=== PATIENT | male | born 1980 | race Caucasian/White ===

== ENCOUNTER → 2024-06-20 | Outpatient (CLI) | payer OTHER, SELFPAY ==
[2024-06-20 15:20] LABS: Absolute Neutrophil Count 1.8 X10^3/uL (2.0-7.7); Basophil# 0.05 X10^3/uL; Basophil% 1.4 % (0-1); Eosinophil# 0.27 X10^3/uL; Eosinophils% 7.5 % (0-5); Hematocrit 34.4 % (40-54); Hemoglobin 10.4 g/dL (13.0-16.5); Mean Corp Hgb Conc 30.2 g/dL (32-36); Mean Corpuscular Hgb 25.7 pg (27.0-32.0); Mean Corpuscular Volume 84.9 fL (80-94); Mean Platelet Vol. 10.5 fl (6.2-12.0); Monocyte% 16.7 % (0-10); NRBC Flagged by Analyzer 0 % (0-5); Neutrophil # 1.77 X10^3/uL (2.7-7.7); Neutrophil % 49.1 % (47-70); POSITIVE COUNT YES; Platelet Count 61 K/mm3 (150-450); RBC Distribution Width CV 18.6 % (11.6-14.6); RBC Distribution Width SD 56.8 fl (35.1-43.9); Red Blood Count 4.05 M/mm3 (4.6-6.2); White Blood Count 3.6 K/mm3 (4.4-11.0)
[2024-06-20 15:22] LABS: Differential Indicated SCAN CRITERIA MET
[2024-06-20 15:46] LABS: ALB/GLOB Ratio 0.5 RATIO (0.9-2.4); AST(SGOT) 51 U/L (15-37); Alanine Aminotransfer ALT/SGPT 38 U/L (16-61); Albumin, Serum 2.4 g/dL (3.2-5.0); Alkaline Phosphatase 130 U/L (45-117); Anion Gap 9 (5-15); BUN 6 mg/dL (7-18); BUN/Creat Ratio 10.8 RATIO (10-20); Calcium,Total 8.5 mg/dL (8.5-10.1); Chloride 106 mmol/L (98-107); Cholesterol 118 mg/dL (200); Creatinine, Serum 0.56 mg/dL (0.70-1.30); EST Glomerular Filtration Rate 168 mL/min (>60); Est Glom Filt Rate - Afr Amer 203 mL/min (>60); Globulin 4.4 g/dL (2.2-4.2); Glucose 107 mg/dL (74-106); High Density Lipoprotein 37 mg/dL; Potassium 3.4 mmol/L (3.5-5.1); Protein, Total 6.8 g/dL (6.4-8.2); Sodium Level 138 mmol/L (136-145); Triglycerides 98 mg/dL; Very Low Density Lipoprotein 20 mg/dL (5-40)
[2024-06-20 16:01] LABS: Differential Comment SCANNED
[2024-06-20 16:38] LABS: Hemoglobin A1c 6.6 % (3.8-5.6)
== END | disposition home or self-care (01) ==
LOC: MFPLAB 11:36
PROVIDERS: PCP Family Medicine; Visit Provider Family Medicine
DX: I87.8 Other specified disorders of veins (principal); E11.9 Type 2 diabetes mellitus without complications
CPT/HCPCS: 36415; 80053; 80061; 83036; 85025

== ENCOUNTER → 2025-04-29 | Outpatient (CLI) | payer BC, SELFPAY ==
[2025-04-29 12:41] LABS: Potassium 4.1 mmol/L (3.3-5.1)
== END | disposition home or self-care (01) ==
LOC: MFPLAB 10:56
PROVIDERS: PCP Family Medicine; Referring Provider Family Medicine; Visit Provider Family Medicine
DX: E87.6 Hypokalemia (principal)
CPT/HCPCS: 36415; 84132

== ENCOUNTER → 2025-07-19 | Outpatient (CLI) | payer BC, SELFPAY ==
--- NOTE | 2025-07-19 13:49 | VDLE_ITS ---
Reason For Study Reason For Study: Right leg pain RIGHT GSV is normal. CFV is compressible, spontaneous, phasic, competent and demonstrates normal augmentation. FV is compressible, spontaneous, phasic, competent and demonstrates normal augmentation. POP V is compressible, spontaneous, phasic, competent and demonstrates normal augmentation. T/P Trunk is compressible. PTV is compressible. RT PerV is compressible. Calf veins visualized in segments. Procedure This is a venous duplex using B-mode, color flow and spectral Doppler. Exam performed in department. Technically difficult to visualize calf veins due to patient body habitus. A preliminary report was called and/or faxed to Nadine ARGUETA. VL/Venous Duplex US, Unilateral Interpretation Summary Deep veins of the right lower extremity are patent and compressible segmentally . There is no evidence of right lower extremity deep vein thrombosis. Valvular competence appears intact within the p roximal deep venous system on the right . The right great saphenous vein appears patent and compressible segmentally. Ordering Physician: Yusef Mccoy Referring Physician: Alis Mace Performed By: Isabel Ruvalcaba RVT
[2025-07-19 16:32] LABS: D-Dimer Quantitative (DVT/PE) 2.09 FEU/ug/m (0.27-0.49)
== END | disposition home or self-care (01) ==
LOC: CVS 13:01
PROVIDERS: PCP Family Medicine
DX: M79.604 Pain in right leg (principal)
CPT/HCPCS: 36415; 85379; 93971

== ENCOUNTER 2025-07-21 09:08 | Inpatient (IN) | payer BC, SELFPAY ==
[2025-07-21] VITALS (9 sets, daily range): BP systolic 123–151; BP diastolic 49–63; PULSE 86–106; RESP 15–22; TEMP 36.9–37.6; O2SAT 91–99; BMI 54.1; BMI 52.0
--- NOTE | 2025-07-21 09:27 | EKG12_ITS ---
Test Reason : GENERAL Blood Pressure : */* mmHG Vent. Rate : 101 BPM Atrial Rate : 101 BPM P-R Int : 162 ms QRS Dur : 82 ms QT Int : 370 ms P-R-T Axes : 71 4 82 degrees QTcB Int : 479 ms Sinus tachycardia Nonspecific T wave abnormality Abnormal ECG Confirmed by Viet Henley ([id number]), market editor CARLITOS MORGAN ([id number]) on 07/22/2025 9:49:19 AM Referred By: Confirmed By: Viet Henley
--- NOTE | 2025-07-21 09:27 | CT_ITS ---
PROCEDURE: CTA CHEST W/WO CONTRAST 07/21/2025 REASON FOR EXAM: SOB, ELEVATED DIMER TECHNIQUE: Procedure Code: [id number] Modality: CT Procedure: CTA CHEST W/WO CONTRAST Multiplanar Sagittal and Coronal images were obtained. CONTRAST: Isovue 370 VOLUME: 100 mL One or more dose reduction techniques were used (e.g., Automated exposure control, adjustment of the mA and/or kV according to patient size, use of iterative reconstruction technique). RADIATION DOSE SUMMARY: CTDlvol: 62 mGy DLP: 1140 mGycm COMPARISON: None. # of known CTs in the past 12 months: 0 # of known Cardiac Nuclear Medicine Studies in the past 12 months: 0 FINDINGS: Thyroid gland: Negative. Lungs: Scattered ground-glass attenuation interstitial prominence both lungs. No pulmonary nodules or masses. Pleura: Negative for pleural effusion or pneumothorax. Airways: Imaged bronchi and trachea negative. Mediastinum: Several upper limits of normal aortopulmonary window lymph node. Subcarinal fullness 13 mm. No definitive hilar lesion. Lymph nodes: No axillary adenopathy. Heart and Vasculature: Pulmonary arteries adequately opacify with intra luminal contrast. No thrombus. Heart normal size. Negative for vascular calcifications of the thoracic aorta. Coronary Artery Calcifications: Mild vascular calcifications of the coronary arteries Upper Abdomen: Cirrhosis of the liver which is nodular and shrunken. Small amount of ascites. Hardware: None. Bones: Age-appropriate degenerative changes of the thoracic spine. CT/CTA Chest W/WO Contrast IMPRESSION: Negative for pulmonary embolus.. Mild interstitial edema. Mild mediastinal adenopathy. Cirrhosis. Reading Location: [id number]
--- OUTSIDE RECORDS SUMMARY | 2025-07-21 09:31 | XMS RPT_ITS | CCD ---
Author Organization [facility] Care Team Providers Care Roentgenologist Name Role Phone HUGO BNirav JNirav Referring Unavailable POMARIESNTS B. JNirav Attending Unavailable SHOZACK HOWE Primary Care Unavailable Zack Vigil MD Primary Care Provider Lala VILLALOBOS Attending Unavailable YAAKOVNTS B. JNirav Admitting Unavailable ZACK VIGIL Primary Care Unavailable Unavailable Primary Care Provider UnavailPAUL Blanton Attending Unavailab le SHOZACK HOWE Primary Care Unavailable Zack Vigil MD Primary Care Provider Zack Vigil MD Primary Care Provider Zack Vigil MD Primary Care Provider [phone] THOM ONEILL Referring Unavailable ZACK VIGIL Primary Care Unavailable TAD [id number], TAD OCHOA Attending Un available TAD [phone], TAD OCHOA Referring Un available SHOZACK HOWE Primary Care Unavailable VINCENT MOSES Attending Unavailable GAIBLEJONAS Referring Unavailable SHOAPSZACK Primary Care Unavailable Zack Vigil MD Primary Care Provider JOCELYNE TRACEY Attending Unavailable SHOZACK HOWE Primary Care Unavailable CARLOS JIMÉNEZ Referring Unavailable BISHOP LA Referring Unavailable SHOZACK HOWE Primary Care Unavailable BERNABE DOOLEY Attending Unavailable SHOZACK HOWE Primary Care Unavailable Zack Vigil MD Primary Care Provider Roland Chavez Unavailable Thom Oneill MD Unavailable ZACK VIGIL Attending Unavailable SHOAPSZACK Attending Unavailable SHOAPS, ZACK Attending Unavailable TESSIE, GOMEZ Attending Unavailable GOMEZ KURTZ Referring Unavailable MUSA, ZACK Attending Unavailable MUSA, ZACK Referring Unavailable Rk SANCHEZ, Fiona Unavailable Unavailgrover Mace MD, Alis Primary Care Provider Alis Mace MD Referring Provider Dr. Lorie Willson MD Attending Provider Alis Mace MD Attending Provider Alis Mace Primary Care Unavailable Lorie Willson Attending Unavailable Alis Mace Referring Unavailable Nakita, Alis Primary Care Unavailable Alis Mace Referring Unavailable Alis Mace Attending Unavailable Nakita, Alis Attending Unavailable Nakita, Alis Primary Care Unavailable Allergies Allergy Classification Reported Allergen(s) Allergy Type Date of Onset Reaction(s) Facility (2 sources) Spironolactone; Translations: [SPIRONOLACTONE] Drug Allergy 10-14-2023 [facility] Medications Current Medications Medication Drug Class(es) Dates Sig (Normalized) Sig (Original) atenolol 25 mg oral tablet (9 sources) beta-Adrenergic Apolinar Start: 08-24-2023 End: 12-08-2024 take 1 tablet by mouth once daily atenolol (Tenormin) 25 MG tablet Indications: Primary hypertension Take 1 tablet by mouth 1 time each day. 90 tablet 3 12/09/2023 12/08/2024 Active Start: 04-14-2022 End: 10-11-2022 take 1 tablet by mouth once daily atenoloL (TENORMIN) 25 mg tablet Take 1 tablet (25 mg total) by mouth 1 (one) time each day. 30 each 5 04/14/2022 Active diclofenac sodium 75 mg delayed release oral tablet (1 source) Nonsteroidal Anti-inflammatory Drug Start: 10-12-2023 take 1 tablet by mouth twice daily diclofenac sodium 75 mg tablet,delayed release take 1 tablet by oral route 2 times every day 75 MG - Active Diltiazem 10mg/Lidocaine 50mg Suppository 30 supp suppository (1 source) Start: 01-28-2025 Diltiazem 10mg/Lidocaine 50mg Suppository 30 supp suppository Active 0 RC .BID January 28, 2025 12:00am 10 mg diltiazem/ lidocaine 50% suppository rectally BID; diltiazem HCl (bulk) powder 300 mg; lidocaine (bulk) powder 1500 mg; Per 30 supp docusate sodium 100 mg oral capsule (1 source) Start: 04-22-2021 End: 04-29-2021 take 1 capsule by mouth twice daily docusate sodium (COLACE) 100 MG capsule Take 1 (one) capsule (100 mg total) by mouth 2 (two) times a day Stool softener Can get [id number] for 7 days . 14 capsule 0 04/22/2021 04/29/2021 Active ertugliflozin 15 mg oral tablet (9 sources) Start: 09-26-2023 take 1 tablet by mouth once daily Steglatro 15 mg tablet TAKE 1 TABLET BY MOUTH EVERY DAY FOR 90 DAYS - Active take 1 tablet by love th once daily in the morning ertugliflozin (Steglatro) 15 mg tablet T chon 15 mg by mouth 1 (one) time each day in the morning. 0 Active ertugliflozin (S teglatro) 5 mg Tab Indications: type 2 diabetes mellitus Take 5 mg by mouth every morning Reasons: type 2 diabetes mellitus. 0 Active ezetimibe 10 mg oral tablet (2 sources) Dietary Cholesterol Absorption Inhibitor Start: 08-09-2023 take 1 tablet by mouth once daily ezetimibe 10 mg tablet TAKE 1 TABLET BY MOUTH EVERY DAY FOR 90 DAYS - Active furosemide 40 mg oral tablet (12 sources) Loop Diuretic Start: 01-28-2025 take 1 tablet by mouth once daily Furosemide 40 mg tablet Active 40 mg PO daily January 28, 2025 12:00am Start: 07-02-2023 End: 10-08-2024 take 1 tablet by mouth once daily furosemide (Lasix) 20 MG tablet Indications: Essential (primary) hypertension Take 1 tablet by mouth 1 time each day. 90 tablet 3 10/14/2023 10/08/2024 Active Start: 04-14-2022 End: 04-14-2022 take 20 mg by mouth once daily 20 mg, oral, Daily, Fir st dose on Tue04/14/22 at 0900 Start: 03-17-2016 furosemide (LA SIX) 40 MG tablet daily with lunch . 0 03/17/2016 Active hydroCHLOROthiazide 25 mg / triamterene 37.5 mg oral tablet (10 sources) Potassium-sparing Diuretic, Thiazide Diuretic Start: 10-02-2023 triamterene 37.5 mg-hydrochlorothiazide 25 mg tablet - Active Start: 10-02-2023 take 1 tablet by love th once daily triamterene-hydrochlorothiazide (Maxzide -25) 37.5-25 MG tablet Take 1 tablet by mouth 1 time each day. 10/02/2023 Active Start: 04-14-2022 End: 04-14-2022 take 1 capsule by mouth once daily at lunch 1 capsule, oral, Daily with lunch, First dose on Tue04/14/22 at 1200 triamterene-hydr oCHLOROthiazide (MAXZIDE-25) 37.5-25 mg per tablet Take 1 tablet by mouth 1 (one) time each day. Hold am DOS 4-5 0 Active hydrOXYzine hydrochloride 25 mg oral tablet (9 sources) Antihistamine Start: 04-14-2022 End: 05-14-2022 take 1 tablet by mouth twice daily for anxiety hydrOXYzine HCL (ATARAX) 25 mg tablet Take 1 tablet (25 mg total) by mouth 2 (two) times a day if needed for anxiety. 30 each 0 04/14/2022 Active lisinopril 5 mg oral tablet (1 source) Angiotensin Converting Enzyme Inhibitor Start: 01-28-2025 take 1 tablet by mouth once daily Lisinopril 5 mg tablet Active 5 mg PO daily January 28, 2025 12:00am metFORMIN hydrochloride 1000 mg oral tablet (12 sources) Biguanide Start: 01-28-2025 take 1 tablet by mouth twice daily Metformin 1,000 mg tablet Active 1000 mg PO TWICE A DAY January 28, 2025 12:00am Start: 04-16-2022 End: 10-08-2024 take 1 tablet by mouth at mealtime metFORMIN (Glucophage) 1000 MG tablet Indications: Type 2 diabetes mellitus without complication, without long-term current use of insulin (CMS/HCC) ([facility]) Take 1 tablet by mouth in the morning. Take with meals. 90 tablet 3 10/14/2023 10/08/2024 Active Start: 04-16-2022 take 1 tablet by love th twice daily at mealtime metFORMIN (GLUCOPHAGE) 1,000 mg tablet Take 1 tablet (1,000 mg total) by mouth 2 (two) times a day with meals. Hold for [address] scan 0 04/16/2022 Active Start: 01-11-2016 End: 04-14-2022 metFORMIN (GLUCOPHAGE) 1000 MG tablet 2 (two) times a day with meals . 0 01/11/2016 Active Multiple Vitamins-Minerals ( One A Day Mens VitaCraves) chewable tablet (1 source) Multiple Vitamin s-Minerals (One A Day Mens VitaCraves) chewable tablet Chew 1 tablet 1 time each day. Active multivit-minerals/folic acid (ONE-A-DAY MEN VITACRAVES ORAL) (7 sources) take 1 capsule by mouth once daily in the morning multivit-minerals/folic acid (ONE-A-DAY MEN VITACRAVES ORAL) Take 1 capsule by mouth 1 (one) time each day in the morning. 0 Active take 1 capsule by mouth once nikole ly multivit-minerals/folic acid (ONE-A-DAY MEN VITACRAVES ORAL) Take 1 capsule by mouth 1 (one) time each day. 0 Active multivitamin (multivitamin) per tablet (1 source) take 1 tablet by mouth once daily multivitamin (multivitamin) per tablet Take 1 tablet by mouth daily . 0 Active omeprazole 40 mg delayed release oral capsule (10 sources) Proton Pump Inhibitor Start: take 1 capsule by mouth once daily 30 minutes before breakfast omeprazole 40 mg capsule,delayed release TAKE 1 CAPSULE BY MOUTH ONCE A DAY 30 MINUTES BEFORE BREAKFAST - Active 24 hr oxybutynin chloride 5 mg extended release oral tablet (1 source) Cholinergic Muscarinic Antagonist Start: 024 End: take 1 tablet by mouth once daily oxybutynin XL (Ditropan XL) 5 MG 24 hr tablet Indications: Overactive bladder Take 1 tablet by mouth 1 time each day. Do not crush, chew, or split. 30 tablet 11 11/22/2023 11/21/2024 Active oxyCODONE hydrochloride 5 mg oral tablet (2 sources) Opioid Agonist Start: End: 06-16-2 021 take 1 tablet by mouth every six hours as needed for pain oxyCODONE (ROXICODONE) 5 MG immediate release tablet Indications: Post-op pain Take 1 (one) tablet (5 mg total) by mouth every 6 (six) hours as needed (Post-operative pain) 7 days . 15 tablet 0 04/22/2021 04/29/2021 Active Start: 04-22-2021 End: 04-22-2021 oxyCODONE (ROXICODONE) 10 mg /0.5 mL concentrated solution 5 mg potassium chloride 20 meq extended release oral tablet (12 sources) Start: 01-28-2025 take 1 tablet by mouth once daily Potassium Chloride 20 mEq tablet extended release Active 20 meq PO daily January 28, 2025 12:00am Start: 07-02-2023 End: 10-13-2024 take 1 tablet by mouth once daily potassium chloride CR (K-Tab) 20 MEQ ER tablet Indications: Essential (primary) hypertension Take 1 tablet by mouth 1 time each day. 90 tablet 3 10/14/2023 10/13/2024 Active Start: 04-14-2022 End: 04-14-2022 20 mEq, oral, Daily, First d ose on Tue04/14/22 at 0900 Best given with food and plenty of water to minimize gastric irritation. Tablet may be swallowed whole (do not crush/chew/suck on) OR broken in half and each half swallowed separately OR dissolved (whole tablet) in ~4 ounces of water (allow ~2 minutes to dissolve, stir well and administer immediately). Start: 03-17-2016 potassium chlo ride (MICRO-K) 10 MEQ CR capsule 10 mEq daily with lunch . 0 03/17/2016 Active promethazine hydrochloride 25 mg oral tablet (6 sources) Phenothiazine End: 12-21-2022 promethazine (Phenergan) 25 MG tablet Take 25 mg by mouth if needed. Active sertraline 50 mg oral tablet (6 sources) Serotonin Reuptake Inhibitor Start: 07-30-2023 sertraline 50 mg tablet - Active SITagliptin 100 mg oral tablet (12 sources) Dipeptidyl Peptidase 4 Inhibitor Start: 01-28-2025 take 1 tablet by mouth once daily Sitagliptin Phosphate (Januvia) 100 mg tablet Active 100 mg PO daily January 28, 2025 12:00am Start: 08-24-2023 End: 12-08-2024 take 1 tablet by mouth once daily SITagliptin (Januvia) 100 MG tablet Indications: Type 2 diabetes mellitus without complication, without long-term current use of insulin (CMS/HCC) (HCC) Take 1 tablet by mouth 1 time each day. 90 tablet 3 12/09/2023 12/08/2024 Active Start: 02-01-2016 End: 04-14-2022 take 100 mg by mouth once daily at lunch 100 mg, oral, Daily with lunch, First dose on Tue04/14/22 at 1200 sodium fluoride 0.011 mg/mg toothpaste (1 source) Start: 12-23-2022 sodium fluorid e 1.1 % dental paste USE TWICE A DAY IN THE MORNING AND BEDTIME TOOTH PASTE - Active Completed/Discontinued Medications Medication Drug Class(es) Dates Sig (Normalized) Sig (Original) acetaminophen 325 mg oral tablet (2 sources) Start: 04-13-2022 End: 04-14-2022 take 1 tablet by mouth every six hours as needed 650 mg, oral, Every 6 hours PRN, mild pain, Starting on Tue04/13/22 at 2120 acetaminophen (T ylenol 8 Hour) 650 MG ER tablet Take 2 tablets by mouth if needed. Active [id number] 200 actuat albuterol 0.09 mg/actuat metered dose inhaler (1 source) beta2-Adrenergic Agonist Start: 12-29-2015 End: 04-17-2021 VENTOLIN HFA 90 mcg/actuation inhaler aspirin 325 mg oral tablet (1 source) Platelet Aggregation Inhibitor, Nonsteroidal Anti-inflammatory Drug Start: 04-13-2022 End: 04-13-2022 aspirin tablet 325 mg benzonatate 100 mg oral capsule (1 source) Non-narcotic Antitussive Start: 12-08-2015 End: 04-17-2021 benzonatate (TESSALON) 100 MG capsule calcium chloride 0.0014 meq/ml / potassium chloride 0.004 meq/ml / sodium chloride 0.103 meq/ml / sodium lactate 0.028 meq/ml injectable solution (1 source) Start: 04-22-2021 End: 04-22-2021 lactated Ringers infusion celecoxib 100 mg oral capsule (1 source) Nonsteroidal Anti-inflammatory Drug Start: 04-22-2021 End: 04-22-2021 celecoxib (CELEBREX) capsule 400 mg Start: 04-22-2021 End: 04-22-2021 celecoxib (CELEBREX) capsule 400 mg codeine phosphate 2 mg/ml / guaiFENesin 20 mg/ml oral solution (1 source) Opioid Agonist Start: 01-14-2016 End: 04-17-2021 IOPHEN C-NR 10-100 mg/5 mL syrup famotidine 40 mg oral tablet (1 source) Histamine-2 Receptor Antagonist Start: 03-18-2016 End: 04-17-2021 famotidine (PEPCID) 40 MG tablet 1 ml fentaNYL 0.05 mg/ml injection (1 source) Opioid Agonist Start: 04-22-2021 End: 04-22-2021 25 mcg, Intravenous, Every 5 min PRN, Pain, Starting on Tue04/22/21 at 0744, For 4 doses, PACU (only) [] Do not give more than 100 mcg while in PACU. homatropine methylbromide 0.3 mg/ml / HYDROcodone bitartrate 1 mg/ml oral solution (1 source) Opioid Agonist, Cholinergic Muscarinic Agonist Start: 12-19-2015 End: 04-17-2021 HYDROcodone-homatrop ine (HYCODAN) 5-1.5 mg/5 mL syrup 1 ml hydrALAZINE hydrochloride 20 mg/ml injection (1 source) Arteriolar Vasodilator Start: 04-22-2021 End: 04-22-2021 5 mg, Intravenous, Every 15 min PRN, SBP greater than 160 or DBP greater than 90, Starting on Tue04/22/21 at 0744, For 4 doses, PACU (only) [] Do not give more than 20 mg total. [] Hold for HR greater than 100. [] Administer if labetalol or metoprolol ineffective at maximum dose or not ordered. 0.5 ml HYDROmorphone hydrochloride 1 mg/ml prefilled syringe (1 source) Opioid Agonist Start: 04-22-2021 End: 04-22-2021 0.5 mg, Intravenous, Every 5 min PRN, Pain, Starting on Tue04/22/21 at 0744, For 6 doses, PACU (only) [] Give if fentanyl not effective or not ordered. [] Do not give more than 3 mg total. ibuprofen 800 mg oral tablet (2 sources) Nonsteroidal Anti-inflammatory Drug Start: 11-10-2015 End: 04-17-2021 ibuprofen (ADVIL,MOTRIN) 800 MG tablet End: 04-22-2021 take 1 tablet by mouth every six hours as needed for pain ibuprofen (ADVIL,MOTRIN) 200 MG tablet Indications: pain Take 200 mg by mouth every 6 (six) hours as needed for pain Reasons: pain. 0 04/22/2021 Discontinued (Stop Taking at Discharge) iopamidoL (ISOVUE-370) 76 % injection 100 mL (1 source) Start: 04-13-2022 End: 04-13-2022 iopamidoL (ISOVUE-370) 76 % injection 100 mL 4 ml labetalol hydrochloride 5 mg/ml cartridge (1 source) beta-Adrenergic Apolinar Start: 04-22-2021 End: 04-22-2021 5 mg, Intravenous, Every 5 min PRN, SBP greater than 160 or DBP greater than 90, Starting on Tue04/22/21 at 0744, For 4 doses, PACU (only) [] Do not give more than 20 mg total. [] Hold for HR less than 50. naloxone (NARCAN) injection 0.1 mg (1 source) Start: 04-22-2021 End: 04-22-2021 naloxone (NARCAN) injection 0.1 mg 2 ml ondansetron 2 mg/ml injection (1 source) Serotonin-3 Receptor Antagonist Start: 04-22-2021 End: 04-22-2021 4 mg, Intravenous, Every 15 min PRN, nausea, vomiting, Starting on Tue04/22/21 at 0744, For 2 doses, PACU (only) Do not give more than 2 doses. Administer first as needed for nausea/vomiting, or as directed by anesthesia ondansetron ODT (ZOFRAN-ODT) dispersible tablet 4 mg (1 source) Start: 04-13-2022 End: 04-14-2022 ondansetron ODT (ZOFRAN-ODT) dispersible tablet 4 mg pantoprazole 40 mg delayed release oral tablet (1 source) Proton Pump Inhibitor Start: 04-14-2022 End: 04-14-2022 take 40 mg by mouth once daily before breakfast 40 mg, oral, Every morning before breakfast, First dose on Tue04/14/22 at 0700 Do not crush, chew, or split. perflutren lipid microsphere (DEFINITY) 1.3 mL in sodium chloride 8.7 mL injection (1 source) Start: 04-14-2022 End: 04-14-2022 perflutren lipid microsphere (DEFINITY) 1.3 mL in sodium chloride 8.7 mL injection predniSONE 10 mg oral tablet (1 source) Start: 12-29-2015 End: 04-17-2021 predniSONE (DELTASONE) 10 MG tablet 1000 ml sodium chloride 9 mg/ml injection (4 sources) Start: 02-16-2023 End: 02-20-2023 sodium chloride 0.9 % infusion Start: 12-23-2022 End: 12-27-2022 sodium chloride 0.9 % infusi on Start: 10-27-2022 End: 10-31-2022 sodium chloride 0.9 % infusi on Start: 10-27-2022 End: 10-27-2022 sodium chloride 0.9 % infusi on - ADS Override Pull sulfamethoxazole 800 mg / trimethoprim 160 mg oral tablet (1 source) Dihydrofolate Reductase Inhibitor Antibacterial, Sulfonamide Antimicrobial Start: 03-17-2016 End: 04-17-2021 sulfamethoxazole-trimethopri m (BACTRIM DS,SEPTRA DS) 800-160 mg per tablet Problems Active Problems Problem Classification Problem Date Documented Da te Episodic/Chronic Abdominal pain (1 source) Right upper quadrant pain; Translations: [Right upper quadrant pain] Onset: 1 03-15-2021 Episodic Anal and rectal conditions (2 sources) Anal fissure; Translations: [Anal fissure, unspecified] 01-30-2025 Episodic Anxiety disorders (3 sources) Anxiety; Translations: [Anxiety disorder, unspecified] Onset: 2 11-22-2023 Chronic Coagulation and hemorrhagic disorders (3 sources) Thrombocytopenic disorder; Translations: [Thrombocytopenia, unspecified] Onset: 0 11-22-2023 Chronic Diabetes mellitus without complication (5 sources) Type 2 diabetes mellitus without complication; Translations: [Type 2 diabetes mellitus without complications] Onset: 0 03-22-2024 Chronic Disorders of lipid metabolism (4 sources) Hyperlipidemia; Translations: [Hyperlipidemia, unspecified] Onset: 0 03-22-2024 Chronic Esophageal disorders (8 sources) Esophageal varices without bleeding; Translations: [Esophageal varices without bleeding] Onset: 0 Resolved: 4 Chronic Essential hypertension (5 sources) Essential hypertension; Translations: [Essential (primary) hypertension] Onset: 0 03-22-2024 Chronic Fluid and electrolyte disorders (1 source) Hypokalemia; Translations: [Hypokalemia] Onset: 5 Episodic Gastrointestinal hemorrhage (2 sources) Bleeding esophageal varices; Translations: [Esophageal varices with bleeding] Onset: 2 Chronic Gastrointestinal hemorrhage (1 source) Rectal hemorrhage; Translations: [Hemorrhage of anus and rectum] 01-28-2025 Episodic Genitourinary symptoms and ill-defined conditions (2 sources) Painless hematuria; Translations: [Hematuria, unspecified] Onset: 3 09-25-2023 Episodic Hemorrhoids (1 source) Hemorrhoids; Translations: [Unspecified hemorrhoids] 01-28-2025 Episodic Hepatitis (5 sources) Nonalcoholic steatohepatitis; Translations: [Nonalcoholic steatohepatitis (GLASS)] Onset: 0 Chronic Other diseases of bladder and urethra (2 sources) Overactive bladder; Translations: [Overactive bladder] Onset: 4 11-22-2023 Chronic Other diseases of bladder and urethra (1 source) Overactive bladder; Translations: [Overactive bladder] Onset: 4 Chronic Other liver diseases (2 sources) Cirrhosis of liver; Translations: [Unspecified cirrhosis of liver] Onset: 0 03-22-2024 Chronic Other liver diseases (2 sources) Unspecified cirrhosis of liver; Translations: [Unspecified cirrhosis of liver] Onset: 4 Chronic Other nervous system disorders (1 source) Postoperative pain ; Translations: [Other acute postprocedural pain] Episodic Other nutritional; endocrine; and metabolic disorders (1 source) Body mass index 40+ - severely obese; Translations: [Body mass index (BMI) 45.0-49.9, adult] Chronic Past or Other Problems Problem Classification Problem Date Documented Date Episodic/Chronic Abdominal hernia (4 sources) Umbilical hernia; Translations: [Umbilical hernia without obstruction or gangrene] Onset: 03-15-2021 Resolved: 11-22-2023 Episodic Administrative/social admission (14 sources) Other reduced mobility Episodic Calculus of urinary tract (6 sources) Kidney stone; Translations: [Calculus of kidney] Onset: 03-16-2022 Resolved: 11-22-2023 Episodic E Codes: Fall (2 sources) Unspecified fall, initial encounter; Translations: [Unspecified fall, initial encounter] Onset: 12-17-2023 Episodic Miscellaneous mental health disorders (1 source) Impotence; Translations: [Male erectile disorder] Onset: 01-13-2022 Resolved: 11-22-2023 11-22-2023 Chronic Nonspecific chest pain (2 sources) Chest pain, unspecified; Translations: [Chest pain, unspecified] Onset: 11-22-2023 Episodic Other and unspecified benign neoplasm (1 source) Polyp of colon; Translations: [Polyp of colon] Onset: 11-22-2023 Resolved: 11-22-2023 11-22-2023 Episodic Other connective tissue disease (8 sources) Incomplete rotator cuff tear or rupture of left shoulder, not specified as traumatic Onset: 01-20-2024 Episodic Other connective tissue disease (4 sources) Impingement syndrome of left shoulder Onset: 10-12-2023 10-12-2023 Episodic Other connective tissue disease (18 sources) Unspecified rotator cuff tear or rupture of left shoulder, not specified as traumatic Onset: 10-12-2023 10-12-2023 Episodic Other connective tissue disease (14 sources) Muscle weakness (generalized) Episodic Other diseases of veins and lymphatics (1 source) Vascular insufficiency; Translations: [Venous insufficiency (chronic) (peripheral)] Onset: 08-21-2020 Resolved: 11-22-2023 11-22-2023 Episodic Other diseases of veins and lymphatics (1 source) Other specified disorders of veins; Translations: [Other specified disorders of veins] Onset: 12-03-2024 Episodic Other injuries and conditions due to external causes (2 sources) Injury of ribs; Translations: [Rib Injury] Onset: 12-16-2023 Episodic Other lower respiratory disease (8 sources) Dyspnea; Translations: [Dyspnea, unspecified] Onset: 04-13-2022 Episodic Other lower respiratory disease (2 sources) Pleurodynia; Translations: [Pleurodynia] Onset: 12-17-2023 Episodic Other non-traumatic joint disorders (14 sources) Stiffness of left shoulder, not elsewhere classified Episodic Other non-traumatic joint disorders (14 sources) Effusion, left shoulder Episodic Other nutritional; endocrine; and metabolic disorders (1 source) Morbid obesity; Translations: [Morbid (severe) obesity due to excess calories] Onset: 05-09-2020 Resolved: 11-22-2023 11-22-2023 Chronic Residual codes; unclassified (2 sources) Obstructive sleep apnea syndrome; Translations: [Obstructive sleep apnea (adult) (pediatric)] Onset: 02-11-2016 Resolved: 11-22-2023 02-11-2016 Chronic Results Test Name Value Interpretation Reference Range Facility Potassiumon 04-29-2025 Potassium [Moles/Vol] 4.1 mmol/L Normal 3.3-5.1 [facility] Comment on above: Order Comment: Order Date: 04/29/25 Order Info: [id number] - K Performed By: #### L [id number] #### [facility] [address] [place], [address] Potassium measurement (mass/ volume)Ordered By: Alis Mace on 04-29-2025 Potassium (Unsp spec) [Mass/Vol] 4.1 mmol/L 3.3-5.1 [facility] Surgery Visit Reporton 01-28 Surgery Visit Report [facility] [address] [place] [address] OFFICE VISIT Date of Service: 01/28/25 MR#: [id number] Acct: [id number] Name: LEON RIDER Rep #: [id number] : 1980 Provider: Dr. Lorie lim MD Age/Sex: 44/M Location: [facility] Status: Signed Intake Vital Signs 01/28/25 14:52 Height 5 ft 11 in Weight: 361 lb BMI 50.3 BP 140/82 H Blood Pressure Location Rt brachial Position Sitting Respiration 18 Pulse 82 Pulse Source Monitor Temp 97.6 F L Temp Source Temporal Pulse Oximetry (%) 97 Oxygen Delivery Method room air Intake Visit Reasons: RECTAL BLEEDING Chief Complaint: rectal bleeding Is patient in pain?: No Allergies No Known Allergies Allergy (Unverified 01/28/25 14:53) Medications ???Medication ???Instructions ???Recorded ???Confirmed ???Type Diltiazem 10mg/Lidocaine 50mg See Rx Instructions [place] .BID #30 01/28/25 Rx Suppository 30 supp suppository supp furosemide 40 mg tablet 40 mg PO QDAY 01/28/25 01/28/25 Hi story lisinopril 5 mg tablet 5 mg PO QDAY 01/28/25 01/28/25 His tory metformin 1,000 mg tablet 1,000 mg PO BID 01/28/25 01/28/25 History potassium chloride 20 mEq 20 meq PO QDAY 01/28/25 01/28/25 H istory tablet,extended release sitagliptin phosphate 100 mg 100 mg PO QDAY 01/28/25 01/28/25 H istory tablet (Januvia) [facility] Medical History (Updated 01/30/25 @ 12:[address] Lorie Willson MD) HTN (hypertension) Diabetes Acid reflux Rectal bleeding Hemorrhoids Surgical History (Updated 01/28/25 @ 14:44 by Erma Spaulding LPN) H/O umbilical hernia repair [place] teeth extracted Social History (Updated 01/28/25 @ 14:45 by Erma Spaulding LPN) Smoking Status: Never smoker alcohol intake: never substance use type: does not use HPI HPI HPI: 44-year-old male presents to bright red blood per rectum as well as sharp pain with bowel movements. Patient states he noticed this in December 2024. He had bright red blood with bowel movements as well as sharp pain with bowel movements. Patient does have a history of hemorrhoids previously. Patient did have a colonoscopy in 2021 in [place] states he may have had polyps at that time. Patient states he has bowel movements daily denies constipation. Does admit to staying on the toilet for prolonged periods of time. Patient did get [id number] treatment for hemorrhoids/fissures ???Dr. De Santiago's which is lidocaine which has helped with the discomfort. Patient has done occasional sitz bath's. ROS General General: No weight change, appetite, fatigue, colon cancer, breast cancer or weakness HEENT HEENT: No difficulty swallowing, eye injury, eye surgery, swollen glands or hoarseness Endo Endocrine: Yes diabetes mellitus; No thyroid disease, thyroid cancer, Hair loss, heat intolerance or cold intolerance Skin Skin: No rash or changing moles Musc Musculoskeletal: Yes back problems; No arthritis, rheumatoid arthritis, gout or joint pain Cardio Cardiovascular: Yes high blood pressure; No murmur, pacemaker, heart disease, atrial fibrillation, heart attack, heart stent, palpitations, shortness of breath with exertion or chest pain Psych Psychiatric: No depression, anxiety or hearing voices Resp Respiratory: Yes shortness of breath, Yes sleep apnea, Yes cough, No COPD, No asthma, No emphysema and No wheezing Gastro Gastrointestinal: No abdominal pain, Yes nausea or vomiting, No diarrhea, No constipation, No blood in stool, Yes acid reflux, Yes hemorrhoids, No ulcers, No gallbladder problem and No black,tarry stools Driss Hematologic: No blood thinners, No blood disorders, No bleeding, No anemia and No blood clots Neuro Neurologic: No numbness, No tingling and No weakness Exam Const General: cooperative, healthy appearing, comfortable and no acute distress HENMT Head: normocephalic and atraumatic Neck Neck: supple Resp Effort Inspection: normal respiratory effort Cardio Rate: regular rate GI Inspection: non-distended Palpation: soft Other: Rectal inspection posterior anal fissure at 12:00, SAMANTHA not done due to fissure no external hemorrhoids. Skin General: no rashes or lesions noted Neuro General: CN's II-XI intact bilaterally Extrem General: normal to inspection Psych Mental Status: mental status grossly normal Attitude: cooperative Assessment and Plan Assessment and Plan (1) Anal fissure: Status: Acute Medications: New Diltiazem 10mg/Lidocaine 50mg Suppository 10 mg diltiazem/ lidocaine 50% suppository rectally BID; diltiazem HCl (bulk) powder 300 mg; lidocaine (bulk) powder 1500 mg; Per 30 supp 30 supp 1RF Plan Discussed with patient would recommend avoiding prolonged times (more content not included)... Normal [facility] CBC W/Diff, Automatedon 08 SMEAR COMMENT SCANNED Normal [facility] Comment on above: Order Comment: Order Date: 06/20/24 Order Info: [id number] - CBCD Result Comment: THRO MBOCYTOPENIA NOTED Performed By: #### L 500.4100, L501.9985, L500.4050, L100.0100 #### [facility] [address] [place], [address] Comprehensive Metabolic Prof ilon 06-20-2024 Albumin [Mass/Vol] 2.4 g/dL Low 3.2-5.0 [facility] Comment on above: Order Comment: Order Date: 06/20/24 Order Info: [id number] - CMP Order Info: [id number] - LIPID Performed By: #### L 500.4100, L501.9985, L500.4050, L100.0100 #### [facility] [address] [place], [address] Albumin/Globulin [Mass ratio] 0.5 {ratio} Low 0.9-2.4 [facility] Comment on above: Order Comment: Order Date: 06/20/24 Order Info: [id number] - CMP Order Info: [id number] - LIPID Performed By: #### L 500.4100, L501.9985, L500.4050, L100.0100 #### [facility] [address] [place], [address] ALK P 130 U/L High 45-117 [facility] Comment on above: Order Comment: Order Date: 06/20/24 Order Info: [id number] - CMP Order Info: [id number] - LIPID Performed By: #### L 500.4100, L501.9985, L500.4050, L100.0100 #### [facility] [address] [place], [address] ALT [Catalytic activity/Vol] 38 U/L Normal 16-61 [facility] Comment on above: Order Comment: Order Date: 06/20/24 Order Info: [id number] - CMP Order Info: [id number] - LIPID Performed By: #### L 500.4100, L501.9985, L500.4050, L100.0100 #### [facility] [address] [place], [address] AST [Catalytic activity/Vol] 51 U/L High 15-37 [facility] Comment on above: Order Comment: Order Date: 06/20/24 Order Info: [id number]- - CMP Order Info: [id number] - LIPID Performed By: #### L 500.4100, L501.9985, L500.4050, L100.0100 #### [facility] [address] [place], [address] Bilirubin [Mass/Vol] 2.10 mg/dL High 0.20-1.00 [facility] Comment on above: Order Comment: Order Date: 06/20/24 Order Info: [id number]- - CMP Order Info: [id number] - LIPID Result Comment: For patients on eltrombopag therapy, use of Dimension [place] TBIL is not recommended. Performed By: #### L 500.4100, L501.9985, L500.4050, L100.0100 #### [facility] [address] [place], [address] BUN/CRE 10.8 RATIO Normal 10-20 [facility] Comment on above: Order Comment: Order Date: 06/20/24 Order Info: [id number] - CMP Order Info: [id number] - LIPID Performed By: #### L 500.4100, L501.9985, L500.4050, L100.0100 #### [facility] [address] [place], [address] CA,Total 8.5 mg/dL Normal 8.5-10.1 [facility] Comment on above: Order Comment: Order Date: 06/20/24 Order Info: [id number] - CMP Order Info: [id number] - LIPID Performed By: #### L 500.4100, L501.9985, L500.4050, L100.0100 #### [facility] [address] [place], [address] Chloride [Moles/Vol] 106 mmol/L Normal 98-107 [facility] Comment on above: Order Comment: Order Date: 06/20/24 Order Info: [id number] - CMP Order Info: [id number] - LIPID Performed By: #### L 500.4100, L501.9985, L500.4050, L100.0100 #### [facility] [address] [place], [address] CO2 [Moles/Vol] 23.0 mmol/L Normal 21.0-32.0 [facility] Comment on above: Order Comment: Order Date: 06/20/24 Order Info: [id number] - CMP Order Info: [id number] - LIPID Performed By: #### L 500.4100, L501.9985, L500.4050, L100.0100 #### [facility] [address] [place], [address] Creatinine [Mass/Vol] 0.56 mg/dL Low 0.70-1.30 [facility] Comment on above: Order Comment: Order Date: 06/20/24 Order Info: [id number] - CMP Order Info: [id number] - LIPID Result Comment: The validity of the calculated GFR GFRAA in patients over 70 years has not been determined. Clinical correlation is essential. Performed By: #### L 500.4100, L501.9985, L500.4050, L100.0100 #### [facility] [address] [place], [address] EST GFR - AA 203 mL/min Normal >60 [facility] Comment on above: Order Comment: Order Date: 06/20/24 Order Info: [id number] - CMP Order Info: [id number] - LIPID Result Comment: Afri can Latvian GFR Calc Performed By: #### L 500.4100, L501.9985, L500.4050, L100.0100 #### [facility] [address] [place], [address] GAP 9 Normal 5-15 [facility] Comment on above: Order Comment: Order Date: 06/20/24 Order Info: [id number]- - CMP Order Info: [id number] - LIPID Performed By: #### L 500.4100, L501.9985, L500.4050, L100.0100 #### [facility] [address] [place], [address] GFR/1.73 sq M.predicted among non-blacks MDRD (S/P/Bld) [Vol rate/Area] 168 mL/min/{1.73_m2} Normal >60 [facility] Comment on above: Order Comment: Order Date: 06/20/24 Order Info: [id number] - CMP Order Info: [id number] - LIPID Result Comment: Non- GFR Calc Performed By: #### L 500.4100, L501.9985, L500.4050, L100.0100 #### [facility] [address] [place], [address] Globulin (S) [Mass/Vol] 4.4 g/dL High 2.2-4.2 [facility] Comment on above: Order Comment: Order Date: 06/20/24 Order Info: [id number] - CMP Order Info: [id number] - LIPID Performed By: #### L 500.4100, L501.9985, L500.4050, L100.0100 #### [facility] [address] [place], [address] Glucose [Mass/Vol] 107 mg/dL High 74-106 [facility] Comment on above: Order Comment: Order Date: 06/20/24 Order Info: [id number] - CMP Order Info: [id number] - LIPID Result Comment: Fast ing Glucose result from 100 to 125 mg/dL suggests IMPAIRED HOMEOSTASIS per A.D.A. criteria. Performed By: #### L 500.4100, L501.9985, L500.4050, L100.0100 #### [facility] [address] [place], [address] Potassium [Moles/Vol] 3.4 mmol/L Low 3.5-5.1 [facility] Comment on above: Order Comment: Order Date: 06/20/24 Order Info: [id number] - CMP Order Info: [id number] - LIPID Performed By: #### L 500.4100, L501.9985, L500.4050, L100.0100 #### [facility] [address] [place], [address] Sodium [Moles/Vol] 138 mmol/L Normal 136-145 [facility] Comment on above: Order Comment: Order Date: 06/20/24 Order Info: [id number] - CMP Order Info: [id number] - LIPID Performed By: #### L 500.4100, L501.9985, L500.4050, L100.0100 #### [facility] [address] [place], [address] T PROT 6.8 g/dL Normal 6.4-8.2 [facility] Comment on above: Order Comment: Order Date: 06/20/24 Order Info: [id number] - CMP Order Info: [id number] - LIPID Performed By: #### L 500.4100, L501.9985, L500.4050, L100.0100 #### [facility] [address] [place], [address] Urea nitrogen [Mass/Vol] 6 mg/dL Low 7-18 [facility] Comment on above: Order Comment: Order Date: 06/20/24 Order Info: [id number] - CMP Order Info: [id number] - LIPID Performed By: #### L 500.4100, L501.9985, L500.4050, L100.0100 #### [facility] [address] [place], [address] Hemoglobin A1con 06-20-2024 HbA1c (Bld) [Mass fraction] 6.6 % High 3.8-5.6 [facility] Comment on above: Order Comment: Order Date: 06/20/24 Order Info: [id number] - A1C Result Comment: Norm al < 5.7 % Prediabetic 5.7 - 6.4 % Diabetic >or= 6.5 % Please note range changes. Performed By: #### L 500.4100, L501.9985, L500.4050, L100.0100 #### [facility] [address] [place], [address] Lipid Profileon 06-20-2024 Cholesterol [Mass/Vol] 118 mg/dL Normal 200 [facility] Comment on above: Order Comment: Order Date: 06/20/24 Order Info: [id number] - CMP Order Info: [id number] - LIPID Result Comment: <200 mg/dL Desirable 200-240 mg/dL Borderline >240 mg/dL High Risk Performed By: #### L 500.4100, L501.9985, L500.4050, L100.0100 #### [facility] [address] [place], [address] Cholesterol in HDL [Mass/Vol] 37 mg/dL Low [facility] Comment on above: Order Comment: Order Date: 06/20/24 Order Info: [id number] - CMP Order Info: [id number] - LIPID Result Comment: The drugs N-Acetylcysteine and Metamizole may falsely depress this assay. Reference Range HDL <40 mg/dL Low HDL Cholesterol HDL >or= 60 mg/dL High HDL Cholesterol Performed By: #### L 500.4100, L501.9985, L500.4050, L100.0100 #### [facility] [address] [place], [address] Cholesterol in LDL [Mass/Vol] 61 mg/dL Normal 0-130 [facility] Comment on above: Order Comment: Order Date: 06/20/24 Order Info: [id number] - CMP Order Info: [id number] - LIPID Performed By: #### L 500.4100, L501.9985, L500.4050, L100.0100 #### [facility] [address] [place], [address] Cholesterol in VLDL [Mass/Vol] 20 mg/dL Normal 5-40 [facility] Comment on above: Order Comment: Order Date: 06/20/24 Order Info: [id number] - CMP Order Info: [id number] - LIPID Performed By: #### L 500.4100, L501.9985, L500.4050, L100.0100 #### [facility] [address] [place], [address] Triglyceride [Mass/Vol] 98 mg/dL Normal [facility] Comment on above: Order Comment: Order Date: 06/20/24 Order Info: [id number] - CMP Order Info: [id number] - LIPID Result Comment: The drugs N-Acetylcysteine and Metamizole may falsely depress this assay. Serum Triglycerides Reference Interval Normal <150 mg/dL Borderline high 150 - 199 mg/dL High 200 - 499 mg/dL Very High > or = 500 mg/dL Performed By: #### L 500.4100, L501.9985, L500.4050, L100.0100 #### [facility] [address] [place], [address] BASIC METABOLIC PANELon 05-0 -2023 Anion gap [Moles/Vol] 7 mmol/L Normal 5-15 [facility] Comment on above: Order Comment: Locat ion: Performed By: #### L AB129, DLB521, UJD728, LAB15, LAB18, LAB20 #### LEON SLOAN ([id number]) [facility] ([facility]) [address] [facility], [address] [place] [address] B/C RATIO 10.0 Normal 10.0-28.6 [facility] Comment on above: Order Comment: Locat ion: Performed By: #### L AB129, RRL367, XOB466, LAB15, LAB18, LAB20 #### LEON SLOAN ([id number]) [facility] ([facility]) [address] [facility], [address] [place] [address] Calcium [Mass/Vol] 7.9 mg/dL Low 8.7-10.4 [facility] Comment on above: Order Comment: Locat ion: Performed By: #### L AB129, QRK411, KNZ292, LAB15, LAB18, LAB20 #### LEON SLOAN ([id number]) [facility] ([facility]) [address] [address] Chloride [Moles/Vol] 106 mmol/L Normal 98-107 [facility] Comment on above: Order Comment: Locat ion: Performed By: #### L AB129, SNY474, FNN479, LAB15, LAB18, LAB20 #### LEON SLOAN ([id number]) [facility] ([facility]) [address] [address] CO2 [Moles/Vol] 27 mmol/L Normal 20-31 [facility] Comment on above: Order Comment: Locat ion: Performed By: #### L AB129, BKA254, VBU708, LAB15, LAB18, LAB20 #### LEON SLOAN ([id number]) [facility] ([facility]) [address] [facility], [address] [place] [address] Creatinine [Mass/Vol] 0.6 mg/dL Low 0.7-1.3 [facility] Comment on above: Order Comment: Locat ion: Performed By: #### L AB129, DAV086, PNR412, LAB15, LAB18, LAB20 #### LEON SLOAN ([id number]) [facility] ([facility]) [address] [address] GFR 121.3 mL/min/1.73m*2 Normal >=60.0 [facility] Comment on above: Order Comment: Locat ion: Performed By: #### L AB129, NYY476, ZSI374, LAB15, LAB18, LAB20 #### LEON SLOAN ([id number]) [facility] ([facility]) [address] [facility], [address] [address] Glucose [Mass/Vol] 136 mg/dL High 74-106 [facility] Comment on above: Order Comment: Locat ion: Performed By: #### L AB129, DYY418, XEU203, LAB15, LAB18, LAB20 #### LEON SLOAN ([id number]) [facility] ([facility]) [address] [place] [address] Potassium [Moles/Vol] 3.6 mmol/L Normal 3.5-5.1 [facility] Comment on above: Order Comment: Locat ion: Performed By: #### L AB129, UXP035, YXF853, LAB15, LAB18, LAB20 #### LEON SLOAN ([id number]) [facility] ([facility]) [address] [place] [address] Sodium [Moles/Vol] 140 mmol/L Normal 136-145 [facility] Comment on above: Order Comment: Locat ion: Performed By: #### L AB129, LRN193, QVF646, LAB15, LAB18, LAB20 ###Tom SLOAN ([id number]) [facility] ([facility]) [address] [place] [address] Urea nitrogen [Mass/Vol] 6 mg/dL Low 9-23 [facility] Comment on above: Order Comment: Locat ion: Performed By: #### L AB129, KBO005, FVQ047, LAB15, LAB18, LAB20 #### LEON SLOAN ([id number]) [facility] ([facility]) [address] [place] [address] CBC WITH AUTO DIFFERENTIALon 03-20-2024 BASO # 0.1 K CUMM Normal 0.0-0.2 [facility] Comment on above: Order Comment: Locat ion: Performed By: #### Kathleen [id number], [id number] #### LEON SLOAN ([id number]) [facility] ([facility]) [address] [address] Basophils/100 WBC (Bld) 1.8 % Normal 0.0-3.0 [facility] Comment on above: Order Comment: Locat ion: Performed By: #### Kathleen CHING, [id number] #### LEON SLOAN ([id number]) [facility] ([facility]) [address] [address] Eosinophils (Bld) [#/Vol] 0.27 10*3/uL Normal 0.00-0.4 0 [facility] Comment on above: Order Comment: Locat ion: Performed By: #### Kathleen CHING, [id number] #### LEON SLOAN ([id number]) [facility] ([facility]) [address] [place] [address] Eosinophils/100 WBC (Bld) 5.9 % Normal 0.0-7.0 [facility] Comment on above: Order Comment: Locat ion: Performed By: #### Kathleen [id number], [id number] #### LEON SLOAN ([id number]) [facility] ([facility]) [address] [place] [address] Erythrocyte distribution width (RBC) [Ratio] 18.3 % High 11.5-15.5 [facility] Comment on above: Order Comment: Locat ion: Performed By: #### Kathleen [id number], [id number] #### LEON SLOAN ([id number]) [facility] ([facility]) [address] [place] [address] Hematocrit (Bld) [Volume fraction] 34.2 % Low 42.0-52.0 [facility] Comment on above: Order Comment: Locat ion: Performed By: #### L [id number], [id number] #### LEON SLOAN ([id number]) [facility] ([facility]) [address] [address] Hemoglobin (Bld) [Mass/Vol] 10.8 g/dL Low 13.5-18.0 [facility] Comment on above: Order Comment: Locat ion: Performed By: #### Kathleen CHING, [id number] #### LEON SLOAN ([id number]) [facility] ([facility]) [address] [place] [address] IMMGRN# 0.0 K CUMM Normal 0.0-0.3 [facility] Comment on above: Order Comment: Locat ion: Performed By: #### Kathleen CHING, [id number] #### LEON SLOAN ([id number]) [facility] ([facility]) [address] [place] [address] IMMGRN% 0.2 % Normal 0.0-3.0 [facility] Comment on above: Order Comment: Locat ion: Performed By: #### Kathleen CHING, [id number] #### LEON SLOAN ([id number]) [facility] ([facility]) [address] [place] [address] LYMPH # 1.1 K CUMM Normal 0.7-4.5 [facility] Comment on above: Order Comment: Locat ion: Performed By: #### Kathleen CHING, [id number] #### LEON SLOAN ([id number]) [facility] ([facility]) [address] [place] [address] Lymphocytes/100 WBC (Bld) 23.2 % Normal 14.0-46.0 [facility] Comment on above: Order Comment: Locat ion: Performed By: #### Kathleen [id number], [id number] #### LEON SLOAN ([id number]) [facility] ([facility]) [address] [place] [address] MCH (RBC) [Entitic mass] 27.8 pg Normal 27.0-31.0 [facility] Comment on above: Order Comment: Locat ion: Performed By: #### Kathleen CHING, [id number] #### LEON SLOAN ([id number]) [facility] ([facility]) [address] [place] [address] MCHC (RBC) [Mass/Vol] 31.6 g/dL Low 32.0-36.0 [facility] Comment on above: Order Comment: Locat ion: Performed By: #### Kathleen CHING, [id number] #### LEON SLOAN ([id number]) [facility] ([facility]) [address] [place] [address] MCV (RBC) [Entitic vol] 87.9 fL Normal 78.0-100.0 [facility] Comment on above: Order Comment: Locat ion: Performed By: #### Kathleen CHING, [id number] #### LEON SLOAN ([id number]) [facility] ([facility]) [address] [place] [address] MONO # 0.8 K CUMM Normal 0.1-1.0 [facility] Comment on above: Order Comment: Locat ion: Performed By: #### Kathleen CHING, [id number] #### LEON SLOAN ([id number]) [facility] ([facility]) [address] [place] [address] Monocytes/100 WBC (Bld) 16.6 % High 4.0-13.0 [facility] Comment on above: Order Comment: Locat ion: Performed By: #### Kathleen [id number], [id number] #### LEON SLOAN ([id number]) [facility] ([facility]) [address] [place] [address] ELISEO # 2.4 K CUMM Normal 1.8-7.8 [facility] Comment on above: Order Comment: Locat ion: Performed By: #### Kathleen [id number], [id number] #### LEON SLOAN ([id number]) [facility] ([facility]) [address] [address] Neutrophils/100 WBC (Bld) 52.3 % Normal 40.0-74.0 [facility] Comment on above: Order Comment: Locat ion: Performed By: #### L [id number], [id number] #### LEON SLOAN ([id number]) [facility] ([facility]) [address] [address] Nucleated RBC/100 WBC (Bld) [Ratio] 0.0 % Normal 0.0-0.9 [facility] Comment on above: Order Comment: Locat ion: Performed By: #### Kathleen CHING, [id number] #### LEON SLOAN ([id number]) [facility] ([facility]) [address] [place] [address] Platelet mean volume (Bld) [Entitic vol] 10.8 fL Normal 8.9-12.6 [facility] Comment on above: Order Comment: Locat ion: Performed By: #### Kathleen [id number], [id number] #### LEON SLOAN ([id number]) [facility] ([facility]) [address] [place] [address] PLT 75 K CUMM Low 130-400 [facility] Comment on above: Order Comment: Locat ion: Performed By: #### Kathleen [id number], [id number] #### LEON SLOAN ([id number]) [facility] ([facility]) [address] [place] [address] RBC 3.9 M CUMM Low 4.2-5.8 [facility] Comment on above: Order Comment: Locat ion: Performed By: #### L [id number], [id number] #### LEON SLOAN ([id number]) [facility] ([facility] [facility] [address] [place] [address] WBC 4.6 K CUMM Normal 3.8-10.6 [facility] Comment on above: Order Comment: Locat ion: Performed By: #### L [id number], [id number] #### LEON SLOAN ([id number]) [facility] ([facility]) [address] [facility], [address] [place] [address] HEPATIC PANELon 03-20-2024 Albumin [Mass/Vol] 2.8 g/dL Low 3.2-4.8 [facility] Comment on above: Order Comment: Locat ion: Performed By: #### L AB129, [id number], UQK702, LAB15, LAB18, LAB20 #### LEON SLOAN ([id number]) [facility] ([facility]) [address] [facility], [address] [address] ALP [Catalytic activity/Vol] 146 U/L High 40-127 [facility] Comment on above: Order Comment: Locat ion: Performed By: #### L AB129, FSU817, GFW474, LAB15, LAB18, LAB20 #### LEON SLOAN ([id number]) [facility] ([facility]) [address] [address] ALT [Catalytic activity/Vol] 56 U/L High 10-49 [facility] Comment on above: Order Comment: Locat ion: Performed By: #### L AB129, VDL375, VJK902, LAB15, LAB18, LAB20 ###Tom SLOAN ([id number]) [facility] ([facility]) [address] [facility], [address] [address] AST [Catalytic activity/Vol] 68 U/L High <=34 [facility] Comment on above: Order Comment: Locat ion: Performed By: #### L AB129, BVA096, QSN741, LAB15, LAB18, LAB20 #### LEON SLOAN ([id number]) [facility] ([facility]) [address] [place] [address] BILI (INDIRECT) 1.7 mg/dL High 0.0-1.1 [facility] Comment on above: Order Comment: Locat ion: Performed By: #### L AB129, AUS995, LNL270, LAB15, LAB18, LAB20 #### LEON SLOAN ([id number]) [facility] ([facility]) [address] [facility], [address] [place] [address] Bilirubin [Mass/Vol] 3.0 mg/dL High 0.3-1.2 [facility] Comment on above: Order Comment: Locat ion: Performed By: #### L AB129, GPZ959, PNX265, LAB15, LAB18, LAB20 #### LEON SLOAN ([id number]) [facility] ([facility]) [address] [facility], [address] [address] Bilirubin.direct [Mass/Vol] 1.3 mg/dL High <=0.4 [facility] Comment on above: Order Comment: Locat ion: Performed By: #### L AB129, WMA584, RWM202, LAB15, LAB18, LAB20 #### LEON SLOAN ([id number]) [facility] ([facility]) [address] [address] Protein [Mass/Vol] 6.6 g/dL Normal 5.7-8.2 [facility] Comment on above: Order Comment: Locat ion: Performed By: #### L AB129, MOB841, FAE341, LAB15, LAB18, LAB20 #### LEON SLOAN ([id number]) [facility] ([facility]) [address] [address] [id number] 03-20-2024 HbA1c (Bld) [Mass fraction] 6.9 % High 0.0-5.6 [facility] Comment on above: Order Comment: Locat ion: Result Comment: Refe rence Interval: Normal: below 5.7% Prediabetes: 5.7% to 6.4% Diabetes: 6.5% or above Performed By: #### L AB90 #### LEON SLOAN ([id number]) [facility] ([facility]) [address] [place] [address] LIPID PANELon 03-20-2024 CHOL/HDL RATIO 5.0 High <=4.0 [facility] Comment on above: Order Comment: Locat ion: Performed By: #### L AB129, TPA797, MEZ051, LAB15, LAB18, LAB20 #### LEON SLOAN ([id number]) [facility] ([facility]) [address] [facility], [address] [address] Cholesterol [Mass/Vol] 134 mg/dL Normal <=[address] [facility] COPCP Comment on above: Order Comment: Locat ion: Result Comment: Low- risk levels (desirable) < 200 mg/dL Moderate-risk levels (borderline) 200 to 239 mg/dL High-risk levels > or = 240 mg/dL Performed By: #### L AB129, JTK564, FZV912, LAB15, LAB18, LAB20 #### LEON SLOAN ([id number]) [facility] ([facility]) [address] [place] [address] Cholesterol in HDL [Mass/Vol] 27 mg/dL Low >60 [facility] Comment on above: Order Comment: Locat ion: Performed By: #### L AB129, YCX521, REO248, LAB15, LAB18, LAB20 #### LEON SLOAN ([id number]) [facility] ([facility]) [address] [address] Cholesterol in LDL [Mass/Vol] 84 mg/dL Normal <=130 [facility] Comment on above: Order Comment: Locat ion: Performed By: #### L AB129, OYO961, JRH374, LAB15, LAB18, LAB20 #### LEON SLOAN ([id number]) [facility] ([facility]) [address] [address] NON-HDL CHOL 107 Normal [facility] Comment on above: Order Comment: Locat ion: Result Comment: LDL and Non-HDL goal dependent upon individual risk Performed By: #### L AB129, KSM859, QFO286, LAB15, LAB18, LAB20 #### LEON SLOAN ([id number]) [facility] ([facility]) [address] [address] Triglyceride [Mass/Vol] 114 mg/dL Normal <=150 [facility] Comment on above: Order Comment: Locat ion: Performed By: #### L AB129, JSF102, FCN988, LAB15, LAB18, LAB20 #### LEON SLOAN ([id number]) [facility] ([facility]) [address] [facility], [address] [place] [address] VLDL-CALC 22.8 mg/dl Normal 0-30 [facility] Comment on above: Order Comment: Locat ion: Performed By: #### L AB129, XWC369, ZYI790, LAB15, LAB18, LAB20 #### LEON SLOAN ([id number]) [facility] ([facility]) [address] [facility], [address] [address] MAGNESIUMon 03-20-2024 Magnesium [Mass/Vol] 1.7 mg/dL Normal 1.6-2.6 [facility] Comment on above: Order Comment: Locat ion: Performed By: #### L AB129, UHT418, BYN071, LAB15, LAB18, LAB20 #### LEON SLOAN ([id number]) [facility] ([facility]) [address] [facility], [address] [address] PHOSPHORUSon 03-20-2024 Phosphate [Mass/Vol] 2.9 mg/dL Normal 2.4-5.1 [facility] Comment on above: Order Comment: Locat ion: Performed By: #### L AB129, VYO155, XVY300, LAB15, LAB18, LAB20 #### LEON SLOAN ([id number]) [facility] ([facility]) [address] [facility], [address] [place] [address] SLIDE SCAN IF INDICATEDon COMMENT Normocytic/Normochro carol Normal [facility] Comment on above: Order Comment: Locat ion: Performed By: #### L [id number], [id number] #### LEON SLOAN ([id number]) [facility] ([facility]) [address] [facility], [facility] [address] [place] [address] PLATELET ESTIMATE Decreased Abnormal Adequate [facility] Comment on above: Order Comment: Locat ion: Performed By: #### L [id number], [id number] #### LEON SLOAN ([id number]) [facility] ([facility]) [address] [facility], [address] [place] [address] TSHon 03-20-2024 TSH 0.879 MIU/mL Normal 0.550-4.78 0 [facility] Comment on above: Order Comment: Locat ion: Performed By: #### L AB129, PVY674, IRQ759, LAB15, LAB18, LAB20 #### LEON SLOAN ([id number]) [facility] ([facility]) [address] [facility] [place] [address] CT ABDOMEN PELVIS WO CONTRAS Ton 09-25-2023 CT ABDOMEN PELVIS WO CONTRAST EXAMINATION TYPE: CT ABDOMEN PELVIS WO CONTRAST DATE OF EXAM ORDERED: 09/25/2023 1:44 AM HISTORY: Renal mass suspected Flank pain, kidney stone suspected COMPARISON: 11/08/2019 TECHNIQUE: CT abdomen and pelvis without contrast FINDINGS: The heart size is within normal limits. Included portions of the lung bases are clear. There is a nodular contour of the liver consistent with cirrhosis. No intrahepatic biliary duct dilation is present. The spleen is enlarged. No focal pancreatic abnormality is identified. The adrenals are unremarkable. No acute renal abnormality is identified no hydronephrosis or ureteral stone is present. There is no evidence of bowel obstruction. No free air or free fluid is present in the abdomen or pelvis. Mildly prominent right lower quadrant lymph nodes are similar to the prior examination. Prominent collateral veins are present in the left upper quadrant likely related to portal hypertension. These are increased compared to the prior examination. Gastric and esophageal varices are also present. Mild scattered atherosclerosis is present. No acute bony abnormality is identified. Degenerative changes are present in the lower lumbar spine. IMPRESSION: No acute inflammatory process identified in the abdomen or pelvis. Cirrhotic morphology of the liver. Splenomegaly and prominent collateral veins in the left upper quadrant consistent with portal hypertension. These findings have worsened since the prior examination. Esophageal and gastric varices are also present. Mildly enlarged right lower quadrant lymph nodes, similar to the prior examination. -------- FINAL REPORT -------- Dictated By: Tal Hadley Dictated Date: 09/25/2023 02:17 Assigned Physician: Tal Hadley Reviewed and Electronically Signed By: Tal Hadley Signed Date: 09/25/2023 02:23 Workstation ID: [id number] Transcribed By: Self Edit Transcribed Date: 09/25/2023 02:17 Normal [facility] [address] Pelvis limited WO contras ton 09-25-2023 No acute inflammatory process identified in the abdomen or pelvis. Cirrhotic morphology of the liver. Splenomegaly and prominent collateral veins in the left upper quadrant consistent with portal hypertension. These findings have worsened since the prior examination. Esophageal and gastric varices are also present. Mildly enlarged right lower quadrant lymph nodes, similar to the prior examination. -------- FINAL REPORT -------- Dictated By: Tal Hadley Dictated Date: 09/25/2023 02:17 Assigned Physician: Tal Hadley Reviewed and Electronically Signed By: Tal Hadley Signed Date: 09/25/2023 02:23 Workstation ID: [id number] Transcribed By: Self Edit Transcribed Date: 09/25/2023 02:17 POWERSCRIBE EXAMINATION TYPE: CT ABDOMEN PELVIS WO CONTRAST DATE OF EXAM ORDERED: 09/25/2023 1:44 AM HISTORY: Renal mass suspected Flank pain, kidney stone suspected COMPARISON: 11/08/2019 TECHNIQUE: CT abdomen and pelvis without contrast FINDINGS: The heart size is within normal limits. Included portions of the lung bases are clear. There is a nodular contour of the liver consistent with cirrhosis. No intrahepatic biliary duct dilation is present. The spleen is enlarged. No focal pancreatic abnormality is identified. The adrenals are unremarkable. No acute renal abnormality is identified no hydronephrosis or ureteral stone is present. There is no evidence of bowel obstruction. No free air or free fluid is present in the abdomen or pelvis. Mildly prominent right lower quadrant lymph nodes are similar to the prior examination. Prominent collateral veins are present in the left upper quadrant likely related to portal hypertension. These are increased compared to the prior examination. Gastric and esophageal varices are also present. Mild scattered atherosclerosis is present. No acute bony abnormality is identified. Degenerative changes are present in the lower lumbar spine. POWERSCRIBE Tal Hadley MD - 09/25/2023 EXAMINATION TYPE: CT ABDOMEN PELVIS WO CONTRAST DATE OF EXAM ORDERED: 09/25/2023 1:44 AM HISTORY: Renal mass suspected Flank pain, kidney stone suspected COMPARISON: 11/08/2019 TECHNIQUE: CT abdomen and pelvis without contrast FINDINGS: The heart size is within normal limits. Included portions of the lung bases are clear. There is a nodular contour of the liver consistent with cirrhosis. No intrahepatic biliary duct dilation is present. The spleen is enlarged. No focal pancreatic abnormality is identified. The adrenals are unremarkable. No acute renal abnormality is identified no hydronephrosis or ureteral stone is present. There is no evidence of bowel obstruction. No free air or free fluid is present in the abdomen or pelvis. Mildly prominent right lower quadrant lymph nodes are similar to the prior examination. Prominent collateral veins are present in the left upper quadrant likely related to portal hypertension. These are increased compared to the prior examination. Gastric and esophageal varices are also present. Mild scattered atherosclerosis is present. No acute bony abnormality is identified. Degenerative changes are present in the lower lumbar spine. IMPRESSION: No acute inflammatory process identified in the abdomen or pelvis. Cirrhotic morphology of the liver. Splenomegaly and prominent collateral veins in the left upper quadrant consistent with portal hypertension. These findings have worsened since the prior examination. Esophageal and gastric varices are also present. Mildly enlarged right lower quadrant lymph nodes, similar to the prior examination. -------- FINAL REPORT -------- Dictated By: Tal Hadley Dictated Date: 09/25/2023 02:17 Assigned Physician: Tal Hadley Reviewed and Electronically Signed By: Tal Hadley Signed Date: 09/25/2023 02:23 Workstation ID: [id number] Transcribed By: Self Edit Transcribed Date: 09/25/2023 02:17 [facility] Radiology Study observation (narrative) [facility] CT Pelvis limited WO contras tOrdered By: Tal Hadley on 09-25-2023 [facility] Work Phone: PT Coag (PPP) [Time]on 09-25 aPTT Coag (Bld) [Time] 34.7 s Normal 23.3-35.3 [facility] Comment on above: Order Comment: The r ecommended therapeutic INR range for most cardiac indications is 2.0-3.0 For high intensity therapy (i.e. mechanical heart valves), the recommended range is 2.5-3.5 Performed By: #### 5 902-2 #### [facility] [address] [place] [address] INR Coag (PPP) [Relative time] 1.5 {INR} NINF - 5.0 [facility] Interpretation and review of laboratory results Abnormal [facility] PT Coag (Bld) [Time] 17.6 s High [facility] The recommended therapeutic INR range for most cardiac indications is 2.0-3.0 For high intensity therapy (i.e. mechanical heart valves), the recommended range is 2.5-3.5 [facility] aPTT Coag (Bld) [Time]on aPTT Coag (PPP) [Time] 34.7 s Tr [facility] Interpretation and review of laboratory results Normal Gia Francisco alth [facility] Basic metabolic 2000 panelon 09-24-2023 Anion gap [Moles/Vol] 6 mmol/L Normal 6-18 [facility] Comment on above: Performed By: #### 2 4321-2 #### [facility] [address] [place] [address] Calcium [Mass/Vol] 9.3 mg/dL Normal 8.9-10.3 [facility] Comment on above: Performed By: #### 2 4321-2 #### [facility] [address] [place] [address] Chloride [Moles/Vol] 101 mmol/L Normal 98-107 [facility] Comment on above: Performed By: #### 2 4321-2 #### [facility] [address] [place] [address] CO2 [Moles/Vol] 27 mmol/L Normal 22-32 [facility] Comment on above: Performed By: #### 2 4321-2 #### [facility] [address] [place] [address] Creatinine [Mass/Vol] 0.64 mg/dL Normal 0.60-1.30 [facility] Comment on above: Performed By: #### 2 4321-2 #### [facility] [place] [address] GFR/1.73 sq M.predicted among non-blacks MDRD (S/P/Bld) [Vol rate/Area] 119 mL/min/{1.73_m2} Normal >=60 [facility] Comment on above: Result Comment: Calc ulation based on the?Chronic Kidney Disease Epidemiology Collaboration (CKD-EPI) equation refit?without adjustment for race. Performed By: #### 2 4321-2 #### [facility] [address] [place] [address] Glucose [Mass/Vol] 178 mg/dL High 70-99 [facility] Comment on above: Performed By: #### 2 4321-2 #### [facility] [address] [place] [address] Potassium [Moles/Vol] 4.0 mmol/L Normal 3.6-5.1 [facility] Comment on above: Performed By: #### 2 4321-2 #### [facility] [address] [place] [address] Sodium [Moles/Vol] 134 mmol/L Low 136-145 [facility] Comment on above: Performed By: #### 2 4321-2 #### [facility] [address] [place] [address] Urea nitrogen [Mass/Vol] 8 mg/dL Normal 8-20 [facility] Comment on above: Performed By: #### 2 4321-2 #### [facility] [address] [place] [address] Urea nitrogen/Creatinine [Mass ratio] 12.5 mg/mg Normal 12.0-20.0 [facility] Comment on above: Performed By: #### 2 4321-2 #### [facility] [address] [place] [address] Anion gap [Moles/Vol] 6 mmol/L 6 - 18 Tri [facility] Calcium [Mass/Vol] 9.3 mg/dL 8.9 - 10. 3 mg/dL [facility] Chloride [Moles/Vol] 101 mmol/L 98 - 10 7 mmol/L [facility] CO2 [Moles/Vol] 27 mmol/L 22 - 32 mmol/L [facility] Creatinine [Mass/Vol] 0.64 mg/dL 0.60 - 1.30 mg/dL [facility] GFR/1.73 sq M.predicted among non-blacks MDRD (S/P/Bld) [Vol rate/Area] 119 mL/min/{1.73_m2} - PINF T [facility] Comment on above: Calculation based on the Chronic Kidney Disease Epidemiology Collaboration (CKD-EPI) equation refit without adjustment for race. Glucose [Mass/Vol] 178 mg/dL High 70 - 99 mg/dL [facility] Interpretation and review of laboratory results Abnormal [facility]th Potassium [Moles/Vol] 4.0 mmol/L 3.6 - 5.1 mmol/L [facility] Sodium [Moles/Vol] 134 mmol/L Low 136 - 145 mmol/L [facility] Urea nitrogen [Mass/Vol] 8 mg/dL 8 - 20 mg/dL [facility] Urea nitrogen/Creatinine [Mass ratio] 12.5 mg/mg 12.0 - 20.0 [facility] Hemogram and platelets WO di fferential panel (Bld)on 09-24-2023 Basophils (Bld) [#/Vol] 0.07 10*3/uL Normal 0.00-0.20 [facility] Comment on above: Performed By: #### 2 4317-0 #### [facility] [address] [place] [address] Basophils/100 WBC (Bld) 1.6 % Normal 0.0-2.0 [facility] Comment on above: Performed By: #### 2 4317-0 #### [facility] [address] [place] [address] Eosinophils (Bld) [#/Vol] 0.23 10*3/uL Normal 0.00-0.7 0 [facility] Comment on above: Performed By: #### 2 4317-0 #### [facility] [address] [place] [address] Eosinophils/100 WBC (Bld) 5.4 % Normal 0.0-7.0 [facility] Comment on above: Performed By: #### 2 4316-0 #### [facility] [address] [place] [address] Erythrocyte distribution width (RBC) [Ratio] 18.4 % High 11.0-14.8 [facility] Comment on above: Performed By: #### 2 7-0 #### [facility] [address] [place] [address] Hematocrit (Bld) [Volume fraction] 38.5 % Low 39.0-49.0 [facility] Comment on above: Performed By: #### 2 7-0 #### [facility] [address] [place] [address] Hemoglobin (Bld) [Mass/Vol] 12.7 g/dL Low 13.5-17.5 [facility] Comment on above: Performed By: #### 2 7-0 #### [facility] [address] [place] [address] Immature granulocytes (Bld) [#/Vol] 0.01 10*3/uL Normal 0.00-0.10 [facility] Comment on above: Performed By: #### 2 4317-0 #### [facility] [address] [place] [address] Immature granulocytes/100 WBC (Bld) 0.2 % Normal 0.0-1.2 [facility] Comment on above: Performed By: #### 2 4317-0 #### [facility] [address] [place] [address] Lymphocytes (Bld) [#/Vol] 1.14 10*3/uL Normal 1.00-4.8 0 [facility] Comment on above: Performed By: #### 2 4317-0 #### [facility] [address] [place] [address] Lymphocytes/100 WBC (Bld) 26.8 % Normal 17.9-49.6 [facility] Comment on above: Performed By: #### 2 7-0 #### [facility] [address] [place] [address] MCH 28.9 pcg Normal 27.0-34.0 [facility] Comment on above: Performed By: #### 2 4316-0 #### [facility] [address] [place] [address] MCHC (RBC) [Mass/Vol] 33.0 g/dL Normal 30.8-35.3 [facility] Comment on above: Performed By: #### 2 7-0 #### [facility] [address] [place] [address] MCV (RBC) [Entitic vol] 87.5 fL Normal 80.0-97.0 [facility] Comment on above: Performed By: #### 2 4317-0 #### [facility] [address] [place] [address] Monocytes (Bld) [#/Vol] 0.73 10*3/uL Normal 0.00-0.90 [facility] Comment on above: Performed By: #### 2 4317-0 #### [facility] [address] [place] [address] Monocytes/100 WBC (Bld) 17.1 % Normal 4.0-23.0 [facility] Comment on above: Performed By: #### 2 4317-0 #### [facility] [address] [place] [address] Neutrophils Absolute 2.08 K/mcL Normal 1.80-7.70 Moun t [facility] Comment on above: Performed By: #### 2 4317-0 #### [facility] [address] [place] [address] Neutrophils/100 WBC (Bld) 48.9 % Normal 38.1-75.5 [facility] Comment on above: Performed By: #### 2 4317-0 #### [facility] [address] [place] [address] Platelet mean volume (Bld) [Entitic vol] 11.0 fL Normal 6.2-12.1 [facility] Comment on above: Performed By: #### 2 4317-0 #### [facility] [address] [place] [address] Platelets (Bld) [#/Vol] 85 10*3/uL Low 142-424 [facility] Comment on above: Result Comment: Resu lts confirmed by slide review. Performed By: #### 2 4317-0 #### [facility] [place] [address] RBC (Bld) [#/Vol] 4.40 10*6/uL Normal 4.30-5.70 [facility] Comment on above: Performed By: #### 2 4317-0 #### [facility] [address] [place] [address] WBC (Bld) [#/Vol] 4.3 10*3/uL Low 4.6-10.2 [facility] Comment on above: Performed By: #### 2 4317-0 #### [facility] [place] [address] Hemogram and platelets WO di fferential panel (Bld)Ordered By: Tahir Sanon on 09-24-2023 Basophils (Bld) [#/Vol] 0.07 10*3/uL [facility] Basophils/100 WBC (Bld) 1.6 % 0.0 - 2.0 % [facility] Eosinophils (Bld) [#/Vol] 0.23 10*3/uL [facility] Eosinophils/100 WBC (Bld) 5.4 % 0. 0 - 7.0 % [facility] Erythrocyte distribution width (RBC) [Ratio] 18.4 % High 11.0 - 14.8 % [facility] Hematocrit (Bld) [Volume fraction] 38.5 % Low 39.0 - 49.0 % [facility] Hemoglobin (Bld) [Mass/Vol] 12.7 g/dL Low 13.5 - 17.5 g/dL [facility] Immature granulocytes (Bld) [#/Vol] 0.01 10*3/uL [facility] Immature granulocytes/100 WBC (Bld) 0.2 % 0.0 - 1.2 % [facility] Interpretation and review of laboratory results Abnormal [facility] Lymphocytes (Bld) [#/Vol] 1.14 10*3/uL [facility] Lymphocytes/100 WBC (Bld) 26.8 % 17 .9 - 49.6 % [facility] MCH (RBC) [Entitic mass] 28.9 pg [facility] MCHC (RBC) [Mass/Vol] 33.0 g/dL 30.8 - 35.3 g/dL [facility] MCV (RBC) [Entitic vol] 87.5 fL T [facility] Monocytes (Bld) [#/Vol] 0.73 10*3/uL [facility] Monocytes/100 WBC (Bld) 17.1 % 4.0 - 23.0 % [facility] Neutrophils (Bld) [#/Vol] 2.08 10*3/uL [facility] Neutrophils/100 WBC (Bld) 48.9 % 38 .1 - 75.5 % [facility] Platelet mean volume (Bld) [Entitic vol] 11.0 fL [facility] Platelets (Bld) [#/Vol] 85 10*3/uL Low [facility] Comment on above: Results confirmed by slide review. RBC (Bld) [#/Vol] 4.40 10*6/uL [facility] WBC (Bld) [#/Vol] 4.3 10*3/uL Low [facility] Laboratory - Specimen inform ationon 09-24-2023 Specimen source Nom (Unsp spec) Hold for add-ons. [facility] Comment on above: Auto resulted. No Panel Informationon 09-24 [facility] Urinalysis dipstick W Reflex Microscopic panel (U)on 09-24-2023 Bacteria, Urine Rare Abnormal None [facility] Comment on above: Performed By: #### 5 7020-0 #### [facility] [address] [place] [address] Bilirubin, Urine Negative Normal Negative [facility] Comment on above: Performed By: #### 5 7020-0 #### [facility] [address] [place] [address] Blood, Urine 3+ Abnormal Negative, Trace [facility] Comment on above: Performed By: #### 5 7020-0 #### [facility] [address] [place] [address] Clarity (U) Clear Normal Clear [facility] Comment on above: Performed By: #### 5 7020-0 #### [facility] [address] [place] [address] Color (U) Colorless Abnormal Yellow [facility] Comment on above: Performed By: #### 5 7020-0 #### [facility] [address] [place] [address] Glucose Ql (U) >1000 Abnormal Normal [facility] Comment on above: Performed By: #### 5 7020-0 #### [facility] [address] [place] [address] Ketones Ql (U) Negative Normal Negative [facility] Comment on above: Performed By: #### 5 7020-0 #### [facility] [address] [place] [address] Leukocytes, Urine Negative Normal Negative [facility] Comment on above: Performed By: #### 5 7020-0 #### [facility] [address] [place] [address] Nitrite, Urine Negative Normal Negative [facility] Comment on above: Performed By: #### 5 70-0 #### [facility] [address] [place] [address] pH (U) 6.5 [pH] Normal 5.0-8.0 [facility] Comment on above: Performed By: #### 5 70-0 #### [facility] [address] [place] [address] Protein, Urine Negative Normal Negative [facility] Comment on above: Performed By: #### 5 70-0 #### [facility] [address] [place] [address] RBC LM.HPF (Urine sed) [#/Area] 247 /[HPF] High 0-5 [facility] Comment on above: Performed By: #### 5 7020-0 #### [facility] [address] [place] [address] Specific [place] Urine 1.010 Normal 1.002 -1.03 0 [facility] Comment on above: Performed By: #### 5 70-0 #### [facility] [address] [place] [address] Urobilinogen, Urine Normal Normal Normal [facility] Comment on above: Performed By: #### 5 7020-0 #### [facility] [address] [place] [address] WBC LM.HPF (Urine sed) [#/Area] /[HPF] Normal 0-5 [facility] Comment on above: Performed By: #### 5 7020-0 #### [facility] [address] [place] [address] Bacteria LM.HPF (Urine sed) [#/Area] Rare Abnormal None /HPF [facility] Bilirubin Ql (U) Negative Negative mg/dL [facility] Clarity (U) Clear Clear [facility] Color (U) Colorless Abnormal Yellow [facility] Glucose Ql (U) >1000 Abnormal Normal mg/dL [facility] Hemoglobin Ql (U) 3+ Abnormal Negative, Trace [facility] Interpretation and review of laboratory results Abnormal [facility] Ketones (U) [Mass/Vol] Negative Negat fabricio mg/dL [facility] Leukocyte esterase Test strip Ql (U) Negative Negative WBCs/mcL [facility] Nitrite Ql (U) Negative Negative [facility] pH (U) 6.5 [pH] 5.0 - 8.0 pH [facility] Protein (U) [Mass/Vol] Negative Negat fabricio mg/dL [facility] RBC LM.HPF (Urine sed) [#/Area] 247 /[HPF] High [facility] Specific gravity (U) [Rel density] 1.010 1.002 - 1.030 [facility] Urobilinogen (U) [Mass/Vol] Normal Normal mg/dL [facility] WBC LM.HPF (Urine sed) [#/Area] [facility] on 08-03-2023 Creatinine [Mass/Vol] 0.59 mg/dL Low 0.76-1.27 [facility] Comment on above: Order Comment: Anthony [facility]eng performed at: [] [facility], [address] [place] [address], [address], , [employer] Worker: Tres Cm, PhD Performed By: #### C 121, C301, C406, C4176, C116, C48, C8, C45, C400, C115 #### Refer to report for performing lab GFR/1.73 sq M.predicted among non-blacks MDRD (S/P/Bld) [Vol rate/Area] 122 mL/min/{1.73_m2} Invalid Interpretation Code >[address] [facility] Comment on above: Order Comment: Testi ng performed at: [] [facility], [address] [place] [address], [address], , [employer] Worker: Tres Cm, PhD Performed By: #### C 121, C301, C406, C4176, C116, C48, C8, C45, C400, C115 #### Refer to report for performing lab Urea nitrogen/Creatinine [Mass ratio] 15 mg/mg Invalid Interpretation Code 9-20 [facility] Comment on above: Order Comment: Testi ng performed at: [] [facility], [address] [place] [address], [address], , [employer] Worker: Tres Cm, PhD Performed By: #### C 121, C301, C406, C4176, C116, C48, C8, C45, C400, C115 #### Refer to report for performing lab Potassium [Moles/Vol] 3.9 mmol/L Invalid Interpretation Code 3.5-5.2 [facility] Comment on above: Order Comment: Testi ng performed at: [] [facility], [address] [place] [address], [address], , [employer] Worker: Tres Cm, PhD Performed By: #### C 121, C301, C406, C4176, C116, C48, C8, C45, C400, C115 #### Refer to report for performing lab Chloride [Moles/Vol] 101 mmol/L Invalid Interpretation Code 96-106 [facility] Comment on above: Order Comment: Testi ng performed at: [] [facility], [address] [place], [address], , [employer] Worker: Tres Cm, PhD Performed By: #### C 121, C301, C406, C4176, C116, C48, C8, C45, C400, C115 #### Refer to report for performing lab Sodium [Moles/Vol] 136 mmol/L Invalid Interpretation Code 134-144 [facility] Comment on above: Order Comment: Testi ng performed at: [] [facility], [address] [place] [address], [address], , [employer] Worker: Tres Cm, PhD Performed By: #### C 121, C301, C406, C4176, C116, C48, C8, C45, C400, C115 #### Refer to report for performing lab Urea nitrogen [Mass/Vol] 9 mg/dL Invalid Interpretation Code 6-24 [facility] Comment on above: Order Comment: Testi ng performed at: [] [facility], [address] [place] [address], [address], , [employer] Worker: Tres Cm, PhD Performed By: #### C 121, C301, C406, C4176, C116, C48, C8, C45, C400, C115 #### Refer to report for performing lab Calcium [Mass/Vol] 9.0 mg/dL Invalid Interpretation Code 8.7-10.2 [facility] Comment on above: Order Comment: Testi ng performed at: [] [facility], [address] [place] [address], [address], , [employer] Worker: Tres Cm, PhD Performed By: #### C 121, C301, C406, C4176, C116, C48, C8, C45, C400, C115 #### Refer to report for performing lab CO2 [Moles/Vol] 22 mmol/L Invalid Interpretation Code 20-29 [facility] Comment on above: Order Comment: Testi ng performed at: [] [facility], [address] [place] [address], [address], , [employer] Worker: Tres Cm, PhD Performed By: #### C 121, C301, C406, C4176, C116, C48, C8, C45, C400, C115 #### Refer to report for performing lab Glucose [Mass/Vol] 98 mg/dL Invalid Interpretation Code 70-99 [facility] Comment on above: Order Comment: Testi ng performed at: [] [facility], [address] [place] [address], [address], , [employer] Worker: Tres Cm, PhD Performed By: #### C 121, C301, C406, C4176, C116, C48, C8, C45, C400, C115 #### Refer to report for performing lab CBC with Diffon 08-03-2023 Basophils (Bld) [#/Vol] 0.1 10*3/uL Invalid Interpretation Code 0.0-0.2 [facility] Comment on above: Order Comment: Testi ng performed at: [] [facility], [address] [place] [address], [address], , [employer] Worker: Tres Cm, PhD Performed By: #### C 121, C301, C406, C4176, C116, C48, C8, C45, C400, C115 #### Refer to report for performing lab Basophils/100 WBC (Bld) 2 % Invalid Interpretation Code Not Estab. [facility] Comment on above: Order Comment: Testi ng performed at: [] [facility], [address] [place] [address], [address], , [employer] Worker: Tres Cm, PhD Performed By: #### C 121, C301, C406, C4176, C116, C48, C8, C45, C400, C115 #### Refer to report for performing lab Eosinophils (Bld) [#/Vol] 0.5 10*3/uL High 0.0-0.4 [facility] Comment on above: Order Comment: Testi ng performed at: [] [facility], [address] [place] [address], [address], , [employer] Worker: Tres Cm, PhD Performed By: #### C 121, C301, C406, C4176, C116, C48, C8, C45, C400, C115 #### Refer to report for performing lab Eosinophils/100 WBC (Bld) 10 % Invali d Interpretation Code Not Estab. [facility] Comment on above: Order Comment: Testi ng performed at: [] [facility], [address] [place] [address], [address], , [employer] Worker: Tres Cm, PhD Performed By: #### C 121, C301, C406, C4176, C116, C48, C8, C45, C400, C115 #### Refer to report for performing lab Erythrocyte distribution width (RBC) [Ratio] 15.5 % High 11.6-15.4 [facility] Comment on above: Order Comment: Testi ng performed at: [] [facility], [address] [place] [address], [address], , [employer] Worker: Tres Cm, PhD Performed By: #### C 121, C301, C406, C4176, C116, C48, C8, C45, C400, C115 #### Refer to report for performing lab Hematocrit (Bld) [Volume fraction] 36.2 % Low 37.5-51.0 [facility] Comment on above: Order Comment: Testi ng performed at: [] [facility], [address] [place] [address], [address], , [employer] Worker: Tres Cm, PhD Performed By: #### C 121, C301, C406, C4176, C116, C48, C8, C45, C400, C115 #### Refer to report for performing lab Hematology Comments: Note: Invalid Interpretation Code [facility] Comment on above: Order Comment: Testi ng performed at: [] [facility], [address] [place] [address], [address], , [employer] Worker: Tres Cm, PhD Result Comment: Veri fied by microscopic examination. A hand-written panel/profile was received from your office. In accordance with the [facility] Ambiguous Test Code Policy dated May 2003, we have assigned CBC with Differential/Platelet, Test Code #646961 to this request. If this is not the testing you wished to receive on this specimen, please contact the [facility] Client Inquiry/ Technical Services Department to clarify the test order. We appreciate your business. Performed By: #### C 121, C301, C406, C4176, C116, C48, C8, C45, C400, C115 #### Refer to report for performing lab Hemoglobin (Bld) [Mass/Vol] 11.8 g/dL Low 13.0-17.7 [facility] Comment on above: Order Comment: Testi ng performed at: [] [address], [address], , [employer] Worker: Tres Cm, PhD Performed By: #### C 121, C301, C406, C4176, C116, C48, C8, C45, C400, C115 #### Refer to report for performing lab Immature Grans (Abs) 0.0 x10E3/uL Invalid Interpretation Code 0.0-0.1 [facility] Comment on above: Order Comment: Testi ng performed at: [] [address], [address], , [employer] Worker: Tres Cm, PhD Performed By: #### C 121, C301, C406, C4176, C116, C48, C8, C45, C400, C115 #### Refer to report for performing lab Immature granulocytes/100 WBC (Bld) 0 % Invalid Interpretation Code Not Estab. [facility] Comment on above: Order Comment: Testi ng performed at: [] [facility], [address] [place] [address], [address], , [employer] Worker: Tres Cm, PhD Performed By: #### C 121, C301, C406, C4176, C116, C48, C8, C45, C400, C115 #### Refer to report for performing lab Lymphocytes (Bld) [#/Vol] 1.1 10*3/uL Invali d Interpretation Code 0.7-3.1 [facility] Comment on above: Order Comment: Testi ng performed at: [] [address], [address], , [employer] Worker: Tres Cm, PhD Performed By: #### C 121, C301, C406, C4176, C116, C48, C8, C45, C400, C115 #### Refer to report for performing lab Lymphocytes/100 WBC (Bld) 23 % Invali d Interpretation Code Not Estab. [facility] Comment on above: Order Comment: Testi ng performed at: [] [address], [address], , [employer] Worker: Tres Cm, PhD Performed By: #### C 121, C301, C406, C4176, C116, C48, C8, C45, C400, C115 #### Refer to report for performing lab MCH (RBC) [Entitic mass] 27.8 pg Invalid Interpretation Code 26.6-33.0 [facility] Comment on above: Order Comment: Testi ng performed at: [] [address], [address], , [employer] Worker: Tres Cm, PhD Performed By: #### C 121, C301, C406, C4176, C116, C48, C8, C45, C400, C115 #### Refer to report for performing lab MCHC (RBC) [Mass/Vol] 32.6 g/dL Invalid Interpretation Code 31.5-35.7 [facility] Comment on above: Order Comment: Testi ng performed at: [] [facility], [address] [place] [address], [address], , [employer] Worker: Tres Cm, PhD Performed By: #### C 121, C301, C406, C4176, C116, C48, C8, C45, C400, C115 #### Refer to report for performing lab MCV (RBC) [Entitic vol] 85 fL Invalid Interpretation Code 79-97 [facility] Comment on above: Order Comment: Testi ng performed at: [] [facility], [address] [place] [address], [address], , [employer] Worker: Tres Cm, PhD Performed By: #### C 121, C301, C406, C4176, C116, C48, C8, C45, C400, C115 #### Refer to report for performing lab Monocytes (Bld) [#/Vol] 0.7 10*3/uL Invalid Interpretation Code 0.1-0.9 [facility] Comment on above: Order Comment: Testi ng performed at: [] [facility], [address] [place] [address], [address], , [employer] Worker: Tres Cm, PhD Performed By: #### C 121, C301, C406, C4176, C116, C48, C8, C45, C400, C115 #### Refer to report for performing lab Monocytes/100 WBC (Bld) 15 % Invalid Interpretation Code Not Estab. [facility] Comment on above: Order Comment: Testi ng performed at: [] [facility], [address] [place] [address], [address], , [employer] Worker: Tres Cm, PhD Performed By: #### C 121, C301, C406, C4176, C116, C48, C8, C45, C400, C115 #### Refer to report for performing lab Neutrophils (Absolute) 2.4 x10E3/uL Invalid Interpretation Code 1.4-7.0 [facility] Comment on above: Order Comment: Testi ng performed at: [] [facility], [address] [place] [address], [address], , [employer] Worker: Tres Cm, PhD Performed By: #### C 121, C301, C406, C4176, C116, C48, C8, C45, C400, C115 #### Refer to report for performing lab Neutrophils/100 WBC (Bld) 50 % Invali d Interpretation Code Not Estab. [facility] Comment on above: Order Comment: Testi ng performed at: [] [facility], [address] [place] [address], [address], , [employer] Worker: Tres Cm, PhD Performed By: #### C 121, C301, C406, C4176, C116, C48, C8, C45, C400, C115 #### Refer to report for performing lab Platelets (Bld) [#/Vol] 83 10*3/uL Critically low 150-450 [facility] Comment on above: Order Comment: Testi ng performed at: [] [facility], [address] [place] [address], [address], , [employer] Worker: Tres Cm, PhD Result Comment: Plat elet count verified by examination of peripheral blood smear. Performed By: #### C 121, C301, C406, C4176, C116, C48, C8, C45, C400, C115 #### Refer to report for performing lab RBC (Bld) [#/Vol] 4.25 10*6/uL Invalid Interpretation Code 4.14-5.80 [facility] Comment on above: Order Comment: Testi ng performed at: [] [facility], [address] [place] [address], [address], , [employer] Worker: Tres Cm, PhD Performed By: #### C 121, C301, C406, C4176, C116, C48, C8, C45, C400, C115 #### Refer to report for performing lab WBC (Bld) [#/Vol] 4.8 10*3/uL Invalid Interpretation Code 3.4-10.8 [facility] Comment on above: Order Comment: Testi ng performed at: [] [facility], [address] [place] [address], [address], , [employer] Worker: Tres Cm, PhD Performed By: #### C 121, C301, C406, C4176, C116, C48, C8, C45, C400, C115 #### Refer to report for performing lab Hepatic Panel (COPC)on 08-03 Bilirubin.indirect [Mass/Vol] 0.67 mg/dL High 0.00-0.40 [facility] Comment on above: Order Comment: Testi ng performed at: [] [facility], [address] [place] [address], [address], , [employer] Worker: Tres Cm, PhD Performed By: #### C 121, C301, C406, C4176, C116, C48, C8, C45, C400, C115 #### Refer to report for performing lab ALT [Catalytic activity/Vol] 39 U/L Invalid Interpretation Code 0-44 [facility] Comment on above: Order Comment: Testi ng performed at: [] [facility], [address] [place] [address], [address], , [employer] Worker: Tres Cm, PhD Performed By: #### C 121, C301, C406, C4176, C116, C48, C8, C45, C400, C115 #### Refer to report for performing lab AST [Catalytic activity/Vol] 66 U/L High 0-40 [facility] Comment on above: Order Comment: Testi ng performed at: [] [facility], [address] [place], [address], , [employer] Worker: Tres Cm, PhD Performed By: #### C 121, C301, C406, C4176, C116, C48, C8, C45, C400, C115 #### Refer to report for performing lab Albumin [Mass/Vol] 3.0 g/dL Low 4.1-5.1 [facility] Comment on above: Order Comment: Testi ng performed at: [] [facility], [address] [place], [address], , [employer] Worker: Tres Cm, PhD Performed By: #### C 121, C301, C406, C4176, C116, C48, C8, C45, C400, C115 #### Refer to report for performing lab ALP [Catalytic activity/Vol] 143 U/L High 44-121 [facility] Comment on above: Order Comment: Testi ng performed at: [] [facility], [address] [place] [address], [address], , [employer] Worker: Tres Cm, PhD Performed By: #### C 121, C301, C406, C4176, C116, C48, C8, C45, C400, C115 #### Refer to report for performing lab Bilirubin [Mass/Vol] 1.8 mg/dL High 0.0-1.2 [facility] Comment on above: Order Comment: Testi ng performed at: [] [facility], [address] [place] [address], [address], , [employer] Worker: Tres Cm, PhD Performed By: #### C 121, C301, C406, C4176, C116, C48, C8, C45, C400, C115 #### Refer to report for performing lab Protein [Mass/Vol] 7.0 g/dL Invalid Interpretation Code 6.0-8.5 [facility] Comment on above: Order Comment: Testi ng performed at: [] [facility], [address] [place], [address], , [employer] Worker: Tres Cm, PhD Performed By: #### C 121, C301, C406, C4176, C116, C48, C8, C45, C400, C115 #### Refer to report for performing lab HgbA1C ([facility])on 08-03-2023 HbA1c (Bld) [Mass fraction] 6.6 % High 4.8-5.6 [facility] Comment on above: Order Comment: Testi ng performed at: [] [facility], [address] [place] [address], [address], , [employer] Worker: Tres Cm, PhD Result Comment: Pred iabetes: 5.7 - 6.4 Diabetes: >6.4 Glycemic control for adults with diabetes: <7.0 Performed By: #### C 121, C301, C406, C4176, C116, C48, C8, C45, C400, C115 #### Refer to report for performing lab Lipid Panel ([facility])on 023 Cholesterol in HDL [Mass/Vol] 37 mg/dL Low >39 [facility] Comment on above: Order Comment: Testi ng performed at: [] [facility], [address] [place] [address], [address], , [employer] Worker: Tres Cm, PhD Performed By: #### C 121, C301, C406, C4176, C116, C48, C8, C45, C400, C115 #### Refer to report for performing lab LDL Chol Calc ([facility]) 120 mg/dL High 0-99 [facility] Comment on above: Order Comment: Testi ng performed at: [] [facility], [address] [place] [address], [address], , [employer] Worker: Tres Cm, PhD Performed By: #### C 121, C301, C406, C4176, C116, C48, C8, C45, C400, C115 #### Refer to report for performing lab VLDL Cholesterol Elliott 29 mg/dL Invalid Interpretation Code 5-40 [facility] Comment on above: Order Comment: Testi ng performed at: [] [facility], [address] [place] [address], [address], , [employer] Worker: Tres Cm, PhD Performed By: #### C 121, C301, C406, C4176, C116, C48, C8, C45, C400, C115 #### Refer to report for performing lab Cholesterol [Mass/Vol] 186 mg/dL Invalid Interpretation Code 100-199 [facility] Comment on above: Order Comment: Testi ng performed at: [] [facility], [address] [place] [address], [address], , [employer] Worker: Tres Cm, PhD Performed By: #### C 121, C301, C406, C4176, C116, C48, C8, C45, C400, C115 #### Refer to report for performing lab Triglyceride [Mass/Vol] 164 mg/dL High 0-149 [facility] Comment on above: Order Comment: Testi ng performed at: [] [facility], [address] [place] [address], [address], , [employer] Worker: Tres Cm, PhD Performed By: #### C 121, C301, C406, C4176, C116, C48, C8, C45, C400, C115 #### Refer to report for performing lab Magnesium (COPC)on 3 Magnesium [Mass/Vol] 1.9 mg/dL Invalid Interpretation Code 1.6-2.3 [facility] Comment on above: Order Comment: Testi ng performed at: [] [facility], [address] [place] [address], [address], , [employer] Worker: Tres Cm, PhD Performed By: #### C 121, C301, C406, C4176, C116, C48, C8, C45, C400, C115 #### Refer to report for performing lab Phosphorus (COPC)on 08-03-20 23 Phosphate [Mass/Vol] 3.4 mg/dL Invalid Interpretation Code 2.8-4.1 [facility] Comment on above: Order Comment: Testi ng performed at: [] [facility], [address] [place] [address], [address], , [employer] Worker: Tres Cm, PhD Performed By: #### C 121, C301, C406, C4176, C116, C48, C8, C45, C400, C115 #### Refer to report for performing lab TSH ([facility])on 08-03-2023 TSH 1.580 uIU/mL Invalid Interpretation Code 0.450-4.50 0 [facility] Comment on above: Order Comment: Testi ng performed at: [] [facility], [address] [place] [address], [address], , [employer] Worker: Tres Cm, PhD Performed By: #### C 121, C301, C406, C4176, C116, C48, C8, C45, C400, C115 #### Refer to report for performing lab Uric Acid ([facility])on 3 Urate [Mass/Vol] 3.7 mg/dL Low 3.8-8.4 [facility] Comment on above: Order Comment: Testi ng performed at: [] [facility], [address] [place] [address], [address], , [employer] Worker: Tres Cm, PhD Result Comment: Ther apeutic target for gout patients: <6.0 Performed By: #### C 121, C301, C406, C4176, C116, C48, C8, C45, C400, C115 #### Refer to report for performing lab Urinalysis and Microscopic w / Rfx to Cx (COPC)on 08-03-2023 Bacteria None seen Invalid Interpretation Code None seen/Few [facility] Comment on above: Order Comment: Testi ng performed at: [] [facility], [address] [place] [address], [address], , [employer] Worker: Tres Cm, PhD Performed By: #### C 121, C301, C406, C4176, C116, C48, C8, C45, C400, C115 #### Refer to report for performing lab Casts None seen Invalid Interpretation Code None seen [facility] Comment on above: Order Comment: Testi ng performed at: [] [address], [address], , [employer] Worker: Tres Cm, PhD Performed By: #### C 121, C301, C406, C4176, C116, C48, C8, C45, C400, C115 #### Refer to report for performing lab Epithelial cells LM Ql (Urine sed) None seen Invalid Interpretation Code 0 - 10 [facility] Comment on above: Order Comment: Testi ng performed at: [] [facility], [address] [place] [address], [address], , [employer] Worker: Tres Cm, PhD Performed By: #### C 121, C301, C406, C4176, C116, C48, C8, C45, C400, C115 #### Refer to report for performing lab RBC 0-2 Invalid Interpretation Code 0 - 2 [facility] Comment on above: Order Comment: Testi ng performed at: [] [address], [address], , [employer] Worker: Tres Cm, PhD Performed By: #### C 121, C301, C406, C4176, C116, C48, C8, C45, C400, C115 #### Refer to report for performing lab WBC None seen Invalid Interpretation Code 0 - 5 [facility] Comment on above: Order Comment: Testi ng performed at: [] [address], [address], , [employer] Worker: Tres Cm, PhD Performed By: #### C 121, C301, C406, C4176, C116, C48, C8, C45, C400, C115 #### Refer to report for performing lab Appearance (U) Clear Invalid Interpretation Code Clear [facility] Comment on above: Order Comment: Testi ng performed at: [] [facility], [address] [place] [address], [address], , [employer] Worker: Tres Cm, PhD Performed By: #### C 121, C301, C406, C4176, C116, C48, C8, C45, C400, C115 #### Refer to report for performing lab Bilirubin Ql (U) Negative Invalid Interpretation Code Negative [facility] Comment on above: Order Comment: Testi ng performed at: [] [facility], [address] [place] [address], [address], , [employer] Worker: Tres Cm, PhD Performed By: #### C 121, C301, C406, C4176, C116, C48, C8, C45, C400, C115 #### Refer to report for performing lab Color (U) Yellow Invalid Interpretation Code Yellow [facility] Comment on above: Order Comment: Testi ng performed at: [] [facility], [address] [place] [address], [address], , [employer] Worker: Tres Cm, PhD Performed By: #### C 121, C301, C406, C4176, C116, C48, C8, C45, C400, C115 #### Refer to report for performing lab Glucose Ql (U) 3+ Abnormal Negative [facility] Comment on above: Order Comment: Testi ng performed at: [] [facility], [address] [place] [address], [address], , [employer] Worker: Tres Cm, PhD Performed By: #### C 121, C301, C406, C4176, C116, C48, C8, C45, C400, C115 #### Refer to report for performing lab Ketones Ql (U) Negative Invalid Interpretation Code Negative [facility] Comment on above: Order Comment: Testi ng performed at: [] [facility], [address] [place] [address], [address], , [employer] Worker: Tres Cm, PhD Performed By: #### C 121, C301, C406, C4176, C116, C48, C8, C45, C400, C115 #### Refer to report for performing lab Microscopic Examination See below: Invalid Interpretation Code [facility] Comment on above: Order Comment: Testi ng performed at: [] [facility], [address] [place] [address], [address], , [employer] Worker: Tres Cm, PhD Result Comment: Micr oscopic was indicated and was performed. Performed By: #### C 121, C301, C406, C4176, C116, C48, C8, C45, C400, C115 #### Refer to report for performing lab Nitrite, Urine Negative Invalid Interpretation Code Negative [facility] Comment on above: Order Comment: Testi ng performed at: [] [facility], [address] [place] [address], [address], , [employer] Worker: Tres Cm, PhD Performed By: #### C 121, C301, C406, C4176, C116, C48, C8, C45, C400, C115 #### Refer to report for performing lab Occult Blood Negative Invalid Interpretation Code Negative [facility] Comment on above: Order Comment: Testi ng performed at: [] [facility], [address] [place] [address], [address], , [employer] Worker: Tres Cm, PhD Performed By: #### C 121, C301, C406, C4176, C116, C48, C8, C45, C400, C115 #### Refer to report for performing lab pH (U) 6.5 [pH] Invalid Interpretation Code 5.0-7.5 [facility] Comment on above: Order Comment: Testi ng performed at: [] [facility], [address] [place] [address], [address], , [employer] Worker: Trse Cm, PhD Performed By: #### C 121, C301, C406, C4176, C116, C48, C8, C45, C400, C115 #### Refer to report for performing lab Protein Ql (U) Negative Invalid Interpretation Code Negative/T race [facility] Comment on above: Order Comment: Testi ng performed at: [] [facility], [address] [place] [address], [address], , [employer] Worker: Tres Cm, PhD Performed By: #### C 121, C301, C406, C4176, C116, C48, C8, C45, C400, C115 #### Refer to report for performing lab Specific gravity (U) [Rel density] 1.013 Invalid Interpretation Code 1.005-1.03 0 [facility] Comment on above: Order Comment: Testi ng performed at: [] [facility], [address] [place] [address], [address], , [employer] Worker: Tres Cm, PhD Performed By: #### C 121, C301, C406, C4176, C116, C48, C8, C45, C400, C115 #### Refer to report for performing lab Urobilinogen,Semi-Qn 0.2 mg/dL Invalid Interpretation Code 0.2-1.0 [facility] Comment on above: Order Comment: Testi ng performed at: [] [facility], [address] [place] [address], [address], , [employer] Worker: Tres Cm, PhD Performed By: #### C 121, C301, C406, C4176, C116, C48, C8, C45, C400, C115 #### Refer to report for performing lab WBC Esterase Negative Invalid Interpretation Code Negative [facility] Comment on above: Order Comment: Testi ng performed at: [] [facility], [address] [place] [address], [address], , [employer] Worker: Tres Cm, PhD Performed By: #### C 121, C301, C406, C4176, C116, C48, C8, C45, C400, C115 #### Refer to report for performing lab Urinalysis and Microscopic w / Rfx to Cx ([facility])on 08-02-2023 Microscopic Examination Comment Normal [facility] Comment on above: Order Comment: Testi ng performed at: [CB] [facility], [address] [place] [address], [address], , [employer] Worker: Tres Cm, PhD Result Comment: Micr oscopic follows if indicated. Performed By: #### C 121, C301, C406, C4176, C116, C48, C8, C45, C400, C115 #### Refer to report for performing lab Urinalysis Reflex Comment Normal [facility] Comment on above: Order Comment: Testi ng performed at: [CB] [facility], [address] [place] [address], [address], , [employer] Worker: Tres Cm, PhD Result Comment: This specimen will not reflex to a Urine Culture. Performed By: #### C 121, C301, C406, C4176, C116, C48, C8, C45, C400, C115 #### Refer to report for performing lab Basic Metabolic Panel (COPC) on 04-05-2023 Creatinine [Mass/Vol] 0.65 mg/dL Low 0.76-1.27 [facility] Comment on above: Order Comment: Testi ng performed at: [] [facility], [address] [place], [address], , [employer] Worker: Tres Cm, PhD Performed By: #### C 121, C301, C406, C4176, C116, C48, C8, C45, C400, C115 #### Refer to report for performing lab GFR/1.73 sq M.predicted among non-blacks MDRD (S/P/Bld) [Vol rate/Area] 119 mL/min/{1.73_m2} Invalid Interpretation Code >59 [facility] Comment on above: Order Comment: Testi ng performed at: [] [facility], [address] [place] [address], [address], , [employer] Worker: Tres Cm, PhD Performed By: #### C 121, C301, C406, C4176, C116, C48, C8, C45, C400, C115 #### Refer to report for performing lab Urea nitrogen/Creatinine [Mass ratio] 9 mg/mg Invalid Interpretation Code 9-20 [facility] Comment on above: Order Comment: Testi ng performed at: [] [facility], [address] [place] [address], [address], , [employer] Worker: Tres Cm, PhD Performed By: #### C 121, C301, C406, C4176, C116, C48, C8, C45, C400, C115 #### Refer to report for performing lab Calcium [Mass/Vol] 8.6 mg/dL Low 8.7-10.2 [facility] Comment on above: Order Comment: Testi ng performed at: [] [facility], [address] [place] [address], [address], , [employer] Worker: Tres Cm, PhD Performed By: #### C 121, C301, C406, C4176, C116, C48, C8, C45, C400, C115 #### Refer to report for performing lab CO2 [Moles/Vol] 25 mmol/L Invalid Interpretation Code 20-29 [facility] Comment on above: Order Comment: Testi ng performed at: [] [facility], [address] [place] [address], [address], , [employer] Worker: Tres Cm, PhD Performed By: #### C 121, C301, C406, C4176, C116, C48, C8, C45, C400, C115 #### Refer to report for performing lab Urea nitrogen [Mass/Vol] 6 mg/dL Invalid Interpretation Code 6-24 [facility] Comment on above: Order Comment: Testi ng performed at: [] [facility], [address] [place] [address], [address], , [employer] Worker: Tres Cm, PhD Performed By: #### C 121, C301, C406, C4176, C116, C48, C8, C45, C400, C115 #### Refer to report for performing lab Glucose [Mass/Vol] 107 mg/dL High 70-99 [facility] Comment on above: Order Comment: Testi ng performed at: [] [facility], [address] [place] [address], [address], , [employer] Worker: Tres Cm, PhD Performed By: #### C 121, C301, C406, C4176, C116, C48, C8, C45, C400, C115 #### Refer to report for performing lab Potassium [Moles/Vol] 3.9 mmol/L Invalid Interpretation Code 3.5-5.2 [facility] Comment on above: Order Comment: Testi ng performed at: [] [facility], [address] [place] [address], [address], , [employer] Worker: Tres Cm, PhD Performed By: #### C 121, C301, C406, C4176, C116, C48, C8, C45, C400, C115 #### Refer to report for performing lab Chloride [Moles/Vol] 102 mmol/L Invalid Interpretation Code 96-106 [facility] Comment on above: Order Comment: Testi ng performed at: [] [facility], [address] [place] [address], [address], , [employer] Worker: Tres Cm, PhD Performed By: #### C 121, C301, C406, C4176, C116, C48, C8, C45, C400, C115 #### Refer to report for performing lab Sodium [Moles/Vol] 137 mmol/L Invalid Interpretation Code 134-144 [facility] Comment on above: Order Comment: Testi ng performed at: [] [facility], [address] [place] [address], [address], , [employer] Worker: Tres Cm, PhD Performed By: #### C 121, C301, C406, C4176, C116, C48, C8, C45, C400, C115 #### Refer to report for performing lab CBC with differential (COPC) on 04-05-2023 Basophils (Bld) [#/Vol] 0.1 10*3/uL Invalid Interpretation Code 0.0-0.2 [facility] Comment on above: Order Comment: Testi ng performed at: [] [facility], [address] [place] [address], [address], , [employer] Worker: Tres Cm, PhD Performed By: #### C 121, C301, C406, C4176, C116, C48, C8, C45, C400, C115 #### Refer to report for performing lab Basophils/100 WBC (Bld) 1 % Invalid Interpretation Code Not Estab. [facility] Comment on above: Order Comment: Testi ng performed at: [] [facility], [address] [place] [address], [address], , [employer] Worker: Tres Cm, PhD Performed By: #### C 121, C301, C406, C4176, C116, C48, C8, C45, C400, C115 #### Refer to report for performing lab Eosinophils (Bld) [#/Vol] 0.4 10*3/uL Invali d Interpretation Code 0.0-0.4 [facility] Comment on above: Order Comment: Testi ng performed at: [] [facility], [address] [place], [address], , [employer] Worker: Tres Cm, PhD Performed By: #### C 121, C301, C406, C4176, C116, C48, C8, C45, C400, C115 #### Refer to report for performing lab Eosinophils/100 WBC (Bld) 9 % Invali d Interpretation Code Not Estab. [facility] Comment on above: Order Comment: Testi ng performed at: [] [facility], [address] [place] [address], [address], , [employer] Worker: Tres Cm, PhD Performed By: #### C 121, C301, C406, C4176, C116, C48, C8, C45, C400, C115 #### Refer to report for performing lab Erythrocyte distribution width (RBC) [Ratio] 16.6 % High 11.6-15.4 [facility] Comment on above: Order Comment: Testi ng performed at: [] [facility], [address] [place] [address], [address], , [employer] Worker: Tres Cm, PhD Performed By: #### C 121, C301, C406, C4176, C116, C48, C8, C45, C400, C115 #### Refer to report for performing lab Hematocrit (Bld) [Volume fraction] 38.0 % Invalid Interpretation Code 37.5-51.0 [facility] Comment on above: Order Comment: Testi ng performed at: [] [facility], [address] [place] [address], [address], , [employer] Worker: Tres Cm, PhD Performed By: #### C 121, C301, C406, C4176, C116, C48, C8, C45, C400, C115 #### Refer to report for performing lab Hematology Comments: Note: Invalid Interpretation Code [facility] Comment on above: Order Comment: Testi ng performed at: [] [facility], [address] [place] [address], [address], , [employer] Worker: Tres Cm, PhD Result Comment: Veri fied by microscopic examination. Performed By: #### C 121, C301, C406, C4176, C116, C48, C8, C45, C400, C115 #### Refer to report for performing lab Hemoglobin (Bld) [Mass/Vol] 12.8 g/dL Low 13.0-17.7 [facility] Comment on above: Order Comment: Testi ng performed at: [] [facility], [address] [place] [address], [address], , [employer] Worker: Tres Cm, PhD Performed By: #### C 121, C301, C406, C4176, C116, C48, C8, C45, C400, C115 #### Refer to report for performing lab Immature Grans (Abs) 0.0 x10E3/uL Invalid Interpretation Code 0.0-0.1 [facility] Comment on above: Order Comment: Testi ng performed at: [] [facility], [address] [place] [address], [address], , [employer] Worker: Tres Cm, PhD Performed By: #### C 121, C301, C406, C4176, C116, C48, C8, C45, C400, C115 #### Refer to report for performing lab Immature granulocytes/100 WBC (Bld) 0 % Invalid Interpretation Code Not Estab. [facility] Comment on above: Order Comment: Testi ng performed at: [] [facility], [address] [place] [address], [address], , [employer] Worker: Tres Cm, PhD Performed By: #### C 121, C301, C406, C4176, C116, C48, C8, C45, C400, C115 #### Refer to report for performing lab Lymphocytes (Bld) [#/Vol] 1.1 10*3/uL Invali d Interpretation Code 0.7-3.1 [facility] Comment on above: Order Comment: Testi ng performed at: [] [facility], [address] [place] [address], [address], , [employer] Worker: Tres Cm, PhD Performed By: #### C 121, C301, C406, C4176, C116, C48, C8, C45, C400, C115 #### Refer to report for performing lab Lymphocytes/100 WBC (Bld) 24 % Invali d Interpretation Code Not Estab. [facility] Comment on above: Order Comment: Testi ng performed at: [] [facility], [address] [place] [address], [address], , [employer] Worker: Tres Cm, PhD Performed By: #### C 121, C301, C406, C4176, C116, C48, C8, C45, C400, C115 #### Refer to report for performing lab MCH (RBC) [Entitic mass] 28.6 pg Invalid Interpretation Code 26.6-33.0 [facility] Comment on above: Order Comment: Testi ng performed at: [] [facility], [address] [place] [address], [address], , [employer] Worker: Tres Cm, PhD Performed By: #### C 121, C301, C406, C4176, C116, C48, C8, C45, C400, C115 #### Refer to report for performing lab MCHC (RBC) [Mass/Vol] 33.7 g/dL Invalid Interpretation Code 31.5-35.7 [facility] Comment on above: Order Comment: Testi ng performed at: [] [facility], [address] [facility], [place], [address], , [employer] Worker: Tres Cm, PhD Performed By: #### C 121, C301, C406, C4176, C116, C48, C8, C45, C400, C115 #### Refer to report for performing lab MCV (RBC) [Entitic vol] 85 fL Invalid Interpretation Code 79-97 [facility] Comment on above: Order Comment: Testi ng performed at: [] [facility], [address] [place] [address], [address], , [employer] Worker: Tres Cm, PhD Performed By: #### C 121, C301, C406, C4176, C116, C48, C8, C45, C400, C115 #### Refer to report for performing lab Monocytes (Bld) [#/Vol] 0.7 10*3/uL Invalid Interpretation Code 0.1-0.9 [facility] Comment on above: Order Comment: Testi ng performed at: [] [facility], [address] [place] [address], [address], , [employer] Worker: Tres Cm, PhD Performed By: #### C 121, C301, C406, C4176, C116, C48, C8, C45, C400, C115 #### Refer to report for performing lab Monocytes/100 WBC (Bld) 15 % Invalid Interpretation Code Not Estab. [facility] Comment on above: Order Comment: Testi ng performed at: [] [facility], [address] [place] [address], [address], , [employer] Worker: Tres Cm, PhD Performed By: #### C 121, C301, C406, C4176, C116, C48, C8, C45, C400, C115 #### Refer to report for performing lab Neutrophils (Absolute) 2.5 x10E3/uL Invalid Interpretation Code 1.4-7.0 [facility] Comment on above: Order Comment: Testi ng performed at: [] [facility], [address] [place], [address], , [employer] Worker: Tres Cm, PhD Performed By: #### C 121, C301, C406, C4176, C116, C48, C8, C45, C400, C115 #### Refer to report for performing lab Neutrophils/100 WBC (Bld) 51 % Invali d Interpretation Code Not Estab. [facility] Comment on above: Order Comment: Testi ng performed at: [] [facility], [address] [place] [address], [address], , [employer] Worker: Tres Cm, PhD Performed By: #### C 121, C301, C406, C4176, C116, C48, C8, C45, C400, C115 #### Refer to report for performing lab Platelets (Bld) [#/Vol] 81 10*3/uL Critically low 150-450 [facility] Comment on above: Order Comment: Testi ng performed at: [] [facility], [address] [place] [address], [address], , [employer] Worker: Tres Cm, PhD Result Comment: Plat elet count verified by examination of peripheral blood smear. Performed By: #### C 121, C301, C406, C4176, C116, C48, C8, C45, C400, C115 #### Refer to report for performing lab RBC (Bld) [#/Vol] 4.47 10*6/uL Invalid Interpretation Code 4.14-5.80 [facility] Comment on above: Order Comment: Testi ng performed at: [] [facility], [address] [place] [address], [address], , [employer] Worker: Tres Cm, PhD Performed By: #### C 121, C301, C406, C4176, C116, C48, C8, C45, C400, C115 #### Refer to report for performing lab WBC (Bld) [#/Vol] 4.8 10*3/uL Invalid Interpretation Code 3.4-10.8 [facility] Comment on above: Order Comment: Testi ng performed at: [] [facility], [address] [place] [address], [address], , [employer] Worker: Tres Cm, PhD Result Comment: Ve rified by repeat analysis Performed By: #### C 121, C301, C406, C4176, C116, C48, C8, C45, C400, C115 #### Refer to report for performing lab GGT (COPC)on 04-05-2023 Gamma glutamyl transferase [Catalytic activity/Vol] 47 U/L Invalid Interpretation Code 0-65 [facility] Comment on above: Order Comment: Testi ng performed at: [] [facility], [address] [place] [address], [address], , [employer] Worker: Tres mC, PhD Performed By: #### C 121, C301, C406, C4176, C116, C48, C8, C45, C400, C115 #### Refer to report for performing lab Hepatic Panel (COPC)on 04-05 Bilirubin.indirect [Mass/Vol] 0.68 mg/dL High 0.00-0.40 [facility] Comment on above: Order Comment: Testi ng performed at: [] [facility], [address] [place] [address], [address], , [employer] Worker: Tres Cm, PhD Performed By: #### C 121, C301, C406, C4176, C116, C48, C8, C45, C400, C115 #### Refer to report for performing lab ALT [Catalytic activity/Vol] 74 U/L High 0-44 [facility] Comment on above: Order Comment: Testi ng performed at: [] [facility], [address] [place] [address], [address], , [employer] Worker: Tres Cm, PhD Performed By: #### C 121, C301, C406, C4176, C116, C48, C8, C45, C400, C115 #### Refer to report for performing lab ALP [Catalytic activity/Vol] 180 U/L High 44-121 [facility] Comment on above: Order Comment: Testi ng performed at: [] [facility], [address] [place] [address], [address], , [employer] Worker: Tres Cm, PhD Performed By: #### C 121, C301, C406, C4176, C116, C48, C8, C45, C400, C115 #### Refer to report for performing lab AST [Catalytic activity/Vol] 89 U/L High 0-40 [facility] Comment on above: Order Comment: Testi ng performed at: [] [facility], [address] [place] [address], [address], , [employer] Worker: Tres Cm, PhD Performed By: #### C 121, C301, C406, C4176, C116, C48, C8, C45, C400, C115 #### Refer to report for performing lab Bilirubin [Mass/Vol] 1.6 mg/dL High 0.0-1.2 [facility] Comment on above: Order Comment: Testi ng performed at: [] [facility], [address] [place] [address], [address], , [employer] Worker: Tres Cm, PhD Performed By: #### C 121, C301, C406, C4176, C116, C48, C8, C45, C400, C115 #### Refer to report for performing lab Albumin [Mass/Vol] 3.0 g/dL Low 4.0-5.0 [facility] Comment on above: Order Comment: Testi ng performed at: [] [facility], [address] [place] [address], [address], , [employer] Worker: Tres Cm, PhD Performed By: #### C 121, C301, C406, C4176, C116, C48, C8, C45, C400, C115 #### Refer to report for performing lab Protein [Mass/Vol] 7.1 g/dL Invalid Interpretation Code 6.0-8.5 [facility] Comment on above: Order Comment: Testi ng performed at: [] [facility], [address] [place], [address], , [employer] Worker: Tres Cm, PhD Performed By: #### C 121, C301, C406, C4176, C116, C48, C8, C45, C400, C115 #### Refer to report for performing lab HgbA1C (COPC)on 04-05-2023 HbA1c (Bld) [Mass fraction] 6.8 % High 4.8-5.6 [facility] Comment on above: Order Comment: Testi ng performed at: [] [facility], [address] [place] [address], [address], , [employer] Worker: Tres Cm, PhD Result Comment: Pred iabetes: 5.7 - 6.4 Diabetes: >6.4 Glycemic control for adults with diabetes: <7.0 Performed By: #### C 121, C301, C406, C4176, C116, C48, C8, C45, C400, C115 #### Refer to report for performing lab Magnesium (COPC)on 3 Magnesium [Mass/Vol] 1.9 mg/dL Invalid Interpretation Code 1.6-2.3 [facility] Comment on above: Order Comment: Testi ng performed at: [] [facility], [address] [place] [address], [address], , [employer] Worker: Tres Cm, PhD Performed By: #### C 121, C301, C406, C4176, C116, C48, C8, C45, C400, C115 #### Refer to report for performing lab Phosphorus (COPC)on 04-05-20 23 Phosphate [Mass/Vol] 3.8 mg/dL Invalid Interpretation Code 2.8-4.1 [facility] Comment on above: Order Comment: Testi ng performed at: [] [facility], [address] [place], [address], , [employer] Worker: Tres Cm, PhD Performed By: #### C 121, C301, C406, C4176, C116, C48, C8, C45, C400, C115 #### Refer to report for performing lab Lipid Panel (COPC)on 023 Cholesterol, Total Test Not Performed. Normal [facility] Comment on above: Order Comment: Testi ng performed at: [CB] [facility], [address] [place], [address], , [employer] Worker: Tres Cm, PhD Result Comment: Requ est for additional testing has been received, however, we are unable to add on the test(s) requested. The following test(s) were not performed. Contacted Fredrick Cohen at your facility 04/12/23. Performed By: #### C 121, C301, C406, C4176, C116, C48, C8, C45, C400, C115 #### Refer to report for performing lab HDL Cholesterol Test Not Performed. Normal [facility] Comment on above: Order Comment: Testi ng performed at: [CB] [facility], [address] [place], [address], , [employer] Worker: Tres Cm, PhD Result Comment: Test not performed Performed By: #### C 121, C301, C406, C4176, C116, C48, C8, C45, C400, C115 #### Refer to report for performing lab Triglycerides Test Not Performed. Normal [facility] Comment on above: Order Comment: Testi ng performed at: [CB] [facility], [address] [place], [address], , [employer] Worker: Tres Cm, PhD Result Comment: Test not performed Performed By: #### C 121, C301, C406, C4176, C116, C48, C8, C45, C400, C115 #### Refer to report for performing lab VLDL Cholesterol Elliott Test Not Performed. Normal [facility] Comment on above: Order Comment: Testi ng performed at: [CB] [facility], [address] [facility], [place], [address], , [employer] Worker: Tres Cm, PhD Result Comment: Unab le to calculate result since non-numeric result obtained for component test. Performed By: #### C 121, C301, C406, C4176, C116, C48, C8, C45, C400, C115 #### Refer to report for performing lab Written Authorizationon 03-15 Written Authorization Comment Normal [place] [facility] Comment on above: Order Comment: Testi ng performed at: [CB] [facility], [address] [place], [address], , [employer] Worker: Tres Cm, PhD Result Comment: Writ ten Authorization Received. Authorization received from Written Request 04-12-2023 Logged by Danny Bunn Performed By: #### C 121, C301, C406, C4176, C116, C48, C8, C45, C400, C115 #### Refer to report for performing lab EGDon 02-16-2023 Esophagogastroduodenoscopy [facility] Patient Name: Leon Rider Procedure Date: 02/16/2023 9:03 AM Date of : 1980 Age: 42 Gender: Male Procedure: Upper GI endoscopy Indications: Follow-up of esophageal varices Patient Profile: Refer to note in patient chart for documentation of history and physical. Providers: VINCENT MOSES MD, Donell Ochoa MD: Medicines: Monitored Anesthesia Care Moderate Sedation: MAC per anesthesia Complications: No immediate complications. Procedure: Pre-Anesthesia Assessment: - Prior to the procedure, a History and Physical was performed, and patient medications and allergies were reviewed. The patient's tolerance of previous anesthesia was also reviewed. The risks and benefits of the procedure and the sedation options and risks were discussed with the patient. All questions were answered, and informed consent was obtained. Prior Anticoagulants: The patient has taken no anticoagulant or antiplatelet agents. ASA Grade Assessment: III - A patient with severe systemic disease. After reviewing the risks and benefits, the patient was deemed in satisfactory condition to undergo the procedure. - After reviewing the risks and benefits, the patient was deemed in satisfactory condition to undergo the procedure. After obtaining informed consent, the endoscope was passed under direct vision. Throughout the procedure, the patient's blood pressure, pulse, and oxygen saturations were monitored continuously. The Endoscope was introduced through the mouth, and advanced to the third part of duodenum. The upper GI endoscopy was accomplished without difficulty. The patient tolerated the procedure well. Findings: The Z-line was regular and was found 40 cm from the incisors. Obliterated varices were found in the lower third of the esophagus. Moderate portal hypertensive gastropathy was found in the gastric body. 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 The examined duodenum was normal. Procedure Code(s): --- Professional --- 58844, Esophagogastroduoden oscopy, flexible, transoral; diagnostic, including collection of specimen(s) by brushing or washing, when performed (separate procedure) Diagnosis Code(s): --- Professional --- I85.00, Esophageal varices without bleeding K76.6, Portal hypertension K31.89, Other diseases of stomach and duodenum K31.819, Angiodysplasia of stomach and duodenum without bleeding CPT copyright 2020 [employer]. All rights reserved. 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 MD VINCENT Chiang MD 02/16/2023 9:28:58 AM This report has been signed electronically. Estimated Blood Loss: Estimated blood loss: none. Number of Addenda: 0 Note Initiated On: 02/16/2023 9:03 AM Total Procedure Duration Time 0 hours 2 minutes 20 seconds [address] [place] [address] IMPRESSION: - Z-line regular, 40 cm from the incisors. - Obliterated esophageal varices. - Portal hypertensive gastropathy. - Gastric antral vascular ectasia without bleeding. - Normal examined duodenum. - No specimens collected. Recommendation: - Patient has a contact number available for emergencies. The signs and symptoms of potential delayed complications were discussed with the patient. Return to normal activities tomorrow. Written discharge instructions were provided to the patient. - Resume previous diet. - Continue present medications. - Discharge patient to home. - Repeat upper endoscopy in 6 months for surveillance. Normal [facility] EGD Anesthesia - MAC; JAKE Matamoros NDOSCOPYon 02-16-2023 - Z-line regular, 40 cm from the incisors. - Obliterated esophageal varices. - Portal hypertensive gastropathy. - Gastric antral vascular ectasia without bleeding. - Normal examined duodenum. - No specimens collected. Recommendation: - Patient has a contact number available for emergencies. The signs and symptoms of potential delayed complications were discussed with the patient. Return to normal activities tomorrow. Written discharge instructions were provided to the patient. - Resume previous diet. - Continue present medications. - Discharge patient to home. - Repeat upper endoscopy in 6 months for surveillance. [facility] GI Patient Name: Leon Rider Procedure Date: 02/16/2023 9:03 AM Date of : 1980 Age: 42 Gender: Male Procedure: Upper GI endoscopy Indications: Follow-up of esophageal varices Patient Profile: Refer to note in patient chart for documentation of history and physical. Providers: VINCENT MOSES MD, Donell Ochoa MD: Medicines: Monitored Anesthesia Care Moderate Sedation: MAC per anesthesia Complications: No immediate complications. Procedure: Pre-Anesthesia Assessment: - Prior to the procedure, a History and Physical was performed, and patient medications and allergies were reviewed. The patient's tolerance of previous anesthesia was also reviewed. The risks and benefits of the procedure and the sedation options and risks were discussed with the patient. All questions were answered, and informed consent was obtained. Prior Anticoagulants: The patient has taken no anticoagulant or antiplatelet agents. ASA Grade Assessment: III - A patient with severe systemic disease. After reviewing the risks and benefits, the patient was deemed in satisfactory condition to undergo the procedure. - After reviewing the risks and benefits, the patient was deemed in satisfactory condition to undergo the procedure. After obtaining informed consent, the endoscope was passed under direct vision. Throughout the procedure, the patient's blood pressure, pulse, and oxygen saturations were monitored continuously. The Endoscope was introduced through the mouth, and advanced to the third part of duodenum. The upper GI endoscopy was accomplished without difficulty. The patient tolerated the procedure well. Findings: The Z-line was regular and was found 40 cm from the incisors. Obliterated varices were found in the lower third of the esophagus. Moderate portal hypertensive gastropathy was found in the gastric body. 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 The examined duodenum was normal. Procedure Code(s): --- Professional --- 95759, Esophagogastroduoden oscopy, flexible, transoral; diagnostic, including collection of specimen(s) by brushing or washing, when performed (separate procedure) Diagnosis Code(s): --- Professional --- I85.00, Esophageal varices without bleeding K76.6, Portal hypertension K31.89, Other diseases of stomach and duodenum K31.819, Angiodysplasia of stomach and duodenum without bleeding CPT copyright 2020 [employer]. All rights reserved. 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 MD VINCENT Chiang MD 02/16/2023 9:28:58 AM This report has been signed electronically. Estimated Blood Loss: Estimated blood loss: none. Number of Addenda: 0 Note Initiated On: 02/16/2023 9:03 AM Total Procedure Duration Time 0 hours 2 minutes 20 seconds [address] [place] [address] [facility] Vincent Moses MD - 02/16/2023 [facility] GI Patient Name: Leon Rider Procedure Date: 02/16/2023 9:03 AM Date of : 1980 Age: 42 Gender: Male Procedure: Upper GI endoscopy Indications: Follow-up of esophageal varices Patient Profile: Refer to note in patient chart for documentation of history and physical. Providers: VINCENT MOSES MD, Donell Ochoa MD: Medicines: Monitored Anesthesia Care Moderate Sedation: MAC per anesthesia Complications: No immediate complications. Procedure: Pre-Anesthesia Assessment: - Prior to the procedure, a History and Physical was performed, and patient medications and allergies were reviewed. The patient's tolerance of previous anesthesia was also reviewed. The risks and benefits of the procedure and the sedation options and risks were discussed with the patient. All questions were answered, and informed consent was obtained. Prior Anticoagulants: The patient has taken no anticoagulant or antiplatelet agents. ASA Grade Assessment: III - A patient with severe systemic disease. After reviewing the risks and benefits, the patient was deemed in satisfactory condition to undergo the procedure. - After reviewing the risks and benefits, the patient was deemed in satisfactory condition to undergo the procedure. After obtaining informed consent, the endoscope was passed under direct vision. Throughout the procedure, the patient's blood pressure, pulse, and oxygen saturations were monitored continuously. The Endoscope was introduced through the mouth, and advanced to the third part of duodenum. The upper GI endoscopy was accomplished without difficulty. The patient tolerated the procedure well. Findings: The Z-line was regular and was found 40 cm from the incisors. Obliterated varices were found in the lower third of the esophagus. Moderate portal hypertensive gastropathy was found in the gastric body. 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 The examined duodenum was normal. Procedure Code(s): --- Professional --- 61834, Esophagogastroduoden oscopy, flexible, transoral; diagnostic, including collection of specimen(s) by brushing or washing, when performed (separate procedure) Diagnosis Code(s): --- Professional --- I85.00, Esophageal varices without bleeding K76.6, Portal hypertension K31.89, Other diseases of stomach and duodenum K31.819, Angiodysplasia of stomach and duodenum without bleeding CPT copyright 2020 [employer]. All rights reserved. 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 MD VINCENT Chiang MD 02/16/2023 9:28:58 AM This report has been signed electronically. Estimated Blood Loss: Estimated blood loss: none. Number of Addenda: 0 Note Initiated On: 02/16/2023 9:03 AM Total Procedure Duration Time 0 hours 2 minutes [address] [place] [address] IMPRESSION: - Z-line regular, 40 cm from the incisors. - Obliterated esophageal varices. - Portal hypertensive gastropathy. - Gastric antral vascular ectasia without bleeding. - Normal examined duodenum. - No specimens collected. Recommendation: - Patient has a contact number available for emergencies. The signs and symptoms of potential delayed complications were discussed with the patient. Return to normal activities tomorrow. Written discharge instructions were provided to the patient. - Resume previous diet. - Continue present medications. - Discharge patient to home. - Repeat upper endoscopy in 6 months for surveillance. [facility] Radiology Study observation (narrative) [facility] Glucose Auto test strip (Bld ) [Mass/Vol]on 02-16-2023 Glucose [Mass/Vol] 158 mg/dL High 70-[address] [facility] Comment on above: Performed By: #### 2 [id number] #### [facility] [address] [place] [address] Glucose [Mass/Vol] 158 mg/dL High 70 - 99 mg/dL [facility] Interpretation and review of laboratory results Abnormal Gia He alth [facility] EGDon 12-23-2022 Esophagogastroduodenoscopy [facility] Patient Name: Leon Rider Procedure Date: 12/23/2022 10:12 AM Date of : 1980 Age: 42 Gender: Male Procedure: Upper GI endoscopy Indications: For therapy of esophageal varices Patient Profile: Refer to note in patient chart for documentation of history and physical. Providers: Paul Mishra MD, HA MIX MD Referring MD: ZACK VIGIL MD Medicines: See the Anesthesia note for documentation of the administered medications Moderate Sedation: Sedation provided by anesthesia provider Complications: No immediate complications. Procedure: Pre-Anesthesia Assessment: - Prior to the procedure, a History and Physical was performed, and patient medications and allergies were reviewed. The patient is competent. The risks and benefits of the procedure and the sedation options and risks were discussed with the patient. All questions were answered and informed consent was obtained. Patient identification and proposed procedure were verified by the physician in the pre-procedure area. Mental Status Examination: alert and oriented. Airway Examination: normal oropharyngeal airway and neck mobility. Respiratory Examination: clear to auscultation. CV Examination: normal. Prophylactic Antibiotics: The patient does not require prophylactic antibiotics. Prior Anticoagulants: The patient has taken no previous anticoagulant or antiplatelet agents. After reviewing the risks and benefits, the patient was deemed in satisfactory condition to undergo the procedure. The anesthesia plan was to use monitored anesthesia care (MAC). Immediately prior to administration of medications, the patient was re-assessed for adequacy to receive sedatives. The heart rate, respiratory rate, oxygen saturations, blood pressure, adequacy of pulmonary ventilation, and response to care were monitored throughout the procedure. The physical status of the patient was re-assessed after the procedure. After obtaining informed consent, the endoscope was passed under direct vision. Throughout the procedure, the patient's blood pressure, pulse, and oxygen saturations were monitored continuously. The [id number]-[id number] Endoscope was introduced through the mouth, and advanced to the second part of duodenum. The upper GI endoscopy was accomplished without difficulty. The patient tolerated the procedure well. Findings: Grade II varices were found in the lower third of the esophagus. Two bands were successfully placed with complete eradication, resulting in deflation of varices. There was no bleeding at the end of the procedure. Moderate portal hypertensive gastropathy was found in the stomach. The examined duodenum was normal. Procedure Code(s): --- Professional --- 64727, Esophagogastroduoden oscopy, flexible, transoral; with band ligation of esophageal/gastric varices Diagnosis Code(s): --- Professional --- I85.00, Esophageal varices without bleeding K76.6, Portal hypertension K31.89, Other diseases of stomach and duodenum CPT copyright 2020 [employer]. All rights reserved. 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 MD Paul Khan MD 12/23/2022 10:36:45 AM This report has been signed electronically. Estimated Blood Loss: Estimated blood loss: none. Number of Addenda: 0 Note Initiated On: 12/23/2022 10:12 AM Total Procedure Duration Time 0 hours 6 minutes 30 seconds [address] [place] [address] IMPRESSION: - Grade II esophageal varices. Completely eradicated. Banded. - Portal hypertensive gastropathy. - Normal examined duodenum. - No specimens collected. Recommendation: - Discharge patient to home. - Patient has a contact number available for emergencies. The signs and symptoms of potential delayed complications were discussed with the patient. Return to normal activities tomorrow. Written discharge instructions were provided to the patient. - Full liquid diet today, advance diet tomorrow - Continue present medications. - Repeat upper endoscopy in 4 weeks for retreatment. - Return to GI office as previously scheduled. Normal [facility] EGD Anesthesia - MAC; JAKE Matamoros NDOSCOPYon 12-23-2022 - Grade II esophageal varices. Completely eradicated. Banded. - Portal hypertensive gastropathy. - Normal examined duodenum. - No specimens collected. Recommendation: - Discharge patient to home. - Patient has a contact number available for emergencies. The signs and symptoms of potential delayed complications were discussed with the patient. Return to normal activities tomorrow. Written discharge instructions were provided to the patient. - Full liquid diet today, advance diet tomorrow - Continue present medications. - Repeat upper endoscopy in 4 weeks for retreatment. - Return to GI office as previously scheduled. [facility] GI Patient Name: Leon Rider Procedure Date: 12/23/2022 10:12 AM Date of : 1980 Age: 42 Gender: Male Procedure: Upper GI endoscopy Indications: For therapy of esophageal varices Patient Profile: Refer to note in patient chart for documentation of history and physical. Providers: Paul Mishra MD, HA MIX MD Referring MD: ZACK VIGIL MD Medicines: See the Anesthesia note for documentation of the administered medications Moderate Sedation: Sedation provided by anesthesia provider Complications: No immediate complications. Procedure: Pre-Anesthesia Assessment: - Prior to the procedure, a History and Physical was performed, and patient medications and allergies were reviewed. The patient is competent. The risks and benefits of the procedure and the sedation options and risks were discussed with the patient. All questions were answered and informed consent was obtained. Patient identification and proposed procedure were verified by the physician in the pre-procedure area. Mental Status Examination: alert and oriented. Airway Examination: normal oropharyngeal airway and neck mobility. Respiratory Examination: clear to auscultation. CV Examination: normal. Prophylactic Antibiotics: The patient does not require prophylactic antibiotics. Prior Anticoagulants: The patient has taken no previous anticoagulant or antiplatelet agents. After reviewing the risks and benefits, the patient was deemed in satisfactory condition to undergo the procedure. The anesthesia plan was to use monitored anesthesia care (MAC). Immediately prior to administration of medications, the patient was re-assessed for adequacy to receive sedatives. The heart rate, respiratory rate, oxygen saturations, blood pressure, adequacy of pulmonary ventilation, and response to care were monitored throughout the procedure. The physical status of the patient was re-assessed after the procedure. After obtaining informed consent, the endoscope was passed under direct vision. Throughout the procedure, the patient's blood pressure, pulse, and oxygen saturations were monitored continuously. The [id number] Endoscope was introduced through the mouth, and advanced to the second part of duodenum. The upper GI endoscopy was accomplished without difficulty. The patient tolerated the procedure well. Findings: Grade II varices were found in the lower third of the esophagus. Two bands were successfully placed with complete eradication, resulting in deflation of varices. There was no bleeding at the end of the procedure. Moderate portal hypertensive gastropathy was found in the stomach. The examined duodenum was normal. Procedure Code(s): --- Professional --- 44119, Esophagogastroduoden oscopy, flexible, transoral; with band ligation of esophageal/gastric varices Diagnosis Code(s): --- Professional --- I85.00, Esophageal varices without bleeding K76.6, Portal hypertension K31.89, Other diseases of stomach and duodenum CPT copyright 2020 [employer]. All rights reserved. 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 MD Paul Khan MD 12/23/2022 10:36:45 AM This report has been signed elect (more content not included)... [facility] Paul Mishra V - 12/23/2022 [facility] GI Patient Name: Leon Rider Procedure Date: 12/23/2022 10:12 AM Date of : 1980 Age: 42 Gender: Male Procedure: Upper GI endoscopy Indications: For therapy of esophageal varices Patient Profile: Refer to note in patient chart for documentation of history and physical. Providers: Paul Mishra MD, HA MIX MD Referring MD: ZACK VIGIL MD Medicines: See the Anesthesia note for documentation of the administered medications Moderate Sedation: Sedation provided by anesthesia provider Complications: No immediate complications. Procedure: Pre-Anesthesia Assessment: - Prior to the procedure, a History and Physical was performed, and patient medications and allergies were reviewed. The patient is competent. The risks and benefits of the procedure and the sedation options and risks were discussed with the patient. All questions were answered and informed consent was obtained. Patient identification and proposed procedure were verified by the physician in the pre-procedure area. Mental Status Examination: alert and oriented. Airway Examination: normal oropharyngeal airway and neck mobility. Respiratory Examination: clear to auscultation. CV Examination: normal. Prophylactic Antibiotics: The patient does not require prophylactic antibiotics. Prior Anticoagulants: The patient has taken no previous anticoagulant or antiplatelet agents. After reviewing the risks and benefits, the patient was deemed in satisfactory condition to undergo the procedure. The anesthesia plan was to use monitored anesthesia care (MAC). Immediately prior to administration of medications, the patient was re-assessed for adequacy to receive sedatives. The heart rate, respiratory rate, oxygen saturations, blood pressure, adequacy of pulmonary ventilation, and response to care were monitored throughout the procedure. The physical status of the patient was re-assessed after the procedure. After obtaining informed consent, the endoscope was passed under direct vision. Throughout the procedure, the patient's blood pressure, pulse, and oxygen saturations were monitored continuously. The GIF-H190 [id number] Endoscope was introduced through the mouth, and advanced to the second part of duodenum. The upper GI endoscopy was accomplished without difficulty. The patient tolerated the procedure well. Findings: Grade II varices were found in the lower third of the esophagus. Two bands were successfully placed with complete eradication, resulting in deflation of varices. There was no bleeding at the end of the procedure. Moderate portal hypertensive gastropathy was found in the stomach. The examined duodenum was normal. Procedure Code(s): --- Professional --- 52913, Esophagogastroduoden oscopy, flexible, transoral; with band ligation of esophageal/gastric varices Diagnosis Code(s): --- Professional --- I85.00, Esophageal varices without bleeding K76.6, Portal hypertension K31.89, Other diseases of stomach and duodenum CPT copyright 2020 [employer]. All rights reserved. 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 MD Paul Khan MD 12/23/2022 10:36:45 AM This report has been signed electronically. Estimated Blood Loss: Estimated blood loss: none. Number of Addenda: 0 Note Initiated On: 12/23/2022 10:12 AM Total Procedure Duration Time 0 hours 6 minutes [address] seconds [address] [place] [address] IMPRESSION: - Grade II esophageal varices. Completely eradicated. Banded. - Portal hypertensive gastropathy. - Normal examined duodenum. - No specimens collected. Recommendation: - Discharge patient to home. - Patient has a contact number available for emergencies. The signs and symptoms of potential delayed complications were discussed with the patient. Return to normal activities tomorrow. Written discharge instructions were provided to the patient. - Full liquid diet today, advance diet tomorrow - Continue present medications. - Repeat upper endoscopy in 4 weeks for retreatment. - Return to GI office as previously scheduled. [facility] Radiology Study observation (narrative) [facility] Glucose Auto test strip (Bld ) [Mass/Vol]on 12-23-2022 Glucose [Mass/Vol] 135 mg/dL High 70-[address] [facility] Comment on above: Performed By: #### 2 340-8 #### [facility] [address] [place] [address] Glucose [Mass/Vol] 135 mg/dL High 70 - 99 mg/dL [facility] Interpretation and review of laboratory results Abnormal [facility] alth [facility] Basic Metabolic Panel (COPC) on 11-21-2022 CO2 [Moles/Vol] 24 mmol/L Invalid Interpretation Code 20-29 [facility] Comment on above: Order Comment: Anthony feng performed at: [] [facility], [address] [place] [address], [place], [address], , [employer] Worker: Tres Cm, PhD Performed By: #### C 121, C301, C406, C4176, C116, C48, C8, C45, C400, C115 #### Refer to report for performing lab Creatinine [Mass/Vol] 0.63 mg/dL Low 0.76-1.27 [facility] Comment on above: Order Comment: Testi ng performed at: [] [facility], [address] [place] [address], [address], , [employer] Worker: Tres Cm, PhD Performed By: #### C 121, C301, C406, C4176, C116, C48, C8, C45, C400, C115 #### Refer to report for performing lab GFR/1.73 sq M.predicted among non-blacks MDRD (S/P/Bld) [Vol rate/Area] 120 mL/min/{1.73_m2} Invalid Interpretation Code >59 [facility] Comment on above: Order Comment: Testi ng performed at: [] [facility], [address] [place] [address], [address], , [employer] Worker: Tres Cm, PhD Performed By: #### C 121, C301, C406, C4176, C116, C48, C8, C45, C400, C115 #### Refer to report for performing lab Potassium [Moles/Vol] 3.6 mmol/L Invalid Interpretation Code 3.5-5.2 [facility] Comment on above: Order Comment: Testi ng performed at: [] [facility], [address] [place] [address], [address], , [employer] Worker: Tres Cm, PhD Performed By: #### C 121, C301, C406, C4176, C116, C48, C8, C45, C400, C115 #### Refer to report for performing lab Urea nitrogen [Mass/Vol] 5 mg/dL Low 6-24 [facility] Comment on above: Order Comment: Testi ng performed at: [] [facility], [address] [place] [address], [address], , [employer] Worker: Tres Cm, PhD Performed By: #### C 121, C301, C406, C4176, C116, C48, C8, C45, C400, C115 #### Refer to report for performing lab Urea nitrogen/Creatinine [Mass ratio] 8 mg/mg Low 9-20 [facility] Comment on above: Order Comment: Testi ng performed at: [] [facility], [address] [place] [address], [address], , [employer] Worker: Tres Cm, PhD Performed By: #### C 121, C301, C406, C4176, C116, C48, C8, C45, C400, C115 #### Refer to report for performing lab Glucose [Mass/Vol] 108 mg/dL High 70-99 [facility] Comment on above: Order Comment: Testi ng performed at: [] [facility], [address] [place] [address], [address], , [employer] Worker: Tres Cm, PhD Performed By: #### C 121, C301, C406, C4176, C116, C48, C8, C45, C400, C115 #### Refer to report for performing lab Calcium [Mass/Vol] 8.6 mg/dL Low 8.7-10.2 [facility] Comment on above: Order Comment: Testi ng performed at: [] [facility], [address] [place] [address], [address], , [employer] Worker: Tres Cm, PhD Performed By: #### C 121, C301, C406, C4176, C116, C48, C8, C45, C400, C115 #### Refer to report for performing lab Sodium [Moles/Vol] 136 mmol/L Invalid Interpretation Code 134-144 [facility] Comment on above: Order Comment: Testi ng performed at: [] [facility], [address] [place] [address], [address], , [employer] Worker: Tres Cm, PhD Performed By: #### C 121, C301, C406, C4176, C116, C48, C8, C45, C400, C115 #### Refer to report for performing lab Chloride [Moles/Vol] 100 mmol/L Invalid Interpretation Code 96-106 [facility] Comment on above: Order Comment: Testi ng performed at: [] [facility], [address] [place] [address], [address], , [employer] Worker: Tres Cm, PhD Performed By: #### C 121, C301, C406, C4176, C116, C48, C8, C45, C400, C115 #### Refer to report for performing lab CBC with differential (COPC) on 11-21-2022 Basophils (Bld) [#/Vol] 0.1 10*3/uL Invalid Interpretation Code 0.0-0.2 [facility] Comment on above: Order Comment: Testi ng performed at: [] [facility], [address] [place] [address], [address], , [employer] Worker: Tres Cm, PhD Performed By: #### C 121, C301, C406, C4176, C116, C48, C8, C45, C400, C115 #### Refer to report for performing lab Basophils/100 WBC (Bld) 2 % Invalid Interpretation Code Not Estab. [facility] Comment on above: Order Comment: Testi ng performed at: [] [facility], [address] [place] [address], [address], , [employer] Worker: Tres Cm, PhD Performed By: #### C 121, C301, C406, C4176, C116, C48, C8, C45, C400, C115 #### Refer to report for performing lab Eosinophils (Bld) [#/Vol] 0.4 10*3/uL Invali d Interpretation Code 0.0-0.4 [facility] Comment on above: Order Comment: Testi ng performed at: [] [address], [address], , [employer] Worker: Tres Cm, PhD Performed By: #### C 121, C301, C406, C4176, C116, C48, C8, C45, C400, C115 #### Refer to report for performing lab Eosinophils/100 WBC (Bld) 8 % Invali d Interpretation Code Not Estab. [facility] Comment on above: Order Comment: Testi ng performed at: [] [address], [address], , [employer] Worker: Tres Cm, PhD Performed By: #### C 121, C301, C406, C4176, C116, C48, C8, C45, C400, C115 #### Refer to report for performing lab Erythrocyte distribution width (RBC) [Ratio] 14.9 % Invalid Interpretation Code 11.6-15.4 [facility] Comment on above: Order Comment: Testi ng performed at: [] [address], [address], , [employer] Worker: Tres Cm, PhD Performed By: #### C 121, C301, C406, C4176, C116, C48, C8, C45, C400, C115 #### Refer to report for performing lab Hematocrit (Bld) [Volume fraction] 38.1 % Invalid Interpretation Code 37.5-51.0 [facility] Comment on above: Order Comment: Testi ng performed at: [] [address], [address], , [employer] Worker: Tres Cm, PhD Performed By: #### C 121, C301, C406, C4176, C116, C48, C8, C45, C400, C115 #### Refer to report for performing lab Hematology Comments: Note: Invalid Interpretation Code [facility] Comment on above: Order Comment: Testi ng performed at: [] [facility], [address] [place] [address], [address], , [employer] Worker: Tres Cm, PhD Result Comment: Evy fied by microscopic examination. Performed By: #### C 121, C301, C406, C4176, C116, C48, C8, C45, C400, C115 #### Refer to report for performing lab Hemoglobin (Bld) [Mass/Vol] 12.9 g/dL Low 13.0-17.7 [facility] Comment on above: Order Comment: Testi ng performed at: [] [facility], [address] [place] [address], [address], , [employer] Worker: Tres Cm, PhD Performed By: #### C 121, C301, C406, C4176, C116, C48, C8, C45, C400, C115 #### Refer to report for performing lab Immature Grans (Abs) 0.0 x10E3/uL Invalid Interpretation Code 0.0-0.1 [facility] Comment on above: Order Comment: Testi ng performed at: [] [facility], [address] [place] [address], [address], , [employer] Worker: Tres Cm, PhD Performed By: #### C 121, C301, C406, C4176, C116, C48, C8, C45, C400, C115 #### Refer to report for performing lab Immature granulocytes/100 WBC (Bld) 0 % Invalid Interpretation Code Not Estab. [facility] Comment on above: Order Comment: Testi ng performed at: [] [facility], [address] [place] [address], [address], , [employer] Worker: Tres Cm, PhD Performed By: #### C 121, C301, C406, C4176, C116, C48, C8, C45, C400, C115 #### Refer to report for performing lab Lymphocytes (Bld) [#/Vol] 1.0 10*3/uL Invali d Interpretation Code 0.7-3.1 [facility] Comment on above: Order Comment: Testi ng performed at: [] [facility], [address] [place] [address], [address], , [employer] Worker: Tres Cm, PhD Performed By: #### C 121, C301, C406, C4176, C116, C48, C8, C45, C400, C115 #### Refer to report for performing lab Lymphocytes/100 WBC (Bld) 23 % Invali d Interpretation Code Not Estab. [facility] Comment on above: Order Comment: Testi ng performed at: [] [address], [address], , [employer] Worker: Tres Cm, PhD Performed By: #### C 121, C301, C406, C4176, C116, C48, C8, C45, C400, C115 #### Refer to report for performing lab MCH (RBC) [Entitic mass] 29.2 pg Invalid Interpretation Code 26.6-33.0 [facility] Comment on above: Order Comment: Testi ng performed at: [] [facility], [address] [place] [address], [address], , [employer] Worker: Tres Cm, PhD Performed By: #### C 121, C301, C406, C4176, C116, C48, C8, C45, C400, C115 #### Refer to report for performing lab MCHC (RBC) [Mass/Vol] 33.9 g/dL Invalid Interpretation Code 31.5-35.7 [facility] Comment on above: Order Comment: Testi ng performed at: [] [facility], [address] [place] [address], [address], , [employer] Worker: Tres Cm, PhD Performed By: #### C 121, C301, C406, C4176, C116, C48, C8, C45, C400, C115 #### Refer to report for performing lab MCV (RBC) [Entitic vol] 86 fL Invalid Interpretation Code 79-97 [facility] Comment on above: Order Comment: Testi ng performed at: [] [facility], [address] [place] [address], [address], , [employer] Worker: Tres Cm, PhD Performed By: #### C 121, C301, C406, C4176, C116, C48, C8, C45, C400, C115 #### Refer to report for performing lab Monocytes (Bld) [#/Vol] 0.7 10*3/uL Invalid Interpretation Code 0.1-0.9 [facility] Comment on above: Order Comment: Testi ng performed at: [] [facility], [address] [place] [address], [address], , [employer] Worker: Tres Cm, PhD Performed By: #### C 121, C301, C406, C4176, C116, C48, C8, C45, C400, C115 #### Refer to report for performing lab Monocytes/100 WBC (Bld) 15 % Invalid Interpretation Code Not Estab. [facility] Comment on above: Order Comment: Testi ng performed at: [] [facility], [address] [place] [address], [address], , [employer] Worker: Tres Cm, PhD Performed By: #### C 121, C301, C406, C4176, C116, C48, C8, C45, C400, C115 #### Refer to report for performing lab Neutrophils (Absolute) 2.2 x10E3/uL Invalid Interpretation Code 1.4-7.0 [facility] Comment on above: Order Comment: Testi ng performed at: [] [facility], [address] [place] [address], [address], , [employer] Worker: Tres Cm, PhD Performed By: #### C 121, C301, C406, C4176, C116, C48, C8, C45, C400, C115 #### Refer to report for performing lab Neutrophils/100 WBC (Bld) 52 % Invali d Interpretation Code Not Estab. [facility] Comment on above: Order Comment: Testi ng performed at: [] [facility], [address] [place] [address], [address], , [employer] Worker: Tres Cm, PhD Performed By: #### C 121, C301, C406, C4176, C116, C48, C8, C45, C400, C115 #### Refer to report for performing lab Platelets (Bld) [#/Vol] 84 10*3/uL Critically low 150-450 [facility] Comment on above: Order Comment: Testi ng performed at: [] [facility], [address] [place] [address], [address], , [employer] Worker: Tres Cm, PhD Result Comment: Plat elet count verified by examination of peripheral blood smear. Performed By: #### C 121, C301, C406, C4176, C116, C48, C8, C45, C400, C115 #### Refer to report for performing lab RBC (Bld) [#/Vol] 4.42 10*6/uL Invalid Interpretation Code 4.14-5.80 [facility] Comment on above: Order Comment: Testi ng performed at: [] [facility], [address] [place] [address], [address], , [employer] Worker: Tres Cm, PhD Performed By: #### C 121, C301, C406, C4176, C116, C48, C8, C45, C400, C115 #### Refer to report for performing lab WBC (Bld) [#/Vol] 4.3 10*3/uL Invalid Interpretation Code 3.4-10.8 [facility] Comment on above: Order Comment: Testi ng performed at: [] [facility], [address] [place] [address], [address], , [employer] Worker: Tres Cm, PhD Result Comment: Ve rified by repeat analysis Performed By: #### C 121, C301, C406, C4176, C116, C48, C8, C45, C400, C115 #### Refer to report for performing lab GGT (COPC)on 11-21-2022 Gamma glutamyl transferase [Catalytic activity/Vol] 59 U/L Invalid Interpretation Code 0-65 [facility] Comment on above: Order Comment: Testi ng performed at: [] [facility], [address] [place] [address], [address], , [employer] Worker: Tres Cm, PhD Performed By: #### C 121, C301, C406, C4176, C116, C48, C8, C45, C400, C115 #### Refer to report for performing lab Hepatic Panel (COPC)on 11-21 Bilirubin.indirect [Mass/Vol] 0.65 mg/dL High 0.00-0.40 [facility] Comment on above: Order Comment: Testi ng performed at: [] [facility], [address] [place] [address], [address], , [employer] Worker: Tres Cm, PhD Performed By: #### C 121, C301, C406, C4176, C116, C48, C8, C45, C400, C115 #### Refer to report for performing lab AST [Catalytic activity/Vol] 72 U/L High 0-40 [facility] Comment on above: Order Comment: Testi ng performed at: [] [facility], [address] [place], [address], , [employer] Worker: Tres Cm, PhD Performed By: #### C 121, C301, C406, C4176, C116, C48, C8, C45, C400, C115 #### Refer to report for performing lab ALP [Catalytic activity/Vol] 188 U/L High 44-121 [facility] Comment on above: Order Comment: Testi ng performed at: [] [facility], [address] [place] [address], [address], , [employer] Worker: Tres Cm, PhD Performed By: #### C 121, C301, C406, C4176, C116, C48, C8, C45, C400, C115 #### Refer to report for performing lab ALT [Catalytic activity/Vol] 46 U/L High 0-44 [facility] Comment on above: Order Comment: Testi ng performed at: [] [facility], [address] [place] [address], [address], , [employer] Worker: Tres Cm, PhD Performed By: #### C 121, C301, C406, C4176, C116, C48, C8, C45, C400, C115 #### Refer to report for performing lab Albumin [Mass/Vol] 3.1 g/dL Low 4.0-5.0 [facility] Comment on above: Order Comment: Testi ng performed at: [] [facility], [address] [place] [address], [address], , [employer] Worker: Tres Cm, PhD Performed By: #### C 121, C301, C406, C4176, C116, C48, C8, C45, C400, C115 #### Refer to report for performing lab Bilirubin [Mass/Vol] 1.7 mg/dL High 0.0-1.2 [facility] Comment on above: Order Comment: Testi ng performed at: [] [facility], [address] [place] [address], [address], , [employer] Worker: Tres Cm, PhD Performed By: #### C 121, C301, C406, C4176, C116, C48, C8, C45, C400, C115 #### Refer to report for performing lab Protein [Mass/Vol] 7.4 g/dL Invalid Interpretation Code 6.0-8.5 [facility] Comment on above: Order Comment: Testi ng performed at: [] [facility], [address] [place] [address], [address], , [employer] Worker: Tres Cm, PhD Performed By: #### C 121, C301, C406, C4176, C116, C48, C8, C45, C400, C115 #### Refer to report for performing lab HgbA1C ([facility])on 11-21-2022 HbA1c (Bld) [Mass fraction] 6.6 % High 4.8-5.6 [facility] Comment on above: Order Comment: Testi ng performed at: [] [facility], [address] [place] [address], [address], , [employer] Worker: Tres Cm, PhD Result Comment: Pred iabetes: 5.7 - 6.4 Diabetes: >6.4 Glycemic control for adults with diabetes: <7.0 Performed By: #### C 121, C301, C406, C4176, C116, C48, C8, C45, C400, C115 #### Refer to report for performing lab Lipid Panel ([facility])on 023 Cholesterol in HDL [Mass/Vol] 48 mg/dL Invalid Interpretation Code >39 [facility] Comment on above: Order Comment: Testi ng performed at: [] [facility], [address] [place] [address], [address], , [employer] Worker: Tres Cm, PhD Performed By: #### C 121, C301, C406, C4176, C116, C48, C8, C45, C400, C115 #### Refer to report for performing lab LDL Chol Calc ([facility]) 151 mg/dL High 0-99 [facility] Comment on above: Order Comment: Testi ng performed at: [] [facility], [address] [place] [address], [address], , [employer] Worker: Tres Cm, PhD Performed By: #### C 121, C301, C406, C4176, C116, C48, C8, C45, C400, C115 #### Refer to report for performing lab VLDL Cholesterol Elliott 25 mg/dL Invalid Interpretation Code 5-40 [facility] Comment on above: Order Comment: Testi ng performed at: [] [facility], [address] [place] [address], [address], , [employer] Worker: Tres Cm, PhD Performed By: #### C 121, C301, C406, C4176, C116, C48, C8, C45, C400, C115 #### Refer to report for performing lab Triglyceride [Mass/Vol] 139 mg/dL Invalid Interpretation Code 0-149 [facility] Comment on above: Order Comment: Testi ng performed at: [] [facility], [address] [place] [address], [address], , [employer] Worker: Tres Cm, PhD Performed By: #### C 121, C301, C406, C4176, C116, C48, C8, C45, C400, C115 #### Refer to report for performing lab Cholesterol [Mass/Vol] 224 mg/dL High 100-199 [facility] Comment on above: Order Comment: Testi ng performed at: [] [facility], [address] [place] [address], [address], , [employer] Worker: Tres mC, PhD Performed By: #### C 121, C301, C406, C4176, C116, C48, C8, C45, C400, C115 #### Refer to report for performing lab Magnesium (COPC)on 3 Magnesium [Mass/Vol] 2.0 mg/dL Invalid Interpretation Code 1.6-2.3 [facility] Comment on above: Order Comment: Testi ng performed at: [] [facility], [address] [place] [address], [address], , [employer] Worker: Tres Cm, PhD Performed By: #### C 121, C301, C406, C4176, C116, C48, C8, C45, C400, C115 #### Refer to report for performing lab PSA, Free and Total ([facility])o n 11-21-2022 % Free PSA 50.0 % Invalid Interpretation Code [facility] Comment on above: Order Comment: Testi ng performed at: [CB] [facility], [address] [place], [address], , [employer] Worker: Tres Cm, PhD Result Comment: The table below lists the probability of prostate cancer for men with non-suspicious SAMANTHA results and total PSA between 4 and 10 ng/mL, by patient age (Evan et al, ELSA 1998, 279:1542). % Free PSA 50-64 yr 65-75 yr 0.00-10.00% 56% 55% 10.01-15.00% 24% 35% 15.01-20.00% 17% 23% 20.01-25.00% 10% 20% >25.00% 5% 9% Please note: Evan et al did not make specific recommendations regarding the use of percent free PSA for any other population of men. Performed By: #### C 121, C301, C406, C4176, C116, C48, C8, C45, C400, C115 #### Refer to report for performing lab Prostate specific Ag [Mass/Vol] 0.3 ng/mL Invalid Interpretation Code 0.0-4.0 [facility] Comment on above: Order Comment: Testi ng performed at: [CB] [facility], [address] [facility], [place], [address], , [employer] Worker: Tres Cm, PhD Result Comment: Mike ORDONEZ methodology. According to the [place] [employer], Serum PSA should decrease and remain at undetectable levels after radical prostatectomy. The AUA defines biochemical recurrence as an initial PSA value 0.2 ng/mL or greater followed by a subsequent confirmatory PSA value 0.2 ng/mL or greater. Values obtained with different assay methods or kits cannot be used interchangeably. Results cannot be interpreted as absolute evidence of the presence or absence of malignant disease. Performed By: #### C 121, C301, C406, C4176, C116, C48, C8, C45, C400, C115 #### Refer to report for performing lab PSA, Free 0.15 ng/mL Invalid Interpretation Code N/A [facility] Comment on above: Order Comment: Testi ng performed at: [] [facility], [address] [place] [address], [address], , [employer] Worker: Tres Cm, PhD Result Comment: Mike ORDONEZ methodology. Performed By: #### C 121, C301, C406, C4176, C116, C48, C8, C45, C400, C115 #### Refer to report for performing lab Phosphorus (COPC)on 11-21-19 23 Phosphate [Mass/Vol] 4.0 mg/dL Invalid Interpretation Code 2.8-4.1 [facility] Comment on above: Order Comment: Testi ng performed at: [] [facility], [address] [place] [address], [address], , [employer] Worker: Tres Cm, PhD Performed By: #### C 121, C301, C406, C4176, C116, C48, C8, C45, C400, C115 #### Refer to report for performing lab TSH (COPC)on 11-21-2022 TSH 1.800 uIU/mL Invalid Interpretation Code 0.450-4.50 0 [facility] Comment on above: Order Comment: Testi ng performed at: [] [facility], [address] [place], [address], , [employer] Worker: Tres Cm, PhD Performed By: #### C 121, C301, C406, C4176, C116, C48, C8, C45, C400, C115 #### Refer to report for performing lab Uric Acid (COPC)on 3 Urate [Mass/Vol] 3.6 mg/dL Low 3.8-8.4 [facility] Comment on above: Order Comment: Testi ng performed at: [] [facility], [address] [place] [address], [address], , [employer] Worker: Tres Cm, PhD Result Comment: Ther apeutic target for gout patients: <6.0 Performed By: #### C 121, C301, C406, C4176, C116, C48, C8, C45, C400, C115 #### Refer to report for performing lab Urinalysis and Microscopic w / Rfx to Cx ([facility])on 11-21-2022 Bacteria None seen Invalid Interpretation Code None seen/Few [facility] Comment on above: Order Comment: Testi ng performed at: [] [facility], [address] [place] [address], [address], , [employer] Worker: Tres Cm, PhD Performed By: #### C 121, C301, C406, C4176, C116, C48, C8, C45, C400, C115 #### Refer to report for performing lab Casts None seen Invalid Interpretation Code None seen [facility] Comment on above: Order Comment: Testi ng performed at: [] [facility], [address] [place] [address], [address], , [employer] Worker: Tres Cm, PhD Performed By: #### C 121, C301, C406, C4176, C116, C48, C8, C45, C400, C115 #### Refer to report for performing lab Epithelial cells LM Ql (Urine sed) None seen Invalid Interpretation Code 0 - 10 [facility] Comment on above: Order Comment: Testi ng performed at: [] [facility], [address] [place] [address], [address], , [employer] Worker: Tres Cm, PhD Performed By: #### C 121, C301, C406, C4176, C116, C48, C8, C45, C400, C115 #### Refer to report for performing lab Mucus Threads Present Invalid Interpretation Code Not Estab. [facility] Comment on above: Order Comment: Testi ng performed at: [] [facility], [address] [place] [address], [address], , [employer] Worker: Tres Cm, PhD Performed By: #### C 121, C301, C406, C4176, C116, C48, C8, C45, C400, C115 #### Refer to report for performing lab RBC None seen Invalid Interpretation Code 0 - 2 [facility] Comment on above: Order Comment: Testi ng performed at: [] [facility], [address] [place] [address], [address], , [employer] Worker: Tres Cm, PhD Performed By: #### C 121, C301, C406, C4176, C116, C48, C8, C45, C400, C115 #### Refer to report for performing lab WBC None seen Invalid Interpretation Code 0 - 5 [facility] Comment on above: Order Comment: Testi ng performed at: [] [facility], [address] [place] [address], [address], , [employer] Worker: Tres Cm, PhD Performed By: #### C 121, C301, C406, C4176, C116, C48, C8, C45, C400, C115 #### Refer to report for performing lab Appearance (U) Clear Invalid Interpretation Code Clear [facility] Comment on above: Order Comment: Testi ng performed at: [] [facility], [address] [place] [address], [address], , [employer] Worker: Tres Cm, PhD Performed By: #### C 121, C301, C406, C4176, C116, C48, C8, C45, C400, C115 #### Refer to report for performing lab Bilirubin Ql (U) Negative Invalid Interpretation Code Negative [facility] Comment on above: Order Comment: Testi ng performed at: [] [facility], [address] [place] [address], [phone], , [employer] Worker: Tres Cm, PhD Performed By: #### C 121, C301, C406, C4176, C116, C48, C8, C45, C400, C115 #### Refer to report for performing lab Color (U) Yellow Invalid Interpretation Code Yellow [facility] Comment on above: Order Comment: Testi ng performed at: [] [facility], [address] [place] [address], [phone], , [employer] And [employer] Worker: Tres Cm, PhD Performed By: #### C 121, C301, C406, C4176, C116, C48, C8, C45, C400, C115 #### Refer to report for performing lab Glucose Ql (U) 2+ Abnormal Negative [facility] Comment on above: Order Comment: Testi ng performed at: [] [facility], [address] [place] [address], [phone], , [employer] Worker: Tres Cm, PhD Performed By: #### C 121, C301, C406, C4176, C116, C48, C8, C45, C400, C115 #### Refer to report for performing lab Ketones Ql (U) Negative Invalid Interpretation Code Negative [facility] Comment on above: Order Comment: Testi ng performed at: [] [facility], [address] [place] [address], [phone], , [employer] And [employer] Worker: Tres Cm, PhD Performed By: #### C 121, C301, C406, C4176, C116, C48, C8, C45, C400, C115 #### Refer to report for performing lab Microscopic Examination See below: Invalid Interpretation Code [facility] Comment on above: Order Comment: Testi ng performed at: [] [facility], [address] [place] [address], [phone], , [employer] And [employer] Worker: Tres Cm, PhD Result Comment: Micr oscopic was indicated and was performed. Performed By: #### C 121, C301, C406, C4176, C116, C48, C8, C45, C400, C115 #### Refer to report for performing lab Nitrite, Urine Negative Invalid Interpretation Code Negative [facility] Comment on above: Order Comment: Testi ng performed at: [] [facility], [address] [place] [address], [phone], , [employer] Worker: Tres Cm, PhD Performed By: #### C 121, C301, C406, C4176, C116, C48, C8, C45, C400, C115 #### Refer to report for performing lab Occult Blood Negative Invalid Interpretation Code Negative [facility] Comment on above: Order Comment: Testi ng performed at: [CB] [address], [phone], , [employer] And [employer] Worker: Tres Cm, PhD Performed By: #### C 121, C301, C406, C4176, C116, C48, C8, C45, C400, C115 #### Refer to report for performing lab pH (U) 6.5 [pH] Invalid Interpretation Code 5.0-7.5 [facility] Comment on above: Order Comment: Testi ng performed at: [] [facility], [address] [place] [address], [phone], , [employer] Worker: Tres Cm, PhD Performed By: #### C 121, C301, C406, C4176, C116, C48, C8, C45, C400, C115 #### Refer to report for performing lab Protein Ql (U) Negative Invalid Interpretation Code Negative/T race [facility] Comment on above: Order Comment: Testi ng performed at: [] [facility], [address] [place] [address], [phone], , [employer] Worker: Tres Cm, PhD Performed By: #### C 121, C301, C406, C4176, C116, C48, C8, C45, C400, C115 #### Refer to report for performing lab Specific gravity (U) [Rel density] 1.024 Invalid Interpretation Code 1.005-1.03 0 [facility] Comment on above: Order Comment: Testi ng performed at: [] [facility], [address] [place] [address], [phone], , [employer] Worker: Tres Cm, PhD Performed By: #### C 121, C301, C406, C4176, C116, C48, C8, C45, C400, C115 #### Refer to report for performing lab Urobilinogen,Semi-Qn 1.0 mg/dL Invalid Interpretation Code 0.2-1.0 [facility] Comment on above: Order Comment: Testi ng performed at: [] [facility], [address] [place] [address], [phone], , [employer] Worker: Tres Cm, PhD Performed By: #### C 121, C301, C406, C4176, C116, C48, C8, C45, C400, C115 #### Refer to report for performing lab WBC Esterase Negative Invalid Interpretation Code Negative [facility] Comment on above: Order Comment: Testi ng performed at: [] [facility], [address] [place] [address], [address], , [employer] Worker: Tres Cm, PhD Performed By: #### C 121, C301, C406, C4176, C116, C48, C8, C45, C400, C115 #### Refer to report for performing lab Urine, Random, Albumin/Crea (COPC)on 11-21-2022 Alb/Creat Ratio 8 mg/g creat Invalid Interpretation Code 0-29 [facility] Comment on above: Order Comment: Testi ng performed at: [facility], [address] [place], [address], , [employer] Worker: Tres Cm, PhD Result Comment: Norm al: 0 - 29 Moderately increased: 30 - 300 Severely increased: >300 Performed By: #### C 121, C301, C406, C4176, C116, C48, C8, C45, C400, C115 #### Refer to report for performing lab Albumin, Urine 8.1 ug/mL Invalid Interpretation Code Not Estab. [facility] Comment on above: Order Comment: Testi ng performed at: [] [facility], [address] [place] [address], [phone], , [employer] Worker: Tres Cm, PhD Performed By: #### C 121, C301, C406, C4176, C116, C48, C8, C45, C400, C115 #### Refer to report for performing lab Creatinine, Urine 102.1 mg/dL Invalid Interpretation Code Not Estab. [facility] Comment on above: Order Comment: Testi ng performed at: [] [facility], [address] [place] [address], [place], [address], , [employer] Worker: Tres Cm, PhD Performed By: #### C 121, C301, C406, C4176, C116, C48, C8, C45, C400, C115 #### Refer to report for performing lab Urinalysis and Microscopic w / Rfx to Cx ([facility])on 11-20-2022 Microscopic Examination Comment Normal [facility] Comment on above: Order Comment: Testi ng performed at: [] [facility], [address] [place], [address], , [employer] Worker: Tres Cm, PhD Result Comment: Micr oscopic follows if indicated. Performed By: #### C 121, C301, C406, C4176, C116, C48, C8, C45, C400, C115 #### Refer to report for performing lab Urinalysis Reflex Comment Normal [facility] Comment on above: Order Comment: Anthony feng performed at: [] [facility], [address] [facility], [place], [address], , [employer] Worker: Tres Cm, PhD Result Comment: This specimen will not reflex to a Urine Culture. Performed By: #### C 121, C301, C406, C4176, C116, C48, C8, C45, C400, C115 #### Refer to report for performing lab XR ABDOMEN 1 VIEWon 11-17-19 XR ABDOMEN 1 VIEW EXAMINATION TYPE: XR ABDOMEN 1 VIEW DATE OF EXAM : 11/17/2022 8:24 AM HISTORY: N20.0, patient reports history of right kidney stone. No current pain COMPARISON: Abdominal x-ray 03/25/2022 FINDINGS: No definite renal or ureteral stone identified. There is some limitation due to overlying bowel gas and stool. Small calcified phleboliths in the left pelvis are noted. No bowel dilatation or obstruction. No obvious organomegaly. IMPRESSION: No radiographic evidence for renal stone. -------- FINAL REPORT -------- Dictated By: Mars Ortega Dictated Date: 11/17/2022 08:37 Assigned Physician: Mars Ortega Reviewed and Electronically Signed By: Mars Ortega Signed Date: 11/17/2022 08:39 Workstation ID: [id number] Transcribed By: Self Edit Transcribed Date: 11/17/2022 08:37 Normal [facility] XR Abdomen Single viewon No radiographic evidence for renal stone. -------- FINAL REPORT -------- Dictated By: Mars Ortega Dictated Date: 11/17/2022 08:37 Assigned Physician: Mars Ortega Reviewed and Electronically Signed By: Mars Ortega Signed Date: 11/17/2022 08:39 Workstation ID: [id number] Transcribed By: Self Edit Transcribed Date: 11/17/2022 08:37 POWERSCRIBE EXAMINATION TYPE: XR ABDOMEN 1 VIEW DATE OF EXAM : 11/17/2022 8:24 AM HISTORY: N20.0, patient reports history of right kidney stone. No current pain COMPARISON: Abdominal x-ray 03/25/2022 FINDINGS: No definite renal or ureteral stone identified. There is some limitation due to overlying bowel gas and stool. Small calcified phleboliths in the left pelvis are noted. No bowel dilatation or obstruction. No obvious organomegaly. POWERSCRIBE Mars Ortega MD - 11/17/2022 EXAMINATION TYPE: XR ABDOMEN 1 VIEW DATE OF EXAM : 11/17/2022 8:24 AM HISTORY: N20.0, patient reports history of right kidney stone. No current pain COMPARISON: Abdominal x-ray 03/25/2022 FINDINGS: No definite renal or ureteral stone identified. There is some limitation due to overlying bowel gas and stool. Small calcified phleboliths in the left pelvis are noted. No bowel dilatation or obstruction. No obvious organomegaly. IMPRESSION: No radiographic evidence for renal stone. -------- FINAL REPORT -------- Dictated By: Mars Ortega Dictated Date: 11/17/2022 08:37 Assigned Physician: Mars Ortega Reviewed and Electronically Signed By: Mars Ortega Signed Date: 11/17/2022 08:39 Workstation ID: [id number] Transcribed By: Self Edit Transcribed Date: 11/17/2022 08:37 [employer] Radiology Study observation (narrative) [facility] XR Abdomen Single viewOrdere d By: Mars Ortega on 11-17-2022 [facility] Work Phone: [facility] 10-27-2022 Esophagogastroduodenoscopy [facility] Patient Name: Leon Rider Procedure Date: 10/27/2022 5:22 PM Date of : 1980 Age: 42 Gender: Male Procedure: Upper GI endoscopy Indications: For therapy of esophageal varices Providers: DO Gabriela HENDRICKSON MD: CARLOS JIMÉNEZ MD Medicines: Deep sedation was administered, Sedation Administered by an Anesthesia Professional Complications: No immediate complications. Procedure: Pre-Anesthesia Assessment: - Prior to the procedure, a History and Physical was performed, and patient medications and allergies were reviewed. The patient is competent. The risks and benefits of the procedure and the sedation options and risks were discussed with the patient. All questions were answered and informed consent was obtained. Patient identification and proposed procedure were verified by the physician, the nurse and the anesthesiologist in the pre-procedure area in the endoscopy suite. Mental Status Examination: alert and oriented. Airway Examination: normal oropharyngeal airway and neck mobility. Respiratory Examination: clear to auscultation. CV Examination: normal. Prophylactic Antibiotics: The patient does not require prophylactic antibiotics. Prior Anticoagulants: The patient has taken no anticoagulant or antiplatelet agents. ASA Grade Assessment: IV - A patient with severe systemic disease that is a constant threat to life. After reviewing the risks and benefits, the patient was deemed in satisfactory condition to undergo the procedure. The anesthesia plan was to use monitored anesthesia care (MAC). Immediately prior to administration of medications, the patient was re-assessed for adequacy to receive sedatives. The heart rate, respiratory rate, oxygen saturations, blood pressure, adequacy of pulmonary ventilation, and response to care were monitored throughout the procedure. The physical status of the patient was re-assessed after the procedure. After obtaining informed consent, the endoscope was passed under direct vision. Throughout the procedure, the patient's blood pressure, pulse, and oxygen saturations were monitored continuously. The gastroscope was introduced through the mouth, and advanced to the second part of duodenum. The upper GI endoscopy was accomplished without difficulty. The patient tolerated the procedure well. Findings: Leawood-colored mucosa was present. Biopsied during prior EGD. Two columns of grade II varices with no bleeding and no stigmata of recent bleeding were found in the lower third of the esophagus. They were 8 to 11 mm in largest diameter. No red bailey signs were present. Three bands were successfully placed with complete eradication, resulting in deflation of varices. There was no bleeding during and at the end of the procedure. Diffuse portal hypertensive gastropathy was found in the cardia, in the gastric fundus and in the gastric body. Mild gastric antral vascular ectasia without bleeding was present in the gastric antrum, in the prepyloric region of the stomach and in the pylorus. The examined duodenum was normal. Procedure Code(s): --- Professional --- 42134, Esophagogastroduoden oscopy, flexible, transoral; with band ligation of esophageal/gastric varices Diagnosis Code(s): --- Professional --- K22.8, Other specified diseases of esophagus I85.00, Esophageal varices without bleeding K76.6, Portal hypertension K31.89, Other diseases of stomach and duodenum K31.819, Angiodysplasia of stomach and duodenum without bleeding CPT copyright 2020 [employer]. All rights reserved. 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 DO SUSANA Martinez DO 10/27/2022 5:51:19 PM This report has been signed electronically. Number of Addenda: 0 Estimated Blood Loss: Estimated blood loss was minimal. Total Procedure Duration Time 0 hours 9 minutes [address] [place], [place] [id number] IMPRESSION: - Leawood-colored mucosa suspicious for Osborn's esophagus. - Grade II esophageal varices with no bleeding and no stigmata of recent bleeding. Completely eradicated. Banded. - Portal hypertensive gastropathy. - Gastric antral vascular ectasia without bleeding. - Normal examined duodenum. - No specimens collected. Recommendation: - Patient has a contact number available for emergencies. The signs and symptoms of potential delayed complications were discussed with the patient. Return to normal activities tomorrow. Written discharge instructions were provided to the patient. - Full liquid diet today. Soft diet tomorrow. Advance as tolerated on Tuesday. - Continue present medications. - Repeat upper endoscopy in 2-4 weeks for retreatment. - Return to referring physician as pr (more content not included)... Normal [facility] EGD Anesthesia - [facility] [place] NDOSCOPYon 10-27-2022 - Leawood-colored mucosa suspicious for Osborn's esophagus. - Grade II esophageal varices with no bleeding and no stigmata of recent bleeding. Completely eradicated. Banded. - Portal hypertensive gastropathy. - Gastric antral vascular ectasia without bleeding. - Normal examined duodenum. - No specimens collected. Recommendation: - Patient has a contact number available for emergencies. The signs and symptoms of potential delayed complications were discussed with the patient. Return to normal activities tomorrow. Written discharge instructions were provided to the patient. - Full liquid diet today. Soft diet tomorrow. Advance as tolerated on Tuesday. - Continue present medications. - Repeat upper endoscopy in 2-4 weeks for retreatment. - Return to referring physician as previously scheduled. - Discharge patient to home. [facility] Patient Name: Leon Rider Procedure Date: 10/27/2022 5:22 PM Date of : 1980 Age: 42 Gender: Male Procedure: Upper GI endoscopy Indications: For therapy of esophageal varices Providers: SUSANA LEBLANC DO Referring MD: CARLOS JIMÉNEZ MD Medicines: Deep sedation was administered, Sedation Administered by an Anesthesia Professional Complications: No immediate complications. Procedure: Pre-Anesthesia Assessment: - Prior to the procedure, a History and Physical was performed, and patient medications and allergies were reviewed. The patient is competent. The risks and benefits of the procedure and the sedation options and risks were discussed with the patient. All questions were answered and informed consent was obtained. Patient identification and proposed procedure were verified by the physician, the nurse and the anesthesiologist in the pre-procedure area in the endoscopy suite. Mental Status Examination: alert and oriented. Airway Examination: normal oropharyngeal airway and neck mobility. Respiratory Examination: clear to auscultation. CV Examination: normal. Prophylactic Antibiotics: The patient does not require prophylactic antibiotics. Prior Anticoagulants: The patient has taken no anticoagulant or antiplatelet agents. ASA Grade Assessment: IV - A patient with severe systemic disease that is a constant threat to life. After reviewing the risks and benefits, the patient was deemed in satisfactory condition to undergo the procedure. The anesthesia plan was to use monitored anesthesia care (MAC). Immediately prior to administration of medications, the patient was re-assessed for adequacy to receive sedatives. The heart rate, respiratory rate, oxygen saturations, blood pressure, adequacy of pulmonary ventilation, and response to care were monitored throughout the procedure. The physical status of the patient was re-assessed after the procedure. After obtaining informed consent, the endoscope was passed under direct vision. Throughout the procedure, the patient's blood pressure, pulse, and oxygen saturations were monitored continuously. The gastroscope was introduced through the mouth, and advanced to the second part of duodenum. The upper GI endoscopy was accomplished without difficulty. The patient tolerated the procedure well. Findings: Leawood-colored mucosa was present. Biopsied during prior EGD. Two columns of grade II varices with no bleeding and no stigmata of recent bleeding were found in the lower third of the esophagus. They were 8 to 11 mm in largest diameter. No red bailey signs were present. Three bands were successfully placed with complete eradication, resulting in deflation of varices. There was no bleeding during and at the end of the procedure. Diffuse portal hypertensive gastropathy was found in the cardia, in the gastric fundus and in the gastric body. Mild gastric antral vascular ectasia without bleeding was present in the gastric antrum, in the prepyloric region of the stomach and in the pylorus. The examined duodenum was normal. Procedure Code(s): --- Professional --- 11637, Esophagogastroduoden oscopy, flexible, transoral; with band ligation of esophageal/gastric varices Diagnosis Code(s): --- Professional --- K22.8, Other specified diseases of esophagus I85.00, Esophageal varices without bleeding K76.6, Portal hypertension K31.89, Other diseases of stomach and duodenum K31.819, Angiodysplasia of stomach and duodenum without bleeding CPT copyright 2020 [employer]. All rights reserved. 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 [facility] Susana Leblanc DO - 10/27/2022 [facility] Patient Name: Leon Rider Procedure Date: 10/27/2022 5:22 PM Date of : 1980 Age: 42 Gender: Male Procedure: Upper GI endoscopy Indications: For therapy of esophageal varices Providers: DO Gabriela HENDRICKSON MD: CARLOS JIMÉNEZ MD Medicines: Deep sedation was administered, Sedation Administered by an Anesthesia Professional Complications: No immediate complications. Procedure: Pre-Anesthesia Assessment: - Prior to the procedure, a History and Physical was performed, and patient medications and allergies were reviewed. The patient is competent. The risks and benefits of the procedure and the sedation options and risks were discussed with the patient. All questions were answered and informed consent was obtained. Patient identification and proposed procedure were verified by the physician, the nurse and the anesthesiologist in the pre-procedure area in the endoscopy suite. Mental Status Examination: alert and oriented. Airway Examination: normal oropharyngeal airway and neck mobility. Respiratory Examination: clear to auscultation. CV Examination: normal. Prophylactic Antibiotics: The patient does not require prophylactic antibiotics. Prior Anticoagulants: The patient has taken no anticoagulant or antiplatelet agents. ASA Grade Assessment: IV - A patient with severe systemic disease that is a constant threat to life. After reviewing the risks and benefits, the patient was deemed in satisfactory condition to undergo the procedure. The anesthesia plan was to use monitored anesthesia care (MAC). Immediately prior to administration of medications, the patient was re-assessed for adequacy to receive sedatives. The heart rate, respiratory rate, oxygen saturations, blood pressure, adequacy of pulmonary ventilation, and response to care were monitored throughout the procedure. The physical status of the patient was re-assessed after the procedure. After obtaining informed consent, the endoscope was passed under direct vision. Throughout the procedure, the patient's blood pressure, pulse, and oxygen saturations were monitored continuously. The gastroscope was introduced through the mouth, and advanced to the second part of duodenum. The upper GI endoscopy was accomplished without difficulty. The patient tolerated the procedure well. Findings: Leawood-colored mucosa was present. Biopsied during prior EGD. Two columns of grade II varices with no bleeding and no stigmata of recent bleeding were found in the lower third of the esophagus. They were 8 to 11 mm in largest diameter. No red bailey signs were present. Three bands were successfully placed with complete eradication, resulting in deflation of varices. There was no bleeding during and at the end of the procedure. Diffuse portal hypertensive gastropathy was found in the cardia, in the gastric fundus and in the gastric body. Mild gastric antral vascular ectasia without bleeding was present in the gastric antrum, in the prepyloric region of the stomach and in the pylorus. The examined duodenum was normal. Procedure Code(s): --- Professional --- 57878, Esophagogastroduoden oscopy, flexible, transoral; with band ligation of esophageal/gastric varices Diagnosis Code(s): --- Professional --- K22.8, Other specified diseases of esophagus I85.00, Esophageal varices without bleeding K76.6, Portal hypertension K31.89, Other diseases of stomach and duodenum K31.819, Angiodysplasia of stomach and duodenum without bleeding CPT copyright 2020 [employer]. All rights reserved. 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 DO SUSANA Martinez DO 10/27/2022 5:51:19 PM This report has been signed electronically. Number of Addenda: 0 Estimated Blood Loss: Estimated blood loss was minimal. Total Procedure Duration Time 0 hours 9 minutes [address] [place] [address] IMPRESSION: - Leawood-colored mucosa suspicious for Osborn's esophagus. - Grade II esophageal varices with no bleeding and no stigmata of recent bleeding. Completely eradicated. Banded. - Portal hypertensive gastropathy. - Gastric antral vascular ectasia without bleeding. - Normal examined duodenum. - No specimens collected. Recommendation: - Patient has a contact number available for emergencies. The signs and symptoms of potential delayed complications were discussed with the patient. Return to normal activities tomorrow. Written discharge instructions were provided to the patient. - Full liquid diet today. Soft diet tomorrow. Advance as tolerated on Tuesday. - Continue present medicati (more content not included)... [employer] Radiology Study observation (narrative) [facility] Glucose Auto test strip (Bld ) [Mass/Vol]on 10-27-2022 Glucose [Mass/Vol] 102 mg/dL High 70-99 [facility] Comment on above: Performed By: #### 2 340-8 #### [facility] [address] [place] [address] Glucose [Mass/Vol] 102 mg/dL High 70 - 99 mg/dL [facility] Interpretation and review of laboratory results Abnormal Gia [facility] alth [facility] US ABDOMEN LIMITEDon 022 US ABDOMEN LIMITED EXAMINATION TYPE: US ABDOMEN LIMITED DATE OF EXAM : 09/02/2022 7:41 AM HISTORY: K75.81, nonalcoholic steatohepatitis COMPARISON: CTA 04/13/2022 FINDINGS: RIGHT upper quadrant ultrasound performed. Liver demonstrates diffuse coarsening of echogenicity with masking of internal structures and a nodular surface, consistent with cirrhotic morphology. Liver measures 15.4 cm in length. No obvious intrahepatic ductal dilatation. Pancreas is partially obscured by overlying bowel gas. Gallbladder is incompletely distended without visible gallstones. Gallbladder wall thickness measures 2 mm. Sonographic Moyer's sign is reported as negative. Common bile duct is nondilated at 5 mm. No right-sided hydronephrosis is demonstrated. IMPRESSION: 1. Cirrhotic hepatic morphology. 2. No appreciable gallstones nor acute cholecystitis. 3. No appreciable biliary ductal dilatation. 4. Poorly visualized pancreas due to overlying bowel gas. -------- FINAL REPORT -------- Dictated By: Sin Maya Dictated Date: 09/02/2022 08:06 Assigned Physician: Sin Maya Reviewed and Electronically Signed By: Sin Maya Signed Date: 09/02/2022 08:19 Workstation ID: [id number] Transcribed By: Self Edit Transcribed Date: 09/02/2022 08:[address] [facility] US Abdomen Limitedon 022 1. Cirrhotic hepatic morphology. 2. No appreciable gallstones nor acute cholecystitis. 3. No appreciable biliary ductal dilatation. 4. Poorly visualized pancreas due to overlying bowel gas. -------- FINAL REPORT -------- Dictated By: Sin Maya Dictated Date: 09/02/2022 08:06 Assigned Physician: Sin Maya Reviewed and Electronically Signed By: Sin Maya Signed Date: 09/02/2022 08:19 Workstation ID: [id number] Transcribed By: Self Edit Transcribed Date: 09/02/2022 08:06 [employer] EXAMINATION TYPE: US ABDOMEN LIMITED DATE OF EXAM : 09/02/2022 7:41 AM HISTORY: K75.81, nonalcoholic steatohepatitis COMPARISON: CTA 04/13/2022 FINDINGS: RIGHT upper quadrant ultrasound performed. Liver demonstrates diffuse coarsening of echogenicity with masking of internal structures and a nodular surface, consistent with cirrhotic morphology. Liver measures 15.4 cm in length. No obvious intrahepatic ductal dilatation. Pancreas is partially obscured by overlying bowel gas. Gallbladder is incompletely distended without visible gallstones. Gallbladder wall thickness measures 2 mm. Sonographic Moyer's sign is reported as negative. Common bile duct is nondilated at 5 mm. No right-sided hydronephrosis is demonstrated. [employer]CRIBE Sin Maya MD - 09/02/2022 EXAMINATION TYPE: US ABDOMEN LIMITED DATE OF EXAM : 09/02/2022 7:41 AM HISTORY: K75.81, nonalcoholic steatohepatitis COMPARISON: CTA 04/13/2022 FINDINGS: RIGHT upper quadrant ultrasound performed. Liver demonstrates diffuse coarsening of echogenicity with masking of internal structures and a nodular surface, consistent with cirrhotic morphology. Liver measures 15.4 cm in length. No obvious intrahepatic ductal dilatation. Pancreas is partially obscured by overlying bowel gas. Gallbladder is incompletely distended without visible gallstones. Gallbladder wall thickness measures 2 mm. Sonographic Moyer's sign is reported as negative. Common bile duct is nondilated at 5 mm. No right-sided hydronephrosis is demonstrated. IMPRESSION: 1. Cirrhotic hepatic morphology. 2. No appreciable gallstones nor acute cholecystitis. 3. No appreciable biliary ductal dilatation. 4. Poorly visualized pancreas due to overlying bowel gas. -------- FINAL REPORT -------- Dictated By: Sin Maya Dictated Date: 09/02/2022 08:06 Assigned Physician: Sin Maya Reviewed and Electronically Signed By: Sin Maya Signed Date: 09/02/2022 08:19 Workstation ID: [id number] Transcribed By: Self Edit Transcribed Date: 09/02/2022 08:06 [facility] Radiology Study observation (narrative) [facility] US Abdomen LimitedOrdered By : Sin Maya on 09-02-2022 [facility] [employer] Work Phone: ECG 12 leadon 04-14-2022 P Wave [place] 69 degrees [facility] P-R Interval 164 ms [facility] th Pathologist interpretation (Bld) [Interp] Sinus tachycardia Nonspecific T wave abnormality Abnormal ECG Confirmed by Susana Valdes MD ([id number]), business editor Donavon Simmons ([id number]) on 04/14/2022 7:53:39 AM [facility] Q-T Interval 374 ms [facility] th QRS Duration 82 ms [facility] th QTc 484 ms [facility] R [place] 20 degrees [facility] Troponin T.cardiac [Mass/Vol] 35 ug/L degrees [facility] Laboratory - Coagulationon 0 04-14-2022 ACT Coag (Bld) 101 s BPM [facility] Transthoracic echocardiogram (TTE) complete with PRN contrast, bubble, strain, and 3D order panelOrdered By: Jonas Baker on 04-14-2022 Ao VTI 32.6 cm [employer] Work Phone: Aortic Valve Cusp Separation mMode 1.7 cm [employer] Work Phone: Ascending Aorta 3.7 cm [facility] Work Phone: AV Mean Gradient 7 mmHg [employer] Work Phone: AV Peak Gradient 14 mmHg [employer] Work Phone: AV Peak [place] 1.9 m/s [facility] Work Phone: AV Velocity Ratio 0.84 [employer] Phone: Body surface area Derived from formula 2.89 m2 [facility] Work Phone: E Wave Deceleration Time 132 ms 119 - 242 ms [employer] Work Phone: E/E' Ratio Averaged 11 Tayla ty [employer] Work Phone: E/E' Ratio Lateral 10 [facility] y [employer] Work Phone: E/E' Ratio Septal 12 [employer] Work Phone: Ejection Fraction (A2C) 54 % T [facility] [employer] Work Phone: Ejection Fraction (A4C) 66 % T [facility] [employer] Work Phone: Ejection Fraction (BP) 57 % Tr [facility] [employer] Work Phone: Est. RA Pressure 3 mmHg [employer] Work Phone: FS 43 % [facility] [employer] Phone: Interpretation and review of laboratory results Abnormal [facility] Work Phone: IVSD 1.0 cm 0.6 - 1.0 cm [facility] [employer] Work Phone: LA Area Sys (A2C) 17 cm2 [facility] Work Phone: LA Area Sys (A4C) 27 cm2 [facility] Work Phone: LA Volume (BP) 56 mL [facility] Work Phone: LA Volume Index (BP) 21 mL/m2 [facility] Work Phone: Left Atrium Major [place] 7.4 cm [facility] Work Phone: Left Atrium Minor [place] 6.6 cm [facility] [employer] Work Phone: LV Diastolic Volume (BP) 167 mL Abnormal 62 - 150 mL [facility] [employer] Work Phone: LV Diastolic Volume Index (BP) 61 mL/m2 [employer] Work Phone: LV EDV (A2C) 171 mL [facility] Work Phone: LV EDV (A4C) 160 mL [facility] Work Phone: LV EDV Index (A2C) 63 mL/m2 [facility] Work Phone: LV EDV Index (A4C) 59 mL/m2 [facility] y [facility] Work Phone: LV ESV (A2C) 79 mL [facility] Work Phone: LV ESV (A4C) 55 mL [facility] Work Phone: LV ESV Index (A2C) 29 mL/m2 [facility] Work Phone: LV ESV Index (A4C) 20 mL/m2 [facility] Work Phone: LV Mass 2D 218 g [employer] Work Phone: LV Mass Index 2D 80 g/m2 [employer] Work Phone: LV Systolic Volume (BP) 72 mL Abnormal 21 - 61 mL T [facility] [employer] Work Phone: LV Systolic Volume Index (BP) 26 mL/m2 [employer] Work Phone: LVIDD 5.8 cm 4.2 - 5.8 cm [facility] [employer] Work Phone: LVIDD Index 2.12 cm/m2 [facility] Work Phone: LVIDS 3.3 cm 2.5 - 4.0 cm [facility] [employer] Work Phone: LVIDS Index 1.21 cm/m2 [facility] Work Phone: LVOT Mean Grad 6 mmHg [facility] Work Phone: LVOT Mean [place] 1.2 m/s [facility] Work Phone: LVOT Peak Gradient 10 mmHg [facility] Work Phone: LVOT Peak [place] 1.6 m/s [facility] Work Phone: LVOT Peak VTI 33.2 cm [facility] Work Phone: LVOT:AV VTI Index 1.02 [facility] [employer] Work Phone: LVPWD 0.9 cm 0.6 - 1.0 cm [facility] Work Phone: Microscopic observation Hans (Ear) [Interp] 1.0 [facility] Work Phone: MV E' Tissue Velocity Lateral 14 cm/s [facility] [employer] Work Phone: MV E' Tissue Velocity Septal 11 cm/s [facility] [employer] Work Phone: MV Peak A [place] 1.31 m/s [facility] Work Phone: MV Peak E [place] 1.33 m/s [facility] Work Phone: Relative Wall Thickness ratio 0.31 [employer] Work Phone: RV Diastolic Basal Dimension 3.4 cm 2.5 - 4.1 cm [facility] [employer] Work Phone: RV Diastolic Length 8.9 cm Abnormal 5.9 - 8. 3 cm [employer] Phone: RV Diastolic Mid Dimension 3.0 cm 1 .9 - 3.5 cm [employer] Phone: [employer] Phone: Transthoracic echocardiogram (TTE) complete with PRN contrast, bubble, strain, and 3D order panelon 04-14-2022 Right ventricle cavity is normal. Right ventricular systolic function is normal. Left Ventricle: Left ventricle cavity size is normal. Wall thickness is normal. Systolic function is normal with an ejection fraction of 55-60%. There are no regional LV wall motion abnormalities. Right Ventricle: Right ventricle cavity appears normal. Systolic function is normal. No significant valvular abnormalities. Left Ventricle Left ventricle cavity size is normal. Wall thickness is normal. Systolic function is normal with an ejection fraction of 55-60%. There are no regional LV wall motion abnormalities. There is no diastolic dysfunction. Right Ventricle Right ventricle cavity appears normal. Systolic function is normal. Left Atrium Left atrium cavity size is normal. Right Atrium Right atrium cavity is normal. IVC/SVC Inferior vena cava was not well visualized. Mitral Valve Mitral valve structure is normal. There is no significant mitral valve regurgitation. There is no significant stenosis noted. Tricuspid Valve Tricuspid valve structure is normal. There is no significant regurgitation. There is no significant tricuspid valve stenosis. Aortic Valve The aortic valve is trileaflet. The leaflets are not thickened and exhibit normal excursion. There is no regurgitation or stenosis. Pulmonic Valve The pulmonic valve was not well visualized. No significant pulmonic valve regurgitation. No significant pulmonary valve stenosis noted. Ascending Aorta The aorta appears normal in size. Pericardium Pericardium appears normal. There is no pericardial effusion. Study Details Overall the study quality was adequate. The underlying ECG rhythm was sinus rhythm. Definity contrast was given to enhance imaging. Study was difficult due to: poor endocardial visualization. CV PACS Basic metabolic 1999 panelon 04-13-2022 Anion gap [Moles/Vol] 11 mmol/L [facility] [employer] Calcium [Mass/Vol] 9.1 mg/dL 8.9 - 10. 3 mg/dL [facility] Chloride [Moles/Vol] 99 mmol/L 98 - 10 7 mmol/L [facility] CO2 [Moles/Vol] 23 mmol/L 22 - 32 mmol/L [facility] Creatinine [Mass/Vol] 0.68 mg/dL 0.60 - 1.30 mg/dL [facility] GFR/1.73 sq M.predicted MDRD (S/P/Bld) [Vol rate/Area] 117 mL/min/{1.73_m2} mL/min/1.7 3m2 [facility] Glucose [Mass/Vol] 94 mg/dL 70 - 99 mg/dL [facility] Interpretation and review of laboratory results Abnormal [facility] Potassium [Moles/Vol] 4.1 mmol/L 3.6 - 5.1 mmol/L [facility] Sodium [Moles/Vol] 133 mmol/L Low 136 - 145 mmol/L [facility] Urea nitrogen [Mass/Vol] 9 mg/dL 8 - 20 mg/dL [facility] Urea nitrogen/Creatinine [Mass ratio] 13.2 mg/mg [facility] CT Angio Chest wo and/or w C [facility] 04-13-2022 Initial injection was suboptimal and nondiagnostic. 2nd injection was somewhat improved quality with no central pulmonary embolism although the peripheral arteries are poorly opacified. Normal heart size. Cirrhosis, splenomegaly, variceal vessels in upper abdomen. Clear lung quiñones. -------- FINAL REPORT -------- Dictated By: Tanmay Vicente Dictated Date: 04/13/2022 17:31 Assigned Physician: Tanmay Vicente Reviewed and Electronically Signed By: Tanmay Vicente Signed Date: 04/13/2022 17:34 Workstation ID: [id number] Transcribed By: Self Edit Transcribed Date: 04/13/2022 17:31 POWERSCRIBE EXAMINATION TYPE: CT ANGIO CHEST WO AND/OR W CONTRAST with 3-D reconstructions performed at a separate workstation DATE OF EXAM ORDERED: 04/13/2022 4:58 PM HISTORY: Dyspnea. Panic attack. Repeat injection. COMPARISON: NONE FINDINGS: Initial injection was suboptimal and nondiagnostic. 2nd injection was somewhat improved quality with no central pulmonary embolism although the peripheral arteries are poorly opacified. Normal heart size. Nodular liver contour. Splenomegaly. Variceal vessels in the upper abdomen. Negative for axillary adenopathy. Negative for infiltrate or effusion or pneumothorax. Negative for acute rib fracture. Degenerative changes of the thoracic spine are noted. Negative for lytic or blastic lesion. Negative for aortic dissection. Motion artifact at the aortic root. POWERSCRIBE Tanmay Vicente MD - 04/13/2022 EXAMINATION TYPE: CT ANGIO CHEST WO AND/OR W CONTRAST with 3-D reconstructions performed at a separate workstation DATE OF EXAM ORDERED: 04/13/2022 4:58 PM HISTORY: Dyspnea. Panic attack. Repeat injection. COMPARISON: NONE FINDINGS: Initial injection was suboptimal and nondiagnostic. 2nd injection was somewhat improved quality with no central pulmonary embolism although the peripheral arteries are poorly opacified. Normal heart size. Nodular liver contour. Splenomegaly. Variceal vessels in the upper abdomen. Negative for axillary adenopathy. Negative for infiltrate or effusion or pneumothorax. Negative for acute rib fracture. Degenerative changes of the thoracic spine are noted. Negative for lytic or blastic lesion. Negative for aortic dissection. Motion artifact at the aortic root. IMPRESSION: Initial injection was suboptimal and nondiagnostic. 2nd injection was somewhat improved quality with no central pulmonary embolism although the peripheral arteries are poorly opacified. Normal heart size. Cirrhosis, splenomegaly, variceal vessels in upper abdomen. Clear lung quiñones. -------- FINAL REPORT -------- Dictated By: Tanmay Vicente Dictated Date: 04/13/2022 17:31 Assigned Physician: Tanmay Vicente Reviewed and Electronically Signed By: Tanmay Vicente Signed Date: 04/13/2022 17:34 Workstation ID: [id number] Transcribed By: Self Edit Transcribed Date: 04/13/2022 17:31 [facility] Fibrin D-dimer DDU (PPP) [Ma ss/Vol]on 04-13-2022 Fibrin D-dimer FEU (PPP) [Mass/Vol] 0.51 High <0.50 mcg/mL FEU [facility] Comment on above: Cutoff 0.49 mcg/ml F EU At this cutoff level, the negative predictive value for this test is 100% for deep vein thrombosis (DVT) in patients with a low or moderate pre-test probability and 99.7% for pulmonary embolism (PE) in patients with a low or moderate pre-test probability. Clinical correlation is essential. Interpretation and review of laboratory results Abnormal [facility] Hemogram and platelets WO di fferential panel (Bld)Ordered By: Silke Cronin on 04-13-2022 Basophils (Bld) [#/Vol] 0.00 10*3/uL [facility] Basophils/100 WBC (Bld) 0.8 % 0.0 - 2.0 % [facility] Eosinophils (Bld) [#/Vol] 0.20 10*3/uL [facility] Eosinophils/100 WBC (Bld) 4.1 % 0. 0 - 7.0 % [facility] Erythrocyte distribution width (RBC) [Ratio] 16.6 % High 11.0 - 14.8 % [facility] Hematocrit (Bld) [Volume fraction] 40.8 % 39.0 - 49.0 % [facility] Hemoglobin (Bld) [Mass/Vol] 13.6 g/dL 13.5 - 17.5 g/dL [facility] Interpretation and review of laboratory results Abnormal [facility] Lymphocytes (Bld) [#/Vol] 0.80 10*3/uL Low [facility] Lymphocytes/100 WBC (Bld) 17.5 % Low 22 .0 - 44.0 % [facility] MCH (RBC) [Entitic mass] 30.1 pg [facility] MCHC (RBC) [Mass/Vol] 33.3 g/dL 32.0 - 36.0 g/dL [facility] MCV (RBC) [Entitic vol] 90.4 fL [facility] Monocytes (Bld) [#/Vol] 0.50 10*3/uL [facility] Monocytes/100 WBC (Bld) 12.3 % 4.0 - 23.0 % [facility] Neutrophils (Bld) [#/Vol] 2.90 10*3/uL [facility] Neutrophils/100 WBC (Bld) 65.3 % 40 .0 - 70.0 % [facility] Platelet mean volume (Bld) [Entitic vol] 8.6 fL [facility] Platelets (Bld) [#/Vol] 71 10*3/uL Low [facility] Comment on above: Results confirmed by slide review. RBC (Bld) [#/Vol] 4.51 10*6/uL [facility] WBC (Bld) [#/Vol] 4.5 10*3/uL Low [facility] Magnesiumon 04-13-2022 Magnesium [Mass/Vol] 1.8 mg/dL 1.8 - 2 .5 mg/dL [facility] Magnesium [Mass/Vol]on 04-13 Interpretation and review of laboratory results Normal [facility] No Panel Informationon 04-13 [facility] SARS-CoV-2 (COVID-19) RNA NA A+probe Ql (Resp)on 04-13-2022 Interpretation and review of laboratory results Normal [facility] SARS-CoV-2 (COVID-19) RdRp gene CHARLIE+probe Ql (Resp) Not detected Not Detected [facility] Tropinin I.cardiac panel Hig h sensitivity methodon 04-13-2022 Interpretation and review of laboratory results Abnormal [facility] Troponin I.cardiac High sensitivity method [Mass/Vol] 22 ng/L High <20 [facility] Interpretation and review of laboratory results Abnormal [facility] Troponin I.cardiac High sensitivity method [Mass/Vol] 21 ng/L High <20 [facility] Interpretation and review of laboratory results Normal [facility] Troponin I.cardiac High sensitivity method [Mass/Vol] 16 ng/L <20 [facility] XR Chest 2 Viewson Nonacute study. -------- FINAL REPORT -------- Dictated By: Tanmay Vicente Dictated Date: 04/13/2022 15:12 Assigned Physician: Tanmay Vicente Reviewed and Electronically Signed By: Tanmay Vicente Signed Date: 04/13/2022 15:12 Workstation ID: [id number] Transcribed By: Self Edit Transcribed Date: 04/13/2022 15:12 POWERSCRIBE EXAMINATION TYPE: XR CHEST 2 VIEWS DATE OF EXAM: 04/13/2022 3:04 PM COMPARISON: 11/08/2019 HISTORY: dyspnea FINDINGS: Lungs are clear. Negative for pneumothorax. Cardiomediastinal silhouette is within normal limits. POWERSCRIBE Tanmay Vicente MD - 04/13/2022 EXAMINATION TYPE: XR CHEST 2 VIEWS DATE OF EXAM: 04/13/2022 3:04 PM COMPARISON: 11/08/2019 HISTORY: dyspnea FINDINGS: Lungs are clear. Negative for pneumothorax. Cardiomediastinal silhouette is within normal limits. IMPRESSION: Nonacute study. -------- FINAL REPORT -------- Dictated By: Tanmay Vicente Dictated Date: 04/13/2022 15:12 Assigned Physician: Tanmay Vicente Reviewed and Electronically Signed By: Tanmay Vicente Signed Date: 04/13/2022 15:12 Workstation ID: [id number] Transcribed By: Self Edit Transcribed Date: 04/13/2022 15:12 [facility] Rad[facility] Study observation (narrative) [facility] XR Chest 2 ViewsOrdered By: Tanmay Vicente on 04-13-2022 [facility] Work Phone: XR Abdomen Single viewon No visible urinary calculi by plain film assessment. -------- FINAL REPORT -------- Dictated By: Jean Carlos Monroy Dictated Date: 03/25/2022 12:41 Assigned Physician: Jean Carlos Monroy Reviewed and Electronically Signed By: Jean Carlos Monroy Signed Date: 03/25/2022 12:43 Workstation ID: [id number] Transcribed By: Self Edit Transcribed Date: 03/25/2022 12:41 POWERSCRIBE EXAMINATION TYPE: XR ABDOMEN 1 VIEW DATE OF EXAM: 03/25/2022 10:31 AM HISTORY: kidney stone. COMPARISON PLAIN FILM: NONE FINDINGS: No urinary calculi identified. Normal bowel gas pattern. Intact osseous structures. A few left pelvic phleboliths are noted. POWERSCRIBE Jean Carlos Monroy MD - 03/25/2022 EXAMINATION TYPE: XR ABDOMEN 1 VIEW DATE OF EXAM: 03/25/2022 10:31 AM HISTORY: kidney stone. COMPARISON PLAIN FILM: NONE FINDINGS: No urinary calculi identified. Normal bowel gas pattern. Intact osseous structures. A few left pelvic phleboliths are noted. IMPRESSION: No visible urinary calculi by plain film assessment. -------- FINAL REPORT -------- Dictated By: Jean Carlos Monroy Dictated Date: 03/25/2022 12:41 Assigned Physician: Jean Carlos Monroy Reviewed and Electronically Signed By: Jean Carlos Monroy Signed Date: 03/25/2022 12:43 Workstation ID: [id number] Transcribed By: Self Edit Transcribed Date: 03/25/2022 12:41 [facility] Radiology Study observation (narrative) [facility] XR Abdomen Single viewOrdere d By: Jean Carlos Monroy on 03-25-2022 [facility] Work Phone: XR ABDOMEN /KUB/FLAT PLATE/1 VIEWon 03-13-2022 XR ABDOMEN /KUB/FLAT PLATE/1 VIEW EXAMINATION: XR ABDOMEN /KUB/FLAT PLATE/1 VIEW 03/13/2022 6:57 pm HISTORY: ORDERING SYSTEM PROVIDED HISTORY: left flank pain. 2mm stone in kidney on CT earlier this week, TECHNOLOGIST PROVIDED HISTORY: Illness/Other Reason for exam: left flank pain. 2mm stone in kidney on CT earlier this week Cancer History: Surgery, RadiationHistory: Encounter Type: Initial Additional signs and symptoms: left flank pain. 2mm stone in kidney on CT earlier this week ORDERING SYSTEM PROVIDED DIAGNOSIS CODES: COMPARISON: None FINDINGS: The bowel gas pattern is nonobstructive. No free air pneumatosis identified. There is a punctate calcification overlying the right hemiabdomen, potentially at the right UPJ. No other definite calcification identified. Moderate colonic stool burden. No acute osseous abnormality. IMPRESSION: Right probable ureteral calculus, potentially at the right UPJ. Workstation ID: [id number] Dictated by: PAUL GARNDER on Sat Mar 13, 2022 7:24:20 PM EDT Transcribed by: PAUL GARDNER on Sat Mar 13, 2022 7:24:20 PM EDT Finalized by: PAUL GARDNER on Sat Mar 13, 2022 7:24:20 PM EDT [facility] Comment on above: Order Comment: Injur y/Trauma or Illness?:Illness/Other How long have you had these symptoms (acute/chronic)?:Acute Reason for exam?:left flank pain. 2mm stone in kidney on CT earlier this week History of cancer?: Surgeries, chemotherapy, or radiation?: Type of Exam?:Initial Additional signs and symptoms?:left flank pain. 2mm stone in kidney on CT earlier this week ABORH VERIFICATIONOrdered By : Sukhwinder Villalobos on 04-22-2021 ABO and Rh group Nom (Bld) Blood group B Rh(D) positive [facility] ABO and Rh group Nom (Bld) ABO/Rh Verification [facility] Comment on above: Patient's ABO/Rh is verified. [facility] APTTOrdered By: Sukhwinder Villalobos on 04-22-2021 aPTT Coag (Bld) [Time] 33 s [facility] Basic metabolic 2000 panelOr dered By: Sukhwinder Villalobos on 04-22-2021 Anion gap [Moles/Vol] 16 mmol/L 10 - 2 0 mmol/L [facility] Calcium [Mass/Vol] 8.9 mg/dL 8.4 - 10. 2 mg/dL [facility] Chloride [Moles/Vol] 102 mmol/L 98 - 10 8 mmol/L [facility] Creatinine [Mass/Vol] 0.52 mg/dL 0.50 - 1.30 [facility] GFR/1.73 sq M.predicted CKD-EPI (S/P/Bld) [Vol rate/Area] 132 >=60 mL/min/1.7 3 m2 [facility] Glucose [Mass/Vol] 106 mg/dL High 65 - 99 mg/dL [facility] HCO3 [Moles/Vol] 24 mmol/L 21 - 32 mmol/L [facility] Interpretation and review of laboratory results Abnormal [facility] Potassium [Moles/Vol] 4.2 mmol/L 3.5 - 5.1 mmol/L [facility] Sodium [Moles/Vol] 138 mmol/L 135 - 145 mmol/L [facility] Urea nitrogen [Mass/Vol] 8 mg/dL 8 - 25 mg/dL [facility] Urea nitrogen/Creatinine [Mass ratio] 15.4 mg/mg [facility] The eGFR should be used for monitoring renal function only and not for medication dosing. [facility] Blood type and Indirect anti body screen panel (Bld)Ordered By: Sukhwinder Villalobos on 04-22-2021 ABO and Rh group Nom (Bld) Blood group B Rh(D) positive [facility] Blood group antibody screen Ql Negative [facility] Specimen Expires 04/25/2021 23:59 EST [facility] CBC WITH AUTO DIFFERENTIALOr dered By: Sukhwinder Villalobos on 04-22-2021 Basophils (Bld) [#/Vol] 0.08 10*3/uL [facility] [facility] Basophils/100 WBC (Bld) 1.8 % [facility] Eosinophils (Bld) [#/Vol] 0.29 10*3/uL [facility] Eosinophils/100 WBC (Bld) 6.4 % [facility] Erythrocyte distribution width (RBC) [Entitic vol] 15.5 % High 11.6 - 14.8 % [facility] Hematocrit (Bld) [Volume fraction] 43.8 % 41.0 - 53.0 % [facility] Hemoglobin (Bld) [Mass/Vol] 14.2 g/dL 13.5 - 17.5 g/dL [facility] Immature granulocytes (Bld) [#/Vol] 0.02 10*3/uL [facility] Immature granulocytes/100 WBC (Bld) 0.40 % [facility] Comment on above: The IG parameter is the percentage of metamyelocytes, myelocytes and promyelocytes. An immature granulocyte count (IG) of 1% or more suggests the possibility of infection, an IG count of 3% is very likely related to an infection. Interpretation and review of laboratory results Abnormal [facility] Lymphocytes (Bld) [#/Vol] 1.19 10*3/uL [facility] Lymphocytes/100 WBC (Bld) 26.2 % [facility] MCH (RBC) [Entitic mass] 30.1 pg 26. 0 - 34.0 pg [facility] MCHC (RBC) [Mass/Vol] 32.4 g/dL 31.0 - 37.0 g/dL [facility] MCV (RBC) [Entitic vol] 93.0 fL 80.0 - 100.0 fL [facility] Monocytes (Bld) [#/Vol] 0.76 10*3/uL [facility] Monocytes/100 WBC (Bld) 16.7 % [facility] Neutrophils (Bld) [#/Vol] 2.20 10*3/uL [facility] Neutrophils/100 WBC (Bld) 48.5 % [facility] Nucleated RBC (Bld) [#/Vol] 0.00 10*3/uL [facility] Nucleated RBC/100 WBC (Bld) [Ratio] 0.0 % [facility] Platelet mean volume (Bld) [Entitic vol] 10.6 fL 9.4 - 12.4 fL [facility] Platelets (Bld) [#/Vol] 78 10*3/uL [facility] Comment on above: Results checked RBC (Bld) [#/Vol] 4.71 10*6/uL [facility] WBC (Bld) [#/Vol] 4.54 10*3/uL [facility] Glucose (Bld) [Mass/Vol]Orde red By: Sukhwinder Villalobos on 04-22-2021 Glucose [Mass/Vol] 102 mg/dL High 65 - 99 mg/dL [facility] Interpretation and review of laboratory results Abnormal [facility] Glucose [Mass/Vol] 100 mg/dL High 65 - 99 mg/dL [facility] Interpretation and review of laboratory results Abnormal [facility] INR Coag (PPP) [Relative abdulkadir e]Ordered By: Sukhwinder Villalobos on 04-22-2021 Interpretation and review of laboratory results Abnormal [facility] PT Coag (PPP) [Time] 15.2 s [facility] During the induction phase of oral anticoagulation, the INR may not reflect the anticoagulation status of the patient. Therapeutic ranges for INR's are: Most clinical situations: INR 2.0-3.0 Mechanical Prosthetic Valve: INR 2.5-3.5 Critical: INR >5.0 [facility] No Panel InformationOrdered By: Sukhwinder Villalobos on 04-22-2021 [facility] PT/INROrdered By: Sukhwinder berg on 04-22-2021 INR Coag (PPP) [Relative time] 1.2 {INR} High [facility] SCAN OTHER ORDERSOrdered By: Provider System on 04-22-2021 Ordered by an unspecified provider. [facility] aPTT Coag (Bld) [Time]Ordere d By: Sukhwinder Villalobos on 04-22-2021 Interpretation and review of laboratory results Normal [facility] Therapeutic range for APTT's is 68 - 104 seconds [facility] US ABDOMEN LIMITED STUDYon 0 03-20-2021 US ABDOMEN LIMITED STUDY EXAMINATION: RIGHT UPPER QUADRANT ULTRASOUND 03/20/2021 7:31 am COMPARISON: None. HISTORY: ORDERING SYSTEM PROVIDED HISTORY: ruq abd pain; TECHNOLOGIST PROVIDED HISTORY: Illness/Other Acuity: Chronic Reason for Exam: Abdominal bloating Cancer History: Surgery, Radiation History: Type of Encounter: Initial Additional signs and symptoms: History of fatty liver disease with possible cirrhosis per patient ORDERING SYSTEM PROVIDED DIAGNOSIS CODES: R10.11 Right upper quadrant abdominal pain FINDINGS: LIVER: Liver is heterogeneous in echotexture with normal echogenicity. No focal hepatic lesions identified. There are subtle areas of lobulation of the liver contour. BILIARY SYSTEM: Gallbladder is unremarkable without evidence of pericholecystic fluid, wall thickening or stones. Negative sonographic Moyer's sign. Common bile duct is within normal limits measuring 5-6 mm. RIGHT KIDNEY: The right kidney is grossly unremarkable without evidence of hydronephrosis. PANCREAS: Visualized portions of the pancreas are unremarkable. OTHER: No evidence of right upper quadrant ascites. IMPRESSION: Heterogeneous echotexture of the liver with normal echogenicity. Subtle areas of lobulation of liver contour. Findings raise suspicion for possible cirrhosis. [facility] Workstation ID: [id number] Dictated by: MAURO ZEE on TueMarch 20, 2021 8:18:33 AM EDT Transcribed by: ROMY MOE on TueMarch 20, 2021 8:19:53 AM EDT Finalized by: MAURO ZEE on TueMarch 22, 2021 10:22:08 PM EDT Normal [facility] Comment on above: Order Comment: Injur y/Trauma or Illness?:Illness/Other How long have you had these symptoms (acute/chronic)?:Chronic Reason for exam?:Abdominal bloating History of cancer?: Surgeries, chemotherapy, or radiation?: Type of Exam?:Initial Additional signs and symptoms?:History of fatty liver disease with possible cirrhosis per patient Alpha Fetoprotein Tumor Elieser rian 12-24-2020 AFP.tumor marker [Mass/Vol] 2.4 ng/mL Normal 0.0-9.0 [facility] Comment on above: Result Comment: REFE RENCE RANGE: 0-9.0 NG/ML When used as a tumor marker, increased AFP levels have been observed in patients with germ cell tumors, hepatocelluar carcinoma and other epithelial tumors. In addition to , AFP can also be increased in patients with benign liver disease. In these patients AFP values are typically less than 200 NG/ML. The specificity of AFP tumors is greater at levels higher than 200 NG/ML. However, smaller tumors will not be detected at this level. Therefore, levels between 9 and 200 NG/ML should be evaluated carefully. Results obtained using different immunoassay methods are not interchangeable. Patient results should not be trended using values obtained with a different immunoassay method. Performed By: #### 5 3962-7 #### [facility] [address] [place] [address] US Abdomen Ltdon 10-14-2020 US Abdomen limited EXAMINATION TYPE: US Abdomen Ltd DATE OF EXAM ORDERED: 10/14/2020 10:10 AM HISTORY: 40-year-old male with UNSPECIFIED CIRRHOSIS OF LIVER. COMPARISON: Prior right upper quadrant abdominal ultrasound of 06/28/2018, CT abdomen pelvis without IV contrast of 11/08/2019 TECHNIQUE: Sonography of the right upper quadrant of the abdomen was performed. FINDINGS: Pancreas: Near completely obscured. Liver: Coarsening of hepatic echotexture and nodularity of the hepatic contour reflects cirrhosis. Gallbladder: No gallstones are identified. The gallbladder is sonographically unremarkable. The patient is reportedly negative on sonographic Moyer's interrogation. Bile ducts: No significant biliary duct dilatation is identified. The extrahepatic bile duct measures 3-4 mm diameter at the pedro hepatis. Right kidney: No significant collecting system dilatation identified. IMPRESSION: 1. Cirrhotic hepatic morphology. 2. Nonvisualization of the pancreas. [place] thanks you for the opportunity to care for your patient. Workstation ID: [id number] - [id number] FINAL REPORT Dictated By: Rudi Joshi MD 10/14/2020 11:22 Assigned Physician: Rudi Joshi MD Reviewed and Electronically Signed By: Rudi Joshi MD 10/14/2020 11:24 Transcribed by: [facility] 10/14/2020 11:22 Normal [facility] Glucose POCT (Uploaded)on Glucose [Mass/Vol] 87 mg/dL Normal 70-99 [facility] Comment on above: Result Comment: Samantha tment ranges and critical values established by Patient Care Services. All follow-up actions were taken by Patient Care Services. Performed By: #### 2 430-8 #### [facility]INT [facility] C[facility] OR Nursingon 06-26-2020 OR Nursing [facility] OR Nursing Record Summary Primary Physician: Dandy Healy MD Finalized Date/Time: 06/26/20 14:21:15 Pt. Name: LEON RIDER /Sex: 1980 Male Med Rec #: [id number] Physician: Financial #: [id number] Pt. 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 Commercial Director Time In 06/26/20 13:58:00 Time Out 06/26/20 14:13:00 Procedure Egd with Biopsy_(N/A) Attendee Comment Relief Reason Last Modified By: Lani Villareal RN 06/26/20 14:20:23 [facility] General Case Elevator Inspector 1 OR CO E EN 04 ASA Class 3 Case Wound Class None Specialty Endoscopy Service Case Level N/A Diagnosis Preop Diagnosis ESOPHAGEAL VARICES Postop Same As Preop No I85.00 CIRRHOSIS K74.60 Postop Diagnosis erosive esophagitis/ small hiatal hernia/ PHG/ DUODENAL ULCERS/ This is a down time No record. Last Modified By: Lani Villareal RN 06/26/20 14:13:22 [facility] Surgical Procedures Entry 1 Procedure Egd with Biopsy_ Primary Procedure Yes Modifiers N/A Procedure Wound None Class Primary Surgeon Dandy Healy MD Surgical Service Endoscopy Service Anesthesia Type MAC Procedure Performed EGD Start 06/26/20 14:03:00 Stop 06/26/20 14:09:00 Last Modified By: Lani Villareal RN 06/26/20 14:21:10 [facility] Fire Risk Assessment Entry 1 Alcohol Based Prep No Solution Dry Time >3 Minutes or According to Manufactures Instructions. No Pooling Observed. (No Alcohol Prep used Select N/A) Fire Risk Factors Yes = 1, No or N/A = 0 Procedure Yes Open O2 Source Yes Site/Incision Above (Face Mask/Nasal Xyphoid Process Cannula) Ignition source Yes Fire Risk Total 3 (Cautery, Laser, Score Fiberoptic Light Source) Last Modified By: Lani Villareal RN 06/26/20 14:00:11 Post-Care Text: Standard Fire Safety precautions - Score 1 or 2 Prep drying time - minimum three minutes Protected heat source (i.e bovie kendrick) Standard draping procedure HIGH RISK FIRE PRACTICES - SCORE 3 *RN verbalizes to the team the presence of high-risk score and verifies the fire triangle *Write High Risk on the white board *Verbally confirm lowest effective setting on the heat source *Minimize 02 entrapment by proper draping of the patient *Encourage use of wet sponges *Available basin with sterile water and bulb syringe for suppression *Anesthesia Awareness and communication of oxygen flows/concentration *Allow for dispersion of 02 at least 1 minute before and during electrosurgical and laser use and communicate to surgeon *Use lowest tolerable concentration of 02 (less than 30% when able) [facility] Interventional Checklist Entry 1 TIme Out Verified 06/26/20 13:59:00 Procedure Egd with Biopsy_(N/A) At: Pre-Procedure/Pre-In Patient confirms Suspend All Introduction of team duction Additional identity, site, Activities (Before and/or new members, Verification procedure and consent, Incision/Start of Entire Procedure team (Before Induction/ Anesthesia safety check Procedure) verbally confirm Administration of complete, Pulse patient, site, Sedation) oximeter on, Confirm procedure, patient allergies, Proceduralist reviews: Patient aspiration risk what are the critical was assessed and or unexpected steps, equipment/assistance operative duration and available if necessary anticipated blood loss?, Anesthesia reviews: patient-specific concerns, if applicable, Nursing team reviews: Any patient-specific concerns? Fire Risk Yes Assessment Completed Last Modified By: Lani Villareal RN 06/26/20 14:06:06 General Comments: physician awareof preprocedure assessment [facility] Pain Assessment Entry 1 Pain Score (0-10) 0 Last Modified By: Lani Villareal RN 06/26/20 14:00:51 [facility] Specimens Entry 1 Specimen Type Biopsy Specimen Description 1- ANTRAL BX Last Modified By: Lani Villareal RN 06/26/20 14:08:42 [facility] Patient Debriefing Entry 1 Verify name of Skin Assessment Unchanged from procedure(s) performed After Pre-Procedure including site/side, Review specimens and how each is labeled Abdomen Post Soft Procedure Last Modified By: Lani Villareal RN 06/26/20 14:20:37 Case Comments Finalized By: Lani Villareal RN Document Signatures Signed By: Lani Villareal RN 06/26/20 14:21 Normal [facility] Patient Summaryon 06-26-2020 Patient Summary PATIENT DISCHARGE INSTRUCTIONS If you are having an emergency and are not able to reach your physician, CALL 911 or go to the nearest emergency room and take this document with you. [facility] 06/26/20 14:28 [address] [place]. [address] PATIENT INFORMATION Name: LEON RIDER Address: [address] [place] [address] [place] [address] Age: 40 Years Phone: [phone] : 1980 12:00 MRN: [id number] Sex: Male Race: White Ethnicity: Not Hispan/Lat Admitted From: Clinic or [facility] Medical Service: Gastroenterology Nurse Unit/Bed: (GABINO) RASHMI N/A Admit Date: 06/26/2020 12:03 PCP: Zack Vigil MD PHYSICIANS INVOLVED WITH CARE -------- Attending Physicians: Dandy Healy MD - Gastroenterology Admitting Physician: None found Primary Care Physician:Msua CARPIO , Zack Randolph,,,Internal Medicine - Consults: None found YOU WERE TREATED IN THE HOSPITAL FOR: Cirrhosis ALLERGIES: No Known Allergies MEASUREMENTS: Last Charted: Weight: 163.5 kg /360 lbs 10 oz ( 06/25/20 11:04:00 ) MEDICATIONS For: ADRY LEON Jose This is your list of medication(s). Keep it with you at all times. Your doctor may have changed doses, add, held or stopped some of your medications. Please share this information with your family doctor. Carry this list of medications with you in case of an emergency. Update it when medications are stopped, doses are changed, or new medications (including avdy-bjo-efczyzn products) are added. Ask your doctor if you have any questions. THESE ARE THE MEDICATIONS YOU SHOULD BE TAKING ertugliflozin (Steglatro 15 mg oral tablet) By Mouth once a day. pt will bring dosage of med 06/25/2020. states he takes 5 mg,. famotidine (famotidine 40 mg oral tablet) 1 Tab(s) By Mouth Every Bedtime for 90 Days. HOLD / DO NOT TAKE FOR 3 CONTINUOUS DAYS EVERY MONTH TO AVOID TACHYPHYLAXIS. Refills: 3. MetFORMIN (metFORMIN 1000 mg oral tablet, extended release) 1 Tab(s) By Mouth Twice a day. multivitamin 1 Tab(s) By Mouth once a day. promethazine (promethazine 25 mg oral tablet) 1 Tab(s) By Mouth every 6 hours. as needed. SitaGLIPtin (Januvia 100 mg oral tablet) 1 Tab(s) By Mouth once a day. MEDICATION CHANGE DETAILS (Not your Final Home Medication List) During the course of your visit, your home medication list was updated with the most current information. The details of those changes are shown below: NEW MEDICATIONS None UPDATED MEDICATIONS None UNCHANGED MEDICATIONS Other Medications ertugliflozin (Steglatro 15 mg oral tablet) By Mouth once a day. pt will bring dosage of med 06/25/2020. states he takes 5 mg,. Comment famotidine (famotidine 40 mg oral tablet) 1 Tab(s) By Mouth Every Bedtime for 90 Days. HOLD / DO NOT TAKE FOR 3 CONTINUOUS DAYS EVERY MONTH TO AVOID TACHYPHYLAXIS. Refills: 3. Comment MetFORMIN (metFORMIN 1000 mg oral tablet, extended release) 1 Tab(s) By Mouth Twice a day. Comment multivitamin 1 Tab(s) By Mouth once a day. Comment promethazine (promethazine 25 mg oral tablet) 1 Tab(s) By Mouth every 6 hours. as needed. Comment SitaGLIPtin (Januvia 100 mg oral tablet) 1 Tab(s) By Mouth once a day. Comment STOP TAKING THESE MEDICATIONS None DO NOT TAKE UNTIL YOU TALK TO YOUR DOCTOR None NON-MEDICATION PRESCRIPTION SCHEDULING PHONE NUMBER: ADVANCE DIRECTIVE/HEALTH CARE DECISIONS: Advance Directive/Health Care Decisions Executed by Patient: : No Information Obtained From: Patient Advance Directive Health Care Information Offered: Patient declines SUICIDE HOTLINE: Your mental and emotional well-being are important. If you are in a mental health crisis, or having thoughts of suicide, please call the nationwide suicide hotline, anytime day or night, at 9-674-533-QUNL. Important information about accessing your health information through the [facility] patient portal If you initiated the self-registration process for [facility] during your stay, please check your personal email for an invitation to enroll in [facility] and complete the steps outlined in the email. If you would prefer to enroll while in the hospital, ask a member of your care team. We would be happy to assist you. If you have already enrolled in [facility], go to [email or web address] to login and access your health information. Thank you for choosing [facility]. PATIENT EDUCATION PATIENT DISCHARGE INSTRUCTION Signature Page for: LEON RIDER Date/Time: 06/26/2020 14:28:21 A Clinician has explained the information on my discharge instructions and has provided me with a copy. My questions have been answered to my satisfaction. Patient Signature _ Date/Time Responsible Party Date/Time Relationship to Patient Clinician Signature Date/Time Normal [facility] Post PACU Nursingon 06-26-20 20 Post PACU Nursing [facility] PACU Nursing Record Summary Primary Physician: Dandy Healy MD Finalized Date/Time: 06/26/20 15:04:08 Pt. Name: LEON RIDER J /Sex: 1980 Male Med Rec #: [id number] Physician: Financial #: [id number] Pt. Type: I Room/Bed: / Admit/Disch: 06/26/20 12:03:00 - Institution: [facility] PACU II Case Times Entry 1 In PACU II 06/26/20 14:17:00 Ready for PACU II 06/26/20 14:58:00 Discharge Discharge from PACU 06/26/20 14:58:00 II Last Modified By: Lani Villareal RN 06/26/20 15:03:49 [facility] PACU II Case Attendees Entry 1 Case Attendee Lani Villareal RN Role Performed RN Last Modified By: Lani Villareal RN 06/26/20 15:03:39 Finalized By: Lani Villareal RN Document Signatures Signed By: Lani Villareal RN 06/26/20 15:03 Lani Villareal RN 06/26/20 15:04 Normal [facility] PreOp Nursingon 06-26-2020 PreOp Nursing [facility] PreOp Nursing Record Summary Primary Physician: Dandy Healy MD Finalized Date/Time: 06/26/20 15:07:13 Pt. Name: ADRYLEON/Sex: 1980 Male Med Rec #: [id number] Physician: Financial #: [id number] Pt. Type: I Room/Bed: / Admit/Disch: 06/26/20 12:03:00 - Institution: [facility] PreOp Case Times Entry 1 PreOp Case Times In Room Time 06/26/20 12:42:00 Out Room Time 06/26/20 13:57:00 Last Modified By: Angelic Enrique RN 06/26/20 15:07:11 [facility] PreOp Case Attendees Entry 1 Case Attendee Angelic Enrique RN Role Performed RN Last Modified By: Angelic Enrique RN 06/26/20 13:11:50 Finalized By: Angelic Enrique RN Document Signatures Signed By: Angelic Enrique RN 06/26/20 15:07 Normal [facility] Surgical Pathology Final Rep the medical center 06-26-2020 Pathology study LEON RIDER [id number] YRS M [id number] RM/BD ORDERING PHYSICIAN: DANDY HEALY 577 RESULT TRANSMITTED: 06/27/20 1523 S U R G I C A L P A T H O L O G Y R E P O R T CLINICAL INFORMATION: PREOP DIAGNOSIS: Cirrhosis/esophageal varices. POSTOP DIAGNOSIS: Duodenal ulcer/esophagitis. PROCEDURE: EGD. TISSUE REMOVED: Antral biopsy, rule out H. pylori. GROSS DESCRIPTION: Antral biopsy. Received in formalin, labeled with patient identification, are 5 fragments of vidal soft tissue that range from 0.3 to 0.5 cm and are submitted in toto in 1 cassette. (ES/1C/MS/RT-BAG) Gross examination was performed at [facility]. AJB:[facility] 06/26/20 By: GERRY REYNA M.D. AT [facility] (Electronic Signature) MICROSCOPIC: The technical component was performed at [facility], [address] [place] [address]. Microscopic examination was performed. Case resulted at [facility]. The immunohistochemical and/or in situ hybridization tests reported here have been developed and their performance characteristics determined by [facility] [address] [place] [address]. It has not been cleared or approved by the U.S. Food and Drug Administration. The FDA has determined that such clearance or approval is not necessary. This laboratory is certified under CLIA-88 as qualified to perform high complexity clinical laboratory testing. All control slides show appropriate activity. The immunohistochemical assay has not been validated on decalcified tissue. The results should be interpreted with caution as decalcification may result in false negative results. DIAGNOSIS: Stomach, antrum, biopsy: - MILD CHRONIC INACTIVE GASTRITIS. - NO HELICOBACTER PYLORI (CONFIRMED BY IMMUNOSTAIN). [id number] END OF REPORT END OF REPORT Normal [facility] Coronavirus (COVID-19/SARS-C oV-2) [facility] 06-23-2020 SARS-CoV-2 NOTDET Normal NOTDET [facility] Comment on above: Result Comment: This test was performed via the Aptima SARS-CoV-2 Assay (Voltea) and has been authorized by the FDA under an Emergency Use Authorization (EUA). The assay is validated for nasopharyngeal (NETWORK ADMINISTRATOR), nasal, and oropharyngeal (OP) swab specimens. The adobe developer's stated Limit of Detection is 0.01 TCID50/mL which is comparable to other nucleic acid amplification tests currently being used to test for SARS-CoV-2. Detection of SARS-CoV-2 may be affected by the sample collection, transport methods and patient factors (e.g., presence of symptoms, and/or stage of infection); therefore a negative result does not rule out the possibility of infection. For updated information, refer to the Center for Disease Control website: www.cdc.gov/coronavirus. Performed By: #### 9 [id number] #### [address] [address] Alpha Fetoprotein Tumor Elieser rian 06-18-2020 AFP.tumor marker [Mass/Vol] 3.2 ng/mL Normal 0.0-9.0 [facility] Comment on above: Result Comment: REFE RENCE RANGE: 0-9.0 NG/ML When used as a tumor marker, increased AFP levels have been observed in patients with germ cell tumors, hepatocelluar carcinoma and other epithelial tumors. In addition to , AFP can also be increased in patients with benign liver disease. In these patients AFP values are typically less than 200 NG/ML. The specificity of AFP tumors is greater at levels higher than 200 NG/ML. However, smaller tumors will not be detected at this level. Therefore, levels between 9 and 200 NG/ML should be evaluated carefully. Results obtained using different immunoassay methods are not interchangeable. Patient results should not be trended using values obtained with a different immunoassay method. Performed By: #### 5 3962-7 ####[facility] [address] [place] [address] CBC with Differentialon Basophils (Bld) [#/Vol] 0.00 thou/mcL Normal 0.00-0.20 [facility] Comment on above: Performed By: #### 5 7021-8 #### [facility] [address] [place] [address] Basophils/100 WBC (Bld) 0.5 % Normal 0.0-2.0 [facility] Comment on above: Performed By: #### 5 7021-8 #### [facility] [address] [place] [address] Eosinophils (Bld) [#/Vol] 0.30 thou/mcL Normal 0.00-0. 70 [facility] Comment on above: Performed By: #### 5 7021-8 #### [address] [address] Eosinophils/100 WBC (Bld) 5.5 % Normal 0.0-7.0 [facility] Comment on above: Performed By: #### 5 7021-8 #### [address] [address] Erythrocyte distribution width (RBC) [Entitic vol] 17.1 % High 11.0-14.8 [facility] Comment on above: Performed By: #### 5 7021-8 #### [address] [address] Hematocrit (Bld) [Volume fraction] 42.0 % Normal 39.0-49.0 [facility] Comment on above: Performed By: #### 5 7021-8 #### [address] [address] Hemoglobin (Bld) [Mass/Vol] 14.0 g/dL Normal 13.5-17.5 [facility] Comment on above: Performed By: #### 5 7021-8 #### [address] [address] Lymphocytes (Bld) [#/Vol] 1.10 thou/mcL Normal 1.00-4. 80 [facility] Comment on above: Performed By: #### 5 7021-8 #### [address] [address] Lymphocytes/100 WBC (Bld) 24.2 % Normal 22.0-44.0 [facility] Comment on above: Performed By: #### 5 7021-8 #### [address] [place] [address] MCH (RBC) [Entitic mass] 29.7 Picograms Normal 27.0-34 .0 [facility] Comment on above: Performed By: #### 5 7021-8 #### [facility] [address] [place] [address] MCHC (RBC) [Mass/Vol] 33.4 g/dL Normal 32.0-36.0 [facility] Comment on above: Performed By: #### 5 7021-8 #### [facility] [address] [place] [address] MCV (RBC) [Entitic vol] 88.8 fL Normal 80.0-97.0 [facility] Comment on above: Performed By: #### 5 7021-8 #### [facility] [address] [place] [address] Monocytes (Bld) [#/Vol] 0.90 thou/mcL Normal 0.00-0.90 [facility] Comment on above: Performed By: #### 5 7021-8 #### [facility] [address] [place] [address] Monocytes/100 WBC (Bld) 18.2 % High 0.0-12.0 [facility] Comment on above: Performed By: #### 5 7021-8 #### [facility] [address] [place] [address] Neutrophils (Bld) [#/Vol] 2.40 thou/mcL Normal 1.80-7. 70 [facility] Comment on above: Performed By: #### 5 7021-8 #### [facility] [address] [place] [address] Neutrophils/100 WBC (Bld) 51.6 % Normal 40.0-70.0 [facility] Comment on above: Performed By: #### 5 7021-8 #### [facility] [address] [place] [address] Platelet mean volume (Bld) [Entitic vol] 9.9 fL Normal 6.2-12.1 [facility] Comment on above: Performed By: #### 5 7021-8 #### [facility] [address] [place] [address] Platelets (Bld) [#/Vol] 76 thou/mcL Low 142-424 [facility] Comment on above: Result Comment: Resu lt confirmed by slide review. Performed By: #### 5 7021-8 #### [facility] [address] [place] [address] RBC (Bld) [#/Vol] 4.72 million/mcL Normal 4.30-5.70 [facility] Comment on above: Performed By: #### 5 7021-8 #### [facility] [address] [place] [address] WBC (Bld) [#/Vol] 4.7 thou/mcL Normal 4.6-10.2 [facility] Comment on above: Performed By: #### 5 7021-8 #### [facility] [address] [place] [address] Hepatic Function Panelon Albumin [Mass/Vol] 3.1 g/dL Low 3.5-4.8 [facility] Comment on above: Performed By: #### 2 4325-3 #### [facility] [address] [place] [address] ALP [Catalytic activity/Vol] 104 Units/L High 32-91 [facility] Comment on above: Performed By: #### 2 4325-3 #### [facility] [address] [place] [address] ALT [Catalytic activity/Vol] 35 Units/L Normal 14-63 [facility] Comment on above: Performed By: #### 2 4325-3 #### [facility] [address] [place] [address] AST [Catalytic activity/Vol] 42 Units/L High 15-41 [facility] Comment on above: Performed By: #### 2 4325-3 #### [facility] [address] [place] [address] Bilirubin [Mass/Vol] 1.2 mg/dL Normal 0.3-1.2 [facility] Comment on above: Performed By: #### 2 4325-3 #### [facility] [address] [place] [address] Bilirubin.direct [Mass/Vol] 0.3 mg/dL Normal 0.1-0.5 [facility] Comment on above: Performed By: #### 2 4325-3 #### [facility] [address] [place] [address] Bilirubin.indirect [Mass/Vol] 0.9 mg/dL Normal 0.0-1.0 [facility] Comment on above: Performed By: #### 2 4325-3 #### [facility] [address] [place] [address] Protein [Mass/Vol] 7.0 g/dL Normal 6.1-7.9 [facility] Comment on above: Performed By: #### 2 4325-3 #### [facility] [address] [place] [address] Vital Signs Date Time Vital Sign Value Performing Clinician Facility 01-28-2025 14:52-0400 Body height 180.34 cm Alis Mace MD Work Phone: [facility] 01-28-2025 14:52-0400 Body mass index (BMI) [Ratio] 50.3 kg/m2 Alis Mace MD Work Phone: [facility] 01-28-2025 14:52-0400 Body temperature 97.6 [degF] Alis Mace MD Work Phone: [facility] 01-28-2025 14:52-0400 Body weight 163.74 kg Alis Mace MD Work Phone: [facility] 01-28-2025 14:52-0400 Diastolic blood pressure 82 mm[Hg] Alis Mace MD Work Phone: [facility] 01-28-2025 14:52-0400 Heart rate 82 /min Alis Mace MD Work Phone: [facility] 01-28-2025 14:52-0400 Respiratory rate 18 /min Alis Mace MD Work Phone: [facility] 01-28-2025 14:52-0400 SaO2% (BldA) [Mass fraction] 97 % Alis Mace MD Work Phone: [facility] 01-28-2025 14:52-0400 Systolic blood pressure 140 mm[Hg] Alis Mace MD Work Phone: [facility] 04-23-2024 08:20-0400 Body height 179.07 cm Fiona Satkowiak PA-C [facility] 04-23-2024 08:20-0400 Body mass index (BMI) [Ratio] 48.07 kg/m2 Fiona Satkowiak PA-C [facility] 04-23-2024 08:20-0400 Body weight 154.13 kg Fiona Satkowiak PA-C [facility] 03-22-2024 09:33-0400 Body mass index (BMI) [Ratio] 51.6 kg/m2 Zack Vigil MD Work Phone: [facility] 03-22-2024 09:33-0400 Body weight 165.47 kg Zack Vigil MD Work Phone: [facility] 03-22-2024 09:33-0400 Diastolic blood pressure 80 mm[Hg] Zack Vigil MD Work Phone: [facility] 03-22-2024 09:33-0400 Heart rate 84 /min Zack Vigil MD Work Phone: [facility] 03-22-2024 09:33-0400 Systolic blood pressure 130 mm[Hg] Zack Vigil MD Work Phone: [facility] 09-25-2023 04:18-0500 Diastolic blood pressure 80 mm[Hg] Bernabe Dooley MD Work Phone: [facility] 09-25-2023 04:18-0500 Heart rate 82 /min Bernabe Dooley MD Work Phone: [employer] [facility] 09-25-2023 04:18-0500 Respiratory rate 16 /min Bernabe Dooley MD Work Phone: [facility] 09-25-2023 04:18-0500 SaO2% (BldA) [Mass fraction] 98 % Bernabe Dooley MD Work Phone: [facility] 09-25-2023 04:18-0500 Systolic blood pressure 145 mm[Hg] Bernabe Dooley MD Work Phone: [facility] 09-24-2023 18:17-0500 Body temperature 98.01 [degF] Bernabe Dooley MD Work Phone: [facility] 09-24-2023 18:11-0500 Body height 180.3 cm Bernabe Dooley MD Work Phone: [facility] 09-24-2023 18:11-0500 Body mass index (BMI) [Ratio] 51.6 kg/m2 Bernabe Dooley MD Work Phone: [employer] [facility] 09-24-2023 18:11-0500 Body weight 167.83 kg Bernabe Dooley MD Work Phone: [facility] 02-16-2023 09:50-0400 Diastolic blood pressure 66 mm[Hg] [address] 02-16-2023 09:50-0400 Heart rate 86 /min [address] 02-16-2023 09:50-0400 Respiratory rate 15 /min [address] 02-16-2023 09:50-0400 SaO2% (BldA) [Mass fraction] 97 % [address] 02-16-2023 09:50-0400 Systolic blood pressure 140 mm[Hg] [address] 02-16-2023 09:25-0400 Body temperature 98.6 [degF] [address] 02-16-2023 09:00-0400 Body height 180.[address] 02-16-2023 09:00-0400 Body mass index (BMI) [Ratio] 52.09 kg/m2 [address] 02-16-2023 09:00-0400 Body weight 169.[address] 12-23-2022 11:10-0500 Diastolic blood pressure 92 mm[Hg] [address] 12-23-2022 11:10-0500 Heart rate 76 /min [address] 12-23-2022 11:10-0500 Respiratory rate 15 /min [address] 12-23-2022 11:10-0500 SaO2% (BldA) [Mass fraction] 97 % [address] 12-23-2022 11:10-0500 Systolic blood pressure 156 mm[Hg] [address] 12-23-2022 10:41-0500 Body temperature 99.1 [degF] [address] 12-23-2022 09:15-0500 Body height 180.[address] 12-23-2022 09:15-0500 Body mass index (BMI) [Ratio] 53.44 kg/m2 [address] 12-23-2022 09:15-0500 Body weight 173.[address] 10-27-2022 18:15-0500 Diastolic blood pressure 87 mm[Hg] [address] 10-27-2022 18:15-0500 Heart rate 79 /min [address] 10-27-2022 18:15-0500 Respiratory rate 15 /min [address] 10-27-2022 18:15-0500 SaO2% (BldA) [Mass fraction] 100 % [address] 10-27-2022 18:15-0500 Systolic blood pressure 152 mm[Hg] [address] 10-27-2022 17:50-0500 Body temperature 97.5 [degF] [address] 10-26-2022 12:00-0500 Body height 180.[address] 10-26-2022 12:00-0500 Body mass index (BMI) [Ratio] 53 kg/m2 [address] 10-26-2022 12:00-0500 Body weight 172.37 kg McCe 03 [facility] 04-14-2022 15:29-0400 Body temperature 97.9 [degF] Tye Holbrook MD Work Phone: [facility] 04-14-2022 15:29-0400 Diastolic blood pressure 83 mm[Hg] Tye Holbrook MD Work Phone: [facility] 04-14-2022 15:29-0400 Heart rate 94 /min Tye Holbrook MD Work Phone: [facility] 04-14-2022 15:29-0400 SaO2% (BldA) [Mass fraction] 94 % Tye Holbrook MD Work Phone: [facility] 04-14-2022 15:29-0400 Systolic blood pressure 152 mm[Hg] Tye Holbrook MD Work Phone: [facility] 04-14-2022 14:07-0400 Body height 180.3 cm Tye Holbrook MD Work Phone: [facility] 04-14-2022 14:07-0400 Body mass index (BMI) [Ratio] 51.19 kg/m2 Tye Holbrook MD Work Phone: [facility] 04-14-2022 14:07-0400 Body weight 166.47 kg Tye Holbrook MD Work Phone: [facility] 04-14-2022 03:00-0400 Respiratory rate 18 /min Tye Holbrook MD Work Phone: [facility] 04-22-2021 08:50-0400 Body temperature 98.29 [degF] Sukhwinder Villalobos MD Work Phone: [facility] 04-22-2021 08:50-0400 Diastolic blood pressure 65 mm[Hg] Sukhwinder Villalobos MD Work Phone: [facility] 04-22-2021 08:50-0400 Heart rate 94 /min Sukhwinder Villalobos MD Work Phone: [facility] 04-22-2021 08:50-0400 Respiratory rate 13 /min Sukhwinder Villalobos MD Work Phone: [facility] 04-22-2021 08:50-0400 SaO2% (BldA) [Mass fraction] 92 % Sukhwinder Villalobos MD Work Phone: [facility] 04-22-2021 08:50-0400 Systolic blood pressure 117 mm[Hg] Sukhwinder Villalobos MD Work Phone: [facility] 04-22-2021 06:38-0400 Body height 180.3 cm Sukhwinder Villalobos MD Work Phone: [facility] 04-22-2021 06:38-0400 Body mass index (BMI) [Ratio] 53.35 kg/m2 Sukhwinder Villalobos MD Work Phone: [facility] 04-22-2021 06:38-0400 Body weight 173.5 kg Sukhwinder Villalobos MD Work Phone: [facility] Encounters Encounter Date Encounter Type Care Provider Facility Start: 04-29-2025 End: 04-29-2025 ambulatory Alis Mace MD Work Phone: [facility] Work Phone: Start: 04-29-2025 End: 04-29-[address] Alis Mace MD -[facility] Start: 04-29-2025 End: 04-29-2025 ambulatory Alis Mace Facility:[facility] Start: 01-28-2025 End: 01-28-[address] Lorie Willson MD -[facility] Work Phone: Start: 01-28-2025 End: 01-28-2025 ambulatory Alis Mace Facility:[facility] Start: 06-20-2024 End: 06-20-2024 ambulatory Alis Mace Facility:[facility] Start: 04-23-2024 End: 04-23-2024 Office outpatient visit 15 minutes Fiona Beckman Work Phone: [facility] [place] Start: 03-22-2024 ambulatory ZACK VIGIL [facility] Start: 03-22-2024 End: 03-22-2024 Office outpatient visit 25 minutes Zack Vigil MD Work Phone: [facility] Comment on above: Hyperlipidemia, unsp ecified hyperlipidemia type (Primary Dx); Primary hypertension; Cirrhosis of liver without ascites, unspecified hepatic cirrhosis type (CMS/HCC) (HCC); Type 2 diabetes mellitus without complication, without long-term current use of insulin (CMS/HCC) (HCC) Start: 03-20-2024 ambulatory ZACK VIGIL [facility] Start: 01-20-2024 End: 01-20-2024 Office outpatient visit 15 minutes Fiona Beckman Work Phone: [facility] [place] Start: 01-19-2024 End: 01-19-2024 Encounter identifier Nathalia Angela Work Phone: [facility] Start: 01-17-2024 End: 01-17-2024 Encounter identifier Nathalia Angela Work Phone: [facility] Start: 01-12-2024 End: 01-12-2024 Encounter identifier Nathalia Angela Work Phone: [facility] [place] Start: 01-06-2024 End: 01-06-2024 Encounter identifier Nathalia Angela Work Phone: [facility] [place] Start: 01-05-2024 End: 01-05-2024 Encounter identifier Nathalia Angela Work Phone: [facility] Start: 12-29-2023 End: 12-29-2023 Encounter identifier Nathalia Angela Work Phone: [facility] [place] Start: 12-27-2023 End: 12-27-2023 Encounter identifier Nathalia Angela Work Phone: [facility] [place] Start: 12-17-2023 [facility] Start: 12-16-2023 ambulatory ZACK VIGIL [facility] Start: 12-09-2023 ambulatory ZACK VIGIL [facility] Start: 12-02-2023 End: 12-02-2023 Office outpatient visit 25 minutes Tj Howell Work Phone: [facility] [place] Start: 11-23-2023 [facility] Start: 11-22-2023 Patient encounter procedure Zack Vigil MD Work Phone: [facility] Work Phone: Start: 11-22-2023 Encounter for genera l adult medical examination without abnormal findings [facility] Start: 11-22-2023 ambulatory ZACK VIGIL [facility] Start: 11-22-2023 End: 11-22-2023 ambulatory ZACK [facility] Start: 11-22-2023 End: 11-22-2023 Encounter for general adult medical examination without abnormal findings [facility] Start: 11-02-2023 End: 11-02-2023 Encounter identifier Tj Howell Work Phone: [facility] [place] Start: 10-12-2023 End: 10-12-2023 Office outpatient new 45 minutes Tj Howell Work Phone: [facility] [place] Start: 09-24-2023 End: 09-25-2023 Emergency department patient visit BERNABE DOOLEY [facility] Start: 09-24-2023 End: 09-25-2023 Emergency department patient visit Bernabe Dooley MD Work Phone: [facility] Comment on above: Painless hematuria ( Primary Dx) Start: 09-24-2023 End: 09-25-2023 Evaluation and management of inpatient Bernabe Dooley MD Work Phone: [facility] Start: 02-16-2023 ambulatory VINCENT MOSES [facility] Start: 02-16-2023 End: 02-16-2023 Evaluation and management of inpatient McSa Proc Rm 02 [facility] Start: 02-16-2023 End: 02-16-2023 Subsequent hospital visit by physician Vincent Moses MD Work Phone: [facility] Comment on above: Esophageal varices w ithout bleeding, unspecified esophageal varices type (CMS/HCC) [I85.00 (ICD-10-CM)] (Primary Dx); Esophageal varices without bleeding (CMS/HCC) Start: 12-23-2022 ambulatory TAD COLLINS H V~[id number] [facility] Start: 12-23-2022 End: 12-23-2022 Evaluation and management of inpatient McSa Proc Rm 02 [facility] Start: 12-23-2022 End: 12-23-2022 Subsequent hospital visit by physician Paul Mishra Work Phone: [facility] Comment on above: Esophageal varices w ithout bleeding, unspecified esophageal varices type (CMS/HCC) [I85.00 (ICD-10-CM)] (Primary Dx); Esophageal varices without bleeding (CMS/HCC) Start: 11-17-2022 ambulatory BISHOP LA [facility] Start: 11-17-2022 End: 11-17-2022 Evaluation and management of inpatient McCe Xr A [facility] Start: 11-17-2022 End: 11-17-2022 Subsequent hospital visit by physician Judit Ness [facility] Comment on above: Calculus of kidney; Calculus of kidney with calculus of ureter Start: 10-27-2022 ambulatory JOCELYNE TRACEY [facility] Start: 10-27-2022 End: 10-27-2022 Evaluation and management of inpatient McCe Proc Rm 03 [facility] Start: 10-27-2022 End: 10-27-2022 Subsequent hospital visit by physician Jocelyne Tracey MD Work Phone: [facility] Comment on above: Esophageal varices w ith bleeding (CMS/HCC) Start: 09-02-2022 ambulatory [facility] Start: 09-02-2022 End: 09-02-2022 Evaluation and management of inpatient McSam Us 1 [facility] Start: 09-02-2022 End: 09-02-2022 Subsequent hospital visit by physician McSam 1 [facility] Comment on above: GLASS (nonalcoholic s teatohepatitis) Start: 04-13-2022 End: 04-14-2022 Emergency department patient visit Tye Holbrook MD Work Phone: [facility] Comment on above: Dyspnea, unspecified type (Primary Dx); SOB (shortness of breath) Start: 04-13-2022 End: 04-14-2022 Evaluation and management of inpatient Tye Holbrook MD Work Phone: [facility] Start: 03-25-2022 End: 03-25-2022 Evaluation and management of inpatient McCe Xr A [facility] Start: 03-25-2022 End: 03-25-2022 Subsequent hospital visit by physician Judit Ness [facility] Comment on above: Stone, kidney Start: 03-13-2022 End: 03-13-2022 Emergency department patient visit PAUL CARDOSO [facility] Start: 10-13-2021 Transcribe Orders Dandy Healy MD Work Phone: [facility] Comment on above: Body mass index 45.0 -49.9, adult (CMS/HCC) (Primary Dx) Start: 10-13-2021 End: 10-13-2021 Transcribe Orders Dandy Healy MD Work Phone: [facility] Start: 04-22-2021 End: 04-22-2021 ambulatory Lala VILLALOBOS [facility] Start: 04-22-2021 End: 04-22-2021 Subsequent hospital visit by physician Sukhwinder Villalobos MD Work Phone: [facility] Start: 03-20-2021 End: 03-21-2021 ambulatory Lala VILLALOBOS [facility] Procedures Date Procedure Procedure Detail Performing Clinician Start: 03-20-2024 Lipid 1996 panel - Serum or Plasma Zack Vigil MD Work Phone: Start: 01-19-2024 End: 01-19-2024 Therapeutic px 1/> areas each 15 min exercises Fiona Satkowiak PA-C Start: 01-17-2024 End: 01-17-2024 Therapeutic px 1/> areas each 15 min exercises Fiona Satkowiak PA-C Start: 01-12-2024 End: 01-12-2024 Therapeutic px 1/> areas each 15 min exercises Fiona Satkowiak PA-C Start: 01-06-2024 End: 01-06-2024 Therapeut actvity direct pt contact each 15 min Fiona Satkowiak PA-C Start: 01-05-2024 End: 01-05-2024 Therapeutic px 1/> areas each 15 min exercises Fiona Satkowiak PA-C Start: 12-29-2023 End: 12-29-2023 Therapeut actvity direct pt contact each 15 min Fiona Satkowiak PA-C Start: 12-27-2023 End: 12-27-2023 Physical therapy evaluation low complex 20 mins Fiona Satkowiak PA-C Start: 12-27-2023 End: 12-27-2023 Therapeutic px 1/> areas each 15 min exercises Fiona Satkowiak PA-C Start: 12-02-2023 End: 12-02-2023 Arthrocentesis aspir&/inj major jt/bursa w/us Fiona Sofiawiak PA-C Start: 12-02-2023 End: 12-02-2023 Bupivicaine Injection 0.5 mg Fiona Sat abiliowiak PA-C Start: 12-02-2023 End: 12-02-2023 Triamcinolone acet inj NOS Fiona Satabilio wiak PA-C Start: 11-02-2023 End: 11-02-2023 Mri any jt upper extremity w/o contrast matrl Fiona Satabiliowiak PA-C Start: 10-12-2023 End: 11-29-2023 Radex shoulder complete minimum 2 views Fiona Satkowiak PA-C Start: 09-25-2023 Ct abdomen & pelvis w/o contrast material Bernabe Dooley MD Work Phone: Start: 09-25-2023 Prothrombin time Bernabe Dooley MD Work Phone: Start: 09-24-2023 EXTRA TUBES Jean Carlos Patel MD Work Phone: Start: 09-24-2023 MARTINEZ URINE CULTURE TUBE Jean Carlos Patel MD Work Phone: Start: 09-24-2023 Urnls dip stick/tablet reagent auto microscopy Bernabe Doolye MD Work Phone: Start: 09-24-2023 YELLOW URINE NO ADDITIVE Jean Carlos Mccarthy Work Phone: Start: 09-24-2023 Basic metabolic panel calcium total Jyothi cristina Dooley MD Work Phone: Start: 09-24-2023 CBC W Auto Differential panel - Blood Bernabe Dooley MD Work Phone: Start: 02-16-2023 Esophagogastroduodenoscopy Vincent Mccarthy Work Phone: Start: 02-16-2023 POCT GLUCOSE BLOOD Vincent Moses MD Work Phone: Start: 12-23-2022 Esophagogastroduodenoscopy Paul Tad Work Phone: Start: 12-23-2022 POCT GLUCOSE BLOOD Paul Tad Work Phone: Start: 11-17-2022 Radiologic exam abdomen 1 view Bishop La MD Work Phone: Start: 10-27-2022 Esophagogastroduodenoscopy Carlos pinto MD Work Phone: Start: 10-27-2022 POCT GLUCOSE BLOOD Susana Leblanc DO Work Phone: Start: 09-16-2022 Colonoscopy Zack Vigil MD Work Phone: Start: 09-02-2022 Us abdominal real time w/image limited Thom Oneill MD Work Phone: Start: 04-14-2022 Echo tthrc r-t 2d w/wom-mode compl spec&colr d Tye Holbrook MD Work Phone: Start: 04-13-2022 Assay of troponin quantitative Tye Holbrook MD Work Phone: Start: 04-13-2022 Sars-cov-2 detection by dna/rna Nati Marce parada PA Work Phone: Start: 04-13-2022 Ct angiography chest w/contrast/noncontrast Nati Mcmahonwinsome PA Work Phone: Start: 04-13-2022 Assay of troponin quantitative Nati Rosa nniti PA Work Phone: Start: 04-13-2022 Radiologic exam chest 2 views Nati vargasi PA Work Phone: Start: 04-13-2022 Basic metabolic panel calcium total Kyle Robles PA Work Phone: Start: 04-13-2022 CBC W Auto Differential panel - Blood Nati Robles PA Work Phone: Start: 04-13-2022 Ecg routine ecg w/least 12 lds trcg only w/o i&r Carlos Adorno MD Work Phone: Start: 03-25-2022 Radiologic exam abdomen 1 view Verito Zee MD Work Phone: Start: 04-22-2021 SCAN OTHER ORDERS Provider Not In System Start: 04-22-2021 Glucose measurement Sukhwinder Villalobos MD Work Phone: Start: 04-22-2021 Blood group typing Sukhwinder Villalobos MD Work Phone: Start: 04-22-2021 Basic metabolic panel calcium total Sukhwinder daly MD Work Phone: Start: 04-22-2021 Blood typing serologic abo Sukhwinder Villalobos MD Work Phone: Start: 04-22-2021 Glucose measurement Sukhwinder Villalobos MD Work Phone: Plan of Treatment Date Care Activity Detail Author Start: 09-16-2032 Screening for malignant neoplasm of colon [facility] Start: 09-14-2032 Screening for malignant neoplasm of colon Colorectal Cancer Screening: Colonoscopy [facility] Start: 07-23-2027 DTaP,Tdap,and Td Vaccines (2 - Td or Tdap) DTaP,Tdap,and Td Vaccines (2 - Td or Tdap) [facility] Start: 07-23-2027 Tdap/Td Vaccines: 21+ Years Tdap/Td Vaccines: 21+ Years [facility] Start: 07-23-2027 Tetanus vaccination Tetanus: Every 10yrs [facility] Start: 11-12-2026 Lipid panel Cholesterol Screening (Lipid Panel) [facility] Start: 03-20-2025 Creatinine measurement Creatinine Level [facility] Start: 03-20-2025 Lipid panel Lipid Panel [facility] Physicians Start: 03-20-2025 Potassium measurement Potassium Level [facility] Start: 09-24-2024 Diabetes: Annual GFR (Glomerular Filtration Rate) Diabetes: Annual GFR (Glomerular Filtration Rate) [facility] Start: 09-20-2024 Hemoglobin A1c measurement Diabetes: Hemoglobin A1C [facility] Start: 07-15-2024 Influenza vaccination Influenza Vaccine (Season Ended) [facility] Start: 01-31-2024 Hemoglobin A1c measurement Diabetes: Blood Sugar Control Test (HGBA1C) [facility] Start: 11-20-2023 Urine screening for protein Diabetes: Urine Protein Screening [facility] Start: 10-12-2023 Shoulder MRI joint, w/o contrast, Left ([id number]), Body Site: Shoulder, [facility] Start: 09-14-2023 Diabetes: Annual GFR (Glomerular Filtration Rate) Diabetes: Annual GFR (Glomerular Filtration Rate) [facility] Start: 09-14-2023 Hypertension/CHF/CAD Annual BMP Blood Test Hypertension/CHF/CAD Annual BMP Blood Test [facility] Start: 07-15-2023 COVID-19 Vaccine ( season) COVID-19 Vaccine () [facility] Start: 07-15-2023 Influenza vaccination Influenza Vaccine (#1) [facility] Start: 04-13-2023 Hypertension/CHF/CAD Annual BMP Blood Test Hypertension/CHF/CAD Annual BMP Blood Test [facility] Start: 03-08-2023 Hypertension/CHF/CAD Annual BMP Blood Test Hypertension/CHF/CAD Annual BMP Blood Test [facility] Start: 11-12-2022 Urine screening for protein Diabetes: Annual Urine Protein Test (Microalbumin) [facility] Start: 09-14-2022 Subsequent hospital visit by physician 09/14/2022 Hospital Encounter Gastroenterology Dionicio Chávez DO [address] [place] [address] [facility] Start: 07-15-2022 Influenza vaccination [facility] Start: 01-23-2022 COVID-19 Vaccine (4 - Booster for Pfizer series) COVID-19 Vaccine (4 - Booster for Pfizer series) [facility] Start: 12-02-2021 Diabetes: Annual Retina Eye Exam Diabetes: Annual Retina Eye Exam [facility] Start: 12-02-2021 Diabetes: Annual Urine Albumin-Creatinine Ratio Diabetes: Annual Urine Albumin-Creatinine Ratio [facility] Start: 12-02-2021 Diabetes: Annual Urine Albumin-Creatinine Ratio (uACR) Diabetes: Annual Urine Albumin-Creatinine Ratio (uACR) [facility] Start: 12-02-2021 Diabetic foot examination Diabetes: Annual Foot Exam [facility] Start: 12-02-2021 Hemoglobin A1c measurement Diabetes: Blood Sugar Control Test (HGBA1C) [facility] Start: 12-02-2021 Urine screening for protein Diabetes: Annual Urine Protein Test (Microalbumin) [facility] Start: 10-13-2021 End: 10-13-2022 US Abdomen Limited US Abdomen Limited Imaging Routine Body mass index 45.0-49.9, adult (CMS/HCC) Expected: 10/13/2021, Expires: 10/13/2022 [facility] Work Phone: Comment on above: Expected: 10/13/2021, Expires: Start: 07-15-2021 Influenza vaccination Influenza Vaccine (#1) [facility] Start: 04-30-2021 End: 04-30-2021 Patient encounter procedure 04/30/2021 Office Visit General Surgery Sukhwinder Villalobos MD [address] [place] [address] [phone] [facility] Start: 12-23-2019 Adolescent depression screening assessment Depression Screening [facility] Start: 12-23-2019 Hepatitis C screening Hepatitis C Screening [facility] Start: 12-23-2019 HIV screening HIV Screening [facility] Start: 12-23-2019 Lipid panel Cholesterol Screening (Lipid Panel) [facility] Start: 12-23-2019 Social Influencers of Health Screening Social Influencers of Health Screening [facility] Start: 1997 DTaP,Tdap,and Td Vaccines (1 - Tdap) DTaP,Tdap,and Td Vaccines (1 - Tdap) [facility] Start: 1996 Hepatitis C screening Hepatitis C Screening [facility] Start: 1993 HIV screening HIV Screening [facility] Start: 1990 COVID-19 Vaccine (1) COVID-19 Vaccine (1) [facility] Start: 1990 Depression screening using PHQ-9 (Patient Health Questionnaire 9) score Depression Screening (PHQ9) [facility] Start: 1988 Diabetes: Annual Retina Eye Exam Diabetes: Annual Retina Eye Exam [facility] Start: 1988 Diabetic foot examination [facility] Start: 1988 Glaucoma screening Diabetes: Retinopathy Screening [facility] Start: 1988 Microalbumin measurement, urine, quantitative Urine Microalbumin [facility] Start: 1988 Ophthalmic examination and evaluation Ophthalmology Exam [facility] Start: 1984 Pneumococcal Vaccine: Pediatrics (0 to 5 Years) and At-Risk Patients (6 to 64 Years) (1 - PCV) Pneumococcal Vaccine: Pediatrics (0 to 5 Years) and At-Risk Patients (6 to 64 Years) (1 - PCV) [facility] Start: 1984 Pneumococcal Vaccine: Pediatrics (0 to 5 Years) and At-Risk Patients (6 to 64 Years) (1 of 2 - PCV) Pneumococcal Vaccine: Pediatrics (0 to 5 Years) and At-Risk Patients (6 to 64 Years) (1 of 2 - PCV) [facility] Start: 1984 Pneumococcal Vaccine: Pediatrics (0 to 5 Years) and At-Risk Patients (6 to 64 Years) (1 of 2 - PPSV23) Pneumococcal Vaccine: Pediatrics (0 to 5 Years) and At-Risk Patients (6 to 64 Years) (1 of 2 - PPSV23) [facility] Start: 1981 History and physical examination, annual for health maintenance Wellness Visit [facility] Start: 1979 MMR Vaccines (1 of 1 - Standard series) MMR Vaccines (1 of 1 - Standard series) [facility] Start: 1978 Hemoglobin A1c measurement A1C [facility] Start: 1978 HIV screening HIV Screening [facility] Start: 1978 Screening for malignant neoplasm of colon [facility] Immunizations Immunization Date Immunization Notes Care Provider Fa cility 11-30-2022 influenza, injectabl e, quadrivalent, preservative free Zack Vigil MD Work Phone: [facility] Work Phone: 11-30-2022 influenza virus vaccine, unspecified formulation Bernabe Dooley MD Work Phone: [facility] 11-28-2021 Pfizer COVID-19, mRN A, 30 mcg/0.3mL Zack Vigil MD Work Phone: [facility] 03-22-2021 Pfizer SARS-CoV-2 Vaccination Sukhwinder Villalobos MD Work Phone: [facility] 03-01-2021 Pfizer COVID-19, mRN A, 30 mcg/0.3mL Zack Vigil MD Work Phone: [facility] 08-21-2020 influenza, injectabl e, quadrivalent, preservative free Zack Vigil MD Work Phone: [facility] 08-21-2020 influenza virus vaccine, unspecified formulation Sbe Grover [facility] 10-19-2019 influenza, injectabl e, quadrivalent, preservative free Zack Vigil MD Work Phone: [facility] 08-16-2018 influenza, injectabl e, quadrivalent, preservative free Zack Vigil MD Work Phone: [facility] 07-23-2017 influenza, injectabl e, quadrivalent, preservative free Zack Vigil MD Work Phone: [facility] 07-23-2017 tetanus toxoid, reduced diphtheria toxoid, and acellular pertussis vaccine, adsorbed Zack Vigil MD Work Phone: [facility] 01-14-2017 hepatitis A vaccine, adult dosage Zack Vigil MD Work Phone: [facility] 01-14-2017 hepatitis B vaccine, adult dosage Zack Vigil MD Work Phone: [facility] 05-31-2016 Hepatitis B vaccine (recombinant), CpG adjuvanted Zack Vigil MD Work Phone: [facility] 05-31-2016 hepatitis B vaccine, adult dosage Zack Vigil MD Work Phone: [facility] Work Phone: 03-25-2016 hepatitis A vaccine, adult dosage Zack Vigil MD Work Phone: [facility] 03-25-2016 Hepatitis B vaccine (recombinant), CpG adjuvanted Zack Vigil MD Work Phone: [facility] 03-25-2016 hepatitis B vaccine, adult dosage Zack Vigil MD Work Phone: [facility] Payers Date Payer Category Payer Unknown [id number] 2024 Medicaid [id number] 2024 Self-pay 2018 Private Health Insurance [id number] 2018 Unknown [id number] 2018 Unknown [id number]. [id number] 1978 Unknown [id number] 2.16.840.1.881139.3.579.2. 900 1978 Unknown [id number] 2.16.840.1.377339.3.579.2. 902 1978 Unknown [id number] 2.16.840.1.944868.3.579.2. 902 1978 Unknown [id number] 2.16.840.1.784633.3.579.2. 1142 1978 Unknown [id number] 2.16.840.1.101830.3.579.2. 1143 1978 Unknown [id number] 2.16.840.1.222887.3.579.2. 1142 1978 Unknown [id number] 2.16.840.1.750814.3.579.2. 1143 1978 Unknown [id number] 2.16.840.1.893162.3.579.2. 1142 1978 Unknown [id number] 2.16.840.1.099084.3.579.2. 1143 1978 Unknown [id number] 2.16.840.1.333509.3.579.2. 1260 1978 Unknown [id number] 2.16.840.1.880140.3.579.2. 1260 1978 Unknown [id number] 2.16.840.1.683260.3.579.2. 1260 1978 Unknown [id number] 2.16.840.1.235707.3.579.2. 1260 1978 Unknown [id number] 2.16.840.1.798591.3.579.2. 1260 1978 Unknown [id number] 2.16.840.1.944941.3.579.2. 1260 1978 Unknown [id number] 2.16.840.1.139647.3.579.2. 1260 1978 Unknown [id number] 2.16.840.1.716506.3.579.2. 1260 1978 Unknown [id number] 2.16.840.1.861781.3.579.2. 1260 Unknown SELF INS BWC RUB BERMAID 2000 [id number] Unknown [id number] 2.16.840.1.927368.3.579.2. 462 Unknown [id number] 2.16.840.1.676778.3.579.2. 462 Unknown [id number] 2.16.840.1.801416.3.579.2. 462 Social History Date Type Detail Facility Start: 04-22-2021 End: 01-28-2025 Tobacco smoking status NHIS Never smoker [facility] Start: 04-22-2021 End: 11-22-2023 Tobacco use and exposure Never used [facility] Start: 04-22-2021 End: 09-24-2023 Alcohol intake Current drinker of alcohol (finding) [facility] Start: 04-22-2021 End: 11-22-2023 Alcohol intake [facility] Start: 02-11-2016 Alcohol Comment occasionally [facility] Start: 1980 Sex Assigned At Not on file [facility] Start: 03-15-2022 End: 02-16-2023 Exposure to SARS-CoV-2 (event) Not sure [facility] Start: 04-13-2022 End: 03-22-2024 Alcohol intake Ex-drinker (finding) [facility] Start: 10-27-2022 Alcohol Comment rare [facility] Start: 11-22-2023 End: 03-22-2024 Gender identity Not on file [facility] How often to you hav e a drink containing alcohol? Monthly or less [facility] How many standard drinks containing alcohol do you have on a typical day? 1 or 2 [facility] Work Phone: How often do you hav e 6 or more drinks on 1 occasion? Never [facility] Work Phone: How hard is it for y ou to pay for the very basics like food, housing, medical care, and heating Not very hard [facility] Work Phone: The food that (I/we) bought just didn't last, and (I/we) didn't have money to get more. Never true [facility] Work Phone: In the past 12 month s, has lack of transportation kept you from medical appointments or from getting medications? No [facility] Work Phone: In the past 12 month s, was there a time when you were not able to pay the mortgage or rent on time? No [facility] Work Phone: Start: 11-22-2023 Tobacco Comment Very brief experimentation in college [facility] Work Phone: Start: 11-22-2023 Alcohol Comment Maybe one chau jin every few years on very special occasions [facility] Work Phone: Start: 04-23-2024 Alcohol intake Alcohol Use Details [facility] Start: 1980 Sex Assigned At Male [facility] Work Phone: Start: 01-21-2020 Sexual Orientation Straight or heterosexual [facility] NEGATED: Highlighted rowStart: 04-23-2024 Tobacco smoking status NHIS Unknown if ever smoked [facility] Medical Equipment Procedure Code Equipment Code Equipment Origin al Text Equipment Identifier Dates Patch 1.7in [place] W/Strap Sm Ventralex St - [id number] , [id number] FDA Start: 04-22-2021 Functional Status Date Assessment Result Facility 04-23-2024 Pain severity - 0-10 verbal numeric rating [Score] - Reported 11/23 [facility] Clinical Notes 04-17-2021 to 01-28-2025 Note Date & Type Note Facility 01-28-2025 Evaluation note Diagnosis Onset Date Resolution Anal fissure acute January 28, 2025 2:30pm [facility] Work Phone: 1(412) 830-896605-09-2024 History of Present illness Narrative* Zack Vigil MD - 03/22/2024 9:30 AM EDT Subjective Patient ID: Leon Rider is a 43 y.o. male who presents for Follow-up. Follow-up diabetes hypertension hyperlipidemia cirrhosis HPI Patient feeling okay. In the process of moving, they are moving up to [facility]. Very active packing and moving boxes. No further episodes of chest pain or shortness of breath since last visit, he ultimately did not end up getting a stress test. Review of Systems No weight manager exchange 4 months Objective Visit Vitals BP 130/80 (BP Location: Left arm, Patient Position: Sitting) Pulse 84 Wt (!) 364 lb 12.8 oz (165 kg) BMI 51.60 kg/m Smoking Status Never BSA 2.87 m Physical Exam General appearance: Well appearing, comfortable Head: Normocephalic Eyes: EOMI, PERRLA Nose: Nares patent Neck: Neck supple Skin: Normal, good turgor, no rashes Heart: Regular rate and rhythm Lungs: Clear to auscultation bilaterally Chest: Normal shape and expansion Neurologic: Alert and oriented, nonfocal Psych: Mood/affect normal, cooperative with exam, good eye contact, speech clear Problem List Items Addressed This Visit Medium Diabetes (HCC) Chronic stable illness-patient's diabetes currently well controlled. Continue current medical regimen as it is necessary and effective. Encouraged diet exercise weight loss efforts. Repeat BMP and A1c in 4 months to reassess. Hyperlipidemia - Primary Chronic unstable illness-patient cholesterol remains slightly above goal. Encouraged diet exercise weight loss efforts. Continue Zetia therapy as it is necessary and effective. Check lipid profile and LFTs in 4-6 months to reassess Hypertension Chronic stable illness-patient's blood pressure well controlled. Continue current medical regimen as it is necessary and effective. Encourage diet exercise and weight loss efforts. Unspecified cirrhosis of liver (HCC) Chronic unstable illness- patient's LFTs remain mildly elevated, following with GI for GLASS inducedcirrhosis. Will be establishing with new specialist after he moves [facility] Work Phone: 1(652) 210-871111-11-2023 History of Present illness Narrative* Bernabe Dooley MD - 09/24/2023 5:59 PM EST Emergency Department Encounter Note Patient Name: Leon Rider Initial Evaluation: 09/24/2023 : 1980 Patient's PCP: Zack Vigil MD Emergency Physician: Benjamín Dooley MD History of Present Illness The patient is a 43 y.o. male who has a past medical history of anxiety/depression, liver cirrhosis, esophageal varices, GLASS, HTN, HLD, GERD, thrombocytopenia; here in the ER with complaint of hematuria that began earlier in the morning of 09/24/2023. Patient describes it as a wine tinge. Patient denies any other symptoms such as abdominal pain, dysuria, fever, lightheadedness/dizziness. Patient mentions to triage of having some changes in his mood and sleep with his medications, however patient does not complain of that to me. Review of Systems I personally reviewed all systems and other than those pertinent positives and negatives noted above, found them to be unremarkable. Nursing triage notes were reviewed by me and I agree. Previous History Past Medical History Nursing triage notes/past medical, social, and family history reviewed by me and I agree. Past Medical History: Diagnosis Date Anxiety Cirrhosis (CMS/HCC) Delayed emergence from general anesthesia Depression Diabetes mellitus (CMS/HCC) ED (erectile dysfunction) Esophageal varices (CMS/HCC) Fatty liver GAVE (gastric antral vascular ectasia) GERD (gastroesophageal reflux disease) Hyperlipidemia Hypertension Liver cirrhosis (CMS/HCC) Lymphedema Morbid obesity (CMS/HCC) GLASS (nonalcoholic steatohepatitis) Nephrolithiasis Portal hypertensive gastropathy (CMS/HCC) 12/2022 Moderate Sleep apnea Uses CPAP Thrombocytopenia (CMS/HCC) Venous insufficiency Past Surgical History Past Surgical History: Procedure Laterality Date COLONOSCOPY ESOPHAGOGASTRODUODENOSCOPY W/ BANDING multiple times HERNIA REPAIR 04/2021 Umbilical WISDOM TOOTH EXTRACTION 2001 Physical Exam Physical Exam Vitals: Visit Vitals BP (!) 151/79 Pulse 79 Temp 36.7 C (98 F) (Oral) Resp 16 Ht 1.803 m (71) Wt 168 kg (370 lb) SpO2 97% BMI 51.60 kg/m Smoking Status Never BSA 2.74 m Vital Signs (First & Last Sets of This Visit): CONSTITUTIONAL: Well-appearing. Well-hydrated. HEAD: Normocephalic, atraumatic. EYES: No conjunctival injection, no icterus. EARS: External ears appear normal. NOSE: Nose appears normal. NECK: Trachea is midline. Neck is supple. RESPIRATORY: Normal chest excursion with respiration, no stridor. Lungs clear equal to auscultationbilaterally. No rales, rhonchi or wheezes. CARDIOVASCULAR: Regular rate and rhythm. GASTROINTESTINAL: Abdomen is soft and nontender. Negative Moyer sign. No McBurney's point tenderness. Normoactive bowel sounds. No CVA tenderness bilaterally. NEUROLOGICAL: Awake, alert and oriented. Neurologically nonfocal. PSYCHOLOGICAL: The patient's mood and manner are appropriate. INTEGUMENTARY: Skin is warm and dry. No evidence of rash. MUSCULOSKELETAL: No deformities in all 4 extremities. ED Results: Pulse ox 97% Normal as interpreted by me. The patient's old medical records have been reviewed. I saw and evaluated the patient. I have reviewed the chief complaint, triage note, past medical/surgical, family, and social history. LABS: Labs Reviewed BASIC METABOLIC PANEL - Abnormal Result Value Sodium 134 (*) Potassium 4.0 Chloride 101 CO2 27 Anion Gap 6 Glucose 178 (*) BUN 8 Creatinine 0.64 eGFR 119 BUN/Creatinine Ratio 12.5 Calcium 9.3 URINALYSIS WITH MICROSCOPIC - Abnormal Color, Urine Colorless (*) Clarity, Urine Clear Specific [place] Urine 1.010 pH, Urine 6.5 Leukocytes, Urine Negative Nitrite, Urine Negative Protein, Urine Negative Glucose, Urine >1000 (*) Ketones, Urine Negative Urobilinogen, Urine Normal Blood, Urine 3+ (*) Bilirubin, Urine Negative RBC, Urine 247 (*) WBC, Urine <1 Bacteria, Urine Rare (*) CBC WITH AUTO DIFFERENTIAL - Abnormal WBC 4.3 (*) RBC 4.40 Hemoglobin 12.7 (*) Hematocrit 38.5 (*) MCV 87.5 MCH 28.9 MCHC 33.0 RDW 18.4 (*) Platelets 85 (*) MPV 11.0 Neutrophils Relative 48.9 Lymphocytes Relative 26.8 Monocytes Relative 17.1 Eosinophils Relative 5.4 Basophils Relative 1.6 Immature Granulocytes Relative 0.2 Neutrophils Absolute 2.08 Lymphocytes Absolute 1.14 Monocytes Absolute 0.73 Eosinophils Absolute 0.23 Basophils Absolute 0.07 Immature Granulocytes Absolute 0.01 PROTHROMBIN TIME WITH INR - Abnormal Protime 17.6 (*) INR 1.5 Narrative: The recommended therapeutic INR range for most cardiac indications is 2.0-3.0 For high intensity therapy (i.e. mechanical heart valves), the recommended range is 2.5-3.5 ACTIVATED PARTIAL THROMBOPLASTIN TIME - Normal aPTT 34.7 CBC AND DIFFERENTIAL Narrative: The following orders were created for panel order CBC and differential. Procedure Abnormality Status --------- ------ CBC auto differential[[id number]] Abnormal Final result Please view results for these tests on the individual orders. IMAGING: CT Abdomen Pelvis wo Contrast Final Result No acute inflammatory process identified in the abdomen or pelvis. Cirrhotic morphology of the liver. Splenomegaly and prominent collateral veins in the left upper quadrant consistent with portal hypertension. These findings have worsened since the prior examination. Esophageal and gastric varices are also present. Mildly enlarged right lower quadrant lymph nodes, similar to the prior examination. -------- FINAL REPORT -------- Dictated By: Tal Hadley Dictated Date: 09/25/2023 02:17 Assigned Physician: Tal Hadley Reviewed and Electronically Signed By: Tal Hadley Signed Date: 09/25/2023 02:23 Workstation ID: [id number] Transcribed By: Self Edit Transcribed Date: 09/25/2023 02:17 MEDICATIONS ADMINISTERED: Medications - No data to display MEDICAL DECISION MAKING Differential Diagnosis Considered -: Yes, the differential associated with the patient's presentation includes But not limited to kidney stones, urinary tract infection, hemorrhagic cystitis, pain ishematuria, bladder CA Escalation of care including admission/observation considered -: Admission considered if significant abnormalities on work-up Review of External Record -: Yes: Outpatient record Reports and prior outpatient labs Chronic Conditions Affecting Care -: Yes: HTN, liver cirrhosis Nontoxic-appearing and afebrile with normal vital signs pulse ox. Patient has no current physical complaints related to his hematuria. CT abdomen/pelvis with no acute abnormalities aside from liver cirrhosis and noted chronic right lower quadrant lymphadenopathy. No evidence of kidney stones or obstructive uropathy. Lab work noted unremarkable aside from platelet count 85,000 which is improved compared to prior platelet counts. Urinalysis showing hematuria. Case discussed with patient agreed with plan for discharge home and follow-up outpatient with his urologist. Patient understands to return to the ER for worsening symptoms. Status on disposition good. ED Pre-Disposition Vitals: Vitals: 09/24/23 1817 BP: (!) 151/79 Pulse: 79 Resp: 16 Temp: 36.7 C (98 F) SpO2: 97% Procedures Discharge Medications: ED Prescriptions None IMPRESSION: 1. Painless hematuria Final diagnoses: [R31.9] Painless hematuria Bernabe Dooley MD 09/25/23 0349 Bernabe Dooley MD 09/25/23 0735 [id number] Hospital Discharge instructions* Discharge Instructions* Suki Bales RN - 02/16/2023 9:39 AM EDT Endoscopy Discharge Instructions Your Procedure Was: Esophagogastroduodenoscopy (EGD) Follow-up Care Repeat egd in 6 months. Call 911 if you have difficulty breathing or chest pain. 2. Call your doctor or go to the emergency room if you have: A fever greater than 101 or chills Intense or severe pain Heavy bleeding (a few streaks of blood are not unusual) Nausea and vomiting that does not go away Trouble swallowing Increased abdominal bloating Call your doctor with any other questions or problems. 3. Sedation You received sedation for your procedure today and it may take 24 hours to leave your system. You may have some drowsiness, lightheadedness, and may not remember your procedure. You should have an adult stay with you for 24 hours. Do not take any other sedatives or drink alcohol today. Do not drive or operate machinery (power tools, lawn mowers, etc.), cook, make business decisions or shop online for 24 hours. Although you may feel alert, your reactions may be slower. 4. Diet Resume your regular diet unless instructed otherwise. 5. Activity You may resume normal activity in 24 hours. Do not return to work today. * Attachments The following attachments cannot be sent through Care Everywhere. * Esophageal Varices ([place]) documented in this encounterVeterans Affairs [facility] [id number] History of Present illness Narrative* Misty Dodson RN - 02/16/2023 9:[address] Vincent Moses- Portal Hypertensive Gastropathy, (PHG) , Gastric Antral Vascular Ectasia Endoscopic report given to ASBESTOS COVERER - Suki Bales documented in this encounterVeterans Affairs [facility] [id number] Attending History and physical note* Vincent Moses MD - 02/16/2023 9:00 AM EDT I have seen and evaluated the patient. I concur with the findings of the H&P. There are no significant changes. The patient is appropriate to proceed with the planned procedure. Source Note - Kenya Andre NP - 02/16/2023 9:00 AM EDT Images from the original note were not included. Kenya Andre NP [facility] Hospitalists History and Physical Same Day Surgery Patient Name:Leon Ridre :1980 Admit Date: [id number] Physicians: Zack Vigil MD (PCP) Perpetual Assessment: Leon Rider is a 42 y.o. male who presented for EGD, per the request of Dr. Moses. [facility] has been asked to see the patient for a pre- operative risk assessment. ASSESSMENT AND PLAN Pre-Op Evaluation - The patient is being evaluated for a low risk surgery - The patient has no symptoms - The patient's functional capacity is >4 METS - The patient has the following pertinent Revised Cardiac Risk Index Indicators None - Based on the above, the patient is at low risk to proceed to surgery - The patient may proceed to surgery, with comments/risks as noted above GLASS Cirrhosis Portal Hypertension Esophageal Varices - presents for EGD for surveillance of esophageal varices - denies any hematemesis or melena, no abdominal pain, no ascites - continue home diuretic, BB 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 male with GLASS cirrhosis who presents for EGD for surveillance of esophageal varices. Denies any hematemesis or melena. Denies abd pain. Denies cp/sob. No problems with anesthesia in past. ROS: The following system(s) were reviewed. Pertinent positive and negative findings are noted in the HPI. [x] Const [x] ENT [x] CV [] [] Musc [] Psych [x] Allergy [] Eyes [x] Resp [x] GI [x] Neuro [] Skin [] Endo [x] Heme/Lymph PMH/PSH/SH/FH: Past Medical History: Diagnosis Date Anxiety Cirrhosis (CMS/HCC) Delayed emergence from general anesthesia Depression Diabetes mellitus (CMS/HCC) ED (erectile dysfunction) Esophageal varices (CMS/HCC) Fatty liver GAVE (gastric antral vascular ectasia) GERD (gastroesophageal reflux disease) Hyperlipidemia Hypertension Liver cirrhosis (CMS/HCC) Lymphedema Morbid obesity (CMS/HCC) GLASS (nonalcoholic steatohepatitis) Nephrolithiasis Portal hypertensive gastropathy (CMS/HCC) 12/2022 Moderate Sleep apnea Uses CPAP Thrombocytopenia (CMS/HCC) Venous insufficiency Past Surgical History: Procedure Laterality Date COLONOSCOPY ESOPHAGOGASTRODUODENOSCOPY W/ BANDING multiple times HERNIA REPAIR 04/2021 Umbilical WISDOM TOOTH EXTRACTION 2001 Family History Problem Relation Name Age of Onset Diabetes Father Social History Socioeconomic History Marital status: Spouse name: Not on file Number of children: Not on file Years of education: Not on file Highest education level: Not on file Occupational History Not on file Tobacco Use Smoking status: Never Smokeless tobacco: Never Vaping Use Vaping Use: Never used Substance and Sexual Activity Alcohol use: Yes Comment: rare Drug use: Not Currently Sexual activity: Defer Other Topics Concern Not on file Social History Narrative Not on file Allergy Information: I have reviewed the patient's allergies. Patient has no known allergies. Home Medications: Prior to Admission medications Medication Sig Start Date End Date Taking? Authorizing Provider atenoloL (TENORMIN) 25 mg tablet Take 1 tablet (25 mg total) by mouth 1 (one) time each day. Patient taking differently: Take 1 tablet (25 mg total) by mouth 1 (one) time each day in the morning. 04/14/22 10/27/22 Loli Zee MD ertugliflozin (Steglatro) 15 mg tablet Take 15 mg by mouth 1 (one) time each day in the morning. Historical ProviderMD furosemide (LASIX) 20 mg tablet Take 1 tablet (20 mg total) by mouth 1 (one) time each day after lunch. Historical ProviderMD hydrOXYzine HCL (ATARAX) 25 mg tablet Take 1 tablet (25 mg total) by mouth 2 (two) times a day if needed for anxiety. 04/14/22 09/13/22 Loli Zee MD metFORMIN (GLUCOPHAGE) 1,000 mg tablet Take 1 tablet (1,000 mg total) by mouth 2 (two) times a day with meals. Hold pm dose 4-4 & am dose 4-5 04/16/22 Loli Zee MD multivit-minerals/folic acid (ONE-A-DAY MEN VITACRAVES ORAL) Take 1 capsule by mouth 1 (one) time each day in the morning. Historical ProviderMD omeprazole (PriLOSEC) [address] capsule Take 1 capsule (40 mg total) by mouth 1 (one) time each day in the morning. Do not crush or chew. Historical ProviderMD potassium chloride (KLOR-CON M20) 20 mEq CR tablet Take 1 tablet (20 mEq total) by mouth 1 (one) time each day in the morning. Historical ProviderMD sertraline (ZOLOFT) 50 mg tablet Take 1 tablet (50 mg total) by mouth 1 (one) time each day in the morning. Historical ProviderMD SITagliptin (JANUVIA) 100 mg tablet Take 1 tablet (100 mg total) by mouth 1 (one) time each day. Atlunch Historical ProviderMD triamterene-hydroCHLOROthiazide (MAXZIDE-25) 37.5-25 mg per tablet Take 1 tablet by mouth 1 (one) time each day. Hold am DOS 4-5 Historical Provider, Physical Examination Vital Signs: GENERAL: Vitals stable EYES: Conjunctiva clear ENT: Hearing intact, pharynx clear CV: RRR, no murmurs RESP: Clear to auscultation of lungs GI: Bowel sounds heard, soft, non-tender NEURO: Alert, Ox3. No obvious focal deficits noted PSYCH: Mood and affect are appropriate. Laboratory and Additional Data Acquired or Reviewed: [x] Laboratory [x] Radiology [x] Cardiology [x] Medications [x] Transcriptions [] Microbiology [x] Outside Records [] Family [employer] Phone: [phone]) 772-420504-05-2023 History and physical note* Kenya Andre NP - 02/16/2023 9:00 AM EDT Images from the original note were not included. Kenya Andre NP [facility] Hospitalists History and Physical Same Day Surgery Patient Name:Leon Rider :1980 Admit Date: [id number] Physicians: Zack Vigil MD (PCP) Perpetual Assessment: Leon Rider is a 42 y.o. male who presented for EGD, per the request of Dr. Moses. [facility] has been asked to see the patient for a pre- operative risk assessment. ASSESSMENT AND PLAN Pre-Op Evaluation - The patient is being evaluated for a low risk surgery - The patient has no symptoms - The patient's functional capacity is >4 METS - The patient has the following pertinent Revised Cardiac Risk Index Indicators None - Based on the above, the patient is at low risk to proceed to surgery - The patient may proceed to surgery, with comments/risks as noted above GLASS Cirrhosis Portal Hypertension Esophageal Varices - presents for EGD for surveillance of esophageal varices - denies any hematemesis or melena, no abdominal pain, no ascites - continue home diuretic, BB 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 male with GLASS cirrhosis who presents for EGD for surveillance of esophageal varices. Denies any hematemesis or melena. Denies abd pain. Denies cp/sob. No problems with anesthesia in past. ROS: The following system(s) were reviewed. Pertinent positive and negative findings are noted in the HPI. [x] Const [x] ENT [x] CV [] [] Musc [] Psych [x] Allergy [] Eyes [x] Resp [x] GI [x] Neuro [] Skin [] Endo [x] Heme/Lymph PMH/PSH/SH/FH: Past Medical History: Diagnosis Date Anxiety Cirrhosis (CMS/HCC) Delayed emergence from general anesthesia Depression Diabetes mellitus (CMS/HCC) ED (erectile dysfunction) Esophageal varices (CMS/HCC) Fatty liver GAVE (gastric antral vascular ectasia) GERD (gastroesophageal reflux disease) Hyperlipidemia Hypertension Liver cirrhosis (CMS/HCC) Lymphedema Morbid obesity (CMS/HCC) GLASS (nonalcoholic steatohepatitis) Nephrolithiasis Portal hypertensive gastropathy (CMS/HCC) 12/2022 Moderate Sleep apnea Uses CPAP Thrombocytopenia (CMS/HCC) Venous insufficiency Past Surgical History: Procedure Laterality Date COLONOSCOPY ESOPHAGOGASTRODUODENOSCOPY W/ BANDING multiple times HERNIA REPAIR 04/2021 Umbilical WISDOM TOOTH EXTRACTION 2001 Family History Problem Relation Name Age of Onset Diabetes Father Social History Socioeconomic History Marital status: Spouse name: Not on file Number of children: Not on file Years of education: Not on file Highest education level: Not on file Occupational History Not on file Tobacco Use Smoking status: Never Smokeless tobacco: Never Vaping Use Vaping Use: Never used Substance and Sexual Activity Alcohol use: Yes Comment: rare Drug use: Not Currently Sexual activity: Defer Other Topics Concern Not on file Social History Narrative Not on file Allergy Information: I have reviewed the patient's allergies. Patient has no known allergies. Home Medications: Prior to Admission medications Medication Sig Start Date End Date Taking? Authorizing Provider atenoloL (TENORMIN) 25 mg tablet Take 1 tablet (25 mg total) by mouth 1 (one) time each day. Patient taking differently: Take 1 tablet (25 mg total) by mouth 1 (one) time each day in the morning. 04/14/22 10/27/22 Loli Zee MD ertugliflozin (Steglatro) 15 mg tablet Take 15 mg by mouth 1 (one) time each day in the morning. Historical ProviderMD furosemide (LASIX) 20 mg tablet Take 1 tablet (20 mg total) by mouth 1 (one) time each day after lunch. Historical ProviderMD hydrOXYzine HCL (ATARAX) 25 mg tablet Take 1 tablet (25 mg total) by mouth 2 (two) times a day if needed for anxiety. 04/14/22 09/13/22 Loli Zee MD metFORMIN (GLUCOPHAGE) 1,000 mg tablet Take 1 tablet (1,000 mg total) by mouth 2 (two) times a day with meals. Hold pm dose 4-4 & am dose 4-5 04/16/22 Loli Zee MD multivit-minerals/folic acid (ONE-A-DAY MEN VITACRAVES ORAL) Take 1 capsule by mouth 1 (one) time each day in the morning. Historical ProviderMD omeprazole (PriLOSEC) [address] capsule Take 1 capsule (40 mg total) by mouth 1 (one) time each day in the morning. Do not crush or chew. Historical ProviderMD potassium chloride (KLOR-CON M20) 20 mEq CR tablet Take 1 tablet (20 mEq total) by mouth 1 (one) time each day in the morning. Historical ProviderMD sertraline (ZOLOFT) 50 mg tablet Take 1 tablet (50 mg total) by mouth 1 (one) time each day in the morning. Historical ProviderMD SITagliptin (JANUVIA) 100 mg tablet Take 1 tablet (100 mg total) by mouth 1 (one) time each day. Atlunch Historical ProviderMD triamterene-hydroCHLOROthiazide (MAXZIDE-25) 37.5-25 mg per tablet Take 1 tablet by mouth 1 (one) time each day. Hold am DOS 4-5 Historical ProviderMD Physical Examination Vital Signs: GENERAL: Vitals stable EYES: Conjunctiva clear ENT: Hearing intact, pharynx clear CV: RRR, no murmurs RESP: Clear to auscultation of lungs GI: Bowel sounds heard, soft, non-tender NEURO: Alert, Ox3. No obvious focal deficits noted PSYCH: Mood and affect are appropriate. Laboratory and Additional Data Acquired or Reviewed: [x] Laboratory [x] Radiology [x] Cardiology [x] Medications [x] Transcriptions [] Microbiology [x] Outside Records [] Family [employer] Phone: [phone] History and physical note* Vincent Moses MD - 02/16/2023 9:00 AM EDT I have seen and evaluated the patient. I concur with the findings of the H&P. There are no significant changes. The patient is appropriate to proceed with the planned procedure. Source Note - Kenya Andre NP - 02/16/2023 9:00 AM EDT Images from the original note were not included. Kenya Andre NP [facility] Hospitalists History and Physical Same Day Surgery Patient Name:Leon Rider :1980 Admit Date: [id number] Physicians: Zack Vigil MD (PCP) Perpetual Assessment: Leon Rider is a 42 y.o. male who presented for EGD, per the request of Dr. Moses. [facility] has been asked to see the patient for a pre- operative risk assessment. ASSESSMENT AND PLAN Pre-Op Evaluation - The patient is being evaluated for a low risk surgery - The patient has no symptoms - The patient's functional capacity is >4 METS - The patient has the following pertinent Revised Cardiac Risk Index Indicators None - Based on the above, the patient is at low risk to proceed to surgery - The patient may proceed to surgery, with comments/risks as noted above GLASS Cirrhosis Portal Hypertension Esophageal Varices - presents for EGD for surveillance of esophageal varices - denies any hematemesis or melena, no abdominal pain, no ascites - continue home diuretic, BB 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 male with GLASS cirrhosis who presents for EGD for surveillance of esophageal varices. Denies any hematemesis or melena. Denies abd pain. Denies cp/sob. No problems with anesthesia in past. ROS: The following system(s) were reviewed. Pertinent positive and negative findings are noted in the HPI. [x] Const [x] ENT [x] CV [] [] Musc [] Psych [x] Allergy [] Eyes [x] Resp [x] GI [x] Neuro [] Skin [] Endo [x] Heme/Lymph PMH/PSH/SH/FH: Past Medical History: Diagnosis Date Anxiety Cirrhosis (CMS/HCC) Delayed emergence from general anesthesia Depression Diabetes mellitus (CMS/HCC) ED (erectile dysfunction) Esophageal varices (CMS/HCC) Fatty liver GAVE (gastric antral vascular ectasia) GERD (gastroesophageal reflux disease) Hyperlipidemia Hypertension Liver cirrhosis (CMS/HCC) Lymphedema Morbid obesity (CMS/HCC) GLASS (nonalcoholic steatohepatitis) Nephrolithiasis Portal hypertensive gastropathy (CMS/HCC) 12/2022 Moderate Sleep apnea Uses CPAP Thrombocytopenia (CMS/HCC) Venous insufficiency Past Surgical History: Procedure Laterality Date COLONOSCOPY ESOPHAGOGASTRODUODENOSCOPY W/ BANDING multiple times HERNIA REPAIR 04/2021 Umbilical WISDOM TOOTH EXTRACTION 2001 Family History Problem Relation Name Age of Onset Diabetes Father Social History Socioeconomic History Marital status: Spouse name: Not on file Number of children: Not on file Years of education: Not on file Highest education level: Not on file Occupational History Not on file Tobacco Use Smoking status: Never Smokeless tobacco: Never Vaping Use Vaping Use: Never used Substance and Sexual Activity Alcohol use: Yes Comment: rare Drug use: Not Currently Sexual activity: Defer Other Topics Concern Not on file Social History Narrative Not on file Allergy Information: I have reviewed the patient's allergies. Patient has no known allergies. Home Medications: Prior to Admission medications Medication Sig Start Date End Date Taking? Authorizing Provider atenoloL (TENORMIN) 25 mg tablet Take 1 tablet (25 mg total) by mouth 1 (one) time each day. Patient taking differently: Take 1 tablet (25 mg total) by mouth 1 (one) time each day in the morning. 04/14/22 10/27/22 Loli Zee MD ertugliflozin (Steglatro) 15 mg tablet Take 15 mg by mouth 1 (one) time each day in the morning. Historical ProviderMD furosemide (LASIX) 20 mg tablet Take 1 tablet (20 mg total) by mouth 1 (one) time each day after lunch. Alonzo ProviderMD hydrOXYzine HCL (ATARAX) 25 mg tablet Take 1 tablet (25 mg total) by mouth 2 (two) times a day if needed for anxiety. 04/14/22 09/13/22 Loli Zee MD metFORMIN (GLUCOPHAGE) 1,000 mg tablet Take 1 tablet (1,000 mg total) by mouth 2 (two) times a day with meals. Hold pm dose 4-4 & am dose 4-5 04/16/22 Loli Zee MD multivit-minerals/folic acid (ONE-A-DAY MEN VITACRAVES ORAL) Take 1 capsule by mouth 1 (one) time each day in the morning. Historical ProviderMD omeprazole (PriLOSEC) [address] capsule Take 1 capsule (40 mg total) by mouth 1 (one) time each day in the morning. Do not crush or chew. Historical ProviderMD potassium chloride (KLOR-CON M20) 20 mEq CR tablet Take 1 tablet (20 mEq total) by mouth 1 (one) time each day in the morning. Alonzo ProviderMD sertraline (ZOLOFT) 50 mg tablet Take 1 tablet (50 mg total) by mouth 1 (one) time each day in the morning. Alonzo ProviderMD SITagliptin (JANUVIA) 100 mg tablet Take 1 tablet (100 mg total) by mouth 1 (one) time each day. Atlunch Historical ProviderMD triamterene-hydroCHLOROthiazide (MAXZIDE-25) 37.5-25 mg per tablet Take 1 tablet by mouth 1 (one) time each day. Hold am DOS 4-5 Historical Provider, Physical Examination Vital Signs: GENERAL: Vitals stable EYES: Conjunctiva clear ENT: Hearing intact, pharynx clear CV: RRR, no murmurs RESP: Clear to auscultation of lungs GI: Bowel sounds heard, soft, non-tender NEURO: Alert, Ox3. No obvious focal deficits noted PSYCH: Mood and affect are appropriate. Laboratory and Additional Data Acquired or Reviewed: [x] Laboratory [x] Radiology [x] Cardiology [x] Medications [x] Transcriptions [] Microbiology [x] Outside Records [] Family * Kenya Andre NP - 02/16/2023 9:00 AM EDT Images from the original note were not included. Kenya Andre NP [facility] Hospitalists History and Physical Same Day Surgery Patient Name:Leon Rider :1980 Admit Date: [id number] Physicians: Zack Vigil MD (PCP) Perpetual Assessment: Leon Rider is a 42 y.o. male who presented for EGD, per the request of Dr. Moses. [facility] has been asked to see the patient for a pre- operative risk assessment. ASSESSMENT AND PLAN Pre-Op Evaluation - The patient is being evaluated for a low risk surgery - The patient has no symptoms - The patient's functional capacity is >4 METS - The patient has the following pertinent Revised Cardiac Risk Index Indicators None - Based on the above, the patient is at low risk to proceed to surgery - The patient may proceed to surgery, with comments/risks as noted above GLASS Cirrhosis Portal Hypertension Esophageal Varices - presents for EGD for surveillance of esophageal varices - denies any hematemesis or melena, no abdominal pain, no ascites - continue home diuretic, BB 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 male with GLASS cirrhosis who presents for EGD for surveillance of esophageal varices. Denies any hematemesis or melena. Denies abd pain. Denies cp/sob. No problems with anesthesia in past. ROS: The following system(s) were reviewed. Pertinent positive and negative findings are noted in the HPI. [x] Const [x] ENT [x] CV [] [] Musc [] Psych [x] Allergy [] Eyes [x] Resp [x] GI [x] Neuro [] Skin [] Endo [x] Heme/Lymph PMH/PSH/SH/FH: Past Medical History: Diagnosis Date Anxiety Cirrhosis (CMS/HCC) Delayed emergence from general anesthesia Depression Diabetes mellitus (CMS/HCC) ED (erectile dysfunction) Esophageal varices (CMS/HCC) Fatty liver GAVE (gastric antral vascular ectasia) GERD (gastroesophageal reflux disease) Hyperlipidemia Hypertension Liver cirrhosis (CMS/HCC) Lymphedema Morbid obesity (CMS/HCC) GLASS (nonalcoholic steatohepatitis) Nephrolithiasis Portal hypertensive gastropathy (CMS/HCC) 12/2022 Moderate Sleep apnea Uses CPAP Thrombocytopenia (CMS/HCC) Venous insufficiency Past Surgical History: Procedure Laterality Date COLONOSCOPY ESOPHAGOGASTRODUODENOSCOPY W/ BANDING multiple times HERNIA REPAIR 04/2021 Umbilical WISDOM TOOTH EXTRACTION 2002 Family History Problem Relation Name Age of Onset Diabetes Father Social History Socioeconomic History Marital status: Spouse name: Not on file Number of children: Not on file Years of education: Not on file Highest education level: Not on file Occupational History Not on file Tobacco Use Smoking status: Never Smokeless tobacco: Never Vaping Use Vaping Use: Never used Substance and Sexual Activity Alcohol use: Yes Comment: rare Drug use: Not Currently Sexual activity: Defer Other Topics Concern Not on file Social History Narrative Not on file Allergy Information: I have reviewed the patient's allergies. Patient has no known allergies. Home Medications: Prior to Admission medications Medication Sig Start Date End Date Taking? Authorizing Provider atenoloL (TENORMIN) 25 mg tablet Take 1 tablet (25 mg total) by mouth 1 (one) time each day. Patient taking differently: Take 1 tablet (25 mg total) by mouth 1 (one) time each day in the morning. 04/14/22 10/27/22 Loli Zee MD ertugliflozin (Steglatro) 15 mg tablet Take 15 mg by mouth 1 (one) time each day in the morning. Historical ProviderMD furosemide (LASIX) 20 mg tablet Take 1 tablet (20 mg total) by mouth 1 (one) time each day after lunch. Historical ProviderMD hydrOXYzine HCL (ATARAX) 25 mg tablet Take 1 tablet (25 mg total) by mouth 2 (two) times a day if needed for anxiety. 04/14/22 09/13/22 Loli Zee MD metFORMIN (GLUCOPHAGE) 1,000 mg tablet Take 1 tablet (1,000 mg total) by mouth 2 (two) times a day with meals. Hold pm dose 4-4 & am dose 4-5 04/16/22 Loli Zee MD multivit-minerals/folic acid (ONE-A-DAY MEN VITACRAVES ORAL) Take 1 capsule by mouth 1 (one) time each day in the morning. Historical ProviderMD omeprazole (PriLOSEC) [address] capsule Take 1 capsule (40 mg total) by mouth 1 (one) time each day in the morning. Do not crush or chew. Historical ProviderMD potassium chloride (KLOR-CON M20) 20 mEq CR tablet Take 1 tablet (20 mEq total) by mouth 1 (one) time each day in the morning. Historical ProviderMD sertraline (ZOLOFT) 50 mg tablet Take 1 tablet (50 mg total) by mouth 1 (one) time each day in the morning. Historical Provider, SITagliptin (JANUVIA) 100 mg tablet Take 1 tablet (100 mg total) by mouth 1 (one) time each day. Atlunch Historical ProviderMD triamterene-hydroCHLOROthiazide (MAXZIDE-25) 37.5-25 mg per tablet Take 1 tablet by mouth 1 (one) time each day. Hold am DOS 4-5 Historical ProviderMD Physical Examination Vital Signs: GENERAL: Vitals stable EYES: Conjunctiva clear ENT: Hearing intact, pharynx clear CV: RRR, no murmurs RESP: Clear to auscultation of lungs GI: Bowel sounds heard, soft, non-tender NEURO: Alert, Ox3. No obvious focal deficits noted PSYCH: Mood and affect are appropriate. Laboratory and Additional Data Acquired or Reviewed: [x] Laboratory [x] Radiology [x] Cardiology [x] Medications [x] Transcriptions [] Microbiology [x] Outside Records [] Family documented in this [facility]04-05-2023 Procedure note* Suki Bales RN - 02/16/2023 9:00 AM EDT Pt and verbalize understanding of d/c instructions. [address]05-2023 Procedure note* Suki Bales RN - 02/16/2023 9:00 AM EDT Pt and verbalize understanding of d/c instructions. documented in this [facility]02-09-2023 History of Present illness Narrative* Cyn Thomas RN - 12/23/2022 10:[address] Mishra, Two bandings applied. Report given to Bianca WAYNE. documented in this [place] [address]-09-2023 Hospital Discharge instructions* Discharge Instructions* Bianca Barbour RN - 12/23/2022 10:27 AM EST Follow up with your Primary Care Physician Dr. Mishra can be reached at [phone]. Endoscopy Discharge Instructions Your Procedure Was: Esophagogastroduodenoscopy (EGD) Follow-up Care Egd findings:Some inflammation was seen. There was NO active bleeding. Two bands were applied today. The varices are getting smaller. Repeat EGD in 4 weeks. Call 911 if you have difficulty breathing or chest pain. 2. Call your doctor or go to the emergency room if you have: A fever greater than 101 or chills Intense or severe pain Heavy bleeding (a few streaks of blood are not unusual) Nausea and vomiting that does not go away Trouble swallowing Increased abdominal bloating Call your doctor with any other questions or problems. 3. Sedation propofol You received sedation for your procedure today and it may take 24 hours to leave your system. You may have some drowsiness, lightheadedness, and may not remember your procedure. You should have an adult stay with you for 24 hours. Do not take any other sedatives or drink alcohol today. Do not drive or operate machinery (power tools, [employer] mowers, etc.), cook, make business decisions or shop online for 24 hours. Although you may feel alert, your reactions may be slower. 4. Diet ONLY soft foods for the rest of the day. Then tomorrow progress your diet as tolerated. 6. Post-Procedure Care If you have a sore throat you may use over the counter throat anesthetic such as Phenol (Cholraseptic). If a red streak or a knot appears around the intravenous site, apply a warm wet cloth to the area 3-4 times for minutes for 24 hours. If this should persist longer than 2-3 days, call your doctor. 7. Activity You may resume normal activity in 24 hours. Do not return to work today. documented in this encounterVeterans Affairs [facility] Healthcare [id number] History and physical note* Paul Mishra V - 12/23/2022 9:30 AM EST Images from the original note were not included. GASTROENTEROLOGY OUTPATIENT PRE-PROCEDURE NOTE Patient Name: Leon Rider MR #: [id number] Indication: Esophageal varices Brief History: Follows with Dr. Oneill, history of GLASS cirrhosis with varices s/p recent banding 10/2022 Past Medical History: Past Medical History: Diagnosis Date Anxiety Cirrhosis (CMS/HCC) Delayed emergence from general anesthesia Depression Diabetes mellitus (CMS/HCC) ED (erectile dysfunction) Esophageal varices (CMS/HCC) Fatty liver GAVE (gastric antral vascular ectasia) GERD (gastroesophageal reflux disease) Hyperlipidemia Hypertension Liver cirrhosis (CMS/HCC) Lymphedema Morbid obesity (CMS/HCC) Nephrolithiasis Portal hypertensive gastropathy (CMS/HCC) Sleep apnea Uses CPAP Thrombocytopenia (CMS/HCC) Venous insufficiency Past Surgical History: Procedure Laterality Date COLONOSCOPY ESOPHAGOGASTRODUODENOSCOPY W/ BANDING multiple times HERNIA REPAIR 04/2021 Umbilical WISDOM TOOTH EXTRACTION 2002 Family History Problem Relation Name Age of Onset Diabetes Father Social History Socioeconomic History Marital status: Spouse name: Not on file Number of children: Not on file Years of education: Not on file Highest education level: Not on file Occupational History Not on file Tobacco Use Smoking status: Never Smokeless tobacco: Never Vaping Use Vaping Use: Never used Substance and Sexual Activity Alcohol use: Yes Comment: rare Drug use: Not Currently Sexual activity: Defer Other Topics Concern Not on file Social History Narrative Not on file Allergies: Patient has no known allergies. Home Medications: Home Medications atenoloL (TENORMIN) 25 mg tablet Take 1 tablet (25 mg total) by mouth 1 (one) time each day. ertugliflozin (Steglatro) 15 mg tablet Take 15 mg by mouth 1 (one) time each day in the morning. furosemide (LASIX) 20 mg tablet Take 1 tablet (20 mg total) by mouth 1 (one) time each day after lunch. metFORMIN (GLUCOPHAGE) 1,000 mg tablet Take 1 tablet (1,000 mg total) by mouth 2 (two) times a day with meals. Hold for [address] scan multivit-minerals/folic acid (ONE-A-DAY MEN VITACRAVES ORAL) Take 1 capsule by mouth 1 (one) time each day in the morning. omeprazole (PriLOSEC) [address] capsule Take 1 capsule (40 mg total) by mouth 1 (one) time each day in the morning. Do not crush or chew. potassium chloride (KLOR-CON M20) 20 mEq CR tablet Take 1 tablet (20 mEq total) by mouth 1 (one) time each day in the morning. sertraline (ZOLOFT) 50 mg tablet Take 1 tablet (50 mg total) by mouth 1 (one) time each day in the morning. SITagliptin (JANUVIA) 100 mg tablet Take 1 tablet (100 mg total) by mouth 1 (one) time each day. Atlunch triamterene-hydroCHLOROthiazide (MAXZIDE-25) 37.5-25 mg per tablet Take 1 tablet by mouth 1 (one) time each day. At lunch hydrOXYzine HCL (ATARAX) 25 mg tablet Take 1 tablet (25 mg total) by mouth 2 (two) times a day if needed for anxiety. Review of Systems: The following system(s) were reviewed: GI system reviewed. All other systems were reviewed and are within normal limits. Physical Examination: Visit Vitals BP 118/59 Pulse 82 Temp 37.3 C (99.1 F) (Temporal) Resp 22 Ht 1.803 m (71) Wt (!) 174 kg (383 lb 2.6 oz) SpO2 92% BMI 53.44 kg/m Smoking Status Never BSA 2.78 m General: NAD; Alert and oriented x3 Lungs: Clear without rales, rhonchi or wheezes; no increased respiratory effort Cardiovascular: RRR; no edema Abdomen: Positive bowel sounds; soft; non tender Skin: No rashes; normal turgor Plan: 1) Will proceed with endoscopic procedure as scheduled. Paul Mishra [employer] Phone: [phone] 171-952802-09-2023 History and physical note* Paul Mishra V - 12/23/2022 9:30 AM EST Images from the original note were not included. GASTROENTEROLOGY OUTPATIENT PRE-PROCEDURE NOTE Patient Name: Leon Rider MR #: [id number] Indication: Esophageal varices Brief History: Follows with Dr. Oneill, history of GLASS cirrhosis with varices s/p recent banding 10/2022 Past Medical History: Past Medical History: Diagnosis Date Anxiety Cirrhosis (CMS/HCC) Delayed emergence from general anesthesia Depression Diabetes mellitus (CMS/HCC) ED (erectile dysfunction) Esophageal varices (CMS/HCC) Fatty liver GAVE (gastric antral vascular ectasia) GERD (gastroesophageal reflux disease) Hyperlipidemia Hypertension Liver cirrhosis (CMS/HCC) Lymphedema Morbid obesity (CMS/HCC) Nephrolithiasis Portal hypertensive gastropathy (CMS/HCC) Sleep apnea Uses CPAP Thrombocytopenia (CMS/HCC) Venous insufficiency Past Surgical History: Procedure Laterality Date COLONOSCOPY ESOPHAGOGASTRODUODENOSCOPY W/ BANDING multiple times HERNIA REPAIR 04/2021 Umbilical WISDOM TOOTH EXTRACTION 2001 Family History Problem Relation Name Age of Onset Diabetes Father Social History Socioeconomic History Marital status: Spouse name: Not on file Number of children: Not on file Years of education: Not on file Highest education level: Not on file Occupational History Not on file Tobacco Use Smoking status: Never Smokeless tobacco: Never Vaping Use Vaping Use: Never used Substance and Sexual Activity Alcohol use: Yes Comment: rare Drug use: Not Currently Sexual activity: Defer Other Topics Concern Not on file Social History Narrative Not on file Allergies: Patient has no known allergies. Home Medications: Home Medications atenoloL (TENORMIN) 25 mg tablet Take 1 tablet (25 mg total) by mouth 1 (one) time each day. ertugliflozin (Steglatro) 15 mg tablet Take 15 mg by mouth 1 (one) time each day in the morning. furosemide (LASIX) 20 mg tablet Take 1 tablet (20 mg total) by mouth 1 (one) time each day after lunch. metFORMIN (GLUCOPHAGE) 1,000 mg tablet Take 1 tablet (1,000 mg total) by mouth 2 (two) times a day with meals. Hold for [address] scan multivit-minerals/folic acid (ONE-A-DAY MEN VITACRAVES ORAL) Take 1 capsule by mouth 1 (one) time each day in the morning. omeprazole (PriLOSEC) [address] capsule Take 1 capsule (40 mg total) by mouth 1 (one) time each day in the morning. Do not crush or chew. potassium chloride (KLOR-CON M20) 20 mEq CR tablet Take 1 tablet (20 mEq total) by mouth 1 (one) time each day in the morning. sertraline (ZOLOFT) 50 mg tablet Take 1 tablet (50 mg total) by mouth 1 (one) time each day in the morning. SITagliptin (JANUVIA) 100 mg tablet Take 1 tablet (100 mg total) by mouth 1 (one) time each day. Atlunch triamterene-hydroCHLOROthiazide (MAXZIDE-25) 37.5-25 mg per tablet Take 1 tablet by mouth 1 (one) time each day. At lunch hydrOXYzine HCL (ATARAX) 25 mg tablet Take 1 tablet (25 mg total) by mouth 2 (two) times a day if needed for anxiety. Review of Systems: The following system(s) were reviewed: GI system reviewed. All other systems were reviewed and are within normal limits. Physical Examination: Visit Vitals BP 118/59 Pulse 82 Temp 37.3 C (99.1 F) (Temporal) Resp 22 Ht 1.803 m (71) Wt (!) 174 kg (383 lb 2.6 oz) SpO2 92% BMI 53.44 kg/m Smoking Status Never BSA 2.78 m General: NAD; Alert and oriented x3 Lungs: Clear without rales, rhonchi or wheezes; no increased respiratory effort Cardiovascular: RRR; no edema Abdomen: Positive bowel sounds; soft; non tender Skin: No rashes; normal turgor Plan: 1) Will proceed with endoscopic procedure as scheduled. Paul Mishra documented in this encounterVeterans Affairs [facility] [id number] Procedure note* Hannah Morales RN - 12/23/2022 9:30 AM EST Patient reports that he would like to come to the appointment of 830 arrival maybe a few minutes late due to has PT appointment prior. Medications as instructed with sips of water on the morning of surgery. Please ensure you have a limo driver, age 18 or greater, and someone with your for 24 hours after anesthesia. No big decisions day after surgery due to anesthesia Master In Chancery: Zelda- Accept Emergency blood transfusion: Yes [facility] [id number] Procedure note* Hannah Morales RN - 12/23/2022 9:30 AM EST Patient reports that he would like to come to the appointment of 830 arrival maybe a few minutes late due to has PT appointment prior. Medications as instructed with sips of water on the morning of surgery. Please ensure you have a limo driver, age 18 or greater, and someone with your for 24 hours after anesthesia. No big decisions day after surgery due to anesthesia Master In Chancery: Zelda- Accept Emergency blood transfusion: Yes documented in this encounterVeterans Affairs [facility] Healthcare [id number] History and physical note* Susana Leblanc, DO - 10/27/2022 3:45 PM EST Images from the original note were not included. GASTROENTEROLOGY OUTPATIENT PRE-PROCEDURE NOTE Patient Name: Leon Rider MR #: [id number] Indication: EV banding Brief History: 42M GLASS cirrhosis c/b EVs here for serial banding. Past Medical History: Past Medical History: Diagnosis Date Anxiety Cirrhosis (CMS/HCC) Delayed emergence from general anesthesia Depression Diabetes mellitus (CMS/HCC) Fatty liver GERD (gastroesophageal reflux disease) Hypertension Liver cirrhosis (CMS/HCC) Sleep apnea Uses CPAP Past Surgical History: Procedure Laterality Date HERNIA REPAIR 04/2021 Umbilical WISDOM TOOTH EXTRACTION 2002 Family History Problem Relation Name Age of Onset Diabetes Father Social History Socioeconomic History Marital status: Spouse name: Not on file Number of children: Not on file Years of education: Not on file Highest education level: Not on file Occupational History Not on file Tobacco Use Smoking status: Never Smokeless tobacco: Never Vaping Use Vaping Use: Never used Substance and Sexual Activity Alcohol use: Yes Comment: rare Drug use: Not Currently Sexual activity: Defer Other Topics Concern Not on file Social History Narrative Not on file Allergies: Patient has no known allergies. Home Medications: Home Medications atenoloL (TENORMIN) 25 mg tablet Take 1 tablet (25 mg total) by mouth 1 (one) time each day. ertugliflozin (Steglatro) 15 mg tablet Take 15 mg by mouth 1 (one) time each day in the morning. furosemide (LASIX) 20 mg tablet Take 1 tablet (20 mg total) by mouth 1 (one) time each day after lunch. metFORMIN (GLUCOPHAGE) 1,000 mg tablet Take 1 tablet (1,000 mg total) by mouth 2 (two) times a day with meals. Hold for [address] scan multivit-minerals/folic acid (ONE-A-DAY MEN VITACRAVES ORAL) Take 1 capsule by mouth 1 (one) time each day in the morning. omeprazole (PriLOSEC) [address] capsule Take 1 capsule (40 mg total) by mouth 1 (one) time each day in the morning. Do not crush or chew. potassium chloride (KLOR-CON M20) 20 mEq CR tablet Take 1 tablet (20 mEq total) by mouth 1 (one) time each day in the morning. sertraline (ZOLOFT) 50 mg tablet Take 1 tablet (50 mg total) by mouth 1 (one) time each day in the morning. SITagliptin (JANUVIA) 100 mg tablet Take 100 mg by mouth 1 (one) time each day. At lunch triamterene-hydroCHLOROthiazide (MAXZIDE-25) 37.5-25 mg per tablet Take 1 tablet by mouth 1 (one) time each day. At lunch hydrOXYzine HCL (ATARAX) 25 mg tablet Take 1 tablet (25 mg total) by mouth 2 (two) times a day if needed for anxiety. promethazine (PHENERGAN) 25 mg tablet Take 25 mg by mouth every 6 (six) hours if needed for nausea or vomiting. Review of Systems: The following system(s) were reviewed: GI system reviewed. All other systems were reviewed and are within normal limits. Physical Examination: Visit Vitals BP 121/68 Pulse 72 Temp 36.9 C (98.5 F) (Temporal) Resp 14 Ht 1.803 m (71) Wt (!) 172 kg (380 lb) SpO2 98% BMI 53.00 kg/m Smoking Status Never BSA 2.77 m General: NAD; Alert and oriented x3 Lungs: Clear without rales, rhonchi or wheezes; no increased respiratory effort Cardiovascular: RRR; no edema Abdomen: Positive bowel sounds; soft; non tender Skin: No rashes; normal turgor Plan: 1) Will proceed with endoscopic procedure as scheduled. Susana Leblanc DO [employer] Phone: [phone] 300-772912-14-2022 History and physical note* Susana Leblanc DO - 10/27/2022 3:45 PM EST Images from the original note were not included. GASTROENTEROLOGY OUTPATIENT PRE-PROCEDURE NOTE Patient Name: Leon Rider MR #: [id number] Indication: EV banding Brief History: 42M GLASS cirrhosis c/b EVs here for serial banding. Past Medical History: Past Medical History: Diagnosis Date Anxiety Cirrhosis (CMS/HCC) Delayed emergence from general anesthesia Depression Diabetes mellitus (CMS/HCC) Fatty liver GERD (gastroesophageal reflux disease) Hypertension Liver cirrhosis (CMS/HCC) Sleep apnea Uses CPAP Past Surgical History: Procedure Laterality Date HERNIA REPAIR 04/2021 Umbilical WISDOM TOOTH EXTRACTION 2002 Family History Problem Relation Name Age of Onset Diabetes Father Social History Socioeconomic History Marital status: Spouse name: Not on file Number of children: Not on file Years of education: Not on file Highest education level: Not on file Occupational History Not on file Tobacco Use Smoking status: Never Smokeless tobacco: Never Vaping Use Vaping Use: Never used Substance and Sexual Activity Alcohol use: Yes Comment: rare Drug use: Not Currently Sexual activity: Defer Other Topics Concern Not on file Social History Narrative Not on file Allergies: Patient has no known allergies. Home Medications: Home Medications atenoloL (TENORMIN) 25 mg tablet Take 1 tablet (25 mg total) by mouth 1 (one) time each day. ertugliflozin (Steglatro) 15 mg tablet Take 15 mg by mouth 1 (one) time each day in the morning. furosemide (LASIX) 20 mg tablet Take 1 tablet (20 mg total) by mouth 1 (one) time each day after lunch. metFORMIN (GLUCOPHAGE) 1,000 mg tablet Take 1 tablet (1,000 mg total) by mouth 2 (two) times a day with meals. Hold for [address] scan multivit-minerals/folic acid (ONE-A-DAY MEN VITACRAVES ORAL) Take 1 capsule by mouth 1 (one) time each day in the morning. omeprazole (PriLOSEC) [address] capsule Take 1 capsule (40 mg total) by mouth 1 (one) time each day in the morning. Do not crush or chew. potassium chloride (KLOR-CON M20) 20 mEq CR tablet Take 1 tablet (20 mEq total) by mouth 1 (one) time each day in the morning. sertraline (ZOLOFT) 50 mg tablet Take 1 tablet (50 mg total) by mouth 1 (one) time each day in the morning. SITagliptin (JANUVIA) 100 mg tablet Take 100 mg by mouth 1 (one) time each day. At lunch triamterene-hydroCHLOROthiazide (MAXZIDE-25) 37.5-25 mg per tablet Take 1 tablet by mouth 1 (one) time each day. At lunch hydrOXYzine HCL (ATARAX) 25 mg tablet Take 1 tablet (25 mg total) by mouth 2 (two) times a day if needed for anxiety. promethazine (PHENERGAN) 25 mg tablet Take 25 mg by mouth every 6 (six) hours if needed for nausea or vomiting. Review of Systems: The following system(s) were reviewed: GI system reviewed. All other systems were reviewed and are within normal limits. Physical Examination: Visit Vitals BP 121/68 Pulse 72 Temp 36.9 C (98.5 F) (Temporal) Resp 14 Ht 1.803 m (71) Wt (!) 172 kg (380 lb) SpO2 98% BMI 53.00 kg/m Smoking Status Never BSA 2.77 m General: NAD; Alert and oriented x3 Lungs: Clear without rales, rhonchi or wheezes; no increased respiratory effort Cardiovascular: RRR; no edema Abdomen: Positive bowel sounds; soft; non tender Skin: No rashes; normal turgor Plan: 1) Will proceed with endoscopic procedure as scheduled. Susana Leblanc DO documented in this encounterGeorge [place]ille [address]-14-2022 Procedure note* Apolonia Dave RN - 10/27/2022 3:[address] Leblanc in to see pt and to discuss findings of procedure . This nurse reviewed d/c instructions also . Both voiced understanding [address]14-2022 Procedure note* Apolonia Dave RN - 10/27/2022 3:[address] Leblanc in to see pt and to discuss findings of procedure . This nurse reviewed d/c instructions also . Both voiced understanding documented in this encounterGeorge Ville [address]-14-2022 Hospital course Narrative* Ansley Ballard RN - 10/27/2022 3:30 PM EST Pre-Surgery Instructions: Medication Instructions atenoloL (TENORMIN) 25 mg tablet Take morning of surgery with sip of water, no other fluids ertugliflozin (Steglatro) 15 mg tablet Continue taking until night before surgery furosemide (LASIX) 20 mg tablet Continue taking until night before surgery hydrOXYzine HCL (ATARAX) 25 mg tablet Continue taking until night before surgery metFORMIN (GLUCOPHAGE) 1,000 mg tablet Continue taking until night before surgery multivit-minerals/folic acid (ONE-A-DAY MEN VITACRAVES ORAL) Continue taking until night before surgery omeprazole (PriLOSEC) [address] capsule Take morning of surgery with sip of water, no other fluids potassium chloride (KLOR-CON M20) 20 mEq CR tablet Continue taking until night before surgery promethazine (PHENERGAN) 25 mg tablet Continue taking until night before surgery sertraline (ZOLOFT) 50 mg tablet Take morning of surgery with sip of water, no other fluids SITagliptin (JANUVIA) 100 mg tablet Continue taking until night before surgery triamterene-hydroCHLOROthiazide (MAXZIDE-25) 37.5-25 mg per tablet Continue taking until night before surgery Procedure is tomorrow @ 1530, arrival 1430 Additional Instructions: * Nothing to eat/drink after midnight, unless you have been given other instructions. (includes no gum/mints/candy). Follow bowel prep as ordered per MD * On the morning of your procedure , take only the medications you have been instructed to with a small sip of water. * You may brush your teeth and rinse your mouth the morning of surgery careful not to swallow any water. * Deodorant may be applied but do not apply any makeup, perfume, powders, lotions, or creams. * Wear loose, comfortable clothing and shoes. Bring a case to safely protect your glasses/hearing aids/dentures if needed. * Please remove all jewelry (rings/earrings/body piercings) and leave at home. * Bring any medical equipment that you use daily such as: cane, walker, or CPAP machine. * You must have a limo driver to take you home Please be sure to bring the following on the day of procedure: limo driver's license or photo ID , and current insurance cards. You may also bring copies of your Living Will or Healthcare Power of Geological Science Teacher if available. documented in this encounterVeter[facility] [id number] Hospital course Narrative* Loli Zee MD - 04/14/2022 5:26 PM EDT Images from the original note were not included. Loli Zee MD [facility] Hospitalists DISCHARGE SUMMARY Leon Rider . Admit Date: 04/13/2022 Discharge Date: 04/14/2022 Primary Care Physician: Zack Vigil MD Clinical Summary Leon Rider is a 41 y.o. male admitted to the hospital on 04/13/2022 for SOB Discharge Diagnosis and Associated Hospital Course Shortness of breath -Patient presented to the hospital from his work after he started having some shortness of breath, thought he was having a panic attack -However on further questioning he does endorse some dyspnea on exertion -First troponin of 16, second troponin slightly elevated at 21 -CTA was not the very best study but without any evidence of acute PE -EKG without any acute ischemic changes -Admited patient to telemetry, observation bed -Patient had a stress test in 2019 which was negative -Clinically I doubt we are dealing with ACS, however he does have some dyspnea on exertion lately -Continue to monitor on telemetry overnight -TTE shows preserved EF without any regional wall motion abnormalities, he can be discharged home and potentially have a stress test if needed as outpatient. Asymptomatic now, on room air -Obesity hypoventilation syndrome could also be contributing, consider sleep study as outpatient -Also concerned about possible anxiety and panic attack causing symptoms-agree trying something mild for symptoms, will add as needed hydroxyzine. Refused any need for psych assist at this time, he follows with behavioral therapist outpatient Cirrhosis -Reports of having fatty liver for years which progressed to cirrhosis -Used to follow-up with Dr. Dandy Healy from GI, he is retiring so the patient will need to follow-up with a new gemologist/footwear sales coordinator -No acute issues, recommended outpatient follow-up -Continue home diuretics. Added beta-apolinar. Given instruction to f/up w GI to get EGD given concern for varices based on CT. Thrombocytopenia -In the setting of underlying history of cirrhosis/portal hypertension leading to some splenic sequestration -Platelet count of 71 k, monitor, will need outpatient follow-up Diabetes mellitus type 2, controlled without complication -Blood sugar stable, hold metformin for [address], resume rest home mds Essential hypertension -Blood pressure stable although higher side on current regimen, added b-apolinar as below, unclear why not on ADRIANA-I - defer to PCP outpt Venous insufficiency -Chronic venous insufficiency over the lower extremities -Adriana wraps will help, patient is on a diuretic regimen at home -Outpatient referral to vascular surgery for possible venous ablations might not be a bad idea-defer to PCP outpatient Morbid obesity -With a BMI of 51 -Weight loss recommended Comments/Problems to be Addressed After Discharge -f/up w PCP in 1-2 weeks, need to schedule outpt stress test Procedures: None Code Status: Full Allergies: Patient has no known allergies. Disposition: Home Condition at Discharge: Good Discharge Medication Recommendations Your medication list START taking these medications Instructions Last Dose Given Next Dose Due atenoloL 25 mg tablet Commonly known as: TENORMIN Take 1 tablet (25 mg total) by mouth 1 (one) time each day. hydrOXYzine HCL 25 mg tablet Commonly known as: ATARAX Take 1 tablet (25 mg total) by mouth 2 (two) times a day if needed for anxiety. CHANGE how you take these medications Instructions Last Dose Given Next Dose Due metFORMIN 1,000 mg tablet Commonly known as: GLUCOPHAGE Start taking on: April 16, 2022 What changed: additional instructions These instructions start on April 16, 2022. If you are unsure what to do until then, ask your doctor or other care provider. Take 1 tablet (1,000 mg total) by mouth 2 (two) times a day with meals. Hold for [address] scan CONTINUE taking these medications Instructions Last Dose Given Next Dose Due furosemide 20 mg tablet Commonly known as: LASIX Take 20 mg by mouth 1 (one) time each day. At lunch omeprazole [address] capsule Commonly known as: PriLOSEC Take 40 mg by mouth 1 (one) time each day. Do not crush or chew. ONE-A-DAY MEN VITACRAVES ORAL Take 1 capsule by mouth 1 (one) time each day. potassium chloride 20 mEq CR tablet Commonly known as: KLOR-CON M20 Take 20 mEq by mouth 1 (one) time each day. At lunch Tablet may be swallowed whole (do not crush/chew/suck on) OR broken in half and each half swallowed separately OR dissolved (whole tablet) in ~4 ounces of water (allow ~2 minutes to dissolve, stir well and administer immediately). promethazine 25 mg tablet Commonly known as: PHENERGAN Take 25 mg by mouth every 6 (six) hours if needed for nausea or vomiting. SITagliptin 100 mg tablet Commonly known as: JANUVIA Take 100 mg by mouth 1 (one) time each day. At lunch Steglatro 15 mg tablet Generic drug: ertugliflozin Take 15 mg by mouth 1 (one) time each day. triamterene-hydroCHLOROthiazide 37.5-25 mg per tablet Commonly known as: MAXZIDE-25 Take 1 tablet by mouth 1 (one) time each day. At lunch Medication Instructions: -- Started atenolol for better BP control and protective effect on esophageal varices from cirrhosis -- You need to f/up with GI doctor JEFFREY for cirrhosis, may consider Endoscopy to r/o esophageal varices and low platelet counts -- Do not take OTC-NSAIDs, ibuprofen, aleve, naprosyn etc Where to Get Your Medications These medications were sent to [facility] [id number] - [place], [place] - [address] [facility] [address] [address] atenoloL 25 mg tablet hydrOXYzine HCL 25 mg tablet Leon Rider was seen and examined on the day of discharge. See documentation on discharge day for pertinent history and exam findings. I reviewed the discharge plans with pt at the bedside. This included details regarding meds, f/up care. Time spent on discharge: > 35 min * Loli Zee MD - 04/14/2022 5:24 PM EDT -- Started atenolol for better BP control and protective effect on esophageal varices from cirrhosis -- You need to f/up with GI doctor JEFFREY for cirrhosis, may consider Endoscopy to r/o esophageal varices and low platelet counts -- Do not take OTC-NSAIDs, ibuprofen, aleve, naprosyn etc documented in this encounterVeterans Affairs Pittsburgh Healthcare [id number] History of Present illness Narrative* Loli Zee MD - 04/14/2022 2:35 PM EDT Images from the original note were not included. Loli Zee MD [facility] Hospitalists DAILY PROGRESS NOTE Patient Name: Leon Rider PCP: Zack Vigil MD Perpetual Assessment: Leon Rider is a 41 y.o. male who presented from home on 04/13/2022 with dyspnea sensation. Assessment and Plan Shortness of breath -Patient presented to the hospital from his work after he started having some shortness of breath, thought he was having a panic attack -However on further questioning he does endorse some dyspnea on exertion -First troponin of 16, second troponin slightly elevated at 21 -CTA was not the very best study but without any evidence of acute PE -EKG without any acute ischemic changes -Admited patient to telemetry, observation bed -Patient had a stress test in 2019 which was negative -Clinically I doubt we are dealing with ACS, however he does have some dyspnea on exertion lately -Continue to monitor on telemetry overnight -W pending TTE in the a.m., if that shows preserved EF without any regional wall motion abnormalities he can be discharged home and potentially have a stress test if needed as outpatient -Obesity hypoventilation syndrome could also be contributing, consider sleep study as outpatient -Also concerned about possible anxiety and panic attack causing symptoms-agree trying something mild for symptoms, will add as needed hydroxyzine. Refused any need for psych assist at this time, he follows with behavioral therapist outpatient Cirrhosis -Reports of having fatty liver for years which progressed to cirrhosis -Used to follow-up with Dr. Dandy Healy from GI, he is retiring so the patient will need to follow-up with a new gemologist/footwear sales coordinator -No acute issues, recommended outpatient follow-up -Continue home diuretics. May consider nonselective beta-apolinar Thrombocytopenia -In the setting of underlying history of cirrhosis/portal hypertension leading to some splenic sequestration -Platelet count of 71 today, monitor, will need outpatient follow-up Diabetes mellitus type 2, controlled without complication -Blood sugar stable, hold metformin, consider SSI if needed Essential hypertension -Blood pressure stable on current regimen, continue monitor Venous insufficiency -Chronic venous insufficiency over the lower extremities -Adriana wraps will help, patient is on a diuretic regimen at home -Outpatient referral to vascular surgery for possible venous ablations might not be a bad idea-defer to PCP outpatient Morbid obesity -With a BMI of 51 -Weight loss recommended Code Status: Full DVT Prophylaxis SCD/TEDS Expected Date of Discharge: 04/14 OR 04/15 Disposition and Comments Discharge today if echo unremarkable CC / Reason for follow up: Shortness of breath SUBJECTIVE: Chart and data reviewed at length, patient seen and examined. Patient awake, alert, well-oriented, resting comfortably. Denies any chest pain or dyspnea at this time. Denies any abdominalcomplaint. Patient does reported some issues with anxiety and stress and concerned about panic attack causing his symptoms, although denies any major depression or any need for psych consult at this time as discussed with patient, denies any suicidal ideation. ROS: < >> The following system(s) were reviewed. Pertinent positive and negative findings are noted in the HPI. [x] Const [x] ENT [x] CV [x] [x] Musc [x] Psych [x] Allergy [x] Eyes [x] Resp [x] GI [x] Neuro [x] Skin [x] Endo [x] Heme/Lymph PHYSICAL EXAMINATION: << >>>>> Temp: 36.9 C (98.4 F) (04/14 1100) Heart Rate: 89 (04/14 1100) Resp: 18 (04/14 0300) BP: 147/76 (04/14 1407) GENERAL: NAD. Morbidly obese EYES: Conjunctiva and sclera clear. ENT: Hearing intact. CV: Reg, no murmur. No JVD. Nonpitting edema. RESP: Clear, no rales, rhonchi, wheezes. No increase in respiratory effort. GI: Non-distended, +BS, soft, non-tender. SKIN: Changes of venous stasis on both lower extremity with edema NEURO: Alert, Ox3. Grossly normal motor and sensory exam. No focal deficits. PSYCH: Mood and affect are appropriate. Cooperative. Normal judgment and insight. I/O s last 3 shifts: No intake/output data recorded. Reviewed 04/14/22 2:35 PM EDT: [x] Laboratory [x] Radiology [x] Cardiology [x] Medications [x] Transcriptions [x] Microbiology [x] Outside Records [] Family Time Spent/CCM Time: > 35 min-seen twice since this morning * Jodie Pryor RN - 04/14/2022 12:45 PM EDT 04/14/22 1245 Discharge Planning Living Arrangements Spouse/significant other Support Systems Spouse/significant other Assistance Needed Independent Type of Residence Private residence Home Services No Patient expects to be discharged to: Home Does the patient need discharge transport arranged? No Initial Transition Plan Initial Transition Plan Home Back up Transition Plan Back up Transition plan Home Health Care Beater Boss Note Patient mentation at time of initial Assessment: A&Ox4. Patient Directives: Has no advance directives and declining information. Patient Next of Kin / Surrogate Decision Maker is his , Zelda Rider. Insurance provider confirmed from chart: Confirmed and correct. PCP confirmed from chart: Confirmed and correct. Living Situation: Patient resides: 2-story house w/basement. Patient with following DME prior to this admission: CPAP through [facility], no additional DME. Steps to enter home: 2 NOAM w/o railing. Steps within home: Full flights to each the 2nd floor and basement, both with railings. Home Health Services: Never required. Patient lives: with his . Address confirmed from chart: Confirmed and correct. Support: Patient has: Some Support: Pt independent, available to provide emotional support as needed. Baseline: Patient's baseline at time of admission: Independent, drives, works full-time. Assessments needed for discharge: Patient will not require therapy assessments and updates Anticipated needs at discharge: Transport: Family to transport Discharge destination: Home, Independent . [facility] [address]confirmed. Patient is able to afford medications. Admitted: 04/13/2022 NATHAN: 04/14-12/2021. Barriers to discharge: TTE and Cardio consult. IMM?: No. RapidCOVID for D/C?: No. Transport: . CM spent at least 10 minutes on initial intake assessment. Patient: Leon Rider AGE: 41 y.o. Sex: male Admission Date: 04/13/2022 Attending: Loli Zee MD Admission Diagoses: SOB (shortness of breath) [R06.02] Dyspnea, unspecified type [R06.00] [address] [place] [address] confirmed from facesheet/demographics. CODE STATUS at time of assessment: Full Code - Confirmed * Rome Moulton RN - 04/14/2022 8:38 AM EDT MDR summary for patient Multi-Disciplinary Rounding was completed on this patient with the following participants: [x]Patient []Family/Friend/Caregiver [x]Physician [x]Charge Nurse [x]Primary Nurse [x]Pharmacy [x]Case Management []Social Work []Physical Therapy []M2B Physician Reason for admission: SOB Patient still requiring: [x]Further workup [x]Monitoring []IV Antibiotics []Pain control []Lab/tests []Therapy Evaluation []Diet toleration []Consult: []Medically Clear [x]Other: TTE scheduled 04/14 Estimated Date of discharge: [x]Today pending workup []Tomorrow []Early Discharge Rounds []Placed in Early d/c epic list []1-2 days []2-3 days []3+ days Nursing Any overnight events? []Yes: [x]No Any Nursing Concerns/Needs? []Yes: [x]No Does the patient have any active LDAs? []Yes []Central Line []Remove []Keep []Keep at D/C [][place] []Remove []Keep []Keep at D/C []Drain []Remove []Keep []Keep at D/C [x]No Case Management Is patient being followed by CM? []Yes [x]Pending eval []Social Work following Patient admitted from: [x]Home []Lives alone []Lives with Support []Home health care []Inpatient Rehab []penitentiary facility []terminal makeup operator care []Other: Discharge Destination: [x]Home with []No Needs []Home health care []Inpatient Rehab []penitentiary facility []prison care []Pending evaluation []TBD []Other: Facility info []List Provided []Referrals sent []Awaiting acceptance []Awaiting bed availability []Precert []No Precert []Covid Swab []Covid Booster []Covid positive waiting period: Patient will be transported home by: []Self []Family/Friend []Cab []Other []Transport and will require []O2 []Drips []Other needs: [x]TBD Does the patient need any new or replacement DME? []Yes: []No Does the patient need any services arranged? []Yes []Dialysis []Infusion []Wound care []Outpatient rehab []Other: []No [x]TBD Pharmacy Medication changes/plans: []Yes Medication: []No Has home pharmacy been verified: []Yes []No Meds to Beds Candidate: []Yes []No Medication concerns for discharge: []Yes Medication: []No * Ethan Mei RN - 04/14/2022 8:22 AM EDT Goals: Patient will get out of bed and into chair for all meals. Identify possible barriers to meeting goals/advancing plan of care: Stability of the patient: Moderately Stable - Low risk of patient condition declining or worsening End of Shift Summary: Problem: Respiratory: Goal: Will achieve and/or maintain a regular respiratory rate Outcome: Progressing Problem: Cognitive: Goal: Ability to maintain a clear airway will improve Outcome: Progressing Problem: Breathing Goal: Respiratory rate and effort will be within normal limits for the patient Outcome: Progressing * Jaimie Jensen RN - 04/14/2022 5:23 AM EDT Problem: Respiratory: Goal: Will achieve and/or maintain a regular respiratory rate 04/14/2022 0522 by Jaimie Jensen RN Outcome: Progressing Problem: Breathing Goal: Respiratory rate and effort will be within normal limits for the patient Outcome: Progressing Goals: Identify possible barriers to meeting goals/advancing plan of care: Stability of the patient: Moderately Stable - Low risk of patient condition declining or worsening End of Shift Summary: pt stable at this time, not experiencing any shortness of breath. Chris continue to monitor. * CHARLES Maciel - 04/13/2022 12:26 PM EDT HPI Chief Complaint Patient presents with Panic Attack Per EMS report patient had anxiety attack at work; Patient states that symptoms resolved on arrivalto ED. The patient is a 41 year old male with PMH HTN, DM, hyperlipidemia, venous insufficiency, GERD, sleep apnea, hepatic cirrhosis who presents for evaluation of difficulty breathing. Patient notes that around 11 AM, he had a meeting with HR at his work, and this is very stressful, and he felt difficulty breathing that he notes was a panic attack that lasted about 30 seconds to 1 minute. He notes that his work had contacted EMS and he was transported to the hospital. He notes that he has felt fine since that time. Denies any pain during the episode or since. States he woke up feeling fine todayas well, other than the stress. States that his stress is stemming from a recent kidney stone that he had to miss a few weeks of work, and now there are issues with HR. No known hx CAD or DVT/PE. Reports chronic bilateral leg swelling, denies any new swelling or leg pain. Denies fever, cough, hemoptysis, nausea, vomiting, abdominal pain, or further complants. Disney Coma Scale Score: 15 Patient History Past Medical History: Diagnosis Date Diabetes mellitus (CMS/HCC) Hypertension Liver cirrhosis (CMS/HCC) Past Surgical History: Procedure Laterality Date HERNIA REPAIR No family history on file. Social History Tobacco Use Smoking status: Never Smoker Smokeless tobacco: Never Used Substance Use Topics Alcohol use: Not Currently Drug use: Not Currently Review of Systems Review of Systems All other systems reviewed and are negative. Physical Exam ED Triage Vitals [04/13/22 1232] Temp Heart Rate Resp BP 37 C (98.6 F) 76 18 (!) 158/111 SpO2 Temp Source Heart Rate Source Patient Position 97 % Oral -- -- BP Location FiO2 (%) -- -- Physical Exam Vitals reviewed. CONSTITUTIONAL: Well-appearing. Nondiaphoretic. No distress. HEAD: Normocephalic, atraumatic. EYES: No conjunctival injection, no icterus. EARS: External ears appear normal. NOSE: Nose appears normal. NECK: Supple. RESPIRATORY: Normal chest excursion with respiration, no stridor. No rales, rhonchi or wheezes. CARDIOVASCULAR: Regular rate and rhythm. No murmur. GASTROINTESTINAL: Abdomen obese, non-distended. NEUROLOGICAL: Awake, alert and oriented. Neurologically nonfocal. PSYCHOLOGICAL: The patient's mood and manner are appropriate. INTEGUMENTARY: No skin discoloration or rash noted. MUSCULOSKELETAL: Moving all 4 extremities without difficulty. Lower extremities are symmetric, withsome edema. No unilateral edema. No calf tenderness. ED Course & MDM Clinical Impressions as of 04/13/22 1752 Dyspnea, unspecified type MDM I saw and evaluated the patient. I have reviewed the chief complaint, triage note, past medical/surgical, family, and social history. I have discussed the case with the attending physician of record and he/she agrees with my assessment and plan. Supervising Physician: Dr Susana Valdes 41-year-old male evaluated for dyspnea. Patient was initially attributing this to a panic attack. Patient has had several episodes over the past several months that he is attributing to a panic attack. No history of panic attacks prior to the past several months. Patient notes 1 of these episodes occurred on a plane, noting that he traveled [place] hospital last month, about a 2 and [address] flight [address]. Patient notes that several occasions, it is happening while he is walking his dogs.This is the only exertional component described. Patient's episode today was while he was stressed at work. EKG was obtained, interpreted by attending/reviewed by myself, there was some mild ST depression noted. Initial troponin does return at 16. Repeat 1 hour troponin returns at 21. Using the high-sensitivity troponin algorithm, this would indicate admission for the patient. I did order aspirin. I reevaluated the patient and he denies any further symptoms at this time. CTA chest had returned negative. I discussed patient's care with admitting [facility] physician, and patient is excepted to their service. Procedures CHARLES Maciel 04/13/22 1435 CHARELS Maciel 04/13/22 1805 documented in this encounterVeterans Affairs Pittsburgh Healthcare [id number] History and physical note* Tye Holbrook MD - 04/13/2022 6:03 PM EDT Images from the original note were not included. Arias Holbrook MD [facility] Hospitalists History and Physical Patient Name:Leon Rider :1980 Admit Date: [id number] Physicians: Zack Vigil MD (PCP) Perpetual Assessment: Leon Rider is a 41 y.o. male who presented from home on 04/13/2022 with complaints of shortness of breath, tells me that he felt like he was having a panic attack, work-up inthe ER showed mildly elevated troponin ASSESSMENT AND PLAN Shortness of breath -Patient presented to the hospital from his work after he started having some shortness of breath, thought he was having a panic attack -However on further questioning he does endorse some dyspnea on exertion -First troponin of 16, second troponin slightly elevated at 21 -CTA was not the very best study but without any evidence of acute PE -EKG without any acute ischemic changes -Admit patient to telemetry, observation bed -Patient had a stress test in 2019 which was negative -Clinically I doubt we are dealing with ACS, however he does have some dyspnea on exertion lately -Continue to monitor on telemetry overnight -We will check TTE in the a.m., if that shows preserved EF without any regional wall motion abnormalities he can potentially have a stress test if needed as outpatient -Obesity hypoventilation syndrome could also be contributing, consider sleep study as outpatient Cirrhosis -Reports of having fatty liver for years which progressed to cirrhosis -Used to follow-up with Dr. Dandy Healy from GI, he is retiring so the patient will need to follow-up with a new gemologist/footwear sales coordinator -No acute issues Thrombocytopenia -In the setting of underlying history of cirrhosis/portal hypertension leading to some splenic sequestration -Platelet count of 71 today, monitor Venous insufficiency -Chronic venous insufficiency over the lower extremities -I think the Adriana wraps will help, patient is on a diuretic regimen at home -Outpatient referral to vascular surgery for possible venous ablations might not be a bad idea Morbid obesity -With a BMI of 51 -Weight loss recommended Code Status: Full DVT Prophylaxis SCD/TEDS COVID Vaccine Status Vaccinated Medication Reconciliation Reviewed Expected Date of Discharge: 04/14 Comments/Disposition: Admit patient to the hospital for further evaluation and treatment HISTORY CC: Trouble breathing HPI: Leon Rider is a 41 y.o. male with a prior history of cirrhosis, portal hypertension, diabetes mellitus who had presented to the hospital with complaints of shortness of breath. Patient reports that he was at work this morning, apparently was having some meeting with his human resources andtells me that it was stressful, all of a sudden he started having some trouble breathing and thought that he was having a panic attack. Reports that he has had couple of these in the past, the last time he had 1 was when he had kidney stones. This episode may have lasted for about a minute or so, his were called the EMS and he was brought here to the emergency room. On further questioning the patient tells me that he is able to otherwise get around without any problems, however he does complainof feeling little heavy breathing and feeling winded when he walks outside with his dog. He has noticed swelling in his legs which according to him is nothing new for him. He denies any chest pain orany chest pressure to me. He denies any cough and expectoration. Denies any fevers. Upon arrival here to the emergency room the patient had routine blood work done, his first troponin was negative at16, however the second high-sensitivity troponin went up to 21 CTA was not the very best study but without any evidence of acute pulmonary embolism. We were contacted at this time for his admission to the hospital. When I saw him he is resting comfortably, appears to be in no acute distress, to be admitted for further evaluation and treatment ROS: > > > > > > > > > > The following system(s) were reviewed. Pertinent positive and negative findings are noted in the HPI. [x] Const [x] ENT [x] CV [x] [x] Musc [x] Psych [x] Allergy [x] Eyes [x] Resp [x] GI [x] Neuro [x] Skin [x] Endo [x] Heme/Lymph PMH/PSH/SH/FH: Past Medical History: Diagnosis Date Diabetes mellitus (CMS/HCC) Hypertension Liver cirrhosis (CMS/HCC) Past Surgical History: Procedure Laterality Date HERNIA REPAIR Family history .Father with a history of CAD, diabetes, in an MVA . Mother alive and well Social History Socioeconomic History Marital status: Spouse name: Not on file Number of children: Not on file Years of education: Not on file Highest education level: Not on file Occupational History Not on file Tobacco Use Smoking status: Never Smoker Smokeless tobacco: Never Used Substance and Sexual Activity Alcohol use: Not Currently Drug use: Not Currently Sexual activity: Not on file Other Topics Concern Not on file Social History Narrative Not on file Allergy Information: I have reviewed the patient's allergies. Patient has no known allergies. Home Medications: Prior to Admission medications Not on File PHYSICAL EXAMINATION > > > > > > > > Vital Signs: Temp: 37 C (98.6 F) (04/13 1232) Heart Rate: 91 (04/13 172) Resp: 18 (04/13 172) BP: 167/84 (04/13 172) GENERAL: NAD EYES: Conjunctiva and sclera clear, EOMI, PERRL ENT: Hearing intact. Pharynx clear. NECK: No adenopathy or thyromegaly. CV: RRR, no murmur. No JVD. 2+ pitting edema. RESP: Clear, no rales, rhonchi, wheezes or increase in respiratory effort, no use of accessory muscles. GI: Non-distended, +BS, soft, non-tender. No guarding, masses or rebound MUSC: Normal ROM without deformity. SKIN: Warm and dry. No rashes. NEURO: Alert, Ox3. Grossly normal motor and sensory exam. No focal deficits. PSYCH: Mood and affect are appropriate. Cooperative. Laboratory and Additional Data Acquired or Reviewed: [x] Laboratory [x] Radiology [x] Cardiology [x] Medications [x] Transcriptions [] Microbiology [] Outside Records [] Family Time Spent: documented in this encounterVeterans Affairs Pittsburgh Healthcare [id number] History of Present illness Narrative* Jean Carlos Isidro RN - 04/22/2021 8:50 AM EDT Reviewed dc with pt and his s/o. All questions answered. Pt in possession of paper oxy Rx. documented in this [id number] Miscellaneous Notes* Op Note - Sukhwinder Villalobos MD - 04/22/2021 8:01 AM EDT LEON RIDER CSN [id number] 1980 DATE 04/22/2021 OPERATIVE REPORT SURGEON SUKHWINDER VILLALOBOS MD PREOPERATIVE DIAGNOSIS Umbilical hernia. POSTOPERATIVE DIAGNOSIS Umbilical hernia. PROCEDURE Umbilical hernia repair with mesh. INDICATIONS A 40-year-old male with an umbilical hernia. DESCRIPTION OF PROCEDURE The patient was brought to the operative suite and placed in a supine position. After appropriate intravenous monitoring lines were established, general anesthesia was induced. The abdomen was prepped and draped in the usual sterile manner. An infraumbilical incision was made transversely and dissection was performed with electrocautery. The hernia sac was identified and removed. The patient had an umbilical hernia. At this point, I proceeded to place a small Ventralex mesh under the fascia and secured the straps to the fascia with 0 Nurolon suture. The patient's own fascia was then closed overlying the mesh using 0 Nurolon suture. 0.5% Marcaine with epinephrine was used. Subcutaneous tissues were closed with 2-0 and 3-0 Vicryl sutures. Skin was closed with a 4-0 Monocryl suture. Dressings were applied. The patient tolerated the procedure well. SUKHWINDER VILLALOBOS MD D 04/22/2021 07:46 [id number] T 04/22/2021 07:59 BP/MODL * Brief Op Note - Sukhwinder Villalobos MD - 04/22/2021 7:40 AM EDT Brief Post Operative Note Patient Name: Leon Rider : 1980 (40 y.o.) Date of Service: 04/22/2021 CSN: [id number] Procedure(s): REPAIR UMBILICAL HERNIA WITH MESH Pre-Operative Diagnoses: * Umbilical hernia without obstruction and without gangrene [K42.9] Post-Operative Diagnoses: * Same as Pre-Op Diagnosis * Umbilical hernia without obstruction and without gangrene [K42.9] Surgeon(s) and Role: * Sukhwinder Villalobos MD - Primary Anesthesiologist: Ha Alvarado MD INDUSTRIAL RENDERER: Tasneem Flores CRNA Ferry Boat Captain: Edith Feldman RN Scrub Person: Wanda Thurman Scrub Person Orientee: Edgardo Blackmon Scrub Person Assist: ST Kyler CLERICAL ADVISER: Johana Swan RN Operative findings: umbilical hernia Intra and immediate post-operative complications: none Type of anesthesia used: General Estimated blood loss: 10 mL Estimated urine output: Refer to surgical log Specimen(s): * No specimens in log * Implant(s): Implant Name Type Inv. Item Serial No. Controller Coal Or Ore Lot No. LRB No. Used Action PATCH 1.7IN HERNIA W/STRAP SM V[address]TR[address] ST - [id number] PATCH 1.7IN HERNIA W/STRAP SM VENTRALEX ST [employer] [id number] N/A 1 Implanted Drain(s): * No LDAs found * Wound(s): Wound 04/22/21 Surgical Wound Abdomen (Active) Sukhwinder Villalobos MD 04/22/2021 7:40 AM documented in this [id number] History and physical note* Sukhwinder Villalobos MD - 04/22/2021 6:26 AM EDT INTERVAL HISTORY AND PHYSICAL Patient Name: Leon Rider Admit Date: [id number] MR #: [id number] : 1980 The H&P has been reviewed and the patient has been examined. I concur with the findings of the H&P. There are no significant changes. It is appropriate to proceed with the planned procedure. Sukhwinder Villalobos MD 04/22/2021 6:26 AM documented in this [id number] Nurse Note* Aleyda Jett RN - 04/17/2021 10:49 AM EDT Patient Instructions for [facility]: Prior to arrival: Please be sure to wear loose, comfortable clothing and non-skid shoes Bring your health insurance information and a photo ID, as well as your Living Will or Durable Power of Geological Science Teacher for Healthcare if it is available to you. Bring your cane/walker any applicable assistive device. If you currently use a CPAP, please bring this device with you on the day of surgery. Bring a list of your medications with the name of the medication, dose and how often you are takingit. Be sure to include herbal preparations and jbes-hyf-hmyhufx medications on this list. Do not have any solid food 8 hours prior to surgery/procedure. This includes food, gum, mints or hard candy. Carefully follow any instructions you were given by your Surgeon regarding further food restrictions. Do not drink any alcoholic beverages, smoke or chew tobacco during the 24 hours prior to your surgery/procedure. Drink plenty of fluids the day prior to your procedure to maintain hydration. You may drink clear liquids up to 2 hours prior to surgery time (unless otherwise instructed by your surgeon). This includes water, Gatorade and black coffee (no dairy or creamer products). On the morning of your surgery/procedure, you may brush your teeth but avoid swallowing water except for a sip with any recommended medications to be taken the morning of surgery. Bathe or shower the night before or early on the day of your surgery/procedure. Avoid the use of lotions, perfumes or powders. All nail kosovan is to be removed from fingernails and toenails. Please be sure to remove all jewelry and body piercings and leave all valuables at home. You will receive a phone call between 3:30 and 7:30 pm the business day before your procedure to verify the time you should arrive at the hospital. Eyeglasses, hearing aids or dentures may be worn to the hospital. Bring your storage container for these items as you will be asked to remove them prior to your surgery/procedure. Please do not wear any contact lenses the day of your surgery/procedure. Parking at [facility] is free. Please park in the lot in front of the main lobby. Enter the Main Entrance where a Plastics Heat Welder Liaison at the information desk will greet you and accompany you to the surgery waiting area. Children under the age of 16 are NOT permitted in the Pre/Post Operative areas. They are welcome towait with a responsible adult in the surgery waiting area. CHG INSTRUCTIONS REVIEWED COMING WITH DOS After your surgery: If you are having an outpatient procedure and will be going home the same day, a responsible licensed adult must be available for transportation, and is expected to remain at the hospital for the duration of your surgery/procedure. You are NOT allowed to drive yourself home. [facility]* Clinical Note Date No Information [facility] Work Phone: Discharge summary* Clinical Note Date No Information [facility] Work Phone: Evaluation note* Diagnosis Umbilical hernia without obstruction and without gangrene- Primary Post-op pain Other acute postoperative pain documented in this encounter [facility] note* Diagnosis Body mass index 45.0-49.9, adult (CMS/HCC)- Primary Body Mass Index 45.0-49.9, adult documented in this encounter [facility] note* Diagnosis Stone, kidney Calculus of kidney documented in this encounter [facility] note* Diagnosis Dyspnea, unspecified type- Primary documented in this encounter [facility] note* Diagnosis GLASS (nonalcoholic steatohepatitis) Other chronic nonalcoholic liver disease documented in this encounter [facility] note* Diagnosis Esophageal varices with bleeding (CMS/HCC) documented in this encounter [facility] note* Diagnosis Calculus of kidney Calculus of kidney with calculus of ureter documented in this encounter [facility] note* Diagnosis Esophageal varices without bleeding, unspecified esophageal varices type (CMS/HCC) [I85.00 (ICD-10-CM)]- Primary documented in this encounter [facility] note* Diagnosis Esophageal varices without bleeding, unspecified esophageal varices type (CMS/HCC) [I85.00 (ICD-10-CM)]- Primary [facility] Diagnosis Painless hematuria- Primary [facility]* Diagnosis Hyperlipidemia, unspecified hyperlipidemia type- Primary Primary hypertension Unspecified essential hypertension Cirrhosis of liver without ascites, unspecified hepatic cirrhosis type (CMS/HCC) (HCC) Type 2 diabetes mellitus without complication, without long-term current use of insulin (CMS/HCC) (HCC) documented in this encounter [facility] Work Phone: Evaluation note* Type Assessment Date No Information [facility] Work Phone: History and physical note* Clinical Note Date No Information [facility] Work Phone: History of Present illness Narrative* Encounter Date Complaint History Of Prese nt Illness No Information [facility] Work Phone: Hospital Discharge instructions* Instructions* Lauren Boyd, [facility] - 04/22/2021 Umbilical Hernia Repair: What to Expect at Home You may have some pain around your belly button (navel) and need pain medicine for several days after surgery. The area around your navel may be swollen for several weeks. After surgery you will no longer have a hernia (a bulge around the navel). Most people are back to many of their normal activities 1 or 2 days after surgery. It takes about 1to 2 weeks for the cut the doctor made (incision) to heal. The incision will leave a small scar that will fade with time. If the hernia was large, there may be some loose skin around your navel. Thisusually shrinks and becomes less noticeable with time. This care sheet gives you a general idea about how long it will take for you to recover. But each person recovers at a different pace. Follow the steps below to help you get better as quickly as possible. How can you care for your self at home? Activity Slowly become more active. rest as much as needed. Get enough sleep at night. Walk at least 3 times daily to prevent pneumonia, blood clots, and constipation. You shower 1 to 2 days after the surgery. Pat the incision dry after the shower. Do not take a bathfor the first 2 weeks, or until the doctor tells you it is okay. You will likely be able to return to work within [address] once you are no longer taking narcotic pain medication, can brake quickly, and can turn around quickly to look behind you without pain. Until the doctor says it is okay, you should avoid lifting anything that would make you strain. No sex for 2 weeks. Diet You can eat your normal diet. If your stomach is upset, try bland, low-fat foods like plain rice, broiled chicken, toast, and yogurt. Drink plenty of non-caffeinated, non-carbonated fluids to avoid becoming dehydrated. You may notice a change in your habits right after surgery. This is common. If you have not had a bowel movement after a couple of days, call your doctor. Medicines Your doctor will tell you if and when to start your medicines. The doctor will also give you instructions taking any new medicines. Take medications as prescribed/ directed DO NOT EVER DRIVE while taking narcotic or prescribed pain medicine. Incision care Wash the area daily with warm, soapy water and pat it dry. Don't use hydrogen peroxide or alcohol, which can slow healing. If the incision is closed with Dermabond (skin glue) you may wash with soap and water and pat dry. Keep the area clean and dry. Follow-up care is a patrick part of your treatment and safety. Be sure to make and go to all appointments. When should you call for help? Call 911 anytime you think your child may need emergency care. For example, call if: You passes out (loses consciousness). You has severe trouble breathing. You has sudden chest pain and shortness of breath or coughs up blood. You has severe abdominal pain. Call the doctor now or seek immediate medical care if: You are sick to his or her stomach and cannot drink fluids. You have pain that does not get better you take pain medicine. You have signs of infection, such as: Increased pain, swelling, warmth, or redness. Red streaks leading from the incision. Pus draining from the incision. A fever. Your incisions come open. Bright red blood has soaked through the bandage over your incision. You have severe vomiting. You notice a sudden, new bulge at the incision site. Watch closely for changes in your health, and be sure to contact the doctor if: You do not have a bowel movement after taking a laxative. Where can you learn more? Log into your personal health record on [email or web address].Jellycoaster and enter J197 in the Education box to learn more about Umbilical Hernia Repair: What to Expect at Home. Current as of: October 03, 2015 Content Version: 11.0 5531-1373 [employer]. Care instructions adapted under license by your healthcare professional. If you have questions about a medical condition or this instruction, always ask your healthcare professional. [employer] disclaims any warranty or liability for your use of this information. Diabetes After Surgery: Care Instructions: If you have diabetes, having surgery can make your blood sugar go up. Having nausea from the anesthesia and/or pain medications can affect how much you eat; this can make your blood sugar go down. These things can be dangerous. Follow-up care is a patrick part of your treatment and safety. Be sure to make and go to all appointments, and call your doctor if you are having problems. It's also a good idea to know your test resultsand keep a list of the medicines you take. How can you care for yourself at home? After surgery, your blood sugar can go up or down (depending on whether you can keep food down). Write down the diabetes medicines you have been taking. Eat your normal types and amounts of food. Drink extra fluids, such as water, broth, and fruit juice, to prevent dehydration. If your blood sugar level is higher than the blood sugar level your doctor recommends (for example,above 240 milligrams per deciliter [mg/dL]), drink extra liquids that do not contain sugar, such aswater or sugar-free cola. If you cannot eat your usual foods, drink extra liquids, such as soup, sports drinks, or milk. You may also eat food that is gentle on the stomach, such as crackers, gelatin dessert, or applesauce. Try to eat or drink 50 grams of carbohydrate every 3 to 4 hours. For example, 6 saltine crackers, 1 cup (8 ounces) of milk, and cup (4 ounces) of orange juice each contain about 15 grams of carbohydrate. Check your blood sugar at least every 3 to 4 hours. If it goes up quickly, check it more often. Andcheck it even through the night. Take insulin if your doctor told you to do so. Call him or her foradvice. If you take insulin, check your urine or blood for ketones. This is especially important if your blood sugar is high. Do not take any fkxd-ewh-fjeltnl medicines, such as pain relievers, decongestants, or herbal products or other natural medicines, without talking with your doctor first. Do not drive. If you need to see your doctor or go anywhere else, ask a family member or friend to drive you. When should you call for help? Call 911 anytime you think you may need emergency care. For example, call if: You passed out (lost consciousness), or you suddenly become very sleepy or confused. (You may have very low blood sugar.) You have symptoms of high blood sugar, such as: Blurred vision. Trouble staying awake or being woken up. Fast, deep breathing. Breath that smells fruity. Belly pain, not feeling hungry, and vomiting. Feeling confused. Call your doctor now or seek immediate medical care if: You are sick and cannot control your blood sugar. You have been vomiting or have had diarrhea for more than 6 hours. Your blood sugar stays higher than the level your doctor has set for you. You have symptoms of low blood sugar, such as: Sweating. Feeling nervous, shaky, and weak. Extreme hunger and slight nausea. Dizziness and headache. Blurred vision. Confusion. Watch closely for changes in your health, and be sure to contact your doctor if: You have a hard time knowing when your blood sugar is low. You have trouble keeping your blood sugar in the target range. You often have problems controlling your blood sugar. You have symptoms of long-term diabetes problems, such as: New vision changes. New pain, numbness, or tingling in your hands or feet. Skin problems. Where can you learn more? Log into your personal health record on https://Snapfisht.Jellycoaster and enter L970 in the Education box to learn more about Diabetes Sick-Day Plan: Care Instructions. Current as of: April 05, 2016 Content Version: 11.0 0020-1886 Kuldat, Amiare. Care instructions adapted under license by your healthcare professional. If you have questions about a medical condition or this instruction, always ask your healthcare professional. Kuldat, [facility] disclaims any warranty or liability for your use of this information. Nausea and Vomiting After Surgery: Care Instructions After you've had surgery, you may feel sick to your stomach (nauseated) or you may vomit. Sometimesanesthesia can make you feel sick. It's a common side effect and often doesn't last long. Pain alsocan make you feel sick or vomit. After the anesthesia wears off, you may feel pain from the incision (cut). That pain could then upset your stomach. Taking pain medicine can also make you feel sick to your stomach. Whatever the cause, you may get medicine that can help. There are also some things you can do at home to prevent nausea and feel better. The doctor has checked you carefully, but problems can develop later. If you notice any problems ornew symptoms, get medical treatment right away. To prevent dehydration, drink plenty of fluids, enough so that your urine is light yellow or clear like water. Choose water and other caffeine-free clear liquids until you feel better. If you have kidney, heart, or liver disease and have to limit fluids, talk with your doctor before you increase the amount of fluids you drink. When you are able to eat, try clear soups, mild foods, and liquids until all symptoms are gone for 12 to 48 hours. Other good choices include dry toast, crackers, cooked cereal, and gelatin dessert, such as Jell-O. Do not smoke. Smoking and being around smoke can make nausea worse. If you need help quitting, talkto your doctor about stop-smoking programs and medicines. These can increase your chances of quitting for good. Instructions for after anesthesia: Rest for 24 hours after your surgery and anesthesia. Do not drive. Do not drink alcoholic beveragesduring this time. You may experience a sore throat, sore jaw, stiff neck, or muscle aches after anesthesia. You may also experience dry mouth and nausea. These symptoms should resolve over the next few days. If nausea or vomiting persists after surgery you may need an anti-nausea medication such as Zofran. This can be called in during normal office hours by calling your surgeon s office. If it isafter normal office hours you may need to go to the ER for this medication. Untreated sleep apnea is very dangerous, especially after surgery and when you are taking any kind of sedating medication, including the prescribed medication given to you after surgery. It can lead to a heart attack, stroke, and even sudden . Therefore, always wear your CPAP at night/w/ naps,always sleep with your head elevated (not just with pillows; the actual bed must be elevated), avoid sedating medications and alcohol at bedtime, and take the least amount of the prescribed medication for the least amount of time possible. documented in this [facility] Discharge instructions* Attachments The following attachments cannot be sent through Care Everywhere. * EGD (Upper Endoscopy): Post-op ([place]) * Monitored Anesthesia Care: MAC: General Info ([place]) [facility]* Attachments The following attachments cannot be sent through Care Everywhere. * Hematuria ([place]) documented in [facility] Health[facility]* Date Instruction Additional Infor mation No Information [facility] Work Phone: Progress note* Clinical Note Date No Information [facility] Work Phone: Reason for referral (narrative)* Reason For Referral No Information [facility] Work Phone: Reason for referral (narrative)No reason for referral information [facility]Ohio[facility] Work Phone: Summary Purpose Family History No Family History Records Found Family Member Type Diagnosis Age At Onset No Information Advance Directives No Advanced Directives Records FoundDocuments on File Type Date Recorded Patient Supervisor Picking Crew Expl anation Advance Directives and Livin g Will 04/22/2021 7:27 AM Documents on File Type Date Recorded Patient Supervisor Picking Crew Expl anation Power of Geological Science Teacher Latest Code Status on File Code Status Date Activated Date Inactivated Comments Full Code - Confirmed 04/13/2022 9:20 PM 04/14/2022 9:16 PM This code status was ascertained in the following way: Code status discussion: discussion with patient To update the patient's code status, place a code status order. Do not modify or discontinue any currently active code status orders. Latest Code Status on File Code Status Date Activated Date Inactivated Comments Full Code - Confirmed 04/13/2022 9:20 PM 04/14/2022 9:16 PM This code status was ascertained in the following way: Code status discussion: discussion with patient To update the patient's code status, place a code status order. Do not modify or discontinue any currently active code status orders. Latest Code Status on File Code Status Date Activated Date Inactivated Comments Full Code - Confirmed 04/13/2022 9:20 PM 04/14/2022 9:16 PM This code status was ascertained in the following way: Code status discussion: discussion with patient To update the patient's code status, place a code status order. Do not modify or discontinue any currently active code status orders. Latest Code Status on File Code Status Date Activated Date Inactivated Comments Full Code - Default 12/23/2022 8:54 AM 12/27/2022 2:56 AM This is order is used when code status has not been discussed with the patient, or code status is otherwise unknown/unconfirmed To update the patient's code status, place a code status order. Do not modify or discontinue any currently active code status orders. Code Status History Code Status Date Activated Date Inactivated Comments Full Code - Confirmed 04/13/2022 9:20 PM 04/14/2022 9:16 PM This code status was ascertained in the following way: Code status discussion: discussion with patient To update the patient's code status, place a code status order. Do not modify or discontinue any currently active code status orders. Latest Code Status on File Code Status Date Activated Date Inactivated Comments Full Code - Default 12/23/2022 8:54 AM 12/27/2022 2:56 AM This is order is used when code status has not been discussed with the patient, or code status is otherwise unknown/unconfirmed To update the patient's code status, place a code status order. Do not modify or discontinue any currently active code status orders. Code Status History Code Status Date Activated Date Inactivated Comments Full Code - Confirmed 04/13/2022 9:20 PM 04/14/2022 9:16 PM This code status was ascertained in the following way: Code status discussion: discussion with patient To update the patient's code status, place a code status order. Do not modify or discontinue any currently active code status orders. Directive Yes / No Effective Date File Name No Information Procedure Findings Note [facility] Patient Name: Leon Rider Procedure Date: 06/26/2020 1:38 PM Date of : 1980 Age: 40 Gender: Male Procedure: Upper GI endoscopy Indications: Heartburn, Cirrhosis rule out esophageal varices Providers: DANDY HEALY MD , Elieser Mijares MD Referring MD: Medicines: See the Anesthesia note for documentation of the administered medications Complications: No immediate complications. Estimated blood loss: None. Procedure: Pre-Anesthesia Assessment: - Prior to the procedure, a History and Physical was performed, and patient medications and allergies were reviewed. The patient's tolerance of previous anesthesia was also reviewed. The risks and benefits of the procedure and the sedat (more content not included)... Note Patient: LEON RIDER RN: ([facility])-[phone] Age: 40 years Sex: Male : 1980 Associated Diagnoses: None Author: Dyllan CARPIO, Elieser Pinto Supervising Physician Comments Documentation By: Attending Physician. Subjective Subjective: Patient participated in the evaluation: Yes. Nausea: not present. Vomiting: not present. Pain: acceptable pain control. Objective Objective: Vital Signs: Last Charted Vital Signs Temperature: 97.8 (06/26 14:15) Pulse: 80 (06/26 14:45) Respiration: 18 (06/26 14:45) BP: 148/67 (06/26 14:45) Pulse Ox: 95 (06/26 14:45) Oxygen Delivery: Room air (06/26 14:15) Pain Score: 0 (06/26 14:45) . Mental Status: Unchanged from preanesthesia assessment. Postoperative hydration: adequate. Assessment Assessment: Airway patent: yes. Plan Plan: Postanesthesia Plan: post anesthetic surveillance concluded. Note CLINICAL SUMMARY Please take this summary document to your follow up appointments. [facility] 06/26/20 14:28 [address] [place]. [address] PATIENT INFORMATION Name: LEON RIDER Address: [address] [place] [address] [place] [address] Age: 40 Years Phone: [phone] : 1980 12:00 MRN: [id number] Sex: Male Race: White Ethnicity: Not Hispan/Lat Admitted From: Clinic or [facility] Medical Service: Gastroenterology Nurse Unit/Bed: (MS) [facility] N/A Admit Date: 06/26/2020 12:03 PCP: Zack Vigil MD PHYSICIANS INVOLVED WITH CARE Attending Physicians: Dandy Healy MD - Gastroenterology Admitting Physician: None found Primary Care Physician:Musa CARPIO , Zack Randolph,,,Internal Medicine - Consults: None found DIAGNOSES: Cirrhosis Problems Active Migraines SAÚL (obstructive sleep apnea) Rash Cirrhosis Constipation E (more content not included)... Hospital Course Note CLINICAL SUMMARY Please take this summary document to your follow up appointments. [facility] 06/26/20 14:28 [id number] [place]. [address] PATIENT INFORMATION Name: LEON RIDER Address: [address] [place] [address] [place] [address] Age: 40 Years Phone: [phone] : 1980 12:[birth year] MRN: [id number] Sex: Male Race: White Ethnicity: Not Hispan/Lat Admitted From: Clinic or [facility] Medical Service: Gastroenterology Nurse Unit/Bed: (CO) [facility] N/A Admit Date: 06/26/2020 12:03 PCP: Musa CARPIO , Zack Randolph PHYSICIANS INVOLVED WITH CARE Attending Physicians: Dandy Healy MD - Gastroenterology Admitting Physician: None found Primary Care Physician:Musa CARPIO , Zack Randolph,,,Internal Medicine - Consults: None found DIAGNOSES: Cirrhosis Problems Active Migraines SAÚL (obstructive sleep apnea) Rash Cirrhosis Constipation E (more content not included)... Reason for Referral Specialty Diagnoses / Procedures Referred By Contac t Referred To Contact Radiology Diagnoses Body mass index 45.0-49.9, adult (CMS/HCC) Procedures US Abdomen Limited Dandy Healy MD [address] [place] [address] [facility] [place] Referral ID Status Reason Start Date Expiration Date V isits Requested Visits Authorized [id number] Pending Review 10/13/2021 04/11/2022 1 1 Specialty Diagnoses / Procedures Referred By Contac t Referred To Contact Radiology Diagnoses GLASS (nonalcoholic steatohepatitis) Procedures US Abdomen Limited Thom Oneill MD [address] [place] [address] [facility] [place] Referral ID Status Reason Start Date Expiration Date V isits Requested Visits Authorized [id number] Authorized 07/15/2022 01/11/2023 1 1 Specialty Diagnoses / Procedures Referred By Contac t Referred To Contact Diagnoses Esophageal varices with bleeding (CMS/HCC) Procedures EGD Anesthesia - MAC; [facility] END[facility] Carlos Jiménez MD [address] [place] [address] [facility] [place] Referral ID Status Reason Start Date Expiration Date V isits Requested Visits Authorized [id number] Authorized 09/28/2022 03/27/2023 1 1 Specialty Diagnoses / Procedures Referred By Contac t Referred To Contact Diagnoses Esophageal varices without bleeding (CMS/HCC) Procedures EGD Anesthesia - MAC; [facility] Paul Mishra V [address] [place] [address] [facility] [place] Referral ID Status Reason Start Date Expiration Date V isits Requested Visits Authorized [id number] Authorized 12/16/2022 01/16/2023 1 1 Specialty Diagnoses / Procedures Referred By Contac t Referred To Contact Diagnoses Esophageal varices without bleeding (CMS/HCC) Procedures EGD Anesthesia - MAC; [facility]COPY EGD Anesthesia - MAC; [facility] Vincent Moses MD [address] [address] [facility] [place] Referral ID Status Reason Start Date Expiration Date V isits Requested Visits Authorized [id number] Authorized 02/16/2023 03/18/2023 1 1 Chief Complaint and Reason for Visit Chief Complaint Admit Date RECTAL BLEEDING January 28, 2025 2:3 0pm Reason for Visit Admit Date Anal fissure January 28, 2025 2:3 0pm Additional Source Comments (unrecognized sect ion and content) No Status Records FoundNo Status Records FoundNo Status Records FoundNo Status Records FoundNo Status Records FoundNo Status Records FoundNo Status Records FoundNo Status Records FoundNo Status Records Found INFORMATION SOURCE (unrecogn ized section and content) DATE CREATED AUTHOR 12/25/2020 [facility] DATE CREATED AUTHOR AUTHOR'S ORGANIZ ATION 04/10/2021 [facility] DATE CREATED AUTHOR AUTHOR'S ORGANIZ ATION 04/22/2021 [facility] DATE CREATED AUTHOR AUTHOR'S ORGANIZ ATION 03/20/2022 [facility] DATE CREATED AUTHOR AUTHOR'S ORGANIZ ATION 02/18/[address] [facility] DATE CREATED AUTHOR AUTHOR'S ORGANIZ ATION 08/04/2023 [facility] DATE CREATED AUTHOR AUTHOR'S ORGANIZ ATION 09/25/2023 [facility] DATE CREATED AUTHOR AUTHOR'S ORGANIZ ATION 03/24/2024 [facility] DATE CREATED AUTHOR AUTHOR'S ORGANIZ ATION 05/05/2025 [facility] Reason for Visit (unrecogniz ed section and content) Status Reason Specialty Diagnoses / Procedures Referre d By Contact Referred To Contact Diagnoses Umbilical hernia without obstruction and without gangrene Umbilical hernia without obstruction and without gangrene [K42.9] Procedures NV REPAIR UMBILICAL HERNIA >= 5 YRS REDUC Sukhwinder Villalobos MD [address] [place] [address] Reason Comments Panic Attack Per EMS report patie nt had anxiety attack at work; Patient states that symptoms resolved on arrival to ED. Specialty Diagnoses / Procedures Referred By Contac t Referred To Contact Diagnoses SOB (shortness of breath) Dyspnea, unspecified type Procedures Tye Holbrook MD [address] [facility] [address] [place] [address] [place] [address] Referral ID Status Reason Start Date Expiration Date Visits Re quested Visits Authorized [id number] 1 1 Specialty Diagnoses / Procedures Referred By Contac t Referred To Contact Radiology Diagnoses GLASS (nonalcoholic steatohepatitis) Procedures US Abdomen Limited Oneill, MD Thom [address] [facility] [address] [place] [address] [facility] [place] Referral ID Status Reason Start Date Expiration Date V isits Requested Visits Authorized [id number] Authorized 07/15/2022 01/11/2023 1 1 Specialty Diagnoses / Procedures Referred By Contac t Referred To Contact Diagnoses Esophageal varices with bleeding (CMS/HCC) Procedures EGD Anesthesia - MAC; [facility] ENDOSCOPY Carlos Jiménez MD [address] [place] [address] [facility] [place] Referral ID Status Reason Start Date Expiration Date V isits Requested Visits Authorized [id number] Authorized 09/28/2022 03/27/2023 1 1 Specialty Diagnoses / Procedures Referred By Contac t Referred To Contact Diagnoses Esophageal varices without bleeding (CMS/HCC) Procedures EGD Anesthesia - MAC; [facility] Paul Mishra V [address] [place] [address] [facility] [place] Referral ID Status Reason Start Date Expiration Date V isits Requested Visits Authorized [id number] Authorized 12/16/2022 01/16/2023 1 1 Specialty Diagnoses / Procedures Referred By Contac t Referred To Contact Diagnoses Esophageal varices without bleeding (CMS/HCC) Procedures EGD Anesthesia - MAC; [facility] EGD Anesthesia - MAC; [facility] Vincent Moses MD [address] [address] [facility] [place] Referral ID Status Reason Start Date Expiration Date V isits Requested Visits Authorized [id number] Authorized 02/16/2023 03/18/2023 1 1 Reason Comments Blood in Urine Reports blood in uri ne since this morning. Denies pain.Lack of sleep and mood changes after medication changed. Reason Comments Follow-up Scheduled Active and Recently Administ ered Medications (unrecognized section and content) Medication Order 04/20/2021 04/21/2021 04/22/2021 ceFAZolin (ANCEF) IVPB 2 g (premix) (COMPLETED) 2,000 mg, Intravenous, at 100 mL/hr, Once, On Tue04/22/21 at 0715, For 1 dose, Pre-Procedure, Administer prior to incision., Indication (PRE PROCEDURE): OTHER, Indication (PRE PROCEDURE): gen surgery 0656 (Given - Provid er: Tasneem Flores CRNA) celecoxib (CELEBREX) capsule 400 mg (COMPLETED) 400 mg, Oral, Once, On Tue04/22/21 at 0715, For 1 dose, Pre-Procedure, Pre-op 0623 (Given - Provid er: Connie Stoeks RN) lidocaine 1% (PF) (XYLOCAINE-MPF) 10 mg/mL (1 %) injection 0.2 mL 0.2 mL, Intradermal, Once, On Tue04/22/21 at 0715, For 1 dose, Pre-Procedure, Around site prior to IV insertion 714 (Not Given - Pr ovider: Connie Stokes RN - Reason: Other - Comment: Not needed for IV start) oxyCODONE (ROXICODONE) 10 mg/0.5 mL concentrated solution 5 mg (COMPLETED) 5 mg, Sublingual, Once, On Tue04/22/21 at 0915, For 1 dose, PACU (only) 08 (Given - Provid er: Jean Carlos Isidro RN) Continuous Medication Order 04/20/2021 04/21/2021 04/22/2021 lactated Ringers infusion 50 mL/hr, Intravenous, Continuous, Starting on Tue04/22/21 at 0715, Pre-Procedure 0637 (New Bag - Prov ider: Connie Stokes RN)0714 (Paused - Provider: Tasneem Flores CRNA - Comment: Switch to gravity)0715 (Restarted - Provider: Tasneem Flores CRNA)0741 (New Bag - Provider: Tasneem Flores CRNA)0859 (Stopped - Provider: Jean Carlos Isidro RN) PRN Medication Order 04/20/2021 04/21/2021 04/22/2021 Bupivacaine-EPINEPHrine PF (MARCAINE-PF w/EPI) 0.5 %-1:200,000 injection (CANCELED) As needed, Starting on Tue04/22/21 at 0721, Intra-Procedure 0721 (Given - Provid er: Sukhwinder Villalobos MD) fentaNYL (SUBLIMAZE) injection 25 mcg 25 mcg, Intravenous, Every 5 min PRN, Pain, Starting on Tue04/22/21 at 0744, For 4 doses, PACU (only), [] Do not give more than 100 mcg while in PACU. 804 (Given - Provid er: Jean Carlos Isidro RN)809 (Given - Provider: Jean Carlos Isidro RN) hydrALAZINE (APRESOLINE) injection 5 mg 5 mg, Intravenous, Every 15 min PRN, SBP greater than 160 or DBP greater than 90, Starting on Tue04/22/21 at 0744, For 4 doses, PACU (only), [] Do not give more than 20 mg total. [] Hold for HR greater than 100. [] Administer if labetalol or metoprolol ineffective at maximum dose or not ordered. HYDROmorphone (DILAUDID) injection 0.5 mg 0.5 mg, Intravenous, Every 5 min PRN, Pain, Starting on Tue04/22/21 at 0744, For 6 doses, PACU (only), [] Give if fentanyl not effective or not ordered. [] Do not give more than 3 mg total. labetaloL (NORMODYNE) injection 5 mg 5 mg, Intravenous, Every 5 min PRN, SBP greater than 160 or DBP greater than 90, Starting on Tue04/22/21 at 0744, For 4 doses, PACU (only), [] Do not give more than 20 mg total. [] Hold for HR less than 50. naloxone (NARCAN) injection 0.1 mg(Linked Group 1) 0.1 mg, Intravenous, As needed, opioid reversal, Starting on Tue04/22/21 at 0744, PACU (only), [] Mix nalOXone (NARCAN) 0.4 mg (1ml) with 9 mL of Normal Saline to total 10 mL. [] Administer 0.1 mg (2.5ml) IV Push every 2 minutes until respiratory rate is 10 or greater. naloxone (NARCAN) injection 0.4 mg(Linked Group 1) 0.4 mg, Intravenous, As needed, opioid reversal, patient is pulseless, breathless, and unresponsive, Starting on Tue04/22/21 at 0744, PACU (only), Call a code first, then administer naloxone dose undiluted IV Push over 30 seconds. ondansetron (ZOFRAN) injection 4 mg 4 mg, Intravenous, Every 15 min PRN, nausea, vomiting, Starting on Tue04/22/21 at 0744, For 2 doses, PACU (only), Do not give more than 2 doses. Administer first as needed for nausea/vomiting, or as directed by anesthesia sodium chloride (NS) 0.9 % irrigation solution (CANCELED) As needed, Starting on Tue04/22/21 at 0721, Intra-Procedure 0721 (Given - Provid er: Sukhwinder Villalobos MD) Linked Groups Order Group 1: Notify Anesthesiologist (CANCELED) STAT, Until discontinued, Starting on Tue04/22/21 at 0745, Until Specified
Notify anesthesiologist immediately if respiratory rate less than or equal to 8 breaths per minute., PACU (only) And naloxone (NARCAN) injection 0.1 mgJump to med 0.1 mg, Intravenous, As needed, opioid reversal, Starting on Tue04/22/21 at 0744, PACU (only)
[] Mix nalOXone (NARCAN) 0.4 mg (1ml) with 9 mL of Normal Saline to total 10 mL. [] Administer 0.1 mg (2.5ml) IV Push every 2 minutes until respiratory rate is 10 or greater.
And naloxone (NARCAN) injection 0.4 mgJump to med 0.4 mg, Intravenous, As needed, opioid reversal, patient is pulseless, breathless, and unresponsive, Starting on Tue04/22/21 at 0744, PACU (only)
Call a code first, then administer naloxone dose undiluted IV Push over 30 seconds.
Scheduled Medication Order 04/12/2022 04/13/2022 04/14/2022 aspirin tablet 325 mg (COMPLETED) 325 mg, oral, Once, On Tue04/13/22 at 1701, For 1 dose 1755 (Given - Provider: Gerry Kramer RN) furosemide (LASIX) tablet 20 mg 20 mg, oral, Daily, First dose on Tue04/14/22 at 0900 0850 (Given - Provid er: Ethan Mei RN) hydrOXYzine HCL (ATARAX) tablet 25 mg (COMPLETED) 25 mg, oral, Once, On Tue04/14/22 at 1900, For 1 dose 1853 (Given - Provid er: Ethan Mei RN) iopamidoL (ISOVUE-370) 76 % injection 100 mL (COMPLETED) 100 mL, intravenous, Once in imaging, Starting on Tue04/13/22 at 1658, For 1 dose 1659 (Given - Provider: Gerry Valdes) pantoprazole (PROTONIX) EC tablet 40 mg 40 mg, oral, Every morning before breakfast, First dose on Tue04/14/22 at 0700, Do not crush, chew, or split. 0634 (Given - Provid er: Jaimie Jensen RN) perflutren lipid microsphere (DEFINITY) 1.3 mL in sodium chloride 8.7 mL injection (COMPLETED) 10 mL, intravenous, Administer over 10 Minutes, Once in imaging, Starting on Tue04/14/22 at 1429, For 1 dose, CV Medication Orders 1441 (Given - Provid er: Tamir Kumar RN) potassium chloride (KLOR-CON M20) CR tablet 20 mEq 20 mEq, oral, Daily, First dose on Tue04/14/22 at 0900, Best given with food and plenty of water to minimize gastric irritation. Tablet may be swallowed whole (do not crush/chew/suck on) OR broken in half and each half swallowed separately OR dissolved (whole tablet) in ~4 ounces of water (allow ~2 minutes to dissolve, stir well and administer immediately). 0850 (Given - Provid er: Ethan Mei RN) SITagliptin (JANUVIA) tablet 100 mg 100 mg, oral, Daily with lunch, First dose on Tue04/14/22 at 1200 1126 (Given - Provid er: Ethan Mei RN) triamterene-hydroCHLOROthi azide (DYAZIDE) 37.5-25 mg per capsule 1 capsule 1 capsule, oral, Daily with lunch, First dose on Tue04/14/22 at 1200 1131 (Given - Provid er: Ethan Mei RN) PRN Medication Order 04/12/2022 04/13/2022 04/14/2022 acetaminophen (TYLENOL) tablet 650 mg 650 mg, oral, Every 6 hours PRN, mild pain, Starting on Tue04/13/22 at 2120 ondansetron (PF) (ZOFRAN) injection 4 mg(Linked Group 1) 4 mg, intravenous, Every 8 hours PRN, vomiting, nausea, Starting on Tue04/13/22 at 2119, -ONLY give IV if patient is unable to take orally. -If inadequate response within 30 minutes, proceed to next-line agent or contact provider if no further options ordered. ondansetron ODT (ZOFRAN-ODT) dispersible tablet 4 mg(Linked Group 1) 4 mg, oral, Every 8 hours PRN, vomiting, nausea, Starting on Tue04/13/22 at 0, -Give IV if patient is unable to take orally. -If inadequate response within 30 minutes, proceed to next-line agent or contact provider if no further options ordered. For ODT tablets: -Do not remove from blister pack until just before administering. -Patient should allow tablet to dissolve on tongue. Linked Groups Order Group 1: ondansetron ODT (ZOFRAN-ODT) dispersible tablet 4 mgJump to med 4 mg, oral, Every 8 hours PRN, vomiting, nausea, Starting on Tue04/13/22 at 2119
-Give IV if patient is unable to take orally. -If inadequate response within 30 minutes, proceed to next-line agent or contact provider if no further options ordered. For ODT tablets: -Do not remove from blister pack until just before administering. -Patient should allow tablet to dissolve on tongue.
Or ondansetron (PF) (ZOFRAN) injection 4 mgJump to med 4 mg, intravenous, Every 8 hours PRN, vomiting, nausea, Starting on Tue04/13/22 at 2119
-ONLY give IV if patient is unable to take orally. -If inadequate response within 30 minutes, proceed to next-line agent or contact provider if no further options ordered.
Care Teams (unrecognized sec tion and content) Roentgenologist Relationship Specialty Start Date End Date Zack Vigil MD [address] [place] [address] PCP - General Internal Medicine 12/02/21 Roentgenologist Relationship Specialty Start Date End Date Zack Vigil MD [address] [place] [address] PCP - General Internal Medicine 12/02/21 Roentgenologist Relationship Specialty Start Date End Date Zack Vigil MD [address] [facility] [place] [place] [address] PCP - General Internal Medicine 12/02/21 Roentgenologist Relationship Specialty Start Date End Date Zack Vigil MD [address] [place] [address] PCP - General Internal Medicine 12/02/21 Roentgenologist Relationship Specialty Start Date End Date Zack Vigil MD [address] [place] [place] [address] PCP - General Internal Medicine 12/02/21 Roentgenologist Relationship Specialty Start Date End Date Zack Vigil MD [address] [place] [address] PCP - General Internal Medicine 12/02/21 Roentgenologist Relationship Specialty Start Date End Date Zack Vigil MD [address] [facility] [place] [place] [address] PCP - General Internal Medicine 12/02/21 Roentgenologist Relationship Specialty Start Date End Date Zack Vigil MD [address] [facility] [place] [place] [address] PCP - General Internal Medicine 12/02/21 Roentgenologist Relationship Specialty Start Date End Date Zack Vigil MD [address] [place] [address] PCP - General Internal Medicine 12/12/19 Roland Chavez [address] [place] [address] Referring Physician Otolaryngology 11/22/23 Thom Oneill MD [facility] [address] [place] [address] Referring Physician Gastroenterology 11/22/23 Name Effective Dates (start - stop) Status Members No Information Team Status: Active Member Role Status Dates Dr. Paul Smallwood MD Family Provider Active Alis Mace MD Primary Care Provider Active Team Status: Inactive Member Role Status Dates Alis Mace MD Primary Care Provider Active St art: January 28, 2025 End: January 28, 2025 Alis Mace MD Referring Provider Active Start : January 28, 2025 End: January 28, 2025 Dr. Lorie Willson MD Attending Provider Active Start: January 28, 2025 End: January 28, 2025 Team Status: Inactive Member Role Status Dates Alis Mace MD Primary Care Provider Active St art: April 29, 2025 End: April 29, 2025 Alis Mace MD Attending Provider Active Start : April 29, 2025 End: April 29, 2025 Alis Mace MD Referring Provider Active Start : April 29, 2025 End: April 29, 2025 Ordered Prescriptions (unrec ognized section and content) Prescription Sig Dispensed Refills Start Date End Da te hydrOXYzine HCL (ATARAX) 25 mg tablet Take 1 tablet (25 mg total) by mouth 2 (two) times a day if needed for anxiety. 30 each 0 04/14/2022 05/14/2022 atenoloL (TENORMIN) 25 mg tablet Take 1 tablet (25 mg total) by mouth 1 (one) time each day. 30 each 5 04/14/2022 10/11/2022 Goals (unrecognized section and content) Goals may be documented in a n alternate section FOR RECORDS PERTAINING TO PATIENTS WHO ARE OR HAVE BEEN ENROLLED IN A CHEMICAL DEPENDENCY/SUBSTANCEABUSE PROGRAM, SOME INFORMATION MAY BE OMITTED. This clinical summary was aggregated from multiple sources. Caution should be exercised in using it in the provision of clinical care. This summary normalizes information from multiple sources, and as a consequence, information in this document may materially change the coding, format and clinical context of patient data. In addition, data may be omitted in some cases. CLINICAL DECISIONS SHOULD BE BASED ON THE PRIMARY CLINICAL RECORDS. [facility] [employer] [facility]. provides no warranty or guarantee of the accuracy or completeness of information in this document.
--- NOTE | 2025-07-21 09:34 | EDS_ITS ---
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 Patient states that 8 PM last night he developed dull ache pressure in his chest. Lasted for couple minutes. He was working at the [employer] at that time. He returned that evening around 9:30 PM but it also stopped spontaneously. Today he is continued to have this sensation. He also has been winded even putting his pants on which is new for him. He notes for the past few months he has been having exercise intolerance and dyspnea on exertion. He also is been having worsening pain of his right lower leg for the past 2 to 3 days. States it is a constant dull ache when he touches it it becomes stabbing and is worse with walking or standing. He had an elevated outpatient D-dimer and venous duplex obtained 2 days ago. D-dimer was elevated however his venous duplex was negative. He has been having about a week of URI symptoms including sore throat and cough. Has been having some chills. Does have chronic swelling of his legs is not sure if it is any worse than normal. Denies any known cardiac history. Denies a history of DVT or PE. Does not take any medications this morning. No other complaints or concerns reported this time [facility] Medical History HTN (hypertension) Diabetes Acid reflux Rectal bleeding Hemorrhoids Home Medications ?Medication ?Instructions ?Recorded ?Last Taken ?Type Diltiazem 10mg/Lidocaine 50mg See Rx Instructions PA . BID #30 01/28/25 Unknown Rx Suppository 30 supp suppository supp furosemide 40 mg tablet 40 mg PO QDAY 01/28/25 Unkno wn History lisinopril 5 mg tablet 5 mg PO QDAY 01/28/25 Unknow n History metformin 1,000 mg tablet 1,000 mg PO BID 01/28/25 Unk nown History potassium chloride 20 mEq 20 meq PO QDAY 01/28/25 Unkn own History tablet,extended release sitagliptin phosphate 100 mg 100 mg PO QDAY 01/28/25 U nknown History tablet (Januvia) Allergy/AdvReac Type Severity Reaction Status Date / Time No Known Allergies Allergy Verified 07/21/25 09:08 Surgical History H/O umbilical hernia repair [place] teeth extracted Social History household members: spouse housing: house Smoking Status: Never smoker alcohol intake: never substance use type: does not use ROS ROS ED Constitutional Constitutional ED: Reports chills; Denies fever(s) ENT ENT ED: Reports sore throat and other Details: Nasal congestion Cardiovascular Cardiovascular: Reports chest pain; Denies palpitations or racing heartbeat Respiratory/Chest Respiratory/Chest: Reports cough, dyspnea, dyspnea on exertion and sputum Gastrointestinal Gastrointestinal: Reports nausea and other Details: Reports some mild GI symptoms/upset stomach today after eating a banana ; Denies abdominal pain Musculoskeletal Musculoskeletal: Reports other Details: Right lower leg pain Integumentary Denies rash Neurologic Neurologic: Reports weakness Hematologic/Lymphatic Hematologic/Lymphatic: Denies easy bleeding or easy bruising EXAM Physical Exam Const Vital Signs: 07/21/25 09:08 07/21/25 09:22 07/21/25 09:28 Temperature 98.8 F 99.2 F H Temperature Source Temporal Oral Pulse Rate 106 H Respiratory Rate 22 H Respiratory Effort Normal Non-Labored Blood Pressure 151/56 H Blood Pressure Mean 87 Pulse Ox 96 Oxygen Delivery Method Room Air 07/21/25 09:29 Temperature Temperature Source Pulse Rate Respiratory Rate Respiratory Effort Blood Pressure Blood Pressure Mean Pulse Ox Oxygen Delivery Method Room Air Positive well nourished and well developed Constitutional Narrative: Mildly ill-appearing General Appearance ED: well developed HEENT Reports moist mucous membranes HEENT Narrative: Normal oropharynx normocephalic Neck supple and no JVD Chest Wall inspection of chest normal and palpation of chest normal Resp Resp Narrative: Mildly tachypneic. Auscultation: Negative for rhonchi, wheezes or diminished lung sounds Cardio regular rhythm Cardio Narrative: Holo-systolic murmur present. 2+ radial and DP pulses present. Rate: tachycardic GI normal to inspection, nondistended, normoactive bowel sounds, soft to palpation and non-tender Extremity Extremity Narrative: Significant chronic appearing edema present of the lower extremities and changes consistent with lymphedema. Neuro oriented x3 Sensorium / Orientation: awake and alert
--- NOTE | 2025-07-21 09:34 | ED.VIS.CHEST ---
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 Patient states that 8 PM last night he developed dull ache pressure in his chest. Lasted for couple minutes. He was working at the [employer] at that time. He returned that evening around 9:30 PM but it also stopped spontaneously. Today he is continued to have this sensation. He also has been winded even putting his pants on which is new for him. He notes for the past few months he has been having exercise intolerance and dyspnea on exertion. He also is been having worsening pain of his right lower leg for the past 2 to 3 days. States it is a constant dull ache when he touches it it becomes stabbing and is worse with walking or standing. He had an elevated outpatient D-dimer and venous duplex obtained 2 days ago. D-dimer was elevated however his venous duplex was negative. He has been having about a week of URI symptoms including sore throat and cough. Has been having some chills. Does have chronic swelling of his legs is not sure if it is any worse than normal. Denies any known cardiac history. Denies a history of DVT or PE. Does not take any medications this morning. No other complaints or concerns reported this time [facility] Medical History HTN (hypertension) Diabetes Acid reflux Rectal bleeding Hemorrhoids Home Medications ?Medication ?Instructions ?Recorded ?Last Taken ?Type furosemide 40 mg tablet 40 mg PO QDAY diuretic 01/28/25 Unknown History lisinopril 5 mg tablet 5 mg PO QDAY bp 01/28/25 Unknown History metformin 1,000 mg tablet 1,000 mg PO BID diabetes 01/28/25 Unknown History sitagliptin phosphate 100 mg 100 mg PO QDAY diabetes 01/28/25 Unknown History tablet (Januvia) atorvastatin 20 mg tablet 20 mg PO DAILY cholesterol 07/21/25 Unknown History omeprazole 40 mg capsule,delayed 40 mg PO DAILY stomach 07/21/25 Unknown History release repaglinide 1 mg tablet 1 mg PO BID diabetes 07/21/25 Unknown History triamterene 37.5 1 cap PO DAILY diuretic/bp 07/21/25 Unknown History mg-hydrochlorothiazide 25 mg capsule Allergy/AdvReac Type Severity Reaction Status Date / Time No Known Allergies Allergy Verified 07/21/25 09:08 Surgical History H/O umbilical hernia repair [place] teeth extracted Social History (Updated 07/21/25 @ 13:33 by Alyssa Ring) household members: spouse housing: house Smoking Status: Never smoker alcohol intake: never substance use type: does not use ROS ROS ED Constitutional Constitutional ED: Reports chills; Denies fever(s) ENT ENT ED: Reports sore throat and other Details: Nasal congestion Cardiovascular Cardiovascular: Reports chest pain; Denies palpitations or racing heartbeat Respiratory/Chest Respiratory/Chest: Reports cough, dyspnea, dyspnea on exertion and sputum Gastrointestinal Gastrointestinal: Reports nausea and other Details: Reports some mild GI symptoms/upset stomach today after eating a banana ; Denies abdominal pain Musculoskeletal Musculoskeletal: Reports other Details: Right lower leg pain Integumentary Denies rash Neurologic Neurologic: Reports weakness Hematologic/Lymphatic Hematologic/Lymphatic: Denies easy bleeding or easy bruising EXAM Physical Exam Const Vital Signs: 07/21/25 09:08 07/21/25 09:22 07/21/25 09:28 Temperature 98.8 F 99.2 F H Temperature Source Temporal Oral Pulse Rate 106 H Respiratory Rate 22 H Respiratory Effort Normal Non-Labored Blood Pressure 151/56 H Blood Pressure Mean 87 Pulse Ox 96 Oxygen Delivery Method Room Air 07/21/25 09:29 07/21/25 10:17 07/21/25 11:00 Temperature Temperature Source Pulse Rate 99 Respiratory Rate 15 Respiratory Effort Blood Pressure 131/63 H 129/49 H Blood Pressure Mean 85 75 Pulse Ox 99 Oxygen Delivery Method Room Air 07/21/25 12:00 Temperature Temperature Source Pulse Rate 86 Respiratory Rate 17 Respiratory Effort Blood Pressure Blood Pressure Mean Pulse Ox 98 Oxygen Delivery Method Positive well nourished and well developed Constitutional Narrative: Mildly ill-appearing General Appearance ED: well developed HEENT Reports moist mucous membranes HEENT Narrative: Normal oropharynx normocephalic Neck supple and no JVD Chest Wall inspection of chest normal and palpation of chest normal Resp Resp Narrative: Mildly tachypneic. Auscultation: Negative for rhonchi, wheezes or diminished lung sounds Cardio regular rhythm Cardio Narrative: Holo-systolic murmur present. 2+ radial and DP pulses present. Rate: tachycardic GI normal to inspection, nondistended, normoactive bowel sounds, soft to palpation and non-tender Extremity Extremity Narrative: Significant chronic appearing edema present of the lower extremities and changes consistent with lymphedema. Neuro oriented x3 Sensorium / Orientation: awake and alert Motor Exam: general weakness Psych mental status grossly normal Skin Skin Narrative: Erythema and warmth of the right lower leg with no associated lymphangitic streaking. No wounds appreciated. Chronic skin changes in the lower extremities consistent with chronic edema versus lymphedema. MDM MDM MDM Narrative Medical decision making narrative: Patient is evaluated for shortness of breath, chest pressure as well as increased pain in his right lower extremity. He had a recent elevated D-dimer and noted a negative venous duplex 2 days ago. This was reviewed through our system. Differential is broad including pulmonary emboli, cellulitis, CHF, pneumonia, symptomatic anemia, electrolyte derangement and pneumothorax. He denies any black or blood in his stool. CBC shows no leukocytosis he does have anemia with a hemoglobin 8.8. I do not have any recent labs however his hemoglobin last year was 10.4. Is unclear if this is acute and causing his respiratory/cardiac symptoms or chronic. He does have coagulopathy and likely attributed to his cirrhosis. Feel occult is obtained which is negative. His BUN is normal is lower sufficient for occult GI bleeding. Lactate is elevated 3.2 is unclear if this is secondary to infection or associate with his cirrhosis. He does have an elevated bilirubin at 3.82 which is worse his baseline. He is given gentle fluids as clinically he does have cellulitis and does meet criteria for sepsis however he is not given a full 30 cc/kg fluid bolus because of his significant edema and concern for acute overload as well. His chest CT does not show any pulmonary emboli but does show some signs of interstitial edema. He currently does not have any increased O2 requirements. High sensitive troponin is normal at 8. Lower suspicion for ACS. Patient will be admitted for further treatment of his cellulitis as well as for his shortness of breath. He does have a a heart murmur and patient is not aware of this. Concern for acute heart failure as well. Case is discussed with hospitalist for admission. History & Record Review Additional record(s) reviewed:: Prior outpatient record ([facility] labs CMP, A1c and lipid profile, no CBC available. Total bili 2.1) and Prior labs Lab Data Attestation: I reviewed the patient's lab results. Labs: Laboratory Results - last 24 hr 07/21/25 07/21/25 07/21/25 09:18 09:35 10:25 WBC 9.3 RBC 3.35 L Hgb 8.8 L Hct 26.8 L MCV 80.0 MCH 26.3 L MCHC 32.8 RDW Std Deviation 63.7 H RDW Coeff of Melina 22.6 H Plt Count 112 L MPV 10.3 Immature Gran % (Auto) 0.600 Neut % (Auto) 70.4 H Lymph % (Auto) 10.4 L [place] % (Auto) 15.8 H Eos % (Auto) 2.3 Baso % (Auto) 0.5 Absolute Neuts (auto) 6.6 Absolute Lymphs (auto) 0.97 Nucleated RBC % 0 Differential Comment SCANNED Polychromasia 1+ Anisocytosis 2+ Microcytosis 1+ Target Cells 1+ PT 20.3 H INR 1.7 APTT 39.4 H Sodium 127 L Potassium 3.7 Chloride 97 L Carbon Dioxide 17.8 L Anion Gap 12 BUN 8 Creatinine 0.66 L Est GFR (MDRD) Non-Af 117 BUN/Creatinine Ratio 12.9 Glucose 168 H Lactic Acid 3.2 H* Calcium 8.1 Magnesium Total Bilirubin 3.82 H Direct Bilirubin AST 42 H ALT 33 Alkaline Phosphatase 109 Troponin T High Sens 8 Troponin T Hi Sens 2 Hr NT pro BNP II 106 Total Protein 6.6 Albumin 2.5 L Globulin 4.1 Albumin/Globulin Ratio 0.6 L TSH 1.550 Urine Color Yellow Urine Clarity Clear Urine pH 6.5 Ur Specific [place] 1.010 Urine Protein 30 H Urine Glucose (UA) Normal Urine Ketones Negative Urine Occult Blood 25 H Urine Nitrite Negative Urine Bilirubin 1 H Urine Urobilinogen 4 H Ur Leukocyte Esterase Negative Urine RBC 0 SEEN Urine WBC 0 SEEN Ur Squamous Epith Cells 0 SEEN Urine Bacteria 0 SEEN Urine Mucus 0 SEEN Blood Type Antibody Screen 07/21/25 07/21/25 11:25 11:56 WBC RBC Hgb Hct MCV MCH MCHC RDW Std Deviation RDW Coeff of Melina Plt Count MPV Immature Gran % (Auto) Neut % (Auto) Lymph % (Auto) Pacific % (Auto) Eos % (Auto) Baso % (Auto) Absolute Neuts (auto) Absolute Lymphs (auto) Nucleated RBC % Differential Comment Polychromasia Anisocytosis Microcytosis Target Cells PT INR APTT Sodium Potassium Chloride Carbon Dioxide Anion Gap BUN Creatinine Est GFR (MDRD) Non-Af BUN/Creatinine Ratio Glucose Lactic Acid Calcium Magnesium 1.8 Total Bilirubin Direct Bilirubin 1.79 H AST ALT Alkaline Phosphatase Troponin T High Sens Troponin T Hi Sens 2 Hr 7 NT pro BNP II Total Protein Albumin Globulin Albumin/Globulin Ratio TSH Urine Color Urine Clarity Urine pH Ur Specific [place] Urine Protein Urine Glucose (UA) Urine Ketones Urine Occult Blood Urine Nitrite Urine Bilirubin Urine Urobilinogen Ur Leukocyte Esterase Urine RBC Urine WBC Ur Squamous Epith Cells Urine Bacteria Urine Mucus Blood Type B POSITIVE Antibody Screen NEGATIVE Radiography Diagnostic Testing: Clinical Impression(s) from Imaging Studies Chest CTA 07/21/25 09:27 IMPRESSION: Negative for pulmonary embolus.. Mild interstitial edema. Mild mediastinal adenopathy. Cirrhosis. Reading Location: [facility] Rhythm Strip Rhythm Strip: Sinus Tach Rate: 101 Ectopy: None EKG Initial EKG: Attestation: I personally reviewed and interpreted this EKG as follows: Interpretation: Sinus Tachycardia Comments: Sinus tachycardia rate 101 bpm Normal axis Normal intervals Normal ST segments Management Discussion w/another healthcare provider: Hospitalist Discharge Plan Dx/Rx/DC Orders Clinical Impression: Cellulitis of right leg without foot, Chest pain, atypical, Anemia, Hx of cirrhosis, Serum total bilirubin elevated, Cardiac murmur, Elevated lactic acid level Disposition Disposition: Acute Care Hospital [facility] Discharge Date/Time: 07/21/25 12:46
[2025-07-21 09:50] LABS: Hematocrit 26.8 % (40-54); Hemoglobin 8.8 g/dL (13.0-16.5); Immature Granulocytes Count 0.060 X10^3/uL (0.0-0.0); Mean Corp Hgb Conc 32.8 g/dL (32-36); Mean Corpuscular Volume 80.0 fL (80-94); Mean Platelet Vol. 10.3 fl (6.2-12.0); NRBC Flagged by Analyzer 0 % (0-5); POSITIVE MORPHOLOGY YES; Platelet Count 112 K/mm3 (150-450); RBC Distribution Width CV 22.6 % (11.6-14.6); RBC Distribution Width SD 63.7 fl (35.1-43.9); Red Blood Count 3.35 M/mm3 (4.6-6.2); White Blood Count 9.3 K/mm3 (4.4-11.0)
[2025-07-21 09:56] LABS: Differential Indicated SCAN CRITERIA MET
[2025-07-21 10:03] LABS: Partial Thromboplast Time 39.4 Seconds (24.1-36.2); Prothrombin Time (Protime)PT. 20.3 SECONDS (11.7-14.9)
[2025-07-21 10:07] LABS: Troponin T High Sensitivity 8 ng/L (<=22)
[2025-07-21 10:23] LABS: Differential Comment SCANNED
[2025-07-21 10:24] LABS: Anisocytosis 2+; Target Cells 1+
[2025-07-21 10:25] LABS: Microcytosis 1+; Polychromasia 1+
[2025-07-21 10:28] LABS: AST(SGOT) 42 U/L (<=37); Alanine Aminotransfer ALT/SGPT 33 U/L (<=46); Albumin, Serum 2.5 g/dL (3.5-5.0); Alkaline Phosphatase 109 U/L (40-129); Anion Gap 12 (5-15); BUN 8 mg/dL (4-19); BUN/Creat Ratio 12.9 RATIO (10-20); Calcium,Total 8.1 mg/dL (7.6-11.0); Carbon Dioxide 17.8 mmol/L (21.0-32.0); Chloride 97 mmol/L (98-108); Globulin 4.1 g/dL (2.2-4.2); Glucose 168 mg/dL (70-99); Potassium 3.7 mmol/L (3.3-5.1); Pro- Brain NATRIURETIC PEPTIDE 106 pg/mL (<=450)
[2025-07-21] MEDS: 0.9% Normal Saline (1000mL) 1,000 ML 999 ML IV (10:32)
[2025-07-21 10:39] LABS: Mucous, Urine 0 SEEN /hpf (<or=2+); Red Blood Cells-Urine 0 SEEN /hpf (0-5); Squamous Epithelial Cells - UA 0 SEEN /hpf (0-5)
[2025-07-21 11:13] LABS: Color, Urine Yellow (Yellow); Glucose, Dipstick Normal (Normal); Ketone-Dipstick Negative (Negative); Leukocyte Esterase-Dipstick Negative /ul (Negative); Nitrite-Dipstick Negative (Negative); Occult Blood-Urine 25 /ul (Negative); Protein-Dipstick 30 mg/dl (Negative); Specific Gravity, Urine 1.010 (1.002-1.030)
[2025-07-21] MEDS: Cefazolin 2 GM in 0.9% Normal Saline (100mL Bag) 100 ML IV (11:43)
--- NOTE | 2025-07-21 11:50 | PCM.HP.STD ---
HPI - General General Date of Admission: 07/21/25 Date of Service: 07/21/25 Chief Complaint: Atypical chest pain about 2 times last night. HPI Narrative LEON RIDER, is a 45 M with multiple comorbidities came to ED after he had 2-3 times chest pain last night. Chest pain he felt like localized, pressure-like child sitting on his chest. No radiation. About 5-6 times/10 in intensity. Patient is not good historian and does not give/remember chronological order of his symptoms, frequency or number of times. He further said he has shortness of breath for several weeks, not getting better more with ADL. He has morbid obesity and uses CPAP and has chronic bilateral lower extremity lymphedema. He denies any passing out or fall. On last Tuesday he went to the PCP from where he was sent to ED for right venous duplex rule out DVT and was ruled out. Patient says he also has cough for about 2 to 3 months, not clear about his sputum states sometimes. He is not sure about fever but felt like cold several days ago. He is vague historian He was diagnosed with cirrhosis probably 7 to 10 years ago. 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 [facility] Medical History HTN (hypertension) Diabetes Acid reflux Rectal bleeding Hemorrhoids Home Medications ?Medication ?Instructions ?Recorded ?Last Taken ?Type Diltiazem 10mg/Lidocaine 50mg See Rx Instructions NE .BID #30 01/28/25 Unknown Rx Suppository 30 supp suppository supp furosemide 40 mg tablet 40 mg PO QDAY 01/28/25 Unknown History lisinopril 5 mg tablet 5 mg PO QDAY 01/28/25 Unknown History metformin 1,000 mg tablet 1,000 mg PO BID 01/28/25 Unknown History sitagliptin phosphate 100 mg 100 mg PO QDAY 01/28/25 Unknown History tablet (Januvia) atorvastatin 20 mg tablet 20 mg PO DAILY 07/21/25 Unknown History omeprazole 40 mg capsule,delayed 40 mg PO DAILY 07/21/25 Unknown History release repaglinide 1 mg tablet 1 mg PO BID 07/21/25 Unknown History triamterene 37.5 1 cap PO DAILY 07/21/25 Unknown History mg-hydrochlorothiazide 25 mg capsule Allergy/AdvReac Type Severity Reaction Status Date / Time No Known Allergies Allergy Verified 09/07/25 09:08 Surgical History H/O umbilical hernia repair [place] teeth extracted Social History household members: spouse housing: house Smoking Status: Never smoker alcohol intake: never substance use type: does not use ROS ROS Narrative Constitutional: Reports fatigue and weakness. No clear history of fever HEENT: Reports systems reviewed and no addt'l complaints, except as documented Respiratory/Chest: As described in HPI. Uses CPAP. CVS: Left-sided localized chest pain 2 times in the last night. No radiation. As described in HPI. Gastrointestinal: Denies coffee ground emesis, hematemesis or vomiting Genitourinary: Denies burning urination or new urinary tract symptoms Musculoskeletal: Difficulty in ambulation. Chronic lower extremity swelling Neurologic: Denies seizure-like symptoms. skin: No ulcer. No rash Endocrinology: Reports systems reviewed and no addt'l complaints, except as documented Hematologic/Lymphatic: Reports systems reviewed and no addt'l complaints, except as documented Rest 14 ROS are negative except as mentioned in HPI Vital Signs Vital Signs Vital Signs: 07/21/25 09:08 07/21/25 09:22 07/21/25 09:28 Temperature 98.8 F 99.2 F H Temperature Source Temporal Oral Pulse Rate 106 H Respiratory Rate 22 H Respiratory Effort Normal Non-Labored Blood Pressure 151/56 H Blood Pressure Mean 87 Pulse Ox 96 Oxygen Delivery Method Room Air 07/21/25 09:29 07/21/25 10:17 07/21/25 11:00 Temperature Temperature Source Pulse Rate 99 Respiratory Rate 15 Respiratory Effort Blood Pressure 131/63 H 129/49 H Blood Pressure Mean 85 75 Pulse Ox 99 Oxygen Delivery Method Room Air Weight Weight: 388 lb 7.272 oz Body Mass Index (BMI) 54.1 Physical Exam Narrative General: Alert, Oriented x3, Cooperative. Morbid obesity BMI 54.2 kg/m? HEENT: Atraumatic, PERRLA, EOMI, Normocephalic. Oral: Deep oropharyngeal history could not be visualized Neck: Supple, No JVD, Negative Carotid Bruits Chest wall/Lungs: Air entry severely diminished in bilateral lung bases. Mild crepitation in right lung base Cardiovascular: Regular rate and rhythm, Normal S1,S2, No M/G/R Abdomen: Bowel Sounds Present, Soft, Non Tender, Non-Distended : No dysuria. No renal angle tenderness. No suprapubic tenderness. Extremities: No edema, Capillary Refill Less than 3 Seconds Skin: Redness/erythema present over right calf area Musculoskeletal: Tenderness in right calf. Bilateral lower extremity lymphedema chronic. ROM restricted over knees and hip joints Neurological: Cranial nerves II-XII grossly intact, DTR 2+/4. No acute focal neurological deficit. Psych/Mental Status: Flat affect Results Lab / Micro Data 07/21/25 09:18 07/21/25 09:18 Labs: Laboratory Results - last 24 hr 07/21/25 09:18: WBC 9.3, RBC 3.35 L, Hgb 8.8 L, Hct 26.8 L, MCV 80.0, MCH 26.3 L, MCHC 32.8, RDW Std Deviation 63.7 H, RDW Coeff of Melina 22.6 H, Plt Count 112 L, MPV 10.3, Immature Gran % (Auto) 0.600, Neut % (Auto) 70.4 H, Lymph % (Auto) 10.4 L, [place] % (Auto) 15.8 H, Eos % (Auto) 2.3, Baso % (Auto) 0.5, Absolute Neuts (auto) 6.6, Absolute Lymphs (auto) 0.97, Nucleated RBC % 0, Differential Comment SCANNED, Polychromasia 1+, Anisocytosis 2+, Microcytosis 1+, Target Cells 1+, Sodium 127 L, Potassium 3.7, Chloride 97 L, Carbon Dioxide 17.8 L, Anion Gap 12, BUN 8, Creatinine 0.66 L, Est GFR (MDRD) Non-Af 117, BUN/Creatinine Ratio 12.9, Glucose 168 H, Calcium 8.1, Total Bilirubin 3.82 H, AST 42 H, ALT 33, Alkaline Phosphatase 109, Troponin T High Sens 8, NT pro BNP II 106, Total Protein 6.6, Albumin 2.5 L, Globulin 4.1, Albumin/Globulin Ratio 0.6 L, TSH 1.550 07/21/25 09:35: PT 20.3 H, INR 1.7, APTT 39.4 H, Lactic Acid 3.2 H* Micro: Microbiology 07/21/25 09:38 Mucosa - Nose SARS-CoV-2, Influenza & RSV (PCR) - Final 07/21/25 10:25 Stool Stool Occult Blood (GIORGIO) - Final Imaging Radiology Impression Chest CTA 07/21/25 09:27 IMPRESSION: Negative for pulmonary embolus.. Mild interstitial edema. Mild mediastinal adenopathy. Cirrhosis. Reading Location: [facility] Assessment & Plan Assessment/Plan (1) Cellulitis: QUALIFIERS: Site of cellulitis: extremity Site of cellulitis of extremity: lower extremity Laterality: right Qualified Code(s): L03.115 - Cellulitis of right lower limb (2) Chest pain, atypical: PLAN: Plan This is 45-year-old gentleman admitted with chest pain last night and several weeks of shortness of breath yesterday 1. Atypical chest pain and SOB probably due to heart failure exacerbation: Patient is being admitted in PCU. First troponin 8, second pending. proBNP 106 but may be falsely normal/low due to morbid obesity. Chest CTA negative for pulmonary embolism and earlier venous duplex were negative for acute DVT. It shows mild/trivial edema, mild mediastinal adenopathy and cirrhosis. Lactic acid elevated probably due to ineffective circulation/venous congestion. Started on furosemide 40 mg IV twice daily. ED physician ordered 1 L normal saline bolus. Heart failure core measures including intake and output, fluid restriction less than 1500 mL, daily weight monitoring, kidney and electrolytes monitoring. 2D echo ordered for tomorrow a.m. Twelve-lead EKG sinus tachycardia 101 bpm, QTc 479 ms. No previous EKG to compare. 2. RLE cellulitis with bilateral chronic venous hypertension and lymphedema: Right lower leg is tender and edematous slightly more than LLE. Venous duplex of right lower extremity negative for acute DVT. It shows valvular competence possible deep venous system. Started on IV ceftriaxone after patient got IV cefazolin in the ED. No open wound to culture. 3. Decompensated MASLD cirrhosis with mild perihepatic ascites, thrombocytopenia and hypotonic hypervolemic hyponatremia: Albumin 2.5, platelet count 112K. T. bili 3.82, AST 42. ALT normal. Right upper quadrant sonogram ordered. 4. DM type II: Glucose is elevated 168. Patient on multiple oral antidiabetic medications which are held. Started on Lantus 10 units p.o. daily. Accu-Chek before meals and at bedtime with Humalog sliding scale coverage and hypoglycemia protocol. 5. Hypertension: Blood pressure is in normal range though it was elevated in the ED. 6. Other comorbidities include GERD, anal fissure/hemorrhoid: On PPI. Continue PPI. Saw Dr. Lorie Willson for anal fissure and was advised sitz bath, diltiazem and lidocaine suppository and avoid constipation. 7. Morbid obesity with obstructive sleep apnea/possible obesity hypoventilation syndrome: Patient uses CPAP at home, continue Living will/advanced directive/end of life care: Patient does not have living will or advanced directive. His is next of kin. After discussion of benefits/risks procedures involved with full code, DNR CC arrest and DNR CC, the patient opted for full code. Patient does want artificial life support including intubation, tube feed, ventilator and/chest compression, central venous catheter, vasopressor and DC shock if needed Total time spent in [id number] encounter in discussion of advanced directive 17 minutes. Microbiology Past 72 Hours 07/21/25 09:38 Mucosa - Nose SARS-CoV-2, Influenza & RSV (PCR) - Final 07/21/25 10:25 Stool Stool Occult Blood (GIORGIO) - Final Laboratory Results 07/21/25 09:18: WBC 9.3, RBC 3.35 L, Hgb 8.8 L, Hct 26.8 L, MCV 80.0, MCH 26.3 L, MCHC 32.8, RDW Std Deviation 63.7 H, RDW Coeff of Melina 22.6 H, Plt Count 112 L, MPV 10.3, Immature Gran % (Auto) 0.600, Neut % (Auto) 70.4 H, Lymph % (Auto) 10.4 L, [place] % (Auto) 15.8 H, Eos % (Auto) 2.3, Baso % (Auto) 0.5, Absolute Neuts (auto) 6.6, Absolute Lymphs (auto) 0.97, Nucleated RBC % 0, Differential Comment SCANNED, Polychromasia 1+, Anisocytosis 2+, Microcytosis 1+, Target Cells 1+, Sodium 127 L, Potassium 3.7, Chloride 97 L, Carbon Dioxide 17.8 L, Anion Gap 12, BUN 8, Creatinine 0.66 L, Est GFR (MDRD) Non-Af 117, BUN/Creatinine Ratio 12.9, Glucose 168 H, Calcium 8.1, Total Bilirubin 3.82 H, AST 42 H, ALT 33, Alkaline Phosphatase 109, Troponin T High Sens 8, NT pro BNP II 106, Total Protein 6.6, Albumin 2.5 L, Globulin 4.1, Albumin/Globulin Ratio 0.6 L, TSH 1.550 07/21/25 09:35: PT 20.3 H, INR 1.7, APTT 39.4 H, Lactic Acid 3.2 H* 07/21/25 10:25: Urine Color Yellow, Urine Clarity Clear, Urine pH 6.5, Ur Specific [place] 1.010, Urine Protein 30 H, Urine Glucose (UA) Normal, Urine Ketones Negative, Urine Occult Blood 25 H, Urine Nitrite Negative, Urine Bilirubin 1 H, Urine Urobilinogen 4 H, Ur Leukocyte Esterase Negative, Urine RBC 0 SEEN, Urine WBC 0 SEEN, Ur Squamous Epith Cells 0 SEEN, Urine Bacteria 0 SEEN, Urine Mucus 0 SEEN 07/21/25 11:25: Blood Type B POSITIVE, Antibody Screen Pending 07/21/25 11:56: Magnesium Pending, Direct Bilirubin Pending, Troponin T Hi Sens 2 Hr Pending Clinical Impression(s) from Imaging Studies Chest CTA 07/21/25 09:27 IMPRESSION: Negative for pulmonary embolus.. Mild interstitial edema. Mild mediastinal adenopathy. Cirrhosis. Charges/Coding Visit Charges Inpatient E&M: 41206 Init Hosp L3 Procedures Hospitalists Procedures: [id number] Advncd Care Plan 30 Min
[2025-07-21 11:56] LABS: Urine Bilirubin Dipstick 1 mg/dL (Negative)
--- OUTSIDE RECORDS SUMMARY | 2025-07-21 12:22 | XMS RPT_ITS | CCD ---
Author Organization [facility] Care Team Providers Care Vice President Of [employer] Name Role Phone HUGO BNirav JNirav Referring [...] Zack Vigil MD Primary Care Provider [phone] THOM ONEILL Referring Unavailable ZACK VIGIL Primary Care Unavailable TAD V~[phone], TAD OCHOA Attending Un available TAD V~[phone], TAD OCHOA Referring Un available SHOZACK HOWE [...] Unavailable Zack Vigil MD Primary Care Provider [phone] Roland Chavez Unavailable Thom Oneill MD Unavailable [...] sources) Spironolactone; Translations: [SPIRONOLACTONE] Drug Allergy 10-14-2023 [facility] Primary Care Physicians Medications Current Medications Medication [...] times a day 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 14 capsule 0 [...] without long-term current use of insulin (CMS/HCC) ([facility]) Take 1 tablet by mouth in the [...] 2 tablets by mouth if needed. Active [id number] 200 actuat albuterol 0.09 mg/actuat metered dose [...] 04-29-2025 Potassium [Moles/Vol] 4.1 mmol/L Normal 3.3-5.1 [facility] Comment on above: Order Comment: Order Date: 04/29/25 Order Info: [id number] - K Performed By: #### L 501.5600 #### [facility] [address] [place], [address] Potassium measurement (mass/ volume)Ordered By: Alis Mace on 04-29-2025 Potassium (Unsp spec) [Mass/Vol] 4.1 mmol/L 3.3-5.1 [facility] Surgery Visit Reporton 01-28 Surgery Visit Report [facility] [address] [place] [address] OFFICE VISIT Date of Service: 01/28/25 MR#: [id number] Acct: [id number] Name: LEON RIDER Rep #: [id number] : 1980 Provider: Dr. Lorie lim MD Age/Sex: 44/M Location: [facility] Status: Signed Intake Vital Signs 01/28/25 [...] ???Type Diltiazem 10mg/Lidocaine 50mg See Rx Instructions [place] .BID #30 01/28/25 Rx Suppository 30 supp [...] QDAY 01/28/25 01/28/25 H istory tablet (Januvia) [facility] Medical History (Updated 01/30/25 @ 12:[address] Lorie Willson MD) HTN (hypertension) Diabetes Acid reflux Rectal bleeding Hemorrhoids Surgical History (Updated 01/28/25 @ 14:44 by Erma Spaulding LPN) H/O umbilical hernia repair [place] teeth extracted Social History (Updated 01/28/25 @ [...] did have a colonoscopy in 2021 in [place] states he may have had polyps at that time. Patient states he has bowel movements daily denies constipation. Does admit to staying on the toilet for prolonged periods of time. Patient did get yjgw-ujv-rgzywtl treatment for hemorrhoids/fissures ???Dr. De Santiago's which [...] prolonged times (more content not included)... Normal [facility] CBC W/Diff, Automatedon 08 SMEAR COMMENT SCANNED Normal [facility] Comment on above: Order Comment: Order Date: 06/20/24 Order Info: [id number] - CBCD Result Comment: THRO MBOCYTOPENIA NOTED Performed By: #### L 500.4100, L501.9985, L500.4050, L100.0100 #### [facility] [address] [place], [address] Comprehensive Metabolic Prof ilon 06-20-2024 Albumin [Mass/Vol] 2.4 g/dL Low 3.2-5.0 [facility] Comment on above: Order Comment: Order Date: 06/20/24 Order Info: [id number] - CMP Order Info: [id number] - LIPID Performed By: #### L 500.4100, L501.9985, L500.4050, L100.0100 #### [facility] [address] [place], [address] Albumin/Globulin [Mass ratio] 0.5 {ratio} Low 0.9-2.4 [facility] Comment on above: Order Comment: Order Date: 06/20/24 Order Info: [id number] - CMP Order Info: [id number] - LIPID Performed By: #### L 500.4100, L501.9985, L500.4050, L100.0100 #### [facility] [address] [place], [address] ALK P 130 U/L High 45-117 [facility] Comment on above: Order Comment: Order Date: 06/20/24 Order Info: [id number] - CMP Order Info: [id number] - LIPID Performed By: #### L 500.4100, L501.9985, L500.4050, L100.0100 #### [facility] [address] [place], [address] ALT [Catalytic activity/Vol] 38 U/L Normal 16-61 [facility] Comment on above: Order Comment: Order Date: 06/20/24 Order Info: [id number] - CMP Order Info: [id number] - LIPID Performed By: #### L 500.4100, L501.9985, L500.4050, L100.0100 #### [facility] [address] [place], [address] AST [Catalytic activity/Vol] 51 U/L High 15-37 [facility] Comment on above: Order Comment: Order Date: 06/20/24 Order Info: 0786- - CMP Order Info: [id number] - LIPID Performed By: #### L 500.4100, L501.9985, L500.4050, L100.0100 #### [facility] [address] [place], [address] Bilirubin [Mass/Vol] 2.10 mg/dL High 0.20-1.00 [facility] Comment on above: Order Comment: Order Date: 06/20/24 Order Info: 0786- - CMP Order Info: [id number] - LIPID Result Comment: For patients on eltrombopag therapy, use of Dimension [place] TBIL is not recommended. Performed By: #### L 500.4100, L501.9985, L500.4050, L100.0100 #### [facility] [address] [place], [address] BUN/CRE 10.8 RATIO Normal 10-20 [facility] Comment on above: Order Comment: Order Date: 06/20/24 Order Info: [id number] - CMP Order Info: [id number] - LIPID Performed By: #### L 500.4100, L501.9985, L500.4050, L100.0100 #### [facility] [address] [place], [address] CA,Total 8.5 mg/dL Normal 8.5-10.1 [facility] Comment on above: Order Comment: Order Date: 06/20/24 Order Info: [id number] - CMP Order Info: [id number] - LIPID Performed By: #### L 500.4100, L501.9985, L500.4050, L100.0100 #### [facility] [address] [place], [address] Chloride [Moles/Vol] 106 mmol/L Normal 98-107 [facility] Comment on above: Order Comment: Order Date: 06/20/24 Order Info: [id number] - CMP Order Info: [id number] - LIPID Performed By: #### L 500.4100, L501.9985, L500.4050, L100.0100 #### [facility] [address] [place], [address] CO2 [Moles/Vol] 23.0 mmol/L Normal 21.0-32.0 [facility] Comment on above: Order Comment: Order Date: 06/20/24 Order Info: [id number] - CMP Order Info: [id number] - LIPID Performed By: #### L 500.4100, L501.9985, L500.4050, L100.0100 #### [facility] [address] [place], [address] Creatinine [Mass/Vol] 0.56 mg/dL Low 0.70-1.30 [facility] Comment on above: Order Comment: Order Date: 06/20/24 Order Info: [id number] - CMP Order Info: [id number] - LIPID Result Comment: The validity of the calculated GFR GFRAA in patients over 70 years has not been determined. Clinical correlation is essential. Performed By: #### L 500.4100, L501.9985, L500.4050, L100.0100 #### [facility] [address] [place], [address] EST GFR - AA 203 mL/min Normal >60 [facility] Comment on above: Order Comment: Order Date: 06/20/24 Order Info: [id number] - CMP Order Info: [id number] - LIPID Result Comment: Afri can Malian GFR Calc Performed By: #### L 500.4100, L501.9985, L500.4050, L100.0100 #### [facility] [address] [place], [address] GAP 9 Normal 5-15 [facility] Comment on above: Order Comment: Order Date: 06/20/24 Order Info: 0786- - CMP Order Info: [id number] - LIPID Performed By: #### L 500.4100, L501.9985, L500.4050, L100.0100 #### [facility] [address] [place], [address] GFR/1.73 sq M.predicted among non-blacks MDRD (S/P/Bld) [Vol rate/Area] 168 mL/min/{1.73_m2} Normal >[address] [facility] Comment on above: Order Comment: Order Date: 06/20/24 Order Info: [id number] - CMP Order Info: [id number] - LIPID Result Comment: Non- GFR Calc Performed By: #### L 500.4100, L501.9985, L500.4050, L100.0100 #### [facility] [address] [place], [address] Globulin (S) [Mass/Vol] 4.4 g/dL High 2.2-4.[address] [facility] Comment on above: Order Comment: Order Date: 06/20/24 Order Info: [id number] - CMP Order Info: [id number] - LIPID Performed By: #### L 500.4100, L501.9985, L500.4050, L100.0100 #### [facility] [address] [place], [address] Glucose [Mass/Vol] 107 mg/dL High 74-106 [facility] Comment on above: Order Comment: Order Date: 06/20/24 Order Info: [id number] - CMP Order Info: [id number] - LIPID Result Comment: Fast ing Glucose result from 100 to 125 mg/dL suggests IMPAIRED HOMEOSTASIS per A.D.A. criteria. Performed By: #### L 500.4100, L501.9985, L500.4050, L100.0100 #### [facility] [address] [place], [address] Potassium [Moles/Vol] 3.4 mmol/L Low 3.5-5.1 [facility] Comment on above: Order Comment: Order Date: 06/20/24 Order Info: [id number] - CMP Order Info: [id number] - LIPID Performed By: #### L 500.4100, L501.9985, L500.4050, L100.0100 #### [facility] [address] [place], [address] Sodium [Moles/Vol] 138 mmol/L Normal 136-145 [facility] Comment on above: Order Comment: Order Date: 06/20/24 Order Info: [id number] - CMP Order Info: [id number] - LIPID Performed By: #### L 500.4100, L501.9985, L500.4050, L100.0100 #### [facility] [address] [place], [address] T PROT 6.8 g/dL Normal 6.4-8.2 [facility] Comment on above: Order Comment: Order Date: 06/20/24 Order Info: [id number] - CMP Order Info: [id number] - LIPID Performed By: #### L 500.4100, L501.9985, L500.4050, L100.0100 #### [facility] [address] [place], [address] Urea nitrogen [Mass/Vol] 6 mg/dL Low 7-18 [facility] Comment on above: Order Comment: Order Date: 06/20/24 Order Info: [id number] - CMP Order Info: [id number] - LIPID Performed By: #### L 500.4100, L501.9985, L500.4050, L100.0100 #### [facility] [address] [place], [address] Hemoglobin A1con 06-20-2024 HbA1c (Bld) [Mass fraction] 6.6 % High 3.8-5.6 [facility] Comment on above: Order Comment: Order Date: 06/20/24 Order Info: [id number] - A1C Result Comment: Norm al < 5.7 % Prediabetic 5.7 - 6.4 % Diabetic >or= 6.5 % Please note range changes. Performed By: #### L 500.4100, L501.9985, L500.4050, L100.0100 #### [facility] [address] [place], [address] Lipid Profileon 06-20-2024 Cholesterol [Mass/Vol] 118 mg/dL Normal 200 [facility] Comment on above: Order Comment: Order Date: 06/20/24 Order Info: [id number] - CMP Order Info: [id number] - LIPID Result Comment: <200 mg/dL Desirable 200-240 mg/dL Borderline >240 mg/dL High Risk Performed By: #### L 500.4100, L501.9985, L500.4050, L100.0100 #### [facility] [address] [place], [address] Cholesterol in HDL [Mass/Vol] 37 mg/dL Low [facility] Comment on above: Order Comment: Order Date: 06/20/24 Order Info: [id number] - CMP Order Info: [id number] - LIPID Result Comment: The drugs N-Acetylcysteine and Metamizole may falsely depress this assay. Reference Range HDL <40 mg/dL Low HDL Cholesterol HDL >or= 60 mg/dL High HDL Cholesterol Performed By: #### L 500.4100, L501.9985, L500.4050, L100.0100 #### [facility] [address] [place], [address] Cholesterol in LDL [Mass/Vol] 61 mg/dL Normal 0-130 [facility] Comment on above: Order Comment: Order Date: 06/20/24 Order Info: [id number] - CMP Order Info: [id number] - LIPID Performed By: #### L 500.4100, L501.9985, L500.4050, L100.0100 #### [facility] [address] [place], [address] Cholesterol in VLDL [Mass/Vol] 20 mg/dL Normal 5-40 [facility] Comment on above: Order Comment: Order Date: 06/20/24 Order Info: [id number] - CMP Order Info: [id number] - LIPID Performed By: #### L 500.4100, L501.9985, L500.4050, L100.0100 #### [facility] [address] [place], [address] Triglyceride [Mass/Vol] 98 mg/dL Normal [facility] Comment on above: Order Comment: Order Date: 06/20/24 Order Info: [id number] - CMP Order Info: [id number] - LIPID Result Comment: The drugs N-Acetylcysteine and Metamizole may falsely depress this assay. Serum Triglycerides Reference Interval Normal <150 mg/dL Borderline high 150 - 199 mg/dL High 200 - 499 mg/dL Very High > or = 500 mg/dL Performed By: #### L 500.4100, L501.9985, L500.4050, L100.0100 #### [facility] [address] [place], [address] BASIC METABOLIC PANELon 05-0 -2023 Anion gap [Moles/Vol] 7 mmol/L Normal 5-15 [facility] Comment on above: Order Comment: Locat ion: Performed By: #### L AB129, ZAB775, IWX792, LAB15, LAB18, LAB20 #### LEON SLOAN ([id number]) [facility] ([facility]) [address] [facility], [address] [place] [address] B/C RATIO 10.0 Normal 10.0-28.6 [facility] Comment on above: Order Comment: Locat ion: Performed By: #### L AB129, VEG447, ZVF058, LAB15, LAB18, LAB20 #### LEON SLOAN ([id number]) [facility] ([facility]) [address] [facility], [address] [place] [address] Calcium [Mass/Vol] 7.9 mg/dL Low 8.7-10.4 [facility] Comment on above: Order Comment: Locat ion: Performed By: #### L AB129, KWH494, JYG732, LAB15, LAB18, LAB20 #### LEON SLOAN ([id number]) [facility] ([facility]) [address] [address] Chloride [Moles/Vol] 106 mmol/L Normal 98-107 [facility] Comment on above: Order Comment: Locat ion: Performed By: #### L AB129, CKE190, YIF886, LAB15, LAB18, LAB20 #### LEON SLOAN ([id number]) [facility] ([facility]) [address] [address] CO2 [Moles/Vol] 27 mmol/L Normal 20-31 [facility] Comment on above: Order Comment: Locat ion: Performed By: #### L AB129, LRO750, CBB226, LAB15, LAB18, LAB20 #### LEON SLOAN ([id number]) [facility] ([facility]) [address] [facility], [address] [place] [address] Creatinine [Mass/Vol] 0.6 mg/dL Low 0.7-1.3 [facility] Comment on above: Order Comment: Locat ion: Performed By: #### L AB129, BDI860, CWO838, LAB15, LAB18, LAB20 #### LEON SLOAN ([id number]) [facility] ([facility]) [address] [address] GFR 121.3 mL/min/1.73m*2 Normal >=60.0 [facility] Comment on above: Order Comment: Locat ion: Performed By: #### L AB129, FCW922, GYS283, LAB15, LAB18, LAB20 #### LEON SLOAN ([id number]) [facility] ([facility]) [address] [facility], [address] [address] Glucose [Mass/Vol] 136 mg/dL High 74-106 [facility] Comment on above: Order Comment: Locat ion: Performed By: #### L AB129, TZD543, RTM944, LAB15, LAB18, LAB20 #### LEON SLOAN ([id number]) [facility] ([facility]) [address] [place] [address] Potassium [Moles/Vol] 3.6 mmol/L Normal 3.5-5.1 [facility] Comment on above: Order Comment: Locat ion: Performed By: #### L AB129, WVN936, DVX258, LAB15, LAB18, LAB20 #### LEON SLOAN ([id number]) [facility] ([facility]) [address] [place] [address] Sodium [Moles/Vol] 140 mmol/L Normal 136-145 [facility] Comment on above: Order Comment: Locat ion: Performed By: #### L AB129, KDC181, LQN980, LAB15, LAB18, LAB20 ###Tom SLOAN ([id number]) [facility] ([facility]) [address] [place] [address] Urea nitrogen [Mass/Vol] 6 mg/dL Low 9-23 [facility] Comment on above: Order Comment: Locat ion: Performed By: #### L AB129, YUH583, JJW255, LAB15, LAB18, LAB20 #### LEON SLOAN ([id number]) [facility] ([facility]) [address] [place] [address] CBC WITH AUTO DIFFERENTIALon 03-20-2024 BASO # 0.1 K CUMM Normal 0.0-0.2 [facility] Comment on above: Order Comment: Locat ion: Performed By: #### Kathleen [id number], [id number] #### LEON SLOAN ([id number]) [facility] ([facility]) [address] [address] Basophils/100 WBC (Bld) 1.8 % Normal 0.0-3.0 [facility] Comment on above: Order Comment: Locat ion: Performed By: #### Kathleen CHING, [id number] #### LEON SLOAN ([id number]) [facility] ([facility]) [address] [address] Eosinophils (Bld) [#/Vol] 0.27 10*3/uL Normal 0.00-0.4 0 [facility] Comment on above: Order Comment: Locat ion: Performed By: #### Kathleen CHING, [id number] #### LEON SLOAN ([id number]) [facility] ([facility]) [address] [place] [address] Eosinophils/100 WBC (Bld) 5.9 % Normal 0.0-7.0 [facility] Comment on above: Order Comment: Locat ion: Performed By: #### Kathleen [id number], [id number] #### LEON SLOAN ([id number]) [facility] ([facility]) [address] [place] [address] Erythrocyte distribution width (RBC) [Ratio] 18.3 % High 11.5-15.5 [facility] Comment on above: Order Comment: Locat ion: Performed By: #### Kathleen [id number], [id number] #### LEON SLOAN ([id number]) [facility] ([facility]) [address] [place] [address] Hematocrit (Bld) [Volume fraction] 34.2 % Low 42.0-52.0 [facility] Comment on above: Order Comment: Locat ion: Performed By: #### L [id number], [id number] #### LEON SLOAN ([id number]) [facility] ([facility]) [address] [address] Hemoglobin (Bld) [Mass/Vol] 10.8 g/dL Low 13.5-18.0 [facility] Comment on above: Order Comment: Locat ion: Performed By: #### Kathleen CHING, [id number] #### LEON SLOAN ([id number]) [facility] ([facility]) [address] [place] [address] IMMGRN# 0.0 K CUMM Normal 0.0-0.3 [facility] Comment on above: Order Comment: Locat ion: Performed By: #### Kathleen CHING, [id number] #### LEON SLOAN ([id number]) [facility] ([facility]) [address] [place] [address] IMMGRN% 0.2 % Normal 0.0-3.0 [facility] Comment on above: Order Comment: Locat ion: Performed By: #### Kathleen CHING, [id number] #### LEON SLOAN ([id number]) [facility] ([facility]) [address] [place] [address] LYMPH # 1.1 K CUMM Normal 0.7-4.5 [facility] Comment on above: Order Comment: Locat ion: Performed By: #### Kathleen CHING, [id number] #### LEON SLOAN ([id number]) [facility] ([facility]) [address] [place] [address] Lymphocytes/100 WBC (Bld) 23.2 % Normal 14.0-46.0 [facility] Comment on above: Order Comment: Locat ion: Performed By: #### Kathleen [id number], [id number] #### LEON SLOAN ([id number]) [facility] ([facility]) [address] [place] [address] MCH (RBC) [Entitic mass] 27.8 pg Normal 27.0-31.0 [facility] Comment on above: Order Comment: Locat ion: Performed By: #### Kathleen CHING, [id number] #### LEON SLOAN ([id number]) [facility] ([facility]) [address] [place] [address] MCHC (RBC) [Mass/Vol] 31.6 g/dL Low 32.0-36.0 [facility] Comment on above: Order Comment: Locat ion: Performed By: #### Kathleen CHING, [id number] #### LEON SLOAN ([id number]) [facility] ([facility]) [address] [place] [address] MCV (RBC) [Entitic vol] 87.9 fL Normal 78.0-100.0 [facility] Comment on above: Order Comment: Locat ion: Performed By: #### Kathleen CHING, [id number] #### LEON SLOAN ([id number]) [facility] ([facility]) [address] [place] [address] MONO # 0.8 K CUMM Normal 0.1-1.0 [facility] Comment on above: Order Comment: Locat ion: Performed By: #### Kathleen CHNIG, [id number] #### LEON SLOAN ([id number]) [facility] ([facility]) [address] [place] [address] Monocytes/100 WBC (Bld) 16.6 % High 4.0-13.0 [facility] Comment on above: Order Comment: Locat ion: Performed By: #### Kathleen [id number], [id number] #### LEON SLOAN ([id number]) [facility] ([facility]) [address] [place] [address] ELISEO # 2.4 K CUMM Normal 1.8-7.8 [facility] Comment on above: Order Comment: Locat ion: Performed By: #### Kathleen BERNSTEINJO1975, [id number] #### LEON SLOAN ([id number]) [facility] ([facility]) [address] [address] Neutrophils/100 WBC (Bld) 52.3 % Normal 40.0-74.0 [facility] Comment on above: Order Comment: Locat ion: Performed By: #### L [id number], [id number] #### LEON SLOAN ([id number]) [facility] ([facility]) [address] [address] Nucleated RBC/100 WBC (Bld) [Ratio] 0.0 % Normal 0.0-0.9 [facility] Comment on above: Order Comment: Locat ion: Performed By: #### Kathleen CHING, [id number] #### LEON SLOAN ([id number]) [facility] ([facility]) [address] [place] [address] Platelet mean volume (Bld) [Entitic vol] 10.8 fL Normal 8.9-12.6 [facility] Comment on above: Order Comment: Locat ion: Performed By: #### Kathleen [id number], [id number] #### LEON SLOAN ([id number]) [facility] ([facility]) [address] [place] [address] PLT 75 K CUMM Low 130-400 [facility] Comment on above: Order Comment: Locat ion: Performed By: #### Kathleen [id number], [id number] #### LEON SLOAN ([id number]) [facility] ([facility]) [address] [place] [address] RBC 3.9 M CUMM Low 4.2-5.8 [facility] Comment on above: Order Comment: Locat ion: Performed By: #### L [id number], [id number] #### LEON SLOAN ([id number]) [facility] ([facility]) [address] [place] [address] WBC 4.6 K CUMM Normal 3.8-10.6 [facility] Comment on above: Order Comment: Locat ion: Performed By: #### L [id number], [id number] #### LEON SLOAN ([id number]) [facility] ([facility]) [address] [facility], [address] [place] [address] HEPATIC PANELon 03-20-2024 Albumin [Mass/Vol] 2.8 g/dL Low 3.2-4.8 [facility] Comment on above: Order Comment: Locat ion: Performed By: #### L AB129, OBI168, UYZ925, LAB15, LAB18, LAB20 #### LEON SLOAN ([id number]) [facility] ([facility]) [address] [facility], [address] [address] ALP [Catalytic activity/Vol] 146 U/L High 40-127 [facility] Comment on above: Order Comment: Locat ion: Performed By: #### L AB129, AWD227, PYK189, LAB15, LAB18, LAB20 #### LEON SLOAN ([id number]) [facility] ([facility]) [address] [address] ALT [Catalytic activity/Vol] 56 U/L High 10-49 [facility] COPCP Comment on above: Order Comment: Locat ion: Performed By: #### L AB129, [id number], HGH915, LAB15, LAB18, LAB20 ###Tom SLOAN ([id number]) [facility] ([facility]) [address] [facility], [address] [address] AST [Catalytic activity/Vol] 68 U/L High <=34 [facility]CP Comment on above: Order Comment: Locat ion: Performed By: #### L AB129, XAP101, MYY373, LAB15, LAB18, LAB20 #### LEON SLOAN ([id number]) [facility] ([facility]) [address] [place] [address] BILI (INDIRECT) 1.7 mg/dL High 0.0-1.1 [facility]CP Comment on above: Order Comment: Locat ion: Performed By: #### L AB129, EJN742, WLZ099, LAB15, LAB18, LAB20 #### LEON SLOAN ([id number]) [facility] ([facility]) [address] [facility], [address] [place] [address] Bilirubin [Mass/Vol] 3.0 mg/dL High 0.3-1.2 [facility]CP Comment on above: Order Comment: Locat ion: Performed By: #### L AB129, CKI629, QFN525, LAB15, LAB18, LAB20 #### LEON SLOAN ([id number]) [facility] ([facility]) [address] [facility], [address] [address] Bilirubin.direct [Mass/Vol] 1.3 mg/dL High <=0.4 [facility] Comment on above: Order Comment: Locat ion: Performed By: #### L AB129, VBI366, PHT279, LAB15, LAB18, LAB20 #### LEON SLOAN ([id number]) [facility] ([facility]) [address] [address] Protein [Mass/Vol] 6.6 g/dL Normal 5.7-8.2 [facility] COPCP Comment on above: Order Comment: Locat ion: Performed By: #### L AB129, SEV322, END644, LAB15, LAB18, LAB20 #### LEON SLOAN ([id number]) [facility] ([facility]) [address] [address] [id number] 03-20-2024 HbA1c (Bld) [Mass fraction] 6.9 % High 0.0-5.6 [facility] Comment on above: Order Comment: Locat ion: Result Comment: Refe rence Interval: Normal: below 5.7% Prediabetes: 5.7% to 6.4% Diabetes: 6.5% or above Performed By: #### L AB90 #### LEON SLOAN ([id number]) [facility] ([facility]) [address] [place] [address] LIPID PANELon 03-20-2024 CHOL/HDL RATIO 5.0 High <=4.0 [facility]CP Comment on above: Order Comment: Locat ion: Performed By: #### L AB129, PRF453, WPL664, LAB15, LAB18, LAB20 #### LEON SLOAN ([id number]) [facility] ([facility]) [address] [facility], [address] [address] Cholesterol [Mass/Vol] 134 mg/dL Normal <=200 [facility]CP Comment on above: Order Comment: Locat ion: Result Comment: Low- risk levels (desirable) < 200 mg/dL Moderate-risk levels (borderline) 200 to 239 mg/dL High-risk levels > or = 240 mg/dL Performed By: #### L AB129, EIZ864, BKG194, LAB15, LAB18, LAB20 #### LEON SLOAN ([id number]) [facility] ([facility]) [address] [place] [address] Cholesterol in HDL [Mass/Vol] 27 mg/dL Low >60 [facility] Comment on above: Order Comment: Locat ion: Performed By: #### L AB129, FWB867, SOS015, LAB15, LAB18, LAB20 #### LEON SLOAN ([id number]) [facility] ([facility]) [address] [address] Cholesterol in LDL [Mass/Vol] 84 mg/dL Normal <=130 [facility] Comment on above: Order Comment: Locat ion: Performed By: #### L AB129, SWT363, NNR570, LAB15, LAB18, LAB20 #### LEON SLOAN ([id number]) [facility] ([facility]) [address] [address] NON-HDL CHOL 107 Normal [facility] Comment on above: Order Comment: Locat ion: Result Comment: LDL and Non-HDL goal dependent upon individual risk Performed By: #### L AB129, ZDL419, PJB773, LAB15, LAB18, LAB20 #### LEON SLOAN ([id number]) [facility] ([facility]) [address] [address] Triglyceride [Mass/Vol] 114 mg/dL Normal <=150 [facility]CP Comment on above: Order Comment: Locat ion: Performed By: #### L AB129, MUY803, OZF971, LAB15, LAB18, LAB20 #### LEON SLOAN ([id number]) [facility] ([facility]) [address] [facility], [address] [place] [address] VLDL-CALC 22.8 mg/dl Normal 0-30 [facility] Comment on above: Order Comment: Locat ion: Performed By: #### L AB129, LMZ285, NMO744, LAB15, LAB18, LAB20 #### LEON SLOAN ([id number]) [facility] ([facility]) [address] [facility], [address] [address] MAGNESIUMon 03-20-2024 Magnesium [Mass/Vol] 1.7 mg/dL Normal 1.6-2.6 [facility] Comment on above: Order Comment: Locat ion: Performed By: #### L AB129, XOR646, KJH150, LAB15, LAB18, LAB20 #### LEON SLOAN ([id number]) [facility] ([facility]) [address] [facility], [address] [address] PHOSPHORUSon 03-20-2024 Phosphate [Mass/Vol] 2.9 mg/dL Normal 2.4-5.1 [facility] Comment on above: Order Comment: Locat ion: Performed By: #### L AB129, TFY115, GHF577, LAB15, LAB18, LAB20 #### LEON SLOAN ([id number]) [facility] ([facility]) [address] [facility], [address] [place] [address] SLIDE SCAN IF INDICATEDon COMMENT Normocytic/Normochro carol Normal [facility] Comment on above: Order Comment: Locat ion: Performed By: #### L GO6905, HKY7140 #### LEON SLOAN ([id number]) [facility] ([facility]) [address] [facility], [facility] [address] [place] [address] PLATELET ESTIMATE Decreased Abnormal Adequate [facility] Comment on above: Order Comment: Locat ion: Performed By: #### L [id number], APP5152 #### LEON SLOAN ([id number]) [facility] ([facility]) [address] [facility], [address] [place] [address] TSHon 03-20-2024 TSH 0.879 MIU/mL Normal 0.550-4.78 0 [facility] COPCP Comment on above: Order Comment: Locat ion: Performed By: #### L AB129, XHF866, DDZ389, LAB15, LAB18, LAB20 #### LEON SLOAN ([id number]) [facility] ([facility]) [address] [facility], [address] [place] [address] CT ABDOMEN PELVIS WO CONTRAS Ton 09-25-2023 [...] Hadley Dictated Date: 09/25/2023 02:17 Assigned Physician: Tla Hadley Reviewed and Electronically Signed By: Tal Hadley Signed Date: 09/25/2023 02:23 Workstation ID: [id number] Transcribed By: Self Edit Transcribed Date: 09/25/2023 02:17 Normal [facility] CT Pelvis limited WO contras ton 09-25-2023 [...] By: Self Edit Transcribed Date: 09/25/2023 02:17 [facility] Study observation (narrative) [facility] CT Pelvis limited WO contras tOrdered By: Tal Hadley on 09-25-2023 [facility] Work Phone: PT Coag (PPP) [Time]on 09-25 aPTT Coag (Bld) [Time] 34.7 s Normal 23.3-35.3 Mo [facility] Comment on above: Order Comment: The r ecommended therapeutic INR range for most cardiac indications is 2.0-3.0 For high intensity therapy (i.e. mechanical heart valves), the recommended range is 2.5-3.5 Performed By: #### 5 902-2 #### [facility] [address] [place] [address] INR Coag (PPP) [Relative time] 1.5 {INR} NINF - 5.0 [facility] Interpretation and review of laboratory results Abnormal [facility] PT Coag (Bld) [Time] 17.6 s High [facility] The recommended therapeutic INR range for most cardiac indications is 2.0-3.0 For high intensity therapy (i.e. mechanical heart valves), the recommended range is 2.5-3.5 [facility] aPTT Coag (Bld) [Time]on aPTT Coag (PPP) [Time] 34.7 s Tr [facility] Interpretation and review of laboratory results Normal [facility] Basic metabolic 2000 panelon 09-24-2023 Anion gap [Moles/Vol] 6 mmol/L Normal 6-18 [facility] Comment on above: Performed By: #### 2 4321-2 #### [facility] [address] [place] [address] Calcium [Mass/Vol] 9.3 mg/dL Normal 8.9-10.3 [facility] Comment on above: Performed By: #### 2 4321-2 #### [facility] [address] [place] [address] Chloride [Moles/Vol] 101 mmol/L Normal 98-107 [facility] Comment on above: Performed By: #### 2 4321-2 #### [facility] [address] [place] [address] CO2 [Moles/Vol] 27 mmol/L Normal 22-32 [facility] Comment on above: Performed By: #### 2 4321-2 #### [facility] [address] [place] [address] Creatinine [Mass/Vol] 0.64 mg/dL Normal 0.60-1.30 [facility] Comment on above: Performed By: #### 2 4321-2 #### [facility] [address] [place] [address] GFR/1.73 sq M.predicted among non-blacks MDRD (S/P/Bld) [Vol rate/Area] 119 mL/min/{1.73_m2} Normal >=60 [facility] Comment on above: Result Comment: Calc ulation based on the?Chronic Kidney Disease Epidemiology Collaboration (CKD-EPI) equation refit?without adjustment for race. Performed By: #### 2 4321-2 #### [facility] [address] [place] [address] Glucose [Mass/Vol] 178 mg/dL High 70-99 [facility] Comment on above: Performed By: #### 2 4321-2 #### [facility] [address] [place] [address] Potassium [Moles/Vol] 4.0 mmol/L Normal 3.6-5.1 [facility] Comment on above: Performed By: #### 2 4321-2 #### [facility] [address] [place] [address] Sodium [Moles/Vol] 134 mmol/L Low 136-145 [facility] Comment on above: Performed By: #### 2 4321-2 #### [facility] [address] [place] [address] Urea nitrogen [Mass/Vol] 8 mg/dL Normal 8-20 [facility] Comment on above: Performed By: #### 2 4321-2 #### [facility] [address] [place] [address] Urea nitrogen/Creatinine [Mass ratio] 12.5 mg/mg Normal 12.0-20.0 [facility] Comment on above: Performed By: #### 2 4321-2 #### [facility] [address] [place] [address] Anion gap [Moles/Vol] 6 mmol/L 6 - 18 [facility] Calcium [Mass/Vol] 9.3 mg/dL 8.9 - 10. 3 mg/dL [facility] Chloride [Moles/Vol] 101 mmol/L 98 - 10 7 mmol/L [facility] CO2 [Moles/Vol] 27 mmol/L 22 - 32 mmol/L [facility] Creatinine [Mass/Vol] 0.64 mg/dL 0.60 - 1.30 mg/dL [facility] GFR/1.73 sq M.predicted among non-blacks MDRD (S/P/Bld) [Vol rate/Area] 119 mL/min/{1.73_m2} - PINF T [facility] Comment on above: Calculation based on the Chronic Kidney Disease Epidemiology Collaboration (CKD-EPI) equation refit without adjustment for race. Glucose [Mass/Vol] 178 mg/dL High 70 - 99 mg/dL [facility] Interpretation and review of laboratory results Abnormal [facility] Potassium [Moles/Vol] 4.0 mmol/L 3.6 - 5.1 mmol/L [facility] Sodium [Moles/Vol] 134 mmol/L Low 136 - 145 mmol/L [facility] Urea nitrogen [Mass/Vol] 8 mg/dL 8 - 20 mg/dL [facility] Urea nitrogen/Creatinine [Mass ratio] 12.5 mg/mg 12.0 - 20.0 [facility] Hemogram and platelets WO di fferential panel (Bld)on 09-24-2023 Basophils (Bld) [#/Vol] 0.07 10*3/uL Normal 0.00-0.20 [facility] Comment on above: Performed By: #### 2 4317-0 #### [facility] [address] [place] [address] Basophils/100 WBC (Bld) 1.6 % Normal 0.0-2.0 [facility] Comment on above: Performed By: #### 2 4317-0 #### [facility] [address] [place] [address] Eosinophils (Bld) [#/Vol] 0.23 10*3/uL Normal 0.00-0.7 0 [facility] Comment on above: Performed By: #### 2 4317-0 #### [facility] [address] [place] [address] Eosinophils/100 WBC (Bld) 5.4 % Normal 0.0-7.0 [facility] Comment on above: Performed By: #### 2 4316-0 #### [facility] [address] [place] [address] Erythrocyte distribution width (RBC) [Ratio] 18.4 % High 11.0-14.8 [facility] Comment on above: Performed By: #### 2 7-0 #### [facility] [address] [place] [address] Hematocrit (Bld) [Volume fraction] 38.5 % Low 39.0-49.0 [facility] Comment on above: Performed By: #### 2 7-0 #### [facility] [address] [place] [address] Hemoglobin (Bld) [Mass/Vol] 12.7 g/dL Low 13.5-17.5 [facility] Comment on above: Performed By: #### 2 7-0 #### [facility] [address] [place] [address] Immature granulocytes (Bld) [#/Vol] 0.01 10*3/uL Normal 0.00-0.10 [facility] Comment on above: Performed By: #### 2 4317-0 #### [facility] [address] [place] [address] Immature granulocytes/100 WBC (Bld) 0.2 % Normal 0.0-1.2 [facility] Comment on above: Performed By: #### 2 4317-0 #### [facility] [address] [place] [address] Lymphocytes (Bld) [#/Vol] 1.14 10*3/uL Normal 1.00-4.8 0 [facility] Comment on above: Performed By: #### 2 4317-0 #### [facility] [address] [place] [address] Lymphocytes/100 WBC (Bld) 26.8 % Normal 17.9-49.6 [facility] Comment on above: Performed By: #### 2 7-0 #### [facility] [address] [place] [address] MCH 28.9 pcg Normal 27.0-34.0 [facility] Comment on above: Performed By: #### 2 4316-0 #### [facility] [address] [place] [address] MCHC (RBC) [Mass/Vol] 33.0 g/dL Normal 30.8-35.3 [facility] Comment on above: Performed By: #### 2 7-0 #### [facility] [address] [place] [address] MCV (RBC) [Entitic vol] 87.5 fL Normal 80.0-97.0 [facility] Comment on above: Performed By: #### 2 4317-0 #### [facility] [address] [place] [address] Monocytes (Bld) [#/Vol] 0.73 10*3/uL Normal 0.00-0.90 [facility] Comment on above: Performed By: #### 2 4317-0 #### [facility] [address] [place] [address] Monocytes/100 WBC (Bld) 17.1 % Normal 4.0-23.0 [facility] Comment on above: Performed By: #### 2 4317-0 #### [facility] [address] [place] [address] Neutrophils Absolute 2.08 K/mcL Normal 1.80-7.70 [facility] t [facility] Comment on above: Performed By: #### 2 4317-0 #### [facility] [address] [place] [address] Neutrophils/100 WBC (Bld) 48.9 % Normal 38.1-75.5 [facility] Comment on above: Performed By: #### 2 4317-0 #### [facility] [address] [place] [address] Platelet mean volume (Bld) [Entitic vol] 11.0 fL Normal 6.2-12.1 [facility] Comment on above: Performed By: #### 2 4317-0 #### [facility] [address] [place] [address] Platelets (Bld) [#/Vol] 85 10*3/uL Low 142-424 [facility] Comment on above: Result Comment: Resu lts confirmed by slide review. Performed By: #### 2 4317-0 #### [facility] [address] [place] [address] RBC (Bld) [#/Vol] 4.40 10*6/uL Normal 4.30-5.70 [facility] Comment on above: Performed By: #### 2 4317-0 #### [facility] [address] [place] [address] WBC (Bld) [#/Vol] 4.3 10*3/uL Low 4.6-10.2 [facility] Comment on above: Performed By: #### 2 4317-0 #### [facility] [address] [place] [address] Hemogram and platelets WO di fferential panel [...] Interpretation and review of laboratory results Abnormal [facility] Lymphocytes (Bld) [#/Vol] 1.14 10*3/uL [facility] Lymphocytes/100 WBC (Bld) 26.8 % 17 .9 - 49.6 % [facility] MCH (RBC) [Entitic mass] 28.9 pg [facility] MCHC (RBC) [Mass/Vol] 33.0 g/dL 30.8 - 35.3 g/dL [facility] MCV (RBC) [Entitic vol] 87.5 fL T [facility] Monocytes (Bld) [#/Vol] 0.73 10*3/uL [facility] Monocytes/100 WBC (Bld) 17.1 % 4.0 - 23.0 % [facility] Neutrophils (Bld) [#/Vol] 2.08 10*3/uL [facility] Neutrophils/100 WBC (Bld) 48.9 % 38 .1 - 75.5 % [facility] Platelet mean volume (Bld) [Entitic vol] 11.0 fL [facility] Platelets (Bld) [#/Vol] 85 10*3/uL Low [facility] Comment on above: Results confirmed by slide review. RBC (Bld) [#/Vol] 4.40 10*6/uL [facility] WBC (Bld) [#/Vol] 4.3 10*3/uL Low [facility] - Specimen inform ationon 09-24-2023 Specimen source Nom (Unsp spec) Hold for add-ons. [facility] Comment on above: Auto resulted. No Panel Informationon 09-24 [facility] Urinalysis dipstick W Reflex Microscopic panel (U)on 09-24-2023 Bacteria, Urine Rare Abnormal None [facility] Comment on above: Performed By: #### 5 7020-0 #### [facility] [address] [place] [address] Bilirubin, Urine Negative Normal Negative [facility] Comment on above: Performed By: #### 5 7020-0 #### [facility] [address] [place] [address] Blood, Urine 3+ Abnormal Negative, Trace [facility] Comment on above: Performed By: #### 5 7020-0 #### [facility] [address] [place] [address] Clarity (U) Clear Normal Clear [facility] Comment on above: Performed By: #### 5 7020-0 #### [facility] [address] [place] [address] Color (U) Colorless Abnormal Yellow [facility] Comment on above: Performed By: #### 5 7020-0 #### [facility] [address] [place] [address] Glucose Ql (U) >1000 Abnormal Normal [facility] Comment on above: Performed By: #### 5 7020-0 #### [facility] [address] [place] [address] Ketones Ql (U) Negative Normal Negative [facility] Comment on above: Performed By: #### 5 7020-0 #### [facility] [address] [place] [address] Leukocytes, Urine Negative Normal Negative [facility] Comment on above: Performed By: #### 5 7020-0 #### [facility] [address] [place] [address] Nitrite, Urine Negative Normal Negative [facility] Comment on above: Performed By: #### 5 70-0 #### [facility] [address] [place] [address] pH (U) 6.5 [pH] Normal 5.0-8.0 [facility] Comment on above: Performed By: #### 5 70-0 #### [facility] [address] [place] [address] Protein, Urine Negative Normal Negative [facility] Comment on above: Performed By: #### 5 70-0 #### [facility] [address] [place] [address] RBC LM.HPF (Urine sed) [#/Area] 247 /[HPF] High 0-5 [facility] Comment on above: Performed By: #### 5 7020-0 #### [facility] [address] [place] [address] Specific [place] Urine 1.010 Normal 1.002 -1.03 0 [facility] Comment on above: Performed By: #### 5 70-0 #### [facility] [address] [place] [address] Urobilinogen, Urine Normal Normal Normal [facility] Comment on above: Performed By: #### 5 7020-0 #### [facility] [address] [place] [address] WBC LM.HPF (Urine sed) [#/Area] /[HPF] Normal 0-5 [facility] Comment on above: Performed By: #### 5 7020-0 #### [facility] [address] [place] [address] Bacteria LM.HPF (Urine sed) [#/Area] Rare Abnormal None /HPF [facility] Bilirubin Ql (U) Negative Negative mg/dL [facility] Clarity (U) Clear Clear [facility] Color (U) Colorless Abnormal Yellow [facility] Glucose Ql (U) >1000 Abnormal Normal mg/dL [facility] Hemoglobin Ql (U) 3+ Abnormal Negative, Trace [facility] Interpretation and review of laboratory results Abnormal [facility] Ketones (U) [Mass/Vol] Negative Negat fabricio mg/dL [facility] Leukocyte esterase Test strip Ql (U) Negative Negative WBCs/mcL [facility] Nitrite Ql (U) Negative Negative [facility] pH (U) 6.5 [pH] 5.0 - 8.0 pH [facility] Protein (U) [Mass/Vol] Negative Negat fabricio mg/dL [facility] RBC LM.HPF (Urine sed) [#/Area] 247 /[HPF] High [facility] Specific gravity (U) [Rel density] 1.010 1.002 - 1.030 [facility] Urobilinogen (U) [Mass/Vol] Normal Normal mg/dL [facility] WBC LM.HPF (Urine sed) [#/Area] [facility] (COPC) on 08-03-2023 Creatinine [Mass/Vol] 0.59 mg/dL Low 0.76-1.27 [facility] Comment on above: Order Comment: Anthony feng performed at: [] [facility], [address] [place] [address], [phone], , Commercial Lender: Tres Cm, PhD Performed By: #### C 121, C301, C406, C4176, C116, C48, C8, C45, C400, C115 #### Refer to report for performing lab GFR/1.73 sq M.predicted among non-blacks MDRD (S/P/Bld) [Vol rate/Area] 122 mL/min/{1.73_m2} Invalid Interpretation Code >59 [facility] Comment on above: Order Comment: Testi ng performed at: [] [facility], [address] [place] [address], [phone], , Commercial Lender: Tres Cm, PhD Performed By: #### C 121, C301, C406, C4176, C116, C48, C8, C45, C400, C115 #### Refer to report for performing lab Urea nitrogen/Creatinine [Mass ratio] 15 mg/mg Invalid Interpretation Code 9-20 [facility] Comment on above: Order Comment: Testi ng performed at: [] [facility], [address] [place] [address], [phone], , Commercial Lender: Tres Cm, PhD Performed By: #### C 121, C301, C406, C4176, C116, C48, C8, C45, C400, C115 #### Refer to report for performing lab Potassium [Moles/Vol] 3.9 mmol/L Invalid Interpretation Code 3.5-5.2 [facility] Comment on above: Order Comment: Testi ng performed at: [] [facility], [address] [place] [address], [phone], , Commercial Lender: Tres Cm, PhD Performed By: #### C 121, C301, C406, C4176, C116, C48, C8, C45, C400, C115 #### Refer to report for performing lab Chloride [Moles/Vol] 101 mmol/L Invalid Interpretation Code 96-106 [facility] Comment on above: Order Comment: Testi ng performed at: [] [facility], [address] [place], [address], , Commercial Lender: Tres Cm, PhD Performed By: #### C 121, C301, C406, C4176, C116, C48, C8, C45, C400, C115 #### Refer to report for performing lab Sodium [Moles/Vol] 136 mmol/L Invalid Interpretation Code 134-144 [facility] Comment on above: Order Comment: Testi ng performed at: [] [facility], [address] [place] [address], [address], , Commercial Lender: Tres Cm, PhD Performed By: #### C 121, C301, C406, C4176, C116, C48, C8, C45, C400, C115 #### Refer to report for performing lab Urea nitrogen [Mass/Vol] 9 mg/dL Invalid Interpretation Code 6-24 [facility] Comment on above: Order Comment: Testi ng performed at: [] [facility], [address] [place] [address], [address], , Commercial Lender: Tres Cm, PhD Performed By: #### C 121, C301, C406, C4176, C116, C48, C8, C45, C400, C115 #### Refer to report for performing lab Calcium [Mass/Vol] 9.0 mg/dL Invalid Interpretation Code 8.7-10.2 [facility] Comment on above: Order Comment: Testi ng performed at: [] [facility], [address] [place] [address], [address], , Commercial Lender: Tres Cm, PhD Performed By: #### C 121, C301, C406, C4176, C116, C48, C8, C45, C400, C115 #### Refer to report for performing lab CO2 [Moles/Vol] 22 mmol/L Invalid Interpretation Code 20-29 [facility] Comment on above: Order Comment: Testi ng performed at: [] [facility], [address] [place] [address], [address], , Commercial Lender: Tres Cm, PhD Performed By: #### C 121, C301, C406, C4176, C116, C48, C8, C45, C400, C115 #### Refer to report for performing lab Glucose [Mass/Vol] 98 mg/dL Invalid Interpretation Code 70-99 [facility] Comment on above: Order Comment: Testi ng performed at: [] [facility], [address] [place] [address], [address], , Commercial Lender: Tres Cm, PhD Performed By: #### C 121, C301, C406, C4176, C116, C48, C8, C45, C400, C115 #### Refer to report for performing lab CBC with Diffon 08-03-2023 Basophils (Bld) [#/Vol] 0.1 10*3/uL Invalid Interpretation Code 0.0-0.2 [facility] Comment on above: Order Comment: Testi ng performed at: [] [facility], [address] [place] [address], [address], , Commercial Lender: Tres Cm, PhD Performed By: #### C 121, C301, C406, C4176, C116, C48, C8, C45, C400, C115 #### Refer to report for performing lab Basophils/100 WBC (Bld) 2 % Invalid Interpretation Code Not Estab. [facility] Comment on above: Order Comment: Testi ng performed at: [] [facility], [address] [place] [address], [address], , Commercial Lender: Tres Cm, PhD Performed By: #### C 121, C301, C406, C4176, C116, C48, C8, C45, C400, C115 #### Refer to report for performing lab Eosinophils (Bld) [#/Vol] 0.5 10*3/uL High 0.0-0.4 [facility] Comment on above: Order Comment: Testi ng performed at: [] [facility], [address] [place] [address], [address], , Commercial Lender: Tres Cm, PhD Performed By: #### C 121, C301, C406, C4176, C116, C48, C8, C45, C400, C115 #### Refer to report for performing lab Eosinophils/100 WBC (Bld) 10 % Invali d Interpretation Code Not Estab. [facility] Comment on above: Order Comment: Testi ng performed at: [] [facility], [address] [place] [address], [address], , Commercial Lender: Ters Cm, PhD Performed By: #### C 121, C301, C406, C4176, C116, C48, C8, C45, C400, C115 #### Refer to report for performing lab Erythrocyte distribution width (RBC) [Ratio] 15.5 % High 11.6-15.4 [facility] Comment on above: Order Comment: Testi ng performed at: [] [facility], [address] [place] [address], [address], , Commercial Lender: Tres Cm, PhD Performed By: #### C 121, C301, C406, C4176, C116, C48, C8, C45, C400, C115 #### Refer to report for performing lab Hematocrit (Bld) [Volume fraction] 36.2 % Low 37.5-51.0 [facility] Comment on above: Order Comment: Testi ng performed at: [] [facility], [address] [place] [address], [address], , Commercial Lender: Tres Cm, PhD Performed By: #### C 121, C301, C406, C4176, C116, C48, C8, C45, C400, C115 #### Refer to report for performing lab Hematology Comments: Note: Invalid Interpretation Code [facility] Comment on above: Order Comment: Testi ng performed at: [] [facility], [address] [place] [address], [address], , Commercial Lender: Tres Cm, PhD Result Comment: Veri fied by microscopic examination. A hand-written panel/profile was received from your office. In accordance with the [facility] Ambiguous Test Code Policy dated May 2003, we have assigned CBC with Differential/Platelet, Test Code #[id number] to this request. If this is not the testing you wished to receive on this specimen, please contact the [facility] Client Inquiry/ Technical Services Department to clarify the test order. We appreciate your business. Performed By: #### C 121, C301, C406, C4176, C116, C48, C8, C45, C400, C115 #### Refer to report for performing lab Hemoglobin (Bld) [Mass/Vol] 11.8 g/dL Low 13.0-17.7 [facility] Comment on above: Order Comment: Testi ng performed at: [] [address], [address], , Commercial Lender: Tres Cm, PhD Performed By: #### C 121, C301, C406, C4176, C116, C48, C8, C45, C400, C115 #### Refer to report for performing lab Immature Grans (Abs) 0.0 x10E3/uL Invalid Interpretation Code 0.0-0.1 [facility] Comment on above: Order Comment: Testi ng performed at: [] [address], [address], , Commercial Lender: Tres Cm, PhD Performed By: #### C 121, C301, C406, C4176, C116, C48, C8, C45, C400, C115 #### Refer to report for performing lab Immature granulocytes/100 WBC (Bld) 0 % Invalid Interpretation Code Not Estab. [facility] Comment on above: Order Comment: Testi ng performed at: [] [facility], [address] [place] [address], [address], , Commercial Lender: Tres Cm, PhD Performed By: #### C 121, C301, C406, C4176, C116, C48, C8, C45, C400, C115 #### Refer to report for performing lab Lymphocytes (Bld) [#/Vol] 1.1 10*3/uL Invali d Interpretation Code 0.7-3.1 [facility] Comment on above: Order Comment: Testi ng performed at: [] [address], [address], , Commercial Lender: Tres Cm, PhD Performed By: #### C 121, C301, C406, C4176, C116, C48, C8, C45, C400, C115 #### Refer to report for performing lab Lymphocytes/100 WBC (Bld) 23 % Invali d Interpretation Code Not Estab. [facility] Comment on above: Order Comment: Testi ng performed at: [] [address], [address], , Commercial Lender: Tres Cm, PhD Performed By: #### C 121, C301, C406, C4176, C116, C48, C8, C45, C400, C115 #### Refer to report for performing lab MCH (RBC) [Entitic mass] 27.8 pg Invalid Interpretation Code 26.6-33.0 [facility] Comment on above: Order Comment: Testi ng performed at: [] [address], [address], , Commercial Lender: Tres Cm, PhD Performed By: #### C 121, C301, C406, C4176, C116, C48, C8, C45, C400, C115 #### Refer to report for performing lab MCHC (RBC) [Mass/Vol] 32.6 g/dL Invalid Interpretation Code 31.5-35.7 [facility] Comment on above: Order Comment: Testi ng performed at: [] [facility], [address] [place] [address], [address], , Commercial Lender: Tres Cm, PhD Performed By: #### C 121, C301, C406, C4176, C116, C48, C8, C45, C400, C115 #### Refer to report for performing lab MCV (RBC) [Entitic vol] 85 fL Invalid Interpretation Code 79-97 [facility] Comment on above: Order Comment: Testi ng performed at: [] [facility], [address] [place] [address], [address], , Commercial Lender: Tres Cm, PhD Performed By: #### C 121, C301, C406, C4176, C116, C48, C8, C45, C400, C115 #### Refer to report for performing lab Monocytes (Bld) [#/Vol] 0.7 10*3/uL Invalid Interpretation Code 0.1-0.9 [facility] Comment on above: Order Comment: Testi ng performed at: [] [facility], [address] [place] [address], [address], , Commercial Lender: Tres Cm, PhD Performed By: #### C 121, C301, C406, C4176, C116, C48, C8, C45, C400, C115 #### Refer to report for performing lab Monocytes/100 WBC (Bld) 15 % Invalid Interpretation Code Not Estab. [facility] Comment on above: Order Comment: Testi ng performed at: [] [facility], [address] [place] [address], [address], , Commercial Lender: Tres Cm, PhD Performed By: #### C 121, C301, C406, C4176, C116, C48, C8, C45, C400, C115 #### Refer to report for performing lab Neutrophils (Absolute) 2.4 x10E3/uL Invalid Interpretation Code 1.4-7.0 [facility] Comment on above: Order Comment: Testi ng performed at: [] [facility], [address] [place] [address], [address], , Commercial Lender: Tres Cm, PhD Performed By: #### C 121, C301, C406, C4176, C116, C48, C8, C45, C400, C115 #### Refer to report for performing lab Neutrophils/100 WBC (Bld) 50 % Invali d Interpretation Code Not Estab. [facility] Comment on above: Order Comment: Testi ng performed at: [] [facility], [address] [place] [address], [address], , Commercial Lender: Tres Cm, PhD Performed By: #### C 121, C301, C406, C4176, C116, C48, C8, C45, C400, C115 #### Refer to report for performing lab Platelets (Bld) [#/Vol] 83 10*3/uL Critically low 150-450 [facility] Comment on above: Order Comment: Testi ng performed at: [] [facility], [address] [place] [address], [address], , Commercial Lender: Tres Cm, PhD Result Comment: Plat elet count verified by examination of peripheral blood smear. Performed By: #### C 121, C301, C406, C4176, C116, C48, C8, C45, C400, C115 #### Refer to report for performing lab RBC (Bld) [#/Vol] 4.25 10*6/uL Invalid Interpretation Code 4.14-5.80 [facility] Comment on above: Order Comment: Testi ng performed at: [] [facility], [address] [place] [address], [address], , Commercial Lender: Tres Cm, PhD Performed By: #### C 121, C301, C406, C4176, C116, C48, C8, C45, C400, C115 #### Refer to report for performing lab WBC (Bld) [#/Vol] 4.8 10*3/uL Invalid Interpretation Code 3.4-10.8 [facility] Comment on above: Order Comment: Testi ng performed at: [] [facility], [address] [place] [address], [address], , Commercial Lender: Tres Cm, PhD Performed By: #### C 121, C301, C406, C4176, C116, C48, C8, C45, C400, C115 #### Refer to report for performing lab Hepatic Panel (COPC)on 08-03 Bilirubin.indirect [Mass/Vol] 0.67 mg/dL High 0.00-0.40 [facility] Comment on above: Order Comment: Testi ng performed at: [] [facility], [address] [place] [address], [address], , Commercial Lender: Tres Cm, PhD Performed By: #### C 121, C301, C406, C4176, C116, C48, C8, C45, C400, C115 #### Refer to report for performing lab ALT [Catalytic activity/Vol] 39 U/L Invalid Interpretation Code 0-44 [facility] Comment on above: Order Comment: Testi ng performed at: [] [facility], [address] [place] [address], [address], , Commercial Lender: Tres Cm, PhD Performed By: #### C 121, C301, C406, C4176, C116, C48, C8, C45, C400, C115 #### Refer to report for performing lab AST [Catalytic activity/Vol] 66 U/L High 0-40 [facility] Comment on above: Order Comment: Testi ng performed at: [] [facility], [address] [place], [address], , Commercial Lender: Tres Cm, PhD Performed By: #### C 121, C301, C406, C4176, C116, C48, C8, C45, C400, C115 #### Refer to report for performing lab Albumin [Mass/Vol] 3.0 g/dL Low 4.1-5.1 [facility] Comment on above: Order Comment: Testi ng performed at: [] [facility], [address] [place], [address], , Commercial Lender: Tres Cm, PhD Performed By: #### C 121, C301, C406, C4176, C116, C48, C8, C45, C400, C115 #### Refer to report for performing lab ALP [Catalytic activity/Vol] 143 U/L High 44-121 [facility] Comment on above: Order Comment: Testi ng performed at: [] [facility], [address] [place] [address], [address], , Commercial Lender: Tres Cm, PhD Performed By: #### C 121, C301, C406, C4176, C116, C48, C8, C45, C400, C115 #### Refer to report for performing lab Bilirubin [Mass/Vol] 1.8 mg/dL High 0.0-1.2 [facility] Comment on above: Order Comment: Testi ng performed at: [] [facility], [address] [place] [address], [address], , Commercial Lender: Tres Cm, PhD Performed By: #### C 121, C301, C406, C4176, C116, C48, C8, C45, C400, C115 #### Refer to report for performing lab Protein [Mass/Vol] 7.0 g/dL Invalid Interpretation Code 6.0-8.5 [facility] Comment on above: Order Comment: Testi ng performed at: [] [facility], [address] [place], [address], , Commercial Lender: Tres Cm, PhD Performed By: #### C 121, C301, C406, C4176, C116, C48, C8, C45, C400, C115 #### Refer to report for performing lab HgbA1C ([facility])on 08-03-2023 HbA1c (Bld) [Mass fraction] 6.6 % High 4.8-5.6 [facility] Comment on above: Order Comment: Testi ng performed at: [] [facility], [address] [place] [address], [address], , Commercial Lender: Tres Cm, PhD Result Comment: Pred iabetes: 5.7 - 6.4 Diabetes: >6.4 Glycemic control for adults with diabetes: <7.0 Performed By: #### C 121, C301, C406, C4176, C116, C48, C8, C45, C400, C115 #### Refer to report for performing lab Lipid Panel ([facility])on 023 Cholesterol in HDL [Mass/Vol] 37 mg/dL Low >39 [facility] Comment on above: Order Comment: Testi ng performed at: [] [facility], [address] [place] [address], [address], , Commercial Lender: Tres Cm, PhD Performed By: #### C 121, C301, C406, C4176, C116, C48, C8, C45, C400, C115 #### Refer to report for performing lab LDL Chol Calc ([facility]) 120 mg/dL High 0-99 [facility] Comment on above: Order Comment: Testi ng performed at: [] [facility], [address] [place] [address], [address], , Commercial Lender: Tres Cm, PhD Performed By: #### C 121, C301, C406, C4176, C116, C48, C8, C45, C400, C115 #### Refer to report for performing lab VLDL Cholesterol Elliott 29 mg/dL Invalid Interpretation Code 5-40 [facility] Comment on above: Order Comment: Testi ng performed at: [] [facility], [address] [place] [address], [address], , Commercial Lender: Tres Cm, PhD Performed By: #### C 121, C301, C406, C4176, C116, C48, C8, C45, C400, C115 #### Refer to report for performing lab Cholesterol [Mass/Vol] 186 mg/dL Invalid Interpretation Code 100-199 [facility] Comment on above: Order Comment: Testi ng performed at: [] [facility], [address] [place] [address], [address], , Commercial Lender: Tres Cm, PhD Performed By: #### C 121, C301, C406, C4176, C116, C48, C8, C45, C400, C115 #### Refer to report for performing lab Triglyceride [Mass/Vol] 164 mg/dL High 0-149 [facility] Comment on above: Order Comment: Testi ng performed at: [] [facility], [address] [place] [address], [address], , Commercial Lender: Tres Cm, PhD Performed By: #### C 121, C301, C406, C4176, C116, C48, C8, C45, C400, C115 #### Refer to report for performing lab Magnesium (COPC)on 3 Magnesium [Mass/Vol] 1.9 mg/dL Invalid Interpretation Code 1.6-2.3 [facility] Comment on above: Order Comment: Testi ng performed at: [] [facility], [address] [place] [address], [address], , Commercial Lender: Tres Cm, PhD Performed By: #### C 121, C301, C406, C4176, C116, C48, C8, C45, C400, C115 #### Refer to report for performing lab Phosphorus (COPC)on 08-03-20 23 Phosphate [Mass/Vol] 3.4 mg/dL Invalid Interpretation Code 2.8-4.1 [facility] Comment on above: Order Comment: Testi ng performed at: [] [facility], [address] [place] [address], [address], , Commercial Lender: Tres Cm, PhD Performed By: #### C 121, C301, C406, C4176, C116, C48, C8, C45, C400, C115 #### Refer to report for performing lab TSH ([facility])on 08-03-2023 TSH 1.580 uIU/mL Invalid Interpretation Code 0.450-4.50 0 [facility] Comment on above: Order Comment: Testi ng performed at: [] [facility], [address] [place] [address], [address], , Commercial Lender: Tres Cm, PhD Performed By: #### C 121, C301, C406, C4176, C116, C48, C8, C45, C400, C115 #### Refer to report for performing lab Uric Acid ([facility])on 3 Urate [Mass/Vol] 3.7 mg/dL Low 3.8-8.4 [facility] Comment on above: Order Comment: Testi ng performed at: [] [facility], [address] [place] [address], [address], , Commercial Lender: Tres Cm, PhD Result Comment: Ther apeutic target for gout patients: <6.0 Performed By: #### C 121, C301, C406, C4176, C116, C48, C8, C45, C400, C115 #### Refer to report for performing lab Urinalysis and Microscopic w / Rfx to Cx (COPC)on 08-03-2023 Bacteria None seen Invalid Interpretation Code None seen/Few [facility] Comment on above: Order Comment: Testi ng performed at: [] [facility], [address] [place] [address], [address], , Commercial Lender: Tres Cm, PhD Performed By: #### C 121, C301, C406, C4176, C116, C48, C8, C45, C400, C115 #### Refer to report for performing lab Casts None seen Invalid Interpretation Code None seen [facility] Comment on above: Order Comment: Testi ng performed at: [] [address], [address], , Commercial Lender: Tres Cm, PhD Performed By: #### C 121, C301, C406, C4176, C116, C48, C8, C45, C400, C115 #### Refer to report for performing lab Epithelial cells LM Ql (Urine sed) None seen Invalid Interpretation Code 0 - 10 [facility] Comment on above: Order Comment: Testi ng performed at: [] [facility], [address] [place] [address], [address], , Commercial Lender: Tres Cm, PhD Performed By: #### C 121, C301, C406, C4176, C116, C48, C8, C45, C400, C115 #### Refer to report for performing lab RBC 0-2 Invalid Interpretation Code 0 - 2 [facility] Comment on above: Order Comment: Testi ng performed at: [] [address], [address], , Commercial Lender: Tres Cm, PhD Performed By: #### C 121, C301, C406, C4176, C116, C48, C8, C45, C400, C115 #### Refer to report for performing lab WBC None seen Invalid Interpretation Code 0 - 5 [facility] Comment on above: Order Comment: Testi ng performed at: [] [address], [address], , Commercial Lender: Tres Cm, PhD Performed By: #### C 121, C301, C406, C4176, C116, C48, C8, C45, C400, C115 #### Refer to report for performing lab Appearance (U) Clear Invalid Interpretation Code Clear [facility] Comment on above: Order Comment: Testi ng performed at: [] [facility], [address] [place] [address], [address], , Commercial Lender: Tres Cm, PhD Performed By: #### C 121, C301, C406, C4176, C116, C48, C8, C45, C400, C115 #### Refer to report for performing lab Bilirubin Ql (U) Negative Invalid Interpretation Code Negative [facility] Comment on above: Order Comment: Testi ng performed at: [] [facility], [address] [place] [address], [address], , Commercial Lender: Tres Cm, PhD Performed By: #### C 121, C301, C406, C4176, C116, C48, C8, C45, C400, C115 #### Refer to report for performing lab Color (U) Yellow Invalid Interpretation Code Yellow [facility] Comment on above: Order Comment: Testi ng performed at: [] [facility], [address] [place] [address], [address], , Commercial Lender: Tres Cm, PhD Performed By: #### C 121, C301, C406, C4176, C116, C48, C8, C45, C400, C115 #### Refer to report for performing lab Glucose Ql (U) 3+ Abnormal Negative [facility] Comment on above: Order Comment: Testi ng performed at: [] [facility], [address] [place] [address], [address], , Commercial Lender: Tres Cm, PhD Performed By: #### C 121, C301, C406, C4176, C116, C48, C8, C45, C400, C115 #### Refer to report for performing lab Ketones Ql (U) Negative Invalid Interpretation Code Negative [facility] Comment on above: Order Comment: Testi ng performed at: [] [facility], [address] [place] [address], [address], , Commercial Lender: Tres Cm, PhD Performed By: #### C 121, C301, C406, C4176, C116, C48, C8, C45, C400, C115 #### Refer to report for performing lab Microscopic Examination See below: Invalid Interpretation Code [facility] Comment on above: Order Comment: Testi ng performed at: [] [facility], [address] [place] [address], [address], , Commercial Lender: Tres Cm, PhD Result Comment: Micr oscopic was indicated and was performed. Performed By: #### C 121, C301, C406, C4176, C116, C48, C8, C45, C400, C115 #### Refer to report for performing lab Nitrite, Urine Negative Invalid Interpretation Code Negative [facility] Comment on above: Order Comment: Testi ng performed at: [] [facility], [address] [place] [address], [address], , Commercial Lender: Ters Cm, PhD Performed By: #### C 121, C301, C406, C4176, C116, C48, C8, C45, C400, C115 #### Refer to report for performing lab Occult Blood Negative Invalid Interpretation Code Negative [facility] Comment on above: Order Comment: Testi ng performed at: [] [facility], [address] [place] [address], [address], , Commercial Lender: Tres Cm, PhD Performed By: #### C 121, C301, C406, C4176, C116, C48, C8, C45, C400, C115 #### Refer to report for performing lab pH (U) 6.5 [pH] Invalid Interpretation Code 5.0-7.5 [facility] Comment on above: Order Comment: Testi ng performed at: [] [facility], [address] [place] [address], [address], , Commercial Lender: Tres Cm, PhD Performed By: #### C 121, C301, C406, C4176, C116, C48, C8, C45, C400, C115 #### Refer to report for performing lab Protein Ql (U) Negative Invalid Interpretation Code Negative/T race [facility] Comment on above: Order Comment: Testi ng performed at: [] [facility], [address] [place] [address], [address], , Commercial Lender: Tres Cm, PhD Performed By: #### C 121, C301, C406, C4176, C116, C48, C8, C45, C400, C115 #### Refer to report for performing lab Specific gravity (U) [Rel density] 1.013 Invalid Interpretation Code 1.005-1.03 0 [facility] Comment on above: Order Comment: Testi ng performed at: [] [facility], [address] [place] [address], [address], , Commercial Lender: Tres Cm, PhD Performed By: #### C 121, C301, C406, C4176, C116, C48, C8, C45, C400, C115 #### Refer to report for performing lab Urobilinogen,Semi-Qn 0.2 mg/dL Invalid Interpretation Code 0.2-1.0 [facility] Comment on above: Order Comment: Testi ng performed at: [] [facility], [address] [place] [address], [address], , Commercial Lender: Tres Cm, PhD Performed By: #### C 121, C301, C406, C4176, C116, C48, C8, C45, C400, C115 #### Refer to report for performing lab WBC Esterase Negative Invalid Interpretation Code Negative [facility] Comment on above: Order Comment: Testi ng performed at: [] [facility], [address] [place] [address], [address], , Commercial Lender: Tres Cm, PhD Performed By: #### C 121, C301, C406, C4176, C116, C48, C8, C45, C400, C115 #### Refer to report for performing lab Urinalysis and Microscopic w / Rfx to Cx ([facility])on 08-02-2023 Microscopic Examination Comment Normal [facility] Comment on above: Order Comment: Testi ng performed at: [CB] [facility], [address] [place] [address], [address], , Commercial Lender: Tres Cm, PhD Result Comment: Micr oscopic follows if indicated. Performed By: #### C 121, C301, C406, C4176, C116, C48, C8, C45, C400, C115 #### Refer to report for performing lab Urinalysis Reflex Comment Normal [facility] Comment on above: Order Comment: Testi ng performed at: [CB] [facility], [address] [place] [address], [address], , Commercial Lender: Tres Cm, PhD Result Comment: This specimen will not reflex to a Urine Culture. Performed By: #### C 121, C301, C406, C4176, C116, C48, C8, C45, C400, C115 #### Refer to report for performing lab Basic Metabolic Panel (COPC) on 04-05-2023 Creatinine [Mass/Vol] 0.65 mg/dL Low 0.76-1.27 [facility] Comment on above: Order Comment: Testi ng performed at: [] [facility], [address] [place], [address], , Commercial Lender: Tres Cm, PhD Performed By: #### C 121, C301, C406, C4176, C116, C48, C8, C45, C400, C115 #### Refer to report for performing lab GFR/1.73 sq M.predicted among non-blacks MDRD (S/P/Bld) [Vol rate/Area] 119 mL/min/{1.73_m2} Invalid Interpretation Code >59 [facility] Comment on above: Order Comment: Testi ng performed at: [] [facility], [address] [place] [address], [address], , Commercial Lender: Tres Cm, PhD Performed By: #### C 121, C301, C406, C4176, C116, C48, C8, C45, C400, C115 #### Refer to report for performing lab Urea nitrogen/Creatinine [Mass ratio] 9 mg/mg Invalid Interpretation Code 9-20 [facility] Comment on above: Order Comment: Testi ng performed at: [] [facility], [address] [place] [address], [address], , Commercial Lender: Tres Cm, PhD Performed By: #### C 121, C301, C406, C4176, C116, C48, C8, C45, C400, C115 #### Refer to report for performing lab Calcium [Mass/Vol] 8.6 mg/dL Low 8.7-10.2 [facility] Comment on above: Order Comment: Testi ng performed at: [] [facility], [address] [place] [address], [address], , Commercial Lender: Tres Cm, PhD Performed By: #### C 121, C301, C406, C4176, C116, C48, C8, C45, C400, C115 #### Refer to report for performing lab CO2 [Moles/Vol] 25 mmol/L Invalid Interpretation Code 20-29 [facility] Comment on above: Order Comment: Testi ng performed at: [] [facility], [address] [place] [address], [address], , Commercial Lender: Tres Cm, PhD Performed By: #### C 121, C301, C406, C4176, C116, C48, C8, C45, C400, C115 #### Refer to report for performing lab Urea nitrogen [Mass/Vol] 6 mg/dL Invalid Interpretation Code 6-24 [facility] Comment on above: Order Comment: Testi ng performed at: [] [facility], [address] [place] [address], [address], , Commercial Lender: Tres Cm, PhD Performed By: #### C 121, C301, C406, C4176, C116, C48, C8, C45, C400, C115 #### Refer to report for performing lab Glucose [Mass/Vol] 107 mg/dL High 70-99 [facility] Comment on above: Order Comment: Testi ng performed at: [] [facility], [address] [place] [address], [address], , Commercial Lender: Tres Cm, PhD Performed By: #### C 121, C301, C406, C4176, C116, C48, C8, C45, C400, C115 #### Refer to report for performing lab Potassium [Moles/Vol] 3.9 mmol/L Invalid Interpretation Code 3.5-5.2 [facility] Comment on above: Order Comment: Testi ng performed at: [] [facility], [address] [place] [address], [address], , Commercial Lender: Tres Cm, PhD Performed By: #### C 121, C301, C406, C4176, C116, C48, C8, C45, C400, C115 #### Refer to report for performing lab Chloride [Moles/Vol] 102 mmol/L Invalid Interpretation Code 96-106 [facility] Comment on above: Order Comment: Testi ng performed at: [] [facility], [address] [place] [address], [address], , Commercial Lender: Tres Cm, PhD Performed By: #### C 121, C301, C406, C4176, C116, C48, C8, C45, C400, C115 #### Refer to report for performing lab Sodium [Moles/Vol] 137 mmol/L Invalid Interpretation Code 134-144 [facility] Comment on above: Order Comment: Testi ng performed at: [] [facility], [address] [place] [address], [address], , Commercial Lender: Tres Cm, PhD Performed By: #### C 121, C301, C406, C4176, C116, C48, C8, C45, C400, C115 #### Refer to report for performing lab CBC with differential (COPC) on 04-05-2023 Basophils (Bld) [#/Vol] 0.1 10*3/uL Invalid Interpretation Code 0.0-0.2 [facility] Comment on above: Order Comment: Testi ng performed at: [] [facility], [address] [place] [address], [address], , Commercial Lender: Tres Cm, PhD Performed By: #### C 121, C301, C406, C4176, C116, C48, C8, C45, C400, C115 #### Refer to report for performing lab Basophils/100 WBC (Bld) 1 % Invalid Interpretation Code Not Estab. [facility] Comment on above: Order Comment: Testi ng performed at: [] [facility], [address] [place] [address], [address], , Commercial Lender: Tres Cm, PhD Performed By: #### C 121, C301, C406, C4176, C116, C48, C8, C45, C400, C115 #### Refer to report for performing lab Eosinophils (Bld) [#/Vol] 0.4 10*3/uL Invali d Interpretation Code 0.0-0.4 [facility] Comment on above: Order Comment: Testi ng performed at: [] [facility], [address] [place], [address], , Commercial Lender: Tres Cm, PhD Performed By: #### C 121, C301, C406, C4176, C116, C48, C8, C45, C400, C115 #### Refer to report for performing lab Eosinophils/100 WBC (Bld) 9 % Invali d Interpretation Code Not Estab. [facility] Comment on above: Order Comment: Testi ng performed at: [] [facility], [address] [place] [address], [address], , Commercial Lender: Tres Cm, PhD Performed By: #### C 121, C301, C406, C4176, C116, C48, C8, C45, C400, C115 #### Refer to report for performing lab Erythrocyte distribution width (RBC) [Ratio] 16.6 % High 11.6-15.4 [facility] Comment on above: Order Comment: Testi ng performed at: [] [facility], [address] [place] [address], [address], , Commercial Lender: Tres Cm, PhD Performed By: #### C 121, C301, C406, C4176, C116, C48, C8, C45, C400, C115 #### Refer to report for performing lab Hematocrit (Bld) [Volume fraction] 38.0 % Invalid Interpretation Code 37.5-51.0 [facility] Comment on above: Order Comment: Testi ng performed at: [] [facility], [address] [place] [address], [address], , Commercial Lender: Tres Cm, PhD Performed By: #### C 121, C301, C406, C4176, C116, C48, C8, C45, C400, C115 #### Refer to report for performing lab Hematology Comments: Note: Invalid Interpretation Code [facility] Comment on above: Order Comment: Testi ng performed at: [] [facility], [address] [place] [address], [address], , Commercial Lender: Tres Cm, PhD Result Comment: Veri fied by microscopic examination. Performed By: #### C 121, C301, C406, C4176, C116, C48, C8, C45, C400, C115 #### Refer to report for performing lab Hemoglobin (Bld) [Mass/Vol] 12.8 g/dL Low 13.0-17.7 [facility] Comment on above: Order Comment: Testi ng performed at: [] [facility], [address] [place] [address], [address], , Commercial Lender: Tres Cm, PhD Performed By: #### C 121, C301, C406, C4176, C116, C48, C8, C45, C400, C115 #### Refer to report for performing lab Immature Grans (Abs) 0.0 x10E3/uL Invalid Interpretation Code 0.0-0.1 [facility] Comment on above: Order Comment: Testi ng performed at: [] [facility], [address] [place] [address], [address], , Commercial Lender: Tres Cm, PhD Performed By: #### C 121, C301, C406, C4176, C116, C48, C8, C45, C400, C115 #### Refer to report for performing lab Immature granulocytes/100 WBC (Bld) 0 % Invalid Interpretation Code Not Estab. [facility] Comment on above: Order Comment: Testi ng performed at: [] [facility], [address] [place] [address], [address], , Commercial Lender: Tres Cm, PhD Performed By: #### C 121, C301, C406, C4176, C116, C48, C8, C45, C400, C115 #### Refer to report for performing lab Lymphocytes (Bld) [#/Vol] 1.1 10*3/uL Invali d Interpretation Code 0.7-3.1 [facility] Comment on above: Order Comment: Testi ng performed at: [] [facility], [address] [place] [address], [address], , Commercial Lender: Tres Cm, PhD Performed By: #### C 121, C301, C406, C4176, C116, C48, C8, C45, C400, C115 #### Refer to report for performing lab Lymphocytes/100 WBC (Bld) 24 % Invali d Interpretation Code Not Estab. [facility] Comment on above: Order Comment: Testi ng performed at: [] [facility], [address] [place] [address], [address], , Commercial Lender: Tres Cm, PhD Performed By: #### C 121, C301, C406, C4176, C116, C48, C8, C45, C400, C115 #### Refer to report for performing lab MCH (RBC) [Entitic mass] 28.6 pg Invalid Interpretation Code 26.6-33.0 [facility] Comment on above: Order Comment: Testi ng performed at: [] [facility], [address] [place] [address], [address], , Commercial Lender: Tres Cm, PhD Performed By: #### C 121, C301, C406, C4176, C116, C48, C8, C45, C400, C115 #### Refer to report for performing lab MCHC (RBC) [Mass/Vol] 33.7 g/dL Invalid Interpretation Code 31.5-35.7 [facility] Comment on above: Order Comment: Testi ng performed at: [] [facility], [address] [facility], [place], [address], , Commercial Lender: Tres Cm, PhD Performed By: #### C 121, C301, C406, C4176, C116, C48, C8, C45, C400, C115 #### Refer to report for performing lab MCV (RBC) [Entitic vol] 85 fL Invalid Interpretation Code 79-97 [facility] Comment on above: Order Comment: Testi ng performed at: [] [facility], [address] [place] [address], [address], , Commercial Lender: Tres Cm, PhD Performed By: #### C 121, C301, C406, C4176, C116, C48, C8, C45, C400, C115 #### Refer to report for performing lab Monocytes (Bld) [#/Vol] 0.7 10*3/uL Invalid Interpretation Code 0.1-0.9 [facility] Comment on above: Order Comment: Testi ng performed at: [] [facility], [address] [place] [address], [address], , Commercial Lender: Tres Cm, PhD Performed By: #### C 121, C301, C406, C4176, C116, C48, C8, C45, C400, C115 #### Refer to report for performing lab Monocytes/100 WBC (Bld) 15 % Invalid Interpretation Code Not Estab. [facility] Comment on above: Order Comment: Testi ng performed at: [] [facility], [address] [place] [address], [address], , Commercial Lender: Tres Cm, PhD Performed By: #### C 121, C301, C406, C4176, C116, C48, C8, C45, C400, C115 #### Refer to report for performing lab Neutrophils (Absolute) 2.5 x10E3/uL Invalid Interpretation Code 1.4-7.0 [facility] Comment on above: Order Comment: Testi ng performed at: [] [facility], [address] [place], [address], , Commercial Lender: Tres Cm, PhD Performed By: #### C 121, C301, C406, C4176, C116, C48, C8, C45, C400, C115 #### Refer to report for performing lab Neutrophils/100 WBC (Bld) 51 % Invali d Interpretation Code Not Estab. [facility] Comment on above: Order Comment: Testi ng performed at: [] [facility], [address] [place] [address], [address], , Commercial Lender: Tres Cm, PhD Performed By: #### C 121, C301, C406, C4176, C116, C48, C8, C45, C400, C115 #### Refer to report for performing lab Platelets (Bld) [#/Vol] 81 10*3/uL Critically low 150-450 [facility] Comment on above: Order Comment: Testi ng performed at: [] [facility], [address] [place] [address], [address], , Commercial Lender: Tres Cm, PhD Result Comment: Plat elet count verified by examination of peripheral blood smear. Performed By: #### C 121, C301, C406, C4176, C116, C48, C8, C45, C400, C115 #### Refer to report for performing lab RBC (Bld) [#/Vol] 4.47 10*6/uL Invalid Interpretation Code 4.14-5.80 [facility] Comment on above: Order Comment: Testi ng performed at: [] [facility], [address] [place] [address], [address], , Commercial Lender: Tres Cm, PhD Performed By: #### C 121, C301, C406, C4176, C116, C48, C8, C45, C400, C115 #### Refer to report for performing lab WBC (Bld) [#/Vol] 4.8 10*3/uL Invalid Interpretation Code 3.4-10.8 [facility] Comment on above: Order Comment: Testi ng performed at: [] [facility], [address] [place] [address], [address], , Commercial Lender: Tres Cm, PhD Result Comment: Ve rified by repeat analysis Performed By: #### C 121, C301, C406, C4176, C116, C48, C8, C45, C400, C115 #### Refer to report for performing lab GGT (COPC)on 04-05-2023 Gamma glutamyl transferase [Catalytic activity/Vol] 47 U/L Invalid Interpretation Code 0-65 [facility] Comment on above: Order Comment: Testi ng performed at: [] [facility], [address] [place] [address], [address], , Commercial Lender: Tres Cm, PhD Performed By: #### C 121, C301, C406, C4176, C116, C48, C8, C45, C400, C115 #### Refer to report for performing lab Hepatic Panel (COPC)on 04-05 Bilirubin.indirect [Mass/Vol] 0.68 mg/dL High 0.00-0.40 [facility] Comment on above: Order Comment: Testi ng performed at: [] [facility], [address] [place] [address], [address], , Commercial Lender: Tres Cm, PhD Performed By: #### C 121, C301, C406, C4176, C116, C48, C8, C45, C400, C115 #### Refer to report for performing lab ALT [Catalytic activity/Vol] 74 U/L High 0-44 [facility] Comment on above: Order Comment: Testi ng performed at: [] [facility], [address] [place] [address], [address], , Commercial Lender: Tres Cm, PhD Performed By: #### C 121, C301, C406, C4176, C116, C48, C8, C45, C400, C115 #### Refer to report for performing lab ALP [Catalytic activity/Vol] 180 U/L High 44-121 [facility] Comment on above: Order Comment: Testi ng performed at: [] [facility], [address] [place] [address], [address], , Commercial Lender: Tres Cm, PhD Performed By: #### C 121, C301, C406, C4176, C116, C48, C8, C45, C400, C115 #### Refer to report for performing lab AST [Catalytic activity/Vol] 89 U/L High 0-40 [facility] Comment on above: Order Comment: Testi ng performed at: [] [facility], [address] [place] [address], [address], , Commercial Lender: Tres Cm, PhD Performed By: #### C 121, C301, C406, C4176, C116, C48, C8, C45, C400, C115 #### Refer to report for performing lab Bilirubin [Mass/Vol] 1.6 mg/dL High 0.0-1.2 [facility] Comment on above: Order Comment: Testi ng performed at: [] [facility], [address] [place] [address], [address], , Commercial Lender: Tres Cm, PhD Performed By: #### C 121, C301, C406, C4176, C116, C48, C8, C45, C400, C115 #### Refer to report for performing lab Albumin [Mass/Vol] 3.0 g/dL Low 4.0-5.0 [facility] Comment on above: Order Comment: Testi ng performed at: [] [facility], [address] [place] [address], [address], , Commercial Lender: Tres Cm, PhD Performed By: #### C 121, C301, C406, C4176, C116, C48, C8, C45, C400, C115 #### Refer to report for performing lab Protein [Mass/Vol] 7.1 g/dL Invalid Interpretation Code 6.0-8.5 [facility] Comment on above: Order Comment: Testi ng performed at: [] [facility], [address] [place], [address], , Commercial Lender: rTes Cm, PhD Performed By: #### C 121, C301, C406, C4176, C116, C48, C8, C45, C400, C115 #### Refer to report for performing lab HgbA1C (COPC)on 04-05-2023 HbA1c (Bld) [Mass fraction] 6.8 % High 4.8-5.6 [facility] Comment on above: Order Comment: Testi ng performed at: [] [facility], [address] [place] [address], [address], , Commercial Lender: Tres Cm, PhD Result Comment: Pred iabetes: 5.7 - 6.4 Diabetes: >6.4 Glycemic control for adults with diabetes: <7.0 Performed By: #### C 121, C301, C406, C4176, C116, C48, C8, C45, C400, C115 #### Refer to report for performing lab Magnesium (COPC)on 3 Magnesium [Mass/Vol] 1.9 mg/dL Invalid Interpretation Code 1.6-2.3 [facility] Comment on above: Order Comment: Testi ng performed at: [] [facility], [address] [place] [address], [address], , Commercial Lender: Tres Cm, PhD Performed By: #### C 121, C301, C406, C4176, C116, C48, C8, C45, C400, C115 #### Refer to report for performing lab Phosphorus (COPC)on 04-05-20 23 Phosphate [Mass/Vol] 3.8 mg/dL Invalid Interpretation Code 2.8-4.1 [facility] Comment on above: Order Comment: Testi ng performed at: [] [facility], [address] [place], [address], , Commercial Lender: Tres Cm, PhD Performed By: #### C 121, C301, C406, C4176, C116, C48, C8, C45, C400, C115 #### Refer to report for performing lab Lipid Panel (COPC)on 023 Cholesterol, Total Test Not Performed. Normal [facility] Comment on above: Order Comment: Testi ng performed at: [CB] [facility], [address] [place], [address], , Commercial Lender: Tres Cm, PhD Result Comment: Requ est [...] Order Comment: Testi ng performed at: [CB] [facility], [address] [place], [address], , Commercial Lender: Tres Cm, PhD Result Comment: Test not performed Performed By: #### C 121, C301, C406, C4176, C116, C48, C8, C45, C400, C115 #### Refer to report for performing lab Triglycerides Test Not Performed. Normal [facility] Comment on above: Order Comment: Testi ng performed at: [CB] [facility], [address] [place], [address], , Commercial Lender: Tres Cm, PhD Result Comment: Test not performed Performed By: #### C 121, C301, C406, C4176, C116, C48, C8, C45, C400, C115 #### Refer to report for performing lab VLDL Cholesterol Elliott Test Not Performed. Normal [facility] Comment on above: Order Comment: Testi ng performed at: [CB] [facility], [address] [facility], [place], [address], , Commercial Lender: Tres Cm, PhD Result Comment: Unab le to calculate result since non-numeric result obtained for component test. Performed By: #### C 121, C301, C406, C4176, C116, C48, C8, C45, C400, C115 #### Refer to report for performing lab Written Authorizationon 03-15 Written Authorization Comment Normal [facility] Comment on above: Order Comment: Testi ng performed at: [CB] [facility], [address] [place], [address], , Commercial Lender: Tres Cm, PhD Result Comment: Writ ten Authorization Received. Authorization received from Written Request 04-12-2023 Logged by Danny Bunn Performed By: #### C 121, C301, C406, C4176, C116, C48, C8, C45, C400, C115 #### Refer to report for performing lab EGDon 02-16-2023 Esophagogastroduodenoscopy [facility] Patient Name: Leon Rider Procedure Date: 02/16/2023 [...] was normal. Procedure Code(s): --- Professional --- 60857, Esophagogastroduoden oscopy, flexible, transoral; diagnostic, including collection of specimen(s) by brushing or washing, when performed (separate procedure) Diagnosis Code(s): --- Professional --- I85.00, Esophageal varices without bleeding K76.6, Portal hypertension K31.89, Other diseases of stomach and duodenum K31.819, Angiodysplasia of stomach and duodenum without bleeding CPT copyright 2020 [employer]. All rights reserved. The codes documented in this report are preliminary and upon inpatient coder review may be revised to meet current compliance requirements. MD VINCENT Chiang MD 02/16/2023 9:28:58 AM This report has been signed electronically. Estimated Blood Loss: Estimated blood loss: none. Number of Addenda: 0 Note Initiated On: 02/16/2023 9:03 AM Total Procedure Duration Time 0 hours 2 minutes 20 seconds [address] [place] [address] IMPRESSION: - Z-line regular, 40 cm from [...] endoscopy in 6 months for surveillance. Normal [facility] EGD Anesthesia - MAC; JAKE Matamoros NDOSCOPYon [...] upper endoscopy in 6 months for surveillance. [facility] GI Patient Name: Leon Rider Procedure Date: [...] was normal. Procedure Code(s): --- Professional --- 93592, Esophagogastroduoden oscopy, flexible, transoral; diagnostic, including collection of specimen(s) by brushing or washing, when performed (separate procedure) Diagnosis Code(s): --- Professional --- I85.00, Esophageal varices without bleeding K76.6, Portal hypertension K31.89, Other diseases of stomach and duodenum K31.819, Angiodysplasia of stomach and duodenum without bleeding CPT copyright 2020 [employer]. All rights reserved. The codes documented in this report are preliminary and upon inpatient coder review may be revised to meet current compliance requirements. MD VINCENT Chiang MD 02/16/2023 9:28:58 AM This report has been signed electronically. Estimated Blood Loss: Estimated blood loss: none. Number of Addenda: 0 Note Initiated On: 02/16/2023 9:03 AM Total Procedure Duration Time 0 hours 2 minutes 20 seconds [address] [place] [address] [facility] Vincent Moses MD - 02/16/2023 [facility] GI Patient Name: Leon Rider Procedure [...] was normal. Procedure Code(s): --- Professional --- 84890, Esophagogastroduoden oscopy, flexible, transoral; diagnostic, including collection of specimen(s) by brushing or washing, when performed (separate procedure) Diagnosis Code(s): --- Professional --- I85.00, Esophageal varices without bleeding K76.6, Portal hypertension K31.89, Other diseases of stomach and duodenum K31.819, Angiodysplasia of stomach and duodenum without bleeding CPT copyright 2020 [employer]. All rights reserved. The codes documented in this report are preliminary and upon inpatient coder review may be revised to meet current compliance requirements. MD VINCENT Chiang MD 02/16/2023 9:28:58 AM This report has been signed electronically. Estimated Blood Loss: Estimated blood loss: none. Number of Addenda: 0 Note Initiated On: 02/16/2023 9:03 AM Total Procedure Duration Time 0 hours 2 minutes [address] seconds [address] [place] [address] IMPRESSION: - Z-line regular, 40 cm from [...] upper endoscopy in 6 months for surveillance. [facility] Radiology Study observation (narrative) [facility] Glucose Auto test strip (Bld ) [Mass/Vol]on 02-16-2023 Glucose [Mass/Vol] 158 mg/dL High 70-[address] [facility] Comment on above: Performed By: #### 2 340-8 #### [facility] [address] [place] [address] Glucose [Mass/Vol] 158 mg/dL High 70 - 99 mg/dL [facility] Interpretation and review of laboratory results Abnormal [facility] EGDon 12-23-2022 Esophagogastroduodenoscopy [facility] GI Patient Name: Leon Rider Procedure [...] oxygen saturations were monitored continuously. The GIF-H190 [id number] Endoscope was introduced through the mouth, and [...] was normal. Procedure Code(s): --- Professional --- 98969, Esophagogastroduoden oscopy, flexible, transoral; with band ligation of esophageal/gastric varices Diagnosis Code(s): --- Professional --- I85.00, Esophageal varices without bleeding K76.6, Portal hypertension K31.89, Other diseases of stomach and duodenum CPT copyright 2020 [employer]. All rights reserved. The codes documented in this report are preliminary and upon inpatient coder review may be revised to meet current compliance requirements. MD Paul Khan MD 12/23/2022 10:36:45 AM This report has been signed electronically. Estimated Blood Loss: Estimated blood loss: none. Number of Addenda: 0 Note Initiated On: 12/23/2022 10:12 AM Total Procedure Duration Time 0 hours 6 minutes 30 seconds [address] [place] [address] IMPRESSION: - Grade II esophageal varices. Completely [...] to GI office as previously scheduled. Normal [facility] EGD Anesthesia - MAC; JAKE Matamoros NDOSCOPYon [...] Return to GI office as previously scheduled. [facility] GI Patient Name: Leon Rider Procedure Date: [...] oxygen saturations were monitored continuously. The GIF-H190 [id number] Endoscope was introduced through the mouth, and [...] was normal. Procedure Code(s): --- Professional --- 09642, Esophagogastroduoden oscopy, flexible, transoral; with band ligation of esophageal/gastric varices Diagnosis Code(s): --- Professional --- I85.00, Esophageal varices without bleeding K76.6, Portal hypertension K31.89, Other diseases of stomach and duodenum CPT copyright 2020 [employer]. All rights reserved. The codes documented in this report are preliminary and upon inpatient coder review may be revised to meet current compliance requirements. MD Paul Khan MD 12/23/2022 10:36:45 AM This report has been signed elect (more content not included)... [facility] Paul Mishra V - 12/23/2022 [facility] GI Patient Name: Leon Rider Procedure [...] oxygen saturations were monitored continuously. The GIF-H190 [id number] Endoscope was introduced through the mouth, and [...] was normal. Procedure Code(s): --- Professional --- 30601, Esophagogastroduoden oscopy, flexible, transoral; with band ligation of esophageal/gastric varices Diagnosis Code(s): --- Professional --- I85.00, Esophageal varices without bleeding K76.6, Portal hypertension K31.89, Other diseases of stomach and duodenum CPT copyright 2020 [employer]. All rights reserved. The codes documented in this report are preliminary and upon inpatient coder review may be revised to meet current compliance requirements. MD Paul Khan MD 12/23/2022 10:36:45 AM This report has been signed electronically. Estimated Blood Loss: Estimated blood loss: none. Number of Addenda: 0 Note Initiated On: 12/23/2022 10:12 AM Total Procedure Duration Time 0 hours 6 minutes 30 seconds [address] [place] [address] IMPRESSION: - Grade II esophageal varices. Completely [...] Return to GI office as previously scheduled. [facility] Radiology Study observation (narrative) [facility] Glucose Auto test strip (Bld ) [Mass/Vol]on 12-23-2022 Glucose [Mass/Vol] 135 mg/dL High 70-[address] [facility] Comment on above: Performed By: #### 2 340-8 #### [facility] ([facility]) [facility] [address] [place] [address] Glucose [Mass/Vol] 135 mg/dL High 70 - 99 mg/dL [facility] [employer] [facility] Interpretation and review of laboratory results Abnormal [facility] [employer] [facility] Basic Metabolic Panel (COPC) on 11-21-2022 CO2 [Moles/Vol] 24 mmol/L Invalid Interpretation Code 20-29 [facility] Comment on above: Order Comment: Anthony feng performed at: [] [facility], [address] [place] [address], [place], [address], , Commercial Lender: Tres Cm, PhD Performed By: #### C 121, C301, C406, C4176, C116, C48, C8, C45, C400, C115 #### Refer to report for performing lab Creatinine [Mass/Vol] 0.63 mg/dL Low 0.76-1.27 [facility] Comment on above: Order Comment: Testi ng performed at: [] [facility], [address] [place] [address], [address], , Commercial Lender: Tres Cm, PhD Performed By: #### C 121, C301, C406, C4176, C116, C48, C8, C45, C400, C115 #### Refer to report for performing lab GFR/1.73 sq M.predicted among non-blacks MDRD (S/P/Bld) [Vol rate/Area] 120 mL/min/{1.73_m2} Invalid Interpretation Code >59 [facility] Comment on above: Order Comment: Testi ng performed at: [] [facility], [address] [place] [address], [address], , Commercial Lender: Tres Cm, PhD Performed By: #### C 121, C301, C406, C4176, C116, C48, C8, C45, C400, C115 #### Refer to report for performing lab Potassium [Moles/Vol] 3.6 mmol/L Invalid Interpretation Code 3.5-5.2 [facility] Comment on above: Order Comment: Testi ng performed at: [] [facility], [address] [place] [address], [address], , Commercial Lender: Tres Cm, PhD Performed By: #### C 121, C301, C406, C4176, C116, C48, C8, C45, C400, C115 #### Refer to report for performing lab Urea nitrogen [Mass/Vol] 5 mg/dL Low 6-24 [facility] Comment on above: Order Comment: Testi ng performed at: [] [facility], [address] [place] [address], [address], , Commercial Lender: Tres Cm, PhD Performed By: #### C 121, C301, C406, C4176, C116, C48, C8, C45, C400, C115 #### Refer to report for performing lab Urea nitrogen/Creatinine [Mass ratio] 8 mg/mg Low 9-20 [facility] Comment on above: Order Comment: Testi ng performed at: [] [facility], [address] [place] [address], [address], , Commercial Lender: Tres Cm, PhD Performed By: #### C 121, C301, C406, C4176, C116, C48, C8, C45, C400, C115 #### Refer to report for performing lab Glucose [Mass/Vol] 108 mg/dL High 70-99 [facility] Comment on above: Order Comment: Testi ng performed at: [] [facility], [address] [place] [address], [address], , Commercial Lender: Tres Cm, PhD Performed By: #### C 121, C301, C406, C4176, C116, C48, C8, C45, C400, C115 #### Refer to report for performing lab Calcium [Mass/Vol] 8.6 mg/dL Low 8.7-10.2 [facility] Comment on above: Order Comment: Testi ng performed at: [] [facility], [address] [place] [address], [address], , Commercial Lender: Tres Cm, PhD Performed By: #### C 121, C301, C406, C4176, C116, C48, C8, C45, C400, C115 #### Refer to report for performing lab Sodium [Moles/Vol] 136 mmol/L Invalid Interpretation Code 134-144 [facility] Comment on above: Order Comment: Testi ng performed at: [] [facility], [address] [place] [address], [address], , Commercial Lender: Tres Cm, PhD Performed By: #### C 121, C301, C406, C4176, C116, C48, C8, C45, C400, C115 #### Refer to report for performing lab Chloride [Moles/Vol] 100 mmol/L Invalid Interpretation Code 96-106 [facility] Comment on above: Order Comment: Testi ng performed at: [] [facility], [address] [place] [address], [address], , Commercial Lender: Tres Cm, PhD Performed By: #### C 121, C301, C406, C4176, C116, C48, C8, C45, C400, C115 #### Refer to report for performing lab CBC with differential (COPC) on 11-21-2022 Basophils (Bld) [#/Vol] 0.1 10*3/uL Invalid Interpretation Code 0.0-0.2 [facility] Comment on above: Order Comment: Testi ng performed at: [] [facility], [address] [place] [address], [address], , Commercial Lender: Tres Cm, PhD Performed By: #### C 121, C301, C406, C4176, C116, C48, C8, C45, C400, C115 #### Refer to report for performing lab Basophils/100 WBC (Bld) 2 % Invalid Interpretation Code Not Estab. [facility] Comment on above: Order Comment: Testi ng performed at: [] [facility], [address] [place] [address], [address], , Commercial Lender: Tres Cm, PhD Performed By: #### C 121, C301, C406, C4176, C116, C48, C8, C45, C400, C115 #### Refer to report for performing lab Eosinophils (Bld) [#/Vol] 0.4 10*3/uL Invali d Interpretation Code 0.0-0.4 [facility] Comment on above: Order Comment: Testi ng performed at: [] [address], [address], , Commercial Lender: Trse Cm, PhD Performed By: #### C 121, C301, C406, C4176, C116, C48, C8, C45, C400, C115 #### Refer to report for performing lab Eosinophils/100 WBC (Bld) 8 % Invali d Interpretation Code Not Estab. [facility] Comment on above: Order Comment: Testi ng performed at: [] [address], [address], , Commercial Lender: Tres Cm, PhD Performed By: #### C 121, C301, C406, C4176, C116, C48, C8, C45, C400, C115 #### Refer to report for performing lab Erythrocyte distribution width (RBC) [Ratio] 14.9 % Invalid Interpretation Code 11.6-15.4 [facility] Comment on above: Order Comment: Testi ng performed at: [] [address], [address], , Commercial Lender: Tres Cm, PhD Performed By: #### C 121, C301, C406, C4176, C116, C48, C8, C45, C400, C115 #### Refer to report for performing lab Hematocrit (Bld) [Volume fraction] 38.1 % Invalid Interpretation Code 37.5-51.0 [facility] Comment on above: Order Comment: Testi ng performed at: [] [address], [address], , Commercial Lender: Tres Cm, PhD Performed By: #### C 121, C301, C406, C4176, C116, C48, C8, C45, C400, C115 #### Refer to report for performing lab Hematology Comments: Note: Invalid Interpretation Code [facility] Comment on above: Order Comment: Testi ng performed at: [] [facility], [address] [place] [address], [address], , Commercial Lender: Tres Cm, PhD Result Comment: Evy fied by microscopic examination. Performed By: #### C 121, C301, C406, C4176, C116, C48, C8, C45, C400, C115 #### Refer to report for performing lab Hemoglobin (Bld) [Mass/Vol] 12.9 g/dL Low 13.0-17.7 [facility] Comment on above: Order Comment: Testi ng performed at: [] [facility], [address] [place] [address], [address], , Commercial Lender: Tres Cm, PhD Performed By: #### C 121, C301, C406, C4176, C116, C48, C8, C45, C400, C115 #### Refer to report for performing lab Immature Grans (Abs) 0.0 x10E3/uL Invalid Interpretation Code 0.0-0.1 [facility] Comment on above: Order Comment: Testi ng performed at: [] [facility], [address] [place] [address], [address], , Commercial Lender: Tres Cm, PhD Performed By: #### C 121, C301, C406, C4176, C116, C48, C8, C45, C400, C115 #### Refer to report for performing lab Immature granulocytes/100 WBC (Bld) 0 % Invalid Interpretation Code Not Estab. [facility] Comment on above: Order Comment: Testi ng performed at: [] [facility], [address] [place] [address], [address], , Commercial Lender: Tres Cm, PhD Performed By: #### C 121, C301, C406, C4176, C116, C48, C8, C45, C400, C115 #### Refer to report for performing lab Lymphocytes (Bld) [#/Vol] 1.0 10*3/uL Invali d Interpretation Code 0.7-3.1 [facility] Comment on above: Order Comment: Testi ng performed at: [] [facility], [address] [place] [address], [address], , Commercial Lender: Tres Cm, PhD Performed By: #### C 121, C301, C406, C4176, C116, C48, C8, C45, C400, C115 #### Refer to report for performing lab Lymphocytes/100 WBC (Bld) 23 % Invali d Interpretation Code Not Estab. [facility] Comment on above: Order Comment: Testi ng performed at: [] [address], [address], , Commercial Lender: Tres Cm, PhD Performed By: #### C 121, C301, C406, C4176, C116, C48, C8, C45, C400, C115 #### Refer to report for performing lab MCH (RBC) [Entitic mass] 29.2 pg Invalid Interpretation Code 26.6-33.0 [facility] Comment on above: Order Comment: Testi ng performed at: [] [facility], [address] [place] [address], [address], , Commercial Lender: Tres Cm, PhD Performed By: #### C 121, C301, C406, C4176, C116, C48, C8, C45, C400, C115 #### Refer to report for performing lab MCHC (RBC) [Mass/Vol] 33.9 g/dL Invalid Interpretation Code 31.5-35.7 [facility] Comment on above: Order Comment: Testi ng performed at: [] [facility], [address] [place] [address], [address], , Commercial Lender: Tres Cm, PhD Performed By: #### C 121, C301, C406, C4176, C116, C48, C8, C45, C400, C115 #### Refer to report for performing lab MCV (RBC) [Entitic vol] 86 fL Invalid Interpretation Code 79-97 [facility] Comment on above: Order Comment: Testi ng performed at: [] [facility], [address] [place] [address], [address], , Commercial Lender: Tres Cm, PhD Performed By: #### C 121, C301, C406, C4176, C116, C48, C8, C45, C400, C115 #### Refer to report for performing lab Monocytes (Bld) [#/Vol] 0.7 10*3/uL Invalid Interpretation Code 0.1-0.9 [facility] Comment on above: Order Comment: Testi ng performed at: [] [facility], [address] [place] [address], [address], , Commercial Lender: Tres Cm, PhD Performed By: #### C 121, C301, C406, C4176, C116, C48, C8, C45, C400, C115 #### Refer to report for performing lab Monocytes/100 WBC (Bld) 15 % Invalid Interpretation Code Not Estab. [facility] Comment on above: Order Comment: Testi ng performed at: [] [facility], [address] [place] [address], [address], , Commercial Lender: Tres Cm, PhD Performed By: #### C 121, C301, C406, C4176, C116, C48, C8, C45, C400, C115 #### Refer to report for performing lab Neutrophils (Absolute) 2.2 x10E3/uL Invalid Interpretation Code 1.4-7.0 [facility] Comment on above: Order Comment: Testi ng performed at: [] [facility], [address] [place] [address], [address], , Commercial Lender: Tres Cm, PhD Performed By: #### C 121, C301, C406, C4176, C116, C48, C8, C45, C400, C115 #### Refer to report for performing lab Neutrophils/100 WBC (Bld) 52 % Invali d Interpretation Code Not Estab. [facility] Comment on above: Order Comment: Testi ng performed at: [] [facility], [address] [place] [address], [address], , Commercial Lender: Tres Cm, PhD Performed By: #### C 121, C301, C406, C4176, C116, C48, C8, C45, C400, C115 #### Refer to report for performing lab Platelets (Bld) [#/Vol] 84 10*3/uL Critically low 150-450 [facility] Comment on above: Order Comment: Testi ng performed at: [] [facility], [address] [place] [address], [address], , Commercial Lender: Tres Cm, PhD Result Comment: Plat elet count verified by examination of peripheral blood smear. Performed By: #### C 121, C301, C406, C4176, C116, C48, C8, C45, C400, C115 #### Refer to report for performing lab RBC (Bld) [#/Vol] 4.42 10*6/uL Invalid Interpretation Code 4.14-5.80 [facility] Comment on above: Order Comment: Testi ng performed at: [] [facility], [address] [place] [address], [address], , Commercial Lender: Tres Cm, PhD Performed By: #### C 121, C301, C406, C4176, C116, C48, C8, C45, C400, C115 #### Refer to report for performing lab WBC (Bld) [#/Vol] 4.3 10*3/uL Invalid Interpretation Code 3.4-10.8 [facility] Comment on above: Order Comment: Testi ng performed at: [] [facility], [address] [place] [address], [address], , Commercial Lender: Tres Cm, PhD Result Comment: Ve rified by repeat analysis Performed By: #### C 121, C301, C406, C4176, C116, C48, C8, C45, C400, C115 #### Refer to report for performing lab GGT (COPC)on 11-21-2022 Gamma glutamyl transferase [Catalytic activity/Vol] 59 U/L Invalid Interpretation Code 0-65 [facility] Comment on above: Order Comment: Testi ng performed at: [] [facility], [address] [place] [address], [address], , Commercial Lender: Tres Cm, PhD Performed By: #### C 121, C301, C406, C4176, C116, C48, C8, C45, C400, C115 #### Refer to report for performing lab Hepatic Panel (COPC)on 11-21 Bilirubin.indirect [Mass/Vol] 0.65 mg/dL High 0.00-0.40 [facility] Comment on above: Order Comment: Testi ng performed at: [] [facility], [address] [place] [address], [address], , Commercial Lender: Tres Cm, PhD Performed By: #### C 121, C301, C406, C4176, C116, C48, C8, C45, C400, C115 #### Refer to report for performing lab AST [Catalytic activity/Vol] 72 U/L High 0-40 [facility] Comment on above: Order Comment: Testi ng performed at: [] [facility], [address] [place], [address], , Commercial Lender: Tres Cm, PhD Performed By: #### C 121, C301, C406, C4176, C116, C48, C8, C45, C400, C115 #### Refer to report for performing lab ALP [Catalytic activity/Vol] 188 U/L High 44-121 [facility] Comment on above: Order Comment: Testi ng performed at: [] [facility], [address] [place] [address], [address], , Commercial Lender: Tres mC, PhD Performed By: #### C 121, C301, C406, C4176, C116, C48, C8, C45, C400, C115 #### Refer to report for performing lab ALT [Catalytic activity/Vol] 46 U/L High 0-44 [facility] Comment on above: Order Comment: Testi ng performed at: [] [facility], [address] [place] [address], [address], , Commercial Lender: Tres Cm, PhD Performed By: #### C 121, C301, C406, C4176, C116, C48, C8, C45, C400, C115 #### Refer to report for performing lab Albumin [Mass/Vol] 3.1 g/dL Low 4.0-5.0 [facility] Comment on above: Order Comment: Testi ng performed at: [] [facility], [address] [place] [address], [address], , Commercial Lender: Tres Cm, PhD Performed By: #### C 121, C301, C406, C4176, C116, C48, C8, C45, C400, C115 #### Refer to report for performing lab Bilirubin [Mass/Vol] 1.7 mg/dL High 0.0-1.2 [facility] Comment on above: Order Comment: Testi ng performed at: [] [facility], [address] [place] [address], [address], , Commercial Lender: Tres Cm, PhD Performed By: #### C 121, C301, C406, C4176, C116, C48, C8, C45, C400, C115 #### Refer to report for performing lab Protein [Mass/Vol] 7.4 g/dL Invalid Interpretation Code 6.0-8.5 [facility] Comment on above: Order Comment: Testi ng performed at: [] [facility], [address] [place] [address], [address], , Commercial Lender: Tres Cm, PhD Performed By: #### C 121, C301, C406, C4176, C116, C48, C8, C45, C400, C115 #### Refer to report for performing lab HgbA1C ([facility])on 11-21-2022 HbA1c (Bld) [Mass fraction] 6.6 % High 4.8-5.6 [facility] Comment on above: Order Comment: Testi ng performed at: [] [facility], [address] [place] [address], [address], , Commercial Lender: Tres Cm, PhD Result Comment: Pred iabetes: 5.7 - 6.4 Diabetes: >6.4 Glycemic control for adults with diabetes: <7.0 Performed By: #### C 121, C301, C406, C4176, C116, C48, C8, C45, C400, C115 #### Refer to report for performing lab Lipid Panel ([facility])on 023 Cholesterol in HDL [Mass/Vol] 48 mg/dL Invalid Interpretation Code >39 [facility] Comment on above: Order Comment: Testi ng performed at: [] [facility], [address] [place] [address], [address], , Commercial Lender: Tres Cm, PhD Performed By: #### C 121, C301, C406, C4176, C116, C48, C8, C45, C400, C115 #### Refer to report for performing lab LDL Chol Calc ([facility]) 151 mg/dL High 0-99 [facility] Comment on above: Order Comment: Testi ng performed at: [] [facility], [address] [place] [address], [address], , Commercial Lender: Tres Cm, PhD Performed By: #### C 121, C301, C406, C4176, C116, C48, C8, C45, C400, C115 #### Refer to report for performing lab VLDL Cholesterol Elliott 25 mg/dL Invalid Interpretation Code 5-40 [facility] Comment on above: Order Comment: Testi ng performed at: [] [facility], [address] [place] [address], [address], , Commercial Lender: Tres Cm, PhD Performed By: #### C 121, C301, C406, C4176, C116, C48, C8, C45, C400, C115 #### Refer to report for performing lab Triglyceride [Mass/Vol] 139 mg/dL Invalid Interpretation Code 0-149 [facility] Comment on above: Order Comment: Testi ng performed at: [] [facility], [address] [place] [address], [address], , Commercial Lender: Tres Cm, PhD Performed By: #### C 121, C301, C406, C4176, C116, C48, C8, C45, C400, C115 #### Refer to report for performing lab Cholesterol [Mass/Vol] 224 mg/dL High 100-199 [facility] Comment on above: Order Comment: Testi ng performed at: [] [facility], [address] [place] [address], [address], , Commercial Lender: Tres Cm, PhD Performed By: #### C 121, C301, C406, C4176, C116, C48, C8, C45, C400, C115 #### Refer to report for performing lab Magnesium (COPC)on 3 Magnesium [Mass/Vol] 2.0 mg/dL Invalid Interpretation Code 1.6-2.3 [facility] Comment on above: Order Comment: Testi ng performed at: [] [facility], [address] [place] [address], [address], , Commercial Lender: Tres Cm, PhD Performed By: #### C 121, C301, C406, C4176, C116, C48, C8, C45, C400, C115 #### Refer to report for performing lab PSA, Free and Total ([facility])o n 11-21-2022 % Free PSA 50.0 % Invalid Interpretation Code [facility] Comment on above: Order Comment: Testi ng performed at: [CB] [facility], [address] [place], [address], , Commercial Lender: Tres Cm, PhD Result Comment: The table [...] Order Comment: Testi ng performed at: [CB] [facility], [address] [facility], [place], [address], , Commercial Lender: Tres Cm, PhD Result Comment: Mike ORDONEZ methodology. According to the [employer], Serum PSA should decrease and [...] Order Comment: Testi ng performed at: [] [facility], [address] [place] [address], [address], , Commercial Lender: Tres Cm, PhD Result Comment: Mike ORDONEZ methodology. Performed By: #### C 121, C301, C406, C4176, C116, C48, C8, C45, C400, C115 #### Refer to report for performing lab Phosphorus (COPC)on 11-21-19 23 Phosphate [Mass/Vol] 4.0 mg/dL Invalid Interpretation Code 2.8-4.1 [facility] Comment on above: Order Comment: Testi ng performed at: [] [facility], [address] [place] [address], [address], , Commercial Lender: Tres Cm, PhD Performed By: #### C 121, C301, C406, C4176, C116, C48, C8, C45, C400, C115 #### Refer to report for performing lab TSH (COPC)on 11-21-2022 TSH 1.800 uIU/mL Invalid Interpretation Code 0.450-4.50 0 [facility] Comment on above: Order Comment: Testi ng performed at: [] [facility], [address] [place], [address], , Commercial Lender: Tres Cm, PhD Performed By: #### C 121, C301, C406, C4176, C116, C48, C8, C45, C400, C115 #### Refer to report for performing lab Uric Acid (COPC)on 3 Urate [Mass/Vol] 3.6 mg/dL Low 3.8-8.4 [facility] Comment on above: Order Comment: Testi ng performed at: [] [facility], [address] [place] [address], [address], , Commercial Lender: Tres Cm, PhD Result Comment: Ther apeutic target for gout patients: <6.0 Performed By: #### C 121, C301, C406, C4176, C116, C48, C8, C45, C400, C115 #### Refer to report for performing lab Urinalysis and Microscopic w / Rfx to Cx ([facility])on 11-21-2022 Bacteria None seen Invalid Interpretation Code None seen/Few [facility] Comment on above: Order Comment: Testi ng performed at: [] [facility], [address] [place] [address], [address], , Commercial Lender: Tres Cm, PhD Performed By: #### C 121, C301, C406, C4176, C116, C48, C8, C45, C400, C115 #### Refer to report for performing lab Casts None seen Invalid Interpretation Code None seen [facility] Comment on above: Order Comment: Testi ng performed at: [] [facility], [address] [place] [address], [address], , Commercial Lender: Tres Cm, PhD Performed By: #### C 121, C301, C406, C4176, C116, C48, C8, C45, C400, C115 #### Refer to report for performing lab Epithelial cells LM Ql (Urine sed) None seen Invalid Interpretation Code 0 - 10 [facility] Comment on above: Order Comment: Testi ng performed at: [] [facility], [address] [place] [address], [address], , Commercial Lender: Tres Cm, PhD Performed By: #### C 121, C301, C406, C4176, C116, C48, C8, C45, C400, C115 #### Refer to report for performing lab Mucus Threads Present Invalid Interpretation Code Not Estab. [facility] Comment on above: Order Comment: Testi ng performed at: [] [facility], [address] [place] [address], [address], , Commercial Lender: Tres Cm, PhD Performed By: #### C 121, C301, C406, C4176, C116, C48, C8, C45, C400, C115 #### Refer to report for performing lab RBC None seen Invalid Interpretation Code 0 - 2 [facility] Comment on above: Order Comment: Testi ng performed at: [] [facility], [address] [place] [address], [address], , Commercial Lender: Tres Cm, PhD Performed By: #### C 121, C301, C406, C4176, C116, C48, C8, C45, C400, C115 #### Refer to report for performing lab WBC None seen Invalid Interpretation Code 0 - 5 [facility] Comment on above: Order Comment: Testi ng performed at: [] [facility], [address] [place] [address], [address], , Commercial Lender: Tres Cm, PhD Performed By: #### C 121, C301, C406, C4176, C116, C48, C8, C45, C400, C115 #### Refer to report for performing lab Appearance (U) Clear Invalid Interpretation Code Clear [facility] Comment on above: Order Comment: Testi ng performed at: [] [facility], [address] [place] [address], [address], , Commercial Lender: Tres Cm, PhD Performed By: #### C 121, C301, C406, C4176, C116, C48, C8, C45, C400, C115 #### Refer to report for performing lab Bilirubin Ql (U) Negative Invalid Interpretation Code Negative [facility] Comment on above: Order Comment: Testi ng performed at: [] [facility], [address] [place] [address], [address], , Commercial Lender: Tres Cm, PhD Performed By: #### C 121, C301, C406, C4176, C116, C48, C8, C45, C400, C115 #### Refer to report for performing lab Color (U) Yellow Invalid Interpretation Code Yellow [facility] Comment on above: Order Comment: Testi ng performed at: [] [facility], [address] [place] [address], [address], , Commercial Lender: Tres Cm, PhD Performed By: #### C 121, C301, C406, C4176, C116, C48, C8, C45, C400, C115 #### Refer to report for performing lab Glucose Ql (U) 2+ Abnormal Negative [facility] Comment on above: Order Comment: Testi ng performed at: [] [facility], [address] [place] [address], [address], , Commercial Lender: Tres Cm, PhD Performed By: #### C 121, C301, C406, C4176, C116, C48, C8, C45, C400, C115 #### Refer to report for performing lab Ketones Ql (U) Negative Invalid Interpretation Code Negative [facility] Comment on above: Order Comment: Testi ng performed at: [] [facility], [address] [place] [address], [address], , Commercial Lender: Tres Cm, PhD Performed By: #### C 121, C301, C406, C4176, C116, C48, C8, C45, C400, C115 #### Refer to report for performing lab Microscopic Examination See below: Invalid Interpretation Code [facility] Comment on above: Order Comment: Testi ng performed at: [] [facility], [address] [place] [address], [address], , Commercial Lender: Tres Cm, PhD Result Comment: Micr oscopic was indicated and was performed. Performed By: #### C 121, C301, C406, C4176, C116, C48, C8, C45, C400, C115 #### Refer to report for performing lab Nitrite, Urine Negative Invalid Interpretation Code Negative [facility] Comment on above: Order Comment: Testi ng performed at: [] [facility], [address] [place] [address], [address], , Commercial Lender: Tres Cm, PhD Performed By: #### C 121, C301, C406, C4176, C116, C48, C8, C45, C400, C115 #### Refer to report for performing lab Occult Blood Negative Invalid Interpretation Code Negative [facility] Comment on above: Order Comment: Testi ng performed at: [CB] [address], [address], , Commercial Lender: Tres Cm, PhD Performed By: #### C 121, C301, C406, C4176, C116, C48, C8, C45, C400, C115 #### Refer to report for performing lab pH (U) 6.5 [pH] Invalid Interpretation Code 5.0-7.5 [facility] Comment on above: Order Comment: Testi ng performed at: [] [facility], [address] [place] [address], [phone], , Commercial Lender: Tres Cm, PhD Performed By: #### C 121, C301, C406, C4176, C116, C48, C8, C45, C400, C115 #### Refer to report for performing lab Protein Ql (U) Negative Invalid Interpretation Code Negative/T race [facility] Comment on above: Order Comment: Testi ng performed at: [] [facility], [address] [place] [address], [address], , Commercial Lender: Tres Cm, PhD Performed By: #### C 121, C301, C406, C4176, C116, C48, C8, C45, C400, C115 #### Refer to report for performing lab Specific gravity (U) [Rel density] 1.024 Invalid Interpretation Code 1.005-1.03 0 [facility] Comment on above: Order Comment: Testi ng performed at: [] [facility], [address] [place] [address], [address], , Commercial Lender: Tres Cm, PhD Performed By: #### C 121, C301, C406, C4176, C116, C48, C8, C45, C400, C115 #### Refer to report for performing lab Urobilinogen,Semi-Qn 1.0 mg/dL Invalid Interpretation Code 0.2-1.0 [facility] Comment on above: Order Comment: Testi ng performed at: [] [facility], [address] [place] [address], [address], , Commercial Lender: Tres Cm, PhD Performed By: #### C 121, C301, C406, C4176, C116, C48, C8, C45, C400, C115 #### Refer to report for performing lab WBC Esterase Negative Invalid Interpretation Code Negative [facility] Comment on above: Order Comment: Testi ng performed at: [] [facility], [address] [place] [address], [address], , Commercial Lender: Tres Cm, PhD Performed By: #### C 121, C301, C406, C4176, C116, C48, C8, C45, C400, C115 #### Refer to report for performing lab Urine, Random, Albumin/Crea (COPC)on 11-21-2022 Alb/Creat Ratio 8 mg/g creat Invalid Interpretation Code 0-29 [facility] Comment on above: Order Comment: Testi ng performed at: [CB] [facility], [address] [place], [address], , Commercial Lender: Tres Cm, PhD Result Comment: Norm al: 0 - 29 Moderately increased: 30 - 300 Severely increased: >300 Performed By: #### C 121, C301, C406, C4176, C116, C48, C8, C45, C400, C115 #### Refer to report for performing lab Albumin, Urine 8.1 ug/mL Invalid Interpretation Code Not Estab. [facility] Comment on above: Order Comment: Testi ng performed at: [] [facility], [address] [place] [address], [address], , Commercial Lender: Tres Cm, PhD Performed By: #### C 121, C301, C406, C4176, C116, C48, C8, C45, C400, C115 #### Refer to report for performing lab Creatinine, Urine 102.1 mg/dL Invalid Interpretation Code Not Estab. [facility] Comment on above: Order Comment: Testi ng performed at: [] [facility], [address] [place] [address], [place], [address], , Commercial Lender: Tres Cm, PhD Performed By: #### C 121, C301, C406, C4176, C116, C48, C8, C45, C400, C115 #### Refer to report for performing lab Urinalysis and Microscopic w / Rfx to Cx ([facility])on 11-20-2022 Microscopic Examination Comment Normal C [facility] Comment on above: Order Comment: Testi ng performed at: [] [facility], [address] [place], [address], , Commercial Lender: Tres Cm, PhD Result Comment: Micr oscopic follows if indicated. Performed By: #### C 121, C301, C406, C4176, C116, C48, C8, C45, C400, C115 #### Refer to report for performing lab Urinalysis Reflex Comment Normal [facility] Comment on above: Order Comment: Anthony feng performed at: [] [facility], [address] [facility], [place], [address], , Commercial Lender: Tres Cm, PhD Result Comment: This specimen [...] Self Edit Transcribed Date: 11/17/2022 08:37 Normal [facility] XR Abdomen Single viewon No radiographic evidence [...] Self Edit Transcribed Date: 11/17/2022 08:37 [facility] Radiology Study observation (narrative) [facility] [employer] [facility] XR Abdomen Single viewOrdere d By: Mars Ortega on 11-17-2022 [facility] Work Phone: [facility] 10-27-2022 Esophagogastroduodenoscopy [facility] Patient Name: Leon Rider Procedure Date: 10/27/2022 5:22 PM Date of : 1980 Age: 42 Gender: Male Procedure: Upper GI endoscopy Indications: For therapy of esophageal varices Providers: DO Gabreila HENDRICKSON MD: CARLOS JIMÉNEZ MD Medicines: Deep [...] The patient tolerated the procedure well. Findings: [employer]-colored mucosa was present. Biopsied during prior EGD. [...] was normal. Procedure Code(s): --- Professional --- 19176, Esophagogastroduoden oscopy, flexible, transoral; with band ligation of esophageal/gastric varices Diagnosis Code(s): --- Professional --- K22.8, Other specified diseases of esophagus I85.00, Esophageal varices without bleeding K76.6, Portal hypertension K31.89, Other diseases of stomach and duodenum K31.819, Angiodysplasia of stomach and duodenum without bleeding CPT copyright 2020 [employer]. All rights reserved. The codes documented in this report are preliminary and upon inpatient coder review may be revised to meet current compliance requirements. DO SUSANA Martinez DO 10/27/2022 5:51:19 PM This report has been signed electronically. Number of Addenda: 0 Estimated Blood Loss: Estimated blood loss was minimal. Total Procedure Duration Time 0 hours 9 minutes [address] [place], [place] [id number] IMPRESSION: - [employer]-colored mucosa suspicious for Osborn's esophagus. - Grade [...] as pr (more content not included)... Normal [facility] EGD Anesthesia - [facility]; JUDIT [place] NDOSCOPYon 10-27-2022 - [employer]-colored mucosa suspicious for Osborn's esophagus. - Grade [...] previously scheduled. - Discharge patient to home. [facility] Patient Name: Leon Rider Procedure Date: [...] The patient tolerated the procedure well. Findings: [employer]-colored mucosa was present. Biopsied during prior EGD. [...] was normal. Procedure Code(s): --- Professional --- 72354, Esophagogastroduoden oscopy, flexible, transoral; with band ligation of esophageal/gastric varices Diagnosis Code(s): --- Professional --- K22.8, Other specified diseases of esophagus I85.00, Esophageal varices without bleeding K76.6, Portal hypertension K31.89, Other diseases of stomach and duodenum K31.819, Angiodysplasia of stomach and duodenum without bleeding CPT copyright 2020 [employer]. All rights reserved. The codes documented in this report are preliminary and upon inpatient coder review may be revised to meet cur (more content not included)... [facility] Susana Leblanc DO - 10/27/2022 [facility] Patient Name: Leon Rider Procedure [...] The patient tolerated the procedure well. Findings: [employer]-colored mucosa was present. Biopsied during prior EGD. [...] was normal. Procedure Code(s): --- Professional --- 21269, Esophagogastroduoden oscopy, flexible, transoral; with band ligation of esophageal/gastric varices Diagnosis Code(s): --- Professional --- K22.8, Other specified diseases of esophagus I85.00, Esophageal varices without bleeding K76.6, Portal hypertension K31.89, Other diseases of stomach and duodenum K31.819, Angiodysplasia of stomach and duodenum without bleeding CPT copyright 2020 [employer]. All rights reserved. The codes documented in this report are preliminary and upon inpatient coder review may be revised to meet current compliance requirements. DO SUSANA Martinez DO 10/27/2022 5:51:19 PM This report has been signed electronically. Number of Addenda: 0 Estimated Blood Loss: Estimated blood loss was minimal. Total Procedure Duration Time 0 hours 9 minutes [address] [place] [address] IMPRESSION: - [employer]-colored mucosa suspicious for Osborn's esophagus. - Grade [...] Continue present medicati (more content not included)... [employer] Radiology Study observation (narrative) [facility] Glucose Auto test strip (Bld ) [Mass/Vol]on 10-27-2022 Glucose [Mass/Vol] 102 mg/dL High 70-99 [facility] Comment on above: Performed By: #### 2 340-8 #### [facility] [address] [place] [address] Glucose [Mass/Vol] 102 mg/dL High 70 - 99 mg/dL [facility] Interpretation and review of laboratory results Abnormal [facility] [employer] [facility] US ABDOMEN LIMITEDon 022 US ABDOMEN LIMITED [...] Maya Dictated Date: 09/02/2022 08:06 Assigned Physician: Sni Maya Reviewed and Electronically Signed By: Sin Maya Signed Date: 09/02/2022 08:19 Workstation ID: [id number] Transcribed By: Self Edit Transcribed Date: 09/02/2022 08:[address] [facility] US Abdomen Limitedon 022 1. Cirrhotic hepatic [...] By: Self Edit Transcribed Date: 09/02/2022 08:06 [employer] EXAMINATION TYPE: US ABDOMEN LIMITED DATE OF [...] 5 mm. No right-sided hydronephrosis is demonstrated. [employer] Technology[employer] Sin Maya MD - 09/02/2022 EXAMINATION TYPE: [...] By: Self Edit Transcribed Date: 09/02/2022 08:06 [facility] Radiology Study observation (narrative) [facility] US Abdomen LimitedOrdered By : Sin Maya on 09-02-2022 [facility] Work Phone: ECG 12 leadon 04-14-2022 P Wave Morrison 69 degrees [facility] P-R Interval 164 ms [facility] th Pathologist interpretation (Bld) [Interp] Sinus tachycardia Nonspecific T wave abnormality Abnormal ECG Confirmed by Susana Valdes MD ([id number]), film and video editor Donavon Simmons ([id number]) on 04/14/2022 7:53:39 AM [facility] Q-T Interval 374 ms [facility] th QRS Duration 82 ms [facility] th QTc 484 ms [facility] R Morrison 20 degrees [facility] Troponin T.cardiac [Mass/Vol] 35 ug/L degrees [facility] - Coagulationon 0 04-14-2022 ACT Coag (Bld) 101 s BPM [facility] Transthoracic echocardiogram (TTE) complete with PRN contrast, bubble, strain, and 3D order panelOrdered By: Jonas Baker on 04-14-2022 Ao VTI 32.6 cm [facility] [employer] [facility] Work Phone: Aortic Valve Cusp Separation mMode 1.7 cm [facility] Work Phone: Ascending Aorta 3.7 cm [facility] Work Phone: AV Mean Gradient 7 mmHg [facility] Work Phone: AV Peak Gradient 14 mmHg [employer] [facility] Work Phone: AV Peak Berhane 1.9 m/s [facility] Work Phone: AV Velocity Ratio 0.84 [employer] Phone: Body surface area Derived from formula 2.89 m2 [facility] Work Phone: E Wave Deceleration Time 132 ms 119 - 242 ms [facility] Work Phone: E/E' Ratio Averaged 11 Tayla ty [facility] Work Phone: E/E' Ratio Lateral 10 [facility] y [facility] Work Phone: E/E' Ratio Septal 12 [employer] [facility] Work Phone: Ejection Fraction (A2C) 54 % T [facility] Work Phone: Ejection Fraction (A4C) 66 % T [facility] Work Phone: Ejection Fraction (BP) 57 % Tr [facility] Work Phone: Est. RA Pressure 3 mmHg [employer] Work Phone: FS 43 % [facility] Phone: Interpretation and review of laboratory results Abnormal [facility] Work Phone: IVSD 1.0 cm 0.6 - 1.0 cm [facility] Work Phone: LA Area Sys (A2C) 17 cm2 [facility] Work Phone: LA Area Sys (A4C) 27 cm2 [facility] Work Phone: LA Volume (BP) 56 mL [facility] Work Phone: LA Volume Index (BP) 21 mL/m2 [facility] Work Phone: Left Atrium Major Morrison 7.4 cm [facility] Work Phone: Left Atrium Minor Morrison 6.6 cm [facility] Work Phone: LV Diastolic Volume (BP) 167 mL Abnormal 62 - 150 mL [facility] Work Phone: LV Diastolic Volume Index (BP) 61 mL/m2 [employer] Work Phone: LV EDV (A2C) 171 mL [facility] Work Phone: LV EDV (A4C) 160 mL [facility] Work Phone: LV EDV Index (A2C) 63 mL/m2 [facility] Work Phone: LV EDV Index (A4C) 59 mL/m2 [facility] y [facility] Work Phone: LV ESV (A2C) 79 mL [facility] Work Phone: LV ESV (A4C) 55 mL [facility] Work Phone: LV ESV Index (A2C) 29 mL/m2 [facility] Work Phone: LV ESV Index (A4C) 20 mL/m2 [facility] Work Phone: LV Mass 2D 218 g [employer] Work Phone: LV Mass Index 2D 80 g/m2 [employer] Work Phone: LV Systolic Volume (BP) 72 mL Abnormal 21 - 61 mL T [facility] Work Phone: LV Systolic Volume Index (BP) 26 mL/m2 [employer] Work Phone: LVIDD 5.8 cm 4.2 - 5.8 cm [facility] Work Phone: LVIDD Index 2.12 cm/m2 [facility] Work Phone: LVIDS 3.3 cm 2.5 - 4.0 cm [facility] Work Phone: LVIDS Index 1.21 cm/m2 [facility] Work Phone: LVOT Mean Grad 6 mmHg [facility] Work Phone: LVOT Mean Berhane 1.2 m/s [facility] Work Phone: LVOT Peak Gradient 10 mmHg [facility] Work Phone: LVOT Peak Berhane 1.6 m/s [facility] Work Phone: LVOT Peak VTI 33.2 cm [facility] Work Phone: LVOT:AV VTI Index 1.02 [facility] Work Phone: LVPWD 0.9 cm 0.6 - 1.0 cm [facility] Work Phone: Microscopic observation Hans (Ear) [Interp] 1.0 [facility] Work Phone: MV E' Tissue Velocity Lateral 14 cm/s [facility] Work Phone: MV E' Tissue Velocity Septal 11 cm/s [facility] Work Phone: MV Peak A Berhane 1.31 m/s [facility] Work Phone: MV Peak E Berhane 1.33 m/s [facility] Work Phone: Relative Wall Thickness ratio 0.31 [employer] [facility] Work Phone: RV Diastolic Basal Dimension 3.4 cm 2.5 - 4.1 cm [facility] Work Phone: RV Diastolic Length 8.9 cm Abnormal 5.9 - 8. 3 cm [employer] Phone: RV Diastolic Mid Dimension 3.0 cm 1 .9 - 3.5 cm [employer] Phone: [employer] Phone: Transthoracic echocardiogram (TTE) complete with PRN [...] panelon 04-13-2022 Anion gap [Moles/Vol] 11 mmol/L [facility] Calcium [Mass/Vol] 9.1 mg/dL 8.9 - 10. 3 mg/dL [facility] Chloride [Moles/Vol] 99 mmol/L 98 - 10 7 mmol/L [facility] CO2 [Moles/Vol] 23 mmol/L 22 - 32 mmol/L [facility] Creatinine [Mass/Vol] 0.68 mg/dL 0.60 - 1.30 mg/dL [facility] GFR/1.73 sq M.predicted MDRD (S/P/Bld) [Vol rate/Area] 117 mL/min/{1.73_m2} mL/min/1.7 3m2 [facility] Glucose [Mass/Vol] 94 mg/dL 70 - 99 mg/dL [facility] Interpretation and review of laboratory results Abnormal [facility] Potassium [Moles/Vol] 4.1 mmol/L 3.6 - 5.1 mmol/L [facility] Sodium [Moles/Vol] 133 mmol/L Low 136 - 145 mmol/L [facility] Urea nitrogen [Mass/Vol] 9 mg/dL 8 - 20 mg/dL [facility] Urea nitrogen/Creatinine [Mass ratio] 13.2 mg/mg [facility] CT Angio Chest wo and/or w C [facility] 04-13-2022 Initial injection was suboptimal and nondiagnostic. [...] By: Self Edit Transcribed Date: 04/13/2022 17:31 [facility] Fibrin D-dimer DDU (PPP) [Ma ss/Vol]on 04-13-2022 Fibrin D-dimer FEU (PPP) [Mass/Vol] 0.51 High <0.50 mcg/mL FEU [facility] Comment on above: Cutoff 0.49 mcg/ml F [...] Interpretation and review of laboratory results Abnormal [facility] Lymphocytes (Bld) [#/Vol] 0.80 10*3/uL Low [facility] Lymphocytes/100 WBC (Bld) 17.5 % Low 22 .0 - 44.0 % [facility] MCH (RBC) [Entitic mass] 30.1 pg [facility] MCHC (RBC) [Mass/Vol] 33.3 g/dL 32.0 - 36.0 g/dL [facility] MCV (RBC) [Entitic vol] 90.4 fL [facility] Monocytes (Bld) [#/Vol] 0.50 10*3/uL [facility] [...] Health WBC (Bld) [#/Vol] 4.5 10*3/uL Low [facility] Magnesiumon 04-13-2022 Magnesium [Mass/Vol] 1.8 mg/dL 1.8 - 2 .5 mg/dL [facility] Magnesium [Mass/Vol]on 04-13 Interpretation and review of laboratory results Normal [facility] No Panel Informationon 04-13 [facility] SARS-CoV-2 (COVID-19) RNA NA A+probe Ql (Resp)on 04-13-2022 Interpretation and review of laboratory results Normal [facility] SARS-CoV-2 (COVID-19) RdRp gene CHARLIE+probe Ql (Resp) Not detected Not Detected [facility] Tropinin I.cardiac panel Hig h sensitivity methodon 04-13-2022 Interpretation and review of laboratory results Abnormal [facility] Troponin I.cardiac High sensitivity method [Mass/Vol] 22 ng/L High <20 [facility] Interpretation and review of laboratory results Abnormal [facility] Troponin I.cardiac High sensitivity method [Mass/Vol] 21 ng/L High <20 [facility] Interpretation and review of laboratory results Normal [facility] Troponin I.cardiac High sensitivity method [Mass/Vol] 16 ng/L <20 [facility] XR Chest 2 Viewson Nonacute study. [...] By: Self Edit Transcribed Date: 04/13/2022 15:12 [employer] Radiology Study observation (narrative) [facility] XR Chest 2 ViewsOrdered By: Tanmay Vicente on 04-13-2022 [facility] Work Phone: XR Abdomen Single viewon No [...] By: Self Edit Transcribed Date: 03/25/2022 12:41 [facility] Radiology Study observation (narrative) [facility] [employer] [facility] XR Abdomen Single viewOrdere d By: Jean Carlos Monroy on 03-25-2022 [facility] [employer] [facility] Work Phone: XR ABDOMEN /KUB/FLAT PLATE/1 VIEWon [...] UP[employer]. Workstation ID: [id number] Dictated by: PAUL GARDNER on Sat Mar 13, 2022 7:24:20 PM EDT Transcribed by: PAUL GARDNER on Sat Mar 13, 2022 7:24:20 PM EDT Finalized by: PAUL GARDNER on Sat Mar 13, 2022 7:24:20 PM EDT [facility] Comment on above: Order Comment: Injur y/Trauma [...] Nom (Bld) Blood group B Rh(D) positive [facility] ABO and Rh group Nom (Bld) ABO/Rh Verification [facility] Comment on above: Patient's ABO/Rh is verified. [facility] APTTOrdered By: Sukhwinder Villalobos on 04-22-2021 aPTT Coag (Bld) [Time] 33 s [facility] Basic metabolic 2000 panelOr dered By: Sukhwinder Villalobos on 04-22-2021 Anion gap [Moles/Vol] 16 mmol/L 10 - 2 0 mmol/L [facility] Calcium [Mass/Vol] 8.9 mg/dL 8.4 - 10. 2 mg/dL [facility] Chloride [Moles/Vol] 102 mmol/L 98 - 10 8 mmol/L [facility] Creatinine [Mass/Vol] 0.52 mg/dL 0.50 - 1.30 [facility] GFR/1.73 sq M.predicted CKD-EPI (S/P/Bld) [Vol rate/Area] 132 >=60 mL/min/1.7 3 m2 [facility] Glucose [Mass/Vol] 106 mg/dL High 65 - 99 mg/dL [facility] HCO3 [Moles/Vol] 24 mmol/L 21 - 32 mmol/L [facility] Interpretation and review of laboratory results Abnormal [facility] Potassium [Moles/Vol] 4.2 mmol/L 3.5 - 5.1 mmol/L [facility] Sodium [Moles/Vol] 138 mmol/L 135 - 145 mmol/L [facility] Urea nitrogen [Mass/Vol] 8 mg/dL 8 - 25 mg/dL [facility] Urea nitrogen/Creatinine [Mass ratio] 15.4 mg/mg [facility] The eGFR should be used for monitoring renal function only and not for medication dosing. [facility] Blood type and Indirect anti body screen panel (Bld)Ordered By: Sukhwinder Villalobos on 04-22-2021 ABO and Rh group Nom (Bld) Blood group B Rh(D) positive [facility] Blood group antibody screen Ql Negative [facility] Specimen Expires 04/25/2021 23:59 EST [facility] CBC WITH AUTO DIFFERENTIALOr dered By: Sukhwinder Villalobos on 04-22-2021 Basophils (Bld) [#/Vol] 0.08 10*3/uL [facility] Basophils/100 WBC (Bld) 1.8 % [facility] Eosinophils (Bld) [#/Vol] 0.29 10*3/uL [facility] Eosinophils/100 WBC (Bld) 6.4 % [facility] Erythrocyte distribution width (RBC) [Entitic vol] 15.5 % High 11.6 - 14.8 % [facility] Hematocrit (Bld) [Volume fraction] 43.8 % 41.0 - 53.0 % [facility] Hemoglobin (Bld) [Mass/Vol] 14.2 g/dL 13.5 - 17.5 g/dL [facility] Immature granulocytes (Bld) [#/Vol] 0.02 10*3/uL [facility] Immature granulocytes/100 WBC (Bld) 0.40 % [facility] Comment on above: The IG parameter is the percentage of metamyelocytes, myelocytes and promyelocytes. An immature granulocyte count (IG) of 1% or more suggests the possibility of infection, an IG count of 3% is very likely related to an infection. Interpretation and review of laboratory results Abnormal [facility] Lymphocytes (Bld) [#/Vol] 1.19 10*3/uL [facility] Lymphocytes/100 WBC (Bld) 26.2 % [facility] MCH (RBC) [Entitic mass] 30.1 pg 26. 0 - 34.0 pg [facility] MCHC (RBC) [Mass/Vol] 32.4 g/dL 31.0 - 37.0 g/dL [facility] MCV (RBC) [Entitic vol] 93.0 fL 80.0 - 100.0 fL [facility] Monocytes (Bld) [#/Vol] 0.76 10*3/uL [facility] Monocytes/100 WBC (Bld) 16.7 % [facility] Neutrophils (Bld) [#/Vol] 2.20 10*3/uL [facility] Neutrophils/100 WBC (Bld) 48.5 % [facility] Nucleated RBC (Bld) [#/Vol] 0.00 10*3/uL [facility] Nucleated RBC/100 WBC (Bld) [Ratio] 0.0 % [facility] Platelet mean volume (Bld) [Entitic vol] 10.6 fL 9.4 - 12.4 fL [facility] Platelets (Bld) [#/Vol] 78 10*3/uL Low [facility] Comment on above: Results checked RBC (Bld) [#/Vol] 4.71 10*6/uL [facility] WBC (Bld) [#/Vol] 4.54 10*3/uL [facility] Glucose (Bld) [Mass/Vol]Orde red By: Sukhwinder Villalobos on 04-22-2021 Glucose [Mass/Vol] 102 mg/dL High 65 - 99 mg/dL [facility] Interpretation and review of laboratory results Abnormal [facility] Glucose [Mass/Vol] 100 mg/dL High 65 - 99 mg/dL [facility] Interpretation and review of laboratory results Abnormal [facility] INR Coag (PPP) [Relative abdulkadir e]Ordered By: Sukhwinder Villalobos on 04-22-2021 Interpretation and review of laboratory results Abnormal [facility] PT Coag (PPP) [Time] 15.2 s [facility] During the induction phase of oral anticoagulation, the INR may not reflect the anticoagulation status of the patient. Therapeutic ranges for INR's are: Most clinical situations: INR 2.0-3.0 Mechanical Prosthetic Valve: INR 2.5-3.5 Critical: INR >5.0 [facility] No Panel InformationOrdered By: Sukhwinder Villalobos on 04-22-2021 [facility] PT/INROrdered By: Sukhwinder berg on 04-22-2021 INR Coag (PPP) [Relative time] 1.2 {INR} High [facility] SCAN OTHER ORDERSOrdered By: Provider System on 04-22-2021 Ordered by an unspecified provider. [facility] aPTT Coag (Bld) [Time]Ordere d By: Sukhwinder Villalobos on 04-22-2021 Interpretation and review of laboratory results Normal [facility] Therapeutic range for APTT's is 68 - 104 seconds [facility] US ABDOMEN LIMITED STUDYon 0 03-20-2021 [...] contour. Findings raise suspicion for possible cirrhosis. [employer] Workstation ID: [id number] Dictated by: MAURO ZEE on TueMarch 20, 2021 8:18:33 AM EDT Transcribed by: ROMY MOE on TueMarch 20, 2021 8:19:53 AM EDT Finalized by: MAURO ZEE on TueMarch 22, 2021 10:22:08 PM EDT Normal [facility] Comment on above: Order Comment: Injur y/Trauma or Illness?:Illness/Other How long have you had these symptoms (acute/chronic)?:Chronic Reason for exam?:Abdominal bloating History of cancer?: Surgeries, chemotherapy, or radiation?: Type of Exam?:Initial Additional signs and symptoms?:History of fatty liver disease with possible cirrhosis per patient Alpha Fetoprotein Tumor Elieser rian 12-24-2020 AFP.tumor marker [Mass/Vol] 2.4 ng/mL Normal 0.0-9.0 [facility] Comment on above: Result Comment: REFE RENCE [...] method. Performed By: #### 5 3962-7 #### [facility] [address] [place] [address] US Abdomen Ltdon 10-14-2020 US Abdomen limited [...] hepatic morphology. 2. Nonvisualization of the pancreas. [facility] thanks you for the opportunity to care for your patient. Workstation ID: [id number] - [id number] FINAL REPORT Dictated By: Rudi Joshi MD 10/14/2020 11:22 Assigned Physician: Rudi Joshi MD Reviewed and Electronically Signed By: Rudi Joshi MD 10/14/2020 11:24 Transcribed by: [facility] 10/14/2020 11:22 Normal [facility] Glucose POCT (Uploaded)on Glucose [Mass/Vol] 87 mg/dL Normal 70-99 [facility] Comment on above: Result Comment: Samantha tment [...] RIDER /Sex: 1980 Male Med Rec #: [id number] Physician: Financial #: [id number] Pt. Type: I Room/Bed: / Admit/Disch: 06/26/20 12:03:00 - Institution: [facility] Case Times Entry 1 Patient [...] Lani Wang Role Performed Primary Surgeon Anesthesiologist regional guide Time In 06/26/20 13:58:00 06/26/20 13:58:00 06/26/20 13:58:00 Time Out 06/26/20 14:13:00 06/26/20 14:13:00 06/26/20 14:13:00 Procedure Egd with Biopsy_(N/A) Egd with Biopsy_(N/A) Egd with Biopsy_(N/A) Attendee Comment Relief Reason Last Modified By: Dionna WAYNE , Lani Villareal RN , Lani Villareal RN , Lani Wang 06/26/20 14:20:23 06/26/20 14:20:23 06/26/20 14:20:23 Entry 4 Case Attendee Jazmyn Meadows Role Performed 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 Last Modified By: Lani Villareal RN 06/26/20 14:13:22 [facility] Surgical Procedures Entry 1 Procedure Egd with Biopsy_ Primary Procedure Yes Modifiers N/A Procedure Wound None Class Primary Surgeon Dandy Healy MD Surgical Service Endoscopy Service Anesthesia Type MAC Procedure Performed EGD Start 06/26/20 14:03:00 Stop 06/26/20 14:09:00 Last Modified By: Lani Villareal RN 06/26/20 14:21:10 [facility] Fire Risk Assessment Entry 1 Alcohol [...] 02 (less than 30% when able) [facility] Interventional Checklist Entry 1 TIme Out [...] By: Lani Villareal RN 06/26/20 14:21 Normal [facility] Patient Summaryon 06-26-2020 Patient Summary PATIENT DISCHARGE INSTRUCTIONS If you are having an emergency and are not able to reach your physician, CALL 911 or go to the nearest emergency room and take this document with you. [facility] 06/26/20 14:28 [address] [place]. [address] PATIENT INFORMATION Name: LEON RIDER Address: [address] [place] [address] [place] [address] Age: 40 Years Phone: [phone] : 1980 12:00 MRN: [id number] Sex: Male Race: White Ethnicity: Not Hispan/Lat Admitted From: Clinic or [facility] Medical Service: Gastroenterology Nurse Unit/Bed: (GABINO) [...] doses are changed, or new medications (including bcui-jnu-howalpw products) are added. Ask your doctor if [...] suicide hotline, anytime day or night, at 0-457-083-TTYO. Important information about accessing your health information through the [facility] patient portal If you initiated the self-registration process for [facility] during your stay, please check your personal email for an invitation to enroll in [facility] and complete the steps outlined in the email. If you would prefer to enroll while in the hospital, ask a member of your care team. We would be happy to assist you. If you have already enrolled in [facility], go to [email or web address] to login and access your health information. Thank you for choosing [facility]. PATIENT EDUCATION PATIENT DISCHARGE INSTRUCTION Signature Page for: LEON RIDER Date/Time: 06/26/2020 14:28:21 A Clinician has explained the information on my discharge instructions and has provided me with a copy. My questions have been answered to my satisfaction. Patient Signature _ Date/Time Responsible Party Date/Time Relationship to Patient Clinician Signature Date/Time Normal [facility] Post PACU Nursingon 06-26-20 20 Post PACU Nursing [facility] PACU Nursing Record Summary Primary Physician: Dandy Healy MD Finalized Date/Time: 06/26/20 15:04:08 Pt. Name: LEON RIDER J /Sex: 1980 Male Med Rec #: [id number] Physician: Financial #: [id number] Pt. Type: I Room/Bed: / Admit/Disch: 06/26/20 [...] 15:03 Lani Villareal RN 06/26/20 15:04 Normal [facility] PreOp Nursingon 06-26-2020 PreOp Nursing [facility] PreOp Nursing Record Summary Primary Physician: Dandy Healy MD Finalized Date/Time: 06/26/20 15:07:13 Pt. Name: ADRYLEON/Sex: 1980 Male Med Rec #: [id number] Physician: Financial #: [id number] Pt. Type: I Room/Bed: / Admit/Disch: 06/26/20 [...] By: Angelic Enrique RN 06/26/20 15:07 Normal [facility] Surgical Pathology Final Rep [facility] 06-26-2020 Pathology study LEON RIDER [id number] YRS M [id number] RM/BD ORDERING PHYSICIAN: DANDY HEALY 577 RESULT [...] cassette. (ES/1C/MS/RT-BAG) Gross examination was performed at [facility]. AJB:CHUCHO 06/26/20 By: GERRY REYNA M.D. AT [facility] (Electronic Signature) MICROSCOPIC: The technical component was performed at [facility], [address] [place] [address]. Microscopic examination was performed. Case resulted at [facility]. The immunohistochemical and/or in situ hybridization tests reported here have been developed and their performance characteristics determined by the [facility] [address] [place] [address]. It has not been cleared or approved [...] END OF REPORT END OF REPORT Normal [facility] Coronavirus (COVID-19/SARS-C oV-2) [facility] 06-23-2020 SARS-CoV-2 NOTDET Normal NOTDET [facility] Comment on above: Result Comment: This test was performed via the Aptima SARS-CoV-2 Assay (TeamBuy) and has been authorized by the FDA under an Emergency Use Authorization (EUA). The assay is validated for nasopharyngeal (REPEAT PHOTOCOMPOSING MACHINE OPERATOR), nasal, and oropharyngeal (OP) swab specimens. The forest fire warden's stated Limit of Detection is 0.01 TCID50/mL [...] www.cdc.gov/coronavirus. Performed By: #### 9 4532-9x5 #### [address] [address] Alpha Fetoprotein Tumor Elieser rian 06-18-2020 AFP.tumor marker [Mass/Vol] 3.2 ng/mL Normal 0.0-9.0 [facility] Comment on above: Result Comment: REFE RENCE [...] immunoassay method. Performed By: #### 5 3962-7 ####[facility] [address] [place] [address] CBC with Differentialon Basophils (Bld) [#/Vol] 0.00 thou/mcL Normal 0.00-0.20 [facility] Comment on above: Performed By: #### 5 7021-8 #### [facility] [address] [place] [address] Basophils/100 WBC (Bld) 0.5 % Normal 0.0-2.0 [facility] Comment on above: Performed By: #### 5 7021-8 #### [facility] [address] [place] [address] Eosinophils (Bld) [#/Vol] 0.30 thou/mcL Normal 0.00-0. 70 [facility] Comment on above: Performed By: #### 5 7021-8 #### [address] [address] Eosinophils/100 WBC (Bld) 5.5 % Normal 0.0-7.0 [facility] Comment on above: Performed By: #### 5 7021-8 #### [address] [address] Erythrocyte distribution width (RBC) [Entitic vol] 17.1 % High 11.0-14.8 [facility] Comment on above: Performed By: #### 5 7021-8 #### [address] [address] Hematocrit (Bld) [Volume fraction] 42.0 % Normal 39.0-49.0 [facility] Comment on above: Performed By: #### 5 7021-8 #### [address] [address] Hemoglobin (Bld) [Mass/Vol] 14.0 g/dL Normal 13.5-17.5 [facility] Comment on above: Performed By: #### 5 7021-8 #### [address] [address] Lymphocytes (Bld) [#/Vol] 1.10 thou/mcL Normal 1.00-4. 80 [facility] Comment on above: Performed By: #### 5 7021-8 #### [address] [address] Lymphocytes/100 WBC (Bld) 24.2 % Normal 22.0-44.0 [facility] Comment on above: Performed By: #### 5 7021-8 #### [address] [place] [address] MCH (RBC) [Entitic mass] 29.7 Picograms Normal 27.0-34 .0 [facility] Comment on above: Performed By: #### 5 7021-8 #### [facility] [address] [place] [address] MCHC (RBC) [Mass/Vol] 33.4 g/dL Normal 32.0-36.[address] [facility] Comment on above: Performed By: #### 5 7021-8 #### [facility] [address] [place] [address] MCV (RBC) [Entitic vol] 88.8 fL Normal 80.0-97.0 [facility] Comment on above: Performed By: #### 5 7021-8 #### [facility] [address] [place] [address] Monocytes (Bld) [#/Vol] 0.90 thou/mcL Normal 0.00-0.90 [facility] Comment on above: Performed By: #### 5 7021-8 #### [facility] [address] [place] [address] Monocytes/100 WBC (Bld) 18.2 % High 0.0-12.0 [facility] Comment on above: Performed By: #### 5 7021-8 #### [facility] [address] [place] [address] Neutrophils (Bld) [#/Vol] 2.40 thou/mcL Normal 1.80-7. 70 [facility] Comment on above: Performed By: #### 5 7021-8 #### [facility] [address] [place] [address] Neutrophils/100 WBC (Bld) 51.6 % Normal 40.0-70.0 [facility] Comment on above: Performed By: #### 5 7021-8 #### [facility] [address] [place] [address] Platelet mean volume (Bld) [Entitic vol] 9.9 fL Normal 6.2-12.1 [facility] Comment on above: Performed By: #### 5 7021-8 #### [facility] [address] [place] [address] Platelets (Bld) [#/Vol] 76 thou/mcL Low 142-424 [facility] Comment on above: Result Comment: Resu lt confirmed by slide review. Performed By: #### 5 7021-8 #### [facility] [address] [place] [address] RBC (Bld) [#/Vol] 4.72 million/mcL Normal 4.30-5.70 [facility] Comment on above: Performed By: #### 5 7021-8 #### [facility] [address] [place] [address] WBC (Bld) [#/Vol] 4.7 thou/mcL Normal 4.6-10.2 [facility] Comment on above: Performed By: #### 5 7021-8 #### [facility] [address] [place] [address] Hepatic Function Panelon Albumin [Mass/Vol] 3.1 g/dL Low 3.5-4.8 [facility] Comment on above: Performed By: #### 2 4325-3 #### [facility] [address] [place] [address] ALP [Catalytic activity/Vol] 104 Units/L High 32-91 [facility] Comment on above: Performed By: #### 2 4325-3 #### [facility] [address] [place] [address] ALT [Catalytic activity/Vol] 35 Units/L Normal 14-63 [facility] Comment on above: Performed By: #### 2 4325-3 #### [facility] [address] [place] [address] AST [Catalytic activity/Vol] 42 Units/L High 15-41 [facility] Comment on above: Performed By: #### 2 4325-3 #### [facility] [address] [place] [address] Bilirubin [Mass/Vol] 1.2 mg/dL Normal 0.3-1.2 [facility] Comment on above: Performed By: #### 2 4325-3 #### [facility] [address] [place] [address] Bilirubin.direct [Mass/Vol] 0.3 mg/dL Normal 0.1-0.5 [facility] Comment on above: Performed By: #### 2 4325-3 #### [facility] [address] [place] [address] Bilirubin.indirect [Mass/Vol] 0.9 mg/dL Normal 0.0-1.0 [facility] Comment on above: Performed By: #### 2 4325-3 #### [facility] [address] [place] [address] Protein [Mass/Vol] 7.0 g/dL Normal 6.1-7.9 [facility] Comment on above: Performed By: #### 2 4325-3 #### [facility] [address] [place] [address] Vital Signs Date Time Vital Sign Value Performing Clinician Facility 01-28-2025 14:52-0400 Body height 180.34 cm Alis Mace MD Work Phone: [facility] 01-28-2025 14:52-0400 Body mass index (BMI) [Ratio] 50.3 kg/m2 Alis Mace MD Work Phone: [facility] 01-28-2025 14:52-0400 Body temperature 97.6 [degF] Alis Mace MD Work Phone: [facility] 01-28-2025 14:52-0400 Body weight 163.74 kg Alis Mace MD Work Phone: [facility] 01-28-2025 14:52-0400 Diastolic blood pressure 82 mm[Hg] Alis Mace MD Work Phone: [facility] 01-28-2025 14:52-0400 Heart rate 82 /min Alis Mace MD Work Phone: [facility] 01-28-2025 14:52-0400 Respiratory rate 18 /min Alis Mace MD Work Phone: [facility] 01-28-2025 14:52-0400 SaO2% (BldA) [Mass fraction] 97 % Alis Mace MD Work Phone: [facility] 01-28-2025 14:52-0400 Systolic blood pressure 140 mm[Hg] Alis Mace MD Work Phone: [facility] 04-23-2024 08:20-0400 Body height 179.07 cm Fiona Satkowiak PA-C [facility] 04-23-2024 08:20-0400 Body mass index (BMI) [Ratio] 48.07 kg/m2 Fiona Satkowiak PA-C [facility] 04-23-2024 08:20-0400 Body weight 154.13 kg Fiona Satkowiak PA-C [facility] 03-22-2024 09:33-0400 Body mass index (BMI) [Ratio] 51.6 kg/m2 Zack Vigil MD Work Phone: [facility] 03-22-2024 09:33-0400 Body weight 165.47 kg Zack Vigil MD Work Phone: [facility] 03-22-2024 09:33-0400 Diastolic blood pressure 80 mm[Hg] Zack Vigil MD Work Phone: [facility] 03-22-2024 09:33-0400 Heart rate 84 /min Zack Vigil MD Work Phone: [facility] 03-22-2024 09:33-0400 Systolic blood pressure 130 mm[Hg] Zack Vigil MD Work Phone: [facility] 09-25-2023 04:18-0500 Diastolic blood pressure 80 mm[Hg] Bernabe Dooley MD Work Phone: [facility] 09-25-2023 04:18-0500 Heart rate 82 /min Bernabe Dooley MD Work Phone: [facility] 09-25-2023 04:18-0500 Respiratory rate 16 /min Bernabe Dooley MD Work Phone: [facility] 09-25-2023 04:18-0500 SaO2% (BldA) [Mass fraction] 98 % Bernabe Dooley MD Work Phone: [facility] 09-25-2023 04:18-0500 Systolic blood pressure 145 mm[Hg] Bernabe Dooley MD Work Phone: [facility] 09-24-2023 18:17-0500 Body temperature 98.01 [degF] Bernabe Dooley MD Work Phone: [facility] 09-24-2023 18:11-0500 Body height 180.3 cm Bernabe Dooley MD Work Phone: [facility] 09-24-2023 18:11-0500 Body mass index (BMI) [Ratio] 51.6 kg/m2 Bernabe Dooley MD Work Phone: [facility] 09-24-2023 18:11-0500 Body weight 167.83 kg Bernabe Dooley MD Work Phone: [facility] 02-16-2023 09:50-0400 Diastolic blood pressure 66 mm[Hg] [address] 02-16-2023 09:50-0400 Heart rate 86 /min [address] 02-16-2023 09:50-0400 Respiratory rate 15 /min [address] 02-16-2023 09:50-0400 SaO2% (BldA) [Mass fraction] 97 % [address] 02-16-2023 09:50-0400 Systolic blood pressure 140 mm[Hg] [address] 02-16-2023 09:25-0400 Body temperature 98.6 [degF] [address] 02-16-2023 09:00-0400 Body height 180.[address] 02-16-2023 09:00-0400 Body mass index (BMI) [Ratio] 52.09 kg/m2 [address] 02-16-2023 09:00-0400 Body weight 169.[address] 12-23-2022 11:10-0500 Diastolic blood pressure 92 mm[Hg] [address] 12-23-2022 11:10-0500 Heart rate 76 /min [address] 12-23-2022 11:10-0500 Respiratory rate 15 /min [address] 12-23-2022 11:10-0500 SaO2% (BldA) [Mass fraction] 97 % [address] 12-23-2022 11:10-0500 Systolic blood pressure 156 mm[Hg] [address] 12-23-2022 10:41-0500 Body temperature 99.1 [degF] [address] 12-23-2022 09:15-0500 Body height 180.[address] 12-23-2022 09:15-0500 Body mass index (BMI) [Ratio] 53.44 kg/m2 [address] 12-23-2022 09:15-0500 Body weight 173.[address] 10-27-2022 18:15-0500 Diastolic blood pressure 87 mm[Hg] [address] 10-27-2022 18:15-0500 Heart rate 79 /min [address] 10-27-2022 18:15-0500 Respiratory rate 15 /min [address] 10-27-2022 18:15-0500 SaO2% (BldA) [Mass fraction] 100 % [address] 10-27-2022 18:15-0500 Systolic blood pressure 152 mm[Hg] [address] 10-27-2022 17:50-0500 Body temperature 97.5 [degF] [address] 10-26-2022 12:00-0500 Body height 180.[address] 10-26-2022 12:00-0500 Body mass index (BMI) [Ratio] 53 kg/m2 [address] 10-26-2022 12:00-0500 Body weight 172.37 kg McCe 03 [facility] 04-14-2022 15:29-0400 Body temperature 97.9 [degF] Tye Holbrook MD Work Phone: [facility] 04-14-2022 15:29-0400 Diastolic blood pressure 83 mm[Hg] Tye Holbrook MD Work Phone: [facility] [facility] 04-14-2022 15:29-0400 Heart rate 94 /min Tye Holbrook MD Work Phone: [facility] 04-14-2022 15:29-0400 SaO2% (BldA) [Mass fraction] 94 % Tye Holbrook MD Work Phone: [facility] 04-14-2022 15:29-0400 Systolic blood pressure 152 mm[Hg] Tey Holbrook MD Work Phone: [facility] 04-14-2022 14:07-0400 Body height 180.3 cm Tye Holbrook MD Work Phone: [facility] 04-14-2022 14:07-0400 Body mass index (BMI) [Ratio] 51.19 kg/m2 Tye Holbrook MD Work Phone: [facility] 04-14-2022 14:07-0400 Body weight 166.47 kg Tye Holbrook MD Work Phone: [facility] 04-14-2022 03:00-0400 Respiratory rate 18 /min Tye Holbrook MD Work Phone: [facility] 04-22-2021 08:50-0400 Body temperature 98.29 [degF] Sukhwinder Villalobos MD Work Phone: [facility] 04-22-2021 08:50-0400 Diastolic blood pressure 65 mm[Hg] Sukhwinder Villalobos MD Work Phone: [facility] 04-22-2021 08:50-0400 Heart rate 94 /min Sukhwinder Villalobos MD Work Phone: [facility] 04-22-2021 08:50-0400 Respiratory rate 13 /min Sukhwinder Villalobos MD Work Phone: [facility] 04-22-2021 08:50-0400 SaO2% (BldA) [Mass fraction] 92 % Sukhwinder Villalobos MD Work Phone: [facility] 04-22-2021 08:50-0400 Systolic blood pressure 117 mm[Hg] Sukhwinder Villalobos MD Work Phone: [facility] 04-22-2021 06:38-0400 Body height 180.3 cm Sukhwinder Villalobos MD Work Phone: [facility] 04-22-2021 06:38-0400 Body mass index (BMI) [Ratio] 53.35 kg/m2 Sukhwinder Villalobos MD Work Phone: [facility] 04-22-2021 06:38-0400 Body weight 173.5 kg Sukhwinder Villalobos MD Work Phone: [facility] Encounters Encounter Date Encounter Type Care Provider Facility Start: 04-29-2025 End: 04-29-2025 ambulatory Alis Mace MD Work Phone: [facility] Work Phone: Start: 04-29-2025 End: 04-29-[address] Alis Mace MD -[facility] Start: 04-29-2025 End: 04-29-2025 ambulatory Alis Mace Facility:[facility] Start: 01-28-2025 End: 01-28-[address] Lorie Willson MD -[facility] Work Phone: Start: 01-28-2025 End: 01-28-2025 ambulatory Alis Mace Facility:[facility] Start: 06-20-2024 End: 06-20-2024 ambulatory Alis Mace Facility:[facility] Start: 04-23-2024 End: 04-23-2024 Office outpatient visit 15 minutes Fiona Beckman Work Phone: [facility] Start: 03-22-2024 ambulatory ZACK VIGIL [facility] Start: 03-22-2024 End: 03-22-2024 Office outpatient visit 25 minutes Zack Vigil MD Work Phone: [facility] Comment on above: Hyperlipidemia, unsp ecified hyperlipidemia type (Primary Dx); Primary hypertension; Cirrhosis of liver without ascites, unspecified hepatic cirrhosis type (CMS/HCC) (HCC); Type 2 diabetes mellitus without complication, without long-term current use of insulin (CMS/HCC) (HCC) Start: 03-20-2024 ambulatory ZACK VIGIL [facility] Start: 01-20-2024 End: 01-20-2024 Office outpatient visit 15 minutes Fiona Beckman Work Phone: [facility] Start: 01-19-2024 End: 01-19-2024 Encounter identifier Nathalia Angela Work Phone: [facility] Start: 01-17-2024 End: 01-17-2024 Encounter identifier Nathalia Angela Work Phone: [facility] Start: 01-12-2024 End: 01-12-2024 Encounter identifier Nathalia Angela Work Phone: [facility] Start: 01-06-2024 End: 01-06-2024 Encounter identifier Nathalia Angela Work Phone: [facility] Start: 01-05-2024 End: 01-05-2024 Encounter identifier Nathalia Angela Work Phone: [facility] Start: 12-29-2023 End: 12-29-2023 Encounter identifier Nathalia Angela Work Phone: [facility] Start: 12-27-2023 End: 12-27-2023 Encounter identifier Nathalia Angela Work Phone: [facility] Start: 12-17-2023 [facility] Start: 12-16-2023 ambulatory ZACK VIGIL [facility] Start: 12-09-2023 ambulatory ZACK VIGIL [facility] Start: 12-02-2023 End: 12-02-2023 Office outpatient visit 25 minutes Tj Howell Work Phone: [facility] Start: 11-23-2023 [facility] Start: 11-22-2023 Patient encounter procedure Zack Vigil MD Work Phone: [facility] Work Phone: Start: 11-22-2023 Encounter for genera l adult medical examination without abnormal findings [facility] Start: 11-22-2023 ambulatory ZACK VIGIL [facility] Start: 11-22-2023 End: 11-22-2023 ambulatory ZACK [facility] Start: 11-22-2023 End: 11-22-2023 Encounter for general adult medical examination without abnormal findings [facility] Start: 11-02-2023 End: 11-02-2023 Encounter identifier Tj Howell Work Phone: [facility] Start: 10-12-2023 End: 10-12-2023 Office outpatient new 45 minutes Tj Howell Work Phone: [facility] Start: 09-24-2023 End: 09-25-2023 Emergency department patient visit BERNABE DOOLEY [facility] Start: 09-24-2023 End: 09-25-2023 Emergency department patient visit Bernabe Doloey MD Work Phone: [facility] Comment on above: Painless hematuria ( Primary Dx) Start: 09-24-2023 End: 09-25-2023 Evaluation and management of inpatient Bernabe Dooley MD Work Phone: [facility] Start: 02-16-2023 ambulatory VINCENT MOSES [facility] Start: 02-16-2023 End: 02-16-2023 Evaluation and management of inpatient McSa Proc Rm 02 [facility] Start: 02-16-2023 End: 02-16-2023 Subsequent hospital visit by physician Vincent Moses MD Work Phone: [facility] Comment on above: Esophageal varices w ithout bleeding, unspecified esophageal varices type (CMS/HCC) [I85.00 (ICD-10-CM)] (Primary Dx); Esophageal varices without bleeding (CMS/HCC) Start: 12-23-2022 ambulatory TAD COLLINS H V~[id number] [facility] Start: 12-23-2022 End: 12-23-2022 Evaluation and management of inpatient McSa Proc Rm 02 [facility] Start: 12-23-2022 End: 12-23-2022 Subsequent hospital visit by physician Paul Mishra Work Phone: [facility] Comment on above: Esophageal varices w ithout bleeding, unspecified esophageal varices type (CMS/HCC) [I85.00 (ICD-10-CM)] (Primary Dx); Esophageal varices without bleeding (CMS/HCC) Start: 11-17-2022 ambulatory BISHOP LA [facility] Start: 11-17-2022 End: 11-17-2022 Evaluation and management of inpatient McCe Xr A [facility] Start: 11-17-2022 End: 11-17-2022 Subsequent hospital visit by physician Judit Ness [facility] Comment on above: Calculus of kidney; Calculus of kidney with calculus of ureter Start: 10-27-2022 ambulatory JOCELYNE TRACEY [facility] Start: 10-27-2022 End: 10-27-2022 Evaluation and management of inpatient McCe Proc Rm 03 [facility] Start: 10-27-2022 End: 10-27-2022 Subsequent hospital visit by physician Jocelyne Tracey MD Work Phone: [facility] Comment on above: Esophageal varices w ith bleeding (CMS/HCC) Start: 09-02-2022 ambulatory [facility] Start: 09-02-2022 End: 09-02-2022 Evaluation and management of inpatient McSam Us 1 [facility] [place] [place] Start: 09-02-2022 End: 09-02-2022 Subsequent hospital visit by physician McSam 1 [facility] [place] [place] Comment on above: GLASS (nonalcoholic s teatohepatitis) Start: 04-13-2022 End: 04-14-2022 Emergency department patient visit Tye Holbrook MD Work Phone: [facility] Comment on above: Dyspnea, unspecified type (Primary Dx); SOB (shortness of breath) Start: 04-13-2022 End: 04-14-2022 Evaluation and management of inpatient Tye Holbrook MD Work Phone: [facility] Start: 03-25-2022 End: 03-25-2022 Evaluation and management of inpatient McCe Xr A [facility] Start: 03-25-2022 End: 03-25-2022 Subsequent hospital visit by physician Judit Ness [facility] Comment on above: Stone, kidney Start: 03-13-2022 End: 03-13-2022 Emergency department patient visit [facility]UL [facility] Start: 10-13-2021 Transcribe Orders Dandy Healy MD Work Phone: [facility] Comment on above: Body mass index 45.0 -49.9, adult (CMS/HCC) (Primary Dx) Start: 10-13-2021 End: 10-13-2021 Transcribe Orders Dandy Healy MD Work Phone: [facility] Start: 04-22-2021 End: 04-22-2021 ambulatory Lala VILLALOBOS [facility] Start: 04-22-2021 End: 04-22-2021 Subsequent hospital visit by physician Sukhwinder Villalobos MD Work Phone: [facility] Start: 03-20-2021 End: 03-21-2021 ambulatory Lala VILLALOBOS [facility] Procedures Date Procedure Procedure Detail Performing Clinician [...] Urnls dip stick/tablet reagent auto microscopy Bernabe Dooley MD Work Phone: Start: 09-24-2023 YELLOW URINE [...] 09-16-2032 Screening for malignant neoplasm of colon [facility] Start: 09-14-2032 Screening for malignant neoplasm of colon Colorectal Cancer Screening: Colonoscopy [facility] Start: 07-23-2027 DTaP,Tdap,and Td Vaccines (2 - Td or Tdap) DTaP,Tdap,and Td Vaccines (2 - Td or Tdap) [facility] Start: 07-23-2027 Tdap/Td Vaccines: 21+ Years Tdap/Td Vaccines: 21+ Years [facility] Start: 07-23-2027 Tetanus vaccination Tetanus: Every 10yrs [facility] Start: 11-12-2026 Lipid panel Cholesterol Screening (Lipid Panel) [facility] Start: 03-20-2025 Creatinine measurement Creatinine Level [facility] Start: 03-20-2025 Lipid panel Lipid Panel [facility] Start: 03-20-2025 Potassium measurement Potassium Level [facility] Start: 09-24-2024 Diabetes: Annual GFR (Glomerular Filtration Rate) Diabetes: Annual GFR (Glomerular Filtration Rate) [facility] Start: 09-20-2024 Hemoglobin A1c measurement Diabetes: Hemoglobin A1C [facility] Start: 07-15-2024 Influenza vaccination Influenza Vaccine (Season Ended) [facility] Start: 01-31-2024 Hemoglobin A1c measurement Diabetes: Blood Sugar Control Test (HGBA1C) [facility] Start: 11-20-2023 Urine screening for protein Diabetes: Urine Protein Screening [facility] Start: 10-12-2023 Shoulder MRI joint, w/o contrast, Left ([id number]), Body Site: Shoulder, [facility] Start: 09-14-2023 Diabetes: Annual GFR (Glomerular Filtration Rate) Diabetes: Annual GFR (Glomerular Filtration Rate) [facility] Start: 09-14-2023 Hypertension/CHF/CAD Annual BMP Blood Test Hypertension/CHF/CAD Annual BMP Blood Test [facility] Start: 07-15-2023 COVID-19 Vaccine ( season) COVID-19 Vaccine () [facility] Start: 07-15-2023 Influenza vaccination Influenza Vaccine (#1) [facility] Start: 04-13-2023 Hypertension/CHF/CAD Annual BMP Blood Test Hypertension/CHF/CAD Annual BMP Blood Test [facility] Start: 03-08-2023 Hypertension/CHF/CAD Annual BMP Blood Test Hypertension/CHF/CAD Annual BMP Blood Test [facility] Start: 11-12-2022 Urine screening for protein Diabetes: Annual Urine Protein Test (Microalbumin) [facility] Start: 09-14-2022 Subsequent hospital visit by physician 09/14/2022 Hospital Encounter Gastroenterology Dionicio Chávez DO [address] [place] [address] [facility] Start: 07-15-2022 Influenza vaccination [facility] Start: 01-23-2022 COVID-19 Vaccine (4 - Booster for Pfizer series) COVID-19 Vaccine (4 - Booster for Pfizer series) [facility] Start: 12-02-2021 Diabetes: Annual Retina Eye Exam Diabetes: Annual Retina Eye Exam [facility] Start: 12-02-2021 Diabetes: Annual Urine Albumin-Creatinine Ratio Diabetes: Annual Urine Albumin-Creatinine Ratio [facility] Start: 12-02-2021 Diabetes: Annual Urine Albumin-Creatinine Ratio (uACR) Diabetes: Annual Urine Albumin-Creatinine Ratio (uACR) [facility] Start: 12-02-2021 Diabetic foot examination Diabetes: Annual Foot Exam [facility] Start: 12-02-2021 Hemoglobin A1c measurement Diabetes: Blood Sugar Control Test (HGBA1C) [facility] Start: 12-02-2021 Urine screening for protein Diabetes: Annual Urine Protein Test (Microalbumin) [facility] Start: 10-13-2021 End: 10-13-2022 US Abdomen Limited US Abdomen Limited Imaging Routine Body mass index 45.0-49.9, adult (CMS/HCC) Expected: 10/13/2021, Expires: 10/13/2022 [facility] Work Phone: Comment on above: Expected: 10/13/2021, Expires: Start: 07-15-2021 Influenza vaccination Influenza Vaccine (#1) [facility] Start: 04-30-2021 End: 04-30-2021 Patient encounter procedure 04/30/2021 Office Visit General Surgery Sukhwinder Villalobos MD [address] [place] [address] [phone] [facility] Start: 12-23-2019 Adolescent depression screening assessment Depression Screening [facility] Start: 12-23-2019 Hepatitis C screening Hepatitis C Screening [facility] Start: 12-23-2019 HIV screening HIV Screening [facility] Start: 12-23-2019 Lipid panel Cholesterol Screening (Lipid Panel) [facility] Start: 12-23-2019 Social Influencers of Health Screening Social Influencers of Health Screening [facility] Start: 1997 DTaP,Tdap,and Td Vaccines (1 - Tdap) DTaP,Tdap,and Td Vaccines (1 - Tdap) [facility] Start: 1996 Hepatitis C screening Hepatitis C Screening [facility] Start: 1993 HIV screening HIV Screening [facility] Start: 1990 COVID-19 Vaccine (1) COVID-19 Vaccine (1) [facility] Start: 1990 Depression screening using PHQ-9 (Patient Health Questionnaire 9) score Depression Screening (PHQ9) [facility] Start: 1988 Diabetes: Annual Retina Eye Exam Diabetes: Annual Retina Eye Exam [facility] Start: 1988 Diabetic foot examination [facility] Start: 1988 Glaucoma screening Diabetes: Retinopathy Screening [facility] Start: 1988 Microalbumin measurement, urine, quantitative Urine Microalbumin [facility] Start: 1988 Ophthalmic examination and evaluation Ophthalmology Exam [facility] Start: 1984 Pneumococcal Vaccine: Pediatrics (0 to 5 Years) and At-Risk Patients (6 to 64 Years) (1 - PCV) Pneumococcal Vaccine: Pediatrics (0 to 5 Years) and At-Risk Patients (6 to 64 Years) (1 - PCV) [facility] Start: 1984 Pneumococcal Vaccine: Pediatrics (0 to 5 Years) and At-Risk Patients (6 to 64 Years) (1 of 2 - PCV) Pneumococcal Vaccine: Pediatrics (0 to 5 Years) and At-Risk Patients (6 to 64 Years) (1 of 2 - PCV) [facility] Start: 1984 Pneumococcal Vaccine: Pediatrics (0 to 5 Years) and At-Risk Patients (6 to 64 Years) (1 of 2 - PPSV23) Pneumococcal Vaccine: Pediatrics (0 to 5 Years) and At-Risk Patients (6 to 64 Years) (1 of 2 - PPSV23) [facility] Start: 1981 History and physical examination, annual for health maintenance Wellness Visit [facility] Start: 1979 MMR Vaccines (1 of 1 - Standard series) MMR Vaccines (1 of 1 - Standard series) [facility] Start: 1978 Hemoglobin A1c measurement A1C [facility] Start: 1978 HIV screening HIV Screening [facility] Start: 1978 Screening for malignant neoplasm of colon [facility] Immunizations Immunization Date Immunization Notes Care Provider Fa cility 11-30-2022 influenza, injectabl e, quadrivalent, preservative free Zack Vigil MD Work Phone: [facility] Work Phone: 11-30-2022 influenza virus vaccine, unspecified formulation Bernabe Dooley MD Work Phone: [facility] 11-28-2021 Pfizer COVID-19, mRN A, 30 mcg/0.3mL Zack Vigil MD Work Phone: [facility] 03-22-2021 Pfizer SARS-CoV-2 Vaccination Sukhwinder Villalobos MD Work Phone: [facility] 03-01-2021 Pfizer COVID-19, mRN A, 30 mcg/0.3mL Zack Vigil MD Work Phone: [facility] 08-21-2020 influenza, injectabl e, quadrivalent, preservative free Zack Vigil MD Work Phone: [facility] 08-21-2020 influenza virus vaccine, unspecified formulation bSe [place] [facility] 10-19-2019 influenza, injectabl e, quadrivalent, preservative free Zack Vigil MD Work Phone: [facility] 08-16-2018 influenza, injectabl e, quadrivalent, preservative free Zack Vigil MD Work Phone: [facility] 07-23-2017 influenza, injectabl e, quadrivalent, preservative free Zack Vigil MD Work Phone: [facility] 07-23-2017 tetanus toxoid, reduced diphtheria toxoid, and acellular pertussis vaccine, adsorbed Zack Vigil MD Work Phone: [facility] 01-14-2017 hepatitis A vaccine, adult dosage Zack Vigil MD Work Phone: [facility] 01-14-2017 hepatitis B vaccine, adult dosage Zack Vigil MD Work Phone: [facility] 05-31-2016 Hepatitis B vaccine (recombinant), CpG adjuvanted Zack Vigil MD Work Phone: [facility] 05-31-2016 hepatitis B vaccine, adult dosage Zack Vigil MD Work Phone: [facility] Work Phone: 03-25-2016 hepatitis A vaccine, adult dosage Zack Vigil MD Work Phone: [facility] 03-25-2016 Hepatitis B vaccine (recombinant), CpG adjuvanted Zack Vigil MD Work Phone: [facility] 03-25-2016 hepatitis B vaccine, adult dosage Zack Vigil MD Work Phone: [facility] Payers Date Payer Category Payer Unknown [id number] 2024 Medicaid [id number] 2024 Self-pay 2018 Private Health Insurance [id number] 2018 Unknown [id number] 2018 Unknown [id number]. [id number] 1978 Unknown [id number] 2.16.840.1.504603.3.579.2. 900 1978 Unknown [id number] 2.16.840.1.043539.3.579.2. 902 1978 Unknown [id number] 2.16.840.1.587905.3.579.2. 902 1978 Unknown [id number] 2.16.840.1.706130.3.579.2. 1142 1978 Unknown [id number] 2.16.840.1.701885.3.579.2. 1143 1978 Unknown [id number] 2.16.840.1.425156.3.579.2. 1142 1978 Unknown [id number] 2.16.840.1.397424.3.579.2. 1143 1978 Unknown [id number] 2.16.840.1.282548.3.579.2. 1142 1978 Unknown [id number] 2.16.840.1.812019.3.579.2. 1143 1978 Unknown [id number] 2.16.840.1.317092.3.579.2. 1260 1978 Unknown [id number] 2.16.840.1.470757.3.579.2. 1260 1978 Unknown [id number] 2.16.840.1.107895.3.579.2. 1260 1978 Unknown [id number] 2.16.840.1.124889.3.579.2. 1260 1978 Unknown [id number] 2.16.840.1.040586.3.579.2. 1260 1978 Unknown [id number] 2.16.840.1.483329.3.579.2. 1260 1978 Unknown [id number] 2.16.840.1.613982.3.579.2. 1260 1978 Unknown [id number] 2.16.840.1.680500.3.579.2. 1260 1978 Unknown [id number] 2.16.840.1.297036.3.579.2. 1260 Unknown SELF INS BWC RUB BERMAID 2000 [id number] Unknown [id number] 2.16.840.1.854483.3.579.2. 462 Unknown [id number] 2.16.840.1.561193.3.579.2. 462 Unknown [id number] 2.16.840.1.812015.3.579.2. 462 Social History Date Type Detail Facility Start: 04-22-2021 End: 01-28-2025 Tobacco smoking status NHIS Never smoker [facility] Start: 04-22-2021 End: 11-22-2023 Tobacco use and exposure Never used [facility] Start: 04-22-2021 End: 09-24-2023 Alcohol intake Current drinker of alcohol (finding) [facility] Start: 04-22-2021 End: 11-22-2023 Alcohol intake [facility] Start: 02-11-2016 Alcohol Comment occasionally [facility] Start: 1980 Sex Assigned At Not on file [facility] Start: 03-15-2022 End: 02-16-2023 Exposure to SARS-CoV-2 (event) Not sure [facility] Start: 04-13-2022 End: 03-22-2024 Alcohol intake Ex-drinker (finding) [facility] Start: 10-27-2022 Alcohol Comment rare [facility] Start: 11-22-2023 End: 03-22-2024 Gender identity Not on file [facility] How often to you hav e a drink containing alcohol? Monthly or less [facility] How many standard drinks containing alcohol do you have on a typical day? 1 or 2 [facility] Work Phone: How often do you hav e 6 or more drinks on 1 occasion? Never [facility] Work Phone: How hard is it for y ou to pay for the very basics like food, housing, medical care, and heating Not very hard [facility] Work Phone: The food that (I/we) bought just didn't last, and (I/we) didn't have money to get more. Never true [facility] Work Phone: In the past 12 month s, has lack of transportation kept you from medical appointments or from getting medications? No [facility] Work Phone: In the past 12 month s, was there a time when you were not able to pay the mortgage or rent on time? No [facility] Work Phone: Start: 11-22-2023 Tobacco Comment Very brief experimentation in college [facility] Work Phone: Start: 11-22-2023 Alcohol Comment Maybe one chau jin every few years on very special occasions [facility] Work Phone: Start: 04-23-2024 Alcohol intake Alcohol Use [facility] Start: 1980 Sex Assigned At [facility] Work Phone: Start: 01-21-2020 Sexual Orientation Straight or heterosexual [facility] NEGATED: Highlighted rowStart: 04-23-2024 Tobacco smoking status NHIS Unknown if ever smoked [facility] Medical Equipment Procedure Code Equipment Code Equipment Origin al Text Equipment Identifier Dates Patch 1.7in [place] [employer] - [id number] [id number] , [id number][facility] FDA Start: 04-22-2021 Functional Status Date Assessment Result Facility 04-23-2024 Pain severity - 0-10 verbal numeric rating [Score] - Reported 11/23 [facility] Clinical Notes 04-17-2021 to 01-28-2025 Note Date & Type Note Facility 01-28-2025 Evaluation note Diagnosis Onset Date Resolution Anal fissure acute January 28, 2025 2:30pm [facility] Work Phone: 1(779) 981-664305-09-2024 History of Present illness Narrative* Zack Vigil MD - 03/22/2024 9:30 AM EDT Subjective Patient ID: Leon Rider is a 43 y.o. male who presents for Follow-up. Follow-up diabetes hypertension hyperlipidemia cirrhosis HPI Patient feeling okay. In the process of moving, they are moving up to [facility]. Very active packing and moving boxes. No further episodes of chest pain or shortness of breath since last visit, he ultimately did not end up getting a stress test. 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 Objective Visit Vitals BP 130/80 [...] after he moves documented [facility] Work Phone: 1(114) 402-815511-11-2023 History of Present illness Narrative* Bernabe Dooley [...] Urine Colorless (*) Clarity, Urine Clear Specific [place] Urine 1.010 pH, Urine 6.5 Leukocytes, Urine [...] Procedure Abnormality Status --------- ------ CBC auto differential[[id number]] Abnormal Final result Please view results for [...] Dooley MD 09/25/23 0735 documented in this encounterFairmount Behavioral Health SystemOrmlma68-11-5336 Hospital Discharge instructions* Discharge Instructions* Suki Bales [...] sent through Care Everywhere. * Esophageal Varices (Botswanan) documented in this encounterFairmount Behavioral Health SystemEoznno61-55-5234 History of Present illness Narrative* Misty Dodson RN - 02/16/2023 9:[address] Vincent Moses- Portal Hypertensive Gastropathy, (PHG) , Gastric Antral Vascular Ectasia Endoscopic report given to SENIOR PREMIUM AUDITOR - Suki Bales documented in this encounterFairmount Behavioral Health SystemCojghk54-68-8893 Attending History and physical note* Vincent Moses [...] note were not included. Kenya Andre NP [facility] Hospitalists History and Physical Same Day Surgery Patient Name:Leon Rider :1980 Admit Date: 4041217 Physicians: Zack Vigil MD (PCP) Perpetual Assessment: Leon Rider is a 42 y.o. male who presented for EGD, per the request of Dr. Moses. [facility] has been asked to see the [...] [] Microbiology [x] Outside Records [] Family [employer] Phone: 1([phone]) 722-525004-05-2023 History and physical note* Kenya Andre NP - 02/16/2023 9:00 AM EDT Images from the original note were not included. Kenya Andre NP [facility] Hospitalists History and Physical Same Day Surgery Patient Name:Leon Rider :1980 Admit Date: 4041217 Physicians: Zack Vigil MD (PCP) Perpetual Assessment: Leon Rider is a 42 y.o. male who presented for EGD, per the request of Dr. Moses. [facility] has been asked to see the [...] [] Microbiology [x] Outside Records [] Family [employer] Phone: 1(980) 450-862204-05-2023 History and physical note* Vincent oMses MD - 02/16/2023 9:00 AM EDT I have seen and evaluated the patient. I concur with the findings of the H&P. There are no significant changes. The patient is appropriate to proceed with the planned procedure. Source Note - Kenya Andre NP - 02/16/2023 9:00 AM EDT Images from the original note were not included. Kenya Andre NP [facility] Hospitalists History and Physical Same Day Surgery Patient Name:Leon Rider :1980 Admit Date: 4041217 Physicians: Zack Vigil MD (PCP) Perpetual Assessment: Leon Rider is a 42 y.o. male who presented for EGD, per the request of Dr. Moses. [facility] has been asked to see the [...] note were not included. Kenya Andre NP [facility] Hospitalists History and Physical Same Day Surgery Patient Name:Leon Rider :1980 Admit Date: 4041217 Physicians: Zack Vigil MD (PCP) Perpetual Assessment: Leon Rider is a 42 y.o. male who presented for EGD, per the request of Dr. Moses. [facility] has been asked to see the [...] Outside Records [] Family documented in this [facility]04-05-2023 Procedure note* Suki Bales RN - 02/16/2023 9:00 AM EDT Pt and verbalize understanding of d/c instructions. [address]05-2023 Procedure note* Suki Bales RN - 02/16/2023 9:00 AM EDT Pt and verbalize understanding of d/c instructions. documented in this [facility]02-09-2023 History of Present illness Narrative* Cyn Thomas RN - 12/23/2022 10:[address] Mishra, Two bandings applied. Report given to Bianca WAYNE. documented in this [place] [address]-09-2023 Hospital Discharge instructions* Discharge Instructions* Bianca Barbour RN - 12/23/2022 10:27 AM EST Follow up with your Primary Care Physician Dr. Mishra can be reached at [phone]. Endoscopy Discharge Instructions Your Procedure Was: Esophagogastroduodenoscopy [...] not drive or operate machinery (power tools, [employer] mowers, etc.), cook, make business decisions or [...] return to work today. documented in this encounterFairmount Behavioral Health SystemYusynk86-92-4349 History and physical note* Paul Mishra V - 12/23/2022 9:30 AM EST Images from the original note were not included. GASTROENTEROLOGY OUTPATIENT PRE-PROCEDURE NOTE Patient Name: Leon Rider MR #: [id number] Indication: Esophageal varices Brief History: Follows with [...] with endoscopic procedure as scheduled. Paul Mishra [employer] Phone: [phone]) 590-214002-09-2023 History and physical note* Paul Mishra V - 12/23/2022 9:30 AM EST Images from the original note were not included. GASTROENTEROLOGY OUTPATIENT PRE-PROCEDURE NOTE Patient Name: Leon Rider MR #: [id number] Indication: Esophageal varices Brief History: Follows with [...] as scheduled. Paul Mishra documented in this encounterFairmount Behavioral Health SystemBfqyhx62-32-4137 Procedure note* Hannah Morales RN - 12/23/2022 9:30 AM EST Patient reports that he would like to come to the appointment of 830 arrival maybe a few minutes late due to has PT appointment prior. Medications as instructed with sips of water on the morning of surgery. Please ensure you have a local city driver, age 18 or greater, and someone with your for 24 hours after anesthesia. No big decisions day after surgery due to anesthesia [employer] Agent Team Member: Zelda- Accept Emergency blood transfusion: Yes [facility] SystemTikiur75-27-6962 Procedure note* Hannah Morales RN - 12/23/2022 9:30 AM EST Patient reports that he would like to come to the appointment of 830 arrival maybe a few minutes late due to has PT appointment prior. Medications as instructed with sips of water on the morning of surgery. Please ensure you have a local city driver, age 18 or greater, and someone with your for 24 hours after anesthesia. No big decisions day after surgery due to anesthesia [employer] Agent Team Member: Zelda- Accept Emergency blood transfusion: Yes documented in this encounterFairmount Behavioral Health SystemVxcbhu14-88-2230 History and physical note* Susana Leblanc, DO - 10/27/2022 3:45 PM EST Images from the original note were not included. GASTROENTEROLOGY OUTPATIENT PRE-PROCEDURE NOTE Patient Name: Leon Rider MR #: [id number] Indication: EV banding Brief History: 42M GLASS [...] endoscopic procedure as scheduled. Susana Leblanc DO [employer] Phone: 1([phone]) 388-874612-14-2022 History and physical note* Susana Leblanc DO - 10/27/2022 3:45 PM EST Images from the original note were not included. GASTROENTEROLOGY OUTPATIENT PRE-PROCEDURE NOTE Patient Name: Leon Rider MR #: [id number] Indication: EV banding Brief History: 42M GLASS [...] scheduled. Susana Leblanc DO documented in [place] encounterVictoria [place] [address]-14-2022 Procedure note* Apolonia Dave RN - 10/27/2022 3:[address] Leblanc in to see pt and to discuss findings of procedure . This nurse reviewed d/c instructions also . Both voiced understanding [address]14-2022 Procedure note* Apolonia Dave RN - 10/27/2022 3:[address] Leblanc in to see pt and to discuss findings of procedure . This nurse reviewed d/c instructions also . Both voiced understanding documented in this encounterVictoria [place] [address]-14-2022 Hospital course Narrative* Ansley Ballard RN - [...] CPAP machine. * You must have a local city driver to take you home Please be sure to bring the following on the day of procedure: local city driver's license or photo ID , and current insurance cards. You may also bring copies of your Living Will or Healthcare Power of Gold Layer if available. documented in this encounterFairmount Behavioral Health SystemPrfnbc59-19-0107 Hospital course Narrative* Loli Zee MD - 04/14/2022 5:26 PM EDT Images from the original note were not included. Loli Zee MD [facility] Hospitalists DISCHARGE SUMMARY Leon Rider . [...] will need to follow-up with a new director index/ticketer -No acute issues, recommended outpatient follow-up -Continue [...] Your Medications These medications were sent to [facility] [id number] - [place], [place] - [address] [facility] [address] [place] [address] atenoloL 25 mg tablet hydrOXYzine HCL 25 [...] ibuprofen, aleve, naprosyn etc documented in this encounterFairmount Behavioral Health SystemBtlbji13-72-5176 History of Present illness Narrative* Loli Zee MD - 04/14/2022 2:35 PM EDT Images from the original note were not included. Loli Zee MD [facility] Hospitalists DAILY PROGRESS NOTE Patient Name: [...] will need to follow-up with a new director index/ticketer -No acute issues, recommended outpatient follow-up -Continue [...] Back up Transition plan Home Health Care Radiation Control Technician Note Patient mentation at time of initial Assessment: A&Ox4. Patient Directives: Has no advance directives and declining information. Patient Next of Kin / Surrogate Decision Maker is his , Zelda Rider. Insurance provider confirmed from chart: Confirmed and correct. PCP confirmed from chart: Confirmed and correct. Living Situation: Patient resides: 2-story house w/basement. Patient with following DME prior to this admission: CPAP through [facility], no additional DME. Steps to [...] unspecified type [R06.00] [address] [place] [address] confirmed from facesheet/demographics. CODE STATUS at time [...] with Support []Home health care []Inpatient Rehab []longterm facility []exterminator helper care []Other: Discharge Destination: [x]Home with []No Needs []Home health care []Inpatient Rehab []longterm facility []intermediate care []Pending evaluation []TBD []Other: Facility info [...] nausea, vomiting, abdominal pain, or further complants. [place] Coma Scale Score: 15 Patient History Past [...] a plane, noting that he traveled to [place] and [facility] last month, about a 2 and half [...] negative. I discussed patient's care with admitting [facility] physician, and patient is excepted to their service. Procedures CHARLES Maciel 04/13/22 1435 CHARLES Maciel 04/13/22 1805 documented in this encounterFairmount Behavioral Health SystemTdywze21-79-6582 History and physical note* Tye Holbrook MD - 04/13/2022 6:03 PM EDT Images from the original note were not included. Arias Holbrook MD [facility] Hospitalists History and Physical Patient Name:Leon [...] will need to follow-up with a new director index/ticketer -No acute issues Thrombocytopenia -In the setting [...] [] Family Time Spent: documented in this encounterFairmount Behavioral Health SystemVtpucu41-03-1902 History of Present illness Narrative* Jean Carlos Isidro RN - 04/22/2021 8:50 AM EDT Reviewed dc with pt and his s/o. All questions answered. Pt in possession of paper oxy Rx. documented in this [id number] Miscellaneous Notes* Op Note - Sukhwinder Villalobos MD - 04/22/2021 8:01 AM EDT LEON RIDER CSN [id number] 1980 DATE 04/22/2021 OPERATIVE REPORT SURGEON SUKHWINDER [...] well. SUKHWINDER VILLALOBOS MD D 04/22/2021 07:46 [id number] T 04/22/2021 07:59 BP/MODL * Brief Op Note - Sukhwinder Villalobos MD - 04/22/2021 7:40 AM EDT Brief Post Operative Note Patient Name: Leon Rider : 1980 (40 y.o.) Date of Service: 04/22/2021 CSN: [id number] Procedure(s): REPAIR UMBILICAL HERNIA WITH MESH Pre-Operative Diagnoses: * Umbilical hernia without obstruction and without gangrene [K42.9] Post-Operative Diagnoses: * Same as Pre-Op Diagnosis * Umbilical hernia without obstruction and without gangrene [K42.9] Surgeon(s) and Role: * Sukhwinder Villalobos MD - Primary Anesthesiologist: Ha Alvarado MD INDUSTRIAL ORGANIZATIONAL PSYCHOLOGIST: Tasneem Flores CRNA Pick Up Operator: Edith Feldman RN Scrub Person: Wanda Thurman Scrub Person Orientee: Edgardo Blackmon Scrub Person Assist: ST Kyler HUNTING GUIDE: Johana Swan RN Operative findings: umbilical hernia Intra and immediate post-operative complications: none Type of anesthesia used: General Estimated blood loss: 10 mL Estimated urine output: Refer to surgical log Specimen(s): * No specimens in log * Implant(s): Implant Name Type Inv. Item Serial No. Title Lawyer Lot No. LRB No. Used Action PATCH 1.7IN HERNIA W/STRAP SM [address] - [id number] PATCH 1.7IN HERNIA W/STRAP SM VENTRALEX [employer] [id number] N/A 1 Implanted Drain(s): * No LDAs found * Wound(s): Wound 04/22/21 Surgical Wound Abdomen (Active) Sukhwinder Villalobos MD 04/22/2021 7:40 AM documented in this [id number] History and physical note* Sukhwinder Villalobos MD - 04/22/2021 6:26 AM EDT INTERVAL HISTORY AND PHYSICAL Patient Name: Leon Rider Admit Date: 6081215 MR #: [id number] : 1980 The H&P has been reviewed and the patient has been examined. I concur with the findings of the H&P. There are no significant changes. It is appropriate to proceed with the planned procedure. Sukhwinder Villalobos MD 04/22/2021 6:26 AM documented in this [id number] Nurse Note* Aleyda Jett RN - 04/17/2021 10:49 AM EDT Patient Instructions for [facility]: Prior to arrival: Please be sure to wear loose, comfortable clothing and non-skid shoes Bring your health insurance information and a photo ID, as well as your Living Will or Durable Power of Gold Layer for Healthcare if it is available to you. Bring your cane/walker any applicable assistive device. If you currently use a CPAP, please bring this device with you on the day of surgery. Bring a list of your medications with the name of the medication, dose and how often you are takingit. Be sure to include herbal preparations and pafp-vpj-iuimcnf medications on this list. Do not have [...] of lotions, perfumes or powders. All nail kazakh is to be removed from fingernails and [...] the day of your surgery/procedure. Parking at [facility] is free. Please park in the lot in front of the main lobby. Enter the Main Entrance where a Manager Of Training And Development Liaison at the information desk will greet [...] to drive yourself home. documented in this encounterSheltering Arms HospitalConsult note* Clinical Note Date No Information [facility] Work Phone: Discharge summary* Clinical Note Date No Information [facility] Work Phone: Evaluation note* Diagnosis Umbilical hernia without obstruction and without gangrene- Primary Post-op pain Other acute postoperative pain documented in this encounter [facility] note* Diagnosis Body mass index 45.0-49.9, adult (CMS/HCC)- Primary Body Mass Index 45.0-49.9, adult documented in this encounter [facility] note* Diagnosis Stone, kidney Calculus of kidney documented in this encounter [facility] note* Diagnosis Dyspnea, unspecified type- Primary documented in this encounter [facility] note* Diagnosis GLASS (nonalcoholic steatohepatitis) Other chronic nonalcoholic liver disease documented in this encounter [facility] note* Diagnosis Esophageal varices with bleeding (CMS/HCC) documented in this encounter [facility] note* Diagnosis Calculus of kidney Calculus of kidney with calculus of ureter documented in this encounter [facility] note* Diagnosis Esophageal varices without bleeding, unspecified esophageal varices type (CMS/HCC) [I85.00 (ICD-10-CM)]- Primary documented in this encounter [facility] note* Diagnosis Esophageal varices without bleeding, unspecified esophageal varices type (CMS/HCC) [I85.00 (ICD-10-CM)]- Primary documented in this encounter [facility] SystemEvaluation note* Diagnosis Painless hematuria- Primary documented in this encounter [facility] SystemEvalusaint francis healthcare note* Diagnosis Hyperlipidemia, unspecified hyperlipidemia type- Primary Primary hypertension Unspecified essential hypertension Cirrhosis of liver without ascites, unspecified hepatic cirrhosis type (CMS/HCC) (HCC) Type 2 diabetes mellitus without complication, without long-term current use of insulin (CMS/HCC) (HCC) documented in this encounter [facility] Work Phone: Evaluation note* Type Assessment Date No Information [facility] Work Phone: History and physical note* Clinical Note Date No Information [facility] Work Phone: History of Present illness Narrative* Encounter Date Complaint History Of Prese nt Illness No Information [facility] Work Phone: Hospital Discharge instructions* Instructions* Lauren Boyd, [facility] - 04/22/2021 Umbilical Hernia Repair: What [...] Log into your personal health record on [email or web address] and enter J197 in the Education box to learn more about Umbilical Hernia Repair: What to Expect at Home. Current as of: October 03, 2015 Content Version: 11.0 0503-2055 [employer]. Care instructions adapted under license by your healthcare professional. If you have questions about a medical condition or this instruction, always ask your healthcare professional. [employer] disclaims any warranty or liability for your [...] sugar is high. Do not take any qasy-vkb-hygfguj medicines, such as pain relievers, decongestants, or [...] Log into your personal health record on https://[email or web address] and enter L970 in the Education box to learn more about Diabetes Sick-Day Plan: Care Instructions. Current as of: April 05, 2016 Content Version: 11.0 4534-0853 [employer], [employer]. Care instructions adapted under license by your healthcare professional. If you have questions about a medical condition or this instruction, always ask your healthcare professional. [employer], [facility] disclaims any warranty or liability for your [...] Care Everywhere. * EGD (Upper Endoscopy): Post-op (Botswanan) * Monitored Anesthesia Care: MAC: General Info (Botswanan) documented in this encounterTrinmer[facility] HealthHospital Discharge instructions* Attachments The following attachments cannot be sent through Care Everywhere. * Hematuria (Botswanan) documented in this encounterTrinmercy health will[facility] hospital HealthInstructions* Date Instruction Additional Infor mation No Information [facility] Work Phone: Progress note* Clinical Note Date No Information [facility] Work Phone: Reason for referral (narrative)* Reason For Referral No Information [facility] Work Phone: Reason for referral (narrative)No reason for referral information availableCincinnati Shrin[facility] Work Phone: Summary Purpose Family History No Family History Records Found Family Member Type Diagnosis Age At Onset No Information Advance Directives No Advanced Directives Records FoundDocuments on File Type Date Recorded 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 Note Patient: LEON RIDER RN: ([facility])-[id number] Age: 40 years Sex: Male : 1980 [...] summary document to your follow up appointments. [facility] 06/26/20 14:28 [address] [place]. [address] PATIENT INFORMATION Name: LEON RIDER Address: [address] [place] [address] [place] [address] Age: 40 Years Phone: [phone] : 1980 12:00 MRN: [facility]-[id number] Sex: Male Race: White Ethnicity: Not Hispan/Lat Admitted From: Clinic or [facility] Medical Service: Gastroenterology Nurse Unit/Bed: (OR) [facility] N/A Admit Date: 06/26/2020 12:03 PCP: Zack [...] summary document to your follow up appointments. [facility] 06/26/20 14:28 [address] [place]. [address] PATIENT INFORMATION Name: LEON RIDER Address: [address] [place] [address] [place] [address] Age: 40 Years Phone: [phone] : 1980 12:00 MRN: [facility])-[id number] Sex: Male Race: White Ethnicity: Not Hispan/Lat Admitted From: Clinic or [facility] Medical Service: Gastroenterology Nurse Unit/Bed: (CO) [...] US Abdomen Limited Dandy Healy MD [address] [place] [address] [facility] [place] Referral ID Status Reason Start Date Expiration Date V isits Requested Visits Authorized [id number] Pending Review 10/13/2021 04/11/2022 1 1 Specialty Diagnoses / Procedures Referred By Contac t Referred To Contact Radiology Diagnoses GLASS (nonalcoholic steatohepatitis) Procedures US Abdomen Limited Thom Oneill MD [address] [place] [address] [facility] [place] Referral ID Status Reason Start Date Expiration Date V isits Requested Visits Authorized [id number] Authorized 07/15/2022 01/11/2023 1 1 Specialty Diagnoses / Procedures Referred By Contac t Referred To Contact Diagnoses Esophageal varices with bleeding (CMS/HCC) Procedures EGD Anesthesia - MAC; [facility] Carlos Jiménez MD [address] [place] [address] [facility] [place] Referral ID Status Reason Start Date Expiration Date V isits Requested Visits Authorized [id number] Authorized 09/28/2022 03/27/2023 1 1 Specialty Diagnoses / Procedures Referred By Contac t Referred To Contact Diagnoses Esophageal varices without bleeding (CMS/HCC) Procedures EGD Anesthesia - MAC; [facility] Paul Mishra V [address] [place] [address] [facility] [place] Referral ID Status Reason Start Date Expiration Date V isits Requested Visits Authorized [id number] Authorized 12/16/2022 01/16/2023 1 1 Specialty Diagnoses / Procedures Referred By Contac t Referred To Contact Diagnoses Esophageal varices without bleeding (CMS/HCC) Procedures EGD Anesthesia - MAC; [facility] EGD Anesthesia - MAC; [facility] Vincent Moses MD [address] [address] [facility] [place] Referral ID Status Reason Start Date Expiration Date V isits Requested Visits Authorized [id number] Authorized 02/16/2023 03/18/2023 1 1 Chief Complaint [...] section and content) DATE CREATED AUTHOR 12/25/2020 [facility] DATE CREATED AUTHOR AUTHOR'S ORGANIZ ATION 04/10/2021 [facility] DATE CREATED AUTHOR AUTHOR'S ORGANIZ ATION 04/22/2021 [facility] DATE CREATED AUTHOR AUTHOR'S ORGANIZ ATION 03/20/2022 [facility] DATE CREATED AUTHOR AUTHOR'S ORGANIZ ATION 02/18/2023 [facility] [facility] DATE CREATED AUTHOR AUTHOR'S ORGANIZ ATION 08/04/2023 [facility] DATE CREATED AUTHOR AUTHOR'S ORGANIZ ATION 09/25/2023 [facility] DATE CREATED AUTHOR AUTHOR'S ORGANIZ ATION 03/24/2024 [facility] DATE CREATED AUTHOR AUTHOR'S ORGANIZ ATION 05/05/2025 [facility] Reason for Visit (unrecogniz ed section and content) Status Reason Specialty Diagnoses / Procedures Referre d By Contact Referred To Contact Diagnoses Umbilical hernia without obstruction and without gangrene Umbilical hernia without obstruction and without gangrene [K42.9] Procedures [place] REPAIR UMBILICAL HERNIA >= 5 YRS REDUC Sukhwinder Villalobos MD [address] [facility] [address] [facility] [address] [place] [address] Reason Comments Panic Attack Per EMS report patie nt had anxiety attack at work; Patient states that symptoms resolved on arrival to ED. Specialty Diagnoses / Procedures Referred By Contac t Referred To Contact Diagnoses SOB (shortness of breath) Dyspnea, unspecified type Procedures Tye Holbrook MD [address] [facility] [address] [place] [address] [place] [address] Referral ID Status Reason Start Date Expiration Date Visits Re quested Visits Authorized [id number] 1 1 Specialty Diagnoses / Procedures Referred By Contac t Referred To Contact Radiology Diagnoses GLASS (nonalcoholic steatohepatitis) Procedures US Abdomen Limited Oneill, MD Thom [address] [facility] [address] [place] [address] [facility] [place] Referral ID Status Reason Start Date Expiration Date V isits Requested Visits Authorized [id number] Authorized 07/15/2022 01/11/2023 1 1 Specialty Diagnoses / Procedures Referred By Contac t Referred To Contact Diagnoses Esophageal varices with bleeding (CMS/HCC) Procedures EGD Anesthesia - MAC; [facility] Carlos Jiménez MD [address] [place] [address] [facility] [place] Referral ID Status Reason Start Date Expiration Date V isits Requested Visits Authorized [id number] Authorized 09/28/2022 03/27/2023 1 1 Specialty Diagnoses / Procedures Referred By Contac t Referred To Contact Diagnoses Esophageal varices without bleeding (CMS/HCC) Procedures EGD Anesthesia - MAC; [facility] Paul Mishra V [address] [place] [address] [facility] [place] Referral ID Status Reason Start Date Expiration Date V isits Requested Visits Authorized [id number] Authorized 12/16/2022 01/16/2023 1 1 Specialty Diagnoses / Procedures Referred By Contac t Referred To Contact Diagnoses Esophageal varices without bleeding (CMS/HCC) Procedures EGD Anesthesia - MAC; [facility] EGD Anesthesia - MAC; [facility] Vincent Moses MD [address] [address] [facility] [place] Referral ID Status Reason Start Date Expiration Date V isits Requested Visits Authorized [id number] Authorized 02/16/2023 03/18/2023 1 1 Reason Comments [...] Pre-op 0623 (Given - Provid er: Connie Stokes RN) lidocaine 1% (PF) (XYLOCAINE-MPF) 10 mg/mL [...]
Care Teams (unrecognized sec tion and content) Vice President Of Talent Management Relationship Specialty Start Date End Date Zack Vigil MD [address] [place] [address] PCP - General Internal Medicine 12/02/21 Vice President Of Talent [employer] Relationship Specialty Start Date End Date Zack Vigil MD [address] [place] [address] PCP - General Internal Medicine 12/02/21 Vice President Of Talent Management Relationship Specialty Start Date End Date Zack Vigil MD [address] [place] [facility] [address] PCP - General Internal Medicine 12/02/21 Vice President Of Talent Management Relationship Specialty Start Date End Date Zack Vigil MD [address] [place] [address] PCP - General Internal Medicine 12/02/21 Vice President Of Talent Management Relationship Specialty Start Date End Date Zack Vigil MD [address] [place] [facility] [address] PCP - General Internal Medicine 12/02/21 Vice President Of Talent Management Relationship Specialty Start Date End Date Zack Vigil MD [address] [place] [address] PCP - General Internal Medicine 12/02/21 Vice President Of Talent Management Relationship Specialty Start Date End Date Zack Vigil MD [address] [place] [facility] [address] PCP - General Internal Medicine 12/02/21 Vice President Of Talent Management Relationship Specialty Start Date End Date Zack Vigil MD [address] [place] [facility] [address] PCP - General Internal Medicine 12/02/21 Vice President Of Talent Management Relationship Specialty Start Date End Date Zack Vigil MD [address] [place] [address] PCP - General Internal Medicine 12/12/19 Roland Chavez [address], [place] [address] Referring Physician Otolaryngology 11/22/23 Thom Oneill MD [facility] Franco Garg [facility] [address] [place] [address] Referring Physician Gastroenterology 11/22/23 Name [...] BE BASED ON THE PRIMARY CLINICAL RECORDS. [facility] [facility]. provides no warranty or guarantee of the accuracy or completeness of information in this document.
[2025-07-21 12:44] LABS: Troponin T High Sens 2 HR 7 ng/L (<=22)
[2025-07-21 12:58] LABS: Bilirubin, Direct 1.79 mg/dL (0.00-0.30); Magnesium 1.8 mg/dL (1.5-2.2)
[2025-07-21 13:43] LABS: Reflex Lactate? Y
[2025-07-21 14:07] LABS: Troponin T High Sens 4 HR 7 ng/L (<=22)
[2025-07-21] MEDS: Ceftriaxone 2 GM in 0.9% Normal Saline (50mL MB+) 50 ML IV (14:52)
[2025-07-21] MEDS: Polyethylene Glycol 3350 17 GM PACKET PO (14:53)
[2025-07-21] MEDS: 0.9% Saline Lock 10 ML Syringe IV ×3 (15:02→22:39)
[2025-07-21] MEDS: Insulin Glargine-YFGN 100 UNIT/ML Pen 10 UNIT SC (17:19)
[2025-07-21] MEDS: Senna/Docusate Sodium 1 Tablet 2 TABLET PO (21:24)
--- NOTE | 2025-07-21 22:47 | CPS ---
set up pt own bipap machine
[2025-07-22] VITALS (9 sets, daily range): BP systolic 108–137; BP diastolic 50–70; PULSE 93–112; RESP 16–18; TEMP 36.8–38.2; O2SAT 92–97; BMI 53.9
[2025-07-22] MEDS: 0.9% Saline Lock 10 ML Syringe IV ×2 (03:31→09:14)
[2025-07-22 05:51] LABS: Hematocrit 23.9 % (40-54); Hemoglobin 7.6 g/dL (13.0-16.5); Immature Granulocytes Count 0.070 X10^3/uL (0.0-0.0); Mean Corp Hgb Conc 31.8 g/dL (32-36); Mean Corpuscular Volume 81.6 fL (80-94); Mean Platelet Vol. 9.7 fl (6.2-12.0); NRBC Flagged by Analyzer 0 % (0-5); POSITIVE MORPHOLOGY YES; Platelet Count 104 K/mm3 (150-450); RBC Distribution Width CV 22.6 % (11.6-14.6); RBC Distribution Width SD 66.0 fl (35.1-43.9); Red Blood Count 2.93 M/mm3 (4.6-6.2); White Blood Count 8.2 K/mm3 (4.4-11.0)
--- NOTE | 2025-07-22 05:55 | ECHOCS_ITS ---
Reason For Study Reason For Study: SOB Procedure This was a 2D Doppler, Color Flow transthoracic echocardiogram. The study was technically difficult. Contrast injection was performed. Exam performed portable in patient room. Left Ventricle Mild concentric left ventricular hypertrophy. Mildly dilated left ventricle. Inferior hypokinesis. Estimated LVEF 55%. Stage I diastolic dysfunction. Right Ventricle Normal right ventricle. Atria The left and right atria are normal. Mitral Valve Mild (1+) posteriorly directed mitral valve insufficiency. Tricuspid Valve Trivial tricuspid valve insufficiency. Unable to estimate RV systolic pressure due to insufficient tricuspid regurgitant envelope. Aortic Valve Trileaflet aortic valve. Mildly thickened leaflets. Mean peak gradient 8 mmHg. Pulmonic Valve Trivial pulmonic valve insufficiency. Great Vessels Normal sized aortic root. Pericardium/Pleural No pericardial effusion. Medication Diluted definity 2ml given slow IV push to enhance endocardial definition. MMode/2D Measurements & Calculations LVIDd: 6.1 cm IVSd: 1.3 cm LVOT diam: 2.0 cm LVIDs: 4.0 cm LVPWd: 1.4 cm FS: 33.9 % LVOT area: 3.2 cm2 Ao root diam: 3.8 cm LAV(MOD-bp): 64.7 ml LVAd ap4: 51.2 cm2 LA dimension: 4.0 cm LAV(MOD-bp) Indexed: 23.2 ml/m2 LVLd ap4: 10.8 cm LAV(MOD-sp2): 59.8 ml EDV(MOD-sp4): 198.0 ml LAV(MOD-sp4): 65.9 ml EDV(sp4-el): 206.3 ml LVAs ap4: 29.5 cm2 LVLs ap4: 9.2 cm ESV(MOD-sp4): 77.2 ml ESV(sp4-el): 79.9 ml EF(MOD-sp4): 61.0 % EF(sp4-el): 61.3 % SV(MOD-sp4): 120.8 ml SV(sp4-el): 126.4 ml LA A4 area: 22.6 cm2 SI(MOD-sp4): 43.4 ml/m2 LA dimension(2D): 4.4 cm RA A4 area: 21.0 cm2 Doppler Measurements & Calculations Lat Peak E' Berhane: 17.5 cm/sec Med Peak E' [place]hane: 15.5 cm/sec MV V2 max: 190.7 cm/sec MV max P.6 mmHg MV V2 mean: 132.5 cm/sec MV mean P.8 mmHg MV V2 VTI: 45.5 cm Ao V2 max: 197.9 cm/sec PA V2 max: 136.2 cm/sec Ao max P.7 mmHg PA V2 mean: 101.2 cm/sec Ao V2 mean: 134.4 cm/sec Ao mean P.2 mmHg Ao V2 VTI: 35.3 ECHO/Echo Complete W/ Contrast Interpretation Summary Mild concentric left ventricular hypertrophy. Mildly dilated left ventricle. Mild (1+) posteriorly directed mitral valve insufficiency. Trileaflet aortic valve. Mildly thickened leaflets. Mean peak gradient 8 mmHg. The study was technically difficult. Inferior hypokinesis. Estimated LVEF 55%. Stage I diastolic dysfunction. Ordering Physician: Timoteo Cooper Referring Physician: CLARITZA DURAN Performed By: Jessica Wright RCS
[2025-07-22 05:57] LABS: Differential Indicated SCAN CRITERIA MET
[2025-07-22 06:23] LABS: AST(SGOT) 36 U/L (<=37); Alanine Aminotransfer ALT/SGPT 26 U/L (<=46); Albumin, Serum 2.2 g/dL (3.5-5.0); Alkaline Phosphatase 131 U/L (40-129); Anion Gap 7 (5-15); BUN 8 mg/dL (4-19); BUN/Creat Ratio 12.3 RATIO (10-20); Calcium,Total 7.7 mg/dL (7.6-11.0); Carbon Dioxide 22.4 mmol/L (21.0-32.0); Chloride 100 mmol/L (98-108); Cholesterol 108 mg/dL (<=200); Estimated Creatinine Clearance 215.46 ml/min (50-250); Globulin 3.8 g/dL (2.2-4.2); Glucose 167 mg/dL (70-99); Low Density Lipoprotein Calc. 68 mg/dL; Potassium 4.0 mmol/L (3.3-5.1); Triglycerides 105 mg/dL; Very Low Density Lipoprotein 21 mg/dL (5-40); cholesterol:hdl ratio screen 5.63
[2025-07-22 07:19] LABS: Anisocytosis 2+; Polychromasia 1+
[2025-07-22] MEDS: HYDROmorphone 0.5 MG/0.5 ML SYRINGE IV ×2 (09:11→14:47)
[2025-07-22] MEDS: Ceftriaxone 2 GM in 0.9% Normal Saline (50mL MB+) 50 ML IV (09:21)
[2025-07-22] MEDS: Polyethylene Glycol 3350 17 GM PACKET PO ×2 (09:21→23:12)
--- NOTE | 2025-07-22 09:46 | PCM.PN.HOSP ---
Reason for Visit Chief Complaint: Atypical chest pain about 2 times last night. Objective Data Objective Data Vital Signs: Vital Signs Temp Pulse Resp BP Pulse Ox O2 Del Method 98.5 F 99 18 108/69 94 Room Air 07/22/25 03:00 07/22/25 03:00 07/22/25 03:00 07/22/25 03:00 07/22/25 03:39 07/22/25 03:39 Oxygen Delivery Method Room Air Weight: 385 lb 5.888 oz Body Mass Index (BMI) 53.9 Intake & Output: Intake and Output for Last 24 Hours 07/20/25 07/21/25 07/22/25 23:59 23:59 23:59 Intake Total 1810 / 1810 200 / 200 Output Total 300 / 300 350 / 350 Balance 1510 / 1510 -150 / -150 Lab / Micro Data 07/22/25 04:42 07/22/25 04:42 Labs: Laboratory Results - last 24 hr 07/21/25 09:18: WBC 9.3, RBC 3.35 L, Hgb 8.8 L, Hct 26.8 L, MCV 80.0, MCH 26.3 L, MCHC 32.8, RDW Std Deviation 63.7 H, RDW Coeff of Melina 22.6 H, Plt Count 112 L, MPV 10.3, Immature Gran % (Auto) 0.600, Neut % (Auto) 70.4 H, Lymph % (Auto) 10.4 L, Mingo % (Auto) 15.8 H, Eos % (Auto) 2.3, Baso % (Auto) 0.5, Absolute Neuts (auto) 6.6, Absolute Lymphs (auto) 0.97, Nucleated RBC % 0, Differential Comment SCANNED, Polychromasia 1+, Anisocytosis 2+, Microcytosis 1+, Target Cells 1+, Sodium 127 L, Potassium 3.7, Chloride 97 L, Carbon Dioxide 17.8 L, Anion Gap 12, BUN 8, Creatinine 0.66 L, Est GFR (MDRD) Non-Af 117, BUN/Creatinine Ratio 12.9, Glucose 168 H, Calcium 8.1, Total Bilirubin 3.82 H, AST 42 H, ALT 33, Alkaline Phosphatase 109, Troponin T High Sens 8, NT pro BNP II 106, Total Protein 6.6, Albumin 2.5 L, Globulin 4.1, Albumin/Globulin Ratio 0.6 L, TSH 1.550 07/21/25 09:35: PT 20.3 H, INR 1.7, APTT 39.4 H, Lactic Acid 3.2 H* 07/21/25 10:25: Urine Color Yellow, Urine Clarity Clear, Urine pH 6.5, Ur Specific [place] 1.010, Urine Protein 30 H, Urine Glucose (UA) Normal, Urine Ketones Negative, Urine Occult Blood 25 H, Urine Nitrite Negative, Urine Bilirubin 1 H, Urine Urobilinogen 4 H, Ur Leukocyte Esterase Negative, Urine RBC 0 SEEN, Urine WBC 0 SEEN, Ur Squamous Epith Cells 0 SEEN, Urine Bacteria 0 SEEN, Urine Mucus 0 SEEN 07/21/25 11:25: Blood Type B POSITIVE, Antibody Screen NEGATIVE 07/21/25 11:56: Magnesium 1.8, Direct Bilirubin 1.79 H, Troponin T Hi Sens 2 Hr 7 07/21/25 13:33: Troponin T Hi Sens 4Hr 7 07/21/25 13:53: Lactic Acid 2.5 H* 07/21/25 17:06: POC Glucose 213 H 07/21/25 21:22: POC Glucose 165 H 07/22/25 04:42: WBC 8.2, RBC 2.93 L, Hgb 7.6 L, Hct 23.9 L, MCV 81.6, MCH 25.9 L, MCHC 31.8 L, RDW Std Deviation 66.0 H, RDW Coeff of Melina 22.6 H, Plt Count 104 L, MPV 9.7, Immature Gran % (Auto) 0.900, Neut % (Auto) 66.1, Lymph % (Auto) 13.7 L, Mingo % (Auto) 15.8 H, Eos % (Auto) 3.0, Baso % (Auto) 0.5, Absolute Neuts (auto) 5.4, Absolute Lymphs (auto) 1.13, Nucleated RBC % 0, Platelet Estimate SLT DEC, Polychromasia 1+, Anisocytosis 2+, Ovalocytes 1+, Sodium 130 L, Potassium 4.0, Chloride 100, Carbon Dioxide 22.4, Anion Gap 7, BUN 8, Creatinine 0.69 L, Estim Creat Clear Calc 215.46, Est GFR (MDRD) Non-Af 115, BUN/Creatinine Ratio 12.3, Glucose 167 H, Hemoglobin A1c 6.1 H, Calcium 7.7, Total Bilirubin 2.57 H, AST 36, ALT 26, Alkaline Phosphatase 131 H, Total Protein 6.0, Albumin 2.2 L, Globulin 3.8, Albumin/Globulin Ratio 0.6 L, Triglycerides 105, Cholesterol 108, LDL Cholesterol, Calc 68, VLDL Cholesterol 21, HDL Cholesterol 19 L, Cholesterol/HDL Ratio 5.63, TSH 1.380 07/22/25 06:28: POC Glucose 149 H Micro: Microbiology 07/21/25 09:38 Mucosa - Nose SARS-CoV-2, Influenza & RSV (PCR) - Final 07/21/25 10:25 Stool Stool Occult Blood (GIORGIO) - Final Radiography Diagnostic Testing: Radiology Impression Chest CTA 07/21/25 09:27 IMPRESSION: Negative for pulmonary embolus.. Mild interstitial edema. Mild mediastinal adenopathy. Cirrhosis. Reading Location: [facility] Rhythm Strip Rhythm Strip: Sinus Tach Rate: 101 Ectopy: None Physical Exam Narrative Seen and examined The morning patient was frustrated by the call from his workplace that he has to given the return that he is being admitted here. Patient was also sad. Shortness of breath is improved. Significant right leg swelling. Complain of right leg pain. Physical exam: General: Alert, Oriented x3, Cooperative. Morbid obesity BMI 54.2 kg/m? HEENT: Atraumatic, PERRLA, EOMI, Normocephalic. Oral: Deep oropharyngeal history could not be visualized Neck: Supple, No JVD, Negative Carotid Bruits Chest wall/Lungs: Air entry severely diminished in bilateral lung bases. Mild crepitation in right lung base Cardiovascular: Regular rate and rhythm, Normal S1,S2, No M/G/R Abdomen: Bowel Sounds Present, Soft, Non Tender, Non-Distended : No dysuria. No renal angle tenderness. No suprapubic tenderness. Extremities: No edema, Capillary Refill Less than 3 Seconds Skin: Redness/erythema present over right calf area Musculoskeletal: Tenderness in right calf. Bilateral lower extremity lymphedema chronic. ROM restricted over knees and hip joints Neurological: Cranial nerves II-XII grossly intact, DTR 2+/4. No acute focal neurological deficit. Psych/Mental Status: Flat affect Assessment & Plan Assessment/Plan (1) Cellulitis: QUALIFIERS: Laterality: right Site of cellulitis: extremity Site of cellulitis of extremity: lower extremity Qualified Code(s): L03.115 - Cellulitis of right lower limb (2) Chest pain, atypical: PLAN: Plan This is 45-year-old gentleman admitted with chest pain last night and several weeks of shortness of breath yesterday 1. Atypical chest pain and SOB probably due to heart failure exacerbation: Patient is being admitted in PCU. First troponin 8, second pending. proBNP 106 but may be falsely normal/low due to morbid obesity. Chest CTA negative for pulmonary embolism and earlier venous duplex were negative for acute DVT. It shows mild/trivial edema, mild mediastinal adenopathy and cirrhosis. Lactic acid elevated probably due to ineffective circulation/venous congestion. Started on furosemide 40 mg IV twice daily. ED physician ordered 1 L normal saline bolus. Heart failure core measures including intake and output, fluid restriction less than 1500 mL, daily weight monitoring, kidney and electrolytes monitoring. 2D echo ordered for tomorrow a.m. Twelve-lead EKG sinus tachycardia 101 bpm, QTc 479 ms. No previous EKG to compare. 07/22: 2D echo reviewed shows mild concentric LVH, mildly dilated LV, inferior hypokinesis EF 55%, stage I diastolic function. Acute HFpEF. Normal RV and both left and right atria. Mild MR. Mean peak gradient 8 mmHg but not reported aortic stenosis. Mildly thickened aortic valve leaflets Continue diuresis as mentioned above. 2. RLE cellulitis with bilateral chronic venous hypertension and lymphedema: Right lower leg is tender and edematous slightly more than LLE. Venous duplex of right lower extremity negative for acute DVT. It shows valvular competence possible deep venous system. Started on IV ceftriaxone after patient got IV cefazolin in the ED. No open wound to culture. 07/22: Discussed the patient about the DVT prophylaxis with high risk of DVT but patient also high risk of bleeding with severe anemia and thrombocytopenia, and coagulopathy with INR 1.7. IV iron ordered for severe anemia. May consider low-dose anticoagulant later on when anemia is better. 3. Decompensated MASLD cirrhosis with mild perihepatic ascites, thrombocytopenia and hypotonic hypervolemic hyponatremia: Albumin 2.5, platelet count 112K. T. bili 3.82, AST 42. ALT normal. Right upper quadrant sonogram ordered. 4. DM type II: Glucose is elevated 168. Patient on multiple oral antidiabetic medications which are held. Started on Lantus 10 units p.o. daily. Accu-Chek before meals and at bedtime with Humalog sliding scale coverage and hypoglycemia protocol. 5. Hypertension: Blood pressure is in normal range though it was elevated in the ED. 6. Other comorbidities include GERD, anal fissure/hemorrhoid: On PPI. Continue PPI. Saw Dr. Lorie Willson for anal fissure and was advised sitz bath, diltiazem and lidocaine suppository and avoid constipation. 7. Morbid obesity with obstructive sleep apnea/possible obesity hypoventilation syndrome: Patient uses CPAP at home, continue Living will/advanced directive/end of life care: Patient does not have living will or advanced directive. His is next of kin. After discussion of benefits/risks procedures involved with full code, DNR CC arrest and DNR CC, the patient opted for full code. Patient does want artificial life support including intubation, tube feed, ventilator and/chest compression, central venous catheter, vasopressor and DC shock if needed Total time spent in [id number] encounter in discussion of advanced directive 17 minutes. Microbiology Past 72 Hours 07/21/25 09:38 Mucosa - Nose SARS-CoV-2, Influenza & RSV (PCR) - Final 07/21/25 10:25 Stool Stool Occult Blood (GIORGIO) - Final Laboratory Results 07/21/25 17:06: POC Glucose 213 H 07/21/25 21:22: POC Glucose 165 H 07/22/25 04:42: WBC 8.2, RBC 2.93 L, Hgb 7.6 L, Hct 23.9 L, MCV 81.6, MCH 25.9 L, MCHC 31.8 L, RDW Std Deviation 66.0 H, RDW Coeff of Melina 22.6 H, Plt Count 104 L, MPV 9.7, Immature Gran % (Auto) 0.900, Neut % (Auto) 66.1, Lymph % (Auto) 13.7 L, Mingo % (Auto) 15.8 H, Eos % (Auto) 3.0, Baso % (Auto) 0.5, Absolute Neuts (auto) 5.4, Absolute Lymphs (auto) 1.13, Nucleated RBC % 0, Platelet Estimate SLT DEC, Polychromasia 1+, Anisocytosis 2+, Ovalocytes 1+, Sodium 130 L, Potassium 4.0, Chloride 100, Carbon Dioxide 22.4, Anion Gap 7, BUN 8, Creatinine 0.69 L, Estim Creat Clear Calc 215.46, Est GFR (MDRD) Non-Af 115, BUN/Creatinine Ratio 12.3, Glucose 167 H, Hemoglobin A1c 6.1 H, Calcium 7.7, Total Bilirubin 2.57 H, AST 36, ALT 26, Alkaline Phosphatase 131 H, Total Protein 6.0, Albumin 2.2 L, Globulin 3.8, Albumin/Globulin Ratio 0.6 L, Triglycerides 105, Cholesterol 108, LDL Cholesterol, Calc 68, VLDL Cholesterol 21, HDL Cholesterol 19 L, Cholesterol/HDL Ratio 5.63, TSH 1.380 07/22/25 06:28: POC Glucose 149 H 07/22/25 11:30: POC Glucose 214 H Clinical Impression(s) from Imaging Studies Chest CTA 07/21/25 09:27 IMPRESSION: Negative for pulmonary embolus.. Mild interstitial edema. Mild mediastinal adenopathy. Cirrhosis. Echocardiogram 07/22/25 05:55 Interpretation Summary Mild concentric left ventricular hypertrophy. Mildly dilated left ventricle. Mild (1+) posteriorly directed mitral valve insufficiency. Trileaflet aortic valve. Mildly thickened leaflets. Mean peak gradient 8 mmHg. The study was technically difficult. Inferior hypokinesis. Estimated LVEF 55%. Stage I diastolic dysfunction. Ordering Physician: Timoteo Cooper Referring Physician: CLARITZA DURAN Performed By: Jessica Wright RCS Charges/Coding Visit Charges Inpatient E&M: 12355 Subs Hosp L2
--- NOTE | 2025-07-22 10:45 | CASEMGMT ---
RN CM Face to Face with patient for initial transition planning/care coordination assessment. RN CM introduced self and role at [facility]. Patient lying in bed, alert and oriented. Patient willing to participate in assessment and is able to answer all questions appropriately. Care providers, pharmacy, and demographics verified. Strata: 2 PCP: Nak[facility] Specialists: none Preferred Pharmacy: [facility] Insurance: [employer] Prescription Benefit: yes Living Will/HPOA: none LNOK: Living Arrangements: Patient lives with in a single story home with 2 steps and railing to enter the home. Patient states he is independent at home. Transportation: self, DME/HHC: Patient has shower chair, raised toilet, cpap at home. No previous HHC or SNF. Patient wishes to discharge home, denies need for home health at this time. Patient states he has no further needs or concerns at this time. CM to follow for discharge planning needs that may arise. Disposition Plan: Patient to discharge home with family support and follow-up plans in place. Isabel VAIL, RN, CM
--- NOTE | 2025-07-22 11:20 | CASEMGMT ---
Social Work SW completed a SDOH with the patient. Patient reported concerns with not having enough money for food sometimes. He reported his [id number] buys them food. 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 Patient still drives. SW provided the patient with food resources in the community. YOLY Ratliff
[2025-07-22] MEDS: Sodium Ferric Gluconat/Sucrose 250 MG in 0.9% Normal Saline (250mL Bag) 250 ML 135 MG IV (17:02)
[2025-07-22] MEDS: Insulin Glargine-YFGN 100 UNIT/ML Pen 15 UNIT SC (17:06)
[2025-07-22] MEDS: Senna/Docusate Sodium 1 Tablet 2 TABLET PO (23:11)
[2025-07-23 03:50] VITALS: BP 133/60; PULSE 91; RESP 18; TEMP 36.9; O2SAT 94
[2025-07-23 05:53] LABS: Hematocrit 23.5 % (40-54); Hemoglobin 7.5 g/dL (13.0-16.5); Immature Granulocytes Count 0.120 X10^3/uL (0.0-0.0); Mean Corp Hgb Conc 31.9 g/dL (32-36); Mean Corpuscular Volume 81.0 fL (80-94); Mean Platelet Vol. 9.9 fl (6.2-12.0); NRBC Flagged by Analyzer 0 % (0-5); POSITIVE MORPHOLOGY YES; Platelet Count 109 K/mm3 (150-450); RBC Distribution Width CV 22.9 % (11.6-14.6); RBC Distribution Width SD 65.4 fl (35.1-43.9); Red Blood Count 2.90 M/mm3 (4.6-6.2); White Blood Count 9.1 K/mm3 (4.4-11.0)
[2025-07-23 05:55] LABS: Prothrombin Time (Protime)PT. 19.8 SECONDS (11.7-14.9)
[2025-07-23 05:57] LABS: Differential Indicated SCAN CRITERIA MET
[2025-07-23 06:00] VITALS: BMI 54.5
[2025-07-23 06:27] LABS: AST(SGOT) 36 U/L (<=37); Alanine Aminotransfer ALT/SGPT 24 U/L (<=46); Albumin, Serum 2.1 g/dL (3.5-5.0); Alkaline Phosphatase 126 U/L (40-129); BUN 9 mg/dL (4-19); BUN/Creat Ratio 12.8 RATIO (10-20); Calcium,Total 7.5 mg/dL (7.6-11.0); Estimated Creatinine Clearance 212.39 ml/min (50-250); Globulin 3.6 g/dL (2.2-4.2); Glucose 154 mg/dL (70-99)
[2025-07-23 06:28] LABS: Anion Gap 9 (5-15); Carbon Dioxide 21.7 mmol/L (21.0-32.0); Chloride 101 mmol/L (98-108); Potassium 3.8 mmol/L (3.3-5.1)
[2025-07-23 06:50] LABS: Anisocytosis 1+
[2025-07-23 07:58] VITALS: O2SAT 95
--- NOTE | 2025-07-23 09:32 | PCM.PN.HOSP ---
Reason for Visit Chief Complaint: Atypical chest pain about 2 times last night. Objective Data Objective Data Vital Signs: Vital Signs Temp Pulse Resp BP Pulse Ox O2 Del Method 98.5 F 91 18 133/60 H 95 Room Air 07/23/25 03:50 07/23/25 03:50 07/23/25 03:50 07/23/25 03:50 07/23/25 07:58 07/23/25 07:58 Oxygen Delivery Method Room Air Weight: 391 lb 1.601 oz Body Mass Index (BMI) 54.5 Intake & Output: Intake and Output for Last 24 Hours 07/21/25 07/22/25 07/23/25 23:59 23:59 23:59 Intake Total 1810 / 1810 1360 / 1360 Output Total 300 / 300 1850 / 2200 850 / 850 Balance 1510 / 1510 -490 / -840 -850 / -850 Lab / Micro Data 07/23/25 04:51 07/23/25 04:51 Labs: Laboratory Results - last 24 hr 07/22/25 11:30: POC Glucose 214 H 07/22/25 17:05: POC Glucose 236 H 07/22/25 23:09: POC Glucose 194 H 07/23/25 04:51: WBC 9.1, RBC 2.90 L, Hgb 7.5 L, Hct 23.5 L, MCV 81.0, MCH 25.9 L, MCHC 31.9 L, RDW Std Deviation 65.4 H, RDW Coeff of Melina 22.9 H, Plt Count 109 L, MPV 9.9, Immature Gran % (Auto) 1.300 H, Neut % (Auto) 64.2, Lymph % (Auto) 14.9 L, [place] % (Auto) 16.2 H, Eos % (Auto) 2.9, Baso % (Auto) 0.5, Absolute Neuts (auto) 5.9, Absolute Lymphs (auto) 1.36, Nucleated RBC % 0, Anisocytosis 1+, PT 19.8 H, INR 1.6, Sodium 132 L, Potassium 3.8, Chloride 101, Carbon Dioxide 21.7, Anion Gap 9, BUN 9, Creatinine 0.70, Estim Creat Clear Calc 212.39, Est GFR (MDRD) Non-Af 114, BUN/Creatinine Ratio 12.8, Glucose 154 H, Calcium 7.5 L, Total Bilirubin 2.12 H, AST 36, ALT 24, Alkaline Phosphatase 126, Total Protein 5.7 L, Albumin 2.1 L, Globulin 3.6, Albumin/Globulin Ratio 0.6 L 07/23/25 06:38: POC Glucose 129 H Micro: Microbiology 07/21/25 10:25 Urine, Clean Catch Urine Culture - Preliminary 07/21/25 09:38 Mucosa - Nose SARS-CoV-2, Influenza & RSV (PCR) - Final 07/21/25 10:25 Stool Stool Occult Blood (GIORGIO) - Final Radiography Diagnostic Testing: Radiology Impression Echocardiogram 07/22/25 05:55 Interpretation Summary Mild concentric left ventricular hypertrophy. Mildly dilated left ventricle. Mild (1+) posteriorly directed mitral valve insufficiency. Trileaflet aortic valve. Mildly thickened leaflets. Mean peak gradient 8 mmHg. The study was technically difficult. Inferior hypokinesis. Estimated LVEF 55%. Stage I diastolic dysfunction. Ordering Physician: Timoteo Cooper Referring Physician: CLARITZA DURAN Performed By: Jessica Wright RCS Rhythm Strip Rhythm Strip: Sinus Tach Rate: 101 Ectopy: None Physical Exam Narrative Seen and examined The morning patient was frustrated by the call from his workplace that he has to given the return that he is being admitted here. Patient was also sad. Shortness of breath is improved. Significant right leg swelling. Complain of right leg pain. Physical exam: General: Alert, Oriented x3, Cooperative. Morbid obesity BMI 54.2 kg/m? HEENT: Atraumatic, PERRLA, EOMI, Normocephalic. Oral: Deep oropharyngeal history could not be visualized Neck: Supple, No JVD, Negative Carotid Bruits Chest wall/Lungs: Air entry severely diminished in bilateral lung bases. Mild crepitation in right lung base Cardiovascular: Regular rate and rhythm, Normal S1,S2, No M/G/R Abdomen: Bowel Sounds Present, Soft, Non Tender, Non-Distended : No dysuria. No renal angle tenderness. No suprapubic tenderness. Extremities: No edema, Capillary Refill Less than 3 Seconds Skin: Redness/erythema present over right calf area Musculoskeletal: Tenderness in right calf. Bilateral lower extremity lymphedema chronic. ROM restricted over knees and hip joints Neurological: Cranial nerves II-XII grossly intact, DTR 2+/4. No acute focal neurological deficit. Psych/Mental Status: Flat affect Assessment & Plan Assessment/Plan (1) Cellulitis: QUALIFIERS: Laterality: right Site of cellulitis: extremity Site of cellulitis of extremity: lower extremity Qualified Code(s): L03.115 - Cellulitis of right lower limb (2) Chest pain, atypical: PLAN: Plan This is 45-year-old gentleman admitted with chest pain last night and several weeks of shortness of breath yesterday 1. Atypical chest pain and SOB probably due to heart failure exacerbation: Patient is being admitted in PCU. First troponin 8, second pending. proBNP 106 but may be falsely normal/low due to morbid obesity. Chest CTA negative for pulmonary embolism and earlier venous duplex were negative for acute DVT. It shows mild/trivial edema, mild mediastinal adenopathy and cirrhosis. Lactic acid elevated probably due to ineffective circulation/venous congestion. Started on furosemide 40 mg IV twice daily. ED physician ordered 1 L normal saline bolus. Heart failure core measures including intake and output, fluid restriction less than 1500 mL, daily weight monitoring, kidney and electrolytes monitoring. 2D echo ordered for tomorrow a.m. Twelve-lead EKG sinus tachycardia 101 bpm, QTc 479 ms. No previous EKG to compare. 07/22: 2D echo reviewed shows mild concentric LVH, mildly dilated LV, inferior hypokinesis EF 55%, stage I diastolic function. Acute HFpEF. Normal RV and both left and right atria. Mild MR. Mean peak gradient 8 mmHg but not reported aortic stenosis. Mildly thickened aortic valve leaflets. Continue diuresis as mentioned above. 07/23: Continue diuresis. 2. RLE cellulitis with bilateral chronic venous hypertension and lymphedema: Right lower leg is tender and edematous slightly more than LLE. Venous duplex of right lower extremity negative for acute DVT. It shows valvular competence possible deep venous system. Started on IV ceftriaxone after patient got IV cefazolin in the ED. No open wound to culture. 07/22: Discussed the patient about the DVT prophylaxis with high risk of DVT but patient also high risk of bleeding with severe anemia and thrombocytopenia, and coagulopathy with INR 1.7. IV iron ordered for severe anemia. May consider low-dose anticoagulant later on when anemia is better. 07/23: Patient stated that his pain is better. Probably antibiotic working 3. Decompensated MASLD cirrhosis with mild perihepatic ascites, thrombocytopenia and hypotonic hypervolemic hyponatremia: Albumin 2.5, platelet count 112K. T. bili 3.82, AST 42. ALT normal. Right upper quadrant sonogram ordered. 07/23: Total bilirubin 2.12. INR 1.6. Transaminases normal. Alkaline phosphatase normal. 4. DM type II: Glucose is elevated 168. Patient on multiple oral antidiabetic medications which are held. Started on Lantus 10 units p.o. daily. Accu-Chek before meals and at bedtime with Humalog sliding scale coverage and hypoglycemia protocol. 07/23: Glucoses 129-226. Lantus dose increased 5. Hypertension: Blood pressure is in normal range though it was elevated in the ED. 6. Acute severe anemia on chronic normocytic normochromic and thrombocytopenia present on admission: H&H 8.8/26.8% on admission. Last hemoglobin 10.4 in June 2024. Dropped to 7.5 g%. MCV normal, MCH low. RDW elevated. Probably iron deficiency anemia. Anemia workup ordered. Reticulocyte count high 3.89, immature reticulocyte fraction 38.5 therefore bone marrow responsive to anemia. Folate normal. Other comorbidities include GERD, anal fissure/hemorrhoid: On PPI. Continue PPI. Saw Dr. Lorie Willson for anal fissure and was advised sitz bath, diltiazem and lidocaine suppository and avoid constipation. 7. Morbid obesity with obstructive sleep apnea/possible obesity hypoventilation syndrome: Patient uses CPAP at home, continue Living will/advanced directive/end of life care: Patient does not have living will or advanced directive. His is next of kin. After discussion of benefits/risks procedures involved with full code, DNR CC arrest and DNR CC, the patient opted for full code. Patient does want artificial life support including intubation, tube feed, ventilator and/chest compression, central venous catheter, vasopressor and DC shock if needed Total time spent in [id number] encounter in discussion of advanced directive 17 minutes. Microbiology Past 72 Hours 07/21/25 09:15 Blood Culture (Wb) - Anticubital Left Blood Culture - Preliminary No growth in 48 hours. 07/21/25 09:15 Blood Culture (Wb) - Anticubital Left Blood Culture - Preliminary No growth in 48 hours. 07/21/25 10:25 Urine, Clean Catch Urine Culture - Preliminary 07/21/25 09:38 Mucosa - Nose SARS-CoV-2, Influenza & RSV (PCR) - Final 07/21/25 10:25 Stool Stool Occult Blood (GIORGIO) - Final Laboratory Results 07/22/25 17:05: POC Glucose 236 H 07/22/25 23:09: POC Glucose 194 H 07/23/25 04:51: WBC 9.1, RBC 2.90 L, Hgb 7.5 L, Hct 23.5 L, MCV 81.0, MCH 25.9 L, MCHC 31.9 L, RDW Std Deviation 65.4 H, RDW Coeff of Melina 22.9 H, Plt Count 109 L, MPV 9.9, Immature Gran % (Auto) 1.300 H, Neut % (Auto) 64.2, Lymph % (Auto) 14.9 L, [place] % (Auto) 16.2 H, Eos % (Auto) 2.9, Baso % (Auto) 0.5, Absolute Neuts (auto) 5.9, Absolute Lymphs (auto) 1.36, Nucleated RBC % 0, Anisocytosis 1+, Retic Count 3.89 H, Immature Retic Fraction 38.50 H, Retic Hgb Equivalent 30.2, PT 19.8 H, INR 1.6, Sodium 132 L, Potassium 3.8, Chloride 101, Carbon Dioxide 21.7, Anion Gap 9, BUN 9, Creatinine 0.70, Estim Creat Clear Calc 212.39, Est GFR (MDRD) Non-Af 114, BUN/Creatinine Ratio 12.8, Glucose 154 H, Calcium 7.5 L, Iron Pending, TIBC Pending, Iron Saturation Pending, Unsaturated IBC Pending, Ferritin Pending, Total Bilirubin 2.12 H, AST 36, ALT 24, Alkaline Phosphatase 126, Total Protein 5.7 L, Albumin 2.1 L, Globulin 3.6, Albumin/Globulin Ratio 0.6 L, Vitamin B12 Pending 07/23/25 06:38: POC Glucose 129 H 07/23/25 10:16: Serum Folate 10.50 07/23/25 11:25: POC Glucose 226 H Clinical Impression(s) from Imaging Studies Chest CTA 07/21/25 09:27 IMPRESSION: Negative for pulmonary embolus.. Mild interstitial edema. Mild mediastinal adenopathy. Cirrhosis. Echocardiogram 07/22/25 05:55 Interpretation Summary Mild concentric left ventricular hypertrophy. Mildly dilated left ventricle. Mild (1+) posteriorly directed mitral valve insufficiency. Trileaflet aortic valve. Mildly thickened leaflets. Mean peak gradient 8 mmHg. The study was technically difficult. Inferior hypokinesis. Estimated LVEF 55%. Stage I diastolic dysfunction. Ordering Physician: Timoteo Cooper Referring Physician: CLARITZA DURAN Performed By: Jessica Wright RCS Charges/Coding Visit Charges Inpatient E&M: 86806 Subs Hosp L2
[2025-07-23 09:50] VITALS: BP 130/52; PULSE 106; RESP 14; TEMP 36.8; O2SAT 93
[2025-07-23] MEDS: 0.9% Saline Lock 10 ML Syringe IV ×4 (10:09→17:56)
[2025-07-23] MEDS: Ceftriaxone 2 GM in 0.9% Normal Saline (50mL MB+) 50 ML IV (10:09)
[2025-07-23] MEDS: Senna/Docusate Sodium 1 Tablet 2 TABLET PO ×2 (10:13→20:59)
[2025-07-23] MEDS: Polyethylene Glycol 3350 17 GM PACKET PO ×2 (10:18→20:59)
[2025-07-23 10:39] LABS: Platelet Count 119 K/mm3 (150-450); Reticulocyte Count 3.89 % (0.5-1.5)
[2025-07-23 10:40] LABS: Immature Reticulocyte Fraction 38.50 % (3.00-15.90)
[2025-07-23] MEDS: HYDROmorphone 0.5 MG/0.5 ML SYRINGE IV ×2 (11:10→15:58)
[2025-07-23 12:45] LABS: FOLATES,SERUM (FOLIC ACID) 10.50 ng/mL (4.60-34.80)
--- NOTE | 2025-07-23 15:08 | US_ITS ---
PROCEDURE: ABDOMEN LIMITED 07/24/2025 REASON FOR EXAM: CIRRHOSIS, MILD ASCITES, POSSIBLE VARICES TECHNIQUE: Procedure Code: USABDL Modality: US Procedure: ABDOMEN LIMITED COMPARISON: None FINDINGS: Liver: Coarsened hepatic echotexture with a nodular liver contour suggestive of cirrhosis. Liver measures 16.3 cm. Gallbladder: No stones, sludge, wall thickening or tenderness. Common bile duct: Normal measuring 4 mm. . Pancreas: Visualized portions are unremarkable. The distal body and tail are obscured by bowel gas. Other: The right kidney is unremarkable. Splenomegaly. The spleen measures 16.4 cm x 6.2 cm 6.7 cm. Small amount of ascites seen in the right upper quadrant. US/Abdomen Limited IMPRESSION: Coarsened echotexture of the liver. Splenomegaly. Small amount of ascites seen in the right upper quadrant. Reading Location: [id number]
[2025-07-23 15:44] LABS: Ferritin 104 ng/mL (37-417); Iron 152 ug/dL (65-175); Iron Binding Capacity,Total 267 ug/dL (250-450); Iron Binding Capacity,Unsat 115 ug/dL (228-428); Vitamin B12 1344 pg/mL (180-914)
[2025-07-23 15:50] VITALS: BP 103/48; PULSE 107; RESP 18; TEMP 37.3; O2SAT 92
[2025-07-23] MEDS: Insulin Glargine-YFGN 100 UNIT/ML Pen 20 UNIT SC (16:54)
[2025-07-23 20:37] VITALS: BP 111/42; PULSE 108; RESP 18; TEMP 38.2; O2SAT 94
[2025-07-24 03:15] VITALS: BP 131/56; PULSE 90; RESP 16; TEMP 37.1; O2SAT 95
[2025-07-24 04:56] VITALS: BMI 54.2
[2025-07-24 05:42] LABS: Hematocrit 24.4 % (40-54); Hemoglobin 7.8 g/dL (13.0-16.5); Immature Granulocytes Count 0.200 X10^3/uL (0.0-0.0); Mean Corp Hgb Conc 32.0 g/dL (32-36); Mean Corpuscular Volume 81.6 fL (80-94); Mean Platelet Vol. 9.9 fl (6.2-12.0); NRBC Flagged by Analyzer 0 % (0-5); POSITIVE MORPHOLOGY YES; Platelet Count 130 K/mm3 (150-450); RBC Distribution Width CV 23.8 % (11.6-14.6); RBC Distribution Width SD 66.8 fl (35.1-43.9); Red Blood Count 2.99 M/mm3 (4.6-6.2); White Blood Count 8.0 K/mm3 (4.4-11.0)
[2025-07-24 05:45] LABS: Differential Indicated SCAN CRITERIA MET
[2025-07-24 06:05] LABS: AST(SGOT) 41 U/L (<=37); Alanine Aminotransfer ALT/SGPT 24 U/L (<=46); Albumin, Serum 2.2 g/dL (3.5-5.0); Alkaline Phosphatase 110 U/L (40-129); Anion Gap 8 (5-15); BUN 9 mg/dL (4-19); BUN/Creat Ratio 13.5 RATIO (10-20); Calcium,Total 7.5 mg/dL (7.6-11.0); Carbon Dioxide 23.7 mmol/L (21.0-32.0); Chloride 100 mmol/L (98-108); Estimated Creatinine Clearance 233.67 ml/min (50-250); Globulin 4.0 g/dL (2.2-4.2); Glucose 146 mg/dL (70-99); Potassium 3.7 mmol/L (3.3-5.1)
[2025-07-24 06:37] LABS: Acanthocytes RARE; Anisocytosis 2+; Basophilic Stippling 1+; Differential Comment SCANNED; Polychromasia 1+
[2025-07-24] MEDS: Ceftriaxone 2 GM in 0.9% Normal Saline (50mL MB+) 50 ML IV (08:53)
[2025-07-24] MEDS: 0.9% Saline Lock 10 ML Syringe IV ×5 (08:54→22:18)
[2025-07-24 09:00] VITALS: BP 137/63; PULSE 91; RESP 14; TEMP 37.1; O2SAT 96
[2025-07-24] MEDS: Polyethylene Glycol 3350 17 GM PACKET PO ×2 (10:48→22:17)
[2025-07-24] MEDS: Senna/Docusate Sodium 1 Tablet 2 TABLET PO ×2 (10:49→22:17)
[2025-07-24] MEDS: HYDROmorphone 0.5 MG/0.5 ML SYRINGE IV ×2 (10:52→22:18)
--- NOTE | 2025-07-24 12:32 | PCM.PN.HOSP ---
Reason for Visit Chief Complaint: Atypical chest pain about 2 times last night. Objective Data Objective Data Vital Signs: Vital Signs Temp Pulse Resp BP Pulse Ox O2 Del Method 98.7 F 91 14 137/63 H 96 CPAP 07/24/25 09:00 07/24/25 09:00 07/24/25 09:00 07/24/25 09:00 07/24/25 09:00 07/24/25 09:00 Oxygen Delivery Method CPAP Weight: 389 lb 1.854 oz Body Mass Index (BMI) 54.2 Intake & Output: Intake and Output for Last 24 Hours 07/22/25 07/23/25 07/24/25 23:59 23:59 23:59 Intake Total 1360 / 1360 880 / 880 530 / 530 Output Total 1850 / 2200 1150 / 2250 1900 / 1900 Balance -490 / -840 -270 / -1370 -1370 / -1370 Lab / Micro Data 07/24/25 05:12 07/24/25 05:12 Labs: Laboratory Results - last 24 hr 07/23/25 04:51: Iron 152, TIBC 267, Iron Saturation 57.0 H, Unsaturated IBC 115 L, Ferritin 104, Vitamin B12 1344 H 07/23/25 10:16: Serum Folate 10.50 07/23/25 16:51: POC Glucose 228 H 07/23/25 20:57: POC Glucose 190 H 07/24/25 05:12: WBC 8.0, RBC 2.99 L, Hgb 7.8 L, Hct 24.4 L, MCV 81.6, MCH 26.1 L, MCHC 32.0, RDW Std Deviation 66.8 H, RDW Coeff of Melina 23.8 H, Plt Count 130 L, MPV 9.9, Immature Gran % (Auto) 2.500 H, Neut % (Auto) 60.8, Lymph % (Auto) 14.1 L, [place] % (Auto) 16.9 H, Eos % (Auto) 5.1 H, Baso % (Auto) 0.6, Absolute Neuts (auto) 4.9, Absolute Lymphs (auto) 1.13, Nucleated RBC % 0, Differential Comment SCANNED, Platelet Estimate SLT DEC, Polychromasia 1+, Basophilic Stippling 1+, Anisocytosis 2+, Acanthocytes (Spur) RARE, Sodium 131 L, Potassium 3.7, Chloride 100, Carbon Dioxide 23.7, Anion Gap 8, BUN 9, Creatinine 0.64 L, Estim Creat Clear Calc 233.67, Est GFR (MDRD) Non-Af 117, BUN/Creatinine Ratio 13.5, Glucose 146 H, Calcium 7.5 L, Total Bilirubin 2.01 H, AST 41 H, ALT 24, Alkaline Phosphatase 110, Total Protein 6.2, Albumin 2.2 L, Globulin 4.0, Albumin/Globulin Ratio 0.6 L 07/24/25 06:30: POC Glucose 133 H 07/24/25 11:00: POC Glucose 137 H Micro: Microbiology 07/21/25 10:25 Urine, Clean Catch Urine Culture - Preliminary Streptococcus agalactiae (B) Mixed Gram Positive Organisms 07/21/25 09:15 Blood Culture (Wb) - Anticubital Left Blood Culture - Preliminary No growth in 48 hours. 07/21/25 09:15 Blood Culture (Wb) - Anticubital Left Blood Culture - Preliminary No growth in 48 hours. 07/21/25 09:38 Mucosa - Nose SARS-CoV-2, Influenza & RSV (PCR) - Final 07/21/25 10:25 Stool Stool Occult Blood (GIORGIO) - Final Radiography Diagnostic Testing: Radiology Impression Abdomen Ultrasound 07/23/25 15:08 IMPRESSION: Coarsened echotexture of the liver. Splenomegaly. Small amount of ascites seen in the right upper quadrant. Reading Location: [facility] Rhythm Strip Rhythm Strip: Sinus Tach Rate: 101 Ectopy: None Physical Exam Narrative Seen and examined I talked to the patient's on the phone today. Patient had right upper quadrant sonogram. Leg pain is better about 4-6/10 in intensity. Small tender on pressing Shortness of breath is improved. Significant right leg swelling. Complain of right leg pain. Physical exam: General: Alert, Oriented x3, Cooperative. Morbid obesity BMI 54.2 kg/m? HEENT: Atraumatic, PERRLA, EOMI, Normocephalic. Oral: Deep oropharyngeal history could not be visualized Neck: Supple, No JVD, Negative Carotid Bruits Chest wall/Lungs: Air entry severely diminished in bilateral lung bases. No crepitation Cardiovascular: Regular rate and rhythm, Normal S1,S2, No M/G/R Abdomen: Bowel Sounds Present, Soft, Non Tender, Non-Distended : No dysuria. No renal angle tenderness. No suprapubic tenderness. Extremities: No edema, Capillary Refill Less than 3 Seconds Skin: Redness/erythema present over right calf area is better Musculoskeletal: Tenderness in right calf. Bilateral lower extremity lymphedema chronic. ROM restricted over knees and hip joints Neurological: Cranial nerves II-XII grossly intact, DTR 2+/4. No acute focal neurological deficit. Psych/Mental Status: Flat affect Assessment & Plan Assessment/Plan (1) Cellulitis: QUALIFIERS: Site of cellulitis: extremity Site of cellulitis of extremity: lower extremity Laterality: right Qualified Code(s): L03.115 - Cellulitis of right lower limb (2) Chest pain, atypical: PLAN: Plan This is 45-year-old gentleman admitted with chest pain last night and several weeks of shortness of breath yesterday 1. Atypical chest pain and SOB probably due to heart failure exacerbation: Patient is being admitted in PCU. First troponin 8, second pending. proBNP 106 but may be falsely normal/low due to morbid obesity. Chest CTA negative for pulmonary embolism and earlier venous duplex were negative for acute DVT. It shows mild/trivial edema, mild mediastinal adenopathy and cirrhosis. Lactic acid elevated probably due to ineffective circulation/venous congestion. Started on furosemide 40 mg IV twice daily. ED physician ordered 1 L normal saline bolus. Heart failure core measures including intake and output, fluid restriction less than 1500 mL, daily weight monitoring, kidney and electrolytes monitoring. 2D echo ordered for tomorrow a.m. Twelve-lead EKG sinus tachycardia 101 bpm, QTc 479 ms. No previous EKG to compare. 07/22: 2D echo reviewed shows mild concentric LVH, mildly dilated LV, inferior hypokinesis EF 55%, stage I diastolic function. Acute HFpEF. Normal RV and both left and right atria. Mild MR. Mean peak gradient 8 mmHg but not reported aortic stenosis. Mildly thickened aortic valve leaflets. Continue diuresis as mentioned above. 07/23: Continue diuresis. 07/24: Discussed about the follow-up with route driver salesperson for heart failure and further prognosis depends on the medication compliance and natural history of the disease. 2. RLE cellulitis with bilateral chronic venous hypertension and lymphedema: Right lower leg is tender and edematous slightly more than LLE. Venous duplex of right lower extremity negative for acute DVT. It shows valvular competence possible deep venous system. Started on IV ceftriaxone after patient got IV cefazolin in the ED. No open wound to culture. 07/22: Discussed the patient about the DVT prophylaxis with high risk of DVT but patient also high risk of bleeding with severe anemia and thrombocytopenia, and coagulopathy with INR 1.7. IV iron ordered for severe anemia. May consider low-dose anticoagulant later on when anemia is better. 07/23: Patient stated that his pain is better. Probably antibiotic working 3. Decompensated MASLD cirrhosis with mild perihepatic ascites, thrombocytopenia and hypotonic hypervolemic hyponatremia: Albumin 2.5, platelet count 112K. T. bili 3.82, AST 42. ALT normal. Right upper quadrant sonogram ordered. 07/23: Total bilirubin 2.12. INR 1.6. Transaminases normal. Alkaline phosphatase normal. 07/24: Patient does not follow with GI or beater dumper as per the . She has to find a new one. RUQ sonogram shows coarsened hepatic echotexture, nodular contour suggestive of cirrhosis. Mild perihepatic ascites. GB no stones sludge wall thickening or tenderness. CBD 4 mm. Splenomegaly, spleen 16.4 cm. Overall consistent with decompensated cirrhosis. Total bilirubin 2.01. AST ALT improving. 4. DM type II: Glucose is elevated 168. Patient on multiple oral antidiabetic medications which are held. Started on Lantus 10 units p.o. daily. Accu-Chek before meals and at bedtime with Humalog sliding scale coverage and hypoglycemia protocol. 07/23: Glucoses 129-226. Lantus dose increased 5. Hypertension: Blood pressure is in normal range though it was elevated in the ED. 6. Acute severe anemia on chronic normocytic normochromic and thrombocytopenia present on admission: H&H 8.8/26.8% on admission. Last hemoglobin 10.4 in June 2024. Dropped to 7.5 g%. MCV normal, MCH low. RDW elevated. Probably iron deficiency anemia. Anemia workup ordered. Reticulocyte count high 3.89, immature reticulocyte fraction 38.5 therefore bone marrow responsive to anemia. Folate normal. 07/24: Iron profile suggestive of anemia of chronic disease with elevated iron saturation 57%, iron 152, ferritin 104, B12 03/26/1946. Therefore iron was not given as it might worsen ferritin deposition in the liver/worsening of stenosis. Other comorbidities include GERD, anal fissure/hemorrhoid: On PPI. Continue PPI. Saw Dr. Lorie Willson for anal fissure and was advised sitz bath, diltiazem and lidocaine suppository and avoid constipation. 7. Morbid obesity with obstructive sleep apnea/possible obesity hypoventilation syndrome: Patient uses CPAP at home, continue Living will/advanced directive/end of life care: Patient does not have living will or advanced directive. His is next of kin. After discussion of benefits/risks procedures involved with full code, DNR CC arrest and DNR CC, the patient opted for full code. Patient does want artificial life support including intubation, tube feed, ventilator and/chest compression, central venous catheter, vasopressor and DC shock if needed Total time spent in [id number] encounter in discussion of advanced directive 17 minutes. Microbiology Past 72 Hours 07/21/25 10:25 Urine, Clean Catch Urine Culture - Preliminary Streptococcus agalactiae (B) Mixed Gram Positive Organisms 07/21/25 09:15 Blood Culture (Wb) - Anticubital Left Blood Culture - Preliminary No growth in 48 hours. 07/21/25 09:15 Blood Culture (Wb) - Anticubital Left Blood Culture - Preliminary No growth in 48 hours. 07/21/25 09:38 Mucosa - Nose SARS-CoV-2, Influenza & RSV (PCR) - Final 07/21/25 10:25 Stool Stool Occult Blood (GIORGIO) - Final Laboratory Results 07/23/25 04:51: Iron 152, TIBC 267, Iron Saturation 57.0 H, Unsaturated IBC 115 L, Ferritin 104, Vitamin B12 1344 H 07/23/25 10:16: Serum Folate 10.50 07/23/25 16:51: POC Glucose 228 H 07/23/25 20:57: POC Glucose 190 H 07/24/25 05:12: WBC 8.0, RBC 2.99 L, Hgb 7.8 L, Hct 24.4 L, MCV 81.6, MCH 26.1 L, MCHC 32.0, RDW Std Deviation 66.8 H, RDW Coeff of Melina 23.8 H, Plt Count 130 L, MPV 9.9, Immature Gran % (Auto) 2.500 H, Neut % (Auto) 60.8, Lymph % (Auto) 14.1 L, Cole % (Auto) 16.9 H, Eos % (Auto) 5.1 H, Baso % (Auto) 0.6, Absolute Neuts (auto) 4.9, Absolute Lymphs (auto) 1.13, Nucleated RBC % 0, Differential Comment SCANNED, Platelet Estimate SLT DEC, Polychromasia 1+, Basophilic Stippling 1+, Anisocytosis 2+, Acanthocytes (Spur) RARE, Sodium 131 L, Potassium 3.7, Chloride 100, Carbon Dioxide 23.7, Anion Gap 8, BUN 9, Creatinine 0.64 L, Estim Creat Clear Calc 233.67, Est GFR (MDRD) Non-Af 117, BUN/Creatinine Ratio 13.5, Glucose 146 H, Calcium 7.5 L, Total Bilirubin 2.01 H, AST 41 H, ALT 24, Alkaline Phosphatase 110, Total Protein 6.2, Albumin 2.2 L, Globulin 4.0, Albumin/Globulin Ratio 0.6 L 07/24/25 06:30: POC Glucose 133 H 07/24/25 11:00: POC Glucose 137 H Clinical Impression(s) from Imaging Studies Chest CTA 07/21/25 09:27 IMPRESSION: Negative for pulmonary embolus.. Mild interstitial edema. Mild mediastinal adenopathy. Cirrhosis. Reading Location: [facility] Echocardiogram 07/22/25 05:55 Interpretation Summary Mild concentric left ventricular hypertrophy. Mildly dilated left ventricle. Mild (1+) posteriorly directed mitral valve insufficiency. Trileaflet aortic valve. Mildly thickened leaflets. Mean peak gradient 8 mmHg. The study was technically difficult. Inferior hypokinesis. Estimated LVEF 55%. Stage I diastolic dysfunction. Ordering Physician: Timoteo Cooper Referring Physician: CLARITZA DURAN Performed By: Jessica Wright RCS Abdomen Ultrasound 07/23/25 15:08 IMPRESSION: Coarsened echotexture of the liver. Splenomegaly. Small amount of ascites seen in the right upper quadrant. Reading Location: [id number] Charges/Coding Visit Charges Inpatient E&M: 69014 Subs Hosp L2
[2025-07-24 15:00] VITALS: BP 124/48; PULSE 106; RESP 16; TEMP 37.1; O2SAT 93
[2025-07-24] MEDS: Insulin Glargine-YFGN 100 UNIT/ML Pen 20 UNIT SC (16:38)
[2025-07-24 20:40] VITALS: BP 129/42; PULSE 107; RESP 20; TEMP 37.7; O2SAT 95
[2025-07-24 22:15] VITALS: BP 117/49; PULSE 114; RESP 18; TEMP 37.2; O2SAT 94
[2025-07-25 04:25] VITALS: BP 133/56; PULSE 89; RESP 16; TEMP 36.7; O2SAT 96
[2025-07-25 09:12] LABS: Hematocrit 25.3 % (40-54); Hemoglobin 8.1 g/dL (13.0-16.5); Immature Granulocytes Count 0.100 X10^3/uL (0.0-0.0); Mean Corp Hgb Conc 32.0 g/dL (32-36); Mean Corpuscular Volume 82.7 fL (80-94); Mean Platelet Vol. 9.4 fl (6.2-12.0); NRBC Flagged by Analyzer 0 % (0-5); POSITIVE MORPHOLOGY YES; Platelet Count 133 K/mm3 (150-450); RBC Distribution Width CV 24.4 % (11.6-14.6); RBC Distribution Width SD 69.5 fl (35.1-43.9); Red Blood Count 3.06 M/mm3 (4.6-6.2); White Blood Count 6.1 K/mm3 (4.4-11.0)
[2025-07-25 09:18] LABS: Differential Indicated SCAN CRITERIA MET
[2025-07-25 09:42] LABS: AST(SGOT) 40 U/L (<=37); Alanine Aminotransfer ALT/SGPT 25 U/L (<=46); Albumin, Serum 2.2 g/dL (3.5-5.0); Alkaline Phosphatase 103 U/L (40-129); Anion Gap 9 (5-15); BUN 8 mg/dL (4-19); BUN/Creat Ratio 14.3 RATIO (10-20); Calcium,Total 7.5 mg/dL (7.6-11.0); Carbon Dioxide 23.4 mmol/L (21.0-32.0); Chloride 101 mmol/L (98-108); Estimated Creatinine Clearance 257.84 ml/min (50-250); Globulin 4.2 g/dL (2.2-4.2); Glucose 154 mg/dL (70-99); Potassium 3.6 mmol/L (3.3-5.1)
[2025-07-25] MEDS: Polyethylene Glycol 3350 17 GM PACKET PO (09:47)
[2025-07-25] MEDS: 0.9% Saline Lock 10 ML Syringe IV ×4 (09:48→19:17)
[2025-07-25 09:56] VITALS: BP 124/47; PULSE 98; RESP 14; TEMP 36.8; O2SAT 95
[2025-07-25 09:57] VITALS: O2SAT 91; O2SAT 95
[2025-07-25 10:32] LABS: Anisocytosis 3+
[2025-07-25 10:33] LABS: Polychromasia 1+
[2025-07-25] MEDS: Potassium Chloride Oral Tablet 20 MEQ 40 MEQ PO (11:54)
[2025-07-25] MEDS: Ceftriaxone 2 GM in 0.9% Normal Saline (50mL MB+) 50 ML IV (14:19)
--- NOTE | 2025-07-25 16:23 | CHAPLAIN ---
Type of Pastoral Visit _x__ Initial Visit ___ Follow-up Visit ___ On-call Visit ___ General Patient Visit ___ Spiritual Assessment ___ Family Conference ___ Bereavement ___ Rapid Response ___ Code Blue ___ Other (describe below) Pastoral Care Referral From _x__ Patient ___ Family ___ Nurse ___ Physician ___ Lithoplate Maker ___ Engineering Equipment Operator ___ Other (describe below) Sacrament/Intervention _x__ Active listening ___ Anointing ___ Roman Catholic _x__ Bereavement ___ Communion _x__ Aysha exploration ___ _x__ Life review _x__ Prayer ___ Reconciliation ___ Sacrament of Sick _x__ Supportive presence ___ Wedding ___ Other (describe below) Pastoral Comments at first the patient is not interactive and appears apathetic or lethargic; pt is given time to speak more openly with open ended questions and reflective responses; acknowledgement given that patient has endured grief, loss of job, pain, illness, and the health decline of his ; pt and spouse are supported in some ways by living parents; pt acknowledges his coping methods usually include prayer and scriptures, however admitting that he has been so discouraged that he wonders how and if God is with him; listened and provided empathy and offered words of hope to consider; pt welcomes presence and prayer; pt is often tearful in the visit and he is given 'permission' to cry
--- NOTE | 2025-07-25 17:03 | PN.HOSP_ITS ---
Reason for Visit Chief Complaint: Atypical chest pain about 2 times last night. Subjective Subjective Patient states overall he is about 50 to 60% better. His leg is web press roll tender. He is diuresing fairly well. Shortness of breath seems to be improving. Family inquired about some rehab however he is doing too well with mobility to go anywhere for acute rehab or skilled facility at discharge but we did indicate we would refer him to outpatient physical therapy at the time of discharge so he can ongoing therapy. Motivation seems to be a significant problem. Objective Data Objective Data Vital Signs: Vital Signs Temp Pulse Resp BP Pulse Ox O2 Del Method 98.3 F 98 14 124/47 H 95 Room Air 07/25/25 09:56 07/25/25 09:56 07/25/25 09:56 07/25/25 09:56 07/25/25 09:56 07/25/25 14:24 Oxygen Delivery Method Room Air Weight: 176.5 kg Body Mass Index (BMI) 54.2 Intake & Output: Intake and Output for Last 24 Hours 07/23/25 07/24/25 07/25/25 23:59 23:59 23:59 Intake Total 880 / 880 1730 / 1730 550 / 550 Output Total 1150 / 2250 2850 / 2850 300 / 300 Balance -270 / -1370 -1120 / -1120 250 / 250 Lab / Micro Data 07/25/25 08:35 07/25/25 08:35 Labs: Laboratory Results - last 24 hr 07/24/25 16:36: POC Glucose 230 H 07/24/25 22:17: POC Glucose 201 H 07/25/25 06:18: POC Glucose 149 H 07/25/25 08:35: WBC 6.1, RBC 3.06 L, Hgb 8.1 L, Hct 25.3 L, MCV 82.7, MCH 26.5 L , MCHC 32.0, RDW Std Deviation 69.5 H, RDW Coeff of Melina 24.4 H, Plt Count 133 L, MPV 9.4, Immature Gran % (Auto) 1.700 H, Neut % (Auto) 57.6, Lymph % (Auto) 15.0 L, Borden % (Auto) 19.1 H, Eos % (Auto) 5.6 H, Baso % (Auto) 1.0, Absolute Neuts (auto) 3.5, Absolute Lymphs (auto) 0.91, Nucleated RBC % 0, Polychromasia 1+, Anisocytosis 3+, Ovalocytes 1+, Sodium 133, Potassium 3.6, Chloride 101, Carbon Dioxide 23.4, Anion Gap 9, BUN 8, Creatinine 0.58 L, Estim Creat Clear Calc 257.84 H, Est GFR (MDRD) Non-Af 121, BUN/Creatinine Ratio 14.3, Glucose 154 H, C alcium 7.5 L, Total Bilirubin 2.14 H, AST 40 H, ALT 25, Alkaline Phosphatase 103, Total Protein 6.3, Albumin 2.2 L, Globulin 4.2, Albumin/Globulin Ratio 0.5 L 07/25/25 11:56: POC Glucose 209 H Micro: Microbiology 07/21/25 10:25 Urine, Clean Catch Urine Culture - Final Streptococcus agalactiae (B) Mixed Gram Positive Organisms 07/21/25 09:15 Blood Culture (Wb) - Anticubital Left Blood Culture - Preliminary No growth in 48 hours. 07/21/25 09:15 Blood Culture (Wb) - Anticubital Left Blood Culture - Preliminary No growth in 48 hours. 07/21/25 09:38 Mucosa - Nose SARS-CoV-2, Influenza & RSV (PCR) - Final 07/21/25 10:25 Stool Stool Occult Blood (GIORGIO) - Final Rhythm Strip Rhythm Strip: Sinus Tach Rate: 101 Ectopy: None Physical Exam Const alert, oriented x3, no apparent distress and well nourished; Negative for average body habitus or healthy appearing Constitutional Narrative: Morbidly obese, white male, sitting up in bed, appears comfortable, affect is flat, is not toxic, appears much older than stated age HEENT head/scalp atraumatic and moist oral mucous membranes HEENT Narrative: Mallampati 3-4, no thrush Head and Scalp: normocephalic Resp normal respiratory effort, no retractions, no use of accessory muscles and clear to auscultation bilaterally Resp Narrative: Limited exam due to body habitus Auscultation: Negative for rales, rhonchi or wheezes Cardio regular rate, regular rhythm, S1 normal heart sound, S2 normal heart sound, no murmurs, no rub, no gallops and no clicks Cardio Narrative: Heart tones are distant due to body habitus GI normal to inspection, nondistended, normoactive bowel sounds, soft to palpation and non-tender GI Narrative: Large protuberant abdomen Extremity Extremity Narrative: Severe bilateral lower extremity edema that appears to be chronic, no significant cyanosis or clubbing, lower extremity wraps are in place for edema Skin Skin Narrative: Skin is slightly pale Neuro oriented x3, moves all extremities and no focal motor deficits Neuro Narrative: Generalized weakness noted no focal deficits Speech: speech normal Psych Psych Narrative: Affect is flat and mood seems somewhat depressed but patient did not interact and answer questions appropriately Assessment & Plan Assessment/Plan (1) Elevated lactic acid level: (2) Hx of cirrhosis: (3) Serum total bilirubin elevated: (4) Cellulitis of right leg without foot: (5) Anemia: (6) Acute on chronic heart failure with preserved ejection fraction: PLAN: Plan Acute on chronic heart failure with preserved ejection fraction secondary to diastolic dysfunction and suspected RV dysfunction - Echocardiogram shows mild wall motion abnormality inferiorly but a preserved EF - Will need outpatient follow-up and possible stress test once he is stable - Will continue diuretics but transition from Lasix to Bumex and due to hypoalbuminemia related to cirrhosis - Continue fluid restriction - Continue sodium restriction - continue daily weights - Dopplers negative for DVT -Continue lower extremity Kam bandages - Will need cardiology follow-up at discharge Acute on chronic MASLD cirrhosis - Imaging showed perihepatic ascites and patient has thrombocytopenia and chronic anemia with hypoalbuminemia and elevated bilirubin - Will need outpatient follow-up with GI - Continue IV diuresis - Continue Aldactone - Continue diuretics but transition from Lasix to Bumex due to hypoalbuminemia Right lower extremity cellulitis - Slowly improving likely exacerbated by chronic edema and venous stasis - Recommend close follow-up at discharge - Will transition from doxycycline and ceftriaxone to Levaquin in preparation for discharge -->MRSA infection unlikely - Patient without leukocytosis or left shift so highly suspicious of venous stasis is the etiology for this Chronic anemia - Likely related to liver disease - Stable - Outpatient referral to gastroenterology 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 - Stable DM-2 - Continue Lantus 20 units daily -Fasting blood sugar 154 this morning - Continue Accu-Cheks - Cardiac/carb controlled diet with sodium restriction - SSI as ordered - A1c was 6.1 on presentation however this is falsely low most likely secondary to chronic anemia - Restart home oral medication regimen at discharge Chronic constipation - Continue home polyethylene glycol - Continue home senna/docusate Essential hypertension/hyperlipidemia - Currently on fairly aggressive diuresis and Aldactone - continue continue to monitor his blood pressure - Continue home statin GERD - Continue PPI Anal fissure - Patient has followed with general surgery prior - [facility] advised and avoidance of constipation with lidocaine suppository SAÚL - Continue home CPAP Morbid obesity - BMI 54.3 - Markedly complicates treatment, prognosis, outcomes - Recommend weight loss DVT prophylaxis - Start Lovenox SQ twice daily as platelet count is greater than 75,000 and anemia is stable - Monitor counts closely CODE STATUS - Full code Charges/Coding Visit Charges Inpatient E&M: 63840 Subs Hosp L2
[2025-07-25] MEDS: Insulin Glargine-YFGN 100 UNIT/ML Pen 20 UNIT SC (17:14)
[2025-07-25 17:15] VITALS: BP 136/60; PULSE 101; RESP 18; TEMP 37.4; O2SAT 95
[2025-07-25] MEDS: levoFLOXacin IV 750 MG/150 ML BAG 100 MG IV (18:48)
[2025-07-25 18:52] VITALS: BP 119/58
[2025-07-25] MEDS: HYDROmorphone 0.5 MG/0.5 ML SYRINGE IV (19:17)
[2025-07-25 22:55] VITALS: BP 110/60; PULSE 100; RESP 16; TEMP 37.4; O2SAT 94
[2025-07-26 03:18] VITALS: BMI 54.4
[2025-07-26 03:45] VITALS: BP 101/60; PULSE 70; RESP 16; TEMP 36.9; O2SAT 96
[2025-07-26 05:49] LABS: Hematocrit 25.3 % (40-54); Hemoglobin 8.1 g/dL (13.0-16.5); Mean Corp Hgb Conc 32.0 g/dL (32-36); Mean Corpuscular Volume 83.5 fL (80-94); Mean Platelet Vol. 9.9 fl (6.2-12.0); POSITIVE MORPHOLOGY YES; Platelet Count 129 K/mm3 (150-450); RBC Distribution Width CV 24.9 % (11.6-14.6); RBC Distribution Width SD 71.4 fl (35.1-43.9); Red Blood Count 3.03 M/mm3 (4.6-6.2); White Blood Count 6.0 K/mm3 (4.4-11.0)
[2025-07-26 06:22] LABS: AST(SGOT) 47 U/L (<=37); Alanine Aminotransfer ALT/SGPT 27 U/L (<=46); Albumin, Serum 2.0 g/dL (3.5-5.0); Alkaline Phosphatase 128 U/L (40-129); Anion Gap 9 (5-15); BUN 8 mg/dL (4-19); BUN/Creat Ratio 11.9 RATIO (10-20); Calcium,Total 7.3 mg/dL (7.6-11.0); Carbon Dioxide 23.3 mmol/L (21.0-32.0); Chloride 101 mmol/L (98-108); Estimated Creatinine Clearance 217.11 ml/min (50-250); Globulin 4.1 g/dL (2.2-4.2); Glucose 140 mg/dL (70-99); Magnesium 1.9 mg/dL (1.5-2.2); Potassium 3.5 mmol/L (3.3-5.1)
[2025-07-26 07:17] LABS: Scan Indicated on CBC? Y/N YES- FLAGS NOTED
[2025-07-26 08:20] VITALS: BP 114/62; PULSE 81; RESP 18; TEMP 36.9; O2SAT 94
[2025-07-26] MEDS: HYDROmorphone 0.5 MG/0.5 ML SYRINGE IV (08:29)
[2025-07-26] MEDS: Senna/Docusate Sodium 1 Tablet 2 TABLET PO (08:44)
[2025-07-26] MEDS: Polyethylene Glycol 3350 17 GM PACKET PO (08:44)
[2025-07-26] MEDS: levoFLOXacin IV 750 MG/150 ML BAG 100 MG IV (09:07)
[2025-07-26 13:00] VITALS: O2SAT 83; O2SAT 91; O2SAT 93
--- NOTE | 2025-07-26 14:08 | EKG12_ITS ---
Test Reason : CP Blood Pressure : */* mmHG Vent. Rate : 81 BPM Atrial Rate : 81 BPM P-R Int : 180 ms QRS Dur : 86 ms QT Int : 436 ms P-R-T Axes : 25 7 24 degrees QTcB Int : 506 ms Normal sinus rhythm Prolonged QT Abnormal ECG When compared with ECG of 21-Jul-2025 09:41, Nonspecific T wave abnormality no longer evident in Lateral leads Confirmed by Viet Henley ([id number]), book or script editor JACQUELYN ANDRADE ([id number]) on 07/29/2025 1:29:21 PM Referred By: Confirmed By: Viet Henley
--- NOTE | 2025-07-26 14:38 | DS.PCM_ITS ---
Providers Date of Admission: 07/21/25 Date of Discharge: 07/26/25 Primary Care Physician: Alis Mace MD Reason For Visit: HF EXA, RLE CELLULITIS Diagnosis Discharge Diagnosis (1) Elevated lactic acid level: Status: Acute Code(s): R79.89 - Other specified abnormal findings of blood chemistry (2) Hx of cirrhosis: Status: Acute Code(s): Z87.19 - Personal history of other diseases of the digestive system (3) Serum total bilirubin elevated: Status: Acute Code(s): R17 - Unspecified jaundice (4) Cellulitis of right leg without foot: Status: Acute Code(s): L03.115 - Cellulitis of right lower limb (5) Anemia: Status: Acute Code(s): D64.9 - Anemia, unspecified (6) Acute on chronic heart failure with preserved ejection fraction: Status: Acute Code(s): I50.33 - Acute on chronic diastolic (congestive) heart failure Medications at Discharge Home Medications metformin 1,000 mg tablet 1,000 mg PO BID diabetes 01/28/25 sitagliptin phosphate 100 mg tablet (Januvia) 100 mg PO QDAY diabetes 01/28/25 atorvastatin 20 mg tablet 20 mg PO DAILY cholesterol 07/21/25 omeprazole 40 mg capsule,delayed release 40 mg PO DAILY stomach 07/21/25 repaglinide 1 mg tablet 1 mg PO BID diabetes 07/21/25 CPAP - Continuous Positive Airway Pressure([facility] INFORMATIONAL USE ONLY) 07/23/25 bumetanide 2 mg tablet 2 mg PO BID #60 tabs 07/26/25 levofloxacin 750 mg tablet 750 mg PO DAILY #5 tabs 07/26/25 nadolol 20 mg tablet 20 mg PO BID #60 tabs 07/26/25 oxycodone 5 mg tablet 5 mg PO Q6H PRN PRN Pain Score 6-10 or Pre PT/OT 7 days #30 tabs 07/26/25 potassium chloride 20 mEq tablet,extended release(part/cryst) (Klor-Con M) 20 meq PO DAILY #30 tabs 07/26/25 spironolactone 25 mg tablet 25 mg PO DAILY #30 tabs 07/26/25 Hospital Course Procedures 2-D Echocardiogram, EKG and - Summary of Care Provided Minutes Spent on Discharge: 39 Hospital Course: Mr. Clifton is a 45-year-old white male who presented to the emergency department at [facility] on 07/21/2025 with a chief complaint of chest pain. He has a history of metabolic associated liver disease and right leg pain with history of chronic venous stasis. He stated the night prior to presentation he developed some dull aching in his chest at about 8 PM that lasted for couple minutes and then he had to go work at the [place]. He stated he returned home at about 9 PM and was having a bit of chest pain at that time but it resolved spontaneously. On the day of presentation he intermittently can seem to have that sensation and has been winded even putting his pants on. He reported that he for several months he has had exercise intolerance and dyspnea on exertion and worsening pain of his right lower extremity for about 2 to 3 days. Leg pain was reported to be dull ache and became stabbing with walking. Outpatient D- dimer was obtained elevated and the venous duplex was noted to be negative. Patient also complained about a week of symptoms of URI. Vital signs on presentation showed a temperature of 98.8, heart rate 106, respiratory 22, blood pressure 151/56 and sats were 96% on room air. CBC showed normal white count with very minimal left shift that not 70.4%. It a chronic anemia that was stable at 8.8. Coags were abnormal with a PT of 20.3, INR 1.7 and PTT of 39.4 consistent with his liver disease. Chemistry panel showed hyponatremia with a sodium of 127, serum bicarb of 17.8 with a normal anion gap. Normal serum creatinine 0.65 and a lactic acid of 3.2. Repeat lactic acid was 2.5 after treatment was instituted. Bilirubin was 3.2 and AST was mildly elevated at 42 with an ALT of 33. Troponin was normal with a delta and 4-hour troponin which were unremarkable as well. proBNP was 106. TSH was normal at 1.55. CTA of the chest was done given his elevated D-dimer and found to be negative for PE but showed mild interstitial edema and mild mediastinal adenopathy with cirrhosis. Abdominal ultrasound showed coarsened echotexture of the liver and splenomegaly with a very small amount of ascites in the right upper quadrant. With his right lower extremity cellulitis, he was placed on antibiotics. Kam bandages were placed for his chronic swelling and an echocardiogram was obtained. He had no previous echocardiogram for comparison. He had LVH with mildly dilated LV, inferior hypokinesis, EF was 55% and he has stage I diastolic dysfunction. With nml trop and nml EKG, will refer to outpt cardiology f/u and consideration for stress testing. He was maintained on IV lasix and then transitioned to bumex due to his liver disease. He was negative about 3 L during his hospitalization. His leg slowly improved but he was still having some lower extremity pain. The venous stasis markedly contributes to his ongoing issues in his right lower extremity and ongoing diuresis should help improve this. He still complained of some exertional dyspnea so we did an ambulatory pulse ox prior to discharge and he desatted to 83% but only with exertion. He needed 2 L and that brought him up to 93% with exertion. We transition his home Lasix to Bumex and due to his chronic hypoalbuminemia. Placed him on Levaquin to complete antibiotic course. Started nadolol because he does have a reported history of esophageal varices and put him on low-dose potassium supplementation as well as Aldactone. I have advised him to follow-up both with cardiology and GI. He is to call on Tuesday to set up these appointments. His sodium had normalized with diuresis. I have asked him to stay off work until next Tuesday to keep his legs up and initiate physical therapy. He was seen by physical and Occupational Therapy during his hospital course and they did not advise any ongoing therapy other than outpatient rehab services at the time of discharge. We advised him to fluid restrict to 1.5 to 2 L daily and sodium restrict to no more than 4 g daily. He was advised to weigh himself on a daily basis and take an extra dose of Bumex if he gains more than 2 to 3 pounds in a 24-hour period. It is imperative he follow-up with GI. He is to follow-up with his primary care physician within the next 5 to 7 days and asked for a basic metabolic profile to reassess his renal function and electrolytes. Discharge diagnoses: Acute on chronic heart failure with preserved ejection fraction secondary to diastolic dysfunction and suspected RV dysfunction Acute on chronic MASLD cirrhosis Right lower extremity cellulitis Chronic anemia Chronic thrombocytopenia secondary to liver disease DM-2 History of esophageal varices Chronic constipation Essential hypertension Hyperlipidemia GERD History of anal fissure SAÚL Morbid obesity Physical Exam Const alert, oriented x3, no apparent distress, no limitations and well nourished; Negative for average body habitus or healthy appearing Constitutional Narrative: Morbidly obese, white male, sitting up in bed, appears comfortable, affect is flat, is not toxic, appears much older than stated age General Appearance: cooperative, comfortable, well kempt and well developed Exam Limitations: no limitations Nutritional Appearance: morbidly obese HEENT normocephalic, head/scalp atraumatic, hearing grossly normal bilaterally and moist oral mucous membranes HEENT Narrative: Mallampati 3-4, no thrush Eyes Eyes Narrative: Hello conjunctiva bilaterally, no scleral icterus Neck supple Neck Narrative: Neck is short and thick, trachea midline Resp normal respiratory effort, no retractions, no use of accessory muscles and clear to auscultation bilaterally Resp Narrative: Limited exam due to body habitus Auscultation: Negative for rales, rhonchi or wheezes Cardio regular rate, regular rhythm, S1 normal heart sound, S2 normal heart sound, no murmurs, no rub, no gallops and no clicks Cardio Narrative: Heart tones are distant due to body habitus GI normal to inspection, nondistended, normoactive bowel sounds, soft to palpation and non-tender GI Narrative: Large protuberant abdomen Extremity Extremity Narrative: Severe bilateral lower extremity edema that appears to be chronic, no significant cyanosis or clubbing, lower extremity wraps are in place for edema Skin no jaundice Skin Narrative: Skin is slightly pale Neuro oriented x3, moves all extremities and no focal motor deficits Neuro Narrative: Generalized weakness noted no focal deficits Speech: speech normal Psych Psych Narrative: Affect is flat and mood seems somewhat depressed but patient did not interact and answer questions appropriately Weight / BMI Weight Weight: 177 kg Body Mass Index (BMI) 54.4 ABG / Lab / Microbiology Data 07/26/25 04:46 07/26/25 04:46 Laboratory: Laboratory Results - last 24 hr 07/25/25 23:02: POC Glucose 200 H 07/26/25 04:46: WBC 6.0, RBC 3.03 L, Hgb 8.1 L, Hct 25.3 L, MCV 83.5, MCH 26.7 L , MCHC 32.0, RDW Std Deviation 71.4 H, RDW Coeff of Melina 24.9 H, Plt Count 129 L, MPV 9.9, Sodium 133, Potassium 3.5, Chloride 101, Carbon Dioxide 23.3, Anion Gap 9, BUN 8, Creatinine 0.69 L, Estim Creat Clear Calc 217.11, Est GFR (MDRD) Non- Af 115, BUN/Creatinine Ratio 11.9, Glucose 140 H, Calcium 7.3 L, Phosphorus 2.7, Magnesium 1.9, Total Bilirubin 1.75 H, AST 47 H, ALT 27, Alkaline Phosphatase 128, Total Protein 6.1, Albumin 2.0 L, Globulin 4.1, Albumin/Globulin Ratio 0.5 L 07/26/25 06:34: POC Glucose 142 H 07/26/25 11:41: POC Glucose 188 H Microbiology: Microbiology 07/21/25 09:15 Blood Culture (Wb) - Anticubital Left Blood Culture - Final No growth in 5 days. 07/21/25 09:15 Blood Culture (Wb) - Anticubital Left Blood Culture - Final No growth in 5 days. 07/21/25 10:25 Urine, Clean Catch Urine Culture - Final Streptococcus agalactiae (B) Mixed Gram Positive Organisms 07/21/25 09:38 Mucosa - Nose SARS-CoV-2, Influenza & RSV (PCR) - Final 07/21/25 10:25 Stool Stool Occult Blood (GIORGIO) - Final D/C Instructions Discharge Activity: Return to Normal Activity Return to work on: 08/05/25 Weight Bearing Status: Weight bearing as tolerated Keep extremity elevated above heart level: Legs Additional Activity Instructions: Continue Kam bandage wraps tighter at the bottom and looser at the top per nursing instruction DC O2, CPAP, BIPAP Needs Home O2 Discharge instructions: Yes Type of respiratory needs?: Oxygen Oxygen frequency: With Ambulation Oxygen liters per minute during Ambulation: 2 DC home with Oxygen: Yes Home O2 MD Review: I have reviewed the oxygen testing, and the patient qualifies for home oxygen equipment and portability. The patient is mobile in the home and the community. Meaningful Use Info Meaningful Use Meaningful Use Diagnoses (Choose all that apply): CHF CHF KAM/ARB ordered at discharge?: No Reason KAM/ARB not ordered?: Drug Interaction Documented LVEF (%): 55 Discharge Plan Admission Admit Date/Time: 07/21/25 12:11 Primary Reason for Your Visit: Chest Pain Attending Provider: Myriam Aguilar Primary Care Provider: Alis Mace Consulting Providers: Timoteo Cooper Instructions Forms: Work Excuse Additional Instructions / Restrictions: 1. Please make an appointment follow-up with your primary care physician in 1 week and you will need to have a basic metabolic profile be ordered to check your potassium and kidney function 2. Please restrict your sodium to 3 to 4 g daily and restrict your fluid intake to 1.5 to 2 L daily 3. Please weigh yourself every morning with no close on and keep track of your weight. If you gain more than 2 to 3 pounds in a 24-hour period take an extra dose of Bumex (diuretic) 4. Please call cardiology and GI below on Tuesday to schedule outpatient follow- up Discharge Orders/Prescriptions Prescriptions: New nadolol 20 mg Tablet 20 mg PO BID Qty: 60 0RF oxycodone 5 mg Tablet 5 mg PO Q6H PRN PRN (Reason: Pain Score 6-10 or Pre PT/OT) 7 Days Qty: 30 0RF spironolactone 25 mg Tablet 25 mg PO DAILY Qty: 30 0RF levofloxacin 750 mg tablet 750 mg PO DAILY Qty: 5 0RF bumetanide 2 mg tablet 2 mg PO BID Qty: 60 0RF potassium chloride [Klor-Con M20] 20 mEq tablet,ER particles/crystals 20 meq PO DAILY Qty: 30 0RF Discontinued lisinopril 5 mg tablet 5 mg PO QDAY furosemide 40 mg tablet 40 mg PO QDAY triamterene-hydrochlorothiazid 37.5-25 mg capsule 1 cap PO DAILY No Action metformin 1,000 mg tablet 1,000 mg PO BID Januvia 100 mg tablet 100 mg PO QDAY atorvastatin 20 mg tablet 20 mg PO DAILY omeprazole 40 mg capsule,delayed release(DR/EC) 40 mg PO DAILY repaglinide 1 mg tablet 1 mg PO BID (DME) CPAP - Continuous Positive Airway Pressure([facility] INFORMATIONAL USE ONLY) Device See Rx Instructions .ROUTE Rx Instructions: As directed Referrals / Follow Up: Alis Mace MD [Primary Care Provider] - 08/02/25 3:00 pm Viet Henley MD [Med Staff - Active Staff] - Within 1 Month (Call Tuesday to schedule appointment) Contreras rAroyo DO [Med Staff - Active Staff] - Within 1 Month (Call Tuesday to schedule appointment) Disposition Disposition (needs filled in before D/C Order can be placed): Home, Self Care Charges/Coding Visit Charges Inpatient E&M: 84516 Disch Hosp >30min
--- NOTE | 2025-07-26 14:51 | CASEMGMT ---
Patient has order for discharge. Patient will need oxygen at discharge, script received. ROSANA NULL in to discuss needs at discharge and recommendation for outpatient therapy. Patient agreeable and would like to complete at [facility] and would like [facility] to call patient to schedule. Patient had no further questions or concerns. ROSANA NULL updated hospitalist, script received for outpatient therapy. Referral to sent to [facility] with request to call patient to schedule. ROSANA NULL sent referral via [facility] to [facility] and arranged for tank to be delivered to patient's room. ROSANA NULL updated discharge plan.
[2025-07-26 15:04] VITALS: BP 114/54; PULSE 82; RESP 16; TEMP 36.8; O2SAT 92
--- NOTE | 2025-07-26 19:13 | CASEMGMT ---
Social work Received call from Gissell WAYNE on PCU requesting help due to [employer] indicating patient's insurance was out of network for O2. SW checked Careport documentation sent to [facility] by PRAVEEN. SW checked the prefix on patient's insurance card and [facility] shows as being in network. Collaborated with Johanna DOWD who called [facility]'s net application architect service. Received return call from Gissell WAYNE on PCU stating [employer] called PCU and would have papers for patient to sign in order to get O2 covered by insurance. Gissell WAYNE to discharge patient with O2 as originally planned. No further needs identified at this time. Capri Chong, WEAPONS SYSTEM INSTRUMENT MECHANIC, BORE MILL OPERATOR FOR PLASTIC
== END 2025-07-26 18:42 | disposition home or self-care (01) | DRG 291 ==
LOC: ED 09:31 → PCU 12:20
PROVIDERS: Admitting Provider Internal Medicine; Emergency Provider Emergency Medicine; PCP Family Medicine; Visit Provider Internal Medicine
DX: I11.0 Hypertensive heart disease with heart failure (principal); I50.33 Acute on chronic diastolic (congestive) heart failure; E87.1 Hypo-osmolality and hyponatremia; L03.115 Cellulitis of right lower limb; Z68.43 Body mass index [BMI] 50.0-59.9, adult; D63.8 Anemia in other chronic diseases classified elsewhere; E88.09 Other disorders of plasma-protein metabolism, not elsewhere classified; K74.60 Unspecified cirrhosis of liver; D69.59 Other secondary thrombocytopenia; E11.9 Type 2 diabetes mellitus without complications; E66.01 Morbid (severe) obesity due to excess calories; K21.9 Gastro-esophageal reflux disease without esophagitis; I87.303 Chronic venous hypertension (idiopathic) without complications of bilateral lower extremity; I87.8 Other specified disorders of veins; E78.5 Hyperlipidemia, unspecified; I89.0 Lymphedema, not elsewhere classified; G47.33 Obstructive sleep apnea (adult) (pediatric); E80.7 Disorder of bilirubin metabolism, unspecified; K59.09 Other constipation; Z79.899 Other long term (current) drug therapy; Z79.84 Long term (current) use of oral hypoglycemic drugs; Z99.89 Dependence on other enabling machines and devices; R74.02 Elevation of levels of lactic acid dehydrogenase [LDH]
CPT/HCPCS: 36415; 71275; 76705; 80053; 80061; 81001; 82248; 82274; 82607; 82728; 82746; 82962; 83036; 83540; 83550; 83605; 83735; 83880; 84100; 84443; 84484; 85025; 85027; 85045; 85610; 85730; 86850; 86900; 86901; 87040; 87077; 87086; 87088; 87631; 93005; 93306; 97116; 97161; 97166; 97530; 97802; 97803; 99284; Q9957; Q9967; A4216; C8929; J0696; J1938; J2405; J2916

== ENCOUNTER → 2025-08-02 | Outpatient (CLI) | payer BC, SELFPAY ==
[2025-08-02 17:37] LABS: Hematocrit 30.1 % (40-54); Hemoglobin 9.3 g/dL (13.0-16.5); Immature Granulocytes Count 0.030 X10^3/uL (0.0-0.0); Mean Corp Hgb Conc 30.9 g/dL (32-36); Mean Corpuscular Volume 85.8 fL (80-94); Mean Platelet Vol. 10.7 fl (6.2-12.0); NRBC Flagged by Analyzer 0 % (0-5); POSITIVE MORPHOLOGY YES; Platelet Count 132 K/mm3 (150-450); RBC Distribution Width CV 25.7 % (11.6-14.6); RBC Distribution Width SD 78.2 fl (35.1-43.9); Red Blood Count 3.51 M/mm3 (4.6-6.2); White Blood Count 6.0 K/mm3 (4.4-11.0)
[2025-08-02 17:57] LABS: Differential Indicated SCAN CRITERIA MET
[2025-08-02 18:14] LABS: Differential Comment SCANNED
[2025-08-02 18:16] LABS: Anisocytosis 2+; Polychromasia 1+
[2025-08-02 18:54] LABS: Vitamin B12 1591 pg/mL (180-914)
== END | disposition home or self-care (01) ==
LOC: MFPLAB 15:53
PROVIDERS: PCP Family Medicine; Visit Provider Family Medicine
DX: D64.9 Anemia, unspecified (principal)
CPT/HCPCS: 36415; 82607; 82668; 85025

== ENCOUNTER → 2025-08-13 | Outpatient (CLI) | payer BC, SELFPAY | END | disposition home or self-care (01) | LOC: MTLAB 11:30 | PROVIDERS: PCP Family Medicine; Referring Provider Internal Medicine Medical Oncology; Visit Provider Internal Medicine Medical Oncology | DX: D64.9 Anemia, unspecified (principal) | CPT/HCPCS: 82274 ==

== ENCOUNTER 2025-08-21 16:26 | Emergency (ER) | payer BC, SELFPAY ==
[2025-08-21] VITALS (7 sets, daily range): BP systolic 91–126; BP diastolic 44–63; PULSE 73–82; RESP 16–20; TEMP 36.2; O2SAT 95–99; BMI 43.5
--- NOTE | 2025-08-21 17:10 | CT_ITS ---
EXAM: CT Head Without Intravenous Contrast CLINICAL INDICATION: DIZZINESS TECHNIQUE: Axial computed tomography images of the head/brain without intravenous contrast. This CT exam was performed using one or more of the following dose reduction techniques: automated exposure control, adjustment of the mA and/or kV according to patient size, and/or use of iterative reconstruction technique. COMPARISON: No relevant prior studies available. FINDINGS: BRAIN AND EXTRA-AXIAL SPACES: No acute intracranial hemorrhage, midline shift or mass effect. If symptoms persist, further evaluation with MRI is recommended. No significant white matter disease. BONES/JOINTS: Unremarkable. No acute fracture. SOFT TISSUES: Unremarkable. SINUSES: Unremarkable as visualized. No acute sinusitis. MASTOID AIR CELLS: Unremarkable as visualized. No mastoid effusion. CT/Brain/Head without Contrast IMPRESSION: No acute intracranial hemorrhage, midline shift or mass effect. If symptoms per sist, further evaluation with MRI is recommended. Reading Location: [id number]
--- NOTE | 2025-08-21 17:12 | EX.ED.DYSGE1 ---
HPI History of Present Illness Chief Complaint: Dizziness Narrative Narrative: 45-year-old male past medical history of CHF, hypertension, diabetes presents with his mother because of dizziness/lightheadedness and feeling off balance since 11:00 this morning, approximately 6 hours ago. He then began having nausea and vomiting at 3 PM, approximately 2 hours ago. He vomited twice without any hematemesis, no diarrhea, no dysuria or hematuria, no fevers or chills, no exacerbating or alleviating factors. He and his mother relate history that he was hospitalized a few weeks ago and is supposed to follow-up with cardiology. They changed his diuretic from furosemide to 2 other ones which she is unsure of the name. His mother states that he seems confused today, and not quite himself. He denies any headache, no exacerbating or alleviating factors but may feel slightly off balance when he walks. [facility] Medical History Kidney stones Cirrhosis Non-smoker Irregular heart beat Congestive heart failure (CHF) Chronic idiopathic thrombocytopenia Hx of cirrhosis Anemia HTN (hypertension) Diabetes Acid reflux Rectal bleeding Hemorrhoids Home Medications ?Medication ?Instructions ?Recorded ?Last Taken ?Type metformin 1,000 mg tablet 1,000 mg PO BID diabetes 01/28/25 Unknown History sitagliptin phosphate 100 mg 100 mg PO QDAY diabetes 01/28/25 Unknown History tablet (Christophuvia) atorvastatin 20 mg tablet 20 mg PO DAILY cholesterol 07/21/25 Unknown History omeprazole 40 mg capsule,delayed 40 mg PO DAILY stomach 07/21/25 Unknown History release repaglinide 1 mg tablet 1 mg PO BID diabetes 07/21/25 Unknown History CPAP - Continuous Positive Airway 07/23/25 Unknown History Pressure([facility] INFORMATIONAL USE ONLY) bumetanide 2 mg tablet 2 mg PO BID #60 tabs 07/26/25 Unknown Rx nadolol 20 mg tablet 20 mg PO BID #60 tabs 07/26/25 Unknown Rx oxycodone 5 mg tablet 5 mg PO Q6H PRN PRN Pain Score 07/26/25 Unknown Rx 6-10 or Pre PT/OT 7 days #30 tabs potassium chloride 20 mEq 20 meq PO DAILY #30 tabs 07/26/25 Unknown Rx tablet,extended release(part/cryst) (Klor-Con M) spironolactone 25 mg tablet 25 mg PO DAILY #30 tabs 07/26/25 Unknown Rx ondansetron 4 mg disintegrating 4 mg PO Q8H PRN PRN Nausea #15 tabs 08/21/25 Unknown Rx tablet Allergy/AdvReac Type Severity Reaction Status Date / Time No Known Allergies Allergy Verified 08/19/25 14:53 Family History Other Diabetes Heart disease Surgical History H/O umbilical hernia repair [place] teeth extracted Social History household members: spouse housing: house Smoking Status: Never smoker alcohol intake: never substance use type: does not use ROS ROS ED ROS Narrative Review of systems positive for reported confusion, positive for lightheadedness/dizziness worse with walking. No fevers or chills, no headache. No shortness of breath or chest pain. Positive nausea and vomiting x 2. No diarrhea. No exacerbating or alleviating factors otherwise. EXAM Physical Exam Narrative Exam Narrative: Afebrile. Vital signs noted. Nontoxic-appearing. Cardiovascular examination regular rate and rhythm. Lungs clear to auscultation bilaterally. Abdomen is soft and nontender without guarding or rebound. Neurological examination nonfocal, nonlateralizing. Awake, alert, oriented to person, place, time, and current events. Bilateral symmetric pedal edema. Const Vital Signs: 08/21/25 16:27 08/21/25 17:25 08/21/25 17:33 Temperature 97.2 F L Temperature Source Temporal Pulse Rate 74 82 Pulse Rate [Lying] 77 Pulse Rate [Sitting (for 1 minute prior to obtaining)] 78 Pulse Rate [Standing (for 1 minute prior to obtaining)] 77 Respiratory Rate 16 18 Blood Pressure 124/63 H 126/58 H Blood Pressure [Lying] 118/55 L Blood Pressure [Sitting (for 1 minute prior to obtaining)] 126/58 H Blood Pressure [Standing (for 1 minute prior to obtaining)] 108/60 Blood Pressure Mean 83 80 Blood Pressure Mean [Lying] 76 Blood Pressure Mean [Sitting (for 1 minute prior to obtaining)] 80 Blood Pressure Mean [Standing (for 1 minute prior to obtaining)] 76 Pulse Ox 97 95 Oxygen Delivery Method Room Air Room Air 08/21/25 18:27 08/21/25 19:00 08/21/25 20:00 Temperature Temperature Source Pulse Rate 79 73 76 Pulse Rate [Lying] Pulse Rate [Sitting (for 1 minute prior to obtaining)] Pulse Rate [Standing (for 1 minute prior to obtaining)] Respiratory Rate 20 H 19 H 18 Blood Pressure 91/47 L 112/52 L 101/44 L Blood Pressure [Lying] Blood Pressure [Sitting (for 1 minute prior to obtaining)] Blood Pressure [Standing (for 1 minute prior to obtaining)] Blood Pressure Mean 61 72 63 Blood Pressure Mean [Lying] Blood Pressure Mean [Sitting (for 1 minute prior to obtaining)] Blood Pressure Mean [Standing (for 1 minute prior to obtaining)] Pulse Ox 98 99 99 Oxygen Delivery Method Room Air Room Air 08/21/25 20:46 Temperature 97.2 F L Temperature Source Pulse Rate 73 Pulse Rate [Lying] Pulse Rate [Sitting (for 1 minute prior to obtaining)] Pulse Rate [Standing (for 1 minute prior to obtaining)] Respiratory Rate 18 Blood Pressure 109/50 L Blood Pressure [Lying] Blood Pressure [Sitting (for 1 minute prior to obtaining)] Blood Pressure [Standing (for 1 minute prior to obtaining)] Blood Pressure Mean 69 Blood Pressure Mean [Lying] Blood Pressure Mean [Sitting (for 1 minute prior to obtaining)] Blood Pressure Mean [Standing (for 1 minute prior to obtaining)] Pulse Ox 98 Oxygen Delivery Method MDM MDM MDM Narrative Medical decision making narrative: Differential diagnosis includes but not limited to intravascular volume depletion versus dehydration versus other electrolyte abnormality. He may have benign positional vertigo as well. I have low suspicion for intracranial hemorrhage. CT imaging of the brain will be obtained as well as basic laboratory work. EKG was obtained and interpreted by myself independently as normal sinus rhythm at 77 bpm without ectopy or acute ST changes. No STEMI. I reviewed his laboratory work and he has normal white count of 6.3 with hemoglobin stable at 10.4 when compared to prior labs. Platelet count is pending but he has had chronic thrombocytopenia when compared to prior labs as well. Chloride slightly low at 96 with sodium normal at 136 and potassium normal 3.4, glucose 83. BNP 188. Chest x-ray interpreted by myself independently shows no consolidation or pneumonia. I do not feel antibiotics are indicated. No pneumothorax. He does have vascular congestion. I reviewed the radiology report which confirms my independent interpretation. Urinalysis shows no leukocytes or nitrites. Negative for infection on microanalysis. I do not feel antibiotics are indicated. He does have 5 ketones which may be very mild dehydration. Orthostatics are negative. BNP is 188. I do not feel that he is in pulmonary edema. Review of the CT of the brain shows no evidence of an acute process. No hemorrhage or mass. Upon repeat examination at approximately 2044, he states he feels mildly to moderately improved. I do not feel he is meeting any admission or observation criteria. I feel he can be discharged safely home with follow-up. I wrote him a prescription for Zofran 4 mg ODT's. He will follow-up with his primary care provider. Return instructions to the emergency department were reviewed. Disposition is discharged home in stable condition. History & Record Review Discussion w/independent historian: Patient and Family Additional record(s) reviewed:: Prior labs Lab Data Attestation: I reviewed the patient's lab results. Labs: Laboratory Results - last 24 hr 08/21/25 08/21/25 17:20 18:22 WBC 6.3 RBC 3.84 L Hgb 10.4 L Hct 32.6 L MCV 84.9 MCH 27.1 MCHC 31.9 L RDW Std Deviation 73.9 H RDW Coeff of Melina 23.9 H Plt Count TNP MPV TNP Immature Gran % (Auto) 0.300 Neut % (Auto) 57.4 Lymph % (Auto) 17.7 L Stearns % (Auto) 14.2 H Eos % (Auto) 8.8 H Baso % (Auto) 1.6 H Absolute Neuts (auto) 3.6 Absolute Lymphs (auto) 1.11 Nucleated RBC % 0 Differential Comment SCANNED Platelet Estimate SLT DEC Polychromasia 1+ Anisocytosis 2+ Sodium 136 Potassium 3.4 Chloride 96 L Carbon Dioxide 21.1 Anion Gap 20 H BUN 15 Creatinine 0.82 Estim Creat Clear Calc 160.45 Est GFR (MDRD) Non-Af 109 BUN/Creatinine Ratio 18.2 Glucose 83 Calcium 9.0 NT pro BNP II 188 Urine Color Yellow Urine Clarity Cloudy Urine pH 6.0 Ur Specific [place] 1.020 Urine Protein 15 H Urine Glucose (UA) Normal Urine Ketones 5 H Urine Occult Blood 25 H Urine Nitrite Negative Urine Bilirubin Negative Urine Urobilinogen 1 H Ur Leukocyte Esterase Negative Urine RBC 0-5 SEEN Urine WBC 0-5 SEEN Ur Squamous Epith Cells 0-5 SEEN Urine Bacteria 0 SEEN Urine Mucus 0 SEEN Radiography Chest X-Ray - ED: 1 View, Read by ED Physician, Read by Radiologist and No Acute Disease Diagnostic Testing: Clinical Impression(s) from Imaging Studies Brain CT 08/21/25 17:10 IMPRESSION: No acute intracranial hemorrhage, midline shift or mass effect. If symptoms persist, further evaluation with MRI is recommended. Reading Location: [facility] Chest X-Ray 08/21/25 18:00 IMPRESSION: Cardiomegaly with mild congestion. Reading Location: [facility] Discharge Plan Triage Chief Complaint: Dizziness Other Complaint: Nausea/Vomiting ED Provider: Vincenzo Chavarria Dx/Rx/DC Orders Clinical Impression: Nausea and vomiting, Malaise, Lightheadedness, Confusion Instructions: ED Confusion, ED Near-Fainting, Uncertain Cause, ED Vomiting (Adult) Prescriptions: New ondansetron 4 mg tablet,disintegrating 4 mg PO Q8H PRN PRN (Reason: Nausea) Qty: 15 0RF No Action metformin 1,000 mg tablet 1,000 mg PO BID Januvia 100 mg tablet 100 mg PO QDAY atorvastatin 20 mg tablet 20 mg PO DAILY omeprazole 40 mg capsule,delayed release(DR/EC) 40 mg PO DAILY repaglinide 1 mg tablet 1 mg PO BID (DME) CPAP - Continuous Positive Airway Pressure([facility] INFORMATIONAL USE ONLY) Device See Rx Instructions .Route Rx Instructions: As directed nadolol 20 mg Tablet 20 mg PO BID Qty: 60 0RF oxycodone 5 mg Tablet 5 mg PO Q6H PRN PRN (Reason: Pain Score 6-10 or Pre PT/OT) 7 Days Qty: 30 0RF spironolactone 25 mg Tablet 25 mg PO DAILY Qty: 30 0RF bumetanide 2 mg tablet 2 mg PO BID Qty: 60 0RF potassium chloride [Klor-Con M20] 20 mEq tablet,ER particles/crystals 20 meq PO DAILY Qty: 30 0RF Primary Care Provider: Alis Mace Referrals: Nakita,Chalon, MD [Primary Care Provider, Family Practice] - 3-5 Days if not improving Activity Restrictions/Additional Instructions: Follow-up with your primary care provider in the next 3 to 5 days if not improving. Return with new or worsening symptoms. Clear liquid diet, advance as tolerated. Print Language: Lebanese Disposition Disposition: Home, Self Care
[2025-08-21 17:36] LABS: Hematocrit 32.6 % (40-54); Hemoglobin 10.4 g/dL (13.0-16.5); Immature Granulocytes Count 0.020 X10^3/uL (0.0-0.0); Mean Corp Hgb Conc 31.9 g/dL (32-36); Mean Corpuscular Volume 84.9 fL (80-94); NRBC Flagged by Analyzer 0 % (0-5); POSITIVE MORPHOLOGY YES; RBC Distribution Width CV 23.9 % (11.6-14.6); RBC Distribution Width SD 73.9 fl (35.1-43.9); Red Blood Count 3.84 M/mm3 (4.6-6.2); White Blood Count 6.3 K/mm3 (4.4-11.0)
[2025-08-21 17:39] LABS: Differential Indicated SCAN CRITERIA MET
--- NOTE | 2025-08-21 18:00 | RAD_ITS ---
EXAM: XR Chest, 1 View CLINICAL INDICATION: CONGESTIVE HEART FAILURE TECHNIQUE: Frontal view of the chest. COMPARISON: No relevant prior studies available. FINDINGS: LUNGS AND PLEURAL SPACES: See below. HEART: Cardiomegaly with mild congestion. MEDIASTINUM: Unremarkable. Normal mediastinal contour. BONES/JOINTS: Unremarkable. No acute fracture. RAD/Chest 1 View (Portable) IMPRESSION: Cardiomegaly with mild congestion. Reading Location: [id number]
[2025-08-21 18:28] LABS: Mucous, Urine 0 SEEN /hpf (<or=2+)
[2025-08-21 18:31] LABS: Color, Urine Yellow (Yellow); Glucose, Dipstick Normal (Normal); Ketone-Dipstick 5 mg/dl (Negative); Leukocyte Esterase-Dipstick Negative /ul (Negative); Nitrite-Dipstick Negative (Negative); Occult Blood-Urine 25 /ul (Negative); Protein-Dipstick 15 mg/dl (Negative); Specific Gravity, Urine 1.020 (1.002-1.030); Urine Bilirubin Dipstick Negative (Negative)
[2025-08-21 18:33] LABS: Anion Gap 20 (5-15); BUN 15 mg/dL (4-19); BUN/Creat Ratio 18.2 RATIO (10-20); Calcium,Total 9.0 mg/dL (7.6-11.0); Carbon Dioxide 21.1 mmol/L (21.0-32.0); Chloride 96 mmol/L (98-108); Estimated Creatinine Clearance 160.45 ml/min (50-250); Glucose 83 mg/dL (70-99); Potassium 3.4 mmol/L (3.3-5.1); Pro- Brain NATRIURETIC PEPTIDE 188 pg/mL (<=450)
[2025-08-21 19:42] LABS: Red Blood Cells-Urine 0-5 SEEN /hpf (0-5); Squamous Epithelial Cells - UA 0-5 SEEN /hpf (0-5)
[2025-08-21 19:54] LABS: Anisocytosis 2+; Differential Comment SCANNED
[2025-08-21 19:55] LABS: Polychromasia 1+
== END 2025-08-21 21:04 | disposition home or self-care (01) ==
PROVIDERS: Emergency Provider Emergency Medicine; PCP Family Medicine; Visit Provider Emergency Medicine
DX: R11.2 Nausea with vomiting, unspecified (principal); I11.0 Hypertensive heart disease with heart failure; I50.9 Heart failure, unspecified; E11.9 Type 2 diabetes mellitus without complications; R41.0 Disorientation, unspecified; R53.81 Other malaise; R42 Dizziness and giddiness
CPT/HCPCS: 70450; 71045; 80048; 81001; 83880; 85025; 93005; 99285; A4216

== ENCOUNTER 2025-09-16 14:00 | Outpatient (RCR) | payer BC, SELFPAY ==
--- NOTE | 2025-08-13 13:12 | HP.PTEVAL ---
Patient's Visit Information Visit Information Visit Information: LEON RIDER is a 45 year old M referred to Physical Therapy by Dr. Myriam Aguilar DO with a diagnosis of weakness. Date of Evaluation: 08/13/25 Physical Therapist: Carlos Bowden, DPT, OCS, CSCS Visit Plan Frequency: 3x /Week Duration: 4-6 Weeks Plan: 3x/week for 4-6 weeks for IE HEP laq and ap throughout day, walk 5-10 min 2x/day at [facility] to increase activity. Safety first. treat with LE adn core strength and activity increased walking and steps monitor SpO2 as needed. progress to HEP. Subjective Subjective: Recently in hospital with hear failure and R leg cellulitis. Was SOB for a long time and chest pain. Got out of hospital a weeek later and been home for the last 2 weeks. No home PT. Pain is in r LE where ceullitis was. Needs to get stronger. Referred by hospitalist. Has oxygen now and had it at times prior. Walking is woprse than prior to admission as he was walking fine, just SOB. No falls, Feels unsteady now . No spinning. No numbness in LE. Lives with and animals, dresses self, bathroom I, showering himself. Spends day sitting watching TV, Free time is pretty normal. Avoids helping out with chickens, , Getting around poorly limits him. 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 Pain R LE: Pain Intensity (Out of 10): 2 Pain Intensity Range: 0 and 3 Comment: better with legs elevated. Objective Objective: 91 spO2 and 89 HR after FGA on 2 l/min, 92/88 after 30 seec sit to stand. 14 TUG Walks slowly ambling holding Oxygen tankl with wide APOLINAR and feet pointed out but I, fatigues easy. SOB after 200 feet back to room slightly. Chair and bed trasnfers are I. weakneess noted in core. Steps require rail and can do either leg. LE AROM wFL. Tightness obvious in HS B at -40 90/90 test. reflexes 2/3 patella dna chilles B. Sensation LE WNL to gross lgiht touch B. strength in hips 3+ abd and eext, and flexion, core weakness with testing. knee flexion adn ext 4- B. ankles 4 B. Balance/Special Test Scores Functional Gait Assessment Score: 24 % Disability: 20.0000 Lower Extremity Functional Score: 25 TUG Test Time Seconds: 14 30 Second Chair Rise Test Seconds: 5 Goals Goal 1:: I appropriate HEP to limit future problems with sedentarism. Goal Time Frame: 4-6 Weeks Goal 2:: 10 on 30 SSTS and 11 or better on TUG to show improved mobility for daily tasks. Goal Time Frame: 4-6 Weeks Goal 3:: Patient feel 75% back to normal to aid in return to funcitonal work. Goal Time Frame: 4-6 Weeks Goal 4:: FGA score 28/30 for safety with ambulation. Goal Time Frame: 4-6 Weeks Goal 5:: 45 LEEFS to show improved mobility adn funciton Goal Time Frame: 4-6 Weeks Rehabilitation Potential Physical Therapy Diagnosis: weeakness, sedentary after recent hospitalization ffecting mobility Rehabilitation Potential: Good Anticipated Interventions Patient/Client Instruction: Educate patient on: Condition and Plan of Care For the Purpose of:: To improve muscle performance and motor function, To increase tolerance to activity/condition/position and To improve gait and locomotor functions Therapeutic Exercise to Include: Strength training, Endurance training, Postural training, Flexibilty training, Gait and locomotor training, Passive ROM and Active ROM For the Purpose of:: To improve nutrient delivery to tissue, To improve muscle performance and motor function, To increase tolerance to activity/condition/position, To improve ability of physical actions for home/community/work/leisure and To improve gait and locomotor functions Text: Thank you for the opportunity to evaluate your patient. For Medicare and Medicare HMO plans, please review the plan of care and approve it. It will need to be FAXED BACK to us at [phone] for Medicare purposes. For Medicare only, by signing this I certify the plan of care. Please let me know if there are questions or concerns regarding this plan of care. Physician Signature: Date:
--- NOTE | 2025-09-16 14:55 | HP.PTDCSUM ---
Discharge Summary D/C summary: It has been my pleasure to treat LEON RIDER referred by Dr. Myriam Aguilar DO, with the diagnosis of weakness for a total of 13 visit(s). Discharge Date: 09/16/25 Please see the following information for a summary of their discharge status. Subjective Subjective: Getting better slowly but surely. No more pain in leg. Still tired with oxygeen carrying just in case. Spot on leg is healing. it was an abscess and infecteed adn is on antibiotics. Will f/u with doctor for that. 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 Goals Goal 1:: I appropriate HEP to limit future problems with sedentarism. Goal Progress: Goal Met Goal 2:: 10 on 30 SSTS and 11 or better on TUG to show improved mobility for daily tasks. Goal Progress: part met Goal 3:: Patient feel 75% back to normal to aid in return to funcitonal work. Goal Progress: met Goal 4:: FGA score 28/30 for safety with ambulation. Goal Progress: Progressing Goal 5:: 45 LEEFS to show improved mobility adn funciton Goal Progress: Goal Met Plan Plan: d/c to HEP D/C Information d/c sentence: If there are questions or concerns regarding this patient's physical therapy, please feel free to call me at [phone]. Thank you for the referral of this patient. Sincerely, Carlos Bowden, DPT, OCS, CSCS Balance/Gait/Functional tests Balance/Special Test Scores Functional Gait Assessment Score: 27 % Disability: 10.0000 Lower Extremity Functional Score: 74 TUG Test Time Seconds: 8 Tug Test: <20 sec.=mostly independent 30 Second Chair Rise Test Seconds: 8 Improvement % Improvement: 90
== END 2025-09-16 19:00 | disposition home or self-care (01) ==
LOC: PT 14:00
PROVIDERS: PCP Family Medicine; Referring Provider Internal Medicine; Visit Provider Internal Medicine
DX: L03.115 Cellulitis of right lower limb (principal); I50.9 Heart failure, unspecified; R53.1 Weakness
CPT/HCPCS: 97110; 97162; 97164

== ENCOUNTER → 2025-10-03 | Outpatient (CLI) | payer OTHER, SELFPAY ==
[2025-10-03 10:45] LABS: Hematocrit 31.0 % (40-54); Hemoglobin 10.0 g/dL (13.0-16.5); Immature Granulocytes Count 0.010 X10^3/uL (0.0-0.0); Mean Corp Hgb Conc 32.3 g/dL (32-36); Mean Corpuscular Volume 95.7 fL (80-94); Mean Platelet Vol. 10.2 fl (6.2-12.0); NRBC Flagged by Analyzer 0 % (0-5); POSITIVE COUNT YES; POSITIVE MORPHOLOGY YES; Platelet Count 74 K/mm3 (150-450); RBC Distribution Width CV 25.4 % (11.6-14.6); RBC Distribution Width SD 87.1 fl (35.1-43.9); Red Blood Count 3.24 M/mm3 (4.6-6.2); White Blood Count 4.8 K/mm3 (4.4-11.0)
[2025-10-03 10:48] LABS: Prothrombin Time (Protime)PT. 18.5 SECONDS (11.7-14.9)
[2025-10-03 11:11] LABS: AST(SGOT) 60 U/L (<=37); Alanine Aminotransfer ALT/SGPT 40 U/L (<=46); Albumin, Serum 2.7 g/dL (3.5-5.0); Alkaline Phosphatase 147 U/L (40-129); Anion Gap 14 (5-15); BUN 11 mg/dL (4-19); BUN/Creat Ratio 14.8 RATIO (10-20); Calcium,Total 8.8 mg/dL (7.6-11.0); Carbon Dioxide 23.9 mmol/L (21.0-32.0); Chloride 98 mmol/L (98-108); Globulin 4.7 g/dL (2.2-4.2); Glucose 147 mg/dL (70-99); Potassium 3.2 mmol/L (3.3-5.1)
[2025-10-03 11:38] LABS: Anisocytosis 2+; Differential Comment SCANNED; Differential Indicated SCAN CRITERIA MET; Macrocytosis 1+; Microcytosis 1+
[2025-10-03 11:39] LABS: Polychromasia 1+
== END | disposition home or self-care (01) ==
LOC: LAB 10:01
PROVIDERS: PCP Family Medicine; Referring Provider Student in an Organized Health Care Education/Training Program; Visit Provider Student in an Organized Health Care Education/Training Program
DX: K74.60 Unspecified cirrhosis of liver (principal)
CPT/HCPCS: 36415; 80053; 82105; 85025; 85610

== ENCOUNTER 2025-10-09 17:40 | Emergency (ER) | payer OTHER, SELFPAY ==
[2025-10-09] VITALS (9 sets, daily range): BP systolic 108–131; BP diastolic 53–64; PULSE 65–84; RESP 16–23; TEMP 36.9; O2SAT 96–100; BMI 44.9; BMI 44.6
--- NOTE | 2025-10-09 18:01 | CT_ITS ---
PROCEDURE: STROKE BRAIN/HEAD WITHOUT CONT 10/09/2025 REASON FOR EXAM: NEURO DEFICIT, ACUTE, STROKE SUSPECTED TECHNIQUE: Procedure Code: CTBR.ST Modality: CT Procedure: STROKE BRAIN/HEAD WITHOUT CONT Coronal and Sagittal reconstruction series were provided. One or more dose reduction techniques were used (e.g., Automated exposure control, adjustment of the mA and/or kV according to patient size, use of iterative reconstruction technique. RADIATION DOSE SUMMARY: DLP: 1747 mGycm COMPARISON: None FINDINGS: There is no acute infarct, intracranial hemorrhage, or mass effect. There is no hydrocephalus or significant midline shift. No acute, depressed calvarial fractures. No large scalp hematomas. The paranasal sinuses are clear. CT/STROKE Brain/Head without Cont IMPRESSION: No acute, large territorial infarction. Stroke Alert: Negative The critical findings in the findings and impression above were relayed directl y by me by telephone to Jamel Mccartney on 10/09/2025 at 7:06 pm with readback verification. Reading Location: [id number]
--- NOTE | 2025-10-09 18:01 | EKG12_ITS ---
Test Reason : neuro Blood Pressure : */* mmHG Vent. Rate : 78 BPM Atrial Rate : 78 BPM P-R Int : 184 ms QRS Dur : 88 ms QT Int : 498 ms P-R-T Axes : 30 5 34 degrees QTcB Int : 567 ms Critical Test Result: Long QTc Normal sinus rhythm Prolonged QT Abnormal ECG Confirmed by ALICIA JUAREZ ([id number]), editor & co founder JACQUELYN ANDRADE ([id number]) on 10/14/2025 6:30:18 AM Referred By: Confirmed By: ALICIA JUAREZ
--- NOTE | 2025-10-09 18:01 | RAD_ITS ---
PROCEDURE: CHEST PA AND LATERAL 10/09/2025 REASON FOR EXAM: CHILLS TECHNIQUE: Procedure Code: RADCXR Modality: DX Procedure: CHEST PA AND LATERAL COMPARISON: 08/21/2025 FINDINGS: Hardware: None. Heart: The heart size is normal. Mediastinum: The mediastinal contour is unremarkable. Lungs: The lungs are clear. No pneumothorax or pleural effusion. Bones: The bones are unremarkable. RAD/Chest PA and Lateral IMPRESSION: NO ACUTE FINDINGS. Reading [facility]
--- NOTE | 2025-10-09 18:02 | CT_ITS ---
PROCEDURE: STROKE CTA HEAD AND NECK W/CON 10/09/2025 REASON FOR EXAM: NEURO DEFICIT, ACUTE, STROKE SUSPECTED TECHNIQUE: Procedure Code: CTCTA.ST.HN Modality: CT Procedure: STROKE CTA HEAD AND NECK W/CON Multiplanar Sagittal and Coronal images were obtained. CONTRAST: 100 mL of Isovue 370 One or more dose reduction techniques were used (e.g., Automated exposure control, adjustment of the mA and/or kV according to patient size, use of iterative reconstruction technique). RADIATION DOSE SUMMARY: DLP: 1748 mGycm COMPARISON: None FINDINGS: The aortic arch demonstrates a type I configuration. The ostia of the great vessels are patent. There is conventional branching. The right CCA is patent. There is no significant stenosis of the right carotid bifurcation by NASCET criteria. The cervical right ICA is patent. The right MCA and right PITA appear patent. There is no large vessel occlusion. The left CCA is patent. There is no significant stenoses at the left carotid bifurcation by NASCET criteria. The cervical left ICA is patent. The left MCA and left PITA appear patent. There is no large vessel occlusion. The right vertebral artery arises from the right subclavian artery. The left vertebral artery arises from the left subclavian artery. Both vertebral arteries are patent. Both vertebral arteries join to form the patent basilar artery. Both posterior cerebral arteries arise from the tip of the basilar. Both proximal DEPUTY SHERIFF segments are patent. There is no large vessel occlusion. There is no enhancing intracranial mass. Shotty cervical lymph nodes are identified. The thyroid gland is heterogeneous. The lung apices demonstrate no pneumothorax. Question avulsion fracture at the anterior superior endplate of C5 of indeterminate acuity. CT/STROKE CTA Head AND Neck W/Con IMPRESSION: No acute large vessel occlusion or high-grade stenosis. Question avulsion fracture at the anterior superior endplate of C5 of indetermi nancy acuity. The critical findings in the findings and impression above were relayed directl y by me by telephone to Jamel Mccartney on 10/09/2025 at 7:09pm with readback verification. Reading Location: [facility]
--- OUTSIDE RECORDS SUMMARY | 2025-10-09 18:02 | XMS RPT_ITS | CCD ---
Author Organization [facility] Care Team Providers Care 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 Name Role Phone Lala VILLALOBOS Referring Unavailable Lala VILLALOBOS Attending Unavailable ZACK VIGIL Primary Care Unavailable Zack Vigil MD Primary Care Provider Lala VILLALOBOS Attending Unavailable Lala VILLALOBOS JNirav Admitting Unavailable ZACK VIGIL Primary Care Unavailable Unavailable Primary Care Provider UnavailPAUL Blanton Attending Unavailab le ZACK VIGIL Primary Care Unavailable Zack Vigil MD Primary Care Provider Zack Vigil MD Primary Care Provider [phone] Zack Vigil MD Primary Care Provider THOM ONEILL Referring Unavailable ZACK VIGIL Primary Care Unavailable TAD [id number], TAD OCHOA Attending Un available TAD [id number], TAD OCHOA Referring Un available ZACK VIGIL Primary Care Unavailable VINCENT MOSES Attending Unavailable GAJONAS MCGEE Referring Unavailable SHOAPSZACK Primary Care Unavailable Zack Vigil MD Primary Care Provider JOCELYNE TRACEY Attending Unavailable ZACK VIGIL Primary Care Unavailable CARLOS JIMÉNEZ Referring Unavailable BISHOP LA Referring Unavailable SHOZACK HOWE Primary Care Unavailable BERNABE DOOLEY Attending Unavailable SHOZACK HOWE Primary Care Unavailable Zack Vigil MD Primary Care Provider Roland Chavez Unavailable Thom Oneill MD Unavailable SHOSHYAM, ZACK Attending Unavailable SHOAPS, ZACK Attending Unavailable SHOAPS, ZACK Attending Unavailable HARMEYER, GOMEZ Attending Unavailable HARMEYER, GOMEZ Referring Unavailable SHOAPS, ZACK Attending Unavailable SHOAPS, ZACK Referring Unavailable Satkowiak PA-C, Fiona Unavailable Unavaila ble Roger CARPIO, Alis Primary Care Provider Roger CARPIO, Alis Referring Provider Demetris CARPIO, Dr. Melo Attending Provider Roger CARPIO, Ails Attending Provider Roger CARPIO, Alis Primary Care Provider Roger CARPIO, Alis Referring Provider McMorrow OPTICAL ELEMENT COATER-C, Yusef Attending Provider McMorrow OPTICAL ELEMENT COATER-C, Yusef Referring Provider Dr. Denice Leal DO Emergency Provider [phone] Kenneth CARPIO, Dr. Mahmood Admit Provider Kenneth CARPIO, Dr. Mahmood Attending Provider Kenneth CARPIO, Dr. Mahmood Other Provider Dr. Myriam Aguilar DO Attending Provider Kofi CARPIO, Dr. Turk Attending Provider Kenneth CARPIO, Dr. Mahmood Attending Provider Dr. Myriam Aguilar DO Other Provider Roger CARPIO, Alis Primary Care Physician Alis Duran MD Attending Physician McMorrow OPTICAL ELEMENT COATER-C, Yusef Attending Physician Marj CARPIO, Dr. Kalia Ness Attending Physician Dr. Denice Leal DO Emergency Department Physi kallie Kenneth CARPIO, Dr. Mahmood Admitting Physician Kenneth CARPIO, Dr. Mahmood Nurse Practitioner Jeff ROBERT, Dr. Miguel Attending Physician Kofi CARPIO, Dr. Turk Attending Physician Kenneth CARPIO, Dr. Mahmood Attending Physician Jeff ROBERT, Dr. Miguel Nurse Practitioner Cari Daley Attending Physician Unavailable Shazia CARPIO, Dr. Traore Attending Physician Shazia CARPIO, Dr. Traore Referring Provider Jeff ROBERT, Dr. Miguel Referring Provider Jeff ROBERT, Dr. Miguel Referring Provider Deon CARPIO, Vincenzo Emergency Department Physician Kenneth, Timoteo Admitting Unavailable Kenneth, Timoteo Attending Unavailable Kenneth, Timoteo Consulting Unavailable Roger, Chalon Primary Care Unavailable Cari Daley Attending Unavailable Roger, Chalon Primary Care Unavailable McMorrow OPTICAL ELEMENT COATER, Yusef Referring Unavailable McMorrow OPTICAL ELEMENT COATER, Yusef Attending Unavailable Roger, Chalon Primary Care Unavailable Myriam Aguilar Attending Unavailable Myriam Aguilar Consulting Unavailable Rosalee Kirby Attending Unavailable Roger, Chalon Primary Care Unavailable Myriam Aguilar Referring Unavailable Myriam Aguilar Attending Unavailable Roger, Chalon Primary Care Unavailable Roger, Chalon Primary Care Unavailable Roger, Chalon Attending Unavailable GloriaodicVincenzo ness Attending Unavailable Roger, Chalon Primary Care Unavailable Roger, Chalon Referring Unavailable PraLeón ray Attending Unavailable Roger, Chalon Primary Care Unavailable Myriam Aguilar Attending Unavailable Roger, Chalon Primary Care Unavailable Kenneth, Timoteo Consulting Unavailable Kenneth, Timoteo Admitting Unavailable PraLeón ray Attending Unavailable Roger, Chalon Primary Care Unavailable PraLeón ray Referring Unavailable PraLeón ray Referring Unavailable PraLeón ray Attending Unavailable Roger, Chalon Primary Care Unavailable Roger, Chalon Referring Unavailable Roger, Svetlanaon Attending Unavailable Roger, Chalon Primary Care Unavailable Roger, Chalon Referring Unavailable Praflor, León Attending Unavailable Roger, Chalon Primary Care Unavailable Roger, Chalon Referring Unavailable Jocelyne Henley Attending Unavailable Roger, Chalon Primary Care Unavailable Roger, Chalon Referring Unavailable Lorie Willson Attending Unavailable Roger, Chalon Primary Care Unavailable Allergies Allergy Classification Reported Allergen(s) Allergy Type Date of Onset Reaction(s) Facility (2 sources) Spironolactone; Translations: [SPIRONOLACTONE] Drug Allergy 10-14-2023 [facility] Primary Care Physicians Medications Current Medications [...] each day. 30 each 5 04/14/2022 Active atorvastatin 20 mg oral tablet (8 sources) HMG-CoA Reductase Inhibitor Start: 07-21-2025 take 1 tablet by mouth once daily bumetanide 2 mg oral tablet (6 sources) Loop Diuretic Start: 07-26-2025 take 1 tablet by mouth twice daily Cpap - Continuous Positive Airway Pressure([facility] Informational Use Only) device (7 sources) Start: 07-23-2025 Cpap - Continu ous Positive Airway Pressure([facility] Informational Use Only) device Active 0 .Route July 23, 2025 12:00am saúl As directed Start: 07-23-2025 Cpap - Continu ous Positive Airway Pressure([facility] Informational Use Only) device Active 0 .ROUTE July 23, 2025 12:00am saúl As directed diclofenac sodium 75 mg delayed release oral tablet (1 source) Nonsteroidal Anti-inflammatory Drug Start: 10-12-2023 take 1 tablet by mouth twice daily diclofenac sodium 75 mg tablet,delayed release take 1 tablet by oral route 2 times every day 75 MG - Active docusate sodium 100 mg oral capsule (1 source) Start: 04-22-2021 End: 04-29-2021 take 1 capsule by mouth twice daily docusate sodium (COLACE) 100 MG capsule Take 1 (one) capsule (100 mg total) by mouth 2 (two) times a day Stool softener Can get [id number] for 7 days . 14 capsule 0 [...] EVERY DAY FOR 90 DAYS - Active hydrOXYzine hydrochloride 25 mg oral tablet (9 sources) Antihistamine Start: 04-14-2022 End: 05-14-2022 take 1 tablet by mouth twice daily for anxiety hydrOXYzine HCL (ATARAX) 25 mg tablet Take 1 tablet (25 mg total) by mouth 2 (two) times a day if needed for anxiety. 30 each 0 04/14/2022 Active metFORMIN hydrochloride 1000 mg oral tablet (20 sources) Biguanide Start: 01-28-2025 take 1 tablet by mouth twice daily Start: 04-16-2022 End: 10-08-2024 take 1 tablet by mouth at mealtime metFORMIN (Glucophage) 1000 MG tablet Indications: Type 2 diabetes mellitus without complication, without long-term current use of insulin (CMS/HCC) (HCC) Take 1 tablet by mouth in the [...] tablet by mouth daily . 0 Active nadolol 20 mg oral tablet (6 sources) beta-Adrenergic Apolinar Start: 07-26-20 take 1 tablet by mouth twice daily omeprazole 40 mg delayed release oral capsule (18 sources) Proton Pump Inhibitor Start: 07-21-20 take 1 capsule by mouth once daily Start: 01-18-2016 take 1 capsule by mo [facility] once daily 30 minutes before breakfast omeprazole 40 mg capsule,delayed release TAKE 1 CAPSULE BY MOUTH ONCE A DAY 30 MINUTES BEFORE BREAKFAST - Active ondansetron 4 mg disintegrating oral tablet (2 sources) Serotonin-3 Receptor Antagonist Start: 08-21-2025 take 1 tablet by mouth every eight hours as needed for nausea Start: 04-22-2021 End: 04-22-2021 4 mg, Intravenous, Every 15 min PRN, nausea, vomiting, Starting on Tue04/22/21 at 0744, For 2 doses, PACU (only) Do not give more than 2 doses. Administer first as needed for nausea/vomiting, or as directed by anesthesia 24 hr oxybutynin chloride 5 mg extended release oral tablet (1 source) Cholinergic Muscarinic Antagonist Start: 11-22-2023 End: 11-21-2024 take 1 tablet by mouth once daily oxybutynin XL (Ditropan XL) 5 MG 24 hr tablet Indications: Overactive bladder Take 1 tablet by mouth 1 time each day. Do not crush, chew, or split. 30 tablet 11 11/22/2023 11/21/2024 Active oxyCODONE hydrochloride 5 mg oral tablet (8 sources) Opioid Agonist Start: 07-26-2025 take 1 tablet by mouth every six hours as needed for pain Start: 04-22-2021 End: 04-29-2021 take 1 tablet by mouth every six hours as needed for pain oxyCODONE (ROXICODONE) 5 MG immediate release tablet Indications: Post-op pain Take 1 (one) tablet (5 mg total) by mouth every 6 (six) hours as needed (Post-operative pain) 7 days . 15 tablet 0 04/22/2021 04/29/2021 Active Start: 04-22-2021 End: 04-22-2021 oxyCODONE (ROXICODONE) 10 mg /0.5 mL concentrated solution 5 mg microencapsulated potassium chloride 20 meq extended release oral tablet (20 sources) Start: 07-26-2025 Start: 01-28-2025 End: 07-21-2025 take 1 tablet by mouth once daily Potassium Chloride 20 mEq tablet extended release Discontinued 20 meq PO daily January 28, 2025 12:00am July 21, 2025 11:49am Start: 07-02-2023 End: 10-13-2024 take 1 tablet [...] 25 mg by mouth if needed. Active repaglinide 1 mg oral tablet (8 sources) Glinide Start: 07-21-2025 take 1 tablet by mouth twice daily sertraline 50 mg oral tablet (6 sources) Serotonin Reuptake Inhibitor Start: 07-30-2023 sertraline 50 mg tablet - Active SITagliptin 100 mg oral tablet (20 sources) Dipeptidyl Peptidase 4 Inhibitor Start: 01-28-2025 take 1 tablet by mouth once daily Start: 08-24-2023 End: 12-08-2024 take 1 tablet by mouth once daily SITagliptin (Januvia) 100 MG tablet Indications: Type 2 diabetes mellitus without complication, without long-term current use of insulin (CMS/HCC) ([facility]) Take 1 tablet by mouth 1 time [...] MORNING AND BEDTIME TOOTH PASTE - Active spironolactone 25 mg oral tablet (6 sources) Aldosterone Antagonist Start: 07-26-2025 take 1 tablet by mouth once daily Completed/Discontinued Medications Medication Drug Class(es) Dates Sig (Normalized) Sig (Original) acetaminophen 325 mg oral tablet (2 sources) Start: 04-13-2022 End: 04-14-2022 take 1 tablet by mouth every six hours as needed 650 mg, oral, Every 6 hours PRN, mild pain, Starting on Tue04/13/22 at 2120 acetaminophen (T ylenol 8 Hour) 650 MG ER tablet Take 2 tablets by mouth if needed. Active [id number] 200 actuat albuterol 0.09 mg/actuat metered dose [...] source) Opioid Agonist Start: 01-14-2016 End: 04-17-2021 CAROHEN C-NR 10-100 mg/5 mL syrup Diltiazem 10mg/Lidocaine 50mg Suppository 30 supp suppository (9 sources) Start: 01-28-2025 End: 07-21-2025 Diltiazem 10mg/Lidocaine 50mg Suppository 30 supp suppository Discontinued 0 RC .BID 13 12January 28, 2025 12:00am July 21, 2025 1:48pm 10 mg diltiazem/ lidocaine 50% suppository rectally BID; diltiazem HCl (bulk) powder 300 mg; lidocaine (bulk) powder 1500 mg; Per 30 supp Start: 01-28-2025 Diltiazem 10mg /Lidocaine 50mg Suppository 30 supp suppository Active 0 RC .BID 13 12January 28, 2025 12:00am 10 mg diltiazem/ lidocaine 50% suppository rectally BID; diltiazem HCl (bulk) powder 300 mg; lidocaine (bulk) powder 1500 mg; Per 30 supp Start: 01-28-2025 Diltiazem 10mg /Lidocaine 50mg Suppository 30 supp suppository Active 0 RC .BID 30 January 28, 2025 12:00am 10 mg diltiazem/ lidocaine 50% suppository rectally BID; diltiazem HCl (bulk) powder 300 mg; lidocaine (bulk) powder 1500 mg; Per 30 supp famotidine 40 mg oral tablet (1 source) Histamine-2 Receptor Antagonist Start: 03-18-2016 End: 04-17-2021 famotidine (PEPCID) 40 MG tablet 1 ml fentaNYL 0.05 mg/ml injection (1 source) Opioid Agonist Start: 04-22-2021 End: 04-22-2021 25 mcg, Intravenous, Every 5 min PRN, Pain, Starting on Tue04/22/21 at 0744, For 4 doses, PACU (only) [] Do not give more than 100 mcg while in PACU. furosemide 40 mg oral tablet (20 sources) Loop Diuretic Start: 01-28-2025 End: 07-26-2025 take 1 tablet by mouth once daily Furosemide 40 mg tablet Discontinued 40 mg PO daily January 28, 2025 12:00am July 26, 2025 2:39pm diuretic Start: 07-02-2023 End: 10-08-2024 take 1 tablet [...] daily with lunch . 0 03/17/2016 Active homatropine methylbromide 0.3 mg/ml / HYDROcodone bitartrate 1 mg/ml oral solution (1 source) Opioid Agonist, Cholinergic Muscarinic Agonist Start: 12-19-2015 End: 04-17-2021 HYDROcodone-homatropine (HYCODAN) 5-1.5 mg/5 mL syrup 1 ml [...] ineffective at maximum dose or not ordered. hydroCHLOROthiazide 25 mg / triamterene 37.5 mg oral capsule (18 sources) Potassium-sparin g Diuretic, Thiazide Diuretic Start: 07-21-2025 End: 07-26-2025 Triamterene-Hydrochlorothiaz id 37.5-25 mg capsule Discontinued 1 NMA PO DAILY July 21, 2025 12:00am July 26, 2025 2:41pm diuretic/bp Start: 10-02-2023 triamterene 37 .5 mg-hydrochlorothiazide 25 mg tablet - Active Start: 10-02-2023 take 1 tablet by love th once daily triamterene-hydrochlorothiazide (Maxzide-25) 37.5-25 MG tablet Take 1 tablet by mouth 1 time each day. 10/02/2023 Active Start: 04-14-2022 End: 04-14-2022 take 1 capsule by mouth once daily at lunch 1 capsule, oral, Daily with lunch, First dose on Tue04/14/22 at 1200 triamterene-hydr oCHLOROthiazide (MAXZIDE-25) 37.5-25 mg per tablet Take 1 tablet by mouth 1 (one) time each day. Hold am DOS 4-5 0 Active 0.5 ml HYDROmorphone hydrochloride 1 mg/ml prefilled [...] [] Hold for HR less than 50. levoFLOXacin 750 mg oral tablet (6 sources) Quinolone Antimicrobial Start: 07-26-2025 End: 08-12-2025 take 1 tablet by mouth once daily Levofloxacin 750 mg tablet Discontinued 750 mg PO DAILY 5 0 July 26, 2025 12:00am August 12, 2025 8:34am lisinopril 5 mg oral tablet (9 sources) Angiotensin Converting Enzyme Inhibitor Start: 01-28-2025 End: 07-26-2025 take 1 tablet by mouth once daily Lisinopril 5 mg tablet Discontinued 5 mg PO daily January 28, 2025 12:00am July 26, 2025 2:40pm bp naloxone (NARCAN) injection 0.1 mg (1 source) Start: 04-22-2021 End: 04-22-2021 naloxone (NARCAN) injection 0.1 mg ondansetron ODT (ZOFRAN-ODT) dispersible tablet 4 mg [...] 1 03-15-2021 Episodic Anal and rectal conditions (10 sources) Anal fissure; Translations: [Anal fissure, unspecified] 01-30-2025 Episodic Anxiety disorders (3 sources) Anxiety; Translations: [Anxiety disorder, unspecified] Onset: 2 11-22-2023 Chronic Coagulation and hemorrhagic disorders (3 sources) Thrombocytopenic disorder; Translations: [Thrombocytopenia, unspecified] Onset: 0 11-22-2023 Chronic Conditions associated with dizziness or vertigo (2 sources) Lightheadedness; Translations: [Dizziness and giddiness] Onset: 5 08-21-2025 Episodic Congestive heart failure; nonhypertensive (17 sources) Acute exacerbation of chronic congestive heart failure; Translations: [Acute on chronic diastolic (congestive) heart failure] Onset: 5 07-25-2025 Chronic Deficiency and other anemia (1 source) Iron deficiency anemia secondary to blood loss (chronic); Translations: [Iron deficiency anemia secondary to blood loss (chronic)] Onset: 5 Chronic Deficiency and other anemia (20 sources) Anemia; Translations: [Anemia, unspecified] 07-21-2025 Episodic Deficiency and other anemia (12 sources) Iron deficiency anemia; Translations: [Iron deficiency anemia, unspecified] Episodic Deficiency and other anemia (2 sources) Anemia, unspecified; Translations: [Anemia, unspecified] Onset: 5 Episodic Deficiency and other anemia (6 sources) Deficiency and other anemia Diabetes mellitus without complication (14 sources) Type 2 diabetes mellitus without complication; Translations: [Type 2 diabetes mellitus without complications] Onset: 0 03-22-2024 Chronic Disorders of lipid metabolism (4 sources) Hyperlipidemia; Translations: [Hyperlipidemia, unspecified] Onset: 0 03-22-2024 Chronic Esophageal disorders (16 sources) Esophageal varices without bleeding; Translations: [Esophageal varices without bleeding] Onset: 0 Resolved: 4 Chronic Essential hypertension (14 sources) Essential hypertension; Translations: [Essential (primary) hypertension] Onset: 0 03-22-2024 Chronic Gastrointestinal hemorrhage (2 sources) Bleeding esophageal varices; Translations: [Esophageal varices with bleeding] Onset: 2 Chronic Gastrointestinal hemorrhage (9 sources) Rectal hemorrhage; Translations: [Hemorrhage of anus and rectum] 01-28-2025 Episodic Genitourinary symptoms and ill-defined conditions (3 sources) Painless hematuria; Translations: [Hematuria, unspecified] Onset: 3 09-25-2023 Episodic Heart valve disorders (8 sources) Heart murmur; Translations: [Cardiac murmur, unspecified] Onset: 5 07-21-2025 Episodic Hemorrhoids (9 sources) Hemorrhoids; Translations: [Unspecified hemorrhoids] 01-28-2025 Episodic Hepatitis (5 sources) Nonalcoholic steatohepatitis; Translations: [Nonalcoholic steatohepatitis (GLASS)] Onset: 0 Chronic Hypertension with complications and secondary hypertension (1 source) Hypertensive heart disease with heart failure; Translations: [Hypertensive heart disease with heart failure] Onset: 5 Chronic Malaise and fatigue (1 source) Malaise; Translations: [Other malaise] 08-21-2025 Episodic Nausea and vomiting (1 source) Nausea and vomiting; Translations: [Nausea with vomiting, unspecified] 08-21-2025 Episodic Nonspecific chest pain (19 sources) Chest pain, unspecified; Translations: [Atypical chest pain] Onset: 4 Episodic Other connective tissue disease (1 source) Pain in right leg; Translations: [Pain in right leg] Onset: 5 Episodic Other diseases of bladder and urethra (2 sources) Overactive bladder; Translations: [Overactive bladder] Onset: 4 11-22-2023 Chronic Other diseases of bladder and urethra (1 source) Overactive bladder; Translations: [Overactive bladder] Onset: 4 Chronic Other gastrointestinal disorders (14 sources) H/O: liver disease; Translations: [Personal history of other diseases of the digestive system] 07-21-2025 Episodic Other gastrointestinal disorders (12 sources) Occult blood in stools; Translations: [Other fecal abnormalities] Episodic Other gastrointestinal disorders (1 source) Other fecal abnormalities; Translations: [Other fecal abnormalities] Onset: 5 Episodic Other gastrointestinal disorders (1 source) Personal history of other diseases of the digestive system; Translations: [Personal history of other diseases of the digestive system] Onset: 5 Episodic Other liver diseases (2 sources) Cirrhosis of liver; Translations: [Unspecified cirrhosis of liver] Onset: 0 03-22-2024 Chronic Other liver diseases (2 sources) Unspecified cirrhosis of liver; Translations: [Unspecified cirrhosis of liver] Onset: 4 Chronic Other liver diseases (14 sources) Hyperbilirubinemia; Translations: [Unspecified jaundice] 07-21-2025 Episodic Other liver diseases (1 source) Unspecified jaundice; Translations: [Unspecified jaundice] Onset: 5 Episodic Other nervous system disorders (1 source) Postoperative pain ; Translations: [Other acute postprocedural pain] Episodic Other nutritional; endocrine; and metabolic disorders (1 source) Body mass index 40+ - severely obese; Translations: [Body mass index (BMI) 45.0-49.9, adult] Chronic Other screening for suspected conditions (not mental disorders or infectious disease) (15 sources) Increased lactic acid level; Translations: [Other specified abnormal findings of blood chemistry] Onset: 5 07-21-2025 Episodic Residual codes; unclassified (1 source) Confusional state; Translations: [Disorientation, unspecified] 08-21-2025 Episodic Skin and subcutaneous tissue infections (20 sources) Cellulitis; Translations: [Cellulitis, unspecified] Onset: 5 07-21-2025 Episodic Unclassified (12 sources) Call Tuesday to schedule appointment Past or Other Problems Problem Classification Problem [...] [Unspecified fall, initial encounter] Onset: 12-17-2023 Episodic Fluid and electrolyte disorders (1 source) Hypokalemia; Translations: [Hypokalemia] Onset: 05-02-2025 Episodic Miscellaneous mental health disorders (1 source) Impotence; Translations: [Male erectile disorder] Onset: 01-13-2022 Resolved: 11-22-2023 11-22-2023 Chronic Other and unspecified benign neoplasm (1 source) [...] Onset: 08-21-2020 Resolved: 11-22-2023 11-22-2023 Episodic Other injuries and conditions due to [...] Test Name Value Interpretation Reference Range Facility PT D/C Summary (1)on 025 PT D/C Summary (1) [facility] [address] [place] [address]. [address] [place] [address] / REHABILITATION SERVICES DISCHARGE SUMMARY MR#: [id number] Acct: [id number] Name: LEON RIDER Rep #: [id number] : 1980 45 From: Carlos Bowden DPT, OCS, CSCS Referring Dr.: Dr. Myriam Aguilar, DO Status: REG RCR Insurance: [employer]ANCE Discharge Summary D/C summary: It has been my pleasure to treat LEON RIDER referred by Dr. Myriam Aguilar DO, with the diagnosis of weakness for a total of 13 visit(s). Discharge Date: 09/16/25 Please see the following information for a summary of their discharge status. Subjective Subjective: Getting better slowly but surely. No more pain in leg. Still tired with oxygeen carrying just in case. Spot on leg is healing. it was an abscess and infecteed adn is on antibiotics. Will f/u with doctor for that. 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 Goals Goal 1:: I appropriate HEP to limit future problems with sedentarism. Goal Progress: Goal Met Goal 2:: 10 on 30 SSTS and 11 or better on TUG to show improved mobility for daily tasks. Goal Progress: part met Goal 3:: Patient feel 75% back to normal to aid in return to funcitonal work. Goal Progress: met Goal 4:: FGA score 28/30 for safety with ambulation. Goal Progress: Progressing Goal 5:: 45 LEEFS to show improved mobility adn funciton Goal Progress: Goal Met Plan Plan: d/c to HEP D/C Information d/c sentence: If there are questions or concerns regarding this patient's physical therapy, please feel free to call me at [phone]. Thank you for the referral of this patient. Sincerely, Carlos Bowden, DPT, OCS, CSCS Balance/Gait/Functional tests Balance/Special Test Scores Functional Gait Assessment Score: 27 % Disability: 10.0000 Lower Extremity Functional Score: 74 TUG Test Time Seconds: 8 Tug Test: <20 sec.=mostly independent 30 Second Chair Rise Test Seconds: 8 Improvement % Improvement: 90 09/16/25 2073 CC: Dr. Alis Duran MD; Dr. Myriam Aguilar DO EBG Signed Normal [facility] Cardiology Visit Reporton Cardiology Visit Report [facility] [address] [place] [address] OFFICE VISIT Date of Service: 09/09/25 MR#: [id number] Acct: [id number] Name: LEON RIDER Rep #: [id number] : 1980 Provider: Dr. Jocelyne cruz MD Age/Sex: 45/M [place] [facility] [place] Signed HPI HPI History of Present Illness Details: Patient is a 45-year-old white male that comes in today for new patient visit. Patient was admitted in July 2025 with an elevated lactic acid level history of cirrhosis cellulitis of the right lower extremity anemia and a history of acute on chronic heart failure with preserved ejection fraction. At discharge the patient went home on home oxygen therapy which she continues to utilize with activities. He also has a history of obstructive sleep apnea treated with CPAP he has chronic venous stasis disease he has a history of anemia and thrombocytopenia his hemoglobin was 8.1 in July 2025 he was evaluated in the emergency department for nausea and vomiting in August 21, 2025 and his hemoglobin was up to 10.4. The patient's BNP in August was 188 which is within normal limits he did not have 1 checked when he was hospitalized in July. The patient reports taking all of his medicines as written. His only real complaint is some desaturation into the 80s with activity. He is not working at this time. He is living at home he does do some chores around the house helping with the chickens. The patient denies any PND orthopnea he reports that he sleeps through the night he does have bilateral lower extremity edema related to his venous stasis disease. The patient is diabetic on metformin and Januvia. Patient had echocardiogram done July 22, 2025 showed mild concentric LVH mildly dilated left ventricle 1+ mitral insufficiency there was mildly thickened aortic valve leaflets with a mean gradient of 8 mmHg there was inferior hypokinesis and stage I diastolic dysfunction the EF estimated 55%. ECG in the office today shows normal sinus rhythm at 76 bpm with a borderline prolonged QT interval of 480 ms otherwise normal. Intake Vital Signs 07/26/25 10:23 09/04/25 10:13 09/09/25 13:23 Height 5 ft 11 in 5 ft 11 in 5 ft 11 in Weight: 320 lb BMI 44.6 BP 110/65 Blood Pressure Location Lt brachial Position Sitting Respiration 20 H Pulse 77 Pulse Source Monitor Intake Visit Reasons: Heart failure (ROGER) Online Merchandising Specialist Required: No Accompanied by: Self Is patient in pain?: No Allergies No Known Allergies Allergy (Verified 09/09/25 13:23) Medications ???Medication ???Instructions ???Recorded ???Confirmed ???Type metformin 1,000 mg tablet 1,000 mg PO BID diabetes 01/28/25 09/09/25 History sitagliptin phosphate 100 mg 100 mg PO QDAY diabetes 01/28/25 1 History tablet (Januvia) atorvastatin 20 mg tablet 20 mg PO DAILY cholesterol 5 09/09/25 History omeprazole 40 mg capsule,delayed 40 mg PO DAILY stomach 07/21/25 History release repaglinide 1 mg tablet 1 mg PO BID diabetes 07/21/2508/15 History CPAP - Continuous Positive Airway 07/23/25 08/19/25 History Pressure([facility] USE ONLY) bumetanide 2 mg tablet 2 mg PO BID #60 tabs 07/26/2508/15 Rx nadolol 20 mg tablet 20 mg PO BID #60 tabs 07/26/25 Rx potassium chloride 20 mEq 20 meq PO DAILY #30 tabs 07/26/25 09/09/25 Rx tablet,extended release(part/cryst) (Klor-Con M) spironolactone 25 mg tablet 25 mg PO DAILY #30 tabs 07/26/25 1 Rx ondansetron 4 mg disintegrating 4 mg PO Q8H PRN PRN Nausea #15 tab s 08/21/25 09/09/25 Rx tablet Ejection fraction %: 55 Have you fallen in the past year?: No PFSH Medical History Chronic venous stasis Anxiety Steatosis of liver SAÚL (obstructive sleep apnea) Kidney stones Cirrhosis Non-smoker Irregular heart beat Congestive heart failure (CHF) Chronic idiopathic thrombocytopenia Hx of cirrhosis Anemia HTN (hypertension) Diabetes Acid reflux Rectal bleeding Hemorrhoids Surgical History History of esophagogastroduodenosc opy (EGD) H/O umbilical hernia repair [place] teeth extracted Family History Other Diabetes Heart disease Social History household members: spouse housing: house Smoking Status: Never smoker alcohol intake: never substance use type: does not use ROS Const Const: Positive for fatigue (dx: anemia); Negative for weakness Eyes Eyes: Negative for change in vision ENT ENT: Positive for dizziness (right ear drum rup (more content not included)... Normal [facility] Absolute lymphocyte countOrd ered By: Vincenzo Chavarria on 08-21-2025 Lymphocytes Auto (Unsp spec) [#/Vol] 1.11 10*3/uL 0.83-4.51 [facility] Absolute neutrophil countOrd ered By: Vincenzo Chavarria on 08-21-2025 Neutrophils (Bld) [#/Vol] 3.6 10*3/uL 2.0-7.7 [facility] Anion gap in Serum or Plasma Ordered By: Vincenzo Chavarria on 08-21-2025 Anion gap [Moles/Vol] 20 mmol/L High 5-15 [facility] Automated lymphocyte count a s percentage of total leukocytesOrdered By: Vincenzo Chavarria on 08-21-2025 Lymphocytes/100 WBC Auto (Unsp spec) 17.7 % Low 19-41 [facility] BUN/creatinine ratioOrdered By: Vincenzo Chavarria on 08-21-2025 Urea nitrogen/Creatinine [Mass ratio] 18.2 mg/mg 09-02 [facility] Basic Metabolic Profile (BMP )on 08-21-2025 BUN/CRE 18.2 RATIO Normal 09-02 [facility] Comment on above: Performed By: #### L 501.080 #### [facility] [address] [place], [place], [address] Calcium [Mass/Vol] 9.0 mg/dL Normal 7.6-11.0 [facility] Comment on above: Performed By: #### L [id number] #### [facility] [address] [place], [address] Chloride [Moles/Vol] 96 mmol/L Low 98-[address] [facility] Comment on above: Performed By: #### L [id number] #### [facility] [address] [place], [address] CO2 [Moles/Vol] 21.1 mmol/L Normal 21.0-32.0 [facility] Comment on above: Performed By: #### L [id number] #### [facility] [address] [place], [address] Creatinine [Mass/Vol] 0.82 mg/dL Normal 0.70-1.20 [facility] Comment on above: Performed By: #### L [id number] #### [facility] [address] [place], [address] ECRCL 160.45 ml/min Normal 50-250 [facility] Comment on above: Performed By: #### L [id number] #### [facility] [address] [place], [address] GAP 20 High 5-15 [facility] Comment on above: Performed By: #### L [id number] #### [facility] [address] [place], [address] GFR/1.73 sq M.predicted among non-blacks MDRD (S/P/Bld) [Vol rate/Area] 109 mL/min/{1.73_m2} Normal >60 [facility] Comment on above: Result Comment: mL/m in/1.73m2 CKD-EPI Creatinine Equation (2020) Performed By: #### L 501.080 #### [facility] [address] [place], [address] Glucose [Mass/Vol] 83 mg/dL Normal 70-99 [facility] Comment on above: Performed By: #### L [id number] #### [facility] [address] [place], [address] Potassium [Moles/Vol] 3.4 mmol/L Normal 3.3-5.1 [facility] Comment on above: Performed By: #### L [id number] #### [facility] [address] [place], [address] Sodium [Moles/Vol] 136 mmol/L Normal 133-145 [facility] Comment on above: Performed By: #### L [id number] #### [facility] [address] [place], [address] Urea nitrogen [Mass/Vol] 15 mg/dL Normal 4-19 [facility] Comment on above: Performed By: #### L [id number] #### [facility] [address] [place], [place], [id number] Basophil percentageOrdered B y: Vincenzo Chavarria on 08-21-2025 Basophils/100 WBC (Bld) 1.6 % High 0-1 [facility] Bilirubin Test strip Ql (U)O rdered By: Vincenzo Chavarria on 08-21-2025 Bilirubin Ql (U) Negative Negative [facility] Blood manual differential co mment interpretation (narrative result)Ordered By: Vincenzo Chavarria on 08-21-2025 Manual differential comment Hans (Bld) [Interp] SCANNED [facility] Blood polychromasia detectio n by light microscopyOrdered By: Vincenzo Chaavrria on 08-21-2025 Polychromasia LM Ql (Bld) 1+ [facility] Brain/Head without Contrasto n 08-21-2025 Brain/Head without Contrast [facility] Imaging Services [address] [place], [place] [id number] Brain/Head without Contrast MR#: [id number] Acct: [id number] Name: LEON RIDER Rep #: [id number] : 1980 M 45 From: Elieser Morrison MD PCP: Dr. Alis Duran MD Status: REG ER Study: Brain/Head without Contrast Date of Exam: 07/08 Exam# [id number] Ordering Dr: Vincenzo Chavarria MD EXAM: CT Head Without Intravenous Contrast CLINICAL INDICATION: DIZZINESS TECHNIQUE: Axial computed tomography images of the head/brain without intravenous contrast. This CT exam was performed using one or more of the following dose reduction techniques: automated exposure control, adjustment of the mA and/or kV according to patient size, and/or use of iterative reconstruction technique. COMPARISON: No relevant prior studies available. FINDINGS: BRAIN AND EXTRA-AXIAL SPACES: No acute intracranial hemorrhage, midline shift or mass effect. If symptoms persist, further evaluation with MRI is recommended. No significant white matter disease. BONES/JOINTS: Unremarkable. No acute fracture. SOFT TISSUES: Unremarkable. SINUSES: Unremarkable as visualized. No acute sinusitis. MASTOID AIR CELLS: Unremarkable as visualized. No mastoid effusion. CT/Brain/Head without Contrast IMPRESSION: No acute intracranial hemorrhage, midline shift or mass effect. If symptoms persist, further evaluation with MRI is recommended. Reading Location: [facility] CC: Dr. Vincenzo Chavarria MD; Dr. Alis Duran MD Banking Representative: Signed Normal [facility] CBC W/Diff, Automatedon POLYCHROMASIA 1+ Normal [facility] Comment on above: Performed By: #### L [id number] #### [facility] [address] [place], [address] Anisocytosis Ql (Bld) 2+ Normal [facility] Comment on above: Performed By: #### L [id number] #### [facility] [address] [place], [address] PLT EST SLT DEC Normal ADEQ [facility] Comment on above: Performed By: #### L [id number] #### [facility] [address] [place], [address] SMEAR COMMENT SCANNED Normal [facility] Comment on above: Performed By: #### L [id number] #### [facility] [address] [place], [place], [address] MPV TNP Normal 6.2-12.0 [facility] Comment on above: Performed By: #### L [id number] #### [facility] [address] [place], [place], [address] PLT TNP Normal 150-450 [facility] Comment on above: Result Comment: Arnie khan note: For this sample, a platelet estimate is provided rather than a platelet count due to platelet clumping. Other parameters associated with this sample are not affected by platelet clumping. If a more accurate platelet count is required, a redraw of the patient will be necessary. Performed By: #### L 501.080 #### [facility] [address] [place], [place], [address] Carbon dioxide, total [Moles /volume] in Central venous bloodOrdered By: Vincenzo Chavarria on 08-21-2025 CO2 [Moles/Vol] 21.1 mmol/L 21.0-32.0 [facility] Chest 1 View (Portable)on Chest 1 View (Portable) [facility] Imaging Services [address] [place], [place] [address] Chest 1 View (Portable) MR#: [id number] Acct: [id number] Name: LEON RIDER Rep #: [id number] : 1980 M 45 From: Elieser Morrison MD PCP: Dr. Alis Duran MD Status: REG ER Study: Chest 1 View (Portable) Date of Exam: 08/21/25 Exam# [id number] Ordering Dr: Vincenzo Chavarria MD EXAM: XR Chest, 1 View CLINICAL INDICATION: CONGESTIVE HEART FAILURE TECHNIQUE: Frontal view of the chest. COMPARISON: No relevant prior studies available. FINDINGS: LUNGS AND PLEURAL SPACES: See below. HEART: Cardiomegaly with mild congestion. MEDIASTINUM: Unremarkable. Normal mediastinal contour. BONES/JOINTS: Unremarkable. No acute fracture. RAD/Chest 1 View (Portable) IMPRESSION: Cardiomegaly with mild congestion. Reading Location: [facility] CC: Dr. Vincenzo Chavarria MD; Dr. Alis Duran MD Banking Representative: Signed Normal [facility] Chloride assayOrdered By: Dez Chavarria on 08-21-2025 Chloride [Moles/Vol] 96 mmol/L Low 98-[address] [facility] Emergency Department Summary on 08-21-2025 Emergency Department Summary [facility] Medical Records Department [address] [place] [address] Emergency Department Summary 08/21/25 MR#: [id number] Acct: [id number] Name: LEON RIDER Rep #: [id number] : 1980 45 From: Vincenzo Chavarria MD PCP: Dr. Alis Duran MD Status:REG ER Location: ED HPI History of Present Illness Chief Complaint: Dizziness Narrative Narrative: 45-year-old male past medical history of CHF, hypertension, diabetes presents with his mother because of dizziness/lightheadedne ss and feeling off balance since 11:00 this morning, approximately 6 hours ago. He then began having nausea and vomiting at 3 PM, approximately 2 hours ago. He vomited twice without any hematemesis, no diarrhea, no dysuria or hematuria, no fevers or chills, no exacerbating or alleviating factors. He and his mother relate history that he was hospitalized a few weeks ago and is supposed to follow-up with cardiology. They changed his diuretic from furosemide to 2 other ones which she is unsure of the name. His mother states that he seems confused today, and not quite himself. He denies any headache, no exacerbating or alleviating factors but may feel slightly off balance when he walks. [facility] Medical History Kidney stones Cirrhosis Non-smoker Irregular heart beat Congestive heart failure (CHF) Chronic idiopathic thrombocytopenia Hx of cirrhosis Anemia HTN (hypertension) Diabetes Acid reflux Rectal bleeding Hemorrhoids Home Medications ???Medication ???Instructions ???Recorded ???Last Taken ???Type metformin 1,000 mg tablet 1,000 mg PO BID diabetes 01/28/25 Unknown History sitagliptin phosphate 100 mg 100 mg PO QDAY diabetes 01/28/25 U nknown History tablet (Januvia) atorvastatin 20 mg tablet 20 mg PO DAILY cholesterol 5 Unknown History omeprazole 40 mg capsule,delayed 40 mg PO DAILY stomach 07/21/25 Un known History release repaglinide 1 mg tablet 1 mg PO BID diabetes 07/21/25 Unkn own History CPAP - Continuous Positive Airway 07/23/25 Unknown History Pressure([facility] USE ONLY) bumetanide 2 mg tablet 2 mg PO BID #60 tabs 07/26/25 Unkn own Rx nadolol 20 mg tablet 20 mg PO BID #60 tabs 07/26/25 Unk nown Rx oxycodone 5 mg tablet 5 mg PO Q6H PRN PRN Pain Score 11/07 Unknown Rx 6-10 or Pre PT/OT 7 days #30 tabs potassium chloride 20 mEq 20 meq PO DAILY #30 tabs 07/26/25 Unknown Rx tablet,extended release(part/cryst) (Klor-Con M) spironolactone 25 mg tablet 25 mg PO DAILY #30 tabs 07/26/25 U nknown Rx ondansetron 4 mg disintegrating 4 mg PO Q8H PRN PRN Nausea #15 tab s 08/21/25 Unknown Rx tablet Allergy/AdvReac Type Severity Reaction Status Date / Time No Known Allergies Allergy Verified 08/19/25 14:53 Family History Other Diabetes Heart disease Surgical History H/O umbilical hernia repair [place] teeth extracted Social History household members: spouse housing: house Smoking Status: Never smoker alcohol intake: never substance use type: does not use ROS ROS ED ROS Narrative Review of systems positive for reported confusion, positive for lightheadedness/dizzine ss worse with walking. No fevers or chills, no headache. No shortness of breath or chest pain. Positive nausea and vomiting x 2. No diarrhea. No exacerbating or alleviating factors otherwise. EXAM Physical Exam Narrative Exam Narrative: Afebrile. Vital signs noted. Nontoxic-appearing. Cardiovascular examination regular rate and rhythm. Lungs clear to auscultation bilaterally. Abdomen is soft and nontender without guarding or rebound. Neurological examination nonfocal, nonlateralizing. Awake, alert, oriented to person, place, time, and current events. Bilateral symmetric pedal edema. Const Vital Signs: 08/21/25 16:27 08/21/25 17:25 08/21/25 17:33 Temperature 97.2 F L Temperature Source Temporal Pulse Rate 74 82 Pulse Rate [Lying] 77 Pulse Rate [Sitting (for 1 minute prior to obtaining)] 78 Pulse Rate [Standing (for 1 minute prior to obtaining)] 77 Respiratory Rate 16 18 Blood Pressure 124/63 H 126/58 H Blood Pressure [Lying] 118/55 L Blood Pressure [Sitting (for 1 minute prior to obtaining)] 126/58 H Blood Pressure [Standing (for 1 minute prior to obtaining)] 108/60 Blood Pressure Mean 83 80 Blood Pressure Mean [Lying] 76 Blood Pressure Mean [Sitting (for 1 minute prior to obtaining)] 80 Blood Pressure Mean [Standing (for 1 minute prior to obtaining)] 76 Pulse Ox 97 95 Oxygen Delivery Method Room Air Room Air 08/21/25 18:27 08/21/25 19: (more content not included)... Normal [facility] Eosinophil percentageOrdered By: Vincenzo Chavarria on 08-21-2025 Eosinophils/100 WBC (Bld) 8.8 % High 0-5 [facility] Erythrocyte distribution wid th ratioOrdered By: Vincenzo Chavarria on 08-21-2025 Erythrocyte distribution width (RBC) [Ratio] 23.9 % High 11.6-14.6 [facility] Erythrocyte distribution wid th standard deviationOrdered By: Vincenzo Chavarria on 08-21-2025 Erythrocyte distribution width (RBC) [Ratio] 73.9 fl High 35.1-43.9 [facility] Glomerular filtration rate ( GFR) estimation/1.73 sq m using serum, plasma, or whole bOrdered By: Vincenzo Chavarria on 08-21-2025 GFR/1.73 sq M.predicted among non-blacks MDRD (S/P/Bld) [Vol rate/Area] 109 mL/min/{1.73_m2} >60 [facility] Comment on above: mL/min/1.73m2 CKD-EP I Creatinine Equation (2020) Hematocrit Auto (Bld) [Volum e fraction]Ordered By: Vincenzo Chavarria on 08-21-2025 Hematocrit (Bld) [Volume fraction] 32.6 % Low 40-54 [facility] Hemoglobin measurementOrdere d By: Vincenzo Chavarria on 08-21-2025 Hemoglobin (Bld) [Mass/Vol] 10.4 g/dL Low 13.0-16.5 [facility] Immature granulocytes/100 WB C Auto (Bld)Ordered By: Vincenzo Chavarria on 08-21-2025 Immature granulocytes/100 WBC (Bld) 0.300 % 0.0-0.9 [facility] Comment on above: IG% - Immature Granu locytes (promyelocytes, myelocytes and metamyelocytes) > 1% indicates that a LEFT SHIFT is Present. Ketones Test strip Ql (U)Ord ered By: Vincenzo Chavarria on 08-21-2025 Ketones Ql (U) 5 mg/dl High Negative [facility] Laboratory - Hematology and Cell countsOrdered By: Vincenzo Chavarria on 08-21-2025 Anisocytosis Ql (Bld) 2+ [facility] MCV (mean corpuscular volume ) determinationOrdered By: Vincenzo Chavarria on 08-21-2025 MCV (RBC) [Entitic vol] 84.9 fL 80-94 [facility] Mean corpuscular hemoglobin (MCH) determinationOrdered By: Vincenzo Chavarria on 08-21-2025 MCH (RBC) [Entitic mass] 27.1 pg 27.0-32.0 [facility] Mean corpuscular hemoglobin concentration (MCHC) determinationOrdered By: Vincenzo Chavarria on 08-21-2025 MCHC (RBC) [Mass/Vol] 31.9 g/dL Low 32-36 [facility] Mean platelet volume determi nationOrdered By: Vincenzo Chavarria on 08-21-2025 Mean platelet volume determination TNP [facility] Comment on above: Test not performed Microscopic analysis of urin e for red blood cells (RBC)Ordered By: Vincenzo Chavarria on 08-21-2025 Microscopic analysis of urine for red blood cells (RBC) 0-5 SEEN /hpf 0-5 [facility] Monocyte percentageOrdered B y: Vincenzo Chavarria on 08-21-2025 Monocytes/100 WBC (Bld) 14.2 % High 0-10 [facility] Mucus LM Ql (Urine sed)Order ed By: Vincenzo Chavarria on 08-21-2025 Mucus Ql (Urine sed) 0 SEEN /hpf [facility] Natriuretic peptide.B prohor reji N-Terminal [Mass/volume] in Serum or PlasmaOrdered By: Vincenzo Chavarria on 08-21-2025 Natriuretic peptide.B prohormone N-Terminal [Mass/Vol] 188 pg/mL <450 [facility] Comment on above: Heart Failure Unlike ly: < 300 pg/mLHeart Failure Likely< 50 Years: > 450 pg/mL50-75 Years: > 900 pg/mL>75 Years: > 1800 pg/mL Neutrophil percentageOrdered By: Vincenzo Chavarria on 08-21-2025 Neutrophils/100 WBC (Bld) 57.4 % 47-70 [facility] Nitrite Test strip Ql (U)Ord ered By: Vincenzo Chavarria on 08-21-2025 Nitrite Ql (U) Negative Negative [facility] Nucleated red blood cell per centageOrdered By: Vincenzo Chavarria on 08-21-2025 Nucleated RBC/100 WBC (Bld) [Ratio] 0 % 0-5 [facility] Platelet countOrdered By: Dez Chavarria on 08-21-2025 Platelet count TNP [facility] Comment on above: Test not performedPl ease note: For this sample, a platelet estimate is provided rather than a platelet count due to platelet clumping. Other parameters associated with this sample are not affected by platelet clumping. If a more accurate platelet count is required, a redraw of the patient will be necessary. Platelet estimateOrdered By: Vincenzo Chavarria on 08-21-2025 Platelets LM Ql (Bld) SLT DEC ADEQ [facility] Potassium measurement (mass/ volume)Ordered By: Vincenzo Chavarria on 08-21-2025 Potassium (Unsp spec) [Mass/Vol] 3.4 mmol/L 3.3-5.1 [facility] Pro- Brain NATRIURETIC PEPTI [place] 08-21-2025 Natriuretic peptide B (Bld) [Mass/Vol] 188 pg/mL Normal <=450 [facility] Comment on above: Result Comment: Hear t Failure Unlikely: < 300 pg/mL Heart Failure Likely < 50 Years: > 450 pg/mL 50-75 Years: > 900 pg/mL >75 Years: > 1800 pg/mL Performed By: #### L 501.080 #### [facility] [address] [place], [address] Protein Test strip Ql (U)Ord ered By: Vincenzo Chavarria on 08-21-2025 Protein Ql (U) 15 mg/dl High Negative [facility] RBC Auto (Bld) [#/Vol]Ordere d By: Vincenzo Chavarria on 08-21-2025 RBC (Bld) [#/Vol] 3.84 10*6/uL Low 4.6-6.2 [facility] Serum creatinine measurement (mass/volume)Ordered By: Vincenzo Chavarria on 08-21-2025 Creatinine [Mass/Vol] 0.82 mg/dL 0.70-1.20 [facility] Serum glucose measurement (m ass/volume)Ordered By: Vincenzo Chavarria on 08-21-2025 Glucose [Mass/Vol] 83 mg/dL 70-99 [facility] Serum or plasma calcium wilfred urement (mass/volume)Ordered By: Vincenzo Chavarria on 08-21-2025 Calcium [Mass/Vol] 9.0 mg/dL 7.6-11.0 [facility] Serum or plasma urea nitroge n measurement (mass/volume)Ordered By: Vincenzo Chavarria on 08-21-2025 Urea nitrogen [Mass/Vol] 15 mg/dL 4-19 [facility] Sodium levelOrdered By: Vincenzo Chavarria on 08-21-2025 Sodium [Moles/Vol] 136 mmol/L 133-145 [facility] Squamous epithelial cells de tection in urine sediment by light microscopyOrdered By: Vincenzo Chavarria on 08-21-2025 Epithelial cells.squamous LM Ql (Urine sed) 0-5 SEEN /hpf 0-5 [facility] Urinalysis, Completeon 08-21 EPI,SQUAMOUS 0-5 SEEN Normal 0-5 [facility] Comment on above: Order Comment: CLEAN CATCH Performed By: #### L [id number] #### [facility] [address] [place], [address] RBC 0-5 SEEN Normal 0-5 [facility] Comment on above: Order Comment: CLEAN CATCH Performed By: #### L [id number] #### [facility] [address] [place], [address] WBC 0-5 SEEN Normal 0-5 [facility] Comment on above: Order Comment: CLEAN CATCH Performed By: #### L [id number] #### [facility] [address] [place], [address] BACTERIA 0 SEEN Normal None Seen [facility] Comment on above: Order Comment: CLEAN CATCH Performed By: #### L [id number] #### [facility] [address] [place], [address] Mucus Ql (Urine sed) 0 SEEN Normal [facility] Comment on above: Order Comment: CLEAN CATCH Performed By: #### L [id number] #### [facility] [address] [place], [address] Urine clarityOrdered By: Anastacia Chavarria on 08-21-2025 Clarity (U) Cloudy Clear [facility] Urine color determinationOrd ered By: Vincenzo Chavarria on 08-21-2025 Color (U) Yellow Yellow [facility] Urine glucose detectionOrder ed By: Vincenzo Chavarria on 08-21-2025 Glucose Ql (U) Normal mg/dl Normal [facility] Urine leukocyte esterase det ection by dipstickOrdered By: Vincenzo Chavarria on 08-21-2025 Leukocyte esterase Test strip Ql (U) Negative Negative [facility] Urine pHOrdered By: Vincenzo ace on 08-21-2025 pH (U) 6.0 [pH] 5.0 - 8.0 [facility] Urine sediment bacteria coun t by microscopy (number/high power field)Ordered By: Vincenzo Chavarria on 08-21-2025 Bacteria LM.HPF (Urine sed) [#/Area] 0 /[HPF] None Seen [facility] Urine specific gravity measu rementOrdered By: Vincenzo Chavarria on 08-21-2025 Specific gravity (U) [Rel density] 1.020 1.002-1.03 0 [facility] Urine urobilinogen measureme ntOrdered By: Vincenzo Chavarria on 08-21-2025 Urobilinogen Ql (U) 1 mg/dl High Normal [facility] White blood cell (WBC) count Ordered By: Vincenzo Chavarria on 08-21-2025 WBC (Bld) [#/Vol] 6.3 10*3/uL 4.4-11.0 [facility] White blood cell countOrdere d By: Vincenzo Chavarria on 08-21-2025 White blood cell count 0-5 SEEN /hpf 0-5 [facility] Oncology Visit Reporton Oncology Visit Report [facility] [address] [place] [address]. [place] [address] OFFICE VISIT Date of Service: 08/19/25 1447 MR#: [id number] Acct: [id number] Name: LEON RIDER Rep #: [id number] : 1980 From: León Mccray MD Age/Sex: 45/M [place] [facility] [place] Status: Signed HPI Subjective Date of Service 08/19/25 Chief Complaint F/u for anemia. 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 He has had esophageal varices which has been banded in [place]. Denies recent bleeding. Had blood work done and comes for follow up. Feels well[facility] Medical History Hx of cirrhosis Anemia Chronic idiopathic thrombocytopenia HTN (hypertension) Diabetes Acid reflux Rectal bleeding Hemorrhoids Surgical History H/O umbilical hernia repair [place] teeth extracted Family History Other Diabetes Heart disease Social History household members: spouse housing: house Smoking Status: Never smoker alcohol intake: never substance use type: does not use Intake Vital Signs 08/12/25 08:24 08/19/25 14:48 Height 5 ft 11 in 5 ft 11 in Weight: 141.237 kg BMI 43.4 BP 116/68 Blood Pressure Location Rt brachial Position Sitting Respiration 18 Pulse 82 Pulse Source Monitor Temp 98.6 F Temperature Source Temporal Artery Pulse Oximetry (%) 95 Oxygen Delivery Method room air Intake Accompanied by: Self Is patient in pain?: Yes (leg) Pain scale (1-10): 1 Allergies No Known Allergies Allergy (Verified 08/19/25 14:53) Medications ???Medication ???Instructions ???Recorded ???Confirmed ???Type metformin 1,000 mg tablet 1,000 mg PO BID diabetes 01/28/25 08/19/25 History sitagliptin phosphate 100 mg 100 mg PO QDAY diabetes 01/28/25 1 History tablet (Januvia) atorvastatin 20 mg tablet 20 mg PO DAILY cholesterol 5 08/19/25 History omeprazole 40 mg capsule,delayed 40 mg PO DAILY stomach 07/21/25 History release repaglinide 1 mg tablet 1 mg PO BID diabetes 07/21/2505/08 History CPAP - Continuous Positive Airway 07/23/25 08/19/25 History Pressure([facility] USE ONLY) bumetanide 2 mg tablet 2 mg PO BID #60 tabs 07/26/2505/08 Rx nadolol 20 mg tablet 20 mg PO BID #60 tabs 07/26/2505/08 Rx oxycodone 5 mg tablet 5 mg PO Q6H PRN PRN Pain Score 11/0708/19/25 Rx 6-10 or Pre PT/OT 7 days #30 tabs potassium chloride 20 mEq 20 meq PO DAILY #30 tabs 07/26/25 08/19/25 Rx tablet,extended release(part/cryst) (Klor-Con M) spironolactone 25 mg tablet 25 mg PO DAILY #30 tabs 07/26/25 1 Rx Central Venous Access Central Venous Access: No Microbiology 08/13/25 07:20 Stool Stool Occult Blood (GIORGIO) - Final Occult Blood Positive Laboratory Tests 08/12/25 09:28 WBC 5.2 Hgb 10.0 L Hct 32.2 L Plt Count 115 L Iron 40 L Iron Saturation 12.3 Ferritin 60 Total Bilirubin 2.60 H AST 65 H ALT 28 Alkaline Phosphatase 115 Lactate Dehydrogenase 413 H Total Protein 8.3 Albumin 2.6 L Globulin 5.7 H Exam Physical Exam Const alert, oriented x3 and no apparent distress Coding Level of Care Code Off vis,est,level 3 Exam Problem Focused Diagnoses Iron deficiency anemia due to chronic blood loss D50.0 Anemia type: iron deficiency Iron deficiency anemia type: chronic blood loss Positive fecal occult blood test R19.5 Iron deficiency anemia due to chronic blood loss D50.0 Iron deficiency anemia type: chronic blood loss Assessment and Plan Assessment and Plan (1) Anemia: Qualifiers: Anemia type: iron deficiency Iron deficiency anemia type: chronic blood loss Qualified Code(s): D50.0 - Iron deficiency anemia secondary to blood loss (chronic) Plan: To obtain Pre-authorization and do IV iron Obtain old records for review. RTC 8 weeks (2) Positive fecal occult blood test: Status: Acute Plan: To follow up with GI for further work up. (3) Iron deficiency anemia: Status: Acute Qualifiers: Iron deficiency anemia type: chronic blood loss Qualified Code(s): D50.0 - Iron deficiency anemia secondary to blood loss (chronic) Plan: To obtain Pre-authorization and do IV Iron. Plan Details Follow Up: 8 Weeks 08/19/25 1513 Date León Dunne Signature: Date (if applicable) CC: (more content not included)... Normal [facility] Haptoglobinon 08-13-2025 HAPTOGLOBIN 38 mg/dL Normal 23-355 [facility] Comment on above: Result Comment: Perf ormed at: - [address] [id number] [employer] Cutter: Tres Cm PhD, Phone: [phone] Performed By: #### L 500.2638, L100.0100 #### [facility] Laboratory [address] [place], [address] Inital Evaluation (1) - PTon 08-13-2025 Inital Evaluation (1) - PT [facility] Physical Therapy [facility]. [address] [place] [address] / REHABILITATION SERVICES INITIAL EVALUATION MR#: [id number] Acct: [id number] Name: LEON RIDER Rep #: [id number] : 1980 45 From: Carlos Bowden DPT, OCS, CSCS Referring Dr.: Dr. Myriam Aguilar DO Status: REG RCR Insurance: [employer] SELF PAY INSURANCE Patient's Visit Information Visit Information Visit Information: LEON RIDER is a 45 year old M referred to Physical Therapy by Dr. Myriam Aguilar DO with a diagnosis of weakness. Date of Evaluation: 08/13/25 Physical Therapist: Carlos Bowden DPT, OCS, CSCS Visit Plan Frequency: 3x /Week Duration: 4-6 Weeks Plan: 3x/week for 4-6 weeks for IE HEP laq and ap throughout day, walk 5-10 min 2x/day at [place] to increase activity. Safety first. treat with LE adn core strength and activity increased walking and steps monitor SpO2 as needed. progress to HEP. Subjective Subjective: Recently in hospital with hear failure and R leg cellulitis. Was SOB for a long time and chest pain. Got out of hospital a weeek later and been home for the last 2 weeks. No home PT. Pain is in r LE where ceullitis was. Needs to get stronger. Referred by hospitalist. Has oxygen now and had it at times prior. Walking is woprse than prior to admission as he was walking fine, just SOB. No falls, Feels unsteady now . No spinning. No numbness in LE. Lives with and animals, dresses self, bathroom I, showering himself. Spends day sitting watching TV, Free time is pretty normal. Avoids helping out with chickens, , Getting around poorly limits him. 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 Pain R LE: Pain Intensity (Out of 10): 2 Pain Intensity Range: 0 and 3 Comment: better with legs elevated. Objective Objective: 91 spO2 and 89 HR after FGA on 2 l/min, 92/88 after 30 seec sit to stand. 14 TUG Walks slowly ambling holding Oxygen tankl with wide APOLINAR and feet pointed out but I, fatigues easy. SOB after 200 feet back to room slightly. Chair and bed trasnfers are I. weakneess noted in core. Steps require rail and can do either leg. LE AROM wFL. Tightness obvious in HS B at -40 90/90 test. reflexes 2/3 patella dna chilles B. Sensation LE WNL to gross lgiht touch B. strength in hips 3+ abd and eext, and flexion, core weakness with testing. knee flexion adn ext 4- B. ankles 4 B. Balance/Special Test Scores Functional Gait Assessment Score: 24 % Disability: 20.0000 Lower Extremity Functional Score: 25 TUG Test Time Seconds: 14 30 Second Chair Rise Test Seconds: 5 Goals Goal 1:: I appropriate HEP to limit future problems with sedentarism. Goal Time Frame: 4-6 Weeks Goal 2:: 10 on 30 SSTS and 11 or better on TUG to show improved mobility for daily tasks. Goal Time Frame: 4-6 Weeks Goal 3:: Patient feel 75% back to normal to aid in return to funcitonal work. Goal Time Frame: 4-6 Weeks Goal 4:: FGA score 28/30 for safety with ambulation. Goal Time Frame: 4-6 Weeks Goal 5:: 45 LEEFS to show improved mobility adn funciton Goal Time Frame: 4-6 Weeks Rehabilitation Potential Physical Therapy Diagnosis: weeakness, sedentary after recent hospitalization ffecting mobility Rehabilitation Potential: Good Anticipated Interventions Patient/Client Instruction: Educate patient on: Condition and Plan of Care For the Purpose of:: To improve muscle performance and motor function, To increase tolerance to activity/condition/posi tion and To improve gait and locomotor functions Therapeutic Exercise to Include: Strength training, Endurance training, Postural training, Flexibilty training, Gait and locomotor training, Passive ROM and Active ROM For the Purpose of:: To improve nutrient delivery to tissue, To improve muscle performance and motor function, To increase tolerance to activity/condition/posi tion, To improve ability of physical actions for home/community/work/lei sure and To improve gait and locomotor functions Text: Thank you for the opportunity to evaluate your patient. For Medicare and Medicare HMO plans, please review the plan of care and approve it. It will need to be FAXED BACK to us at [phone] for Medicare purposes. For Medicare only, by signing this I certify the plan of care. Please let me know if there are questions or concerns regarding this plan of care. Physician Signature: Date: 08/13/25 1312 CC: Dr. Alis Duran MD; Dr. Myriam Aguilar DO EBG Signed Normal [facility] Stool Occult Blood iFOBon STOB Normal Reference Ran ge = Negative Immunochemical Fecal Occult Blood (iFOBT) method. Hemoccult Stl Ql IA Limitation: Menstrual bleeding, constipation bleeding, bleeding hemorrhoids, and urinary bleeding conditions may interfere with test. Occult Blood A Positive A OCCULT BLOOD POSITIVE Normal [facility] Comment on above: Performed By: #### L 501.080 #### [facility] Laboratory [facility] [place], [address] Stool gastrointestinal hemog lobin detection by immunologic methodOrdered By: León Mccray on 08-13-2025 Lower GI hemoglobin IA Ql (Stl) Positive Abnormal [facility] Absolute lymphocyte countOrd ered By: León Mccray on 08-12-2025 Lymphocytes Auto (Unsp spec) [#/Vol] 1.04 10*3/uL 0.83-4.51 [facility] Absolute neutrophil countOrd ered By: León Mccray on 08-12-2025 Neutrophils (Bld) [#/Vol] 2.5 10*3/uL 2.0-7.7 [facility] Activated partial thrombopla stin time (aPTT) in platelet poor plasma by coagulation aOrdered By: León Mccray on 08-12-2025 aPTT Coag (PPP) [Time] 35.9 s 24.1-36.2 [facility] Anion gap in Serum or Plasma Ordered By: León Mccray on 08-12-2025 Anion gap [Moles/Vol] 16 mmol/L High 5-15 [facility] Automated lymphocyte count a s percentage of total leukocytesOrdered By: León Mccray on 08-12-2025 Lymphocytes/100 WBC Auto (Unsp spec) 20.1 % - [facility] BUN/creatinine ratioOrdered By: León [facility] on 08-12-2025 Urea nitrogen/Creatinine [Mass ratio] 14.6 mg/mg 10-20 [facility] Basophil percentageOrdered B y: León Mccray on 08-12-2025 Basophils/100 WBC (Bld) 2.1 % High 0-1 [facility] Bilirubin Test strip Ql (U)O rdered By: León Mccray on 08-12-2025 Bilirubin Ql (U) Negative Negative [facility] Bilirubin, totalOrdered By: León Mccray on 08-12-2025 Bilirubin [Mass/Vol] 2.60 mg/dL High 0.00-1.[address] [facility] Blood manual differential co mment interpretation (narrative result)Ordered By: León Mccray on 08-12-2025 Manual differential comment Hans (Bld) [Interp] SCANNED [facility] CBC W/Diff, Automatedon 07-16 Anisocytosis Ql (Bld) 2+ Normal [facility] Comment on above: Performed By: #### L 506.0200, L503.0106, L100.9950, L503.6030, L503.6550 #### [facility] [address] [place], [place], [id number] SMEAR COMMENT SCANNED Normal [facility] Comment on above: Performed By: #### L 506.0200, L503.0106, L100.9950, L503.6030, L503.6550 #### [facility] [address] [place], [address] CRPon 08-12-2025 C-REACTIVE PROT 33.40 mg/L High 0.0-3.0 [facility] Comment on above: Performed By: #### L 506.0200, L503.0106, L100.9950, L503.6030, L503.6550 #### [facility] [address] [place], [address] Carbon dioxide, total [Moles /volume] in Central venous bloodOrdered By: León Mccray on 08-12-2025 CO2 [Moles/Vol] 22.0 mmol/L 21.0-32.0 [facility] Chloride assayOrdered By: Radha Mccray on 08-12-2025 Chloride [Moles/Vol] 96 mmol/L Low 98-[address] [facility] Comprehensive Metabolic Prof ilon 08-12-2025 Albumin [Mass/Vol] 2.6 g/dL Low 3.5-5.0 [facility] Comment on above: Performed By: #### L 506.0200, L503.0106, L100.9950, L503.6030, L503.6550 #### [facility] [address] [place], [address] Albumin/Globulin [Mass ratio] 0.5 {ratio} Low 0.9-2.4 [facility] Comment on above: Performed By: #### L 506.0200, L503.0106, L100.9950, L503.6030, L503.6550 #### [facility] [address] [place], [address] ALK PHOS 115 U/L Normal 40-129 [facility] Comment on above: Performed By: #### L 506.0200, L503.0106, L100.9950, L503.6030, L503.6550 #### [facility] [address] [place], [address] ALT [Catalytic activity/Vol] 28 U/L Normal <=46 [facility] Comment on above: Performed By: #### L 506.0200, L503.0106, L100.9950, L503.6030, L503.6550 #### [facility] [address] [place], [address] AST [Catalytic activity/Vol] 65 U/L High <=37 [facility] Comment on above: Result Comment: Hemo lysis present, Results??could be affected. ?? Hemolysis present, Results??could be affected. ?? Hemolysis present, Results??could be affected. ?? Performed By: #### L 506.0200, L503.0106, L100.9950, L503.6030, L503.6550 #### [facility] [address] [place], [address] Bilirubin [Mass/Vol] 2.60 mg/dL High 0.00-1.[address] [facility] Comment on above: Performed By: #### L 506.0200, L503.0106, L100.9950, L503.6030, L503.6550 #### [facility] [address] [place], [address] BUN/CRE 14.6 RATIO Normal 10-20 [facility] Comment on above: Performed By: #### L 506.0200, L503.0106, L100.9950, L503.6030, L503.6550 #### [facility] [address] [place], [address] Calcium [Mass/Vol] 8.0 mg/dL Normal 7.6-11.0 [facility] Comment on above: Performed By: #### L 506.0200, L503.0106, L100.9950, L503.6030, L503.6550 #### [facility] [address] [place], [address] Chloride [Moles/Vol] 96 mmol/L Low 98-[address] [facility] Comment on above: Performed By: #### L 506.0200, L503.0106, L100.9950, L503.6030, L503.6550 #### [facility] [address] [place], [address] CO2 [Moles/Vol] 22.0 mmol/L Normal 21.0-32.0 [facility] Comment on above: Performed By: #### L 506.0200, L503.0106, L100.9950, L503.6030, L503.6550 #### [facility] [address] [place], [address] Creatinine [Mass/Vol] 0.72 mg/dL Normal 0.70-1.20 [facility] Comment on above: Performed By: #### L 506.0200, L503.0106, L100.9950, L503.6030, L503.6550 #### [facility] [address] [place], [address] GAP 16 High 5-15 [facility] Comment on above: Performed By: #### L 506.0200, L503.0106, L100.9950, L503.6030, L503.6550 #### [facility] [address] [place], [address] GFR/1.73 sq M.predicted among non-blacks MDRD (S/P/Bld) [Vol rate/Area] 113 mL/min/{1.73_m2} Normal >60 [facility] Comment on above: Result Comment: mL/m in/1.73m2 CKD-EPI Creatinine Equation (2020) Performed By: #### L 506.0200, L503.0106, L100.9950, L503.6030, L503.6550 #### [facility] [address] [place], [address] Globulin (S) [Mass/Vol] 5.7 g/dL High 2.2-4.2 [facility] Comment on above: Performed By: #### L 506.0200, L503.0106, L100.9950, L503.6030, L503.6550 #### [facility] [address] [place], [address] Glucose [Mass/Vol] 133 mg/dL High 70-99 [facility] Comment on above: Performed By: #### L 506.0200, L503.0106, L100.9950, L503.6030, L503.6550 #### [facility] [address] [place], [address] Potassium [Moles/Vol] 3.5 mmol/L Normal 3.3-5.1 [facility] Comment on above: Result Comment: Hemo lysis present, Results??could be affected. ?? Hemolysis present, Results??could be affected. ?? Performed By: #### L 506.0200, L503.0106, L100.9950, L503.6030, L503.6550 #### [facility] [address] [place], [address] Sodium [Moles/Vol] 135 mmol/L Normal 133-145 [facility] Comment on above: Performed By: #### L 506.0200, L503.0106, L100.9950, L503.6030, L503.6550 #### [facility] [address] [place], [address] T PROT 8.3 g/dL Normal 5.9-8.4 [facility] Comment on above: Performed By: #### L 506.0200, L503.0106, L100.9950, L503.6030, L503.6550 #### [facility] [address] [place], [place], [id number] Urea nitrogen [Mass/Vol] 11 mg/dL Normal 4-19 [facility] Comment on above: Performed By: #### L 506.0200, L503.0106, L100.9950, L503.6030, L503.6550 #### [facility] [address] [place], [place], [address] Eosinophil percentageOrdered By: León Mccray on 08-12-2025 Eosinophils/100 WBC (Bld) 13.1 % High 0-5 [facility] Erythrocyte Sed Rateon 08-12 SED RATE 76 mm/hr High 0-20 [facility] Comment on above: Performed By: #### L 506.0200, L503.0106, L100.9950, L503.6030, L503.6550 #### [facility] [address] [place], [address] Erythrocyte distribution wid th ratioOrdered By: León Mccray on 08-12-2025 Erythrocyte distribution width (RBC) [Ratio] 24.8 % High 11.6-14.6 [facility] Erythrocyte distribution wid th standard deviationOrdered By: León Shazia on 08-12-2025 Erythrocyte distribution width (RBC) [Ratio] 77.5 fl High 35.1-43.9 [facility] Erythrocyte sedimentation ra teOrdered By: León Mccray on 08-12-2025 ESR (Bld) [Velocity] 76 mm/h High 0-[address] [facility] Ferritinon 08-12-2025 Ferritin [Mass/Vol] 60 ng/mL Normal 37-417 [facility] Comment on above: Performed By: #### L 506.0200, L503.0106, L100.9950, L503.6030, L503.6550 #### [facility] [address] [place], [place], [id number] Glomerular filtration rate ( GFR) estimation/1.73 sq m using serum, plasma, or whole bOrdered By: León Mccray on 08-12-2025 GFR/1.73 sq M.predicted among non-blacks MDRD (S/P/Bld) [Vol rate/Area] 113 mL/min/{1.73_m2} >60 [facility] Comment on above: mL/min/1.73m2 CKD-EP I Creatinine Equation (2020) Hematocrit Auto (Bld) [Volum e fraction]Ordered By: León Mccray on 08-12-2025 Hematocrit (Bld) [Volume fraction] 32.2 % Low 40-54 [facility] Hemoglobin measurementOrdere d By: León Mccray on 08-12-2025 Hemoglobin (Bld) [Mass/Vol] 10.0 g/dL Low 13.0-16.5 [facility] Immature granulocytes/100 WB C Auto (Bld)Ordered By: León Mccray on 08-12-2025 Immature granulocytes/100 WBC (Bld) 0.400 % 0.0-0.9 [facility] Comment on above: IG% - Immature Granu locytes (promyelocytes, myelocytes and metamyelocytes) > 1% indicates that a LEFT SHIFT is Present. International normalized rat io (INR) calculationOrdered By: León Mccray on 08-12-2025 INR Coag (Bld) [Relative time] 1.6 {INR} [facility] Iron measurement (mass/mass) Ordered By: León Mccray on 08-12-2025 Iron (Unsp spec) [Mass/Mass] 40 ug/dL Low 65-175 [facility] Iron+Iron Binding Capacityon 08-12-2025 Iron [Mass/Vol] 40 ug/dL Low 65-175 [facility] Comment on above: Performed By: #### L 506.0200, L503.0106, L100.9950, L503.6030, L503.6550 #### [facility] [address] [place], [place], [id number] (391) IRON SATURATION 12.3 Normal 9-55 [facility] Comment on above: Performed By: #### L 506.0200, L503.0106, L100.9950, L503.6030, L503.6550 #### [facility] [address] [place], [address] TIBC 327 ug/dL Normal 250-450 [facility] Comment on above: Performed By: #### L 506.0200, L503.0106, L100.9950, L503.6030, L503.6550 #### [facility] [address] [place], [address] UIBC 287 ug/dL Normal 228-428 [facility] Comment on above: Result Comment: Hemo lysis present, Results??could be affected. ?? Hemolysis present, Results??could be affected. ?? Hemolysis present, Results??could be affected. ?? Performed By: #### L 506.0200, L503.0106, L100.9950, L503.6030, L503.6550 #### [facility] [address] [place], [address] Ketones Test strip Ql (U)Ord ered By: León Mccray on 08-12-2025 Ketones Ql (U) Negative Negative [facility] LDHon 08-12-2025 LDH 413 U/L High 87-241 [facility] Comment on above: Order Comment: 1 Result Comment: Hemo lysis present, Results??could be affected. ?? Hemolysis present, Results??could be affected. ?? Hemolysis present, Results??could be affected. ?? Performed By: #### L 506.0200, L503.0106, L100.9950, L503.6030, L503.6550 #### [facility] [address] [place], [address] Laboratory - Chemistry and C hemistry - challengeOrdered By: León Mccray on 08-12-2025 AST [Catalytic activity/Vol] 65 U/L High <38 [facility] Comment on above: Hemolysis present, R esults could be affected. Hemolysis present, Results could be affected. Hemolysis present, Results could be affected. Laboratory - Hematology and Cell countsOrdered By: León Mccray on 08-12-2025 Anisocytosis Ql (Bld) 2+ [facility] Lactate dehydrogenase (LDH) measurementOrdered By: León Mccray on 08-12-2025 LDH [Catalytic activity/Vol] 413 U/L High 87-241 [facility] [facility] Comment on above: Hemolysis present, R esults could be affected. Hemolysis present, Results could be affected. Hemolysis present, Results could be affected. MCV (mean corpuscular volume ) determinationOrdered By: León Mccray on 08-12-2025 MCV (RBC) [Entitic vol] 86.3 fL 80-94 [facility] Magnesiumon 08-12-2025 Magnesium [Mass/Vol] 1.7 mg/dL Normal 1.5-2.[address] [facility] Comment on above: Performed By: #### L 506.0200, L503.0106, L100.9950, L503.6030, L503.6550 #### [facility] [address] [place], [address] Magnesium measurement (mass/ volume)Ordered By: León Mccray on 08-12-2025 Magnesium (Unsp spec) [Mass/Vol] 1.7 mg/dL 1.5-2.2 [facility] Mean corpuscular hemoglobin (MCH) determinationOrdered By: León Mccray on 08-12-2025 MCH (RBC) [Entitic mass] 26.8 pg Low 27.0-32.0 [facility] Mean corpuscular hemoglobin concentration (MCHC) determinationOrdered By: León Mccray on 08-12-2025 MCHC (RBC) [Mass/Vol] 31.1 g/dL Low 32-36 [facility] Mean platelet volume determi nationOrdered By: León Mccray on 08-12-2025 Platelet mean volume (Bld) [Entitic vol] 10.4 fL 6.2-12.0 [facility] Microscopic analysis of urin e for red blood cells (RBC)Ordered By: León Mccray on 08-12-2025 Microscopic analysis of urine for red blood cells (RBC) 5-10 SEEN /hpf 0-5 [facility] Monocyte percentageOrdered B y: León Mccray on 08-12-2025 Monocytes/100 WBC (Bld) 16.4 % High 0-10 [facility] Mucus LM Ql (Urine sed)Order ed By: León Mccray on 08-12-2025 Mucus Ql (Urine sed) 0 SEEN /hpf [facility] Neutrophil percentageOrdered By: León Mccray on 08-12-2025 Neutrophils/100 WBC (Bld) 47.9 % 47-70 [facility] Nitrite Test strip Ql (U)Ord ered By: León Mccray on 08-12-2025 Nitrite Ql (U) Negative Negative [facility] No Panel InformationOrdered By: León Mccray on 08-12-2025 Unsaturated Iron Binding Capacity 287 ug/dL 228-428 [facility] Comment on above: Hemolysis present, R esults could be affected. Hemolysis present, Results could be affected. Hemolysis present, Results could be affected. Nucleated red blood cell per centageOrdered By: León Mccray on 08-12-2025 Nucleated RBC/100 WBC (Bld) [Ratio] 0 % 0-5 [facility] Oncology Visit Reporton 07-16 Oncology Visit Report [facility] [address] [place] [address] OFFICE VISIT Date of Service: 08/12/25822 MR#: [id number] Acct: [id number] Name: LEON RIDER Rep #: [id number] : 1980 From: León Mccray MD Age/Sex: 45/M [place] [facility] [place]: Signed HPI Subjective Date of Service 08/12/25 Chief Complaint Referred for anemia. 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 He has had esophageal varices which has been banded in [place]. [facility] Medical History Hx of cirrhosis Anemia Chronic idiopathic thrombocytopenia HTN (hypertension) Diabetes Acid reflux Rectal bleeding Hemorrhoids Surgical History H/O umbilical hernia repair [place] teeth extracted Family History Other Diabetes Heart disease Social History household members: spouse housing: house Smoking Status: Never smoker alcohol intake: never substance use type: does not use ROS Constitutional Constitutional: Reports systems reviewed and no addt'l complaints, except as documented Eyes Eyes: Reports systems reviewed and no addt'l complaints, except as documented ENT HEENT: Reports systems reviewed and no addt'l complaints, except as documented Cardiovascular Cardiovascular: Reports systems reviewed and no addt'l complaints, except as documented Respiratory/Chest Respiratory/Chest: Reports systems reviewed and no addt'l complaints, except as documented Gastrointestinal Gastrointestinal: Reports systems reviewed and no addt'l complaints, except as documented Genitourinary Genitourinary: Reports systems reviewed and no addt'l complaints, except as documented Musculoskeletal Musculoskeletal: Reports systems reviewed and no addt'l complaints, except as documented Integumentary Integumentary: Reports systems reviewed and no addt'l complaints, except as documented Neurologic Neurologic: Reports systems reviewed and no addt'l complaints, except as documented Psychiatric Psychiatric: Reports systems reviewed and no addt'l complaints, except as documented Endocrine Endocrinology: Reports systems reviewed and no addt'l complaints, except as documented Hematologic/Lymphatic Hematologic/Lymphatic: Reports systems reviewed and no addt'l complaints, except as documented Allergic/Immunologic Allergic/Immunologic: Reports systems reviewed and no addt'l complaints, except as documented Intake Vital Signs 07/26/25 10:23 08/12/25 08:24 Height 5 ft 11 in 5 ft 11 in Weight: 146.085 kg BMI 44.9 BP 108/66 Blood Pressure Location Rt brachial Position Sitting Respiration 18 Pulse 78 Pulse Source Monitor Temp 98.5 F Temperature Source Temporal Artery Pulse Oximetry (%) 96 Oxygen Delivery Method room air Intake Is patient in pain?: Yes (right leg) Pain scale (1-10): 4 Allergies No Known Allergies Allergy (Verified 08/12/25 08:33) Medications ???Medication ???Instructions ???Recorded ???Confirmed ???Type metformin 1,000 mg tablet 1,000 mg PO BID diabetes 01/28/25 08/12/25 History sitagliptin phosphate 100 mg 100 mg PO QDAY diabetes 01/28/25 0 08/12/25 History tablet (Januvia) atorvastatin 20 mg tablet 20 mg PO DAILY cholesterol 5 08/12/25 History omeprazole 40 mg capsule,delayed 40 mg PO DAILY stomach 07/21/25 History release repaglinide 1 mg tablet 1 mg PO BID diabetes 07/21/2507/16 History CPAP - Continuous Positive Airway 07/23/25 08/12/25 History Pressure([facility] USE ONLY) bumetanide 2 mg tablet 2 mg PO BID #60 tabs 07/26/2507/16 Rx nadolol 20 mg tablet 20 mg PO BID #60 tabs 07/26/25 Rx oxycodone 5 mg tablet 5 mg PO Q6H PRN PRN Pain Score 11/0708/12/25 Rx 6-10 or Pre PT/OT 7 days #30 tabs potassium chloride 20 mEq 20 meq PO DAILY #30 tabs 07/26/25 08/12/25 Rx tablet,extended release(part/cryst) (Klor-Con M) spironolactone 25 mg tablet 25 mg PO DAILY #30 tabs 07/26/25 0 08/12/25 Rx Central Venous Access Central Venous Access: No Exam Physical Exam Const alert, oriented x3 and no apparent distress HEENT normocephalic, external ears normal and external nose normal Eyes Eyes Narrative: +jaundiced sclera Neck full ROM, no lymphadenopathy and supple Lymph Lymphatic: no lymphadenopathy noted Resp clear to auscultation bilaterally Cardio regular rate, regular rhythm, S1 normal heart sound, S2 normal heart sound and no murmurs (more content not included)... Normal [facility] Partial Thromboplast Timeon 08-12-2025 aPTT Coag (Bld) [Time] 35.9 s Normal 24.1-36.2 [facility] Comment on above: Performed By: #### L 506.0200, L503.0106, L100.9950, L503.6030, L503.6550 #### [facility] [address] [place], [address] Phosphoruson 08-12-2025 Phosphate [Mass/Vol] 2.9 mg/dL Normal 2.7-4.[address] [facility] Comment on above: Performed By: #### L 506.0200, L503.0106, L100.9950, L503.6030, L503.6550 #### [facility] [address] [place], [address] Platelet countOrdered By: Radha Mccray on 08-12-2025 Platelets (Bld) [#/Vol] 115 10*3/uL Low 150-450 [facility] Potassium measurement (mass/ volume)Ordered By: León Mccray on 08-12-2025 Potassium (Unsp spec) [Mass/Vol] 3.5 mmol/L 3.3-5.1 [facility] Comment on above: Hemolysis present, R esults could be affected. Hemolysis present, Results could be affected. Protein Test strip Ql (U)Ord ered By: León Mccray on 08-12-2025 Protein Ql (U) 15 mg/dl High Negative [facility] Prothrombin Time w/INRon INR Coag (PPP) [Relative time] 1.6 {INR} Normal [facility] Comment on above: Performed By: #### L 506.0200, L503.0106, L100.9950, L503.6030, L503.6550 #### [facility] [address] [place], [address] PT Coag (PPP) [Time] 19.8 s High 11.7-14.[address] [facility] Comment on above: Performed By: #### L 506.0200, L503.0106, L100.9950, L503.6030, L503.6550 #### [facility] [address] [place], [address] Prothrombin timeOrdered By: León Mccray on 08-12-2025 PT Coag (PPP) [Time] 19.8 s High 11.7-14.[address] [facility] RBC Auto (Bld) [#/Vol]Ordere d By: León Mccray on 08-12-2025 RBC (Bld) [#/Vol] 3.73 10*6/uL Low 4.6-6.2 [facility] Retic Panelon 08-12-2025 IM RET FRACTION 27.60 High 3.00-15.90 [facility] Comment on above: Performed By: #### L 506.0200, L503.0106, L100.9950, L503.6030, L503.6550 #### [facility] [address] [place], [place], [id number] RET-HE 29.9 pg Low 30-35 [facility] Comment on above: Performed By: #### L 506.0200, L503.0106, L100.9950, L503.6030, L503.6550 #### [facility] [address] [place], [address] Retic Count 2.66 High 0.5-1.5 [facility] Comment on above: Performed By: #### L 506.0200, L503.0106, L100.9950, L503.6030, L503.6550 #### [facility] [address] [place], [place], [address] Reticulocyte hemoglobin equi valent (RET-He) measurementOrdered By: León Mccray on 08-12-2025 Hemoglobin (Reticulocytes) [Entitic mass] 29.9 pg Low 30-35 [facility] Reticulocytes Auto (Bld) [#/ Vol]Ordered By: León Mccray on 08-12-2025 Reticulocytes/100 RBC (Bld) 2.66 % High 0.5-1.5 [facility] Serum creatinine measurement (mass/volume)Ordered By: León Mccray on 08-12-2025 Creatinine [Mass/Vol] 0.72 mg/dL 0.70-1.20 [facility] Serum globulin measurementOr dered By: León Mccray on 08-12-2025 Globulin (S) [Mass/Vol] 5.7 g/dL High 2.2-4.2 [facility] Serum glucose measurement (m ass/volume)Ordered By: León Mccray on 08-12-2025 Glucose [Mass/Vol] 133 mg/dL High 70-99 [facility] Serum or plasma C reactive p rotein measurement (mass/volume)Ordered By: León Mccray on 08-12-2025 CRP [Mass/Vol] 33.40 mg/L High 0.0-3.0 [facility] Serum or plasma alanine reyes otransferase (ALT) measurementOrdered By: León Mccray on 08-12-2025 ALT [Catalytic activity/Vol] 28 U/L <47 [facility] Serum or plasma albumin wilfred urement (mass/volume)Ordered By: León Mccray on 08-12-2025 Albumin [Mass/Vol] 2.6 g/dL Low 3.5-5.0 [facility] Serum or plasma albumin/glob ulin mass ratioOrdered By: León Mccray on 08-12-2025 Albumin/Globulin [Mass ratio] 0.5 {ratio} Low 0.9-2.4 [facility] Serum or plasma alkaline roge sphatase measurementOrdered By: León Mccray on 08-12-2025 ALP [Catalytic activity/Vol] 115 U/L 40-129 [facility] Serum or plasma calcium wilfred urement (mass/volume)Ordered By: León Mccray on 08-12-2025 Calcium [Mass/Vol] 8.0 mg/dL 7.6-11.0 [facility] Serum or plasma ferritin shelby surement (mass/volume)Ordered By: León Mccray on 08-12-2025 Ferritin [Mass/Vol] 60 ng/mL 37-417 [facility] Serum or plasma iron saturat ion measurement (mass fraction)Ordered By: León Mccray on 08-12-2025 Iron saturation [Mass fraction] 12.3 % 9-55 [facility] Serum or plasma urea nitroge n measurement (mass/volume)Ordered By: León Mccray on 08-12-2025 Urea nitrogen [Mass/Vol] 11 mg/dL 4-19 [facility] Sodium levelOrdered By: Greg Mccray on 08-12-2025 Sodium [Moles/Vol] 135 mmol/L 133-145 [facility] Squamous epithelial cells de tection in urine sediment by light microscopyOrdered By: León Mccray on 08-12-2025 Epithelial cells.squamous LM Ql (Urine sed) 0-5 SEEN /hpf 0-5 [facility] Total proteinOrdered By: Sánchez Mccray on 08-12-2025 Protein [Mass/Vol] 8.3 g/dL 5.9-8.4 [facility] Urinalysis, Completeon 08-12 EPI,SQUAMOUS 0-5 SEEN Normal 0-5 [facility] Comment on above: Order Comment: MISAEL CTOR TO SPECIFY Performed By: #### L 501.080 #### [facility] [address] [place], [address] RBC 5-10 SEEN Normal 0-5 [facility] Comment on above: Order Comment: MISAEL CTOR TO SPECIFY Performed By: #### L 501.080 #### [facility] [address] [place], [address] BACTERIA 0 SEEN Normal None Seen [facility] Comment on above: Order Comment: MISAEL CTOR TO SPECIFY Performed By: #### L 501.080 #### [facility] [address] [place], [address] Mucus Ql (Urine sed) 0 SEEN Normal [facility] Comment on above: Order Comment: MISAEL CTOR TO SPECIFY Performed By: #### L 501.080 #### [facility] [address] [place], [address] WBC 0 SEEN Normal 0-5 [facility] Comment on above: Order Comment: MISAEL CTOR TO SPECIFY Performed By: #### L 501.080 #### [facility] [address] [place], [address] Urine clarityOrdered By: Sánchez Mccray on 08-12-2025 Clarity (U) Clear Clear [facility] Urine color determinationOrd ered By: León Mccray on 08-12-2025 Color (U) Yellow Yellow [facility] Urine glucose detectionOrder ed By: León Mccray on 08-12-2025 Glucose Ql (U) Normal mg/dl Normal [facility] Urine leukocyte esterase det ection by dipstickOrdered By: León Mccray on 08-12-2025 Leukocyte esterase Test strip Ql (U) Negative Negative [facility] Urine pHOrdered By: León amador on 08-12-2025 pH (U) 7.0 [pH] 5.0 - 8.0 [facility] Urine sediment bacteria coun t by microscopy (number/high power field)Ordered By: León Mccray on 08-12-2025 Bacteria LM.HPF (Urine sed) [#/Area] 0 /[HPF] None Seen [facility] Urine specific gravity measu rementOrdered By: León Mccray on 08-12-2025 Specific gravity (U) [Rel density] 1.010 1.002-1.03 0 [facility] Urine urobilinogen measureme ntOrdered By: León Mccray on 08-12-2025 Urobilinogen Ql (U) 8 mg/dl High Normal [facility] White blood cell (WBC) count Ordered By: León Mccray on 08-12-2025 WBC (Bld) [#/Vol] 5.2 10*3/uL 4.4-11.0 [facility] White blood cell countOrdere d By: León Mccray on 08-12-2025 White blood cell count 0 SEEN /hpf 0-5 [facility] Erythropoietinon 08-05-2025 ERYTHROPOIETIN 254.5 mIU/mL High 2.6-18.5 [facility] Comment on above: Order Comment: Order Date: 08/02/25Order Info: [id number] - NICK Result Comment: [employer] Uni[employer]el DxI 800 Immunoassay System Values obtained with different assay methods or kits cannot be used interchangeably. Results cannot be interpreted as absolute evidence of the presence or absence of malignant disease. Performed at: [facility] [id number] [employer] Cutter: Tres Cm PhD, Phone: [phone] Performed By: #### L 506.0200, L503.0106, L100.0750, L503.0230, L503.2350 #### [facility] [address] [place], [address] Absolute lymphocyte countOrd ered By: Alis Duran on 08-02-2025 Lymphocytes Auto (Unsp spec) [#/Vol] 1.04 10*3/uL 0.83-4.51 [facility] Absolute neutrophil countOrd ered By: Alis Duran on 08-02-2025 Neutrophils (Bld) [#/Vol] 3.7 10*3/uL 2.0-7.7 [facility] Automated lymphocyte count a s percentage of total leukocytesOrdered By: Alis Duran on 08-02-2025 Lymphocytes/100 WBC Auto (Unsp spec) 17.5 % Low 19-41 [facility] Basophil percentageOrdered B y: Alis Duran on 08-02-2025 Basophils/100 WBC (Bld) 1.2 % High 0-1 [facility] Blood manual differential co mment interpretation (narrative result)Ordered By: Alis Duran on 08-02-2025 Manual differential comment Hans (Bld) [Interp] SCANNED [facility] Blood polychromasia detectio n by light microscopyOrdered By: Alis Duran on 08-02-2025 Polychromasia LM Ql (Bld) 1+ [facility] CBC W/Diff, Automatedon 07-15 OVALOCYTE 1+ Normal [facility] Comment on above: Order Comment: Order Date: 08/02/25Order Info: [id number] - CBCD Performed By: #### L 506.0200, L503.0106, L100.9950, L503.6030, L503.6550 #### [facility] [address] [place], [address] Anisocytosis Ql (Bld) 2+ Normal [facility] Comment on above: Order Comment: Order Date: 08/02/25Order Info: [id number] - CBCD Performed By: #### L 506.0200, L503.0106, L100.9950, L503.6030, L503.6550 #### [facility] [address] [place], [address] POLYCHROMASIA 1+ Normal [facility] Comment on above: Order Comment: Order Date: 08/02/25Order Info: [id number] - CBCD Performed By: #### L 506.0200, L503.0106, L100.9950, L503.6030, L503.6550 #### [facility] [address] [place], [address] PLT EST SLT DEC Normal ADEQ [facility] Comment on above: Order Comment: Order Date: 08/02/25Order Info: [id number]- - CBCD Performed By: #### L 506.0200, L503.0106, L100.9950, L503.6030, L503.6550 #### [facility] [address] [place], [address] SMEAR COMMENT SCANNED Normal [facility] Comment on above: Order Comment: Order Date: 08/02/25Order Info: [id number]- - CBCD Performed By: #### L 506.0200, L503.0106, L100.9950, L503.6030, L503.6550 #### [facility] [address] [place], [address] Eosinophil percentageOrdered By: Alis Duran on 08-02-2025 Eosinophils/100 WBC (Bld) 5.5 % High 0-5 [facility] Erythrocyte distribution wid th ratioOrdered By: Alis Duran on 08-02-2025 Erythrocyte distribution width (RBC) [Ratio] 25.7 % High 11.6-14.6 [facility] Erythrocyte distribution wid th standard deviationOrdered By: Alis Duran on 08-02-2025 Erythrocyte distribution width (RBC) [Ratio] 78.2 fl High 35.1-43.9 [facility] Hematocrit Auto (Bld) [Volum e fraction]Ordered By: Alis Duran on 08-02-2025 Hematocrit (Bld) [Volume fraction] 30.1 % Low 40-54 [facility] Hemoglobin measurementOrdere d By: Alis Duran on 08-02-2025 Hemoglobin (Bld) [Mass/Vol] 9.3 g/dL Low 13.0-16.5 [facility] Immature granulocytes/100 WB C Auto (Bld)Ordered By: Alis Duran on 08-02-2025 Immature granulocytes/100 WBC (Bld) 0.500 % 0.0-0.9 [facility] Comment on above: IG% - Immature Granu locytes (promyelocytes, myelocytes and metamyelocytes) > 1% indicates that a LEFT SHIFT is Present. Laboratory - Hematology and Cell countsOrdered By: Alis Duran on 08-02-2025 Anisocytosis Ql (Bld) 2+ [facility] MCV (mean corpuscular volume ) determinationOrdered By: Alis Duran on 08-02-2025 MCV (RBC) [Entitic vol] 85.8 fL 80-94 [facility] Mean corpuscular hemoglobin (MCH) determinationOrdered By: Alis Duran on 08-02-2025 MCH (RBC) [Entitic mass] 26.5 pg Low 27.0-32.0 [facility] Mean corpuscular hemoglobin concentration (MCHC) determinationOrdered By: Alis Duran on 08-02-2025 MCHC (RBC) [Mass/Vol] 30.9 g/dL Low 32-36 [facility] Mean platelet volume determi nationOrdered By: Alis Duran on 08-02-2025 Platelet mean volume (Bld) [Entitic vol] 10.7 fL 6.2-12.0 [facility] Monocyte percentageOrdered B y: Alis Duran on 08-02-2025 Monocytes/100 WBC (Bld) 13.4 % High 0-10 [facility] Neutrophil percentageOrdered By: [facility] on 08-02-2025 Neutrophils/100 WBC (Bld) 61.9 % 47-70 [facility] Nucleated red blood cell per centageOrdered By: Alis Duran on 08-02-2025 Nucleated RBC/100 WBC (Bld) [Ratio] 0 % 0-5 [facility] Ovalocyte detectionOrdered B y: Alis Duran on 08-02-2025 Ovalocytes LM Ql (Bld) 1+ [facility] Platelet countOrdered By: Darrick Duran on 08-02-2025 Platelets (Bld) [#/Vol] 132 10*3/uL Low 150-450 [facility] Platelet estimateOrdered By: Alis Duran on 08-02-2025 Platelets LM Ql (Bld) SLT DEC ADEQ [facility] RBC Auto (Bld) [#/Vol]Ordere d By: Alis Duran on 08-02-2025 RBC (Bld) [#/Vol] 3.51 10*6/uL Low 4.6-6.2 [facility] Serum or plasma erythropoiet in (EPO) measurement (units/volume)Ordered By: Alis Duran on 08-02-2025 Erythropoietin (EPO) Qn 254.5 mIU/mL High 2.6-18.5 [facility] Comment on above: [employer] DxI 800 Immunoassay SystemValues obtained with different assay methods or kits cannotbe used interchangeably. Results cannot be interpreted asabsolute evidence of the presence or absence of malignantdisease.Performed at: [employer] [id number] Director: Tres Cm PhD, Phone: [phone] Vitamin B12on 08-02-2025 Cobalamin (Vitamin B12) [Mass/Vol] 1591 pg/mL High 180-914 [facility] Comment on above: Performed By: #### L 506.0200, L503.0106, L100.9950, L503.6030, L503.6550 #### [facility] [address] [place], [address] Vitamin B12 ser/plasOrdered By: Alis Duran on 08-02-2025 Cobalamin (Vitamin B12) [Mass/Vol] 1591 pg/mL High 180-914 [facility] White blood cell (WBC) count Ordered By: Alis Duran on 08-02-2025 WBC (Bld) [#/Vol] 6.0 10*3/uL 4.4-11.0 [facility] 12 Lead EKGon 07-26-2025 12 Lead EKG [facility] [address] [place] [address] 12 Lead EKG 07/26/25 1413 MR#: [id number] Acct: [id number] Name: LEON RIDER Rep #: [id number] : 1980 45 From: Jocelyne Henley MD Attending Dr: Dr. Myriam Aguilar DO Status: DIS I N Ordering Dr: Myriam Aguilar DO Date: 07/26/25 Location: [facility] Sex: M C Admitted: 07/21/25 Test Reason : CP Blood Pressure : */* mmHG Vent. Rate : 81 BPM Atrial Rate : 81 BPM P-R Int : 180 ms QRS Dur : 86 ms QT Int : 436 ms P-R-T Axes : 25 7 24 degrees QTcB Int : 506 ms Normal sinus rhythm Prolonged QT Abnormal ECG When compared with ECG of 21-Jul-2025 09:41, Nonspecific T wave abnormality no longer evident in Lateral leads Confirmed by Jocelyne Henley ([id number]), manager editorial JACQUELYN ANDRADE ([id number]) on 07/29/2025 1:29:21 PM Referred By: Confirmed By: Jocelyne Henley 07/29/25 1329 Date Jocelyne Henley MD CC: Dr. Alis Duran MD; Dr. Myriam Aguilar DO Signed Normal [facility] Anion gap in Serum or Plasma Ordered By: Myriam Aguilar on 07-26-2025 Anion gap [Moles/Vol] 9 mmol/L 5- [facility] BUN/creatinine ratioOrdered By: Myriam Aguilar on 07-26-2025 Urea nitrogen/Creatinine [Mass ratio] 11.9 mg/mg 10- [facility] Bedside Glucoseon 07-26-2025 FINGERSTICK GLU 188 mg/dL High 74-106 [facility] Comment on above: Result Comment: PADDY GEMENT OF PATIENT CARE PER NURSING PROTOCOL Performed By: #### L 500.4050, L100.0100 #### [facility] [address] [place] [place], [address] FINGERSTICK GLU 142 mg/dL High 74-106 [facility] Comment on above: Result Comment: PADDY GEMENT OF PATIENT CARE PER NURSING PROTOCOL Performed By: #### L 506.0200, L503.0106, L100.9950, L503.6030, L503.6550 #### [facility] [address] [place], [address] Bilirubin, totalOrdered By: Myriam Aguilar on 07-26-2025 Bilirubin [Mass/Vol] 1.75 mg/dL High 0.00-1.[address] [facility] CBC-Complete Blood Cnt No Di ffon 07-26-2025 Erythrocyte distribution width (RBC) [Ratio] 24.9 % High 11.6-14.6 [facility] Comment on above: Performed By: #### L 506.0200, L503.0106, L100.9950, L503.6030, L503.6550 #### [facility] [address] [place], [address] Hematocrit (Bld) [Volume fraction] 25.3 % Low 40-54 [facility] Comment on above: Performed By: #### L 506.0200, L503.0106, L100.9950, L503.6030, L503.6550 #### [facility] [address] [place], [address] Hemoglobin (Bld) [Mass/Vol] 8.1 g/dL Low 13.0-16.5 [facility] Comment on above: Performed By: #### L 506.0200, L503.0106, L100.9950, L503.6030, L503.6550 #### [facility] [address] [place], [address] MCH (RBC) [Entitic mass] 26.7 pg Low 27.0-32.0 [facility] Comment on above: Performed By: #### L 506.0200, L503.0106, L100.9950, L503.6030, L503.6550 #### [facility] [address] [place], [address] MCHC (RBC) [Mass/Vol] 32.0 g/dL Normal 32-36 [facility] Comment on above: Performed By: #### L 506.0200, L503.0106, L100.9950, L503.6030, L503.6550 #### [facility] [address] [place], [address] MCV (RBC) [Entitic vol] 83.5 fL Normal 80-94 [facility] Comment on above: Performed By: #### L 506.0200, L503.0106, L100.9950, L503.6030, L503.6550 #### [facility] [address] [place], [address] Platelet mean volume (Bld) [Entitic vol] 9.9 fL Normal 6.2-12.0 [facility] Comment on above: Performed By: #### L 506.0200, L503.0106, L100.9950, L503.6030, L503.6550 #### [facility] [address] [place], [address] Platelets (Bld) [#/Vol] 129 10*3/uL Low 150-450 [facility] Comment on above: Performed By: #### L 506.0200, L503.0106, L100.9950, L503.6030, L503.6550 #### [facility] [address] [place], [address] RBC (Bld) [#/Vol] 3.03 10*6/uL Low 4.6-6.2 [facility] Comment on above: Performed By: #### L 506.0200, L503.0106, L100.9950, L503.6030, L503.6550 #### [facility] [address] [place], [address] RDW SD 71.4 fl High 35.1-43.9 [facility] Comment on above: Performed By: #### L 506.0200, L503.0106, L100.9950, L503.6030, L503.6550 #### [facility] [address] [place], [address] WBC (Bld) [#/Vol] 6.0 10*3/uL Normal 4.4-11.0 [facility] Comment on above: Performed By: #### L 506.0200, L503.0106, L100.9950, L503.6030, L503.6550 #### [facility] [address] [place], [address] Carbon dioxide, total [Moles /volume] in Central venous bloodOrdered By: Myriam Aguilar on 07-26-2025 CO2 [Moles/Vol] 23.3 mmol/L 21.0-32.0 [facility] Chloride assayOrdered By: Sakshi Aguilar on 07-26-2025 Chloride [Moles/Vol] 101 mmol/L 98-[address] [facility] Comprehensive Metabolic Prof ilon 07-26-2025 Albumin [Mass/Vol] 2.0 g/dL Low 3.5-5.0 [facility] Comment on above: Performed By: #### L 506.0200, L503.0106, L100.9950, L503.6030, L503.6550 #### [facility] [address] [place], [address] Albumin/Globulin [Mass ratio] 0.5 {ratio} Low 0.9-2.4 [facility] Comment on above: Performed By: #### L 506.0200, L503.0106, L100.9950, L503.6030, L503.6550 #### [facility] [address] [place], [address] ALK PHOS 128 U/L Normal 40-129 [facility] Comment on above: Performed By: #### L 506.0200, L503.0106, L100.9950, L503.6030, L503.6550 #### [facility] [address] [place], [address] ALT [Catalytic activity/Vol] 27 U/L Normal <=46 [facility] Comment on above: Performed By: #### L 506.0200, L503.0106, L100.9950, L503.6030, L503.6550 #### [facility] [address] [place], [address] AST [Catalytic activity/Vol] 47 U/L High <=37 [facility] Comment on above: Performed By: #### L 506.0200, L503.0106, L100.9950, L503.6030, L503.6550 #### [facility] [address] [place], [address] Bilirubin [Mass/Vol] 1.75 mg/dL High 0.00-1.[address] [facility] Comment on above: Performed By: #### L 506.0200, L503.0106, L100.9950, L503.6030, L503.6550 #### [facility] [address] [place], [address] BUN/CRE 11.9 RATIO Normal 10-20 [facility] Comment on above: Performed By: #### L 506.0200, L503.0106, L100.9950, L503.6030, L503.6550 #### [facility] [address] [place], [address] Calcium [Mass/Vol] 7.3 mg/dL Low 7.6-11.0 [facility] Comment on above: Performed By: #### L 506.0200, L503.0106, L100.9950, L503.6030, L503.6550 #### [facility] [address] [place], [address] Chloride [Moles/Vol] 101 mmol/L Normal 98-[address] [facility] Comment on above: Performed By: #### L 506.0200, L503.0106, L100.9950, L503.6030, L503.6550 #### [facility] [address] [place], [address] CO2 [Moles/Vol] 23.3 mmol/L Normal 21.0-32.0 [facility] Comment on above: Performed By: #### L 506.0200, L503.0106, L100.9950, L503.6030, L503.6550 #### [facility] [address] [place], [address] Creatinine [Mass/Vol] 0.69 mg/dL Low 0.70-1.20 [facility] Comment on above: Performed By: #### L 506.0200, L503.0106, L100.9950, L503.6030, L503.6550 #### [facility] [address] [place], [address] ECRCL 217.11 ml/min Normal 50-250 [facility] Comment on above: Performed By: #### L 506.0200, L503.0106, L100.9950, L503.6030, L503.6550 #### [facility] [address] [place], [address] GAP 9 Normal 5-15 [facility] Comment on above: Performed By: #### L 506.0200, L503.0106, L100.9950, L503.6030, L503.6550 #### [facility] [address] [place], [address] GFR/1.73 sq M.predicted among non-blacks MDRD (S/P/Bld) [Vol rate/Area] 115 mL/min/{1.73_m2} Normal >60 [facility] Comment on above: Result Comment: mL/m in/1.73m2 CKD-EPI Creatinine Equation (2020) Performed By: #### L 506.0200, L503.0106, L100.9950, L503.6030, L503.6550 #### [facility] [address] [place], [address] Globulin (S) [Mass/Vol] 4.1 g/dL Normal 2.2-4.2 [facility] Comment on above: Performed By: #### L 506.0200, L503.0106, L100.9950, L503.6030, L503.6550 #### [facility] [address] [place], [address] Glucose [Mass/Vol] 140 mg/dL High 70-99 [facility] Comment on above: Performed By: #### L 506.0200, L503.0106, L100.9950, L503.6030, L503.6550 #### [facility] [address] [place], [address] Potassium [Moles/Vol] 3.5 mmol/L Normal 3.3-5.1 [facility] Comment on above: Performed By: #### L 506.0200, L503.0106, L100.9950, L503.6030, L503.6550 #### [facility] [address] [place], [address] Sodium [Moles/Vol] 133 mmol/L Normal 133-145 [facility] Comment on above: Performed By: #### L 506.0200, L503.0106, L100.9950, L503.6030, L503.6550 #### [facility] [address] [place], [address] T PROT 6.1 g/dL Normal 5.9-8.4 [facility] Comment on above: Performed By: #### L 506.0200, L503.0106, L100.9950, L503.6030, L503.6550 #### [facility] [address] [place], [address] Urea nitrogen [Mass/Vol] 8 mg/dL Normal 4-19 [facility] Comment on above: Performed By: #### L 506.0200, L503.0106, L100.9950, L503.6030, L503.6550 #### [facility] [address] [place], [address] Culture, Blood (WB)on 2024 CUB Blood cultures x2, f rom two different sites No growth in 5 days. Normal [facility] Comment on above: Performed By: #### L 501.080 #### [facility] [address] [place], [address] CUB Blood cultures x2, f rom two different sites No growth in 5 days. Normal [facility] Comment on above: Performed By: #### L 499.0043 #### [facility] [address] [place], [address] Erythrocyte distribution wid th ratioOrdered By: Myriam Aguilar on 07-26-2025 Erythrocyte distribution width (RBC) [Ratio] 24.9 % High 11.6-14.6 [facility] Erythrocyte distribution wid th standard deviationOrdered By: Myriam Aguilar on 07-26-2025 Erythrocyte distribution width (RBC) [Ratio] 71.4 fl High 35.1-43.9 [facility] Glomerular filtration rate ( GFR) estimation/1.73 sq m using serum, plasma, or whole bOrdered By: Myriam Aguilar on 07-26-2025 GFR/1.73 sq M.predicted among non-blacks MDRD (S/P/Bld) [Vol rate/Area] 115 mL/min/{1.73_m2} >60 [facility] Comment on above: mL/min/1.73m2 CKD-EP I Creatinine Equation (2020) [facility]Ordered By: Myriam Aguilar on 07-26-2025 Glucose [Mass/Vol] 188 mg/dL High 74-106 [facility] Comment on above: MANAGEMENT OF PATIEN T CARE PER NURSING PROTOCOL Glucose [Mass/Vol] 142 mg/dL High 74-106 [facility] Comment on above: MANAGEMENT OF PATIEN T CARE PER NURSING PROTOCOL Hematocrit Auto (Bld) [Volum e fraction]Ordered By: Myriam Aguilar on 07-26-2025 Hematocrit (Bld) [Volume fraction] 25.3 % Low 40-54 [facility] Hemoglobin measurementOrdere d By: Myriam Aguilar on 07-26-2025 Hemoglobin (Bld) [Mass/Vol] 8.1 g/dL Low 13.0-16.5 [facility] - Chemistry and C hemistry - challengeOrdered By: Myriam Aguilar on 07-26-2025 AST [Catalytic activity/Vol] 47 U/L High <38 [facility] MCV (mean corpuscular volume ) determinationOrdered By: Myriam Aguilar on 07-26-2025 MCV (RBC) [Entitic vol] 83.5 fL 80-94 [facility] Magnesiumon 07-26-2025 Magnesium [Mass/Vol] 1.9 mg/dL Normal 1.5-2.[address] [facility] Comment on above: Performed By: #### L 506.0200, L503.0106, L100.9950, L503.6030, L503.6550 #### [facility] [address] [place], [place], [address] Magnesium measurement (mass/ volume)Ordered By: Myriam Aguilar on 07-26-2025 Magnesium (Unsp spec) [Mass/Vol] 1.9 mg/dL 1.5-2.2 [facility] Mean corpuscular hemoglobin (MCH) determinationOrdered By: Myriam Aguilar on 07-26-2025 MCH (RBC) [Entitic mass] 26.7 pg Low 27.0-32.0 [facility] Mean corpuscular hemoglobin concentration (MCHC) determinationOrdered By: Myriam Aguilar on 07-26-2025 MCHC (RBC) [Mass/Vol] 32.0 g/dL 32-36 [facility] Mean platelet volume determi nationOrdered By: Myriam Aguilar on 07-26-2025 Platelet mean volume (Bld) [Entitic vol] 9.9 fL 6.2-12.0 [facility] Phosphoruson 07-26-2025 Phosphate [Mass/Vol] 2.7 mg/dL Normal 2.7-4.[address] [facility] Comment on above: Performed By: #### L 506.0200, L503.0106, L100.9950, L503.6030, L503.6550 #### [facility] [address] [place], [address] Platelet countOrdered By: Sakshi Aguilar on 07-26-2025 Platelets (Bld) [#/Vol] 129 10*3/uL Low 150-450 [facility] Potassium measurement (mass/ volume)Ordered By: Myriam Aguilar on 07-26-2025 Potassium (Unsp spec) [Mass/Vol] 3.5 mmol/L 3.3-5.1 [facility] RBC Auto (Bld) [#/Vol]Ordere d By: Myriam Aguilar on 07-26-2025 RBC (Bld) [#/Vol] 3.03 10*6/uL Low 4.6-6.2 [facility] Serum creatinine measurement (mass/volume)Ordered By: Myriam Aguilar on 07-26-2025 Creatinine [Mass/Vol] 0.69 mg/dL Low 0.70-1.20 [facility] Serum globulin measurementOr dered By: Myriam Aguilar on 07-26-2025 Globulin (S) [Mass/Vol] 4.1 g/dL 2.2-4.2 [facility] Serum glucose measurement (m ass/volume)Ordered By: Myriam Aguilar on 07-26-2025 Glucose [Mass/Vol] 140 mg/dL High 70-99 [facility] Serum or plasma alanine reyes otransferase (ALT) measurementOrdered By: Myriam Aguilar on 07-26-2025 ALT [Catalytic activity/Vol] 27 U/L <47 [facility] Serum or plasma albumin wilfred urement (mass/volume)Ordered By: Myriam Aguilar on 07-26-2025 Albumin [Mass/Vol] 2.0 g/dL Low 3.5-5.0 [facility] Serum or plasma albumin/glob ulin mass ratioOrdered By: Myriam Aguilar on 07-26-2025 Albumin/Globulin [Mass ratio] 0.5 {ratio} Low 0.9-2.4 [facility] Serum or plasma alkaline roge sphatase measurementOrdered By: Myriam Aguilar on 07-26-2025 ALP [Catalytic activity/Vol] 128 U/L 40-129 [facility] Serum or plasma calcium wilfred urement (mass/volume)Ordered By: Myriam Aguilar on 07-26-2025 Calcium [Mass/Vol] 7.3 mg/dL Low 7.6-11.0 [facility] Serum or plasma urea nitroge n measurement (mass/volume)Ordered By: Myriam Aguilar on 07-26-2025 Urea nitrogen [Mass/Vol] 8 mg/dL 4-19 [facility] Sodium levelOrdered By: Ana Paula Aguilar on 07-26-2025 Sodium [Moles/Vol] 133 mmol/L 133-145 [facility] Total proteinOrdered By: Zuleyma Aguilar on 07-26-2025 Protein [Mass/Vol] 6.1 g/dL 5.9-8.4 [facility] White blood cell (WBC) count Ordered By: Myriam Aguilar on 07-26-2025 WBC (Bld) [#/Vol] 6.0 10*3/uL 4.4-11.0 [facility] Absolute lymphocyte countOrd ered By: Myriam Aguilar on 07-25-2025 Lymphocytes Auto (Unsp spec) [#/Vol] 0.91 10*3/uL 0.83-4.51 [facility] Absolute neutrophil countOrd ered By: Myriam Aguilar on 07-25-2025 Neutrophils (Bld) [#/Vol] 3.5 10*3/uL 2.0-7.7 [facility] Automated lymphocyte count a s percentage of total leukocytesOrdered By: Myriam Aguilar on 07-25-2025 Lymphocytes/100 WBC Auto (Unsp spec) 15.0 % Low 19-41 [facility] Basophil percentageOrdered B y: Myriam Aguilar on 07-25-2025 Basophils/100 WBC (Bld) 1.0 % 0-1 [facility] Bedside Glucoseon 07-25-2025 FINGERSTICK GLU 200 mg/dL High [address] [place] [address] Comment on above: Result Comment: PADDY GEMENT OF PATIENT CARE PER NURSING PROTOCOL Performed By: #### L 506.0200, L503.0106, L100.9950, L503.6030, L503.6550 #### [facility] [address] [place], [address] FINGERSTICK GLU 236 mg/dL [facility]106 [facility] Comment on above: Result Comment: PADDY GEMENT OF PATIENT CARE PER NURSING PROTOCOL Performed By: #### L 501.080 #### [facility] [address] [place], [address] FINGERSTICK GLU 209 mg/dL High [address] [place] [address] Comment on above: Result Comment: PADDY GEMENT OF PATIENT CARE PER NURSING PROTOCOL Performed By: #### L 501.080 #### [facility] [address] [place], [address] FINGERSTICK GLU 149 mg/dL High [address] [place] [address] Comment on above: Result Comment: PADDY GEMENT OF PATIENT CARE PER NURSING PROTOCOL Performed By: #### L 501.080 #### [facility] [address] [place], [address] Blood polychromasia detectio n by light microscopyOrdered By: Myriam Aguilar on 07-25-2025 Polychromasia LM Ql (Bld) 1+ [facility] CBC W/Diff, Automatedon 07-15 OVALOCYTE 1+ Normal [facility] Comment on above: Performed By: #### L 506.0200, L503.0106, L100.9950, L503.6030, L503.6550 #### [facility] [address] [place], [address] POLYCHROMASIA 1+ Normal [facility] Comment on above: Performed By: #### L 506.0200, L503.0106, L100.9950, L503.6030, L503.6550 #### [facility] [address] [place], [address] Anisocytosis Ql (Bld) 3+ Normal [facility] Comment on above: Performed By: #### L 506.0200, L503.0106, L100.9950, L503.6030, L503.6550 #### [facility] [address] [place], [address] Comprehensive Metabolic Prof [facility] 07-25-2025 Albumin [Mass/Vol] 2.2 g/dL Low 3.5-5.0 [facility] Comment on above: Performed By: #### L 506.0200, L503.0106, L100.9950, L503.6030, L503.6550 #### [facility] [address] [place], [address] Albumin/Globulin [Mass ratio] 0.5 {ratio} Low 0.9-2.4 [facility] Comment on above: Performed By: #### L 506.0200, L503.0106, L100.9950, L503.6030, L503.6550 #### [facility] [address] [place], [address] ALK PHOS 103 U/L Normal 40-129 [facility] Comment on above: Performed By: #### L 506.0200, L503.0106, L100.9950, L503.6030, L503.6550 #### [facility] [address] [place], [address] ALT [Catalytic activity/Vol] 25 U/L Normal <=46 [facility] Comment on above: Performed By: #### L 506.0200, L503.0106, L100.9950, L503.6030, L503.6550 #### [facility] [address] [place], [address] AST [Catalytic activity/Vol] 40 U/L High <=37 [facility] Comment on above: Performed By: #### L 506.0200, L503.0106, L100.9950, L503.6030, L503.6550 #### [facility] [address] [place], [address] Bilirubin [Mass/Vol] 2.14 mg/dL High 0.00-1.[address] [facility] Comment on above: Performed By: #### L 506.0200, L503.0106, L100.9950, L503.6030, L503.6550 #### [facility] [address] [place], [address] BUN/CRE 14.3 RATIO Normal 10-20 [facility] Comment on above: Performed By: #### L 506.0200, L503.0106, L100.9950, L503.6030, L503.6550 #### [facility] [address] [place], [address] Calcium [Mass/Vol] 7.5 mg/dL Low 7.6-11.0 [facility] Comment on above: Performed By: #### L 506.0200, L503.0106, L100.9950, L503.6030, L503.6550 #### [facility] [address] [place], [address] Chloride [Moles/Vol] 101 mmol/L Normal 98-[address] [facility] Comment on above: Performed By: #### L 506.0200, L503.0106, L100.9950, L503.6030, L503.6550 #### [facility] [address] [place], [address] CO2 [Moles/Vol] 23.4 mmol/L Normal 21.0-32.0 [facility] Comment on above: Performed By: #### L 506.0200, L503.0106, L100.9950, L503.6030, L503.6550 #### [facility] [address] [place], [address] Creatinine [Mass/Vol] 0.58 mg/dL Low 0.70-1.20 [facility] Comment on above: Performed By: #### L 506.0200, L503.0106, L100.9950, L503.6030, L503.6550 #### [facility] [address] [place], [address] ECRCL 257.84 ml/min High 50-250 [facility] Comment on above: Performed By: #### L 506.0200, L503.0106, L100.9950, L503.6030, L503.6550 #### [facility] [address] [place], [address] GAP 9 Normal 5-15 [facility] Comment on above: Performed By: #### L 506.0200, L503.0106, L100.9950, L503.6030, L503.6550 #### [facility] [address] [place], [address] GFR/1.73 sq M.predicted among non-blacks MDRD (S/P/Bld) [Vol rate/Area] 121 mL/min/{1.73_m2} Normal >60 [facility] Comment on above: Result Comment: mL/m in/1.73m2 CKD-EPI Creatinine Equation (2020) Performed By: #### L 506.0200, L503.0106, L100.9950, L503.6030, L503.6550 #### [facility] [address] [place], [address] Globulin (S) [Mass/Vol] 4.2 g/dL Normal 2.2-4.2 [facility] Comment on above: Performed By: #### L 506.0200, L503.0106, L100.9950, L503.6030, L503.6550 #### [facility] [address] [place], [address] Glucose [Mass/Vol] 154 mg/dL High 70-99 [facility] Comment on above: Performed By: #### L 506.0200, L503.0106, L100.9950, L503.6030, L503.6550 #### [facility] [address] [place], [address] Potassium [Moles/Vol] 3.6 mmol/L Normal 3.3-5.1 [facility] Comment on above: Performed By: #### L 506.0200, L503.0106, L100.9950, L503.6030, L503.6550 #### [facility] [address] [place], [address] Sodium [Moles/Vol] 133 mmol/L Normal 133-145 [facility] Comment on above: Performed By: #### L 506.0200, L503.0106, L100.9950, L503.6030, L503.6550 #### [facility] [address] [place], [address] T PROT 6.3 g/dL Normal 5.9-8.4 [facility] Comment on above: Performed By: #### L 506.0200, L503.0106, L100.9950, L503.6030, L503.6550 #### [facility] [address] [place], [address] Urea nitrogen [Mass/Vol] 8 mg/dL Normal 4-19 [facility] Comment on above: Performed By: #### L 506.0200, L503.0106, L100.9950, L503.6030, L503.6550 #### [facility] [address] [place], [address] Eosinophil percentageOrdered By: Myriam Aguilar on 07-25-2025 Eosinophils/100 WBC (Bld) 5.6 % High 0-5 [facility] Immature granulocytes/100 WB C Auto (Bld)Ordered By: Myriam Aguilar on 07-25-2025 Immature granulocytes/100 WBC (Bld) 1.700 % High 0.0-0.9 [facility] Comment on above: IG% - Immature Granu locytes (promyelocytes, myelocytes and metamyelocytes) > 1% indicates that a LEFT SHIFT is Present. Laboratory - Hematology and Cell countsOrdered By: Myriam Aguilar on 07-25-2025 Anisocytosis Ql (Bld) 3+ [facility] Monocyte percentageOrdered B y: Myriam Aguilar on 07-25-2025 Monocytes/100 WBC (Bld) 19.1 % High 0-10 [facility] Neutrophil percentageOrdered By: Myriam Aguilar on 07-25-2025 Neutrophils/100 WBC (Bld) 57.6 % 47-70 [facility] Nucleated red blood cell per centageOrdered By: Myriam Aguilar on 07-25-2025 Nucleated RBC/100 WBC (Bld) [Ratio] 0 % 0-5 [facility] Ovalocyte detectionOrdered B y: Myriam Aguilar on 07-25-2025 Ovalocytes LM Ql (Bld) 1+ [facility] Urine Cultureon 07-25-2025 URC #1, 2 Below infectio n level. Urine Culture Streptococcus agalactiae (B) [place] Count <1000 Mixed Gram Positive Organisms Mixed Gram Positive Organisms MIXC Mixed contaminants. Submit a new specimen if indicated. Normal [facility] Comment on above: Performed By: #### L 501.080 #### [facility] [address] [place], [address] Bedside Glucoseon 07-24-2025 FINGERSTICK GLU 201 mg/dL High -106 [facility] Comment on above: Result Comment: PADDY GEMENT OF PATIENT CARE PER NURSING PROTOCOL Performed By: #### L 506.0200, L503.0106, L100.9950, L503.6030, L503.6550 #### [facility] [address] [place], [address] FINGERSTICK GLU 230 mg/dL High 74-106 [facility] Comment on above: Result Comment: PADDY GEMENT OF PATIENT CARE PER NURSING PROTOCOL Performed By: #### L 501.080 #### [facility] [address] [place], [address] FINGERSTICK GLU 137 mg/dL High [address] [place] [address] Comment on above: Result Comment: PADDY GEMENT OF PATIENT CARE PER NURSING PROTOCOL Performed By: #### L 500.4050, L100.0100 #### [facility] [address] [place], [address] FINGERSTICK GLU 133 mg/dL High -106 [facility] Comment on above: Result Comment: PADDY GEMENT OF PATIENT CARE PER NURSING PROTOCOL Performed By: #### L 506.0200, L503.0106, L100.9950, L503.6030, L503.6550 #### [facility] [address] [place], [address] Blood manual differential co mment interpretation (narrative result)Ordered By: Timoteo Cooper on 07-24-2025 Manual differential comment Hans (Bld) [Interp] SCANNED [facility] CBC W/Diff, Automatedon 07-15 ACANTHOCYTE RARE Normal [facility] Comment on above: Performed By: #### L 500.4050, L100.0100 #### [facility] [address] [place], [address] Anisocytosis Ql (Bld) 2+ Normal [facility] Comment on above: Performed By: #### L 500.4050, L100.0100 #### [facility] [address] [place], [address] BASO STIPPLING 1+ Normal [facility] Comment on above: Performed By: #### L 500.4050, L100.0100 #### [facility] [address] [place], [address] PLT EST SLT DEC Normal ADEQ [facility] Comment on above: Performed By: #### L 500.4050, L100.0100 #### [facility] [address] [place], [address] POLYCHROMASIA 1+ Normal [facility] Comment on above: Performed By: #### L 500.4050, L100.0100 #### [facility] [address] [place], [address] SMEAR COMMENT SCANNED Normal [facility] Comment on above: Performed By: #### L 500.4050, L100.0100 #### [facility] [address] [place], [address] Comprehensive Metabolic Prof [facility] 07-24-2025 Albumin [Mass/Vol] 2.2 g/dL Low 3.5-5.0 [facility] Comment on above: Performed By: #### L 500.4050, L100.0100 #### [facility] [address] [place], [address] Albumin/Globulin [Mass ratio] 0.6 {ratio} Low 0.9-2.4 [facility] Comment on above: Performed By: #### L 500.4050, L100.0100 #### [facility] [address] [place], [address] ALK PHOS 110 U/L Normal 40-129 [facility] Comment on above: Performed By: #### L 500.4050, L100.0100 #### [facility] [address] [place], [address] ALT [Catalytic activity/Vol] 24 U/L Normal <=46 [facility] Comment on above: Performed By: #### L 500.4050, L100.0100 #### [facility] [address] [place], [address] AST [Catalytic activity/Vol] 41 U/L High <=37 [facility] Comment on above: Performed By: #### L 500.4050, L100.0100 #### [facility] [address] [place], [address] Bilirubin [Mass/Vol] 2.01 mg/dL High 0.00-1.[address] [facility] Comment on above: Performed By: #### L 500.4050, L100.0100 #### [facility] [address] [place], [address] BUN/CRE 13.5 RATIO Normal 10-20 [facility] Comment on above: Performed By: #### L 500.4050, L100.0100 #### [facility] [address] [place], [address] Calcium [Mass/Vol] 7.5 mg/dL Low 7.6-11.0 [facility] Comment on above: Performed By: #### L 500.4050, L100.0100 #### [facility] [address] [place], [address] Chloride [Moles/Vol] 100 mmol/L Normal 98-[address] [facility] Comment on above: Performed By: #### L 500.4050, L100.0100 #### [facility] [address] [place], [address] CO2 [Moles/Vol] 23.7 mmol/L Normal 21.0-32.0 [facility] Comment on above: Performed By: #### L 500.4050, L100.0100 #### [facility] [address] [place], [address] Creatinine [Mass/Vol] 0.64 mg/dL Low 0.70-1.20 [facility] Comment on above: Performed By: #### L 500.4050, L100.0100 #### [facility] [address] [place], [address] ECRCL 233.67 ml/min Normal 50-250 [facility] Comment on above: Performed By: #### L 500.4050, L100.0100 #### [facility] [address] [place], [address] GAP 8 Normal 5-15 [facility] Comment on above: Performed By: #### L 500.4050, L100.0100 #### [facility] [address] [place], [address] GFR/1.73 sq M.predicted among non-blacks MDRD (S/P/Bld) [Vol rate/Area] 117 mL/min/{1.73_m2} Normal >60 [facility] Comment on above: Result Comment: mL/m in/1.73m2 CKD-EPI Creatinine Equation (2020) Performed By: #### L 500.4050, L100.0100 #### [facility] [address] [place], [address] Globulin (S) [Mass/Vol] 4.0 g/dL Normal 2.2-4.2 [facility] Comment on above: Performed By: #### L 500.4050, L100.0100 #### [facility] [address] [place], [address] Glucose [Mass/Vol] 146 mg/dL High 70-99 [facility] Comment on above: Performed By: #### L 500.4050, L100.0100 #### [facility] [address] [place], [address] Potassium [Moles/Vol] 3.7 mmol/L Normal 3.3-5.1 [facility] Comment on above: Performed By: #### L 500.4050, L100.0100 #### [facility] [address] [place], [address] Sodium [Moles/Vol] 131 mmol/L Low 133-145 [facility] Comment on above: Performed By: #### L 500.4050, L100.0100 #### [facility] [address] [place], [address] T PROT 6.2 g/dL Normal 5.9-8.4 [facility] Comment on above: Performed By: #### L 500.4050, L100.0100 #### [facility] [address] [place], [address] Urea nitrogen [Mass/Vol] 9 mg/dL Normal 4-19 [facility] Comment on above: Performed By: #### L 500.4050, L100.0100 #### [facility] [address] [place], [address] Erythrocyte basophilic stipp ling detectionOrdered By: Timoteo Cooper on 07-24-2025 Basophilic stippling LM Ql (Bld) 1+ [facility] Platelet estimateOrdered By: Timoteo Cooper on 07-24-2025 Platelets LM Ql (Bld) SLT DEC ADEQ [facility] Abdomen Limitedon 07-23-2025 Abdomen Limited [facility] Imaging Services [address] [place] [address] Abdomen Limited MR#: [id number] Acct: [id number] Name: ADRY,LEON ANGELA Rep #: [id number] : 1980 M 45 From: Landen nogueira MD PCP: Dr. Alis Duran MD Status: ADM IN Study: Abdomen Limited Date of Exam: 07/23/25 Exam# [id number] Ordering Dr: Timoteo Cooper MD PROCEDURE: ABDOMEN LIMITED 07/24/2025 REASON FOR EXAM: CIRRHOSIS, MILD ASCITES, POSSIBLE VARICES TECHNIQUE: Procedure Code: USABDL Modality: US Procedure: ABDOMEN LIMITED COMPARISON: None FINDINGS: Liver: Coarsened hepatic echotexture with a nodular liver contour suggestive of cirrhosis. Liver measures 16.3 cm. Gallbladder: No stones, sludge, wall thickening or tenderness. Common bile duct: Normal measuring 4 mm. . Pancreas: Visualized portions are unremarkable. The distal body and tail are obscured by bowel gas. Other: The right kidney is unremarkable. Splenomegaly. The spleen measures 16.4 cm x 6.2 cm 6.7 cm. Small amount of ascites seen in the right upper quadrant. US/Abdomen Limited IMPRESSION: Coarsened echotexture of the liver. Splenomegaly. Small amount of ascites seen in the right upper quadrant. Reading Location: [id number] CC: Dr. Alis Duran MD; Dr. Timoteo Cooper MD Banking Representative: Signed Normal [facility] Bedside Glucoseon 07-23-2025 FINGERSTICK GLU 190 mg/dL High 74-106 [facility] Comment on above: Result Comment: PADDY GEMENT OF PATIENT CARE PER NURSING PROTOCOL Performed By: #### L 506.0200, L503.0106, L100.9950, L503.6030, L503.6550 #### [facility] [address] [place], [address] FINGERSTICK GLU 228 mg/dL High 74-106 [facility] Comment on above: Result Comment: PADDY GEMENT OF PATIENT CARE PER NURSING PROTOCOL Performed By: #### L 506.0200, L503.0106, L100.9950, L503.6030, L503.6550 #### [facility] [address] [place], [address] FINGERSTICK GLU 226 mg/dL High 74-106 [facility] Comment on above: Result Comment: PADDY GEMENT OF PATIENT CARE PER NURSING PROTOCOL Performed By: #### L 501.080 #### [facility] [address] [place], [address] FINGERSTICK GLU 129 mg/dL High 74-106 [facility] Comment on above: Result Comment: PADDY GEMENT OF PATIENT CARE PER NURSING PROTOCOL Performed By: #### L 500.4050, L100.0100 #### [facility] [address] [place], [address] CBC W/Diff, Automatedon 09-0 Anisocytosis Ql (Bld) 1+ Normal [facility] Comment on above: Performed By: #### L 500.4050, L100.0100 #### [facility] [address] [place], [address] Comprehensive Metabolic Prof ilon 07-23-2025 Chloride [Moles/Vol] 101 mmol/L Normal 98-[address] [facility] Comment on above: Performed By: #### L 500.4050, L100.0100 #### [facility] [address] [place], [address] CO2 [Moles/Vol] 21.7 mmol/L Normal 21.0-32.0 [facility] Comment on above: Performed By: #### L 500.4050, L100.0100 #### [facility] [address] [place], [address] GAP 9 Normal 5-15 [facility] Comment on above: Performed By: #### L 500.4050, L100.0100 #### [facility] [address] [place], [address] Potassium [Moles/Vol] 3.8 mmol/L Normal 3.3-5.1 [facility] Comment on above: Performed By: #### L 500.4050, L100.0100 #### [facility] [address] [place], [address] Albumin [Mass/Vol] 2.1 g/dL Low 3.5-5.0 [facility] Comment on above: Performed By: #### L 500.4050, L100.0100 #### [facility] [address] [place], [address] Albumin/Globulin [Mass ratio] 0.6 {ratio} Low 0.9-2.4 [facility] Comment on above: Performed By: #### L 500.4050, L100.0100 #### [facility] [address] [place], [address] ALK PHOS 126 U/L Normal 40-129 [facility] Comment on above: Performed By: #### L 500.4050, L100.0100 #### [facility] [address] [place], [address] ALT [Catalytic activity/Vol] 24 U/L Normal <=46 [facility] Comment on above: Performed By: #### L 500.4050, L100.0100 #### [facility] [address] [place], [address] AST [Catalytic activity/Vol] 36 U/L Normal <=37 [facility] Comment on above: Performed By: #### L 500.4050, L100.0100 #### [facility] [address] [place], [address] Bilirubin [Mass/Vol] 2.12 mg/dL High 0.00-1.[address] [facility] Comment on above: Performed By: #### L 500.4050, L100.0100 #### [facility] [address] [place], [address] BUN/CRE 12.8 RATIO Normal 10-20 [facility] Comment on above: Performed By: #### L 500.4050, L100.0100 #### [facility] [address] [place], [address] Calcium [Mass/Vol] 7.5 mg/dL Low 7.6-11.0 [facility] Comment on above: Performed By: #### L 500.4050, L100.0100 #### [facility] [address] [place], [address] Creatinine [Mass/Vol] 0.70 mg/dL Normal 0.70-1.20 [facility] Comment on above: Performed By: #### L 500.4050, L100.0100 #### [facility] [address] [place], [address] ECRCL 212.39 ml/min Normal 50-250 [facility] Comment on above: Performed By: #### L 500.4050, L100.0100 #### [facility] [address] [place], [address] GFR/1.73 sq M.predicted among non-blacks MDRD (S/P/Bld) [Vol rate/Area] 114 mL/min/{1.73_m2} Normal >60 [facility] Comment on above: Result Comment: mL/m in/1.73m2 CKD-EPI Creatinine Equation (2020) Performed By: #### L 500.4050, L100.0100 #### [facility] [address] [place], [address] Globulin (S) [Mass/Vol] 3.6 g/dL Normal 2.2-4.2 [facility] Comment on above: Performed By: #### L 500.4050, L100.0100 #### [facility] [address] [place], [address] Glucose [Mass/Vol] 154 mg/dL High 70-99 [facility] Comment on above: Performed By: #### L 500.4050, L100.0100 #### [facility] [address] [place], [address] Sodium [Moles/Vol] 132 mmol/L Low 133-145 [facility] Comment on above: Performed By: #### L 500.4050, L100.0100 #### [facility] [address] [place], [address] T PROT 5.7 g/dL Low 5.9-8.4 [facility] Comment on above: Performed By: #### L 500.4050, L100.0100 #### [facility] [address] [place], [address] Urea nitrogen [Mass/Vol] 9 mg/dL Normal 4-19 [facility] Comment on above: Performed By: #### L 500.4050, L100.0100 #### [facility] [address] [place], [address] Ferritinon 07-23-2025 Ferritin [Mass/Vol] 104 ng/mL Normal 37-417 [facility] Comment on above: Performed By: #### L 506.0200, L503.0106, L100.9950, L503.6030, L503.6550 #### [facility] [address] [place], [address] Folate [Moles/volume] in Ser um or PlasmaOrdered By: Timoteo Cooper on 07-23-2025 Folate [Moles/Vol] 10.50 ng/mL 4.60-34.80 [facility] Folates,Serum (Folic Acid)on 07-23-2025 FOLATES,SERUM 10.50 ng/mL Normal 4.60-34.80 [facility] Comment on above: Performed By: #### L 506.0200, L503.0106, L100.9950, L503.6030, L503.6550 #### [facility] [address] [place], [address] International normalized rat io (INR) calculationOrdered By: Timoteo Cooper on 07-23-2025 INR Coag (Bld) [Relative time] 1.6 {INR} [facility] Iron measurement (mass/mass) Ordered By: Timoteo Cooper on 07-23-2025 Iron (Unsp spec) [Mass/Mass] 152 ug/dL 65-175 [facility] Iron+Iron Binding Capacityon 07-23-2025 Iron [Mass/Vol] 152 ug/dL Normal 65-175 [facility] Comment on above: Performed By: #### L 506.0200, L503.0106, L100.9950, L503.6030, L503.6550 #### [facility] [address] [place], [address] IRON SATURATION 57.0 High 9-55 [facility] Comment on above: Performed By: #### L 506.0200, L503.0106, L100.9950, L503.6030, L503.6550 #### [facility] [address] [place], [address] TIBC 267 ug/dL Normal 250-450 [facility] Comment on above: Performed By: #### L 506.0200, L503.0106, L100.9950, L503.6030, L503.6550 #### [facility] [address] [place], [address] UIBC 115 ug/dL Low 228-428 [facility] Comment on above: Performed By: #### L 506.0200, L503.0106, L100.9950, L503.6030, L503.6550 #### [facility] [address] [place], [address] No Panel InformationOrdered By: Timoteo Cooper on 07-23-2025 Unsaturated Iron Binding Capacity 115 ug/dL Low 228-428 [facility] Prothrombin Time w/INRon INR Coag (PPP) [Relative time] 1.6 {INR} Normal [facility] Comment on above: Performed By: #### L 500.4050, L100.0100 #### [facility] [address] [place], [address] PT Coag (PPP) [Time] 19.8 s High 11.7-14.[address] [facility] Comment on above: Performed By: #### L 500.4050, L100.0100 #### [facility] [address] [place], [address] Prothrombin timeOrdered By: Timoteo Cooper on 07-23-2025 PT Coag (PPP) [Time] 19.8 s High 11.7-14.[address] [facility] Retic Panelon 07-23-2025 IM RET FRACTION 38.50 High 3.00-15.90 [facility] Comment on above: Performed By: #### L 506.0200, L503.0106, L100.9950, L503.6030, L503.6550 #### [facility] [address] [place], [address] RET-HE 30.2 pg Normal 30-35 [facility] Comment on above: Performed By: #### L 506.0200, L503.0106, L100.9950, L503.6030, L503.6550 #### [facility] [address] [place], [address] Retic Count 3.89 High 0.5-1.5 [facility] Comment on above: Performed By: #### L 506.0200, L503.0106, L100.9950, L503.6030, L503.6550 #### [facility] [address] [place], [address] Reticulocyte hemoglobin equi valent (RET-He) measurementOrdered By: Timoteo Cooper on 07-23-2025 Hemoglobin (Reticulocytes) [Entitic mass] 30.2 pg 30-35 [facility] Reticulocytes Auto (Bld) [#/ Vol]Ordered By: Timoteo Cooper on 07-23-2025 Reticulocytes/100 RBC (Bld) 3.89 % High 0.5-1.5 [facility] Serum or plasma ferritin shelby surement (mass/volume)Ordered By: Timoteo Cooper on 07-23-2025 Ferritin [Mass/Vol] 104 ng/mL 37-417 [facility] Serum or plasma iron saturat ion measurement (mass fraction)Ordered By: Timoteo Cooper on 07-23-2025 Iron saturation [Mass fraction] 57.0 % High 9-55 [facility] Vitamin B12on 07-23-2025 Cobalamin (Vitamin B12) [Mass/Vol] 1344 pg/mL High 180-914 [facility] Comment on above: Performed By: #### L 506.0200, L503.0106, L100.9950, L503.6030, L503.6550 #### [facility] [address] [place], [address] Vitamin B12 ser/plasOrdered By: Timoteo Cooper on 07-23-2025 Cobalamin (Vitamin B12) [Mass/Vol] 1344 pg/mL High 180-914 [facility] Bedside Glucoseon 07-22-2025 FINGERSTICK GLU 194 mg/dL High 74-106 [facility] Comment on above: Result Comment: PADDY GEMENT OF PATIENT CARE PER NURSING PROTOCOL Performed By: #### L 501.080 #### [facility] [address] [place], [address] FINGERSTICK GLU 236 mg/dL High 74-106 [facility] Comment on above: Result Comment: PADDY GEMENT OF PATIENT CARE PER NURSING PROTOCOL Performed By: #### L 501.080 #### [facility] [address] [place], [address] FINGERSTICK GLU 214 mg/dL High 74-106 [facility] Comment on above: Result Comment: PADDY GEMENT OF PATIENT CARE PER NURSING PROTOCOL Performed By: #### L 506.0200, L503.0106, L100.9950, L503.6030, L503.6550 #### [facility] [address] [place], [address] FINGERSTICK GLU 149 mg/dL High 74-106 [facility] Comment on above: Result Comment: PADDY GEMENT OF PATIENT CARE PER NURSING PROTOCOL Performed By: #### L 506.0200, L503.0106, L100.9950, L503.6030, L503.6550 #### [facility] [address] [place], [address] CBC W/Diff, Automatedon 09-0 Anisocytosis Ql (Bld) 2+ Normal [facility] Comment on above: Performed By: #### L 506.0200, L503.0106, L100.9950, L503.6030, L503.6550 #### [facility] [address] [place], [address] OVALOCYTE 1+ Normal [facility] Comment on above: Performed By: #### L 506.0200, L503.0106, L100.9950, L503.6030, L503.6550 #### [facility] [address] [place], [address] PLT EST SLT DEC Normal ADEQ [facility] Comment on above: Performed By: #### L 506.0200, L503.0106, L100.9950, L503.6030, L503.6550 #### [facility] [address] [place], [address] POLYCHROMASIA 1+ Normal [facility] Comment on above: Performed By: #### L 506.0200, L503.0106, L100.9950, L503.6030, L503.6550 #### [facility] [address] [place], [address] Calculated very low density lipoprotein (VLDL) cholesterol measurementOrdered By: Tmioteo Cooper on 07-22-2025 Calculated very low density lipoprotein (VLDL) cholesterol measurement 21 mg/dL 5-40 [facility] Comprehensive Metabolic Prof ilon 07-22-2025 Albumin [Mass/Vol] 2.2 g/dL Low 3.5-5.0 [facility] Comment on above: Performed By: #### L 506.0200, L503.0106, L100.9950, L503.6030, L503.6550 #### [facility] [address] [place], [address] Albumin/Globulin [Mass ratio] 0.6 {ratio} Low 0.9-2.4 [facility] Comment on above: Performed By: #### L 506.0200, L503.0106, L100.9950, L503.6030, L503.6550 #### [facility] [address] [place], [address] ALK PHOS 131 U/L High 40-129 [facility] Comment on above: Performed By: #### L 506.0200, L503.0106, L100.9950, L503.6030, L503.6550 #### [facility] [address] [place], [address] ALT [Catalytic activity/Vol] 26 U/L Normal <=46 [facility] Comment on above: Performed By: #### L 506.0200, L503.0106, L100.9950, L503.6030, L503.6550 #### [facility] [address] [place], [address] AST [Catalytic activity/Vol] 36 U/L Normal <=37 [facility] Comment on above: Performed By: #### L 506.0200, L503.0106, L100.9950, L503.6030, L503.6550 #### [facility] [address] [place], [address] Bilirubin [Mass/Vol] 2.57 mg/dL High 0.00-1.[address] [facility] Comment on above: Performed By: #### L 506.0200, L503.0106, L100.9950, L503.6030, L503.6550 #### [facility] [address] [place], [address] BUN/CRE 12.3 RATIO Normal 10-20 [facility] Comment on above: Performed By: #### L 506.0200, L503.0106, L100.9950, L503.6030, L503.6550 #### [facility] [address] [place], [address] Calcium [Mass/Vol] 7.7 mg/dL Normal 7.6-11.0 [facility] Comment on above: Performed By: #### L 506.0200, L503.0106, L100.9950, L503.6030, L503.6550 #### [facility] [address] [place], [address] Chloride [Moles/Vol] 100 mmol/L Normal 98-[address] [facility] Comment on above: Performed By: #### L 506.0200, L503.0106, L100.9950, L503.6030, L503.6550 #### [facility] [address] [place], [address] CO2 [Moles/Vol] 22.4 mmol/L Normal 21.0-32.0 [facility] Comment on above: Performed By: #### L 506.0200, L503.0106, L100.9950, L503.6030, L503.6550 #### [facility] [address] [place], [address] Creatinine [Mass/Vol] 0.69 mg/dL Low 0.70-1.20 [facility] Comment on above: Performed By: #### L 506.0200, L503.0106, L100.9950, L503.6030, L503.6550 #### [facility] [address] [place], [address] ECRCL 215.46 ml/min Normal 50-250 [facility] Comment on above: Performed By: #### L 506.0200, L503.0106, L100.9950, L503.6030, L503.6550 #### [facility] [address] [place], [address] GAP 7 Normal 5-15 [facility] Comment on above: Performed By: #### L 506.0200, L503.0106, L100.9950, L503.6030, L503.6550 #### [facility] [address] [place], [address] GFR/1.73 sq M.predicted among non-blacks MDRD (S/P/Bld) [Vol rate/Area] 115 mL/min/{1.73_m2} Normal >60 [facility] Comment on above: Result Comment: mL/m in/1.73m2 CKD-EPI Creatinine Equation (2020) Performed By: #### L 506.0200, L503.0106, L100.9950, L503.6030, L503.6550 #### [facility] [address] [place], [address] Globulin (S) [Mass/Vol] 3.8 g/dL Normal 2.2-4.2 [facility] Comment on above: Performed By: #### L 506.0200, L503.0106, L100.9950, L503.6030, L503.6550 #### [facility] [address] [place], [address] Glucose [Mass/Vol] 167 mg/dL High 70-99 [facility] Comment on above: Performed By: #### L 506.0200, L503.0106, L100.9950, L503.6030, L503.6550 #### [facility] [address] [place], [address] Potassium [Moles/Vol] 4.0 mmol/L Normal 3.3-5.1 [facility] Comment on above: Performed By: #### L 506.0200, L503.0106, L100.9950, L503.6030, L503.6550 #### [facility] [address] [place], [address] Sodium [Moles/Vol] 130 mmol/L Low 133-145 [facility] Comment on above: Performed By: #### L 506.0200, L503.0106, L100.9950, L503.6030, L503.6550 #### [facility] [address] [place], [address] T PROT 6.0 g/dL Normal 5.9-8.4 [facility] Comment on above: Performed By: #### L 506.0200, L503.0106, L100.9950, L503.6030, L503.6550 #### [facility] [address] [place], [address] Urea nitrogen [Mass/Vol] 8 mg/dL Normal 4-19 [facility] Comment on above: Performed By: #### L 506.0200, L503.0106, L100.9950, L503.6030, L503.6550 #### [facility] [address] [place], [address] Echo Complete W/ Contraston 07-22-2025 Echo Complete W/ Contrast [facility] [address] [place] [address] Echo Complete W/ Contrast 07/22/25825 MR#: [id number] Acct: [id number] Name: LEON RIDER Rep #: [id number] : 1980 45 From: Rosalee Kirby MD Attending Dr: Dr. Timoteo Cooper MD Status: ADM IN Ordering Dr: Timoteo Cooper MD Date: 07/22/25 Location: [facility] Sex: M C Admitted: 07/21/25 Reason For Study Reason For Study: SOB Procedure This was a 2D Doppler, Color Flow transthoracic echocardiogram. The study was technically difficult. Contrast injection was performed. Exam performed portable in patient room. Left Ventricle Mild concentric left ventricular hypertrophy. Mildly dilated left ventricle. Inferior hypokinesis. Estimated LVEF 55%. Stage I diastolic dysfunction. Right Ventricle Normal right ventricle. Atria The left and right atria are normal. Mitral Valve Mild (1+) posteriorly directed mitral valve insufficiency. Tricuspid Valve Trivial tricuspid valve insufficiency. Unable to estimate RV systolic pressure due to insufficient tricuspid regurgitant envelope. Aortic Valve Trileaflet aortic valve. Mildly thickened leaflets. Mean peak gradient 8 mmHg. Pulmonic Valve Trivial pulmonic valve insufficiency. Great Vessels Normal sized aortic root. Pericardium/Pleural No pericardial effusion. Medication Diluted definity 2ml given slow IV push to enhance endocardial definition. MMode/2D Measurements Calculations LVIDd: 6.1 cm IVSd: 1.3 cm LVOT diam: 2.0 cm LVIDs: 4.0 cm LVPWd: 1.4 cm FS: 33.9 % LVOT area: 3.2 cm2 Ao root diam: 3.8 cm LAV(MOD-bp): 64.7 ml LVAd ap4: 51.2 cm2 LA dimension: 4.0 cm LAV(MOD-bp) Indexed: 23.2 ml/m2 LVLd ap4: 10.8 cm LAV(MOD-sp2): 59.8 ml EDV(MOD-sp4): 198.0 ml LAV(MOD-sp4): 65.9 ml EDV(sp4-el): 206.3 ml LVAs ap4: 29.5 cm2 LVLs ap4: 9.2 cm ESV(MOD-sp4): 77.2 ml ESV(sp4-el): 79.9 ml EF(MOD-sp4): 61.0 % EF(sp4-el): 61.3 % SV(MOD-sp4): 120.8 ml SV(sp4-el): 126.4 ml LA A4 area: 22.6 cm2 SI(MOD-sp4): 43.4 ml/m2 LA dimension(2D): 4.4 cm RA A4 area: 21.0 cm2 Doppler Measurements Calculations Lat Peak E' Berhane: 17.5 cm/sec Med Peak E' Berhane: 15.5 cm/sec MV V2 max: 190.7 cm/sec MV max P.6 mmHg MV V2 mean: 132.5 cm/sec MV mean P.8 mmHg MV V2 VTI: 45.5 cm Ao V2 max: 197.9 cm/sec PA V2 max: 136.2 cm/sec Ao max P.7 mmHg PA V2 mean: 101.2 cm/sec Ao V2 mean: 134.4 cm/sec Ao mean P.2 mmHg Ao V2 VTI: 35.3 cm ECHO/Echo Complete W/ Contrast Interpretation Summary Mild concentric left ventricular hypertrophy. Mildly dilated left ventricle. Mild (1+) posteriorly directed mitral valve insufficiency. Trileaflet aortic valve. Mildly thickened leaflets. Mean peak gradient 8 mmHg. The study was technically difficult. Inferior hypokinesis. Estimated LVEF 55%. Stage I diastolic dysfunction. Ordering Physician: Timoteo Cooper Referring Physician: ALIS DURAN Performed By: Jessica Wright RCS 07/22/251044 Date Rosalee Kirby MD CC: Dr. Alis Duran MD; Dr. Timoteo Cooper MD Date Dictated: 07/22/25825 Date Transcribed: 07/22/251044 Banking Representative: Signed Normal [facility] Echocardiogram study reportO rdered By: Rosalee Kirby on 07-22-2025 Study report [facility] [address] [place] [address] Echo Complete W/ Contrast 07/22/25 0826 MR#: [id number] Acct: [id number] Name: LEON RIDER Rep #:[id number] : 1980 45 From: Rosalee Kirby MD Attending Dr: Dr. Timoteo Cooper MD Status: ADM IN Ordering Dr: Timoteo Cooper MD Date: 0 07/22/25 Location: [facility] Sex: M C Admitted: 07/21/25 Reason For Study Reason For Study: SOB Procedure This was a 2D Doppler, Color Flow transthoracic echocardiogram. The study was technically difficult. Contrast injection was performed. Exam performed portable in patient room. Left Ventricle Mild concentric left ventricular hypertrophy. Mildly dilated left ventricle. Inferior hypokinesis. Estimated LVEF 55%. Stage I diastolic dysfunction. Right Ventricle Normal right ventricle. Atria The left and right atria are normal. Mitral Valve Mild (1+) posteriorly directed mitral valve insufficiency. Tricuspid Valve Trivial tricuspid valve insufficiency. Unable to estimate RV systolic pressure due to insufficient tricuspid regurgitant envelope. Aortic Valve Trileaflet aortic valve. Mildly thickened leaflets. Mean peak gradient 8 mmHg. Pulmonic Valve Trivial pulmonic valve insufficiency. Great Vessels Normal sized aortic root. Pericardium/Pleural No pericardial effusion. Medication Diluted definity 2ml given slow IV push to enhance endocardial definition. MMode/2D Measurements & Calculations LVIDd: 6.1 cm IVSd: 1.3 cm LVOT diam: 2.0 cm LVIDs: 4.0 cm LVPWd: 1.4 cm FS: 33.9 % LVOT area: 3.2 cm2 Ao root diam: 3.8 cm LAV(MOD-bp): 64.7 ml LVAd ap4: 51.2 cm2 LA dimension: 4.0 cm LAV(MOD-bp) Indexed: 23.2 ml/m2 LVLd ap4: 10.8 cm LAV(MOD-sp2): 59.8 ml EDV(MOD-sp4): 198.0 ml LAV(MOD-sp4): 65.9 ml EDV(sp4-el): 206.3 ml LVAs ap4: 29.5 cm2 LVLs ap4: 9.2 cm ESV(MOD-sp4): 77.2 ml ESV(sp4-el): 79.9 ml EF(MOD-sp4): 61.0 % EF(sp4-el): 61.3 % SV(MOD-sp4): 120.8 ml SV(sp4-el): 126.4 ml LA A4 area: 22.6 cm2 SI(MOD-sp4): 43.4 ml/m2 LA dimension(2D): 4.4 cm RA A4 area: 21.0 cm2 Doppler Measurements & Calculations Lat Peak E' Berhane: 17.5 cm/sec Med Peak E' Berhane: 15.5 cm/sec MV V2 max: 190.7 cm/sec MV max P.6 mmHg MV V2 mean: 132.5 cm/sec MV mean P.8 mmHg MV V2 VTI: 45.5 cm Ao V2 max: 197.9 cm/sec PA V2 max: 136.2 cm/sec Ao max P.7 mmHg PA V2 mean: 101.2 cm/sec Ao V2 mean: 134.4 cm/sec Ao mean P.2 mmHg Ao V2 VTI: 35.3 cm ECHO/Echo Complete W/ Contrast Interpretation Summary Mild concentric left ventricular hypertrophy. Mildly dilated left ventricle. Mild (1+) posteriorly directed mitral valve insufficiency. Trileaflet aortic valve. Mildly thickened leaflets. Mean peak gradient 8 mmHg. The study was technically difficult. Inferior hypokinesis. Estimated LVEF 55%. Stage I diastolic dysfunction. Ordering Physician: Timoteo Cooper Referring Physician: ALIS DURAN Performed By: Jessica Wright RCS 07/22/25 1045 Date _ Rosalee Kirby MD CC: Dr. Alis Duran MD; Dr. Timoteo Cooper MD ~ Date Dictated: 07/22/25825 Date Transcribed: 07/22/251044 Banking Representative: Signed [facility] Work Phone: Electrocardiogram reportOrde red By: Jocelyne Henley on 07-22-2025 EKG study [facility] Cardiovascular Services [address] [place] [address] 12 Lead EKG 07/21/25 0941 MR#: [id number] Acct: [id number] Name: LEON RIDER Rep #:[id number] : 1980 45 From: Jocelyne cruz MD Attending Dr: Dr. Timoteo Cooper MD Status: ADM IN Ordering Dr: Denice Leal DO Date: 0 07/21/25 Location: [facility] Sex: M C Admitted: 07/21/25 Test Reason : GENERAL Blood Pressure : */* mmHG Vent. Rate : 101 BPM Atrial Rate : 101 BPM P-R Int : 162 ms QRS Dur : 82 ms QT Int : 370 ms P-R-T Axes : 71 4 82 degrees QTcB Int : 479 ms Sinus tachycardia Nonspecific T wave abnormality Abnormal ECG Confirmed by Jocelyne Henley ([id number]), manager editorial CARLITOS MORGAN ([id number]) on 07/22/2025 9:49:19 AM Referred By: Confirmed By: Jocelyne Henley 07/22/25 0949 Date _ Jocelyne Henley MD CC: Dr. Alis Duran MD; Dr. Denice Leal DO; Dr. Timoteo Cooper MD ~ Signed [facility] Other Hemoglobin A1con 07-22-2025 HbA1c (Bld) [Mass fraction] 6.1 % High <=5.6 [facility] Comment on above: Result Comment: Norm al < 5.7 % Prediabetic 5.7 - 6.4 % Diabetic >or= 6.5 % Please note range changes. Performed By: #### L 506.0200, L503.0106, L100.9950, L503.6030, L503.6550 #### [facility] [address] [place], [address] Hemoglobin A1c percentageOrd ered By: Timoteo Cooper on 07-22-2025 HbA1c (Bld) [Mass fraction] 6.1 % High <5.7 [facility] Comment on above: Normal < 5.7 % Predi abetic 5.7 - 6.4 % Diabetic >or= 6.5 % Please note range changes. LDL calc ser/plasOrdered By: Timoteo Cooper on 07-22-2025 Cholesterol in LDL [Mass/Vol] 68 mg/dL [facility] Comment on above: Zmbgjpyfda=674-171 m g/dL & Higher Vblf=970 mg/dL or greaterFriedwald Equation for LDL-C Lipid Profileon 07-22-2025 CHOL:HDL 5.63 Normal [facility] Comment on above: Performed By: #### L 506.0200, L503.0106, L100.9950, L503.6030, L503.6550 #### [facility] [address] [place], [address] Cholesterol [Mass/Vol] 108 mg/dL Normal <=200 [facility] Comment on above: Result Comment: Chol esterol level, Desirable <200 mg/dL Borderline high cholesterol 200-239 mg/dL High cholesterol >=240 mg/dL Recommendations of the NCEP Adult Treatment Panel for the following risk-cutoff thresholds for the [place] population. Performed By: #### L 506.0200, L503.0106, L100.9950, L503.6030, L503.6550 #### [facility] [address] [place], [address] Cholesterol in HDL [Mass/Vol] 19 mg/dL Low [facility] Comment on above: Result Comment: Cristina onal Cholesterol Education Program (NCEP) guidelines: <40 mg/dL: Low HDL-cholesterol (major risk factor for CHD) >= 60 mg/dL: High HDL-cholesterol (negative risk factor for CHD) HDL-cholesterol is affected by a number of factors, e.g. smoking, exercise, hormones, sex and age. Performed By: #### L 506.0200, L503.0106, L100.9950, L503.6030, L503.6550 #### [facility] [address] [place], [address] Cholesterol in LDL [Mass/Vol] 68 mg/dL Normal [facility] Comment on above: Result Comment: Bord desdmj=961-317 mg/dL Higher Xmve=533 mg/dL or greater Friedwald Equation for LDL-C Performed By: #### L 506.0200, L503.0106, L100.9950, L503.6030, L503.6550 #### [facility] [address] [place], [address] Cholesterol in VLDL [Mass/Vol] 21 mg/dL Normal 5-40 [facility] Comment on above: Performed By: #### L 506.0200, L503.0106, L100.9950, L503.6030, L503.6550 #### [facility] [address] [place], [place], [id number] (209) Triglyceride [Mass/Vol] 105 mg/dL Normal [facility] Comment on above: Result Comment: The drugs N-Acetylcysteine and Metamizole may falsely depress this assay. Normal range: <150 mg/dL Borderline High: 150-199 mg/dL High: 200-499 mg/dL Very High: >500 mg/dL Performed By: #### L 506.0200, L503.0106, L100.9950, L503.6030, L503.6550 #### [facility] [address] [place], [place], [id number] (245) Screening total cholesterol/ high density lipoprotein (HDL) cholesterol ratioOrdered By: Timoteo Cooper on 07-22-2025 Cholesterol.total/Helena sterol in HDL [Mass ratio] 5.63 {ratio} [facility] Serum or plasma cholesterol in HDL measurement (mass/volume)Ordered By: Timoteo Cooper on 07-22-2025 Cholesterol in HDL [Mass/Vol] 19 mg/dL Low >40 [facility] Comment on above: National Cholesterol Education Program (NCEP) guidelines:<40 mg/dL: Low HDL-cholesterol (major risk factor for CHD)>= 60 mg/dL: High HDL-cholesterol (negative risk factor for CHD)HDL-cholesterol is affected by a number of factors, e.g. smoking, exercise, hormones, sex and age. Serum or plasma cholesterol measurement (mass/volume)Ordered By: Timoteo Cooper on 07-22-2025 Cholesterol [Mass/Vol] 108 mg/dL <201 [facility] Comment on above: Cholesterol level, D esirable <200 mg/dLBorderline high cholesterol 200-239 mg/dLHigh cholesterol >=240 mg/dLRecommendations of the NCEP Adult Treatment Panel for the following risk-cutoff thresholds for the [place] population. TSH DL <= 0.005 mIU/L QnOrde red By: Timoteo Cooper on 07-22-2025 TSH Qn 1.380 uIU/mL 0.300-4.20 0 [facility] Thyroid Stim Hormone (TSH)on 07-22-2025 TSH 1.380 uIU/mL Normal 0.300-4.20 0 [facility] Comment on above: Performed By: #### L 506.0200, L503.0106, L100.9950, L503.6030, L503.6550 #### [facility] [address] [place], [address] Triglycerides measurementOrd ered By: Timoteo Cooper on 07-22-2025 Triglyceride [Mass/Vol] 105 mg/dL <199 [facility] Comment on above: The drugs N-Acetylcy steine and Metamizole may falsely depress this assay. Normal range: <150 mg/dLBorderline High: 150-199 mg/dLHigh: 200-499 mg/dLVery High: >500 mg/dL 12 Lead EKGon 07-21-2025 12 Lead EKG [facility] Cardiovascular Services [address] [place] [address] 12 Lead EKG 07/21/25 0941 MR#: [id number] Acct: [id number] Name: LEON RIDER Rep #: [id number] : 1980 45 From: Jocelyne Henley MD Attending Dr: Dr. Timoteo Cooper MD Status: ADM IN Ordering Dr: Denice Leal DO Date: 07/21/25 Location: [facility] Sex: M C Admitted: 07/21/25 Test Reason : GENERAL Blood Pressure : */* mmHG Vent. Rate : 101 BPM Atrial Rate : 101 BPM P-R Int : 162 ms QRS Dur : 82 ms QT Int : 370 ms P-R-T Axes : 71 4 82 degrees QTcB Int : 479 ms Sinus tachycardia Nonspecific T wave abnormality Abnormal ECG Confirmed by Jocelyne Henley ([id number]), manager editorial CARLITOS MORGAN ([id number]) on 07/22/2025 9:49:19 AM Referred By: Confirmed By: Jocelyne Henley 07/22/2549 Date Jocelyne Henley MD CC: Dr. Alis Duran MD; Dr. Denice Leal DO; Dr. Timoteo Cooper MD Signed Normal [facility] Absolute lymphocyte countOrd ered By: Denice Leal on 07-21-2025 Lymphocytes Auto (Unsp spec) [#/Vol] 0.97 10*3/uL 0.83-4.51 [facility] Absolute neutrophil countOrd ered By: Denice Leal on 07-21-2025 Neutrophils (Bld) [#/Vol] 6.6 10*3/uL 2.0-7.7 [facility] Activated partial thrombopla stin time (aPTT) in platelet poor plasma by coagulation aOrdered By: Denice Leal on 07-21-2025 aPTT Coag (PPP) [Time] 39.4 s High 24.1-36.2 [facility] Anion gap in Serum or Plasma Ordered By: Denice Leal on 07-21-2025 Anion gap [Moles/Vol] 12 mmol/L 5-15 [facility] Automated lymphocyte count a s percentage of total leukocytesOrdered By: Denice Leal on 07-21-2025 Lymphocytes/100 WBC Auto (Unsp spec) 10.4 % Low 19-41 [facility] BUN/creatinine ratioOrdered By: Denice Leal on 07-21-2025 Urea nitrogen/Creatinine [Mass ratio] 12.9 mg/mg 10-20 [facility] Basophil percentageOrdered B y: Denice Leal on 07-21-2025 Basophils/100 WBC (Bld) 0.5 % 0-1 [facility] Bedside Glucoseon 07-21-2025 FINGERSTICK GLU 165 mg/dL High 74-106 [facility] Comment on above: Result Comment: PADDY GEMENT OF PATIENT CARE PER NURSING PROTOCOL Performed By: #### L 506.0200, L503.0106, L100.9950, L503.6030, L503.6550 #### [facility] [address] [place], [address] FINGERSTICK GLU 213 mg/dL High 74-106 [facility] Comment on above: Result Comment: PADDY GEMENT OF PATIENT CARE PER NURSING PROTOCOL Performed By: #### L 500.4050, L100.0100 #### [facility] [address] [place], [address] Bilirubin Test strip Ql (U)O rdered By: Denice Leal on 07-21-2025 Bilirubin Ql (U) 1 mg/dL High Negative [facility] Comment on above: COLOR OF URINE MAY A FFECT DIPSTICK RESULTS. Bilirubin directOrdered By: Timoteo Cooper on 07-21-2025 Bilirubin.direct [Mass/Vol] 1.79 mg/dL High 0.00-0.30 [facility] Bilirubin, Directon 07-21-20 25 Bilirubin.direct [Mass/Vol] 1.79 mg/dL High 0.00-0.30 [facility] Comment on above: Performed By: #### L 506.0200, L503.0106, L100.9950, L503.6030, L503.6550 #### [facility] [address] [place], [address] Bilirubin, totalOrdered By: Denice Leal on 07-21-2025 Bilirubin [Mass/Vol] 3.82 mg/dL High 0.00-1.[address] [facility] Blood cultureOrdered By: Hilaria Leal on 07-21-2025 Bacteria identified Cx Nom (Bld) No growth in 5 days. [facility] Blood manual differential co mment interpretation (narrative result)Ordered By: Denice Leal on 09-07-2025 Manual differential comment Hans (Bld) [Interp] SCANNED [facility] Blood polychromasia detectio n by light microscopyOrdered By: Denice Leal on 07-21-2025 Polychromasia LM Ql (Bld) 1+ [facility] CBC W/Diff, Automatedon MICROCYTIC 1+ Normal [facility] Comment on above: Performed By: #### L 499.0043 #### [facility] [address] [place], [address] POLYCHROMASIA 1+ Normal [facility] Comment on above: Performed By: #### L 499.0043 #### [facility] [address] [place], [address] Anisocytosis Ql (Bld) 2+ Normal [facility] Comment on above: Performed By: #### L 499.0043 #### [facility] [address] [place], [address] TARGET CELLS 1+ Normal [facility] Comment on above: Performed By: #### L 499.0043 #### [facility] [address] [place], [address] SMEAR COMMENT SCANNED Normal [facility] Comment on above: Performed By: #### L 499.0043 #### [facility] [address] [place], [address] CTA Chest W/WO Contraston CTA Chest W/WO Contrast [facility] Imaging Services [address] [place] [address] CTA Chest W/WO Contrast MR#: [id number] Acct: [id number] Name: LEON RIDER Rep #: [id number] : 1980 M 45 From: Jocelyne Salinas MD PCP: Dr. Alis Duran MD Status: REG ER Study: CTA Chest W/WO Contrast Date of Exam: 07/21/25 Exam# [id number] Ordering Dr: Godman,Denice DO PROCEDURE: CTA CHEST W/WO CONTRAST 07/21/2025 REASON FOR EXAM: SOB, ELEVATED DIMER TECHNIQUE: Procedure Code: CTCTACHWW Modality: CT Procedure: CTA CHEST W/WO CONTRAST Multiplanar Sagittal and Coronal images were obtained. CONTRAST: Isovue 370 VOLUME: 100 mL One or more dose reduction techniques were used (e.g., Automated exposure control, adjustment of the mA and/or kV according to patient size, use of iterative reconstruction technique). RADIATION DOSE SUMMARY: CTDlvol: 62 mGy DLP: 1140 mGycm COMPARISON: None. # of known CTs in the past 12 months: 0 # of known Cardiac Nuclear Medicine Studies in the past 12 months: 0 FINDINGS: Thyroid gland: Negative. Lungs: Scattered ground-glass attenuation interstitial prominence both lungs. No pulmonary nodules or masses. Pleura: Negative for pleural effusion or pneumothorax. Airways: Imaged bronchi and trachea negative. Mediastinum: Several upper limits of normal aortopulmonary window lymph node. Subcarinal fullness 13 mm. No definitive hilar lesion. Lymph nodes: No axillary adenopathy. Heart and Vasculature: Pulmonary arteries adequately opacify with intra luminal contrast. No thrombus. Heart normal size. Negative for vascular calcifications of the thoracic aorta. Coronary Artery Calcifications: Mild vascular calcifications of the coronary arteries Upper Abdomen: Cirrhosis of the liver which is nodular and shrunken. Small amount of ascites. Hardware: None. Bones: Age-appropriate degenerative changes of the thoracic spine. CT/CTA Chest W/WO Contrast IMPRESSION: Negative for pulmonary embolus.. Mild interstitial edema. Mild mediastinal adenopathy. Cirrhosis. Reading Location: [id number] CC: Dr. Alis Duran MD; Dr. Denice Leal DO Banking Representative: Signed Normal [facility] Carbon dioxide, total [Moles /volume] in Central venous bloodOrdered By: Denice Leal on 07-21-2025 CO2 [Moles/Vol] 17.8 mmol/L Low 21.0-32.0 [facility] Chloride assayOrdered By: Fransico Leal on 07-21-2025 Chloride [Moles/Vol] 97 mmol/L Low 98-[address] [facility] Comprehensive Metabolic Prof ilon 07-21-2025 Albumin [Mass/Vol] 2.5 g/dL Low 3.5-5.0 [facility] Comment on above: Performed By: #### L 499.0043 #### [facility] [address] [place], [address] Albumin/Globulin [Mass ratio] 0.6 {ratio} Low 0.9-2.4 [facility] Comment on above: Performed By: #### L 499.0043 #### [facility] [address] [place], [address] ALK PHOS 109 U/L Normal 40-129 [facility] Comment on above: Performed By: #### L 499.0043 #### [facility] [address] [place], [address] ALT [Catalytic activity/Vol] 33 U/L Normal <=46 [facility] Comment on above: Performed By: #### L 499.0043 #### [facility] [address] [place], [address] AST [Catalytic activity/Vol] 42 U/L High <=37 [facility] Comment on above: Performed By: #### L 499.0043 #### [facility] [address] [place], [address] Bilirubin [Mass/Vol] 3.82 mg/dL High 0.00-1.[address] [facility] Comment on above: Performed By: #### L 499.0043 #### [facility] [address] [place], [address] BUN/CRE 12.9 RATIO Normal 10-20 [facility] Comment on above: Performed By: #### L 499.0043 #### [facility] [address] [place], [address] Calcium [Mass/Vol] 8.1 mg/dL Normal 7.6-11.0 [facility] Comment on above: Performed By: #### L 499.0043 #### [facility] [address] [place], [address] Chloride [Moles/Vol] 97 mmol/L Low 98-[address] [facility] Comment on above: Performed By: #### L 499.0043 #### [facility] [address] [place], [address] CO2 [Moles/Vol] 17.8 mmol/L Low 21.0-32.0 [facility] Comment on above: Performed By: #### L 499.0043 #### [facility] [address] [place], [address] Creatinine [Mass/Vol] 0.66 mg/dL Low 0.70-1.20 [facility] Comment on above: Performed By: #### L 499.0043 #### [facility] [address] [place], [address] GAP 12 Normal 5-15 [facility] Comment on above: Performed By: #### L 499.0043 #### [facility] [address] [place], [address] GFR/1.73 sq M.predicted among non-blacks MDRD (S/P/Bld) [Vol rate/Area] 117 mL/min/{1.73_m2} Normal >60 [facility] Comment on above: Result Comment: mL/m in/1.73m2 CKD-EPI Creatinine Equation (2020) Performed By: #### L 499.0043 #### [facility] [address] [place], [address] Globulin (S) [Mass/Vol] 4.1 g/dL Normal 2.2-4.2 [facility] Comment on above: Performed By: #### L 499.0043 #### [facility] [address] [place], [address] Glucose [Mass/Vol] 168 mg/dL High 70-99 [facility] Comment on above: Performed By: #### L 499.0043 #### [facility] [address] [place], [address] Potassium [Moles/Vol] 3.7 mmol/L Normal 3.3-5.1 [facility] Comment on above: Performed By: #### L 499.0043 #### [facility] [address] [place], [address] Sodium [Moles/Vol] 127 mmol/L Low 133-145 [facility] Comment on above: Performed By: #### L 499.0043 #### [facility] [address] [place], [address] T PROT 6.6 g/dL Normal 5.9-8.4 [facility] Comment on above: Performed By: #### L 499.0043 #### [facility] [address] [place], [address] Urea nitrogen [Mass/Vol] 8 mg/dL Normal 4-19 [facility] Comment on above: Performed By: #### L 499.0043 #### [facility] [address] [place], [address] Emergency Department Summary on 07-21-2025 Emergency Department Summary [facility] Medical Records Department [address] [place] [address] Emergency Department Summary 07/21/25 MR#: [id number] Acct: [id number] Name: LEON RIDER Rep #: [id number] : 1980 45 From: Denice Leal DO PCP: Dr. 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 Patient states that 8 PM last night he developed dull ache pressure in his chest. Lasted for couple minutes. He was working at the [employer] at that time. He returned that evening around 9:30 PM but it also stopped spontaneously. Today he is continued to have this sensation. He also has been winded even putting his pants on which is new for him. He notes for the past few months he has been having exercise intolerance and dyspnea on exertion. He also is been having worsening pain of his right lower leg for the past 2 to 3 days. States it is a constant dull ache when he touches it it becomes stabbing and is worse with walking or standing. He had an elevated outpatient D-dimer and venous duplex obtained 2 days ago. D-dimer was elevated however his venous duplex was negative. He has been having about a week of URI symptoms including sore throat and cough. Has been having some chills. Does have chronic swelling of his legs is not sure if it is any worse than normal. De nies any known cardiac history. Denies a history of DVT or PE. Does not take any medications this morning. No other complaints or concerns reported this time [facility] Medical History HTN (hypertension) Diabetes Acid reflux Rectal bleeding Hemorrhoids Home Medications ???Medication ???Instructions ???Recorded ???Last Taken ???Type furosemide 40 mg tablet 40 mg PO QDAY diuretic 01/28/25 Un known History lisinopril 5 mg tablet 5 mg PO QDAY bp 01/28/25 Unknown H istory metformin 1,000 mg tablet 1,000 mg PO BID diabetes 01/28/25 Unknown History sitagliptin phosphate 100 mg 100 mg PO QDAY diabetes 01/28/25 U nknown History tablet (Januvia) atorvastatin 20 mg tablet 20 mg PO DAILY cholesterol 5 Unknown History omeprazole 40 mg capsule,delayed 40 mg PO DAILY stomach 07/21/25 Un known History release repaglinide 1 mg tablet 1 mg PO BID diabetes 07/21/25 Unkn own History triamterene 37.5 1 cap PO DAILY diuretic/bp 5 Unknown History mg-hydrochlorothiazide 25 mg capsule Allergy/AdvReac Type Severity Reaction Status Date / Time No Known Allergies Allergy Verified 07/21/25 09:08 Surgical History H/O umbilical hernia repair [place] teeth extracted Social History (Updated 07/21/25 @ 13:33 by Alyssa Ring) household members: spouse housing: house Smoking Status: Never smoker alcohol intake: never substance use type: does not use ROS ROS ED Constitutional Constitutional ED: Reports chills; Denies fever(s) ENT ENT ED: Reports sore throat and other Details: Nasal congestion Cardiovascular Cardiovascular: Reports chest pain; Denies palpitations or racing heartbeat Respiratory/Chest Respiratory/Chest: Reports cough, dyspnea, dyspnea on exertion and sputum Gastrointestinal Gastrointestinal: Reports nausea and other Details: Reports some mild GI symptoms/upset stomach today after eating a banana ; Denies abdominal pain Musculoskeletal Musculoskeletal: Reports other Details: Right lower leg pain Integumentary Denies rash Neurologic Neurologic: Reports weakness Hematologic/Lymphatic Hematologic/Lymphatic: Denies easy bleeding or easy bruising EXAM Physical Exam Const Vital Signs: 07/21/25 09:08 07/21/25 09:22 07/21/25 09:28 Temperature 98.8 F 99.2 F H Temperature Source Temporal Oral Pulse Rate 106 H Respiratory Rate 22 H Respiratory Effort Normal Non-Labored Blood Pressure 151/56 H Blood Pressure Mean 87 Pulse Ox 96 Oxygen Delivery Method Room Air 07/21/25 09:29 07/21/25 10:17 07/21/25 11:00 Temperature Temperature Source Pulse Rate 99 Respiratory Rate 15 Respiratory Effort Blood Pressure 131/63 H 129/49 H Blood Pressure Mean 85 75 Pulse Ox 99 Oxygen Delivery Method Room Air 07/21/25 12:00 Temperature Temperature Source Pulse Rate 86 Respiratory Rate 17 Respiratory Effort Blood Pressure Blood Pressure Mean Pulse Ox 98 Oxygen Delivery Method Positive well nourished and well developed Constitutional Narrative: Mildly ill-appearing (more content not included)... Normal [facility] Eosinophil percentageOrdered By: Denice Leal on 07-21-2025 Eosinophils/100 WBC (Bld) 2.3 % 0-5 [facility] Erythrocyte distribution wid th ratioOrdered By: Denice Leal on 07-21-2025 Erythrocyte distribution width (RBC) [Ratio] 22.6 % High 11.6-14.6 [facility] Erythrocyte distribution wid th standard deviationOrdered By: Denice Leal on 07-21-2025 Erythrocyte distribution width (RBC) [Ratio] 63.7 fl High 35.1-43.9 [facility] Glomerular filtration rate ( GFR) estimation/1.73 sq m using serum, plasma, or whole bOrdered By: Denice Leal on 07-21-2025 GFR/1.73 sq M.predicted among non-blacks MDRD (S/P/Bld) [Vol rate/Area] 117 mL/min/{1.73_m2} >60 [facility] Comment on above: mL/min/1.73m2 CKD-EP I Creatinine Equation (2020) H AND P Exam - Hospitaliston 07-21-2025 H&P Exam - Hospitalist [facility] Medical Records Department [address] [place] [address] H P Exam - Hospitalist 07/21/25 1150 MR#: [id number] Acct: [id number] Name: LEON RIDER Rep #: [id number] : 1980 45 From: Timoteo Cooper MD PCP: Dr. Alis Duran MD Status:ADM IN Location: [place] [address] HPI - General General Date of Admission: 07/21/25 Date of Service: 07/21/25 Chief Complaint: Atypical chest pain about 2 times last night. HPI Narrative LEON RIDER, is a 45 M with multiple comorbidities came to ED after he had 2-3 times chest pain last night. Chest pain he felt like localized, pressure-like child sitting on his chest. No radiation. About 5-6 times/10 in intensity. Patient is not good historian and does not give/remember chronological order of his symptoms, frequency or number of times. He further said he has shortness of breath for several weeks, not getting better more with ADL. He has morbid obesity and uses CPAP and has chronic bilateral lower extremity lymphedema. He denies any passing out or fall. On last Tuesday he went to the PCP from where he was sent to ED for right venous duplex rule out DVT and was ruled out. Patient says he also has cough for about 2 to 3 months, not clear about his sputum states sometimes. He is not sure about fever but felt like cold several days ago. He is vague historian He was diagnosed with cirrhosis probably 7 to 10 years ago. 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 [facility] Medical History HTN (hypertension) Diabetes Acid reflux Rectal bleeding Hemorrhoids Home Medications ???Medication ???Instructions ???Recorded ???Last Taken ???Type Diltiazem 10mg/Lidocaine 50mg See Rx Instructions [place] .BID #30 Unknown Rx Suppository 30 supp suppository supp furosemide 40 mg tablet 40 mg PO QDAY 01/28/25 Unknown His tory lisinopril 5 mg tablet 5 mg PO QDAY 01/28/25 Unknown Hist ory metformin 1,000 mg tablet 1,000 mg PO BID 01/28/25 Unknown H istory sitagliptin phosphate 100 mg 100 mg PO QDAY 01/28/25 Unknown Hi story tablet (Januvia) atorvastatin 20 mg tablet 20 mg PO DAILY 07/21/25 Unknown Hi story omeprazole 40 mg capsule,delayed 40 mg PO DAILY 07/21/25 Unknown Hi story release repaglinide 1 mg tablet 1 mg PO BID 07/21/25 Unknown Histo ry triamterene 37.5 1 cap PO DAILY 07/21/25 Unknown Hi story mg-hydrochlorothiazide 25 mg capsule Allergy/AdvReac Type Severity Reaction Status Date / Time No Known Allergies Allergy Verified 07/21/25 09:08 Surgical History H/O umbilical hernia repair [place] teeth extracted Social History household members: spouse housing: house Smoking Status: Never smoker alcohol intake: never substance use type: does not use ROS ROS Narrative Constitutional: Reports fatigue and weakness. No clear history of fever HEENT: Reports systems reviewed and no addt'l complaints, except as documented Respiratory/Chest: As described in HPI. Uses CPAP. CVS: Left-sided localized chest pain 2 times in the last night. No radiation. As described in HPI. Gastrointestinal: Denies coffee ground emesis, hematemesis or vomiting Genitourinary: Denies burning urination or new urinary tract symptoms Musculoskeletal: Difficulty in ambulation. Chronic lower extremity swelling Neurologic: Denies seizure-like symptoms. skin: No ulcer. No rash Endocrinology: Reports systems reviewed and no addt'l complaints, except as documented Hematologic/Lymphatic: Reports systems reviewed and no addt'l complaints, except as documented Rest 14 ROS are negative except as mentioned in HPI Vital Signs Vital Signs Vital Signs: 07/21/25 09:08 07/21/25 09:22 07/21/25 09:28 Temperature 98.8 F 99.2 F H Temperature Source Temporal Oral Pulse Rate 106 H Respiratory Rate 22 H Respiratory Effort Normal Non-Labored Blood Pressure 151/56 H Blood Pressure Mean 87 Pulse Ox 96 Oxygen Delivery Method Room Air 07/21/25 09:29 07/21/25 10:17 07/21/25 11:00 Temperature Temperature Source Pulse Rate 99 Respiratory Rate 15 Respiratory Effort Blood Pressure 131/63 H 129/49 H Blood Pressure Mean 85 75 Pulse Ox 99 Oxygen Delivery Method Room Air Weight Weight: 388 lb 7.272 oz Body Mass Index (BMI) 54.1 Physical Exam Narrative General: Alert, Oriented x3, Cooperative. Morbid obesity BMI 54.2 kg/m??? HEENT: Atraumatic, PERRLA, EOMI, Normocephalic. Oral: Deep oropharyngeal history could not be visualized Neck: Supple, No JVD, Negative Carotid Bruits Chest wall/Lungs: Air entry severely diminished in bilateral lung bases. Mild crepitat (more content not included)... Normal [facility] Hematocrit Auto (Bld) [Volum e fraction]Ordered By: Denice Leal on 07-21-2025 Hematocrit (Bld) [Volume fraction] 26.8 % Low 40-54 [facility] Hemoglobin measurementOrdere d By: Denice Leal on 07-21-2025 Hemoglobin (Bld) [Mass/Vol] 8.8 g/dL Low 13.0-16.5 [facility] Immature granulocytes/100 WB C Auto (Bld)Ordered By: Denice Leal on 07-21-2025 Immature granulocytes/100 WBC (Bld) 0.600 % 0.0-0.9 [facility] Comment on above: IG% - Immature Granu locytes (promyelocytes, myelocytes and metamyelocytes) > 1% indicates that a LEFT SHIFT is Present. Influenza virus A and B and SARS-CoV-2 (COVID-19) and Respiratory syncytial virus RNAOrdered By: Denice Leal on 07-21-2025 SARS-CoV-2 (COVID-19) RNA CHARLIE+probe Ql (Unsp spec) [facility] International normalized rat io (INR) calculationOrdered By: Denice Leal on 07-21-2025 INR Coag (Bld) [Relative time] 1.7 {INR} [facility] Ketones Test strip Ql (U)Ord ered By: Denice Leal on 07-21-2025 Ketones Ql (U) Negative Negative [facility] L501.4021on 07-21-2025 Trop T High Sen 8 ng/L Normal <=22 [facility] Comment on above: Performed By: #### L 500.4050, L100.0100 #### [facility] [address] [place], [address] Laboratory - Chemistry and C hemistry - challengeOrdered By: Denice Leal on 07-21-2025 AST [Catalytic activity/Vol] 42 U/L High <38 [facility] - Hematology and Cell countsOrdered By: Denice Leal on 07-21-2025 Anisocytosis Ql (Bld) 2+ [facility] Lactic Acidon 07-21-2025 Lactate [Moles/Vol] 2.5 mmol/L Invalid Interpretation Code 0.0-2.0 [facility] Comment on above: Result Comment: Crit ical Result(s) Called at: 1515 by: CARROL GUPTA TO GIA MELLO??Results read back by same. Performed By: #### L 501.080 #### [facility] [address] [place], [address] Lactate [Moles/Vol] 3.2 mmol/L Invalid Interpretation Code 0.0-2.0 [facility] Comment on above: Order Comment: Y Result Comment: Crit ical Result(s) Called NJOHNSON at: 1019 by: LATASHA??Results read back by same. Performed By: #### L 499.0043 #### [facility] [address] [place], [place], [address] Lactic acid measurementOrder ed By: Denice Leal on 07-21-2025 Lactate [Moles/Vol] 2.5 mmol/L Critically high 0.0-2.0 [facility] Comment on above: Critical Result(s) C alled at: 1515 by: CARROL MELLO Results read back by same. Lactate [Moles/Vol] 3.2 mmol/L High 0.0-2.0 [facility] Comment on above: Critical Result(s) C alled CHELCAALEJANDRO at: 1019 by: LATASHA Results read back by same. M100.678on 07-21-2025 M100.678 Normal Reference Ran ge = Negative [employer] Instrument, PCR method SARS-CoV-2 (COVID 19) Negative INFLUENZA A Negative INFLUENZA B Negative RSV PCR Negative Normal [facility] Comment on above: Performed By: #### L 501.080 #### [facility] [address] [place], [place], [address] MCV (mean corpuscular volume ) determinationOrdered By: Denice Leal on 07-21-2025 MCV (RBC) [Entitic vol] 80.0 fL 80-94 [facility] Magnesiumon 07-21-2025 Magnesium [Mass/Vol] 1.8 mg/dL Normal 1.5-2.[address] [facility] Comment on above: Performed By: #### L 506.0200, L503.0106, L100.9950, L503.6030, L503.6550 #### [facility] [address] [place], [place], [id number] Mean corpuscular hemoglobin (MCH) determinationOrdered By: Denice Leal on 07-21-2025 MCH (RBC) [Entitic mass] 26.3 pg Low 27.0-32.0 [facility] Mean corpuscular hemoglobin concentration (MCHC) determinationOrdered By: Denice Leal on 07-21-2025 MCHC (RBC) [Mass/Vol] 32.8 g/dL 32-36 [facility] Mean platelet volume determi nationOrdered By: Denice Leal on 07-21-2025 Platelet mean volume (Bld) [Entitic vol] 10.3 fL 6.2-12.0 [facility] Microscopic analysis of urin e for red blood cells (RBC)Ordered By: Denice Leal on 07-21-2025 Microscopic analysis of urine for red blood cells (RBC) 0 SEEN /hpf 0-5 [facility] Monocyte percentageOrdered B y: Denice Leal on 07-21-2025 Monocytes/100 WBC (Bld) 15.8 % High 0-10 [facility] Mucus LM Ql (Urine sed)Order ed By: Denice Leal on 07-21-2025 Mucus Ql (Urine sed) 0 SEEN /hpf [facility] Natriuretic peptide.B prohor reji N-Terminal [Mass/volume] in Serum or PlasmaOrdered By: Denice Leal on 07-21-2025 Natriuretic peptide.B prohormone N-Terminal [Mass/Vol] 106 pg/mL <450 [facility] Comment on above: Heart Failure Unlike ly: < 300 pg/mLHeart Failure Likely< 50 Years: > 450 pg/mL50-75 Years: > 900 pg/mL>75 Years: > 1800 pg/mL Neutrophil percentageOrdered By: Denice Leal on 07-21-2025 Neutrophils/100 WBC (Bld) 70.4 % High 47-70 [facility] Nitrite Test strip Ql (U)Ord ered By: Denice Leal on 07-21-2025 Nitrite Ql (U) Negative Negative [facility] Nucleated red blood cell per centageOrdered By: Denice Leal on 07-21-2025 Nucleated RBC/100 WBC (Bld) [Ratio] 0 % 0-5 [facility] Partial Thromboplast Timeon 07-21-2025 aPTT Coag (Bld) [Time] 39.4 s High 24.1-36.2 [facility] Comment on above: Performed By: #### L 499.0043 #### [facility] [address] [place], [place], [id number] Platelet countOrdered By: Fransico Leal on 07-21-2025 Platelets (Bld) [#/Vol] 112 10*3/uL Low 150-450 [facility] Potassium measurement (mass/ volume)Ordered By: Denice Leal on 07-21-2025 Potassium (Unsp spec) [Mass/Vol] 3.7 mmol/L 3.3-5.1 [facility] Pro- Brain NATRIURETIC PEPTI Chaparro 07-21-2025 Natriuretic peptide B (Bld) [Mass/Vol] 106 pg/mL Normal <=450 [facility] Comment on above: Result Comment: Hear t Failure Unlikely: < 300 pg/mL Heart Failure Likely < 50 Years: > 450 pg/mL 50-75 Years: > 900 pg/mL >75 Years: > 1800 pg/mL Performed By: #### L 499.0043 #### [facility] [address] [place], [place], [id number] Protein Test strip Ql (U)Ord ered By: Denice Leal on 07-21-2025 Protein Ql (U) 30 mg/dl High Negative [facility] Prothrombin Time w/INRon INR Coag (PPP) [Relative time] 1.7 {INR} Normal [facility] Comment on above: Performed By: #### L 499.0043 #### [facility] [address] [place], [address] PT Coag (PPP) [Time] 20.3 s High 11.7-14.[address] [facility] Comment on above: Performed By: #### L 499.0043 #### [facility] [address] [place], [place], [id number] Prothrombin timeOrdered By: Denice Leal on 07-21-2025 PT Coag (PPP) [Time] 20.3 s High 11.7-14.[address] [facility] RBC Auto (Bld) [#/Vol]Ordere d By: Denice Leal on 07-21-2025 RBC (Bld) [#/Vol] 3.35 10*6/uL Low 4.6-6.2 [facility] Serum creatinine measurement (mass/volume)Ordered By: Denice Leal on 07-21-2025 Creatinine [Mass/Vol] 0.66 mg/dL Low 0.70-1.20 [facility] Serum globulin measurementOr dered By: Denice Leal on 07-21-2025 Globulin (S) [Mass/Vol] 4.1 g/dL 2.2-4.2 [facility] Serum glucose measurement (m ass/volume)Ordered By: Denice Leal on 07-21-2025 Glucose [Mass/Vol] 168 mg/dL High 70-99 [facility] Serum or plasma alanine reyes otransferase (ALT) measurementOrdered By: Denice Leal on 07-21-2025 ALT [Catalytic activity/Vol] 33 U/L <47 [facility] Serum or plasma albumin wilfred urement (mass/volume)Ordered By: Denice Leal on 07-21-2025 Albumin [Mass/Vol] 2.5 g/dL Low 3.5-5.0 [facility] Serum or plasma albumin/glob ulin mass ratioOrdered By: Denice Leal on 07-21-2025 Albumin/Globulin [Mass ratio] 0.6 {ratio} Low 0.9-2.4 [facility] Serum or plasma alkaline roge sphatase measurementOrdered By: Denice Leal on 07-21-2025 ALP [Catalytic activity/Vol] 109 U/L 40-129 [facility] Serum or plasma calcium wilfred urement (mass/volume)Ordered By: Denice Leal on 07-21-2025 Calcium [Mass/Vol] 8.1 mg/dL 7.6-11.0 [facility] Serum or plasma urea nitroge n measurement (mass/volume)Ordered By: Denice Leal on 07-21-2025 Urea nitrogen [Mass/Vol] 8 mg/dL 4-19 [facility] Sodium levelOrdered By: Paula Leal on 07-21-2025 Sodium [Moles/Vol] 127 mmol/L Low 133-145 [facility] Squamous epithelial cells de tection in urine sediment by light microscopyOrdered By: Denice Leal on 07-21-2025 Epithelial cells.squamous LM Ql (Urine sed) 0 SEEN /hpf 0-5 [facility] Stool Occult Blood iFOBon STOB Normal Reference Ran ge = Negative Immunochemical Fecal Occult Blood (iFOBT) method. Hemoccult Stl Ql IA Limitation: Menstrual bleeding, constipation bleeding, bleeding hemorrhoids, and urinary bleeding conditions may interfere with test. Occult Blood Negative Normal [facility] Comment on above: Performed By: #### L 500.4050, L100.0100 #### [facility] [address] [place], [address] Stool gastrointestinal hemog lobin detection by immunologic methodOrdered By: Denice Leal on 07-21-2025 Lower GI hemoglobin IA Ql (Stl) [facility] TSH DL <= 0.005 mIU/L QnOrde red By: Denice Leal on 07-21-2025 TSH Qn 1.550 uIU/mL 0.300-4.20 0 [facility] Target cell detectionOrdered By: Denice eLal on 07-21-2025 Target cells LM Ql (Bld) 1+ [facility] Thyroid Stim Hormone (TSH)on 07-21-2025 TSH 1.550 uIU/mL Normal 0.300-4.20 0 [facility] Comment on above: Performed By: #### L 499.0043 #### [facility] [address] [place], [place], [id number] Total proteinOrdered By: Hilaria Leal on 07-21-2025 Protein [Mass/Vol] 6.6 g/dL 5.9-8.4 [facility] Troponin T HS 2 HRon 025 Trop T High Sen 7 ng/L Normal <=22 [facility] Comment on above: Performed By: #### L 506.0200, L503.0106, L100.9950, L503.6030, L503.6550 #### [facility] [address] [place], [address] Troponin T HS 4 HRon 025 Trop T High Sen 7 ng/L Normal <=22 [facility] Comment on above: Performed By: #### L 499.0043 #### [facility] [address] [place], [address] Troponin T.cardiac [Mass/vol ume] in Serum or Plasma by High sensitivity methodOrdered By: Denice Leal on 07-21-2025 Troponin T.cardiac High sensitivity method [Mass/Vol] 7 ng/L <22 [facility] Troponin T.cardiac High sensitivity method [Mass/Vol] 7 ng/L <22 [facility] Troponin T.cardiac High sensitivity method [Mass/Vol] 8 ng/L <22 [facility] Type AND Screenon 07-21-2025 Ab SCREEN GEL Negative Normal [facility] Comment on above: Order Comment: A Performed By: #### L 500.4050, L100.0100 #### [facility] [address] [place], [address] Urinalysis, Completeon 07-21 BACTERIA 0 SEEN Normal None Seen [facility] Comment on above: Order Comment: CLEAN CATCH Performed By: #### L 501.080 #### [facility] [address] [place], [address] EPI,SQUAMOUS 0 SEEN Normal 0-5 [facility] Comment on above: Order Comment: CLEAN CATCH Performed By: #### L 501.080 #### [facility] [address] [place], [address] Mucus Ql (Urine sed) 0 SEEN Normal [facility] Comment on above: Order Comment: CLEAN CATCH Performed By: #### L 501.080 #### [facility] [address] [place], [address] RBC 0 SEEN Normal 0-5 [facility] Comment on above: Order Comment: CLEAN CATCH Performed By: #### L 501.080 #### [facility] [address] [place], [place], [address] WBC 0 SEEN Normal 0-5 [facility] Comment on above: Order Comment: CLEAN CATCH Performed By: #### L 501.080 #### [facility] [address] [place], [place], [address] Urine clarityOrdered By: Hilaria Leal on 07-21-2025 Clarity (U) Clear Clear [facility] Urine color determinationOrd ered By: Denice Leal on 07-21-2025 Color (U) Yellow Yellow [facility] Urine cultureOrdered By: Hilaria Leal on 07-21-2025 Bacteria identified Cx Nom (U) Streptococcus agalactiae (B) Abnormal [facility] Bacteria identified Cx Nom (U) Positive Abnormal [facility] Urine glucose detectionOrder ed By: Denice Leal on 07-21-2025 Glucose Ql (U) Normal mg/dl Normal [facility] Urine leukocyte esterase det ection by dipstickOrdered By: Denice Leal on 07-21-2025 Leukocyte esterase Test strip Ql (U) Negative Negative [facility] Urine pHOrdered By: Denice samano on 07-21-2025 pH (U) 6.5 [pH] 5.0 - 8.0 [facility] Urine sediment bacteria coun t by microscopy (number/high power field)Ordered By: Denice Leal on 07-21-2025 Bacteria LM.HPF (Urine sed) [#/Area] 0 /[HPF] None Seen [facility] Urine specific gravity measu rementOrdered By: Denice Leal on 07-21-2025 Specific gravity (U) [Rel density] 1.010 1.002-1.03 0 [facility] Urine urobilinogen measureme ntOrdered By: Denice Leal on 07-21-2025 Urobilinogen Ql (U) 4 mg/dl High Normal [facility] White blood cell (WBC) count Ordered By: Denice Leal on 07-21-2025 WBC (Bld) [#/Vol] 9.3 10*3/uL 4.4-11.0 [facility] White blood cell countOrdere d By: Denice Leal on 07-21-2025 White blood cell count 0 SEEN /hpf 0-5 [facility] D-Dimer Quantitative (DVT/PE )on 07-19-2025 D-DIMER QUANT 2.09 FEU/ug/m Invalid Interpretation Code 0.27-0.49 [facility] Comment on above: Result Comment: D-Di huber ELEVATED (>0.49): Additional studies and clinical assessments are indicated to conclude diagnosis of: Deep Vein Thrombosis (DVT) or Pulmonary Embolism (PE) CRITICAL VALUE CALLED TO NOLAN GILES 07/19/25 1632 Apolonia Beadren. RESULTS READ BACK BY SAME. Performed By: #### L 499.0043 #### [facility] [address] [place], [address] Venous Duplex US, Unilateral on 07-19-2025 Venous Duplex US, Unilateral [facility] [address] [place] [address] Venous Duplex US, Unilateral 07/19/25 1358 MR#: [id number] Acct: [id number] Name: LEON RIDER Rep #: [id number] : 1980 45 From: Kalia Mcmahan MD Attending Dr: Yusef Mccoy NP [employer] Status: RE G CLI Ordering Dr: Yusef Mccoy NP [employer] Date: 07/19/25 Location: [facility] Sex: M C Admitted: Reason For Study Reason For Study: Right leg pain RIGHT GSV is normal. CFV is compressible, spontaneous, phasic, competent and demonstrates normal augmentation. FV is compressible, spontaneous, phasic, competent and demonstrates normal augmentation. POP V is compressible, spontaneous, phasic, competent and demonstrates normal augmentation. T/P Trunk is compressible. PTV is compressible. RT PerV is compressible. Calf veins visualized in segments. Procedure This is a venous duplex using B-mode, color flow and spectral Doppler. Exam performed in department. Technically difficult to visualize calf veins due to patient body habitus. A preliminary report was called and/or faxed to Nadine ARGUETA. VL/Venous Duplex US, Unilateral Interpretation Summary Deep veins of the right lower extremity are patent and compressible segmentally. There is no evidence of right lower extremity deep vein thrombosis. Valvular competence appears intact within the proximal deep venous system on the right . The right great saphenous vein appears patent and compressible segmentally. Ordering Physician: Yusef Mccoy Referring Physician: Alis Duran Performed By: Isabel Ruvalcaba RVT 07/19/252238 Date Kalia Mcmahan MD CC: Yusef Mccoy; Dr. Alis Duran MD Date Dictated: 07/19/251357 Date Transcribed: 07/19/252238 Banking Representative: Signed Normal [facility] Venous duplex ultrasound rep ortOrdered By: Klaia Mcmahan on 07-19-2025 US Vein [facility] [address] [place] [address] Venous Duplex US, Unilateral 07/19/25 1358 MR#: [id number] Acct: [id number] Name: LEON RIDER Rep #:[id number] : 1980 45 From: Kalia Mcmahan MD Attending Dr: Yusef Mccoy NP [employer] Status: REG CLI Ordering Dr: Yusef Mccoy NP, NP-C Da te: 07/19/25 Location: CVS Sex: M C Admitted: Reason For Study Reason For Study: Right leg pain RIGHT GSV is normal. CFV is compressible, spontaneous, phasic, competent and demonstrates normal augmentation. FV is compressible, spontaneous, phasic, competent and demonstrates normal augmentation. POP V is compressible, spontaneous, phasic, competent and demonstrates normal augmentation. T/P Trunk is compressible. PTV is compressible. RT PerV is compressible. Calf veins visualized in segments. Procedure This is a venous duplex using B-mode, color flow and spectral Doppler. Exam performed in department. Technically difficult to visualize calf veins due to patient body habitus. A preliminary report was called and/or faxed to Nadine ARGUETA. VL/Venous Duplex US, Unilateral Interpretation Summary Deep veins of the right lower extremity are patent and compressible segmentally.There is no evidence of right lower extremity deep vein thrombosis. Valvular competence appears intact within the proximal deep venous system on the right . The right great saphenous vein appears patent and compressible segmentally. Ordering Physician: Yusef Mccoy Referring Physician: Alis Duran Performed By: Isabel Ruvalcaba RVT 07/19/252238 Date _ Kalia Mcmahan MD CC: Yusef Mccoy; Dr. Alis Duran MD ~ Date Dictated: 07/19/25 1358 Date Transcribed: 07/19/252238 Banking Representative: Signed [facility] Other Potassiumon 04-29-2025 Potassium [Moles/Vol] 4.1 mmol/L Normal 3.3-5.1 [facility] Comment on above: Order Comment: Order Date: 04/29/25Order Info: 2823-3 - K Performed By: #### L 499.0043 #### [facility] [place], [address] Potassium measurement (mass/ volume)Ordered By: Alis Duran on 04-29-2025 Potassium (Unsp spec) [Mass/Vol] 4.1 mmol/L 3.3-5.1 [facility] Surgery Visit Reporton 01-28 Surgery Visit Report [facility] [address] [place] [address] OFFICE VISIT Date of Service: 01/28/25 MR#: [id number] Acct: [id number] Name: LEON RIDER Rep #: [id number] : 1980 Provider: Dr. Lorie lim MD Age/Sex: 44/M Location: [facility] Status: Signed Intake Vital Signs 01/28/25 14:52 [...] ???Type Diltiazem 10mg/Lidocaine 50mg See Rx Instructions VT .BID #30 01/28/25 Rx Suppository 30 supp [...] QDAY 01/28/25 01/28/25 H istory tablet (Januvia) [facility] Medical History (Updated 01/30/25 @ 12:[address] Lorie Willson MD) HTN (hypertension) Diabetes Acid reflux Rectal bleeding Hemorrhoids Surgical History (Updated 01/28/25 @ 14:44 by Erma Spaulding LPN) H/O umbilical hernia repair [place] teeth extracted Social History (Updated 01/28/25 @ [...] did have a colonoscopy in 2021 in [facility] he may have had polyps at that time. Patient states he has bowel movements daily denies constipation. Does admit to staying on the toilet for prolonged periods of time. Patient did get mifk-gtn-onhsapj treatment for hemorrhoids/fissures??? Dr. De Santiago's which is lidocaine which has [...] prolonged times (more content not included)... Normal [facility] BASIC METABOLIC PANELon 05-0 Anion gap [Moles/Vol] 7 mmol/L Normal 5-15 [facility] Comment on above: Order Comment: Locat ion: Performed By: #### L AB129, XVT111, AQS364, LAB15, LAB18, LAB20 #### LEON SLOAN ([id number]) [facility] ([facility]) [address] [place] [address] B/C RATIO 10.0 Normal 10.0-28.6 [facility] Comment on above: Order Comment: Locat ion: Performed By: #### L AB129, FDY676, OBF884, LAB15, LAB18, LAB20 #### LEON SLOAN ([id number]) [facility] ([facility]) [address] [address] Calcium [Mass/Vol] 7.9 mg/dL Low 8.7-10.4 [facility] Comment on above: Order Comment: Locat ion: Performed By: #### L AB129, AMP253, IQW274, LAB15, LAB18, LAB20 #### LEON SLOAN ([id number]) [facility] ([facility]) [address] [address] Chloride [Moles/Vol] 106 mmol/L Normal 98-107 [facility] Comment on above: Order Comment: Locat ion: Performed By: #### L AB129, SYB764, YTV508, LAB15, LAB18, LAB20 #### LEON SLOAN ([id number]) [facility] ([facility]) [address] [address] CO2 [Moles/Vol] 27 mmol/L Normal 20-31 [facility] Comment on above: Order Comment: Locat ion: Performed By: #### L AB129, YGJ397, VIB168, LAB15, LAB18, LAB20 #### LEON SLOAN ([id number]) [facility] ([facility]) [address] [address] Creatinine [Mass/Vol] 0.6 mg/dL Low 0.7-1.3 [facility] Comment on above: Order Comment: Locat ion: Performed By: #### L AB129, OZW459, ZPY353, LAB15, LAB18, LAB20 #### LEON SLOAN ([id number]) [facility] ([facility]) [address] [address] GFR 121.3 mL/min/1.73m*2 Normal >=60.0 [facility] Comment on above: Order Comment: Locat ion: Performed By: #### L AB129, HBL931, WAQ282, LAB15, LAB18, LAB20 ###Tom SLOAN ([id number]) [facility] ([facility]) [address] [address] Glucose [Mass/Vol] 136 mg/dL High 74-106 [facility] Comment on above: Order Comment: Locat ion: Performed By: #### L AB129, NDW563, ZDK434, LAB15, LAB18, LAB20 #### LEON SLOAN ([id number]) [facility] ([facility]) [address] [address] Potassium [Moles/Vol] 3.6 mmol/L Normal 3.5-5.1 [facility] Comment on above: Order Comment: Locat ion: Performed By: #### L AB129, YLO859, DEQ938, LAB15, LAB18, LAB20 #### LEON SLOAN ([id number]) [facility] ([facility]) [address] [facility] [address] [place] [address] Sodium [Moles/Vol] 140 mmol/L Normal 136-145 [facility] Comment on above: Order Comment: Locat ion: Performed By: #### L AB129, RXG876, JOA223, LAB15, LAB18, LAB20 #### LEON SLOAN ([id number]) [facility] ([facility]) [address] [address] Urea nitrogen [Mass/Vol] 6 mg/dL Low 9-23 [facility] Comment on above: Order Comment: Locat ion: Performed By: #### L AB129, QVB012, YBI177, LAB15, LAB18, LAB20 #### LEON SLOAN ([id number]) [facility] ([facility]) [address] [place] [address] CBC WITH AUTO DIFFERENTIALon 03-20-2024 BASO # 0.1 K CUMM Normal 0.0-0.2 [facility] Comment on above: Order Comment: Locat ion: Performed By: #### L [id number], [id number] #### LEON SLOAN ([id number]) [facility] ([facility]) [address] [address] Basophils/100 WBC (Bld) 1.8 % Normal 0.0-3.0 [facility] Comment on above: Order Comment: Locat ion: Performed By: #### L [id number], [id number] #### LEON SLOAN ([id number]) [facility] ([facility]) [address] [facility] [address] [place] [address] Eosinophils (Bld) [#/Vol] 0.27 10*3/uL Normal 0.00-0.40 [facility] Comment on above: Order Comment: Locat ion: Performed By: #### L [id number], [id number] #### LEON SLOAN ([id number]) [facility] ([facility]) [address] [place] [address] Eosinophils/100 WBC (Bld) 5.9 % Normal 0.0-7.0 [facility] Comment on above: Order Comment: Locat ion: Performed By: #### Kathleen CHING, [id number] #### LEON SLOAN ([id number]) [facility] ([facility]) [address] [place] [address] Erythrocyte distribution width (RBC) [Ratio] 18.3 % High 11.5-15.5 [facility] Comment on above: Order Comment: Locat ion: Performed By: #### Kathleen BERNSTEINWJ8666, [id number] #### LEON SLOAN ([id number]) [facility] ([facility]) [address] [place] [address] Hematocrit (Bld) [Volume fraction] 34.2 % Low 42.0-52.0 [facility] Comment on above: Order Comment: Locat ion: Performed By: #### Kathleen [id number], [id number] #### LEON SLOAN ([id number]) [facility] ([facility]) [address] [place] [address] Hemoglobin (Bld) [Mass/Vol] 10.8 g/dL Low 13.5-18.0 [facility] Comment on above: Order Comment: Locat ion: Performed By: #### L FI6134, [id number] #### LEON SLOAN ([id number]) [facility] ([facility]) [address] [place] [address] IMMGRN# 0.0 K CUMM Normal 0.0-0.3 [facility] Comment on above: Order Comment: Locat ion: Performed By: #### L [id number], SYY9265 #### LEON SLOAN ([id number]) [facility] ([facility]) [address] [address] IMMGRN% 0.2 % Normal 0.0-3.0 [facility] Comment on above: Order Comment: Locat ion: Performed By: #### Kathleen BERNSTEINZT7953, [id number] #### LEON SLOAN ([id number]) [facility] ([facility]) [address] [address] LYMPH # 1.1 K CUMM Normal 0.7-4.5 [facility] Comment on above: Order Comment: Locat ion: Performed By: #### Kathleen BERNSTEINDR0212, [id number] #### LEON SLOAN ([id number]) [facility] ([facility]) [address] [place] [address] Lymphocytes/100 WBC (Bld) 23.2 % Normal 14.0-46.0 [facility] Comment on above: Order Comment: Locat ion: Performed By: #### Kathleen CHING, [id number] #### LEON SLOAN ([id number]) [facility] ([facility]) [address] [place] [address] MCH (RBC) [Entitic mass] 27.8 pg Normal 27.0-31.0 [facility] Comment on above: Order Comment: Locat ion: Performed By: #### Kathleen BERNSTEINZC4113, [id number] #### LEON SLOAN ([id number]) [facility] ([facility]) [address] [place] [address] MCHC (RBC) [Mass/Vol] 31.6 g/dL Low 32.0-36.0 [facility] Comment on above: Order Comment: Locat ion: Performed By: #### Kathleen BERNSTEINEW5531, [id number] #### LEON SLOAN ([id number]) [facility] ([facility]) [address] [place] [address] MCV (RBC) [Entitic vol] 87.9 fL Normal 78.0-100.0 [facility] Comment on above: Order Comment: Locat ion: Performed By: #### L CE3850, [id number] #### LEON SLOAN ([id number]) [facility] ([facility]) [address] [address] MONO # 0.8 K CUMM Normal 0.1-1.0 [facility] Comment on above: Order Comment: Locat ion: Performed By: #### L [id number], [id number] #### LEON SLOAN ([id number]) [facility] ([facility]) [address] [place] [address] Monocytes/100 WBC (Bld) 16.6 % High 4.0-13.0 [facility] Comment on above: Order Comment: Locat ion: Performed By: #### Kathleen CHING, [id number] #### LEON SLOAN ([id number]) [facility] ([facility]) [address] [place] [address] ELISEO # 2.4 K CUMM Normal 1.8-7.8 [facility] Comment on above: Order Comment: Locat ion: Performed By: #### Kathleen BERNSTEINBV8712, [id number] #### LEON SLOAN ([id number]) [facility] ([facility]) [address] [place] [address] Neutrophils/100 WBC (Bld) 52.3 % Normal 40.0-74.0 [facility] Comment on above: Order Comment: Locat ion: Performed By: #### L [id number], [id number] #### LEON SLOAN ([id number]) [facility] ([facility]) [address] [place] [address] Nucleated RBC/100 WBC (Bld) [Ratio] 0.0 % Normal 0.0-0.9 [facility] Comment on above: Order Comment: Locat ion: Performed By: #### L [id number], [id number] #### LEON SLOAN ([id number]) [facility] ([facility]) [address] [place] [address] Platelet mean volume (Bld) [Entitic vol] 10.8 fL Normal 8.9-12.6 [facility] Comment on above: Order Comment: Locat ion: Performed By: #### Kathleen BERNSTEINRG7341, [id number] #### LEON SOLAN ([id number]) [facility] ([facility]) [address] [facility] [address] [place] [address] PLT 75 K CUMM Low 130-400 [facility] Comment on above: Order Comment: Locat ion: Performed By: #### Kathleen SINGH14, [id number] #### LEON SLOAN ([id number]) [facility] ([facility]) [address] [address] RBC 3.9 M CUMM Low 4.2-5.8 [facility] Comment on above: Order Comment: Locat ion: Performed By: #### Kathleen CHING, [id number] #### LEON SLOAN ([id number]) [facility] ([facility]) [address] [address] WBC 4.6 K CUMM Normal 3.8-10.6 [facility] Comment on above: Order Comment: Locat ion: Performed By: #### Kathleen CHING, [id number] #### LEON SLOAN ([id number]) [facility] ([facility]) [address] [address] HEPATIC PANELon 03-20-2024 Albumin [Mass/Vol] 2.8 g/dL Low 3.2-4.8 [facility] Comment on above: Order Comment: Locat ion: Performed By: #### L AB129, SRS119, FAN498, LAB15, LAB18, LAB20 #### LEON SLOAN ([id number]) [facility] ([facility]) [address] [address] ALP [Catalytic activity/Vol] 146 U/L High 40-127 [facility] Comment on above: Order Comment: Locat ion: Performed By: #### L AB129, WBW708, IUR301, LAB15, LAB18, LAB20 #### LEON SLOAN ([id number]) [facility] ([facility]) [address] [facility], [address] [place] [address] ALT [Catalytic activity/Vol] 56 U/L High 10-49 [facility] Comment on above: Order Comment: Locat ion: Performed By: #### L AB129, EMA968, KSY054, LAB15, LAB18, LAB20 #### LEON SLOAN ([id number]) [facility] ([facility]) [address] [facility], [address] [place] [address] AST [Catalytic activity/Vol] 68 U/L High <=34 [facility] Comment on above: Order Comment: Locat ion: Performed By: #### L AB129, KIY294, QDM180, LAB15, LAB18, LAB20 #### LEON SLOAN ([id number]) [facility] ([facility]) [address] [address] BILI (INDIRECT) 1.7 mg/dL High 0.0-1.1 [facility] Comment on above: Order Comment: Locat ion: Performed By: #### L AB129, MWL862, YRU808, LAB15, LAB18, LAB20 #### LEON SLOAN ([id number]) [facility] ([facility]) [address] [facility], [address] [address] Bilirubin [Mass/Vol] 3.0 mg/dL High 0.3-1.2 [facility] Comment on above: Order Comment: Locat ion: Performed By: #### L AB129, BLX959, HJG544, LAB15, LAB18, LAB20 #### LEON SLOAN ([id number]) [facility] ([facility]) [address] [facility], [address] [place] [address] Bilirubin.direct [Mass/Vol] 1.3 mg/dL High <=0.4 [facility] Comment on above: Order Comment: Locat ion: Performed By: #### L AB129, PXL151, OOC647, LAB15, LAB18, LAB20 #### LEON SLOAN ([id number]) [facility] ([facility]) [address] [address] Protein [Mass/Vol] 6.6 g/dL Normal 5.7-8.2 [facility] Comment on above: Order Comment: Locat ion: Performed By: #### L AB129, GBI032, SEU494, LAB15, LAB18, LAB20 #### LEON SLOAN ([id number]) [facility] ([facility]) [address] [address] [id number] 03-20-2024 HbA1c (Bld) [Mass fraction] 6.9 % High 0.0-5.6 [facility] Comment on above: Order Comment: Locat ion: Result Comment: Refe rence Interval: Normal: below 5.7% Prediabetes: 5.7% to 6.4% Diabetes: 6.5% or above Performed By: #### Kathleen AB90 #### LEON SLOAN ([id number]) [facility] ([facility]) [address] [place] [address] LIPID PANELon 03-20-2024 CHOL/HDL RATIO 5.0 High <=4.0 [facility] Comment on above: Order Comment: Locat ion: Performed By: #### L AB129, HAW091, AJP954, LAB15, LAB18, LAB20 #### LEON SLOAN ([id number]) [facility] ([facility]) [address] [address] Cholesterol [Mass/Vol] 134 mg/dL Normal <=200 [facility] Comment on above: Order Comment: Locat ion: Result Comment: Low- risk levels (desirable) < 200 mg/dL Moderate-risk levels (borderline) 200 to 239 mg/dL High-risk levels > or = 240 mg/dL Performed By: #### L AB129, RUK356, WJV360, LAB15, LAB18, LAB20 #### LEON SLOAN ([id number]) [facility] ([facility]) [address] [address] Cholesterol in HDL [Mass/Vol] 27 mg/dL Low >60 [facility] Comment on above: Order Comment: Locat ion: Performed By: #### L AB129, ZNY066, DGW880, LAB15, LAB18, LAB20 #### LEON SLOAN ([id number]) [facility] ([facility]) [address] [facility], [address] [address] Cholesterol in LDL [Mass/Vol] 84 mg/dL Normal <=130 [facility] Comment on above: Order Comment: Locat ion: Performed By: #### L AB129, LLQ441, SZZ027, LAB15, LAB18, LAB20 #### LEON SLOAN ([id number]) [facility] ([facility]) [address] [address] NON-HDL CHOL 107 Normal [facility] Comment on above: Order Comment: Locat ion: Result Comment: LDL and Non-HDL goal dependent upon individual risk Performed By: #### L AB129, [id number], NDF269, LAB15, LAB18, LAB20 #### LEON SLOAN ([id number]) [facility] ([facility]) [address] [facility], [address] [address] Triglyceride [Mass/Vol] 114 mg/dL Normal <=150 C [facility] Comment on above: Order Comment: Locat ion: Performed By: #### L AB129, BWM614, QYR431, LAB15, LAB18, LAB20 #### LEON SLOAN ([id number]) [facility] ([facility]) [address] [address] VLDL-CALC 22.8 mg/dl Normal 0-30 [facility] Comment on above: Order Comment: Locat ion: Performed By: #### L AB129, JHW429, VIO044, LAB15, LAB18, LAB20 #### LEON SLOAN ([id number]) [facility] ([facility]) [address] [address] MAGNESIUMon 03-20-2024 Magnesium [Mass/Vol] 1.7 mg/dL Normal 1.6-2.6 [facility] Comment on above: Order Comment: Locat ion: Performed By: #### L AB129, IES147, VVN872, LAB15, LAB18, LAB20 #### LEON SLOAN ([id number]) [facility] ([facility]) [address] [facility], [address] [place] [address] PHOSPHORUSon 03-20-2024 Phosphate [Mass/Vol] 2.9 mg/dL Normal 2.4-5.1 [facility] Comment on above: Order Comment: Locat ion: Performed By: #### L AB129, KDT355, NXJ996, LAB15, LAB18, LAB20 #### LEON SLOAN ([id number]) [facility] ([facility]) [address] [facility], [address] [address] SLIDE SCAN IF INDICATEDon COMMENT Normocytic/Normochromic Normal C [facility] Comment on above: Order Comment: Locat ion: Performed By: #### Kathleen [id number], [id number] #### LEON SLOAN ([id number]) [facility] ([facility]) [address] [facility], [address] [place] [address] PLATELET ESTIMATE Decreased Abnormal Adequate [facility] Comment on above: Order Comment: Locat ion: Performed By: #### L [id number], [id number] #### LEON SLOAN ([id number]) [facility] ([facility]) [address] [facility], [facility] [address] [place] [address] TSHon 03-20-2024 TSH 0.879 MIU/mL Normal 0.550-4.78 0 [facility] Comment on above: Order Comment: Locat ion: Performed By: #### L AB129, QAR033, JWN973, LAB15, LAB18, LAB20 #### LEON SLOAN ([id number]) [facility] ([facility]) [address] [facility], [address] [place] [address] ABDOMEN PELVIS WO CONTRAS Ton 09-25-2023 [...] Transcribed Date: 09/25/2023 02:17 Normal [facility] CT Pelvis limited WO contras [...] By: Self Edit Transcribed Date: 09/25/2023 02:17 APSXCRIBBellaDati EXAMINATION TYPE: CT ABDOMEN PELVIS WO CONTRAST [...] are present in the lower lumbar spine. APSXCRIBE Tal Hadley M D - 09/25/2023 EXAMINATION TYPE: CT ABDOMEN PELVIS [...] By: Self Edit Transcribed Date: 09/25/2023 02:17 [employer] Radiology Study observation (narrative) [employer] CT Pelvis limited WO contras tOrdered By: Tal Hadley on 09-25-2023 [employer] Work Phone: PT Coag (PPP) [Time]on 09-25 aPTT Coag (Bld) [Time] 34.7 s Normal 23.3-35.[address] [facility] Comment on above: Order Comment: The r ecommended therapeutic INR range for most cardiac indications is 2.0-3.0 For high intensity therapy (i.e. mechanical heart valves), the recommended range is 2.5-3.5 Performed By: #### 5 902-2 #### [facility] [address] [place] [address] INR Coag (PPP) [Relative time] 1.5 {INR} NINF - 5.0 [employer] Interpretation and review of laboratory results Abnormal [employer] PT Coag (Bld) [Time] 17.6 s High [facility] The recommended therapeutic INR range for most cardiac indications is 2.0-3.0 For high intensity therapy (i.e. mechanical heart valves), the recommended range is 2.5-3.5 GI Track aPTT Coag (Bld) [Time]on aPTT Coag (PPP) [Time] 34.7 s Tr [facility] [employer] Interpretation and review of laboratory results Normal GI Track Basic metabolic 2000 panelon 09-24-2023 Anion gap [Moles/Vol] 6 mmol/L Normal 6-18 [facility] Comment on above: Performed By: #### 2 4321-2 #### [facility] [address] [place] [address] Calcium [Mass/Vol] 9.3 mg/dL Normal 8.9-10.3 [facility] Comment on above: Performed By: #### 2 4321-2 #### [facility] [address] [place] [address] Chloride [Moles/Vol] 101 mmol/L Normal 98-107 [facility] Comment on above: Performed By: #### 2 4321-2 #### [facility] [address] [place] [address] CO2 [Moles/Vol] 27 mmol/L Normal 22-32 [facility] Comment on above: Performed By: #### 2 4321-2 #### [facility] [address] [place] [address] Creatinine [Mass/Vol] 0.64 mg/dL Normal 0.60-1.30 [facility] Comment on above: Performed By: #### 2 4321-2 #### [facility] [address] [place] [address] GFR/1.73 sq M.predicted among non-blacks MDRD (S/P/Bld) [Vol rate/Area] 119 mL/min/{1.73_m2} Normal >=60 [facility] Comment on above: Result Comment: Calc ulation based on the?Chronic Kidney Disease Epidemiology Collaboration (CKD-EPI) equation refit?without adjustment for race. Performed By: #### 2 4321-2 #### [facility] [address] [place] [address] Glucose [Mass/Vol] 178 mg/dL High 70-99 [facility] Comment on above: Performed By: #### 2 4321-2 #### [facility] [address] [place] [address] Potassium [Moles/Vol] 4.0 mmol/L Normal 3.6-5.1 [facility] Comment on above: Performed By: #### 2 4321-2 #### [facility] [address] [place] [address] Sodium [Moles/Vol] 134 mmol/L Low 136-145 [facility] Comment on above: Performed By: #### 2 4321-2 #### [facility] [address] [place] [address] Urea nitrogen [Mass/Vol] 8 mg/dL Normal 8-20 [facility] Comment on above: Performed By: #### 2 4321-2 #### [facility] [address] [place] [address] Urea nitrogen/Creatinine [Mass ratio] 12.5 mg/mg Normal 12.0-20.0 [facility] Comment on above: Performed By: #### 2 4321-2 #### [facility] [address] [place] [address] Anion gap [Moles/Vol] 6 mmol/L 6 - 18 [facility] Calcium [Mass/Vol] 9.3 mg/dL 8.9 - 10. 3 mg/dL [facility] Chloride [Moles/Vol] 101 mmol/L 98 - 10 7 mmol/L [facility] CO2 [Moles/Vol] 27 mmol/L 22 - 32 mmol/L [facility] Creatinine [Mass/Vol] 0.64 mg/dL 0.60 - 1.30 mg/dL [facility] GFR/1.73 sq M.predicted among non-blacks MDRD (S/P/Bld) [Vol rate/Area] 119 mL/min/{1.73_m2} - PINF [facility] Comment on above: Calculation based on the Chronic Kidney Disease Epidemiology Collaboration (CKD-EPI) equation refit without adjustment for race. Glucose [Mass/Vol] 178 mg/dL High 70 - 99 mg/dL [facility] Interpretation and review of laboratory results Abnormal [facility] Potassium [Moles/Vol] 4.0 mmol/L 3.6 - 5.1 mmol/L [facility] Sodium [Moles/Vol] 134 mmol/L Low 136 - 145 mmol/L [facility] Urea nitrogen [Mass/Vol] 8 mg/dL 8 - 20 mg/dL [facility] Urea nitrogen/Creatinine [Mass ratio] 12.5 mg/mg 12.0 - 20.0 [facility] Hemogram and platelets WO di fferential panel (Bld)on 09-24-2023 Basophils (Bld) [#/Vol] 0.07 10*3/uL Normal 0.00-0.20 [facility] Comment on above: Performed By: #### 2 4317-0 #### [facility] [address] [place] [address] Basophils/100 WBC (Bld) 1.6 % Normal 0.0-2.0 [facility] Comment on above: Performed By: #### 2 4317-0 #### [facility] [address] [place] [address] Eosinophils (Bld) [#/Vol] 0.23 10*3/uL Normal 0.00-0.70 [facility] Comment on above: Performed By: #### 2 4317-0 #### [facility] [address] [place] [address] Eosinophils/100 WBC (Bld) 5.4 % Normal 0.0-7.0 [facility] Comment on above: Performed By: #### 2 4317-0 #### [facility] [address] [place] [address] Erythrocyte distribution width (RBC) [Ratio] 18.4 % High 11.0-14.8 [facility] Comment on above: Performed By: #### 2 4317-0 #### [facility] [address] [place] [address] Hematocrit (Bld) [Volume fraction] 38.5 % Low 39.0-49.0 [facility] Comment on above: Performed By: #### 2 4317-0 #### [facility] [address] [place] [address] Hemoglobin (Bld) [Mass/Vol] 12.7 g/dL Low 13.5-17.5 [facility] Comment on above: Performed By: #### 2 4317-0 #### [facility] [address] [place] [address] Immature granulocytes (Bld) [#/Vol] 0.01 10*3/uL Normal 0.00-0.10 [facility] Comment on above: Performed By: #### 2 4317-0 #### [facility] [address] [place] [address] Immature granulocytes/100 WBC (Bld) 0.2 % Normal 0.0-1.2 [facility] Comment on above: Performed By: #### 2 4317-0 #### [facility] [address] [place] [address] Lymphocytes (Bld) [#/Vol] 1.14 10*3/uL Normal 1.00-4.80 [facility] Comment on above: Performed By: #### 2 4317-0 #### [facility] [address] [place] [address] Lymphocytes/100 WBC (Bld) 26.8 % Normal 17.9-49.6 [facility] Comment on above: Performed By: #### 2 4317-0 #### [facility] [address] [place] [address] MCH 28.9 pcg Normal 27.0-34.0 [facility] Comment on above: Performed By: #### 2 4317-0 #### [facility] [address] [place] [address] MCHC (RBC) [Mass/Vol] 33.0 g/dL Normal 30.8-35.3 [facility] Comment on above: Performed By: #### 2 4317-0 #### [facility] [address] [place] [address] MCV (RBC) [Entitic vol] 87.5 fL Normal 80.0-97.[address] [facility] Comment on above: Performed By: #### 2 4317-0 #### [facility] [address] [place] [address] Monocytes (Bld) [#/Vol] 0.73 10*3/uL Normal 0.00-0.90 [facility] Comment on above: Performed By: #### 2 4317-0 #### [facility] [address] [place] [address] Monocytes/100 WBC (Bld) 17.1 % Normal 4.0-23.[address] [facility] Comment on above: Performed By: #### 2 4317-0 #### [facility] [address] [place] [address] Neutrophils Absolute 2.08 K/mcL Normal 1.80-7.70 Moun t [facility] Comment on above: Performed By: #### 2 4317-0 #### [facility] [address] [place] [address] Neutrophils/100 WBC (Bld) 48.9 % Normal 38.1-75.5 [facility] Comment on above: Performed By: #### 2 4317-0 #### [facility] [address] [place] [address] Platelet mean volume (Bld) [Entitic vol] 11.0 fL Normal 6.2-12.1 [facility] Comment on above: Performed By: #### 2 4317-0 #### [facility] [address] [place] [address] Platelets (Bld) [#/Vol] 85 10*3/uL Low 142-[address] [facility] Comment on above: Result Comment: Resu lts confirmed by slide review. Performed By: #### 2 4317-0 #### [facility] [address] [place] [address] RBC (Bld) [#/Vol] 4.40 10*6/uL Normal 4.30-5.70 [facility] Comment on above: Performed By: #### 2 4317-0 #### [facility] [address] [place] [address] WBC (Bld) [#/Vol] 4.3 10*3/uL Low 4.6-10.2 [facility] Comment on above: Performed By: #### 2 4317-0 #### [facility] [address] [place] [address] Hemogram and platelets WO di fferential panel (Bld)Ordered By: Tahir Sanon on 09-24-2023 Basophils (Bld) [#/Vol] 0.07 10*3/uL [facility] Basophils/100 WBC (Bld) 1.6 % 0.0 - 2.0 % [facility] Eosinophils (Bld) [#/Vol] 0.23 10*3/uL [facility] Eosinophils/100 WBC (Bld) 5.4 % 0.0 - 7.0 % [facility] Erythrocyte distribution width (RBC) [Ratio] 18.4 % High 11.0 - 14.8 % [facility] Hematocrit (Bld) [Volume fraction] 38.5 % Low 39.0 - 49.0 % [facility] Hemoglobin (Bld) [Mass/Vol] 12.7 g/dL Low 13.5 - 17.5 g/dL [facility] Immature granulocytes (Bld) [#/Vol] 0.01 10*3/uL [facility] Immature granulocytes/100 WBC (Bld) 0.2 % 0.0 - 1.2 % [facility] Interpretation and review of laboratory results Abnormal [facility] Lymphocytes (Bld) [#/Vol] 1.14 10*3/uL [facility] Lymphocytes/100 WBC (Bld) 26.8 % 17.9 - 49.6 % [facility] MCH (RBC) [Entitic mass] 28.9 pg [facility] MCHC (RBC) [Mass/Vol] 33.0 g/dL 30.8 - 35.3 g/dL [facility] MCV (RBC) [Entitic vol] 87.5 fL T [facility] Monocytes (Bld) [#/Vol] 0.73 10*3/uL [facility] Monocytes/100 WBC (Bld) 17.1 % 4.0 - 23.0 % [facility] Neutrophils (Bld) [#/Vol] 2.08 10*3/uL [facility] Neutrophils/100 WBC (Bld) 48.9 % 38.1 - 75.5 % [facility] Platelet mean volume (Bld) [Entitic vol] 11.0 fL [facility] th Platelets (Bld) [#/Vol] 85 10*3/uL Low T [facility] Comment on above: Results confirmed by slide review. RBC (Bld) [#/Vol] 4.40 10*6/uL [facility] WBC (Bld) [#/Vol] 4.3 10*3/uL [facility] - Specimen inform ationon 09-24-2023 Specimen source Nom (Unsp spec) Hold for add-ons. [facility] Comment on above: Auto resulted. No Panel Informationon 09-24 [facility] Urinalysis dipstick W Reflex Microscopic panel (U)on 09-24-2023 Bacteria, Urine Rare Abnormal None [facility] Comment on above: Performed By: #### 5 7020-0 #### [facility] [address] [place] [address] Bilirubin, Urine Negative Normal Negative [facility] Comment on above: Performed By: #### 5 7020-0 #### [facility] [address] [place] [address] Blood, Urine 3+ Abnormal Negative, Trace [facility] Comment on above: Performed By: #### 5 20-0 #### [facility] [address] [place] [address] Clarity (U) Clear Normal Clear [facility] Comment on above: Performed By: #### 5 20-0 #### [facility] [address] [place] [address] Color (U) Colorless Abnormal Yellow [facility] Comment on above: Performed By: #### 5 20-0 #### [facility] [address] [place] [address] Glucose Ql (U) >1000 Abnormal Normal [facility] Comment on above: Performed By: #### 5 20-0 #### [facility] [address] [place] [address] Ketones Ql (U) Negative Normal Negative [facility] Comment on above: Performed By: #### 5 7019-0 #### [facility] [address] [place] [address] Leukocytes, Urine Negative Normal Negative [facility] Comment on above: Performed By: #### 5 20-0 #### [facility] [address] [place] [address] Nitrite, Urine Negative Normal Negative [facility] Comment on above: Performed By: #### 5 20-0 #### [facility] [address] [place] [address] pH (U) 6.5 [pH] Normal 5.0-8.0 [facility] Comment on above: Performed By: #### 5 20-0 #### [facility] [address] [place] [address] Protein, Urine Negative Normal Negative [facility] Comment on above: Performed By: #### 5 7020-0 #### [facility] [address] [place] [address] RBC LM.HPF (Urine sed) [#/Area] 247 /[HPF] High 0-5 [facility] Comment on above: Performed By: #### 5 7020-0 #### [facility] [address] [place] [address] Specific [place] Urine 1.010 Normal 1.002 -1.03 0 [facility] Comment on above: Performed By: #### 5 7020-0 #### [facility] [address] [place] [address] Urobilinogen, Urine Normal Normal Normal [facility] Comment on above: Performed By: #### 5 7020-0 #### [facility] [address] [place] [address] WBC LM.HPF (Urine sed) [#/Area] /[HPF] Normal 0-5 [facility] Comment on above: Performed By: #### 5 7020-0 #### [facility] [address] [place] [address] Bacteria LM.HPF (Urine sed) [#/Area] Rare Abnormal None /HPF [facility] Bilirubin Ql (U) Negative Negative mg/dL [facility] Clarity (U) Clear Clear [facility] Color (U) Colorless Abnormal Yellow [facility] Glucose Ql (U) >1000 Abnormal Normal mg/dL [facility] Hemoglobin Ql (U) 3+ Abnormal Negative, Trace [facility] Interpretation and review of laboratory results Abnormal [facility] Ketones (U) [Mass/Vol] Negative Negat fabricio mg/dL [facility] Leukocyte esterase Test strip Ql (U) Negative Negative WBCs/mcL [facility] Nitrite Ql (U) Negative Negative [facility] pH (U) 6.5 [pH] 5.0 - 8.0 pH [facility] Protein (U) [Mass/Vol] Negative Negat fabricio mg/dL [facility] RBC LM.HPF (Urine sed) [#/Area] 247 /[HPF] High [facility] Specific gravity (U) [Rel density] 1.010 1.002 - 1.030 [facility] Urobilinogen (U) [Mass/Vol] Normal Normal mg/dL [facility] WBC LM.HPF (Urine sed) [#/Area] [facility] Basic Metabolic Panel (COPC) on 08-03-2023 Creatinine [Mass/Vol] 0.59 mg/dL Low 0.76-1.[address] [facility] Comment on above: Order Comment: Testi ng performed at: [] [facility], [address] [place] [address], [phone], , Retail Salesworker: Tres Cm, PhD Performed By: #### C 121, C301, C406, C4176, C116, C48, C8, C45, C400, C115 #### Refer to report for performing lab GFR/1.73 sq M.predicted among non-blacks MDRD (S/P/Bld) [Vol rate/Area] 122 mL/min/{1.73_m2} Invalid Interpretation Code >59 [facility] Comment on above: Order Comment: Testi ng performed at: [] [facility], [address] [place] [address], [phone], , Retail Salesworker: Tres Cm, PhD Performed By: #### C 121, C301, C406, C4176, C116, C48, C8, C45, C400, C115 #### Refer to report for performing lab Urea nitrogen/Creatinine [Mass ratio] 15 mg/mg Invalid Interpretation Code 9-20 [facility] Comment on above: Order Comment: Testi ng performed at: [] [facility], [address] [place] [address], [phone], , Retail Salesworker: Tres Cm, PhD Performed By: #### C 121, C301, C406, C4176, C116, C48, C8, C45, C400, C115 #### Refer to report for performing lab Potassium [Moles/Vol] 3.9 mmol/L Invalid Interpretation Code 3.5-5.2 [facility] Comment on above: Order Comment: Testi ng performed at: [] [facility], [address] [place] [address], [phone], , Retail Salesworker: Tres Cm, PhD Performed By: #### C 121, C301, C406, C4176, C116, C48, C8, C45, C400, C115 #### Refer to report for performing lab Chloride [Moles/Vol] 101 mmol/L Invalid Interpretation Code 96-106 [facility] Comment on above: Order Comment: Testi ng performed at: [] [facility], [address] [place] [address], [phone], , Retail Salesworker: Tres Cm, PhD Performed By: #### C 121, C301, C406, C4176, C116, C48, C8, C45, C400, C115 #### Refer to report for performing lab Sodium [Moles/Vol] 136 mmol/L Invalid Interpretation Code 134-144 [facility] Comment on above: Order Comment: Testi ng performed at: [] [facility], [address] [place] [address], [phone], , Retail Salesworker: Tres Cm, PhD Performed By: #### C 121, C301, C406, C4176, C116, C48, C8, C45, C400, C115 #### Refer to report for performing lab Urea nitrogen [Mass/Vol] 9 mg/dL Invalid Interpretation Code 6-24 [facility] Comment on above: Order Comment: Testi ng performed at: [] [facility], [address] [place] [address], [phone], , Retail Salesworker: Tres Cm, PhD Performed By: #### C 121, C301, C406, C4176, C116, C48, C8, C45, C400, C115 #### Refer to report for performing lab Calcium [Mass/Vol] 9.0 mg/dL Invalid Interpretation Code 8.7-10.2 [facility] Comment on above: Order Comment: Testi ng performed at: [] [facility], [address] [place] [address], [phone], , Retail Salesworker: Tres Cm, PhD Performed By: #### C 121, C301, C406, C4176, C116, C48, C8, C45, C400, C115 #### Refer to report for performing lab CO2 [Moles/Vol] 22 mmol/L Invalid Interpretation Code [facility] Comment on above: Order Comment: Testi ng performed at: [] [facility], [address] [place] [address], [phone], , Retail Salesworker: Tres Cm, PhD Performed By: #### C 121, C301, C406, C4176, C116, C48, C8, C45, C400, C115 #### Refer to report for performing lab Glucose [Mass/Vol] 98 mg/dL Invalid Interpretation Code 70-99 [facility] Comment on above: Order Comment: Testi ng performed at: [] [facility], [address] [place] [address], [phone], , Retail Salesworker: Tres Cm, PhD Performed By: #### C 121, C301, C406, C4176, C116, C48, C8, C45, C400, C115 #### Refer to report for performing lab CBC with Diffon 08-03-2023 Basophils (Bld) [#/Vol] 0.1 10*3/uL Invalid Interpretation Code 0.0-0.2 [facility] Comment on above: Order Comment: Testi ng performed at: [] [facility], [address] [place] [address], [phone], , Retail Salesworker: Tres Cm, PhD Performed By: #### C 121, C301, C406, C4176, C116, C48, C8, C45, C400, C115 #### Refer to report for performing lab Basophils/100 WBC (Bld) 2 % Invalid Interpretation Code Not Estab. [facility] Comment on above: Order Comment: Testi ng performed at: [] [facility], [address] [place] [address], [phone], , Retail Salesworker: Tres Cm, PhD Performed By: #### C 121, C301, C406, C4176, C116, C48, C8, C45, C400, C115 #### Refer to report for performing lab Eosinophils (Bld) [#/Vol] 0.5 10*3/uL High 0.0-0.4 [facility] Comment on above: Order Comment: Testi ng performed at: [] [address], [phone], , Retail Salesworker: Tres Cm, PhD Performed By: #### C 121, C301, C406, C4176, C116, C48, C8, C45, C400, C115 #### Refer to report for performing lab Eosinophils/100 WBC (Bld) 10 % Invalid Interpretation Code Not Estab. [facility] Comment on above: Order Comment: Testi ng performed at: [] [facility], [address] [place] [address], [phone], , Retail Salesworker: Tres Cm, PhD Performed By: #### C 121, C301, C406, C4176, C116, C48, C8, C45, C400, C115 #### Refer to report for performing lab Erythrocyte distribution width (RBC) [Ratio] 15.5 % High 11.6-15.4 [facility] Comment on above: Order Comment: Testi ng performed at: [] [facility], [address] [place] [address], [address], , Retail Salesworker: Tres Cm, PhD Performed By: #### C 121, C301, C406, C4176, C116, C48, C8, C45, C400, C115 #### Refer to report for performing lab Hematocrit (Bld) [Volume fraction] 36.2 % Low 37.5-51.0 [facility] Comment on above: Order Comment: Testi ng performed at: [] [address], [address], , Retail Salesworker: Tres Cm, PhD Performed By: #### C 121, C301, C406, C4176, C116, C48, C8, C45, C400, C115 #### Refer to report for performing lab Hematology Comments: Note: Invalid Interpretation Code [facility] Comment on above: Order Comment: Testi ng performed at: [] [address], [address], , Retail Salesworker: Tres Cm, PhD Result Comment: Veri fied by microscopic examination. A hand-written panel/profile was received from your office. In accordance with the [employer] Ambiguous Test Code Policy dated May 2003, we have assigned CBC with Differential/Platelet, Test Code #[id number] to this request. If this is not the testing you wished to receive on this specimen, please contact the [employer] Client Inquiry/ Technical Services Department to clarify the test order. We appreciate your business. Performed By: #### C 121, C301, C406, C4176, C116, C48, C8, C45, C400, C115 #### Refer to report for performing lab Hemoglobin (Bld) [Mass/Vol] 11.8 g/dL Low 13.0-17.7 [facility] Comment on above: Order Comment: Testi ng performed at: [] [facility], [address] [place] [address], [address], , Retail Salesworker: Tres Cm, PhD Performed By: #### C 121, C301, C406, C4176, C116, C48, C8, C45, C400, C115 #### Refer to report for performing lab Immature Grans (Abs) 0.0 x10E3/uL Invalid Interpretation Code 0.0-0.1 [facility] Comment on above: Order Comment: Testi ng performed at: [] [facility], [address] [place] [address], [address], , Retail Salesworker: Tres Cm, PhD Performed By: #### C 121, C301, C406, C4176, C116, C48, C8, C45, C400, C115 #### Refer to report for performing lab Immature granulocytes/100 WBC (Bld) 0 % Invalid Interpretation Code Not Estab. [facility] Comment on above: Order Comment: Testi ng performed at: [] [facility], [address] [place] [address], [address], , Retail Salesworker: Tres Cm, PhD Performed By: #### C 121, C301, C406, C4176, C116, C48, C8, C45, C400, C115 #### Refer to report for performing lab Lymphocytes (Bld) [#/Vol] 1.1 10*3/uL Invalid Interpretation Code 0.7-3.1 [facility] Comment on above: Order Comment: Testi ng performed at: [] [facility], [address] [place] [address], [address], , Retail Salesworker: Tres Cm, PhD Performed By: #### C 121, C301, C406, C4176, C116, C48, C8, C45, C400, C115 #### Refer to report for performing lab Lymphocytes/100 WBC (Bld) 23 % Invalid Interpretation Code Not Estab. [facility] Comment on above: Order Comment: Testi ng performed at: [] [facility], [address] [place] [address], [address], , Retail Salesworker: Tres Cm, PhD Performed By: #### C 121, C301, C406, C4176, C116, C48, C8, C45, C400, C115 #### Refer to report for performing lab MCH (RBC) [Entitic mass] 27.8 pg Invalid Interpretation Code 26.6-33.0 [facility] Comment on above: Order Comment: Testi ng performed at: [] [address], [address], , Retail Salesworker: Tres Cm, PhD Performed By: #### C 121, C301, C406, C4176, C116, C48, C8, C45, C400, C115 #### Refer to report for performing lab MCHC (RBC) [Mass/Vol] 32.6 g/dL Invalid Interpretation Code 31.5-35.7 [facility] Comment on above: Order Comment: Testi ng performed at: [] [address], [address], , Retail Salesworker: Tres Cm, PhD Performed By: #### C 121, C301, C406, C4176, C116, C48, C8, C45, C400, C115 #### Refer to report for performing lab MCV (RBC) [Entitic vol] 85 fL Invalid Interpretation Code 79-97 [facility] Comment on above: Order Comment: Testi ng performed at: [] [address], [address], , Retail Salesworker: Tres Cm, PhD Performed By: #### C 121, C301, C406, C4176, C116, C48, C8, C45, C400, C115 #### Refer to report for performing lab Monocytes (Bld) [#/Vol] 0.7 10*3/uL Invalid Interpretation Code 0.1-0.9 [facility] Comment on above: Order Comment: Testi ng performed at: [] [facility], [address] [place] [address], [address], , Retail Salesworker: Tres Cm, PhD Performed By: #### C 121, C301, C406, C4176, C116, C48, C8, C45, C400, C115 #### Refer to report for performing lab Monocytes/100 WBC (Bld) 15 % Invalid Interpretation Code Not Estab. [facility] Comment on above: Order Comment: Testi ng performed at: [] [facility], [address] [place] [address], [address], , Retail Salesworker: Tres Cm, PhD Performed By: #### C 121, C301, C406, C4176, C116, C48, C8, C45, C400, C115 #### Refer to report for performing lab Neutrophils (Absolute) 2.4 x10E3/uL Invalid Interpretation Code 1.4-7.0 [facility] Comment on above: Order Comment: Testi ng performed at: [] [employer], [address], , Retail Salesworker: Tres Cm, PhD Performed By: #### C 121, C301, C406, C4176, C116, C48, C8, C45, C400, C115 #### Refer to report for performing lab Neutrophils/100 WBC (Bld) 50 % Invalid Interpretation Code Not Estab. [facility] Comment on above: Order Comment: Testi ng performed at: [] [facility], [address] [place] [address], [address], , Retail Salesworker: Tres Cm, PhD Performed By: #### C 121, C301, C406, C4176, C116, C48, C8, C45, C400, C115 #### Refer to report for performing lab Platelets (Bld) [#/Vol] 83 10*3/uL Critically low 150-450 [facility] Comment on above: Order Comment: Testi ng performed at: [] [facility], [address] [place] [address], [address], , Retail Salesworker: Tres Cm, PhD Result Comment: Plat elet count verified by examination of peripheral blood smear. Performed By: #### C 121, C301, C406, C4176, C116, C48, C8, C45, C400, C115 #### Refer to report for performing lab RBC (Bld) [#/Vol] 4.25 10*6/uL Invalid Interpretation Code 4.14-5.80 [facility] Comment on above: Order Comment: Testi ng performed at: [] [facility], [address] [place] [address], [address], , Retail Salesworker: Tres Cm, PhD Performed By: #### C 121, C301, C406, C4176, C116, C48, C8, C45, C400, C115 #### Refer to report for performing lab WBC (Bld) [#/Vol] 4.8 10*3/uL Invalid Interpretation Code 3.4-10.8 [facility] Comment on above: Order Comment: Testi ng performed at: [] [facility], [address] [place] [address], [address], , Retail Salesworker: Tres Cm, PhD Performed By: #### C 121, C301, C406, C4176, C116, C48, C8, C45, C400, C115 #### Refer to report for performing lab Hepatic Panel (COPC)on 08-03 Bilirubin.indirect [Mass/Vol] 0.67 mg/dL High 0.00-0.40 [facility] Comment on above: Order Comment: Testi ng performed at: [] [facility], [address] [place] [address], [address], , Retail Salesworker: Tres Cm, PhD Performed By: #### C 121, C301, C406, C4176, C116, C48, C8, C45, C400, C115 #### Refer to report for performing lab ALT [Catalytic activity/Vol] 39 U/L Invalid Interpretation Code 0-44 [facility] Comment on above: Order Comment: Testi ng performed at: [] [address], [address], , Retail Salesworker: Tres Cm, PhD Performed By: #### C 121, C301, C406, C4176, C116, C48, C8, C45, C400, C115 #### Refer to report for performing lab AST [Catalytic activity/Vol] 66 U/L High 0-40 [facility] Comment on above: Order Comment: Testi ng performed at: [] [address], [address], , Retail Salesworker: Tres Cm, PhD Performed By: #### C 121, C301, C406, C4176, C116, C48, C8, C45, C400, C115 #### Refer to report for performing lab Albumin [Mass/Vol] 3.0 g/dL Low 4.1-5.1 [facility] Comment on above: Order Comment: Testi ng performed at: [] [facility], [address] [place] [address], [address], , Retail Salesworker: Tres Cm, PhD Performed By: #### C 121, C301, C406, C4176, C116, C48, C8, C45, C400, C115 #### Refer to report for performing lab ALP [Catalytic activity/Vol] 143 U/L High 44-121 [facility] Comment on above: Order Comment: Testi ng performed at: [] [facility], [address] [place] [address], [address], , Retail Salesworker: Tres Cm, PhD Performed By: #### C 121, C301, C406, C4176, C116, C48, C8, C45, C400, C115 #### Refer to report for performing lab Bilirubin [Mass/Vol] 1.8 mg/dL High 0.0-1.2 [facility] Comment on above: Order Comment: Testi ng performed at: [] [facility], [address] [place] [address], [address], , Retail Salesworker: Tres Cm, PhD Performed By: #### C 121, C301, C406, C4176, C116, C48, C8, C45, C400, C115 #### Refer to report for performing lab Protein [Mass/Vol] 7.0 g/dL Invalid Interpretation Code 6.0-8.5 [facility] Comment on above: Order Comment: Testi ng performed at: [] [facility], [address] [place] [address], [address], , Retail Salesworker: Tres Cm, PhD Performed By: #### C 121, C301, C406, C4176, C116, C48, C8, C45, C400, C115 #### Refer to report for performing lab HgbA1C (COPC)on 08-03-2023 HbA1c (Bld) [Mass fraction] 6.6 % High 4.8-5.6 [facility] Comment on above: Order Comment: Testi ng performed at: [] [facility], [address] [place] [address], [address], , Retail Salesworker: Tres Cm, PhD Result Comment: Pred iabetes: 5.7 - 6.4 Diabetes: >6.4 Glycemic control for adults with diabetes: <7.0 Performed By: #### C 121, C301, C406, C4176, C116, C48, C8, C45, C400, C115 #### Refer to report for performing lab Lipid Panel (COPC)on 023 Cholesterol in HDL [Mass/Vol] 37 mg/dL Low >39 [facility] Comment on above: Order Comment: Testi ng performed at: [] [facility], [address] [place] [address], [address], , Retail Salesworker: Tres Cm, PhD Performed By: #### C 121, C301, C406, C4176, C116, C48, C8, C45, C400, C115 #### Refer to report for performing lab LDL Chol Calc (NIH) 120 mg/dL High 0-99 [facility] Comment on above: Order Comment: Testi ng performed at: [] [facility], [address] [place] [address], [address], , Retail Salesworker: Tres Cm, PhD Performed By: #### C 121, C301, C406, C4176, C116, C48, C8, C45, C400, C115 #### Refer to report for performing lab VLDL Cholesterol Elliott 29 mg/dL Invalid Interpretation Code 5-40 [facility] Comment on above: Order Comment: Testi ng performed at: [] [facility], [address] [place] [address], [address], , Retail Salesworker: Tres Cm, PhD Performed By: #### C 121, C301, C406, C4176, C116, C48, C8, C45, C400, C115 #### Refer to report for performing lab Cholesterol [Mass/Vol] 186 mg/dL Invalid Interpretation Code 100-199 [facility] Comment on above: Order Comment: Testi ng performed at: [] [facility], [address] [place] [address], [address], , Retail Salesworker: Tres Cm, PhD Performed By: #### C 121, C301, C406, C4176, C116, C48, C8, C45, C400, C115 #### Refer to report for performing lab Triglyceride [Mass/Vol] 164 mg/dL High 0-149 [facility] Comment on above: Order Comment: Testi ng performed at: [] [facility], [address] [place] [address], [address], , Retail Salesworker: Tres Cm, PhD Performed By: #### C 121, C301, C406, C4176, C116, C48, C8, C45, C400, C115 #### Refer to report for performing lab Magnesium (COPC)on 3 Magnesium [Mass/Vol] 1.9 mg/dL Invalid Interpretation Code 1.6-2.3 [facility] Comment on above: Order Comment: Testi ng performed at: [] [facility], [address] [place] [address], [address], , Retail Salesworker: Tres Cm, PhD Performed By: #### C 121, C301, C406, C4176, C116, C48, C8, C45, C400, C115 #### Refer to report for performing lab Phosphorus (COPC)on 08-03-20 23 Phosphate [Mass/Vol] 3.4 mg/dL Invalid Interpretation Code 2.8-4.1 [facility] Comment on above: Order Comment: Testi ng performed at: [] [facility], [address] [place] [address], [address], , Retail Salesworker: Tres Cm, PhD Performed By: #### C 121, C301, C406, C4176, C116, C48, C8, C45, C400, C115 #### Refer to report for performing lab TSH (COPC)on 08-03-2023 TSH 1.580 uIU/mL Invalid Interpretation Code 0.450-4.50 0 [facility] Comment on above: Order Comment: Testi ng performed at: [] [facility], [address] [place], [address], , Retail Salesworker: Tres Cm, PhD Performed By: #### C 121, C301, C406, C4176, C116, C48, C8, C45, C400, C115 #### Refer to report for performing lab Uric Acid (COPC)on 3 Urate [Mass/Vol] 3.7 mg/dL Low 3.8-8.4 [facility] Comment on above: Order Comment: Testi ng performed at: [] [facility], [address] [place] [address], [address], , Retail Salesworker: Trse Cm, PhD Result Comment: Ther apeutic target for gout patients: <6.0 Performed By: #### C 121, C301, C406, C4176, C116, C48, C8, C45, C400, C115 #### Refer to report for performing lab Urinalysis and Microscopic w / Rfx to Cx ([facility])on 08-03-2023 Bacteria None seen Invalid Interpretation Code None seen/Few [facility] Comment on above: Order Comment: Testi ng performed at: [] [facility], [address] [place] [address], [address], , Retail Salesworker: Tres Cm, PhD Performed By: #### C 121, C301, C406, C4176, C116, C48, C8, C45, C400, C115 #### Refer to report for performing lab Casts None seen Invalid Interpretation Code None seen [facility] Comment on above: Order Comment: Testi ng performed at: [] [facility], [address] [place] [address], [address], , Retail Salesworker: Tres Cm, PhD Performed By: #### C 121, C301, C406, C4176, C116, C48, C8, C45, C400, C115 #### Refer to report for performing lab Epithelial cells LM Ql (Urine sed) None seen Invalid Interpretation Code 0 - 10 [facility] Comment on above: Order Comment: Testi ng performed at: [] [facility], [address] [place] [address], [address], , Retail Salesworker: Tres Cm, PhD Performed By: #### C 121, C301, C406, C4176, C116, C48, C8, C45, C400, C115 #### Refer to report for performing lab RBC 0-2 Invalid Interpretation Code 0 - 2 [facility] Comment on above: Order Comment: Testi ng performed at: [] [facility], [address] [place] [address], [address], , Retail Salesworker: Tres Cm, PhD Performed By: #### C 121, C301, C406, C4176, C116, C48, C8, C45, C400, C115 #### Refer to report for performing lab WBC None seen Invalid Interpretation Code 0 - 5 [facility] Comment on above: Order Comment: Testi ng performed at: [] [facility], [address] [place] [address], [address], , Retail Salesworker: Tres Cm, PhD Performed By: #### C 121, C301, C406, C4176, C116, C48, C8, C45, C400, C115 #### Refer to report for performing lab Appearance (U) Clear Invalid Interpretation Code Clear [facility] Comment on above: Order Comment: Testi ng performed at: [] [facility], [address] [place] [address], [address], , Retail Salesworker: Tres Cm, PhD Performed By: #### C 121, C301, C406, C4176, C116, C48, C8, C45, C400, C115 #### Refer to report for performing lab Bilirubin Ql (U) Negative Invalid Interpretation Code Negative [facility] Comment on above: Order Comment: Testi ng performed at: [] [facility], [address] [place] [address], [address], , Retail Salesworker: Tres Cm, PhD Performed By: #### C 121, C301, C406, C4176, C116, C48, C8, C45, C400, C115 #### Refer to report for performing lab Color (U) Yellow Invalid Interpretation Code Yellow [facility] Comment on above: Order Comment: Testi ng performed at: [] [facility], [address] [place] [address], [address], , Retail Salesworker: Tres Cm, PhD Performed By: #### C 121, C301, C406, C4176, C116, C48, C8, C45, C400, C115 #### Refer to report for performing lab Glucose Ql (U) 3+ Abnormal Negative [facility] Comment on above: Order Comment: Testi ng performed at: [] [facility], [address] [place] [address], [address], , Retail Salesworker: Tres Cm, PhD Performed By: #### C 121, C301, C406, C4176, C116, C48, C8, C45, C400, C115 #### Refer to report for performing lab Ketones Ql (U) Negative Invalid Interpretation Code Negative [facility] Comment on above: Order Comment: Testi ng performed at: [] [facility], [address] [place] [address], [address], , Retail Salesworker: Tres Cm, PhD Performed By: #### C 121, C301, C406, C4176, C116, C48, C8, C45, C400, C115 #### Refer to report for performing lab Microscopic Examination See below: Invalid Interpretation Code [facility] Comment on above: Order Comment: Testi ng performed at: [] [facility], [address] [place] [address], [address], , Retail Salesworker: Tres Cm, PhD Result Comment: Micr oscopic was indicated and was performed. Performed By: #### C 121, C301, C406, C4176, C116, C48, C8, C45, C400, C115 #### Refer to report for performing lab Nitrite, Urine Negative Invalid Interpretation Code Negative [facility] Comment on above: Order Comment: Testi ng performed at: [] [facility], [address] [place] [address], [address], , Retail Salesworker: Tres Cm, PhD Performed By: #### C 121, C301, C406, C4176, C116, C48, C8, C45, C400, C115 #### Refer to report for performing lab Occult Blood Negative Invalid Interpretation Code Negative [facility] Comment on above: Order Comment: Testi ng performed at: [] [facility], [address] [place] [address], [address], , Retail Salesworker: Tres Cm, PhD Performed By: #### C 121, C301, C406, C4176, C116, C48, C8, C45, C400, C115 #### Refer to report for performing lab pH (U) 6.5 [pH] Invalid Interpretation Code 5.0-7.5 [facility] Comment on above: Order Comment: Testi ng performed at: [] [facility], [address] [place] [address], [address], , Retail Salesworker: Tres Cm, PhD Performed By: #### C 121, C301, C406, C4176, C116, C48, C8, C45, C400, C115 #### Refer to report for performing lab Protein Ql (U) Negative Invalid Interpretation Code Negative/T race [facility] Comment on above: Order Comment: Testi ng performed at: [] [facility], [address] [place] [address], [address], , Retail Salesworker: Tres Cm, PhD Performed By: #### C 121, C301, C406, C4176, C116, C48, C8, C45, C400, C115 #### Refer to report for performing lab Specific gravity (U) [Rel density] 1.013 Invalid Interpretation Code 1.005-1.03 0 [facility] Comment on above: Order Comment: Testi ng performed at: [] [facility], [address] [place], [address], , Retail Salesworker: Tres Cm, PhD Performed By: #### C 121, C301, C406, C4176, C116, C48, C8, C45, C400, C115 #### Refer to report for performing lab Urobilinogen,Semi-Qn 0.2 mg/dL Invalid Interpretation Code 0.2-1.0 [facility] Comment on above: Order Comment: Testi ng performed at: [] [facility], [address] [place], [address], , Retail Salesworker: Tres Cm, PhD Performed By: #### C 121, C301, C406, C4176, C116, C48, C8, C45, C400, C115 #### Refer to report for performing lab WBC Esterase Negative Invalid Interpretation Code Negative [facility] Comment on above: Order Comment: Testi ng performed at: [] [facility], [address] [place], [address], , Retail Salesworker: Tres Cm, PhD Performed By: #### C 121, C301, C406, C4176, C116, C48, C8, C45, C400, C115 #### Refer to report for performing lab Urinalysis and Microscopic w / Rfx to Cx ([facility])on 08-02-2023 Microscopic Examination Comment Normal [facility] Comment on above: Order Comment: Testi ng performed at: [] [facility], [address] [facility] [address] [facility], [place], [address], , Retail Salesworker: Tres Cm, PhD Result Comment: Micr oscopic follows if indicated. Performed By: #### C 121, C301, C406, C4176, C116, C48, C8, C45, C400, C115 #### Refer to report for performing lab Urinalysis Reflex Comment Normal [facility] Comment on above: Order Comment: Testi ng performed at: [] [facility], [address], [place], [address], , Retail Salesworker: Tres Cm, PhD Result Comment: This specimen will not reflex to a Urine Culture. Performed By: #### C 121, C301, C406, C4176, C116, C48, C8, C45, C400, C115 #### Refer to report for performing lab Basic Metabolic Panel (COPC) on 04-05-2023 Creatinine [Mass/Vol] 0.65 mg/dL Low 0.76-1.27 [facility] Comment on above: Order Comment: Testi ng performed at: [] [facility], [address] [place] [address], [address], , Retail Salesworker: Tres Cm, PhD Performed By: #### C 121, C301, C406, C4176, C116, C48, C8, C45, C400, C115 #### Refer to report for performing lab GFR/1.73 sq M.predicted among non-blacks MDRD (S/P/Bld) [Vol rate/Area] 119 mL/min/{1.73_m2} Invalid Interpretation Code >59 [facility] Comment on above: Order Comment: Testi ng performed at: [] [facility], [address] [place], [address], , Retail Salesworker: Tres Cm, PhD Performed By: #### C 121, C301, C406, C4176, C116, C48, C8, C45, C400, C115 #### Refer to report for performing lab Urea nitrogen/Creatinine [Mass ratio] 9 mg/mg Invalid Interpretation Code 9-20 [facility] Comment on above: Order Comment: Testi ng performed at: [] [facility], [address] [place], [address], , Retail Salesworker: Tres Cm, PhD Performed By: #### C 121, C301, C406, C4176, C116, C48, C8, C45, C400, C115 #### Refer to report for performing lab Calcium [Mass/Vol] 8.6 mg/dL Low 8.7-10.2 [facility] Comment on above: Order Comment: Testi ng performed at: [] [facility], [address] [place] [address], [address], , Retail Salesworker: Tres Cm, PhD Performed By: #### C 121, C301, C406, C4176, C116, C48, C8, C45, C400, C115 #### Refer to report for performing lab CO2 [Moles/Vol] 25 mmol/L Invalid Interpretation Code [facility] Comment on above: Order Comment: Testi ng performed at: [] [facility], [address] [place] [address], [address], , Retail Salesworker: Tres Cm, PhD Performed By: #### C 121, C301, C406, C4176, C116, C48, C8, C45, C400, C115 #### Refer to report for performing lab Urea nitrogen [Mass/Vol] 6 mg/dL Invalid Interpretation Code 05-07 [facility] Comment on above: Order Comment: Testi ng performed at: [] [facility] [facility], [address] [place] [address], [phone], , Retail Salesworker: Tres Cm, PhD Performed By: #### C 121, C301, C406, C4176, C116, C48, C8, C45, C400, C115 #### Refer to report for performing lab Glucose [Mass/Vol] 107 mg/dL High 70-99 [facility] Comment on above: Order Comment: Testi ng performed at: [] [facility], [address] [place] [address], [phone], , Retail Salesworker: Tres Cm, PhD Performed By: #### C 121, C301, C406, C4176, C116, C48, C8, C45, C400, C115 #### Refer to report for performing lab Potassium [Moles/Vol] 3.9 mmol/L Invalid Interpretation Code 3.5-5.2 [facility] Comment on above: Order Comment: Testi ng performed at: [] [facility], [address] [place] [address], [phone], , Retail Salesworker: Tres Cm, PhD Performed By: #### C 121, C301, C406, C4176, C116, C48, C8, C45, C400, C115 #### Refer to report for performing lab Chloride [Moles/Vol] 102 mmol/L Invalid Interpretation Code 96-106 [facility] Comment on above: Order Comment: Testi ng performed at: [] [facility], [address] [place] [address], [address], , Retail Salesworker: Tres Cm, PhD Performed By: #### C 121, C301, C406, C4176, C116, C48, C8, C45, C400, C115 #### Refer to report for performing lab Sodium [Moles/Vol] 137 mmol/L Invalid Interpretation Code 134-144 [facility] Comment on above: Order Comment: Testi ng performed at: [] [facility], [address] [place] [address], [address], , Retail Salesworker: Tres Cm, PhD Performed By: #### C 121, C301, C406, C4176, C116, C48, C8, C45, C400, C115 #### Refer to report for performing lab CBC with differential (COPC) on 04-05-2023 Basophils (Bld) [#/Vol] 0.1 10*3/uL Invalid Interpretation Code 0.0-0.2 [facility] Comment on above: Order Comment: Testi ng performed at: [] [facility], [address], , Retail Salesworker: Tres Cm, PhD Performed By: #### C 121, C301, C406, C4176, C116, C48, C8, C45, C400, C115 #### Refer to report for performing lab Basophils/100 WBC (Bld) 1 % Invalid Interpretation Code Not Estab. [facility] Comment on above: Order Comment: Testi ng performed at: [] [facility], [address] [place] [address], [phone], , Retail Salesworker: Tres Cm, PhD Performed By: #### C 121, C301, C406, C4176, C116, C48, C8, C45, C400, C115 #### Refer to report for performing lab Eosinophils (Bld) [#/Vol] 0.4 10*3/uL Invalid Interpretation Code 0.0-0.4 [facility] Comment on above: Order Comment: Testi ng performed at: [] [facility], [address] [place] [address], [phone], , Retail Salesworker: Tres Cm, PhD Performed By: #### C 121, C301, C406, C4176, C116, C48, C8, C45, C400, C115 #### Refer to report for performing lab Eosinophils/100 WBC (Bld) 9 % Invalid Interpretation Code Not Estab. [facility] Comment on above: Order Comment: Testi ng performed at: [] [facility], [address] [place] [address], [phone], , Retail Salesworker: Tres Cm, PhD Performed By: #### C 121, C301, C406, C4176, C116, C48, C8, C45, C400, C115 #### Refer to report for performing lab Erythrocyte distribution width (RBC) [Ratio] 16.6 % High 11.6-15.4 [facility] Comment on above: Order Comment: Testi ng performed at: [] [facility], [address] [place] [address], [phone], , Retail Salesworker: Tres Cm, PhD Performed By: #### C 121, C301, C406, C4176, C116, C48, C8, C45, C400, C115 #### Refer to report for performing lab Hematocrit (Bld) [Volume fraction] 38.0 % Invalid Interpretation Code 37.5-51.0 [facility] Comment on above: Order Comment: Testi ng performed at: [] [facility], [address] [place] [address], [address], , Retail Salesworker: Tres Cm, PhD Performed By: #### C 121, C301, C406, C4176, C116, C48, C8, C45, C400, C115 #### Refer to report for performing lab Hematology Comments: Note: Invalid Interpretation Code [facility] Comment on above: Order Comment: Testi ng performed at: [] [facility], [address] [place] [address], [phone], , Retail Salesworker: Tres Cm, PhD Result Comment: Veri fied by microscopic examination. Performed By: #### C 121, C301, C406, C4176, C116, C48, C8, C45, C400, C115 #### Refer to report for performing lab Hemoglobin (Bld) [Mass/Vol] 12.8 g/dL Low 13.0-17.7 [facility] Comment on above: Order Comment: Testi ng performed at: [] [facility], [address] [place] [address], [address], , Retail Salesworker: Tres Cm, PhD Performed By: #### C 121, C301, C406, C4176, C116, C48, C8, C45, C400, C115 #### Refer to report for performing lab Immature Grans (Abs) 0.0 x10E3/uL Invalid Interpretation Code 0.0-0.1 [facility] Comment on above: Order Comment: Testi ng performed at: [] [facility], [address] [place] [address], [address], , Retail Salesworker: Tres Cm, PhD Performed By: #### C 121, C301, C406, C4176, C116, C48, C8, C45, C400, C115 #### Refer to report for performing lab Immature granulocytes/100 WBC (Bld) 0 % Invalid Interpretation Code Not Estab. [facility] Comment on above: Order Comment: Testi ng performed at: [] [facility], [address] [place] [address], [address], , Retail Salesworker: Tres Cm, PhD Performed By: #### C 121, C301, C406, C4176, C116, C48, C8, C45, C400, C115 #### Refer to report for performing lab Lymphocytes (Bld) [#/Vol] 1.1 10*3/uL Invalid Interpretation Code 0.7-3.1 [facility] Comment on above: Order Comment: Testi ng performed at: [] [facility], [address] [place] [address], [address], , Retail Salesworker: Tres Cm, PhD Performed By: #### C 121, C301, C406, C4176, C116, C48, C8, C45, C400, C115 #### Refer to report for performing lab Lymphocytes/100 WBC (Bld) 24 % Invalid Interpretation Code Not Estab. [facility] Comment on above: Order Comment: Testi ng performed at: [] [facility], [address] [place] [address], [address], , Retail Salesworker: Tres Cm, PhD Performed By: #### C 121, C301, C406, C4176, C116, C48, C8, C45, C400, C115 #### Refer to report for performing lab MCH (RBC) [Entitic mass] 28.6 pg Invalid Interpretation Code 26.6-33.0 [facility] Comment on above: Order Comment: Testi ng performed at: [] [address], [address], , Retail Salesworker: Tres Cm, PhD Performed By: #### C 121, C301, C406, C4176, C116, C48, C8, C45, C400, C115 #### Refer to report for performing lab MCHC (RBC) [Mass/Vol] 33.7 g/dL Invalid Interpretation Code 31.5-35.7 [facility] Comment on above: Order Comment: Testi ng performed at: [] [facility], [address] [place] [address], [phone], , Retail Salesworker: Tres Cm, PhD Performed By: #### C 121, C301, C406, C4176, C116, C48, C8, C45, C400, C115 #### Refer to report for performing lab MCV (RBC) [Entitic vol] 85 fL Invalid Interpretation Code 79-97 [facility] Comment on above: Order Comment: Testi ng performed at: [] [facility], [address] [place] [address], [phone], , Retail Salesworker: Tres Cm, PhD Performed By: #### C 121, C301, C406, C4176, C116, C48, C8, C45, C400, C115 #### Refer to report for performing lab Monocytes (Bld) [#/Vol] 0.7 10*3/uL Invalid Interpretation Code 0.1-0.9 [facility] Comment on above: Order Comment: Testi ng performed at: [] [facility], [address] [place] [address], [address], , Retail Salesworker: Tres Cm, PhD Performed By: #### C 121, C301, C406, C4176, C116, C48, C8, C45, C400, C115 #### Refer to report for performing lab Monocytes/100 WBC (Bld) 15 % Invalid Interpretation Code Not Estab. [facility] Comment on above: Order Comment: Testi ng performed at: [] [facility], [address] [place] [address], [address], , Retail Salesworker: Tres Cm, PhD Performed By: #### C 121, C301, C406, C4176, C116, C48, C8, C45, C400, C115 #### Refer to report for performing lab Neutrophils (Absolute) 2.5 x10E3/uL Invalid Interpretation Code 1.4-7.0 [facility] Comment on above: Order Comment: Testi ng performed at: [] [facility], [address] [place] [address], [address], , Retail Salesworker: Tres Cm, PhD Performed By: #### C 121, C301, C406, C4176, C116, C48, C8, C45, C400, C115 #### Refer to report for performing lab Neutrophils/100 WBC (Bld) 51 % Invalid Interpretation Code Not Estab. [facility] Comment on above: Order Comment: Testi ng performed at: [] [facility], [address] [place] [address], [address], , Retail Salesworker: Tres Cm, PhD Performed By: #### C 121, C301, C406, C4176, C116, C48, C8, C45, C400, C115 #### Refer to report for performing lab Platelets (Bld) [#/Vol] 81 10*3/uL Critically low 150-450 [facility] Comment on above: Order Comment: Testi ng performed at: [] [facility], [address] [place] [address], [phone], , Retail Salesworker: Tres Cm, PhD Result Comment: Plat elet count verified by examination of peripheral blood smear. Performed By: #### C 121, C301, C406, C4176, C116, C48, C8, C45, C400, C115 #### Refer to report for performing lab RBC (Bld) [#/Vol] 4.47 10*6/uL Invalid Interpretation Code 4.14-5.80 [facility] Comment on above: Order Comment: Testi ng performed at: [] [facility], [address] [place] [address], [phone], , Retail Salesworker: Tres Cm, PhD Performed By: #### C 121, C301, C406, C4176, C116, C48, C8, C45, C400, C115 #### Refer to report for performing lab WBC (Bld) [#/Vol] 4.8 10*3/uL Invalid Interpretation Code 3.4-10.8 [facility] Comment on above: Order Comment: Testi ng performed at: [] [facility], [address] [place] [address], [address], , Retail Salesworker: Tres Cm, PhD Result Comment: Ve rified by repeat analysis Performed By: #### C 121, C301, C406, C4176, C116, C48, C8, C45, C400, C115 #### Refer to report for performing lab GGT (COPC)on 04-05-2023 Gamma glutamyl transferase [Catalytic activity/Vol] 47 U/L Invalid Interpretation Code 0-65 [facility] Comment on above: Order Comment: Testi ng performed at: [] [facility], [address] [place], [address], , Retail Salesworker: Tres Cm, PhD Performed By: #### C 121, C301, C406, C4176, C116, C48, C8, C45, C400, C115 #### Refer to report for performing lab Hepatic Panel (COPC)on 04-05 Bilirubin.indirect [Mass/Vol] 0.68 mg/dL High 0.00-0.40 [facility] Comment on above: Order Comment: Testi ng performed at: [] [facility], [address] [place] [address], [address], , Retail Salesworker: Tres Cm, PhD Performed By: #### C 121, C301, C406, C4176, C116, C48, C8, C45, C400, C115 #### Refer to report for performing lab ALT [Catalytic activity/Vol] 74 U/L High 0-44 [facility] Comment on above: Order Comment: Testi ng performed at: [] [facility], [address] [place] [address], [address], , Retail Salesworker: Tres Cm, PhD Performed By: #### C 121, C301, C406, C4176, C116, C48, C8, C45, C400, C115 #### Refer to report for performing lab ALP [Catalytic activity/Vol] 180 U/L High 44-121 [facility] Comment on above: Order Comment: Testi ng performed at: [] [facility], [address] [place] [address], [address], , Retail Salesworker: Tres Cm, PhD Performed By: #### C 121, C301, C406, C4176, C116, C48, C8, C45, C400, C115 #### Refer to report for performing lab AST [Catalytic activity/Vol] 89 U/L High 0-40 [facility] Comment on above: Order Comment: Testi ng performed at: [] [facility], [address] [place] [address], [phone], , Retail Salesworker: Tres Cm, PhD Performed By: #### C 121, C301, C406, C4176, C116, C48, C8, C45, C400, C115 #### Refer to report for performing lab Bilirubin [Mass/Vol] 1.6 mg/dL High 0.0-1.2 [facility] Comment on above: Order Comment: Testi ng performed at: [] [facility], [address] [place], [place] [address], [address], , Retail Salesworker: Tres Cm, PhD Performed By: #### C 121, C301, C406, C4176, C116, C48, C8, C45, C400, C115 #### Refer to report for performing lab Albumin [Mass/Vol] 3.0 g/dL Low 4.0-5.0 [facility] Comment on above: Order Comment: Testi ng performed at: [] [facility], [address] [place] [address], [address], , Retail Salesworker: Tres Cm, PhD Performed By: #### C 121, C301, C406, C4176, C116, C48, C8, C45, C400, C115 #### Refer to report for performing lab Protein [Mass/Vol] 7.1 g/dL Invalid Interpretation Code 6.0-8.5 [facility] Comment on above: Order Comment: Testi ng performed at: [] [facility], [address] [place] [address], [address], , Retail Salesworker: Tres Cm, PhD Performed By: #### C 121, C301, C406, C4176, C116, C48, C8, C45, C400, C115 #### Refer to report for performing lab HgbA1C ([facility])on 04-05-2023 HbA1c (Bld) [Mass fraction] 6.8 % High 4.8-5.6 [facility] Comment on above: Order Comment: Testi ng performed at: [] [facility], [address] [place], [address], , Retail Salesworker: Tres Cm, PhD Result Comment: Pred iabetes: 5.7 - 6.4 Diabetes: >6.4 Glycemic control for adults with diabetes: <7.0 Performed By: #### C 121, C301, C406, C4176, C116, C48, C8, C45, C400, C115 #### Refer to report for performing lab Magnesium (COPC)on 3 Magnesium [Mass/Vol] 1.9 mg/dL Invalid Interpretation Code 1.6-2.3 [facility] Comment on above: Order Comment: Testi ng performed at: [] [facility], [address] [place] [address], [phone], , Retail Salesworker: Tres Cm, PhD Performed By: #### C 121, C301, C406, C4176, C116, C48, C8, C45, C400, C115 #### Refer to report for performing lab Phosphorus (COPC)on 04-05-20 23 Phosphate [Mass/Vol] 3.8 mg/dL Invalid Interpretation Code 2.8-4.1 [facility] Comment on above: Order Comment: Testi ng performed at: [] [facility], [address] [place] [address], [phone], , Retail Salesworker: Tres Cm, PhD Performed By: #### C 121, C301, C406, C4176, C116, C48, C8, C45, C400, C115 #### Refer to report for performing lab Lipid Panel (COPC)on 023 Cholesterol, Total Test Not Performed. Normal [facility] Comment on above: Order Comment: Testi ng performed at: [] [facility], [address] [place] [address], [phone], , Retail Salesworker: Tres Cm, PhD Result Comment: Requ est for additional testing has been received, however, we are unable to add on the test(s) requested. The following test(s) were not performed. Contacted Angela Cohen at your facility 04/12/23. Performed By: #### C 121, C301, C406, C4176, C116, C48, C8, C45, C400, C115 #### Refer to report for performing lab HDL Cholesterol Test Not Performed. Normal [facility] Comment on above: Order Comment: Testi ng performed at: [] [facility], [address] [place] [address], [address], , Retail Salesworker: Tres Cm, PhD Result Comment: Test not performed Performed By: #### C 121, C301, C406, C4176, C116, C48, C8, C45, C400, C115 #### Refer to report for performing lab Triglycerides Test Not Performed. Normal [facility] Comment on above: Order Comment: Testi ng performed at: [] [facility], [address] [place] [address], [address], , Retail Salesworker: Tres Cm, PhD Result Comment: Test not performed Performed By: #### C 121, C301, C406, C4176, C116, C48, C8, C45, C400, C115 #### Refer to report for performing lab VLDL Cholesterol Elliott Test Not Performed. Normal [facility] Comment on above: Order Comment: Testi ng performed at: [] [facility], [address] [place] [address], [phone], , Retail Salesworker: Tres Cm, PhD Result Comment: Unab le to calculate result since non-numeric result obtained for component test. Performed By: #### C 121, C301, C406, C4176, C116, C48, C8, C45, C400, C115 #### Refer to report for performing lab Written Authorizationon 03-15 Written Authorization Comment Normal [facility] Comment on above: Order Comment: Testi ng performed at: [] [facility], [address] [place] [address], [address], , Retail Salesworker: Tres Cm, PhD Result Comment: Writ ten Authorization Received. Authorization received from Written Request 04-12-2023 Logged by Danny Bunn Performed By: #### C 121, C301, C406, C4176, C116, C48, C8, C45, C400, C115 #### Refer to report for performing lab Marissa 02-16-2023 Esophagogastroduodenosc opy [facility] Patient Name: Leon Rider Procedure Date: [...] was normal. Procedure Code(s): --- Professional --- 28409, Esophagogastroduodenosc opy, flexible, transoral; diagnostic, including collection of specimen(s) by brushing or washing, when performed (separate procedure) Diagnosis Code(s): --- Professional --- I85.00, Esophageal varices without bleeding K76.6, Portal hypertension K31.89, Other diseases of stomach and duodenum K31.819, Angiodysplasia of stomach and duodenum without bleeding CPT copyright 2020 [employer]. All rights reserved. The codes documented in this report are preliminary and upon financial project manager review may be revised to meet current compliance requirements. MD VINCENT Chiang MD 02/16/2023 9:28:58 AM This report has been signed electronically. Estimated Blood Loss: Estimated blood loss: none. Number of Addenda: 0 Note Initiated On: 02/16/2023 9:03 AM Total Procedure Duration Time 0 hours 2 minutes 20 seconds [address] [place] [address] IMPRESSION: - Z-line regular, 40 cm from [...] months for surveillance. Normal [facility] EGD Anesthesia - MAC; [facility] E NDOSCOPYon 02-16-2023 - Z-line regular, 40 cm [...] upper endoscopy in 6 months for surveillance. [facility] GI Patient Name: Leon Rider [...] was normal. Procedure Code(s): --- Professional --- 27257, Esophagogastroduodenosc opy, flexible, transoral; diagnostic, including collection of specimen(s) by brushing or washing, when performed (separate procedure) Diagnosis Code(s): --- Professional --- I85.00, Esophageal varices without bleeding K76.6, Portal hypertension K31.89, Other diseases of stomach and duodenum K31.819, Angiodysplasia of stomach and duodenum without bleeding CPT copyright 2020 [employer]. All rights reserved. The codes documented in this report are preliminary and upon financial project manager review may be revised to meet current compliance requirements. MD VINCENT Chiang MD 02/16/2023 9:28:58 AM This report has been signed electronically. Estimated Blood Loss: Estimated blood loss: none. Number of Addenda: 0 Note Initiated On: 02/16/2023 9:03 AM Total Procedure Duration Time 0 hours 2 minutes 20 seconds [address] [place] [address] [facility] Vincent Moses MD - 02/16/2023 [facility] GI Patient Name: Leon Rider Procedure Date: [...] was normal. Procedure Code(s): --- Professional --- 03435, Esophagogastroduodenosc opy, flexible, transoral; diagnostic, including collection of specimen(s) by brushing or washing, when performed (separate procedure) Diagnosis Code(s): --- Professional --- I85.00, Esophageal varices without bleeding K76.6, Portal hypertension K31.89, Other diseases of stomach and duodenum K31.819, Angiodysplasia of stomach and duodenum without bleeding CPT copyright 2020 [employer]. All rights reserved. The codes documented in this report are preliminary and upon financial project manager review may be revised to meet current compliance requirements. MD VINCENT Chiang MD 02/16/2023 9:28:58 AM This report has been signed electronically. Estimated Blood Loss: Estimated blood loss: none. Number of Addenda: 0 Note Initiated On: 02/16/2023 9:03 AM Total Procedure Duration Time 0 hours 2 minutes [address] seconds [address] [place] [address] IMPRESSION: - Z-line regular, 40 cm from [...] upper endoscopy in 6 months for surveillance. GI Track Radiology Study observation (narrative) [employer] Glucose Auto test strip (Bld ) [Mass/Vol]on 02-16-2023 Glucose [Mass/Vol] 158 mg/dL High 70-[address] [facility] Comment on above: Performed By: #### 2 340-8 #### [facility]) [facility] [address] [place] [address] Glucose [Mass/Vol] 158 mg/dL High 70 - 99 mg/dL [employer] Interpretation and review of laboratory results Abnormal GI Track [facility] 12-23-2022 Esophagogastroduodenosc opy [facility] Patient Name: Leon Rider Procedure Date: [...] oxygen saturations were monitored continuously. The [id number] Endoscope was introduced through the mouth, and [...] was normal. Procedure Code(s): --- Professional --- 74051, Esophagogastroduodenosc opy, flexible, transoral; with band ligation of esophageal/gastric varices Diagnosis Code(s): --- Professional --- I85.00, Esophageal varices without bleeding K76.6, Portal hypertension K31.89, Other diseases of stomach and duodenum CPT copyright 2020 [employer]. All rights reserved. The codes documented in this report are preliminary and upon financial project manager review may be revised to meet current compliance requirements. MD Paul Khan MD 12/23/2022 10:36:45 AM This report has been signed electronically. Estimated Blood Loss: Estimated blood loss: none. Number of Addenda: 0 Note Initiated On: 12/23/2022 10:12 AM Total Procedure Duration Time 0 hours 6 minutes 30 seconds [address] [place] [address] IMPRESSION: - Grade II esophageal varices. Completely [...] as previously scheduled. Normal [facility] EGD Anesthesia - [facility]; [facility] E NDOSCOPYon 12-23-2022 - Grade II esophagea l varices. Completely eradicated. Banded. - Portal hypertensive [...] Return to GI office as previously scheduled. [facility] GI Patient Name: Leon Rider [...] oxygen saturations were monitored continuously. The [id number]-[id number] Endoscope was introduced through the mouth, and [...] was normal. Procedure Code(s): --- Professional --- 28723, Esophagogastroduodenosc opy, flexible, transoral; with band ligation of esophageal/gastric varices Diagnosis Code(s): --- Professional --- I85.00, Esophageal varices without bleeding K76.6, Portal hypertension K31.89, Other diseases of stomach and duodenum CPT copyright 2020 [employer]. All rights reserved. The codes documented in this report are preliminary and upon financial project manager review may be revised to meet current compliance requirements. MD Paul Khan MD 12/23/2022 10:36:45 AM This report has been signed elect (more content not included)... [facility] Paul Mishra V - 12/23/2022 [facility] GI Patient Name: Leon Rider Procedure Date: [...] oxygen saturations were monitored continuously. The [id number] Endoscope was introduced through the mouth, and [...] was normal. Procedure Code(s): --- Professional --- 66458, Esophagogastroduodenosc opy, flexible, transoral; with band ligation of esophageal/gastric varices Diagnosis Code(s): --- Professional --- I85.00, Esophageal varices without bleeding K76.6, Portal hypertension K31.89, Other diseases of stomach and duodenum CPT copyright 2020 [employer]. All rights reserved. The codes documented in this report are preliminary and upon financial project manager review may be revised to meet current compliance requirements. MD Paul Khan MD 12/23/2022 10:36:45 AM This report has been signed electronically. Estimated Blood Loss: Estimated blood loss: none. Number of Addenda: 0 Note Initiated On: 12/23/2022 10:12 AM Total Procedure Duration Time 0 hours 6 minutes 30 seconds [address] [place] [address] IMPRESSION: - Grade II esophageal varices. Completely [...] Return to GI office as previously scheduled. [facility] Radiology Study observation (narrative) [employer] Glucose Auto test strip (Bld ) [Mass/Vol]on 12-23-2022 Glucose [Mass/Vol] 135 mg/dL High 70-[address] [facility] Comment on above: Performed By: #### 2 340-8 #### [facility] ([facility]) [facility] [address] [place] [address] Glucose [Mass/Vol] 135 mg/dL High 70 - 99 mg/dL [employer] Interpretation and review of laboratory results Abnormal GI Track Basic Metabolic Panel (COPC) on 11-21-2022 CO2 [Moles/Vol] 24 mmol/L Invalid Interpretation Code 20-29 [facility] Comment on above: Order Comment: Testi ng performed at: [CB] [facility], [address] [place] [address], [address], , Retail Salesworker: Tres Cm, PhD Performed By: #### C 121, C301, C406, C4176, C116, C48, C8, C45, C400, C115 #### Refer to report for performing lab Creatinine [Mass/Vol] 0.63 mg/dL Low 0.76-1.27 [facility] Comment on above: Order Comment: Testi ng performed at: [CB] [facility], [address] [place] [address], [place], [address], , Retail Salesworker: Tres Cm, PhD Performed By: #### C 121, C301, C406, C4176, C116, C48, C8, C45, C400, C115 #### Refer to report for performing lab GFR/1.73 sq M.predicted among non-blacks MDRD (S/P/Bld) [Vol rate/Area] 120 mL/min/{1.73_m2} Invalid Interpretation Code >59 [facility] Comment on above: Order Comment: Testi ng performed at: [CB] [facility], [address] [place], [address], , Retail Salesworker: Tres Cm, PhD Performed By: #### C 121, C301, C406, C4176, C116, C48, C8, C45, C400, C115 #### Refer to report for performing lab Potassium [Moles/Vol] 3.6 mmol/L Invalid Interpretation Code 3.5-5.2 [facility] Comment on above: Order Comment: Testi ng performed at: [] [facility], [address] [place] [address], [address], , Retail Salesworker: Tres Cm, PhD Performed By: #### C 121, C301, C406, C4176, C116, C48, C8, C45, C400, C115 #### Refer to report for performing lab Urea nitrogen [Mass/Vol] 5 mg/dL Low 6-24 [facility] Comment on above: Order Comment: Testi ng performed at: [] [facility], [address] [place] [address], [address], , Retail Salesworker: Tres Cm, PhD Performed By: #### C 121, C301, C406, C4176, C116, C48, C8, C45, C400, C115 #### Refer to report for performing lab Urea nitrogen/Creatinine [Mass ratio] 8 mg/mg Low 9-20 [facility] Comment on above: Order Comment: Testi ng performed at: [] [facility], [address] [place] [address], [address], , Retail Salesworker: Tres Cm, PhD Performed By: #### C 121, C301, C406, C4176, C116, C48, C8, C45, C400, C115 #### Refer to report for performing lab Glucose [Mass/Vol] 108 mg/dL High 70-[address] [facility] Comment on above: Order Comment: Testi ng performed at: [] [facility], [address] [place] [address], [address], , Retail Salesworker: Tres Cm, PhD Performed By: #### C 121, C301, C406, C4176, C116, C48, C8, C45, C400, C115 #### Refer to report for performing lab Calcium [Mass/Vol] 8.6 mg/dL Low 8.7-10.[address] [facility] Comment on above: Order Comment: Testfito ng performed at: [] [facility], [address] [place] [address], [address], , Retail Salesworker: Tres Cm, PhD Performed By: #### C 121, C301, C406, C4176, C116, C48, C8, C45, C400, C115 #### Refer to report for performing lab Sodium [Moles/Vol] 136 mmol/L Invalid Interpretation Code 134-144 [facility] Comment on above: Order Comment: Testfito ng performed at: [] [facility], [address] [place] [address], [address], , Retail Salesworker: Tres Cm, PhD Performed By: #### C 121, C301, C406, C4176, C116, C48, C8, C45, C400, C115 #### Refer to report for performing lab Chloride [Moles/Vol] 100 mmol/L Invalid Interpretation Code 96-106 [facility] Comment on above: Order Comment: Testfito ng performed at: [] [facility], [address] [place] [address], [address], , Retail Salesworker: Tres Cm, PhD Performed By: #### C 121, C301, C406, C4176, C116, C48, C8, C45, C400, C115 #### Refer to report for performing lab CBC with differential (COPC) on 11-21-2022 Basophils (Bld) [#/Vol] 0.1 10*3/uL Invalid Interpretation Code 0.0-0.2 [facility] Comment on above: Order Comment: Testi ng performed at: [CB] [facility], [address] [place], [address], , Retail Salesworker: Tres Cm, PhD Performed By: #### C 121, C301, C406, C4176, C116, C48, C8, C45, C400, C115 #### Refer to report for performing lab Basophils/100 WBC (Bld) 2 % Invalid Interpretation Code Not Estab. [facility] Comment on above: Order Comment: Testi ng performed at: [] [facility], [address] [place] [address], [address], , Retail Salesworker: Tres Cm, PhD Performed By: #### C 121, C301, C406, C4176, C116, C48, C8, C45, C400, C115 #### Refer to report for performing lab Eosinophils (Bld) [#/Vol] 0.4 10*3/uL Invalid Interpretation Code 0.0-0.4 [facility] Comment on above: Order Comment: Testi ng performed at: [] [facility], [address] [place], [address], , Retail Salesworker: Tres Cm, PhD Performed By: #### C 121, C301, C406, C4176, C116, C48, C8, C45, C400, C115 #### Refer to report for performing lab Eosinophils/100 WBC (Bld) 8 % Invalid Interpretation Code Not Estab. [facility] Comment on above: Order Comment: Testi ng performed at: [] [facility], [address] [place], [address], , Retail Salesworker: Tres Cm, PhD Performed By: #### C 121, C301, C406, C4176, C116, C48, C8, C45, C400, C115 #### Refer to report for performing lab Erythrocyte distribution width (RBC) [Ratio] 14.9 % Invalid Interpretation Code 11.6-15.4 [facility] Comment on above: Order Comment: Testi ng performed at: [] [facility], [address] [place] [address], [address], , Retail Salesworker: Tres Cm, PhD Performed By: #### C 121, C301, C406, C4176, C116, C48, C8, C45, C400, C115 #### Refer to report for performing lab Hematocrit (Bld) [Volume fraction] 38.1 % Invalid Interpretation Code 37.5-51.0 [facility] Comment on above: Order Comment: Testi ng performed at: [] [facility], [address] [place] [address], [address], , Retail Salesworker: Tres Cm, PhD Performed By: #### C 121, C301, C406, C4176, C116, C48, C8, C45, C400, C115 #### Refer to report for performing lab Hematology Comments: Note: Invalid Interpretation Code [facility] Comment on above: Order Comment: Testi ng performed at: [] [facility], [address] [place] [address], [address], , Retail Salesworker: Tres Cm, PhD Result Comment: Veri fied by microscopic examination. Performed By: #### C 121, C301, C406, C4176, C116, C48, C8, C45, C400, C115 #### Refer to report for performing lab Hemoglobin (Bld) [Mass/Vol] 12.9 g/dL Low 13.0-17.7 [facility] Comment on above: Order Comment: Testi ng performed at: [] [facility], [address] [place] [address], [address], , Retail Salesworker: Tres Cm, PhD Performed By: #### C 121, C301, C406, C4176, C116, C48, C8, C45, C400, C115 #### Refer to report for performing lab Immature Grans (Abs) 0.0 x10E3/uL Invalid Interpretation Code 0.0-0.1 [facility] Comment on above: Order Comment: Testi ng performed at: [] [address], [address], , Retail Salesworker: Tres Cm, PhD Performed By: #### C 121, C301, C406, C4176, C116, C48, C8, C45, C400, C115 #### Refer to report for performing lab Immature granulocytes/100 WBC (Bld) 0 % Invalid Interpretation Code Not Estab. [facility] Comment on above: Order Comment: Testi ng performed at: [] [address], [address], , Retail Salesworker: Tres Cm, PhD Performed By: #### C 121, C301, C406, C4176, C116, C48, C8, C45, C400, C115 #### Refer to report for performing lab Lymphocytes (Bld) [#/Vol] 1.0 10*3/uL Invalid Interpretation Code 0.7-3.1 [facility] Comment on above: Order Comment: Testi ng performed at: [] [facility], [address] [place] [address], [address], , Retail Salesworker: Tres Cm, PhD Performed By: #### C 121, C301, C406, C4176, C116, C48, C8, C45, C400, C115 #### Refer to report for performing lab Lymphocytes/100 WBC (Bld) 23 % Invalid Interpretation Code Not Estab. [facility] Comment on above: Order Comment: Testi ng performed at: [] [facility], [address] [place] [address], [address], , Retail Salesworker: Tres Cm, PhD Performed By: #### C 121, C301, C406, C4176, C116, C48, C8, C45, C400, C115 #### Refer to report for performing lab MCH (RBC) [Entitic mass] 29.2 pg Invalid Interpretation Code 26.6-33.0 [facility] Comment on above: Order Comment: Testi ng performed at: [] [facility], [address] [place] [address], [address], , Retail Salesworker: Tres Cm, PhD Performed By: #### C 121, C301, C406, C4176, C116, C48, C8, C45, C400, C115 #### Refer to report for performing lab MCHC (RBC) [Mass/Vol] 33.9 g/dL Invalid Interpretation Code 31.5-35.7 [facility] Comment on above: Order Comment: Testi ng performed at: [] [facility], [address] [place] [address], [address], , Retail Salesworker: Tres Cm, PhD Performed By: #### C 121, C301, C406, C4176, C116, C48, C8, C45, C400, C115 #### Refer to report for performing lab MCV (RBC) [Entitic vol] 86 fL Invalid Interpretation Code 79-97 [facility] Comment on above: Order Comment: Testi ng performed at: [] [facility], [address] [place] [address], [address], , Retail Salesworker: Tres Cm, PhD Performed By: #### C 121, C301, C406, C4176, C116, C48, C8, C45, C400, C115 #### Refer to report for performing lab Monocytes (Bld) [#/Vol] 0.7 10*3/uL Invalid Interpretation Code 0.1-0.9 [facility] Comment on above: Order Comment: Testi ng performed at: [] [facility], [address] [place], [address], , Retail Salesworker: Tres Cm, PhD Performed By: #### C 121, C301, C406, C4176, C116, C48, C8, C45, C400, C115 #### Refer to report for performing lab Monocytes/100 WBC (Bld) 15 % Invalid Interpretation Code Not Estab. [facility] Comment on above: Order Comment: Testi ng performed at: [] [facility], [address] [place] [address], [address], , Retail Salesworker: Tres Cm, PhD Performed By: #### C 121, C301, C406, C4176, C116, C48, C8, C45, C400, C115 #### Refer to report for performing lab Neutrophils (Absolute) 2.2 x10E3/uL Invalid Interpretation Code 1.4-7.0 [facility] Comment on above: Order Comment: Testi ng performed at: [] [facility], [address] [place] [address], [address], , Retail Salesworker: Tres Cm, PhD Performed By: #### C 121, C301, C406, C4176, C116, C48, C8, C45, C400, C115 #### Refer to report for performing lab Neutrophils/100 WBC (Bld) 52 % Invalid Interpretation Code Not Estab. [facility] Comment on above: Order Comment: Testi ng performed at: [] [facility], [address] [place] [address], [address], , Retail Salesworker: Tres Cm, PhD Performed By: #### C 121, C301, C406, C4176, C116, C48, C8, C45, C400, C115 #### Refer to report for performing lab Platelets (Bld) [#/Vol] 84 10*3/uL Critically low 150-450 [facility] Comment on above: Order Comment: Testi ng performed at: [] [facility], [address] [place] [address], [address], , Retail Salesworker: Tres Cm, PhD Result Comment: Plat elet count verified by examination of peripheral blood smear. Performed By: #### C 121, C301, C406, C4176, C116, C48, C8, C45, C400, C115 #### Refer to report for performing lab RBC (Bld) [#/Vol] 4.42 10*6/uL Invalid Interpretation Code 4.14-5.80 [facility] Comment on above: Order Comment: Testi ng performed at: [] [facility], [address] [place] [address], [address], , Retail Salesworker: Tres Cm, PhD Performed By: #### C 121, C301, C406, C4176, C116, C48, C8, C45, C400, C115 #### Refer to report for performing lab WBC (Bld) [#/Vol] 4.3 10*3/uL Invalid Interpretation Code 3.4-10.8 [facility] Comment on above: Order Comment: Testi ng performed at: [] [facility], [address] [place] [address], [address], , Retail Salesworker: Tres Cm, PhD Result Comment: Ve rified by repeat analysis Performed By: #### C 121, C301, C406, C4176, C116, C48, C8, C45, C400, C115 #### Refer to report for performing lab GGT (COPC)on 11-21-2022 Gamma glutamyl transferase [Catalytic activity/Vol] 59 U/L Invalid Interpretation Code 0-65 [facility] Comment on above: Order Comment: Testi ng performed at: [] [facility], [address] [place], [address], , Retail Salesworker: Tres Cm, PhD Performed By: #### C 121, C301, C406, C4176, C116, C48, C8, C45, C400, C115 #### Refer to report for performing lab Hepatic Panel (COPC)on 11-21 Bilirubin.indirect [Mass/Vol] 0.65 mg/dL High 0.00-0.40 [facility] Comment on above: Order Comment: Testi ng performed at: [] [address], [address], , Retail Salesworker: Tres Cm, PhD Performed By: #### C 121, C301, C406, C4176, C116, C48, C8, C45, C400, C115 #### Refer to report for performing lab AST [Catalytic activity/Vol] 72 U/L High 0-40 [facility] Comment on above: Order Comment: Testi ng performed at: [] [address], [address], , Retail Salesworker: Tres Cm, PhD Performed By: #### C 121, C301, C406, C4176, C116, C48, C8, C45, C400, C115 #### Refer to report for performing lab ALP [Catalytic activity/Vol] 188 U/L High 44-121 [facility] Comment on above: Order Comment: Testi ng performed at: [] [address], [address], , Retail Salesworker: Tres Cm, PhD Performed By: #### C 121, C301, C406, C4176, C116, C48, C8, C45, C400, C115 #### Refer to report for performing lab ALT [Catalytic activity/Vol] 46 U/L High 0-44 [facility] Comment on above: Order Comment: Testi ng performed at: [] [address], [address], , Retail Salesworker: Tres Cm, PhD Performed By: #### C 121, C301, C406, C4176, C116, C48, C8, C45, C400, C115 #### Refer to report for performing lab Albumin [Mass/Vol] 3.1 g/dL Low 4.0-5.0 [facility] Comment on above: Order Comment: Testi ng performed at: [] [facility], [address] [place] [address], [address], , Retail Salesworker: Tres Cm, PhD Performed By: #### C 121, C301, C406, C4176, C116, C48, C8, C45, C400, C115 #### Refer to report for performing lab Bilirubin [Mass/Vol] 1.7 mg/dL High 0.0-1.2 [facility] Comment on above: Order Comment: Testi ng performed at: [] [facility], [address] [place] [address], [address], , Retail Salesworker: Tres Cm, PhD Performed By: #### C 121, C301, C406, C4176, C116, C48, C8, C45, C400, C115 #### Refer to report for performing lab Protein [Mass/Vol] 7.4 g/dL Invalid Interpretation Code 6.0-8.5 [facility] Comment on above: Order Comment: Testi ng performed at: [] [facility], [address] [place] [address], [address], , Retail Salesworker: Tres Cm, PhD Performed By: #### C 121, C301, C406, C4176, C116, C48, C8, C45, C400, C115 #### Refer to report for performing lab HgbA1C (COPC)on 11-21-2022 HbA1c (Bld) [Mass fraction] 6.6 % High 4.8-5.6 [facility] Comment on above: Order Comment: Testi ng performed at: [] [facility], [address] [place] [address], [address], , Retail Salesworker: Tres Cm, PhD Result Comment: Pred iabetes: 5.7 - 6.4 Diabetes: >6.4 Glycemic control for adults with diabetes: <7.0 Performed By: #### C 121, C301, C406, C4176, C116, C48, C8, C45, C400, C115 #### Refer to report for performing lab Lipid Panel (COPC)on 023 Cholesterol in HDL [Mass/Vol] 48 mg/dL Invalid Interpretation Code >39 [facility] Comment on above: Order Comment: Testi ng performed at: [] [facility], [address] [place] [address], [address], , Retail Salesworker: Tres Cm, PhD Performed By: #### C 121, C301, C406, C4176, C116, C48, C8, C45, C400, C115 #### Refer to report for performing lab LDL Chol Calc ([facility]) 151 mg/dL High 0-99 [facility] Comment on above: Order Comment: Testi ng performed at: [[employer]] [facility], [address] [place] [address], [address], , Retail Salesworker: Tres Cm, PhD Performed By: #### C 121, C301, C406, C4176, C116, C48, C8, C45, C400, C115 #### Refer to report for performing lab VLDL Cholesterol Elliott 25 mg/dL Invalid Interpretation Code 5-40 [facility] Comment on above: Order Comment: Testi ng performed at: [[employer]] [facility], [address] [place] [address], [address], , Retail Salesworker: Tres Cm, PhD Performed By: #### C 121, C301, C406, C4176, C116, C48, C8, C45, C400, C115 #### Refer to report for performing lab Triglyceride [Mass/Vol] 139 mg/dL Invalid Interpretation Code 0-149 [facility] Comment on above: Order Comment: Testi ng performed at: [[employer]] [facility], [address] [place] [address], [address], , Retail Salesworker: Tres Cm, PhD Performed By: #### C 121, C301, C406, C4176, C116, C48, C8, C45, C400, C115 #### Refer to report for performing lab Cholesterol [Mass/Vol] 224 mg/dL High 100-199 [facility] Comment on above: Order Comment: Testi ng performed at: [CB] [facility], [address] [place], [address], , Retail Salesworker: Tres Cm, PhD Performed By: #### C 121, C301, C406, C4176, C116, C48, C8, C45, C400, C115 #### Refer to report for performing lab Magnesium ([facility])on Magnesium [Mass/Vol] 2.0 mg/dL Invalid Interpretation Code 1.6-2.3 [facility] Comment on above: Order Comment: Testi ng performed at: [CB] [facility], [address] [place], [address], , Retail Salesworker: Tres Cm, PhD Performed By: #### C 121, C301, C406, C4176, C116, C48, C8, C45, C400, C115 #### Refer to report for performing lab PSA, Free and Total ([facility])o n 11-21-2022 % Free PSA 50.0 % Invalid Interpretation Code [facility] Comment on above: Order Comment: Testi ng performed at: [CB] [facility], [address] [place], [address], , Retail Salesworker: Tres Cm, PhD Result Comment: The table [...] Order Comment: Testi ng performed at: [] [facility], [address] [place] [address], [address], , Retail Salesworker: Tres Cm, PhD Result Comment: Roch saturnino ECLIA methodology. According to the [employer] [employer], Serum PSA should decrease and [...] Order Comment: Testi ng performed at: [] [facility], [address] [place], [address], , Retail Salesworker: Tres Cm, PhD Result Comment: Mike matamoros ECLIA methodology. Performed By: #### C 121, C301, C406, C4176, C116, C48, C8, C45, C400, C115 #### Refer to report for performing lab Phosphorus (COPC)on 11-21-19 23 Phosphate [Mass/Vol] 4.0 mg/dL Invalid Interpretation Code 2.8-4.1 [facility] Comment on above: Order Comment: Testi ng performed at: [] [facility], [address] [place] [address], [address], , Retail Salesworker: Tres Cm, PhD Performed By: #### C 121, C301, C406, C4176, C116, C48, C8, C45, C400, C115 #### Refer to report for performing lab TSH ([facility])on 11-21-2022 TSH 1.800 uIU/mL Invalid Interpretation Code 0.450-4.50 0 [facility] Comment on above: Order Comment: Testi ng performed at: [] [facility], [address] [place] [address], [address], , Retail Salesworker: Tres Cm, PhD Performed By: #### C 121, C301, C406, C4176, C116, C48, C8, C45, C400, C115 #### Refer to report for performing lab Uric Acid ([facility])on 3 Urate [Mass/Vol] 3.6 mg/dL Low 3.8-8.4 [facility] Comment on above: Order Comment: Testi ng performed at: [] [facility], [address] [place] [address], [address], , Retail Salesworker: Tres Cm, PhD Result Comment: Ther apeutic target for gout patients: <6.0 Performed By: #### C 121, C301, C406, C4176, C116, C48, C8, C45, C400, C115 #### Refer to report for performing lab Urinalysis and Microscopic w / Rfx to Cx ([facility])on 11-21-2022 Bacteria None seen Invalid Interpretation Code None seen/Few [facility] Comment on above: Order Comment: Testi ng performed at: [] [facility], [address] [place] [address], [address], , Retail Salesworker: Tres Cm, PhD Performed By: #### C 121, C301, C406, C4176, C116, C48, C8, C45, C400, C115 #### Refer to report for performing lab Casts None seen Invalid Interpretation Code None seen [facility] Comment on above: Order Comment: Testi ng performed at: [] [facility], [address] [place] [address], [address], , Retail Salesworker: Tres Cm, PhD Performed By: #### C 121, C301, C406, C4176, C116, C48, C8, C45, C400, C115 #### Refer to report for performing lab Epithelial cells LM Ql (Urine sed) None seen Invalid Interpretation Code 0 - 10 [facility] Comment on above: Order Comment: Testi ng performed at: [] [facility], [address] [place] [address], [address], , Retail Salesworker: Tres Cm, PhD Performed By: #### C 121, C301, C406, C4176, C116, C48, C8, C45, C400, C115 #### Refer to report for performing lab Mucus Threads Present Invalid Interpretation Code Not Estab. [facility] Comment on above: Order Comment: Testi ng performed at: [] [facility], [address] [place] [address], [address], , Retail Salesworker: Tres Cm, PhD Performed By: #### C 121, C301, C406, C4176, C116, C48, C8, C45, C400, C115 #### Refer to report for performing lab RBC None seen Invalid Interpretation Code 0 - 2 [facility] Comment on above: Order Comment: Testi ng performed at: [] [facility], [address] [place], [address], , Retail Salesworker: Tres Cm, PhD Performed By: #### C 121, C301, C406, C4176, C116, C48, C8, C45, C400, C115 #### Refer to report for performing lab WBC None seen Invalid Interpretation Code 0 - 5 [facility] Comment on above: Order Comment: Testi ng performed at: [] [facility], [address] [place] [address], [phone], , Retail Salesworker: Tres Cm, PhD Performed By: #### C 121, C301, C406, C4176, C116, C48, C8, C45, C400, C115 #### Refer to report for performing lab Appearance (U) Clear Invalid Interpretation Code Clear [facility] Comment on above: Order Comment: Testi ng performed at: [] [facility], [address] [place] [address], [phone], , Retail Salesworker: Tres Cm, PhD Performed By: #### C 121, C301, C406, C4176, C116, C48, C8, C45, C400, C115 #### Refer to report for performing lab Bilirubin Ql (U) Negative Invalid Interpretation Code Negative [facility] Comment on above: Order Comment: Testi ng performed at: [] [facility], [address] [place] [address], [phone], , Retail Salesworker: Tres Cm, PhD Performed By: #### C 121, C301, C406, C4176, C116, C48, C8, C45, C400, C115 #### Refer to report for performing lab Color (U) Yellow Invalid Interpretation Code Yellow [facility] Comment on above: Order Comment: Testi ng performed at: [] [address], [address], , Retail Salesworker: Tres Cm, PhD Performed By: #### C 121, C301, C406, C4176, C116, C48, C8, C45, C400, C115 #### Refer to report for performing lab Glucose Ql (U) 2+ Abnormal Negative [facility] Comment on above: Order Comment: Testi ng performed at: [] [facility], [address] [place] [address], [phone], , Retail Salesworker: Tres Cm, PhD Performed By: #### C 121, C301, C406, C4176, C116, C48, C8, C45, C400, C115 #### Refer to report for performing lab Ketones Ql (U) Negative Invalid Interpretation Code Negative [facility] Comment on above: Order Comment: Testi ng performed at: [] [facility], [address] [place] [address], [phone], , Retail Salesworker: Tres Cm, PhD Performed By: #### C 121, C301, C406, C4176, C116, C48, C8, C45, C400, C115 #### Refer to report for performing lab Microscopic Examination See below: Invalid Interpretation Code [facility] Comment on above: Order Comment: Testi ng performed at: [] [facility], [address] [place] [address], [address], , Retail Salesworker: Tres Cm, PhD Result Comment: Micr oscopic was indicated and was performed. Performed By: #### C 121, C301, C406, C4176, C116, C48, C8, C45, C400, C115 #### Refer to report for performing lab Nitrite, Urine Negative Invalid Interpretation Code Negative [facility] Comment on above: Order Comment: Testi ng performed at: [] [facility], [address] [place] [address], [address], , Retail Salesworker: Tres Cm, PhD Performed By: #### C 121, C301, C406, C4176, C116, C48, C8, C45, C400, C115 #### Refer to report for performing lab Occult Blood Negative Invalid Interpretation Code Negative [facility] Comment on above: Order Comment: Testi ng performed at: [] [facility], [address] [place] [address], [address], , Retail Salesworker: Tres Cm, PhD Performed By: #### C 121, C301, C406, C4176, C116, C48, C8, C45, C400, C115 #### Refer to report for performing lab pH (U) 6.5 [pH] Invalid Interpretation Code 5.0-7.5 [facility] Comment on above: Order Comment: Testi ng performed at: [] [facility], [address] [place] [address], [phone], , Retail Salesworker: Tres Cm, PhD Performed By: #### C 121, C301, C406, C4176, C116, C48, C8, C45, C400, C115 #### Refer to report for performing lab Protein Ql (U) Negative Invalid Interpretation Code Negative/T race [facility] Comment on above: Order Comment: Testi ng performed at: [] [facility], [address] [place] [address], [address], , Retail Salesworker: Tres Cm, PhD Performed By: #### C 121, C301, C406, C4176, C116, C48, C8, C45, C400, C115 #### Refer to report for performing lab Specific gravity (U) [Rel density] 1.024 Invalid Interpretation Code 1.005-1.03 0 [facility] Comment on above: Order Comment: Testi ng performed at: [] [facility], [address] [place], [address], , Retail Salesworker: Tres Cm, PhD Performed By: #### C 121, C301, C406, C4176, C116, C48, C8, C45, C400, C115 #### Refer to report for performing lab Urobilinogen,Semi-Qn 1.0 mg/dL Invalid Interpretation Code 0.2-1.0 [facility] Comment on above: Order Comment: Testi ng performed at: [] [facility], [address] [place] [address], [address], , Retail Salesworker: Tres Cm, PhD Performed By: #### C 121, C301, C406, C4176, C116, C48, C8, C45, C400, C115 #### Refer to report for performing lab WBC Esterase Negative Invalid Interpretation Code Negative [facility] Comment on above: Order Comment: Testi ng performed at: [] [facility], [address] [place] [address], [address], , Retail Salesworker: Tres Cm, PhD Performed By: #### C 121, C301, C406, C4176, C116, C48, C8, C45, C400, C115 #### Refer to report for performing lab Urine, Random, Albumin/Crea (COPC)on 11-21-2022 Alb/Creat Ratio 8 mg/g creat Invalid Interpretation Code 0-29 [facility] Comment on above: Order Comment: Testi ng performed at: [] [facility], [address] [place] [address], [address], , Retail Salesworker: Tres Cm, PhD Result Comment: Norm al: 0 - 29 Moderately increased: 30 - 300 Severely increased: >300 Performed By: #### C 121, C301, C406, C4176, C116, C48, C8, C45, C400, C115 #### Refer to report for performing lab Albumin, Urine 8.1 ug/mL Invalid Interpretation Code Not Estab. [facility] Comment on above: Order Comment: Testi ng performed at: [] [facility], [address] [place] [address], [address], , Retail Salesworker: Tres Cm, PhD Performed By: #### C 121, C301, C406, C4176, C116, C48, C8, C45, C400, C115 #### Refer to report for performing lab Creatinine, Urine 102.1 mg/dL Invalid Interpretation Code Not Estab. [facility] Comment on above: Order Comment: Testi ng performed at: [] [facility], [address] [place] [address], [place], [address], , Retail Salesworker: Tres Cm, PhD Performed By: #### C 121, C301, C406, C4176, C116, C48, C8, C45, C400, C115 #### Refer to report for performing lab Urinalysis and Microscopic w / Rfx to Cx ([facility])on 11-20-2022 Microscopic Examination Comment Normal [facility] Comment on above: Order Comment: Testi ng performed at: [] [facility], [address] [place] [address], [address], , Retail Salesworker: Tres Cm, PhD Result Comment: Micr oscopic follows if indicated. Performed By: #### C 121, C301, C406, C4176, C116, C48, C8, C45, C400, C115 #### Refer to report for performing lab Urinalysis Reflex Comment Normal [facility] Comment on above: Order Comment: Testi ng performed at: [] [facility], [address] [place] [address], [phone], , Retail Salesworker: Tres Cm, PhD Result Comment: This specimen [...] Transcribed Date: 11/17/2022 08:37 Normal [facility] XR Abdomen Single viewon No radiographic evidence for renal stone. -------- FINAL REPORT -------- Dictated By: Mars Ortega Dictated Date: 11/17/2022 08:37 Assigned Physician: Mars Ortega Reviewed and Electronically Signed By: Mars Ortega Signed Date: 11/17/2022 08:39 Workstation ID: [id number] Transcribed By: Self Edit Transcribed Date: 11/17/2022 08:37 APSXCRIBE EXAMINATION TYPE: XR ABDOMEN 1 VIEW DATE [...] By: Self Edit Transcribed Date: 11/17/2022 08:37 [employer] Radiology Study observation (narrative) [employer] XR Abdomen Single viewOrdere d By: Mars Ortega on 11-17-2022 [employer] Work Phone: EGCristóbal 10-27-2022 Esophagogastroduodenosc opy [facility] Patient Name: Leon Rider Procedure Date: [...] The patient tolerated the procedure well. Findings: Reno-colored mucosa was present. Biopsied during prior EGD. [...] was normal. Procedure Code(s): --- Professional --- 71165, Esophagogastroduodenosc opy, flexible, transoral; with band ligation of esophageal/gastric varices Diagnosis Code(s): --- Professional --- K22.8, Other specified diseases of esophagus I85.00, Esophageal varices without bleeding K76.6, Portal hypertension K31.89, Other diseases of stomach and duodenum K31.819, Angiodysplasia of stomach and duodenum without bleeding CPT copyright 2020 [employer]. All rights reserved. The codes documented in this report are preliminary and upon financial project manager review may be revised to meet current compliance requirements. DO SUSANA Martinez DO 10/27/2022 5:51:19 PM This report has been signed electronically. Number of Addenda: 0 Estimated Blood Loss: Estimated blood loss was minimal. Total Procedure Duration Time 0 hours 9 minutes [address] [place] [id number] IMPRESSION: - Reno-colored mucosa suspicious for Osborn's esophagus. - Grade [...] (more content not included)... Normal [facility] EGD Anesthesia - [facility]; JUDIT Matamoros NDOSCOPYon 10-27-2022 - Reno-colored muc saúl suspicious for Osborn's esophagus. - Grade II [...] previously scheduled. - Discharge patient to home. [facility] GI Patient Name: Leon Rider Procedure Date: 10/27/2022 [...] The patient tolerated the procedure well. Findings: Reno-colored mucosa was present. Biopsied during prior EGD. [...] was normal. Procedure Code(s): --- Professional --- 47590, Esophagogastroduodenosc opy, flexible, transoral; with band ligation of esophageal/gastric varices Diagnosis Code(s): --- Professional --- K22.8, Other specified diseases of esophagus I85.00, Esophageal varices without bleeding K76.6, Portal hypertension K31.89, Other diseases of stomach and duodenum K31.819, Angiodysplasia of stomach and duodenum without bleeding CPT copyright 2020 [employer]. All rights reserved. The codes documented in this report are preliminary and upon financial project manager review may be revised to meet cur (more content not included)... [facility] Susana Leblanc DO - 10/27/2022 [facility] Patient Name: Leon Rider Procedure Date: [...] The patient tolerated the procedure well. Findings: Reno-colored mucosa was present. Biopsied during prior EGD. [...] was normal. Procedure Code(s): --- Professional --- 32087, Esophagogastroduodenosc opy, flexible, transoral; with band ligation of esophageal/gastric varices Diagnosis Code(s): --- Professional --- K22.8, Other specified diseases of esophagus I85.00, Esophageal varices without bleeding K76.6, Portal hypertension K31.89, Other diseases of stomach and duodenum K31.819, Angiodysplasia of stomach and duodenum without bleeding CPT copyright 2020 [employer]. All rights reserved. The codes documented in this report are preliminary and upon financial project manager review may be revised to meet current compliance requirements. DO SUSANA Martinez DO 10/27/2022 5:51:19 PM This report has been signed electronically. Number of Addenda: 0 Estimated Blood Loss: Estimated blood loss was minimal. Total Procedure Duration Time 0 hours 9 minutes [address] [place] [id number] IMPRESSION: - Reno-colored mucosa suspicious for Osborn's esophagus. - Grade [...] Continue present medicati (more content not included)... [facility] Study observation (narrative) [employer] Glucose Auto test strip (Bld ) [Mass/Vol]on 10-27-2022 Glucose [Mass/Vol] 102 mg/dL High 70-99 [facility] Comment on above: Performed By: #### 2 340-8 #### [facility] [address] [place] [address] Glucose [Mass/Vol] 102 mg/dL High 70 - 99 mg/dL [employer] Interpretation and review of laboratory results Abnormal [facility] US ABDOMEN LIMITEDon US ABDOMEN LIMITED EXAMINATION TYPE: US ABDOMEN [...] Date: 09/02/2022 08:[address] [facility] US Abdomen Limitedon 1. Cirrhotic hepatic morphology. 2. No appreciable [...] By: Self Edit Transcribed Date: 09/02/2022 08:06 [employer] EXAMINATION TYPE: US ABDOMEN LIMITED DATE OF [...] 5 mm. No right-sided hydronephrosis is demonstrated. POWERSCRIBE Sin Maya MD - 09/02/2022 EXAMINATION TYPE: [...] By: Self Edit Transcribed Date: 09/02/2022 08:06 [facility] Radiology Study observation (narrative) [facility] US Abdomen LimitedOrdered By : Sin Maya on 09-02-2022 [employer] Work Phone: ECG 12 leadon 04-14-2022 P Wave Harrington 69 degrees [facility] P-R Interval 164 ms [facility] Pathologist interpretation (Bld) [Interp] Sinus tachycardia Nonspecific T wave abnormality Abnormal ECG Confirmed by Susana Valdes MD ([id number]), manager editorial Donavon Simmons ([id number]) on 04/14/2022 7:53:39 AM [facility] Q-T Interval 374 ms [facility] QRS Duration 82 ms [facility] QTc 484 ms [facility] R Harrington 20 degrees [facility] Troponin T.cardiac [Mass/Vol] 35 ug/L degrees [facility] - Coagulationon 0 04-14-2022 ACT Coag (Bld) 101 s BPM [facility] Transthoracic echocardiogram (TTE) complete with PRN contrast, bubble, strain, and 3D order panelOrdered By: Jonas Baker on 04-14-2022 Ao VTI 32.6 cm [employer] Work Phone: Aortic Valve Cusp Separation mMode 1.7 cm [employer] Work Phone: Ascending Aorta 3.7 cm [employer] Work Phone: AV Mean Gradient 7 mmHg [employer] Work Phone: AV Peak Gradient 14 mmHg [employer] Work Phone: AV Peak Berhane 1.9 m/s [employer] [facility] Work Phone: AV Velocity Ratio 0.84 [employer] Work Phone: Body surface area Derived from formula 2.89 m2 [facility] Work Phone: E Wave Deceleration Time 132 ms 119 - 242 ms [facility] Work Phone: E/E' Ratio Averaged 11 Tayla ty [facility] Work Phone: E/E' Ratio Lateral 10 [facility] Work Phone: E/E' Ratio Septal 12 [employer] Work Phone: Ejection Fraction (A2C) 54 % T [facility] [employer] Work Phone: Ejection Fraction (A4C) 66 % T [facility] Work Phone: Ejection Fraction (BP) 57 % Tr [facility] Work Phone: Est. RA Pressure 3 mmHg [facility] Work Phone: FS 43 % [facility] Work Phone: Interpretation and review of laboratory results Abnormal [facility] Work Phone: IVSD 1.0 cm 0.6 - 1.0 cm [facility] Work Phone: LA Area Sys (A2C) 17 cm2 [facility] Work Phone: LA Area Sys (A4C) 27 cm2 [facility] Work Phone: LA Volume (BP) 56 mL [facility] Work Phone: LA Volume Index (BP) 21 mL/m2 [facility] Work Phone: Left Atrium Major Harrington 7.4 cm Tr [facility] Work Phone: Left Atrium Minor Harrington 6.6 cm Tr [facility] Work Phone: LV Diastolic Volume (BP) 167 mL Abnormal 62 - 150 mL [facility] Work Phone: LV Diastolic Volume Index (BP) 61 mL/m2 [employer] Work Phone: LV EDV (A2C) 171 mL [facility] Work Phone: LV EDV (A4C) 160 mL [employer] Work Phone: LV EDV Index (A2C) 63 mL/m2 [facility] Work Phone: LV EDV Index (A4C) 59 mL/m2 [facility] Work Phone: LV ESV (A2C) 79 mL [employer] Work Phone: LV ESV (A4C) 55 mL [employer] Work Phone: LV ESV Index (A2C) 29 mL/m2 [facility] Work Phone: LV ESV Index (A4C) 20 mL/m2 [employer] [facility] Work Phone: LV Mass 2D 218 g [employer] Work Phone: LV Mass Index 2D 80 g/m2 [employer] Work Phone: LV Systolic Volume (BP) 72 mL Abnormal 21 - 61 mL T [facility] [employer] Work Phone: LV Systolic Volume Index (BP) 26 mL/m2 [employer] Work Phone: LVIDD 5.8 cm 4.2 - 5.8 cm [employer] Work Phone: LVIDD Index 2.12 cm/m2 [employer] Work Phone: LVIDS 3.3 cm 2.5 - 4.0 cm [employer] Work Phone: LVIDS Index 1.21 cm/m2 [employer] [facility] Work Phone: LVOT Mean Grad 6 mmHg [employer] [facility] Work Phone: LVOT Mean Berhane 1.2 m/s [facility] Work Phone: LVOT Peak Gradient 10 mmHg [facility] Work Phone: LVOT Peak Berhane 1.6 m/s [facility] Work Phone: LVOT Peak VTI 33.2 cm [employer] Work Phone: LVOT:AV VTI Index 1.02 [employer] Phone: LVPWD 0.9 cm 0.6 - 1.0 cm [employer] Phone: Microscopic observation Hans (Ear) [Interp] 1.0 [employer] [facility] h Work Phone: MV E' Tissue Velocity Lateral 14 cm/s [employer] Phone: MV E' Tissue Velocity Septal 11 cm/s [employer] Phone: MV Peak A Berhane 1.31 m/s [employer] Work Phone: MV Peak E Berhane 1.33 m/s [employer] Work Phone: Relative Wall Thickness ratio 0.31 [employer] Phone: RV Diastolic Basal Dimension 3.4 cm 2.5 - 4.1 cm [employer] Phone: RV Diastolic Length 8.9 cm Abnormal 5.9 - 8. 3 cm [employer] Phone: RV Diastolic Mid Dimension 3.0 cm 1.9 - 3.5 cm [employer] Phone: [employer] Phone: Transthoracic echocardiogram (TTE) complete with PRN contrast, bubble, strain, and 3D order panelon 04-14-2022 Right ventricle cavi ty is normal. Right ventricular systolic function is [...] poor endocardial visualization. CV PACS Basic metabolic 2000 panelon 04-13-2022 Anion gap [Moles/Vol] 11 mmol/L [facility] [employer] Calcium [Mass/Vol] 9.1 mg/dL 8.9 - 10. 3 mg/dL [employer] Chloride [Moles/Vol] 99 mmol/L 98 - 10 7 mmol/L [employer] CO2 [Moles/Vol] 23 mmol/L 22 - 32 mmol/L [employer] Creatinine [Mass/Vol] 0.68 mg/dL 0.60 - 1.30 mg/dL [employer] GFR/1.73 sq M.predicted MDRD (S/P/Bld) [Vol rate/Area] 117 mL/min/{1.73_m2} mL/min/1.7 3m2 [employer] Glucose [Mass/Vol] 94 mg/dL 70 - 99 mg/dL [employer] Interpretation and review of laboratory results Abnormal [employer] Potassium [Moles/Vol] 4.1 mmol/L 3.6 - 5.1 mmol/L [employer] Sodium [Moles/Vol] 133 mmol/L Low 136 - 145 mmol/L [employer] Urea nitrogen [Mass/Vol] 9 mg/dL 8 - 20 mg/dL [employer] Urea nitrogen/Creatinine [Mass ratio] 13.2 mg/mg [employer] CT Angio Chest wo and/or w C [facility] 04-13-2022 Initial injection wa s suboptimal and nondiagnostic. 2nd injection was somewhat [...] By: Self Edit Transcribed Date: 04/13/2022 17:31 APSXCRIBBellaDati EXAMINATION TYPE: CT ANGIO CHEST WO AND/OR [...] dissection. Motion artifact at the aortic root. APSXCRIBE Tanmay Vicente MD - 04/13/2022 EXAMINATION TYPE: [...] By: Self Edit Transcribed Date: 04/13/2022 17:31 [employer] Fibrin D-dimer DDU (PPP) [Ma ss/Vol]on 04-13-2022 Fibrin D-dimer FEU (PPP) [Mass/Vol] 0.51 High <0.50 mcg/mL FEU [employer] Comment on above: Cutoff 0.49 mcg/ml F EU At this cutoff level, the negative predictive value for this test is 100% for deep vein thrombosis (DVT) in patients with a low or moderate pre-test probability and 99.7% for pulmonary embolism (PE) in patients with a low or moderate pre-test probability. Clinical correlation is essential. Interpretation and review of laboratory results Abnormal GI Track Hemogram and platelets WO di fferential panel (Bld)Ordered By: Silke Cronin on 04-13-2022 Basophils (Bld) [#/Vol] 0.00 10*3/uL [employer] Basophils/100 WBC (Bld) 0.8 % 0.0 - 2.0 % [employer] Eosinophils (Bld) [#/Vol] 0.20 10*3/uL [employer] Eosinophils/100 WBC (Bld) 4.1 % 0.0 - 7.0 % [employer] Erythrocyte distribution width (RBC) [Ratio] 16.6 % High 11.0 - 14.8 % [employer] Hematocrit (Bld) [Volume fraction] 40.8 % 39.0 - 49.0 % [employer] Hemoglobin (Bld) [Mass/Vol] 13.6 g/dL 13.5 - 17.5 g/dL [employer] Interpretation and review of laboratory results Abnormal [employer] Lymphocytes (Bld) [#/Vol] 0.80 10*3/uL Low [facility] Lymphocytes/100 WBC (Bld) 17.5 % Low 22.0 - 44.0 % [facility] MCH (RBC) [Entitic mass] 30.1 pg [facility] MCHC (RBC) [Mass/Vol] 33.3 g/dL 32.0 - 36.0 g/dL [facility] MCV (RBC) [Entitic vol] 90.4 fL T [facility] Monocytes (Bld) [#/Vol] 0.50 10*3/uL [facility] Monocytes/100 WBC (Bld) 12.3 % 4.0 - 23.0 % [facility] Neutrophils (Bld) [#/Vol] 2.90 10*3/uL [facility] Neutrophils/100 WBC (Bld) 65.3 % 40.0 - 70.0 % [facility] Platelet mean volume (Bld) [Entitic vol] 8.6 fL [facility] th Platelets (Bld) [#/Vol] 71 10*3/uL Low T [facility] Comment on above: Results confirmed by slide review. RBC (Bld) [#/Vol] 4.51 10*6/uL [facility] WBC (Bld) [#/Vol] 4.5 10*3/uL Low [facility] Magnesiumon 04-13-2022 Magnesium [Mass/Vol] 1.8 mg/dL 1.8 - 2 .5 mg/dL [facility] Magnesium [Mass/Vol]on 04-13 Interpretation and review of laboratory results Normal [facility] No Panel Informationon 04-13 [facility] SARS-CoV-2 (COVID-19) RNA NA A+probe Ql (Resp)on 04-13-2022 Interpretation and review of laboratory results Normal [facility] SARS-CoV-2 (COVID-19) RdRp gene CHARLIE+probe Ql (Resp) Not detected Not Detected [facility] Tropinin I.cardiac panel Hig h sensitivity methodon 04-13-2022 Interpretation and review of laboratory results Abnormal [facility] Troponin I.cardiac High sensitivity method [Mass/Vol] 22 ng/L High <20 [facility] Interpretation and review of laboratory results Abnormal [facility] Troponin I.cardiac High sensitivity method [Mass/Vol] 21 ng/L High <20 [facility] Interpretation and review of laboratory results Normal [facility] Troponin I.cardiac High sensitivity method [Mass/Vol] 16 ng/L <20 [facility] XR Chest 2 Viewson Nonacute study. [...] By: Self Edit Transcribed Date: 04/13/2022 15:12 [facility] Radiology Study observation (narrative) [facility] XR Chest 2 ViewsOrdered By: Tanmay Vicente on 04-13-2022 [employer] Work Phone: XR Abdomen Single viewon No [...] phleboliths are noted. POWERSCRIBE Jean Carlos Monroy M D - 03/25/2022 EXAMINATION TYPE: XR ABDOMEN 1 [...] By: Self Edit Transcribed Date: 03/25/2022 12:41 [employer] Radiology Study observation (narrative) [employer] XR Abdomen Single viewOrdere d By: Jean Carlos Monroy on 03-25-2022 [employer] Work Phone: XR ABDOMEN /KUB/FLAT PLATE/1 VIEWon [...] Sat Mar 13, 2022 7:24:20 PM EDT [facility] Comment on above: Order Comment: Injur y/Trauma [...] Nom (Bld) Blood group B Rh(D) positive [facility] ABO and Rh group Nom (Bld) ABO/Rh Verification [facility] Comment on above: Patient's ABO/Rh is verified. [facility] APTTOrdered By: Sukhwinder Villalobos on 04-22-2021 aPTT Coag (Bld) [Time] 33 s [facility] Basic metabolic 2000 panelOr dered By: Sukhwinder Villalobos on 04-22-2021 Anion gap [Moles/Vol] 16 mmol/L 10 - 2 0 mmol/L [facility] Calcium [Mass/Vol] 8.9 mg/dL 8.4 - 10. 2 mg/dL [facility] Chloride [Moles/Vol] 102 mmol/L 98 - 10 8 mmol/L [facility] Creatinine [Mass/Vol] 0.52 mg/dL 0.50 - 1.30 [facility] GFR/1.73 sq M.predicted CKD-EPI (S/P/Bld) [Vol rate/Area] 132 >=60 mL/min/1.7 3 m2 [facility] Glucose [Mass/Vol] 106 mg/dL High 65 - 99 mg/dL [facility] HCO3 [Moles/Vol] 24 mmol/L 21 - 32 mmol/L [facility] Interpretation and review of laboratory results Abnormal [facility] Potassium [Moles/Vol] 4.2 mmol/L 3.5 - 5.1 mmol/L [facility] Sodium [Moles/Vol] 138 mmol/L 135 - 145 mmol/L [facility] Urea nitrogen [Mass/Vol] 8 mg/dL 8 - 25 mg/dL [facility] Urea nitrogen/Creatinine [Mass ratio] 15.4 mg/mg [facility] The eGFR should be u sed for monitoring renal function only and not for medication dosing. [facility] Blood type and Indirect anti body screen panel (Bld)Ordered By: Sukhwinder Villalobos on 04-22-2021 ABO and Rh group Nom (Bld) Blood group B Rh(D) positive [facility] Blood group antibody screen Ql Negative [facility] Specimen Expires 04/25/2021 23:59 EST [facility] CBC WITH AUTO DIFFERENTIALOr dered By: Sukhwinder Villalobos on 04-22-2021 Basophils (Bld) [#/Vol] 0.08 10*3/uL [facility] Basophils/100 WBC (Bld) 1.8 % [facility] Eosinophils (Bld) [#/Vol] 0.29 10*3/uL [facility] Eosinophils/100 WBC (Bld) 6.4 % [facility] Erythrocyte distribution width (RBC) [Entitic vol] 15.5 % High 11.6 - 14.8 % [facility] Hematocrit (Bld) [Volume fraction] 43.8 % 41.0 - 53.0 % [facility] Hemoglobin (Bld) [Mass/Vol] 14.2 g/dL 13.5 - 17.5 g/dL [facility] Immature granulocytes (Bld) [#/Vol] 0.02 10*3/uL [facility] Immature granulocytes/100 WBC (Bld) 0.40 % [facility] Comment on above: The IG parameter is the percentage of metamyelocytes, myelocytes and promyelocytes. An immature granulocyte count (IG) of 1% or more suggests the possibility of infection, an IG count of 3% is very likely related to an infection. Interpretation and review of laboratory results Abnormal [facility] Lymphocytes (Bld) [#/Vol] 1.19 10*3/uL [facility] Lymphocytes/100 WBC (Bld) 26.2 % [facility] MCH (RBC) [Entitic mass] 30.1 pg 26.0 - 34.0 pg [facility] MCHC (RBC) [Mass/Vol] 32.4 g/dL 31.0 - 37.0 g/dL [facility] MCV (RBC) [Entitic vol] 93.0 fL 80.0 - 100.0 fL [facility] Monocytes (Bld) [#/Vol] 0.76 10*3/uL [facility] Monocytes/100 WBC (Bld) 16.7 % [facility] Neutrophils (Bld) [#/Vol] 2.20 10*3/uL [facility] Neutrophils/100 WBC (Bld) 48.5 % [facility] Nucleated RBC (Bld) [#/Vol] 0.00 10*3/uL [facility] Nucleated RBC/100 WBC (Bld) [Ratio] 0.0 % [facility] Platelet mean volume (Bld) [Entitic vol] 10.6 fL 9.4 - 12.4 fL [facility] Platelets (Bld) [#/Vol] 78 10*3/uL Low [facility] Comment on above: Results checked RBC (Bld) [#/Vol] 4.71 10*6/uL [facility] WBC (Bld) [#/Vol] 4.54 10*3/uL [facility] Glucose (Bld) [Mass/Vol]Orde red By: Sukhwinder Villalobos on 04-22-2021 Glucose [Mass/Vol] 102 mg/dL High 65 - 99 mg/dL [facility] Interpretation and review of laboratory results Abnormal [facility] Glucose [Mass/Vol] 100 mg/dL High 65 - 99 mg/dL [facility] Interpretation and review of laboratory results Abnormal [facility] INR Coag (PPP) [Relative abdulkadir e]Ordered By: Sukhwinder Villalobos on 04-22-2021 Interpretation and review of laboratory results Abnormal [facility] PT Coag (PPP) [Time] 15.2 s High [facility] During the induction phase of oral anticoagulation, the INR may not reflect the anticoagulation status of the patient. Therapeutic ranges for INR's are: Most clinical situations: INR 2.0-3.0 Mechanical Prosthetic Valve: INR 2.5-3.5 Critical: INR >5.0 [facility] No Panel InformationOrdered By: Sukhwinder Villalobos on 04-22-2021 [facility] PT/INROrdered By: Sukhwinder berg on 04-22-2021 INR Coag (PPP) [Relative time] 1.2 {INR} High [facility] SCAN OTHER ORDERSOrdered By: Provider System on 04-22-2021 Ordered by an unspecified provider. [facility] aPTT Coag (Bld) [Time]Ordere d By: Sukhwinder Villalobos on 04-22-2021 Interpretation and review of laboratory results Normal [facility] Therapeutic range fo r APTT's is 68 - 104 seconds [facility] US ABDOMEN LIMITED STUDYon 0 03-20-2021 [...] contour. Findings raise suspicion for possible cirrhosis. [facility] Workstation ID: [id number] Dictated by: MAURO ZEE on TueMarch 20, 2021 8:18:33 AM EDT Transcribed by: ROMY MOE on TueMarch 20, 2021 8:19:53 AM EDT Finalized by: MAURO ZEE on Sun March 22, 2021 10:22:08 PM EDT Normal [facility] Comment on above: Order Comment: Injur y/Trauma or Illness?:Illness/Other How long have you had these symptoms (acute/chronic)?:Chronic Reason for exam?:Abdominal bloating History of cancer?: Surgeries, chemotherapy, or radiation?: Type of Exam?:Initial Additional signs and symptoms?:History of fatty liver disease with possible cirrhosis per patient Alpha Fetoprotein Tumor Elieser rian 12-24-2020 AFP.tumor marker [Mass/Vol] 2.4 ng/mL Normal 0.0-9.0 [facility] Comment on above: Result Comment: REFE [...] not interchangeable. Patient results should not be "trended" using values obtained with a different immunoassay method. Performed By: #### 5 3962-7 #### [facility] [address] [place] [address] US Abdomen Ltdon 10-14-2020 US Abdomen limited [...] hepatic morphology. 2. Nonvisualization of the pancreas. [facility] thanks you for the opportunity to care for your patient. Workstation ID: [id number] - [id number] FINAL REPORT Dictated By: Rudi Joshi MD 10/14/2020 11:22 Assigned Physician: Rudi Joshi MD Reviewed and Electronically Signed By: Rudi Joshi MD 10/14/2020 11:24 Transcribed by: NIMO 10/14/2020 11:22 Normal [facility] Glucose POCT (Uploaded)on Glucose [Mass/Vol] 87 mg/dL Normal 70-99 [facility] Comment on above: Result Comment: Samantha tment ranges and critical values established by Patient Care Services. All follow-up actions were taken by Patient Care Services. Performed By: #### 2 430-8 #### [facility] OR Nursingon 06-26-2020 OR Nursing [facility] OR Nursi ng Record Summary Primary Physician: Dandy Healy MD Finalized Date/Time: 06/26/20 14:21:15 Pt. Name: ADRYLEON/Sex: 1980 Male Med Rec #: [id number] Physician: Financial #: [id number] Pt. 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 Senior Software Development Manager Time In 06/26/20 13:58:00 Time Out 06/26/20 14:13:00 Procedure Egd with Biopsy_(N/A) Attendee Comment Relief Reason Last Modified By: Lani Villareal RN 06/26/20 14:20:23 [facility] General Case Log Chipper 1 OR CO E EN 04 ASA Class 3 Case Wound Class None Specialty Endoscopy Service Case Level N/A Diagnosis Preop Diagnosis ESOPHAGEAL VARICES Postop Same As Preop No I85.00 CIRRHOSIS K74.60 Postop Diagnosis erosive esophagitis/ small hiatal hernia/ PHG/ DUODENAL ULCERS/ This is a down time No record. Last Modified By: Lani Villareal RN 06/26/20 14:13:22 [facility] Surgical Procedures Entry 1 Procedure Egd with Biopsy_ Primary Procedure Yes Modifiers N/A Procedure Wound None Class Primary Surgeon Dandy Healy MD Surgical Service Endoscopy Service Anesthesia Type MAC Procedure Performed EGD Start 06/26/20 14:03:00 Stop 06/26/20 14:09:00 Last Modified By: Lani Villareal RN 06/26/20 14:21:10 [facility] Fire Risk Assessment Entry 1 Alcohol [...] 02 (less than 30% when able) [facility] Interventional Checklist Entry 1 TIme Out [...] By: Lani Villareal RN 06/26/20 14:21 Normal [facility] Patient Summaryon 06-26-2020 Patient Summary PATIENT DISCHARGE INSTRUCTIONS If you are having an emergency and are not able to reach your physician, CALL 911 or go to the nearest emergency room and take this document with you. [facility] 06/26/20 14:28 [address] [place]. [address] PATIENT INFORMATION Name: LEON RIDER Address: [address] [place] [address] [place] [address] Age: 40 Years Phone: [phone] : 1980 12:00 MRN: [id number] Sex: Male Race: White Ethnicity: Not Hispan/Lat Admitted From: Clinic or [facility] Medical Service: Gastroenterology Nurse Unit/Bed: (IN) [facility] N/A Admit Date: 06/26/2020 12:03 PCP: Zack Vigil MD PHYSICIANS INVOLVED WITH CARE -- Attending Physicians: Dandy Healy MD - Gastroenterology Admitting Physician: None found Primary Care Physician:Musa CARPIO , Zack Randolph,,,Internal Medicine - Consults: None found YOU WERE TREATED IN THE HOSPITAL FOR: Cirrhosis ALLERGIES: No Known Allergies MEASUREMENTS: Last Charted: Weight: 163.5 kg /360 lbs 10 oz ( 06/25/20 11:04:00 ) MEDICATIONS For: LEON RIDER This is your list of medication(s). Keep it with you at all times. Your doctor may have changed doses, add, held or stopped some of your medications. Please share this information with your family doctor. Carry this list of medications with you in case of an emergency. Update it when medications are stopped, doses are changed, or new medications (including dnbp-rni-suyobgp products) are added. Ask your doctor if [...] 06/25/2020. states he takes 5 mg,. Comment __ famotidine (famotidine 40 mg oral tablet) 1 Tab(s) By Mouth Every Bedtime for 90 Days. HOLD / DO NOT TAKE FOR 3 CONTINUOUS DAYS EVERY MONTH TO AVOID TACHYPHYLAXIS. Refills: 3. Comment __ MetFORMIN (metFORMIN 1000 mg oral tablet, extended release) 1 Tab(s) By Mouth Twice a day. Comment __ multivitamin 1 Tab(s) By Mouth once a day. Comment __ promethazine (promethazine 25 mg oral tablet) 1 Tab(s) By Mouth every 6 hours. as needed. Comment __ SitaGLIPtin (Januvia 100 mg oral tablet) 1 Tab(s) By Mouth once a day. Comment __ STOP TAKING THESE MEDICATIONS None DO NOT [...] suicide hotline, anytime day or night, at 3-709-801-EJDZ. Important information about accessing your health information through the [facility] patient portal If you initiated the self-registration process for [facility] during your stay, please check your personal email for an invitation to enroll in [facility] and complete the steps outlined in the email. If you would prefer to enroll while in the hospital, ask a member of your care team. We would be happy to assist you. If you have already enrolled in [facility], go to [email or web address] to login and access your health information. Thank you for choosing [facility]. PATIENT EDUCATION PATIENT DISCHARGE INSTRUCTION Signature Page for: LEON RIDER Date/Time: 06/26/2020 14:28:21 A Clinician has explained the information on my discharge instructions and has provided me with a copy. My questions have been answered to my satisfaction. Patient Signature Date/Time Responsible Party Date/Time Relationship to Patient ____ Clinician Signature Date/Time Normal [facility] Post PACU Nursingon 06-26-20 Post PACU Nursing [facility] PACU Nursing Record Summary Primary Physician: Dandy Healy MD Finalized Date/Time: 06/26/20 15:04:08 Pt. Name: ADRY LEON Jose June/Sex: 1980 Male Med Rec #: [id number] Physician: Financial #: [id number] Pt. Type: I Room/Bed: / Admit/Disch: 06/26/20 [...] 15:03 Lani Villareal RN 06/26/20 15:04 Normal [facility] PreOp Nursingon 06-26-2020 PreOp Nursing [facility] PreOp Nursing Record Summary Primary Physician: Dandy Healy MD Finalized Date/Time: 06/26/20 15:07:13 Pt. Name: LEON RIDER /Sex: 1980 Male Med Rec #: [id number] Physician: Financial #: [id number] Pt. Type: I Room/Bed: / Admit/Disch: 06/26/20 [...] By: Angelic Enrique RN 06/26/20 15:07 Normal [facility] Surgical Pathology Final Rep [facility] 06-26-2020 Pathology study LEON RIDER [id number] [id number] M [id number] RM/BD ORDERING PHYSICIAN: DANDY HEALY RESULT TRANSMITTED: 06/27/20 1523 S U R [...] cassette. (ES/1C/MS/RT-BAG) Gross examination was performed at [facility]. AJB:CHUCHO 06/26/20 By: GERRY REYNA M.D. AT [facility] (Electronic Signature) MICROSCOPIC: The technical component was performed at [facility], [address] [place] [address]. Microscopic examination was performed. Case resulted at [facility]. The immunohistochemical and/or in situ hybridization tests reported here have been developed and their performance characteristics determined by [facility] [address] [place] [address]. It has not been cleared or approved [...] - NO HELICOBACTER PYLORI (CONFIRMED BY IMMUNOSTAIN). MJ2:MJ2:MJ208/14/ END OF REPORT END OF REPORT Normal [facility] Coronavirus (COVID-19/SARS-C oV-2) [facility] 06-23-2020 SARS-CoV-2 NOTDET Normal NOTDET [facility] Comment on above: Result Comment: This test was performed via the Aptima SARS-CoV-2 Assay ([employer]) and has been authorized by the FDA under an Emergency Use Authorization (EUA). The assay is validated for nasopharyngeal (OPTICAL ELEMENT COATER), nasal, and oropharyngeal (OP) swab specimens. The observation assistant's stated Limit of Detection is 0.01 TCID50/mL [...] www.cdc.gov/coronavirus. Performed By: #### 9 4532-9x5 #### [facility] [address] [place], [place] [id number] Alpha Fetoprotein Tumor Elieser rian 06-18-2020 AFP.tumor marker [Mass/Vol] 3.2 ng/mL Normal 0.0-9.0 [facility] Comment on above: Result Comment: REFE [...] not interchangeable. Patient results should not be "trended" using values obtained with a different immunoassay method. Performed By: #### 5 3962-7 ####[facility] [address] [place] [address] CBC with Differentialon 08-0 5-2020 Basophils (Bld) [#/Vol] 0.00 thou/mcL Normal 0.00-0.20 [facility] Comment on above: Performed By: #### 5 7021-8 #### [facility] [address] [place] [address] Basophils/100 WBC (Bld) 0.5 % Normal 0.0-2.[address] [facility] Comment on above: Performed By: #### 5 7021-8 #### [facility] [address] [place] [address] Eosinophils (Bld) [#/Vol] 0.30 thou/mcL Normal 0.00-0.70 [facility] Comment on above: Performed By: #### 5 7021-8 #### [facility] [address] [place] [address] Eosinophils/100 WBC (Bld) 5.5 % Normal 0.0-7.0 [facility] Comment on above: Performed By: #### 5 7021-8 #### [facility] [address] [place] [address] Erythrocyte distribution width (RBC) [Entitic vol] 17.1 % High 11.0-14.8 [facility] Comment on above: Performed By: #### 5 7021-8 #### [facility] [address] [place] [address] Hematocrit (Bld) [Volume fraction] 42.0 % Normal 39.0-49.0 [facility] Comment on above: Performed By: #### 5 7021-8 #### [facility] [address] [place] [address] Hemoglobin (Bld) [Mass/Vol] 14.0 g/dL Normal 13.5-17.5 [facility] Comment on above: Performed By: #### 5 7021-8 #### [facility] [address] [place] [address] Lymphocytes (Bld) [#/Vol] 1.10 thou/mcL Normal 1.00-4.80 [facility] Comment on above: Performed By: #### 5 7021-8 #### [facility] [address] [place] [address] Lymphocytes/100 WBC (Bld) 24.2 % Normal 22.0-44.0 [facility] Comment on above: Performed By: #### 5 7021-8 #### [facility] [address] [place] [address] MCH (RBC) [Entitic mass] 29.7 Picograms Normal 27.0-34.0 [facility] Comment on above: Performed By: #### 5 7021-8 #### [facility] [address] [place] [address] MCHC (RBC) [Mass/Vol] 33.4 g/dL Normal 32.0-36.0 [facility] Comment on above: Performed By: #### 5 7021-8 #### [facility] [address] [place] [address]84 MCV (RBC) [Entitic vol] 88.8 fL Normal 80.0-97.[address] [facility] Comment on above: Performed By: #### 5 7021-8 #### [facility] [address] [place] [address] Monocytes (Bld) [#/Vol] 0.90 thou/mcL Normal 0.00-0.90 [facility] Comment on above: Performed By: #### 5 7021-8 #### [address] [address] Monocytes/100 WBC (Bld) 18.2 % High 0.0-12.0 M [facility] Comment on above: Performed By: #### 5 7021-8 #### [facility] [address] [place] [address] 11865 Neutrophils (Bld) [#/Vol] 2.40 thou/mcL Normal 1.80-7.70 [facility] Comment on above: Performed By: #### 5 7021-8 #### [address] [address] Neutrophils/100 WBC (Bld) 51.6 % Normal 40.0-70.0 [facility] Comment on above: Performed By: #### 5 7021-8 #### [address] [address] Platelet mean volume (Bld) [Entitic vol] 9.9 fL Normal 6.2-12.1 [facility] Comment on above: Performed By: #### 5 7021-8 #### [address] [address] Platelets (Bld) [#/Vol] 76 thou/mcL Low 142-424 [facility] Comment on above: Result Comment: Resu lt confirmed by slide review. Performed By: #### 5 7021-8 #### [address] [address] RBC (Bld) [#/Vol] 4.72 million/mcL Normal 4.30-5.[address] [facility] Comment on above: Performed By: #### 5 7021-8 #### [address] [address] WBC (Bld) [#/Vol] 4.7 thou/mcL Normal 4.6-10.2 [facility] Comment on above: Performed By: #### 5 7021-8 #### [facility] [address] [place] [address] Hepatic Function Panelon Albumin [Mass/Vol] 3.1 g/dL Low 3.5-4.8 [facility] Comment on above: Performed By: #### 2 5-3 #### [facility] [address] [place] [address] ALP [Catalytic activity/Vol] 104 Units/L High 32-91 [facility] Comment on above: Performed By: #### 2 5-3 #### [facility] [address] [place] [address] ALT [Catalytic activity/Vol] 35 Units/L Normal 14-63 [facility] Comment on above: Performed By: #### 2 4324-3 #### [facility] [address] [place] [address] AST [Catalytic activity/Vol] 42 Units/L High 15-41 [facility] Comment on above: Performed By: #### 2 5-3 #### [facility] [address] [place] [address] Bilirubin [Mass/Vol] 1.2 mg/dL Normal 0.3-1.2 [facility] Comment on above: Performed By: #### 2 4324-3 #### [facility] [address] [place] [address] Bilirubin.direct [Mass/Vol] 0.3 mg/dL Normal 0.1-0.5 [facility] Comment on above: Performed By: #### 2 5-3 #### [facility] [address] [place] [address] Bilirubin.indirect [Mass/Vol] 0.9 mg/dL Normal 0.0-1.0 [facility] Comment on above: Performed By: #### 2 5-3 #### [facility] [address] [place] [address] Protein [Mass/Vol] 7.0 g/dL Normal 6.1-7.9 [facility] Comment on above: Performed By: #### 2 4325-3 #### [facility] [address] [place] [address] Vital Signs Date Time Vital Sign Value Performing Clinician Facility 08-21-2025 20:46-0400 Body temperature 97.2 [degF] Alis Duran MD Work Phone: [phone] [place] [address] 08-21-2025 20:46-0400 Diastolic blood pressure 50 mm[Hg] Alis Duran MD Work Phone: [phone] [place] [address] 08-21-2025 20:46-0400 Heart rate 73 /min Alis Duran MD Work Phone: [phone])[phone] [place] [address] 08-21-2025 20:46-0400 Respiratory rate 18 /min Alis Duran MD Work Phone: [phone] [place] [address] 08-21-2025 20:46-0400 SaO2% (BldA) [Mass fraction] 98 % Alis Duran MD Work Phone: [phone] [place] [address] 08-21-2025 20:46-0400 Systolic blood pressure 109 mm[Hg] Alis Duran MD Work Phone: [phone] [place] [address] 08-21-2025 16:37-0400 Body mass index (BMI) [Ratio] 43.5 kg/m2 Alis Duran MD Work Phone: [phone])[phone] [place] [address] 08-21-2025 16:37-0400 Body weight 141.7 kg Alis Duran MD Work Phone: [phone] [place] [address] 08-21-2025 16:27-0400 Body height 180.34 cm Alis Duran MD Work Phone: [phone])[phone] [place] [address] 08-19-2025 14:48-0400 Body height 180.34 cm Alis Duran MD Work Phone: [phone] [place] [address] 08-19-2025 14:48-0400 Body mass index (BMI) [Ratio] 43.4 kg/m2 Alis Duran MD Work Phone: 3(630)[phone] [place] [address] 08-19-2025 14:48-0400 Body temperature 98.6 [degF] Alis Duran MD Work Phone: [facility] 08-19-2025 14:48-0400 Body weight 141.23 kg Alis Duran MD Work Phone: [facility] 08-19-2025 14:48-0400 Diastolic blood pressure 68 mm[Hg] Alis Duran MD Work Phone: [facility] 08-19-2025 14:48-0400 Heart rate 82 /min Alis Duran MD Work Phone: [facility] 08-19-2025 14:48-0400 Respiratory rate 18 /min Alis Duran MD Work Phone: [facility] 08-19-2025 14:48-0400 SaO2% (BldA) [Mass fraction] 95 % Alis Duran MD Work Phone: [facility] 08-19-2025 14:48-0400 Systolic blood pressure 116 mm[Hg] Alis Duran MD Work Phone: [facility] 08-12-2025 08:24-0400 Body height 180.34 cm Alis Duran MD Work Phone: [facility] 08-12-2025 08:24-0400 Body mass index (BMI) [Ratio] 44.9 kg/m2 Alis Duran MD Work Phone: [facility] 08-12-2025 08:24-0400 Body temperature 98.5 [degF] Alis Duran MD Work Phone: [facility] 08-12-2025 08:24-0400 Body weight 146.08 kg Alis Duran MD Work Phone: [facility] 08-12-2025 08:24-0400 Diastolic blood pressure 66 mm[Hg] Alis Duran MD Work Phone: [facility] 08-12-2025 08:24-0400 Heart rate 78 /min Alis Duran MD Work Phone: [facility] 08-12-2025 08:24-0400 Respiratory rate 18 /min Alis Duran MD Work Phone: [facility] 08-12-2025 08:24-0400 SaO2% (BldA) [Mass fraction] 96 % Alis Duran MD Work Phone: [facility] 08-12-2025 08:24-0400 Systolic blood pressure 108 mm[Hg] Alis Duran MD Work Phone: [facility] 07-26-2025 15:04-0400 Body temperature 98.3 [degF] Alis Duran MD Work Phone: [facility] 07-26-2025 15:04-0400 Diastolic blood pressure 54 mm[Hg] Alis Duran MD Work Phone: [facility] 07-26-2025 15:04-0400 Heart rate 82 /min Alis Duran MD Work Phone: [facility] 07-26-2025 15:04-0400 Inhaled oxygen flow rate 2 L/min Alis Duran MD Work Phone: [facility] 07-26-2025 15:04-0400 Respiratory rate 16 /min Alis Duran MD Work Phone: [facility] 07-26-2025 15:04-0400 SaO2% (BldA) [Mass fraction] 92 % Alis Duran MD Work Phone: [facility] 07-26-2025 15:04-0400 Systolic blood pressure 114 mm[Hg] Alis Duran MD Work Phone: [facility] 07-26-2025 10:23-0400 Body height 180.34 cm Alis Duran MD Work Phone: [facility] 07-26-2025 10:23-0400 Body weight 177 kg Alis Duran MD Work Phone: [facility] 07-26-2025 03:45-0400 Body temperature 98.4 [degF] Alis Duran MD Work Phone: [facility] 07-26-2025 03:45-0400 Diastolic blood pressure 60 mm[Hg] Alis Duran MD Work Phone: [facility] 07-26-2025 03:45-0400 Heart rate 70 /min Alis Duran MD Work Phone: [facility] 07-26-2025 03:45-0400 Respiratory rate 16 /min Alis Duran MD Work Phone: [facility] 07-26-2025 03:45-0400 SaO2% (BldA) [Mass fraction] 96 % Alis Duran MD Work Phone: [facility] 07-26-2025 03:45-0400 Systolic blood pressure 101 mm[Hg] Alis Duran MD Work Phone: 4(154)132-589917 [address] 07-26-2025 03:18-0400 Body mass index (BMI) [Ratio] 54.4 kg/m2 Alis Duran MD Work Phone: [facility] 07-26-2025 03:18-0400 Body weight 177 kg Alis Duran MD Work Phone: [facility] 07-22-2025 10:05-0400 Body height 180.34 cm Alis Duran MD Work Phone: 3(728)598-416077 [place] [address] 07-21-2025 12:11-0400 Body temperature 99.2 [degF] Alis Duran MD Work Phone: [facility] 07-21-2025 12:11-0400 Diastolic blood pressure 49 mm[Hg] Alis Duran MD Work Phone: [facility] 07-21-2025 12:11-0400 Heart rate 99 /min Alis Duran MD Work Phone: [facility] 07-21-2025 12:11-0400 Respiratory rate 15 /min Alis Duran MD Work Phone: 9(770)116-681877 [place] [address] 07-21-2025 12:11-0400 SaO2% (BldA) [Mass fraction] 99 % Alis Duran MD Work Phone: 9(395)132-525777 [place] [address] 07-21-2025 12:11-0400 Systolic blood pressure 129 mm[Hg] Alis Duran MD Work Phone: 6(157)038-154225 [place] [address] 07-21-2025 10:32-0400 Body mass index (BMI) [Ratio] 54.1 kg/m2 Alis Duran MD Work Phone: 3(484)312-244277 [place] [address] 07-21-2025 10:32-0400 Body weight 176.2 kg Alis Duran MD Work Phone: 9(019)807-763725 [place] [address] 07-21-2025 09:08-0400 Body height 180.34 cm Alis Duran MD Work Phone: 5(169)345-235925 [place] [address] 01-28-2025 14:52-0400 Body height 180.34 cm Alis Duran MD Work Phone: 3(092)209-596425 [place] [address] 01-28-2025 14:52-0400 Body mass index (BMI) [Ratio] 50.3 kg/m2 Alis Duran MD Work Phone: 7(257)837-356425 [place] [address] 01-28-2025 14:52-0400 Body temperature 97.6 [degF] Alis Duran MD Work Phone: 4(783)677-535725 [place] [address] 01-28-2025 14:52-0400 Body weight 163.74 kg Alis Duran MD Work Phone: 3(427)335-443825 [place] [address] 01-28-2025 14:52-0400 Diastolic blood pressure 82 mm[Hg] Alis Duran MD Work Phone: 8(252)941-922877 [place] [address] 01-28-2025 14:52-0400 Heart rate 82 /min Alis Duran MD Work Phone: 3(152)342-658977 [place] [address] 01-28-2025 14:52-0400 Respiratory rate 18 /min Alis Duran MD Work Phone: 3(365)718-657277 [place] [address] 01-28-2025 14:52-0400 SaO2% (BldA) [Mass fraction] 97 % Alis Duran MD Work Phone: [facility] 01-28-2025 14:52-0400 Systolic blood pressure 140 mm[Hg] Alis Duran MD Work Phone: [facility] 04-23-2024 08:20-0400 Body height 179.07 cm Fiona Satkowiak PA-C [facility] 04-23-2024 08:20-0400 Body mass index (BMI) [Ratio] 48.07 kg/m2 Fiona Satkowiak PA-C [facility] 04-23-2024 08:20-0400 Body weight 154.13 kg Fiona Satkowiak PA-C [facility] 03-22-2024 09:33-0400 Body mass index (BMI) [Ratio] 51.6 kg/m2 Zack Vigil MD Work Phone: [facility] 03-22-2024 09:33-0400 Body weight 165.47 kg Zack Vigil MD Work Phone: [facility] 03-22-2024 09:33-0400 Diastolic blood pressure 80 mm[Hg] Zack Vigil MD Work Phone: [facility] 03-22-2024 09:33-0400 Heart rate 84 /min Zack Vigil MD Work Phone: [facility] 03-22-2024 09:33-0400 Systolic blood pressure 130 mm[Hg] Zack Vigil MD Work Phone: [facility] 09-25-2023 04:18-0500 Diastolic blood pressure 80 mm[Hg] Bernabe Dooley MD Work Phone: [facility] 09-25-2023 04:18-0500 Heart rate 82 /min Bernabe Dooley MD Work Phone: [facility] 09-25-2023 04:18-0500 Respiratory rate 16 /min Bernabe Dooley MD Work Phone: [facility] 09-25-2023 04:18-0500 SaO2% (BldA) [Mass fraction] 98 % Bernabe Dooley MD Work Phone: [facility] 09-25-2023 04:18-0500 Systolic blood pressure 145 mm[Hg] Bernabe Dooley MD Work Phone: [employer] 09-24-2023 18:17-0500 Body temperature 98.01 [degF] Bernabe Dooley MD Work Phone: [facility] 09-24-2023 18:11-0500 Body height 180.3 cm Bernabe Dooley MD Work Phone: [facility] 09-24-2023 18:11-0500 Body mass index (BMI) [Ratio] 51.6 kg/m2 Bernabe Dooley MD Work Phone: [facility] 09-24-2023 18:11-0500 Body weight 167.83 kg Bernabe Dooley MD Work Phone: [facility] 02-16-2023 09:50-0400 Diastolic blood pressure 66 mm[Hg] [address] 02-16-2023 09:50-0400 Heart rate 86 /min [address] 02-16-2023 09:50-0400 Respiratory rate 15 /min [address] 02-16-2023 09:50-0400 SaO2% (BldA) [Mass fraction] 97 % [address] 02-16-2023 09:50-0400 Systolic blood pressure 140 mm[Hg] [address] 02-16-2023 09:25-0400 Body temperature 98.6 [degF] [address] 02-16-2023 09:00-0400 Body height 180.[address] 02-16-2023 09:00-0400 Body mass index (BMI) [Ratio] 52.09 kg/m2 [address] 02-16-2023 09:00-0400 Body weight 169.[address] 12-23-2022 11:10-0500 Diastolic blood pressure 92 mm[Hg] [address] 12-23-2022 11:10-0500 Heart rate 76 /min [address] 12-23-2022 11:10-0500 Respiratory rate 15 /min [address] 12-23-2022 11:10-0500 SaO2% (BldA) [Mass fraction] 97 % [address] 12-23-2022 11:10-0500 Systolic blood pressure 156 mm[Hg] [address] 12-23-2022 10:41-0500 Body temperature 99.1 [degF] [address] 12-23-2022 09:15-0500 Body height 180.[address] 12-23-2022 09:15-0500 Body mass index (BMI) [Ratio] 53.44 kg/m2 [address] 12-23-2022 09:15-0500 Body weight 173.[address] 10-27-2022 18:15-0500 Diastolic blood pressure 87 mm[Hg] [address] 10-27-2022 18:15-0500 Heart rate 79 /min [address] 10-27-2022 18:15-0500 Respiratory rate 15 /min [address] 10-27-2022 18:15-0500 SaO2% (BldA) [Mass fraction] 100 % [address] 10-27-2022 18:15-0500 Systolic blood pressure 152 mm[Hg] [address] 10-27-2022 17:50-0500 Body temperature 97.5 [degF] [address] 10-26-2022 12:00-0500 Body height 180.[address] 10-26-2022 12:00-0500 Body mass index (BMI) [Ratio] 53 kg/m2 [address] 10-26-2022 12:00-0500 Body weight 172.[address] 04-14-2022 15:29-0400 Body temperature 97.9 [degF] Tye Holbrook MD Work Phone: [facility] 04-14-2022 15:29-0400 Diastolic blood pressure 83 mm[Hg] Tye Holbrook MD Work Phone: [facility] 04-14-2022 15:29-0400 Heart rate 94 /min Tye Holbrook MD Work Phone: [facility] 04-14-2022 15:29-0400 SaO2% (BldA) [Mass fraction] 94 % Tye Holbrook MD Work Phone: [facility] 04-14-2022 15:29-0400 Systolic blood pressure 152 mm[Hg] Tye Holbrook MD Work Phone: [facility] 04-14-2022 14:07-0400 Body height 180.3 cm Tye Holbrook MD Work Phone: [facility] 04-14-2022 14:07-0400 Body mass index (BMI) [Ratio] 51.19 kg/m2 Tye Holbrook MD Work Phone: [facility] 04-14-2022 14:07-0400 Body weight 166.47 kg Tye Holbrook MD Work Phone: [facility] 04-14-2022 03:00-0400 Respiratory rate 18 /min Tye Holbrook MD Work Phone: [facility] 04-22-2021 08:50-0400 Body temperature 98.29 [degF] Sukhwinder Villalobos MD Work Phone: [facility] 04-22-2021 08:50-0400 Diastolic blood pressure 65 mm[Hg] Sukhwinder Villalobos MD Work Phone: [facility] 04-22-2021 08:50-0400 Heart rate 94 /min Sukhwinder Villalobos MD Work Phone: [facility] 04-22-2021 08:50-0400 Respiratory rate 13 /min Sukhwinder Villalobos MD Work Phone: [facility] 04-22-2021 08:50-0400 SaO2% (BldA) [Mass fraction] 92 % Sukhwinder Villalobos MD Work Phone: [facility] 04-22-2021 08:50-0400 Systolic blood pressure 117 mm[Hg] Sukhwinder Villalobos MD Work Phone: [facility] 04-22-2021 06:38-0400 Body height 180.3 cm Sukhwinder Villalobos MD Work Phone: [facility] 04-22-2021 06:38-0400 Body mass index (BMI) [Ratio] 53.35 kg/m2 Sukhwinder Villalobos MD Work Phone: [facility] 04-22-2021 06:38-0400 Body weight 173.5 kg Sukhwinder Villalobos MD Work Phone: [facility] Encounters Encounter Date Encounter Type Care Provider Facility Start: 09-19-2025 ambulatory León Mccray Facility:[facility] Start: 09-16-2025 ambulatory Myriam Aguilar Facility:[facility] Start: 09-09-2025 End: 09-09-2025 ambulatory Alis Duran [facility] Start: 08-21-2025 End: 08-21-2025 Emergency department patient visit Alis Duran MD Work Phone: -Emergency Department Work Phone: Start: 08-21-[address] Myriam Aguilar DO -Physical Therapy Work Phone: Start: 08-19-2025 End: 08-19-[address] León Mccray MD -[facility] Work Phone: Start: 08-19-2025 End: 08-19-2025 ambulatory Alis Duran MD Work Phone: -[facility] Start: 08-13-[address] Myriam Aguilar DO -Physical Therapy Work Phone: Start: 08-13-2025 End: 08-13-2025 ambulatory Alis Duran MD Work Phone: -[facility] Start: 08-13-2025 End: 08-13-[address] León Mccray MD -[facility] Work Phone: Start: 08-12-[address] León Mccray MD -[facility] Start: 08-12-2025 End: 08-12-[address] León Mccray MD -[facility] Work Phone: Start: 08-12-2025 End: 08-13-2025 ambulatory Alis Duran MD Work Phone: [facility] Start: 08-06-2025 [facility] Start: 08-06-2025 [facility] Start: 08-02-2025 End: 08-02-2025 ambulatory Alis Duran MD Work Phone: -[facility] Start: 08-02-2025 End: 08-02-[address] Alis Duran MD -[facility] Start: 08-02-2025 End: 08-02-2025 ambulatory Alis Roger Facility:[facility] Start: 07-26-2025 Non-patient / Non-visit Dr. Myriam Aguilar DO -[facility] Work Phone: Start: 07-25-2025 Non-patient / Non-visit Dr. Myriam Aguialr DO [facility] Work Phone: Start: 07-24-2025 Non-patient / Non-visit Dr. Timoteo Cooper MD -[facility] Work Phone: Start: 07-23-2025 Non-patient / Non-visit Dr. Timoteo Cooper MD -[facility] Work Phone: Start: 07-22-2025 Non-patient / Non-visit Dr. Timoteo Cooper MD -[facility] Work Phone: Start: 07-22-2025 ambulatory [facility] Facility:[facility] Start: 07-22-2025 Non-patient / Non-visit Dr. Rosalee hawkins MD -[facility] Start: 07-21-2025 ambulatory Timoteo Cooper Facility: [facility] Start: 07-21-2025 End: 07-26-2025 Evaluation and management of inpatient Dr. Timoteo Cooper MD -[facility] Work Phone: Start: 07-19-2025 End: 07-19-2025 ambulatory Alis Duran MD Work Phone: -[facility] Start: 07-19-2025 End: 07-19-2025 Patient encounter procedure Yusef Mccoy [employer] -Cardiovascular Services Work Phone: Start: 07-19-2025 End: 07-19-2025 ambulatory Yusef Sotoabel [employer] Facility:[facility] Start: 04-29-2025 End: 04-29-2025 ambulatory Alis Duran MD Work Phone: [facility] Work Phone: Start: 04-29-2025 End: 04-29-[address] Alis Duran MD -[facility] Start: 04-29-2025 End: 04-29-2025 ambulatory Alis Duran Facility:[facility] Start: 01-28-2025 End: 01-28-[address] Lorie Willson MD -[facility] Work Phone: Start: 01-28-2025 End: 01-28-2025 ambulatory Alis Duran [facility] Start: 04-23-2024 End: 04-23-2024 Office outpatient visit 15 minutes Fiona Beckman Work Phone: [facility] [employer] Start: 03-22-2024 ambulatory ZACK VIGIL [facility] Start: 03-22-2024 End: 03-22-2024 Office outpatient visit 25 minutes Zack Vigil MD Work Phone: [facility] Comment on above: Hyperlipidemia, unsp ecified hyperlipidemia type (Primary Dx); Primary hypertension; Cirrhosis of liver without ascites, unspecified hepatic cirrhosis type (CMS/HCC) (HCC); Type 2 diabetes mellitus without complication, without long-term current use of insulin (CMS/HCC) (HCC) Start: 03-20-2024 ambulatory ZACK VIGIL [facility] Start: 01-20-2024 End: 01-20-2024 Office outpatient visit 15 minutes Fiona Beckman Work Phone: [facility] [place] Start: 01-19-2024 End: 01-19-2024 Encounter identifier Nathalia [employer]Appetite+ Work Phone: [facility] [employer] Start: 01-17-2024 End: 01-17-2024 Encounter identifier Nathalia [employer] Work Phone: [facility] Start: 01-12-2024 End: 01-12-2024 Encounter identifier Nathaliajoseph MadrigalPanX Work Phone: [facility] Start: 01-06-2024 End: 01-06-2024 Encounter identifier Nathaliajoseph MadrigaladrianoAppetite+ Work Phone: [facility] Start: 01-05-2024 End: 01-05-2024 Encounter identifier Nathalia R CherylAppetite+ Work Phone: [facility] Start: 12-29-2023 End: 12-29-2023 Encounter identifier Nathalia Jack [employer] Work Phone: [facility] Start: 12-27-2023 End: 12-27-2023 Encounter identifier Nathaliajoseph MadrigaladrianoAppetite+ Work Phone: [facility] Start: 12-17-2023 ambulatory GOMEZ KURTZ [facility] Start: 12-16-2023 [facility] Start: 12-09-2023 [facility] Start: 12-02-2023 End: 12-02-2023 Office outpatient visit 25 minutes Tj Howell Work Phone: [facility] [place] Start: 11-23-2023 ambulatory ZACK [facility] Start: 11-22-2023 Patient encounter procedure Zack Vigil MD Work Phone: [facility] Work Phone: Start: 11-22-2023 Encounter for genera l adult medical examination without abnormal findings ZACK [facility] Start: 11-22-2023 ambulatory ZACK [facility] Start: 11-22-2023 End: 11-22-2023 ambulatory ZACK [facility] Start: 11-22-2023 End: 11-22-2023 Encounter for general adult medical examination without abnormal findings ZACK [facility] Start: 11-02-2023 End: 11-02-2023 Encounter identifier Tj Howell Work Phone: [employer] [place] Start: 10-12-2023 End: 10-12-2023 Office outpatient new 45 minutes Tj Howell Work Phone: [facility] [employer] Start: 09-24-2023 End: 09-25-2023 Emergency department patient visit BERNABE DOOLEY [facility] Start: 09-24-2023 End: 09-25-2023 Emergency department patient visit Bernabe Dooley MD Work Phone: [facility] Comment on above: Painless hematuria ( Primary Dx) Start: 09-24-2023 End: 09-25-2023 Evaluation and management of inpatient Bernabe Dooley MD Work Phone: [facility] Start: 02-16-[address] [facility] Start: 02-16-2023 End: 02-16-2023 Evaluation and management of inpatient McSa Proc Rm [address] [facility] Start: 02-16-2023 End: 02-16-2023 Subsequent hospital visit by physician Vincent Moses MD Work Phone: [facility] Comment on above: Esophageal varices w ithout bleeding, unspecified esophageal varices type (CMS/HCC) [I85.00 (ICD-10-CM)] (Primary Dx); Esophageal varices without bleeding (CMS/HCC) Start: 12-23-2022 ambulatory TAD Wilkinson~[id number] [facility] Start: 12-23-2022 End: 12-23-2022 Evaluation and management of inpatient McSa Proc Rm 02 [facility] Start: 12-23-2022 End: 12-23-2022 Subsequent hospital visit by physician Paul Mishra Work Phone: [facility] Comment on above: Esophageal varices w ithout bleeding, unspecified esophageal varices type (CMS/HCC) [I85.00 (ICD-10-CM)] (Primary Dx); Esophageal varices without bleeding (CMS/HCC) Start: 11-17-2022 ambulatory BISHOP CHO [facility] Start: 11-17-2022 End: 11-17-2022 Evaluation and management of inpatient McCe Xr A [facility] Start: 11-17-2022 End: 11-17-2022 Subsequent hospital visit by physician Judit Ness [facility] Comment on above: Calculus of kidney; Calculus of kidney with calculus of ureter Start: 10-27-2022 ambulatory JOCELYNE TRACEY [facility] Start: 10-27-2022 End: 10-27-2022 Evaluation and management of inpatient McCe Proc Rm 03 [facility] Start: 10-27-2022 End: 10-27-2022 Subsequent hospital visit by physician Jocelyne Tracey MD Work Phone: [facility] Comment on above: Esophageal varices w ith bleeding (CMS/HCC) Start: 09-02-2022 ambulatory [facility] Start: 09-02-2022 End: 09-02-2022 Evaluation and management of inpatient McSam Us 1 [facility] Start: 09-02-2022 End: 09-02-2022 [facility] [address] [place] [address] Comment on above: GLASS (nonalcoholic s teatohepatitis) Start: 04-13-2022 End: 04-14-2022 Emergency department patient visit Tye Holbrook MD Work Phone: [facility] Comment on above: Dyspnea, unspecified type (Primary Dx); SOB (shortness of breath) Start: 04-13-2022 End: 04-14-2022 Evaluation and management of inpatient Tye Holbrook MD Work Phone: [facility] Start: 03-25-2022 End: 03-25-2022 Evaluation and management of inpatient Sbsaturnino Shy Ness [facility] Start: 03-25-2022 End: 03-25-2022 Subsequent hospital visit by physician Judit Ness [facility] Comment on above: Stone, kidney Start: 03-13-2022 End: 03-13-2022 Emergency department patient visit PAUL CARDOSO [facility] Start: 10-13-2021 Transcribe Orders Dandy Healy MD Work Phone: [facility] Comment on above: Body mass index 45.0 -49.9, adult (CMS/HCC) (Primary Dx) Start: 10-13-2021 End: 10-13-2021 Transcribe Orders Dandy Healy MD Work Phone: [facility] Start: 04-22-2021 End: 04-22-2021 ambulatory Lala Dickerson [facility] Start: 04-22-2021 End: 04-22-2021 Subsequent hospital visit by physician Sukhwinder Villalobos MD Work Phone: [facility] Start: 03-20-2021 End: 03-21-2021 ambulatory [facility] Procedures Date Procedure Procedure Detail Performing Clinician Start: 08-21-2025 Urnls dip stick/tablet reagent auto microscopy Alis Duran MD Work Phone: Start: 08-21-2025 Plain chest X-ray Alis Duran MD Work Phone: Start: 08-21-2025 Estimated creatinine clearance Alis koroma MD Work Phone: Start: 08-21-2025 CT of head without contrast Alis Duran MD Work Phone: Start: 08-13-2025 Measurement of occult blood in stool specimen using immunoassay Alis Duran MD Work Phone: Start: 08-12-2025 Urnls dip stick/tablet reagent auto microscopy Alis Duran MD Work Phone: Start: 08-12-2025 Immature reticulocyte fraction Alis koroma MD Work Phone: Start: 08-12-2025 Measurement of haptoglobin Alis Mccarthy Work Phone: Comment on above: Performed at: [facility] [employer] [id number] Director: Tres Cm PhD, Phone: [phone] Start: 08-12-2025 Serum inorganic phosphate measurement Alis Duran MD Work Phone: Start: 08-12-2025 Total iron binding capacity measurement Alis Duran MD Work Phone: Start: 07-26-2025 Estimated creatinine clearance Alis koroma MD Work Phone: Start: 07-26-2025 Serum inorganic phosphate measurement Alis Duran MD Work Phone: Start: 07-24-2025 Red blood cell morphology Alis Duran MD Work Phone: Start: 07-23-2025 Ultrasonography of abdomen Alis Mccarthy Work Phone: Start: 07-23-2025 Immature reticulocyte fraction Alis koroma MD Work Phone: Start: 07-23-2025 Total iron binding capacity measurement Alis Duran MD Work Phone: Start: 07-21-2025 Blood culture Alis Duran MD Work Phone: Start: 07-21-2025 Measurement of occult blood in stool specimen using immunoassay Alis Duran MD Work Phone: Start: 07-21-2025 SARS-CoV-2, Influenza & RSV (PCR) Alis Duran MD Work Phone: Start: 07-21-2025 Urine culture Alis Duran MD Work Phone: Start: 07-21-2025 Urnls dip stick/tablet reagent auto microscopy Alis Durna MD Work Phone: Start: 07-21-2025 CT angiography of chest with contrast Alis Duran MD Work Phone: Start: 07-21-2025 Blood disorder - initial assessment Alis Duran MD Work Phone: Start: 07-21-2025 Blood test Alis Duran MD Work Phone: Start: 07-19-2025 D-dimer assay, quantitative Alis Duran MD Work Phone: Comment on above: D-Dimer ELEVATED (>0.49): Additional beatris dies and clinicalassessments are indicated to conclude diagnosis of:Deep Vein Thrombosis (DVT) or Pulmonary Embolism (PE)CRITICAL VALUE CALLED TO SARAH SPRINGFIELD07/19/25 1632 Apolonia Bearden.RESULTS READ BACK BY SAME. Start: 03-20-2024 Lipid 1996 panel - Serum [...] 12-02-2023 Arthrocentesis aspir&/inj major jt/bursa w/us Fiona Satkowiak PA-C Start: 12-02-2023 End: 12-02-2023 Bupivicaine Injection 0.5 mg Fiona Sat kowiak PA-C Start: 12-02-2023 End: 12-02-2023 Triamcinolone acet inj NOS Fiona Satko wiak PA-C Start: 11-02-2023 End: 11-02-2023 Mri any jt upper extremity w/o contrast matrl Fiona Satkowiak PA-C Start: 10-12-2023 End: 10-12-2023 Radex shoulder complete minimum 2 views Fiona [...] Start: 09-24-2023 Basic metabolic panel calcium total Bernabe Dooley MD Work Phone: Start: 09-24-2023 CBC [...] Start: 04-13-2022 Sars-cov-2 detection by dna/rna Nati parada PA Work Phone: Start: 04-13-2022 Ct angiography chest w/contrast/noncontrast Nati SOTO Work Phone: Start: 04-13-2022 Assay of troponin quantitative Nati castaneda PA Work Phone: Start: 04-13-2022 Radiologic exam chest 2 views Nati SOTO Work Phone: Start: 04-13-2022 Basic metabolic panel calcium total Nati Robles CHARLES Work Phone: Start: 04-13-2022 CBC W Auto Differential panel - Blood Nati Robles CHARLES Work Phone: Start: 04-13-2022 Ecg routine ecg [...] 04-22-2021 Basic metabolic panel calcium total Sukhwinder Villalobos MD Work Phone: Start: 04-22-2021 Blood typing serologic abo Sukhwinder Villalobos MD Work Phone: Start: 04-22-2021 Glucose measurement Sukhwinder Villalobos MD Work Phone: Plan of Treatment Date Care Activity Detail Author Start: 09-16-2032 Screening for malignant neoplasm of colon [facility] Start: 09-14-2032 Screening for malignant neoplasm of colon Colorectal Cancer Screening: Colonoscopy [facility] Start: 07-23-2027 DTaP,Tdap,and Td Vaccines (2 - Td or Tdap) DTaP,Tdap,and Td Vaccines (2 - Td or Tdap) [facility] Start: 07-23-2027 Tdap/Td Vaccines: 21+ Years Tdap/Td Vaccines: 21+ Years [facility] Start: 07-23-2027 Tetanus vaccination Tetanus: Every 10yrs [facility] Start: 11-12-2026 Lipid panel Cholesterol Screening (Lipid Panel) [facility] Start: 08-21-2025 [facility] Start: 08-13-2025 Measurement of occult blood in stool specimen using immunoassay Stool Occult Blood (GIORGIO) [facility] Start: 08-13-2025 Registered Recurring Registered Recurring -Physical Therapy Work Phone: Start: 08-13-2025 Patient encounter procedure Registered Clinical -Laboratory Meghna Work Phone: Start: 07-26-2025 Patient discharge [facility] Start: 07-25-2025 [facility] Start: 07-22-2025 [facility] Start: 07-22-2025 Thyroid stimulating hormone measurement [facility] Start: 07-21-2025 Bacteria identified in Blood by Culture Blood Culture [facility] Start: 07-21-2025 Bacteria identified in Urine by Culture Urine Culture [facility] Start: 07-21-2025 Blood culture Blood Culture [facility] Start: 07-21-2025 Following clinical pathway protocol [facility] Start: 07-21-2025 Application of elastic bandage [facility] Start: 07-21-[address] [facility] Start: 07-21-2025 Elevation of affected extremity [facility] Start: 07-21-2025 Notification of physician [facility] Start: 07-21-2025 Patient education [facility] Start: 07-21-2025 End: 07-21-2025 [facility] Start: 07-21-2025 Continuous positive airway pressure ventilation treatment [facility] Start: 07-21-2025 Admission procedure [facility] Start: 07-21-[address] [facility] Start: 07-21-2025 Oxygen therapy [facility] Start: 07-21-2025 Ambulation without limitation [facility] Start: 07-21-2025 Assessment of risk of venous thromboembolism [facility] Start: 07-21-2025 Hospital admission, emergency, from emergency room, medical nature [facility] Start: 07-21-2025 Insertion of catheter into peripheral vein [facility] Start: 07-21-2025 Measuring intake and output [facility] Start: 07-21-2025 Providing care according to standard [facility] Start: 07-21-2025 Referral for physical therapy [facility] Start: 07-21-2025 Referral to occupational therapist [facility] Start: 07-21-2025 Referral to service [facility] Start: 07-21-2025 Verification routine [facility] Start: 07-21-2025 [facility] Start: 07-21-2025 [facility] Start: 07-21-2025 End: 07-21-2025 [facility] Start: 07-21-2025 Consultation [facility] Start: 07-21-2025 Patient referral to dietitian [facility] Start: 03-20-2025 Creatinine measurement Creatinine Level [facility] Start: 03-20-2025 Lipid panel Lipid Panel [facility] Start: 03-20-2025 Potassium measurement Potassium Level [facility] Start: 09-24-2024 Diabetes: Annual GFR (Glomerular Filtration Rate) Diabetes: Annual GFR (Glomerular Filtration Rate) [facility] Start: 09-20-2024 Hemoglobin A1c measurement Diabetes: Hemoglobin A1C [facility] Start: 07-15-2024 Influenza vaccination Influenza Vaccine (Season Ended) [facility] Start: 01-31-2024 Hemoglobin A1c measurement Diabetes: Blood Sugar Control Test (HGBA1C) [facility] Start: 11-20-2023 Urine screening for protein Diabetes: Urine Protein Screening [facility] Start: 10-12-2023 Shoulder MRI joint, w/o contrast, Left ([id number]), Body Site: [facility] Start: 09-14-2023 Diabetes: Annual GFR (Glomerular Filtration Rate) Diabetes: Annual GFR (Glomerular Filtration Rate) [facility] Start: 09-14-2023 Hypertension/CHF/CAD Annual BMP Blood Test Hypertension/CHF/CAD Annual BMP Blood Test [facility] Start: 07-15-2023 COVID-19 Vaccine ( season) COVID-19 Vaccine ( season) [facility] Start: 07-15-2023 Influenza vaccination Influenza Vaccine (#1) [facility] Start: 04-13-2023 Hypertension/CHF/CAD Annual BMP Blood Test Hypertension/CHF/CAD Annual BMP Blood Test [facility] Start: 03-08-2023 Hypertension/CHF/CAD Annual BMP Blood Test Hypertension/CHF/CAD Annual BMP Blood Test [facility] Start: 11-12-2022 Urine screening for protein Diabetes: Annual Urine Protein Test (Microalbumin) [facility] Start: 09-14-2022 Subsequent hospital visit by physician 09/14/2022 Hospital Encounter Gastroenterology Dionicio Chávez DO [address] [place] [address] [facility] Start: 07-15-2022 Influenza vaccination [facility] Start: 01-23-2022 COVID-19 Vaccine (4 - Booster for Pfizer series) COVID-19 Vaccine (4 - Booster for Pfizer series) [facility] Start: 12-02-2021 Diabetes: Annual Retina Eye Exam Diabetes: Annual Retina Eye Exam [facility] Start: 12-02-2021 Diabetes: Annual Urine Albumin-Creatinine Ratio Diabetes: Annual Urine Albumin-Creatinine Ratio [facility] Start: 12-02-2021 Diabetes: Annual Urine Albumin-Creatinine Ratio (uACR) Diabetes: Annual Urine Albumin-Creatinine Ratio (uACR) [facility] Start: 12-02-2021 Diabetic foot examination Diabetes: Annual Foot Exam [facility] Start: 12-02-2021 Hemoglobin A1c measurement Diabetes: Blood Sugar Control Test (HGBA1C) [facility] Start: 12-02-2021 Urine screening for protein Diabetes: Annual Urine Protein Test (Microalbumin) [facility] Start: 10-13-2021 End: 10-13-2022 US Abdomen Limited US Abdomen Limited Imaging Routine Body mass index 45.0-49.9, adult (CMS/HCC) Expected: 10/13/2021, Expires: 10/13/2022 [facility] Work Phone: Comment on above: Expected: 10/13/2021, Expires: Start: 07-15-2021 Influenza vaccination Influenza Vaccine (#1) [facility] Start: 04-30-2021 End: 04-30-2021 Patient encounter procedure 04/30/2021 Office Visit General Surgery Sukhwinder Villalobos MD [address] [place] [address] [phone] [facility] Start: 12-23-2019 Adolescent depression screening assessment Depression Screening [facility] Start: 12-23-2019 Hepatitis C screening Hepatitis C Screening [facility] Start: 12-23-2019 HIV screening HIV Screening [facility] Start: 12-23-2019 Lipid panel Cholesterol Screening (Lipid Panel) [facility] Start: 12-23-2019 Social Influencers of Health Screening Social Influencers of Health Screening [facility] Start: 1997 DTaP,Tdap,and Td Vaccines (1 - Tdap) DTaP,Tdap,and Td Vaccines (1 - Tdap) [facility] Start: 1996 Hepatitis C screening Hepatitis C Screening [facility] Start: 1993 HIV screening HIV Screening [facility] Start: 1990 COVID-19 Vaccine (1) COVID-19 Vaccine (1) [facility] Start: 1990 Depression screening using PHQ-9 (Patient Health Questionnaire 9) score Depression Screening (PHQ9) [facility] Start: 1988 Diabetes: Annual Retina Eye Exam Diabetes: Annual Retina Eye Exam [facility] Start: 1988 Diabetic foot examination [facility] Start: 1988 Glaucoma screening Diabetes: Retinopathy Screening [facility] Start: 1988 Microalbumin measurement, urine, quantitative Urine Microalbumin [facility] Start: 1988 Ophthalmic examination and evaluation Ophthalmology Exam [facility] Start: 1984 Pneumococcal Vaccine: Pediatrics (0 to 5 Years) and At-Risk Patients (6 to 64 Years) (1 - PCV) Pneumococcal Vaccine: Pediatrics (0 to 5 Years) and At-Risk Patients (6 to 64 Years) (1 - PCV) [facility] Start: 1984 Pneumococcal Vaccine: Pediatrics (0 to 5 Years) and At-Risk Patients (6 to 64 Years) (1 of 2 - PCV) Pneumococcal Vaccine: Pediatrics (0 to 5 Years) and At-Risk Patients (6 to 64 Years) (1 of 2 - PCV) [facility] Start: 1984 Pneumococcal Vaccine: Pediatrics (0 to 5 Years) and At-Risk Patients (6 to 64 Years) (1 of 2 - PPSV23) Pneumococcal Vaccine: Pediatrics (0 to 5 Years) and At-Risk Patients (6 to 64 Years) (1 of 2 - PPSV23) [facility] Start: 1981 History and physical examination, annual for health maintenance Wellness Visit [facility] Start: 1979 MMR Vaccines (1 of 1 - Standard series) MMR Vaccines (1 of 1 - Standard series) [facility] Start: 1978 Hemoglobin A1c measurement A1C [facility] Start: 1978 HIV screening HIV Screening [facility] Start: 1978 Screening for malignant neoplasm of colon [facility] Alanine aminotransfe rase [Enzymatic activity/volume] in Serum or Plasma [facility] Albumin [Mass/volume ] in Serum or Plasma [facility] Alkaline phosphatase [Enzymatic activity/volume] in Serum or Plasma [facility] Anion gap in Serum o r Plasma [facility] Bilirubin, total measurement [facility] Bilirubin.direct [Mass/volume] in Serum or Plasma [facility] BUN/Creatinine ratio [facility] Calcium [Mass/volume ] in Serum or Plasma [facility] Carbon dioxide, tota l [Moles/volume] in Central venous blood [facility] Creatinine [Mass/vol ume] in Serum or Plasma [facility] Erythrocyte mean corpuscular volume determination [facility] Glucose [Mass/volume ] in Serum or Plasma [facility] Hematocrit [Volume Fraction] of Blood [facility] Hemoglobin [Mass/vol ume] in Blood [facility] Leukocytes [#/volume ] in Blood [facility] Magnesium measurement [facility] Mean corpuscular hemoglobin concentration determination [facility] Mean corpuscular hemoglobin determination [facility] Measurement of renal function [facility] Neutrophil count [facility] Neutrophil percent differential count [facility] Patient Education ED Confusion E D Near-Fainting, Uncertain Cause ED Vomiting (Adult) [facility] Work Phone: Platelets [#/volume] in Blood [facility] Potassium measurement [facility] Red blood cell count [facility] Red cell distributio n width determination [facility] Serum chloride measurement [facility] Sodium measurement [facility] Total protein measurement [facility] Troponin T.cardiac [Mass/volume] in Serum or Plasma by High sensitivity method [facility] Urea nitrogen [Mass/volume] in Serum or Plasma [facility] Urine culture General acute hospital Immunizations Immunization Date Immunization Notes [facility] Provider [facility]-30-2022 influenza, injectabl e, quadrivalent, preservative free Zack Vigil MD Work Phone: [facility] Work Phone: 11-30-2022 influenza virus vaccine, unspecified formulation Bernabe Dooley MD Work Phone: [facility] 11-28-2021 Pfizer COVID-19, mRN A, 30 mcg/0.3mL Zack Vigil MD Work Phone: [facility] 03-22-2021 Pfizer SARS-CoV-2 Vaccination Sukhwinder Villalobos MD Work Phone: [facility] 03-01-2021 Pfizer COVID-19, mRN A, 30 mcg/0.3mL Zack Vigil MD Work Phone: [facility] 08-21-2020 influenza, injectabl e, quadrivalent, preservative free Zack Vigil MD Work Phone: [facility] 08-21-2020 influenza virus vaccine, unspecified formulation McCe A [facility] 10-19-2019 influenza, injectabl e, quadrivalent, preservative free Zack Vigil MD Work Phone: [facility] 08-16-2018 influenza, injectabl e, quadrivalent, preservative free Zack Vigil MD Work Phone: [facility] 07-23-2017 influenza, injectabl e, quadrivalent, preservative free Zack Vigil MD Work Phone: [facility] 07-23-2017 tetanus toxoid, reduced diphtheria toxoid, and acellular pertussis vaccine, adsorbed Zack Vigil MD Work Phone: [facility] 01-14-2017 hepatitis A vaccine, adult dosage Zack Vigil MD Work Phone: [facility] 01-14-2017 hepatitis B vaccine, adult dosage Zack Vigil MD Work Phone: [facility] 05-31-2016 Hepatitis B vaccine (recombinant), CpG adjuvanted Zack Vigil MD Work Phone: [facility] 05-31-2016 hepatitis B vaccine, adult dosage Zack Vigil MD Work Phone: [facility] Work Phone: 03-25-2016 hepatitis A vaccine, adult dosage Zack Vigil MD Work Phone: [facility] 03-25-2016 Hepatitis B vaccine (recombinant), CpG adjuvanted Zack Vigil MD Work Phone: [facility] 03-25-2016 hepatitis B vaccine, adult dosage Zack Vigil MD Work Phone: [facility] Payers Date Payer Category Payer Self-pay 2024 Unknown [id number] 2018 Private Health Insurance [id number]. [id number] 2018 Unknown [id number] 2018 Unknown [id number] 1.2.840.509826.1.13.385. 2.7.3.226455.315 1978 Unknown [id number] 2.16.840.1.448471.3.579. 2.900 1978 Unknown [id number] 2.16.840.1.905863.3.579. 2.902 1978 Unknown [id number] 2.16.840.1.277516.3.579. 2.902 1978 Unknown [id number] 2.16.840.1.810965.3.579. 2.1143 1978 Unknown [id number] 2.16.840.1.538877.3.579. 2.1143 1978 Unknown [id number] 2.16.840.1.336898.3.579. 2.1143 1978 Unknown [id number] 2.16.840.1.747172.3.579. 2.1143 1978 Unknown [id number] 2.16.840.1.467432.3.579. 2.1143 1978 Unknown [id number] 2.16.840.1.237487.3.579. 2.114 1978 Unknown [id number] 2.16.840.1.178941.3.579. 2.1260 1978 Unknown [id number] 2.16.840.1.831146.3.579. 2.0 1978 Unknown [id number] 2.16.840.1.030955.3.579. 2.0 1978 Unknown [id number] 2.16.840.1.377463.3.579. 2.0 1978 Unknown [id number] 2.16.840.1.811225.3.579. 2.1260 1978 Unknown [id number] 2.16.840.1.442376.3.579. 2.1259 1978 Unknown [id number] 2.16.840.1.435754.3.579. 2.0 1978 Unknown [id number] 2.16.840.1.698888.3.579. 2.0 1978 Unknown [id number] 2.16.840.1.093504.3.579. 2.1260 Unknown SELF INS [facility] BERMAID 2000 [id number] Unknown [id number] 2.16.840.1.246068.3.579. 2.462 Unknown [id number] 2.16.840.1.570713.3.579. 2.462 Unknown [id number] 2.16.840.1.614135.3.579. 2.462 Unknown [id number] 2.16.840.1.209077.3.579. 2.462 Unknown [id number] 2.16.840.1.912362.3.579. 2.462 Unknown [id number] 2.16.840.1.999936.3.579. 2.462 Unknown [id number] 2.16.840.1.064769.3.579. 2.462 Unknown [id number] 2.16.840.1.732066.3.579. 2.462 Unknown [id number] 2.16.840.1.441982.3.579. 2.462 Unknown [id number] 2.16.840.1.753943.3.579. 2.462 Unknown [id number] 2.16.840.1.458746.3.579. 2.462 Unknown [id number] 2.16840.1.698692.3.579. 2.462 Unknown [id number] 2.16840.1.982244.3.579. 2.462 Unknown [id number] 2.16.840.1.876451.3.579. 2.462 Unknown [id number] 2.16.840.1.251317.3.579. 2.462 Unknown [id number] 2.16840.1.927117.3.579. 2.462 Unknown [id number] 2.16840.1.493278.3.579. 2.462 Unknown [id number] 2.16840.1.477272.3.579. 2.462 Unknown [id number] 2.16840.1.264014.3.579. 2.462 Unknown [id number] 2.16840.1.347308.3.579. 2.462 Social History Date Type Detail Facility Start: 04-22-2021 End: 08-21-2025 Tobacco smoking status NHIS Never smoker [facility] Start: 04-22-2021 End: 11-22-2023 Tobacco use and exposure Never used [facility] Start: 04-22-2021 End: 09-24-2023 Alcohol intake Current drinker of alcohol (finding) [facility] Start: 04-22-2021 End: 11-22-2023 Alcohol intake [facility] Start: 02-11-2016 Alcohol Comment occasionally [facility] Start: 1980 Sex Assigned At Not on file [facility] Start: 03-15-2022 End: 02-16-2023 Exposure to SARS-CoV-2 (event) Not sure [facility] Tobacco smoking stat us NYIS Unknown if ever smoked [facility] Start: 04-13-2022 End: 03-22-2024 Alcohol intake Ex-drinker (finding) [facility] Start: 10-27-2022 Alcohol Comment rare [facility] Start: 11-22-2023 End: 03-22-2024 Gender identity Not on file [facility] How often to you hav e a drink containing alcohol? Monthly or less [facility] How many standard drinks containing alcohol do you have on a typical day? 1 or 2 [facility] Work Phone: How often do you hav e 6 or more drinks on 1 occasion? Never [facility] Work Phone: How hard is it for y ou to pay for the very basics like food, housing, medical care, and heating Not very hard [facility] Work Phone: The food that (I/we) bought just didn't last, and (I/we) didn't have money to get more. Never true [facility] Work Phone: In the past 12 month s, has lack of transportation kept you from medical appointments or from getting medications? No [facility] Work Phone: In the past 12 month s, was there a time when you were not able to pay the mortgage or rent on time? No [facility] Work Phone: Start: 11-22-2023 Tobacco Comment Very brief experimentation in college [facility] Work Phone: Start: 11-22-2023 Alcohol Comment Maybe one chau jin every few years on very special occasions [facility] Work Phone: Start: 04-23-2024 Alcohol intake Alcohol Use Details [facility] Start: 1980 Sex Assigned At Male [facility] Work Phone: Start: 01-21-2020 Sexual Orientation Straight or heterosexual [facility] NEGATED: Highlighted rowStart: 04-23-2024 Tobacco smoking status NHIS Unknown if ever smoked [facility] Medical Equipment Procedure Code Equipment Code Equipment Origin al Text Equipment Identifier Dates Patch 1.7in [place] W/Strap Sm Ventralex St - [id number] , [id number]_[facility] FDA Start: 04-22-2021 Goals Date Patient Goal Desired Activity /State Functional Status Date Assessment Result Facility 07-26-2025 Functional status Ambulates [facility] Work Phone: 04-23-2024 Pain severity - 0-10 verbal numeric rating [Score] - Reported 1/10 [facility] Mental Status Date Assessment Result Facility 08-21-2025 Cognitive function Awake [facility] Work Phone: 07-26-2025 Cognitive function Voice/Name [facility] Work Phone: 07-21-2025 Cognitive function Awake;Alert;A ppropriate;Fol lows Commands [facility] Work Phone: Clinical Notes 04-17-2021 to 08-21-2025 Note Date & Type Note Facility 08-21-2025 Discharge summary [facility] 08-21-2025 Radiology Diagnostic study note [facility] Imaging Services [address] [place], [place] [address] Brain/Head without Contrast MR#: [id number] Acct: [id number] Name: LEON RIDER Rep #: [id number] : 1980 M 45 From: Rosa Morrison MD PCP: Dr. Alis Duran MD Status: REG ER Study:Brain/Head without Contrast Date of Exa m: 08/21/25 Exam# [id number] Ordering Dr: Vincenzo Chavarria MD EXAM: CT Head Without Intravenous Contrast CLINICAL INDICATION: DIZZINESS TECHNIQUE: Axial computed tomography images of the head/brain without intravenous contrast. This CT exam was performed using one or more of the following dose reduction techniques: automated exposure control, adjustment of the mA and/or kV according to patient size, and/or use of iterative reconstruction technique. COMPARISON: No relevant prior studies available. FINDINGS: BRAIN AND EXTRA-AXIAL SPACES: No acute intracranial hemorrhage, midline shift or mass effect. If symptoms persist, further evaluation with MRI is recommended. No significant white matter disease. BONES/JOINTS: Unremarkable. No acute fracture. SOFT TISSUES: Unremarkable. SINUSES: Unremarkable as visualized. No acute sinusitis. MASTOID AIR CELLS: Unremarkable as visualized. No mastoid effusion. CT/Brain/Head without Contrast IMPRESSION: No acute intracranial hemorrhage, midline shift or mass effect. If symptoms persist, further evaluation with MRI is recommended. Reading Location: [facility] CC: Dr. Vincenzo Chavarria MD; Dr. Alis Duran MD ~ Banking Representative: Signed [facility] 08-21-2025 Radiology Diagnostic study note [facility] Imaging Services [address] [place] [address] [id number] Chest 1 View (Portable) MR#: [id number] Acct: [id number] Name: LEON RIDER Rep #: [id number] : 1980 M 45 From: Rosa Morrison MD PCP: Dr. Alis Duran MD Status: REG ER Study:Chest 1 View (Portable) Date of Exam: 08/21/25 Exam# [id number] Ordering Dr: Vincenzo Chavarria MD EXAM: XR Chest, 1 View CLINICAL INDICATION: CONGESTIVE HEART FAILURE TECHNIQUE: Frontal view of the chest. COMPARISON: No relevant prior studies available. FINDINGS: LUNGS AND PLEURAL SPACES: See below. HEART: Cardiomegaly with mild congestion. MEDIASTINUM: Unremarkable. Normal mediastinal contour. BONES/JOINTS: Unremarkable. No acute fracture. RAD/Chest 1 View (Portable) IMPRESSION: Cardiomegaly with mild congestion. Reading Location: [facility] CC: Dr. Vincenzo Chavarria MD; Dr. Alis Duran MD ~ Banking Representative: Signed [facility] 08-21-2025 Discharge summary Note Date/Time August 21, 2025 8:56pm [facility] Medical Records Department [address] [place] [address] Emergency Department Summary 08/21/25 MR#: [id number] Acct: [id number] Name: LEON RIDER Rep #:[id number] : 1980 45 From: Vincenzo Chavarria MD PCP: Dr. Alis Duran MD Status:REG ER Location: ED HPI History of Present Illness Chief Complaint: Dizziness Narrative Narrative: 45-year-old male past medical history of CHF, hypertension, diabetes presents with his mother because of dizziness/lightheadedness and feeling off balance since 11:00 this morning, approximately 6 hours ago. He then began having nausea and vomiting at 3 PM, approximately 2 hours ago. He vomited twice without any hematemesis, no diarrhea, no dysuria or hematuria, no fevers or chills, no exacerbating or alleviating factors. He and his mother relate history that he was hospitalized a few weeks ago and is supposed to follow-up with cardiology. They changed his diuretic from furosemide to 2 other ones which she is unsure of the name. His mother states that he seems confused today, and not quite himself. He denies any headache, no exacerbating or alleviating factors but may feel slightly off balance when he walks. [facility] Medical History Kidney stones Cirrhosis Non-smoker Irregular heart beat Congestive heart failure (CHF) Chronic idiopathic thrombocytopenia Hx of cirrhosis Anemia HTN (hypertension) Diabetes Acid reflux Rectal bleeding Hemorrhoids Home Medications ?Medication ?Instructions ?Recorded ?Last Taken ?Type metformin 1,000 mg tablet 1,000 mg PO BID diabetes Unknown History sitagliptin phosphate 100 mg 100 mg PO QDAY diabetes 0 01/28/25 Unknown History tablet (Januvia) atorvastatin 20 mg tablet 20 mg PO DAILY cholesterol 0 07/21/25 Unknown History omeprazole 40 mg capsule,delayed 40 mg PO DAILY stomac h 07/21/25 Unknown History release repaglinide 1 mg tablet 1 mg PO BID diabetes 5 Unknown History CPAP - Continuous Positive Airway 07/23/25 Unknown Hi story Pressure([facility] INFORMATIONAL USE ONLY) bumetanide 2 mg tablet 2 mg PO BID #60 tabs 5 Unknown Rx nadolol 20 mg tablet 20 mg PO BID #60 tabs Unknown Rx oxycodone 5 mg tablet 5 mg PO Q6H PRN PRN Pain Sco re 07/26/25 Unknown Rx 6-10 or Pre PT/OT 7 days #30 tabs potassium chloride 20 mEq 20 meq PO DAILY #30 tabs 11/07 Unknown Rx tablet,extended release(part/cryst) (Klor-Con M) spironolactone 25 mg tablet 25 mg PO DAILY #30 tabs Unknown Rx ondansetron 4 mg disintegrating 4 mg PO Q8H PRN PRN Na usea #15 tabs 08/21/25 Un known Rx tablet Allergy/AdvReac Type Severity Reaction Status Date / Time No Known Allergies Allergy Verified 08/19/25 14:53 Family History Other Diabetes Heart disease Surgical History H/O umbilical hernia repair [place] teeth extracted Social History household members: spouse housing: house Smoking Status: Never smoker alcohol intake: never substance use type: does not use ROS ROS ED ROS Narrative Review of systems positive for reported confusion, positive for lightheadedness/dizziness worse with walking. No fevers or chills, no headache. No shortness of breath or chest pain. Positive nausea and vomiting x 2. No diarrhea. No exacerbating or alleviating factors otherwise. EXAM Physical Exam Narrative Exam Narrative: Afebrile. Vital signs noted. Nontoxic-appearing. Cardiovascular examination regular rate and rhythm. Lungs clear to auscultation bilaterally. Abdomen is soft and nontender without guarding or rebound. Neurological examination nonfocal, nonlateralizing. Awake, alert, oriented to person, place, time, and current events. Bilateral symmetric pedal edema. Const Vital Signs: 08/21/25 16:27 08/21/25 17:25 08/21/25 17:33 Temperature 97.2 F L Temperature Source Temporal Pulse Rate 74 82 Pulse Rate [Lying] 77 Pulse Rate [Sitting (for 1 minute prior to obtaining)] 78 Pulse Rate [Standing (for 1 minute prior to obtaining)] 77 Respiratory Rate 16 18 Blood Pressure 124/63 H 126/58 H Blood Pressure [Lying] 118/55 L Blood Pressure [Sitting (for 1 minute prior to obtaining)] 126/58 H Blood Pressure [Standing (for 1 minute prior to obtaining)] 108/60 Blood Pressure Mean 83 80 Blood Pressure Mean [Lying] 76 Blood Pressure Mean [Sitting (for 1 minute prior to obtaining)] 80 Blood Pressure Mean [Standing (for 1 minute prior to obtaining)] 76 Pulse Ox 97 95 Oxygen Delivery Method Room Air Room Air 08/21/25 18:27 08/21/25 19:00 08/21/25 20:00 Temperature Temperature Source Pulse Rate 79 73 76 Pulse Rate [Lying] Pulse Rate [Sitting (for 1 minute prior to obtaining)] Pulse Rate [Standing (for 1 minute prior to obtaining)] Respiratory Rate 20 H 19 H 18 Blood Pressure 91/47 L 112/52 L 101/44 L Blood Pressure [Lying] Blood Pressure [Sitting (for 1 minute prior to obtaining)] Blood Pressure [Standing (for 1 minute prior to obtaining)] Blood Pressure Mean 61 72 63 Blood Pressure Mean [Lying] Blood Pressure Mean [Sitting (for 1 minute prior to obtaining)] Blood Pressure Mean [Standing (for 1 minute prior to obtaining)] Pulse Ox 98 99 99 Oxygen Delivery Method Room Air Room Air 08/21/25 20:46 Temperature 97.2 F L Temperature Source Pulse Rate 73 Pulse Rate [Lying] Pulse Rate [Sitting (for 1 minute prior to obtaining)] Pulse Rate [Standing (for 1 minute prior to obtaining)] Respiratory Rate 18 Blood Pressure 109/50 L Blood Pressure [Lying] Blood Pressure [Sitting (for 1 minute prior to obtaining)] Blood Pressure [Standing (for 1 minute prior to obtaining)] Blood Pressure Mean 69 Blood Pressure Mean [Lying] Blood Pressure Mean [Sitting (for 1 minute prior to obtaining)] Blood Pressure Mean [Standing (for 1 minute prior to obtaining)] Pulse Ox 98 Oxygen Delivery Method MDM MDM MDM Narrative Medical decision making narrative: Differential diagnosis includes but not limited to intravascular volume depletion versus dehydration versus other electrolyte abnormality. He may have benign positional vertigo as well. I have low suspicion for intracranial hemorrhage. CT imaging of the brain will be obtained as well as basic laboratory work. EKG was obtained and interpreted by myself independently as normal sinus rhythm at 77 bpm without ectopy or acute ST changes. No STEMI. I reviewed his laboratory work and he has normal white count of 6.3 with hemoglobin stable at 10.4 when compared to prior labs. Platelet count is pending but he has had chronic thrombocytopenia when compared to prior labs as well. Chloride slightlylow at 96 with sodium normal at 136 and potassium normal 3.4, glucose 83. BNP 188. Chest x-ray interpreted by myself independently shows no consolidation or pneumonia. I do not feel antibiotics are indicated. No pneumothorax. He does have vascular congestion. I reviewed the radiology report which confirms my independent interpretation. Urinalysis shows no leukocytes or nitrites. Negative for infection on microanalysis. I do not feel antibiotics are indicated. He does have 5 ketones which may be very mild dehydration. Orthostatics are negative. BNP is 188. I do not feel that he is in pulmonary edema. Review of the CT of the brain shows no evidence of an acute process. No hemorrhage or mass. Upon repeat examination at approximately 2044, he states hefeels mildly to moderately improved. I do not feel he is meeting any admission or observation criteria. I feel he can be discharged safely home with follow-up. I wrote him a prescription for Zofran 4 mg ODT's. He will follow-up with his primary care provider. Return instructions to the emergency department werereviewed. Disposition is discharged home in stable condition. History & Record Review Discussion w/independent historian: Patient and Family Additional record(s) reviewed:: Prior labs Lab Data Attestation: I reviewed the patient's lab results. Labs: Laboratory Results - last 24 hr 08/21/25 08/21/25 17:20 18:22 WBC 6.3 RBC 3.84 L Hgb 10.4 L Hct 32.6 L MCV 84.9 MCH 27.1 MCHC 31.9 L RDW Std Deviation 73.9 H RDW Coeff of Melina 23.9 H Plt Count TNP MPV TNP Immature Gran % (Auto) 0.300 Neut % (Auto) 57.4 Lymph % (Auto) 17.7 L Sandoval % (Auto) 14.2 H Eos % (Auto) 8.8 H Baso % (Auto) 1.6 H Absolute Neuts (auto) 3.6 Absolute Lymphs (auto) 1.11 Nucleated RBC % 0 Differential Comment SCANNED Platelet Estimate SLT DEC Polychromasia 1+ Anisocytosis 2+ Sodium 136 Potassium 3.4 Chloride 96 L Carbon Dioxide 21.1 Anion Gap 20 H BUN 15 Creatinine 0.82 Estim Creat Clear Calc 160.45 Est GFR (MDRD) Non-Af 109 BUN/Creatinine Ratio 18.2 Glucose 83 Calcium 9.0 NT pro BNP II 188 Urine Color Yellow Urine Clarity Cloudy Urine pH 6.0 Ur Specific [place] 1.020 Urine Protein 15 H Urine Glucose (UA) Normal Urine Ketones 5 H Urine Occult Blood 25 H Urine Nitrite Negative Urine Bilirubin Negative Urine Urobilinogen 1 H Ur Leukocyte Esterase Negative Urine RBC 0-5 SEEN Urine WBC 0-5 SEEN Ur Squamous Epith Cells 0-5 SEEN Urine Bacteria 0 SEEN Urine Mucus 0 SEEN Radiography Chest X-Ray - ED: 1 View, Read by ED Physician, Read by Radiologist and No AcuteDisease Diagnostic Testing: Clinical Impression(s) from Imaging Studies Brain CT 08/21/25 17:10 IMPRESSION: No acute intracranial hemorrhage, midline shift or mass effect. If symptoms persist, further evaluation with MRI is recommended. Reading Location: [facility] Chest X-Ray 08/21/25 18:00 IMPRESSION: Cardiomegaly with mild congestion. Reading Location: [facility] Discharge Plan Triage Chief Complaint: Dizziness Other Complaint: Nausea/Vomiting ED Provider: Vincenzo Chavarria Dx/Rx/DC Orders Clinical Impression: Nausea and vomiting, Malaise, Lightheadedness, Confusion Instructions: ED Confusion, ED Near-Fainting, Uncertain Cause, ED Vomiting (Adult) Prescriptions: New ondansetron 4 mg tablet,disintegrating 4 mg PO Q8H PRN PRN (Reason: Nausea) Qty: 15 0RF No Action metformin 1,000 mg tablet 1,000 mg PO BID Januvia 100 mg tablet 100 mg PO QDAY atorvastatin 20 mg tablet 20 mg PO DAILY omeprazole 40 mg capsule,delayed release(DR/EC) 40 mg PO DAILY repaglinide 1 mg tablet 1 mg PO BID (DME) CPAP - Continuous Positive Airway Pressure([facility] INFORMATIONAL USE ONLY) Device See Rx Instructions .Route Rx Instructions: As directed nadolol 20 mg Tablet 20 mg PO BID Qty: 60 0RF oxycodone 5 mg Tablet 5 mg PO Q6H PRN PRN (Reason: Pain Score 6-10 or Pre PT/OT) 7 Days Qty: 30 0RF spironolactone 25 mg Tablet 25 mg PO DAILY Qty: 30 0RF bumetanide 2 mg tablet 2 mg PO BID Qty: 60 0RF potassium chloride [Klor-Con M20] 20 mEq tablet,ER particles/crystals 20 meq PO DAILY Qty: 30 0RF Primary Care Provider: Alis Duran Referrals: Alis Duran MD [Primary Care Provider, Family Practice] - 3-5 Days if not improving Activity Restrictions/Additional Instructions: Follow-up with your primary care provider in the next 3 to 5 days if not improving. Return with new or worsening symptoms. Clear liquid diet, advance as tolerated. Print Language: Algerian Disposition Disposition: Home, Self Care What to do if you have Problems For any increased pain, shortness of breath, bleeding, nausea or vomiting, chestpain, or any unexpected problems, contact your Primary Care Provider. Call [facility] ([phone]) or report to the closest Emergency Room. Call 911 if necessary. 08/21/252055 <Electronically signed by Vincenzo Chavarria MD> Cosign Signature (if applicable): CC: Dr. Alis Duran MD ~ Signed [facility] Work Phone: [phone] 356-347810-06-2025 [facility] [place] [address] OFFICE VISIT Date of Service: 08/19/25 1447 MR#: [id number] Acct: [id number] Name: LEON RIDER Rep #: [id number] : 1980 From: León Mccray MD Age/Sex: 45/M [place] [facility] Status: Signed HPI Subjective Date of Service 08/19/25 Chief Complaint F/u for anemia. 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 He has had esophageal varices which has been banded in [place]. Denies recent bleeding. Had blood work done and comes for follow up. Feels well. [facility] Medical History Hx of cirrhosis Anemia Chronic idiopathic thrombocytopenia HTN (hypertension) Diabetes Acid reflux Rectal bleeding Hemorrhoids Surgical History H/O umbilical hernia repair [place] teeth extracted Family History Other Diabetes Heart disease Social History household members: spouse housing: house Smoking Status: Never smoker alcohol intake: never substance use type: does not use Intake Vital Signs 08/12/25 08:24 08/19/25 14:48 Height 5 ft 11 in 5 ft 11 in Weight: 141.237 kg BMI 43.4 BP 116/68 Blood Pressure Location Rt brachial Position Sitting Respiration 18 Pulse 82 Pulse Source Monitor Temp 98.6 F Temperature Source Temporal Artery Pulse Oximetry (%) 95 Oxygen Delivery Method room air Intake Accompanied by: Self Is patient in pain?: Yes (leg) Pain scale (1-10): 1 Allergies No Known Allergies Allergy (Verified 08/19/25 14:53) Medications ?Medication ?Instructions ?Recorded ?Confirmed ?Type metformin 1,000 mg tablet 1,000 mg PO BID diabetes 08/19/25 History sitagliptin phosphate 100 mg 100 mg PO QDAY diabetes 0 01/28/25 08/19/25 History tablet (Januvia) atorvastatin 20 mg tablet 20 mg PO DAILY cholesterol 0 07/21/25 08/19/25 History omeprazole 40 mg capsule,delayed 40 mg PO DAILY stomac h 07/21/25 08/19/25 History release repaglinide 1 mg tablet 1 mg PO BID diabetes 5 08/19/25 History CPAP - Continuous Positive Airway 07/23/25 08/19/25 H istory Pressure([facility] INFORMATIONAL USE ONLY) bumetanide 2 mg tablet 2 mg PO BID #60 tabs 5 08/19/25 Rx nadolol 20 mg tablet 20 mg PO BID #60 tabs 08/19/25 Rx oxycodone 5 mg tablet 5 mg PO Q6H PRN PRN Pain Sco re 07/26/25 08/19/25 Rx 6-10 or Pre PT/OT 7 days #30 tabs potassium chloride 20 mEq 20 meq PO DAILY #30 tabs 11/0708/19/25 Rx tablet,extended release(part/cryst) (Klor-Con M) spironolactone 25 mg tablet 25 mg PO DAILY #30 tabs 08/19/25 Rx Central Venous Access Central Venous Access: No Microbiology 08/13/25 07:20 Stool Stool Occult Blood (GIORGIO) - Final Occult Blood Positive Laboratory Tests 08/12/25 09:28 WBC 5.2 Hgb 10.0 L Hct 32.2 L Plt Count 115 L Iron 40 L Iron Saturation 12.3 Ferritin 60 Total Bilirubin 2.60 H AST 65 H ALT 28 Alkaline Phosphatase 115 Lactate Dehydrogenase 413 H Total Protein 8.3 Albumin 2.6 L Globulin 5.7 H Exam Physical Exam Const alert, oriented x3 and no apparent distress Coding Level of Care Code Off vis,est,level 3 Exam Problem Focused Diagnoses Iron deficiency anemia due to chronic blood loss D50.0 Anemia type: iron deficiency Iron deficiency anemia type: chronic blood loss Positive fecal occult blood test R19.5 Iron deficiency anemia due to chronic blood loss D50.0 Iron deficiency anemia type: chronic blood loss Assessment and Plan Assessment and Plan (1) Anemia: Qualifiers: Anemia type: iron deficiency Iron deficiency anemia type: chronic bloodloss Qualified Code(s): D50.0 - Iron deficiency anemia secondary to blood loss (chronic) Plan: To obtain Pre-authorization and do IV iron Obtain old records for review. RTC 8 weeks (2) Positive fecal occult blood test: Status: Acute Plan: To follow up with GI for further work up. (3) Iron deficiency anemia: Status: Acute Qualifiers: Iron deficiency anemia type: chronic blood loss Qualified Code(s): D50.0 - Iron deficiency anemia secondary to blood loss (chronic) Plan: To obtain Pre-authorization and do IV Iron. Plan Details Follow Up: 8 Weeks 08/19/25 1513 D> Date _ León Mccray MD [facility] Signature: Date (if applicable) CC: Dr. Alis Duran MD ~ [facility]09-29-2025 [facility] [address] [address] OFFICE VISIT Date of Service: 08/12/25822 MR#: [id number] Acct: [id number] Name: LEON RIDER Rep #: [id number] : 1980 From: León Mccray MD Age/Sex: 45/M [place] [facility] [place] Status: Signed HPI Subjective Date of Service 08/12/25 Chief Complaint Referred for anemia. 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 He has had esophageal varices which has been banded in [place]. Denies recent bleeding [facility] Medical History Hx of cirrhosis Anemia Chronic idiopathic thrombocytopenia HTN (hypertension) Diabetes Acid reflux Rectal bleeding Hemorrhoids Surgical History H/O umbilical hernia repair [place] teeth extracted Family History Other Diabetes Heart disease Social History household members: spouse housing: house Smoking Status: Never smoker alcohol intake: never substance use type: does not use ROS Constitutional Constitutional: Reports systems reviewed and no addt'l complaints, except as documented Eyes Eyes: Reports systems reviewed and no addt'l complaints, except as documented ENT HEENT: Reports systems reviewed and no addt'l complaints, except as documented Cardiovascular Cardiovascular: Reports systems reviewed and no addt'l complaints, except as documented Respiratory/Chest Respiratory/Chest: Reports systems reviewed and no addt'l complaints, except as documented Gastrointestinal Gastrointestinal: Reports systems reviewed and no addt'l complaints, except as documented Genitourinary Genitourinary: Reports systems reviewed and no addt'l complaints, except as documented Musculoskeletal Musculoskeletal: Reports systems reviewed and no addt'l complaints, except as documented Integumentary Integumentary: Reports systems reviewed and no addt'l complaints, except as documented Neurologic Neurologic: Reports systems reviewed and no addt'l complaints, except as documented Psychiatric Psychiatric: Reports systems reviewed and no addt'l complaints, except as documented Endocrine Endocrinology: Reports systems reviewed and no addt'l complaints, except as documented Hematologic/Lymphatic Hematologic/Lymphatic: Reports systems reviewed and no addt'l complaints, exceptas documented Allergic/Immunologic Allergic/Immunologic: Reports systems reviewed and no addt'l complaints, except as documented Intake Vital Signs 07/26/25 10:23 08/12/25 08:24 Height 5 ft 11 in 5 ft 11 in Weight: 146.085 kg BMI 44.9 BP 108/66 Blood Pressure Location Rt brachial Position Sitting Respiration 18 Pulse 78 Pulse Source Monitor Temp 98.5 F Temperature Source Temporal Artery Pulse Oximetry (%) 96 Oxygen Delivery Method room air Intake Is patient in pain?: Yes (right leg) Pain scale (1-10): 4 Allergies No Known Allergies Allergy (Verified 08/12/25 08:33) Medications ?Medication ?Instructions ?Recorded ?Confirmed ?Type metformin 1,000 mg tablet 1,000 mg PO BID diabetes 08/12/25 History sitagliptin phosphate 100 mg 100 mg PO QDAY diabetes 0 01/28/25 08/12/25 History tablet (Januvia) atorvastatin 20 mg tablet 20 mg PO DAILY cholesterol 0 07/21/25 08/12/25 History omeprazole 40 mg capsule,delayed 40 mg PO DAILY stomac h 07/21/25 08/12/25 History release repaglinide 1 mg tablet 1 mg PO BID diabetes 5 08/12/25 History CPAP - Continuous Positive Airway 07/23/25 08/12/25 H istory Pressure([facility] INFORMATIONAL USE ONLY) bumetanide 2 mg tablet 2 mg PO BID #60 tabs 5 08/12/25 Rx nadolol 20 mg tablet 20 mg PO BID #60 tabs 08/12/25 Rx oxycodone 5 mg tablet 5 mg PO Q6H PRN PRN Pain Sco re 07/26/25 08/12/25 Rx 6-10 or Pre PT/OT 7 days #30 tabs potassium chloride 20 mEq 20 meq PO DAILY #30 tabs 11/0708/12/25 Rx tablet,extended release(part/cryst) (Klor-Con M) spironolactone 25 mg tablet 25 mg PO DAILY #30 tabs 08/12/25 Rx Central Venous Access Central Venous Access: No Exam Physical Exam Const alert, oriented x3 and no apparent distress HEENT normocephalic, external ears normal and external nose normal Eyes Eyes Narrative: +jaundiced sclera Neck full ROM, no lymphadenopathy and supple Lymph Lymphatic: no lymphadenopathy noted Resp clear to auscultation bilaterally Cardio regular rate, regular rhythm, S1 normal heart sound, S2 normal heart sound and no murmurs GI normal to inspection, nondistended, normoactive bowel sounds Back/Spine thoracic and lumbar spine normal to inspection Extremity Extremity Narrative: +chronic stasis changes with hyperpigmentation. Skin no rashes or lesions noted Neuro oriented x3, CN's II-XII intact bilaterally and moves all extremities Psych mental status grossly normal Coding Level of Care Code Off vis,new,level 3 Exam Problem Focused Diagnoses Anemia, unspecified type D64.9 Anemia type: unspecified type Assessment and Plan Assessment and Plan (1) Anemia: Qualifiers: Anemia type: unspecified type Qualified Code(s): D64.9 - Anemia, unspecified Plan: To obtain Blood for anemia work up, stool for occult blood, UA. Obtain old records for review. RTC 2 weeks Orders: Orders CBC W/Diff, Automated Today D64.9 - Anemia, unspecified Retic Panel Count Today D64.9 - Anemia, unspecified Erythrocyte Sed Rate Today D64.9 - Anemia, unspecified CRP Today D64.9 - Anemia, unspecified Ferritin Today D64.9 - Anemia, unspecified Iron+Iron Binding Capacity Today D64.9 - Anemia, unspecified Haptoglobin Today D64.9 - Anemia, unspecified Comprehensive Metabolic Profil Today D64.9 - Anemia, unspecified Magnesium Today D64.9 - Anemia, unspecified Phosphorus Today D64.9 - Anemia, unspecified LDH Today D64.9 - Anemia, unspecified Prothrombin Time w/INR Today D64.9 - Anemia, unspecified Partial Thromboplast Time Today D64.9 - Anemia, unspecified Urinalysis, Complete Today D64.9 - Anemia, unspecified Stool Occult Blood iFOB 08/13/25 D64.9 - Anemia, unspecified 08/12/25 1646 D> Date _ León Mccray MD [facility] Signature: Date (if applicable) CC: Dr. Alis Duran MD ~ [facility]09-12-2025 [facility] Medical Records Department [address] [place] [id number] Discharge Summary 07/26/25 1438 MR#: [id number] Acct: [id number] Name: LEON RIDER Rep #: [id number] : 1980 45 From: Myriam Aguilar DO PCP: Dr. Alis Duran MD Status:DIS IN Location: [place] [address] Providers Date of Admission: 07/21/25 Date of Discharge: 07/26/25 Primary Care Physician: Alis Duran MD Reason For Visit: HF EXA, RLE CELLULITIS Diagnosis Discharge Diagnosis (1) Elevated lactic acid level: Status: Acute Code(s): R79.89 - Other specified abnormal findings of blood chemistry (2) Hx of cirrhosis: Status: Acute Code(s): Z87.19 - Personal history of other diseases of the digestive system (3) Serum total bilirubin elevated: Status: Acute Code(s): R17 - Unspecified jaundice (4) Cellulitis of right leg without foot: Status: Acute Code(s): L03.115 - Cellulitis of right lower limb (5) Anemia: Status: Acute Code(s): D64.9 - Anemia, unspecified (6) Acute on chronic heart failure with preserved ejection fraction: Status: Acute Code(s): I50.33 - Acute on chronic diastolic (congestive) heart failure Medications at Discharge Home Medications metformin 1,000 mg tablet 1,000 mg PO BID diabetes 01/28/25 sitagliptin phosphate 100 mg tablet (Januvia) 100 mg PO QDAY diabetes 01/28/25 atorvastatin 20 mg tablet 20 mg PO DAILY cholesterol 07/21/25 omeprazole 40 mg capsule,delayed release 40 mg PO DAILY stomach 07/21/25 repaglinide 1 mg tablet 1 mg PO BID diabetes 07/21/25 CPAP - Continuous Positive Airway Pressure([facility] IN[facility] USE ONLY) 07/23/25 bumetanide 2 mg tablet 2 mg PO BID #60 tabs 07/26/25 levofloxacin 750 mg tablet 750 mg PO DAILY #5 tabs 07/26/25 nadolol 20 mg tablet 20 mg PO BID #60 tabs 07/26/25 oxycodone 5 mg tablet 5 mg PO Q6H PRN PRN Pain Score 6-10 or Pre PT/OT 7 days #30 tabs 07/26/25 potassium chloride 20 mEq tablet,extended release(part/cryst) (Klor-Con M) 20 meq PO DAILY #30 tabs 07/26/25 spironolactone 25 mg tablet 25 mg PO DAILY #30 tabs 07/26/25 Hospital Course Procedures 2-D Echocardiogram, EKG and - Summary of Care Provided Minutes Spent on Discharge: 39 Hospital Course: Mr. Rider is a 45-year-old white male who presented to the emergency department at [facility] on 07/21/2025 with a chief complaint of chest pain. He has a history of metabolic associated liver disease and right leg pain with history of chronic venous stasis. He stated the night prior to presentation he developed some dull aching in his chest at about 8 PM that lasted for couple minutes and then he had to go work at the [employer]. He stated he returned home at about 9 PM and was having a bit of chest pain at that time but it resolved spontaneously. On the day of presentation he intermittently can seem to have that sensation and has been winded even putting his pants on. He reported that he for several months he has had exercise intolerance and dyspnea on exertion and worsening pain of his right lower extremity for about 2 to 3 days. Leg pain was reported to be dull ache and became stabbing with walking. Outpatient D-dimer was obtained elevated and the venous duplex was noted to be negative. Patient also complained about a week of symptoms of URI. Vital signs on presentation showed a temperature of 98.8, heart rate 106, respiratory 22, blood pressure 151/56 and sats were 96% on room air. CBC showed normal white count with very minimal left shift that not 70.4%. It a chronic anemia that was stable at 8.8. Coags were abnormal with a PT of 20.3, INR 1.7 and PTT of 39.4 consistent with his liver disease. Chemistry panel showed hyponatremia with a sodium of 127, serum bicarb of 17.8 with a normal anion gap. Normal serum creatinine 0.65 and a lactic acid of 3.2. Repeat lactic acid was 2.5 after treatment was instituted. Bilirubin was 3.2 and AST was mildly elevated at 42 with an ALT of 33. Troponin was normal with a delta and 4-hour troponin which were unremarkable as well. proBNP was 106. TSH was normal at 1.55. CTA of the chest was done given his elevated D-dimer and found to be negative for PE but showed mild interstitial edema and mild mediastinal adenopathy with cirrhosis. Abdominal ultrasound showed coarsened echotexture of the liver and splenomegaly with a very small amount of ascites in the right upper quadrant. With his right lower extremity cellulitis, he was placed on antibiotics. Adriana bandages were placed for his chronic swelling and an echocardiogram was obtained. He had no previous echocardiogram for comparison. He had LVH with mildly dilated LV, inferior hypokinesis, EF was 55% and he has stage I diastolic dysfunction. With nml trop and nml EKG, will refer to outpt cardiology f/u and consideration for stress testing. He was maintained on IV lasix and then transitioned to bumex due to his l (more content not included)... [facility]09-12-2025 Hospital Discharge instructionsAdditional Instructions 1. Please make an appointment follow-up with your primary care physician in 1 week and you will need to have a basic metabolic profile be ordered to check your potassium and kidney function 2. Please restrict your sodium to 3 to 4 g daily and restrict your fluid intake to 1.5 to 2 L daily 3. Please weigh yourself every morning with no close on and keep track of your weight. If you gain more than 2 to 3 pounds in a 24-hour period take an extra dose of Bumex (diuretic) 4. Please call cardiology and GI below on Tuesday to schedule outpatient follow-up Date of Discharge: 07/26/25[facility] Work Phone: 1(323) 340-209009-11-2025 Progress note Author Myriam Aguilar [facility] Note Date/Time July 25, 2025 5:19pm [facility] Medical Records Department [address] [place] [address] Progress Note - Hospitalist 07/25/25 1703 MR#: [id number] Acct: [id number] Name: LEON RIDER Rep #:[id number] : 1980 45 From: Myriam Aguilar DO PCP: Dr. Alis Duran MD Status:ADM IN Location: [place] [address] Reason for Visit Chief Complaint: Atypical chest pain about 2 times last night. Subjective Subjective Patient states overall he is about 50 to 60% better. His leg is inking machine tender. He is diuresing fairly well. Shortness of breath seems to be improving. Familyinquired about some rehab however he is doing too well with mobility to go anywhere for acute rehab or skilled facility at discharge but we did indicate wewould refer him to outpatient physical therapy at the time of discharge so he can ongoing therapy. Motivation seems to be a significant problem. Objective Data Objective Data Vital Signs: Vital Signs Temp Pulse Resp BP Pulse Ox O2 Del Method 98.3 F 98 14 124/47 H 95 Room Air 07/25/25 09:56 07/25/25 09:56 07/25/25 09:56 07/25/25 09:56 07/25/25 09:56 07/25/25 14:24 Oxygen Delivery Method Room Air Weight: 176.5 kg Body Mass Index (BMI) 54.2 Intake & Output: Intake and Output for Last 24 Hours 07/23/25 07/24/25 07/25/25 23:59 23:59 23:59 Intake Total 880 / 880 1730 / 1730 550 / 550 Output Total 1150 / 2250 2850 / 2850 300 / 300 Balance -270 / -1370 -1120 / -1120 250 / 250 Lab / Micro Data 07/25/25 08:35 07/25/25 08:35 Labs: Laboratory Results - last 24 hr 07/24/25 16:36: POC Glucose 230 H 07/24/25 22:17: POC Glucose 201 H 07/25/25 06:18: POC Glucose 149 H 07/25/25 08:35: WBC 6.1, RBC 3.06 L, Hgb 8.1 L, Hct 25.3 L, MCV 82.7, MCH 26.5 L, MCHC 32.0, RDW Std Deviation 69.5 H, RDW Coeff of Melina 24.4 H, Plt Count 133 L,MPV 9.4, Immature Gran % (Auto) 1.700 H, Neut % (Auto) 57.6, Lymph % (Auto) 15.0L, Sandoval % (Auto) 19.1 H, Eos % (Auto) 5.6 H, Baso % (Auto) 1.0, Absolute Neuts (auto) 3.5, Absolute Lymphs (auto) 0.91, Nucleated RBC % 0, Polychromasia 1+, Anisocytosis 3+, Ovalocytes 1+, Sodium 133, Potassium 3.6, Chloride 101, Carbon Dioxide 23.4, Anion Gap 9, BUN 8, Creatinine 0.58 L, Estim Creat Clear Calc 257.84 H, Est GFR (MDRD) Non-Af 121, BUN/Creatinine Ratio 14.3, Glucose 154 H, Calcium 7.5 L, Total Bilirubin 2.14 H, AST 40 H, ALT 25, Alkaline Phosphatase 103, Total Protein 6.3, Albumin 2.2 L, Globulin 4.2, Albumin/Globulin Ratio 0.5 L 07/25/25 11:56: POC Glucose 209 H Micro: Microbiology 07/21/25 10:25 Urine, Clean Catch Urine Culture - Final Streptococcus agalactiae (B) Mixed Gram Positive Organisms 07/21/25 09:15 Blood Culture (Wb) - Anticubital Left Blood Culture - Preliminary No growth in 48 hours. 07/21/25 09:15 Blood Culture (Wb) - Anticubital Left Blood Culture - Preliminary No growth in 48 hours. 07/21/25 09:38 Mucosa - Nose SARS-CoV-2, Influenza & RSV (PCR) - Final 07/21/25 10:25 Stool Stool Occult Blood (GIORGIO) - Final Rhythm Strip Rhythm Strip: Sinus Tach Rate: 101 Ectopy: None Physical Exam Const alert, oriented x3, no apparent distress and well nourished; Negative for average body habitus or healthy appearing Constitutional Narrative: Morbidly obese, white male, sitting up in bed, appears comfortable, affect is flat, is not toxic, appears much older than stated age HEENT head/scalp atraumatic and moist oral mucous membranes HEENT Narrative: Mallampati 3-4, no thrush Head and Scalp: normocephalic Resp normal respiratory effort, no retractions, no use of accessory muscles and clearto auscultation bilaterally Resp Narrative: Limited exam due to body habitus Auscultation: Negative for rales, rhonchi or wheezes Cardio regular rate, regular rhythm, S1 normal heart sound, S2 normal heart sound, no murmurs, no rub, no gallops and no clicks Cardio Narrative: Heart tones are distant due to body habitus GI normal to inspection, nondistended, normoactive bowel sounds, soft to palpation and non-tender GI Narrative: Large protuberant abdomen Extremity Extremity Narrative: Severe bilateral lower extremity edema that appears to be chronic, no significant cyanosis or clubbing, lower extremity wraps are in place for edema Skin Skin Narrative: Skin is slightly pale Neuro oriented x3, moves all extremities and no focal motor deficits Neuro Narrative: Generalized weakness noted no focal deficits Speech: speech normal Psych Psych Narrative: Affect is flat and mood seems somewhat depressed but patient did not interact and answer questions appropriately Assessment & Plan Assessment/Plan (1) Elevated lactic acid level: (2) Hx of cirrhosis: (3) Serum total bilirubin elevated: (4) Cellulitis of right leg without foot: (5) Anemia: (6) Acute on chronic heart failure with preserved ejection fraction: PLAN: Plan Acute on chronic heart failure with preserved ejection fraction secondary to diastolic dysfunction and suspected RV dysfunction - Echocardiogram shows mild wall motion abnormality inferiorly but a preserved EF - Will need outpatient follow-up and possible stress test once he is stable - Will continue diuretics but transition from Lasix to Bumex and due to hypoalbuminemia related to cirrhosis - Continue fluid restriction - Continue sodium restriction - continue daily weights - Dopplers negative for DVT -Continue lower extremity Adriana bandages - Will need cardiology follow-up at discharge Acute on chronic MASLD cirrhosis - Imaging showed perihepatic ascites and patient has thrombocytopenia and chronic anemia with hypoalbuminemia and elevated bilirubin - Will need outpatient follow-up with GI - Continue IV diuresis - Continue Aldactone - Continue diuretics but transition from Lasix to Bumex due to hypoalbuminemia Right lower extremity cellulitis - Slowly improving likely exacerbated by chronic edema and venous stasis - Recommend close follow-up at discharge - Will transition from doxycycline and ceftriaxone to Levaquin in preparation for discharge -->MRSA infection unlikely - Patient without leukocytosis or left shift so highly suspicious of venous stasis is the etiology for this Chronic anemia - Likely related to liver disease - Stable - Outpatient referral to gastroenterology 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 - Stable DM-2 - Continue Lantus 20 units daily -Fasting blood sugar 154 this morning - Continue Accu-Cheks - Cardiac/carb controlled diet with sodium restriction - SSI as ordered - A1c was 6.1 on presentation however this is falsely low most likely secondary to chronic anemia - Restart home oral medication regimen at discharge Chronic constipation - Continue home polyethylene glycol - Continue home senna/docusate Essential hypertension/hyperlipidemia - Currently on fairly aggressive diuresis and Aldactone - continue continue to monitor his blood pressure - Continue home statin GERD - Continue PPI Anal fissure - Patient has followed with general surgery prior - [facility] advised and avoidance of constipation with lidocaine suppository SAÚL - Continue home CPAP Morbid obesity - BMI 54.3 - Markedly complicates treatment, prognosis, outcomes - Recommend weight loss DVT prophylaxis - Start Lovenox SQ twice daily as platelet count is greater than 75,000 and anemia is stable - Monitor counts closely CODE STATUS - Full code Charges/Coding Visit Charges Inpatient E&M: 05877 Subs Hosp L2 07/25/25 2271 <Electronically signed by Myriam Aguilar DO> Cosigner Signature (if applicable): CC: ~ Signed [facility] Work Phone: 1(415) 145-799909-11-2025 Progress note [facility] Medical Records Department [address] [place] [address] Progress Note - Hospitalist 07/25/25 1703 MR#: [id number] Acct: [id number] Name: LEON RIDER Rep #:[id number] : 1980 45 From: Myriam Aguilar DO PCP: Dr. Alis Duran MD Status:ADM IN Location: [place] [address] Reason for Visit Chief Complaint: Atypical chest pain about 2 times last night. Subjective Subjective Patient states overall he is about 50 to 60% better. His leg is inking machine tender. He is diuresing fairly well. Shortness of breath seems to be improving. Familyinquired about some rehab however he is doing too well with mobility to go anywhere for acute rehab or skilled facility at discharge but we didindicate wewould refer him to outpatient physical therapy at the time of discharge so he can ongoing therapy. Motivation seems to be a significant problem. Objective Data Objective Data Vital Signs: Vital Signs Temp Pulse Resp BP Pulse Ox O2 Del Method 98.3 F 98 14 124/47 H 95 Room Air 07/25/25 09:56 07/25/25 09:56 07/25/25 09:56 07/25/25 09:56 07/25/25 09:56 07/25/25 14:24 Oxygen Delivery Method Room Air Weight: 176.5 kg Body Mass Index (BMI) 54.2 Intake & Output: Intake and Output for Last 24 Hours 07/23/25 07/24/25 07/25/25 23:59 23:59 23:59 Intake Total 880 / 880 1730 / 1730 550 / 550 Output Total 1150 / 2250 2850 / 2850 300 / 300 Balance -270 / -1370 -1120 / -1120 250 / 250 Lab / Micro Data 07/25/25 08:35 07/25/25 08:35 Labs: Laboratory Results - last 24 hr 07/24/25 16:36: POC Glucose 230 H 07/24/25 22:17: POC Glucose 201 H 07/25/25 06:18: POC Glucose 149 H 07/25/25 08:35: WBC 6.1, RBC 3.06 L, Hgb 8.1 L, Hct 25.3 L, MCV 82.7, MCH 26.5 L, MCHC 32.0, RDW Std Deviation 69.5 H, RDW Coeff of Melina 24.4 H, Plt Count 133 L,MPV 9.4, Immature Gran % (Auto) 1.700 H, Neut % (Auto) 57.6, Lymph % (Auto) 15.0L, Sandoval % (Auto) 19.1 H, Eos % (Auto) 5.6 H, Baso % (Auto) 1.0, Absolute Neuts (auto) 3.5, Absolute Lymphs (auto) 0.91, Nucleated RBC % 0, Polychromasia 1+, Anisocytosis 3+, Ovalocytes 1+, Sodium 133, Potassium 3.6, Chloride 101, Carbon Dioxide 23.4, Anion Gap 9, BUN 8, Creatinine 0.58 L, Estim Creat Clear Calc 257.84 H, Est GFR (MDRD) Non-Af 121, BUN/Creatinine Ratio 14.3, Glucose 154 H, Calcium 7.5 L, Total Bilirubin 2.14 H, AST 40 H, ALT 25, Alkaline Phosphatase 103, Total Protein 6.3, Albumin 2.2 L, Globulin 4.2, Albumin/Globulin Ratio 0.5 L 07/25/25 11:56: POC Glucose 209 H Micro: Microbiology 07/21/25 10:25 Urine, Clean Catch Urine Culture - Final Streptococcus agalactiae (B) Mixed Gram Positive Organisms 07/21/25 09:15 Blood Culture (Wb) - Anticubital Left Blood Culture - Preliminary No growth in 48 hours. 07/21/25 09:15 Blood Culture (Wb) - Anticubital Left Blood Culture - Preliminary No growth in 48 hours. 07/21/25 09:38 Mucosa - Nose SARS-CoV-2, Influenza & RSV (PCR) - Final 07/21/25 10:25 Stool Stool Occult Blood (GIORGIO) - Final Rhythm Strip Rhythm Strip: Sinus Tach Rate: 101 Ectopy: None Physical Exam Const alert, oriented x3, no apparent distress and well nourished; Negative for average body habitus or healthy appearing Constitutional Narrative: Morbidly obese, white male, sitting up in bed, appears comfortable, affect is flat, is not toxic, appears much older than stated age HEENT head/scalp atraumatic and moist oral mucous membranes HEENT Narrative: Mallampati 3-4, no thrush Head and Scalp: normocephalic Resp normal respiratory effort, no retractions, no use of accessory muscles and clearto auscultation bilaterally Resp Narrative: Limited exam due to body habitus Auscultation: Negative for rales, rhonchi or wheezes Cardio regular rate, regular rhythm, S1 normal heart sound, S2 normal heart sound, no murmurs, no rub, no gallops and no clicks Cardio Narrative: Heart tones are distant due to body habitus GI normal to inspection, nondistended, normoactive bowel sounds, soft to palpation and non-tender GI Narrative: Large protuberant abdomen Extremity Extremity Narrative: Severe bilateral lower extremity edema that appears to be chronic, no significant cyanosis or clubbing, lower extremity wraps are in place for edema Skin Skin Narrative: Skin is slightly pale Neuro oriented x3, moves all extremities and no focal motor deficits Neuro Narrative: Generalized weakness noted no focal deficits Speech: speech normal Psych Psych Narrative: Affect is flat and mood seems somewhat depressed but patient did not interact and answer questions appropriately Assessment & Plan Assessment/Plan (1) Elevated lactic acid level: (2) Hx of cirrhosis: (3) Serum total bilirubin elevated: (4) Cellulitis of right leg without foot: (5) Anemia: (6) Acute on chronic heart failure with preserved ejection fraction: PLAN: Plan Acute on chronic heart failure with preserved ejection fraction secondary to diastolic dysfunction and suspected RV dysfunction - Echocardiogram shows mild wall motion abnormality inferiorly but a preserved EF - Will need outpatient follow-up and possible stress test once he is stable - Will continue diuretics but transition from Lasix to Bumex and due to hypoalbuminemia related to cirrhosis - Continue fluid restriction - Continue sodium restriction - continue daily weights - Dopplers negative for DVT -Continue lower extremity Adriana bandages - Will need cardiology follow-up at discharge Acute on chronic MASLD cirrhosis - Imaging showed perihepatic ascites and patient has thrombocytopenia and chronic anemia with hypoalbuminemia and elevated bilirubin - Will need outpatient follow-up with GI - Continue IV diuresis - Continue Aldactone - Continue diuretics but transition from Lasix to Bumex due to hypoalbuminemia Right lower extremity cellulitis - Slowly improving likely exacerbated by chronic edema and venous stasis - Recommend close follow-up at discharge - Will transition from doxycycline and ceftriaxone to Levaquin in preparation for discharge -->MRSA infection unlikely - Patient without leukocytosis or left shift so highly suspicious of venous stasis is the etiology for this Chronic anemia - Likely related to liver disease - Stable - Outpatient referral to gastroenterology 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 - Stable DM-2 - Continue Lantus 20 units daily -Fasting blood sugar 154 this morning - Continue Accu-Cheks - Cardiac/carb controlled diet with sodium restriction - SSI as ordered - A1c was 6.1 on presentation however this is falsely low most likely secondary to chronic anemia - Restart home oral medication regimen at discharge Chronic constipation - Continue home polyethylene glycol - Continue home senna/docusate Essential hypertension/hyperlipidemia - Currently on fairly aggressive diuresis and Aldactone - continue continue to monitor his blood pressure - Continue home statin GERD - Continue PPI Anal fissure - Patient has followed with general surgery prior - [facility] advised and avoidance of constipation with lidocaine suppository SAÚL - Continue home CPAP Morbid obesity - BMI 54.3 - Markedly complicates treatment, prognosis, outcomes - Recommend weight loss DVT prophylaxis - Start Lovenox SQ twice daily as platelet count is greater than 75,000 and anemia is stable - Monitor counts closely CODE STATUS - Full code Charges/Coding Visit Charges Inpatient E&M: 52837 Subs Hosp L2 07/25/25 1719 Cosigner Signature (if applicable): CC: ~ Signed [facility]09-10-2025 Progress note Author Timoteo Cooper [facility] Note Date/Time July 24, 2025 12:38pm [facility] Medical Records Department [address] [place] [id number] Progress Note - Hospitalist 07/24/25 1232 MR#: [id number] Acct: [id number] Name: LEON RIDER Rep #:[id number] : 1980 45 From: Timoteo Mccarthy PCP: Dr. Alis Duran MD Status:ADM IN Location: [place] [address] Reason for Visit Chief Complaint: Atypical chest pain about 2 times last night. Objective Data Objective Data Vital Signs: Vital Signs Temp Pulse Resp BP Pulse Ox O2 Del Method 98.7 F 91 14 137/63 H 96 CPAP 07/24/25 09:00 07/24/25 09:00 07/24/25 09:00 07/24/25 09:00 07/24/25 09:00 07/24/25 09:00 Oxygen Delivery Method CPAP Weight: 389 lb 1.854 oz Body Mass Index (BMI) 54.2 Intake & Output: Intake and Output for Last 24 Hours 07/22/25 07/23/25 07/24/25 23:59 23:59 23:59 Intake Total 1360 / 1360 880 / 880 530 / 530 Output Total 1850 / 2200 1150 / 2250 1900 / 1900 Balance -490 / -840 -270 / -1370 -1370 / -1370 Lab / Micro Data 07/24/25 05:12 07/24/25 05:12 Labs: Laboratory Results - last 24 hr 07/23/25 04:51: Iron 152, TIBC 267, Iron Saturation 57.0 H, Unsaturated IBC 115 L, Ferritin 104, Vitamin B12 1344 H 07/23/25 10:16: Serum Folate 10.50 07/23/25 16:51: POC Glucose 228 H 07/23/25 20:57: POC Glucose 190 H 07/24/25 05:12: WBC 8.0, RBC 2.99 L, Hgb 7.8 L, Hct 24.4 L, MCV 81.6, MCH 26.1 L, MCHC 32.0, RDW Std Deviation 66.8 H, RDW Coeff of Melina 23.8 H, Plt Count 130 L,MPV 9.9, Immature Gran % (Auto) 2.500 H, Neut % (Auto) 60.8, Lymph % (Auto) 14.1L, Sandoval % (Auto) 16.9 H, Eos % (Auto) 5.1 H, Baso % (Auto) 0.6, Absolute Neuts (auto) 4.9, Absolute Lymphs (auto) 1.13, Nucleated RBC % 0, Differential CommentSCANNED, Platelet Estimate SLT DEC, Polychromasia 1+, Basophilic Stippling 1+, Anisocytosis 2+, Acanthocytes (Spur) RARE, Sodium 131 L, Potassium 3.7, [id number], Carbon Dioxide 23.7, Anion Gap 8, BUN 9, Creatinine 0.64 L, Estim Creat Clear Calc 233.67, Est GFR (MDRD) Non-Af 117, BUN/Creatinine Ratio 13.5, [id number] H, Calcium 7.5 L, Total Bilirubin 2.01 H, AST 41 H, ALT 24, Alkaline Phosphatase 110, Total Protein 6.2, Albumin 2.2 L, Globulin 4.0, Albumin/Globulin Ratio 0.6 L 07/24/25 06:30: POC Glucose 133 H 07/24/25 11:00: POC Glucose 137 H Micro: Microbiology 07/21/25 10:25 Urine, Clean Catch Urine Culture - Preliminary Streptococcus agalactiae (B) Mixed Gram Positive Organisms 07/21/25 09:15 Blood Culture (Wb) - Anticubital Left Blood Culture - Preliminary No growth in 48 hours. 07/21/25 09:15 Blood Culture (Wb) - Anticubital Left Blood Culture - Preliminary No growth in 48 hours. 07/21/25 09:38 Mucosa - Nose SARS-CoV-2, Influenza & RSV (PCR) - Final 07/21/25 10:25 Stool Stool Occult Blood (GIORGIO) - Final Radiography Diagnostic Testing: Radiology Impression Abdomen Ultrasound 07/23/25 15:08 IMPRESSION: Coarsened echotexture of the liver. Splenomegaly. Small amount of ascites seen in the right upper quadrant. Reading Location: [id number] Rhythm Strip Rhythm Strip: Sinus Tach Rate: 101 Ectopy: None Physical Exam Narrative Seen and examined I talked to the patient's on the phone today. Patient had right upper quadrant sonogram. Leg pain is better about 4-6/10 in intensity. Small tender on pressing Shortness of breath is improved. Significant right leg swelling. Complain of right leg pain. Physical exam: General: Alert, Oriented x3, Cooperative. Morbid obesity BMI 54.2 kg/m? HEENT: Atraumatic, PERRLA, EOMI, Normocephalic. Oral: Deep oropharyngeal history could not be visualized Neck: Supple, No JVD, Negative Carotid Bruits Chest wall/Lungs: Air entry severely diminished in bilateral lung bases. No crepitation Cardiovascular: Regular rate and rhythm, Normal S1,S2, No M/G/R Abdomen: Bowel Sounds Present, Soft, Non Tender, Non-Distended : No dysuria. No renal angle tenderness. No suprapubic tenderness. Extremities: No edema, Capillary Refill Less than 3 Seconds Skin: Redness/erythema present over right calf area is better Musculoskeletal: Tenderness in right calf. Bilateral lower extremity lymphedemachronic. ROM restricted over knees and hip joints Neurological: Cranial nerves II-XII grossly intact, DTR 2+/4. No acute focal neurological deficit. Psych/Mental Status: Flat affect Assessment & Plan Assessment/Plan (1) Cellulitis: QUALIFIERS: Site of cellulitis: extremity Site of cellulitis of extremity: lower extremity Laterality: right Qualified Code(s): L03.115 - Cellulitis of right lower limb (2) Chest pain, atypical: PLAN: Plan This is 45-year-old gentleman admitted with chest pain last night and several weeks of shortness of breath yesterday 1. Atypical chest pain and SOB probably due to heart failure exacerbation: Patient is being admitted in PCU. First troponin 8, second pending. proBNP 106but may be falsely normal/low due to morbid obesity. Chest CTA negative for pulmonary embolism and earlier venous duplex were negative for acute DVT. It shows mild/trivial edema, mild mediastinal adenopathy and cirrhosis. Lactic acid elevated probably due to ineffective circulation/venous congestion. Started on furosemide 40 mg IV twice daily. ED physician ordered 1 L normal saline bolus. Heart failure core measures including intake and output, fluid restriction less than 1500 mL, daily weight monitoring, kidney and electrolytes monitoring. 2D echo ordered for tomorrow a.m. Twelve-lead EKG sinus tachycardia 101 bpm, QTc 479 ms. No previous EKG to compare. 07/22: 2D echo reviewed shows mild concentric LVH, mildly dilated LV, inferior hypokinesis EF 55%, stage I diastolic function. Acute HFpEF. Normal RV and both left and right atria. Mild MR. Mean peak gradient 8 mmHg but not reportedaortic stenosis. Mildly thickened aortic valve leaflets. Continue diuresis as mentioned above. 07/23: Continue diuresis. 07/24: Discussed about the follow-up with spinner continuous for heart failure and further prognosis depends on the medication compliance and natural history of the disease. 2. RLE cellulitis with bilateral chronic venous hypertension and lymphedema: Right lower leg is tender and edematous slightly more than LLE. Venous duplex of right lower extremity negative for acute DVT. It shows valvular competence possible deep venous system. Started on IV ceftriaxone after patient got IV cefazolin in the ED. No open wound to culture. 07/22: Discussed the patient about the DVT prophylaxis with high risk of DVT but patient also high risk of bleeding with severe anemia and thrombocytopenia, and coagulopathy with INR 1.7. IV iron ordered for severe anemia. May consider low- dose anticoagulant later on when anemia is better. 07/23: Patient stated that his pain is better. Probably antibiotic working 3. Decompensated MASLD cirrhosis with mild perihepatic ascites, thrombocytopenia and hypotonic hypervolemic hyponatremia: Albumin 2.5, platelet count 112K. T. bili 3.82, AST 42. ALT normal. Right upper quadrant sonogram ordered. 07/23: Total bilirubin 2.12. INR 1.6. Transaminases normal. Alkaline phosphatase normal. 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 She has to find a new one. RUQ sonogram shows coarsened hepatic echotexture, nodular contour suggestive of cirrhosis. Mild perihepatic ascites. GB no stones sludgewall thickening or tenderness. CBD 4 mm. Splenomegaly, spleen 16.4 cm. Overall consistent with decompensated cirrhosis. Total bilirubin 2.01. AST ALTimproving. 4. DM type II: Glucose is elevated 168. Patient on multiple oral antidiabetic medications which are held. Started on Lantus 10 units p.o. daily. Accu-Chek before meals and at bedtime with Humalog sliding scale coverage and hypoglycemia protocol. 07/23: Glucoses 129-226. Lantus dose increased 5. Hypertension: Blood pressure is in normal range though it was elevated in the ED. 6. Acute severe anemia on chronic normocytic normochromic and thrombocytopenia present on admission: H&H 8.8/26.8% on admission. Last hemoglobin 10.4 in June 2024. Dropped to 7.5 g%. MCV normal, MCH low. RDW elevated. Probably iron deficiency anemia. Anemia workup ordered. Reticulocyte count high 3.89, immature reticulocyte fraction 38.5 therefore bone marrow responsive to anemia. Folate normal. 07/24: Iron profile suggestive of anemia of chronic disease with elevated iron saturation 57%, iron 152, ferritin 104, B12 03/26/1946. Therefore iron was not given as it might worsen ferritin deposition in the liver/worsening of stenosis. Other comorbidities include GERD, anal fissure/hemorrhoid: On PPI. Continue PPI. Saw Dr. Lorie Willson for anal fissure and was advised sitz bath, diltiazem and lidocaine suppository and avoid constipation. 7. Morbid obesity with obstructive sleep apnea/possible obesity hypoventilationsyndrome: Patient uses CPAP at home, continue Living will/advanced directive/end of life care: Patient does not have living will or advanced directive. His is next of kin. After discussion of benefits/risks procedures involved with full code, DNR CC arrest and DNR CC, the patient opted for full code. Patient does want artificial life support including intubation, tube feed, ventilator and/chest compression, central venous catheter, vasopressor and DC shock if needed Total time spent in [id number] encounter in discussion of advanced directive 17 minutes. Microbiology Past 72 Hours 07/21/25 10:25 Urine, Clean Catch Urine Culture - Preliminary Streptococcus agalactiae (B) Mixed Gram Positive Organisms 07/21/25 09:15 Blood Culture (Wb) - Anticubital Left Blood Culture - Preliminary No growth in 48 hours. 07/21/25 09:15 Blood Culture (Wb) - Anticubital Left Blood Culture - Preliminary No growth in 48 hours. 07/21/25 09:38 Mucosa - Nose SARS-CoV-2, Influenza & RSV (PCR) - Final 07/21/25 10:25 Stool Stool Occult Blood (GIORGIO) - Final Laboratory Results 07/23/25 04:51: Iron 152, TIBC 267, Iron Saturation 57.0 H, Unsaturated IBC 115 L, Ferritin 104, Vitamin B12 1344 H 07/23/25 10:16: Serum Folate 10.50 07/23/25 16:51: POC Glucose 228 H 07/23/25 20:57: POC Glucose 190 H 07/24/25 05:12: WBC 8.0, RBC 2.99 L, Hgb 7.8 L, Hct 24.4 L, MCV 81.6, MCH 26.1 L, MCHC 32.0, RDW Std Deviation 66.8 H, RDW Coeff of Melina 23.8 H, Plt Count 130 L,MPV 9.9, Immature Gran % (Auto) 2.500 H, Neut % (Auto) 60.8, Lymph % (Auto) 14.1L, Sandoval % (Auto) 16.9 H, Eos % (Auto) 5.1 H, Baso % (Auto) 0.6, Absolute Neuts (auto) 4.9, Absolute Lymphs (auto) 1.13, Nucleated RBC % 0, Differential CommentSCANNED, Platelet Estimate SLT DEC, Polychromasia 1+, Basophilic Stippling 1+, Anisocytosis 2+, Acanthocytes (Spur) RARE, Sodium 131 L, Potassium 3.7, [id number], Carbon Dioxide 23.7, Anion Gap 8, BUN 9, Creatinine 0.64 L, Estim Creat Clear Calc 233.67, Est GFR (MDRD) Non-Af 117, BUN/Creatinine Ratio 13.5, [id number] H, Calcium 7.5 L, Total Bilirubin 2.01 H, AST 41 H, ALT 24, Alkaline Phosphatase 110, Total Protein 6.2, Albumin 2.2 L, Globulin 4.0, Albumin/Globulin Ratio 0.6 L 07/24/25 06:30: POC Glucose 133 H 07/24/25 11:00: POC Glucose 137 H Clinical Impression(s) from Imaging Studies Chest CTA 07/21/25 09:27 IMPRESSION: Negative for pulmonary embolus.. Mild interstitial edema. Mild mediastinal adenopathy. Cirrhosis. Reading Location: [facility] Echocardiogram 07/22/25 05:55 Interpretation Summary Mild concentric left ventricular hypertrophy. Mildly dilated left ventricle. Mild (1+) posteriorly directed mitral valve insufficiency. Trileaflet aortic valve. Mildly thickened leaflets. Mean peak gradient 8 mmHg. The study was technically difficult. Inferior hypokinesis. Estimated LVEF 55%. Stage I diastolic dysfunction. Ordering Physician: Timoteo Cooper Referring Physician: ALIS DURAN Performed By: Jessica Wright RCS Abdomen Ultrasound 07/23/25 15:08 IMPRESSION: Coarsened echotexture of the liver. Splenomegaly. Small amount of ascites seen in the right upper quadrant. Reading Location: [id number] Charges/Coding Visit Charges Inpatient E&M: 96582 Subs Hosp L2 07/24/25 1238 <Electronically signed by Timoteo Cooper MD> Cosigner Signature (if applicable): CC: ~ Signed ADDENDUM by Dr. Timoteo Cooper MD on 07/24/25 at 1238 Addendum Doxycycline added. 07/24/25 1238<Electronically signed by Timoteo Cooper MD> Cosigner Signature (if applicable): cc: ~* Signed [facility] Work Phone: [phone] 990-468409-10-2025 Progress note [facility] Medical Records Department [address] [place] [address] Progress Note - Hospitalist 07/24/25 1232 MR#: [id number] Acct: [id number] Name: LEON RIDER Rep #:[id number] : 1980 45 From: Timoteo Mccarthy PCP: Dr. Alis Duran MD Status:ADM IN Location: [place] [address] Reason for Visit Chief Complaint: Atypical chest pain about 2 times last night. Objective Data Objective Data Vital Signs: Vital Signs Temp Pulse Resp BP Pulse Ox O2 Del Method 98.7 F 91 14 137/63 H 96 CPAP 07/24/25 09:00 07/24/25 09:00 07/24/25 09:00 07/24/25 09:00 07/24/25 09:00 07/24/25 09:00 Oxygen Delivery Method CPAP Weight: 389 lb 1.854 oz Body Mass Index (BMI) 54.2 Intake & Output: Intake and Output for Last 24 Hours 07/22/25 07/23/25 07/24/25 23:59 23:59 23:59 Intake Total 1360 / 1360 880 / 880 530 / 530 Output Total 1850 / 2200 1150 / 2250 1900 / 1900 Balance -490 / -840 -270 / -1370 -1370 / -1370 Lab / Micro Data 07/24/25 05:12 07/24/25 05:12 Labs: Laboratory Results - last 24 hr 07/23/25 04:51: Iron 152, TIBC 267, Iron Saturation 57.0 H, Unsaturated IBC 115 L, Ferritin 104, Vitamin B12 1344 H 07/23/25 10:16: Serum Folate 10.50 07/23/25 16:51: POC Glucose 228 H 07/23/25 20:57: POC Glucose 190 H 07/24/25 05:12: WBC 8.0, RBC 2.99 L, Hgb 7.8 L, Hct 24.4 L, MCV 81.6, MCH 26.1 L, MCHC 32.0, RDW Std Deviation 66.8 H, RDW Coeff of Melina 23.8 H, Plt Count 130 L,MPV 9.9, Immature Gran % (Auto) 2.500 H, Neut % (Auto) 60.8, Lymph % (Auto) 14.1L, Sandoval % (Auto) 16.9 H, Eos % (Auto) 5.1 H, Baso % (Auto) 0.6, Absolute Neuts (auto) 4.9, Absolute Lymphs (auto) 1.13, Nucleated RBC % 0, Differential CommentSCANNED, Platelet Estimate SLT DEC, Polychromasia 1+, Basophilic Stippling 1+, Anisocytosis 2+, Acanthocytes (Spur) RARE, Sodium 131 L, Potassium 3.7, [id number], Carbon Dioxide 23.7, Anion Gap 8, BUN 9, Creatinine 0.64 L, Estim Creat Clear Calc 233.67, Est GFR (MDRD) Non-Af 117, BUN/Creatinine Ratio 13.5, [id number] H, Calcium 7.5 L, Total Bilirubin 2.01 H, AST 41 H, ALT 24, Alkaline [id number], Total Protein 6.2, Albumin 2.2 L, Globulin 4.0, Albumin/Globulin Ratio 0.6 L 07/24/25 06:30: POC Glucose 133 H 07/24/25 11:00: POC Glucose 137 H Micro: Microbiology 07/21/25 10:25 Urine, Clean Catch Urine Culture - Preliminary Streptococcus agalactiae (B) Mixed Gram Positive Organisms 07/21/25 09:15 Blood Culture (Wb) - Anticubital Left Blood Culture - Preliminary No growth in 48 hours. 07/21/25 09:15 Blood Culture (Wb) - Anticubital Left Blood Culture - Preliminary No growth in 48 hours. 07/21/25 09:38 Mucosa - Nose SARS-CoV-2, Influenza & RSV (PCR) - Final 07/21/25 10:25 Stool Stool Occult Blood (GIORGIO) - Final Radiography Diagnostic Testing: Radiology Impression Abdomen Ultrasound 07/23/25 15:08 IMPRESSION: Coarsened echotexture of the liver. Splenomegaly. Small amount of ascites seen in the right upper quadrant. Reading Location: [id number] Rhythm Strip Rhythm Strip: Sinus Tach Rate: 101 Ectopy: None Physical Exam Narrative Seen and examined I talked to the patient's on the phone today. Patient had right upper quadrant sonogram. Leg pain is better about 4-6/10 in intensity. Small tender on pressing Shortness of breath is improved. Significant right leg swelling. Complain of right leg pain. Physical exam: General: Alert, Oriented x3, Cooperative. Morbid obesity BMI 54.2 kg/m? HEENT: Atraumatic, PERRLA, EOMI, Normocephalic. Oral: Deep oropharyngeal history could not be visualized Neck: Supple, No JVD, Negative Carotid Bruits Chest wall/Lungs: Air entry severely diminished in bilateral lung bases. No crepitation Cardiovascular: Regular rate and rhythm, Normal S1,S2, No M/G/R Abdomen: Bowel Sounds Present, Soft, Non Tender, Non-Distended : No dysuria. No renal angle tenderness. No suprapubic tenderness. Extremities: No edema, Capillary Refill Less than 3 Seconds Skin: Redness/erythema present over right calf area is better Musculoskeletal: Tenderness in right calf. Bilateral lower extremity lymphedemachronic. ROM restricted over knees and hip joints Neurological: Cranial nerves II-XII grossly intact, DTR 2+/4. No acute focal neurological deficit. Psych/Mental Status: Flat affect Assessment & Plan Assessment/Plan (1) Cellulitis: QUALIFIERS: Site of cellulitis: extremity Site of cellulitis of extremity: lower extremity Laterality: right Qualified Code(s): L03.115 - Cellulitis of right lower limb (2) Chest pain, atypical: PLAN: Plan This is 45-year-old gentleman admitted with chest pain last night and several weeks of shortness ofbreath yesterday 1. Atypical chest pain and SOB probably due to heart failure exacerbation: Patient is being admitted in PCU. First troponin 8, second pending. proBNP 106but may be falsely normal/low due to morbid obesity. Chest CTA negative for pulmonary embolism and earlier venous duplex were negative for acute DVT. It shows mild/trivial edema, mild mediastinal adenopathy and cirrhosis. Lactic acid elevated probably due to ineffective circulation/venous congestion. Started on furosemide 40 mg IV twice daily. ED physician ordered 1 L normal saline bolus. Heart failure core measures including intake and output, fluid restriction less than 1500 mL, daily weight monitoring, kidney and electrolytes monitoring.2D echo ordered for tomorrow a.m. Twelve-lead EKG sinus tachycardia 101 bpm, QTc 479 ms. No previous EKG to compare. 07/22: 2D echo reviewed shows mild concentric LVH, mildly dilated LV, inferior hypokinesis EF 55%, stage I diastolic function. Acute HFpEF. Normal RV and both left and right atria. Mild MR. Mean peak gradient 8 mmHg but not reportedaortic stenosis. Mildly thickened aortic valve leaflets. Continue diuresis as mentioned above. 07/23: Continue diuresis. 07/24: Discussed about the follow-up with spinner continuous for heart failure and further prognosis depends on the medication compliance and natural history of the disease. 2. RLE cellulitis with bilateral chronic venous hypertension and lymphedema: Right lower leg is tender and edematous slightly more than LLE. Venous duplex of right lower extremity negative for acute DVT. It shows valvular competence possible deep venous system. Started on IV ceftriaxone after patient got IV cefazolin in the ED. No open wound to culture. 07/22: Discussed the patient about the DVT prophylaxis with high risk of DVT but patient also high risk of bleeding with severe anemia and thrombocytopenia, and coagulopathy with INR 1.7. IV iron ordered for severe anemia. May consider low- dose anticoagulant later on when anemia is better. 07/23: Patient stated that his pain is better. Probably antibiotic working 3. Decompensated MASLD cirrhosis with mild perihepatic ascites, thrombocytopenia and hypotonic hypervolemic hyponatremia: Albumin 2.5, platelet count 112K. T. bili 3.82, AST 42. ALT normal. Right upper quadrant sonogram ordered. 07/23: Total bilirubin 2.12. INR 1.6. Transaminases normal. Alkaline phosphatase normal. 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 She has to find a new one. RUQ sonogram shows coarsened hepatic echotexture, nodular contour suggestive of cirrhosis. Mild perihepatic ascites. GB no stones sludgewall thickening or tenderness. CBD 4 mm. Splenomegaly, spleen 16.4 cm. Overall consistent with decompensated cirrhosis. Total bilirubin 2.01. AST ALTimproving. 4. DM type II: Glucose is elevated 168. Patient on multiple oral antidiabetic medications which areheld. Started on Lantus 10 units p.o. daily. Accu-Chek before meals and at bedtime with Humalog sliding scale coverage and hypoglycemia protocol. 07/23: Glucoses 129-226. Lantus dose increased 5. Hypertension: Blood pressure is in normal range though it was elevated in the ED. 6. Acute severe anemia on chronic normocytic normochromic and thrombocytopenia present on admission: H&H 8.8/26.8% on admission. Last hemoglobin 10.4 in June 2024. Dropped to 7.5 g%. MCV normal, MCH low. RDW elevated. Probably iron deficiency anemia. Anemia workup ordered. Reticulocyte count high 3.89, immature reticulocyte fraction 38.5 therefore bone marrow responsive to anemia. Folate normal. 07/24: Iron profile suggestive of anemia of chronic disease with elevated iron saturation 57%, iron 152, ferritin 104, B12 03/26/1946. Therefore iron was not given as it might worsen ferritin deposition in the liver/worsening of stenosis. Other comorbidities include GERD, anal fissure/hemorrhoid: On PPI. Continue PPI. Saw Dr. Lorie Willson for anal fissure and was advised sitz bath, diltiazem and lidocaine suppository and avoid constipation. 7. Morbid obesity with obstructive sleep apnea/possible obesity hypoventilationsyndrome: Patient uses CPAP at home, continue Living will/advanced directive/end of life care: Patient does not have living will or advanced directive. His is next of kin. After discussion of benefits/risks procedures involved with full code, DNR CC arrest and DNR CC, the patient opted for full code. Patient does want artificial life support including intubation, tube feed, ventilator and/chest compression, central venous catheter, vasopressor and DC shock if needed Total time spent in yjkj-cm-dgyo encounter in discussion of advanced directive 17 minutes. Microbiology Past 72 Hours 07/21/25 10:25 Urine, Clean Catch Urine Culture - Preliminary Streptococcus agalactiae (B) Mixed Gram Positive Organisms 07/21/25 09:15 Blood Culture (Wb) - Anticubital Left Blood Culture - Preliminary No growth in 48 hours. 07/21/25 09:15 Blood Culture (Wb) - Anticubital Left Blood Culture - Preliminary No growth in 48 hours. 07/21/25 09:38 Mucosa - Nose SARS-CoV-2, Influenza & RSV (PCR) - Final 07/21/25 10:25 Stool Stool Occult Blood (GIORGIO) - Final Laboratory Results 07/23/25 04:51: Iron 152, TIBC 267, Iron Saturation 57.0 H, Unsaturated IBC 115 L, Ferritin 104, Vitamin B12 1344 H 07/23/25 10:16: Serum Folate 10.50 07/23/25 16:51: POC Glucose 228 H 07/23/25 20:57: POC Glucose 190 H 07/24/25 05:12: WBC 8.0, RBC 2.99 L, Hgb 7.8 L, Hct 24.4 L, MCV 81.6, MCH 26.1 L, MCHC 32.0, RDW Std Deviation 66.8 H, RDW Coeff of Melina 23.8 H, Plt Count 130 L,MPV 9.9, Immature Gran % (Auto) 2.500 H, Neut % (Auto) 60.8, Lymph % (Auto) 14.1L, Sandoval % (Auto) 16.9 H, Eos % (Auto) 5.1 H, Baso % (Auto) 0.6, Absolute Neuts (auto) 4.9, Absolute Lymphs (auto) 1.13, Nucleated RBC % 0, Differential CommentSCANNED, Platelet Estimate SLT DEC, Polychromasia 1+, Basophilic Stippling 1+, Anisocytosis 2+, Acanthocytes (Spur) RARE, Sodium 131 L, Potassium 3.7, [id number], Carbon Dioxide 23.7, Anion Gap 8, BUN 9, Creatinine 0.64 L, Estim Creat Clear Calc 233.67, Est GFR (MDRD) Non-Af 117, BUN/Creatinine Ratio 13.5, [id number] H, Calcium 7.5 L, Total Bilirubin 2.01 H, AST 41 H, ALT 24, Alkaline [id number], Total Protein 6.2, Albumin 2.2 L, Globulin 4.0, Albumin/Globulin Ratio 0.6 L 07/24/25 06:30: POC Glucose 133 H 07/24/25 11:00: POC Glucose 137 H Clinical Impression(s) from Imaging Studies Chest CTA 07/21/25 09:27 IMPRESSION: Negative for pulmonary embolus.. Mild interstitial edema. Mild mediastinal adenopathy. Cirrhosis. Reading Location: [id number] Echocardiogram 07/22/25 05:55 Interpretation Summary Mild concentric left ventricular hypertrophy. Mildly dilated left ventricle. Mild (1+) posteriorly directed mitral valve insufficiency. Trileaflet aortic valve. Mildly thickened leaflets. Mean peak gradient 8 mmHg. The study was technically difficult. Inferior hypokinesis. Estimated LVEF 55%. Stage I diastolic dysfunction. Ordering Physician: Timoteo Cooper Referring Physician: ALIS DURAN Performed By: Jessica Wright RCS Abdomen Ultrasound 07/23/25 15:08 IMPRESSION: Coarsened echotexture of the liver. Splenomegaly. Small amount of ascites seen in the right upper quadrant. Reading Location: [facility] Charges/Coding Visit Charges Inpatient E&M: 69369 Subs Hosp L2 07/24/25 1238 Cosigner Signature (if applicable): CC: ~ Signed ADDENDUM by Dr. Timoteo Cooper MD on 07/24/25 at 1238 Addendum Doxycycline added. 07/24/25 1238 Cosigner Signature (if applicable): cc: ~* Signed [facility]09-10-2025 Radiology Diagnostic study note [facility] Imaging Services [address] [place], [place] [id number] Abdomen Limited MR#: [id number] Acct: [id number] Name: LEON RIDER Rep #: [id number] : 1980 M 45 From: Roberto Angel MD PCP: Dr. Alis Duran MD Status: ADM IN Study:Abdomen Limited Date of Exam: 08/08 Exam# [id number] Ordering Dr: Irlanda Cooper MD PROCEDURE: ABDOMEN LIMITED 07/24/2025 REASON FOR EXAM: CIRRHOSIS, MILD ASCITES, POSSIBLE VARICES TECHNIQUE: Procedure Code: USABDL Modality: US Procedure: ABDOMEN LIMITED COMPARISON: None FINDINGS: Liver: Coarsened hepatic echotexture with a nodular liver contour suggestive of cirrhosis. Liver measures 16.3 cm. Gallbladder: No stones, sludge, wall thickening or tenderness. Common bile duct: Normal measuring 4 mm. . Pancreas: Visualized portions are unremarkable. The distal body and tail are obscured by bowel gas. Other: The right kidney is unremarkable. Splenomegaly. The spleen measures 16.4 cm x 6.2 cm 6.7 cm. Small amount of ascites seen in the right upper quadrant. US/Abdomen Limited IMPRESSION: Coarsened echotexture of the liver. Splenomegaly. Small amount of ascites seen in the right upper quadrant. Reading Location: [facility] CC: Dr. Alis Duran MD; Dr. Timoteo Cooper MD ~ Banking Representative: Signed [facility]09-09-2025 Progress note Author Timoteo Cooper [facility] Note Date/Time July 23, 2025 3:12pm [facility] Medical Records Department [address] [place] [address] Progress Note - Hospitalist 07/23/25 0932 MR#: [id number] Acct: [id number] Name: LEON RIDER Rep #:[id number] : 1980 45 From: Timoteo Mccarthy PCP: Dr. Alis Duran MD Status:ADM IN Location: [place] [address] Reason for Visit Chief Complaint: Atypical chest pain about 2 times last night. Objective Data Objective Data Vital Signs: Vital Signs Temp Pulse Resp BP Pulse Ox O2 Del Method 98.5 F 91 18 133/60 H 95 Room Air 07/23/25 03:50 07/23/25 03:50 07/23/25 03:50 07/23/25 03:50 07/23/25 07:58 07/23/25 07:58 Oxygen Delivery Method Room Air Weight: 391 lb 1.601 oz Body Mass Index (BMI) 54.5 Intake & Output: Intake and Output for Last 24 Hours 07/21/25 07/22/25 07/23/25 23:59 23:59 23:59 Intake Total 1810 / 1810 1360 / 1360 Output Total 300 / 300 1850 / 2200 850 / 850 Balance 1510 / 1510 -490 / -840 -850 / -850 Lab / Micro Data 07/23/25 04:51 07/23/25 04:51 Labs: Laboratory Results - last 24 hr 07/22/25 11:30: POC Glucose 214 H 07/22/25 17:05: POC Glucose 236 H 07/22/25 23:09: POC Glucose 194 H 07/23/25 04:51: WBC 9.1, RBC 2.90 L, Hgb 7.5 L, Hct 23.5 L, MCV 81.0, MCH 25.9 L, MCHC 31.9 L, RDW Std Deviation 65.4 H, RDW Coeff of Melina 22.9 H, Plt Count 109 L, MPV 9.9, Immature Gran % (Auto) 1.300 H, Neut % (Auto) 64.2, Lymph % (Auto) 14.9 L, Sandoval % (Auto) 16.2 H, Eos % (Auto) 2.9, Baso % (Auto) 0.5, Absolute Neuts (auto) 5.9, Absolute Lymphs (auto) 1.36, Nucleated RBC % 0, Anisocytosis 1+, PT 19.8 H, INR 1.6, Sodium 132 L, Potassium 3.8, Chloride 101, Carbon Dioxide 21.7, Anion Gap 9, BUN 9, Creatinine 0.70, Estim Creat Clear Calc 212.39, Est GFR (MDRD) Non-Af 114, BUN/Creatinine Ratio 12.8, Glucose 154 H, Calcium 7.5 L, Total Bilirubin 2.12 H, AST 36, ALT 24, Alkaline Phosphatase 126, Total Protein 5.7 L, Albumin 2.1 L, Globulin 3.6, Albumin/Globulin Ratio 0.6 L 07/23/25 06:38: POC Glucose 129 H Micro: Microbiology 07/21/25 10:25 Urine, Clean Catch Urine Culture - Preliminary 07/21/25 09:38 Mucosa - Nose SARS-CoV-2, Influenza & RSV (PCR) - Final 07/21/25 10:25 Stool Stool Occult Blood (GIORGIO) - Final Radiography Diagnostic Testing: Radiology Impression Echocardiogram 07/22/25 05:55 Interpretation Summary Mild concentric left ventricular hypertrophy. Mildly dilated left ventricle. Mild (1+) posteriorly directed mitral valve insufficiency. Trileaflet aortic valve. Mildly thickened leaflets. Mean peak gradient 8 mmHg. The study was technically difficult. Inferior hypokinesis. Estimated LVEF 55%. Stage I diastolic dysfunction. Ordering Physician: Timoteo Cooper Referring Physician: ALIS DURAN Performed By: Jessica Wright RCS Rhythm Strip Rhythm Strip: Sinus Tach Rate: 101 Ectopy: None Physical Exam Narrative Seen and examined The morning patient was frustrated by the call from his workplace that he has togiven the return that he is being admitted here. Patient was also sad. Shortness of breath is improved. Significant right leg swelling. Complain of right leg pain. Physical exam: General: Alert, Oriented x3, Cooperative. Morbid obesity BMI 54.2 kg/m? HEENT: Atraumatic, PERRLA, EOMI, Normocephalic. Oral: Deep oropharyngeal history could not be visualized Neck: Supple, No JVD, Negative Carotid Bruits Chest wall/Lungs: Air entry severely diminished in bilateral lung bases. Mild crepitation in right lung base Cardiovascular: Regular rate and rhythm, Normal S1,S2, No M/G/R Abdomen: Bowel Sounds Present, Soft, Non Tender, Non-Distended : No dysuria. No renal angle tenderness. No suprapubic tenderness. Extremities: No edema, Capillary Refill Less than 3 Seconds Skin: Redness/erythema present over right calf area Musculoskeletal: Tenderness in right calf. Bilateral lower extremity lymphedemachronic. ROM restricted over knees and hip joints Neurological: Cranial nerves II-XII grossly intact, DTR 2+/4. No acute focal neurological deficit. Psych/Mental Status: Flat affect Assessment & Plan Assessment/Plan (1) Cellulitis: QUALIFIERS: Laterality: right Site of cellulitis: extremity Siteof cellulitis of extremity: lower extremity Qualified Code(s): L03.115 - Cellulitis of right lower limb (2) Chest pain, atypical: PLAN: Plan This is 45-year-old gentleman admitted with chest pain last night and several weeks of shortness of breath yesterday 1. Atypical chest pain and SOB probably due to heart failure exacerbation: Patient is being admitted in PCU. First troponin 8, second pending. proBNP 106but may be falsely normal/low due to morbid obesity. Chest CTA negative for pulmonary embolism and earlier venous duplex were negative for acute DVT. It shows mild/trivial edema, mild mediastinal adenopathy and cirrhosis. Lactic acid elevated probably due to ineffective circulation/venous congestion. Started on furosemide 40 mg IV twice daily. ED physician ordered 1 L normal saline bolus. Heart failure core measures including intake and output, fluid restriction less than 1500 mL, daily weight monitoring, kidney and electrolytes monitoring. 2D echo ordered for tomorrow a.m. Twelve-lead EKG sinus tachycardia 101 bpm, QTc 479 ms. No previous EKG to compare. 07/22: 2D echo reviewed shows mild concentric LVH, mildly dilated LV, inferior hypokinesis EF 55%, stage I diastolic function. Acute HFpEF. Normal RV and both left and right atria. Mild MR. Mean peak gradient 8 mmHg but not reportedaortic stenosis. Mildly thickened aortic valve leaflets. Continue diuresis as mentioned above. 07/23: Continue diuresis. 2. RLE cellulitis with bilateral chronic venous hypertension and lymphedema: Right lower leg is tender and edematous slightly more than LLE. Venous duplex of right lower extremity negative for acute DVT. It shows valvular competence possible deep venous system. Started on IV ceftriaxone after patient got IV cefazolin in the ED. No open wound to culture. 07/22: Discussed the patient about the DVT prophylaxis with high risk of DVT but patient also high risk of bleeding with severe anemia and thrombocytopenia, and coagulopathy with INR 1.7. IV iron ordered for severe anemia. May consider low- dose anticoagulant later on when anemia is better. 07/23: Patient stated that his pain is better. Probably antibiotic working 3. Decompensated MASLD cirrhosis with mild perihepatic ascites, thrombocytopenia and hypotonic hypervolemic hyponatremia: Albumin 2.5, platelet count 112K. T. bili 3.82, AST 42. ALT normal. Right upper quadrant sonogram ordered. 07/23: Total bilirubin 2.12. INR 1.6. Transaminases normal. Alkaline phosphatase normal. 4. DM type II: Glucose is elevated 168. Patient on multiple oral antidiabetic medications which are held. Started on Lantus 10 units p.o. daily. Accu-Chek before meals and at bedtime with Humalog sliding scale coverage and hypoglycemia protocol. 07/23: Glucoses 129-226. Lantus dose increased 5. Hypertension: Blood pressure is in normal range though it was elevated in the ED. 6. Acute severe anemia on chronic normocytic normochromic and thrombocytopenia present on admission: H&H 8.8/26.8% on admission. Last hemoglobin 10.4 in June 2024. Dropped to 7.5 g%. MCV normal, MCH low. RDW elevated. Probably iron deficiency anemia. Anemia workup ordered. Reticulocyte count high 3.89, immature reticulocyte fraction 38.5 therefore bone marrow responsive to anemia. Folate normal. Other comorbidities include GERD, anal fissure/hemorrhoid: On PPI. Continue PPI. Saw Dr. Lorie Willson for anal fissure and was advised sitz bath, diltiazem and lidocaine suppository and avoid constipation. 7. Morbid obesity with obstructive sleep apnea/possible obesity hypoventilationsyndrome: Patient uses CPAP at home, continue Living will/advanced directive/end of life care: Patient does not have living will or advanced directive. His is next of kin. After discussion of benefits/risks procedures involved with full code, DNR CC arrest and DNR CC, the patient opted for full code. Patient does want artificial life support including intubation, tube feed, ventilator and/chest compression, central venous catheter, vasopressor and DC shock if needed Total time spent in [id number] encounter in discussion of advanced directive 17 minutes. Microbiology Past 72 Hours 07/21/25 09:15 Blood Culture (Wb) - Anticubital Left Blood Culture - Preliminary No growth in 48 hours. 07/21/25 09:15 Blood Culture (Wb) - Anticubital Left Blood Culture - Preliminary No growth in 48 hours. 07/21/25 10:25 Urine, Clean Catch Urine Culture - Preliminary 07/21/25 09:38 Mucosa - Nose SARS-CoV-2, Influenza & RSV (PCR) - Final 07/21/25 10:25 Stool Stool Occult Blood (GIORGIO) - Final Laboratory Results 07/22/25 17:05: POC Glucose 236 H 07/22/25 23:09: POC Glucose 194 H 07/23/25 04:51: WBC 9.1, RBC 2.90 L, Hgb 7.5 L, Hct 23.5 L, MCV 81.0, MCH 25.9 L, MCHC 31.9 L, RDW Std Deviation 65.4 H, RDW Coeff of Melina 22.9 H, Plt Count 109 L, MPV 9.9, Immature Gran % (Auto) 1.300 H, Neut % (Auto) 64.2, Lymph % (Auto) 14.9 L, Sandoval % (Auto) 16.2 H, Eos % (Auto) 2.9, Baso % (Auto) 0.5, Absolute Neuts (auto) 5.9, Absolute Lymphs (auto) 1.36, Nucleated RBC % 0, Anisocytosis 1+, Retic Count 3.89 H, Immature Retic Fraction 38.50 H, Retic Hgb Equivalent 30.2, PT 19.8 H, INR 1.6, Sodium 132 L, Potassium 3.8, Chloride 101, Carbon Dioxide 21.7, Anion Gap 9, BUN 9, Creatinine 0.70, Estim Creat Clear Calc 212.39, Est GFR (MDRD) Non-Af 114, BUN/Creatinine Ratio 12.8, Glucose 154 H, Calcium 7.5 L, Iron Pending, TIBC Pending, Iron Saturation Pending, Unsaturated IBC Pending, Ferritin Pending, Total Bilirubin 2.12 H, AST 36, ALT 24, Alkaline Phosphatase 126, Total Protein 5.7 L, Albumin 2.1 L, Globulin 3.6, Albumin/Globulin Ratio 0.6 L, Vitamin B12 Pending 07/23/25 06:38: POC Glucose 129 H 07/23/25 10:16: Serum Folate 10.50 07/23/25 11:25: POC Glucose 226 H Clinical Impression(s) from Imaging Studies Chest CTA 07/21/25 09:27 IMPRESSION: Negative for pulmonary embolus.. Mild interstitial edema. Mild mediastinal adenopathy. Cirrhosis. Echocardiogram 07/22/25 05:55 Interpretation Summary Mild concentric left ventricular hypertrophy. Mildly dilated left ventricle. Mild (1+) posteriorly directed mitral valve insufficiency. Trileaflet aortic valve. Mildly thickened leaflets. Mean peak gradient 8 mmHg. The study was technically difficult. Inferior hypokinesis. Estimated LVEF 55%. Stage I diastolic dysfunction. Ordering Physician: Timoteo Cooper Referring Physician: ALIS DURAN Performed By: Jessica Wright RCS Charges/Coding Visit Charges Inpatient E&M: 36797 Subs Hosp L2 07/23/25 1512 <Electronically signed by Timoteo Cooper MD> Cosigner Signature (if applicable): CC: ~ Signed [facility] Work Phone: [phone] 192-259509-09-2025 Progress note [facility] Medical Records Department [address] [place] [id number] Progress Note - Hospitalist 07/23/25 0932 MR#: [id number] Acct: [id number] Name: LEON RIDER Rep #:[id number] : 1980 45 From: Timoteo Mccarthy PCP: Dr. Alis Duran MD Status:ADM IN Location: [place] [address] Reason for Visit Chief Complaint: Atypical chest pain about 2 times last night. Objective Data Objective Data Vital Signs: Vital Signs Temp Pulse Resp BP Pulse Ox O2 Del Method 98.5 F 91 18 133/60 H 95 Room Air 07/23/25 03:50 07/23/25 03:50 07/23/25 03:50 07/23/25 03:50 07/23/25 07:58 07/23/25 07:58 Oxygen Delivery Method Room Air Weight: 391 lb 1.601 oz Body Mass Index (BMI) 54.5 Intake & Output: Intake and Output for Last 24 Hours 07/21/25 07/22/25 07/23/25 23:59 23:59 23:59 Intake Total 1810 / 1810 1360 / 1360 Output Total 300 / 300 1850 / 2200 850 / 850 Balance 1510 / 1510 -490 / -840 -850 / -850 Lab / Micro Data 07/23/25 04:51 07/23/25 04:51 Labs: Laboratory Results - last 24 hr 07/22/25 11:30: POC Glucose 214 H 07/22/25 17:05: POC Glucose 236 H 07/22/25 23:09: POC Glucose 194 H 07/23/25 04:51: WBC 9.1, RBC 2.90 L, Hgb 7.5 L, Hct 23.5 L, MCV 81.0, MCH 25.9 L, MCHC 31.9 L, RDW Std Deviation 65.4 H, RDW Coeff of Melina 22.9 H, Plt Count 109 L, MPV 9.9, Immature Gran % (Auto) 1.300 H, Neut % (Auto) 64.2, Lymph % (Auto) 14.9 L, Sandoval % (Auto) 16.2 H, Eos % (Auto) 2.9, Baso % (Auto) 0.5, Absolute Neuts (auto) 5.9, Absolute Lymphs (auto) 1.36, Nucleated RBC % 0, Anisocytosis 1+, PT 19.8 H, INR 1.6, Sodium 132 L, Potassium 3.8, Chloride 101, Carbon Dioxide 21.7, Anion Gap 9, BUN 9, Creatinine 0.70, Estim Creat Clear Calc 212.39, Est GFR (MDRD) Non-Af 114, BUN/Creatinine Ratio 12.8, Glucose 154 H, Calcium 7.5 L, Total Bilirubin 2.12 H, AST 36, ALT 24, Alkaline Phosphatase 126, Total Protein 5.7 L, Albumin 2.1 L, Globulin 3.6, Albumin/Globulin Ratio 0.6 L 07/23/25 06:38: POC Glucose 129 H Micro: Microbiology 07/21/25 10:25 Urine, Clean Catch Urine Culture - Preliminary 07/21/25 09:38 Mucosa - Nose SARS-CoV-2, Influenza & RSV (PCR) - Final 07/21/25 10:25 Stool Stool Occult Blood (GIORGIO) - Final Radiography Diagnostic Testing: Radiology Impression Echocardiogram 07/22/25 05:55 Interpretation Summary Mild concentric left ventricular hypertrophy. Mildly dilated left ventricle. Mild (1+) posteriorly directed mitral valve insufficiency. Trileaflet aortic valve. Mildly thickened leaflets. Mean peak gradient 8 mmHg. The study was technically difficult. Inferior hypokinesis. Estimated LVEF 55%. Stage I diastolic dysfunction. Ordering Physician: Timoteo Cooper Referring Physician: ALIS DURAN Performed By: Jessica Wright RCS Rhythm Strip Rhythm Strip: Sinus Tach Rate: 101 Ectopy: None Physical Exam Narrative Seen and examined The morning patient was frustrated by the call from his workplace that he has togiven the return that he is being admitted here. Patient was also sad. Shortness of breath is improved. Significant right leg swelling. Complain of right leg pain. Physical exam: General: Alert, Oriented x3, Cooperative. Morbid obesity BMI 54.2 kg/m? HEENT: Atraumatic, PERRLA, EOMI, Normocephalic. Oral: Deep oropharyngeal history could not be visualized Neck: Supple, No JVD, Negative Carotid Bruits Chest wall/Lungs: Air entry severely diminished in bilateral lung bases. Mild crepitation in right lung base Cardiovascular: Regular rate and rhythm, Normal S1,S2, No M/G/R Abdomen: Bowel Sounds Present, Soft, Non Tender, Non-Distended : No dysuria. No renal angle tenderness. No suprapubic tenderness. Extremities: No edema, Capillary Refill Less than 3 Seconds Skin: Redness/erythema present over right calf area Musculoskeletal: Tenderness in right calf. Bilateral lower extremity lymphedemachronic. ROM restricted over knees and hip joints Neurological: Cranial nerves II-XII grossly intact, DTR 2+/4. No acute focal neurological deficit. Psych/Mental Status: Flat affect Assessment & Plan Assessment/Plan (1) Cellulitis: QUALIFIERS: Laterality: right Site of cellulitis: extremity Siteof cellulitis of extremity: lower extremity Qualified Code(s): L03.115 - Cellulitis of right lower limb (2) Chest pain, atypical: PLAN: Plan This is 45-year-old gentleman admitted with chest pain last night and several weeks of shortness ofbreath yesterday 1. Atypical chest pain and SOB probably due to heart failure exacerbation: Patient is being admitted in PCU. First troponin 8, second pending. proBNP 106but may be falsely normal/low due to morbid obesity. Chest CTA negative for pulmonary embolism and earlier venous duplex were negative for acute DVT. It shows mild/trivial edema, mild mediastinal adenopathy and cirrhosis. Lactic acid elevated probably due to ineffective circulation/venous congestion. Started on furosemide 40 mg IV twice daily. ED physician ordered 1 L normal saline bolus. Heart failure core measures including intake and output, fluid restriction less than 1500 mL, daily weight monitoring, kidney and electrolytes monitoring.2D echo ordered for tomorrow a.m. Twelve-lead EKG sinus tachycardia 101 bpm, QTc 479 ms. No previous EKG to compare. 07/22: 2D echo reviewed shows mild concentric LVH, mildly dilated LV, inferior hypokinesis EF 55%, stage I diastolic function. Acute HFpEF. Normal RV and both left and right atria. Mild MR. Mean peak gradient 8 mmHg but not reportedaortic stenosis. Mildly thickened aortic valve leaflets. Continue diuresis as mentioned above. 07/23: Continue diuresis. 2. RLE cellulitis with bilateral chronic venous hypertension and lymphedema: Right lower leg is tender and edematous slightly more than LLE. Venous duplex of right lower extremity negative for acute DVT. It shows valvular competence possible deep venous system. Started on IV ceftriaxone after patient got IV cefazolin in the ED. No open wound to culture. 07/22: Discussed the patient about the DVT prophylaxis with high risk of DVT but patient also high risk of bleeding with severe anemia and thrombocytopenia, and coagulopathy with INR 1.7. IV iron ordered for severe anemia. May consider low- dose anticoagulant later on when anemia is better. 07/23: Patient stated that his pain is better. Probably antibiotic working 3. Decompensated MASLD cirrhosis with mild perihepatic ascites, thrombocytopenia and hypotonic hypervolemic hyponatremia: Albumin 2.5, platelet count 112K. T. bili 3.82, AST 42. ALT normal. Right upper quadrant sonogram ordered. 07/23: Total bilirubin 2.12. INR 1.6. Transaminases normal. Alkaline phosphatase normal. 4. DM type II: Glucose is elevated 168. Patient on multiple oral antidiabetic medications which areheld. Started on Lantus 10 units p.o. daily. Accu-Chek before meals and at bedtime with Humalog sliding scale coverage and hypoglycemia protocol. 07/23: Glucoses 129-226. Lantus dose increased 5. Hypertension: Blood pressure is in normal range though it was elevated in the ED. 6. Acute severe anemia on chronic normocytic normochromic and thrombocytopenia present on admission: H&H 8.8/26.8% on admission. Last hemoglobin 10.4 in June 2024. Dropped to 7.5 g%. MCV normal, MCH low. RDW elevated. Probably iron deficiency anemia. Anemia workup ordered. Reticulocyte count high 3.89, immature reticulocyte fraction 38.5 therefore bone marrow responsive to anemia. Folate normal. Other comorbidities include GERD, anal fissure/hemorrhoid: On PPI. Continue PPI. Saw Dr. Lorie Willson for anal fissure and was advised sitz bath, diltiazem and lidocaine suppository and avoid constipation. 7. Morbid obesity with obstructive sleep apnea/possible obesity hypoventilationsyndrome: Patient uses CPAP at home, continue Living will/advanced directive/end of life care: Patient does not have living will or advanced directive. His is next of kin. After discussion of benefits/risks procedures involved with full code, DNR CC arrest and DNR CC, the patient opted for full code. Patient does want artificial life support including intubation, tube feed, ventilator and/chest compression, central venous catheter, vasopressor and DC shock if needed Total time spent in [id number] encounter in discussion of advanced directive 17 minutes. Microbiology Past 72 Hours 07/21/25 09:15 Blood Culture (Wb) - Anticubital Left Blood Culture - Preliminary No growth in 48 hours. 07/21/25 09:15 Blood Culture (Wb) - Anticubital Left Blood Culture - Preliminary No growth in 48 hours. 07/21/25 10:25 Urine, Clean Catch Urine Culture - Preliminary 07/21/25 09:38 Mucosa - Nose SARS-CoV-2, Influenza & RSV (PCR) - Final 07/21/25 10:25 Stool Stool Occult Blood (GIORGIO) - Final Laboratory Results 07/22/25 17:05: POC Glucose 236 H 07/22/25 23:09: POC Glucose 194 H 07/23/25 04:51: WBC 9.1, RBC 2.90 L, Hgb 7.5 L, Hct 23.5 L, MCV 81.0, MCH 25.9 L, MCHC 31.9 L, RDW Std Deviation 65.4 H, RDW Coeff of Melina 22.9 H, Plt Count 109 L, MPV 9.9, Immature Gran % (Auto) 1.300 H, Neut % (Auto) 64.2, Lymph % (Auto) 14.9 L, Sandoval % (Auto) 16.2 H, Eos % (Auto) 2.9, Baso % (Auto) 0.5, Absolute Neuts (auto) 5.9, Absolute Lymphs (auto) 1.36, Nucleated RBC % 0, Anisocytosis 1+, Retic Count 3.89 H, Immature Retic Fraction 38.50 H, Retic Hgb Equivalent 30.2, PT 19.8 H, INR 1.6, Sodium 132 L, Potassium 3.8, Chloride 101, Carbon Dioxide 21.7, Anion Gap 9, BUN 9, Creatinine 0.70, Estim Creat Clear Calc 212.39, Est GFR (MDRD) Non-Af 114, BUN/Creatinine Ratio 12.8, Glucose 154 H, C alcium 7.5 L, Iron Pending, TIBC Pending, Iron Saturation Pending, Unsaturated IBC Pending, Ferritin Pending, Total Bilirubin 2.12 H, AST 36, ALT 24, Alkaline Phosphatase 126, Total Protein 5.7 L, Albumin 2.1 L, Globulin 3.6, Albumin/Globulin Ratio 0.6 L, Vitamin B12 Pending 07/23/25 06:38: POC Glucose 129 H 07/23/25 10:16: Serum Folate 10.50 07/23/25 11:25: POC Glucose 226 H Clinical Impression(s) from Imaging Studies Chest CTA 07/21/25 09:27 IMPRESSION: Negative for pulmonary embolus.. Mild interstitial edema. Mild mediastinal adenopathy. Cirrhosis. Echocardiogram 07/22/25 05:55 Interpretation Summary Mild concentric left ventricular hypertrophy. Mildly dilated left ventricle. Mild (1+) posteriorly directed mitral valve insufficiency. Trileaflet aortic valve. Mildly thickened leaflets. Mean peak gradient 8 mmHg. The study was technically difficult. Inferior hypokinesis. Estimated LVEF 55%. Stage I diastolic dysfunction. Ordering Physician: Timoteo Cooper Referring Physician: ALIS DURAN Performed By: Jessica Wright RCS Charges/Coding Visit Charges Inpatient E&M: 33614 Subs Hosp L2 07/23/25 1512 Cosigner Signature (if applicable): CC: ~ Signed [facility]09-08-2025 Progress note Author Timoteo Cooper [facility] Note Date/Time July 22, 2025 4:06pm [facility] Medical Records Department [address] [place] [address] Progress Note - Hospitalist 07/22/25 0946 MR#: [id number] Acct: [id number] Name: LEON RDIER Rep #:[id number] : 1980 45 From: Timoeto Mccarthy PCP: Dr. Alis Duran MD Status:ADM IN Location: [place] [address] Reason for Visit Chief Complaint: Atypical chest pain about 2 times last night. Objective Data Objective Data Vital Signs: Vital Signs Temp Pulse Resp BP Pulse Ox O2 Del Method 98.5 F 99 18 108/69 94 Room Air 07/22/25 03:00 07/22/25 03:00 07/22/25 03:00 07/22/25 03:00 07/22/25 03:39 07/22/25 03:39 Oxygen Delivery Method Room Air Weight: 385 lb 5.888 oz Body Mass Index (BMI) 53.9 Intake & Output: Intake and Output for Last 24 Hours 07/20/25 07/21/25 07/22/25 23:59 23:59 23:59 Intake Total 1810 / 1810 200 / 200 Output Total 300 / 300 350 / 350 Balance 1510 / 1510 -150 / -150 Lab / Micro Data 07/22/25 04:42 07/22/25 04:42 Labs: Laboratory Results - last 24 hr 07/21/25 09:18: WBC 9.3, RBC 3.35 L, Hgb 8.8 L, Hct 26.8 L, MCV 80.0, MCH 26.3 L, MCHC 32.8, RDW Std Deviation 63.7 H, RDW Coeff of Melina 22.6 H, Plt Count 112 L,MPV 10.3, Immature Gran % (Auto) 0.600, Neut % (Auto) 70.4 H, Lymph % (Auto) 10.4 L, Sandoval % (Auto) 15.8 H, Eos % (Auto) 2.3, Baso % (Auto) 0.5, Absolute Neuts (auto) 6.6, Absolute Lymphs (auto) 0.97, Nucleated RBC % 0, Differential Comment SCANNED, Polychromasia 1+, Anisocytosis 2+, Microcytosis 1+, Target Cells 1+, Sodium 127 L, Potassium 3.7, Chloride 97 L, Carbon Dioxide 17.8 L, Anion Gap 12,BUN 8, Creatinine 0.66 L, Est GFR (MDRD) Non-Af 117, BUN/Creatinine Ratio 12.9, Glucose 168 H, Calcium 8.1, Total Bilirubin 3.82 H, AST 42 H, ALT 33, Alkaline Phosphatase 109, Troponin T High Sens 8, NT pro BNP II 106, Total Protein 6.6, Albumin 2.5 L, Globulin 4.1, Albumin/Globulin Ratio 0.6 L, TSH 1.550 07/21/25 09:35: PT 20.3 H, INR 1.7, APTT 39.4 H, Lactic Acid 3.2 H* 07/21/25 10:25: Urine Color Yellow, Urine Clarity Clear, Urine pH 6.5, Ur Specific [place] 1.010, Urine Protein 30 H, Urine Glucose (UA) Normal, Urine Ketones Negative, Urine Occult Blood 25 H, Urine Nitrite Negative, Urine Bilirubin 1 H, Urine Urobilinogen 4 H, Ur Leukocyte Esterase Negative, Urine RBC0 SEEN, Urine WBC 0 SEEN, Ur Squamous Epith Cells 0 SEEN, Urine Bacteria 0 SEEN,Urine Mucus 0 SEEN 07/21/25 11:25: Blood Type B POSITIVE, Antibody Screen NEGATIVE 07/21/25 11:56: Magnesium 1.8, Direct Bilirubin 1.79 H, Troponin T Hi Sens 2 Hr 7 07/21/25 13:33: Troponin T Hi Sens 4Hr 7 07/21/25 13:53: Lactic Acid 2.5 H* 07/21/25 17:06: POC Glucose 213 H 07/21/25 21:22: POC Glucose 165 H 07/22/25 04:42: WBC 8.2, RBC 2.93 L, Hgb 7.6 L, Hct 23.9 L, MCV 81.6, MCH 25.9 L, MCHC 31.8 L, RDW Std Deviation 66.0 H, RDW Coeff of Melina 22.6 H, Plt Count 104 L, MPV 9.7, Immature Gran % (Auto) 0.900, Neut % (Auto) 66.1, Lymph % (Auto) 13.7 L, Sandoval % (Auto) 15.8 H, Eos % (Auto) 3.0, Baso % (Auto) 0.5, Absolute Neuts (auto) 5.4, Absolute Lymphs (auto) 1.13, Nucleated RBC % 0, Platelet Estimate SLT DEC, Polychromasia 1+, Anisocytosis 2+, Ovalocytes 1+, Sodium 130 L, Potassium 4.0, Chloride 100, Carbon Dioxide 22.4, Anion Gap 7, BUN8, Creatinine 0.69 L, Estim Creat Clear Calc 215.46, Est GFR (MDRD) Non-Af 115, BUN/Creatinine Ratio 12.3, Glucose 167 H, Hemoglobin A1c 6.1 H, Calcium 7.7, Total Bilirubin 2.57 H, AST 36, ALT 26, Alkaline Phosphatase 131 H, Total Protein6.0, Albumin 2.2 L, Globulin 3.8, Albumin/Globulin Ratio 0.6 L, Triglycerides 105, Cholesterol 108, LDL Cholesterol, Calc 68, VLDL Cholesterol 21, HDL Cholesterol 19 L, Cholesterol/HDL Ratio 5.63, TSH 1.380 07/22/25 06:28: POC Glucose 149 H Micro: Microbiology 07/21/25 09:38 Mucosa - Nose SARS-CoV-2, Influenza & RSV (PCR) - Final 07/21/25 10:25 Stool Stool Occult Blood (GIORGIO) - Final Radiography Diagnostic Testing: Radiology Impression Chest CTA 07/21/25 09:27 IMPRESSION: Negative for pulmonary embolus.. Mild interstitial edema. Mild mediastinal adenopathy. Cirrhosis. Reading Location: [id number] Rhythm Strip Rhythm Strip: Sinus Tach Rate: 101 Ectopy: None Physical Exam Narrative Seen and examined The morning patient was frustrated by the call from his workplace that he has togiven the return that he is being admitted here. Patient was also sad. Shortness of breath is improved. Significant right leg swelling. Complain of right leg pain. Physical exam: General: Alert, Oriented x3, Cooperative. Morbid obesity BMI 54.2 kg/m? HEENT: Atraumatic, PERRLA, EOMI, Normocephalic. Oral: Deep oropharyngeal history could not be visualized Neck: Supple, No JVD, Negative Carotid Bruits Chest wall/Lungs: Air entry severely diminished in bilateral lung bases. Mild crepitation in right lung base Cardiovascular: Regular rate and rhythm, Normal S1,S2, No M/G/R Abdomen: Bowel Sounds Present, Soft, Non Tender, Non-Distended : No dysuria. No renal angle tenderness. No suprapubic tenderness. Extremities: No edema, Capillary Refill Less than 3 Seconds Skin: Redness/erythema present over right calf area Musculoskeletal: Tenderness in right calf. Bilateral lower extremity lymphedemachronic. ROM restricted over knees and hip joints Neurological: Cranial nerves II-XII grossly intact, DTR 2+/4. No acute focal neurological deficit. Psych/Mental Status: Flat affect Assessment & Plan Assessment/Plan (1) Cellulitis: QUALIFIERS: Laterality: right Site of cellulitis: extremity Siteof cellulitis of extremity: lower extremity Qualified Code(s): L03.115 - Cellulitis of right lower limb (2) Chest pain, atypical: PLAN: Plan This is 45-year-old gentleman admitted with chest pain last night and several weeks of shortness of breath yesterday 1. Atypical chest pain and SOB probably due to heart failure exacerbation: Patient is being admitted in PCU. First troponin 8, second pending. proBNP 106but may be falsely normal/low due to morbid obesity. Chest CTA negative for pulmonary embolism and earlier venous duplex were negative for acute DVT. It shows mild/trivial edema, mild mediastinal adenopathy and cirrhosis. Lactic acid elevated probably due to ineffective circulation/venous congestion. Started on furosemide 40 mg IV twice daily. ED physician ordered 1 L normal saline bolus. Heart failure core measures including intake and output, fluid restriction less than 1500 mL, daily weight monitoring, kidney and electrolytes monitoring. 2D echo ordered for tomorrow a.m. Twelve-lead EKG sinus tachycardia 101 bpm, QTc 479 ms. No previous EKG to compare. 07/22: 2D echo reviewed shows mild concentric LVH, mildly dilated LV, inferior hypokinesis EF 55%, stage I diastolic function. Acute HFpEF. Normal RV and both left and right atria. Mild MR. Mean peak gradient 8 mmHg but not reportedaortic stenosis. Mildly thickened aortic valve leaflets Continue diuresis as mentioned above. 2. RLE cellulitis with bilateral chronic venous hypertension and lymphedema: Right lower leg is tender and edematous slightly more than LLE. Venous duplex of right lower extremity negative for acute DVT. It shows valvular competence possible deep venous system. Started on IV ceftriaxone after patient got IV cefazolin in the ED. No open wound to culture. 07/22: Discussed the patient about the DVT prophylaxis with high risk of DVT but patient also high risk of bleeding with severe anemia and thrombocytopenia, and coagulopathy with INR 1.7. IV iron ordered for severe anemia. May consider low- dose anticoagulant later on when anemia is better. 3. Decompensated MASLD cirrhosis with mild perihepatic ascites, thrombocytopenia and hypotonic hypervolemic hyponatremia: Albumin 2.5, platelet count 112K. T. bili 3.82, AST 42. ALT normal. Right upper quadrant sonogram ordered. 4. DM type II: Glucose is elevated 168. Patient on multiple oral antidiabetic medications which are held. Started on Lantus 10 units p.o. daily. Accu-Chek before meals and at bedtime with Humalog sliding scale coverage and hypoglycemia protocol. 5. Hypertension: Blood pressure is in normal range though it was elevated in the ED. 6. Other comorbidities include GERD, anal fissure/hemorrhoid: On PPI. ContinuePPI. Saw Dr. Lorie Willson for anal fissure and was advised sitz bath, diltiazem and lidocaine suppository and avoid constipation. 7. Morbid obesity with obstructive sleep apnea/possible obesity hypoventilationsyndrome: Patient uses CPAP at home, continue Living will/advanced directive/end of life care: Patient does not have living will or advanced directive. His is next of kin. After discussion of benefits/risks procedures involved with full code, DNR CC arrest and DNR CC, the patient opted for full code. Patient does want artificial life support including intubation, tube feed, ventilator and/chest compression, central venous catheter, vasopressor and DC shock if needed Total time spent in [id number] encounter in discussion of advanced directive 17 minutes. Microbiology Past 72 Hours 07/21/25 09:38 Mucosa - Nose SARS-CoV-2, Influenza & RSV (PCR) - Final 07/21/25 10:25 Stool Stool Occult Blood (GIORGIO) - Final Laboratory Results 07/21/25 17:06: POC Glucose 213 H 07/21/25 21:22: POC Glucose 165 H 07/22/25 04:42: WBC 8.2, RBC 2.93 L, Hgb 7.6 L, Hct 23.9 L, MCV 81.6, MCH 25.9 L, MCHC 31.8 L, RDW Std Deviation 66.0 H, RDW Coeff of Melina 22.6 H, Plt Count 104 L, MPV 9.7, Immature Gran % (Auto) 0.900, Neut % (Auto) 66.1, Lymph % (Auto) 13.7 L, Sandoval % (Auto) 15.8 H, Eos % (Auto) 3.0, Baso % (Auto) 0.5, Absolute Neuts (auto) 5.4, Absolute Lymphs (auto) 1.13, Nucleated RBC % 0, Platelet Estimate SLT DEC, Polychromasia 1+, Anisocytosis 2+, Ovalocytes 1+, Sodium 130 L, Potassium 4.0, Chloride 100, Carbon Dioxide 22.4, Anion Gap 7, BUN 8, Creatinine 0.69 L, Estim Creat Clear Calc 215.46, Est GFR (MDRD) Non-Af 115, BUN/Creatinine Ratio 12.3, Glucose 167 H, Hemoglobin A1c 6.1 H, Calcium 7.7, Total Bilirubin 2.57 H, AST 36, ALT 26, Alkaline Phosphatase 131 H, Total Protein6.0, Albumin 2.2 L, Globulin 3.8, Albumin/Globulin Ratio 0.6 L, Triglycerides 105, Cholesterol 108, LDL Cholesterol, Calc 68, VLDL Cholesterol 21, HDL Cholesterol 19 L, Cholesterol/HDL Ratio 5.63, TSH 1.380 07/22/25 06:28: POC Glucose 149 H 07/22/25 11:30: POC Glucose 214 H Clinical Impression(s) from Imaging Studies Chest CTA 07/21/25 09:27 IMPRESSION: Negative for pulmonary embolus.. Mild interstitial edema. Mild mediastinal adenopathy. Cirrhosis. Echocardiogram 07/22/25 05:55 Interpretation Summary Mild concentric left ventricular hypertrophy. Mildly dilated left ventricle. Mild (1+) posteriorly directed mitral valve insufficiency. Trileaflet aortic valve. Mildly thickened leaflets. Mean peak gradient 8 mmHg. The study was technically difficult. Inferior hypokinesis. Estimated LVEF 55%. Stage I diastolic dysfunction. Ordering Physician: Timoteo Cooper Referring Physician: ALIS DURAN Performed By: Jessica Wright RCS Charges/Coding Visit Charges Inpatient E&M: 22710 Subs Hosp L2 07/22/25 1606 <Electronically signed by Timoteo Cooper MD> Cosigner Signature (if applicable): CC: ~ Signed [facility] Work Phone: [phone] 235-147409-08-2025 Progress note [facility] Medical Records Department [address] [place] [address] Progress Note - Hospitalist 07/22/25 0946 MR#: [id number] Acct: [id number] Name: LEON RIDER Rep #:[id number] : 1980 45 From: Timoteo Mccarthy PCP: Dr. Alis Duran MD Status:ADM IN Location: [place] [address] 1 Reason for Visit Chief Complaint: Atypical chest pain about 2 times last night. Objective Data Objective Data Vital Signs: Vital Signs Temp Pulse Resp BP Pulse Ox O2 Del Method 98.5 F 99 18 108/69 94 Room Air 07/22/25 03:00 07/22/25 03:00 07/22/25 03:00 07/22/25 03:00 07/22/25 03:39 07/22/25 03:39 Oxygen Delivery Method Room Air Weight: 385 lb 5.888 oz Body Mass Index (BMI) 53.9 Intake & Output: Intake and Output for Last 24 Hours 07/20/25 07/21/25 07/22/25 23:59 23:59 23:59 Intake Total 1810 / 1810 200 / 200 Output Total 300 / 300 350 / 350 Balance 1510 / 1510 -150 / -150 Lab / Micro Data 07/22/25 04:42 07/22/25 04:42 Labs: Laboratory Results - last 24 hr 07/21/25 09:18: WBC 9.3, RBC 3.35 L, Hgb 8.8 L, Hct 26.8 L, MCV 80.0, MCH 26.3 L, MCHC 32.8, RDW Std Deviation 63.7 H, RDW Coeff of Melina 22.6 H, Plt Count 112 L,MPV 10.3, Immature Gran % (Auto) 0.600,Neut % (Auto) 70.4 H, Lymph % (Auto) 10.4 L, Sandoval % (Auto) 15.8 H, Eos % (Auto) 2.3, Baso % (Auto) 0.5, Absolute Neuts (auto) 6.6, Absolute Lymphs (auto) 0.97, Nucleated RBC % 0, Differential CommentSCANNED, Polychromasia 1+, Anisocytosis 2+, Microcytosis 1+, Target Cells 1+, Sodium 127 L, Potassium 3.7, Chloride 97 L, Carbon Dioxide 17.8 L, Anion Gap 12,BUN 8, Creatinine 0.66 L, Est GFR (MDRD) Non-Af 117, BUN/Creatinine Ratio 12.9, Glucose 168 H, Calcium 8.1, Total Bilirubin 3.82 H, AST 42 H, ALT 33, Alkaline Phosphatase 109, Troponin T High Sens 8, NT pro BNP II 106, Total Protein 6.6, Albumin 2.5 L, Globulin 4.1, Albumin/Globulin Ratio 0.6 L, TSH 1.550 07/21/25 09:35: PT 20.3 H, INR 1.7, APTT 39.4 H, Lactic Acid 3.2 H* 07/21/25 10:25: Urine Color Yellow, Urine Clarity Clear, Urine pH 6.5, Ur Specific [place] 1.010, Urine Protein 30 H, Urine Glucose (UA) Normal, Urine Ketones Negative, Urine Occult Blood 25 H, UrineNitrite Negative, Urine Bilirubin 1 H, Urine Urobilinogen 4 H, Ur Leukocyte Esterase Negative, Urine RBC0 SEEN, Urine WBC 0 SEEN, Ur Squamous Epith Cells 0 SEEN, Urine Bacteria 0 SEEN,Urine Mucus 0 SEEN 07/21/25 11:25: Blood Type B POSITIVE, Antibody Screen NEGATIVE 07/21/25 11:56: Magnesium 1.8, Direct Bilirubin 1.79 H, Troponin T Hi Sens 2 Hr 7 07/21/25 13:33: Troponin T Hi Sens 4Hr 7 07/21/25 13:53: Lactic Acid 2.5 H* 07/21/25 17:06: POC Glucose 213 H 07/21/25 21:22: POC Glucose 165 H 07/22/25 04:42: WBC 8.2, RBC 2.93 L, Hgb 7.6 L, Hct 23.9 L, MCV 81.6, MCH 25.9 L, MCHC 31.8 L, RDW Std Deviation 66.0 H, RDW Coeff of Melina 22.6 H, Plt Count 104 L, MPV 9.7, Immature Gran % (Auto) 0.900, Neut % (Auto) 66.1, Lymph % (Auto) 13.7 L, Sandoval % (Auto) 15.8 H, Eos % (Auto) 3.0, Baso % (Auto) 0.5, Absolute Neuts (auto) 5.4, Absolute Lymphs (auto) 1.13, Nucleated RBC % 0, Platelet Estimate SLT DEC, Polychromasia 1+, Anisocytosis 2+, Ovalocytes 1+, Sodium 130 L, Potassium 4.0, Chloride 100, Carbon Dioxide 22.4, Anion Gap 7, BUN8, Creatinine 0.69 L, Estim Creat Clear Calc 215.46, Est GFR (MDRD) Non-Af 115, BUN/Creatinine Ratio 12.3, Glucose 167 H, Hemoglobin A1c 6.1 H, Calcium 7.7, Total Bilirubin 2.57 H, AST 36, ALT 26, Alkaline Phosphatase 131 H, Total Protein6.0, Albumin 2.2 L, Globulin 3.8, Albumin/Globulin Ratio 0.6 L, Triglycerides 105, Cholesterol 108, LDL Cholesterol, Calc 68, VLDL Cholesterol 21, HDL Cholesterol 19 L, Cholesterol/HDL Ratio 5.63, TSH 1.380 07/22/25 06:28: POC Glucose 149 H Micro: Microbiology 07/21/25 09:38 Mucosa - Nose SARS-CoV-2, Influenza & RSV (PCR) - Final 07/21/25 10:25 Stool Stool Occult Blood (GIORGIO) - Final Radiography Diagnostic Testing: Radiology Impression Chest CTA 07/21/25 09:27 IMPRESSION: Negative for pulmonary embolus.. Mild interstitial edema. Mild mediastinal adenopathy. Cirrhosis. Reading Location: [id number] Rhythm Strip Rhythm Strip: Sinus Tach Rate: 101 Ectopy: None Physical Exam Narrative Seen and examined The morning patient was frustrated by the call from his workplace that he has togiven the return that he is being admitted here. Patient was also sad. Shortness of breath is improved. Significant right leg swelling. Complain of right leg pain. Physical exam: General: Alert, Oriented x3, Cooperative. Morbid obesity BMI 54.2 kg/m? HEENT: Atraumatic, PERRLA, EOMI, Normocephalic. Oral: Deep oropharyngeal history could not be visualized Neck: Supple, No JVD, Negative Carotid Bruits Chest wall/Lungs: Air entry severely diminished in bilateral lung bases. Mild crepitation in right lung base Cardiovascular: Regular rate and rhythm, Normal S1,S2, No M/G/R Abdomen: Bowel Sounds Present, Soft, Non Tender, Non-Distended : No dysuria. No renal angle tenderness. No suprapubic tenderness. Extremities: No edema, Capillary Refill Less than 3 Seconds Skin: Redness/erythema present over right calf area Musculoskeletal: Tenderness in right calf. Bilateral lower extremity lymphedemachronic. ROM restricted over knees and hip joints Neurological: Cranial nerves II-XII grossly intact, DTR 2+/4. No acute focal neurological deficit. Psych/Mental Status: Flat affect Assessment & Plan Assessment/Plan (1) Cellulitis: QUALIFIERS: Laterality: right Site of cellulitis: extremity Siteof cellulitis of extremity: lower extremity Qualified Code(s): L03.115 - Cellulitis of right lower limb (2) Chest pain, atypical: PLAN: Plan This is 45-year-old gentleman admitted with chest pain last night and several weeks of shortness ofbreath yesterday 1. Atypical chest pain and SOB probably due to heart failure exacerbation: Patient is being admitted in PCU. First troponin 8, second pending. proBNP 106but may be falsely normal/low due to morbid obesity. Chest CTA negative for pulmonary embolism and earlier venous duplex were negative for acute DVT. It shows mild/trivial edema, mild mediastinal adenopathy and cirrhosis. Lactic acid elevated probably due to ineffective circulation/venous congestion. Started on furosemide 40 mg IV twice daily. ED physician ordered 1 L normal saline bolus. Heart failure core measures including intake and output, fluid restriction less than 1500 mL, daily weight monitoring, kidney and electrolytes monitoring.2D echo ordered for tomorrow a.m. Twelve-lead EKG sinus tachycardia 101 bpm, QTc 479 ms. No previous EKG to compare. 07/22: 2D echo reviewed shows mild concentric LVH, mildly dilated LV, inferior hypokinesis EF 55%, stage I diastolic function. Acute HFpEF. Normal RV and both left and right atria. Mild MR. Mean peak gradient 8 mmHg but not reportedaortic stenosis. Mildly thickened aortic valve leaflets Continue diuresis as mentioned above. 2. RLE cellulitis with bilateral chronic venous hypertension and lymphedema: Right lower leg is tender and edematous slightly more than LLE. Venous duplex of right lower extremity negative for acute DVT. It shows valvular competence possible deep venous system. Started on IV ceftriaxone after patient got IV cefazolin in the ED. No open wound to culture. 07/22: Discussed the patient about the DVT prophylaxis with high risk of DVT but patient also high risk of bleeding with severe anemia and thrombocytopenia, and coagulopathy with INR 1.7. IV iron ordered for severe anemia. May consider low- dose anticoagulant later on when anemia is better. 3. Decompensated MASLD cirrhosis with mild perihepatic ascites, thrombocytopenia and hypotonic hypervolemic hyponatremia: Albumin 2.5, platelet count 112K. T. bili 3.82, AST 42. ALT normal. Right upper quadrant sonogram ordered. 4. DM type II: Glucose is elevated 168. Patient on multiple oral antidiabetic medications which areheld. Started on Lantus 10 units p.o. daily. Accu-Chek before meals and at bedtime with Humalog sliding scale coverage and hypoglycemia protocol. 5. Hypertension: Blood pressure is in normal range though it was elevated in the ED. 6. Other comorbidities include GERD, anal fissure/hemorrhoid: On PPI. ContinuePPI. Saw Dr. Lorie Willson for anal fissure and was advised sitz bath, diltiazem and lidocaine suppository and avoid constipation. 7. Morbid obesity with obstructive sleep apnea/possible obesity hypoventilationsyndrome: Patient uses CPAP at home, continue Living will/advanced directive/end of life care: Patient does not have living will or advanced directive. His is next of kin. After discussion of benefits/risks procedures involved with full code, DNR CC arrest and DNR CC, the patient opted for full code. Patient does want artificial life support including intubation, tube feed, ventilator and/chest compression, central venous catheter, vasopressor and DC shock if needed Total time spent in [id number] encounter in discussion of advanced directive 17 minutes. Microbiology Past 72 Hours 07/21/25 09:38 Mucosa - Nose SARS-CoV-2, Influenza & RSV (PCR) - Final 07/21/25 10:25 Stool Stool Occult Blood (GIORGIO) - Final Laboratory Results 07/21/25 17:06: POC Glucose 213 H 07/21/25 21:22: POC Glucose 165 H 07/22/25 04:42: WBC 8.2, RBC 2.93 L, Hgb 7.6 L, Hct 23.9 L, MCV 81.6, MCH 25.9 L, MCHC 31.8 L, RDW Std Deviation 66.0 H, RDW Coeff of Melina 22.6 H, Plt Count 104 L, MPV 9.7, Immature Gran % (Auto) 0.900, Neut % (Auto) 66.1, Lymph % (Auto) 13.7 L, Sandoval % (Auto) 15.8 H, Eos % (Auto) 3.0, Baso % (Auto) 0.5, Absolute Neuts (auto) 5.4, Absolute Lymphs (auto) 1.13, Nucleated RBC % 0, Platelet Estimate SLT DEC, Polychromasia 1+, Anisocytosis 2+, Ovalocytes 1+, Sodium 130 L, Potassium 4.0, Chloride 100, Carbon Dioxide 22.4, Anion Gap 7, BUN 8, Creatinine 0.69 L, Estim Creat Clear Calc 215.46, Est GFR (MDRD) Non-Af 115, BUN/Creatinine Ratio 12.3, Glucose 167 H, Hemoglobin A1c 6.1 H, Calcium 7.7, TotalBilirubin 2.57 H, AST 36, ALT 26, Alkaline Phosphatase 131 H, Total Protein6.0, Albumin 2.2 L, Globulin 3.8, Albumin/Globulin Ratio 0.6 L, Triglycerides 105, Cholesterol 108, LDL Cholesterol, Calc 68, VLDL Cholesterol 21, HDL Cholesterol 19 L, Cholesterol/HDL Ratio 5.63, TSH 1.380 07/22/25 06:28: POC Glucose 149 H 07/22/25 11:30: POC Glucose 214 H Clinical Impression(s) from Imaging Studies Chest CTA 07/21/25 09:27 IMPRESSION: Negative for pulmonary embolus.. Mild interstitial edema. Mild mediastinal adenopathy. Cirrhosis. Echocardiogram 07/22/25 05:55 Interpretation Summary Mild concentric left ventricular hypertrophy. Mildly dilated left ventricle. Mild (1+) posteriorly directed mitral valve insufficiency. Trileaflet aortic valve. Mildly thickened leaflets. Mean peak gradient 8 mmHg. The study was technically difficult. Inferior hypokinesis. Estimated LVEF 55%. Stage I diastolic dysfunction. Ordering Physician: Timoteo Cooper Referring Physician: ALIS DURAN Performed By: Jessica Wright RCS Charges/Coding Visit Charges Inpatient E&M: 36327 Subs Hosp L2 07/22/25 1607 Cosigner Signature (if applicable): CC: ~ Signed [facility]09-07-2025 Discharge summary Author Denicewaylon Leal [facility] Note Date/Time July 21, 2025 3:14pm [facility] Medical Records Department [address] [place] [address] Emergency Department Summary 07/21/25 MR#: [id number] Acct: [id number] Name: LEON RIDER Rep #:[id number] : 1980 45 From: Denice Pineda PCP: Dr. Alis Duran MD Status:ADM IN Location: [place] [address] HPI History of Present Illness Chief Complaint: Chest Pain Informant: patient Narrative Narrative: Patient is a 45-year-old male with history of diabetes, hypertension, cirrhosis due to GLASS presenting for chest pain, shortness of breath, fatigue and continued right leg pain. Patient states that 8 PM last night he developed dullache pressure in his chest. Lasted for couple minutes. He was working at the [employer] at that time. He returned that evening around 9:30 PM but it also stopped spontaneously. Today he is continued to have this sensation. He also has been winded even putting his pants on which is new for him. He notes for the past few months he has been having exercise intolerance and dyspnea on exertion. He also is been having worsening pain of his right lower leg for the past 2 to 3 days. States it is a constant dull ache when he touches it it becomes stabbing and is worse with walking or standing. He had an elevated outpatient D-dimer and venous duplex obtained 2 days ago. D-dimer was elevated however his venous duplex was negative. He has been having about a week of URI symptoms including sore throat and cough. Has been having some chills. Does have chronic swelling of his legs is not sure if it is any worse than normal. Denies any known cardiac history. Denies a history of DVT or PE. Does not take any medications this morning. No other complaints or concerns reported this time [facility] Medical History HTN (hypertension) Diabetes Acid reflux Rectal bleeding Hemorrhoids Home Medications ?Medication ?Instructions ?Recorded ?Last Taken ?Type furosemide 40 mg tablet 40 mg PO QDAY diuretic 01/28 Unknown History lisinopril 5 mg tablet 5 mg PO QDAY bp 01/28/25 Unk nown History metformin 1,000 mg tablet 1,000 mg PO BID diabetes Unknown History sitagliptin phosphate 100 mg 100 mg PO QDAY diabetes 0 01/28/25 Unknown History tablet (Januvia) atorvastatin 20 mg tablet 20 mg PO DAILY cholesterol 0 07/21/25 Unknown History omeprazole 40 mg capsule,delayed 40 mg PO DAILY stomac h 07/21/25 Unknown History release repaglinide 1 mg tablet 1 mg PO BID diabetes 5 Unknown History triamterene 37.5 1 cap PO DAILY diuretic/bp 0 07/21/25 Unknown History mg-hydrochlorothiazide 25 mg capsule Allergy/AdvReac Type Severity Reaction Status Date / Time No Known Allergies Allergy Verified 07/21/25 09:08 Surgical History H/O umbilical hernia repair [place] teeth extracted Social History (Updated 07/21/25 @ 13:33 by Alyssa Ring) household members: spouse housing: house Smoking Status: Never smoker alcohol intake: never substance use type: does not use ROS ROS ED Constitutional Constitutional ED: Reports chills; Denies fever(s) ENT ENT ED: Reports sore throat and other Details: Nasal congestion Cardiovascular Cardiovascular: Reports chest pain; Denies palpitations or racing heartbeat Respiratory/Chest Respiratory/Chest: Reports cough, dyspnea, dyspnea on exertion and sputum Gastrointestinal Gastrointestinal: Reports nausea and other Details: Reports some mild GI symptoms/upset stomach today after eating a banana ; Denies abdominal pain Musculoskeletal Musculoskeletal: Reports other Details: Right lower leg pain Integumentary Denies rash Neurologic Neurologic: Reports weakness Hematologic/Lymphatic Hematologic/Lymphatic: Denies easy bleeding or easy bruising EXAM Physical Exam Const Vital Signs: 07/21/25 09:08 07/21/25 09:22 07/21/25 09:28 Temperature 98.8 F 99.2 F H Temperature Source Temporal Oral Pulse Rate 106 H Respiratory Rate 22 H Respiratory Effort Normal Non-Labored Blood Pressure 151/56 H Blood Pressure Mean 87 Pulse Ox 96 Oxygen Delivery Method Room Air 07/21/25 09:29 07/21/25 10:17 07/21/25 11:00 Temperature Temperature Source Pulse Rate 99 Respiratory Rate 15 Respiratory Effort Blood Pressure 131/63 H 129/49 H Blood Pressure Mean 85 75 Pulse Ox 99 Oxygen Delivery Method Room Air 07/21/25 12:00 Temperature Temperature Source Pulse Rate 86 Respiratory Rate 17 Respiratory Effort Blood Pressure Blood Pressure Mean Pulse Ox 98 Oxygen Delivery Method Positive well nourished and well developed Constitutional Narrative: Mildly ill-appearing General Appearance ED: well developed HEENT Reports moist mucous membranes HEENT Narrative: Normal oropharynx normocephalic Neck supple and no JVD Chest Wall inspection of chest normal and palpation of chest normal Resp Resp Narrative: Mildly tachypneic. Auscultation: Negative for rhonchi, wheezes or diminished lung sounds Cardio regular rhythm Cardio Narrative: Holo-systolic murmur present. 2+ radial and DP pulses present. Rate: tachycardic GI normal to inspection, nondistended, normoactive bowel sounds, soft to palpation and non-tender Extremity Extremity Narrative: Significant chronic appearing edema present of the lower extremities and changesconsistent with lymphedema. Neuro oriented x3 Sensorium / Orientation: awake and alert Motor Exam: general weakness Psych mental status grossly normal Skin Skin Narrative: Erythema and warmth of the right lower leg with no associated lymphangitic streaking. No wounds appreciated. Chronic skin changes in the lower extremities consistent with chronic edema versus lymphedema. MDM MDM MDM Narrative Medical decision making narrative: Patient is evaluated for shortness of breath, chest pressure as well as increased pain in his right lower extremity. He had a recent elevated D-dimer and noted a negative venous duplex 2 days ago. This was reviewed through our system. Differential is broad including pulmonary emboli, cellulitis, CHF, pneumonia, symptomatic anemia, electrolyte derangement and pneumothorax. He denies any black or blood in his stool. CBC shows no leukocytosis he does have anemia with a hemoglobin 8.8. I do not have any recent labs however his hemoglobin last year was 10.4. Is unclear if this is acute and causing his respiratory/cardiac symptoms or chronic. He does have coagulopathy and likely attributed to his cirrhosis. Feel occult is obtained which is negative. His BUN is normal is lower sufficient for occultGI bleeding. Lactate is elevated 3.2 is unclear if this is secondary to infection or associate with his cirrhosis. He does have an elevated bilirubin at 3.82 which is worse his baseline. He is given gentle fluids as clinically hedoes have cellulitis and does meet criteria for sepsis however he is not given afull 30 cc/kg fluid bolus because of his significant edema and concern for acuteoverload as well. His chest CT does not show any pulmonary emboli but does showsome signs of interstitial edema. He currently does not have any increased O2 requirements. High sensitive troponin is normal at 8. Lower suspicion for ACS. Patient will be admitted for further treatment of his cellulitis as well as for his shortness of breath. He does have a a heart murmur and patient is not awareof this. Concern for acute heart failure as well. Case is discussed with hospitalist for admission. History & Record Review Additional record(s) reviewed:: Prior outpatient record (Clinisync labs CMP, A1cand lipid profile, no CBC available. Total bili 2.1) and Prior labs Lab Data Attestation: I reviewed the patient's lab results. Labs: Laboratory Results - last 24 hr 07/21/25 07/21/25 07/21/25 09:18 09:35 10:25 WBC 9.3 RBC 3.35 L Hgb 8.8 L Hct 26.8 L MCV 80.0 MCH 26.3 L MCHC 32.8 RDW Std Deviation 63.7 H RDW Coeff of Melina 22.6 H Plt Count 112 L MPV 10.3 Immature Gran % (Auto) 0.600 Neut % (Auto) 70.4 H Lymph % (Auto) 10.4 L Sandoval % (Auto) 15.8 H Eos % (Auto) 2.3 Baso % (Auto) 0.5 Absolute Neuts (auto) 6.6 Absolute Lymphs (auto) 0.97 Nucleated RBC % 0 Differential Comment SCANNED Polychromasia 1+ Anisocytosis 2+ Microcytosis 1+ Target Cells 1+ PT 20.3 H INR 1.7 APTT 39.4 H Sodium 127 L Potassium 3.7 Chloride 97 L Carbon Dioxide 17.8 L Anion Gap 12 BUN 8 Creatinine 0.66 L Est GFR (MDRD) Non-Af 117 BUN/Creatinine Ratio 12.9 Glucose 168 H Lactic Acid 3.2 H* Calcium 8.1 Magnesium Total Bilirubin 3.82 H Direct Bilirubin AST 42 H ALT 33 Alkaline Phosphatase 109 Troponin T High Sens 8 Troponin T Hi Sens 2 Hr NT pro BNP II 106 Total Protein 6.6 Albumin 2.5 L Globulin 4.1 Albumin/Globulin Ratio 0.6 L TSH 1.550 Urine Color Yellow Urine Clarity Clear Urine pH 6.5 Ur Specific [place] 1.010 Urine Protein 30 H Urine Glucose (UA) Normal Urine Ketones Negative Urine Occult Blood 25 H Urine Nitrite Negative Urine Bilirubin 1 H Urine Urobilinogen 4 H Ur Leukocyte Esterase Negative Urine RBC 0 SEEN Urine WBC 0 SEEN Ur Squamous Epith Cells 0 SEEN Urine Bacteria 0 SEEN Urine Mucus 0 SEEN Blood Type Antibody Screen 07/21/25 07/21/25 11:25 11:56 WBC RBC Hgb Hct MCV MCH MCHC RDW Std Deviation RDW Coeff of Melina Plt Count MPV Immature Gran % (Auto) Neut % (Auto) Lymph % (Auto) Sandoval % (Auto) Eos % (Auto) Baso % (Auto) Absolute Neuts (auto) Absolute Lymphs (auto) Nucleated RBC % Differential Comment Polychromasia Anisocytosis Microcytosis Target Cells PT INR APTT Sodium Potassium Chloride Carbon Dioxide Anion Gap BUN Creatinine Est GFR (MDRD) Non-Af BUN/Creatinine Ratio Glucose Lactic Acid Calcium Magnesium 1.8 Total Bilirubin Direct Bilirubin 1.79 H AST ALT Alkaline Phosphatase Troponin T High Sens Troponin T Hi Sens 2 Hr 7 NT pro BNP II Total Protein Albumin Globulin Albumin/Globulin Ratio TSH Urine Color Urine Clarity Urine pH Ur Specific [place] Urine Protein Urine Glucose (UA) Urine Ketones Urine Occult Blood Urine Nitrite Urine Bilirubin Urine Urobilinogen Ur Leukocyte Esterase Urine RBC Urine WBC Ur Squamous Epith Cells Urine Bacteria Urine Mucus Blood Type B POSITIVE Antibody Screen NEGATIVE Radiography Diagnostic Testing: Clinical Impression(s) from Imaging Studies Chest CTA 07/21/25 09:27 IMPRESSION: Negative for pulmonary embolus.. Mild interstitial edema. Mild mediastinal adenopathy. Cirrhosis. Reading Location: [id number] Rhythm Strip Rhythm Strip: Sinus Tach Rate: 101 Ectopy: None EKG Initial EKG: Attestation: I personally reviewed and interpreted this EKG as follows: Interpretation: Sinus Tachycardia Comments: Sinus tachycardia rate 101 bpm Normal axis Normal intervals Normal ST segments Management Discussion w/another healthcare provider: Hospitalist Discharge Plan Dx/Rx/DC Orders Clinical Impression: Cellulitis of right leg without foot, Chest pain, atypical, Anemia, Hx of cirrhosis, Serum total bilirubin elevated, Cardiac murmur, Elevated lactic acid level Disposition Disposition: Acute Care Hospital [facility] Discharge Date/Time: 07/21/25 12:46 What to do if you have Problems For any increased pain, shortness of breath, bleeding, nausea or vomiting, chestpain, or any unexpected problems, contact your Primary Care Provider. Call [facility] ([phone]) or report to the closest Emergency Room. Call 911 if necessary. 07/21/25 1514 <Electronically signed by Denice Leal DO> Cosigner Signature (if applicable): CC: Dr. Alis Duran MD ~ Signed [facility] Work Phone: [phone]) 522-569809-07-2025 Discharge summary [facility] Medical Records Department [address] [place] [address] Emergency Department Summary 07/21/25 MR#: [id number] Acct: [id number] Name: LEON RIDER Rep #:[id number] : 1980 45 From: Denice Pineda PCP: Dr. Alis Duran MD Status:ADM IN Location: [place] [address] HPI History of Present Illness Chief Complaint: Chest Pain Informant: patient Narrative Narrative: Patient is a 45-year-old male with history of diabetes, hypertension, cirrhosis due to GLASS presenting for chest pain, shortness of breath, fatigue and continued right leg pain. Patient states that 8PM last night he developed dullache pressure in his chest. Lasted for couple minutes. He was working at the [employer] at that time. He returned that evening around 9:30 PM but it also stopped spontaneously. Today he is continued to have this sensation. He also has been winded even putting his pants on which is new for him. He notes for the past few months he has been having exercise intolerance and dyspnea on exertion. He also is been having worsening pain of his right lower leg for the past 2 to 3 days. States it is a constant dull ache when he touches it it becomes stabbing and is worse with walking or standing. He had an elevated outpatient D-dimer and venous duplex obtained 2 days ago. D-dimer was elevated however his venous duplex was negative. He has been having about a week of URI symptoms including sore throat and cough. Has been having some chills. Does have chronic swelling of his legs is not sure if it is any worse than normal. Deniesany known cardiac history. Denies a history of DVT or PE. Does not take any medications this morning. No other complaints or concerns reported this time [facility] Medical History HTN (hypertension) Diabetes Acid reflux Rectal bleeding Hemorrhoids Home Medications ?Medication ?Instructions ?Recorded ?Last Taken ?Type furosemide 40 mg tablet 40 mg PO QDAY diuretic 01/28 Unknown History lisinopril 5 mg tablet 5 mg PO QDAY bp 01/28/25 Unk nown History metformin 1,000 mg tablet 1,000 mg PO BID diabetes Unknown History sitagliptin phosphate 100 mg 100 mg PO QDAY diabetes 0 01/28/25 Unknown History tablet (Januvia) atorvastatin 20 mg tablet 20 mg PO DAILY cholesterol 0 07/21/25 Unknown History omeprazole 40 mg capsule,delayed 40 mg PO DAILY stomac h 07/21/25 Unknown History release repaglinide 1 mg tablet 1 mg PO BID diabetes 5 Unknown History triamterene 37.5 1 cap PO DAILY diuretic/bp 0 07/21/25 Unknown History mg-hydrochlorothiazide 25 mg capsule Allergy/AdvReac Type Severity Reaction Status Date / Time No Known Allergies Allergy Verified 07/21/25 09:08 Surgical History H/O umbilical hernia repair [place] teeth extracted Social History (Updated 07/21/25 @ 13:33 by Alyssa Ring) household members: spouse housing: house Smoking Status: Never smoker alcohol intake: never substance use type: does not use ROS ROS ED Constitutional Constitutional ED: Reports chills; Denies fever(s) ENT ENT ED: Reports sore throat and other Details: Nasal congestion Cardiovascular Cardiovascular: Reports chest pain; Denies palpitations or racing heartbeat Respiratory/Chest Respiratory/Chest: Reports cough, dyspnea, dyspnea on exertion and sputum Gastrointestinal Gastrointestinal: Reports nausea and other Details: Reports some mild GI symptoms/upset stomach today after eating a banana ; Denies abdominal pain Musculoskeletal Musculoskeletal: Reports other Details: Right lower leg pain Integumentary Denies rash Neurologic Neurologic: Reports weakness Hematologic/Lymphatic Hematologic/Lymphatic: Denies easy bleeding or easy bruising EXAM Physical Exam Const Vital Signs: 07/21/25 09:08 07/21/25 09:22 07/21/25 09:28 Temperature 98.8 F 99.2 F H Temperature Source Temporal Oral Pulse Rate 106 H Respiratory Rate 22 H Respiratory Effort Normal Non-Labored Blood Pressure 151/56 H Blood Pressure Mean 87 Pulse Ox 96 Oxygen Delivery Method Room Air 07/21/25 09:29 07/21/25 10:17 07/21/25 11:00 Temperature Temperature Source Pulse Rate 99 Respiratory Rate 15 Respiratory Effort Blood Pressure 131/63 H 129/49 H Blood Pressure Mean 85 75 Pulse Ox 99 Oxygen Delivery Method Room Air 07/21/25 12:00 Temperature Temperature Source Pulse Rate 86 Respiratory Rate 17 Respiratory Effort Blood Pressure Blood Pressure Mean Pulse Ox 98 Oxygen Delivery Method Positive well nourished and well developed Constitutional Narrative: Mildly ill-appearing General Appearance ED: well developed HEENT Reports moist mucous membranes HEENT Narrative: Normal oropharynx normocephalic Neck supple and no JVD Chest Wall inspection of chest normal and palpation of chest normal Resp Resp Narrative: Mildly tachypneic. Auscultation: Negative for rhonchi, wheezes or diminished lung sounds Cardio regular rhythm Cardio Narrative: Holo-systolic murmur present. 2+ radial and DP pulses present. Rate: tachycardic GI normal to inspection, nondistended, normoactive bowel sounds, soft to palpation and non-tender Extremity Extremity Narrative: Significant chronic appearing edema present of the lower extremities and changesconsistent with lymphedema. Neuro oriented x3 Sensorium / Orientation: awake and alert Motor Exam: general weakness Psych mental status grossly normal Skin Skin Narrative: Erythema and warmth of the right lower leg with no associated lymphangitic streaking. No wounds appreciated. Chronic skin changes in the lower extremities consistent with chronic edema versus lymphedema. MDM MDM MDM Narrative Medical decision making narrative: Patient is evaluated for shortness of breath, chest pressure as well as increased pain in his rightlower extremity. He had a recent elevated D-dimer and noted a negative venous duplex 2 days ago. This was reviewed through our system. Differential is broad including pulmonary emboli, cellulitis, CHF, pneumonia, symptomatic anemia, electrolyte derangement and pneumothorax. He denies any black or blood in his stool. CBC shows no leukocytosis he does have anemia with a hemoglobin 8.8. I do not have any recent labs however his hemoglobin last year was 10.4. Is unclear if this is acute and causing his respiratory/cardiac symptoms or chronic. He does have coagulopathy and likely attributed to his cirrhosis. Feel occult is obtained which is negative. His BUN is normal is lower sufficient for occultGI bleeding. Lactate is elevated 3.2 is unclear if this is secondary to infection or associate with his cirrhosis. He does have an elevated bilirubin at 3.82 which is worse his baseline. He is given gentle fluids as clinically hedoes have cellulitis and does meet criteria for sepsis however he is not given afull 30 cc/kg fluid bolus becauseof his significant edema and concern for acuteoverload as well. His chest CT does not show any pulmonary emboli but does showsome signs of interstitial edema. He currently does not have any increasedO2 requirements. High sensitive troponin is normal at 8. Lower suspicion for ACS. Patient will be admitted for further treatment of his cellulitis as well as for his shortness of breath. He does have a a heart murmur and patient is not awareof this. Concern for acute heart failureas well. Case is discussed with hospitalist for admission. History & Record Review Additional record(s) reviewed:: Prior outpatient record (Clinisync labs CMP, A1cand lipid profile, no CBC available. Total bili 2.1) and Prior labs Lab Data Attestation: I reviewed the patient's lab results. Labs: Laboratory Results - last 24 hr 07/21/25 07/21/25 07/21/25 09:18 09:35 10:25 WBC 9.3 RBC 3.35 L Hgb 8.8 L Hct 26.8 L MCV 80.0 MCH 26.3 L MCHC 32.8 RDW Std Deviation 63.7 H RDW Coeff of Melina 22.6 H Plt Count 112 L MPV 10.3 Immature Gran % (Auto) 0.600 Neut % (Auto) 70.4 H Lymph % (Auto) 10.4 L Sandoval % (Auto) 15.8 H Eos % (Auto) 2.3 Baso % (Auto) 0.5 Absolute Neuts (auto) 6.6 Absolute Lymphs (auto) 0.97 Nucleated RBC % 0 Differential Comment SCANNED Polychromasia 1+ Anisocytosis 2+ Microcytosis 1+ Target Cells 1+ PT 20.3 H INR 1.7 APTT 39.4 H Sodium 127 L Potassium 3.7 Chloride 97 L Carbon Dioxide 17.8 L Anion Gap 12 BUN 8 Creatinine 0.66 L Est GFR (MDRD) Non-Af 117 BUN/Creatinine Ratio 12.9 Glucose 168 H Lactic Acid 3.2 H* Calcium 8.1 Magnesium Total Bilirubin 3.82 H Direct Bilirubin AST 42 H ALT 33 Alkaline Phosphatase 109 Troponin T High Sens 8 Troponin T Hi Sens 2 Hr NT pro BNP II 106 Total Protein 6.6 Albumin 2.5 L Globulin 4.1 Albumin/Globulin Ratio 0.6 L TSH 1.550 Urine Color Yellow Urine Clarity Clear Urine pH 6.5 Ur Specific [place] 1.010 Urine Protein 30 H Urine Glucose (UA) Normal Urine Ketones Negative Urine Occult Blood 25 H Urine Nitrite Negative Urine Bilirubin 1 H Urine Urobilinogen 4 H Ur Leukocyte Esterase Negative Urine RBC 0 SEEN Urine WBC 0 SEEN Ur Squamous Epith Cells 0 SEEN Urine Bacteria 0 SEEN Urine Mucus 0 SEEN Blood Type Antibody Screen 07/21/25 07/21/25 11:25 11:56 WBC RBC Hgb Hct MCV MCH MCHC RDW Std Deviation RDW Coeff of Melina Plt Count MPV Immature Gran % (Auto) Neut % (Auto) Lymph % (Auto) Sandoval % (Auto) Eos % (Auto) Baso % (Auto) Absolute Neuts (auto) Absolute Lymphs (auto) Nucleated RBC % Differential Comment Polychromasia Anisocytosis Microcytosis Target Cells PT INR APTT Sodium Potassium Chloride Carbon Dioxide Anion Gap BUN Creatinine Est GFR (MDRD) Non-Af BUN/Creatinine Ratio Glucose Lactic Acid Calcium Magnesium 1.8 Total Bilirubin Direct Bilirubin 1.79 H AST ALT Alkaline Phosphatase Troponin T High Sens Troponin T Hi Sens 2 Hr 7 NT pro BNP II Total Protein Albumin Globulin Albumin/Globulin Ratio TSH Urine Color Urine Clarity Urine pH Ur Specific [place] Urine Protein Urine Glucose (UA) Urine Ketones Urine Occult Blood Urine Nitrite Urine Bilirubin Urine Urobilinogen Ur Leukocyte Esterase Urine RBC Urine WBC Ur Squamous Epith Cells Urine Bacteria Urine Mucus Blood Type B POSITIVE Antibody Screen NEGATIVE Radiography Diagnostic Testing: Clinical Impression(s) from Imaging Studies Chest CTA 07/21/25 09:27 IMPRESSION: Negative for pulmonary embolus.. Mild interstitial edema. Mild mediastinal adenopathy. Cirrhosis. Reading Location: [facility] Rhythm Strip Rhythm Strip: Sinus Tach Rate: 101 Ectopy: None EKG Initial EKG: Attestation: I personally reviewed and interpreted this EKG as follows: Interpretation: Sinus Tachycardia Comments: Sinus tachycardia rate 101 bpm Normal axis Normal intervals Normal ST segments Management Discussion w/another healthcare provider: Hospitalist Discharge Plan Dx/Rx/DC Orders Clinical Impression: Cellulitis of right leg without foot, Chest pain, atypical, Anemia, Hx of cirrhosis, Serum total bilirubin elevated, Cardiac murmur, Elevated lactic acid level Disposition Disposition: Acute Care Hospital [facility] Discharge Date/Time: 07/21/25 12:46 What to do if you have Problems For any increased pain, shortness of breath, bleeding, nausea or vomiting, chestpain, or any unexpected problems, contact your Primary Care Provider. Call [facility] ([phone]) or report tothe closest Emergency Room. Call 911 if necessary. 07/21/25 1514 Cosigner Signature (if applicable): CC: Dr. Alis Duran MD ~ Signed [facility]09-07-2025 History and physical note Author Timoteo Cooper [facility] Note Date/Time July 21, 2025 12:42pm [facility] Medical Records Department [address] [place] [address] H&P Exam - Hospitalist 07/21/25 1150 MR#: [id number] Acct: [id number] Name: LEON RIDER Rep #:[id number] : 1980 45 From: Timoteo Mccarthy PCP: Dr. Alis Duran MD Status:ADM IN Location: [facility] [id number] HPI - General General Date of Admission: 07/21/25 Date of Service: 07/21/25 Chief Complaint: Atypical chest pain about 2 times last night. HPI Narrative LEON RIDER, is a 45 M with multiple comorbidities came to ED after he had 2- 3 times chest pain last night. Chest pain he felt like localized, pressure- likechild sitting on his chest. No radiation. About 5-6 times/10 in intensity. Patient is not good historian and does not give/remember chronological order of his symptoms, frequency or number of times. He further said he has shortness ofbreath for several weeks, not getting better more with ADL. He has morbid obesity and uses CPAP and has chronic bilateral lower extremity lymphedema. He denies any passing out or fall. On last Tuesday he went to the PCP from where he was sent to ED for right venous duplex rule out DVT and was ruled out. Patient says he also has cough for about2 to 3 months, not clear about his sputum states sometimes. He is not sure about fever but felt like cold several days ago. He is vague historian He was diagnosed with cirrhosis probably 7 to 10 years ago. 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 [facility] Medical History HTN (hypertension) Diabetes Acid reflux Rectal bleeding Hemorrhoids Home Medications ?Medication ?Instructions ?Recorded ?Last Taken ?Type Diltiazem 10mg/Lidocaine 50mg See Rx Instructions VT . BID #30 01/28/25 Unknown Rx Suppository 30 supp suppository supp furosemide 40 mg tablet 40 mg PO QDAY 01/28/25 Unkno wn History lisinopril 5 mg tablet 5 mg PO QDAY 01/28/25 Unknow n History metformin 1,000 mg tablet 1,000 mg PO BID 01/28/25 Unk nown History sitagliptin phosphate 100 mg 100 mg PO QDAY 01/28/25 U nknown History tablet (Januvia) atorvastatin 20 mg tablet 20 mg PO DAILY 07/21/25 Unkn own History omeprazole 40 mg capsule,delayed 40 mg PO DAILY Unknown History release repaglinide 1 mg tablet 1 mg PO BID 07/21/25 Unknown History triamterene 37.5 1 cap PO DAILY 07/21/25 Unkn own History mg-hydrochlorothiazide 25 mg capsule Allergy/AdvReac Type Severity Reaction Status Date / Time No Known Allergies Allergy Verified 07/21/25 09:08 Surgical History H/O umbilical hernia repair [place] teeth extracted Social History household members: spouse housing: house Smoking Status: Never smoker alcohol intake: never substance use type: does not use ROS ROS Narrative Constitutional: Reports fatigue and weakness. No clear history of fever HEENT: Reports systems reviewed and no addt'l complaints, except as documented Respiratory/Chest: As described in HPI. Uses CPAP. CVS: Left-sided localized chest pain 2 times in the last night. No radiation. As described in HPI. Gastrointestinal: Denies coffee ground emesis, hematemesis or vomiting Genitourinary: Denies burning urination or new urinary tract symptoms Musculoskeletal: Difficulty in ambulation. Chronic lower extremity swelling Neurologic: Denies seizure-like symptoms. skin: No ulcer. No rash Endocrinology: Reports systems reviewed and no addt'l complaints, except as documented Hematologic/Lymphatic: Reports systems reviewed and no addt'l complaints, exceptas documented Rest 14 ROS are negative except as mentioned in HPI Vital Signs Vital Signs Vital Signs: 07/21/25 09:08 07/21/25 09:22 07/21/25 09:28 Temperature 98.8 F 99.2 F H Temperature Source Temporal Oral Pulse Rate 106 H Respiratory Rate 22 H Respiratory Effort Normal Non-Labored Blood Pressure 151/56 H Blood Pressure Mean 87 Pulse Ox 96 Oxygen Delivery Method Room Air 07/21/25 09:29 07/21/25 10:17 07/21/25 11:00 Temperature Temperature Source Pulse Rate 99 Respiratory Rate 15 Respiratory Effort Blood Pressure 131/63 H 129/49 H Blood Pressure Mean 85 75 Pulse Ox 99 Oxygen Delivery Method Room Air Weight Weight: 388 lb 7.272 oz Body Mass Index (BMI) 54.1 Physical Exam Narrative General: Alert, Oriented x3, Cooperative. Morbid obesity BMI 54.2 kg/m? HEENT: Atraumatic, PERRLA, EOMI, Normocephalic. Oral: Deep oropharyngeal history could not be visualized Neck: Supple, No JVD, Negative Carotid Bruits Chest wall/Lungs: Air entry severely diminished in bilateral lung bases. Mild crepitation in right lung base Cardiovascular: Regular rate and rhythm, Normal S1,S2, No M/G/R Abdomen: Bowel Sounds Present, Soft, Non Tender, Non-Distended : No dysuria. No renal angle tenderness. No suprapubic tenderness. Extremities: No edema, Capillary Refill Less than 3 Seconds Skin: Redness/erythema present over right calf area Musculoskeletal: Tenderness in right calf. Bilateral lower extremity lymphedemachronic. ROM restricted over knees and hip joints Neurological: Cranial nerves II-XII grossly intact, DTR 2+/4. No acute focal neurological deficit. Psych/Mental Status: Flat affect Results Lab / Micro Data 07/21/25 09:18 07/21/25 09:18 Labs: Laboratory Results - last 24 hr 07/21/25 09:18: WBC 9.3, RBC 3.35 L, Hgb 8.8 L, Hct 26.8 L, MCV 80.0, MCH 26.3 L, MCHC 32.8, RDW Std Deviation 63.7 H, RDW Coeff of Melina 22.6 H, Plt Count 112 L,MPV 10.3, Immature Gran % (Auto) 0.600, Neut % (Auto) 70.4 H, Lymph % (Auto) 10.4 L, Sandoval % (Auto) 15.8 H, Eos % (Auto) 2.3, Baso % (Auto) 0.5, Absolute Neuts (auto) 6.6, Absolute Lymphs (auto) 0.97, Nucleated RBC % 0, Differential Comment SCANNED, Polychromasia 1+, Anisocytosis 2+, Microcytosis 1+, Target Cells 1+, Sodium 127 L, Potassium 3.7, Chloride 97 L, Carbon Dioxide 17.8 L, Anion Gap 12, BUN 8, Creatinine 0.66 L, Est GFR (MDRD) Non-Af 117, BUN/Creatinine Ratio 12.9, Glucose 168 H, Calcium 8.1, Total Bilirubin 3.82 H, AST 42 H, ALT 33, Alkaline Phosphatase 109, Troponin T High Sens 8, NT pro BNP II106, Total Protein 6.6, Albumin 2.5 L, Globulin 4.1, Albumin/Globulin Ratio 0.6 L, TSH 1.550 07/21/25 09:35: PT 20.3 H, INR 1.7, APTT 39.4 H, Lactic Acid 3.2 H* Micro: Microbiology 07/21/25 09:38 Mucosa - Nose SARS-CoV-2, Influenza & RSV (PCR) - Final 07/21/25 10:25 Stool Stool Occult Blood (GIORGIO) - Final Imaging Radiology Impression Chest CTA 07/21/25 09:27 IMPRESSION: Negative for pulmonary embolus.. Mild interstitial edema. Mild mediastinal adenopathy. Cirrhosis. Reading Location: [id number] Assessment & Plan Assessment/Plan (1) Cellulitis: QUALIFIERS: Site of cellulitis: extremity Site of cellulitis of extremity: lower extremity Laterality: right Qualified Code(s): L03.115 - Cellulitis of right lower limb (2) Chest pain, atypical: PLAN: Plan This is 45-year-old gentleman admitted with chest pain last night and several weeks of shortness of breath yesterday 1. Atypical chest pain and SOB probably due to heart failure exacerbation: Patient is being admitted in PCU. First troponin 8, second pending. proBNP 106but may be falsely normal/low due to morbid obesity. Chest CTA negative for pulmonary embolism and earlier venous duplex were negative for acute DVT. It shows mild/trivial edema, mild mediastinal adenopathy and cirrhosis. Lactic acid elevated probably due to ineffective circulation/venous congestion. Started on furosemide 40 mg IV twice daily. ED physician ordered 1 L normal saline bolus. Heart failure core measures including intake and output, fluid restriction less than 1500 mL, daily weight monitoring, kidney and electrolytes monitoring. 2D echo ordered for tomorrow a.m. Twelve-lead EKG sinus tachycardia 101 bpm, QTc 479 ms. No previous EKG to compare. 2. RLE cellulitis with bilateral chronic venous hypertension and lymphedema: Right lower leg is tender and edematous slightly more than LLE. Venous duplex of right lower extremity negative for acute DVT. It shows valvular competence possible deep venous system. Started on IV ceftriaxone after patient got IV cefazolin in the ED. No open wound to culture. 3. Decompensated MASLD cirrhosis with mild perihepatic ascites, thrombocytopenia and hypotonic hypervolemic hyponatremia: Albumin 2.5, platelet count 112K. T. bili 3.82, AST 42. ALT normal. Right upper quadrant sonogram ordered. 4. DM type II: Glucose is elevated 168. Patient on multiple oral antidiabetic medications which are held. Started on Lantus 10 units p.o. daily. Accu-Chek before meals and at bedtime with Humalog sliding scale coverage and hypoglycemia protocol. 5. Hypertension: Blood pressure is in normal range though it was elevated in the ED. 6. Other comorbidities include GERD, anal fissure/hemorrhoid: On PPI. ContinuePPI. Saw Dr. Lorie Willson for anal fissure and was advised sitz bath, diltiazem and lidocaine suppository and avoid constipation. 7. Morbid obesity with obstructive sleep apnea/possible obesity hypoventilationsyndrome: Patient uses CPAP at home, continue Living will/advanced directive/end of life care: Patient does not have living will or advanced directive. His is next of kin. After discussion of benefits/risks procedures involved with full code, DNR CC arrest and DNR CC, the patient opted for full code. Patient does want artificial life support including intubation, tube feed, ventilator and/chest compression, central venous catheter, vasopressor and DC shock if needed Total time spent in [id number] encounter in discussion of advanced directive 17 minutes. Microbiology Past 72 Hours 07/21/25 09:38 Mucosa - Nose SARS-CoV-2, Influenza & RSV (PCR) - Final 07/21/25 10:25 Stool Stool Occult Blood (GIORGIO) - Final Laboratory Results 07/21/25 09:18: WBC 9.3, RBC 3.35 L, Hgb 8.8 L, Hct 26.8 L, MCV 80.0, MCH 26.3 L, MCHC 32.8, RDW Std Deviation 63.7 H, RDW Coeff of Melina 22.6 H, Plt Count 112 L,MPV 10.3, Immature Gran % (Auto) 0.600, Neut % (Auto) 70.4 H, Lymph % (Auto) 10.4 L, Sandoval % (Auto) 15.8 H, Eos % (Auto) 2.3, Baso % (Auto) 0.5, Absolute Neuts (auto) 6.6, Absolute Lymphs (auto) 0.97, Nucleated RBC % 0, Differential Comment SCANNED, Polychromasia 1+, Anisocytosis 2+, Microcytosis 1+, Target Cells 1+, Sodium 127 L, Potassium 3.7, Chloride 97 L, Carbon Dioxide 17.8 L, Anion Gap 12, BUN 8, Creatinine 0.66 L, Est GFR (MDRD) Non-Af 117, BUN/Creatinine Ratio 12.9, Glucose 168 H, Calcium 8.1, Total Bilirubin 3.82 H, AST 42 H, ALT 33, Alkaline Phosphatase 109, Troponin T High Sens 8, NT pro BNP II106, Total Protein 6.6, Albumin 2.5 L, Globulin 4.1, Albumin/Globulin Ratio 0.6 L, TSH 1.550 07/21/25 09:35: PT 20.3 H, INR 1.7, APTT 39.4 H, Lactic Acid 3.2 H* 07/21/25 10:25: Urine Color Yellow, Urine Clarity Clear, Urine pH 6.5, Ur Specific [place] 1.010, Urine Protein 30 H, Urine Glucose (UA) Normal, Urine Ketones Negative, Urine Occult Blood 25 H, Urine Nitrite Negative, Urine Bilirubin 1 H, Urine Urobilinogen 4 H, Ur Leukocyte Esterase Negative, Urine RBC0 SEEN, Urine WBC 0 SEEN, Ur Squamous Epith Cells 0 SEEN, Urine Bacteria 0 SEEN,Urine Mucus 0 SEEN 07/21/25 11:25: Blood Type B POSITIVE, Antibody Screen Pending 07/21/25 11:56: Magnesium Pending, Direct Bilirubin Pending, Troponin T Hi Sens 2 Hr Pending Clinical Impression(s) from Imaging Studies Chest CTA 07/21/25 09:27 IMPRESSION: Negative for pulmonary embolus.. Mild interstitial edema. Mild mediastinal adenopathy. Cirrhosis. Charges/Coding Visit Charges Inpatient E&M: 51094 Init Hosp L3 Procedures Hospitalists Procedures: 02586 Advncd Care Plan 30 Min 07/21/25 1242 <Electronically signed by Timoteo Cooper MD> Cosigner Signature (if applicable): CC: Dr. Alis Duran MD; Dr. Timoteo Cooper MD~ Signed [facility] Work Phone: [phone]) [phone] Evaluation note* Diagnosis Onset Date Resolution Status Admit Date Acute on chronic heart failure with preserved ejection fraction acute July 21, 2025 12:11pm Anemia acute July 21, 2025 12:11pm Cellulitis acute July 21, 2025 12:11pm Cellulitis of right leg without foot acute July 21 025 12:11pm Chest pain, atypical acute Jul 12:11pm Elevated lactic acid level acute July 21, 2025 12:11pm Hx of cirrhosis acute July 21, 2025 12:11pm Serum total bilirubin elevated acute July 21 025 12:11pm [facility] Work Phone: [phone] 261-181409-07-2025 Evaluation note* Diagnosis Onset Date Resolution Status Admit Date Cellulitis of right leg without foot acute July 21, 2 025 12:11pm Serum total bilirubin elevated acute July 21 12:11pm Acute on chronic heart failure with preserved ejection fraction resolved July 21, 2025 12:11pm Chest pain, atypical resolved Jul 12:11pm Elevated lactic acid level resolved July 21, 2025 12:11pm Anemia inactive July 21, 2025 12:11pm Hx of cirrhosis inactive July 21, 2025 12:11pm Cellulitis deleted July 21, 2025 12:11pm Anemia noneactive July 8:21am [facility] Work Phone: [phone] 291-713209-07-2025 Evaluation note* Diagnosis Onset Date Resolution Status Admit Date Cellulitis of right leg without foot acute July 21, 025 12:11pm Serum total bilirubin elevated acute July 21 025 12:11pm Acute on chronic heart failure with preserved ejection fraction resolved July 21, 2025 12:11pm Chest pain, atypical resolved Jul 12:11pm Elevated lactic acid level resolved July 21, 2025 12:11pm Anemia inactive July 21, 2025 12:11pm Hx of cirrhosis inactive July 21, 2025 12:11pm Cellulitis deleted July 21, 2025 12:11pm Anemia noneactive July 8:21am Iron deficiency anemia acute Oc 2024 1:58pm Positive fecal occult blood test acute August 19 1:58pm Anemia noneactive August 19 1:58pm [facility] Work Phone: [phone] 419-177609-07-2025 History and physical note [facility] Medical Records Department [address] [place] [address] H&P Exam - Hospitalist 07/21/25 1150 MR#: [id number] Acct: [id number] Name: LEON RIDER Rep #:[id number] : 1980 45 From: Timoteo Mccarthy PCP: Dr. Alis Duran MD Status:ADM IN Location: [address] HPI - General General Date of Admission: 07/21/25 Date of Service: 07/21/25 Chief Complaint: Atypical chest pain about 2 times last night. HPI Narrative LEON RIDER, is a 45 M with multiple comorbidities came to ED after he had 2- 3 times chest pain last night. Chest pain he felt like localized, pressure- likechild sitting on his chest. No radiation. About 5-6 times/10 in intensity. Patient is not good historian and does not give/remember chronological order of his symptoms, frequency or number of times. He further said he has shortness ofbreath for several weeks, not getting better more with ADL. He has morbid obesity and uses CPAP and has chronic bilateral lower extremity lymphedema. He denies any passing out or fall. On last Tuesday he went to the PCP from where he was sent to ED for right venous duplex rule out DVTand was ruled out. Patient says he also has cough for about2 to 3 months, not clear about his sputum states sometimes. He is not sure about fever but felt like cold several days ago. He is vague historian He was diagnosed with cirrhosis probably 7 to 10 years ago. 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 [facility] Medical History HTN (hypertension) Diabetes Acid reflux Rectal bleeding Hemorrhoids Home Medications ?Medication ?Instructions ?Recorded ?Last Taken ?Type Diltiazem 10mg/Lidocaine 50mg See Rx Instructions [place] . BID #30 01/28/25 Unknown Rx Suppository 30 supp suppository supp furosemide 40 mg tablet 40 mg PO QDAY 01/28/25 Unkno wn History lisinopril 5 mg tablet 5 mg PO QDAY 01/28/25 Unknow n History metformin 1,000 mg tablet 1,000 mg PO BID 01/28/25 Unk nown History sitagliptin phosphate 100 mg 100 mg PO QDAY 01/28/25 U nknown History tablet (Januvia) atorvastatin 20 mg tablet 20 mg PO DAILY 07/21/25 Unkn own History omeprazole 40 mg capsule,delayed 40 mg PO DAILY Unknown History release repaglinide 1 mg tablet 1 mg PO BID 07/21/25 Unknown History triamterene 37.5 1 cap PO DAILY 07/21/25 Unkn own History mg-hydrochlorothiazide 25 mg capsule Allergy/AdvReac Type Severity Reaction Status Date / Time No Known Allergies Allergy Verified 07/21/25 09:08 Surgical History H/O umbilical hernia repair [place] teeth extracted Social History household members: spouse housing: house Smoking Status: Never smoker alcohol intake: never substance use type: does not use ROS ROS Narrative Constitutional: Reports fatigue and weakness. No clear history of fever HEENT: Reports systems reviewed and no addt'l complaints, except as documented Respiratory/Chest: As described in HPI. Uses CPAP. CVS: Left-sided localized chest pain 2 times in the last night. No radiation. As described in HPI. Gastrointestinal: Denies coffee ground emesis, hematemesis or vomiting Genitourinary: Denies burning urination or new urinary tract symptoms Musculoskeletal: Difficulty in ambulation. Chronic lower extremity swelling Neurologic: Denies seizure-like symptoms. skin: No ulcer. No rash Endocrinology: Reports systems reviewed and no addt'l complaints, except as documented Hematologic/Lymphatic: Reports systems reviewed and no addt'l complaints, exceptas documented Rest 14 ROS are negative except as mentioned in HPI Vital Signs Vital Signs Vital Signs: 07/21/25 09:08 07/21/25 09:22 07/21/25 09:28 Temperature 98.8 F 99.2 F H Temperature Source Temporal Oral Pulse Rate 106 H Respiratory Rate 22 H Respiratory Effort Normal Non-Labored Blood Pressure 151/56 H Blood Pressure Mean 87 Pulse Ox 96 Oxygen Delivery Method Room Air 07/21/25 09:29 07/21/25 10:17 07/21/25 11:00 Temperature Temperature Source Pulse Rate 99 Respiratory Rate 15 Respiratory Effort Blood Pressure 131/63 H 129/49 H Blood Pressure Mean 85 75 Pulse Ox 99 Oxygen Delivery Method Room Air Weight Weight: 388 lb 7.272 oz Body Mass Index (BMI) 54.1 Physical Exam Narrative General: Alert, Oriented x3, Cooperative. Morbid obesity BMI 54.2 kg/m? HEENT: Atraumatic, PERRLA, EOMI, Normocephalic. Oral: Deep oropharyngeal history could not be visualized Neck: Supple, No JVD, Negative Carotid Bruits Chest wall/Lungs: Air entry severely diminished in bilateral lung bases. Mild crepitation in right lung base Cardiovascular: Regular rate and rhythm, Normal S1,S2, No M/G/R Abdomen: Bowel Sounds Present, Soft, Non Tender, Non-Distended : No dysuria. No renal angle tenderness. No suprapubic tenderness. Extremities: No edema, Capillary Refill Less than 3 Seconds Skin: Redness/erythema present over right calf area Musculoskeletal: Tenderness in right calf. Bilateral lower extremity lymphedemachronic. ROM restricted over knees and hip joints Neurological: Cranial nerves II-XII grossly intact, DTR 2+/4. No acute focal neurological deficit. Psych/Mental Status: Flat affect Results Lab / Micro Data 07/21/25 09:18 07/21/25 09:18 Labs: Laboratory Results - last 24 hr 07/21/25 09:18: WBC 9.3, RBC 3.35 L, Hgb 8.8 L, Hct 26.8 L, MCV 80.0, MCH 26.3 L, MCHC 32.8, RDW Std Deviation 63.7 H, RDW Coeff of Melina 22.6 H, Plt Count 112 L,MPV 10.3, Immature Gran % (Auto) 0.600,Neut % (Auto) 70.4 H, Lymph % (Auto) 10.4 L, Sandoval % (Auto) 15.8 H, Eos % (Auto) 2.3, Baso % (Auto) 0.5, Absolute Neuts (auto) 6.6, Absolute Lymphs (auto) 0.97, Nucleated RBC % 0, Differential CommentSCANNED, Polychromasia 1+, Anisocytosis 2+, Microcytosis 1+, Target Cells 1+, Sodium 127 L, Potassium 3.7, Chloride 97 L, Carbon Dioxide 17.8 L, Anion Gap 12, BUN 8, Creatinine 0.66 L, Est GFR (MDRD)Non-Af 117, BUN/Creatinine Ratio 12.9, Glucose 168 H, Calcium 8.1, Total Bilirubin 3.82 H, AST 42 H, ALT 33, Alkaline Phosphatase 109, Troponin T High Sens 8, NT pro BNP II106, Total Protein 6.6, Albumin 2.5 L, Globulin 4.1, Albumin/Globulin Ratio 0.6 L, TSH 1.550 07/21/25 09:35: PT 20.3 H, INR 1.7, APTT 39.4 H, Lactic Acid 3.2 H* Micro: Microbiology 07/21/25 09:38 Mucosa - Nose SARS-CoV-2, Influenza & RSV (PCR) - Final 07/21/25 10:25 Stool Stool Occult Blood (GIORGIO) - Final Imaging Radiology Impression Chest CTA 07/21/25 09:27 IMPRESSION: Negative for pulmonary embolus.. Mild interstitial edema. Mild mediastinal adenopathy. Cirrhosis. Reading Location: [facility] Assessment & Plan Assessment/Plan (1) Cellulitis: QUALIFIERS: Site of cellulitis: extremity Site of cellulitis of extremity: lower extremity Laterality: right Qualified Code(s): L03.115 - Cellulitis of right lower limb (2) Chest pain, atypical: PLAN: Plan This is 45-year-old gentleman admitted with chest pain last night and several weeks of shortness ofbreath yesterday 1. Atypical chest pain and SOB probably due to heart failure exacerbation: Patient is being admitted in PCU. First troponin 8, second pending. proBNP 106but may be falsely normal/low due to morbid obesity. Chest CTA negative for pulmonary embolism and earlier venous duplex were negative for acute DVT. It shows mild/trivial edema, mild mediastinal adenopathy and cirrhosis. Lactic acid elevated probably due to ineffective circulation/venous congestion. Started on furosemide 40 mg IV twice daily. ED physician ordered 1 L normal saline bolus. Heart failure core measures including intake and output, fluid restriction less than 1500 mL, daily weight monitoring, kidney and electrolytes monitoring.2D echo ordered for tomorrow a.m. Twelve-lead EKG sinus tachycardia 101 bpm, QTc 479 ms. No previous EKG to compare. 2. RLE cellulitis with bilateral chronic venous hypertension and lymphedema: Right lower leg is tender and edematous slightly more than LLE. Venous duplex of right lower extremity negative for acute DVT. It shows valvular competence possible deep venous system. Started on IV ceftriaxone after patient got IV cefazolin in the ED. No open wound to culture. 3. Decompensated MASLD cirrhosis with mild perihepatic ascites, thrombocytopenia and hypotonic hypervolemic hyponatremia: Albumin 2.5, platelet count 112K. T. bili 3.82, AST 42. ALT normal. Right upper quadrant sonogram ordered. 4. DM type II: Glucose is elevated 168. Patient on multiple oral antidiabetic medications which areheld. Started on Lantus 10 units p.o. daily. Accu-Chek before meals and at bedtime with Humalog sliding scale coverage and hypoglycemia protocol. 5. Hypertension: Blood pressure is in normal range though it was elevated in the ED. 6. Other comorbidities include GERD, anal fissure/hemorrhoid: On PPI. ContinuePPI. Saw Dr. Lorie Willsno for anal fissure and was advised sitz bath, diltiazem and lidocaine suppository and avoid constipation. 7. Morbid obesity with obstructive sleep apnea/possible obesity hypoventilationsyndrome: Patient uses CPAP at home, continue Living will/advanced directive/end of life care: Patient does not have living will or advanced directive. His is next of kin. After discussion of benefits/risks procedures involved with full code, DNR CC arrest and DNR CC, the patient opted for full code. Patient does want artificial life support including intubation, tube feed, ventilator and/chest compression, central venous catheter, vasopressor and DC shock if needed Total time spent in [id number] encounter in discussion of advanced directive 17 minutes. Microbiology Past 72 Hours 07/21/25 09:38 Mucosa - Nose SARS-CoV-2, Influenza & RSV (PCR) - Final 07/21/25 10:25 Stool Stool Occult Blood (GIORGIO) - Final Laboratory Results 07/21/25 09:18: WBC 9.3, RBC 3.35 L, Hgb 8.8 L, Hct 26.8 L, MCV 80.0, MCH 26.3 L, MCHC 32.8, RDW Std Deviation 63.7 H, RDW Coeff of Melina 22.6 H, Plt Count 112 L,MPV 10.3, Immature Gran % (Auto) 0.600,Neut % (Auto) 70.4 H, Lymph % (Auto) 10.4 L, Sandoval % (Auto) 15.8 H, Eos % (Auto) 2.3, Baso % (Auto) 0.5, Absolute Neuts (auto) 6.6, Absolute Lymphs (auto) 0.97, Nucleated RBC % 0, Differential CommentSCANNED, Polychromasia 1+, Anisocytosis 2+, Microcytosis 1+, Target Cells 1+, Sodium 127 L, Potassium 3.7, Chloride 97 L, Carbon Dioxide 17.8 L, Anion Gap 12, BUN 8, Creatinine 0.66 L, Est GFR (MDRD)Non-Af 117, BUN/Creatinine Ratio 12.9, Glucose 168 H, Calcium 8.1, Total Bilirubin 3.82 H, AST 42 H, ALT 33, Alkaline Phosphatase 109, Troponin T High Sens 8, NT pro BNP II106, Total Protein 6.6, Albumin 2.5 L, Globulin 4.1, Albumin/Globulin Ratio 0.6 L, TSH 1.550 07/21/25 09:35: PT 20.3 H, INR 1.7, APTT 39.4 H, Lactic Acid 3.2 H* 07/21/25 10:25: Urine Color Yellow, Urine Clarity Clear, Urine pH 6.5, Ur Specific [place] 1.010, Urine Protein 30 H, Urine Glucose (UA) Normal, Urine Ketones Negative, Urine Occult Blood 25 H, UrineNitrite Negative, Urine Bilirubin 1 H, Urine Urobilinogen 4 H, Ur Leukocyte Esterase Negative, Urine RBC0 SEEN, Urine WBC 0 SEEN, Ur Squamous Epith Cells 0 SEEN, Urine Bacteria 0 SEEN,Urine Mucus 0 SEEN 07/21/25 11:25: Blood Type B POSITIVE, Antibody Screen Pending 07/21/25 11:56: Magnesium Pending, Direct Bilirubin Pending, Troponin T Hi Sens 2 Hr Pending Clinical Impression(s) from Imaging Studies Chest CTA 07/21/25 09:27 IMPRESSION: Negative for pulmonary embolus.. Mild interstitial edema. Mild mediastinal adenopathy. Cirrhosis. Charges/Coding Visit Charges Inpatient E&M: 96481 Init Hosp L3 Procedures Hospitalists Procedures: 60043 Advncd Care Plan 30 Min 07/21/25 1242 Cosigner Signature (if applicable): CC: Dr. Alis Duran MD; Dr. Timoteo Cooper MD~ Signed [facility]09-07-2025 Radiology Diagnostic study note [facility] Imaging Services [address] [place] [address] [id number] CTA Chest W/WO Contrast MR#: [id number] Acct: [id number] Name: LEON RIDER Rep #: [id number] : 1980 M 45 From: Giorgio Salinas MD PCP: Dr. Alis Duran MD Status: REG ER Study:CTA Chest W/WO Contrast Date of Exam: 07/21/25 Exam# [id number] Ordering Dr: Krystin Leal DO PROCEDURE: CTA CHEST W/WO CONTRAST 07/21/2025 REASON FOR EXAM: SOB, ELEVATED DIMER TECHNIQUE: Procedure Code: CTCTACHWW Modality: CT Procedure: CTA CHEST W/WO CONTRAST Multiplanar Sagittal and Coronal images were obtained. CONTRAST: Isovue 370 VOLUME: 100 mL One or more dose reduction techniques were used (e.g., Automated exposure control, adjustment of the mA and/or kV according to patient size, use of iterative reconstruction technique). RADIATION DOSE SUMMARY: CTDlvol: 62 mGy DLP: 1140 mGycm COMPARISON: None. # of known CTs in the past 12 months: 0 # of known Cardiac Nuclear Medicine Studies in the past 12 months: 0 FINDINGS: Thyroid gland: Negative. Lungs: Scattered ground-glass attenuation interstitial prominence both lungs. No pulmonary nodules or masses. Pleura: Negative for pleural effusion or pneumothorax. Airways: Imaged bronchi and trachea negative. Mediastinum: Several upper limits of normal aortopulmonary window lymph node. Subcarinal fullness 13 mm. No definitive hilar lesion. Lymph nodes: No axillary adenopathy. Heart and Vasculature: Pulmonary arteries adequately opacify with intra luminal contrast. No thrombus. Heart normal size. Negative for vascular calcifications of the thoracic aorta. Coronary Artery Calcifications: Mild vascular calcifications of the coronary arteries Upper Abdomen: Cirrhosis of the liver which is nodular and shrunken. Small amount of ascites. Hardware: None. Bones: Age-appropriate degenerative changes of the thoracic spine. CT/CTA Chest W/WO Contrast IMPRESSION: Negative for pulmonary embolus.. Mild interstitial edema. Mild mediastinal adenopathy. Cirrhosis. Reading Location: [facility] CC: Dr. Alis Duran MD; Dr. Denice Leal, DO ~ Banking Representative: Signed [facility]03-17-2025 Evaluation note* Diagnosis Onset Date Resolution Status Admit Date Anal fissure acute January 28, 2025 2:30pm [facility] Work Phone: 1([phone]) 526-729505-09-2024 History of Present illness Narrative* Zack Vigil MD - 03/22/2024 9:30 AM EDT Subjective Patient ID: Leon Rider is a 43 y.o. male who presents for Follow-up. Follow-up diabetes hypertension hyperlipidemia cirrhosis HPI Patient feeling okay. In the process of moving, they are moving up to [facility]. Very active packing and moving boxes. No further episodes of chest pain or shortness of breath since last visit, he ultimately did not end up getting a stress test. Review of Systems No weight changeover operator 4 months Objective Visit Vitals BP 130/80 [...] after he moves documented in this [facility]Central [facility] Work Phone: 1(933) 759-122111-11-2023 History of Present illness Narrative* Bernabe Dooley [...] of 09/24/2023. Patient describes it as a "wine tinge". Patient denies any other symptoms such as [...] F) (Oral) Resp 16 Ht 1.803 m (71") Wt 168 kg (370 lb) SpO2 97% [...] Urine Colorless (*) Clarity, Urine Clear Specific [place] Urine 1.010 pH, Urine 6.5 Leukocytes, Urine [...] Procedure Abnormality Status --------- ------ CBC auto differential[[id number]] Abnormal Final result Please view results for [...] Dooley MD 09/25/23 0735 documented in this encounterPaladin [id number] Hospital Discharge instructions* Discharge Instructions* Suki Bales [...] sent through Care Everywhere. * Esophageal Varices (Algerian) documented in this encounterTrinNew Lifecare Hospitals of PGH - [id number] History of Present illness Narrative* Misty Dodson RN - 02/16/2023 9:[address] Vincent Moses- Portal Hypertensive Gastropathy, (PHG) , Gastric Antral Vascular Ectasia Endoscopic report given to DOOR FRAME BUILDER - Suki Bales documented in this encounterPaladin [id number] Attending History and physical note* Vincent Moses [...] note were not included. Kenya Andre NP [facility] Hospitalists History and Physical Same Day Surgery Patient Name:Leon Rider :1980 Admit Date: [id number] Physicians: Zack Vigil MD (PCP) Perpetual Assessment: Leon Rider is a 42 y.o. male who presented for EGD, per the request of Dr. Moses. [facility] has been asked to see the patient [...] each day in the morning. Historical Provider, furosemide (LASIX) 20 mg tablet Take 1 [...] [] Microbiology [x] Outside Records [] [facility] [employer] Phone: 1([phone]) 155-859204-05-2023 History and physical note* Kenya Andre NP - 02/16/2023 9:00 AM EDT Images from the original note were not included. Kenya Andre NP [facility] Hospitalists History and Physical Same Day Surgery Patient Name:Leon Rider :1980 Admit Date: [id number] Physicians: Zack Vigil MD (PCP) Perpetual Assessment: Leon Rider is a 42 y.o. male who presented for EGD, per the request of Dr. Moses. [facility] has been asked to see the patient [...] each day in the morning. Historical Provider, furosemide (LASIX) 20 mg tablet Take 1 tablet (20 mg total) by mouth 1 (one) time each day after lunch. Historical Provider, hydrOXYzine HCL (ATARAX) 25 mg tablet Take [...] each day in the morning. Historical Provider, omeprazole (PriLOSEC) [address] capsule Take 1 capsule (40 mg total) by mouth 1 (one) time each day in the morning. Do not crush or chew. Historical Provider, potassium chloride (KLOR-CON M20) 20 mEq CR tablet Take 1 tablet (20 mEq total) by mouth 1 (one) time each day in the morning. Historical Provider, sertraline (ZOLOFT) 50 mg tablet Take 1 tablet (50 mg total) by mouth 1 (one) time each day in the morning. Historical Provider, SITagliptin (JANUVIA) 100 mg tablet Take 1 tablet (100 mg total) by mouth 1 (one) time each day. Atlunch Historical Provider, triamterene-hydroCHLOROthiazide (MAXZIDE-25) 37.5-25 mg per tablet Take [...] [] Microbiology [x] Outside Records [] [facility] [employer] Phone: 1(956) 313-175804-05-2023 History and physical note* Vincent Moses MD [...] note were not included. Kenya Andre NP [facility] Hospitalists History and Physical Same Day Surgery Patient Name:Leon Rider :1980 Admit Date: 4041217 Physicians: Zcak Vigil MD (PCP) Perpetual Assessment: Leon Rider is a 42 y.o. male who presented for EGD, per the request of Dr. Moses. [facility] has been asked to see the patient [...] each day in the morning. Historical Provider, furosemide (LASIX) 20 mg tablet Take 1 tablet (20 mg total) by mouth 1 (one) time each day after lunch. Historical Provider, hydrOXYzine HCL (ATARAX) 25 mg tablet Take [...] note were not included. Kenya Andre NP [facility] Hospitalists History and Physical Same Day Surgery Patient Name:Leon Rider :1980 Admit Date: [id number] Physicians: Zack Vigil MD (PCP) Perpetual Assessment: Leon Rider is a 42 y.o. male who presented for EGD, per the request of Dr. Moses. [facility] has been asked to see the patient [...] each day in the morning. Historical Provider, furosemide (LASIX) 20 mg tablet Take 1 tablet (20 mg total) by mouth 1 (one) time each day after lunch. Historical Provider, hydrOXYzine HCL (ATARAX) 25 mg tablet Take [...] each day in the morning. Historical Provider, omeprazole (PriLOSEC) [address] capsule Take 1 capsule (40 mg total) by mouth 1 (one) time each day in the morning. Do not crush or chew. Historical Provider, potassium chloride (KLOR-CON M20) 20 mEq CR tablet Take 1 tablet (20 mEq total) by mouth 1 (one) time each day in the morning. Historical Provider, sertraline (ZOLOFT) 50 mg tablet Take 1 [...] Outside Records [] Family documented in this encounterPaladin [id number] Procedure note* Skui Bales RN - 02/16/2023 9:00 AM EDT Pt and verbalize understanding of d/c instructions. [facility] [id number] Procedure note* Suki Bales RN - 02/16/2023 9:00 AM EDT Pt and verbalize understanding of d/c instructions. documented in this encounterPaladin [id number] History of Present illness Narrative* Cyn Thomas RN - 12/23/2022 10:[address] Mishra, Two bandings applied. Report given to Bianca WAYNE. documented in this encounterPaladin [id number] Hospital Discharge instructions* Discharge Instructions* Bianca Barbour RN - 12/23/2022 10:27 AM EST Follow up with your Primary Care Physician Dr. Mishra can be reached at [phone]. Endoscopy Discharge Instructions Your Procedure Was: Esophagogastroduodenoscopy [...] return to work today. documented in this encounterPaladin [id number] History and physical note* Paul Tad V - 12/23/2022 9:30 AM EST Images from the original note were not included. GASTROENTEROLOGY OUTPATIENT PRE-PROCEDURE NOTE Patient Name: Leon Rider MR #: [id number] Indication: Esophageal varices Brief History: Follows with [...] F) (Temporal) Resp 22 Ht 1.803 m (71") Wt (!) 174 kg (383 lb 2.6 oz) SpO2 92% BMI 53.44 kg/m Smoking Status Never BSA 2.78 m General: NAD; Alert and oriented x3 Lungs: Clear without rales, rhonchi or wheezes; no increased respiratory effort Cardiovascular: RRR; no edema Abdomen: Positive bowel sounds; soft; non tender Skin: No rashes; normal turgor Plan: 1) Will proceed with endoscopic procedure as scheduled. Paul Mishra [employer] Phone: 1(112) 117-112302-09-2023 History and physical note* Paul Mishra V - 12/23/2022 9:30 AM EST Images from the original note were not included. GASTROENTEROLOGY OUTPATIENT PRE-PROCEDURE NOTE Patient Name: Leon Rider MR #: [id number] Indication: Esophageal varices Brief History: Follows with [...] F) (Temporal) Resp 22 Ht 1.803 m (71") Wt (!) 174 kg (383 lb 2.6 [...] as scheduled. Paul Mishra documented in this encounterPaladin [id number] Procedure note* Buffy Morales, RN - 12/23/2022 9:30 AM EST Patient reports that he would like to come to the appointment of 830 arrival maybe a few minutes late due to has PT appointment prior. Medications as instructed with sips of water on the morning of surgery. Please ensure you have a long haul truck driver, age 18 or greater, and someone with your for 24 hours after anesthesia. No big decisions day after surgery due to anesthesia [employer] Ticket Checker: Zelda- Accept Emergency blood transfusion: Yes Pal[facility] [id number] Procedure note* Hannah Morales RN - 12/23/2022 9:30 AM EST Patient reports that he would like to come to the appointment of 830 arrival maybe a few minutes late due to has PT appointment prior. Medications as instructed with sips of water on the morning of surgery. Please ensure you have a long haul truck driver, age 18 or greater, and someone with your for 24 hours after anesthesia. No big decisions day after surgery due to anesthesia [employer] Ticket Checker: Zelda- Accept Emergency blood transfusion: Yes documented in this encounterPaladin [id number] History and physical note* Susana Leblanc, - 10/27/2022 3:45 PM EST Images from the original note were not included. GASTROENTEROLOGY OUTPATIENT PRE-PROCEDURE NOTE Patient Name: Leon Rider MR #: [id number] Indication: EV banding Brief History: 42M GLASS [...] F) (Temporal) Resp 14 Ht 1.803 m (71") Wt (!) 172 kg (380 lb) SpO2 98% BMI 53.00 kg/m Smoking Status Never BSA 2.77 m General: NAD; Alert and oriented x3 Lungs: Clear without rales, rhonchi or wheezes; no increased respiratory effort Cardiovascular: RRR; no edema Abdomen: Positive bowel sounds; soft; non tender Skin: No rashes; normal turgor Plan: 1) Will proceed with endoscopic procedure as scheduled. Susana Leblanc DO [employer] Phone: 1(997) 721-132712-14-2022 History and physical note* Susana Leblanc DO - 10/27/2022 3:45 PM EST Images from the original note were not included. GASTROENTEROLOGY OUTPATIENT PRE-PROCEDURE NOTE Patient Name: Leon Rider MR #: [id number] Indication: EV banding Brief History: 42M GLASS [...] F) (Temporal) Resp 14 Ht 1.803 m (71") Wt (!) 172 kg (380 lb) SpO2 [...] scheduled. Susana Leblanc DO documented in this encounterPaladin [id number] Procedure note* Apolonia Dave RN - 10/27/2022 3:[address] Leblanc in to see pt and to discuss findings of procedure . This nurse reviewed d/c instructions also . Both voiced understanding [address]14-2022 Procedure note* Apolonia Dave RN - 10/27/2022 3:[address] Leblanc in to see pt and to discuss findings of procedure . This nurse reviewed d/c instructions also . Both voiced understanding documented in this encounterPaladin [id number] Hospital course Narrative* Ansley Ballard RN - [...] CPAP machine. * You must have a long haul truck driver to take you home Please be sure to bring the following on the day of procedure: long haul truck driver's license or photo ID , and current insurance cards. You may also bring copies of your Living Will or Healthcare Power of Local Sales Manager if available. documented in this [facility]06-01-2022 Hospital course Narrative* Loli Zee MD - 04/14/2022 5:26 PM EDT Images from the original note were not included. Loli Zee MD [facility] Hospitalists DISCHARGE SUMMARY Leon Rider . Admit [...] will need to follow-up with a new supervisor train operations/supervisor wood crew -No acute issues, recommended outpatient follow-up -Continue [...] Your Medications These medications were sent to [facility] [id number] - [place], [place] - [address] [facility] [address] [facility] [address] [facility] [address] atenoloL 25 mg tablet hydrOXYzine HCL 25 [...] ibuprofen, aleve, naprosyn etc documented in this encounterPaladin [id number] History of Present illness Narrative* Loli Zee MD - 04/14/2022 2:35 PM EDT Images from the original note were not included. Loli Zee MD [facility] Hospitalists DAILY PROGRESS NOTE Patient Name: Leon [...] will need to follow-up with a new supervisor train operations/supervisor wood crew -No acute issues, recommended outpatient follow-up -Continue [...] RN - 04/14/2022 12:45 PM EDT 04/14/22 6396 Discharge Planning Living Arrangements Spouse/significant other Support Systems Spouse/significant other Assistance Needed Independent Type of Residence Private residence Home Services No Patient expects to be discharged to: Home Does the patient need discharge transport arranged? No Initial Transition Plan Initial Transition Plan Home Back up Transition Plan Back up Transition plan Home Health Care Duster Tender Note Patient mentation at time of initial Assessment: A&Ox4. Patient Directives: Has no advance directives and declining information. Patient Next of Kin / Surrogate Decision Maker is his , Zelda Rider. Insurance provider confirmed from chart: Confirmed and correct. PCP confirmed from chart: Confirmed and correct. Living Situation: Patient resides: 2-story house w/basement. Patient with following DME prior to this admission: CPAP through [facility], no additional DME. Steps [...] Independent . [facility] [address]confirmed. Patient is able to afford medications. Admitted: [...] unspecified type [R06.00] [address] [place] [address] confirmed from facesheet/demographics. CODE STATUS at time [...] with Support []Home health care []Inpatient Rehab []correction facility []senior care care []Other: Discharge Destination: [x]Home with []No Needs []Home health care []Inpatient Rehab []correction facility []senior care care []Pending evaluation []TBD []Other: Facility info [...] difficulty breathing that he notes was a "panic attack" that lasted about 30 seconds to 1 [...] nausea, vomiting, abdominal pain, or further complants. Hudson Coma Scale Score: 15 Patient History Past [...] & MDM Clinical Impressions as of 04/13/22 175 Dyspnea, unspecified type MDM I saw and [...] a plane, noting that he traveled to [place] and back last month, about a 2 and half [...] negative. I discussed patient's care with admitting [facility] physician, and patient is excepted to their service. Procedures CHARLES Maciel 04/13/22 1435 CHARLES Maciel 04/13/22 1805 documented in this encounterPaladin [id number] History and physical note* Tye Holbrook MD - 04/13/2022 6:03 PM EDT Images from the original note were not included. Arias Holbrook MD [facility] Hospitalists History and Physical Patient Name:Leon Rider [...] will need to follow-up with a new supervisor train operations/supervisor wood crew -No acute issues Thrombocytopenia -In the setting [...] [] Family Time Spent: documented in this encounterPaladin [id number] History of Present illness Narrative* Jean Carlos Isidro RN - 04/22/2021 8:50 AM EDT Reviewed dc with pt and his s/o. All questions answered. Pt in possession of paper oxy Rx. documented in this [id number] Miscellaneous Notes* Op Note - Sukhwinder Villalobos MD - 04/22/2021 8:01 AM EDT ADRY, LEON [facility] [id number] 1980 DATE 04/22/2021 OPERATIVE REPORT SURGEON SUKHWINDER [...] well. SUKHWINDER VILLALOBOS MD D 04/22/2021 07:46 [id number] T 04/22/2021 07:59 BP/MODL * Brief Op Note - Sukhwinder Villalobos MD - 04/22/2021 7:40 AM EDT Brief Post Operative Note Patient Name: Leon Rider : 1980 (40 y.o.) Date of Service: 04/22/2021 CSN: [id number] Procedure(s): REPAIR UMBILICAL HERNIA WITH MESH Pre-Operative Diagnoses: * Umbilical hernia without obstruction and without gangrene [K42.9] Post-Operative Diagnoses: * Same as Pre-Op Diagnosis * Umbilical hernia without obstruction and without gangrene [K42.9] Surgeon(s) and Role: * Sukhwinder Villalobos MD - Primary Anesthesiologist: Ha Alvarado MD CHIROPRACTIC CARE: Tasneem Flores CRNA Armament Installer: Edith Feldman RN Scrub Person: ST Chris Scrub Person Orientee: ST Sivan Scrub Person Assist: ST AMARI ChávezA: Johana Swan RN Operative findings: umbilical hernia Intra and immediate post-operative complications: none Type of anesthesia used: General Estimated blood loss: 10 mL Estimated urine output: Refer to surgical log Specimen(s): * No specimens in log * Implant(s): Implant Name Type Inv. Item Serial No. Basting Machine Operator Lot No. LRB No. Used Action PATCH 1.7IN HERNIA W/STRAP SM [employer] - [id number] PATCH 1.7IN HERNIA W/STRAP SM VENTRALEX ST [employer] [id number] N/A 1 Implanted Drain(s): * No LDAs found * Wound(s): Wound 04/22/21 Surgical Wound Abdomen (Active) Sukhwinder Villalobos MD 04/22/2021 7:40 AM documented in this [id number] History and physical note* Sukhwinder Villalobos MD - 04/22/2021 6:26 AM EDT INTERVAL HISTORY AND PHYSICAL Patient Name: Leon Rider Admit Date: [id number] MR #: [id number] : 1980 The H&P has been reviewed and the patient has been examined. I concur with the findings of the H&P. There are no significant changes. It is appropriate to proceed with the planned procedure. Sukhwinder Villalobos MD 04/22/2021 6:26 AM documented in this [id number] Nurse Note* Aleyda Jett RN - 04/17/2021 10:49 AM EDT Patient Instructions for [facility]: Prior to arrival: Please be sure to wear loose, comfortable clothing and non-skid shoes Bring your health insurance information and a photo ID, as well as your Living Will or Durable Power of Local Sales Manager for Healthcare if it is available to you. Bring your cane/walker any applicable assistive device. If you currently use a CPAP, please bring this device with you on the day of surgery. Bring a list of your medications with the name of the medication, dose and how often you are takingit. Be sure to include herbal preparations and zhrk-vwj-[id number] medications on this list. Do not have [...] of lotions, perfumes or powders. All nail azeri is to be removed from fingernails and [...] the day of your surgery/procedure. Parking at [facility] is free. Please park in the lot in front of the main lobby. Enter the Main Entrance where a Data Integration Analyst Liaison at the information desk will greet you and accompany you to the surgery waiting area. Children under the age of 16 are NOT permitted in the Pre/Post Operative areas. They are welcome towait with a responsible adult in the surgery waiting area. G INSTRUCTIONS REVIEWED COMING WITH DOS After your surgery: If you are having an outpatient procedure and will be going home the same day, a responsible licensed adult must be available for transportation, and is expected to remain at the hospital for the duration of your surgery/procedure. You are NOT allowed to drive yourself home. documented in this encounterSelect Medical [facility]Health Rehabilitation HospitalConsult note* Clinical Note Date No Information [facility] Work Phone: Discharge summary* Clinical Note Date No Information [facility] Work Phone: Evaluation note* Diagnosis Umbilical hernia without obstruction and without gangrene- Primary Post-op pain Other acute postoperative pain documented in this encounter [facility] note* Diagnosis Body mass index 45.0-49.9, adult (CMS/HCC)- Primary Body Mass Index 45.0-49.9, adult documented in this encounter [facility] note* Diagnosis Stone, kidney Calculus of kidney documented in this encounter [facility] note* Diagnosis Dyspnea, unspecified type- Primary documented in this encounter [facility] note* Diagnosis GLASS (nonalcoholic steatohepatitis) Other chronic nonalcoholic liver disease documented in this encounter [facility] note* Diagnosis Esophageal varices with bleeding (CMS/HCC) documented in this encounter [facility] note* Diagnosis Calculus of kidney Calculus of kidney with calculus of ureter documented in this encounter [facility] note* Diagnosis Esophageal varices without bleeding, unspecified esophageal varices type (CMS/HCC) [I85.00 (ICD-10-CM)]- Primary documented in this encounter [facility] note* Diagnosis Esophageal varices without bleeding, unspecified esophageal varices type (CMS/HCC) [I85.00 (ICD-10-CM)]- Primary documented in this encounter [facility] note* Diagnosis Painless hematuria- Primary documented in this encounter [facility] note* Diagnosis Hyperlipidemia, unspecified hyperlipidemia type- Primary Primary hypertension Unspecified essential hypertension Cirrhosis of liver without ascites, unspecified hepatic cirrhosis type (CMS/HCC) (HCC) Type 2 diabetes mellitus without complication, without long-term current use of insulin (CMS/HCC) (HCC) documented in this encounter [facility] Work Phone: Evaluation note* Type Assessment Date No Information [facility] Work Phone: Evaluation note* Diagnosis Onset Date Resolution Status Admit Date Cellulitis acute July 21, 2025 12:11pm Chest pain, atypical acute Sept ember 2024 12:11pm [facility] Work Phone: History and physical note* Clinical Note Date No Information [facility] Work Phone: History and physical note Author Timoteo Cooper [facility] Note Date/Time July 21, 2025 12:42pm [facility] Medical Records Department [address] [place] [address] H&P Exam - Hospitalist 07/21/25 1150 MR#: [id number] Acct: [id number] Name: LEON RIDER Rep #:[id number] : 1980 45 From: Timoteo Mccarthy PCP: Dr. Alis Duran MD Status:ADM IN Location: [place] [address] HPI - General General Date of Admission: 07/21/25 Date of Service: 07/21/25 Chief Complaint: Atypical chest pain about 2 times last night. HPI Narrative LEON RIDER, is a 45 M with multiple comorbidities came to ED after he had 2- 3 times chest pain last night. Chest pain he felt like localized, pressure- likechild sitting on his chest. No radiation. About 5-6 times/10 in intensity. Patient is not good historian and does not give/remember chronological order of his symptoms, frequency or number of times. He further said he has shortness ofbreath for several weeks, not getting better more with ADL. He has morbid obesity and uses CPAP and has chronic bilateral lower extremity lymphedema. He denies any passing out or fall. On last Tuesday he went to the PCP from where he was sent to ED for right venous duplex rule out DVT and was ruled out. Patient says he also has cough for about2 to 3 months, not clear about his sputum states sometimes. He is not sure about fever but felt like cold several days ago. He is vague historian He was diagnosed with cirrhosis probably 7 to 10 years ago. 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 [facility] Medical History HTN (hypertension) Diabetes Acid reflux Rectal bleeding Hemorrhoids Home Medications ?Medication ?Instructions ?Recorded ?Last Taken ?Type Diltiazem 10mg/Lidocaine 50mg See Rx Instructions [place] . BID #30 01/28/25 Unknown Rx Suppository 30 supp suppository supp furosemide 40 mg tablet 40 mg PO QDAY 01/28/25 Unkno wn History lisinopril 5 mg tablet 5 mg PO QDAY 01/28/25 Unknow n History metformin 1,000 mg tablet 1,000 mg PO BID 01/28/25 Unk nown History sitagliptin phosphate 100 mg 100 mg PO QDAY 01/28/25 U nknown History tablet (Januvia) atorvastatin 20 mg tablet 20 mg PO DAILY 07/21/25 Unkn own History omeprazole 40 mg capsule,delayed 40 mg PO DAILY Unknown History release repaglinide 1 mg tablet 1 mg PO BID 07/21/25 Unknown History triamterene 37.5 1 cap PO DAILY 07/21/25 Unkn own History mg-hydrochlorothiazide 25 mg capsule Allergy/AdvReac Type Severity Reaction Status Date / Time No Known Allergies Allergy Verified 07/21/25 09:08 Surgical History H/O umbilical hernia repair [place] teeth extracted Social History household members: spouse housing: house Smoking Status: Never smoker alcohol intake: never substance use type: does not use ROS ROS Narrative Constitutional: Reports fatigue and weakness. No clear history of fever HEENT: Reports systems reviewed and no addt'l complaints, except as documented Respiratory/Chest: As described in HPI. Uses CPAP. CVS: Left-sided localized chest pain 2 times in the last night. No radiation. As described in HPI. Gastrointestinal: Denies coffee ground emesis, hematemesis or vomiting Genitourinary: Denies burning urination or new urinary tract symptoms Musculoskeletal: Difficulty in ambulation. Chronic lower extremity swelling Neurologic: Denies seizure-like symptoms. skin: No ulcer. No rash Endocrinology: Reports systems reviewed and no addt'l complaints, except as documented Hematologic/Lymphatic: Reports systems reviewed and no addt'l complaints, exceptas documented Rest 14 ROS are negative except as mentioned in HPI Vital Signs Vital Signs Vital Signs: 07/21/25 09:08 07/21/25 09:22 07/21/25 09:28 Temperature 98.8 F 99.2 F H Temperature Source Temporal Oral Pulse Rate 106 H Respiratory Rate 22 H Respiratory Effort Normal Non-Labored Blood Pressure 151/56 H Blood Pressure Mean 87 Pulse Ox 96 Oxygen Delivery Method Room Air 07/21/25 09:29 07/21/25 10:17 07/21/25 11:00 Temperature Temperature Source Pulse Rate 99 Respiratory Rate 15 Respiratory Effort Blood Pressure 131/63 H 129/49 H Blood Pressure Mean 85 75 Pulse Ox 99 Oxygen Delivery Method Room Air Weight Weight: 388 lb 7.272 oz Body Mass Index (BMI) 54.1 Physical Exam Narrative General: Alert, Oriented x3, Cooperative. Morbid obesity BMI 54.2 kg/m? HEENT: Atraumatic, PERRLA, EOMI, Normocephalic. Oral: Deep oropharyngeal history could not be visualized Neck: Supple, No JVD, Negative Carotid Bruits Chest wall/Lungs: Air entry severely diminished in bilateral lung bases. Mild crepitation in right lung base Cardiovascular: Regular rate and rhythm, Normal S1,S2, No M/G/R Abdomen: Bowel Sounds Present, Soft, Non Tender, Non-Distended : No dysuria. No renal angle tenderness. No suprapubic tenderness. Extremities: No edema, Capillary Refill Less than 3 Seconds Skin: Redness/erythema present over right calf area Musculoskeletal: Tenderness in right calf. Bilateral lower extremity lymphedemachronic. ROM restricted over knees and hip joints Neurological: Cranial nerves II-XII grossly intact, DTR 2+/4. No acute focal neurological deficit. Psych/Mental Status: Flat affect Results Lab / Micro Data 07/21/25 09:18 07/21/25 09:18 Labs: Laboratory Results - last 24 hr 07/21/25 09:18: WBC 9.3, RBC 3.35 L, Hgb 8.8 L, Hct 26.8 L, MCV 80.0, MCH 26.3 L, MCHC 32.8, RDW Std Deviation 63.7 H, RDW Coeff of Melina 22.6 H, Plt Count 112 L,MPV 10.3, Immature Gran % (Auto) 0.600, Neut % (Auto) 70.4 H, Lymph % (Auto) 10.4 L, Sandoval % (Auto) 15.8 H, Eos % (Auto) 2.3, Baso % (Auto) 0.5, Absolute Neuts (auto) 6.6, Absolute Lymphs (auto) 0.97, Nucleated RBC % 0, Differential Comment SCANNED, Polychromasia 1+, Anisocytosis 2+, Microcytosis 1+, Target Cells 1+, Sodium 127 L, Potassium 3.7, Chloride 97 L, Carbon Dioxide 17.8 L, Anion Gap 12, BUN 8, Creatinine 0.66 L, Est GFR (MDRD) Non-Af 117, BUN/Creatinine Ratio 12.9, Glucose 168 H, Calcium 8.1, Total Bilirubin 3.82 H, AST 42 H, ALT 33, Alkaline Phosphatase 109, Troponin T High Sens 8, NT pro BNP II106, Total Protein 6.6, Albumin 2.5 L, Globulin 4.1, Albumin/Globulin Ratio 0.6 L, TSH 1.550 07/21/25 09:35: PT 20.3 H, INR 1.7, APTT 39.4 H, Lactic Acid 3.2 H* Micro: Microbiology 07/21/25 09:38 Mucosa - Nose SARS-CoV-2, Influenza & RSV (PCR) - Final 07/21/25 10:25 Stool Stool Occult Blood (GIORGIO) - Final Imaging Radiology Impression Chest CTA 07/21/25 09:27 IMPRESSION: Negative for pulmonary embolus.. Mild interstitial edema. Mild mediastinal adenopathy. Cirrhosis. Reading Location: [facility] Assessment & Plan Assessment/Plan (1) Cellulitis: QUALIFIERS: Site of cellulitis: extremity Site of cellulitis of extremity: lower extremity Laterality: right Qualified Code(s): L03.115 - Cellulitis of right lower limb (2) Chest pain, atypical: PLAN: Plan This is 45-year-old gentleman admitted with chest pain last night and several weeks of shortness of breath yesterday 1. Atypical chest pain and SOB probably due to heart failure exacerbation: Patient is being admitted in PCU. First troponin 8, second pending. proBNP 106but may be falsely normal/low due to morbid obesity. Chest CTA negative for pulmonary embolism and earlier venous duplex were negative for acute DVT. It shows mild/trivial edema, mild mediastinal adenopathy and cirrhosis. Lactic acid elevated probably due to ineffective circulation/venous congestion. Started on furosemide 40 mg IV twice daily. ED physician ordered 1 L normal saline bolus. Heart failure core measures including intake and output, fluid restriction less than 1500 mL, daily weight monitoring, kidney and electrolytes monitoring. 2D echo ordered for tomorrow a.m. Twelve-lead EKG sinus tachycardia 101 bpm, QTc 479 ms. No previous EKG to compare. 2. RLE cellulitis with bilateral chronic venous hypertension and lymphedema: Right lower leg is tender and edematous slightly more than LLE. Venous duplex of right lower extremity negative for acute DVT. It shows valvular competence possible deep venous system. Started on IV ceftriaxone after patient got IV cefazolin in the ED. No open wound to culture. 3. Decompensated MASLD cirrhosis with mild perihepatic ascites, thrombocytopenia and hypotonic hypervolemic hyponatremia: Albumin 2.5, platelet count 112K. T. bili 3.82, AST 42. ALT normal. Right upper quadrant sonogram ordered. 4. DM type II: Glucose is elevated 168. Patient on multiple oral antidiabetic medications which are held. Started on Lantus 10 units p.o. daily. Accu-Chek before meals and at bedtime with Humalog sliding scale coverage and hypoglycemia protocol. 5. Hypertension: Blood pressure is in normal range though it was elevated in the ED. 6. Other comorbidities include GERD, anal fissure/hemorrhoid: On PPI. ContinuePPI. Saw Dr. Lorie Willson for anal fissure and was advised sitz bath, diltiazem and lidocaine suppository and avoid constipation. 7. Morbid obesity with obstructive sleep apnea/possible obesity hypoventilationsyndrome: Patient uses CPAP at home, continue Living will/advanced directive/end of life care: Patient does not have living will or advanced directive. His is next of kin. After discussion of benefits/risks procedures involved with full code, DNR CC arrest and DNR CC, the patient opted for full code. Patient does want artificial life support including intubation, tube feed, ventilator and/chest compression, central venous catheter, vasopressor and DC shock if needed Total time spent in meib-in-iojw encounter in discussion of advanced directive 17 minutes. Microbiology Past 72 Hours 07/21/25 09:38 Mucosa - Nose SARS-CoV-2, Influenza & RSV (PCR) - Final 07/21/25 10:25 Stool Stool Occult Blood (GIORGIO) - Final Laboratory Results 07/21/25 09:18: WBC 9.3, RBC 3.35 L, Hgb 8.8 L, Hct 26.8 L, MCV 80.0, MCH 26.3 L, MCHC 32.8, RDW Std Deviation 63.7 H, RDW Coeff of Melina 22.6 H, Plt Count 112 L,MPV 10.3, Immature Gran % (Auto) 0.600, Neut % (Auto) 70.4 H, Lymph % (Auto) 10.4 L, Sandoval % (Auto) 15.8 H, Eos % (Auto) 2.3, Baso % (Auto) 0.5, Absolute Neuts (auto) 6.6, Absolute Lymphs (auto) 0.97, Nucleated RBC % 0, Differential Comment SCANNED, Polychromasia 1+, Anisocytosis 2+, Microcytosis 1+, Target Cells 1+, Sodium 127 L, Potassium 3.7, Chloride 97 L, Carbon Dioxide 17.8 L, Anion Gap 12, BUN 8, Creatinine 0.66 L, Est GFR (MDRD) Non-Af 117, BUN/Creatinine Ratio 12.9, Glucose 168 H, Calcium 8.1, Total Bilirubin 3.82 H, AST 42 H, ALT 33, Alkaline Phosphatase 109, Troponin T High Sens 8, NT pro BNP II106, Total Protein 6.6, Albumin 2.5 L, Globulin 4.1, Albumin/Globulin Ratio 0.6 L, TSH 1.550 07/21/25 09:35: PT 20.3 H, INR 1.7, APTT 39.4 H, Lactic Acid 3.2 H* 07/21/25 10:25: Urine Color Yellow, Urine Clarity Clear, Urine pH 6.5, Ur Specific [place] 1.010, Urine Protein 30 H, Urine Glucose (UA) Normal, Urine Ketones Negative, Urine Occult Blood 25 H, Urine Nitrite Negative, Urine Bilirubin 1 H, Urine Urobilinogen 4 H, Ur Leukocyte Esterase Negative, Urine RBC0 SEEN, Urine WBC 0 SEEN, Ur Squamous Epith Cells 0 SEEN, Urine Bacteria 0 SEEN,Urine Mucus 0 SEEN 07/21/25 11:25: Blood Type B POSITIVE, Antibody Screen Pending 07/21/25 11:56: Magnesium Pending, Direct Bilirubin Pending, Troponin T Hi Sens 2 Hr Pending Clinical Impression(s) from Imaging Studies Chest CTA 07/21/25 09:27 IMPRESSION: Negative for pulmonary embolus.. Mild interstitial edema. Mild mediastinal adenopathy. Cirrhosis. Charges/Coding Visit Charges Inpatient E&M: 48520 Init Hosp L3 Procedures Hospitalists Procedures: 05720 Advncd Care Plan 30 Min 07/21/25 1242 <Electronically signed by Timoteo Cooper MD> Cosigner Signature (if applicable): CC: Dr. Alis Duran MD; Dr. Timoteo Cooper MD~ Signed [facility] Work Phone: History of Present illness Narrative* Encounter Date Complaint History Of Prese nt Illness No Information [facility] Work Phone: Hospital Discharge instructions* Instructions* Lauren Boyd, CERTIFIED CYTOTECHNOLOGIST - 04/22/2021 Umbilical Hernia Repair: What to [...] Log into your personal health record on [email or web address] and enter J197 in the "Education" box to learn more about "Umbilical Hernia Repair: What to Expect at Home." Current as of: October 03, 2015 Content Version: 11.0 2735-3646 [employer]. Care instructions adapted under license by your healthcare professional. If you have questions about a medical condition or this instruction, always ask your healthcare professional. [employer] disclaims any warranty or liability for your [...] sugar is high. Do not take any cwic-kno-myhphad medicines, such as pain relievers, decongestants, or [...] Log into your personal health record on [email or web address] and enter L970 in the "Education" box to learn more about "Diabetes Sick-Day Plan: Care Instructions." Current as of: April 05, 2016 Content Version: 11.0 3976-9077 [employer]. Care instructions adapted under license by your healthcare professional. If you have questions about a medical condition or this instruction, always ask your healthcare professional. [employer] disclaims any warranty or liability for your [...] Care Everywhere. * EGD (Upper Endoscopy): Post-op (Algerian) * Monitored Anesthesia Care: MAC: General Info (Algerian) [facility]* Attachments The following attachments cannot be sent through Care Everywhere. * Hematuria (Algerian) [facility] instructions Ambulatory Orders* Prior Authorization Referral - ONC/HEM Location: None Selected * Gastroenterology Location: None Selected [facility] Work Phone: Hospital Discharge instructionsAdditional Instructions Follow-up with your primary care provider in the next 3 to 5 days if not improving. Return with new or worsening symptoms. Clear liquid diet, advance as tolerated.[facility] Work Phone: Instructions* Date Instruction Additional Infor mation No Information [facility] Work Phone: Progress note* Clinical Note Date No Information [facility] Work Phone: Progrfwk note Author León Mccray [facility] Note Date/Time August 12, 2025 9:27am [facility] [address] [address] OFFICE VISIT Date of Service: 08/12/25 0823 MR#: [id number] Acct: [id number] Name: LEON RIDER Rep #: [id number] : 1980 From: León Mccray MD Age/Sex: 45/M [place] [facility] [place]: Signed HPI Subjective Date of Service 08/12/25 Chief Complaint Referred for anemia. 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 He has had esophageal varices which has been banded in [place]. Denies recent bleeding [facility] Medical History Hx of cirrhosis Anemia Chronic idiopathic thrombocytopenia HTN (hypertension) Diabetes Acid reflux Rectal bleeding Hemorrhoids Surgical History H/O umbilical hernia repair [place] teeth extracted Family History Other Diabetes Heart disease Social History household members: spouse housing: house Smoking Status: Never smoker alcohol intake: never substance use type: does not use ROS Constitutional Constitutional: Reports systems reviewed and no addt'l complaints, except as documented Eyes Eyes: Reports systems reviewed and no addt'l complaints, except as documented ENT HEENT: Reports systems reviewed and no addt'l complaints, except as documented Cardiovascular Cardiovascular: Reports systems reviewed and no addt'l complaints, except as documented Respiratory/Chest Respiratory/Chest: Reports systems reviewed and no addt'l complaints, except as documented Gastrointestinal Gastrointestinal: Reports systems reviewed and no addt'l complaints, except as documented Genitourinary Genitourinary: Reports systems reviewed and no addt'l complaints, except as documented Musculoskeletal Musculoskeletal: Reports systems reviewed and no addt'l complaints, except as documented Integumentary Integumentary: Reports systems reviewed and no addt'l complaints, except as documented Neurologic Neurologic: Reports systems reviewed and no addt'l complaints, except as documented Psychiatric Psychiatric: Reports systems reviewed and no addt'l complaints, except as documented Endocrine Endocrinology: Reports systems reviewed and no addt'l complaints, except as documented Hematologic/Lymphatic Hematologic/Lymphatic: Reports systems reviewed and no addt'l complaints, exceptas documented Allergic/Immunologic Allergic/Immunologic: Reports systems reviewed and no addt'l complaints, except as documented Intake Vital Signs 07/26/25 10:23 08/12/25 08:24 Height 5 ft 11 in 5 ft 11 in Weight: 146.085 kg BMI 44.9 BP 108/66 Blood Pressure Location Rt brachial Position Sitting Respiration 18 Pulse 78 Pulse Source Monitor Temp 98.5 F Temperature Source Temporal Artery Pulse Oximetry (%) 96 Oxygen Delivery Method room air Intake Is patient in pain?: Yes (right leg) Pain scale (1-10): 4 Allergies No Known Allergies Allergy (Verified 08/12/25 08:33) Medications ?Medication ?Instructions ?Recorded ?Confirmed ?Type metformin 1,000 mg tablet 1,000 mg PO BID diabetes 08/12/25 History sitagliptin phosphate 100 mg 100 mg PO QDAY diabetes 0 01/28/25 08/12/25 History tablet (Januvia) atorvastatin 20 mg tablet 20 mg PO DAILY cholesterol 0 07/21/25 08/12/25 History omeprazole 40 mg capsule,delayed 40 mg PO DAILY stomac h 07/21/25 08/12/25 History release repaglinide 1 mg tablet 1 mg PO BID diabetes 5 08/12/25 History CPAP - Continuous Positive Airway 07/23/25 08/12/25 H istory Pressure([facility] INFORMATIONAL USE ONLY) bumetanide 2 mg tablet 2 mg PO BID #60 tabs 5 08/12/25 Rx nadolol 20 mg tablet 20 mg PO BID #60 tabs 08/12/25 Rx oxycodone 5 mg tablet 5 mg PO Q6H PRN PRN Pain Sco re 07/26/25 08/12/25 Rx 6-10 or Pre PT/OT 7 days #30 tabs potassium chloride 20 mEq 20 meq PO DAILY #30 tabs 11/0708/12/25 Rx tablet,extended release(part/cryst) (Klor-Con M) spironolactone 25 mg tablet 25 mg PO DAILY #30 tabs 08/12/25 Rx Central Venous Access Central Venous Access: No Exam Physical Exam Const alert, oriented x3 and no apparent distress HEENT normocephalic, external ears normal and external nose normal Eyes Eyes Narrative: +jaundiced sclera Neck full ROM, no lymphadenopathy and supple Lymph Lymphatic: no lymphadenopathy noted Resp clear to auscultation bilaterally Cardio regular rate, regular rhythm, S1 normal heart sound, S2 normal heart sound and no murmurs GI normal to inspection, nondistended, normoactive bowel sounds Back/Spine thoracic and lumbar spine normal to inspection Extremity Extremity Narrative: +chronic stasis changes with hyperpigmentation. Skin no rashes or lesions noted Neuro oriented x3, CN's II-XII intact bilaterally and moves all extremities Psych mental status grossly normal Coding Level of Care Code Off vis,new,level 3 Exam Problem Focused Diagnoses Anemia, unspecified type D64.9 Anemia type: unspecified type Assessment and Plan Assessment and Plan (1) Anemia: Qualifiers: Anemia type: unspecified type Qualified Code(s): D64.9 - Anemia, unspecified Plan: To obtain Blood for anemia work up, stool for occult blood, UA. Obtain old records for review. RTC 2 weeks Orders: Orders CBC W/Diff, Automated Today D64.9 - Anemia, unspecified Retic Panel Count Today D64.9 - Anemia, unspecified Erythrocyte Sed Rate Today D64.9 - Anemia, unspecified CRP Today D64.9 - Anemia, unspecified Ferritin Today D64.9 - Anemia, unspecified Iron+Iron Binding Capacity Today D64.9 - Anemia, unspecified Haptoglobin Today D64.9 - Anemia, unspecified Comprehensive Metabolic Profil Today D64.9 - Anemia, unspecified Magnesium Today D64.9 - Anemia, unspecified Phosphorus Today D64.9 - Anemia, unspecified LDH Today D64.9 - Anemia, unspecified Prothrombin Time w/INR Today D64.9 - Anemia, unspecified Partial Thromboplast Time Today D64.9 - Anemia, unspecified Urinalysis, Complete Today D64.9 - Anemia, unspecified Stool Occult Blood iFOB 08/13/25 D64.9 - Anemia, unspecified 08/12/25 1646 <Electronically signed by León Mccarthy> Date _ León Mccray MD Cosigner Signature: Date (if applicable) CC: Dr. Alis Duran MD ~ [facility] Work Phone: Progress note Author León Mccray [facility] Note Date/Time August 19, 2025 3: 13pm [facility] [address] [place] [address] OFFICE VISIT Date of Service: 08/19/25 1447 MR#: [id number] Acct: [id number] Name: LEON RIDER Rep #: [id number] : 1980 From: León Mccray MD Age/Sex: 45/M [place] [facility] [place] Status: Signed HPI Subjective Date of Service 08/19/25 Chief Complaint F/u for anemia. 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 He has had esophageal varices which has been banded in [place]. Denies recent bleeding. Had blood work done and comes for follow up. Feels well. [facility] Medical History Hx of cirrhosis Anemia Chronic idiopathic thrombocytopenia HTN (hypertension) Diabetes Acid reflux Rectal bleeding Hemorrhoids Surgical History H/O umbilical hernia repair [place] teeth extracted Family History Other Diabetes Heart disease Social History household members: spouse housing: house Smoking Status: Never smoker alcohol intake: never substance use type: does not use Intake Vital Signs 08/12/25 08:24 08/19/25 14:48 Height 5 ft 11 in 5 ft 11 in Weight: 141.237 kg BMI 43.4 BP 116/68 Blood Pressure Location Rt brachial Position Sitting Respiration 18 Pulse 82 Pulse Source Monitor Temp 98.6 F Temperature Source Temporal Artery Pulse Oximetry (%) 95 Oxygen Delivery Method room air Intake Accompanied by: Self Is patient in pain?: Yes (leg) Pain scale (1-10): 1 Allergies No Known Allergies Allergy (Verified 08/19/25 14:53) Medications ?Medication ?Instructions ?Recorded ?Confirmed ?Type metformin 1,000 mg tablet 1,000 mg PO BID diabetes 08/19/25 History sitagliptin phosphate 100 mg 100 mg PO QDAY diabetes 0 01/28/25 08/19/25 History tablet (Januvia) atorvastatin 20 mg tablet 20 mg PO DAILY cholesterol 0 07/21/25 08/19/25 History omeprazole 40 mg capsule,delayed 40 mg PO DAILY stomac h 07/21/25 08/19/25 History release repaglinide 1 mg tablet 1 mg PO BID diabetes 5 08/19/25 History CPAP - Continuous Positive Airway 07/23/25 08/19/25 H istory Pressure([facility] INFORMATIONAL USE ONLY) bumetanide 2 mg tablet 2 mg PO BID #60 tabs 5 08/19/25 Rx nadolol 20 mg tablet 20 mg PO BID #60 tabs 08/19/25 Rx oxycodone 5 mg tablet 5 mg PO Q6H PRN PRN Pain Sco re 07/26/25 08/19/25 Rx 6-10 or Pre PT/OT 7 days #30 tabs potassium chloride 20 mEq 20 meq PO DAILY #30 tabs 11/0708/19/25 Rx tablet,extended release(part/cryst) (Klor-Con M) spironolactone 25 mg tablet 25 mg PO DAILY #30 tabs 08/19/25 Rx Central Venous Access Central Venous Access: No Microbiology 08/13/25 07:20 Stool Stool Occult Blood (GIORGIO) - Final Occult Blood Positive Laboratory Tests 08/12/25 09:28 WBC 5.2 Hgb 10.0 L Hct 32.2 L Plt Count 115 L Iron 40 L Iron Saturation 12.3 Ferritin 60 Total Bilirubin 2.60 H AST 65 H ALT 28 Alkaline Phosphatase 115 Lactate Dehydrogenase 413 H Total Protein 8.3 Albumin 2.6 L Globulin 5.7 H Exam Physical Exam Const alert, oriented x3 and no apparent distress Coding Level of Care Code Off vis,est,level 3 Exam Problem Focused Diagnoses Iron deficiency anemia due to chronic blood loss D50.0 Anemia type: iron deficiency Iron deficiency anemia type: chronic blood loss Positive fecal occult blood test R19.5 Iron deficiency anemia due to chronic blood loss D50.0 Iron deficiency anemia type: chronic blood loss Assessment and Plan Assessment and Plan (1) Anemia: Qualifiers: Anemia type: iron deficiency Iron deficiency anemia type: chronic bloodloss Qualified Code(s): D50.0 - Iron deficiency anemia secondary to blood loss (chronic) Plan: To obtain Pre-authorization and do IV iron Obtain old records for review. RTC 8 weeks (2) Positive fecal occult blood test: Status: Acute Plan: To follow up with GI for further work up. (3) Iron deficiency anemia: Status: Acute Qualifiers: Iron deficiency anemia type: chronic blood loss Qualified Code(s): D50.0 - Iron deficiency anemia secondary to blood loss (chronic) Plan: To obtain Pre-authorization and do IV Iron. Plan Details Follow Up: 8 Weeks 08/19/25 1513 <Electronically signed by León Mccarthy> Date _ León Mccray MD Cosigner Signature: Date (if applicable) CC: Dr. Alis Duran MD ~ [facility] Work Phone: Reason for referral (narrative)* Reason For Referral No Information [facility] Work Phone: Reason for referral (narrative)No reason for referral information available[facility] Work Phone: Summary Purpose Family History No Family History Records Found Family Member Type Diagnosis Age At Onset No Information Relationship Condition Age at Onset Recorded Date/T jean Not Specified Diabetes mellitus Unknown Cardiac disease Unknown Advance Directives No Advanced Directives Records FoundDocuments on File Type Date Recorded Patient Food Porter Expl anation Advance Directives and Livin g Will 04/22/2021 7:27 AM Documents on File Type Date Recorded Patient Food Porter Expl anation Power of Local Sales Manager Latest Code Status on File Code Status [...] No Effective Date File Name No Information Advance Directive Response Recorded Date/ Time Do you have a Healthcare Power of Local Sales Manager? No July 21, 2025 9:22am Advance Directive Response Recorded Date/ Time Do you have a Healthcare Power of Local Sales Manager? No July 21, 2025 1:36pm Advance Directive Response Recorded Date/ Time Do you have a Healthcare Power of Local Sales Manager? No August 21, 2025 4:38pm Do you have a Healthcare Power of Local Sales Manager? No July 21, 2025 1:36pm Procedure Findings Note Chantal Merino Patient Name: Leon Rider Procedure Date: 06/26/2020 [...] not included)... Note Patient: LEON RIDER RN: ([id number] Age: 40 years Sex: Male : 1980 [...] summary document to your follow up appointments. [facility] 06/26/20 14:28 [address] [place]. [address] PATIENT INFORMATION Name: LEON RIDER Address: [address] [place] [address] [place] [address] Age: 40 Years Phone: [phone] : 1980 12:00 MRN: ([id number] Sex: Male Race: White Ethnicity: Not Hispan/Lat Admitted From: Clinic or [facility] Medical Service: Gastroenterology [facility] Admit Date: 06/26/2020 12:03 PCP: Zack Vigil MD PHYSICIANS INVOLVED WITH CARE Attending Physicians: Dandy Healy MD Gastroenterology Admitting Physician: None found Primary Care Physician:Musa CARPIO , Zack Randolph,,,Internal Medicine - Consults: None found DIAGNOSES: Cirrhosis Problems Active Migraines SAÚL (obstructive sleep apnea) Rash Cirrhosis Constipation E (more content not included)... Hospital Course Note CLINICAL SUMMARY Please take this summary document to your follow up appointments. [facility] 06/26/20 14:28 [address] [place]. [address] PATIENT INFORMATION Name: LEON RIDER Address: [address] [place] [address] [place] [address] Age: 40 Years Phone: [phone] : 1980 12:00 MRN: [id number] Sex: Male Race: White Ethnicity: Not Hispan/Lat Admitted From: Clinic or [facility] Medical Service: Gastroenterology Nurse [facility] Admit Date: 06/26/2020 12:03 PCP: Zack Vigil MD PHYSICIANS INVOLVED WITH CARE Attending Physicians: Dandy Healy MD Gastroenterology Admitting Physician: None found Primary Care Physician:Musa CARPIO , Zack Randolph,,,Internal Medicine - Consults: None found DIAGNOSES: Cirrhosis Problems Active Migraines SAÚL (obstructive sleep apnea) Rash Cirrhosis Constipation E (more content not included)... Reason for Referral Specialty Diagnoses / Procedures Referred By Contdionisio t Referred To Contact Radiology Diagnoses Body mass index 45.0-49.9, adult (CMS/HCC) Procedures US Abdomen Limited Dandy Healy MD [address] [place] [address] [facility] [place] Referral ID Status Reason Start Date Expiration Date V isits Requested Visits Authorized [id number] Pending Review 10/13/2021 04/11/2022 1 1 Specialty Diagnoses / Procedures Referred By Contac t Referred To Contact Radiology Diagnoses GLASS (nonalcoholic steatohepatitis) Procedures US Abdomen Limited Thom Oneill MD [address] [facility] [place] [address] [facility] [place] Referral ID Status Reason Start Date Expiration Date V isits Requested Visits Authorized [id number] Authorized 07/15/2022 01/11/2023 1 1 Specialty Diagnoses / Procedures Referred By Contac t Referred To Contact Diagnoses Esophageal varices with bleeding (CMS/HCC) Procedures EGD Anesthesia - MAC; [facility] Carlos Jiménez MD [address] [place] [address] [facility] [place] Referral ID Status Reason Start Date Expiration Date V isits Requested Visits Authorized [id number] Authorized 09/28/2022 03/27/2023 1 1 Specialty Diagnoses / Procedures Referred By Contac t Referred To Contact Diagnoses Esophageal varices without bleeding (CMS/HCC) Procedures EGD Anesthesia - MAC; [facility] Paul Mishra V [address] [place] [address] [facility] [place] Referral ID Status Reason Start Date Expiration Date V isits Requested Visits Authorized [id number] Authorized 12/16/2022 01/16/2023 1 1 Specialty Diagnoses / Procedures Referred By Contac t Referred To Contact Diagnoses Esophageal varices without bleeding (CMS/HCC) Procedures EGD Anesthesia - MAC; [facility] EGD Anesthesia - MAC; [facility] Vincent Moses MD [address] [place] [address] [facility] [place] Referral ID Status Reason Start Date Expiration Date V isits Requested Visits Authorized [id number] Authorized 02/16/2023 03/18/2023 1 1 Chief Complaint and Reason for Visit Chief Complaint Admit Date RLE PAIN/ EORDER LABS July 19 12:59pm RT LEG PAIN July 19, 2025 1:58pm HF EXA, RLE CELLULITIS July 21 12:11pm HF EXA, RLE CELLULITIS July 22 9:46am HF EXA, RLE CELLULITIS July 23 9:32am HF EXA, RLE CELLULITIS July 24 025 12:32pm HF EXA, RLE CELLULITIS July 25 025 5:03pm HF EXA, RLE CELLULITIS July 26 025 2:38pm Amb Documentation August 06, 2025 4:21pm Anemia August 12, 2025 8:21am EORDER- STOOL August 13, 2025 11:29am HEART FAILURE/WEAKNESS/CELLULITIS. RX HE RE August 13, 2025 11:57am Reason for Visit Admit Date Cellulitis of right leg without foot Sep tem2024 12:11pm Serum total bilirubin elevated July 21, 2025 12:11pm Acute on chronic heart failu re with preserved ejection fraction July 21, 2025 12:11pm Chest pain, atypical July 21, 2025 12:11pm Elevated lactic acid level July 12:11pm Anemia July 21, 2025 12:11pm Hx of cirrhosis July 21, 2025 12:11pm Cellulitis July 21, 2025 12:11pm Anemia August 12, 2025 8:21am Chief Complaint Admit Date RLE PAIN/ EORDER LABS July 19 12:59pm HF EXA, RLE CELLULITIS July 21 12:11pm Reason for Visit Admit Date Cellulitis July 21, 2025 12:11pm Chest pain, atypical July 21, 2025 12:11pm Chief Complaint Admit Date RECTAL BLEEDING January [...] section and content) DATE CREATED AUTHOR 12/25/2020 [facility] DATE CREATED AUTHOR AUTHOR'S ORGANIZ ATION 04/10/2021 [facility] DATE CREATED AUTHOR AUTHOR'S ORGANIZ ATION 04/22/2021 [facility] DATE CREATED AUTHOR AUTHOR'S ORGANIZ ATION 03/20/2022 [facility] DATE CREATED AUTHOR AUTHOR'S ORGANIZ ATION 02/18/[address] [facility] DATE CREATED AUTHOR AUTHOR'S ORGANIZ ATION 08/04/2023 [facility] DATE CREATED AUTHOR AUTHOR'S ORGANIZ ATION 09/25/2023 [facility] DATE CREATED AUTHOR AUTHOR'S ORGANIZ ATION 03/24/2024 [facility] DATE CREATED AUTHOR AUTHOR'S ORGANIZ ATION 09/19/2025 [facility] Reason for Visit (unrecogniz ed section and content) Status Reason Specialty Diagnoses / Procedures Referre d By Contact Referred To Contact Diagnoses Umbilical hernia without obstruction and without gangrene Umbilical hernia without obstruction and without gangrene [K42.9] Procedures VT REPAIR UMBILICAL HERNIA >= 5 YRS REDUC Sukhwinder Villalobos MD [address] [facility] [address] [place] [address] Reason Comments Panic Attack Per EMS report patie nt had anxiety attack at work; Patient states that symptoms resolved on arrival to ED. Specialty Diagnoses / Procedures Referred By Adrian chris Referred To Contact Diagnoses SOB (shortness of breath) Dyspnea, unspecified type Procedures Tye Holbrook MD [address] [facility] [address] [place] [address] [place] [phone] Referral ID Status Reason Start Date Expiration Date Visits Re quested Visits Authorized [id number] 1 1 Specialty Diagnoses / Procedures Referred By Adrian t Referred To Contact Radiology Diagnoses GLASS (nonalcoholic steatohepatitis) Procedures US Abdomen Limited Thom Oneill MD [address] [facility] [address] [place] [address] [facility] [place] Referral ID Status Reason Start Date Expiration Date V isits Requested Visits Authorized [id number] Authorized 07/15/2022 01/11/2023 1 1 Specialty Diagnoses / Procedures Referred By Contac t Referred To Contact Diagnoses Esophageal varices with bleeding (CMS/HCC) Procedures EGD Anesthesia - MAC; [facility] Carlos Jiménez MD [address] [place] [address] [facility] [place] Referral ID Status Reason Start Date Expiration Date V isits Requested Visits Authorized [id number] Authorized 09/28/2022 03/27/2023 1 1 Specialty Diagnoses / Procedures Referred By Contac t Referred To Contact Diagnoses Esophageal varices without bleeding (CMS/HCC) Procedures EGD Anesthesia - MAC; [facility] Paul Mishra V [address] [place] [address] [facility] [place] Referral ID Status Reason Start Date Expiration Date V isits Requested Visits Authorized [id number] Authorized 12/16/2022 01/16/2023 1 1 Specialty Diagnoses / Procedures Referred By Contac t Referred To Contact Diagnoses Esophageal varices without bleeding (CMS/HCC) Procedures EGD Anesthesia - MAC; [facility] EGD Anesthesia - MAC; [facility] Vincent Moses MD [address] [address] [facility] [place] Referral ID Status Reason Start Date Expiration Date V isits Requested Visits Authorized [id number] Authorized 02/16/2023 03/18/2023 1 1 Reason Comments [...] more than 100 mcg while in PACU. 08 (Given - Provid er: Jean Carlos [...] PRN, mild pain, Starting on Tue04/13/22 at 0 ondansetron (PF) (ZOFRAN) injection 4 mg(Linked Group 1) 4 mg, intravenous, Every 8 hours PRN, vomiting, nausea, Starting on Tue04/13/22 at 0, -ONLY give IV if patient is unable [...] PRN, vomiting, nausea, Starting on Tue04/13/22 at 0
-ONLY give IV if patient is unable to take orally. -If inadequate response within 30 minutes, proceed to next-line agent or contact provider if no further options ordered.
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 Relationship Specialty Start Date End Date Zack Vigil MD [address] [place] [address] PCP - General Internal Medicine 12/02/21 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 Relationship Specialty Start Date End Date Zack Vigil MD [address] [place] [address] PCP - General Internal Medicine 12/02/21 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 Relationship Specialty Start Date End Date Zack Vigil MD [address] [place] [address] PCP - General Internal Medicine 12/02/21 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 Relationship Specialty Start Date End Date Zack Vigil MD [address] [place] [address] PCP - General Internal Medicine 12/02/21 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 Relationship Specialty Start Date End Date Zack Vigil MD [address] [place] [address] PCP - General Internal Medicine 12/02/21 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 Relationship Specialty Start Date End Date Zack Vigil MD [address] [phone] PCP - General Internal Medicine 12/12/19 Roland Chavez [address], [place] [phone] Referring Physician Otolaryngology 11/22/23 Thom Oneill MD [address] [facility] [address] [place] [address] Referring Physician Gastroenterology 11/22/23 Name Effective Dates (start - stop) Status Members No Information Team Status: Active Member Role Status Dates Dr. Paul Smallwood MD Family Provider Active Alis Duran MD Primary Care Provider Active Team Status: Inactive Member Role Status Dates Alis Duran MD Primary Care Provider Active St art: January 28, 2025 End: January 28, 2025 Alis Duran MD Referring Provider Active Start : January 28, 2025 End: January 28, 2025 Dr. Lorie Willson MD Attending Provider Active Start: January 28, 2025 End: January 28, 2025 Team Status: Inactive Member Role Status Carole Duran MD Primary Care Provider Active St art: April 29, 2025 End: April 29, 2025 Alis Duran MD Attending Provider Active Start : April 29, 2025 End: April 29, 2025 Alis Duran MD Referring Provider Active Start : April 29, 2025 End: April 29, 2025 Team Status: Active Member Role/Relationship Status Carole Duran MD Primary Care Provider Active Team Status: Inactive Member Role/Relationship Status Carole Duran MD Primary Care Provider Active St art: April 29, 2025 End: April 29, 2025 Alis Duran MD Attending Provider Active Start : April 29, 2025 End: April 29, 2025 Alis Duran MD Referring Provider Active Start : April 29, 2025 End: April 29, 2025 Team Status: Active Member Role/Relationship Status Carole Duran MD Primary Care Provider Active St art: July 19, 2025 Yusef Mccoy [employer] ELEMENT COATER, [employer]-C Attending Provider Active Start: July 19, 2025 Yusef Mccoy OPT[employer] ELEMENT COATER, [employer] ELEMENT [employer]ATER-C Referring Provider Active Start: July 19, 2025 Team Status: Active Member Role/Relationship Status Carole Duran MD Primary Care Provider Active St art: July 21, 2025 Dr. Denice Leal DO Emergency Provider Active Start: July 21, 2025 Dr. Timoteo Cooper MD Admit Provider Active Sta rt: July 21, 2025 Dr. Timoteo Cooper MD Attending Provider Active Start: July 21, 2025 Dr. Timoteo Cooper MD Other Provider Active Sta rt: July 21, 2025 Team Status: Inactive Member Role/Relationship Status Carole Duran MD Primary Care Provider Active St art: July 19, 2025 End: July 19, 2025 Yusef Mccoy [employer] ELEMENT COATER, [employer] E[employer]MENT [employer]ATER-C Attending Provider Active Start: July 19, 2025 End: July 19, 2025 [facility] [employer]MENT [employer]ATER, [employer] E[employer]MENT [employer]ATER-C Referring Provider Active Start: July 19, 2025 End: July 19, 2025 Team Status: Active Member Role/Relationship Status Carole Duran MD Primary Care Provider Active St art: July 21, 2025 Dr. Denice Leal DO Emergency Provider Active Start: July 21, 2025 Dr. Timoteo Cooper MD Admit Provider Active Sta rt: July 21, 2025 Dr. Timoteo Cooper MD Other Provider Active Sta rt: July 21, 2025 Dr. Myriam Aguilar DO Attending Provider Active S tart: July 21, 2025 Team Status: Active Member Role/Relationship Status Carole Duran MD Primary Care Provider Active St art: July 22, 2025 Dr. Rosalee Kirby MD Attending Provider Active Start: July 22, 2025 Team Status: Active Member Role/Relationship Status Carole Duran MD Primary Care Provider Active St art: July 22, 2025 Dr. Denice Leal DO Emergency Provider Active Start: July 22, 2025 Dr. Timoteo Cooper MD Admit Provider Active Sta rt: July 22, 2025 Dr. Timoteo Cooper MD Attending Provider Active Start: July 22, 2025 Dr. Timoteo Cooper MD Other Provider Active Sta rt: July 22, 2025 Team Status: Active Member Role/Relationship Status Carole Duran MD Primary Care Provider Active St art: July 23, 2025 Dr. Denice Leal DO Emergency Provider Active Start: July 23, 2025 Dr. Timoteo Cooper MD Admit Provider Active Sta rt: July 23, 2025 Dr. Timoteo Cooper MD Attending Provider Active Start: July 23, 2025 Dr. Timoteo Cooper MD Other Provider Active Sta rt: July 23, 2025 Team Status: Active Member Role/Relationship Status Carole Duran MD Primary Care Provider Active St art: July 24, 2025 Dr. Denice Leal DO Emergency Provider Active Start: July 24, 2025 Dr. Timoteo Cooper MD Admit Provider Active Sta rt: July 24, 2025 Dr. Timoteo Cooper MD Attending Provider Active Start: July 24, 2025 Dr. Timoteo Cooper MD Other Provider Active Sta rt: July 24, 2025 Team Status: Active Member Role/Relationship Status Carole Duran MD Primary Care Provider Active St art: July 25, 2025 Dr. Denice Leal DO Emergency Provider Active Start: July 25, 2025 Dr. Timoteo Cooper MD Admit Provider Active Sta rt: July 25, 2025 Dr. Timoteo Cooper MD Other Provider Active Sta rt: July 25, 2025 Dr. Myriam Aguilar DO Attending Provider Active S tart: July 25, 2025 Dr. Myriam Aguilar DO Other Provider Active Start : July 25, 2025 Team Status: Inactive Member Role/Relationship Status Carole Duran MD Primary Care Provider Active St art: July 21, 2025 End: July 26, 2025 Dr. Denice Leal DO Emergency Provider Active Start: July 21, 2025 End: July 26, 2025 Dr. Timoteo Cooper MD Admit Provider Active Sta rt: July 21, 2025 End: July 26, 2025 Dr. Timoteo Cooper MD Other Provider Active Sta rt: July 21, 2025 End: July 26, 2025 Dr. Myriam Aguilar DO Attending Provider Active S tart: July 21, 2025 End: July 26, 2025 Team Status: Active Member Role/Relationship Status Carole Duran MD Primary care physician Active Team Status: Inactive Member Role/Relationship Status Dates Alis Duran MD Primary care physician Active S tart: April 29, 2025 End: April 29, 2025 Alis Duran MD Attending physician Active Star t: April 29, 2025 End: April 29, 2025 Alis Duran MD Referring Provider Active Start : April 29, 2025 End: April 29, 2025 Team Status: Inactive Member Role/Relationship Status Dates Alis Duran MD Primary care physician Active S tart: July 19, 2025 End: July 19, 2025 Yusef [place] [employer] ELEMENT [employer]ATER, [employer]MENT COATER-C Attending physician Active Start: July 19, 2025 End: July 19, 2025 Yusef [facility] OPT[employer] ELEMENT COATER, [employer] ELEMENT COATER-C Referring Provider Active Start: July 19, 2025 End: July 19, 2025 Team Status: Active Member Role/Relationship Status Dates Dr. Kalia Mcmahan MD Attending physician Active Start: July 19, 2025 Yusef [facility] OPT[employer] ELEMENT [employer]ATER, [employer] ELEMENT COATER-C Referring Provider Active Start: July 19, 2025 Team Status: Inactive Member Role/Relationship Status Dates Alis Duran MD Primary care physician Active S tart: July 21, 2025 End: July 26, 2025 Dr. Denice Leal DO Emergency Departm ent Physician Active Start: July 21, 2025 End: July 26, 2025 Dr. Timoteo Cooper MD Admitting physician Active Start: July 21, 2025 End: July 26, 2025 Dr. Timoteo Cooper MD Nurse Practitioner Active Start: July 21, 2025 End: July 26, 2025 Dr. Myriam Aguilar DO Attending physician Active Start: July 21, 2025 End: July 26, 2025 Team Status: Active Member Role/Relationship Status Carole Duran MD Primary care physician Active S tart: July 22, 2025 Dr. Rosalee Kirby MD Attending physician Active Start: July 22, 2025 Team Status: Active Member Role/Relationship Status Carole Duran MD Primary care physician Active S tart: July 22, 2025 Dr. Denice Leal DO Emergency Departm ent Physician Active Start: July 22, 2025 Dr. Timoteo Cooper MD Admitting physician Active Start: July 22, 2025 Dr. Timoteo Cooper MD Attending physician Active Start: July 22, 2025 Dr. Timoteo Cooper MD Nurse Practitioner Active Start: July 22, 2025 Team Status: Active Member Role/Relationship Status Dates Alis Duran MD Primary care physician Active S tart: July 23, 2025 Dr. Denice Leal DO Emergency Departm ent Physician Active Start: July 23, 2025 Dr. Timoteo Cooper MD Admitting physician Active Start: July 23, 2025 Dr. Timoteo Cooper MD Attending physician Active Start: July 23, 2025 Dr. Timoteo Cooper MD Nurse Practitioner Active Start: July 23, 2025 Team Status: Active Member Role/Relationship Status Dates Alis Duran MD Primary care physician Active S tart: July 24, 2025 Dr. Denice Leal DO Emergency Departm ent Physician Active Start: July 24, 2025 Dr. Timoteo Cooper MD Admitting physician Active Start: July 24, 2025 Dr. Timoteo Cooper MD Attending physician Active Start: July 24, 2025 Dr. Timoteo Cooper MD Nurse Practitioner Active Start: July 24, 2025 Team Status: Active Member Role/Relationship Status Dates Alis Duran MD Primary care physician Active S tart: July 25, 2025 Dr. Denice Leal DO Emergency Departm ent Physician Active Start: July 25, 2025 Dr. Timoteo Cooper MD Admitting physician Active Start: July 25, 2025 Dr. Timoteo Cooper MD Nurse Practitioner Active Start: July 25, 2025 Dr. Myriam Aguilar DO Attending physician Active Start: July 25, 2025 Dr. Myriam Aguilar DO Nurse Practitioner Active S tart: July 25, 2025 Team Status: Active Member Role/Relationship Status Dates Alis Duran MD Primary care physician Active S tart: July 26, 2025 Dr. Denice Leal DO Emergency Departm ent Physician Active Start: July 26, 2025 Dr. Timoteo Cooper MD Admitting physician Active Start: July 26, 2025 Dr. Timoteo Cooper MD Nurse Practitioner Active Start: July 26, 2025 Dr. Myriam Aguilar DO Attending physician Active Start: July 26, 2025 Dr. Myriam Aguilar DO Nurse Practitioner Active S tart: July 26, 2025 Team Status: Inactive Member Role/Relationship Status Carole Duran MD Primary care physician Active S tart: August 02, 2025 End: August 02, 2025 Alis Duran MD Attending physician Active Star t: August 02, 2025 End: August 02, 2025 Team Status: Active Member Role/Relationship Status Carole Duran MD Primary care physician Active S tart: August 06, 2025 Cari Daley Attending physician Active Start: August 06, 2025 Team Status: Inactive Member Role/Relationship Status Carole Duran MD Primary care physician Active S tart: August 12, 2025 End: August 12, 2025 Alis Duran MD Referring Provider Active Start : August 12, 2025 End: August 12, 2025 Dr. León Mccray MD Attending physician Active Start: August 12, 2025 End: August 12, 2025 Team Status: Active Member Role/Relationship Status Carole Duran MD Primary care physician Active S tart: August 12, 2025 Dr. León Mccray MD Attending physician Active Start: August 12, 2025 Dr. León Mccray MD Referring Provider Active S tart: August 12, 2025 Team Status: Active Member Role/Relationship Status Carole Duran MD Primary care physician Active S tart: August 13, 2025 Dr. León Mccray MD Attending physician Active Start: August 13, 2025 Dr. León Mccray MD Referring Provider Active S tart: August 13, 2025 Team Status: Active Member Role/Relationship Status Carole Duran MD Primary care physician Active S tart: August 13, 2025 Dr. Myriam Aguilar DO Attending physician Active Start: August 13, 2025 Dr. Myriam Aguilar DO Referring Provider Active S tart: August 13, 2025 Team Status: Inactive Member Role/Relationship Status Carole Duran MD Primary care physician Active S tart: August 13, 2025 End: August 13, 2025 Dr. León Mccray MD Attending physician Active Start: August 13, 2025 End: August 13, 2025 Dr. León Mccray MD Referring Provider Active S tart: August 13, 2025 End: August 13, 2025 Team Status: Inactive Member Role/Relationship Status Carole Duran MD Primary care physician Active S tart: August 19, 2025 End: August 19, 2025 Alis Duran MD Referring Provider Active Start : August 19, 2025 End: August 19, 2025 Dr. León Mccray MD Attending physician Active Start: August 19, 2025 End: August 19, 2025 Team Status: Inactive Member Role/Relationship Status Carole Duran MD Primary care physician Active S tart: August 19, 2025 End: August 19, 2025 Alis Duran MD Referring Provider Active Start : August 19, 2025 End: August 19, 2025 Dr. León Mccray MD Attending physician Active Start: August 19, 2025 End: August 19, 2025 Team Status: Active Member Role/Relationship Status Carole Duran MD Primary care physician Active S tart: August 21, 2025 Dr. Myriam Aguilar DO Attending physician Active Start: August 21, 2025 Dr. Myriam Aguilar DO Referring Provider Active S tart: August 21, 2025 Team Status: Inactive Member Role/Relationship Status Carole Duran MD Primary care physician Active S tart: August 21, 2025 End: August 21, 2025 Vincenzo Chavarria MD Emergency Department Physician Activ e Start: August 21, 2025 End: August 21, 2025 Ordered Prescriptions (unrec ognized section and [...] 1 (one) time each day. 30 each 04/14/2022 10/11/2022 Goals (unrecognized section and content) [...] BE BASED ON THE PRIMARY CLINICAL RECORDS. [facility] [employer] [facility]. provides no warranty or guarantee of the accuracy or completeness of information in this document.
--- NOTE | 2025-10-09 18:05 | EX.ED.DYSGE1 ---
HPI History of Present Illness Chief Complaint: Neuro S/Sx Informant: patient and spouse/S.O. Onset/Context/Timing Onset: Today and Yesterday (Started around 2 PM yesterday.) Context: Gradual Onset Timing: Continuous Current Severity: Mild Maximum Severity: Mild Narrative Narrative: 45-year-old male history of cirrhosis secondary to [place], diabetes, CHF, anemia with transfusions. [place] significant other has had mental status change since yesterday has been more forgetful, dysarthria and having trouble doing simple math. He is also had chills but no fever. No vomiting. Loose stools. No dysuria. No headache or chest pain. No head trauma. No blood thinners. No history of stroke or mini stroke. Prior similar symptoms: No Recent Illness/Hospitalization: Yes [facility] Medical History Chronic venous stasis Anxiety Steatosis of liver SAÚL (obstructive sleep apnea) Kidney stones Cirrhosis Non-smoker Irregular heart beat Congestive heart failure (CHF) Chronic idiopathic thrombocytopenia Hx of cirrhosis Anemia HTN (hypertension) Diabetes Acid reflux Rectal bleeding Hemorrhoids Home Medications Medication Instructions Recorded Last Taken Type metformin 1,000 mg tablet 1,000 mg PO BID diabetes 01/28/25 10/09/25 History atorvastatin 20 mg tablet 20 mg PO DAILY cholesterol 07/21/25 10/09/25 History omeprazole 40 mg capsule,delayed 40 mg PO DAILY stomach 07/21/25 10/09/25 History release repaglinide 1 mg tablet 1 mg PO BID diabetes 07/21/25 10/09/25 History CPAP - Continuous Positive Airway 07/23/25 Unknown History Pressure([facility] INFORMATIONAL USE ONLY) bumetanide 2 mg tablet 2 mg PO BID #60 tabs 07/26/25 10/09/25 Rx nadolol 20 mg tablet 20 mg PO BID #60 tabs 07/26/25 10/09/25 Rx spironolactone 25 mg tablet 25 mg PO DAILY #30 tabs 07/26/25 10/09/25 Rx empagliflozin 10 mg tablet 10 mg PO QAM 10/03/25 10/09/25 History (Jardiance) ropinirole 0.5 mg tablet 0.5 mg PO QDAY 10/03/25 10/07/25 History potassium chloride 20 mEq 20 meq PO DAILY 10/09/25 10/07/25 History tablet,extended release Allergy/AdvReac Type Severity Reaction Status Date / Time No Known Allergies Allergy Verified 10/09/25 17:45 Family History Other Diabetes Heart disease Surgical History History of esophagogastroduodenoscopy (EGD) H/O umbilical hernia repair [place] teeth extracted Social History household members: spouse housing: house Smoking Status: Never smoker alcohol intake: never substance use type: does not use ROS ROS ED ROS Narrative Chills. Forgetful. Dysarthria. Constitutional Constitutional ED: Reports chills; Denies fever(s) Eyes Eyes: Denies blurry vision ENT ENT ED: Denies ear pain Cardiovascular Cardiovascular: Denies chest pain Respiratory/Chest Respiratory/Chest: Denies cough or dyspnea Gastrointestinal Gastrointestinal: Reports diarrhea; Denies abdominal pain, constipation, melena, nausea or vomiting Genitourinary Genitourinary ED: Denies dysuria or hematuria Musculoskeletal Musculoskeletal: Denies arthralgias or back pain Integumentary Denies abscess Neurologic Neurologic: Denies headache(s) Psychiatric Psychiatric: Denies anxiety or depression Hematologic/Lymphatic Hematologic/Lymphatic: Reports none Allergic/Immunologic Allergic/Immunologic ED: Denies mouth swelling, tongue swelling or urticaria EXAM Physical Exam Narrative Exam Narrative: Well-appearing 45-year-old male. Companied by his . Vital signs are stable afebrile. Does not look septic toxic. No distress. Pulse ox 100% on room air no signs hypoxia. H EENT exam pupils round react light. Moist mucous memories. Posterior pharynx unremarkable. No facial trauma. Neck nontender. No lymphadenopathy. No meningismus. Back nontender. Lungs clear to auscultation bilaterally. Heart regular rhythm rate about 65 no murmur. Chest wall ribs nontender. Abdomen soft nontender. No peritoneal signs. Pelvic girdle intact. Moving all 4 extremities. Wound on his right lower mid leg no acute infection no pus. No lymphangitic streaking. No cellulitis. Normal can inspector strength bilaterally. Normal dorsi plantarflexion. Noted drift. Neurologically is awake alert. Answering questions following commands. He has trouble doing simple math but he knows the month of the year, the year and the president he states he also knows where he is at. He does not know the day of the week but currently is not working to find that abnormal for him. Const Vital Signs: 10/09/25 17:40 10/09/25 18:01 10/09/25 18:13 Temperature 98.5 F Temperature Source Oral Pulse Rate 65 81 Respiratory Rate 16 19 H Blood Pressure 131/64 H 108/61 Blood Pressure Mean 86 76 Pulse Ox 100 98 Oxygen Delivery Method Room Air Room Air Room Air 10/09/25 18:31 10/09/25 19:01 10/09/25 20:00 Temperature Temperature Source Pulse Rate 81 84 80 Respiratory Rate 19 H 16 20 H Blood Pressure 114/53 L 108/59 L 114/55 L Blood Pressure Mean 73 75 74 Pulse Ox 97 98 96 Oxygen Delivery Method Room Air Room Air 10/09/25 21:00 10/09/25 22:00 10/09/25 23:00 Temperature Temperature Source Pulse Rate 80 82 82 Respiratory Rate 17 21 H 23 H Blood Pressure 116/57 L 121/60 H 131/63 H Blood Pressure Mean 76 80 85 Pulse Ox 97 97 99 Oxygen Delivery Method Room Air Room Air MDM MDM MDM Narrative Medical decision making narrative: 45-year-old male with mental status change, forgetfulness, decreased mental status since yesterday. With chills. This could be stroke or mini stroke. Could be secondary to infection versus other etiologies. CAT scan of the brain and neck will be obtained to be put through stroke protocol but not a stroke team called because his NIH is 0. Also an infectious etiology. Repeat exam around this time comfortably. I explained to him his test results. He is receiving IV fluids and we will get a repeat lactic acid around 10 PM. Repeat exam around 11 5 PM patient doing well. His lactic acid improved after IV fluids. His workup is unremarkable. He is comfortable being discharged home. Exam is normal and unchanged. Vital signs are unremarkable. History & Record Review Discussion w/independent historian: Patient and Family Additional record(s) reviewed:: Prior inpatient record, Prior outpatient record, Prior ED visit and No prior records Lab Data Attestation: I reviewed the patient's lab results. Lab results narrative: CBC shows a white count of 4.4. H&H of 10.1 and 31. PT/INR of 19 and 1. PTT at 36. Electrolytes show a potassium of 3.1. Gap 14. BUN and creatinine 10 and 0.8. Glucose 131. Lactic acid elevated 5.2. Repeat lactic acid was 3.3. Troponin is 8. CT brain and CTA head and neck was read as unremarkable per the radiologist. Chest x-ray unremarkable. COVID, flu, RSV are negative. Urinalysis is negative. No nitrates. No white or red cells. No bacteria. Ammonia is elevated 82. UA is normal. No nitrates. No white or red cells. No bacteria. Labs: Laboratory Results - last 24 hr 10/09/25 10/09/25 10/09/25 18:08 18:30 18:55 WBC 4.4 RBC 3.30 L Hgb 10.1 L Hct 31.2 L MCV 94.5 H MCH 30.6 MCHC 32.4 RDW Std Deviation 83.9 H RDW Coeff of Melina 24.4 H Plt Count TNP MPV TNP Immature Gran % (Auto) 0.200 Neut % (Auto) 50.3 Lymph % (Auto) 22.8 Woods % (Auto) 17.5 H Eos % (Auto) 7.8 H Baso % (Auto) 1.4 H Absolute Neuts (auto) 2.2 Absolute Lymphs (auto) 0.99 Nucleated RBC % 0 Differential Comment SCANNED Platelet Estimate SLT DEC Polychromasia 1+ Anisocytosis 2+ Macrocytosis 1+ PT 19.2 H INR 1.6 APTT 36.8 H Sodium 135 Potassium 3.1 L Chloride 100 Carbon Dioxide 21.8 Anion Gap 14 BUN 10 Creatinine 0.82 Estim Creat Clear Calc 162.59 Est GFR (MDRD) Non-Af 109 BUN/Creatinine Ratio 12.7 Glucose 131 H Lactic Acid 5.2 H* Calcium 8.4 Ammonia 82.7 H Troponin T High Sens 8 Troponin T Hi Sens 2 Hr Troponin T Hi Sens 4Hr Urine Color Urine Clarity Urine pH Ur Specific Burt Urine Protein Urine Glucose (UA) Urine Ketones Urine Occult Blood Urine Nitrite Urine Bilirubin Urine Urobilinogen Ur Leukocyte Esterase Urine RBC Urine WBC Ur Squamous Epith Cells Urine Bacteria Urine Mucus POC Glucose 113 H 10/09/25 10/09/25 10/09/25 19:27 20:25 22:08 WBC RBC Hgb Hct MCV MCH MCHC RDW Std Deviation RDW Coeff of Melina Plt Count MPV Immature Gran % (Auto) Neut % (Auto) Lymph % (Auto) Woods % (Auto) Eos % (Auto) Baso % (Auto) Absolute Neuts (auto) Absolute Lymphs (auto) Nucleated RBC % Differential Comment Platelet Estimate Polychromasia Anisocytosis Macrocytosis PT INR APTT Sodium Potassium Chloride Carbon Dioxide Anion Gap BUN Creatinine Estim Creat Clear Calc Est GFR (MDRD) Non-Af BUN/Creatinine Ratio Glucose Lactic Acid 3.3 H* Calcium Ammonia Troponin T High Sens Troponin T Hi Sens 2 Hr 9 Troponin T Hi Sens 4Hr Urine Color Yellow Urine Clarity Clear Urine pH 6.5 Ur Specific Burt 1.010 Urine Protein 30 H Urine Glucose (UA) 1000 H Urine Ketones Negative Urine Occult Blood 10 H Urine Nitrite Negative Urine Bilirubin Negative Urine Urobilinogen 8 H Ur Leukocyte Esterase Negative Urine RBC 0-5 SEEN Urine WBC 0-5 SEEN Ur Squamous Epith Cells 0 SEEN Urine Bacteria 0 SEEN Urine Mucus 0 SEEN POC Glucose 10/09/25 22:10 WBC RBC Hgb Hct MCV MCH MCHC RDW Std Deviation RDW Coeff of Melina Plt Count MPV Immature Gran % (Auto) Neut % (Auto) Lymph % (Auto) Woods % (Auto) Eos % (Auto) Baso % (Auto) Absolute Neuts (auto) Absolute Lymphs (auto) Nucleated RBC % Differential Comment Platelet Estimate Polychromasia Anisocytosis Macrocytosis PT INR APTT Sodium Potassium Chloride Carbon Dioxide Anion Gap BUN Creatinine Estim Creat Clear Calc Est GFR (MDRD) Non-Af BUN/Creatinine Ratio Glucose Lactic Acid Calcium Ammonia Troponin T High Sens Troponin T Hi Sens 2 Hr Troponin T Hi Sens 4Hr Cancelled Urine Color Urine Clarity Urine pH Ur Specific Burt Urine Protein Urine Glucose (UA) Urine Ketones Urine Occult Blood Urine Nitrite Urine Bilirubin Urine Urobilinogen Ur Leukocyte Esterase Urine RBC Urine WBC Ur Squamous Epith Cells Urine Bacteria Urine Mucus POC Glucose Radiography Chest X-Ray - ED: 2 View, Read by ED Physician, Read by Radiologist, Normal, Heart, Lungs, Mediastinum, Bony Structures, No Acute Disease and Chronic Changes Diagnostic Testing: Clinical Impression(s) from Imaging Studies Brain CT 10/09/25 18:01 IMPRESSION: No acute, large territorial infarction. Stroke Alert: Negative The critical findings in the findings and impression above were relayed directly by me by telephone to Jamel Mccartney on 10/09/2025 at 7:06 pm with readback verification. Reading Location: [facility] Chest X-Ray 10/09/25 18:01 IMPRESSION: NO ACUTE FINDINGS. Reading [facility] Head/Neck CTA 10/09/25 18:02 IMPRESSION: No acute large vessel occlusion or high-grade stenosis. Question avulsion fracture at the anterior superior endplate of C5 of indeterminate acuity. The critical findings in the findings and impression above were relayed directly by me by telephone to Jamel Mccartney on 10/09/2025 at 7:09pm with readback verification. Reading Location: [facility] Chest x-ray, 2 views, AP and lateral, interpreted by myself and the radiologist shows normal cardiac silhouette. Normal lung quiñones. No pneumonia. No effusions. No acute process. Rhythm Strip Rhythm Strip: Sinus Rhythm Rate: 78 Ectopy: None EKG Initial EKG: Attestation: I personally reviewed and interpreted this EKG as follows: Interpretation: Sinus Rhythm and No Acute Injury Pattern Comments: Normal sinus rhythm rate of 78 no acute signs of IL or ischemia. Discharge Plan Triage Chief Complaint: Neuro S/Sx ED Provider: Jamel Mccartney Dx/Rx/DC Orders Clinical Impression: Viral syndrome Instructions: ED Viral Syndrome (Adult) Prescriptions: No Action metformin 1,000 mg tablet 1,000 mg PO BID ropinirole 0.5 mg tablet 0.5 mg PO QDAY Jardiance 10 mg tablet 10 mg PO QAM potassium chloride 20 mEq tablet extended release 20 meq PO DAILY atorvastatin 20 mg tablet 20 mg PO DAILY omeprazole 40 mg capsule,delayed release(DR/EC) 40 mg PO DAILY repaglinide 1 mg tablet 1 mg PO BID (DME) CPAP - Continuous Positive Airway Pressure([facility] INFORMATIONAL USE ONLY) Device See Rx Instructions .Route Rx Instructions: As directed nadolol 20 mg Tablet 20 mg PO BID Qty: 60 0RF spironolactone 25 mg Tablet 25 mg PO DAILY Qty: 30 0RF bumetanide 2 mg tablet 2 mg PO BID Qty: 60 0RF Primary Care Provider: Alis Mace Referrals: Alis Mace MD [Primary Care Provider, Family Practice] - 3-5 Days Activity Restrictions/Additional Instructions: Test clinically looked good. Ear exams unremarkable. This may have been a viral syndrome. Fluids. Follow-up with your doctor in the next several days. If you are feeling worse return to the emergency department. Print Language: Malay Disposition Disposition: Home, Self Care
[2025-10-09 18:44] LABS: Hematocrit 31.2 % (40-54); Hemoglobin 10.1 g/dL (13.0-16.5); Immature Granulocytes Count 0.010 X10^3/uL (0.0-0.0); Mean Corp Hgb Conc 32.4 g/dL (32-36); Mean Corpuscular Volume 94.5 fL (80-94); NRBC Flagged by Analyzer 0 % (0-5); POSITIVE COUNT YES; POSITIVE MORPHOLOGY YES; RBC Distribution Width CV 24.4 % (11.6-14.6); RBC Distribution Width SD 83.9 fl (35.1-43.9); Red Blood Count 3.30 M/mm3 (4.6-6.2); White Blood Count 4.4 K/mm3 (4.4-11.0)
[2025-10-09 18:54] LABS: Prothrombin Time (Protime)PT. 19.2 SECONDS (11.7-14.9)
[2025-10-09 18:55] LABS: Partial Thromboplast Time 36.8 Seconds (24.1-36.2)
[2025-10-09 19:01] LABS: Differential Indicated SCAN CRITERIA MET
[2025-10-09 19:08] LABS: Anion Gap 14 (5-15); BUN 10 mg/dL (4-19); BUN/Creat Ratio 12.7 RATIO (10-20); Calcium,Total 8.4 mg/dL (7.6-11.0); Carbon Dioxide 21.8 mmol/L (21.0-32.0); Chloride 100 mmol/L (98-108); Estimated Creatinine Clearance 162.59 ml/min (50-250); Glucose 131 mg/dL (70-99); Potassium 3.1 mmol/L (3.3-5.1); Troponin T High Sensitivity 8 ng/L (<=22)
[2025-10-09 19:30] LABS: Ammonia 82.7 umol/L (16-60)
[2025-10-09 19:39] LABS: Mucous, Urine 0 SEEN /hpf (<or=2+); Squamous Epithelial Cells - UA 0 SEEN /hpf (0-5)
[2025-10-09 19:48] LABS: Glucose, Dipstick 1000 mg/dl (Normal); Ketone-Dipstick Negative (Negative); Leukocyte Esterase-Dipstick Negative /ul (Negative); Nitrite-Dipstick Negative (Negative); Occult Blood-Urine 10 /ul (Negative); Protein-Dipstick 30 mg/dl (Negative); Specific Gravity, Urine 1.010 (1.002-1.030); Urine Bilirubin Dipstick Negative (Negative)
[2025-10-09 19:53] LABS: Color, Urine Yellow (Yellow)
[2025-10-09 19:54] LABS: Red Blood Cells-Urine 0-5 SEEN /hpf (0-5)
[2025-10-09 20:09] LABS: Differential Comment SCANNED
[2025-10-09 20:11] LABS: Anisocytosis 2+; Polychromasia 1+
[2025-10-09 20:12] LABS: Macrocytosis 1+
[2025-10-09] MEDS: 0.9% Normal Saline (1000mL) 1,000 ML 999 ML IV (20:24)
[2025-10-09 20:50] LABS: Troponin T High Sens 2 HR 9 ng/L (<=22)
[2025-10-09 22:35] LABS: Reflex Lactate? Y
[2025-10-10 02:14] LABS: Reflex Lactate? Y
== END 2025-10-09 23:35 | disposition home or self-care (01) ==
PROVIDERS: Emergency Provider Emergency Medicine; PCP Family Medicine; Visit Provider Emergency Medicine
DX: B34.9 Viral infection, unspecified (principal); E11.9 Type 2 diabetes mellitus without complications; I10 Essential (primary) hypertension; Z79.84 Long term (current) use of oral hypoglycemic drugs; Z79.899 Other long term (current) drug therapy
CPT/HCPCS: 70450; 70496; 70498; 71046; 80048; 81001; 82140; 82962; 83605; 84484; 85025; 85610; 85730; 87631; 93005; 96360; 96361; 99284; Q9967; A4216

== ENCOUNTER → 2025-10-22 | Outpatient (CLI) | payer BC, SELFPAY ==
--- NOTE | 2025-10-22 07:18 | US_ITS ---
PROCEDURE: ABD LIMITED W/ ELASTOGRAPHY REASON FOR EXAM: FATTY LIVER, CIRRHOSIS COMPARISON: None. TECHNIQUE: Procedure Code: [id number] Modality: US Procedure: ABD LIMITED W/ ELASTOGRAPHY Right upper quadrant abdominal ultrasound. Yenny wave elastography for non- invasive assessment of liver tissue stiffness. FINDINGS: LIVER: Size: Unremarkable Length: 15.1 cm Echotexture: Coarse heterogeneous echo architecture of the liver parenchyma. Contour: Normal Lesions: None identified Elastography: Measurements were not within range. GALLBLADDER: Small 5 mm stone near the gallbladder neck. COMMON BILE DUCT: Normal . PANCREAS: Not visualized. The right kidney measured 12.4 x 4.9 x 6.6 cm. There is no stone or hydronephrosis. There is normal renal echo architecture. US/ABD Limited w/ Elastography IMPRESSION: Elastography could not be obtained due to technical difficulties. Parameters w ere not in diagnostic range. Cholelithiasis. No evidence of acute cholecystitis. Normal biliary tree. Coarse heterogeneous echo architecture of the liver parenchyma likely related t o intrinsic liver disease. No focal liver mass. Reading Location: [id number]
--- OUTSIDE RECORDS SUMMARY | 2025-10-22 07:19 | XMS RPT_ITS | CCD ---
Author Organization [facility] ion [facility] Care Team Providers Care Formula Bottler Name Role Phone Lala VILLALOBOS Referring Unavailable [...] Provider Zack Vigil MD Primary Care Provider [phone] THOM ONEILL Referring Unavailable ZACK VIGIL Primary Care Unavailable TAD [phone], TAD OCHOA Attending Un available TAD [phone], TAD OCHOA Referring Un available ZACK VIGIL Primary Care Unavailable VINCENT MOSES Attending Unavailable GAJONAS MCGEE Referring Unavailable SHOAPSZACK Primary Care Unavailable Zack Vigil MD Primary Care Provider [phone] JOCELYNE TRACEY Attending Unavailable ZACK VIGIL Primary [...] CARPIO, Dr. Melo Attending Provider Roger CARPIO, Alis Attending Provider Roger CARPIO, Alis Primary Care Provider Roger CARPIO, Alis Referring Provider McMorrow VULCANIZER OPERATOR-C, Yusef Attending Provider McMorrow VULCANIZER OPERATOR-C, Yusef Referring Provider Dr. Denice Leal DO [...] Physician Alis Duran MD Attending Physician McMorrow VULCANIZER OPERATOR-C, Yusef Attending Physician Marj CARPIO, Dr. Kalia Ness Attending Physician Dr. Denice Leal DO Emergency Department Physi kallie Kenneth CARPIO, Dr. Mahmood Admitting Physician Kenneth CAPRIO, Dr. Mahmood Nurse Practitioner Jeff ROBERT, Dr. [...] Deon CARPIO, Vincenzo Emergency Department Physician Kenneth, Tiomteo Admitting Unavailable Kenneth, Timoteo Attending Unavailable Kenneth, Timoteo Consulting Unavailable Roger, Chalon Primary Care Unavailable Cari Daley Attending Unavailable Roger, Chalon Primary Care Unavailable McMorrow VULCANIZER OPERATOR, Yusef Referring Unavailable McMorrow VULCANIZER OPERATOR, Yusef Attending Unavailable Roger, Chalon Primary Care [...] Primary Care Unavailable Roger, Chalon Referring Unavailable Pracyndi, León Attending Unavailable Roger, Chalon Primary Care Unavailable Roger, Chalon Referring Unavailable Jocelyne Henley Attending Unavailable Roger, Chalon Primary Care Unavailable Roger, Chalon Referring Unavailable Lorie Willson Attending Unavailable Roger, Chalon Primary Care Unavailable Allergies Allergy Classification Reported Allergen(s) Allergy Type Date of Onset Reaction(s) Facility (2 sources) Spironolactone; Translations: [SPIRONOLACTONE] Drug Allergy 10-14-2023 [facility] Primary Care Physicians Medications Current Medications Medication Drug Class(es) Dates Sig (Normalized) Sig (Original) atenolol 25 mg oral tablet (9 sources) beta-Adrenergic Apolinra Start: 08-24-2023 End: 12-08-2024 take 1 tablet [...] twice daily Cpap - Continuous Positive Airway Pressure([facility] Informational Use Only) device (7 sources) Start: 07-23-2025 Cpap - Continu ous Positive Airway Pressure([facility] Informational Use Only) device Active 0 .Route July 23, 2025 12:00am saúl As directed Start: 07-23-2025 Cpap - Continu ous Positive Airway Pressure([facility] Informational Use Only) device Active 0 .ROUTE [...] times a day Stool softener Can get [id number] for 7 days . 14 capsule 0 [...] Start: 01-18-2016 take 1 capsule by mo [facility] once daily 30 minutes before breakfast [...] long-term current use of insulin (CMS/HCC) (FORMERLY [facility]) Take 1 tablet by mouth 1 time [...] 2 tablets by mouth if needed. Active [id number] 200 actuat albuterol 0.09 mg/actuat metered dose [...] Summary (1)on 025 PT D/C Summary (1) [facility] Physical Therapy [facility] [address] [place] [address]. [address] [place] [address] / REHABILITATION SERVICES DISCHARGE SUMMARY MR#: [id number] Acct: [id number] Name: LEON RIDER Rep #: [id number] : 1980 45 From: Carlos Bowden DPT, [...] please feel free to call me at [phone]. Thank you for the referral of this patient. Sincerely, Carlos Bowden, DPT, OCS, CSCS Balance/Gait/Functional tests Balance/Special Test Scores Functional Gait Assessment Score: 27 % Disability: 10.0000 Lower Extremity Functional Score: 74 TUG Test Time Seconds: 8 Tug Test: <20 sec.=mostly independent 30 Second Chair Rise Test Seconds: 8 Improvement % Improvement: 90 09/16/25 9081 CC: Dr. Alis Duran MD; Dr. Myriam Aguilar DO EBG Signed Normal [facility] Cardiology Visit Reporton Cardiology Visit Report [facility] [address] [place] [address] OFFICE VISIT Date of Service: 09/09/25 MR#: [id number] Acct: [id number] Name: LEON RIDER Rep #: [id number] : 1980 Provider: Dr. 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 Required: No Accompanied by: Self Is patient [...] - Continuous Positive Airway 07/23/25 08/19/25 History Pressure([facility] INFORMATIONAL USE ONLY) bumetanide 2 mg tablet [...] esophagogastroduodenosc opy (EGD) H/O umbilical hernia repair [place] teeth extracted Family History Other Diabetes Heart disease Social History household members: spouse housing: house Smoking Status: Never smoker alcohol intake: never substance use type: does not use ROS Const Const: Positive for fatigue (dx: anemia); Negative for weakness Eyes Eyes: Negative for change in vision ENT ENT: Positive for dizziness (right ear drum rup (more content not included)... Normal [facility] Absolute lymphocyte countOrd ered By: Vincenzo Chavarria on 08-21-2025 Lymphocytes Auto (Unsp spec) [#/Vol] 1.11 10*3/uL 0.83-4.51 [facility] Absolute neutrophil countOrd ered By: Vincenzo Chavarria on 08-21-2025 Neutrophils (Bld) [#/Vol] 3.6 10*3/uL 2.0-7.7 [facility] Anion gap in Serum or Plasma Ordered By: Vincenzo Chavarria on 08-21-2025 Anion gap [Moles/Vol] 20 mmol/L High 5-15 [facility] Automated lymphocyte count a s percentage of total leukocytesOrdered By: Vincenzo Chavarria on 08-21-2025 Lymphocytes/100 WBC Auto (Unsp spec) 17.7 % Low 19-41 [facility] BUN/creatinine ratioOrdered By: Vincenzo Chavarria on 08-21-2025 Urea nitrogen/Creatinine [Mass ratio] 18.2 mg/mg 09-02 [facility] Basic Metabolic Profile (BMP )on 08-21-2025 BUN/CRE 18.2 RATIO Normal 09-02 [facility] Comment on above: Performed By: #### L 501.080 #### [facility] [address] [place], [place], [address] Calcium [Mass/Vol] 9.0 mg/dL Normal 7.6-11.0 [facility] Comment on above: Performed By: #### L 501.080 #### [facility] [address] [place], [address] Chloride [Moles/Vol] 96 mmol/L Low 98-[address] [facility] Comment on above: Performed By: #### L 501.080 #### [facility] [address] [place], [address] CO2 [Moles/Vol] 21.1 mmol/L Normal 21.0-32.0 [facility] Comment on above: Performed By: #### L 501.080 #### [facility] [address] [place], [address] Creatinine [Mass/Vol] 0.82 mg/dL Normal 0.70-1.20 [facility] Comment on above: Performed By: #### L 501.080 #### [facility] [address] [place], [address] ECRCL 160.45 ml/min Normal 50-250 [facility] Comment on above: Performed By: #### L 501.080 #### [facility] [address] [place], [address] GAP 20 High 5-15 [facility] Comment on above: Performed By: #### L 501.080 #### [facility] [address] [place], [address] GFR/1.73 sq M.predicted among non-blacks MDRD (S/P/Bld) [Vol rate/Area] 109 mL/min/{1.73_m2} Normal >60 [facility] Comment on above: Result Comment: mL/m in/1.73m2 CKD-EPI Creatinine Equation (2020) Performed By: #### L 501.080 #### [facility] [address] [place], [address] Glucose [Mass/Vol] 83 mg/dL Normal 70-99 [facility] Comment on above: Performed By: #### L 501.080 #### [facility] [address] [place], [address] Potassium [Moles/Vol] 3.4 mmol/L Normal 3.3-5.1 [facility] Comment on above: Performed By: #### L 501.080 #### [facility] [address] [place], [address] Sodium [Moles/Vol] 136 mmol/L Normal 133-145 [facility] Comment on above: Performed By: #### L 501.080 #### [facility] [address] [place], [address] Urea nitrogen [Mass/Vol] 15 mg/dL Normal 4-19 [facility] Comment on above: Performed By: #### L 501.080 #### [facility] [address] [place], [place], [address] Basophil percentageOrdered B y: Vincenzo Chavarria on 08-21-2025 Basophils/100 WBC (Bld) 1.6 % High 0-1 [facility] Bilirubin Test strip Ql (U)O rdered By: Vincenzo Chavarria on 08-21-2025 Bilirubin Ql (U) Negative Negative [facility] Blood manual differential co mment interpretation (narrative result)Ordered By: Vincenzo Chavarria on 08-21-2025 Manual differential comment Hans (Bld) [Interp] SCANNED [facility] Blood polychromasia detectio n by light microscopyOrdered By: Vincenzo Chavarria on 08-21-2025 Polychromasia LM Ql (Bld) 1+ [facility] Brain/Head without Contrasto n 08-21-2025 Brain/Head without Contrast [facility] [address] [place], [place] [id number] Brain/Head without Contrast MR#: [id number] Acct: [id number] Name: LEON RIDER Rep #: [id number] : 1980 M 45 From: Elieser Morrison MD PCP: Dr. Alis Duran MD Status: REG ER Study: Brain/Head without Contrast Date of Exam: 07/08 Exam# [id number] Ordering Dr: Vincenzo Chavarria MD EXAM: CT [...] evaluation with MRI is recommended. Reading Location: [facility] CC: Dr. Vincenzo Chavarria MD; Dr. Alis Duran MD Sound Assistant: Signed Normal [facility] CBC W/Diff, Automatedon POLYCHROMASIA 1+ Normal [facility] Comment on above: Performed By: #### L 501.080 #### [facility] [address] [place], [address] Anisocytosis Ql (Bld) 2+ Normal [facility] Comment on above: Performed By: #### L 501.080 #### [facility] [address] [place], [address] PLT EST SLT DEC Normal ADEQ [facility] Comment on above: Performed By: #### L 501.080 #### [facility] [address] [place], [address] SMEAR COMMENT SCANNED Normal [facility] Comment on above: Performed By: #### L 501.080 #### [facility] [address] [place], [place], [address] MPV TNP Normal 6.2-12.0 [facility] Comment on above: Performed By: #### L 501.080 #### [facility] [address] [place], [place], [address] PLT TNP Normal 150-450 [facility] Comment on above: Result Comment: Arnie khan note: For this sample, a platelet estimate is provided rather than a platelet count due to platelet clumping. Other parameters associated with this sample are not affected by platelet clumping. If a more accurate platelet count is required, a redraw of the patient will be necessary. Performed By: #### L 501.080 #### [facility] [address] [place], [place], [address] Carbon dioxide, total [Moles /volume] in Central venous bloodOrdered By: Vincenzo Chavarria on 08-21-2025 CO2 [Moles/Vol] 21.1 mmol/L 21.0-32.0 [facility] Chest 1 View (Portable)on Chest 1 View (Portable) [facility] [address] [place], [place] [address] Chest 1 View (Portable) MR#: [id number] Acct: [id number] Name: LEON RIDER Rep #: [id number] : 1980 M 45 From: Elieser Morrison MD PCP: Dr. Alis Duran MD Status: REG ER Study: Chest 1 View (Portable) Date of Exam: 08/21/25 Exam# [id number] Ordering Dr: Vincezno Chavarria MD EXAM: XR Chest, 1 View CLINICAL INDICATION: CONGESTIVE HEART FAILURE TECHNIQUE: Frontal view of the chest. COMPARISON: No relevant prior studies available. FINDINGS: LUNGS AND PLEURAL SPACES: See below. HEART: Cardiomegaly with mild congestion. MEDIASTINUM: Unremarkable. Normal mediastinal contour. BONES/JOINTS: Unremarkable. No acute fracture. RAD/Chest 1 View (Portable) IMPRESSION: Cardiomegaly with mild congestion. Reading Location: [facility] CC: Dr. Vincenzo Chavarria MD; Dr. Alis Duran MD Sound Assistant: Signed Normal [facility] Chloride assayOrdered By: Dez Chavarria on 08-21-2025 Chloride [Moles/Vol] 96 mmol/L Low 98-[address] [facility] Emergency Department Summary on 08-21-2025 Emergency Department Summary [facility] Medical Records Department [address] [place] [address] Emergency Department Summary 08/21/25 MR#: [id number] Acct: [id number] Name: LEON RIDER Rep #: [id number] : 1980 45 From: Vincenzo Chavarria MD [...] feel slightly off balance when he walks. [facility] Medical History Kidney stones Cirrhosis Non-smoker Irregular [...] - Continuous Positive Airway 07/23/25 Unknown History Pressure([facility] INFORMATIONAL USE ONLY) bumetanide 2 mg tablet [...] disease Surgical History H/O umbilical hernia repair [place] teeth extracted Social History household members: spouse [...] 08/21/25 19: (more content not included)... Normal [facility] Eosinophil percentageOrdered By: Vincenzo Chavarria on 08-21-2025 Eosinophils/100 WBC (Bld) 8.8 % High 0-5 [facility] Erythrocyte distribution wid th ratioOrdered By: Vincenzo Chavarria on 08-21-2025 Erythrocyte distribution width (RBC) [Ratio] 23.9 % High 11.6-14.6 [facility] Erythrocyte distribution wid th standard deviationOrdered By: Vincenzo Chavarria on 08-21-2025 Erythrocyte distribution width (RBC) [Ratio] 73.9 fl High 35.1-43.9 [facility] Glomerular filtration rate ( GFR) estimation/1.73 sq m using serum, plasma, or whole bOrdered By: Vincenzo Chavarria on 08-21-2025 GFR/1.73 sq M.predicted among non-blacks MDRD (S/P/Bld) [Vol rate/Area] 109 mL/min/{1.73_m2} >60 [facility] Comment on above: mL/min/1.73m2 CKD-EP I Creatinine Equation (2020) Hematocrit Auto (Bld) [Volum e fraction]Ordered By: Vincenzo Chavarria on 08-21-2025 Hematocrit (Bld) [Volume fraction] 32.6 % Low 40-54 [facility] Hemoglobin measurementOrdere d By: Vincenzo Chavarria on 08-21-2025 Hemoglobin (Bld) [Mass/Vol] 10.4 g/dL Low 13.0-16.5 [facility] Immature granulocytes/100 WB C Auto (Bld)Ordered By: Vincenzo Chavarria on 08-21-2025 Immature granulocytes/100 WBC (Bld) 0.300 % 0.0-0.9 [facility] Comment on above: IG% - Immature Granu locytes (promyelocytes, myelocytes and metamyelocytes) > 1% indicates that a LEFT SHIFT is Present. Ketones Test strip Ql (U)Ord ered By: Vincenzo Chavarria on 08-21-2025 Ketones Ql (U) 5 mg/dl High Negative [facility] - Hematology and Cell countsOrdered By: Vincenzo Chavarria on 08-21-2025 Anisocytosis Ql (Bld) 2+ [facility] MCV (mean corpuscular volume ) determinationOrdered By: Vincenzo Chavarria on 08-21-2025 MCV (RBC) [Entitic vol] 84.9 fL 80-94 [facility] Mean corpuscular hemoglobin (MCH) determinationOrdered By: Vincenzo Chavarria on 08-21-2025 MCH (RBC) [Entitic mass] 27.1 pg 27.0-32.0 [facility] Mean corpuscular hemoglobin concentration (MCHC) determinationOrdered By: Vincenzo Chavarria on 08-21-2025 MCHC (RBC) [Mass/Vol] 31.9 g/dL Low 32-36 [facility] Mean platelet volume determi nationOrdered By: Vincenzo Chavarria on 08-21-2025 Mean platelet volume determination TNP [facility] Comment on above: Test not performed Microscopic analysis of urin e for red blood cells (RBC)Ordered By: Vincenzo Chavarria on 08-21-2025 Microscopic analysis of urine for red blood cells (RBC) 0-5 SEEN /hpf 0-5 [facility] Monocyte percentageOrdered B y: Vincenzo Chavarria on 08-21-2025 Monocytes/100 WBC (Bld) 14.2 % High 0-10 [facility] Mucus LM Ql (Urine sed)Order ed By: Vincenzo Chavarria on 08-21-2025 Mucus Ql (Urine sed) 0 SEEN /hpf [facility] Natriuretic peptide.B prohor reji N-Terminal [Mass/volume] in Serum or PlasmaOrdered By: Vincenzo Chavarria on 08-21-2025 Natriuretic peptide.B prohormone N-Terminal [Mass/Vol] 188 pg/mL <450 [facility] Comment on above: Heart Failure Unlike ly: < 300 pg/mLHeart Failure Likely< 50 Years: > 450 pg/mL50-75 Years: > 900 pg/mL>75 Years: > 1800 pg/mL Neutrophil percentageOrdered By: Vincenzo Chavarria on 08-21-2025 Neutrophils/100 WBC (Bld) 57.4 % 47-70 [facility] Nitrite Test strip Ql (U)Ord ered By: Vincenzo Chavarria on 08-21-2025 Nitrite Ql (U) Negative Negative [facility] Nucleated red blood cell per centageOrdered By: Vincenzo Chavarria on 08-21-2025 Nucleated RBC/100 WBC (Bld) [Ratio] 0 % 0-5 [facility] Platelet countOrdered By: Dez Chavarria on 08-21-2025 Platelet count TNP [facility] Comment on above: Test not performedPl ease [...] Ql (Bld) SLT DEC ADEQ [facility] Potassium measurement (mass/ volume)Ordered By: Vincenzo Chavarria on 08-21-2025 Potassium (Unsp spec) [Mass/Vol] 3.4 mmol/L 3.3-5.1 [facility] Pro- Brain NATRIURETIC PEPTI Chaparro 08-21-2025 Natriuretic peptide B (Bld) [Mass/Vol] 188 pg/mL Normal <=450 [facility] Comment on above: Result Comment: Hear t Failure Unlikely: < 300 pg/mL Heart Failure Likely < 50 Years: > 450 pg/mL 50-75 Years: > 900 pg/mL >75 Years: > 1800 pg/mL Performed By: #### L 501.080 #### [facility] [address] [place], [address] Protein Test strip Ql (U)Ord ered By: Vincenzo Chavarria on 08-21-2025 Protein Ql (U) 15 mg/dl High Negative [facility] RBC Auto (Bld) [#/Vol]Ordere d By: Vincenzo Chavarria on 08-21-2025 RBC (Bld) [#/Vol] 3.84 10*6/uL Low 4.6-6.2 [facility] Serum creatinine measurement (mass/volume)Ordered By: Vincenzo Chavarria on 08-21-2025 Creatinine [Mass/Vol] 0.82 mg/dL 0.70-1.20 [facility] Serum glucose measurement (m ass/volume)Ordered By: Vincenzo Chavarria on 08-21-2025 Glucose [Mass/Vol] 83 mg/dL 70-99 [facility] Serum or plasma calcium wilfred urement (mass/volume)Ordered By: Vincenzo Chavarria on 08-21-2025 Calcium [Mass/Vol] 9.0 mg/dL 7.6-11.0 [facility] Serum or plasma urea nitroge n measurement (mass/volume)Ordered By: Vincenzo Chavarria on 08-21-2025 Urea nitrogen [Mass/Vol] 15 mg/dL 4-19 [facility] Sodium levelOrdered By: Vincenzo Chavarria on 08-21-2025 Sodium [Moles/Vol] 136 mmol/L 133-145 [facility] Squamous epithelial cells de tection in urine sediment by light microscopyOrdered By: Vincenzo Chavarria on 08-21-2025 Epithelial cells.squamous LM Ql (Urine sed) 0-5 SEEN /hpf 0-5 [facility] Urinalysis, Completeon 08-21 EPI,SQUAMOUS 0-5 SEEN Normal 0-5 [facility] Comment on above: Order Comment: CLEAN CATCH Performed By: #### L 501.080 #### [facility] [address] [place], [address] RBC 0-5 SEEN Normal 0-5 [facility] Comment on above: Order Comment: CLEAN CATCH Performed By: #### L 501.080 #### [facility] [address] [place], [address] WBC 0-5 SEEN Normal 0-5 [facility] Comment on above: Order Comment: CLEAN CATCH Performed By: #### L 501.080 #### [facility] [address] [place], [address] BACTERIA 0 SEEN Normal None Seen [facility] Comment on above: Order Comment: CLEAN CATCH Performed By: #### L 501.080 #### [facility] [address] [place], [address] Mucus Ql (Urine sed) [address] [facility] Comment on above: Order Comment: CLEAN CATCH Performed By: #### L 501.080 #### [facility] [address] [place], [address] Urine clarityOrdered By: Anastacia Chavarria on 08-21-2025 Clarity (U) Cloudy Clear [facility] Urine color determinationOrd ered By: Vincenzo Chavarria on 08-21-2025 Color (U) Yellow Yellow [facility] Urine glucose detectionOrder ed By: Vincenzo Chavarria on 08-21-2025 Glucose Ql (U) Normal mg/dl Normal [facility] Urine leukocyte esterase det ection by dipstickOrdered By: Vincenzo Chavarria on 08-21-2025 Leukocyte esterase Test strip Ql (U) Negative Negative [facility] Urine pHOrdered By: Vincenzo ace on 08-21-2025 pH (U) 6.0 [pH] 5.0 - 8.0 [facility] Urine sediment bacteria coun t by microscopy (number/high power field)Ordered By: Vincenzo Chavarria on 08-21-2025 Bacteria LM.HPF (Urine sed) [#/Area] 0 /[HPF] None Seen [facility] Urine specific gravity measu rementOrdered By: Vincenzo Chavarria on 08-21-2025 Specific gravity (U) [Rel density] 1.020 1.002-1.03 0 [facility] Urine urobilinogen measureme ntOrdered By: Vincenzo Chavarria on 08-21-2025 Urobilinogen Ql (U) 1 mg/dl High Normal [facility] White blood cell (WBC) count Ordered By: Vincenzo Chavarria on 08-21-2025 WBC (Bld) [#/Vol] 6.3 10*3/uL 4.4-11.0 [facility] White blood cell countOrdere d By: Vincenzo Chavarria on 08-21-2025 White blood cell count 0-5 SEEN /hpf 0-5 [facility] Oncology Visit Reporton Oncology Visit Report [facility] [place] [address] [place] [address]. [place] [address] OFFICE VISIT Date of Service: 08/19/25 1447 MR#: [id number] Acct: [id number] Name: LEON RIDER Rep #: [id number] : 1980 From: León Mccray MD Age/Sex: 45/M Location: [facility] Status: Signed HPI Subjective Date of Service 08/19/25 Chief Complaint F/u for anemia. 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 He has had esophageal varices which has been banded in [place]. Denies recent bleeding. Had blood work done and comes for follow up. [facility]els well[facility] Hx of cirrhosis Anemia Chronic idiopathic thrombocytopenia HTN (hypertension) Diabetes Acid reflux Rectal bleeding Hemorrhoids Surgical History H/O umbilical hernia repair [place] teeth extracted Family History Other Diabetes Heart [...] - Continuous Positive Airway 07/23/25 08/19/25 History Pressure([facility] INFORMATIONAL USE ONLY) bumetanide 2 mg tablet [...] applicable) CC: (more content not included)... Normal [facility] Haptoglobinon 08-13-2025 HAPTOGLOBIN 38 mg/dL Normal 23-355 [facility] Comment on above: Result Comment: Perf ormed at: - [address] [id number] [employer]: Tres Cm PhD, Phone: [phone] Performed By: #### L 500.2260, L100.0100 #### [facility] [address] [place], [address] Inital Evaluation (1) - PTon 08-13-2025 Inital Evaluation (1) - PT [facility] [place] [address] / REHABILITATION SERVICES INITIAL EVALUATION MR#: [id number] Acct: [id number] Name: LEON RIDER Rep #: [id number] : 1980 45 From: Carlos Bowden DPT, OCS, CSCS Referring Dr.: Dr. Myriam Aguilar DO Status: REG RCR Insurance: [employer] SELF PAY INSURANCE Patient's Visit Information [...] Getting around poorly limits him. 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 For Medicare only, by signing this I certify the plan of care. Please let me know if there are questions or concerns regarding this plan of care. Physician Signature: Date: 08/13/25 1312 CC: Dr. Alis Duran MD; Dr. Myriam Aguilar DO EBG Signed Normal [facility] Stool Occult Blood iFOBon STOB Normal Reference Ran ge = Negative Immunochemical Fecal Occult Blood (iFOBT) method. Hemoccult Stl Ql IA Limitation: Menstrual bleeding, constipation bleeding, bleeding hemorrhoids, and urinary bleeding conditions may interfere with test. Occult Blood A Positive A OCCULT BLOOD POSITIVE Normal [facility] Comment on above: Performed By: #### L 501.080 #### [facility] [place], [address] Stool gastrointestinal hemog lobin detection by immunologic methodOrdered By: León Mccray on 08-13-2025 Lower GI hemoglobin IA Ql (Stl) Positive Abnormal [facility] Absolute lymphocyte countOrd ered By: León Mccray on 08-12-2025 Lymphocytes Auto (Unsp spec) [#/Vol] 1.04 10*3/uL 0.83-4.51 [facility] Absolute neutrophil countOrd ered By: León Mccray on 08-12-2025 Neutrophils (Bld) [#/Vol] 2.5 10*3/uL 2.0-7.7 [facility] Activated partial thrombopla stin time (aPTT) in platelet poor plasma by coagulation aOrdered By: León Mccray on 08-12-2025 aPTT Coag (PPP) [Time] 35.9 s 24.1-36.2 [facility] Anion gap in Serum or Plasma Ordered By: León Mccray on 08-12-2025 Anion gap [Moles/Vol] 16 mmol/L High 5-15 [facility] Automated lymphocyte count a s percentage of total leukocytesOrdered By: León Mccray on 08-12-2025 Lymphocytes/100 WBC Auto (Unsp spec) 20.1 % - [facility] BUN/creatinine ratioOrdered By: [facility] Urea nitrogen/Creatinine [Mass ratio] 14.6 mg/mg 10-20 [facility] Basophil percentageOrdered B y: León Mccray on 08-12-2025 Basophils/100 WBC (Bld) 2.1 % High 0-1 [facility] Bilirubin Test strip Ql (U)O rdered By: León Mccray on 08-12-2025 Bilirubin Ql (U) Negative Negative [facility] Bilirubin, totalOrdered By: León Mccray on 08-12-2025 Bilirubin [Mass/Vol] 2.60 mg/dL High 0.00-1.[address] [facility] Blood manual differential co mment interpretation (narrative result)Ordered By: León Mccray on 08-12-2025 Manual differential comment Hans (Bld) [Interp] SCANNED [facility] CBC W/Diff, Automatedon 07-16 Anisocytosis Ql (Bld) 2+ Normal [facility] Comment on above: Performed By: #### L 506.0200, L503.0106, L100.9950, L503.6030, L503.6550 #### [facility] [address] [place], [place], [id number] SMEAR COMMENT SCANNED Normal [facility] Comment on above: Performed By: #### L 506.0200, L503.0106, L100.9950, L503.6030, L503.6550 #### [facility] [address] [place], [address] CRPon 08-12-2025 C-REACTIVE PROT 33.40 mg/L High 0.0-3.0 [facility] Comment on above: Performed By: #### L 506.0200, L503.0106, L100.9950, L503.6030, L503.6550 #### [facility] [address] [place], [address] Carbon dioxide, total [Moles /volume] in Central venous bloodOrdered By: León Mccray on 08-12-2025 CO2 [Moles/Vol] 22.0 mmol/L 21.0-32.0 [facility] Chloride assayOrdered By: Radha Mccray on 08-12-2025 Chloride [Moles/Vol] 96 mmol/L Low 98-[address] [facility] Comprehensive Metabolic Prof ilon 08-12-2025 Albumin [Mass/Vol] 2.6 g/dL Low 3.5-5.0 [facility] Comment on above: Performed By: #### L 506.0200, L503.0106, L100.9950, L503.6030, L503.6550 #### [facility] [address] [place], [address] Albumin/Globulin [Mass ratio] 0.5 {ratio} Low 0.9-2.4 [facility] Comment on above: Performed By: #### L 506.0200, L503.0106, L100.9950, L503.6030, L503.6550 #### [facility] [address] [place], [address] ALK PHOS 115 U/L Normal 40-129 [facility] Comment on above: Performed By: #### L 506.0200, L503.0106, L100.9950, L503.6030, L503.6550 #### [facility] [address] [place], [address] ALT [Catalytic activity/Vol] 28 U/L Normal <=46 [facility] Comment on above: Performed By: #### L 506.0200, L503.0106, L100.9950, L503.6030, L503.6550 #### [facility] [address] [place], [address] AST [Catalytic activity/Vol] 65 U/L High <=37 [facility] Comment on above: Result Comment: Hemo lysis present, Results??could be affected. ?? Hemolysis present, Results??could be affected. ?? Hemolysis present, Results??could be affected. ?? Performed By: #### L 506.0200, L503.0106, L100.9950, L503.6030, L503.6550 #### [facility] [address] [place], [address] Bilirubin [Mass/Vol] 2.60 mg/dL High 0.00-1.[address] [facility] Comment on above: Performed By: #### L 506.0200, L503.0106, L100.9950, L503.6030, L503.6550 #### [facility] [address] [place], [address] BUN/CRE 14.6 RATIO Normal 10-20 [facility] Comment on above: Performed By: #### L 506.0200, L503.0106, L100.9950, L503.6030, L503.6550 #### [facility] [address] [place], [address] Calcium [Mass/Vol] 8.0 mg/dL Normal 7.6-11.0 [facility] Comment on above: Performed By: #### L 506.0200, L503.0106, L100.9950, L503.6030, L503.6550 #### [facility] [address] [place], [address] Chloride [Moles/Vol] 96 mmol/L Low 98-[address] [facility] Comment on above: Performed By: #### L 506.0200, L503.0106, L100.9950, L503.6030, L503.6550 #### [facility] [address] [place], [address] CO2 [Moles/Vol] 22.0 mmol/L Normal 21.0-32.0 [facility] Comment on above: Performed By: #### L 506.0200, L503.0106, L100.9950, L503.6030, L503.6550 #### [facility] [address] [place], [address] Creatinine [Mass/Vol] 0.72 mg/dL Normal 0.70-1.20 [facility] Comment on above: Performed By: #### L 506.0200, L503.0106, L100.9950, L503.6030, L503.6550 #### [facility] [address] [place], [address] GAP 16 High 5-15 [facility] Comment on above: Performed By: #### L 506.0200, L503.0106, L100.9950, L503.6030, L503.6550 #### [facility] [address] [place], [address] GFR/1.73 sq M.predicted among non-blacks MDRD (S/P/Bld) [Vol rate/Area] 113 mL/min/{1.73_m2} Normal >60 [facility] Comment on above: Result Comment: mL/m in/1.73m2 CKD-EPI Creatinine Equation (2020) Performed By: #### L 506.0200, L503.0106, L100.9950, L503.6030, L503.6550 #### [facility] [address] [place], [address] Globulin (S) [Mass/Vol] 5.7 g/dL High 2.2-4.2 [facility] Comment on above: Performed By: #### L 506.0200, L503.0106, L100.9950, L503.6030, L503.6550 #### [facility] [address] [place], [address] Glucose [Mass/Vol] 133 mg/dL High 70-99 [facility] Comment on above: Performed By: #### L 506.0200, L503.0106, L100.9950, L503.6030, L503.6550 #### [facility] [address] [place], [address] Potassium [Moles/Vol] 3.5 mmol/L Normal 3.3-5.1 [facility] Comment on above: Result Comment: Hemo lysis present, Results??could be affected. ?? Hemolysis present, Results??could be affected. ?? Performed By: #### L 506.0200, L503.0106, L100.9950, L503.6030, L503.6550 #### [facility] [address] [place], [address] Sodium [Moles/Vol] 135 mmol/L Normal 133-145 [facility] Comment on above: Performed By: #### L 506.0200, L503.0106, L100.9950, L503.6030, L503.6550 #### [facility] [address] [place], [address] T PROT 8.3 g/dL Normal 5.9-8.4 [facility] Comment on above: Performed By: #### L 506.0200, L503.0106, L100.9950, L503.6030, L503.6550 #### [facility] [address] [place], [place], [address] Urea nitrogen [Mass/Vol] 11 mg/dL Normal 4-19 [facility] Comment on above: Performed By: #### L 506.0200, L503.0106, L100.9950, L503.6030, L503.6550 #### [facility] [address] [place], [place], [id number] Eosinophil percentageOrdered By: León Mccray on 08-12-2025 Eosinophils/100 WBC (Bld) 13.1 % High 0-5 [facility] Erythrocyte Sed Rateon 08-12 SED RATE 76 mm/hr High 0-20 [facility] Comment on above: Performed By: #### L 506.0200, L503.0106, L100.9950, L503.6030, L503.6550 #### [facility] [address] [place], [address] Erythrocyte distribution wid th ratioOrdered By: León Mccray on 08-12-2025 Erythrocyte distribution width (RBC) [Ratio] 24.8 % High 11.6-14.6 [facility] Erythrocyte distribution wid th standard deviationOrdered By: León Shazia on 08-12-2025 Erythrocyte distribution width (RBC) [Ratio] 77.5 fl High 35.1-43.9 [facility] Erythrocyte sedimentation ra teOrdered By: León Mccray on 08-12-2025 ESR (Bld) [Velocity] 76 mm/h High 0-[address] [facility] Ferritinon 08-12-2025 Ferritin [Mass/Vol] 60 ng/mL Normal 37-417 [facility] Comment on above: Performed By: #### L 506.0200, L503.0106, L100.9950, L503.6030, L503.6550 #### [facility] [address] [place], [place], [address] Glomerular filtration rate ( GFR) estimation/1.73 sq m using serum, plasma, or whole bOrdered By: León Mccray on 08-12-2025 GFR/1.73 sq M.predicted among non-blacks MDRD (S/P/Bld) [Vol rate/Area] 113 mL/min/{1.73_m2} >60 [facility] Comment on above: mL/min/1.73m2 CKD-EP I Creatinine Equation (2020) Hematocrit Auto (Bld) [Volum e fraction]Ordered By: León Mccray on 08-12-2025 Hematocrit (Bld) [Volume fraction] 32.2 % Low 40-54 [facility] Hemoglobin measurementOrdere d By: León Mccray on 08-12-2025 Hemoglobin (Bld) [Mass/Vol] 10.0 g/dL Low 13.0-16.5 [facility] Immature granulocytes/100 WB C Auto (Bld)Ordered By: León Mccray on 08-12-2025 Immature granulocytes/100 WBC (Bld) 0.400 % 0.0-0.9 [facility] Comment on above: IG% - Immature Granu locytes (promyelocytes, myelocytes and metamyelocytes) > 1% indicates that a LEFT SHIFT is Present. International normalized rat io (INR) calculationOrdered By: León Mccray on 08-12-2025 INR Coag (Bld) [Relative time] 1.6 {INR} [facility] Iron measurement (mass/mass) Ordered By: León Mccray on 08-12-2025 Iron (Unsp spec) [Mass/Mass] 40 ug/dL Low 65-175 [facility] Iron+Iron Binding Capacityon 08-12-2025 Iron [Mass/Vol] 40 ug/dL Low 65-175 [facility] Comment on above: Performed By: #### L 506.0200, L503.0106, L100.9950, L503.6030, L503.6550 #### [facility] [address] [place], [place], [id number] (097) IRON SATURATION 12.3 Normal 9-55 [facility] Comment on above: Performed By: #### L 506.0200, L503.0106, L100.9950, L503.6030, L503.6550 #### [facility] [address] [place], [address] TIBC 327 ug/dL Normal 250-450 [facility] Comment on above: Performed By: #### L 506.0200, L503.0106, L100.9950, L503.6030, L503.6550 #### [facility] [address] [place], [address] UIBC 287 ug/dL Normal 228-428 [facility] Comment on above: Result Comment: Hemo lysis present, Results??could be affected. ?? Hemolysis present, Results??could be affected. ?? Hemolysis present, Results??could be affected. ?? Performed By: #### L 506.0200, L503.0106, L100.9950, L503.6030, L503.6550 #### [facility] [address] [place], [address] Ketones Test strip Ql (U)Ord ered By: León Mccray on 08-12-2025 Ketones Ql (U) Negative Negative [facility] LDHon 08-12-2025 LDH 413 U/L High 87-241 [facility] Comment on above: Order Comment: 1 Result Comment: Hemo lysis present, Results??could be affected. ?? Hemolysis present, Results??could be affected. ?? Hemolysis present, Results??could be affected. ?? Performed By: #### L 506.0200, L503.0106, L100.9950, L503.6030, L503.6550 #### [facility] [address] [place], [address] Laboratory - Chemistry and C hemistry - challengeOrdered By: León Mccray on 08-12-2025 AST [Catalytic activity/Vol] 65 U/L High <38 [facility] Comment on above: Hemolysis present, R esults could be affected. Hemolysis present, Results could be affected. Hemolysis present, Results could be affected. Laboratory - Hematology and Cell countsOrdered By: León Mccray on 08-12-2025 Anisocytosis Ql (Bld) 2+ [facility] Lactate dehydrogenase (LDH) measurementOrdered By: León Mccray on 08-12-2025 LDH [Catalytic activity/Vol] 413 U/L High 87-241 [facility] Comment on above: Hemolysis present, R esults could be affected. Hemolysis present, Results could be affected. Hemolysis present, Results could be affected. MCV (mean corpuscular volume ) determinationOrdered By: León Mccray on 08-12-2025 MCV (RBC) [Entitic vol] 86.3 fL 80-94 [facility] Magnesiumon 08-12-2025 Magnesium [Mass/Vol] 1.7 mg/dL Normal 1.5-2.[address] [facility] Comment on above: Performed By: #### L 506.0200, L503.0106, L100.9950, L503.6030, L503.6550 #### [facility] [address] [place], [address] Magnesium measurement (mass/ volume)Ordered By: León Mccray on 08-12-2025 Magnesium (Unsp spec) [Mass/Vol] 1.7 mg/dL 1.5-2.2 [facility] Mean corpuscular hemoglobin (MCH) determinationOrdered By: León Mccray on 08-12-2025 MCH (RBC) [Entitic mass] 26.8 pg Low 27.0-32.0 [facility] Mean corpuscular hemoglobin concentration (MCHC) determinationOrdered By: León Mccray on 08-12-2025 MCHC (RBC) [Mass/Vol] 31.1 g/dL Low 32-36 [facility] Mean platelet volume determi nationOrdered By: León Mccray on 08-12-2025 Platelet mean volume (Bld) [Entitic vol] 10.4 fL 6.2-12.0 [facility] Microscopic analysis of urin e for red blood cells (RBC)Ordered By: León Mccray on 08-12-2025 Microscopic analysis of urine for red blood cells (RBC) 5-10 SEEN /hpf 0-5 [facility] Monocyte percentageOrdered B y: León Mccray on 08-12-2025 Monocytes/100 WBC (Bld) 16.4 % High 0-10 [facility] Mucus LM Ql (Urine sed)Order ed By: León Mccray on 08-12-2025 Mucus Ql (Urine sed) 0 SEEN /hpf [facility] Neutrophil percentageOrdered By: León Mccray on 08-12-2025 Neutrophils/100 WBC (Bld) 47.9 % 47-70 [facility] Nitrite Test strip Ql (U)Ord ered By: León Mccray on 08-12-2025 Nitrite Ql (U) Negative Negative [facility] No Panel InformationOrdered By: León Mccray on 08-12-2025 Unsaturated Iron Binding Capacity 287 ug/dL 228-428 [facility] Comment on above: Hemolysis present, R esults could be affected. Hemolysis present, Results could be affected. Hemolysis present, Results could be affected. Nucleated red blood cell per centageOrdered By: León Mccray on 08-12-2025 Nucleated RBC/100 WBC (Bld) [Ratio] 0 % 0-5 [facility] Oncology Visit Reporton 07-16 Oncology Visit Report [facility] [address] [place] [address] OFFICE VISIT Date of Service: 08/12/25822 MR#: [id number] Acct: [id number] Name: LEON RIDER Rep #: [id number] : 1980 From: León Mccray MD Age/Sex: 45/M Location: [facility] [place] Status: Signed HPI Subjective Date of Service 08/12/25 Chief Complaint Referred for anemia. 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 He has had esophageal varices which has been banded in [place]. [facility] Hx of cirrhosis Anemia Chronic idiopathic thrombocytopenia HTN (hypertension) Diabetes Acid reflux Rectal bleeding Hemorrhoids Surgical History H/O umbilical hernia repair [place] teeth extracted Family History Other Diabetes Heart [...] - Continuous Positive Airway 07/23/25 08/12/25 History Pressure([facility] INFORMATIONAL USE ONLY) bumetanide 2 mg tablet [...] no murmurs (more content not included)... Normal [facility] Partial Thromboplast Timeon 08-12-2025 aPTT Coag (Bld) [Time] 35.9 s Normal 24.1-36.2 [facility] Comment on above: Performed By: #### L 506.0200, L503.0106, L100.9950, L503.6030, L503.6550 #### [facility] [address] [place], [address] Phosphoruson 08-12-2025 Phosphate [Mass/Vol] 2.9 mg/dL Normal 2.7-4.[address] [facility] Comment on above: Performed By: #### L 506.0200, L503.0106, L100.9950, L503.6030, L503.6550 #### [facility] [address] [place], [address] Platelet countOrdered By: Radha Mccray on 08-12-2025 Platelets (Bld) [#/Vol] 115 10*3/uL Low 150-450 [facility] Potassium measurement (mass/ volume)Ordered By: León Mccray on 08-12-2025 Potassium (Unsp spec) [Mass/Vol] 3.5 mmol/L 3.3-5.1 [facility] Comment on above: Hemolysis present, R esults could be affected. Hemolysis present, Results could be affected. Protein Test strip Ql (U)Ord ered By: León Mccray on 08-12-2025 Protein Ql (U) 15 mg/dl High Negative [facility] Prothrombin Time w/INRon INR Coag (PPP) [Relative time] 1.6 {INR} Normal [facility] Comment on above: Performed By: #### L 506.0200, L503.0106, L100.9950, L503.6030, L503.6550 #### [facility] [address] [place], [address] PT Coag (PPP) [Time] 19.8 s High 11.7-14.[address] [facility] Comment on above: Performed By: #### L 506.0200, L503.0106, L100.9950, L503.6030, L503.6550 #### [facility] [address] [place], [address] Prothrombin timeOrdered By: León Mccray on 08-12-2025 PT Coag (PPP) [Time] 19.8 s High 11.7-14.[address] [facility] RBC Auto (Bld) [#/Vol]Ordere d By: León Mccray on 08-12-2025 RBC (Bld) [#/Vol] 3.73 10*6/uL Low 4.6-6.2 [facility] Retic Panelon 08-12-2025 IM RET FRACTION 27.60 High 3.00-15.90 [facility] Comment on above: Performed By: #### L 506.0200, L503.0106, L100.9950, L503.6030, L503.6550 #### [facility] [address] [place], [place], [id number] RET-HE 29.9 pg Low 30-35 [facility] Comment on above: Performed By: #### L 506.0200, L503.0106, L100.9950, L503.6030, L503.6550 #### [facility] [address] [place], [address] Retic Count 2.66 High 0.5-1.5 [facility] Comment on above: Performed By: #### L 506.0200, L503.0106, L100.9950, L503.6030, L503.6550 #### [facility] [address] [place], [place], [id number] Reticulocyte hemoglobin equi valent (RET-He) measurementOrdered By: León Mccray on 08-12-2025 Hemoglobin (Reticulocytes) [Entitic mass] 29.9 pg Low 30-35 [facility] Reticulocytes Auto (Bld) [#/ Vol]Ordered By: León Mccray on 08-12-2025 Reticulocytes/100 RBC (Bld) 2.66 % High 0.5-1.5 [facility] Serum creatinine measurement (mass/volume)Ordered By: León Mccray on 08-12-2025 Creatinine [Mass/Vol] 0.72 mg/dL 0.70-1.20 [facility] Serum globulin measurementOr dered By: León Mccray on 08-12-2025 Globulin (S) [Mass/Vol] 5.7 g/dL High 2.2-4.2 [facility] Serum glucose measurement (m ass/volume)Ordered By: León Mccray on 08-12-2025 Glucose [Mass/Vol] 133 mg/dL High 70-99 [facility] Serum or plasma C reactive p rotein measurement (mass/volume)Ordered By: León Mccray on 08-12-2025 CRP [Mass/Vol] 33.40 mg/L High 0.0-3.0 [facility] Serum or plasma alanine reyes otransferase (ALT) measurementOrdered By: León Mccray on 08-12-2025 ALT [Catalytic activity/Vol] 28 U/L <47 [facility] Serum or plasma albumin wilfred urement (mass/volume)Ordered By: León Mccray on 08-12-2025 Albumin [Mass/Vol] 2.6 g/dL Low 3.5-5.0 [facility] Serum or plasma albumin/glob ulin mass ratioOrdered By: León Mccray on 08-12-2025 Albumin/Globulin [Mass ratio] 0.5 {ratio} Low 0.9-2.4 [facility] Serum or plasma alkaline roge sphatase measurementOrdered By: León Mccray on 08-12-2025 ALP [Catalytic activity/Vol] 115 U/L 40-129 [facility] Serum or plasma calcium wilfred urement (mass/volume)Ordered By: León Mccray on 08-12-2025 Calcium [Mass/Vol] 8.0 mg/dL 7.6-11.0 [facility] Serum or plasma ferritin shelby surement (mass/volume)Ordered By: León Mccray on 08-12-2025 Ferritin [Mass/Vol] 60 ng/mL 37-417 [facility] Serum or plasma iron saturat ion measurement (mass fraction)Ordered By: León Mccray on 08-12-2025 Iron saturation [Mass fraction] 12.3 % 9-55 [facility] Serum or plasma urea nitroge n measurement (mass/volume)Ordered By: León Mccray on 08-12-2025 Urea nitrogen [Mass/Vol] 11 mg/dL 4-19 [facility] Sodium levelOrdered By: Greg Mccray on 08-12-2025 Sodium [Moles/Vol] 135 mmol/L 133-145 [facility] Squamous epithelial cells de tection in urine sediment by light microscopyOrdered By: León Mccray on 08-12-2025 Epithelial cells.squamous LM Ql (Urine sed) 0-5 SEEN /hpf 0-5 [facility] Total proteinOrdered By: Sánchez Mccray on 08-12-2025 Protein [Mass/Vol] 8.3 g/dL 5.9-8.4 [facility] Urinalysis, Completeon 08-12 EPI,SQUAMOUS 0-5 SEEN Normal 0-5 [facility] Comment on above: Order Comment: MISAEL CTOR TO SPECIFY Performed By: #### L 501.080 #### [facility] [address] [place], [address] RBC 5-10 SEEN Normal 0-5 [facility] Comment on above: Order Comment: MISAEL CTOR TO SPECIFY Performed By: #### L 501.080 #### [facility] [address] [place], [address] BACTERIA 0 SEEN Normal None Seen [facility] Comment on above: Order Comment: MISAEL CTOR TO SPECIFY Performed By: #### L 501.080 #### [facility] [address] [place], [address] Mucus Ql (Urine sed) [address] [facility] Comment on above: Order Comment: MISAEL CTOR TO SPECIFY Performed By: #### L 501.080 #### [facility] [address] [place], [address] WBC 0 SEEN Normal 0-5 [facility] Comment on above: Order Comment: MISAEL CTOR TO SPECIFY Performed By: #### L 501.080 #### [facility] [address] [place], [address] Urine clarityOrdered By: Sánchez Mccray on 08-12-2025 Clarity (U) Clear Clear [facility] Urine color determinationOrd ered By: León Mccray on 08-12-2025 Color (U) Yellow Yellow [facility] Urine glucose detectionOrder ed By: León Mccray on 08-12-2025 Glucose Ql (U) Normal mg/dl Normal [facility] Urine leukocyte esterase det ection by dipstickOrdered By: León Mccray on 08-12-2025 Leukocyte esterase Test strip Ql (U) Negative Negative [facility] Urine pHOrdered By: León amador on 08-12-2025 pH (U) 7.0 [pH] 5.0 - 8.0 [facility] Urine sediment bacteria coun t by microscopy (number/high power field)Ordered By: León Mccray on 08-12-2025 Bacteria LM.HPF (Urine sed) [#/Area] 0 /[HPF] None Seen [facility] Urine specific gravity measu rementOrdered By: León Mccray on 08-12-2025 Specific gravity (U) [Rel density] 1.010 1.002-1.03 0 [facility] Urine urobilinogen measureme ntOrdered By: León Mccray on 08-12-2025 Urobilinogen Ql (U) 8 mg/dl High Normal [facility] White blood cell (WBC) count Ordered By: León Mccray on 08-12-2025 WBC (Bld) [#/Vol] 5.2 10*3/uL 4.4-11.0 [facility] White blood cell countOrdere d By: León Mccray on 08-12-2025 White blood cell count 0 SEEN /hpf 0-5 [facility] Erythropoietinon 08-05-2025 ERYTHROPOIETIN 254.5 mIU/mL High 2.6-18.5 [facility] Comment on above: Order Comment: Order Date: 08/02/25Order Info: [id number] - NICK Result Comment: [employer] Uni[employer]el DxI 800 Immunoassay System Values obtained with different assay methods or kits cannot be used interchangeably. Results cannot be interpreted as absolute evidence of the presence or absence of malignant disease. Performed at: [facility] [address] [id number] [employer]: Tres Cm PhD, Phone: [phone] Performed By: #### L 506.0200, L503.0106, L100.2550, L503.0530, L503.1250 #### [facility] [address] [place], [address] Absolute lymphocyte countOrd ered By: Alis Duran on 08-02-2025 Lymphocytes Auto (Unsp spec) [#/Vol] 1.04 10*3/uL 0.83-4.51 [facility] Absolute neutrophil countOrd ered By: Alis Duran on 08-02-2025 Neutrophils (Bld) [#/Vol] 3.7 10*3/uL 2.0-7.7 [facility] Automated lymphocyte count a s percentage of total leukocytesOrdered By: Alis Duran on 08-02-2025 Lymphocytes/100 WBC Auto (Unsp spec) 17.5 % Low 19-41 [facility] Basophil percentageOrdered B y: Alis Duran on 08-02-2025 Basophils/100 WBC (Bld) 1.2 % High 0-1 [facility] Blood manual differential co mment interpretation (narrative result)Ordered By: Alis Duran on 08-02-2025 Manual differential comment Hans (Bld) [Interp] SCANNED [facility] Blood polychromasia detectio n by light microscopyOrdered By: Alis Duran on 08-02-2025 Polychromasia LM Ql (Bld) 1+ [facility] CBC W/Diff, Automatedon 07-15 OVALOCYTE 1+ Normal [facility] Comment on above: Order Comment: Order Date: 08/02/25Order Info: [id number] - CBCD Performed By: #### L 506.0200, L503.0106, L100.9950, L503.6030, L503.6550 #### [facility] [address] [place], [address] Anisocytosis Ql (Bld) 2+ Normal [facility] Comment on above: Order Comment: Order Date: 08/02/25Order Info: [id number] - CBCD Performed By: #### L 506.0200, L503.0106, L100.9950, L503.6030, L503.6550 #### [facility] [address] [place], [address] POLYCHROMASIA 1+ Normal [facility] Comment on above: Order Comment: Order Date: 08/02/25Order Info: [id number] - CBCD Performed By: #### L 506.0200, L503.0106, L100.9950, L503.6030, L503.6550 #### [facility] [address] [place], [address] PLT EST SLT DEC Normal ADEQ [facility] Comment on above: Order Comment: Order Date: 08/02/25Order Info: [id number]- - CBCD Performed By: #### L 506.0200, L503.0106, L100.9950, L503.6030, L503.6550 #### [facility] [address] [place], [address] SMEAR COMMENT SCANNED Normal [facility] Comment on above: Order Comment: Order Date: 08/02/25Order Info: [id number]- - CBCD Performed By: #### L 506.0200, L503.0106, L100.9950, L503.6030, L503.6550 #### [facility] [address] [place], [address] Eosinophil percentageOrdered By: Alis Duran on 08-02-2025 Eosinophils/100 WBC (Bld) 5.5 % High 0-5 [facility] Erythrocyte distribution wid th ratioOrdered By: Alis Duran on 08-02-2025 Erythrocyte distribution width (RBC) [Ratio] 25.7 % High 11.6-14.6 [facility] Erythrocyte distribution wid th standard deviationOrdered By: Alis Duran on 08-02-2025 Erythrocyte distribution width (RBC) [Ratio] 78.2 fl High 35.1-43.9 [facility] Hematocrit Auto (Bld) [Volum e fraction]Ordered By: Alis Duran on 08-02-2025 Hematocrit (Bld) [Volume fraction] 30.1 % Low 40-54 [facility] Hemoglobin measurementOrdere d By: Alis Duran on 08-02-2025 Hemoglobin (Bld) [Mass/Vol] 9.3 g/dL Low 13.0-16.5 [facility] Immature granulocytes/100 WB C Auto (Bld)Ordered By: Alis Duran on 08-02-2025 Immature granulocytes/100 WBC (Bld) 0.500 % 0.0-0.9 [facility] Comment on above: IG% - Immature Granu locytes (promyelocytes, myelocytes and metamyelocytes) > 1% indicates that a LEFT SHIFT is Present. Laboratory - Hematology and Cell countsOrdered By: Alis Duran on 08-02-2025 Anisocytosis Ql (Bld) 2+ [facility] MCV (mean corpuscular volume ) determinationOrdered By: Alis Duran on 08-02-2025 MCV (RBC) [Entitic vol] 85.8 fL 80-94 [facility] Mean corpuscular hemoglobin (MCH) determinationOrdered By: Alis Duran on 08-02-2025 MCH (RBC) [Entitic mass] 26.5 pg Low 27.0-32.0 [facility] Mean corpuscular hemoglobin concentration (MCHC) determinationOrdered By: Alis Duran on 08-02-2025 MCHC (RBC) [Mass/Vol] 30.9 g/dL Low 32-36 [facility] Mean platelet volume determi nationOrdered By: Alis Duran on 08-02-2025 Platelet mean volume (Bld) [Entitic vol] 10.7 fL 6.2-12.0 [facility] Monocyte percentageOrdered B y: Alis Duran on 08-02-2025 Monocytes/100 WBC (Bld) 13.4 % High 0-10 [facility] Neutrophil percentageOrdered By: [facility] on 08-02-2025 Neutrophils/100 WBC (Bld) 61.9 % 47-70 [facility] Nucleated red blood cell per centageOrdered By: Alis Duran on 08-02-2025 Nucleated RBC/100 WBC (Bld) [Ratio] 0 % 0-5 [facility] Ovalocyte detectionOrdered B y: Alis Duran on 08-02-2025 Ovalocytes LM Ql (Bld) 1+ [facility] Platelet countOrdered By: Darrick Duran on 08-02-2025 Platelets (Bld) [#/Vol] 132 10*3/uL Low 150-450 [facility] Platelet estimateOrdered By: Alis Duran on 08-02-2025 Platelets LM Ql (Bld) SLT DEC ADEQ [facility] RBC Auto (Bld) [#/Vol]Ordere d By: Alis Duran on 08-02-2025 RBC (Bld) [#/Vol] 3.51 10*6/uL Low 4.6-6.2 [facility] Serum or plasma erythropoiet in (EPO) measurement (units/volume)Ordered By: Ails Duran on 08-02-2025 Erythropoietin (EPO) Qn 254.5 mIU/mL High 2.6-18.5 [facility] Comment on above: [employer] el DxI 800 Immunoassay SystemValues obtained with different assay methods or kits cannotbe used interchangeably. Results cannot be interpreted asabsolute evidence of the presence or absence of malignantdisease.Performed at: [facility] [id number] Director: Tres Cm PhD, Phone: [phone] Vitamin B12on 08-02-2025 Cobalamin (Vitamin B12) [Mass/Vol] 1591 pg/mL High 180-914 [facility] Comment on above: Performed By: #### L 506.0200, L503.0106, L100.9950, L503.6030, L503.6550 #### [facility] [address] [place], [address] Vitamin B12 ser/plasOrdered By: Alis Duran on 08-02-2025 Cobalamin (Vitamin B12) [Mass/Vol] 1591 pg/mL High 180-914 [facility] White blood cell (WBC) count Ordered By: Alis Duran on 08-02-2025 WBC (Bld) [#/Vol] 6.0 10*3/uL 4.4-11.0 [facility] 12 Lead EKGon 07-26-2025 12 Lead EKG [facility] [address] [place] [address] 12 Lead EKG 07/26/25 1413 MR#: [id number] Acct: [id number] Name: LEON RIDER Rep #: [id number] : 1980 45 From: Jocelyne Henley MD Attending Dr: Dr. Myriam Aguilar DO Status: DIS I N Ordering Dr: Myriam Aguilar DO Date: 07/26/25 Location: [facility] Sex: M C Admitted: 07/21/25 Test [...] Lateral leads Confirmed by Jocelyne Henley ([id number]), supervising film or videotape editor JACQUELYN ANDRADE ([id number]) on 07/29/2025 1:29:21 PM Referred By: Confirmed By: Jocelyne Henley 07/29/25 1329 Date Jocelyne Henley MD CC: Dr. Alis Duran MD; Dr. Myriam Aguilar DO Signed Normal [facility] Anion gap in Serum or Plasma Ordered By: Myriam Aguilar on 07-26-2025 Anion gap [Moles/Vol] 9 mmol/L 5- [facility] BUN/creatinine ratioOrdered By: Myriam Aguilar on 07-26-2025 Urea nitrogen/Creatinine [Mass ratio] 11.9 mg/mg 10- [facility] Bedside Glucoseon 07-26-2025 FINGERSTICK GLU 188 mg/dL High 74-106 [facility] Comment on above: Result Comment: PADDY GEMENT OF PATIENT CARE PER NURSING PROTOCOL Performed By: #### L 500.4050, L100.0100 #### [facility] [address] [place], [address] FINGERSTICK GLU 142 mg/dL High 74-106 [facility] Comment on above: Result Comment: PADDY GEMENT OF PATIENT CARE PER NURSING PROTOCOL Performed By: #### L 506.0200, L503.0106, L100.9950, L503.6030, L503.6550 #### [facility] [address] [place], [address] Bilirubin, totalOrdered By: Myriam Aguilar on 07-26-2025 Bilirubin [Mass/Vol] 1.75 mg/dL High 0.00-1.[address] [facility] CBC-Complete Blood Cnt No Di ffon 07-26-2025 Erythrocyte distribution width (RBC) [Ratio] 24.9 % High 11.6-14.6 [facility] Comment on above: Performed By: #### L 506.0200, L503.0106, L100.9950, L503.6030, L503.6550 #### [facility] [address] [place], [address] Hematocrit (Bld) [Volume fraction] 25.3 % Low 40-54 [facility] Comment on above: Performed By: #### L 506.0200, L503.0106, L100.9950, L503.6030, L503.6550 #### [facility] [address] [place], [address] Hemoglobin (Bld) [Mass/Vol] 8.1 g/dL Low 13.0-16.5 [facility] Comment on above: Performed By: #### L 506.0200, L503.0106, L100.9950, L503.6030, L503.6550 #### [facility] [address] [place], [address] MCH (RBC) [Entitic mass] 26.7 pg Low 27.0-32.0 [facility] Comment on above: Performed By: #### L 506.0200, L503.0106, L100.9950, L503.6030, L503.6550 #### [facility] [address] [place], [address] MCHC (RBC) [Mass/Vol] 32.0 g/dL Normal 32-36 [facility] Comment on above: Performed By: #### L 506.0200, L503.0106, L100.9950, L503.6030, L503.6550 #### [facility] [address] [place], [address] MCV (RBC) [Entitic vol] 83.5 fL Normal 80-94 [facility] Comment on above: Performed By: #### L 506.0200, L503.0106, L100.9950, L503.6030, L503.6550 #### [facility] [address] [place], [address] Platelet mean volume (Bld) [Entitic vol] 9.9 fL Normal 6.2-12.0 [facility] Comment on above: Performed By: #### L 506.0200, L503.0106, L100.9950, L503.6030, L503.6550 #### [facility] [address] [place], [address] Platelets (Bld) [#/Vol] 129 10*3/uL Low 150-450 [facility] Comment on above: Performed By: #### L 506.0200, L503.0106, L100.9950, L503.6030, L503.6550 #### [facility] [address] [place], [address] RBC (Bld) [#/Vol] 3.03 10*6/uL Low 4.6-6.2 [facility] Comment on above: Performed By: #### L 506.0200, L503.0106, L100.9950, L503.6030, L503.6550 #### [facility] [address] [place], [address] RDW SD 71.4 fl High 35.1-43.9 [facility] Comment on above: Performed By: #### L 506.0200, L503.0106, L100.9950, L503.6030, L503.6550 #### [facility] [address] [place], [address] WBC (Bld) [#/Vol] 6.0 10*3/uL Normal 4.4-11.0 [facility] Comment on above: Performed By: #### L 506.0200, L503.0106, L100.9950, L503.6030, L503.6550 #### [facility] [address] [place], [address] Carbon dioxide, total [Moles /volume] in Central venous bloodOrdered By: Myriam Aguilar on 07-26-2025 CO2 [Moles/Vol] 23.3 mmol/L 21.0-32.0 [facility] Chloride assayOrdered By: Sakshi Aguilar on 07-26-2025 Chloride [Moles/Vol] 101 mmol/L 98-[address] [facility] Comprehensive Metabolic Prof ilon 07-26-2025 Albumin [Mass/Vol] 2.0 g/dL Low 3.5-5.0 [facility] Comment on above: Performed By: #### L 506.0200, L503.0106, L100.9950, L503.6030, L503.6550 #### [facility] [address] [place], [address] Albumin/Globulin [Mass ratio] 0.5 {ratio} Low 0.9-2.4 [facility] Comment on above: Performed By: #### L 506.0200, L503.0106, L100.9950, L503.6030, L503.6550 #### [facility] [address] [place], [address] ALK PHOS 128 U/L Normal 40-129 [facility] Comment on above: Performed By: #### L 506.0200, L503.0106, L100.9950, L503.6030, L503.6550 #### [facility] [address] [place], [address] ALT [Catalytic activity/Vol] 27 U/L Normal <=46 [facility] Comment on above: Performed By: #### L 506.0200, L503.0106, L100.9950, L503.6030, L503.6550 #### [facility] [address] [place], [address] AST [Catalytic activity/Vol] 47 U/L High <=37 [facility] Comment on above: Performed By: #### L 506.0200, L503.0106, L100.9950, L503.6030, L503.6550 #### [facility] [address] [place], [address] Bilirubin [Mass/Vol] 1.75 mg/dL High 0.00-1.[address] [facility] Comment on above: Performed By: #### L 506.0200, L503.0106, L100.9950, L503.6030, L503.6550 #### [facility] [address] [place], [address] BUN/CRE 11.9 RATIO Normal 10-20 [facility] Comment on above: Performed By: #### L 506.0200, L503.0106, L100.9950, L503.6030, L503.6550 #### [facility] [address] [place], [address] Calcium [Mass/Vol] 7.3 mg/dL Low 7.6-11.0 [facility] Comment on above: Performed By: #### L 506.0200, L503.0106, L100.9950, L503.6030, L503.6550 #### [facility] [address] [place], [address] Chloride [Moles/Vol] 101 mmol/L Normal 98-[address] [facility] Comment on above: Performed By: #### L 506.0200, L503.0106, L100.9950, L503.6030, L503.6550 #### [facility] [address] [place], [address] CO2 [Moles/Vol] 23.3 mmol/L Normal 21.0-32.0 [facility] Comment on above: Performed By: #### L 506.0200, L503.0106, L100.9950, L503.6030, L503.6550 #### [facility] [address] [place], [address] Creatinine [Mass/Vol] 0.69 mg/dL Low 0.70-1.20 [facility] Comment on above: Performed By: #### L 506.0200, L503.0106, L100.9950, L503.6030, L503.6550 #### [facility] [address] [place], [address] ECRCL 217.11 ml/min Normal 50-250 [facility] Comment on above: Performed By: #### L 506.0200, L503.0106, L100.9950, L503.6030, L503.6550 #### [facility] [address] [place], [address] GAP 9 Normal 5-15 [facility] Comment on above: Performed By: #### L 506.0200, L503.0106, L100.9950, L503.6030, L503.6550 #### [facility] [address] [place], [address] GFR/1.73 sq M.predicted among non-blacks MDRD (S/P/Bld) [Vol rate/Area] 115 mL/min/{1.73_m2} Normal >60 [facility] Comment on above: Result Comment: mL/m in/1.73m2 CKD-EPI Creatinine Equation (2020) Performed By: #### L 506.0200, L503.0106, L100.9950, L503.6030, L503.6550 #### [facility] [address] [place], [address] Globulin (S) [Mass/Vol] 4.1 g/dL Normal 2.2-4.2 [facility] Comment on above: Performed By: #### L 506.0200, L503.0106, L100.9950, L503.6030, L503.6550 #### [facility] [address] [place], [address] Glucose [Mass/Vol] 140 mg/dL High 70-99 [facility] Comment on above: Performed By: #### L 506.0200, L503.0106, L100.9950, L503.6030, L503.6550 #### [facility] [address] [place], [address] Potassium [Moles/Vol] 3.5 mmol/L Normal 3.3-5.1 [facility] Comment on above: Performed By: #### L 506.0200, L503.0106, L100.9950, L503.6030, L503.6550 #### [facility] [address] [place], [address] Sodium [Moles/Vol] 133 mmol/L Normal 133-145 [facility] Comment on above: Performed By: #### L 506.0200, L503.0106, L100.9950, L503.6030, L503.6550 #### [facility] [address] [place], [address] T PROT 6.1 g/dL Normal 5.9-8.4 [facility] Comment on above: Performed By: #### L 506.0200, L503.0106, L100.9950, L503.6030, L503.6550 #### [facility] [address] [place], [address] Urea nitrogen [Mass/Vol] 8 mg/dL Normal 4-19 [facility] Comment on above: Performed By: #### L 506.0200, L503.0106, L100.9950, L503.6030, L503.6550 #### [facility] [address] [place], [address] Culture, Blood (WB)on 2024 CUB Blood cultures x2, f rom two different sites No growth in 5 days. Normal [facility] Comment on above: Performed By: #### L 501.080 #### [facility] [address] [place], [address] CUB Blood cultures x2, f rom two different sites No growth in 5 days. Normal [facility] Comment on above: Performed By: #### L 499.0043 #### [facility] [address] [place], [address] Erythrocyte distribution wid th ratioOrdered By: Myriam Aguilar on 07-26-2025 Erythrocyte distribution width (RBC) [Ratio] 24.9 % High 11.6-14.6 [facility] Erythrocyte distribution wid th standard deviationOrdered By: Myriam Aguilar on 07-26-2025 Erythrocyte distribution width (RBC) [Ratio] 71.4 fl High 35.1-43.9 [facility] Glomerular filtration rate ( GFR) estimation/1.73 sq m using serum, plasma, or whole bOrdered By: Myriam Aguilar on 07-26-2025 GFR/1.73 sq M.predicted among non-blacks MDRD (S/P/Bld) [Vol rate/Area] 115 mL/min/{1.73_m2} >60 [facility] Comment on above: mL/min/1.73m2 CKD-EP I Creatinine Equation (2020) [facility]dered By: Myriam Aguilar on 07-26-2025 Glucose [Mass/Vol] 188 mg/dL High 74-106 [facility] Comment on above: MANAGEMENT OF PATIEN T CARE PER NURSING PROTOCOL Glucose [Mass/Vol] 142 mg/dL High 74-106 [facility] Comment on above: MANAGEMENT OF PATIEN T CARE PER NURSING PROTOCOL Hematocrit Auto (Bld) [Volum e fraction]Ordered By: Myriam Aguilar on 07-26-2025 Hematocrit (Bld) [Volume fraction] 25.3 % Low 40-54 [facility] Hemoglobin measurementOrdere d By: Myriam Aguilar on 07-26-2025 Hemoglobin (Bld) [Mass/Vol] 8.1 g/dL Low 13.0-16.5 [facility] - Chemistry and C hemistry - challengeOrdered By: Myriam Aguilar on 07-26-2025 AST [Catalytic activity/Vol] 47 U/L High <38 [facility] MCV (mean corpuscular volume ) determinationOrdered By: Myriam Aguilar on 07-26-2025 MCV (RBC) [Entitic vol] 83.5 fL 80-94 [facility] Magnesiumon 07-26-2025 Magnesium [Mass/Vol] 1.9 mg/dL Normal 1.5-2.[address] [facility] Comment on above: Performed By: #### L 506.0200, L503.0106, L100.9950, L503.6030, L503.6550 #### [facility] [address] [facility] [place], [place], [address] Magnesium measurement (mass/ volume)Ordered By: Myriam Aguilar on 07-26-2025 Magnesium (Unsp spec) [Mass/Vol] 1.9 mg/dL 1.5-2.2 [facility] Mean corpuscular hemoglobin (MCH) determinationOrdered By: Myriam Aguilar on 07-26-2025 MCH (RBC) [Entitic mass] 26.7 pg Low 27.0-32.0 [facility] Mean corpuscular hemoglobin concentration (MCHC) determinationOrdered By: Myriam Aguilar on 07-26-2025 MCHC (RBC) [Mass/Vol] 32.0 g/dL 32-36 [facility] Mean platelet volume determi nationOrdered By: Myriam Aguilar on 07-26-2025 Platelet mean volume (Bld) [Entitic vol] 9.9 fL 6.2-12.0 [facility] Phosphoruson 07-26-2025 Phosphate [Mass/Vol] 2.7 mg/dL Normal 2.7-4.[address] [facility] Comment on above: Performed By: #### L 506.0200, L503.0106, L100.9950, L503.6030, L503.6550 #### [facility] [address] [place], [address] Platelet countOrdered By: Sakshi Aguilar on 07-26-2025 Platelets (Bld) [#/Vol] 129 10*3/uL Low 150-450 [facility] Potassium measurement (mass/ volume)Ordered By: Myriam Aguilar on 07-26-2025 Potassium (Unsp spec) [Mass/Vol] 3.5 mmol/L 3.3-5.1 [facility] RBC Auto (Bld) [#/Vol]Ordere d By: Myriam Aguilar on 07-26-2025 RBC (Bld) [#/Vol] 3.03 10*6/uL Low 4.6-6.2 [facility] Serum creatinine measurement (mass/volume)Ordered By: Myriam Aguilar on 07-26-2025 Creatinine [Mass/Vol] 0.69 mg/dL Low 0.70-1.20 [facility] Serum globulin measurementOr dered By: Myriam Aguilar on 07-26-2025 Globulin (S) [Mass/Vol] 4.1 g/dL 2.2-4.2 [facility] Serum glucose measurement (m ass/volume)Ordered By: Myriam Aguilar on 07-26-2025 Glucose [Mass/Vol] 140 mg/dL High 70-99 [facility] Serum or plasma alanine reyes otransferase (ALT) measurementOrdered By: Myriam Aguilar on 07-26-2025 ALT [Catalytic activity/Vol] 27 U/L <47 [facility] Serum or plasma albumin wilfred urement (mass/volume)Ordered By: Myriam Aguilar on 07-26-2025 Albumin [Mass/Vol] 2.0 g/dL Low 3.5-5.0 [facility] Serum or plasma albumin/glob ulin mass ratioOrdered By: Myriam Aguilar on 07-26-2025 Albumin/Globulin [Mass ratio] 0.5 {ratio} Low 0.9-2.4 [facility] Serum or plasma alkaline roge sphatase measurementOrdered By: Myriam Aguilar on 07-26-2025 ALP [Catalytic activity/Vol] 128 U/L 40-129 [facility] Serum or plasma calcium wilfred urement (mass/volume)Ordered By: Myriam Aguilar on 07-26-2025 Calcium [Mass/Vol] 7.3 mg/dL Low 7.6-11.0 [facility] Serum or plasma urea nitroge n measurement (mass/volume)Ordered By: Myriam Aguilar on 07-26-2025 Urea nitrogen [Mass/Vol] 8 mg/dL 4-19 [facility] Sodium levelOrdered By: Ana Paula Aguilar on 07-26-2025 Sodium [Moles/Vol] 133 mmol/L 133-145 [facility] Total proteinOrdered By: Zuleyma Aguilar on 07-26-2025 Protein [Mass/Vol] 6.1 g/dL 5.9-8.4 [facility] White blood cell (WBC) count Ordered By: Myriam Aguilar on 07-26-2025 WBC (Bld) [#/Vol] 6.0 10*3/uL 4.4-11.0 [facility] Absolute lymphocyte countOrd ered By: Myriam Aguilar on 07-25-2025 Lymphocytes Auto (Unsp spec) [#/Vol] 0.91 10*3/uL 0.83-4.51 [facility] Absolute neutrophil countOrd ered By: Myriam Aguilar on 07-25-2025 Neutrophils (Bld) [#/Vol] 3.5 10*3/uL 2.0-7.7 [facility] Automated lymphocyte count a s percentage of total leukocytesOrdered By: Myriam Aguilar on 07-25-2025 Lymphocytes/100 WBC Auto (Unsp spec) 15.0 % Low 19-41 [facility] Basophil percentageOrdered B y: Myriam Aguilar on 07-25-2025 Basophils/100 WBC (Bld) 1.0 % 0-1 [facility] Bedside Glucoseon 07-25-2025 FINGERSTICK GLU 200 mg/dL High [address] [place] [address] Comment on above: Result Comment: PADDY GEMENT OF PATIENT CARE PER NURSING PROTOCOL Performed By: #### L 506.0200, L503.0106, L100.9950, L503.6030, L503.6550 #### [facility] [address] [place], [address] FINGERSTICK GLU 236 mg/dL High [facility]106 [facility] Comment on above: Result Comment: PADDY GEMENT OF PATIENT CARE PER NURSING PROTOCOL Performed By: #### L 501.080 #### [facility] [address] [place], [address] FINGERSTICK GLU 209 mg/dL High [address] [place] [address] Comment on above: Result Comment: PADDY GEMENT OF PATIENT CARE PER NURSING PROTOCOL Performed By: #### L 501.080 #### [facility] [address] [place], [address] FINGERSTICK GLU 149 mg/dL High [address] [place] [address] Comment on above: Result Comment: PADDY GEMENT OF PATIENT CARE PER NURSING PROTOCOL Performed By: #### L 501.080 #### [facility] [address] [place], [address] Blood polychromasia detectio n by light microscopyOrdered By: Myriam Aguilar on 07-25-2025 Polychromasia LM Ql (Bld) 1+ [facility] CBC W/Diff, Automatedon 07-15 OVALOCYTE 1+ Normal [facility] Comment on above: Performed By: #### L 506.0200, L503.0106, L100.9950, L503.6030, L503.6550 #### [facility] [address] [place], [address] POLYCHROMASIA 1+ Normal [facility] Comment on above: Performed By: #### L 506.0200, L503.0106, L100.9950, L503.6030, L503.6550 #### [facility] [address] [place], [address] Anisocytosis Ql (Bld) 3+ Normal [facility] Comment on above: Performed By: #### L 506.0200, L503.0106, L100.9950, L503.6030, L503.6550 #### [facility] [address] [place], [address] Comprehensive Metabolic Prof [facility] 07-25-2025 Albumin [Mass/Vol] 2.2 g/dL Low 3.5-5.0 [facility] Comment on above: Performed By: #### L 506.0200, L503.0106, L100.9950, L503.6030, L503.6550 #### [facility] [address] [place], [address] Albumin/Globulin [Mass ratio] 0.5 {ratio} Low 0.9-2.4 [facility] Comment on above: Performed By: #### L 506.0200, L503.0106, L100.9950, L503.6030, L503.6550 #### [facility] [address] [place], [address] ALK PHOS 103 U/L Normal 40-129 [facility] Comment on above: Performed By: #### L 506.0200, L503.0106, L100.9950, L503.6030, L503.6550 #### [facility] [address] [place], [address] ALT [Catalytic activity/Vol] 25 U/L Normal <=46 [facility] Comment on above: Performed By: #### L 506.0200, L503.0106, L100.9950, L503.6030, L503.6550 #### [facility] [address] [place], [address] AST [Catalytic activity/Vol] 40 U/L High <=37 [facility] Comment on above: Performed By: #### L 506.0200, L503.0106, L100.9950, L503.6030, L503.6550 #### [facility] [address] [place], [address] Bilirubin [Mass/Vol] 2.14 mg/dL High 0.00-1.[address] [facility] Comment on above: Performed By: #### L 506.0200, L503.0106, L100.9950, L503.6030, L503.6550 #### [facility] [address] [place], [address] BUN/CRE 14.3 RATIO Normal 10-20 [facility] Comment on above: Performed By: #### L 506.0200, L503.0106, L100.9950, L503.6030, L503.6550 #### [facility] [address] [place], [address] Calcium [Mass/Vol] 7.5 mg/dL Low 7.6-11.0 [facility] Comment on above: Performed By: #### L 506.0200, L503.0106, L100.9950, L503.6030, L503.6550 #### [facility] [address] [place], [address] Chloride [Moles/Vol] 101 mmol/L Normal 98-[address] [facility] Comment on above: Performed By: #### L 506.0200, L503.0106, L100.9950, L503.6030, L503.6550 #### [facility] [address] [place], [address] CO2 [Moles/Vol] 23.4 mmol/L Normal 21.0-32.0 [facility] Comment on above: Performed By: #### L 506.0200, L503.0106, L100.9950, L503.6030, L503.6550 #### [facility] [address] [place], [address] Creatinine [Mass/Vol] 0.58 mg/dL Low 0.70-1.20 [facility] Comment on above: Performed By: #### L 506.0200, L503.0106, L100.9950, L503.6030, L503.6550 #### [facility] [address] [place], [address] ECRCL 257.84 ml/min High 50-250 [facility] Comment on above: Performed By: #### L 506.0200, L503.0106, L100.9950, L503.6030, L503.6550 #### [facility] [address] [place], [address] GAP 9 Normal 5-15 [facility] Comment on above: Performed By: #### L 506.0200, L503.0106, L100.9950, L503.6030, L503.6550 #### [facility] [address] [place], [address] GFR/1.73 sq M.predicted among non-blacks MDRD (S/P/Bld) [Vol rate/Area] 121 mL/min/{1.73_m2} Normal >60 [facility] Comment on above: Result Comment: mL/m in/1.73m2 CKD-EPI Creatinine Equation (2020) Performed By: #### L 506.0200, L503.0106, L100.9950, L503.6030, L503.6550 #### [facility] [address] [place], [address] Globulin (S) [Mass/Vol] 4.2 g/dL Normal 2.2-4.2 [facility] Comment on above: Performed By: #### L 506.0200, L503.0106, L100.9950, L503.6030, L503.6550 #### [facility] [address] [place], [address] Glucose [Mass/Vol] 154 mg/dL High 70-99 [facility] Comment on above: Performed By: #### L 506.0200, L503.0106, L100.9950, L503.6030, L503.6550 #### [facility] [address] [place], [address] Potassium [Moles/Vol] 3.6 mmol/L Normal 3.3-5.1 [facility] Comment on above: Performed By: #### L 506.0200, L503.0106, L100.9950, L503.6030, L503.6550 #### [facility] [address] [place], [address] Sodium [Moles/Vol] 133 mmol/L Normal 133-145 [facility] Comment on above: Performed By: #### L 506.0200, L503.0106, L100.9950, L503.6030, L503.6550 #### [facility] [address] [place], [address] T PROT 6.3 g/dL Normal 5.9-8.4 [facility] Comment on above: Performed By: #### L 506.0200, L503.0106, L100.9950, L503.6030, L503.6550 #### [facility] [address] [place], [address] Urea nitrogen [Mass/Vol] 8 mg/dL Normal 4-19 [facility] Comment on above: Performed By: #### L 506.0200, L503.0106, L100.9950, L503.6030, L503.6550 #### [facility] [address] [place], [address] Eosinophil percentageOrdered By: Myriam Aguilar on 07-25-2025 Eosinophils/100 WBC (Bld) 5.6 % High 0-5 [facility] Immature granulocytes/100 WB C Auto (Bld)Ordered By: Myriam Aguilar on 07-25-2025 Immature granulocytes/100 WBC (Bld) 1.700 % High 0.0-0.9 [facility] Comment on above: IG% - Immature Granu locytes (promyelocytes, myelocytes and metamyelocytes) > 1% indicates that a LEFT SHIFT is Present. Laboratory - Hematology and Cell countsOrdered By: Myriam Aguilar on 07-25-2025 Anisocytosis Ql (Bld) 3+ [facility] Monocyte percentageOrdered B y: Myriam Aguilar on 07-25-2025 Monocytes/100 WBC (Bld) 19.1 % High 0-10 [facility] Neutrophil percentageOrdered By: Myriam Aguilar on 07-25-2025 Neutrophils/100 WBC (Bld) 57.6 % 47-70 [facility] Nucleated red blood cell per centageOrdered By: Myriam Aguilar on 07-25-2025 Nucleated RBC/100 WBC (Bld) [Ratio] 0 % 0-5 [facility] Ovalocyte detectionOrdered B y: Myriam Aguilar on 07-25-2025 Ovalocytes LM Ql (Bld) 1+ [facility] Urine Cultureon 07-25-2025 URC #1, 2 Below infectio n level. Urine Culture Streptococcus agalactiae (B) Portal Count <1000 Mixed Gram Positive Organisms Mixed Gram Positive Organisms MIXC Mixed contaminants. Submit a new specimen if indicated. Normal [facility] Comment on above: Performed By: #### L 501.080 #### [facility] [address] [place], [address] Bedside Glucoseon 07-24-2025 FINGERSTICK GLU 201 mg/dL High -106 [facility] Comment on above: Result Comment: PADDY GEMENT OF PATIENT CARE PER NURSING PROTOCOL Performed By: #### L 506.0200, L503.0106, L100.9950, L503.6030, L503.6550 #### [facility] [address] [place], [address] FINGERSTICK GLU 230 mg/dL High 74-106 [facility] Comment on above: Result Comment: PADDY GEMENT OF PATIENT CARE PER NURSING PROTOCOL Performed By: #### L 501.080 #### [facility] [address] [place], [address] FINGERSTICK GLU 137 mg/dL High [address] [place] [address] Comment on above: Result Comment: PADDY GEMENT OF PATIENT CARE PER NURSING PROTOCOL Performed By: #### L 500.4050, L100.0100 #### [facility] [address] [place], [address] FINGERSTICK GLU 133 mg/dL High -106 [facility] Comment on above: Result Comment: PADDY GEMENT OF PATIENT CARE PER NURSING PROTOCOL Performed By: #### L 506.0200, L503.0106, L100.9950, L503.6030, L503.6550 #### [facility] [address] [place], [address] Blood manual differential co mment interpretation (narrative result)Ordered By: Timoteo Cooper on 07-24-2025 Manual differential comment Hans (Bld) [Interp] SCANNED [facility] CBC W/Diff, Automatedon 07-15 ACANTHOCYTE RARE Normal [facility] Comment on above: Performed By: #### L 500.4050, L100.0100 #### [facility] [address] [place], [address] Anisocytosis Ql (Bld) 2+ Normal [facility] Comment on above: Performed By: #### L 500.4050, L100.0100 #### [facility] [address] [place], [address] BASO STIPPLING 1+ Normal [facility] Comment on above: Performed By: #### L 500.4050, L100.0100 #### [facility] [address] [place], [address] PLT EST SLT DEC Normal ADEQ [facility] Comment on above: Performed By: #### L 500.4050, L100.0100 #### [facility] [address] [place], [address] POLYCHROMASIA 1+ Normal [facility] Comment on above: Performed By: #### L 500.4050, L100.0100 #### [facility] [address] [place], [address] SMEAR COMMENT SCANNED Normal [facility] Comment on above: Performed By: #### L 500.4050, L100.0100 #### [facility] [address] [place], [address] Comprehensive Metabolic Prof [facility] 07-24-2025 Albumin [Mass/Vol] 2.2 g/dL Low 3.5-5.0 [facility] Comment on above: Performed By: #### L 500.4050, L100.0100 #### [facility] [address] [place], [address] Albumin/Globulin [Mass ratio] 0.6 {ratio} Low 0.9-2.4 [facility] Comment on above: Performed By: #### L 500.4050, L100.0100 #### [facility] [address] [place], [address] ALK PHOS 110 U/L Normal 40-129 [facility] Comment on above: Performed By: #### L 500.4050, L100.0100 #### [facility] [address] [place], [address] ALT [Catalytic activity/Vol] 24 U/L Normal <=46 [facility] Comment on above: Performed By: #### L 500.4050, L100.0100 #### [facility] [address] [place], [address] AST [Catalytic activity/Vol] 41 U/L High <=37 [facility] Comment on above: Performed By: #### L 500.4050, L100.0100 #### [facility] [address] [place], [address] Bilirubin [Mass/Vol] 2.01 mg/dL High 0.00-1.[address] [facility] Comment on above: Performed By: #### L 500.4050, L100.0100 #### [facility] [address] [place], [address] BUN/CRE 13.5 RATIO Normal 10-20 [facility] Comment on above: Performed By: #### L 500.4050, L100.0100 #### [facility] [address] [place], [address] Calcium [Mass/Vol] 7.5 mg/dL Low 7.6-11.0 [facility] Comment on above: Performed By: #### L 500.4050, L100.0100 #### [facility] [address] [place], [address] Chloride [Moles/Vol] 100 mmol/L Normal 98-[address] [facility] Comment on above: Performed By: #### L 500.4050, L100.0100 #### [facility] [address] [place], [address] CO2 [Moles/Vol] 23.7 mmol/L Normal 21.0-32.0 [facility] Comment on above: Performed By: #### L 500.4050, L100.0100 #### [facility] [address] [place], [address] Creatinine [Mass/Vol] 0.64 mg/dL Low 0.70-1.20 [facility] Comment on above: Performed By: #### L 500.4050, L100.0100 #### [facility] [address] [place], [address] ECRCL 233.67 ml/min Normal 50-250 [facility] Comment on above: Performed By: #### L 500.4050, L100.0100 #### [facility] [address] [place], [address] GAP 8 Normal 5-15 [facility] Comment on above: Performed By: #### L 500.4050, L100.0100 #### [facility] [address] [place], [address] GFR/1.73 sq M.predicted among non-blacks MDRD (S/P/Bld) [Vol rate/Area] 117 mL/min/{1.73_m2} Normal >60 [facility] Comment on above: Result Comment: mL/m in/1.73m2 CKD-EPI Creatinine Equation (2020) Performed By: #### L 500.4050, L100.0100 #### [facility] [address] [place], [address] Globulin (S) [Mass/Vol] 4.0 g/dL Normal 2.2-4.2 [facility] Comment on above: Performed By: #### L 500.4050, L100.0100 #### [facility] [address] [place], [address] Glucose [Mass/Vol] 146 mg/dL High 70-99 [facility] Comment on above: Performed By: #### L 500.4050, L100.0100 #### [facility] [address] [place], [address] Potassium [Moles/Vol] 3.7 mmol/L Normal 3.3-5.1 [facility] Comment on above: Performed By: #### L 500.4050, L100.0100 #### [facility] [address] [place], [address] Sodium [Moles/Vol] 131 mmol/L Low 133-145 [facility] Comment on above: Performed By: #### L 500.4050, L100.0100 #### [facility] [address] [place], [address] T PROT 6.2 g/dL Normal 5.9-8.4 [facility] Comment on above: Performed By: #### L 500.4050, L100.0100 #### [facility] [address] [place], [address] Urea nitrogen [Mass/Vol] 9 mg/dL Normal 4-19 [facility] Comment on above: Performed By: #### L 500.4050, L100.0100 #### [facility] [address] [place], [address] Erythrocyte basophilic stipp ling detectionOrdered By: Timoteo Cooper on 07-24-2025 Basophilic stippling LM Ql (Bld) 1+ [facility] Platelet estimateOrdered By: Timoteo Cooper on 07-24-2025 Platelets LM Ql (Bld) SLT DEC ADEQ [facility] Abdomen Limitedon 07-23-2025 Abdomen Limited [facility] [address] [place] [address] Abdomen Limited MR#: [id number] Acct: [id number] Name: ADRY,LEON ANGELA Rep #: [id number] : 1980 M 45 From: Landen nogueira MD PCP: Dr. Alis Duran MD Status: ADM IN Study: Abdomen Limited Date of Exam: 07/23/25 Exam# [id number] Ordering Dr: Timoteo Cooper MD PROCEDURE: ABDOMEN [...] in the right upper quadrant. Reading Location: [id number] CC: Dr. Alis Duran MD; Dr. Timoteo Cooper MD Sound Assistant: Signed Normal [facility] Bedside Glucoseon 07-23-2025 FINGERSTICK GLU 190 mg/dL High 74-106 [facility] Comment on above: Result Comment: PADDY GEMENT OF PATIENT CARE PER NURSING PROTOCOL Performed By: #### L 506.0200, L503.0106, L100.9950, L503.6030, L503.6550 #### [facility] [address] [place], [address] FINGERSTICK GLU 228 mg/dL High 74-106 [facility] Comment on above: Result Comment: PADDY GEMENT OF PATIENT CARE PER NURSING PROTOCOL Performed By: #### L 506.0200, L503.0106, L100.9950, L503.6030, L503.6550 #### [facility] [address] [place], [address] FINGERSTICK GLU 226 mg/dL High 74-106 [facility] Comment on above: Result Comment: PADDY GEMENT OF PATIENT CARE PER NURSING PROTOCOL Performed By: #### L 501.080 #### [facility] [address] [place], [address] FINGERSTICK GLU 129 mg/dL High 74-106 [facility] Comment on above: Result Comment: PADDY GEMENT OF PATIENT CARE PER NURSING PROTOCOL Performed By: #### L 500.4050, L100.0100 #### [facility] [address] [place], [address] CBC W/Diff, Automatedon 09-0 Anisocytosis Ql (Bld) 1+ Normal [facility] Comment on above: Performed By: #### L 500.4050, L100.0100 #### [facility] [address] [place], [address] Comprehensive Metabolic Prof ilon 07-23-2025 Chloride [Moles/Vol] 101 mmol/L Normal 98-[address] [facility] Comment on above: Performed By: #### L 500.4050, L100.0100 #### [facility] [address] [place], [address] CO2 [Moles/Vol] 21.7 mmol/L Normal 21.0-32.0 [facility] Comment on above: Performed By: #### L 500.4050, L100.0100 #### [facility] [address] [place], [address] GAP 9 Normal 5-15 [facility] Comment on above: Performed By: #### L 500.4050, L100.0100 #### [facility] [address] [place], [address] Potassium [Moles/Vol] 3.8 mmol/L Normal 3.3-5.1 [facility] Comment on above: Performed By: #### L 500.4050, L100.0100 #### [facility] [address] [place], [address] Albumin [Mass/Vol] 2.1 g/dL Low 3.5-5.0 [facility] Comment on above: Performed By: #### L 500.4050, L100.0100 #### [facility] [address] [place], [address] Albumin/Globulin [Mass ratio] 0.6 {ratio} Low 0.9-2.4 [facility] Comment on above: Performed By: #### L 500.4050, L100.0100 #### [facility] [address] [place], [address] ALK PHOS 126 U/L Normal 40-129 [facility] Comment on above: Performed By: #### L 500.4050, L100.0100 #### [facility] [address] [place], [address] ALT [Catalytic activity/Vol] 24 U/L Normal <=46 [facility] Comment on above: Performed By: #### L 500.4050, L100.0100 #### [facility] [address] [place], [address] AST [Catalytic activity/Vol] 36 U/L Normal <=37 [facility] Comment on above: Performed By: #### L 500.4050, L100.0100 #### [facility] [address] [place], [address] Bilirubin [Mass/Vol] 2.12 mg/dL High 0.00-1.[address] [facility] Comment on above: Performed By: #### L 500.4050, L100.0100 #### [facility] [address] [place], [address] BUN/CRE 12.8 RATIO Normal 10-20 [facility] Comment on above: Performed By: #### L 500.4050, L100.0100 #### [facility] [address] [place], [address] Calcium [Mass/Vol] 7.5 mg/dL Low 7.6-11.0 [facility] Comment on above: Performed By: #### L 500.4050, L100.0100 #### [facility] [address] [place], [address] Creatinine [Mass/Vol] 0.70 mg/dL Normal 0.70-1.20 [facility] Comment on above: Performed By: #### L 500.4050, L100.0100 #### [facility] [address] [place], [address] ECRCL 212.39 ml/min Normal 50-250 [facility] Comment on above: Performed By: #### L 500.4050, L100.0100 #### [facility] [address] [place], [address] GFR/1.73 sq M.predicted among non-blacks MDRD (S/P/Bld) [Vol rate/Area] 114 mL/min/{1.73_m2} Normal >60 [facility] Comment on above: Result Comment: mL/m in/1.73m2 CKD-EPI Creatinine Equation (2020) Performed By: #### L 500.4050, L100.0100 #### [facility] [address] [place], [address] Globulin (S) [Mass/Vol] 3.6 g/dL Normal 2.2-4.2 [facility] Comment on above: Performed By: #### L 500.4050, L100.0100 #### [facility] [address] [place], [address] Glucose [Mass/Vol] 154 mg/dL High 70-99 [facility] Comment on above: Performed By: #### L 500.4050, L100.0100 #### [facility] [address] [place], [address] Sodium [Moles/Vol] 132 mmol/L Low 133-145 [facility] Comment on above: Performed By: #### L 500.4050, L100.0100 #### [facility] [address] [place], [address] T PROT 5.7 g/dL Low 5.9-8.4 [facility] Comment on above: Performed By: #### L 500.4050, L100.0100 #### [facility] [address] [place], [address] Urea nitrogen [Mass/Vol] 9 mg/dL Normal 4-19 [facility] Comment on above: Performed By: #### L 500.4050, L100.0100 #### [facility] [address] [place], [address] Ferritinon 07-23-2025 Ferritin [Mass/Vol] 104 ng/mL Normal 37-417 [facility] Comment on above: Performed By: #### L 506.0200, L503.0106, L100.9950, L503.6030, L503.6550 #### [facility] [address] [place], [address] Folate [Moles/volume] in Ser um or PlasmaOrdered By: Timoteo Cooper on 07-23-2025 Folate [Moles/Vol] 10.50 ng/mL 4.60-34.80 [facility] Folates,Serum (Folic Acid)on 07-23-2025 FOLATES,SERUM 10.50 ng/mL Normal 4.60-34.80 [facility] Comment on above: Performed By: #### L 506.0200, L503.0106, L100.9950, L503.6030, L503.6550 #### [facility] [address] [place], [address] International normalized rat io (INR) calculationOrdered By: Timoteo Cooper on 07-23-2025 INR Coag (Bld) [Relative time] 1.6 {INR} [facility] Iron measurement (mass/mass) Ordered By: Timoteo Cooper on 07-23-2025 Iron (Unsp spec) [Mass/Mass] 152 ug/dL 65-175 [facility] Iron+Iron Binding Capacityon 07-23-2025 Iron [Mass/Vol] 152 ug/dL Normal 65-175 [facility] Comment on above: Performed By: #### L 506.0200, L503.0106, L100.9950, L503.6030, L503.6550 #### [facility] [address] [place], [address] IRON SATURATION 57.0 High 9-55 [facility] Comment on above: Performed By: #### L 506.0200, L503.0106, L100.9950, L503.6030, L503.6550 #### [facility] [address] [place], [address] TIBC 267 ug/dL Normal 250-450 [facility] Comment on above: Performed By: #### L 506.0200, L503.0106, L100.9950, L503.6030, L503.6550 #### [facility] [address] [place], [address] UIBC 115 ug/dL Low 228-428 [facility] Comment on above: Performed By: #### L 506.0200, L503.0106, L100.9950, L503.6030, L503.6550 #### [facility] [address] [place], [address] No Panel InformationOrdered By: Timoteo Cooper on 07-23-2025 Unsaturated Iron Binding Capacity 115 ug/dL Low 228-428 [facility] Prothrombin Time w/INRon INR Coag (PPP) [Relative time] 1.6 {INR} Normal [facility] Comment on above: Performed By: #### L 500.4050, L100.0100 #### [facility] [address] [place], [address] PT Coag (PPP) [Time] 19.8 s High 11.7-14.[address] [facility] Comment on above: Performed By: #### L 500.4050, L100.0100 #### [facility] [address] [place], [address] Prothrombin timeOrdered By: Timoteo Cooper on 07-23-2025 PT Coag (PPP) [Time] 19.8 s High 11.7-14.[address] [facility] Retic Panelon 07-23-2025 IM RET FRACTION 38.50 High 3.00-15.90 [facility] Comment on above: Performed By: #### L 506.0200, L503.0106, L100.9950, L503.6030, L503.6550 #### [facility] [address] [place], [address] RET-HE 30.2 pg Normal 30-35 [facility] Comment on above: Performed By: #### L 506.0200, L503.0106, L100.9950, L503.6030, L503.6550 #### [facility] [address] [place], [address] Retic Count 3.89 High 0.5-1.5 [facility] Comment on above: Performed By: #### L 506.0200, L503.0106, L100.9950, L503.6030, L503.6550 #### [facility] [address] [place], [address] Reticulocyte hemoglobin equi valent (RET-He) measurementOrdered By: Timoteo Cooper on 07-23-2025 Hemoglobin (Reticulocytes) [Entitic mass] 30.2 pg 30-35 [facility] Reticulocytes Auto (Bld) [#/ Vol]Ordered By: Timoteo Cooper on 07-23-2025 Reticulocytes/100 RBC (Bld) 3.89 % High 0.5-1.5 [facility] Serum or plasma ferritin shelby surement (mass/volume)Ordered By: Timoteo Cooper on 07-23-2025 Ferritin [Mass/Vol] 104 ng/mL 37-417 [facility] Serum or plasma iron saturat ion measurement (mass fraction)Ordered By: Timoteo Cooper on 07-23-2025 Iron saturation [Mass fraction] 57.0 % High 9-55 [facility] Vitamin B12on 07-23-2025 Cobalamin (Vitamin B12) [Mass/Vol] 1344 pg/mL High 180-914 [facility] Comment on above: Performed By: #### L 506.0200, L503.0106, L100.9950, L503.6030, L503.6550 #### [facility] [address] [place], [address] Vitamin B12 ser/plasOrdered By: Timoteo Cooper on 07-23-2025 Cobalamin (Vitamin B12) [Mass/Vol] 1344 pg/mL High 180-914 [facility] Bedside Glucoseon 07-22-2025 FINGERSTICK GLU 194 mg/dL High 74-106 [facility] Comment on above: Result Comment: PADDY GEMENT OF PATIENT CARE PER NURSING PROTOCOL Performed By: #### L 501.080 #### [facility] [address] [place], [address] FINGERSTICK GLU 236 mg/dL High 74-106 [facility] Comment on above: Result Comment: PADDY GEMENT OF PATIENT CARE PER NURSING PROTOCOL Performed By: #### L 501.080 #### [facility] [address] [place], [address] FINGERSTICK GLU 214 mg/dL High 74-106 [facility] Comment on above: Result Comment: PADDY GEMENT OF PATIENT CARE PER NURSING PROTOCOL Performed By: #### L 506.0200, L503.0106, L100.9950, L503.6030, L503.6550 #### [facility] [address] [place], [address] FINGERSTICK GLU 149 mg/dL High 74-106 [facility] Comment on above: Result Comment: PADDY GEMENT OF PATIENT CARE PER NURSING PROTOCOL Performed By: #### L 506.0200, L503.0106, L100.9950, L503.6030, L503.6550 #### [facility] [address] [place], [address] CBC W/Diff, Automatedon 09-0 Anisocytosis Ql (Bld) 2+ Normal [facility] Comment on above: Performed By: #### L 506.0200, L503.0106, L100.9950, L503.6030, L503.6550 #### [facility] [address] [place], [address] OVALOCYTE 1+ Normal [facility] Comment on above: Performed By: #### L 506.0200, L503.0106, L100.9950, L503.6030, L503.6550 #### [facility] [address] [place], [address] PLT EST SLT DEC Normal ADEQ [facility] Comment on above: Performed By: #### L 506.0200, L503.0106, L100.9950, L503.6030, L503.6550 #### [facility] [address] [place], [address] POLYCHROMASIA 1+ Normal [facility] Comment on above: Performed By: #### L 506.0200, L503.0106, L100.9950, L503.6030, L503.6550 #### [facility] [address] [place], [address] Calculated very low density lipoprotein (VLDL) cholesterol measurementOrdered By: Timoteo Cooper on 07-22-2025 Calculated very low density lipoprotein (VLDL) cholesterol measurement 21 mg/dL 5-40 [facility] Comprehensive Metabolic Prof ilon 07-22-2025 Albumin [Mass/Vol] 2.2 g/dL Low 3.5-5.0 [facility] Comment on above: Performed By: #### L 506.0200, L503.0106, L100.9950, L503.6030, L503.6550 #### [facility] [address] [place], [address] Albumin/Globulin [Mass ratio] 0.6 {ratio} Low 0.9-2.4 [facility] Comment on above: Performed By: #### L 506.0200, L503.0106, L100.9950, L503.6030, L503.6550 #### [facility] [address] [place], [address] ALK PHOS 131 U/L High 40-129 [facility] Comment on above: Performed By: #### L 506.0200, L503.0106, L100.9950, L503.6030, L503.6550 #### [facility] [address] [place], [address] ALT [Catalytic activity/Vol] 26 U/L Normal <=46 [facility] Comment on above: Performed By: #### L 506.0200, L503.0106, L100.9950, L503.6030, L503.6550 #### [facility] [address] [place], [address] AST [Catalytic activity/Vol] 36 U/L Normal <=37 [facility] Comment on above: Performed By: #### L 506.0200, L503.0106, L100.9950, L503.6030, L503.6550 #### [facility] [address] [place], [address] Bilirubin [Mass/Vol] 2.57 mg/dL High 0.00-1.[address] [facility] Comment on above: Performed By: #### L 506.0200, L503.0106, L100.9950, L503.6030, L503.6550 #### [facility] [address] [place], [address] BUN/CRE 12.3 RATIO Normal 10-20 [facility] Comment on above: Performed By: #### L 506.0200, L503.0106, L100.9950, L503.6030, L503.6550 #### [facility] [address] [place], [address] Calcium [Mass/Vol] 7.7 mg/dL Normal 7.6-11.0 [facility] Comment on above: Performed By: #### L 506.0200, L503.0106, L100.9950, L503.6030, L503.6550 #### [facility] [address] [place], [address] Chloride [Moles/Vol] 100 mmol/L Normal 98-[address] [facility] Comment on above: Performed By: #### L 506.0200, L503.0106, L100.9950, L503.6030, L503.6550 #### [facility] [address] [place], [address] CO2 [Moles/Vol] 22.4 mmol/L Normal 21.0-32.0 [facility] Comment on above: Performed By: #### L 506.0200, L503.0106, L100.9950, L503.6030, L503.6550 #### [facility] [address] [place], [address] Creatinine [Mass/Vol] 0.69 mg/dL Low 0.70-1.20 [facility] Comment on above: Performed By: #### L 506.0200, L503.0106, L100.9950, L503.6030, L503.6550 #### [facility] [address] [place], [address] ECRCL 215.46 ml/min Normal 50-250 [facility] Comment on above: Performed By: #### L 506.0200, L503.0106, L100.9950, L503.6030, L503.6550 #### [facility] [address] [place], [address] GAP 7 Normal 5-15 [facility] Comment on above: Performed By: #### L 506.0200, L503.0106, L100.9950, L503.6030, L503.6550 #### [facility] [address] [place], [address] GFR/1.73 sq M.predicted among non-blacks MDRD (S/P/Bld) [Vol rate/Area] 115 mL/min/{1.73_m2} Normal >60 [facility] Comment on above: Result Comment: mL/m in/1.73m2 CKD-EPI Creatinine Equation (2020) Performed By: #### L 506.0200, L503.0106, L100.9950, L503.6030, L503.6550 #### [facility] [address] [place], [address] Globulin (S) [Mass/Vol] 3.8 g/dL Normal 2.2-4.2 [facility] Comment on above: Performed By: #### L 506.0200, L503.0106, L100.9950, L503.6030, L503.6550 #### [facility] [address] [place], [address] Glucose [Mass/Vol] 167 mg/dL High 70-99 [facility] Comment on above: Performed By: #### L 506.0200, L503.0106, L100.9950, L503.6030, L503.6550 #### [facility] [address] [place], [address] Potassium [Moles/Vol] 4.0 mmol/L Normal 3.3-5.1 [facility] Comment on above: Performed By: #### L 506.0200, L503.0106, L100.9950, L503.6030, L503.6550 #### [facility] [address] [place], [address] Sodium [Moles/Vol] 130 mmol/L Low 133-145 [facility] Comment on above: Performed By: #### L 506.0200, L503.0106, L100.9950, L503.6030, L503.6550 #### [facility] [address] [place], [address] T PROT 6.0 g/dL Normal 5.9-8.4 [facility] Comment on above: Performed By: #### L 506.0200, L503.0106, L100.9950, L503.6030, L503.6550 #### [facility] [address] [place], [address] Urea nitrogen [Mass/Vol] 8 mg/dL Normal 4-19 [facility] Comment on above: Performed By: #### L 506.0200, L503.0106, L100.9950, L503.6030, L503.6550 #### [facility] [address] [place], [address] Echo Complete W/ Contraston 07-22-2025 Echo Complete W/ Contrast [facility] [address] [place] [address] Echo Complete W/ Contrast 07/22/25825 MR#: [id number] Acct: [id number] Name: LEON RIDER Rep #: [id number] : 1980 45 From: Rosalee Kirby MD Attending Dr: Dr. Timoteo Cooper MD Status: ADM IN Ordering Dr: Timoteo Cooper MD Date: 07/22/25 Location: [facility] Sex: M C Admitted: 07/21/25 Reason [...] MD Date Dictated: 07/22/25825 Date Transcribed: 07/22/251044 Sound Assistant: Signed Normal [facility] Echocardiogram study reportO rdered By: Rosalee Kirby on 07-22-2025 Study report [facility] [address] [place] [address] Echo Complete W/ Contrast 07/22/25 0826 MR#: [id number] Acct: [id number] Name: LEON RIDER Rep #:[id number] : 1980 45 From: Rosalee Kirby MD Attending Dr: Dr. Timoteo Cooper MD Status: ADM IN Ordering Dr: Timoteo Cooper MD Date: 0 07/22/25 Location: [facility] Sex: M C Admitted: 07/21/25 Reason [...] ~ Date Dictated: 07/22/25825 Date Transcribed: 07/22/251044 Sound Assistant: Signed [facility] Work Phone: Electrocardiogram reportOrde red By: Jcoelyne Henley on 07-22-2025 EKG study [facility] [address] [place] [address] 12 Lead EKG 07/21/25 0941 MR#: [id number] Acct: [id number] Name: LEON RIDER Rep #:[id number] : 1980 45 From: Jocelyne cruz MD Attending Dr: Dr. Timoteo Cooper MD Status: ADM IN Ordering Dr: Denice eLal DO Date: 0 07/21/25 Location: [facility] Sex: M C Admitted: 07/21/25 Test [...] abnormality Abnormal ECG Confirmed by Jocelyne Henley ([id number]), supervising film or videotape editor CARLITOS MORGAN ([id number]) on 07/22/2025 9:49:19 AM Referred By: Confirmed By: Jocelyne Henley 07/22/25 0949 Date _ Jocelyne Henley MD CC: Dr. Alis Duran MD; Dr. Denice Leal DO; Dr. Timoteo Cooper MD ~ Signed [facility] Other Hemoglobin A1con 07-22-2025 HbA1c (Bld) [Mass fraction] 6.1 % High <=5.6 [facility] Comment on above: Result Comment: Norm al < 5.7 % Prediabetic 5.7 - 6.4 % Diabetic >or= 6.5 % Please note range changes. Performed By: #### L 506.0200, L503.0106, L100.9950, L503.6030, L503.6550 #### [facility] [address] [place], [address] Hemoglobin A1c percentageOrd ered By: Timoteo Cooper on 07-22-2025 HbA1c (Bld) [Mass fraction] 6.1 % High <5.7 [facility] Comment on above: Normal < 5.7 % Predi abetic 5.7 - 6.4 % Diabetic >or= 6.5 % Please note range changes. LDL calc ser/plasOrdered By: Timoteo Cooper on 07-22-2025 Cholesterol in LDL [Mass/Vol] 68 mg/dL [facility] Comment on above: Bcvyqtflzp=181-128 m g/dL & Higher Ridf=086 mg/dL or greaterFriedwald Equation for LDL-C Lipid Profileon 07-22-2025 CHOL:HDL 5.63 Normal [facility] Comment on above: Performed By: #### L 506.0200, L503.0106, L100.9950, L503.6030, L503.6550 #### [facility] [address] [place], [address] Cholesterol [Mass/Vol] 108 mg/dL Normal <=200 [facility] Comment on above: Result Comment: Chol esterol level, Desirable <200 mg/dL Borderline high cholesterol 200-239 mg/dL High cholesterol >=240 mg/dL Recommendations of the NCEP Adult Treatment Panel for the following risk-cutoff thresholds for the [place] population. Performed By: #### L 506.0200, L503.0106, L100.9950, L503.6030, L503.6550 #### [facility] [address] [place], [address] Cholesterol in HDL [Mass/Vol] 19 mg/dL Low [facility] Comment on above: Result Comment: Cristina onal Cholesterol Education Program (NCEP) guidelines: <40 mg/dL: Low HDL-cholesterol (major risk factor for CHD) >= 60 mg/dL: High HDL-cholesterol (negative risk factor for CHD) HDL-cholesterol is affected by a number of factors, e.g. smoking, exercise, hormones, sex and age. Performed By: #### L 506.0200, L503.0106, L100.9950, L503.6030, L503.6550 #### [facility] [address] [place], [address] Cholesterol in LDL [Mass/Vol] 68 mg/dL Normal [facility] Comment on above: Result Comment: Bord bpness=005-610 mg/dL Higher Vpum=961 mg/dL or greater Friedwald Equation for LDL-C Performed By: #### L 506.0200, L503.0106, L100.9950, L503.6030, L503.6550 #### [facility] [address] [place], [address] Cholesterol in VLDL [Mass/Vol] 21 mg/dL Normal 5-40 [facility] Comment on above: Performed By: #### L 506.0200, L503.0106, L100.9950, L503.6030, L503.6550 #### [facility] [address] [place], [place], [id number] ([phone]) Triglyceride [Mass/Vol] 105 mg/dL Normal [facility] Comment on above: Result Comment: The drugs N-Acetylcysteine and Metamizole may falsely depress this assay. Normal range: <150 mg/dL Borderline High: 150-199 mg/dL High: 200-499 mg/dL Very High: >500 mg/dL Performed By: #### L 506.0200, L503.0106, L100.9950, L503.6030, L503.6550 #### [facility] [address] [facility] [place], [place], [phone] ([phone]) Screening total cholesterol/ high density lipoprotein (HDL) cholesterol ratioOrdered By: Timoteo Cooper on 07-22-2025 Cholesterol.total/[place] sterol in HDL [Mass ratio] 5.63 {ratio} [facility] Serum or plasma cholesterol in HDL measurement (mass/volume)Ordered By: Timoteo Cooper on 07-22-2025 Cholesterol in HDL [Mass/Vol] 19 mg/dL Low >40 [facility] Comment on above: National Cholesterol Education Program (NCEP) guidelines:<40 mg/dL: Low HDL-cholesterol (major risk factor for CHD)>= 60 mg/dL: High HDL-cholesterol (negative risk factor for CHD)HDL-cholesterol is affected by a number of factors, e.g. smoking, exercise, hormones, sex and age. Serum or plasma cholesterol measurement (mass/volume)Ordered By: Timoteo Cooper on 07-22-2025 Cholesterol [Mass/Vol] 108 mg/dL <201 [facility] Comment on above: Cholesterol level, D esirable <200 mg/dLBorderline high cholesterol 200-239 mg/dLHigh cholesterol >=240 mg/dLRecommendations of the NCEP Adult Treatment Panel for the following risk-cutoff thresholds for the [place] population. TSH DL <= 0.005 mIU/L QnOrde red By: Timoteo Cooper on 07-22-2025 TSH Qn 1.380 uIU/mL 0.300-4.20 0 [facility] Thyroid Stim Hormone (TSH)on 07-22-2025 TSH 1.380 uIU/mL Normal 0.300-4.20 0 [facility] Comment on above: Performed By: #### L 506.0200, L503.0106, L100.9950, L503.6030, L503.6550 #### [facility] [address] [place], [address] Triglycerides measurementOrd ered By: Timoteo Cooper on 07-22-2025 Triglyceride [Mass/Vol] 105 mg/dL <199 [facility] Comment on above: The drugs N-Acetylcy steine and Metamizole may falsely depress this assay. Normal range: <150 mg/dLBorderline High: 150-199 mg/dLHigh: 200-499 mg/dLVery High: >500 mg/dL 12 Lead EKGon 07-21-2025 12 Lead EKG [facility] [address] [place] [address] 12 Lead EKG 07/21/25 0941 MR#: [id number] Acct: [id number] Name: LEON RIDER Rep #: [id number] : 1980 45 From: Jocelyne Henley MD Attending Dr: Dr. Timoteo Cooper MD Status: ADM IN Ordering Dr: Denice Leal DO Date: 07/21/25 Location: [facility] Sex: M C Admitted: 07/21/25 Test [...] abnormality Abnormal ECG Confirmed by Jocelyne Henley ([id number]), supervising film or videotape editor CARLITOS MORGAN ([id number]) on 07/22/2025 9:49:19 AM Referred By: Confirmed By: Jocelyne Henley 07/22/2549 Date Jocelyne Henley MD CC: Dr. Alis Duran MD; Dr. Denice Leal DO; Dr. Timoteo Cooper MD Signed Normal [facility] Absolute lymphocyte countOrd ered By: Denice Leal on 07-21-2025 Lymphocytes Auto (Unsp spec) [#/Vol] 0.97 10*3/uL 0.83-4.51 [facility] Absolute neutrophil countOrd ered By: Denice Leal on 07-21-2025 Neutrophils (Bld) [#/Vol] 6.6 10*3/uL 2.0-7.7 [facility] Activated partial thrombopla stin time (aPTT) in platelet poor plasma by coagulation aOrdered By: Denice Leal on 07-21-2025 aPTT Coag (PPP) [Time] 39.4 s High 24.1-36.2 [facility] Anion gap in Serum or Plasma Ordered By: Denice Leal on 07-21-2025 Anion gap [Moles/Vol] 12 mmol/L 5-15 [facility] Automated lymphocyte count a s percentage of total leukocytesOrdered By: Denice eLal on 07-21-2025 Lymphocytes/100 WBC Auto (Unsp spec) 10.4 % Low 19-41 [facility] BUN/creatinine ratioOrdered By: Denice Leal on 07-21-2025 Urea nitrogen/Creatinine [Mass ratio] 12.9 mg/mg 10-20 [facility] Basophil percentageOrdered B y: Denice Leal on 07-21-2025 Basophils/100 WBC (Bld) 0.5 % 0-1 [facility] Bedside Glucoseon 07-21-2025 FINGERSTICK GLU 165 mg/dL High 74-106 [facility] Comment on above: Result Comment: PADDY GEMENT OF PATIENT CARE PER NURSING PROTOCOL Performed By: #### L 506.0200, L503.0106, L100.9950, L503.6030, L503.6550 #### [facility] [address] [place], [address] FINGERSTICK GLU 213 mg/dL High 74-106 [facility] Comment on above: Result Comment: PADDY GEMENT OF PATIENT CARE PER NURSING PROTOCOL Performed By: #### L 500.4050, L100.0100 #### [facility] [address] [place], [address] Bilirubin Test strip Ql (U)O rdered By: Denice Leal on 07-21-2025 Bilirubin Ql (U) 1 mg/dL High Negative [facility] Comment on above: COLOR OF URINE MAY A FFECT DIPSTICK RESULTS. Bilirubin directOrdered By: Timoteo Cooper on 07-21-2025 Bilirubin.direct [Mass/Vol] 1.79 mg/dL High 0.00-0.30 [facility] Bilirubin, Directon 07-21-20 25 Bilirubin.direct [Mass/Vol] 1.79 mg/dL High 0.00-0.30 [facility] Comment on above: Performed By: #### L 506.0200, L503.0106, L100.9950, L503.6030, L503.6550 #### [facility] [address] [place], [address] Bilirubin, totalOrdered By: Denice Leal on 07-21-2025 Bilirubin [Mass/Vol] 3.82 mg/dL High 0.00-1.[address] [facility] Blood cultureOrdered By: Hilaria Leal on 07-21-2025 Bacteria identified Cx Nom (Bld) No growth in 5 days. [facility] Blood manual differential co mment interpretation (narrative result)Ordered By: Denice Leal on 09-07-2025 Manual differential comment Hans (Bld) [Interp] SCANNED [facility] Blood polychromasia detectio n by light microscopyOrdered By: Denice Leal on 07-21-2025 Polychromasia LM Ql (Bld) 1+ [facility] CBC W/Diff, Automatedon MICROCYTIC 1+ Normal [facility] Comment on above: Performed By: #### L 499.0043 #### [facility] [address] [place], [address] POLYCHROMASIA 1+ Normal [facility] Comment on above: Performed By: #### L 499.0043 #### [facility] [address] [place], [address] Anisocytosis Ql (Bld) 2+ Normal [facility] Comment on above: Performed By: #### L 499.0043 #### [facility] [address] [place], [address] TARGET CELLS 1+ Normal [facility] Comment on above: Performed By: #### L 499.0043 #### [facility] [address] [place], [address] SMEAR COMMENT SCANNED Normal [facility] Comment on above: Performed By: #### L 499.0043 #### [facility] [address] [place], [address] CTA Chest W/WO Contraston CTA Chest W/WO Contrast [facility] [address] [place] [address] CTA Chest W/WO Contrast MR#: [id number] Acct: [id number] Name: LEON RIDER Rep #: [id number] : 1980 M 45 From: Jocelyne Salinas MD PCP: Dr. Alis Duran MD Status: REG ER Study: CTA Chest W/WO Contrast Date of Exam: 07/21/25 Exam# [id number] Ordering Dr: Godman,Denice DO PROCEDURE: CTA CHEST [...] edema. Mild mediastinal adenopathy. Cirrhosis. Reading Location: [id number] CC: Dr. Alis Duran MD; Dr. Denice Leal DO Sound Assistant: Signed Normal [facility] Carbon dioxide, total [Moles /volume] in Central venous bloodOrdered By: Denice Leal on 07-21-2025 CO2 [Moles/Vol] 17.8 mmol/L Low 21.0-32.0 [facility] Chloride assayOrdered By: Fransico Leal on 07-21-2025 Chloride [Moles/Vol] 97 mmol/L Low 98-[address] [facility] Comprehensive Metabolic Prof ilon 07-21-2025 Albumin [Mass/Vol] 2.5 g/dL Low 3.5-5.0 [facility] Comment on above: Performed By: #### L 499.0043 #### [facility] [address] [place], [address] Albumin/Globulin [Mass ratio] 0.6 {ratio} Low 0.9-2.4 [facility] Comment on above: Performed By: #### L 499.0043 #### [facility] [address] [place], [address] ALK PHOS 109 U/L Normal 40-129 [facility] Comment on above: Performed By: #### L 499.0043 #### [facility] [address] [place], [address] ALT [Catalytic activity/Vol] 33 U/L Normal <=46 [facility] Comment on above: Performed By: #### L 499.0043 #### [facility] [address] [place], [address] AST [Catalytic activity/Vol] 42 U/L High <=37 [facility] Comment on above: Performed By: #### L 499.0043 #### [facility] [address] [place], [address] Bilirubin [Mass/Vol] 3.82 mg/dL High 0.00-1.[address] [facility] Comment on above: Performed By: #### L 499.0043 #### [facility] [address] [place], [address] BUN/CRE 12.9 RATIO Normal 10-20 [facility] Comment on above: Performed By: #### L 499.0043 #### [facility] [address] [place], [address] Calcium [Mass/Vol] 8.1 mg/dL Normal 7.6-11.0 [facility] Comment on above: Performed By: #### L 499.0043 #### [facility] [address] [place], [address] Chloride [Moles/Vol] 97 mmol/L Low 98-[address] [facility] Comment on above: Performed By: #### L 499.0043 #### [facility] [address] [place], [address] CO2 [Moles/Vol] 17.8 mmol/L Low 21.0-32.0 [facility] Comment on above: Performed By: #### L 499.0043 #### [facility] [address] [place], [address] Creatinine [Mass/Vol] 0.66 mg/dL Low 0.70-1.20 [facility] Comment on above: Performed By: #### L 499.0043 #### [facility] [address] [place], [address] GAP 12 Normal 5-15 [facility] Comment on above: Performed By: #### L 499.0043 #### [facility] [address] [place], [address] GFR/1.73 sq M.predicted among non-blacks MDRD (S/P/Bld) [Vol rate/Area] 117 mL/min/{1.73_m2} Normal >60 [facility] Comment on above: Result Comment: mL/m in/1.73m2 CKD-EPI Creatinine Equation (2020) Performed By: #### L 499.0043 #### [facility] [address] [place], [address] Globulin (S) [Mass/Vol] 4.1 g/dL Normal 2.2-4.2 [facility] Comment on above: Performed By: #### L 499.0043 #### [facility] [address] [place], [address] Glucose [Mass/Vol] 168 mg/dL High 70-99 [facility] Comment on above: Performed By: #### L 499.0043 #### [facility] [address] [place], [address] Potassium [Moles/Vol] 3.7 mmol/L Normal 3.3-5.1 [facility] Comment on above: Performed By: #### L 499.0043 #### [facility] [address] [place], [address] Sodium [Moles/Vol] 127 mmol/L Low 133-145 [facility] Comment on above: Performed By: #### L 499.0043 #### [facility] [address] [place], [address] T PROT 6.6 g/dL Normal 5.9-8.4 [facility] Comment on above: Performed By: #### L 499.0043 #### [facility] [address] [place], [address] Urea nitrogen [Mass/Vol] 8 mg/dL Normal 4-19 [facility] Comment on above: Performed By: #### L 499.0043 #### [facility] [address] [place], [address] Emergency Department Summary on 07-21-2025 Emergency Department Summary [facility] Medical Records Department [address] [place] [address] Emergency Department Summary 07/21/25 MR#: [id number] Acct: [id number] Name: LEON RIDER Rep #: [id number] : 1980 45 From: Denice Leal DO PCP: Dr. Alis Duran MD Status:ADM IN Location: [address] History of Present Illness Chief Complaint: [...] couple minutes. He was working at the [employer] at that time. He returned that evening [...] other complaints or concerns reported this time [facility] Medical History HTN (hypertension) Diabetes Acid [...] 09:08 Surgical History H/O umbilical hernia repair [place] teeth extracted Social History (Updated 07/21/25 @ [...] Mildly ill-appearing (more content not included)... Normal [facility] Eosinophil percentageOrdered By: Denice Leal on 07-21-2025 Eosinophils/100 WBC (Bld) 2.3 % 0-5 [facility] Erythrocyte distribution wid th ratioOrdered By: Denice Leal on 07-21-2025 Erythrocyte distribution width (RBC) [Ratio] 22.6 % High 11.6-14.6 [facility] Erythrocyte distribution wid th standard deviationOrdered By: Denice Leal on 07-21-2025 Erythrocyte distribution width (RBC) [Ratio] 63.7 fl High 35.1-43.9 [facility] Glomerular filtration rate ( GFR) estimation/1.73 sq m using serum, plasma, or whole bOrdered By: Denice Leal on 07-21-2025 GFR/1.73 sq M.predicted among non-blacks MDRD (S/P/Bld) [Vol rate/Area] 117 mL/min/{1.73_m2} >60 [facility] Comment on above: mL/min/1.73m2 CKD-EP I Creatinine Equation (2020) H AND P Exam - [facility] 07-21-2025 H&P Exam - Hospitalist [facility] Medical Records Department [address] [place] [address] H P Exam - Hospitalist 07/21/25 1150 MR#: [id number] Acct: [id number] Name: LEON RIDER Rep #: [id number] : 1980 45 From: Timoteo Cooper MD PCP: Dr. Alis Duran MD Status:ADM IN Location: [place] [address] HPI - General General Date of Admission: [...] to 10 years ago. 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 [facility] Medical History HTN (hypertension) Diabetes Acid reflux Rectal bleeding Hemorrhoids Home Medications ???Medication ???Instructions ???Recorded ???Last Taken ???Type Diltiazem 10mg/Lidocaine 50mg See Rx Instructions [place] .BID #30 Unknown Rx Suppository 30 supp [...] 09:08 Surgical History H/O umbilical hernia repair [place] teeth extracted Social History household members: spouse [...] Mild crepitat (more content not included)... Normal [facility] Hematocrit Auto (Bld) [Volum e fraction]Ordered By: Denice Leal on 07-21-2025 Hematocrit (Bld) [Volume fraction] 26.8 % Low 40-54 [facility] Hemoglobin measurementOrdere d By: Denice Leal on 07-21-2025 Hemoglobin (Bld) [Mass/Vol] 8.8 g/dL Low 13.0-16.5 [facility] Immature granulocytes/100 WB C Auto (Bld)Ordered By: Denice Leal on 07-21-2025 Immature granulocytes/100 WBC (Bld) 0.600 % 0.0-0.9 [facility] Comment on above: IG% - Immature Granu locytes (promyelocytes, myelocytes and metamyelocytes) > 1% indicates that a LEFT SHIFT is Present. Influenza virus A and B and SARS-CoV-2 (COVID-19) and Respiratory syncytial virus RNAOrdered By: Denice Leal on 07-21-2025 SARS-CoV-2 (COVID-19) RNA CHARLIE+probe Ql (Unsp spec) [facility] International normalized rat io (INR) calculationOrdered By: Denice Leal on 07-21-2025 INR Coag (Bld) [Relative time] 1.7 {INR} [facility] Ketones Test strip Ql (U)Ord ered By: Denice Leal on 07-21-2025 Ketones Ql (U) Negative Negative [facility] L501.4021on 07-21-2025 Trop T High Sen 8 ng/L Normal <=22 [facility] Comment on above: Performed By: #### L 500.4050, L100.0100 #### [facility] [address] [place], [address] Laboratory - Chemistry and C hemistry - challengeOrdered By: Denice Leal on 07-21-2025 AST [Catalytic activity/Vol] 42 U/L High <38 [facility] - Hematology and Cell countsOrdered By: Denice Leal on 07-21-2025 Anisocytosis Ql (Bld) 2+ [facility] Lactic Acidon 07-21-2025 Lactate [Moles/Vol] 2.5 mmol/L Invalid Interpretation Code 0.0-2.0 [facility] Comment on above: Result Comment: Crit ical Result(s) Called at: 1515 by: CARROL GUPTA TO GIA MELLO??Results read back by same. Performed By: #### L 501.080 #### [facility] [address] [place], [address] Lactate [Moles/Vol] 3.2 mmol/L Invalid Interpretation Code 0.0-2.0 [facility] Comment on above: Order Comment: Y Result Comment: Crit ical Result(s) Called NJOHNSON at: 1019 by: LATASHA??Results read back by same. Performed By: #### L 499.0043 #### [facility] [address] [place], [place], [address] Lactic acid measurementOrder ed By: Denice Leal on 07-21-2025 Lactate [Moles/Vol] 2.5 mmol/L Critically high 0.0-2.0 [facility] Comment on above: Critical Result(s) C alled at: 1515 by: CARROL MELLO Results read back by same. Lactate [Moles/Vol] 3.2 mmol/L High 0.0-2.0 [facility] Comment on above: Critical Result(s) C alled CHELOKALEJANDRO at: 1019 by: LATASHA Results read back by same. M100.678on 07-21-2025 M100.678 Normal Reference Ran ge = Negative [facility] Instrument, PCR method SARS-CoV-2 (COVID 19) Negative INFLUENZA A Negative INFLUENZA B Negative RSV PCR Negative Normal [facility] Comment on above: Performed By: #### L 501.080 #### [facility] [address] [place], [place], [address] MCV (mean corpuscular volume ) determinationOrdered By: Denice Leal on 07-21-2025 MCV (RBC) [Entitic vol] 80.0 fL 80-94 [facility] Magnesiumon 07-21-2025 Magnesium [Mass/Vol] 1.8 mg/dL Normal 1.5-2.[address] [facility] Comment on above: Performed By: #### L 506.0200, L503.0106, L100.9950, L503.6030, L503.6550 #### [facility] [address] [place], [place], [address] Mean corpuscular hemoglobin (MCH) determinationOrdered By: Denice Leal on 07-21-2025 MCH (RBC) [Entitic mass] 26.3 pg Low 27.0-32.0 [facility] Mean corpuscular hemoglobin concentration (MCHC) determinationOrdered By: Denice Leal on 07-21-2025 MCHC (RBC) [Mass/Vol] 32.8 g/dL 32-36 [facility] Mean platelet volume determi nationOrdered By: Deniec Leal on 07-21-2025 Platelet mean volume (Bld) [Entitic vol] 10.3 fL 6.2-12.0 [facility] Microscopic analysis of urin e for red blood cells (RBC)Ordered By: Denice Leal on 07-21-2025 Microscopic analysis of urine for red blood cells (RBC) 0 SEEN /hpf 0-5 [facility] Monocyte percentageOrdered B y: Denice Leal on 07-21-2025 Monocytes/100 WBC (Bld) 15.8 % High 0-10 [facility] Mucus LM Ql (Urine sed)Order ed By: Denice Leal on 07-21-2025 Mucus Ql (Urine sed) 0 SEEN /hpf [facility] Natriuretic peptide.B prohor reji N-Terminal [Mass/volume] in Serum or PlasmaOrdered By: Denice Leal on 07-21-2025 Natriuretic peptide.B prohormone N-Terminal [Mass/Vol] 106 pg/mL <450 [facility] Comment on above: Heart Failure Unlike ly: < 300 pg/mLHeart Failure Likely< 50 Years: > 450 pg/mL50-75 Years: > 900 pg/mL>75 Years: > 1800 pg/mL Neutrophil percentageOrdered By: Denice Leal on 07-21-2025 Neutrophils/100 WBC (Bld) 70.4 % High 47-70 [facility] Nitrite Test strip Ql (U)Ord ered By: Denice Leal on 07-21-2025 Nitrite Ql (U) Negative Negative [facility] Nucleated red blood cell per centageOrdered By: Denice Leal on 07-21-2025 Nucleated RBC/100 WBC (Bld) [Ratio] 0 % 0-5 [facility] Partial Thromboplast Timeon 07-21-2025 aPTT Coag (Bld) [Time] 39.4 s High 24.1-36.2 [facility] Comment on above: Performed By: #### L 499.0043 #### [facility] [address] [place], [place], [address] Platelet countOrdered By: Fransico Leal on 07-21-2025 Platelets (Bld) [#/Vol] 112 10*3/uL Low 150-450 [facility] Potassium measurement (mass/ volume)Ordered By: Denice Leal on 07-21-2025 Potassium (Unsp spec) [Mass/Vol] 3.7 mmol/L 3.3-5.1 [facility] Pro- Brain NATRIURETIC PEPTI Chaparro 07-21-2025 Natriuretic peptide B (Bld) [Mass/Vol] 106 pg/mL Normal <=450 [facility] Comment on above: Result Comment: Hear t Failure Unlikely: < 300 pg/mL Heart Failure Likely < 50 Years: > 450 pg/mL 50-75 Years: > 900 pg/mL >75 Years: > 1800 pg/mL Performed By: #### L 499.0043 #### [facility] [address] [place], [place], [address] Protein Test strip Ql (U)Ord ered By: Denice Leal on 07-21-2025 Protein Ql (U) 30 mg/dl High Negative [facility] Prothrombin Time w/INRon INR Coag (PPP) [Relative time] 1.7 {INR} Normal [facility] Comment on above: Performed By: #### L 499.0043 #### [facility] [address] [place], [address] PT Coag (PPP) [Time] 20.3 s High 11.7-14.[address] [facility] Comment on above: Performed By: #### L 499.0043 #### [facility] [address] [place], [place], [address] Prothrombin timeOrdered By: Denice Leal on 07-21-2025 PT Coag (PPP) [Time] 20.3 s High 11.7-14.[address] [facility] RBC Auto (Bld) [#/Vol]Ordere d By: Denice Leal on 07-21-2025 RBC (Bld) [#/Vol] 3.35 10*6/uL Low 4.6-6.2 [facility] Serum creatinine measurement (mass/volume)Ordered By: Denice Leal on 07-21-2025 Creatinine [Mass/Vol] 0.66 mg/dL Low 0.70-1.20 [facility] Serum globulin measurementOr dered By: Denice Leal on 07-21-2025 Globulin (S) [Mass/Vol] 4.1 g/dL 2.2-4.2 [facility] Serum glucose measurement (m ass/volume)Ordered By: Denice Leal on 07-21-2025 Glucose [Mass/Vol] 168 mg/dL High 70-99 [facility] Serum or plasma alanine reyes otransferase (ALT) measurementOrdered By: Denice Leal on 07-21-2025 ALT [Catalytic activity/Vol] 33 U/L <47 [facility] Serum or plasma albumin wilfred urement (mass/volume)Ordered By: Denice Leal on 07-21-2025 Albumin [Mass/Vol] 2.5 g/dL Low 3.5-5.0 [facility] Serum or plasma albumin/glob ulin mass ratioOrdered By: Denice Leal on 07-21-2025 Albumin/Globulin [Mass ratio] 0.6 {ratio} Low 0.9-2.4 [facility] Serum or plasma alkaline roge sphatase measurementOrdered By: Denice Leal on 07-21-2025 ALP [Catalytic activity/Vol] 109 U/L 40-129 [facility] Serum or plasma calcium wilfred urement (mass/volume)Ordered By: Denice Leal on 07-21-2025 Calcium [Mass/Vol] 8.1 mg/dL 7.6-11.0 [facility] Serum or plasma urea nitroge n measurement (mass/volume)Ordered By: Denice Leal on 07-21-2025 Urea nitrogen [Mass/Vol] 8 mg/dL 4-19 [facility] Sodium levelOrdered By: Paula Leal on 07-21-2025 Sodium [Moles/Vol] 127 mmol/L Low 133-145 [facility] Squamous epithelial cells de tection in urine sediment by light microscopyOrdered By: Denice Leal on 07-21-2025 Epithelial cells.squamous LM Ql (Urine sed) 0 SEEN /hpf 0-5 [facility] Stool Occult Blood iFOBon STOB Normal Reference Ran ge = Negative Immunochemical Fecal Occult Blood (iFOBT) method. Hemoccult Stl Ql IA Limitation: Menstrual bleeding, constipation bleeding, bleeding hemorrhoids, and urinary bleeding conditions may interfere with test. Occult Blood Negative Normal [facility] Comment on above: Performed By: #### L 500.4050, L100.0100 #### [facility] [address] [place], [address] Stool gastrointestinal hemog lobin detection by immunologic methodOrdered By: Denice Leal on 07-21-2025 Lower GI hemoglobin IA Ql (Stl) [facility] TSH DL <= 0.005 mIU/L QnOrde red By: Denice Leal on 07-21-2025 TSH Qn 1.550 uIU/mL 0.300-4.20 0 [facility] Target cell detectionOrdered By: Denice Leal on 07-21-2025 Target cells LM Ql (Bld) 1+ [facility] Thyroid Stim Hormone (TSH)on 07-21-2025 TSH 1.550 uIU/mL Normal 0.300-4.20 0 [facility] Comment on above: Performed By: #### L 499.0043 #### [facility] [address] [place], [place], [address] Total proteinOrdered By: Hilaria Leal on 07-21-2025 Protein [Mass/Vol] 6.6 g/dL 5.9-8.4 [facility] Troponin T HS 2 HRon 025 Trop T High Sen 7 ng/L Normal <=22 [facility] Comment on above: Performed By: #### L 506.0200, L503.0106, L100.9950, L503.6030, L503.6550 #### [facility] [address] [place], [address] Troponin T HS 4 HRon 025 Trop T High Sen 7 ng/L Normal <=22 [facility] Comment on above: Performed By: #### L 499.0043 #### [facility] [address] [place], [address] Troponin T.cardiac [Mass/vol ume] in Serum or Plasma by High sensitivity methodOrdered By: Denice Leal on 07-21-2025 Troponin T.cardiac High sensitivity method [Mass/Vol] 7 ng/L <22 [facility] Troponin T.cardiac High sensitivity method [Mass/Vol] 7 ng/L <22 [facility] Troponin T.cardiac High sensitivity method [Mass/Vol] 8 ng/L <22 [facility] Type AND Screenon 07-21-2025 Ab SCREEN GEL Negative Normal [facility] Comment on above: Order Comment: A Performed By: #### L 500.4050, L100.0100 #### [facility] [address] [place], [address] Urinalysis, Completeon 07-21 BACTERIA 0 SEEN Normal None Seen [facility] Comment on above: Order Comment: CLEAN CATCH Performed By: #### L 501.080 #### [facility] [address] [place], [address] EPI,SQUAMOUS 0 SEEN Normal 0-5 [facility] Comment on above: Order Comment: CLEAN CATCH Performed By: #### L 501.080 #### [facility] [address] [place], [address] Mucus Ql (Urine sed) [address] [facility] Comment on above: Order Comment: CLEAN CATCH Performed By: #### L 501.080 #### [facility] [address] [place], [address] RBC 0 SEEN Normal 0-5 [facility] Comment on above: Order Comment: CLEAN CATCH Performed By: #### L 501.080 #### [facility] [address] [place], [place], [address] WBC 0 SEEN Normal 0-5 [facility] Comment on above: Order Comment: CLEAN CATCH Performed By: #### L 501.080 #### [facility] [address] [place], [place], [address] Urine clarityOrdered By: Hilaria Leal on 07-21-2025 Clarity (U) Clear Clear [facility] Urine color determinationOrd ered By: Denice Leal on 07-21-2025 Color (U) Yellow Yellow [facility] Urine cultureOrdered By: Hilaria Leal on 07-21-2025 Bacteria identified Cx Nom (U) Streptococcus agalactiae (B) Abnormal [facility] Bacteria identified Cx Nom (U) Positive Abnormal [facility] Urine glucose detectionOrder ed By: Denice Leal on 07-21-2025 Glucose Ql (U) Normal mg/dl Normal [facility] Urine leukocyte esterase det ection by dipstickOrdered By: Denice Leal on 07-21-2025 Leukocyte esterase Test strip Ql (U) Negative Negative [facility] Urine pHOrdered By: Denice samano on 07-21-2025 pH (U) 6.5 [pH] 5.0 - 8.0 [facility] Urine sediment bacteria coun t by microscopy (number/high power field)Ordered By: Denice Leal on 07-21-2025 Bacteria LM.HPF (Urine sed) [#/Area] 0 /[HPF] None Seen [facility] Urine specific gravity measu rementOrdered By: Denice Leal on 07-21-2025 Specific gravity (U) [Rel density] 1.010 1.002-1.03 0 [facility] Urine urobilinogen measureme ntOrdered By: Denice Leal on 07-21-2025 Urobilinogen Ql (U) 4 mg/dl High Normal [facility] White blood cell (WBC) count Ordered By: Denice Leal on 07-21-2025 WBC (Bld) [#/Vol] 9.3 10*3/uL 4.4-11.0 [facility] White blood cell countOrdere d By: Denice Leal on 07-21-2025 White blood cell count 0 SEEN /hpf 0-5 [facility] D-Dimer Quantitative (DVT/PE )on 07-19-2025 D-DIMER QUANT 2.09 FEU/ug/m Invalid Interpretation Code 0.27-0.49 [facility] Comment on above: Result Comment: D-Di huber ELEVATED (>0.49): Additional studies and clinical assessments are indicated to conclude diagnosis of: Deep Vein Thrombosis (DVT) or Pulmonary Embolism (PE) CRITICAL VALUE CALLED TO NOLAN GILES 07/19/25 1632 Apolonia Bearden. RESULTS READ BACK BY SAME. Performed By: #### L 499.0043 #### [facility] [address] [place], [address] Venous Duplex US, Unilateral on 07-19-2025 Venous Duplex US, Unilateral [facility] [address] [facility] [place] [address] Venous Duplex US, Unilateral 07/19/25 1358 MR#: [id number] Acct: [id number] Name: LEON RIDER Rep #: [id number] : 1980 45 From: Kalia Mcmahan MD Attending Dr: Yusef Mccoy NP [employer]ER OPERATOR-C Status: RE G CLI Ordering Dr: Yusef Mccoy NP VUL[employer]ER OPERATOR-C Date: 07/19/25 Location: [facility] Sex: M C [...] MD Date Dictated: 07/19/251357 Date Transcribed: 07/19/252238 Sound Assistant: Signed Normal [facility] Venous duplex ultrasound rep ortOrdered By: Kalia Mcmahan on 07-19-2025 US Vein [facility] [address] [place] [address] Venous Duplex US, Unilateral 07/19/25 1358 MR#: [id number] Acct: [id number] Name: LEON RIDER Rep #:[id number] : 1980 45 From: Kalia Mcmahan MD Attending Dr: Yusef Mccoy NP VULCANIZER OPERATOR-C Status: REG CLI Ordering Dr: Yusef Mccoy [...] Date Dictated: 07/19/25 1358 Date Transcribed: 07/19/252238 Sound Assistant: Signed [facility] Other Potassiumon 04-29-2025 Potassium [Moles/Vol] 4.1 mmol/L Normal 3.3-5.1 [facility] Comment on above: Order Comment: Order Date: 04/29/25Order Info: 2823-3 - K Performed By: #### L 499.0043 #### [facility] [place], [address] Potassium measurement (mass/ volume)Ordered By: Alis Duran on 04-29-2025 Potassium (Unsp spec) [Mass/Vol] 4.1 mmol/L 3.3-5.1 [facility] Surgery Visit Reporton 01-28 Surgery Visit Report [facility] [address] [place] [address] OFFICE VISIT Date of Service: 01/28/25 MR#: [id number] Acct: [id number] Name: LEON RIDER Rep #: [id number] : 1980 Provider: Dr. Lorie lim MD Age/Sex: 44/M Location: [facility] Status: Signed Intake Vital Signs 01/28/25 14:52 [...] ???Type Diltiazem 10mg/Lidocaine 50mg See Rx Instructions [place] .BID #30 01/28/25 Rx Suppository 30 supp [...] QDAY 01/28/25 01/28/25 H istory tablet (Januvia) [facility] Medical History (Updated 01/30/25 @ 12:[address] Lorie Willson MD) HTN (hypertension) Diabetes Acid reflux Rectal bleeding Hemorrhoids Surgical History (Updated 01/28/25 @ 14:44 by Erma Spaulding LPN) H/O umbilical hernia repair [place] teeth extracted Social History (Updated 01/28/25 @ [...] did have a colonoscopy in 2021 in [facility] he may have had polyps at that time. Patient states he has bowel movements daily denies constipation. Does admit to staying on the toilet for prolonged periods of time. Patient did get babt-lrv-bchsovc treatment for hemorrhoids/fissures??? Dr. De Santiago's which [...] prolonged times (more content not included)... Normal [facility] BASIC METABOLIC PANELon 05-0 Anion gap [Moles/Vol] 7 mmol/L Normal 5-15 [facility] Comment on above: Order Comment: Locat ion: Performed By: #### L AB129, XDL791, BLU843, LAB15, LAB18, LAB20 #### LEON SLOAN ([id number]) [facility] ([facility]) [address] [place] [address] B/C RATIO 10.0 Normal 10.0-28.6 [facility] Comment on above: Order Comment: Locat ion: Performed By: #### L AB129, WTZ142, JXP549, LAB15, LAB18, LAB20 #### LEON SLOAN ([id number]) [facility] ([facility]) [address] [address] Calcium [Mass/Vol] 7.9 mg/dL Low 8.7-10.4 [facility] Comment on above: Order Comment: Locat ion: Performed By: #### L AB129, OFC367, DAM113, LAB15, LAB18, LAB20 #### LEON SLOAN ([id number]) [facility] ([facility]) [address] [address] Chloride [Moles/Vol] 106 mmol/L Normal 98-107 [facility] Comment on above: Order Comment: Locat ion: Performed By: #### L AB129, MUP619, FWJ568, LAB15, LAB18, LAB20 #### LEON SLOAN ([id number]) [facility] ([facility]) [address] [address] [address] CO2 [Moles/Vol] 27 mmol/L Normal 20-31 [facility] COPCP Comment on above: Order Comment: Locat ion: Performed By: #### L AB129, [id number], KHK227, LAB15, LAB18, LAB20 #### LEON SLOAN ([id number]) [facility] ([facility]) [address] [address] Creatinine [Mass/Vol] 0.6 mg/dL Low 0.7-1.3 [facility] COPCP Comment on above: Order Comment: Locat ion: Performed By: #### L AB129, JVM135, LWV927, LAB15, LAB18, LAB20 #### LEON SLOAN ([id number]) [facility] ([facility]) [address] [address] GFR 121.3 mL/min/1.73m*2 Normal >=60.0 [facility] COPCP Comment on above: Order Comment: Locat ion: Performed By: #### L AB129, XEK012, WMA666, LAB15, LAB18, LAB20 ###Tom SLOAN ([id number]) [facility] ([facility]) [address] [address] Glucose [Mass/Vol] 136 mg/dL High 74-106 [facility] COPCP Comment on above: Order Comment: Locat ion: Performed By: #### L AB129, YIO322, IYF181, LAB15, LAB18, LAB20 #### LEON SLOAN ([id number]) [facility] ([facility]) [address] [address] Potassium [Moles/Vol] 3.6 mmol/L Normal 3.5-5.1 [facility] COPCP Comment on above: Order Comment: Locat ion: Performed By: #### L AB129, BES621, EHT187, LAB15, LAB18, LAB20 #### LEON SLOAN ([id number]) [facility] ([facility]) 400 [facility] [address] [place] [address] Sodium [Moles/Vol] 140 mmol/L Normal 136-145 [facility] COPCP Comment on above: Order Comment: Locat ion: Performed By: #### L AB129, SOP720, VJO842, LAB15, LAB18, LAB20 #### LEON SLOAN ([id number]) [facility] ([facility]) [address] [address] Urea nitrogen [Mass/Vol] 6 mg/dL Low 9-23 [facility] COPCP Comment on above: Order Comment: Locat ion: Performed By: #### L AB129, EYF181, UXI482, LAB15, LAB18, LAB20 #### LEON SLOAN ([id number]) [facility] ([facility]) [address] [place] [address] CBC WITH AUTO DIFFERENTIALon 03-20-2024 BASO # 0.1 K CUMM Normal 0.0-0.2 [facility] COPCP Comment on above: Order Comment: Locat ion: Performed By: #### L [id number], [id number] #### LEON SLOAN ([id number]) [facility] ([facility]) [address] [address] Basophils/100 WBC (Bld) 1.8 % Normal 0.0-3.0 [facility] COPCP Comment on above: Order Comment: Locat ion: Performed By: #### L [id number], [id number] #### LEON SLOAN ([id number]) [facility] ([facility]) [address] [facility] [address] [place] [address] Eosinophils (Bld) [#/Vol] 0.27 10*3/uL Normal 0.00-0.40 [facility] COPCP Comment on above: Order Comment: Locat ion: Performed By: #### L [id number], [id number] #### LEON SLOAN ([id number]) [facility] ([facility]) [address] [place] [address] Eosinophils/100 WBC (Bld) 5.9 % Normal 0.0-7.0 [facility] COPCP Comment on above: Order Comment: Locat ion: Performed By: #### Kathleen CHING, [id number] #### LEON SLOAN ([id number]) [facility] ([facility]) [address] [place] [address] Erythrocyte distribution width (RBC) [Ratio] 18.3 % High 11.5-15.5 [facility] COPCP Comment on above: Order Comment: Locat ion: Performed By: #### Kathleen [id number], [id number] #### LEON SLOAN ([id number]) [facility] ([facility]) [address] [place] [address] Hematocrit (Bld) [Volume fraction] 34.2 % Low 42.0-52.0 [facility] COPCP Comment on above: Order Comment: Locat ion: Performed By: #### Kathleen [id number], [id number] #### LEON SLOAN ([id number]) [facility] ([facility]) [address] [place] [address] Hemoglobin (Bld) [Mass/Vol] 10.8 g/dL Low 13.5-18.0 [facility] COPCP Comment on above: Order Comment: Locat ion: Performed By: #### L [id number], [id number] #### LEON SLOAN ([id number]) [facility] ([facility]) [address] [place] [address] IMMGRN# 0.0 K CUMM Normal 0.0-0.3 [facility] COPCP Comment on above: Order Comment: Locat ion: Performed By: #### L [id number], [id number] #### LEON SLOAN ([id number]) [facility] ([facility]) [address] [address] IMMGRN% 0.2 % Normal 0.0-3.0 [facility] COPCP Comment on above: Order Comment: Locat ion: Performed By: #### Kathleen BERNSTEINMP4029, [id number] #### LEON SLOAN ([id number]) [facility] ([facility]) [address] [address] LYMPH # 1.1 K CUMM Normal 0.7-4.5 [facility] COPCP Comment on above: Order Comment: Locat ion: Performed By: #### Kathleen [id number], [id number] #### LEON SLOAN ([id number]) [facility] ([facility]) [address] [place] [address] Lymphocytes/100 WBC (Bld) 23.2 % Normal 14.0-46.0 [facility] COPCP Comment on above: Order Comment: Locat ion: Performed By: #### Kathleen CHING, [id number] #### LEON SLOAN ([id number]) [facility] ([facility]) [address] [place] [address] MCH (RBC) [Entitic mass] 27.8 pg Normal 27.0-31.0 [facility] COPCP Comment on above: Order Comment: Locat ion: Performed By: #### Kathleen [id number], [id number] #### LEON SLOAN ([id number]) [facility] ([facility]) [address] [place] [address] MCHC (RBC) [Mass/Vol] 31.6 g/dL Low 32.0-36.0 [facility] COPCP Comment on above: Order Comment: Locat ion: Performed By: #### Kathleen BERNSTEINYK2588, [id number] #### LEON SLOAN ([id number]) [facility] ([facility]) [address] [place] [address] MCV (RBC) [Entitic vol] 87.9 fL Normal 78.0-100.0 [facility] COPCP Comment on above: Order Comment: Locat ion: Performed By: #### L [id number], [id number] #### LEON SLOAN ([id number]) [facility] ([facility]) [address] [address] MONO # 0.8 K CUMM Normal 0.1-1.0 [facility] COPCP Comment on above: Order Comment: Locat ion: Performed By: #### L [id number], [id number] #### LEON SLOAN ([id number]) [facility] ([facility]) [address] [place] [address] Monocytes/100 WBC (Bld) 16.6 % High 4.0-13.0 [facility] COPCP Comment on above: Order Comment: Locat ion: Performed By: #### Kathleen CHING, [id number] #### LEON SLOAN ([id number]) [facility] ([facility]) [address] [place] [address] ELISEO # 2.4 K CUMM Normal 1.8-7.8 [facility] COPCP Comment on above: Order Comment: Locat ion: Performed By: #### Kathleen BERNSTEINTW3243, [id number] #### LEON SLOAN ([id number]) [facility] ([facility]) [address] [place] [address] Neutrophils/100 WBC (Bld) 52.3 % Normal 40.0-74.0 [facility] COPCP Comment on above: Order Comment: Locat ion: Performed By: #### L [id number], [id number] #### LEON SLOAN ([id number]) [facility] ([facility]) [address] [place] [address] Nucleated RBC/100 WBC (Bld) [Ratio] 0.0 % Normal 0.0-0.9 [facility] COPCP Comment on above: Order Comment: Locat ion: Performed By: #### L [id number], [id number] #### LEON SLOAN ([id number]) [facility] ([facility]) [address] [place] [address] Platelet mean volume (Bld) [Entitic vol] 10.8 fL Normal 8.9-12.6 [facility] COPCP Comment on above: Order Comment: Locat ion: Performed By: #### Kathleen BERNSTEINHG3675, [id number] #### LEON SLOAN ([id number]) [facility] ([facility]) [address] [facility], [facility] [address] [place] [address] PLT 75 K CUMM Low 130-400 [facility] COPCP Comment on above: Order Comment: Locat ion: Performed By: #### Kathleen SINGH14, [id number] #### LEON SLOAN ([id number]) [facility] ([facility]) [address] [address] RBC 3.9 M CUMM Low 4.2-5.8 [facility] COPCP Comment on above: Order Comment: Locat ion: Performed By: #### Kathleen CHING, [id number] #### LEON SLOAN ([id number]) [facility] ([facility]) [address] [address] WBC 4.6 K CUMM Normal 3.8-10.6 [facility] COPCP Comment on above: Order Comment: Locat ion: Performed By: #### Kathleen CHING, [id number] #### LEON SLOAN ([id number]) [facility] ([facility]) [address] [address] HEPATIC PANELon 03-20-2024 Albumin [Mass/Vol] 2.8 g/dL Low 3.2-4.8 [facility] COPCP Comment on above: Order Comment: Locat ion: Performed By: #### L AB129, LEU270, DMX458, LAB15, LAB18, LAB20 #### LEON SLOAN ([id number]) [facility] ([facility]) [address] [address] ALP [Catalytic activity/Vol] 146 U/L High 40-127 [facility] COPCP Comment on above: Order Comment: Locat ion: Performed By: #### L AB129, PTI317, WKV266, LAB15, LAB18, LAB20 #### LEON SLOAN ([id number]) [facility] ([facility]) [address] [facility], [address] [place] [address] ALT [Catalytic activity/Vol] 56 U/L High 10-49 [facility] COPCP Comment on above: Order Comment: Locat ion: Performed By: #### L AB129, RIL662, WSD977, LAB15, LAB18, LAB20 #### LEON SLOAN ([id number]) [facility] ([facility]) [address] [facility], [address] [place] [address] AST [Catalytic activity/Vol] 68 U/L High <=34 [facility] COPCP Comment on above: Order Comment: Locat ion: Performed By: #### L AB129, MUM399, RHT833, LAB15, LAB18, LAB20 #### LEON SLOAN ([id number]) [facility] ([facility]) [address] [address] BILI (INDIRECT) 1.7 mg/dL High 0.0-1.1 [facility] COPCP Comment on above: Order Comment: Locat ion: Performed By: #### L AB129, EIP264, QOU763, LAB15, LAB18, LAB20 #### LEON SLOAN ([id number]) [facility] ([facility]) [address] [facility], [address] [address] Bilirubin [Mass/Vol] 3.0 mg/dL High 0.3-1.2 [facility] COPCP Comment on above: Order Comment: Locat ion: Performed By: #### L AB129, YJJ588, BNF095, LAB15, LAB18, LAB20 #### LEON SLOAN ([id number]) [facility] ([facility]) [address] [facility], [address] [place] [address] Bilirubin.direct [Mass/Vol] 1.3 mg/dL High <=0.4 [facility] COPCP Comment on above: Order Comment: Locat ion: Performed By: #### L AB129, AWL356, YLB312, LAB15, LAB18, LAB20 #### LEON SLOAN ([id number]) [facility] ([facility]) [address] [address] Protein [Mass/Vol] 6.6 g/dL Normal 5.7-8.2 [facility] Comment on above: Order Comment: Locat ion: Performed By: #### L AB129, MAX099, UEZ161, LAB15, LAB18, LAB20 #### LEON SLOAN ([id number]) [facility] ([facility]) [address] [address] [id number] 03-20-2024 HbA1c (Bld) [Mass fraction] 6.9 % High 0.0-5.6 [facility] COPCP Comment on above: Order Comment: Locat ion: Result Comment: Refe rence Interval: Normal: below 5.7% Prediabetes: 5.7% to 6.4% Diabetes: 6.5% or above Performed By: #### Kathleen AB90 #### LEON SLOAN ([id number]) [facility] ([facility]) [address] [place] [address] LIPID PANELon 03-20-2024 CHOL/HDL RATIO 5.0 High <=4.0 [facility] COPCP Comment on above: Order Comment: Locat ion: Performed By: #### L AB129, MHR232, BOF299, LAB15, LAB18, LAB20 #### LEON SLOAN ([id number]) [facility] ([facility]) [address] [address] Cholesterol [Mass/Vol] 134 mg/dL Normal <=200 [facility] COPCP Comment on above: Order Comment: Locat ion: Result Comment: Low- risk levels (desirable) < 200 mg/dL Moderate-risk levels (borderline) 200 to 239 mg/dL High-risk levels > or = 240 mg/dL Performed By: #### L AB129, DTL693, JRN497, LAB15, LAB18, LAB20 #### LEON SLOAN ([id number]) [facility] ([facility]) [address] [address] Cholesterol in HDL [Mass/Vol] 27 mg/dL Low >60 [facility] COPCP Comment on above: Order Comment: Locat ion: Performed By: #### L AB129, FIL443, QNO282, LAB15, LAB18, LAB20 #### LEON SLOAN ([id number]) [facility] ([facility]) [address] [facility], [address] [address] Cholesterol in LDL [Mass/Vol] 84 mg/dL Normal <=130 [facility] COPCP Comment on above: Order Comment: Locat ion: Performed By: #### L AB129, YYZ798, NUX040, LAB15, LAB18, LAB20 #### LEON SLOAN ([id number]) [facility] ([facility]) [address] [address] NON-HDL CHOL 107 Normal [facility] COPCP Comment on above: Order Comment: Locat ion: Result Comment: LDL and Non-HDL goal dependent upon individual risk Performed By: #### L AB129, WRL896, FZB091, LAB15, LAB18, LAB20 #### LEON SLOAN ([id number]) [facility] ([facility]) [address] [facility], [address] [address] Triglyceride [Mass/Vol] 114 mg/dL Normal <=150 [facility] COPCP Comment on above: Order Comment: Locat ion: Performed By: #### L AB129, RYO387, RJA229, LAB15, LAB18, LAB20 #### LEON SLOAN ([id number]) [facility] ([facility]) [address] [address] VLDL-CALC 22.8 mg/dl Normal 0-30 [facility] COPCP Comment on above: Order Comment: Locat ion: Performed By: #### L AB129, RNO632, XCH842, LAB15, LAB18, LAB20 #### LEON SLOAN ([id number]) [facility] ([facility]) [address] [address] MAGNESIUMon 03-20-2024 Magnesium [Mass/Vol] 1.7 mg/dL Normal 1.6-2.6 [facility] COPCP Comment on above: Order Comment: Locat ion: Performed By: #### L AB129, ECB351, AIQ967, LAB15, LAB18, LAB20 #### LEON SLOAN ([id number]) [facility] ([facility]) [address] [facility], [address] [place] [address] PHOSPHORUSon 03-20-2024 Phosphate [Mass/Vol] 2.9 mg/dL Normal 2.4-5.1 [facility] COPCP Comment on above: Order Comment: Locat ion: Performed By: #### L AB129, SCW905, JFJ390, LAB15, LAB18, LAB20 #### LEON SLOAN ([id number]) [facility] ([facility]) [address] [facility], [address] [address] SLIDE SCAN IF INDICATEDon COMMENT Normocytic/Normochromic Normal [facility] COPCP Comment on above: Order Comment: Locat ion: Performed By: #### Kathleen [id number], [id number] #### LEON SLOAN ([id number]) [facility] ([facility]) [address] [facility], [address] [place] [address] PLATELET ESTIMATE Decreased Abnormal Adequate [facility] COPCP Comment on above: Order Comment: Locat ion: Performed By: #### L [id number], [id number] #### LEON SLOAN ([id number]) [facility] ([facility]) [address] [facility] [address] [place] [address] TSHon 03-20-2024 TSH 0.879 MIU/mL Normal 0.550-4.78 0 [facility] COPCP Comment on above: Order Comment: Locat ion: Performed By: #### L AB129, JLW414, VWB076, LAB15, LAB18, LAB20 #### LEON SLOAN ([id number]) [facility] ([facility]) [address] [facility], [address] [place] [address] ABDOMEN PELVIS WO CONTRAS Ton 09-25-2023 [...] Self Edit Transcribed Date: 09/25/2023 02:17 Normal [facility] CT Pelvis limited WO contras ton [...] By: Self Edit Transcribed Date: 09/25/2023 02:17 [facility] EXAMIN[facility] TYPE: CT ABDOMEN PELVIS WO CONTRAST [...] are present in the lower lumbar spine. [facility] Tal Hadley M D - 09/25/2023 EXAMINATION [...] Hadley Reviewed and Electronically Signed By: Tal Hadely Signed Date: 09/25/2023 02:23 Workstation ID: [id number] Transcribed By: Self Edit Transcribed Date: 09/25/2023 02:17 [facility] Radiology Study observation (narrative) [facility] CT Pelvis limited WO contras tOrdered By: Tal Hadley on 09-25-2023 [employer] Work Phone: PT Coag (PPP) [Time]on 09-25 aPTT Coag (Bld) [Time] 34.7 s Normal 23.3-35.3 [facility] Comment on above: Order Comment: The r ecommended therapeutic INR range for most cardiac indications is 2.0-3.0 For high intensity therapy (i.e. mechanical heart valves), the recommended range is 2.5-3.5 Performed By: #### 5 902-2 #### [facility] [address] [place] [address] INR Coag (PPP) [Relative time] 1.5 {INR} NINF - 5.0 [employer] Interpretation and review of laboratory results Abnormal [employer] PT Coag (Bld) [Time] 17.6 s High [facility] The recommended therapeutic INR range for most cardiac indications is 2.0-3.0 For high intensity therapy (i.e. mechanical heart valves), the recommended range is 2.5-3.5 [employer] aPTT Coag (Bld) [Time]on aPTT Coag (PPP) [Time] 34.7 s Tr [facility] [employer] ([employer]) Interpretation and review of laboratory results Normal [employer] Basic metabolic 2000 panelon 09-24-2023 Anion gap [Moles/Vol] 6 mmol/L Normal 6-18 [facility] Comment on above: Performed By: #### 2 4321-2 #### [facility] [address] [place] [address] Calcium [Mass/Vol] 9.3 mg/dL Normal 8.9-10.3 [facility] Comment on above: Performed By: #### 2 4321-2 #### [facility] [address] [place] [address] Chloride [Moles/Vol] 101 mmol/L Normal 98-107 [facility] Comment on above: Performed By: #### 2 4321-2 #### [facility] [address] [place] [address] CO2 [Moles/Vol] 27 mmol/L Normal 22-32 [facility] Comment on above: Performed By: #### 2 4321-2 #### [facility] [address] [place] [address] Creatinine [Mass/Vol] 0.64 mg/dL Normal 0.60-1.30 [facility] Comment on above: Performed By: #### 2 4321-2 #### [facility] [address] [place] [address] GFR/1.73 sq M.predicted among non-blacks MDRD (S/P/Bld) [Vol rate/Area] 119 mL/min/{1.73_m2} Normal >=60 [facility] Comment on above: Result Comment: Calc ulation based on the?Chronic Kidney Disease Epidemiology Collaboration (CKD-EPI) equation refit?without adjustment for race. Performed By: #### 2 4321-2 #### [facility] [address] [place] [address] Glucose [Mass/Vol] 178 mg/dL High 70-99 [facility] Comment on above: Performed By: #### 2 4321-2 #### [facility] [address] [place] [address] Potassium [Moles/Vol] 4.0 mmol/L Normal 3.6-5.1 [facility] Comment on above: Performed By: #### 2 4321-2 #### [facility] [address] [place] [address] Sodium [Moles/Vol] 134 mmol/L Low 136-145 [facility] Comment on above: Performed By: #### 2 4321-2 #### [facility] [address] [place] [address] Urea nitrogen [Mass/Vol] 8 mg/dL Normal 8-20 [facility] Comment on above: Performed By: #### 2 4321-2 #### [facility] [address] [place] [address] Urea nitrogen/Creatinine [Mass ratio] 12.5 mg/mg Normal 12.0-20.0 [facility] Comment on above: Performed By: #### 2 4321-2 #### [facility] [address] [place] [address] Anion gap [Moles/Vol] 6 mmol/L 6 - 18 [facility] Calcium [Mass/Vol] 9.3 mg/dL 8.9 - 10. 3 mg/dL [facility] Chloride [Moles/Vol] 101 mmol/L 98 - 10 7 mmol/L [facility] CO2 [Moles/Vol] 27 mmol/L 22 - 32 mmol/L [facility] Creatinine [Mass/Vol] 0.64 mg/dL 0.60 - 1.30 mg/dL [facility] GFR/1.73 sq M.predicted among non-blacks MDRD (S/P/Bld) [Vol rate/Area] 119 mL/min/{1.73_m2} - PINF [facility] Comment on above: Calculation based on the Chronic Kidney Disease Epidemiology Collaboration (CKD-EPI) equation refit without adjustment for race. Glucose [Mass/Vol] 178 mg/dL High 70 - 99 mg/dL [facility] Interpretation and review of laboratory results Abnormal [facility] Potassium [Moles/Vol] 4.0 mmol/L 3.6 - 5.1 mmol/L [facility] Sodium [Moles/Vol] 134 mmol/L Low 136 - 145 mmol/L [facility] Urea nitrogen [Mass/Vol] 8 mg/dL 8 - 20 mg/dL [facility] Urea nitrogen/Creatinine [Mass ratio] 12.5 mg/mg 12.0 - 20.0 [facility] Hemogram and platelets WO di fferential panel (Bld)on 09-24-2023 Basophils (Bld) [#/Vol] 0.07 10*3/uL Normal 0.00-0.20 [facility] Comment on above: Performed By: #### 2 4317-0 #### [facility] [address] [place] [address] Basophils/100 WBC (Bld) 1.6 % Normal 0.0-2.0 [facility] Comment on above: Performed By: #### 2 4317-0 #### [facility] [address] [place] [address] Eosinophils (Bld) [#/Vol] 0.23 10*3/uL Normal 0.00-0.70 [facility] Comment on above: Performed By: #### 2 4317-0 #### [facility] [address] [place] [address] Eosinophils/100 WBC (Bld) 5.4 % Normal 0.0-7.0 [facility] Comment on above: Performed By: #### 2 4317-0 #### [facility] [address] [place] [address] Erythrocyte distribution width (RBC) [Ratio] 18.4 % High 11.0-14.8 [facility] Comment on above: Performed By: #### 2 4317-0 #### [facility] [address] [place] [address] Hematocrit (Bld) [Volume fraction] 38.5 % Low 39.0-49.0 [facility] Comment on above: Performed By: #### 2 4317-0 #### [facility] [address] [place] [address] Hemoglobin (Bld) [Mass/Vol] 12.7 g/dL Low 13.5-17.5 [facility] Comment on above: Performed By: #### 2 4317-0 #### [facility] [address] [place] [address] Immature granulocytes (Bld) [#/Vol] 0.01 10*3/uL Normal 0.00-0.10 [facility] Comment on above: Performed By: #### 2 4317-0 #### [facility] [address] [place] [address] Immature granulocytes/100 WBC (Bld) 0.2 % Normal 0.0-1.2 [facility] Comment on above: Performed By: #### 2 4317-0 #### [facility] [address] [place] [id number] Lymphocytes (Bld) [#/Vol] 1.14 10*3/uL Normal 1.00-4.80 [facility] Comment on above: Performed By: #### 2 4317-0 #### [facility] [address] [place] [address] Lymphocytes/100 WBC (Bld) 26.8 % Normal 17.9-49.6 [facility] Comment on above: Performed By: #### 2 4317-0 #### [facility] [address] [place] [address] MCH 28.9 pcg Normal 27.0-34.0 [facility] Comment on above: Performed By: #### 2 4317-0 #### [facility] [address] [place] [address] MCHC (RBC) [Mass/Vol] 33.0 g/dL Normal 30.8-35.3 [facility] Comment on above: Performed By: #### 2 4317-0 #### [facility] [address] [place] [address] MCV (RBC) [Entitic vol] 87.5 fL Normal 80.0-97.0 M [facility] [place] Comment on above: Performed By: #### 2 4317-0 #### [facility] [address] [place] [address] Monocytes (Bld) [#/Vol] 0.73 10*3/uL Normal 0.00-0.90 [facility] Comment on above: Performed By: #### 2 4317-0 #### [facility] [address] [place] [address] Monocytes/100 WBC (Bld) 17.1 % Normal 4.0-23.0 M [facility] [place] Comment on above: Performed By: #### 2 4317-0 #### [facility] [address] [place] [address] Neutrophils Absolute 2.08 K/mcL Normal 1.80-7.70 [facility] t [facility] Comment on above: Performed By: #### 2 4317-0 #### [facility] [address] [place] [address] Neutrophils/100 WBC (Bld) 48.9 % Normal 38.1-75.5 [facility] Comment on above: Performed By: #### 2 4317-0 #### [facility] [address] [place] [address] Platelet mean volume (Bld) [Entitic vol] 11.0 fL Normal 6.2-12.1 [facility] Comment on above: Performed By: #### 2 4317-0 #### [facility] [address] [place] [address] Platelets (Bld) [#/Vol] 85 10*3/uL Low 142-424 M [facility] [place] Comment on above: Result Comment: Resu lts confirmed by slide review. Performed By: #### 2 4317-0 #### [facility] [address] [place] [address] RBC (Bld) [#/Vol] 4.40 10*6/uL Normal 4.30-5.70 [facility] Comment on above: Performed By: #### 2 4317-0 #### [facility] [address] [place] [address] WBC (Bld) [#/Vol] 4.3 10*3/uL Low 4.6-10.2 [facility] Comment on above: Performed By: #### 2 4317-0 #### [facility] [address] [place] [address] Hemogram and platelets WO di fferential panel [...] Immature granulocytes (Bld) [#/Vol] 0.01 10*3/uL [facility] Immature granulocytes/100 WBC (Bld) 0.2 % 0.0 - 1.2 % [facility] Interpretation and review of laboratory results Abnormal [facility] Lymphocytes (Bld) [#/Vol] 1.14 10*3/uL [facility] Lymphocytes/100 WBC (Bld) 26.8 % 17.9 - 49.6 % [facility] MCH (RBC) [Entitic mass] 28.9 pg [facility] MCHC (RBC) [Mass/Vol] 33.0 g/dL 30.8 - 35.3 g/dL [facility] MCV (RBC) [Entitic vol] 87.5 fL T [facility] Monocytes (Bld) [#/Vol] 0.73 10*3/uL [facility] Monocytes/100 WBC (Bld) 17.1 % 4.0 - 23.0 % [facility] Neutrophils (Bld) [#/Vol] 2.08 10*3/uL [facility] Neutrophils/100 WBC (Bld) 48.9 % 38.1 - 75.5 % [facility] Platelet mean volume (Bld) [Entitic vol] 11.0 fL [facility] th Platelets (Bld) [#/Vol] 85 10*3/uL Low [facility] Comment on above: Results confirmed by slide review. RBC (Bld) [#/Vol] 4.40 10*6/uL [facility] WBC (Bld) [#/Vol] 4.3 10*3/uL [facility] Laboratory - Specimen inform ationon 09-24-2023 Specimen source Nom (Unsp spec) Hold for add-ons. [facility] Comment on above: Auto resulted. No Panel Informationon 09-24 [facility] Urinalysis dipstick W Reflex Microscopic panel (U)on 09-24-2023 Bacteria, Urine Rare Abnormal None [facility] Comment on above: Performed By: #### 5 7020-0 #### [facility] [address] [place] [address] Bilirubin, Urine Negative Normal Negative [facility] Comment on above: Performed By: #### 5 7020-0 #### [facility] [address] [place] [address] Blood, Urine 3+ Abnormal Negative, Trace [facility] Comment on above: Performed By: #### 5 20-0 #### [facility] [address] [place] [address] Clarity (U) Clear Normal Clear [facility] Comment on above: Performed By: #### 5 20-0 #### [facility] [address] [place] [address] Color (U) Colorless Abnormal Yellow [facility] Comment on above: Performed By: #### 5 20-0 #### [facility] [address] [place] [address] Glucose Ql (U) >1000 Abnormal Normal [facility] Comment on above: Performed By: #### 5 20-0 #### [facility] [address] [place] [address] Ketones Ql (U) Negative Normal Negative [facility] Comment on above: Performed By: #### 5 7019-0 #### [facility] [address] [place] [address] Leukocytes, Urine Negative Normal Negative [facility] Comment on above: Performed By: #### 5 20-0 #### [facility] [address] [place] [address] Nitrite, Urine Negative Normal Negative [facility] Comment on above: Performed By: #### 5 20-0 #### [facility] [address] [place] [address] pH (U) 6.5 [pH] Normal 5.0-8.0 [facility] Comment on above: Performed By: #### 5 20-0 #### [facility] [address] [place] [address] Protein, Urine Negative Normal Negative [facility] Comment on above: Performed By: #### 5 7020-0 #### [facility] [address] [place] [address] RBC LM.HPF (Urine sed) [#/Area] 247 /[HPF] High 0-5 [facility] Comment on above: Performed By: #### 5 7020-0 #### [facility] [address] [place] [address] Specific [place] Urine 1.010 Normal 1.002 -1.03 0 [facility] Comment on above: Performed By: #### 5 7020-0 #### [facility] [address] [place] [address] Urobilinogen, Urine Normal Normal Normal [facility] Comment on above: Performed By: #### 5 7020-0 #### [facility] [address] [place] [address] WBC LM.HPF (Urine sed) [#/Area] /[HPF] Normal 0-5 [facility] Comment on above: Performed By: #### 5 7020-0 #### [facility] [address] [place] [address] Bacteria LM.HPF (Urine sed) [#/Area] Rare Abnormal None /HPF [facility] Bilirubin Ql (U) Negative Negative mg/dL [facility] Clarity (U) Clear Clear [facility] Color (U) Colorless Abnormal Yellow [facility] Glucose Ql (U) >1000 Abnormal Normal mg/dL [facility] Hemoglobin Ql (U) 3+ Abnormal Negative, Trace [facility] Interpretation and review of laboratory results Abnormal [facility] Ketones (U) [Mass/Vol] Negative Negat fabricio mg/dL [facility] Leukocyte esterase Test strip Ql (U) Negative Negative WBCs/mcL [facility] Nitrite Ql (U) Negative Negative [facility] pH (U) 6.5 [pH] 5.0 - 8.0 pH [facility] Protein (U) [Mass/Vol] Negative Negat fabricio mg/dL [facility] RBC LM.HPF (Urine sed) [#/Area] 247 /[HPF] High [facility] Specific gravity (U) [Rel density] 1.010 1.002 - 1.030 [facility] Urobilinogen (U) [Mass/Vol] Normal Normal mg/dL [facility] WBC LM.HPF (Urine sed) [#/Area] [facility] Basic Metabolic Panel (COPC) on 08-03-2023 Creatinine [Mass/Vol] 0.59 mg/dL Low 0.76-1.27 [facility] Comment on above: Order Comment: Testi ng performed at: [] [facility], [address] [place] [address], [phone], , Senior Enlisted Advisor: Tres Cm, PhD Performed By: #### C 121, C301, C406, C4176, C116, C48, C8, C45, C400, C115 #### Refer to report for performing lab GFR/1.73 sq M.predicted among non-blacks MDRD (S/P/Bld) [Vol rate/Area] 122 mL/min/{1.73_m2} Invalid Interpretation Code >59 [facility] Comment on above: Order Comment: Testi ng performed at: [] [facility], [address] [place] [address], [address], , Senior Enlisted Advisor: Tres Cm, PhD Performed By: #### C 121, C301, C406, C4176, C116, C48, C8, C45, C400, C115 #### Refer to report for performing lab Urea nitrogen/Creatinine [Mass ratio] 15 mg/mg Invalid Interpretation Code 9-20 [facility] Comment on above: Order Comment: Testi ng performed at: [] [facility], [address] [place] [address], [phone], , Senior Enlisted Advisor: Tres Cm, PhD Performed By: #### C 121, C301, C406, C4176, C116, C48, C8, C45, C400, C115 #### Refer to report for performing lab Potassium [Moles/Vol] 3.9 mmol/L Invalid Interpretation Code 3.5-5.2 [facility] Comment on above: Order Comment: Testi ng performed at: [] [facility], [address] [place] [address], [phone], , Senior Enlisted Advisor: Tres Cm, PhD Performed By: #### C 121, C301, C406, C4176, C116, C48, C8, C45, C400, C115 #### Refer to report for performing lab Chloride [Moles/Vol] 101 mmol/L Invalid Interpretation Code 96-106 [facility] Comment on above: Order Comment: Testi ng performed at: [] [facility], [address] [place] [address], [address], , Senior Enlisted Advisor: Tres Cm, PhD Performed By: #### C 121, C301, C406, C4176, C116, C48, C8, C45, C400, C115 #### Refer to report for performing lab Sodium [Moles/Vol] 136 mmol/L Invalid Interpretation Code 134-144 [facility] Comment on above: Order Comment: Testi ng performed at: [] [facility], [address] [place] [address], [address], , Senior Enlisted Advisor: Tres Cm, PhD Performed By: #### C 121, C301, C406, C4176, C116, C48, C8, C45, C400, C115 #### Refer to report for performing lab Urea nitrogen [Mass/Vol] 9 mg/dL Invalid Interpretation Code 6-24 [facility] Comment on above: Order Comment: Testi ng performed at: [] [facility], [address] [place] [address], [address], , Senior Enlisted Advisor: Tres Cm, PhD Performed By: #### C 121, C301, C406, C4176, C116, C48, C8, C45, C400, C115 #### Refer to report for performing lab Calcium [Mass/Vol] 9.0 mg/dL Invalid Interpretation Code 8.7-10.2 [facility] Comment on above: Order Comment: Testi ng performed at: [] [facility], [address] [place] [address], [address], , Senior Enlisted Advisor: Tres Cm, PhD Performed By: #### C 121, C301, C406, C4176, C116, C48, C8, C45, C400, C115 #### Refer to report for performing lab CO2 [Moles/Vol] 22 mmol/L Invalid Interpretation Code [facility] Comment on above: Order Comment: Testi ng performed at: [] [facility], [address] [place] [address], [address], , Senior Enlisted Advisor: Tres Cm, PhD Performed By: #### C 121, C301, C406, C4176, C116, C48, C8, C45, C400, C115 #### Refer to report for performing lab Glucose [Mass/Vol] 98 mg/dL Invalid Interpretation Code 70-99 [facility] Comment on above: Order Comment: Testi ng performed at: [] [facility], [address] [place] [address], [phone], , Senior Enlisted Advisor: Tres Cm, PhD Performed By: #### C 121, C301, C406, C4176, C116, C48, C8, C45, C400, C115 #### Refer to report for performing lab CBC with Diffon 08-03-2023 Basophils (Bld) [#/Vol] 0.1 10*3/uL Invalid Interpretation Code 0.0-0.2 [facility] Comment on above: Order Comment: Testi ng performed at: [] [facility], [address] [place] [address], [address], , Senior Enlisted Advisor: Tres Cm, PhD Performed By: #### C 121, C301, C406, C4176, C116, C48, C8, C45, C400, C115 #### Refer to report for performing lab Basophils/100 WBC (Bld) 2 % Invalid Interpretation Code Not Estab. [facility] Comment on above: Order Comment: Testi ng performed at: [] [facility], [address] [place] [address], [address], , Senior Enlisted Advisor: Tres Cm, PhD Performed By: #### C 121, C301, C406, C4176, C116, C48, C8, C45, C400, C115 #### Refer to report for performing lab Eosinophils (Bld) [#/Vol] 0.5 10*3/uL High 0.0-0.4 [facility] Comment on above: Order Comment: Testi ng performed at: [] [address], [phone], , Senior Enlisted Advisor: Tres Cm, PhD Performed By: #### C 121, C301, C406, C4176, C116, C48, C8, C45, C400, C115 #### Refer to report for performing lab Eosinophils/100 WBC (Bld) 10 % Invalid Interpretation Code Not Estab. [facility] Comment on above: Order Comment: Testi ng performed at: [] [facility], [address] [place] [address], [phone], , Senior Enlisted Advisor: Tres Cm, PhD Performed By: #### C 121, C301, C406, C4176, C116, C48, C8, C45, C400, C115 #### Refer to report for performing lab Erythrocyte distribution width (RBC) [Ratio] 15.5 % High 11.6-15.4 [facility] Comment on above: Order Comment: Testi ng performed at: [] [facility], [address] [place] [address], [address], , Senior Enlisted Advisor: Tres Cm, PhD Performed By: #### C 121, C301, C406, C4176, C116, C48, C8, C45, C400, C115 #### Refer to report for performing lab Hematocrit (Bld) [Volume fraction] 36.2 % Low 37.5-51.0 [facility] Comment on above: Order Comment: Testi ng performed at: [] [address], [address], , Senior Enlisted Advisor: Tres Cm, PhD Performed By: #### C 121, C301, C406, C4176, C116, C48, C8, C45, C400, C115 #### Refer to report for performing lab Hematology Comments: Note: Invalid Interpretation Code [facility] Comment on above: Order Comment: Testi ng performed at: [] [address], [address], , Senior Enlisted Advisor: Tres Cm, PhD Result Comment: Veri fied by microscopic examination. A hand-written panel/profile was received from your office. In accordance with the [facility] Ambiguous Test Code Policy dated May 2003, we have assigned CBC with Differential/Platelet, Test Code #[id number] to this request. If this is not the testing you wished to receive on this specimen, please contact the [facility] Client Inquiry/ Technical Services Department to clarify the test order. We appreciate your business. Performed By: #### C 121, C301, C406, C4176, C116, C48, C8, C45, C400, C115 #### Refer to report for performing lab Hemoglobin (Bld) [Mass/Vol] 11.8 g/dL Low 13.0-17.7 [facility] Comment on above: Order Comment: Testi ng performed at: [] [facility], [address] [place] [address], [address], , Senior Enlisted Advisor: Tres Cm, PhD Performed By: #### C 121, C301, C406, C4176, C116, C48, C8, C45, C400, C115 #### Refer to report for performing lab Immature Grans (Abs) 0.0 x10E3/uL Invalid Interpretation Code 0.0-0.1 [facility] Comment on above: Order Comment: Testi ng performed at: [] [facility], [address] [place] [address], [address], , Senior Enlisted Advisor: Tres Cm, PhD Performed By: #### C 121, C301, C406, C4176, C116, C48, C8, C45, C400, C115 #### Refer to report for performing lab Immature granulocytes/100 WBC (Bld) 0 % Invalid Interpretation Code Not Estab. [facility] Comment on above: Order Comment: Testi ng performed at: [] [facility], [address] [place] [address], [address], , Senior Enlisted Advisor: Tres Cm, PhD Performed By: #### C 121, C301, C406, C4176, C116, C48, C8, C45, C400, C115 #### Refer to report for performing lab Lymphocytes (Bld) [#/Vol] 1.1 10*3/uL Invalid Interpretation Code 0.7-3.1 [facility] Comment on above: Order Comment: Testi ng performed at: [] [facility], [address] [place] [address], [address], , Senior Enlisted Advisor: Tres Cm, PhD Performed By: #### C 121, C301, C406, C4176, C116, C48, C8, C45, C400, C115 #### Refer to report for performing lab Lymphocytes/100 WBC (Bld) 23 % Invalid Interpretation Code Not Estab. [facility] Comment on above: Order Comment: Testi ng performed at: [] [facility], [address] [place] [address], [address], , Senior Enlisted Advisor: Tres Cm, PhD Performed By: #### C 121, C301, C406, C4176, C116, C48, C8, C45, C400, C115 #### Refer to report for performing lab MCH (RBC) [Entitic mass] 27.8 pg Invalid Interpretation Code 26.6-33.0 [facility] Comment on above: Order Comment: Testi ng performed at: [] [address], [address], , Senior Enlisted Advisor: Tres Cm, PhD Performed By: #### C 121, C301, C406, C4176, C116, C48, C8, C45, C400, C115 #### Refer to report for performing lab MCHC (RBC) [Mass/Vol] 32.6 g/dL Invalid Interpretation Code 31.5-35.7 [facility] Comment on above: Order Comment: Testi ng performed at: [] [address], [address], , Senior Enlisted Advisor: Tres Cm, PhD Performed By: #### C 121, C301, C406, C4176, C116, C48, C8, C45, C400, C115 #### Refer to report for performing lab MCV (RBC) [Entitic vol] 85 fL Invalid Interpretation Code 79-97 [facility] Comment on above: Order Comment: Testi ng performed at: [] [address], [address], , Senior Enlisted Advisor: Tres Cm, PhD Performed By: #### C 121, C301, C406, C4176, C116, C48, C8, C45, C400, C115 #### Refer to report for performing lab Monocytes (Bld) [#/Vol] 0.7 10*3/uL Invalid Interpretation Code 0.1-0.9 [facility] Comment on above: Order Comment: Testi ng performed at: [] [facility], [address] [place] [address], [address], , Senior Enlisted Advisor: Tres Cm, PhD Performed By: #### C 121, C301, C406, C4176, C116, C48, C8, C45, C400, C115 #### Refer to report for performing lab Monocytes/100 WBC (Bld) 15 % Invalid Interpretation Code Not Estab. [facility] Comment on above: Order Comment: Testi ng performed at: [] [facility], [address] [place] [address], [address], , Senior Enlisted Advisor: Tres Cm, PhD Performed By: #### C 121, C301, C406, C4176, C116, C48, C8, C45, C400, C115 #### Refer to report for performing lab Neutrophils (Absolute) 2.4 x10E3/uL Invalid Interpretation Code 1.4-7.0 [facility] Comment on above: Order Comment: Testi ng performed at: [] [facility], [address], , Senior Enlisted Advisor: Tres Cm, PhD Performed By: #### C 121, C301, C406, C4176, C116, C48, C8, C45, C400, C115 #### Refer to report for performing lab Neutrophils/100 WBC (Bld) 50 % Invalid Interpretation Code Not Estab. [facility] Comment on above: Order Comment: Testi ng performed at: [] [facility], [address] [place] [address], [address], , Senior Enlisted Advisor: Tres Cm, PhD Performed By: #### C 121, C301, C406, C4176, C116, C48, C8, C45, C400, C115 #### Refer to report for performing lab Platelets (Bld) [#/Vol] 83 10*3/uL Critically low 150-450 [facility] Comment on above: Order Comment: Testi ng performed at: [] [facility], [address] [place] [address], [address], , Senior Enlisted Advisor: Tres Cm, PhD Result Comment: Plat elet count verified by examination of peripheral blood smear. Performed By: #### C 121, C301, C406, C4176, C116, C48, C8, C45, C400, C115 #### Refer to report for performing lab RBC (Bld) [#/Vol] 4.25 10*6/uL Invalid Interpretation Code 4.14-5.80 [facility] Comment on above: Order Comment: Testi ng performed at: [] [facility], [address] [place] [address], [address], , Senior Enlisted Advisor: Tres Cm, PhD Performed By: #### C 121, C301, C406, C4176, C116, C48, C8, C45, C400, C115 #### Refer to report for performing lab WBC (Bld) [#/Vol] 4.8 10*3/uL Invalid Interpretation Code 3.4-10.8 [facility] Comment on above: Order Comment: Testi ng performed at: [] [facility], [address] [place] [address], [address], , Senior Enlisted Advisor: Tres Cm, PhD Performed By: #### C 121, C301, C406, C4176, C116, C48, C8, C45, C400, C115 #### Refer to report for performing lab Hepatic Panel (COPC)on 08-03 Bilirubin.indirect [Mass/Vol] 0.67 mg/dL High 0.00-0.40 [facility] Comment on above: Order Comment: Testi ng performed at: [] [facility], [address] [place] [address], [address], , Senior Enlisted Advisor: Tres Cm, PhD Performed By: #### C 121, C301, C406, C4176, C116, C48, C8, C45, C400, C115 #### Refer to report for performing lab ALT [Catalytic activity/Vol] 39 U/L Invalid Interpretation Code 0-44 [facility] Comment on above: Order Comment: Testi ng performed at: [] [address], [address], , Senior Enlisted Advisor: Tres Cm, PhD Performed By: #### C 121, C301, C406, C4176, C116, C48, C8, C45, C400, C115 #### Refer to report for performing lab AST [Catalytic activity/Vol] 66 U/L High 0-40 [facility] Comment on above: Order Comment: Testi ng performed at: [] [address], [address], , Senior Enlisted Advisor: Tres Cm, PhD Performed By: #### C 121, C301, C406, C4176, C116, C48, C8, C45, C400, C115 #### Refer to report for performing lab Albumin [Mass/Vol] 3.0 g/dL Low 4.1-5.1 [facility] Comment on above: Order Comment: Testi ng performed at: [] [facility], [address] [place] [address], [address], , Senior Enlisted Advisor: Tres Cm, PhD Performed By: #### C 121, C301, C406, C4176, C116, C48, C8, C45, C400, C115 #### Refer to report for performing lab ALP [Catalytic activity/Vol] 143 U/L High 44-121 [facility] Comment on above: Order Comment: Testi ng performed at: [] [facility], [address] [place] [address], [address], , Senior Enlisted Advisor: Tres Cm, PhD Performed By: #### C 121, C301, C406, C4176, C116, C48, C8, C45, C400, C115 #### Refer to report for performing lab Bilirubin [Mass/Vol] 1.8 mg/dL High 0.0-1.2 [facility] Comment on above: Order Comment: Testi ng performed at: [] [facility], [address] [place] [address], [address], , Senior Enlisted Advisor: Tres Cm, PhD Performed By: #### C 121, C301, C406, C4176, C116, C48, C8, C45, C400, C115 #### Refer to report for performing lab Protein [Mass/Vol] 7.0 g/dL Invalid Interpretation Code 6.0-8.5 [facility] Comment on above: Order Comment: Testi ng performed at: [] [facility], [address] [place] [address], [address], , Senior Enlisted Advisor: Tres Cm, PhD Performed By: #### C 121, C301, C406, C4176, C116, C48, C8, C45, C400, C115 #### Refer to report for performing lab HgbA1C (COPC)on 08-03-2023 HbA1c (Bld) [Mass fraction] 6.6 % High 4.8-5.6 [facility] Comment on above: Order Comment: Testi ng performed at: [] [facility], [address] [place] [address], [address], , Senior Enlisted Advisor: Tres Cm, PhD Result Comment: Pred iabetes: [...] Testi ng performed at: [] [facility], [address] [place] [address], [address], , Senior Enlisted Advisor: Tres Cm, PhD Performed By: #### C 121, C301, C406, C4176, C116, C48, C8, C45, C400, C115 #### Refer to report for performing lab LDL Chol Calc (NIH) 120 mg/dL High 0-99 [facility] Comment on above: Order Comment: Testi ng performed at: [] [facility], [address] [place] [address], [address], , Senior Enlisted Advisor: Tres Cm, PhD Performed By: #### C 121, C301, C406, C4176, C116, C48, C8, C45, C400, C115 #### Refer to report for performing lab VLDL Cholesterol Elliott 29 mg/dL Invalid Interpretation Code 5-40 [facility] Comment on above: Order Comment: Testi ng performed at: [] [facility], [address] [place] [address], [address], , Senior Enlisted Advisor: Tres Cm, PhD Performed By: #### C 121, C301, C406, C4176, C116, C48, C8, C45, C400, C115 #### Refer to report for performing lab Cholesterol [Mass/Vol] 186 mg/dL Invalid Interpretation Code 100-199 [facility] Comment on above: Order Comment: Testi ng performed at: [] [facility], [address] [place] [address], [address], , Senior Enlisted Advisor: Tres Cm, PhD Performed By: #### C 121, C301, C406, C4176, C116, C48, C8, C45, C400, C115 #### Refer to report for performing lab Triglyceride [Mass/Vol] 164 mg/dL High 0-149 [facility] Comment on above: Order Comment: Testi ng performed at: [] [facility], [address] [place] [address], [address], , Senior Enlisted Advisor: Tres Cm, PhD Performed By: #### C 121, C301, C406, C4176, C116, C48, C8, C45, C400, C115 #### Refer to report for performing lab Magnesium (COPC)on 3 Magnesium [Mass/Vol] 1.9 mg/dL Invalid Interpretation Code 1.6-2.3 [facility] Comment on above: Order Comment: Testi ng performed at: [] [facility], [address] [place] [address], [address], , Senior Enlisted Advisor: Tres Cm, PhD Performed By: #### C 121, C301, C406, C4176, C116, C48, C8, C45, C400, C115 #### Refer to report for performing lab Phosphorus (COPC)on 08-03-20 23 Phosphate [Mass/Vol] 3.4 mg/dL Invalid Interpretation Code 2.8-4.1 [facility] Comment on above: Order Comment: Testi ng performed at: [] [facility], [address] [place] [address], [address], , Senior Enlisted Advisor: Tres Cm, PhD Performed By: #### C 121, C301, C406, C4176, C116, C48, C8, C45, C400, C115 #### Refer to report for performing lab TSH (COPC)on 08-03-2023 TSH 1.580 uIU/mL Invalid Interpretation Code 0.450-4.50 0 [facility] Comment on above: Order Comment: Testi ng performed at: [] [facility], [address] [place], [address], , Senior Enlisted Advisor: Tres Cm, PhD Performed By: #### C 121, C301, C406, C4176, C116, C48, C8, C45, C400, C115 #### Refer to report for performing lab Uric Acid (COPC)on 3 Urate [Mass/Vol] 3.7 mg/dL Low 3.8-8.4 [facility] Comment on above: Order Comment: Testi ng performed at: [] [facility], [address] [place] [address], [address], , Senior Enlisted Advisor: Tres Cm, PhD Result Comment: Ther apeutic target for gout patients: <6.0 Performed By: #### C 121, C301, C406, C4176, C116, C48, C8, C45, C400, C115 #### Refer to report for performing lab Urinalysis and Microscopic w / Rfx to Cx ([facility])on 08-03-2023 Bacteria None seen Invalid Interpretation Code None seen/Few [facility] Comment on above: Order Comment: Testi ng performed at: [] [facility], [address] [place] [address], [address], , Senior Enlisted Advisor: Tres Cm, PhD Performed By: #### C 121, C301, C406, C4176, C116, C48, C8, C45, C400, C115 #### Refer to report for performing lab Casts None seen Invalid Interpretation Code None seen [facility] Comment on above: Order Comment: Testi ng performed at: [] [facility], [address] [place] [address], [address], , Senior Enlisted Advisor: Tres Cm, PhD Performed By: #### C 121, C301, C406, C4176, C116, C48, C8, C45, C400, C115 #### Refer to report for performing lab Epithelial cells LM Ql (Urine sed) None seen Invalid Interpretation Code 0 - 10 [facility] Comment on above: Order Comment: Testi ng performed at: [] [facility], [address] [place] [address], [address], , Senior Enlisted Advisor: Tres Cm, PhD Performed By: #### C 121, C301, C406, C4176, C116, C48, C8, C45, C400, C115 #### Refer to report for performing lab RBC 0-2 Invalid Interpretation Code 0 - 2 [facility] Comment on above: Order Comment: Testi ng performed at: [] [facility], [address] [place] [address], [address], , Senior Enlisted Advisor: Tres Cm, PhD Performed By: #### C 121, C301, C406, C4176, C116, C48, C8, C45, C400, C115 #### Refer to report for performing lab WBC None seen Invalid Interpretation Code 0 - 5 [facility] Comment on above: Order Comment: Testi ng performed at: [] [facility], [address] [place] [address], [address], , Senior Enlisted Advisor: Tres Cm, PhD Performed By: #### C 121, C301, C406, C4176, C116, C48, C8, C45, C400, C115 #### Refer to report for performing lab Appearance (U) Clear Invalid Interpretation Code Clear [facility] Comment on above: Order Comment: Testi ng performed at: [] [facility], [address] [place] [address], [address], , Senior Enlisted Advisor: Tres Cm, PhD Performed By: #### C 121, C301, C406, C4176, C116, C48, C8, C45, C400, C115 #### Refer to report for performing lab Bilirubin Ql (U) Negative Invalid Interpretation Code Negative [facility] Comment on above: Order Comment: Testi ng performed at: [] [facility], [address] [place] [address], [address], , Senior Enlisted Advisor: Tres Cm, PhD Performed By: #### C 121, C301, C406, C4176, C116, C48, C8, C45, C400, C115 #### Refer to report for performing lab Color (U) Yellow Invalid Interpretation Code Yellow [facility] Comment on above: Order Comment: Testi ng performed at: [] [facility], [address] [place] [address], [address], , Senior Enlisted Advisor: Tres Cm, PhD Performed By: #### C 121, C301, C406, C4176, C116, C48, C8, C45, C400, C115 #### Refer to report for performing lab Glucose Ql (U) 3+ Abnormal Negative [facility] Comment on above: Order Comment: Testi ng performed at: [] [facility], [address] [place] [address], [address], , Senior Enlisted Advisor: Tres Cm, PhD Performed By: #### C 121, C301, C406, C4176, C116, C48, C8, C45, C400, C115 #### Refer to report for performing lab Ketones Ql (U) Negative Invalid Interpretation Code Negative [facility] Comment on above: Order Comment: Testi ng performed at: [] [facility], [address] [place] [address], [address], , Senior Enlisted Advisor: Tres Cm, PhD Performed By: #### C 121, C301, C406, C4176, C116, C48, C8, C45, C400, C115 #### Refer to report for performing lab Microscopic Examination See below: Invalid Interpretation Code [facility] Comment on above: Order Comment: Testi ng performed at: [] [facility], [address] [place] [address], [address], , Senior Enlisted Advisor: Tres Cm, PhD Result Comment: Micr oscopic was indicated and was performed. Performed By: #### C 121, C301, C406, C4176, C116, C48, C8, C45, C400, C115 #### Refer to report for performing lab Nitrite, Urine Negative Invalid Interpretation Code Negative [facility] Comment on above: Order Comment: Testi ng performed at: [] [facility], [address] [place] [address], [address], , Senior Enlisted Advisor: Tres Cm, PhD Performed By: #### C 121, C301, C406, C4176, C116, C48, C8, C45, C400, C115 #### Refer to report for performing lab Occult Blood Negative Invalid Interpretation Code Negative [facility] Comment on above: Order Comment: Testi ng performed at: [] [facility], [address] [place] [address], [address], , Senior Enlisted Advisor: Tres Cm, PhD Performed By: #### C 121, C301, C406, C4176, C116, C48, C8, C45, C400, C115 #### Refer to report for performing lab pH (U) 6.5 [pH] Invalid Interpretation Code 5.0-7.5 [facility] Comment on above: Order Comment: Testi ng performed at: [] [facility], [address] [place] [address], [phone], , Senior Enlisted Advisor: Tres Cm, PhD Performed By: #### C 121, C301, C406, C4176, C116, C48, C8, C45, C400, C115 #### Refer to report for performing lab Protein Ql (U) Negative Invalid Interpretation Code Negative/T race [facility] Comment on above: Order Comment: Testi ng performed at: [] [facility], [address] [place] [address], [address], , Senior Enlisted Advisor: Tres Cm, PhD Performed By: #### C 121, C301, C406, C4176, C116, C48, C8, C45, C400, C115 #### Refer to report for performing lab Specific gravity (U) [Rel density] 1.013 Invalid Interpretation Code 1.005-1.03 0 [facility] Comment on above: Order Comment: Testi ng performed at: [] [facility], [address] [place], [address], , Senior Enlisted Advisor: Tres Cm, PhD Performed By: #### C 121, C301, C406, C4176, C116, C48, C8, C45, C400, C115 #### Refer to report for performing lab Urobilinogen,Semi-Qn 0.2 mg/dL Invalid Interpretation Code 0.2-1.0 [facility] Comment on above: Order Comment: Testi ng performed at: [] [facility], [address] [place], [address], , Senior Enlisted Advisor: Tres Cm, PhD Performed By: #### C 121, C301, C406, C4176, C116, C48, C8, C45, C400, C115 #### Refer to report for performing lab WBC Esterase Negative Invalid Interpretation Code Negative [facility] Comment on above: Order Comment: Testi ng performed at: [] [facility], [address] [place], [address], , Senior Enlisted Advisor: Tres Cm, PhD Performed By: #### C 121, C301, C406, C4176, C116, C48, C8, C45, C400, C115 #### Refer to report for performing lab Urinalysis and Microscopic w / Rfx to Cx ([facility])on 08-02-2023 Microscopic Examination Comment Normal [facility] Comment on above: Order Comment: Testi ng performed at: [] [facility], [address] [facility], [place], [address], , Senior Enlisted Advisor: Tres Cm, PhD Result Comment: Micr oscopic follows if indicated. Performed By: #### C 121, C301, C406, C4176, C116, C48, C8, C45, C400, C115 #### Refer to report for performing lab Urinalysis Reflex Comment Normal [facility] Comment on above: Order Comment: Testi ng performed at: [] [facility], [address] [facility], [place], [address], , Senior Enlisted Advisor: Tres Cm, PhD Result Comment: This specimen will not reflex to a Urine Culture. Performed By: #### C 121, C301, C406, C4176, C116, C48, C8, C45, C400, C115 #### Refer to report for performing lab Basic Metabolic Panel (COPC) on 04-05-2023 Creatinine [Mass/Vol] 0.65 mg/dL Low 0.76-1.27 [facility] Comment on above: Order Comment: Testi ng performed at: [] [facility], [address] [place] [address], [address], , Senior Enlisted Advisor: Tres Cm, PhD Performed By: #### C 121, C301, C406, C4176, C116, C48, C8, C45, C400, C115 #### Refer to report for performing lab GFR/1.73 sq M.predicted among non-blacks MDRD (S/P/Bld) [Vol rate/Area] 119 mL/min/{1.73_m2} Invalid Interpretation Code >59 [facility] Comment on above: Order Comment: Testi ng performed at: [] [facility], [address] [place], [address], , Senior Enlisted Advisor: Tres Cm, PhD Performed By: #### C 121, C301, C406, C4176, C116, C48, C8, C45, C400, C115 #### Refer to report for performing lab Urea nitrogen/Creatinine [Mass ratio] 9 mg/mg Invalid Interpretation Code 9-20 [facility] Comment on above: Order Comment: Testi ng performed at: [] [facility], [address] [place], [address], , Senior Enlisted Advisor: Tres Cm, PhD Performed By: #### C 121, C301, C406, C4176, C116, C48, C8, C45, C400, C115 #### Refer to report for performing lab Calcium [Mass/Vol] 8.6 mg/dL Low 8.7-10.2 [facility] Comment on above: Order Comment: Testi ng performed at: [] [facility], [address] [place] [address], [address], , Senior Enlisted Advisor: Tres Cm, PhD Performed By: #### C 121, C301, C406, C4176, C116, C48, C8, C45, C400, C115 #### Refer to report for performing lab CO2 [Moles/Vol] 25 mmol/L Invalid Interpretation Code [facility] Comment on above: Order Comment: Testi ng performed at: [] [facility], [address] [place] [address], [address], , Senior Enlisted Advisor: Tres Cm, PhD Performed By: #### C 121, C301, C406, C4176, C116, C48, C8, C45, C400, C115 #### Refer to report for performing lab Urea nitrogen [Mass/Vol] 6 mg/dL Invalid Interpretation Code 05-07 [facility] Comment on above: Order Comment: Testi ng performed at: [] [facility], [address] [place] [address], [address], , Senior Enlisted Advisor: Tres Cm, PhD Performed By: #### C 121, C301, C406, C4176, C116, C48, C8, C45, C400, C115 #### Refer to report for performing lab Glucose [Mass/Vol] 107 mg/dL High 70-99 [facility] Comment on above: Order Comment: Testi ng performed at: [] [facility], [address] [place] [address], [address], , Senior Enlisted Advisor: Tres Cm, PhD Performed By: #### C 121, C301, C406, C4176, C116, C48, C8, C45, C400, C115 #### Refer to report for performing lab Potassium [Moles/Vol] 3.9 mmol/L Invalid Interpretation Code 3.5-5.2 [facility] Comment on above: Order Comment: Testi ng performed at: [] [facility], [address] [place] [address], [address], , Senior Enlisted Advisor: Tres Cm, PhD Performed By: #### C 121, C301, C406, C4176, C116, C48, C8, C45, C400, C115 #### Refer to report for performing lab Chloride [Moles/Vol] 102 mmol/L Invalid Interpretation Code 96-106 [facility] Comment on above: Order Comment: Testi ng performed at: [] [facility], [address] [place] [address], [address], , Senior Enlisted Advisor: Tres Cm, PhD Performed By: #### C 121, C301, C406, C4176, C116, C48, C8, C45, C400, C115 #### Refer to report for performing lab Sodium [Moles/Vol] 137 mmol/L Invalid Interpretation Code 134-144 [facility] Comment on above: Order Comment: Testi ng performed at: [] [facility], [address] [place] [address], [address], , Senior Enlisted Advisor: Tres Cm, PhD Performed By: #### C 121, C301, C406, C4176, C116, C48, C8, C45, C400, C115 #### Refer to report for performing lab CBC with differential (COPC) on 04-05-2023 Basophils (Bld) [#/Vol] 0.1 10*3/uL Invalid Interpretation Code 0.0-0.2 [facility] Comment on above: Order Comment: Testi ng performed at: [] [facility] [address], [address], , Senior Enlisted Advisor: Tres Cm, PhD Performed By: #### C 121, C301, C406, C4176, C116, C48, C8, C45, C400, C115 #### Refer to report for performing lab Basophils/100 WBC (Bld) 1 % Invalid Interpretation Code Not Estab. [facility] Comment on above: Order Comment: Testi ng performed at: [] [facility], [address] [place] [address], [address], , Senior Enlisted Advisor: Tres Cm, PhD Performed By: #### C 121, C301, C406, C4176, C116, C48, C8, C45, C400, C115 #### Refer to report for performing lab Eosinophils (Bld) [#/Vol] 0.4 10*3/uL Invalid Interpretation Code 0.0-0.4 [facility] Comment on above: Order Comment: Testi ng performed at: [] [facility], [address] [place] [address], [address], , Senior Enlisted Advisor: Tres Cm, PhD Performed By: #### C 121, C301, C406, C4176, C116, C48, C8, C45, C400, C115 #### Refer to report for performing lab Eosinophils/100 WBC (Bld) 9 % Invalid Interpretation Code Not Estab. [facility] Comment on above: Order Comment: Testi ng performed at: [] [facility], [address] [place] [address], [address], , Senior Enlisted Advisor: Tres Cm, PhD Performed By: #### C 121, C301, C406, C4176, C116, C48, C8, C45, C400, C115 #### Refer to report for performing lab Erythrocyte distribution width (RBC) [Ratio] 16.6 % High 11.6-15.4 [facility] Comment on above: Order Comment: Testi ng performed at: [] [facility], [address] [place] [address], [address], , Senior Enlisted Advisor: Tres Cm, PhD Performed By: #### C 121, C301, C406, C4176, C116, C48, C8, C45, C400, C115 #### Refer to report for performing lab Hematocrit (Bld) [Volume fraction] 38.0 % Invalid Interpretation Code 37.5-51.0 [facility] Comment on above: Order Comment: Testi ng performed at: [] [facility], [address] [place] [address], [address], , Senior Enlisted Advisor: Tres Cm, PhD Performed By: #### C 121, C301, C406, C4176, C116, C48, C8, C45, C400, C115 #### Refer to report for performing lab Hematology Comments: Note: Invalid Interpretation Code [facility] Comment on above: Order Comment: Testi ng performed at: [] [facility], [address] [place] [address], [address], , Senior Enlisted Advisor: Trse Cm, PhD Result Comment: Veri fied by microscopic examination. Performed By: #### C 121, C301, C406, C4176, C116, C48, C8, C45, C400, C115 #### Refer to report for performing lab Hemoglobin (Bld) [Mass/Vol] 12.8 g/dL Low 13.0-17.7 [facility] Comment on above: Order Comment: Testi ng performed at: [] [facility], [address] [place] [address], [address], , Senior Enlisted Advisor: Tres Cm, PhD Performed By: #### C 121, C301, C406, C4176, C116, C48, C8, C45, C400, C115 #### Refer to report for performing lab Immature Grans (Abs) 0.0 x10E3/uL Invalid Interpretation Code 0.0-0.1 [facility] Comment on above: Order Comment: Testi ng performed at: [] [facility], [address] [place] [address], [address], , Senior Enlisted Advisor: Tres Cm, PhD Performed By: #### C 121, C301, C406, C4176, C116, C48, C8, C45, C400, C115 #### Refer to report for performing lab Immature granulocytes/100 WBC (Bld) 0 % Invalid Interpretation Code Not Estab. [facility] Comment on above: Order Comment: Testi ng performed at: [] [facility], [address] [place] [address], [address], , Senior Enlisted Advisor: Tres Cm, PhD Performed By: #### C 121, C301, C406, C4176, C116, C48, C8, C45, C400, C115 #### Refer to report for performing lab Lymphocytes (Bld) [#/Vol] 1.1 10*3/uL Invalid Interpretation Code 0.7-3.1 [facility] Comment on above: Order Comment: Testi ng performed at: [] [facility], [address] [place] [address], [address], , Senior Enlisted Advisor: Tres Cm, PhD Performed By: #### C 121, C301, C406, C4176, C116, C48, C8, C45, C400, C115 #### Refer to report for performing lab Lymphocytes/100 WBC (Bld) 24 % Invalid Interpretation Code Not Estab. [facility] Comment on above: Order Comment: Testi ng performed at: [] [facility], [address] [place] [address], [address], , Senior Enlisted Advisor: Tres Cm, PhD Performed By: #### C 121, C301, C406, C4176, C116, C48, C8, C45, C400, C115 #### Refer to report for performing lab MCH (RBC) [Entitic mass] 28.6 pg Invalid Interpretation Code 26.6-33.0 [facility] Comment on above: Order Comment: Testi ng performed at: [] [address], [address], , Senior Enlisted Advisor: Tres Cm, PhD Performed By: #### C 121, C301, C406, C4176, C116, C48, C8, C45, C400, C115 #### Refer to report for performing lab MCHC (RBC) [Mass/Vol] 33.7 g/dL Invalid Interpretation Code 31.5-35.7 [facility] Comment on above: Order Comment: Testi ng performed at: [] [facility], [address] [place] [address], [address], , Senior Enlisted Advisor: Tres Cm, PhD Performed By: #### C 121, C301, C406, C4176, C116, C48, C8, C45, C400, C115 #### Refer to report for performing lab MCV (RBC) [Entitic vol] 85 fL Invalid Interpretation Code 79-97 [facility] Comment on above: Order Comment: Testi ng performed at: [] [facility], [address] [place] [address], [address], , Senior Enlisted Advisor: Tres Cm, PhD Performed By: #### C 121, C301, C406, C4176, C116, C48, C8, C45, C400, C115 #### Refer to report for performing lab Monocytes (Bld) [#/Vol] 0.7 10*3/uL Invalid Interpretation Code 0.1-0.9 [facility] Comment on above: Order Comment: Testi ng performed at: [] [facility], [address] [place] [address], [address], , Senior Enlisted Advisor: Tres Cm, PhD Performed By: #### C 121, C301, C406, C4176, C116, C48, C8, C45, C400, C115 #### Refer to report for performing lab Monocytes/100 WBC (Bld) 15 % Invalid Interpretation Code Not Estab. [facility] Comment on above: Order Comment: Testi ng performed at: [] [facility], [address] [place] [address], [address], , Senior Enlisted Advisor: Tres Cm, PhD Performed By: #### C 121, C301, C406, C4176, C116, C48, C8, C45, C400, C115 #### Refer to report for performing lab Neutrophils (Absolute) 2.5 x10E3/uL Invalid Interpretation Code 1.4-7.0 [facility] Comment on above: Order Comment: Testi ng performed at: [] [facility], [address] [place] [address], [address], , Senior Enlisted Advisor: Tres Cm, PhD Performed By: #### C 121, C301, C406, C4176, C116, C48, C8, C45, C400, C115 #### Refer to report for performing lab Neutrophils/100 WBC (Bld) 51 % Invalid Interpretation Code Not Estab. [facility] Comment on above: Order Comment: Testi ng performed at: [] [facility], [address] [place] [address], [address], , Senior Enlisted Advisor: Tres Cm, PhD Performed By: #### C 121, C301, C406, C4176, C116, C48, C8, C45, C400, C115 #### Refer to report for performing lab Platelets (Bld) [#/Vol] 81 10*3/uL Critically low 150-450 [facility] Comment on above: Order Comment: Testi ng performed at: [] [facility], [address] [place] [address], [address], , Senior Enlisted Advisor: Tres Cm, PhD Result Comment: Plat elet count verified by examination of peripheral blood smear. Performed By: #### C 121, C301, C406, C4176, C116, C48, C8, C45, C400, C115 #### Refer to report for performing lab RBC (Bld) [#/Vol] 4.47 10*6/uL Invalid Interpretation Code 4.14-5.80 [facility] Comment on above: Order Comment: Testi ng performed at: [] [facility], [address] [place] [address], [address], , Senior Enlisted Advisor: Tres Cm, PhD Performed By: #### C 121, C301, C406, C4176, C116, C48, C8, C45, C400, C115 #### Refer to report for performing lab WBC (Bld) [#/Vol] 4.8 10*3/uL Invalid Interpretation Code 3.4-10.8 [facility] Comment on above: Order Comment: Testi ng performed at: [] [facility], [address] [place] [address], [address], , Senior Enlisted Advisor: Tres Cm, PhD Result Comment: Ve rified by repeat analysis Performed By: #### C 121, C301, C406, C4176, C116, C48, C8, C45, C400, C115 #### Refer to report for performing lab GGT (COPC)on 04-05-2023 Gamma glutamyl transferase [Catalytic activity/Vol] 47 U/L Invalid Interpretation Code 0-65 [facility] Comment on above: Order Comment: Testi ng performed at: [] [facility], [address] [place], [address], , Senior Enlisted Advisor: Tres Cm, PhD Performed By: #### C 121, C301, C406, C4176, C116, C48, C8, C45, C400, C115 #### Refer to report for performing lab Hepatic Panel (COPC)on 04-05 Bilirubin.indirect [Mass/Vol] 0.68 mg/dL High 0.00-0.40 [facility] Comment on above: Order Comment: Testi ng performed at: [] [facility], [address] [place] [address], [address], , Senior Enlisted Advisor: Tres Cm, PhD Performed By: #### C 121, C301, C406, C4176, C116, C48, C8, C45, C400, C115 #### Refer to report for performing lab ALT [Catalytic activity/Vol] 74 U/L High 0-44 [facility] Comment on above: Order Comment: Testi ng performed at: [] [facility], [address] [place] [address], [address], , Senior Enlisted Advisor: Tres Cm, PhD Performed By: #### C 121, C301, C406, C4176, C116, C48, C8, C45, C400, C115 #### Refer to report for performing lab ALP [Catalytic activity/Vol] 180 U/L High 44-121 [facility] Comment on above: Order Comment: Testi ng performed at: [] [facility], [address] [place] [address], [phone], , Senior Enlisted Advisor: Tres Cm, PhD Performed By: #### C 121, C301, C406, C4176, C116, C48, C8, C45, C400, C115 #### Refer to report for performing lab AST [Catalytic activity/Vol] 89 U/L High 0-40 [facility] Comment on above: Order Comment: Testi ng performed at: [] [facility], [address] [place] [address], [phone], , Senior Enlisted Advisor: Tres Cm, PhD Performed By: #### C 121, C301, C406, C4176, C116, C48, C8, C45, C400, C115 #### Refer to report for performing lab Bilirubin [Mass/Vol] 1.6 mg/dL High 0.0-1.2 [facility] Comment on above: Order Comment: Testi ng performed at: [] [facility], [address] [place], [place] [address], [address], , Senior Enlisted Advisor: Tres Cm, PhD Performed By: #### C 121, C301, C406, C4176, C116, C48, C8, C45, C400, C115 #### Refer to report for performing lab Albumin [Mass/Vol] 3.0 g/dL Low 4.0-5.0 [facility] Comment on above: Order Comment: Testi ng performed at: [] [facility], [address] [place] [address], [address], , Senior Enlisted Advisor: Tres Cm, PhD Performed By: #### C 121, C301, C406, C4176, C116, C48, C8, C45, C400, C115 #### Refer to report for performing lab Protein [Mass/Vol] 7.1 g/dL Invalid Interpretation Code 6.0-8.5 [facility] Comment on above: Order Comment: Testi ng performed at: [] [facility], [address] [place] [address], [phone], , Senior Enlisted Advisor: Tres Cm, PhD Performed By: #### C 121, C301, C406, C4176, C116, C48, C8, C45, C400, C115 #### Refer to report for performing lab HgbA1C ([facility])on 04-05-2023 HbA1c (Bld) [Mass fraction] 6.8 % High 4.8-5.6 [facility] Comment on above: Order Comment: Testi ng performed at: [] [facility], [address] [place], [address], , Senior Enlisted Advisor: Tres Cm, PhD Result Comment: Pred iabetes: 5.7 - 6.4 Diabetes: >6.4 Glycemic control for adults with diabetes: <7.0 Performed By: #### C 121, C301, C406, C4176, C116, C48, C8, C45, C400, C115 #### Refer to report for performing lab Magnesium (COPC)on 3 Magnesium [Mass/Vol] 1.9 mg/dL Invalid Interpretation Code 1.6-2.3 [facility] Comment on above: Order Comment: Testi ng performed at: [] [facility], [address] [place] [address], [phone], , Senior Enlisted Advisor: Tres Cm, PhD Performed By: #### C 121, C301, C406, C4176, C116, C48, C8, C45, C400, C115 #### Refer to report for performing lab Phosphorus (COPC)on 04-05-20 23 Phosphate [Mass/Vol] 3.8 mg/dL Invalid Interpretation Code 2.8-4.1 [facility] Comment on above: Order Comment: Testi ng performed at: [] [facility], [address] [place] [address], [address], , Senior Enlisted Advisor: Tres Cm, PhD Performed By: #### C 121, C301, C406, C4176, C116, C48, C8, C45, C400, C115 #### Refer to report for performing lab Lipid Panel (COPC)on 023 Cholesterol, Total Test Not Performed. Normal [facility] Comment on above: Order Comment: Testi ng performed at: [] [facility], [address] [place] [address], [address], , Senior Enlisted Advisor: Tres Cm, PhD Result Comment: Requ est [...] Order Comment: Testi ng performed at: [] [facility], [address] [place] [address], [phone], , Senior Enlisted Advisor: Tres Cm, PhD Result Comment: Test not performed Performed By: #### C 121, C301, C406, C4176, C116, C48, C8, C45, C400, C115 #### Refer to report for performing lab Triglycerides Test Not Performed. Normal [facility] Comment on above: Order Comment: Testi ng performed at: [] [facility], [address] [place] [address], [address], , Senior Enlisted Advisor: Tres Cm, PhD Result Comment: Test not performed Performed By: #### C 121, C301, C406, C4176, C116, C48, C8, C45, C400, C115 #### Refer to report for performing lab VLDL Cholesterol Elliott Test Not Performed. Normal [facility] Comment on above: Order Comment: Testi ng performed at: [] [facility], [address] [place] [address], [phone], , Senior Enlisted Advisor: Tres Cm, PhD Result Comment: Unab le to calculate result since non-numeric result obtained for component test. Performed By: #### C 121, C301, C406, C4176, C116, C48, C8, C45, C400, C115 #### Refer to report for performing lab Written Authorizationon 03-15 Written Authorization Comment Normal [facility] Comment on above: Order Comment: Testi ng performed at: [] [facility], [address] [place] [address], [phone], , Senior Enlisted Advisor: Tres Cm, PhD Result Comment: Writ ten Authorization Received. Authorization received from Written Request 04-12-2023 Logged by Danny Bunn Performed By: #### C 121, C301, C406, C4176, C116, C48, C8, C45, C400, C115 #### Refer to report for performing lab Marissa 02-16-2023 Esophagogastroduodenosc opy [facility] GI Patient Name: Leon Rider Procedure Date: 02/16/2023 9:03 AM Date of : 1980 Age: 42 Gender: Male Procedure: Upper GI endoscopy Indications: Follow-up of esophageal varices Patient Profile: Refer to note in patient chart for documentation of history and physical. Providers: VINCENT MOESS MD, Donell Ochoa MD: Medicines: Monitored Anesthesia [...] was normal. Procedure Code(s): --- Professional --- 04482, Esophagogastroduodenosc opy, flexible, transoral; diagnostic, including collection of specimen(s) by brushing or washing, when performed (separate procedure) Diagnosis Code(s): --- Professional --- I85.00, Esophageal varices without bleeding K76.6, Portal hypertension K31.89, Other diseases of stomach and duodenum K31.819, Angiodysplasia of stomach and duodenum without bleeding CPT copyright 2020 [employer]. All rights reserved. The codes documented in this report are preliminary and upon favor maker review may be revised to meet current compliance requirements. MD VINCENT Chiang MD 02/16/2023 9:28:58 AM This report has been signed electronically. Estimated Blood Loss: Estimated blood loss: none. Number of Addenda: 0 Note Initiated On: 02/16/2023 9:03 AM Total Procedure Duration Time 0 hours 2 minutes 20 seconds [address] [place] [address] IMPRESSION: - Z-line regular, 40 cm from [...] endoscopy in 6 months for surveillance. Normal [facility] EGD Anesthesia - MAC; [facility] E [...] upper endoscopy in 6 months for surveillance. [facility] GI Patient Name: Leon Rider [...] was normal. Procedure Code(s): --- Professional --- 57412, Esophagogastroduodenosc opy, flexible, transoral; diagnostic, including collection of specimen(s) by brushing or washing, when performed (separate procedure) Diagnosis Code(s): --- Professional --- I85.00, Esophageal varices without bleeding K76.6, Portal hypertension K31.89, Other diseases of stomach and duodenum K31.819, Angiodysplasia of stomach and duodenum without bleeding CPT copyright 2020 [employer]. All rights reserved. The codes documented in this report are preliminary and upon favor maker review may be revised to meet current compliance requirements. MD VINCENT Chiang MD 02/16/2023 9:28:58 AM This report has been signed electronically. Estimated Blood Loss: Estimated blood loss: none. Number of Addenda: 0 Note Initiated On: 02/16/2023 9:03 AM Total Procedure Duration Time 0 hours 2 minutes 20 seconds [address] [place] [address] [facility] Vincent Moses MD - 02/16/2023 [facility] GI Patient Name: Leon Rider Procedure [...] was normal. Procedure Code(s): --- Professional --- 75526, Esophagogastroduodenosc opy, flexible, transoral; diagnostic, including collection of specimen(s) by brushing or washing, when performed (separate procedure) Diagnosis Code(s): --- Professional --- I85.00, Esophageal varices without bleeding K76.6, Portal hypertension K31.89, Other diseases of stomach and duodenum K31.819, Angiodysplasia of stomach and duodenum without bleeding CPT copyright 2020 [employer]. All rights reserved. The codes documented in this report are preliminary and upon favor maker review may be revised to meet current compliance requirements. MD VINCENT Chiang MD 02/16/2023 9:28:58 AM This report has been signed electronically. Estimated Blood Loss: Estimated blood loss: none. Number of Addenda: 0 Note Initiated On: 02/16/2023 9:03 AM Total Procedure Duration Time 0 hours 2 minutes 20 seconds [address] [place] [address] IMPRESSION: - Z-line regular, 40 cm from [...] upper endoscopy in 6 months for surveillance. [facility] Radiology Study observation (narrative) [employer] Glucose Auto test strip (Bld ) [Mass/Vol]on 02-16-2023 Glucose [Mass/Vol] 158 mg/dL High 70-99 [facility] Comment on above: Performed By: #### 2 340-8 #### [facility]) [facility] [address] [place] [address] Glucose [Mass/Vol] 158 mg/dL High 70 - 99 mg/dL [facility] Interpretation and review of laboratory results Abnormal [facility] EGDon 12-23-2022 Esophagogastroduodenosc opy [facility] GI Patient Name: Leon Rider Procedure [...] oxygen saturations were monitored continuously. The GIF-H190 [id number] Endoscope was introduced through the mouth, and [...] was normal. Procedure Code(s): --- Professional --- 29290, Esophagogastroduodenosc opy, flexible, transoral; with band ligation of esophageal/gastric varices Diagnosis Code(s): --- Professional --- I85.00, Esophageal varices without bleeding K76.6, Portal hypertension K31.89, Other diseases of stomach and duodenum CPT copyright 2020 [employer]. All rights reserved. The codes documented in this report are preliminary and upon favor maker review may be revised to meet current compliance requirements. MD Paul Khan MD 12/23/2022 10:36:45 AM This report has been signed electronically. Estimated Blood Loss: Estimated blood loss: none. Number of Addenda: 0 Note Initiated On: 12/23/2022 10:12 AM Total Procedure Duration Time 0 hours 6 minutes 30 seconds [address] [place] [address] IMPRESSION: - Grade II esophageal varices. Completely [...] to GI office as previously scheduled. Normal [facility] EGD Anesthesia - [facility]; [facility] E NDOSCOPYon 12-23-2022 - Grade II [...] Return to GI office as previously scheduled. [facility] GI Patient Name: Leon Rider [...] oxygen saturations were monitored continuously. The GIF-H190 [id number] Endoscope was introduced through the mouth, and [...] was normal. Procedure Code(s): --- Professional --- 82568, Esophagogastroduodenosc opy, flexible, transoral; with band ligation of esophageal/gastric varices Diagnosis Code(s): --- Professional --- I85.00, Esophageal varices without bleeding K76.6, Portal hypertension K31.89, Other diseases of stomach and duodenum CPT copyright 2020 [employer]. All rights reserved. The codes documented in this report are preliminary and upon favor maker review may be revised to meet current compliance requirements. MD Paul Khan MD 12/23/2022 10:36:45 AM This report has been signed elect (more content not included)... [facility] Paul Mishra V - 12/23/2022 [facility] GI Patient Name: Leon Rider Procedure [...] oxygen saturations were monitored continuously. The GIF-H190 [id number] Endoscope was introduced through the mouth, and [...] was normal. Procedure Code(s): --- Professional --- 88780, Esophagogastroduodenosc opy, flexible, transoral; with band ligation of esophageal/gastric varices Diagnosis Code(s): --- Professional --- I85.00, Esophageal varices without bleeding K76.6, Portal hypertension K31.89, Other diseases of stomach and duodenum CPT copyright 2020 [employer]. All rights reserved. The codes documented in this report are preliminary and upon favor maker review may be revised to meet current compliance requirements. MD Paul Khan MD 12/23/2022 10:36:45 AM This report has been signed electronically. Estimated Blood Loss: Estimated blood loss: none. Number of Addenda: 0 Note Initiated On: 12/23/2022 10:12 AM Total Procedure Duration Time 0 hours 6 minutes 30 seconds [address] [place] [address] IMPRESSION: - Grade II esophageal varices. Completely [...] Return to GI office as previously scheduled. [employer] [facility] Radiology Study observation (narrative) [employer] Glucose Auto test strip (Bld ) [Mass/Vol]on 12-23-2022 Glucose [Mass/Vol] 135 mg/dL High 70-99 [facility] Comment on above: Performed By: #### 2 340-8 #### [facility] ([facility]) [facility] [address] [place] [address] Glucose [Mass/Vol] 135 mg/dL High 70 - 99 mg/dL [facility] Interpretation and review of laboratory results Abnormal [facility] Basic Metabolic Panel (COPC) on 11-21-2022 CO2 [Moles/Vol] 24 mmol/L Invalid Interpretation Code 20-29 [facility] Comment on above: Order Comment: Testi ng performed at: [CB] [employer] [facility], [address] [place] [address], [phone], , Senior Enlisted Advisor: Tres Cm, PhD Performed By: #### C 121, C301, C406, C4176, C116, C48, C8, C45, C400, C115 #### Refer to report for performing lab Creatinine [Mass/Vol] 0.63 mg/dL Low 0.76-1.27 [facility] Comment on above: Order Comment: Testi ng performed at: [CB] [employer] [facility], [address] [place] [address], [place], [address], , Senior Enlisted Advisor: Tres Cm, PhD Performed By: #### C 121, C301, C406, C4176, C116, C48, C8, C45, C400, C115 #### Refer to report for performing lab GFR/1.73 sq M.predicted among non-blacks MDRD (S/P/Bld) [Vol rate/Area] 120 mL/min/{1.73_m2} Invalid Interpretation Code >59 [facility] Comment on above: Order Comment: Testi ng performed at: [CB] [employer], [address] [place], [address], , Senior Enlisted Advisor: Tres Cm, PhD Performed By: #### C 121, C301, C406, C4176, C116, C48, C8, C45, C400, C115 #### Refer to report for performing lab Potassium [Moles/Vol] 3.6 mmol/L Invalid Interpretation Code 3.5-5.2 [facility] Comment on above: Order Comment: Testi ng performed at: [] [facility], [address] [place] [address], [address], , Senior Enlisted Advisor: Tres Cm, PhD Performed By: #### C 121, C301, C406, C4176, C116, C48, C8, C45, C400, C115 #### Refer to report for performing lab Urea nitrogen [Mass/Vol] 5 mg/dL Low 6-24 [facility] Comment on above: Order Comment: Testi ng performed at: [] [facility], [address] [place] [address], [phone], , Senior Enlisted Advisor: Tres Cm, PhD Performed By: #### C 121, C301, C406, C4176, C116, C48, C8, C45, C400, C115 #### Refer to report for performing lab Urea nitrogen/Creatinine [Mass ratio] 8 mg/mg Low 9-20 [facility] Comment on above: Order Comment: Testi ng performed at: [] [facility], [address] [place] [address], [address], , Senior Enlisted Advisor: Tres Cm, PhD Performed By: #### C 121, C301, C406, C4176, C116, C48, C8, C45, C400, C115 #### Refer to report for performing lab Glucose [Mass/Vol] 108 mg/dL High 70-[address] [facility] Comment on above: Order Comment: Testi ng performed at: [] [facility], [address] [place] [address], [address], , Senior Enlisted Advisor: Tres Cm, PhD Performed By: #### C 121, C301, C406, C4176, C116, C48, C8, C45, C400, C115 #### Refer to report for performing lab Calcium [Mass/Vol] 8.6 mg/dL Low 8.7-10.[address] [facility] Comment on above: Order Comment: Testfito ng performed at: [] [facility], [address] [place] [address], [address], , Senior Enlisted Advisor: Tres Cm, PhD Performed By: #### C 121, C301, C406, C4176, C116, C48, C8, C45, C400, C115 #### Refer to report for performing lab Sodium [Moles/Vol] 136 mmol/L Invalid Interpretation Code 134-144 [facility] Comment on above: Order Comment: Testfito ng performed at: [] [facility], [address] [place] [address], [phone], , Senior Enlisted Advisor: Tres Cm, PhD Performed By: #### C 121, C301, C406, C4176, C116, C48, C8, C45, C400, C115 #### Refer to report for performing lab Chloride [Moles/Vol] 100 mmol/L Invalid Interpretation Code 96-106 [facility] Comment on above: Order Comment: Testfito ng performed at: [] [facility], [address] [place] [address], [address], , Senior Enlisted Advisor: Tres Cm, PhD Performed By: #### C 121, C301, C406, C4176, C116, C48, C8, C45, C400, C115 #### Refer to report for performing lab CBC with differential (COPC) on 11-21-2022 Basophils (Bld) [#/Vol] 0.1 10*3/uL Invalid Interpretation Code 0.0-0.2 [facility] Comment on above: Order Comment: Testi ng performed at: [CB] [facility], [address] [place], [address], , Senior Enlisted Advisor: Tres Cm, PhD Performed By: #### C 121, C301, C406, C4176, C116, C48, C8, C45, C400, C115 #### Refer to report for performing lab Basophils/100 WBC (Bld) 2 % Invalid Interpretation Code Not Estab. [facility] Comment on above: Order Comment: Testi ng performed at: [] [facility], [address] [place] [address], [phone], , Senior Enlisted Advisor: Tres Cm, PhD Performed By: #### C 121, C301, C406, C4176, C116, C48, C8, C45, C400, C115 #### Refer to report for performing lab Eosinophils (Bld) [#/Vol] 0.4 10*3/uL Invalid Interpretation Code 0.0-0.4 [facility] Comment on above: Order Comment: Testi ng performed at: [] [facility], [address] [place], [address], , Senior Enlisted Advisor: Tres Cm, PhD Performed By: #### C 121, C301, C406, C4176, C116, C48, C8, C45, C400, C115 #### Refer to report for performing lab Eosinophils/100 WBC (Bld) 8 % Invalid Interpretation Code Not Estab. [facility] Comment on above: Order Comment: Testi ng performed at: [] [facility], [address] [place], [address], , Senior Enlisted Advisor: Tres Cm, PhD Performed By: #### C 121, C301, C406, C4176, C116, C48, C8, C45, C400, C115 #### Refer to report for performing lab Erythrocyte distribution width (RBC) [Ratio] 14.9 % Invalid Interpretation Code 11.6-15.4 [facility] Comment on above: Order Comment: Testi ng performed at: [] [facility], [address] [place] [address], [address], , Senior Enlisted Advisor: Tres Cm, PhD Performed By: #### C 121, C301, C406, C4176, C116, C48, C8, C45, C400, C115 #### Refer to report for performing lab Hematocrit (Bld) [Volume fraction] 38.1 % Invalid Interpretation Code 37.5-51.0 [facility] Comment on above: Order Comment: Testi ng performed at: [] [facility], [address] [place] [address], [address], , Senior Enlisted Advisor: Tres Cm, PhD Performed By: #### C 121, C301, C406, C4176, C116, C48, C8, C45, C400, C115 #### Refer to report for performing lab Hematology Comments: Note: Invalid Interpretation Code [facility] Comment on above: Order Comment: Testi ng performed at: [] [facility], [address] [place] [address], [address], , Senior Enlisted Advisor: Tres Cm, PhD Result Comment: Veri fied by microscopic examination. Performed By: #### C 121, C301, C406, C4176, C116, C48, C8, C45, C400, C115 #### Refer to report for performing lab Hemoglobin (Bld) [Mass/Vol] 12.9 g/dL Low 13.0-17.7 [facility] Comment on above: Order Comment: Testi ng performed at: [] [facility], [address] [place] [address], [address], , Senior Enlisted Advisor: Tres Cm, PhD Performed By: #### C 121, C301, C406, C4176, C116, C48, C8, C45, C400, C115 #### Refer to report for performing lab Immature Grans (Abs) 0.0 x10E3/uL Invalid Interpretation Code 0.0-0.1 [facility] Comment on above: Order Comment: Testi ng performed at: [] [address], [address], , Senior Enlisted Advisor: Tres Cm, PhD Performed By: #### C 121, C301, C406, C4176, C116, C48, C8, C45, C400, C115 #### Refer to report for performing lab Immature granulocytes/100 WBC (Bld) 0 % Invalid Interpretation Code Not Estab. [facility] Comment on above: Order Comment: Testi ng performed at: [] [address], [address], , Senior Enlisted Advisor: Tres Cm, PhD Performed By: #### C 121, C301, C406, C4176, C116, C48, C8, C45, C400, C115 #### Refer to report for performing lab Lymphocytes (Bld) [#/Vol] 1.0 10*3/uL Invalid Interpretation Code 0.7-3.1 [facility] Comment on above: Order Comment: Testi ng performed at: [] [facility], [address] [place] [address], [phone], , Senior Enlisted Advisor: Tres Cm, PhD Performed By: #### C 121, C301, C406, C4176, C116, C48, C8, C45, C400, C115 #### Refer to report for performing lab Lymphocytes/100 WBC (Bld) 23 % Invalid Interpretation Code Not Estab. [facility] Comment on above: Order Comment: Testi ng performed at: [] [facility], [address] [place] [address], [address], , Senior Enlisted Advisor: Tres Cm, PhD Performed By: #### C 121, C301, C406, C4176, C116, C48, C8, C45, C400, C115 #### Refer to report for performing lab MCH (RBC) [Entitic mass] 29.2 pg Invalid Interpretation Code 26.6-33.0 [facility] Comment on above: Order Comment: Testi ng performed at: [] [facility], [address] [place] [address], [address], , Senior Enlisted Advisor: Tres Cm, PhD Performed By: #### C 121, C301, C406, C4176, C116, C48, C8, C45, C400, C115 #### Refer to report for performing lab MCHC (RBC) [Mass/Vol] 33.9 g/dL Invalid Interpretation Code 31.5-35.7 [facility] Comment on above: Order Comment: Testi ng performed at: [] [facility], [address] [place] [address], [phone], , Senior Enlisted Advisor: Tres Cm, PhD Performed By: #### C 121, C301, C406, C4176, C116, C48, C8, C45, C400, C115 #### Refer to report for performing lab MCV (RBC) [Entitic vol] 86 fL Invalid Interpretation Code 79-97 [facility] Comment on above: Order Comment: Testi ng performed at: [] [facility], [address] [place] [address], [phone], , Senior Enlisted Advisor: Tres Cm, PhD Performed By: #### C 121, C301, C406, C4176, C116, C48, C8, C45, C400, C115 #### Refer to report for performing lab Monocytes (Bld) [#/Vol] 0.7 10*3/uL Invalid Interpretation Code 0.1-0.9 [facility] Comment on above: Order Comment: Testi ng performed at: [] [facility], [address] [place], [address], , Senior Enlisted Advisor: Tres Cm, PhD Performed By: #### C 121, C301, C406, C4176, C116, C48, C8, C45, C400, C115 #### Refer to report for performing lab Monocytes/100 WBC (Bld) 15 % Invalid Interpretation Code Not Estab. [facility] Comment on above: Order Comment: Testi ng performed at: [] [facility], [address] [place] [address], [address], , Senior Enlisted Advisor: Tres Cm, PhD Performed By: #### C 121, C301, C406, C4176, C116, C48, C8, C45, C400, C115 #### Refer to report for performing lab Neutrophils (Absolute) 2.2 x10E3/uL Invalid Interpretation Code 1.4-7.0 [facility] Comment on above: Order Comment: Testi ng performed at: [] [facility], [address] [place] [address], [address], , Senior Enlisted Advisor: Tres Cm, PhD Performed By: #### C 121, C301, C406, C4176, C116, C48, C8, C45, C400, C115 #### Refer to report for performing lab Neutrophils/100 WBC (Bld) 52 % Invalid Interpretation Code Not Estab. [facility] Comment on above: Order Comment: Testi ng performed at: [] [facility], [address] [place] [address], [address], , Senior Enlisted Advisor: Tres Cm, PhD Performed By: #### C 121, C301, C406, C4176, C116, C48, C8, C45, C400, C115 #### Refer to report for performing lab Platelets (Bld) [#/Vol] 84 10*3/uL Critically low 150-450 [facility] Comment on above: Order Comment: Testi ng performed at: [] [facility], [address] [place] [address], [address], , Senior Enlisted Advisor: Tres Cm, PhD Result Comment: Plat elet count verified by examination of peripheral blood smear. Performed By: #### C 121, C301, C406, C4176, C116, C48, C8, C45, C400, C115 #### Refer to report for performing lab RBC (Bld) [#/Vol] 4.42 10*6/uL Invalid Interpretation Code 4.14-5.80 [facility] Comment on above: Order Comment: Testi ng performed at: [] [facility], [address] [place] [address], [address], , Senior Enlisted Advisor: Tres Cm, PhD Performed By: #### C 121, C301, C406, C4176, C116, C48, C8, C45, C400, C115 #### Refer to report for performing lab WBC (Bld) [#/Vol] 4.3 10*3/uL Invalid Interpretation Code 3.4-10.8 [facility] Comment on above: Order Comment: Testi ng performed at: [] [facility], [address] [place] [address], [address], , Senior Enlisted Advisor: Tres Cm, PhD Result Comment: Ve rified by repeat analysis Performed By: #### C 121, C301, C406, C4176, C116, C48, C8, C45, C400, C115 #### Refer to report for performing lab GGT (COPC)on 11-21-2022 Gamma glutamyl transferase [Catalytic activity/Vol] 59 U/L Invalid Interpretation Code 0-65 [facility] Comment on above: Order Comment: Testi ng performed at: [] [facility], [address] [place], [address], , Senior Enlisted Advisor: Tres Cm, PhD Performed By: #### C 121, C301, C406, C4176, C116, C48, C8, C45, C400, C115 #### Refer to report for performing lab Hepatic Panel (COPC)on 11-21 Bilirubin.indirect [Mass/Vol] 0.65 mg/dL High 0.00-0.40 [facility] Comment on above: Order Comment: Testi ng performed at: [] [address], [address], , Senior Enlisted Advisor: Tres Cm, PhD Performed By: #### C 121, C301, C406, C4176, C116, C48, C8, C45, C400, C115 #### Refer to report for performing lab AST [Catalytic activity/Vol] 72 U/L High 0-40 [facility] Comment on above: Order Comment: Testi ng performed at: [] [address], [address], , Senior Enlisted Advisor: Tres Cm, PhD Performed By: #### C 121, C301, C406, C4176, C116, C48, C8, C45, C400, C115 #### Refer to report for performing lab ALP [Catalytic activity/Vol] 188 U/L High 44-121 [facility] Comment on above: Order Comment: Testi ng performed at: [] [address], [address], , Senior Enlisted Advisor: Tres Cm, PhD Performed By: #### C 121, C301, C406, C4176, C116, C48, C8, C45, C400, C115 #### Refer to report for performing lab ALT [Catalytic activity/Vol] 46 U/L High 0-44 [facility] Comment on above: Order Comment: Testi ng performed at: [] [address], [address], , Senior Enlisted Advisor: Tres Cm, PhD Performed By: #### C 121, C301, C406, C4176, C116, C48, C8, C45, C400, C115 #### Refer to report for performing lab Albumin [Mass/Vol] 3.1 g/dL Low 4.0-5.0 [facility] Comment on above: Order Comment: Testi ng performed at: [] [facility], [address] [place] [address], [address], , Senior Enlisted Advisor: Tres Cm, PhD Performed By: #### C 121, C301, C406, C4176, C116, C48, C8, C45, C400, C115 #### Refer to report for performing lab Bilirubin [Mass/Vol] 1.7 mg/dL High 0.0-1.2 [facility] Comment on above: Order Comment: Testi ng performed at: [] [facility], [address] [place] [address], [address], , Senior Enlisted Advisor: Tres Cm, PhD Performed By: #### C 121, C301, C406, C4176, C116, C48, C8, C45, C400, C115 #### Refer to report for performing lab Protein [Mass/Vol] 7.4 g/dL Invalid Interpretation Code 6.0-8.5 [facility] Comment on above: Order Comment: Testi ng performed at: [] [facility], [address] [place] [address], [address], , Senior Enlisted Advisor: Tres Cm, PhD Performed By: #### C 121, C301, C406, C4176, C116, C48, C8, C45, C400, C115 #### Refer to report for performing lab HgbA1C (COPC)on 11-21-2022 HbA1c (Bld) [Mass fraction] 6.6 % High 4.8-5.6 [facility] Comment on above: Order Comment: Testi ng performed at: [] [facility], [address] [place] [address], [address], , Senior Enlisted Advisor: Tres Cm, PhD Result Comment: Pred iabetes: [...] Order Comment: Testi ng performed at: [] [facility], [address] [place] [address], [address], , Senior Enlisted Advisor: Tres Cm, PhD Performed By: #### C 121, C301, C406, C4176, C116, C48, C8, C45, C400, C115 #### Refer to report for performing lab LDL Chol Calc ([facility]) 151 mg/dL High 0-99 [facility] Comment on above: Order Comment: Testi ng performed at: [Precyse] DNS:[facility], [address] [place] [address], [address], , Senior Enlisted Advisor: Tres Cm, PhD Performed By: #### C 121, C301, C406, C4176, C116, C48, C8, C45, C400, C115 #### Refer to report for performing lab VLDL Cholesterol Elliott 25 mg/dL Invalid Interpretation Code 5-40 [facility] Comment on above: Order Comment: Testi ng performed at: [Precyse] DNS:[facility], [address] [place] [address], [address], , Senior Enlisted Advisor: Tres Cm, PhD Performed By: #### C 121, C301, C406, C4176, C116, C48, C8, C45, C400, C115 #### Refer to report for performing lab Triglyceride [Mass/Vol] 139 mg/dL Invalid Interpretation Code 0-149 [facility] Comment on above: Order Comment: Testi ng performed at: [Precyse] [facility], [address] [place] [address], [address], , Senior Enlisted Advisor: Tres Cm, PhD Performed By: #### C 121, C301, C406, C4176, C116, C48, C8, C45, C400, C115 #### Refer to report for performing lab Cholesterol [Mass/Vol] 224 mg/dL High 100-199 [facility] Comment on above: Order Comment: Testi ng performed at: [CB] [facility], [address] [place], [address], , Senior Enlisted Advisor: Tres Cm, PhD Performed By: #### C 121, C301, C406, C4176, C116, C48, C8, C45, C400, C115 #### Refer to report for performing lab Magnesium ([facility])on Magnesium [Mass/Vol] 2.0 mg/dL Invalid Interpretation Code 1.6-2.3 [facility] Comment on above: Order Comment: Testi ng performed at: [CB] [facility], [address] [place], [address], , Senior Enlisted Advisor: Tres Cm, PhD Performed By: #### C 121, C301, C406, C4176, C116, C48, C8, C45, C400, C115 #### Refer to report for performing lab PSA, Free and Total ([facility])o n 11-21-2022 % Free PSA 50.0 % Invalid Interpretation Code [facility] Comment on above: Order Comment: Testi ng performed at: [CB] [facility], [address] [place], [address], , Senior Enlisted Advisor: Tres Cm, PhD Result Comment: The table [...] Order Comment: Testi ng performed at: [] [facility], [address] [place] [address], [address], , Senior Enlisted Advisor: Tres Cm, PhD Result Comment: Roch saturnino ECLIA methodology. According to the [employer], Serum PSA should decrease and [...] Order Comment: Testi ng performed at: [] [facility], [address] [place], [address], , Senior Enlisted Advisor: Tres Cm, PhD Result Comment: Mike matamoros ECLIA methodology. Performed By: #### C 121, C301, C406, C4176, C116, C48, C8, C45, C400, C115 #### Refer to report for performing lab Phosphorus (COPC)on 11-21-19 23 Phosphate [Mass/Vol] 4.0 mg/dL Invalid Interpretation Code 2.8-4.1 [facility] Comment on above: Order Comment: Testi ng performed at: [] [facility], [address] [place] [address], [address], , Senior Enlisted Advisor: Tres Cm, PhD Performed By: #### C 121, C301, C406, C4176, C116, C48, C8, C45, C400, C115 #### Refer to report for performing lab TSH ([facility])on 11-21-2022 TSH 1.800 uIU/mL Invalid Interpretation Code 0.450-4.50 0 [facility] Comment on above: Order Comment: Testi ng performed at: [] [facility], [address] [place] [address], [address], , Senior Enlisted Advisor: Tres Cm, PhD Performed By: #### C 121, C301, C406, C4176, C116, C48, C8, C45, C400, C115 #### Refer to report for performing lab Uric Acid ([facility])on 3 Urate [Mass/Vol] 3.6 mg/dL Low 3.8-8.4 [facility] Comment on above: Order Comment: Testi ng performed at: [] [facility], [address] [place] [address], [address], , Senior Enlisted Advisor: Tres Cm, PhD Result Comment: Ther apeutic target for gout patients: <6.0 Performed By: #### C 121, C301, C406, C4176, C116, C48, C8, C45, C400, C115 #### Refer to report for performing lab Urinalysis and Microscopic w / Rfx to Cx ([facility])on 11-21-2022 Bacteria None seen Invalid Interpretation Code None seen/Few [facility] Comment on above: Order Comment: Testi ng performed at: [] [facility], [address] [place] [address], [address], , Senior Enlisted Advisor: Tres Cm, PhD Performed By: #### C 121, C301, C406, C4176, C116, C48, C8, C45, C400, C115 #### Refer to report for performing lab Casts None seen Invalid Interpretation Code None seen [facility] Comment on above: Order Comment: Testi ng performed at: [] [facility], [address] [place] [address], [address], , Senior Enlisted Advisor: Tres Cm, PhD Performed By: #### C 121, C301, C406, C4176, C116, C48, C8, C45, C400, C115 #### Refer to report for performing lab Epithelial cells LM Ql (Urine sed) None seen Invalid Interpretation Code 0 - 10 [facility] Comment on above: Order Comment: Testi ng performed at: [] [facility], [address] [place] [address], [address], , Senior Enlisted Advisor: Tres Cm, PhD Performed By: #### C 121, C301, C406, C4176, C116, C48, C8, C45, C400, C115 #### Refer to report for performing lab Mucus Threads Present Invalid Interpretation Code Not Estab. [facility] Comment on above: Order Comment: Testi ng performed at: [] [facility], [address] [place] [address], [address], , Senior Enlisted Advisor: Tres Cm, PhD Performed By: #### C 121, C301, C406, C4176, C116, C48, C8, C45, C400, C115 #### Refer to report for performing lab RBC None seen Invalid Interpretation Code 0 - 2 [facility] Comment on above: Order Comment: Testi ng performed at: [] [facility], [address] [place], [address], , Senior Enlisted Advisor: Tres Cm, PhD Performed By: #### C 121, C301, C406, C4176, C116, C48, C8, C45, C400, C115 #### Refer to report for performing lab WBC None seen Invalid Interpretation Code 0 - 5 [facility] Comment on above: Order Comment: Testi ng performed at: [] [facility], [address] [place] [address], [address], , Senior Enlisted Advisor: Tres Cm, PhD Performed By: #### C 121, C301, C406, C4176, C116, C48, C8, C45, C400, C115 #### Refer to report for performing lab Appearance (U) Clear Invalid Interpretation Code Clear [facility] Comment on above: Order Comment: Testi ng performed at: [] [facility], [address] [place] [address], [address], , Senior Enlisted Advisor: Tres Cm, PhD Performed By: #### C 121, C301, C406, C4176, C116, C48, C8, C45, C400, C115 #### Refer to report for performing lab Bilirubin Ql (U) Negative Invalid Interpretation Code Negative [facility] Comment on above: Order Comment: Testi ng performed at: [] [facility], [address] [place] [address], [address], , Senior Enlisted Advisor: Tres Cm, PhD Performed By: #### C 121, C301, C406, C4176, C116, C48, C8, C45, C400, C115 #### Refer to report for performing lab Color (U) Yellow Invalid Interpretation Code Yellow [facility] Comment on above: Order Comment: Testi ng performed at: [] [address], [address], , Senior Enlisted Advisor: Tres Cm, PhD Performed By: #### C 121, C301, C406, C4176, C116, C48, C8, C45, C400, C115 #### Refer to report for performing lab Glucose Ql (U) 2+ Abnormal Negative [facility] Comment on above: Order Comment: Testi ng performed at: [] [facility], [address] [place] [address], [address], , Senior Enlisted Advisor: Tres Cm, PhD Performed By: #### C 121, C301, C406, C4176, C116, C48, C8, C45, C400, C115 #### Refer to report for performing lab Ketones Ql (U) Negative Invalid Interpretation Code Negative [facility] Comment on above: Order Comment: Testi ng performed at: [] [facility], [address] [place] [address], [address], , Senior Enlisted Advisor: Tres Cm, PhD Performed By: #### C 121, C301, C406, C4176, C116, C48, C8, C45, C400, C115 #### Refer to report for performing lab Microscopic Examination See below: Invalid Interpretation Code [facility] Comment on above: Order Comment: Testi ng performed at: [] [facility], [address] [place] [address], [address], , Senior Enlisted Advisor: Tres Cm, PhD Result Comment: Micr oscopic was indicated and was performed. Performed By: #### C 121, C301, C406, C4176, C116, C48, C8, C45, C400, C115 #### Refer to report for performing lab Nitrite, Urine Negative Invalid Interpretation Code Negative [facility] Comment on above: Order Comment: Testi ng performed at: [] [facility], [address] [place] [address], [address], , Senior Enlisted Advisor: Tres Cm, PhD Performed By: #### C 121, C301, C406, C4176, C116, C48, C8, C45, C400, C115 #### Refer to report for performing lab Occult Blood Negative Invalid Interpretation Code Negative [facility] Comment on above: Order Comment: Testi ng performed at: [] [facility], [address] [place] [address], [address], , Senior Enlisted Advisor: Tres Cm, PhD Performed By: #### C 121, C301, C406, C4176, C116, C48, C8, C45, C400, C115 #### Refer to report for performing lab pH (U) 6.5 [pH] Invalid Interpretation Code 5.0-7.5 [facility] Comment on above: Order Comment: Testi ng performed at: [] [facility], [address] [place] [address], [address], , Senior Enlisted Advisor: Tres Cm, PhD Performed By: #### C 121, C301, C406, C4176, C116, C48, C8, C45, C400, C115 #### Refer to report for performing lab Protein Ql (U) Negative Invalid Interpretation Code Negative/T race [facility] Comment on above: Order Comment: Testi ng performed at: [] [facility], [address] [place] [address], [address], , Senior Enlisted Advisor: Tres Cm, PhD Performed By: #### C 121, C301, C406, C4176, C116, C48, C8, C45, C400, C115 #### Refer to report for performing lab Specific gravity (U) [Rel density] 1.024 Invalid Interpretation Code 1.005-1.03 0 [facility] Comment on above: Order Comment: Testi ng performed at: [] [facility], [address] [place], [address], , Senior Enlisted Advisor: Tres Cm, PhD Performed By: #### C 121, C301, C406, C4176, C116, C48, C8, C45, C400, C115 #### Refer to report for performing lab Urobilinogen,Semi-Qn 1.0 mg/dL Invalid Interpretation Code 0.2-1.0 [facility] Comment on above: Order Comment: Testi ng performed at: [] [facility], [address] [place] [address], [address], , Senior Enlisted Advisor: Tres Cm, PhD Performed By: #### C 121, C301, C406, C4176, C116, C48, C8, C45, C400, C115 #### Refer to report for performing lab WBC Esterase Negative Invalid Interpretation Code Negative [facility] Comment on above: Order Comment: Testi ng performed at: [] [facility], [address] [place] [address], [address], , Senior Enlisted Advisor: Tres Cm, PhD Performed By: #### C 121, C301, C406, C4176, C116, C48, C8, C45, C400, C115 #### Refer to report for performing lab Urine, Random, Albumin/Crea (COPC)on 11-21-2022 Alb/Creat Ratio 8 mg/g creat Invalid Interpretation Code 0-29 [facility] Comment on above: Order Comment: Testi ng performed at: [] [facility], [address] [place] [address], [address], , Senior Enlisted Advisor: Tres Cm, PhD Result Comment: Norm al: 0 - 29 Moderately increased: 30 - 300 Severely increased: >300 Performed By: #### C 121, C301, C406, C4176, C116, C48, C8, C45, C400, C115 #### Refer to report for performing lab Albumin, Urine 8.1 ug/mL Invalid Interpretation Code Not Estab. [facility] Comment on above: Order Comment: Testi ng performed at: [] [facility], [address] [place] [address], [address], , Senior Enlisted Advisor: Tres Cm, PhD Performed By: #### C 121, C301, C406, C4176, C116, C48, C8, C45, C400, C115 #### Refer to report for performing lab Creatinine, Urine 102.1 mg/dL Invalid Interpretation Code Not Estab. [facility] Comment on above: Order Comment: Testi ng performed at: [] [facility], [address] [place] [address], [place], [address], , Senior Enlisted Advisor: Tres Cm, PhD Performed By: #### C 121, C301, C406, C4176, C116, C48, C8, C45, C400, C115 #### Refer to report for performing lab Urinalysis and Microscopic w / Rfx to Cx ([facility])on 11-20-2022 Microscopic Examination Comment Normal [facility] Comment on above: Order Comment: Testi ng performed at: [] [facility], [address] [place] [address], [address], , Senior Enlisted Advisor: Tres Cm, PhD Result Comment: Micr oscopic follows if indicated. Performed By: #### C 121, C301, C406, C4176, C116, C48, C8, C45, C400, C115 #### Refer to report for performing lab Urinalysis Reflex Comment Normal [facility] Comment on above: Order Comment: Testi ng performed at: [] [facility], [address] [place] [address], [address], , Senior Enlisted Advisor: Tres Cm, PhD Result Comment: This specimen [...] Self Edit Transcribed Date: 11/17/2022 08:37 Normal [facility] XR Abdomen Single viewon No radiographic evidence for renal stone. -------- FINAL REPORT -------- Dictated By: Mars Ortega Dictated Date: 11/17/2022 08:37 Assigned Physician: Mars Ortega Reviewed and Electronically Signed By: Mars Ortega Signed Date: 11/17/2022 08:39 Workstation ID: [id number] Transcribed By: Self Edit Transcribed Date: 11/17/2022 08:37 [facility]E EXAMINATION TYPE: XR ABDOMEN 1 VIEW DATE [...] By: Self Edit Transcribed Date: 11/17/2022 08:37 [facility] Radiology Study observation (narrative) [facility] XR Abdomen Single viewOrdere d By: Mars Ortega on 11-17-2022 [facility] Work Phone: EGCristóbal 10-27-2022 Esophagogastroduodenosc opy [facility] Patient Name: Leon Rider Procedure Date: [...] The patient tolerated the procedure well. Findings: Marble-colored mucosa was present. Biopsied during prior EGD. [...] was normal. Procedure Code(s): --- Professional --- 31891, Esophagogastroduodenosc opy, flexible, transoral; with band ligation of esophageal/gastric varices Diagnosis Code(s): --- Professional --- K22.8, Other specified diseases of esophagus I85.00, Esophageal varices without bleeding K76.6, Portal hypertension K31.89, Other diseases of stomach and duodenum K31.819, Angiodysplasia of stomach and duodenum without bleeding CPT copyright 2020 [employer]. All rights reserved. The codes documented in this report are preliminary and upon favor maker review may be revised to meet current compliance requirements. DO SUSANA Martinez DO 10/27/2022 5:51:19 PM This report has been signed electronically. Number of Addenda: 0 Estimated Blood Loss: Estimated blood loss was minimal. Total Procedure Duration Time 0 hours 9 minutes [address] [place] [address] IMPRESSION: - Marble-colored mucosa suspicious for Osborn's esophagus. - Grade [...] as pr (more content not included)... Normal [facility] EGD Anesthesia - [facility] [place] JUDIT Matamoros NDOSCOPYon 10-27-2022 - Marble-colored muc saúl suspicious for Osborn's esophagus. - [...] previously scheduled. - Discharge patient to home. [facility] GI Patient Name: Leon Rider [...] The patient tolerated the procedure well. Findings: Marble-colored mucosa was present. Biopsied during prior EGD. [...] was normal. Procedure Code(s): --- Professional --- 36929, Esophagogastroduodenosc opy, flexible, transoral; with band ligation of esophageal/gastric varices Diagnosis Code(s): --- Professional --- K22.8, Other specified diseases of esophagus I85.00, Esophageal varices without bleeding K76.6, Portal hypertension K31.89, Other diseases of stomach and duodenum K31.819, Angiodysplasia of stomach and duodenum without bleeding CPT copyright 2020 [employer]. All rights reserved. The codes documented in this report are preliminary and upon favor maker review may be revised to meet cur (more content not included)... [facility] Susana Leblanc DO - 10/27/2022 [facility] Patient Name: Leon Rider Procedure Date: [...] The patient tolerated the procedure well. Findings: Marble-colored mucosa was present. Biopsied during prior EGD. [...] was normal. Procedure Code(s): --- Professional --- 07693, Esophagogastroduodenosc opy, flexible, transoral; with band ligation of esophageal/gastric varices Diagnosis Code(s): --- Professional --- K22.8, Other specified diseases of esophagus I85.00, Esophageal varices without bleeding K76.6, Portal hypertension K31.89, Other diseases of stomach and duodenum K31.819, Angiodysplasia of stomach and duodenum without bleeding CPT copyright 2020 [employer]. All rights reserved. The codes documented in this report are preliminary and upon favor maker review may be revised to meet current compliance requirements. DO SUSANA Martinez DO 10/27/2022 5:51:19 PM This report has been signed electronically. Number of Addenda: 0 Estimated Blood Loss: Estimated blood loss was minimal. Total Procedure Duration Time 0 hours 9 minutes [address] [place] [address] IMPRESSION: - Marble-colored mucosa suspicious for Osborn's esophagus. - Grade [...] Continue present medicati (more content not included)... [email or web address] (narrative) [employer] ([facility]) Glucose Auto test strip (Bld ) [Mass/Vol]on 10-27-2022 Glucose [Mass/Vol] 102 mg/dL High 70-99 [facility] Comment on above: Performed By: #### 2 340-8 #### [facility] [address] [place] [address] Glucose [Mass/Vol] 102 mg/dL High 70 - 99 mg/dL [facility] Interpretation and review of laboratory results Abnormal [facility] US ABDOMEN LIMITEDon US ABDOMEN LIMITED EXAMINATION [...] Self Edit Transcribed Date: 09/02/2022 08:06 Normal [facility] US Abdomen Limitedon 1. Cirrhotic hepatic [...] By: Self Edit Transcribed Date: 09/02/2022 08:06 [employer] EXAMINATION TYPE: US ABDOMEN LIMITED DATE OF [...] mm. No right-sided hydronephrosis is demonstrated. POWERSCRIBE iSn Maya MD - 09/02/2022 EXAMINATION TYPE: US [...] By: Self Edit Transcribed Date: 09/02/2022 08:06 [facility] [facility] Radiology Study observation (narrative) Gia [facility] US Abdomen LimitedOrdered By : Sin Maya on 09-02-2022 [employer] Work Phone: ECG 12 leadon 04-14-2022 P Wave [place] 69 degrees [facility] Interval 164 ms [facility] Pathologist interpretation (Bld) [Interp] Sinus tachycardia Nonspecific T wave abnormality Abnormal ECG Confirmed by Susana Valdes MD ([id number]), supervising film or videotape editor Donvaon Simmons ([id number]) on 04/14/2022 7:53:39 AM [facility] Interval 374 ms [facility] QRS Duration 82 ms [facility] QTc 484 ms [facility] R [place] 20 degrees [facility] Troponin T.cardiac [Mass/Vol] 35 ug/L degrees [facility] - Coagulationon 0 04-14-2022 ACT Coag (Bld) 101 s BPM [facility] Transthoracic echocardiogram (TTE) complete with PRN contrast, bubble, strain, and 3D order panelOrdered By: Jonas Baker on 04-14-2022 Ao VTI 32.6 cm [employer] Work Phone: Aortic Valve Cusp Separation mMode 1.7 cm [employer] Work Phone: Ascending Aorta 3.7 cm [employer] Work Phone: AV Mean Gradient 7 mmHg [employer] Work Phone: AV Peak Gradient 14 mmHg [employer] Work Phone: AV Peak Berhane 1.9 m/s [employer] h Work Phone: AV Velocity Ratio 0.84 [employer] Work Phone: Body surface area Derived from formula 2.89 m2 [facility] Work Phone: E Wave Deceleration Time 132 ms 119 - 242 ms [facility] Work Phone: E/E' Ratio Averaged 11 Tayla ty [facility] Work Phone: E/E' Ratio Lateral 10 [facility] Work Phone: E/E' Ratio Septal 12 [facility] Work Phone: Ejection Fraction (A2C) 54 % [facility] [employer] Work Phone: Ejection Fraction (A4C) 66 % T [facility] Work Phone: Ejection Fraction (BP) 57 % Tr [facility] Work Phone: Est. RA Pressure 3 mmHg [facility] Work Phone: FS 43 % [facility] Work Phone: Interpretation and review of laboratory results Abnormal [facility] Work Phone: IVSD 1.0 cm 0.6 - 1.0 cm [facility] Work Phone: LA Area Sys (A2C) 17 cm2 [facility] Work Phone: LA Area Sys (A4C) 27 cm2 [facility] Work Phone: LA Volume (BP) 56 mL [facility] Work Phone: LA Volume Index (BP) 21 mL/m2 [facility] Work Phone: Left Atrium Major [place] 7.4 cm Tr [facility] Work Phone: Left Atrium Minor [place] 6.6 cm [facility] Work Phone: LV Diastolic Volume (BP) 167 mL Abnormal 62 - 150 mL [facility] Work Phone: LV Diastolic Volume Index (BP) 61 mL/m2 [facility] [employer] Work Phone: LV EDV (A2C) 171 mL [facility] Work Phone: LV EDV (A4C) 160 mL [facility] [employer] Work Phone: LV EDV Index (A2C) 63 mL/m2 [facility] Work Phone: LV EDV Index (A4C) 59 mL/m2 [facility] Work Phone: LV ESV (A2C) 79 mL [facility] Work Phone: LV ESV (A4C) 55 mL [facility] Work Phone: LV ESV Index (A2C) 29 mL/m2 [facility] Work Phone: LV ESV Index (A4C) 20 mL/m2 [employer] [facility] Work Phone: LV Mass 2D 218 g [employer] Work Phone: LV Mass Index 2D 80 g/m2 [employer] Work Phone: LV Systolic Volume (BP) 72 mL Abnormal 21 - 61 mL [facility] [employer] Work Phone: LV Systolic Volume Index (BP) 26 mL/m2 [employer] Work Phone: LVIDD 5.8 cm 4.2 - 5.8 cm [employer] Work Phone: LVIDD Index 2.12 cm/m2 [employer] Work Phone: LVIDS 3.3 cm 2.5 - 4.0 cm [employer] Work Phone: LVIDS Index 1.21 cm/m2 [employer] Work Phone: LVOT Mean Grad [address] [facility] Work Phone: LVOT Mean [place] 1.2 m/s [facility] Work Phone: LVOT Peak Gradient 10 mmHg [facility] Work Phone: LVOT Peak [place] 1.6 m/s [facility] Work Phone: LVOT Peak VTI 33.2 cm [employer] Work Phone: LVOT:AV VTI Index 1.02 [employer] Phone: LVPWD 0.9 cm 0.6 - 1.0 cm [employer] Phone: Microscopic observation Hans (Ear) [Interp] 1.0 [employer] [facility] h Work Phone: MV E' Tissue Velocity Lateral 14 cm/s [employer] Phone: MV E' Tissue Velocity Septal 11 cm/s [employer] Phone: MV Peak A [place] 1.31 m/s [employer] Work Phone: MV Peak E [place] 1.33 m/s [employer] Work Phone: Relative Wall Thickness ratio 0.31 [employer] Phone: RV Diastolic Basal Dimension 3.4 cm 2.5 - 4.1 cm [employer] Phone: RV Diastolic Length 8.9 cm Abnormal 5.9 - 8. 3 cm [employer] Phone: RV Diastolic Mid Dimension 3.0 cm 1.9 - 3.5 cm [employer] Phone: [employer] Phone: Transthoracic echocardiogram (TTE) complete with PRN [...] panelon 04-13-2022 Anion gap [Moles/Vol] 11 mmol/L [facility] [employer] Calcium [Mass/Vol] 9.1 mg/dL 8.9 - 10. 3 mg/dL [employer] Chloride [Moles/Vol] 99 mmol/L 98 - 10 7 mmol/L [employer] CO2 [Moles/Vol] 23 mmol/L 22 - 32 mmol/L [employer] Creatinine [Mass/Vol] 0.68 mg/dL 0.60 - 1.30 mg/dL [employer] GFR/1.73 sq M.predicted MDRD (S/P/Bld) [Vol rate/Area] 117 mL/min/{1.73_m2} mL/min/1.7 3m2 [employer] Glucose [Mass/Vol] 94 mg/dL 70 - 99 mg/dL [employer] Interpretation and review of laboratory results Abnormal [employer] Potassium [Moles/Vol] 4.1 mmol/L 3.6 - 5.1 mmol/L [employer] Sodium [Moles/Vol] 133 mmol/L Low 136 - 145 mmol/L [employer] Urea nitrogen [Mass/Vol] 9 mg/dL 8 - 20 mg/dL [employer] Urea nitrogen/Creatinine [Mass ratio] 13.2 mg/mg [employer] CT Angio Chest wo and/or w C [facility] 04-13-2022 Initial injection wa s suboptimal [...] By: Self Edit Transcribed Date: 04/13/2022 17:31 [facility] EXAMINATION TYPE: CT ANGIO CHEST WO AND/OR [...] dissection. Motion artifact at the aortic root. [facility] LabsCR[facility]E Tanmay Vicente MD - 04/13/2022 EXAMINATION TYPE: [...] By: Self Edit Transcribed Date: 04/13/2022 17:31 [employer] Fibrin D-dimer DDU (PPP) [Ma ss/Vol]on 04-13-2022 Fibrin D-dimer FEU (PPP) [Mass/Vol] 0.51 High <0.50 mcg/mL FEU [employer] Comment on above: Cutoff 0.49 mcg/ml F EU At this cutoff level, the negative predictive value for this test is 100% for deep vein thrombosis (DVT) in patients with a low or moderate pre-test probability and 99.7% for pulmonary embolism (PE) in patients with a low or moderate pre-test probability. Clinical correlation is essential. Interpretation and review of laboratory results Abnormal [employer] Hemogram and platelets WO di fferential panel (Bld)Ordered By: Silke Cronin on 04-13-2022 Basophils (Bld) [#/Vol] 0.00 10*3/uL [employer] Basophils/100 WBC (Bld) 0.8 % 0.0 - 2.0 % [employer] Eosinophils (Bld) [#/Vol] 0.20 10*3/uL [employer] Eosinophils/100 WBC (Bld) 4.1 % 0.0 - 7.0 % [employer] Erythrocyte distribution width (RBC) [Ratio] 16.6 % High 11.0 - 14.8 % [employer] Hematocrit (Bld) [Volume fraction] 40.8 % 39.0 - 49.0 % [employer] Hemoglobin (Bld) [Mass/Vol] 13.6 g/dL 13.5 - 17.5 g/dL [employer] Interpretation and review of laboratory results Abnormal [employer] Lymphocytes (Bld) [#/Vol] 0.80 10*3/uL Low [facility] Lymphocytes/100 WBC (Bld) 17.5 % Low 22.0 - 44.0 % [facility] MCH (RBC) [Entitic mass] 30.1 pg [facility] MCHC (RBC) [Mass/Vol] 33.3 g/dL 32.0 - 36.0 g/dL [facility] MCV (RBC) [Entitic vol] 90.4 fL T [facility] Monocytes (Bld) [#/Vol] 0.50 10*3/uL [facility] Monocytes/100 WBC (Bld) 12.3 % 4.0 - 23.0 % [facility] Neutrophils (Bld) [#/Vol] 2.90 10*3/uL [facility] Neutrophils/100 WBC (Bld) 65.3 % 40.0 - 70.0 % [facility] Platelet mean volume (Bld) [Entitic vol] 8.6 fL [facility] th Platelets (Bld) [#/Vol] 71 10*3/uL Low T [facility] Comment on above: Results confirmed by slide review. RBC (Bld) [#/Vol] 4.51 10*6/uL [facility] WBC (Bld) [#/Vol] 4.5 10*3/uL Low [facility] Magnesiumon 04-13-2022 Magnesium [Mass/Vol] 1.8 mg/dL 1.8 - 2 .5 mg/dL [facility] Magnesium [Mass/Vol]on 04-13 Interpretation and review of laboratory results Normal [facility] No Panel Informationon 04-13 [facility] SARS-CoV-2 (COVID-19) RNA NA A+probe Ql (Resp)on 04-13-2022 Interpretation and review of laboratory results Normal [facility] SARS-CoV-2 (COVID-19) RdRp gene CHARLIE+probe Ql (Resp) Not detected Not Detected [facility] Tropinin I.cardiac panel Hig h sensitivity methodon 04-13-2022 Interpretation and review of laboratory results Abnormal [facility] Troponin I.cardiac High sensitivity method [Mass/Vol] 22 ng/L High <20 [facility] Interpretation and review of laboratory results Abnormal [facility] Troponin I.cardiac High sensitivity method [Mass/Vol] 21 ng/L High <20 [facility] Interpretation and review of laboratory results Normal [facility] Troponin I.cardiac High sensitivity method [Mass/Vol] 16 ng/L <20 [facility] XR Chest 2 Viewson Nonacute study. -------- [...] By: Self Edit Transcribed Date: 04/13/2022 15:12 [facility] Radiology Study observation (narrative) [facility] XR Chest 2 ViewsOrdered By: Tanmay Vicente on 04-13-2022 [employer] Work Phone: XR Abdomen Single viewon No [...] Self Edit Transcribed Date: 03/25/2022 12:41 [employer] Radiology Study observation (narrative) [employer] XR Abdomen Single viewOrdere d By: Jean Carlos Monroy on 03-25-2022 [employer] Work Phone: XR ABDOMEN /KUB/FLAT PLATE/1 VIEWon [...] Sat Mar 13, 2022 7:24:20 PM EDT [facility] Comment on above: Order Comment: [...] Nom (Bld) Blood group B Rh(D) positive [facility] ABO and Rh group Nom (Bld) ABO/Rh Verification [facility] Comment on above: Patient's ABO/Rh is verified. [facility] APTTOrdered By: Sukhwinder Villalobos on 04-22-2021 aPTT Coag (Bld) [Time] 33 s [facility] Basic metabolic 2000 panelOr dered By: Sukhwinder Villalobos on 04-22-2021 Anion gap [Moles/Vol] 16 mmol/L 10 - 2 0 mmol/L [facility] Calcium [Mass/Vol] 8.9 mg/dL 8.4 - 10. 2 mg/dL [facility] Chloride [Moles/Vol] 102 mmol/L 98 - 10 8 mmol/L [facility] Creatinine [Mass/Vol] 0.52 mg/dL 0.50 - 1.30 [facility] GFR/1.73 sq M.predicted CKD-EPI (S/P/Bld) [Vol rate/Area] 132 >=60 mL/min/1.7 3 m2 [facility] Glucose [Mass/Vol] 106 mg/dL High 65 - 99 mg/dL [facility] HCO3 [Moles/Vol] 24 mmol/L 21 - 32 mmol/L [facility] Interpretation and review of laboratory results Abnormal [facility] Potassium [Moles/Vol] 4.2 mmol/L 3.5 - 5.1 mmol/L [facility] Sodium [Moles/Vol] 138 mmol/L 135 - 145 mmol/L [facility] Urea nitrogen [Mass/Vol] 8 mg/dL 8 - 25 mg/dL [facility] Urea nitrogen/Creatinine [Mass ratio] 15.4 mg/mg [facility] The eGFR should be u sed for monitoring renal function only and not for medication dosing. [facility] Blood type and Indirect anti body screen panel (Bld)Ordered By: Sukhwinder Villalobos on 04-22-2021 ABO and Rh group Nom (Bld) Blood group B Rh(D) positive [facility] Blood group antibody screen Ql Negative [facility] Specimen Expires 04/25/2021 23:59 EST [facility] CBC WITH AUTO DIFFERENTIALOr dered By: Sukhwinder Villalobos on 04-22-2021 Basophils (Bld) [#/Vol] 0.08 10*3/uL [facility] Basophils/100 WBC (Bld) 1.8 % [facility] Eosinophils (Bld) [#/Vol] 0.29 10*3/uL [facility] Eosinophils/100 WBC (Bld) 6.4 % [facility] Erythrocyte distribution width (RBC) [Entitic vol] 15.5 % High 11.6 - 14.8 % [facility] Hematocrit (Bld) [Volume fraction] 43.8 % 41.0 - 53.0 % [facility] Hemoglobin (Bld) [Mass/Vol] 14.2 g/dL 13.5 - 17.5 g/dL [facility] Immature granulocytes (Bld) [#/Vol] 0.02 10*3/uL [facility] Immature granulocytes/100 WBC (Bld) 0.40 % [facility] Comment on above: The IG parameter is the percentage of metamyelocytes, myelocytes and promyelocytes. An immature granulocyte count (IG) of 1% or more suggests the possibility of infection, an IG count of 3% is very likely related to an infection. Interpretation and review of laboratory results Abnormal [facility] Lymphocytes (Bld) [#/Vol] 1.19 10*3/uL [facility] Lymphocytes/100 WBC (Bld) 26.2 % [facility] MCH (RBC) [Entitic mass] 30.1 pg 26.0 - 34.0 pg [facility] MCHC (RBC) [Mass/Vol] 32.4 g/dL 31.0 - 37.0 g/dL [facility] MCV (RBC) [Entitic vol] 93.0 fL 80.0 - 100.0 fL [facility] Monocytes (Bld) [#/Vol] 0.76 10*3/uL [facility] Monocytes/100 WBC (Bld) 16.7 % [facility] Neutrophils (Bld) [#/Vol] 2.20 10*3/uL [facility] Neutrophils/100 WBC (Bld) 48.5 % [facility] Nucleated RBC (Bld) [#/Vol] 0.00 10*3/uL [facility] Nucleated RBC/100 WBC (Bld) [Ratio] 0.0 % [facility] Platelet mean volume (Bld) [Entitic vol] 10.6 fL 9.4 - 12.4 fL [facility] Platelets (Bld) [#/Vol] 78 10*3/uL Low [facility] Comment on above: Results checked RBC (Bld) [#/Vol] 4.71 10*6/uL [facility] WBC (Bld) [#/Vol] 4.54 10*3/uL [facility] Glucose (Bld) [Mass/Vol]Orde red By: Sukhwinder Villalobos on 04-22-2021 Glucose [Mass/Vol] 102 mg/dL High 65 - 99 mg/dL [facility] Interpretation and review of laboratory results Abnormal [facility] Glucose [Mass/Vol] 100 mg/dL High 65 - 99 mg/dL [facility] Interpretation and review of laboratory results Abnormal [facility] INR Coag (PPP) [Relative abdulkadir e]Ordered By: Sukhwinder Villalobos on 04-22-2021 Interpretation and review of laboratory results Abnormal [facility] PT Coag (PPP) [Time] 15.2 s High [facility] During the induction phase of oral anticoagulation, the INR may not reflect the anticoagulation status of the patient. Therapeutic ranges for INR's are: Most clinical situations: INR 2.0-3.0 Mechanical Prosthetic Valve: INR 2.5-3.5 Critical: INR >5.0 [facility] No Panel InformationOrdered By: Sukhwinder Villalobos on 04-22-2021 [facility] PT/INROrdered By: Sukhwinder berg on 04-22-2021 INR Coag (PPP) [Relative time] 1.2 {INR} High [facility] SCAN OTHER ORDERSOrdered By: Provider System on 04-22-2021 Ordered by an unspecified provider. [facility] aPTT Coag (Bld) [Time]Ordere d By: Sukhwinder Villalobos on 04-22-2021 Interpretation and review of laboratory results Normal [facility] Therapeutic range fo r APTT's is 68 - 104 seconds [facility] US ABDOMEN LIMITED STUDYon 0 03-20-2021 [...] contour. Findings raise suspicion for possible cirrhosis. [facility] Workstation ID: [id number] Dictated by: MAURO ZEE on TueMarch 20, 2021 8:18:33 AM EDT Transcribed by: ROMY MOE on TueMarch 20, 2021 8:19:53 AM EDT Finalized by: MAURO ZEE on Sun March 22, 2021 10:22:[address] [facility] Comment on above: Order Comment: Injur y/Trauma or Illness?:Illness/Other How long have you had these symptoms (acute/chronic)?:Chronic Reason for exam?:Abdominal bloating History of cancer?: Surgeries, chemotherapy, or radiation?: Type of Exam?:Initial Additional signs and symptoms?:History of fatty liver disease with possible cirrhosis per patient Alpha Fetoprotein Tumor Elieser rian 12-24-2020 AFP.tumor marker [Mass/Vol] 2.4 ng/mL Normal 0.0-9.0 [facility] Comment on above: Result Comment: REFE [...] method. Performed By: #### 5 [id number] #### [facility] [address] [place] [address] US Abdomen Ltdon 10-14-2020 US Abdomen limited [...] hepatic morphology. 2. Nonvisualization of the pancreas. [facility] thanks you for the opportunity to care for your patient. Workstation ID: [id number] FINAL REPORT Dictated By: Rudi Joshi MD 10/14/2020 11:22 Assigned Physician: Rudi Joshi MD Reviewed and Electronically Signed By: Rudi Joshi MD 10/14/2020 11:24 Transcribed by: NIMO 10/14/2020 11:22 Normal [facility] Glucose POCT (Uploaded)on Glucose [Mass/Vol] 87 mg/dL Normal 70-99 [facility] Comment on above: Result Comment: Samantha tment ranges and critical values established by Patient Care Services. All follow-up actions were taken by Patient Care Services. Performed By: #### 2 430-8 #### [facility] POINT OF CARE OR Nursingon 06-26-2020 OR Nursing CO MCE Endo OR Nursi ng Record Summary Primary Physician: Dandy Healy MD Finalized Date/Time: 06/26/20 14:21:15 Pt. Name: LEON RIDER Jose June/Sex: 1980 Male Med Rec #: [id number] Physician: Financial #: [id number] Pt. 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 Time In 06/26/20 13:58:00 Time Out 06/26/20 14:13:00 Procedure Egd with Biopsy_(N/A) Attendee Comment Relief Reason Last Modified By: Lani Villareal RN 06/26/20 14:20:23 CO MCE Endo General Case Laryngologist 1 OR CO E EN 04 ASA [...] By: Lani Villareal RN 06/26/20 14:21 Normal [facility] Patient Summaryon 06-26-2020 Patient Summary PATIENT DISCHARGE INSTRUCTIONS If you are having an emergency and are not able to reach your physician, CALL 911 or go to the nearest emergency room and take this document with you. [facility] 06/26/20 14:28 [address] [place]. [address] PATIENT INFORMATION Name: LEON RIDER Address: [address] [place] [address] [place] [address] Age: 40 Years Phone: [phone] : 1980 12:00 MRN: [id number] Sex: Male Race: White Ethnicity: Not Hispan/Lat Admitted From: Clinic or [facility] Medical Service: Gastroenterology Nurse Unit[facility]Bed: ([place] N/A Admit Date: 06/26/2020 12:03 PCP: Musa CARPIO , Zack Randolph PHYSICIANS INVOLVED WITH CARE -- Attending Physicians: [...] doses are changed, or new medications (including dxap-mde-jnjqbrg products) are added. Ask your doctor if [...] suicide hotline, anytime day or night, at 5-810-932-LEAV. Important information about accessing your health information through the [facility] [employer] patient portal If you initiated the self-registration process for [employer] during your stay, please check your personal email for an invitation to enroll in [employer] and complete the steps outlined in the email. If you would prefer to enroll while in the hospital, ask a member of your care team. We would be happy to assist you. If you have already enrolled in [employer], go to [email or web address] state hospitalStartup [email or web address] to login and access your health information. Thank you for choosing [facility] [employer]. PATIENT EDUCATION PATIENT DISCHARGE INSTRUCTION Signature Page for: LEON RIDER Date/Time: 06/26/2020 14:28:21 A Clinician has explained the information on my discharge instructions and has provided me with a copy. My questions have been answered to my satisfaction. Patient Signature Date/Time Responsible Party Date/Time Relationship to Patient ____ Clinician Signature Date/Time Normal [facility] Post PACU Nursingon 06-26-20 Post PACU Nursing CO [facility] Endo PACU Nursing Record Summary Primary Physician: Dandy Healy MD Finalized Date/Time: 06/26/20 15:04:08 Pt. Name: LEON RIDER Jose June/Sex: 1980 Male Med Rec #: [id number] Physician: Financial #: [id number] Pt. Type: I Room/Bed: / Admit/Disch: 06/26/20 [...] 15:03 Lani Villareal RN 06/26/20 15:04 Normal [facility] PreOp Nursingon 06-26-2020 PreOp Nursing CO MCE Endo PreOp Nursing Record Summary Primary Physician: Dandy Healy MD Finalized Date/Time: 06/26/20 15:07:13 Pt. Name: LEON RIDER /Sex: 1980 Male Med Rec #: [id number] Physician: Financial #: [id number] Pt. Type: I Room/Bed: / Admit/Disch: 06/26/20 [...] By: Angelic Enrique RN 06/26/20 15:07 Normal [facility] Surgical Pathology Final Rep [facility] 06-26-2020 Pathology study LEON RIDER [id number] [id number] M [id number] RM/BD ORDERING PHYSICIAN: DANDY HEALY RESULT TRANSMITTED: [...] cassette. (ES/1C/MS/RT-BAG) Gross examination was performed at [facility]. AJB:SK 06/26/20 By: GERRY REYNA M.D. AT [facility] (Electronic Signature) MICROSCOPIC: The technical component was performed at [facility], [address] [place] [address]. Microscopic examination was performed. Case resulted at [facility]. The immunohistochemical and/or in situ hybridization tests reported here have been developed and their performance characteristics determined by the [facility] [address] [place] [address]. It has not been cleared or approved [...] - NO HELICOBACTER PYLORI (CONFIRMED BY IMMUNOSTAIN). MJ2:MJ2:MJ208/14/20 END OF REPORT END OF REPORT Normal [facility] Coronavirus (COVID-19/SARS-C oV-2) [facility] 06-23-2020 SARS-CoV-2 NOTDET Normal NOTDET [facility] Comment on above: Result Comment: This test was performed via the [employer] SARS-CoV-2 Assay ([employer] System) and has been authorized by the FDA under an Emergency Use Authorization (EUA). The assay is validated for nasopharyngeal (VULCANIZER OPERATOR), nasal, and oropharyngeal (OP) swab specimens. The cafeteria helper's stated Limit of Detection is 0.01 TCID50/mL [...] www.cdc.gov/coronavirus. Performed By: #### 9 [id number] #### [facility] [address] [place], [place] [id number] Alpha Fetoprotein Tumor Elieser rian 06-18-2020 AFP.tumor marker [Mass/Vol] 3.2 ng/mL Normal 0.0-9.0 [facility] Comment on above: Result Comment: REFE [...] immunoassay method. Performed By: #### 5 3962-7 ####[facility] [address] [place] [place] [id number] CBC with Differentialon 08-0 5-2020 Basophils (Bld) [#/Vol] 0.00 thou/mcL Normal 0.00-0.20 [facility] Comment on above: Performed By: #### 5 7021-8 #### [facility] [address] [place] [address] 09614 Basophils/100 WBC (Bld) 0.5 % Normal 0.0-2.0 [facility] Comment on above: Performed By: #### 5 7021-8 #### [facility] [address] [place] [address] 11180 Eosinophils (Bld) [#/Vol] 0.30 thou/mcL Normal 0.00-0.70 [facility] Comment on above: Performed By: #### 5 7021-8 #### [facility] [address] [place] [address] 13941 Eosinophils/100 WBC (Bld) 5.5 % Normal 0.0-7.0 [facility] Comment on above: Performed By: #### 5 7021-8 #### [facility] [address] [place] [address] 10045 Erythrocyte distribution width (RBC) [Entitic vol] 17.1 % High 11.0-14.8 [facility] Comment on above: Performed By: #### 5 7021-8 #### [facility] [address] [place] [address] 05445 Hematocrit (Bld) [Volume fraction] 42.0 % Normal 39.0-49.0 [facility] Comment on above: Performed By: #### 5 7021-8 #### [facility] [address] [place] [address] 08078 Hemoglobin (Bld) [Mass/Vol] 14.0 g/dL Normal 13.5-17.5 [facility] Comment on above: Performed By: #### 5 7021-8 #### [facility] [address] [place] [address] 66013 Lymphocytes (Bld) [#/Vol] 1.10 thou/mcL Normal 1.00-4.80 [facility] Comment on above: Performed By: #### 5 7021-8 #### [facility] [address] [place] [address] 34672 Lymphocytes/100 WBC (Bld) 24.2 % Normal 22.0-44.0 [facility] Comment on above: Performed By: #### 5 7021-8 #### [facility] [address] [place] [address] 43107 MCH (RBC) [Entitic mass] 29.7 Picograms Normal 27.0-34.0 [facility] Comment on above: Performed By: #### 5 7021-8 #### [facility] [address] [place] [address] 89218 MCHC (RBC) [Mass/Vol] 33.4 g/dL Normal 32.0-36.0 [facility] Comment on above: Performed By: #### 5 7021-8 #### [facility] [address] [place] [address] 04109 MCV (RBC) [Entitic vol] 88.8 fL Normal 80.0-97.0 [facility] Comment on above: Performed By: #### 5 7021-8 #### [facility] [address] [place] [address] 46381 Monocytes (Bld) [#/Vol] 0.90 thou/mcL Normal 0.00-0.90 [facility] Comment on above: Performed By: #### 5 7021-8 #### [facility] [address] [place] [address] 25273 Monocytes/100 WBC (Bld) 18.2 % High 0.0-12.0 [facility] Comment on above: Performed By: #### 5 7021-8 #### [facility] [address] [place] [address] 80733 Neutrophils (Bld) [#/Vol] 2.40 thou/mcL Normal 1.80-7.70 [facility] Comment on above: Performed By: #### 5 7021-8 #### [address] [address] Neutrophils/100 WBC (Bld) 51.6 % Normal 40.0-70.0 [facility] Comment on above: Performed By: #### 5 7021-8 #### [address] [address] Platelet mean volume (Bld) [Entitic vol] 9.9 fL Normal 6.2-12.1 [facility] Comment on above: Performed By: #### 5 7021-8 #### [address] [address] Platelets (Bld) [#/Vol] 76 thou/mcL Low 142-424 [facility] Comment on above: Result Comment: Resu lt confirmed by slide review. Performed By: #### 5 7021-8 #### [address] [address] RBC (Bld) [#/Vol] 4.72 million/mcL Normal 4.30-5.70 [facility] Comment on above: Performed By: #### 5 7021-8 #### [address] [address] WBC (Bld) [#/Vol] 4.7 thou/mcL Normal 4.6-10.2 [facility] Comment on above: Performed By: #### 5 7021-8 #### [facility] [address] [place] [address] Hepatic Function Panelon Albumin [Mass/Vol] 3.1 g/dL Low 3.5-4.8 [facility] Comment on above: Performed By: #### 2 4324-3 #### [facility] [address] [place] [address] ALP [Catalytic activity/Vol] 104 Units/L High 32-91 [facility] Comment on above: Performed By: #### 2 5-3 #### [facility] [address] [place] [address] ALT [Catalytic activity/Vol] 35 Units/L Normal 14-63 [facility] Comment on above: Performed By: #### 2 4324-3 #### [facility] [address] [place] [address] AST [Catalytic activity/Vol] 42 Units/L High 15-41 [facility] Comment on above: Performed By: #### 2 5-3 #### [facility] [address] [place] [address] Bilirubin [Mass/Vol] 1.2 mg/dL Normal 0.3-1.2 [facility] Comment on above: Performed By: #### 2 4324-3 #### [facility] [address] [place] [address] Bilirubin.direct [Mass/Vol] 0.3 mg/dL Normal 0.1-0.5 [facility] Comment on above: Performed By: #### 2 5-3 #### [facility] [address] [place] [address] Bilirubin.indirect [Mass/Vol] 0.9 mg/dL Normal 0.0-1.0 [facility] Comment on above: Performed By: #### 2 5-3 #### [facility] [address] [place] [address] Protein [Mass/Vol] 7.0 g/dL Normal 6.1-7.9 [facility] Comment on above: Performed By: #### 2 5-3 #### [facility] [address] [place] [address] Vital Signs Date Time Vital Sign Value Performing Clinician Facility 08-21-2025 20:46-0400 Body temperature 97.2 [degF] Alis Duran MD Work Phone: 0(564)088-217069 [place] [address] 08-21-2025 20:46-0400 Diastolic blood pressure 50 mm[Hg] Alis Duran MD Work Phone: 0(032)516-361469 [place] [address] 08-21-2025 20:46-0400 Heart rate 73 /min Alis Duran MD Work Phone: 2(030)292-049169 [place] [address] 08-21-2025 20:46-0400 Respiratory rate 18 /min Alis Duran MD Work Phone: 0(619)783-007569 [place] [address] 08-21-2025 20:46-0400 SaO2% (BldA) [Mass fraction] 98 % Alis Duran MD Work Phone: 4(836)957-263369 [place] [address] 08-21-2025 20:46-0400 Systolic blood pressure 109 mm[Hg] Alis Duran MD Work Phone: 0(863)171-749769 [place] [address] 08-21-2025 16:37-0400 Body mass index (BMI) [Ratio] 43.5 kg/m2 Alis Duran MD Work Phone: 7(440)822-558869 [place] [address] 08-21-2025 16:37-0400 Body weight 141.7 kg Alis Duran MD Work Phone: 2(588)722-765969 [place] [address] 08-21-2025 16:27-0400 Body height 180.34 cm Alis Duran MD Work Phone: 6(286)442-133569 [place] [address] 08-19-2025 14:48-0400 Body height 180.34 cm Alis Duran MD Work Phone: 9(772)667-919569 [place] [address] 08-19-2025 14:48-0400 Body mass index (BMI) [Ratio] 43.4 kg/m2 Alis Duran MD Work Phone: 3(320)735-196969 [place] [address] 08-19-2025 14:48-0400 Body temperature 98.6 [degF] Alis Duran MD Work Phone: 3(269)942-101127 [place] [address] 08-19-2025 14:48-0400 Body weight 141.23 kg Alis Duran MD Work Phone: 1(337)492-419869 [place] [address] 08-19-2025 14:48-0400 Diastolic blood pressure 68 mm[Hg] Alis Duarn MD Work Phone: 0(356)535-658869 [place] [address] 08-19-2025 14:48-0400 Heart rate 82 /min Alis Duran MD Work Phone: 9(941)524-829369 [place] [address] 08-19-2025 14:48-0400 Respiratory rate 18 /min Alis Duran MD Work Phone: 5(555)371-910469 [place] [address] 08-19-2025 14:48-0400 SaO2% (BldA) [Mass fraction] 95 % Alis Duran MD Work Phone: 2(977)604-823469 [place] [address] 08-19-2025 14:48-0400 Systolic blood pressure 116 mm[Hg] Alis Duran MD Work Phone: 8(841)442-940869 [place] [address] 08-12-2025 08:24-0400 Body height 180.34 cm Alis Duran MD Work Phone: 6(278)348-950469 [place] [address] 08-12-2025 08:24-0400 Body mass index (BMI) [Ratio] 44.9 kg/m2 Alis Duran MD Work Phone: 3(939)276-677469 [place] [address] 08-12-2025 08:24-0400 Body temperature 98.5 [degF] Alis Duran MD Work Phone: 7(414)617-579477 [address] 08-12-2025 08:24-0400 Body weight 146.08 kg Alis Duran MD Work Phone: 1(996)775-364169 [place] [address] 08-12-2025 08:24-0400 Diastolic blood pressure 66 mm[Hg] Alis Duran MD Work Phone: 3(261)033-744069 [place] [address] 08-12-2025 08:24-0400 Heart rate 78 /min Alis Duran MD Work Phone: 5(770)830-697127 [place] [address] 08-12-2025 08:24-0400 Respiratory rate 18 /min Alis Duran MD Work Phone: [facility] 08-12-2025 08:24-0400 SaO2% (BldA) [Mass fraction] 96 % Alis Duran MD Work Phone: [facility] 08-12-2025 08:24-0400 Systolic blood pressure 108 mm[Hg] Alis Duran MD Work Phone: 1(780)395-795769 [place] [address] 07-26-2025 15:04-0400 Body temperature 98.3 [degF] Alis Duran MD Work Phone: 3(736)431-001169 [place] [address] 07-26-2025 15:04-0400 Diastolic blood pressure 54 mm[Hg] Alis Duran MD Work Phone: 2(783)395-222469 [place] [address] 07-26-2025 15:04-0400 Heart rate 82 /min Alis Duran MD Work Phone: 9(721)132-957269 [place] [address] 07-26-2025 15:04-0400 Inhaled oxygen flow rate 2 L/min Alis Duran MD Work Phone: 7(409)044-327569 [place] [address] 07-26-2025 15:04-0400 Respiratory rate 16 /min Alis Duran MD Work Phone: 2(604)986-809569 [place] [address] 07-26-2025 15:04-0400 SaO2% (BldA) [Mass fraction] 92 % Alis Duran MD Work Phone: 4(630)266-182777 [address] 07-26-2025 15:04-0400 Systolic blood pressure 114 mm[Hg] Alis Duran MD Work Phone: 6(190)142-514769 [place] [address] 07-26-2025 10:23-0400 Body height 180.34 cm Alis Duran MD Work Phone: 4(657)491-745769 [place] [address] 07-26-2025 10:23-0400 Body weight 177 kg Alis uDran MD Work Phone: 9(928)095-659569 [place] [address] 07-26-2025 03:45-0400 Body temperature 98.4 [degF] Alis Duran MD Work Phone: [facility] 07-26-2025 03:45-0400 Diastolic blood pressure 60 mm[Hg] Alis Duran MD Work Phone: [facility] 07-26-2025 03:45-0400 Heart rate 70 /min Alis Duran MD Work Phone: [facility] 07-26-2025 03:45-0400 Respiratory rate 16 /min Alis Duran MD Work Phone: [facility] 07-26-2025 03:45-0400 SaO2% (BldA) [Mass fraction] 96 % Alis Duran MD Work Phone: [facility] 07-26-2025 03:45-0400 Systolic blood pressure 101 mm[Hg] Alis Duran MD Work Phone: [facility] 07-26-2025 03:18-0400 Body mass index (BMI) [Ratio] 54.4 kg/m2 Alis Duran MD Work Phone: [facility] 07-26-2025 03:18-0400 Body weight 177 kg Alis Duran MD Work Phone: [facility] 07-22-2025 10:05-0400 Body height 180.34 cm Alis Duran MD Work Phone: [facility] 07-21-2025 12:11-0400 Body temperature 99.2 [degF] Alis Duran MD Work Phone: [facility] 07-21-2025 12:11-0400 Diastolic blood pressure 49 mm[Hg] Alis Duran MD Work Phone: [facility] 07-21-2025 12:11-0400 Heart rate 99 /min Alis Duran MD Work Phone: [facility] 07-21-2025 12:11-0400 Respiratory rate 15 /min Alis Duran MD Work Phone: [facility] 07-21-2025 12:11-0400 SaO2% (BldA) [Mass fraction] 99 % Alis Duran MD Work Phone: [facility] 07-21-2025 12:11-0400 Systolic blood pressure 129 mm[Hg] Alis Duran MD Work Phone: 3(502)604-132277 [address] 07-21-2025 10:32-0400 Body mass index (BMI) [Ratio] 54.1 kg/m2 Alis Duran MD Work Phone: 8(283)943-061877 [address] 07-21-2025 10:32-0400 Body weight 176.2 kg Alis Duran MD Work Phone: 2(470)769-175669 [place] [address] 07-21-2025 09:08-0400 Body height 180.34 cm Alis Duran MD Work Phone: 4(183)393-999169 [place] [address] 01-28-2025 14:52-0400 Body height 180.34 cm Alis Duran MD Work Phone: 4(067)148-085169 [place] [address] 01-28-2025 14:52-0400 Body mass index (BMI) [Ratio] 50.3 kg/m2 Alis Duran MD Work Phone: 8(028)858-590177 [address] 01-28-2025 14:52-0400 Body temperature 97.6 [degF] Alis Duran MD Work Phone: 1(920)654-101369 [place] [address] 01-28-2025 14:52-0400 Body weight 163.74 kg Alis Duran MD Work Phone: 7(906)921-813527 [place] [address] 01-28-2025 14:52-0400 Diastolic blood pressure 82 mm[Hg] Alis Duran MD Work Phone: 8(033)634-732177 [address] 01-28-2025 14:52-0400 Heart rate 82 /min Alis Duran MD Work Phone: [facility] 01-28-2025 14:52-0400 Respiratory rate 18 /min Alis Duran MD Work Phone: [facility] 01-28-2025 14:52-0400 SaO2% (BldA) [Mass fraction] 97 % Alis Duran MD Work Phone: [facility] 01-28-2025 14:52-0400 Systolic blood pressure 140 mm[Hg] Alis Duran MD Work Phone: [facility] 04-23-2024 08:20-0400 Body height 179.07 cm Fiona Satkowiak PA-C [facility] 04-23-2024 08:20-0400 Body mass index (BMI) [Ratio] 48.07 kg/m2 Fiona Satkowiak PA-C [facility] 04-23-2024 08:20-0400 Body weight 154.13 kg Fiona Satkowiak PA-C [facility] 03-22-2024 09:33-0400 Body mass index (BMI) [Ratio] 51.6 kg/m2 Zack Vigil MD Work Phone: [facility] 03-22-2024 09:33-0400 Body weight 165.47 kg Zack Vigil MD Work Phone: [facility] 03-22-2024 09:33-0400 Diastolic blood pressure 80 mm[Hg] Zack Vigil MD Work Phone: [facility] 03-22-2024 09:33-0400 Heart rate 84 /min Zack Vigil MD Work Phone: [facility] 03-22-2024 09:33-0400 Systolic blood pressure 130 mm[Hg] Zack Vigil MD Work Phone: [facility] 09-25-2023 04:18-0500 Diastolic blood pressure 80 mm[Hg] Bernabe Dooley MD Work Phone: [facility] 09-25-2023 04:18-0500 Heart rate 82 /min Bernabe Dooley MD Work Phone: [facility] 09-25-2023 04:18-0500 Respiratory rate 16 /min Bernabe Dooley MD Work Phone: [facility] 09-25-2023 04:18-0500 SaO2% (BldA) [Mass fraction] 98 % Bernabe Dooley MD Work Phone: [facility] 09-25-2023 04:18-0500 Systolic blood pressure 145 mm[Hg] Bernabe Dooley MD Work Phone: [facility] 09-24-2023 18:17-0500 Body temperature 98.01 [degF] Bernabe Dooley MD Work Phone: [facility] 09-24-2023 18:11-0500 Body height 180.3 cm Bernabe Dooley MD Work Phone: [facility] 09-24-2023 18:11-0500 Body mass index (BMI) [Ratio] 51.6 kg/m2 Bernabe Dooley MD Work Phone: [facility] 09-24-2023 18:11-0500 Body weight 167.83 kg Bernabe Dooley MD Work Phone: [facility] 02-16-2023 09:50-0400 Diastolic blood pressure 66 mm[Hg] [address] 02-16-2023 09:50-0400 Heart rate 86 /min [address] 02-16-2023 09:50-0400 Respiratory rate 15 /min [address] 02-16-2023 09:50-0400 SaO2% (BldA) [Mass fraction] 97 % [address] 02-16-2023 09:50-0400 Systolic blood pressure 140 mm[Hg] [address] 02-16-2023 09:25-0400 Body temperature 98.6 [degF] [address] 02-16-2023 09:00-0400 Body height 180.[address] 02-16-2023 09:00-0400 Body mass index (BMI) [Ratio] 52.09 kg/m2 [address] 02-16-2023 09:00-0400 Body weight 169.[address] 12-23-2022 11:10-0500 Diastolic blood pressure 92 mm[Hg] [address] 12-23-2022 11:10-0500 Heart rate 76 /min [address] 12-23-2022 11:10-0500 Respiratory rate 15 /min [address] 12-23-2022 11:10-0500 SaO2% (BldA) [Mass fraction] 97 % [address] 12-23-2022 11:10-0500 Systolic blood pressure 156 mm[Hg] [address] 12-23-2022 10:41-0500 Body temperature 99.1 [degF] [address] 12-23-2022 09:15-0500 Body height 180.[address] 12-23-2022 09:15-0500 Body mass index (BMI) [Ratio] 53.44 kg/m2 [address] 12-23-2022 09:15-0500 Body weight 173.[address] 10-27-2022 18:15-0500 Diastolic blood pressure 87 mm[Hg] [address] 10-27-2022 18:15-0500 Heart rate 79 /min [address] 10-27-2022 18:15-0500 Respiratory rate 15 /min [address] 10-27-2022 18:15-0500 SaO2% (BldA) [Mass fraction] 100 % [address] 10-27-2022 18:15-0500 Systolic blood pressure 152 mm[Hg] [address] 10-27-2022 17:50-0500 Body temperature 97.5 [degF] [address] 10-26-2022 12:00-0500 Body height 180.[address] 10-26-2022 12:00-0500 Body mass index (BMI) [Ratio] 53 kg/m2 [address] 10-26-2022 12:00-0500 Body weight 172.[address] 04-14-2022 15:29-0400 Body temperature 97.9 [degF] Tye Holbrook MD Work Phone: [facility] 04-14-2022 15:29-0400 Diastolic blood pressure 83 mm[Hg] Tye Holbrook MD Work Phone: [facility] 04-14-2022 15:29-0400 Heart rate 94 /min Tye Holbrook MD Work Phone: [facility] 04-14-2022 15:29-0400 SaO2% (BldA) [Mass fraction] 94 % Tye Holbrook MD Work Phone: [facility] 04-14-2022 15:29-0400 Systolic blood pressure 152 mm[Hg] Tye Holbrook MD Work Phone: [facility] 04-14-2022 14:07-0400 Body height 180.3 cm Tye Holbrook MD Work Phone: [facility] 04-14-2022 14:07-0400 Body mass index (BMI) [Ratio] 51.19 kg/m2 Tye Holbrook MD Work Phone: [facility] 04-14-2022 14:07-0400 Body weight 166.47 kg Tye Holbrook MD Work Phone: [facility] 04-14-2022 03:00-0400 Respiratory rate 18 /min Tye Holbrook MD Work Phone: [facility] 04-22-2021 08:50-0400 Body temperature 98.29 [degF] Sukhwinder Villalobos MD Work Phone: [facility] 04-22-2021 08:50-0400 Diastolic blood pressure 65 mm[Hg] Sukhwinder Villalobos MD Work Phone: [facility] 04-22-2021 08:50-0400 Heart rate 94 /min Sukhwinder Villalobos MD Work Phone: [facility] 04-22-2021 08:50-0400 Respiratory rate 13 /min Sukhwinder Villalobos MD Work Phone: [facility] 04-22-2021 08:50-0400 SaO2% (BldA) [Mass fraction] 92 % Sukhwinder Villalobos MD Work Phone: [facility] 04-22-2021 08:50-0400 Systolic blood pressure 117 mm[Hg] Sukhwinder Villalobos MD Work Phone: [facility] 04-22-2021 06:38-0400 Body height 180.3 cm Sukhwinder Villalobos MD Work Phone: [facility] 04-22-2021 06:38-0400 Body mass index (BMI) [Ratio] 53.35 kg/m2 Sukhwinder Villalobos MD Work Phone: [facility] 04-22-2021 06:38-0400 Body weight 173.5 kg Sukhwinder Villalobos MD Work Phone: [facility] Encounters Encounter Date Encounter Type Care Provider Facility Start: 09-19-2025 ambulatory León Mccray Facility:[facility] Start: 09-16-2025 ambulatory Myriam Aguilar Facility:[facility] Start: 09-09-2025 End: 09-09-2025 ambulatory Alis Duran Facility:[facility] Start: 08-21-2025 End: 08-21-2025 Emergency department patient visit Alis Duran MD Work Phone: -Emergency Department Work Phone: Start: 08-21-[address] Myriam Aguilar DO -Physical Therapy Work Phone: Start: 08-19-2025 End: 08-19-[address] León Mccray MD -[facility] Work Phone: Start: 08-19-2025 End: 08-19-2025 ambulatory Alis Duran MD Work Phone: -[facility] Start: 08-13-[address] Myrima Aguilar DO -Physical Therapy Work Phone: Start: 08-13-2025 End: 08-13-2025 ambulatory Alis Duran MD Work Phone: -[facility] Start: 08-13-2025 End: 08-13-[address] León Mccray MD -[facility] Work Phone: Start: 08-12-[address] Lenó Mccray MD -[facility] Start: 08-12-2025 End: 08-12-[address] León Mccray MD -[facility] Work Phone: Start: 08-12-2025 End: 08-13-2025 ambulatory Alis Duran MD Work Phone: -[facility] Start: 08-06-2025 Non-patient / Non-visit Vel[facility]ort Anahiang [facility] Work Phone: Start: 08-06-2025 [facility] Start: 08-02-2025 End: 08-02-2025 ambulatory Alis Duran MD Work Phone: -[facility] Start: 08-02-2025 End: 08-02-[address] Alis Duran MD -[facility] Start: 08-02-2025 End: 08-02-2025 ambulatory Alis Duran Facility:[facility] Start: 07-26-2025 Non-patient / Non-visit Dr. Myriam Aguilar DO [facility] Work Phone: Start: 07-25-2025 Non-patient / Non-visit Dr. Myriam Aguilar DO [facility] Work Phone: Start: 07-24-2025 Non-patient / Non-visit Dr. Timoteo Cooper MD -[facility] Work Phone: Start: 07-23-2025 Non-patient / Non-visit Dr. Timoteo Cooper MD -[facility] Work Phone: Start: 07-22-2025 Non-patient / Non-visit Dr. Timoteo Cooper MD -[facility] Work Phone: Start: 07-22-2025 ambulatory Rosalee Kofi Facility:[facility] Start: 07-22-2025 Non-patient / Non-visit Dr. Rosalee hawkins MD -[facility] Start: 07-21-2025 ambulatory Timoteo Cooper Facility: [facility] Start: 07-21-2025 End: 07-26-2025 Evaluation and management of inpatient Dr. Timoteo Cooper MD -[facility] Work Phone: Start: 07-19-2025 End: 07-19-2025 ambulatory Alis Duran MD Work Phone: -[facility] Start: 07-19-2025 End: 07-19-2025 Patient encounter procedure Yusef Mccoy [employer]ER OPERATOR-C -Cardiovascular Services Work Phone: Start: 07-19-2025 End: 07-19-2025 ambulatory Yusef Trimblegirma [employer]ER OPERATOR Facility:[facility] Start: 04-29-2025 End: 04-29-2025 ambulatory Alis Duran MD Work Phone: [facility] Work Phone: Start: 04-29-2025 End: 04-29-[address] Alis Duran MD -[facility] Start: 04-29-2025 End: 04-29-2025 ambulatory Alis Roger Facility:[facility] Start: 01-28-2025 End: 01-28-[address] Lorie Willson MD -[facility] Work Phone: Start: 01-28-2025 End: 01-28-2025 ambulatory Alis Duran Facility:[facility] Start: 04-23-2024 End: 04-23-2024 Office outpatient visit 15 minutes Fiona Beckman Work Phone: [place] Start: 03-22-2024 ambulatory ZACK Woodall [facility] Start: 03-22-2024 End: 03-22-2024 Office outpatient visit 25 minutes Zack Vigil MD Work Phone: [facility] Comment on above: Hyperlipidemia, unsp ecified hyperlipidemia type (Primary Dx); Primary hypertension; Cirrhosis of liver without ascites, unspecified hepatic cirrhosis type (CMS/HCC) (HCC); Type 2 diabetes mellitus without complication, without long-term current use of insulin (CMS/HCC) (HCC) Start: 03-20-2024 ambulatory ZACK MUSA [facility] [facility] Start: 01-20-2024 End: 01-20-2024 Office outpatient visit 15 minutes Fiona Beckman Work Phone: [facility] [place] Start: 01-19-2024 End: 01-19-2024 Encounter identifier Nathalia Angela Work Phone: [facility] [place] Start: 01-17-2024 End: 01-17-2024 Encounter identifier Nathalia LunaArthur [employer] Work Phone: [facility] [place] Start: 01-12-2024 End: 01-12-2024 Encounter identifier Nathalia LunaArthur [employer] Work Phone: [facility] [place] Start: 01-06-2024 End: 01-06-2024 Encounter identifier Nathalia LunaArthur [employer] Work Phone: [facility] [place] Start: 01-05-2024 End: 01-05-2024 Encounter identifier Nathalia LunaArthur [employer] Work Phone: [facility] [place] Start: 12-29-2023 End: 12-29-2023 Encounter identifier Nathalia Angela Work Phone: [facility] [place] Start: 12-27-2023 End: 12-27-2023 Encounter identifier Nathalia Angela Work Phone: [facility] [place] Start: 12-17-2023 ambulatory GOMEZ KURTZ [facility] Start: 12-16-2023 ambulatory ZACK VIGIL [facility] Start: 12-09-2023 [facility] Start: 12-02-2023 End: 12-02-2023 Office outpatient visit 25 minutes Tj Howell Work Phone: [facility] [place] Start: 11-23-2023 ambulatory ZACK [facility] Start: 11-22-2023 Patient encounter procedure Zack Vigil MD Work Phone: [facility] Work Phone: Start: 11-22-2023 Encounter for genera l adult medical examination without abnormal findings ZACK [facility] Start: 11-22-2023 ambulatory ZACK [facility] Start: 11-22-2023 End: 11-22-2023 ambulatory ZACK [facility] Start: 11-22-2023 End: 11-22-2023 Encounter for general adult medical examination without abnormal findings [facility] Start: 11-02-2023 End: 11-02-2023 Encounter identifier Tj Howell Work Phone: [employer] [place] Start: 10-12-2023 End: 10-12-2023 Office outpatient new 45 minutes Tj Howell Work Phone: [facility] [place] Start: 09-24-2023 End: 09-25-2023 Emergency department patient visit BERNABE DOOLEY [facility] Start: 09-24-2023 End: 09-25-2023 Emergency department patient visit Bernabe Dooley MD Work Phone: [facility] Comment on above: Painless hematuria ( Primary Dx) Start: 09-24-2023 End: 09-25-2023 Evaluation and management of inpatient Bernabe Dooley MD Work Phone: [facility] Start: 02-16-2023 ambulatory VINCENT MOSES [facility] Start: 02-16-2023 End: 02-16-2023 Evaluation and management of inpatient McSa Proc Rm [address] [facility] Start: 02-16-2023 End: 02-16-2023 Subsequent hospital visit by physician Vincent Moses MD Work Phone: [facility] Comment on above: Esophageal varices w ithout bleeding, unspecified esophageal varices type (CMS/HCC) [I85.00 (ICD-10-CM)] (Primary Dx); Esophageal varices without bleeding (CMS/HCC) Start: 12-23-2022 ambulatory TADCyndi OCHOA KARINA Cyndi V~[id number] [facility] Start: 12-23-2022 End: 12-23-2022 Evaluation and management of inpatient McSa Proc Rm 02 [facility] Start: 12-23-2022 End: 12-23-2022 Subsequent hospital visit by physician Paul Mishra Work Phone: [facility] Comment on above: Esophageal varices w ithout bleeding, unspecified esophageal varices type (CMS/HCC) [I85.00 (ICD-10-CM)] (Primary Dx); Esophageal varices without bleeding (CMS/HCC) Start: 11-17-2022 ambulatory BISHOP CHO [facility] Start: 11-17-2022 End: 11-17-2022 Evaluation and management of inpatient McCe Xr A [facility] Start: 11-17-2022 End: 11-17-2022 Subsequent hospital visit by physician Judit A [facility] Comment on above: Calculus of kidney; Calculus of kidney with calculus of ureter Start: 10-27-2022 ambulatory JOCELYNE TRACEY [facility] Start: 10-27-2022 End: 10-27-2022 Evaluation and management of inpatient McCe Proc 03 [facility] Start: 10-27-2022 End: 10-27-2022 Subsequent hospital visit by physician Jocelyne Tracey MD Work Phone: [facility] Comment on above: Esophageal varices w ith bleeding (CMS/HCC) Start: 09-02-2022 ambulatory THOM ONEILL [facility] Start: 09-02-2022 End: 09-02-2022 Evaluation and management of inpatient McSam Us 1 [facility] [place] Start: 09-02-2022 End: 09-02-2022 [facility] [address] [place] [address] Comment on above: GLASS (nonalcoholic s teatohepatitis) Start: 04-13-2022 End: 04-14-2022 Emergency department patient visit Tye Holbrook MD Work Phone: [facility] Comment on above: Dyspnea, unspecified type (Primary Dx); SOB (shortness of breath) Start: 04-13-2022 End: 04-14-2022 Evaluation and management of inpatient Tye Holbrook MD Work Phone: [facility] Start: 03-25-2022 End: 03-25-2022 [facility] Start: 03-25-2022 End: 03-25-2022 Subsequent hospital visit by physician Judit Ness [facility] Comment on above: Stone, kidney Start: 03-13-2022 End: 03-13-2022 Emergency department patient visit PAUL CARDOSO [facility] Start: 10-13-2021 Transcribe Orders Dandy Healy MD Work Phone: [facility] Comment on above: Body mass index 45.0 -49.9, adult (CMS/HCC) (Primary Dx) Start: 10-13-2021 End: 10-13-2021 Transcribe Orders Dandy Healy MD Work Phone: [facility] Start: 04-22-2021 End: 04-22-2021 ambulatory [facility] Start: 04-22-2021 End: 04-22-2021 Subsequent hospital visit by physician Sukhwinder Villalobos MD Work Phone: [facility] Start: 03-20-2021 End: 03-21-2021 ambulatory [facility] Procedures Date Procedure Procedure Detail Performing Clinician [...] Work Phone: Comment on above: Performed at: [facility] [id number] Director: Tres Cm PhD, Phone: [phone] Start: 08-12-2025 Serum inorganic phosphate measurement Alis [...] microscopy Alis Duran MD Work Phone: Start: 07-21-2025 CT angiography [...] or Pulmonary Embolism (PE)CRITICAL VALUE CALLED [facility]07/19/25 1632 Apolonia Bearden.RESULTS READ BACK BY SAME. [...] Start: 04-13-2022 Sars-cov-2 detection by dna/rna Nati SOTO Work Phone: Start: 04-13-2022 Ct angiography chest w/contrast/noncontrast Nati SOTO Work Phone: Start: 04-13-2022 Assay of troponin quantitative Nati SOTO Work Phone: Start: 04-13-2022 Radiologic exam chest 2 views Nati SOTO Work Phone: Start: 04-13-2022 Basic metabolic panel calcium total Nati Nelsonzina [facility]OTO Work Phone: Start: 04-13-2022 CBC W Auto [...] 09-16-2032 Screening for malignant neoplasm of colon [facility] Start: 09-14-2032 Screening for malignant neoplasm of colon Colorectal Cancer Screening: Colonoscopy [facility] Start: 07-23-2027 DTaP,Tdap,and Td Vaccines (2 - Td or Tdap) DTaP,Tdap,and Td Vaccines (2 - Td or Tdap) [facility] Start: 07-23-2027 Tdap/Td Vaccines: 21+ Years Tdap/Td Vaccines: 21+ Years [facility] Start: 07-23-2027 Tetanus vaccination Tetanus: Every 10yrs [facility] Start: 11-12-2026 Lipid panel Cholesterol Screening (Lipid Panel) [facility] Start: 08-21-2025 [facility] Start: 08-13-2025 Measurement of occult blood in stool specimen using immunoassay Stool Occult Blood (GIORGIO) [facility] Start: 08-13-2025 Registered Recurring Registered Recurring -Physical Therapy Work Phone: Start: 08-13-2025 Patient encounter procedure Registered Clinical [facility] [place] Work Phone: Start: 07-26-2025 Patient discharge [facility] Start: 07-25-2025 [facility] Start: 07-22-2025 [facility] Start: 07-22-2025 Thyroid stimulating hormone measurement [facility] Start: 07-21-2025 Bacteria identified in Blood by Culture Blood Culture [facility] Start: 07-21-2025 Bacteria identified in Urine by Culture Urine Culture [facility] Start: 07-21-2025 Blood culture Blood Culture [facility] Start: 07-21-2025 Following clinical pathway protocol [facility] Start: 07-21-2025 Application of elastic bandage [facility] Start: 07-21-2025 Care regimes management [facility] Start: 07-21-2025 Elevation of affected extremity [facility] Start: 07-21-2025 Notification of physician [facility] Start: 07-21-2025 Patient education [facility] Start: 07-21-2025 End: 07-21-2025 [facility] Start: 07-21-2025 Continuous positive airway pressure ventilation treatment [facility] Start: 07-21-2025 Admission procedure [facility] Start: 07-21-2025 Documentation procedure [facility] Start: 07-21-2025 Oxygen therapy [facility] Start: 07-21-2025 Ambulation without limitation [facility] Start: 07-21-2025 Assessment of risk of venous thromboembolism [facility] Start: 07-21-2025 Hospital admission, emergency, from emergency room, medical nature [facility] Start: 07-21-2025 Insertion of catheter into peripheral vein [facility] Start: 07-21-2025 Measuring intake and output [facility] Start: 07-21-2025 Providing care according to standard [facility] Start: 07-21-2025 Referral for physical therapy [facility] Start: 07-21-2025 Referral to occupational therapist [facility] Start: 07-21-2025 Referral to service [facility] Start: 07-21-2025 Verification routine [facility] Start: 07-21-2025 [facility] Start: 07-21-2025 [facility] Start: 07-21-2025 End: 07-21-2025 [facility] Start: 07-21-2025 Consultation [facility] Start: 07-21-2025 Patient referral to dietitian [facility] Start: 03-20-2025 Creatinine measurement Creatinine Level [facility] Start: 03-20-2025 Lipid panel Lipid Panel [facility] Start: 03-20-2025 Potassium measurement Potassium Level [facility] Start: 09-24-2024 Diabetes: Annual GFR (Glomerular Filtration Rate) Diabetes: Annual GFR (Glomerular Filtration Rate) [facility] Start: 09-20-2024 Hemoglobin A1c measurement Diabetes: Hemoglobin A1C [facility] Start: 07-15-2024 Influenza vaccination Influenza Vaccine (Season Ended) [facility] Start: 01-31-2024 Hemoglobin A1c measurement Diabetes: Blood Sugar Control Test (HGBA1C) [facility] Start: 11-20-2023 Urine screening for protein Diabetes: Urine Protein Screening [facility] Start: 10-12-2023 Shoulder MRI joint, w/o contrast, Left ([id number]), Body Site: Shoulder, [facility] Start: 09-14-2023 Diabetes: Annual GFR (Glomerular Filtration Rate) Diabetes: Annual GFR (Glomerular Filtration Rate) [facility] Start: 09-14-2023 Hypertension/CHF/CAD Annual BMP Blood Test Hypertension/CHF/CAD Annual BMP Blood Test [facility] Start: 07-15-2023 COVID-19 Vaccine ( season) COVID-19 Vaccine ( season) [facility] Start: 07-15-2023 Influenza vaccination Influenza Vaccine (#1) [facility] Start: 04-13-2023 Hypertension/CHF/CAD Annual BMP Blood Test Hypertension/CHF/CAD Annual BMP Blood Test [facility] Start: 03-08-2023 Hypertension/CHF/CAD Annual BMP Blood Test Hypertension/CHF/CAD Annual BMP Blood Test [facility] Start: 11-12-2022 Urine screening for protein Diabetes: Annual Urine Protein Test (Microalbumin) [facility] Start: 09-14-2022 Subsequent hospital visit by physician 09/14/2022 Hospital Encounter Gastroenterology Dionicio Chávez DO [address] [place] [address] [facility] Start: 07-15-2022 Influenza vaccination [facility] Start: 01-23-2022 COVID-19 Vaccine (4 - Booster for Pfizer series) COVID-19 Vaccine (4 - Booster for Pfizer series) [facility] Start: 12-02-2021 Diabetes: Annual Retina Eye Exam Diabetes: Annual Retina Eye Exam [facility] Start: 12-02-2021 Diabetes: Annual Urine Albumin-Creatinine Ratio Diabetes: Annual Urine Albumin-Creatinine Ratio [facility] Start: 12-02-2021 Diabetes: Annual Urine Albumin-Creatinine Ratio (uACR) Diabetes: Annual Urine Albumin-Creatinine Ratio (uACR) [facility] Start: 12-02-2021 Diabetic foot examination Diabetes: Annual Foot Exam [facility] Start: 12-02-2021 Hemoglobin A1c measurement Diabetes: Blood Sugar Control Test (HGBA1C) [facility] Start: 12-02-2021 Urine screening for protein Diabetes: Annual Urine Protein Test (Microalbumin) [facility] Start: 10-13-2021 End: 10-13-2022 US Abdomen Limited US Abdomen Limited Imaging Routine Body mass index 45.0-49.9, adult (CMS/HCC) Expected: 10/13/2021, Expires: 10/13/2022 [employer] Work Phone: Comment on above: Expected: 10/13/2021, Expires: 2 Start: 07-15-2021 Influenza vaccination Influenza Vaccine (#1) [facility] Start: 04-30-2021 End: 04-30-2021 Patient encounter procedure 04/30/2021 Office Visit General Surgery Sukhwinder Villalobos MD [address] [place] [address] [phone] [facility] Start: 12-23-2019 Adolescent depression screening assessment Depression Screening [facility] Start: 12-23-2019 Hepatitis C screening Hepatitis C Screening [facility] Start: 12-23-2019 HIV screening HIV Screening [facility] Start: 12-23-2019 Lipid panel Cholesterol Screening (Lipid Panel) [facility] Start: 12-23-2019 Social Influencers of Health Screening Social Influencers of Health Screening [facility] Start: 1997 DTaP,Tdap,and Td Vaccines (1 - Tdap) DTaP,Tdap,and Td Vaccines (1 - Tdap) [facility] Start: 1996 Hepatitis C screening Hepatitis C Screening [facility] Start: 1993 HIV screening HIV Screening [facility] Start: 1990 COVID-19 Vaccine (1) COVID-19 Vaccine (1) [facility] Start: 1990 Depression screening using PHQ-9 (Patient Health Questionnaire 9) score Depression Screening (PHQ9) [facility] Start: 1988 Diabetes: Annual Retina Eye Exam Diabetes: Annual Retina Eye Exam [facility] Start: 1988 Diabetic foot examination [facility] Start: 1988 Glaucoma screening Diabetes: Retinopathy Screening [facility] Start: 1988 Microalbumin measurement, urine, quantitative Urine Microalbumin [facility] Start: 1988 Ophthalmic examination and evaluation Ophthalmology Exam [facility] Start: 1984 Pneumococcal Vaccine: Pediatrics (0 to 5 Years) and At-Risk Patients (6 to 64 Years) (1 - PCV) Pneumococcal Vaccine: Pediatrics (0 to 5 Years) and At-Risk Patients (6 to 64 Years) (1 - PCV) [facility] Start: 1984 Pneumococcal Vaccine: Pediatrics (0 to 5 Years) and At-Risk Patients (6 to 64 Years) (1 of 2 - PCV) Pneumococcal Vaccine: Pediatrics (0 to 5 Years) and At-Risk Patients (6 to 64 Years) (1 of 2 - PCV) [facility] Start: 1984 Pneumococcal Vaccine: Pediatrics (0 to 5 Years) and At-Risk Patients (6 to 64 Years) (1 of 2 - PPSV23) Pneumococcal Vaccine: Pediatrics (0 to 5 Years) and At-Risk Patients (6 to 64 Years) (1 of 2 - PPSV23) [facility] Start: 1981 History and physical examination, annual for health maintenance Wellness Visit [facility] Start: 1979 MMR Vaccines (1 of 1 - Standard series) MMR Vaccines (1 of 1 - Standard series) [facility] Start: 1978 Hemoglobin A1c measurement A1C [facility] Start: 1978 HIV screening HIV Screening [facility] Start: 1978 Screening for malignant neoplasm of colon [facility] Alanine aminotransfe rase [Enzymatic activity/volume] in Serum or Plasma [facility] Albumin [Mass/volume ] in Serum or Plasma [facility] Alkaline phosphatase [Enzymatic activity/volume] in Serum or Plasma [facility] Anion gap in Serum o r Plasma [facility] Bilirubin, total measurement [facility] Bilirubin.direct [Mass/volume] in Serum or Plasma [facility] BUN/Creatinine ratio [facility] Calcium [Mass/volume ] in Serum or Plasma [facility] Carbon dioxide, tota l [Moles/volume] in Central venous blood [facility] Creatinine [Mass/vol ume] in Serum or Plasma [facility] Erythrocyte mean corpuscular volume determination [facility] Glucose [Mass/volume ] in Serum or Plasma [facility] Hematocrit [Volume Fraction] of Blood [facility] Hemoglobin [Mass/vol ume] in Blood [facility] Leukocytes [#/volume ] in Blood [facility] Magnesium measurement [facility] Mean corpuscular hemoglobin concentration determination [facility] Mean corpuscular hemoglobin determination [facility] Measurement of renal function [facility] Neutrophil count [facility] Neutrophil percent differential count [facility] Patient Education ED Confusion E D Near-Fainting, Uncertain Cause ED Vomiting (Adult) [facility] Work Phone: Platelets [#/volume] in Blood [facility] Potassium measurement [facility] Red blood cell count [facility] Red cell distributio n width determination [facility] Serum chloride measurement [facility] Sodium measurement [facility] Total protein measurement [facility] Troponin T.cardiac [Mass/volume] in Serum or Plasma by High sensitivity method [facility] Urea nitrogen [Mass/volume] in Serum or Plasma [facility] Urine culture [facility] Immunizations Immunization Date Immunization Notes Care Provider Fa regan 11-30-2022 influenza, injectabl e, quadrivalent, preservative free Zack Vigil MD Work Phone: [facility] Work Phone: 11-30-2022 influenza virus vaccine, unspecified formulation Bernabe Dooley MD Work Phone: [facility] 11-28-2021 Pfizer COVID-19, mRN A, 30 mcg/0.3mL Zack Vigil MD Work Phone: [facility] 03-22-2021 Pfizer SARS-CoV-2 Vaccination Sukhwinder Villalobos MD Work Phone: [facility] 03-01-2021 Pfizer COVID-19, mRN A, 30 mcg/0.3mL Zack Vigil MD Work Phone: [facility] 08-21-2020 influenza, injectabl e, quadrivalent, preservative free Zack iVgil MD Work Phone: [facility] 08-21-2020 influenza virus vaccine, unspecified formulation McCe A [facility] 10-19-2019 influenza, injectabl e, quadrivalent, preservative free Zack Vigil MD Work Phone: [facility] 08-16-2018 influenza, injectabl e, quadrivalent, preservative free Zack Vigil MD Work Phone: [facility] 07-23-2017 influenza, injectabl e, quadrivalent, preservative free Zack Vigil MD Work Phone: [facility] 07-23-2017 tetanus toxoid, reduced diphtheria toxoid, and acellular pertussis vaccine, adsorbed Zack Vigil MD Work Phone: [facility] 01-14-2017 hepatitis A vaccine, adult dosage Zack Vigil MD Work Phone: [facility] 01-14-2017 hepatitis B vaccine, adult dosage Zack Vigil MD Work Phone: [facility] 05-31-2016 Hepatitis B vaccine (recombinant), CpG adjuvanted Zack Vigil MD Work Phone: [facility] 05-31-2016 hepatitis B vaccine, adult dosage Zack Vigil MD Work Phone: [facility] Work Phone: 03-25-2016 hepatitis A vaccine, adult dosage Zack Vigil MD Work Phone: [facility] 03-25-2016 Hepatitis B vaccine (recombinant), CpG adjuvanted Zack Vigil MD Work Phone: [facility] 03-25-2016 hepatitis B vaccine, adult dosage Zack Vigil MD Work Phone: [facility] Payers Date Payer Category Payer Self-pay 2024 Unknown [id number] 2018 Private Health Insurance [id number] 2018 Unknown [id number] 2018 Unknown [id number] [id number]. 2.7.3.253803.315 1978 Unknown [id number] 2.16.840.1.361337.3.579. 2.900 1978 Unknown [id number] 2.16.840.1.592867.3.579. 2.902 1978 Unknown [id number] 2.16.840.1.398337.3.579. 2.902 1978 Unknown [id number] 2.16.840.1.134105.3.579. 2.1143 1978 Unknown [id number] 2.16.840.1.657293.3.579. 2.1143 1978 Unknown [id number] 2.16.840.1.113775.3.579. 2.1143 1978 Unknown [id number] 2.16.840.1.118031.3.579. 2.1143 1978 Unknown [id number] 2.16.840.1.441076.3.579. 2.1143 1978 Unknown [id number] 2.16.840.1.294086.3.579. 2.1142 1978 Unknown [id number] 2.16.840.1.274742.3.579. 2.1260 1978 Unknown [id number] 2.16.840.1.413374.3.579. 2.0 1978 Unknown [id number] 2.16.840.1.176948.3.579. 2.0 1978 Unknown [id number] 2.16.840.1.626881.3.579. 2.0 1978 Unknown [id number] 2.16.840.1.641266.3.579. 2.0 1978 Unknown [id number] 2.16.840.1.635527.3.579. 2.0 1978 Unknown [id number] 2.16.840.1.052112.3.579. 2.1260 1978 Unknown [id number] 2.16.840.1.355656.3.579. 2.0 1978 Unknown [id number] 2.16.840.1.247340.3.579. 2.1260 Unknown [employer]F [employer] [id number] Unknown [id number] 2.16.840.1.047541.3.579. 2.462 Unknown [id number] 2.16.840.1.744694.3.579. 2.462 Unknown [id number] 2.16.840.1.778446.3.579. 2.462 Unknown [id number] 2.16.840.1.550388.3.579. 2.462 Unknown [id number] 2.16.840.1.778293.3.579. 2.462 Unknown [id number] 2.16.840.1.969176.3.579. 2.462 Unknown [id number] 2.16.840.1.831879.3.579. 2.462 Unknown [id number] 2.16.840.1.806965.3.579. 2.462 Unknown [id number] 2.16.840.1.579608.3.579. 2.462 Unknown [id number] 2.16.840.1.656208.3.579. 2.462 Unknown [id number] 2.16.840.1.634524.3.579. 2.462 Unknown [id number] 2.16.840.1.059742.3.579. 2.462 Unknown [id number] 2.16.840.1.127147.3.579. 2.462 Unknown [id number] 2.16.840.1.137010.3.579. 2.462 Unknown [id number] 2.16.840.1.257440.3.579. 2.462 Unknown [id number] 2.16.840.1.548623.3.579. 2.462 Unknown [id number] 2.16.840.1.757172.3.579. 2.462 Unknown [id number] 2.16.840.1.276121.3.579. 2.462 Unknown [id number] 2.16.840.1.082227.3.579. 2.462 Unknown [id number] 2.16840.1.056543.3.579. 2.462 Social History Date Type Detail Facility Start: 04-22-2021 End: 08-21-[address]25 Tobacco [address] status [facility] Never smoker [facility] Start: 04-22-2021 End: 11-22-2023 Tobacco use and exposure Never used [facility] Start: 04-22-2021 End: 09-24-2023 Alcohol intake Current drinker of alcohol (finding) [facility] Start: 04-22-2021 End: 11-22-2023 Alcohol intake [facility] Start: 02-11-2016 Alcohol Comment occasionally [facility] Start: 1980 Sex Assigned At Not on file [facility] Start: 03-15-2022 End: 02-16-2023 Exposure to SARS-CoV-2 (event) Not sure [facility] Tobacco smoking stat [facility] Unknown if ever smoked [facility] Start: 04-13-2022 End: 03-22-2024 Alcohol intake Ex-drinker (finding) [facility] Start: 10-27-2022 Alcohol Comment rare [facility] Start: 11-22-2023 End: 03-22-2024 Gender identity Not on file [facility] How often to you hav e a drink containing alcohol? Monthly or less [facility] How many standard drinks containing alcohol do you have on a typical day? 1 or 2 [facility] Work Phone: How often do you hav e 6 or more drinks on 1 occasion? Never [facility] Work Phone: How hard is it for y ou to pay for the very basics like food, housing, medical care, and heating Not very hard [facility] Work Phone: The food that (I/we) bought just didn't last, and (I/we) didn't have money to get more. Never true [facility] Work Phone: In the past 12 month s, has lack of transportation kept you from medical appointments or from getting medications? No [facility] Work Phone: In the past 12 month s, was there a time when you were not able to pay the mortgage or rent on time? No [facility] Work Phone: Start: 11-22-2023 Tobacco Comment Very brief experimentation in college [facility] Work Phone: Start: 11-22-2023 Alcohol Comment Maybe one chau jin every few years on very special occasions [facility] Work Phone: Start: 04-23-2024 Alcohol intake Alcohol Use Details [facility] Start: 1980 Sex Assigned At Male [facility] Work Phone: Start: 01-21-2020 Sexual Orientation Straight or heterosexual [facility] NEGATED: Highlighted rowStart: 04-23-2024 Tobacco smoking status [facility] Unknown if ever smoked [facility] Medical Equipment Procedure Code Equipment Code Equipment Origin al Text Equipment Identifier Dates Patch 1.7in [place] W/Strap Sm Ventralex St - [id number] , [id number] FDA Start: 04-22-2021 Goals Date Patient Goal Desired Activity /State Functional Status Date Assessment Result Facility 07-26-2025 Functional status Ambulates [facility] Work Phone: 04-23-2024 Pain severity - 0-10 verbal numeric rating [Score] - Reported 1/10 [facility] Mental Status Date Assessment Result Facility 08-21-2025 Cognitive function Awake [facility] Work Phone: 07-26-2025 Cognitive function Voice/Name [facility] Work Phone: 07-21-2025 Cognitive function Awake;Alert;A ppropriate;Fol lows Commands [facility] Work Phone: Clinical Notes 04-17-2021 to 08-21-2025 Note Date & Type Note Facility 08-21-2025 Discharge summary [facility] 08-21-2025 Radiology Diagnostic study note [facility] Imaging Services [address] [place], [place] [address] Brain/Head without Contrast MR#: [id number] Acct: [id number] Name: LEON RIDER Rep #: [id number] : 1980 M 45 From: Rosa Morrison MD PCP: Dr. Alis Duran MD Status: REG ER Study:Brain/Head without Contrast Date of Exa m: 08/21/25 Exam# [id number] Ordering Dr: Vincenzo Chavarria MD EXAM: CT [...] evaluation with MRI is recommended. Reading Location: [facility] CC: Dr. Vincenzo Chavarria MD; Dr. Alis Duran MD ~ Sound Assistant: Signed [facility] 08-21-2025 Radiology Diagnostic study note [facility] Imaging Services [address] [place] [address] [id number] Chest 1 View (Portable) MR#: [id number] Acct: [id number] Name: LEON RIDER Rep #: [id number] : 1980 M 45 From: Rosa Morrison MD PCP: Dr. Alis Duran MD Status: REG ER Study:Chest 1 View (Portable) Date of Exam: 08/21/25 Exam# [id number] Ordering Dr: Vincenzo Chavarria MD EXAM: XR Chest, 1 View CLINICAL INDICATION: CONGESTIVE HEART FAILURE TECHNIQUE: Frontal view of the chest. COMPARISON: No relevant prior studies available. FINDINGS: LUNGS AND PLEURAL SPACES: See below. HEART: Cardiomegaly with mild congestion. MEDIASTINUM: Unremarkable. Normal mediastinal contour. BONES/JOINTS: Unremarkable. No acute fracture. RAD/Chest 1 View (Portable) IMPRESSION: Cardiomegaly with mild congestion. Reading Location: [facility] CC: Dr. Vincenzo Chavarria MD; Dr. Alis Duran MD ~ Sound Assistant: Signed [facility] 08-21-2025 Discharge summary Note Date/Time August 21, 2025 8:56pm [facility] Medical Records Department [address] [place] [address] Emergency Department Summary 08/21/25 MR#: [id number] Acct: [id number] Name: LEON RIDER Rep #:[id number] : [...] feel slightly off balance when he walks. [facility] Medical History Kidney stones Cirrhosis Non-smoker Irregular [...] Continuous Positive Airway 07/23/25 Unknown Hi story Pressure([facility] INFORMATIONAL USE ONLY) bumetanide 2 mg tablet [...] disease Surgical History H/O umbilical hernia repair [place] teeth extracted Social History household members: spouse [...] (Auto) 57.4 Lymph % (Auto) 17.7 L [place] % (Auto) 14.2 H Eos % (Auto) [...] Clarity Cloudy Urine pH 6.0 Ur Specific [place] 1.020 Urine Protein 15 H Urine Glucose [...] evaluation with MRI is recommended. Reading Location: [facility] Chest X-Ray 08/21/25 18:00 IMPRESSION: Cardiomegaly with mild congestion. Reading Location: [facility] Discharge Plan Triage Chief Complaint: Dizziness Other [...] BID (DME) CPAP - Continuous Positive Airway Pressure([facility] INFORMATIONAL USE ONLY) Device See Rx Instructions [...] liquid diet, advance as tolerated. Print Language: Palestinian Disposition Disposition: Home, Self Care What to do if you have Problems For any increased pain, shortness of breath, bleeding, nausea or vomiting, chestpain, or any unexpected problems, contact your Primary Care Provider. Call [facility] ([phone]) or report to the closest Emergency Room. Call 911 if necessary. 08/21/252055 <Electronically signed by Vincenzo Chavarria MD> Cosigner Signature (if applicable): CC: Dr. Alis Duran MD ~ Signed [facility] Work Phone: 1(692) 167-638910-06-2025 Progress [facility] [place] [address] OFFICE VISIT Date of Service: 08/19/25 1447 MR#: [id number] Acct: [id number] Name: LEON RIDER Rep #: [id number] : 1980 From: León Mccray MD Age/Sex: 45/M Location: [facility] Status: Signed HPI Subjective Date of Service 08/19/25 Chief Complaint F/u for anemia. 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 He has had esophageal varices which has been banded in [place]. Denies recent bleeding. Had blood work done and comes for follow up. Feels well. [facility] Medical History Hx of cirrhosis Anemia Chronic idiopathic thrombocytopenia HTN (hypertension) Diabetes Acid reflux Rectal bleeding Hemorrhoids Surgical History H/O umbilical hernia repair [place] teeth extracted Family History Other Diabetes Heart [...] Continuous Positive Airway 07/23/25 08/19/25 H istory Pressure([facility] INFORMATIONAL USE ONLY) bumetanide 2 mg tablet [...] 1513 D> Date _ León Mccray MD [facility] Signature: Date (if applicable) CC: Dr. Alis Duran MD ~ [facility]09-29-2025 [facility] [address] [address] OFFICE VISIT Date of Service: 08/12/25822 MR#: [id number] Acct: [id number] Name: LEON RIDER Rep #: [id number] : 1980 From: León Mccray MD Age/Sex: 45/M Location: [facility] Status: Signed HPI Subjective Date of Service 08/12/25 Chief Complaint Referred for anemia. 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 He has had esophageal varices which has been banded in [place]. Denies recent bleeding [facility] Medical History Hx of cirrhosis Anemia Chronic idiopathic thrombocytopenia HTN (hypertension) Diabetes Acid reflux Rectal bleeding Hemorrhoids Surgical History H/O umbilical hernia repair [place] teeth extracted Family History Other Diabetes Heart [...] Continuous Positive Airway 07/23/25 08/12/25 H istory Pressure([facility] INFORMATIONAL USE ONLY) bumetanide 2 mg tablet [...] 1646 D> Date _ León Mccray MD [facility] Signature: Date (if applicable) CC: Dr. Alis Duran MD ~ [facility]09-12-2025 [facility] Medical Records Department [address] [place] [address] Discharge Summary 07/26/25 1438 MR#: [id number] Acct: [id number] Name: LEON RIDER Rep #: [id number] : 1980 45 From: Myriam Aguilar DO PCP: Dr. Alis Duran MD Status:DIS IN Location: [place] [address] Providers Date of Admission: 07/21/25 Date of [...] diabetes 07/21/25 CPAP - Continuous Positive Airway Pressure([facility] INFORMATIONAL USE ONLY) 07/23/25 bumetanide 2 mg [...] who presented to the emergency department at [facility] on 07/21/2025 with a chief complaint of chest pain. He has a history of metabolic associated liver disease and right leg pain with history of chronic venous stasis. He stated the night prior to presentation he developed some dull aching in his chest at about 8 PM that lasted for couple minutes and then he had to go work at the [employer]. He stated he returned home at about [...] to his l (more content not included)... [facility]09-12-2025 Hospital Discharge instructionsAdditional Instructions 1. Please make [...] to schedule outpatient follow-up Date of Discharge: 07/26/25[facility] Work Phone: 1(261) 679-640509-11-2025 Progress note Author Myriam Aguilar [facility] Note Date/Time July 25, 2025 5:19pm [facility] Medical Records Department [address] [place] [address] Progress Note - Hospitalist 07/25/25 1703 MR#: [id number] Acct: [id number] Name: LEON RIDER Rep #:[id number] : 1980 45 From: Myriam Aguilar DO PCP: Dr. Alis Duran MD Status:ADM IN Location: [place] [address] Reason for Visit Chief Complaint: Atypical chest pain about 2 times last night. Subjective Subjective Patient states overall he is about 50 to 60% better. 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 Shortness of [...] % (Auto) 57.6, Lymph % (Auto) 15.0L, [place] % (Auto) 19.1 H, Eos % (Auto) [...] Full code Charges/Coding Visit Charges Inpatient E&M: 36228 Subs Hosp L2 07/25/25 9102 <Electronically signed by Myriam Aguilar DO> Cosigner Signature (if applicable): CC: ~ Signed [facility] Work Phone: 1(378) 762-852109-11-2025 Progress note [facility] Medical Records Department [address] [place] [address] Progress Note - Hospitalist 07/25/25 1703 MR#: [id number] Acct: [id number] Name: LEON RIDER Rep #:[id number] : 1980 45 From: Myriam Aguilar DO PCP: Dr. Alis Duran MD Status:ADM IN Location: [place] [address] Reason for Visit Chief Complaint: Atypical chest pain about 2 times last night. Subjective Subjective Patient states overall he is about 50 to 60% better. 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 Shortness of [...] % (Auto) 57.6, Lymph % (Auto) 15.0L, [place] % (Auto) 19.1 H, Eos % (Auto) [...] Full code Charges/Coding Visit Charges Inpatient E&M: 70317 Subs Hosp L2 07/25/25 9799 Cosigner Signature (if applicable): CC: ~ Signed [facility]09-10-2025 Progress note Author Timoteo Cooper [facility] Note Date/Time July 24, 2025 12:38pm [facility] Medical Records Department [address] [place] [address] Progress Note - Hospitalist 07/24/25 1232 MR#: [id number] Acct: [id number] Name: LEON RIDER Rep #:[id number] : 1980 45 From: Timoteo Mccarthy PCP: Dr. Alis Duran MD Status:ADM IN Location: [place] [address] Reason for Visit Chief Complaint: Atypical chest [...] % (Auto) 60.8, Lymph % (Auto) 14.1L, [place] % (Auto) 16.9 H, Eos % (Auto) 5.1 H, Baso % (Auto) 0.6, Absolute Neuts (auto) 4.9, Absolute Lymphs (auto) 1.13, Nucleated RBC % 0, Differential CommentSCANNED, Platelet Estimate SLT DEC, Polychromasia 1+, Basophilic Stippling 1+, Anisocytosis 2+, Acanthocytes (Spur) RARE, Sodium 131 L, Potassium 3.7, Uurqzxpw464, Carbon Dioxide 23.7, Anion Gap 8, BUN 9, Creatinine 0.64 L, Estim Creat Clear Calc 233.67, Est GFR (MDRD) Non-Af 117, BUN/Creatinine Ratio 13.5, Imewgip035 H, Calcium 7.5 L, Total Bilirubin 2.01 [...] in the right upper quadrant. Reading Location: [facility] Rhythm Strip Rhythm Strip: Sinus Tach Rate: [...] diuresis. 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 She has to [...] shock if needed Total time spent in kwcm-yd-jprs encounter in discussion of advanced directive 17 [...] % (Auto) 60.8, Lymph % (Auto) 14.1L, [place] % (Auto) 16.9 H, Eos % (Auto) 5.1 H, Baso % (Auto) 0.6, Absolute Neuts (auto) 4.9, Absolute Lymphs (auto) 1.13, Nucleated RBC % 0, Differential CommentSCANNED, Platelet Estimate SLT DEC, Polychromasia 1+, Basophilic Stippling 1+, Anisocytosis 2+, Acanthocytes (Spur) RARE, Sodium 131 L, Potassium 3.7, Njezuvwo016, Carbon Dioxide 23.7, Anion Gap 8, BUN 9, Creatinine 0.64 L, Estim Creat Clear Calc 233.67, Est GFR (MDRD) Non-Af 117, BUN/Creatinine Ratio 13.5, Pnquuet807 H, Calcium 7.5 L, Total Bilirubin 2.01 H, AST 41 H, ALT 24, Alkaline Phosphatase 110, Total Protein 6.2, Albumin 2.2 L, Globulin 4.0, Albumin/Globulin Ratio 0.6 L 07/24/25 06:30: POC Glucose 133 H 07/24/25 11:00: POC Glucose 137 H Clinical Impression(s) from Imaging Studies Chest CTA 07/21/25 09:27 IMPRESSION: Negative for pulmonary embolus.. Mild interstitial edema. Mild mediastinal adenopathy. Cirrhosis. Reading Location: [facility] Echocardiogram 07/22/25 05:55 Interpretation Summary Mild concentric [...] in the right upper quadrant. Reading Location: [id number] Charges/Coding Visit Charges Inpatient E&M: 74590 Subs Hosp L2 07/24/25 1238 <Electronically signed by Timoteo Cooper MD> Cosigner Signature (if applicable): CC: ~ Signed ADDENDUM by Dr. Timoteo Cooper MD on 07/24/25 at 1238 Addendum Doxycycline added. 07/24/25 1238<Electronically signed by Timoteo Cooper MD> Cosigner Signature (if applicable): cc: ~* Signed [facility] Work Phone: 1(285) 930-343609-10-2025 Progress note [facility] Medical Records Department [address] [place] [address] Progress Note - Hospitalist 07/24/25 1232 MR#: [id number] Acct: [id number] Name: LEON RIDER Rep #:[id number] : 1980 45 From: Timoteo Mccarthy PCP: Dr. Alis Duran MD Status:ADM IN Location: [place] [address] Reason for Visit Chief Complaint: Atypical chest [...] % (Auto) 60.8, Lymph % (Auto) 14.1L, [place] % (Auto) 16.9 H, Eos % (Auto) 5.1 H, Baso % (Auto) 0.6, Absolute Neuts (auto) 4.9, Absolute Lymphs (auto) 1.13, Nucleated RBC % 0, Differential CommentSCANNED, Platelet Estimate SLT DEC, Polychromasia 1+, Basophilic Stippling 1+, Anisocytosis 2+, Acanthocytes (Spur) RARE, Sodium 131 L, Potassium 3.7, Bmyelbfp687, Carbon Dioxide 23.7, Anion Gap 8, BUN 9, Creatinine 0.64 L, Estim Creat Clear Calc 233.67, Est GFR (MDRD) Non-Af 117, BUN/Creatinine Ratio 13.5, Irrllnx629 H, Calcium 7.5 L, Total Bilirubin 2.01 H, AST 41 H, ALT 24, Alkaline Fkmgmtqrotz102, Total Protein 6.2, Albumin 2.2 L, Globulin [...] in the right upper quadrant. Reading Location: [facility] Rhythm Strip Rhythm Strip: Sinus Tach Rate: [...] diuresis. 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 She has to [...] shock if needed Total time spent in zyzl-dn-fmko encounter in discussion of advanced directive 17 [...] % (Auto) 60.8, Lymph % (Auto) 14.1L, [place] % (Auto) 16.9 H, Eos % (Auto) 5.1 H, Baso % (Auto) 0.6, Absolute Neuts (auto) 4.9, Absolute Lymphs (auto) 1.13, Nucleated RBC % 0, Differential CommentSCANNED, Platelet Estimate SLT DEC, Polychromasia 1+, Basophilic Stippling 1+, Anisocytosis 2+, Acanthocytes (Spur) RARE, Sodium 131 L, Potassium 3.7, Znrthnkd519, Carbon Dioxide 23.7, Anion Gap 8, BUN 9, Creatinine 0.64 L, Estim Creat Clear Calc 233.67, Est GFR (MDRD) Non-Af 117, BUN/Creatinine Ratio 13.5, Ckvxffd951 H, Calcium 7.5 L, Total Bilirubin 2.01 H, AST 41 H, ALT 24, Alkaline Nneqztoivdm822, Total Protein 6.2, Albumin 2.2 L, Globulin 4.0, Albumin/Globulin Ratio 0.6 L 07/24/25 06:30: POC Glucose 133 H 07/24/25 11:00: POC Glucose 137 H Clinical Impression(s) from Imaging Studies Chest CTA 07/21/25 09:27 IMPRESSION: Negative for pulmonary embolus.. Mild interstitial edema. Mild mediastinal adenopathy. Cirrhosis. Reading Location: [id number] Echocardiogram 07/22/25 05:55 Interpretation Summary Mild concentric [...] in the right upper quadrant. Reading Location: [facility] Charges/Coding Visit Charges Inpatient E&M: 78843 Subs Hosp L2 07/24/25 1238 Cosigner Signature (if applicable): CC: ~ Signed ADDENDUM by Dr. Timoteo Cooper MD on 07/24/25 at 1238 Addendum Doxycycline added. 07/24/25 1238 Cosigner Signature (if applicable): cc: ~* Signed [facility]09-10-2025 Radiology Diagnostic study note [facility] Imaging Services [address], [place] [address] Abdomen Limited MR#: [id number] Acct: [id number] Name: LEON RIDER Rep #: [id number] : 1980 M 45 From: Roberto Angel MD PCP: Dr. Alis Duran MD Status: ADM IN Study:Abdomen Limited Date of Exam: 08/08 Exam# [id number] Ordering Dr: Irlanda Cooper MD PROCEDURE: ABDOMEN [...] in the right upper quadrant. Reading Location: [facility] CC: Dr. Alis Duran MD; Dr. Timoteo Cooper MD ~ Sound Assistant: Signed [facility]09-09-2025 Progress note Author Timoteo Cooper [facility] Note Date/Time July 23, 2025 3:12pm [facility] Medical Records Department [address] [place] [address] Progress Note - Hospitalist 07/23/25 0932 MR#: [id number] Acct: [id number] Name: LEON RIDER Rep #:[id number] : 1980 45 From: Timoteo Mccarthy PCP: Dr. Alis Duran MD Status:ADM IN Location: [place] [address] Reason for Visit Chief Complaint: Atypical chest [...] (Auto) 64.2, Lymph % (Auto) 14.9 L, [place] % (Auto) 16.2 H, Eos % (Auto) [...] shock if needed Total time spent in ydrv-ix-fetu encounter in discussion of advanced directive 17 [...] (Auto) 64.2, Lymph % (Auto) 14.9 L, [place] % (Auto) 16.2 H, Eos % (Auto) [...] [facility] Charges/Coding Visit Charges Inpatient E&M: 61457 Subs Hosp L2 07/23/25 1512 <Electronically signed by Timoteo Cooper MD> Cosigner Signature (if applicable): CC: ~ Signed [facility] Work Phone: 1(406) 247-383709-09-2025 Progress note [facility] Medical Records Department [address] [place] [address] Progress Note - Hospitalist 07/23/25 0932 MR#: [id number] Acct: [id number] Name: LEON RIDER Rep #:[id number] : 1980 45 From: Timoteo Mccarthy PCP: Dr. Alis Duran MD Status:ADM IN Location: [place] [address] Reason for Visit Chief Complaint: Atypical [...] (Auto) 64.2, Lymph % (Auto) 14.9 L, [place] % (Auto) 16.2 H, Eos % (Auto) [...] fissure/hemorrhoid: On PPI. Continue PPI. Saw Dr. oLrie Willson for anal fissure and was advised [...] shock if needed Total time spent in nien-eo-nhkg encounter in discussion of advanced directive 17 [...] (Auto) 64.2, Lymph % (Auto) 14.9 L, [place] % (Auto) 16.2 H, Eos % (Auto) [...] [facility] Charges/Coding Visit Charges Inpatient E&M: 38178 Subs Hosp L2 07/23/25 1512 Cosigner Signature (if applicable): CC: ~ Signed [facility]09-08-2025 Progress note Author Timoteo Cooper [facility] Note Date/Time July 22, 2025 4:06pm [facility] Medical Records Department [address] [place] [address] Progress Note - Hospitalist 07/22/25 0946 MR#: [id number] Acct: [id number] Name: LEON RIDER Rep #:[id number] : 1980 45 From: Timoteo Mccarthy PCP: Dr. Alis Duran MD Status:ADM IN Location: [place] [address] Reason for Visit Chief Complaint: Atypical chest [...] 70.4 H, Lymph % (Auto) 10.4 L, [place] % (Auto) 15.8 H, Eos % (Auto) [...] Clarity Clear, Urine pH 6.5, Ur Specific [place] 1.010, Urine Protein 30 H, Urine Glucose [...] (Auto) 66.1, Lymph % (Auto) 13.7 L, [place] % (Auto) 15.8 H, Eos % (Auto) [...] edema. Mild mediastinal adenopathy. Cirrhosis. Reading Location: [facility] Rhythm Strip Rhythm Strip: Sinus Tach Rate: [...] shock if needed Total time spent in kelg-wk-dqig encounter in discussion of advanced directive 17 [...] (Auto) 66.1, Lymph % (Auto) 13.7 L, [place] % (Auto) 15.8 H, Eos % (Auto) [...] [facility] Charges/Coding Visit Charges Inpatient E&M: 66870 Subs Hosp L2 07/22/25 1606 <Electronically signed by Timoteo Cooper MD> Cosigner Signature (if applicable): CC: ~ Signed [facility] Work Phone: 1(875) 364-553109-08-2025 Progress note [facility] Medical Records Department [address] [place] [address] Progress Note - Hospitalist 07/22/25 0946 MR#: [id number] Acct: [id number] Name: LEON RIDER Rep #:[id number] : 1980 45 From: Timoteo Mccarthy PCP: Dr. Alis Duran MD Status:ADM IN Location: [place] [address] Reason for Visit Chief Complaint: Atypical [...] 70.4 H, Lymph % (Auto) 10.4 L, [place] % (Auto) 15.8 H, Eos % (Auto) [...] Clarity Clear, Urine pH 6.5, Ur Specific [place] 1.010, Urine Protein 30 H, Urine Glucose [...] (Auto) 66.1, Lymph % (Auto) 13.7 L, [place] % (Auto) 15.8 H, Eos % (Auto) [...] edema. Mild mediastinal adenopathy. Cirrhosis. Reading Location: [facility] Rhythm Strip Rhythm Strip: Sinus Tach Rate: [...] shock if needed Total time spent in ibqf-an-hdus encounter in discussion of advanced directive 17 [...] (Auto) 66.1, Lymph % (Auto) 13.7 L, [place] % (Auto) 15.8 H, Eos % (Auto) [...] [facility] Charges/Coding Visit Charges Inpatient E&M: 52245 Subs Hosp L2 07/22/25 1606 Cosigner Signature (if applicable): CC: ~ Signed [facility]09-07-2025 Discharge summary Author Denice Sunniaudra [facility] Note Date/Time July 21, 2025 3:14pm [facility] Medical Records Department [address] [place] [address] Emergency Department Summary 07/21/25 MR#: [id number] Acct: [id number] Name: LEON RIDER Rep #:[id number] : 1980 45 From: Denice Pineda PCP: Dr. Alis Duran MD Status:ADM IN Location: [place] [address] HPI History of Present Illness Chief Complaint: Chest Pain Informant: patient Narrative Narrative: Patient is a 45-year-old male with history of diabetes, hypertension, cirrhosis due to GLASS presenting for chest pain, shortness of breath, fatigue and continued right leg pain. Patient states that 8 PM last night he developed dullache pressure in his chest. Lasted for couple minutes. He was working at the [employer] at that time. He returned that evening [...] other complaints or concerns reported this time [facility] Medical History HTN (hypertension) Diabetes Acid [...] 09:08 Surgical History H/O umbilical hernia repair [place] teeth extracted Social History (Updated 07/21/25 @ [...] 70.4 H Lymph % (Auto) 10.4 L [place] % (Auto) 15.8 H Eos % (Auto) [...] Clarity Clear Urine pH 6.5 Ur Specific [place] 1.010 Urine Protein 30 H Urine Glucose [...] (Auto) Neut % (Auto) Lymph % (Auto) [place] % (Auto) Eos % (Auto) Baso % [...] Color Urine Clarity Urine pH Ur Specific [place] Urine Protein Urine Glucose (UA) Urine Ketones [...] edema. Mild mediastinal adenopathy. Cirrhosis. Reading Location: [id number] Rhythm Strip Rhythm Strip: Sinus Tach Rate: [...] acid level Disposition Disposition: Acute Care Hospital [facility] Discharge Date/Time: 07/21/25 12:46 What to do if you have Problems For any increased pain, shortness of breath, bleeding, nausea or vomiting, chestpain, or any unexpected problems, contact your Primary Care Provider. Call [facility] ([phone]) or report to the closest Emergency Room. Call 911 if necessary. 07/21/25 1514 <Electronically signed by Denice Leal DO> Cosigner Signature (if applicable): CC: Dr. Alis Duran MD ~ Signed [facility] Work Phone: 1(189) 109-949609-07-2025 Discharge summary [facility] Medical Records Department [address] [place] [address] Emergency Department Summary 07/21/25 MR#: [id number] Acct: [id number] Name: LEON RIDER Rep #:[id number] : 1980 45 From: Denice Pineda PCP: Dr. Alis Duran MD Status:ADM IN Location: [address] History of Present Illness Chief Complaint: Chest Pain Informant: patient Narrative Narrative: Patient is a 45-year-old male with history of diabetes, hypertension, cirrhosis due to GLASS presenting for chest pain, shortness of breath, fatigue and continued right leg pain. Patient states that 8PM last night he developed dullache pressure in his chest. Lasted for couple minutes. He was working at the [employer] at that time. He returned that evening [...] other complaints or concerns reported this time [facility] Medical History HTN (hypertension) Diabetes Acid [...] 09:08 Surgical History H/O umbilical hernia repair [place] teeth extracted Social History (Updated 07/21/25 @ [...] 70.4 H Lymph % (Auto) 10.4 L [place] % (Auto) 15.8 H Eos % (Auto) [...] Clarity Clear Urine pH 6.5 Ur Specific [place] 1.010 Urine Protein 30 H Urine Glucose [...] (Auto) Neut % (Auto) Lymph % (Auto) [place] % (Auto) Eos % (Auto) Baso % [...] Color Urine Clarity Urine pH Ur Specific [place] Urine Protein Urine Glucose (UA) Urine Ketones [...] edema. Mild mediastinal adenopathy. Cirrhosis. Reading Location: [facility] Rhythm Strip Rhythm Strip: Sinus Tach Rate: [...] acid level Disposition Disposition: Acute Care Hospital [facility] Discharge Date/Time: 07/21/25 12:46 What to do if you have Problems For any increased pain, shortness of breath, bleeding, nausea or vomiting, chestpain, or any unexpected problems, contact your Primary Care Provider. Call [facility] ([phone]) or report tothe closest Emergency Room. Call 911 if necessary. 07/21/25 1514 Cosigner Signature (if applicable): CC: Dr. Alis Duran MD ~ Signed [facility]09-07-2025 History and physical note Author Timoteo Cooper [facility] Note Date/Time July 21, 2025 12:42pm [facility] Medical Records Department [address] [place] [address] H&P Exam - Hospitalist 07/21/25 1150 MR#: [id number] Acct: [id number] Name: LEON RIDER Rep #:[id number] : 1980 45 From: Timoteo Mccarthy PCP: Dr. Alis Duran MD Status:ADM IN Location: [address] 1 HPI - General General Date [...] to 10 years ago. 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 [facility] Medical History HTN (hypertension) Diabetes Acid reflux Rectal bleeding Hemorrhoids Home Medications ?Medication ?Instructions ?Recorded ?Last Taken ?Type Diltiazem 10mg/Lidocaine 50mg See Rx Instructions [place] . BID #30 01/28/25 Unknown Rx Suppository [...] 09:08 Surgical History H/O umbilical hernia repair [place] teeth extracted Social History household members: spouse [...] 70.4 H, Lymph % (Auto) 10.4 L, [place] % (Auto) 15.8 H, Eos % (Auto) [...] edema. Mild mediastinal adenopathy. Cirrhosis. Reading Location: [id number] Assessment & Plan Assessment/Plan (1) Cellulitis: QUALIFIERS: [...] shock if needed Total time spent in zlyy-dl-edij encounter in discussion of advanced directive 17 [...] 70.4 H, Lymph % (Auto) 10.4 L, [place] % (Auto) 15.8 H, Eos % (Auto) [...] Clarity Clear, Urine pH 6.5, Ur Specific [place] 1.010, Urine Protein 30 H, Urine Glucose [...] adenopathy. Cirrhosis. Charges/Coding Visit Charges Inpatient E&M: 03084 Init Hosp L3 Procedures Hospitalists Procedures: 48669 Advncd Care Plan 30 Min 07/21/25 1242 <Electronically signed by Timoteo Cooper MD> Cosigner Signature (if applicable): CC: Dr. Alis Duran MD; Dr. Timoteo Cooper MD~ Signed [facility] Work Phone: [phone]) 310-514609-07-2025 Evaluation note* Diagnosis Onset Date Resolution Status [...] bilirubin elevated acute July 21 025 12:11pm [facility] Work Phone: [phone]) [phone] Evaluation note* Diagnosis Onset Date Resolution Status [...] 21, 2025 12:11pm Anemia noneactive July 8:21am [facility] Work Phone: [phone] Evaluation note* Diagnosis Onset Date Resolution Status [...] 19 1:58pm Anemia noneactive August 19 1:58pm [facility] Work Phone: [phone]) 604-303409-07-2025 History and physical note [facility] Medical Records Department [address] [place] [address] H&P Exam - Hospitalist 07/21/25 1150 MR#: [id number] Acct: [id number] Name: LEON RIDER Rep #:[id number] : 1980 45 From: Timoteo Mccarthy PCP: Dr. Alis Duran MD Status:ADM IN Location: [facility] [id number] 1 HPI - General General Date of [...] to 10 years ago. 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 [facility] Medical History HTN (hypertension) Diabetes Acid reflux Rectal bleeding Hemorrhoids Home Medications ?Medication ?Instructions ?Recorded ?Last Taken ?Type Diltiazem 10mg/Lidocaine 50mg See Rx Instructions [place] . BID #30 01/28/25 Unknown Rx Suppository [...] 09:08 Surgical History H/O umbilical hernia repair [place] teeth extracted Social History household members: spouse [...] 70.4 H, Lymph % (Auto) 10.4 L, [place] % (Auto) 15.8 H, Eos % (Auto) [...] edema. Mild mediastinal adenopathy. Cirrhosis. Reading Location: [facility] Assessment & Plan Assessment/Plan (1) Cellulitis: QUALIFIERS: [...] shock if needed Total time spent in dyvt-nq-djky encounter in discussion of advanced directive 17 [...] 70.4 H, Lymph % (Auto) 10.4 L, [place] % (Auto) 15.8 H, Eos % (Auto) [...] Clarity Clear, Urine pH 6.5, Ur Specific [place] 1.010, Urine Protein 30 H, Urine Glucose [...] adenopathy. Cirrhosis. Charges/Coding Visit Charges Inpatient E&M: 80157 Init Hosp L3 Procedures Hospitalists Procedures: 30492 Advncd Care Plan 30 Min 07/21/25 1242 Cosigner Signature (if applicable): CC: Dr. Alis Duran MD; Dr. Timoteo Cooper MD~ Signed [facility]09-07-2025 Radiology Diagnostic study note [facility] Imaging Services [address] [place] [address] CTA Chest W/WO Contrast MR#: [id number] Acct: [id number] Name: LEON RIDER Rep #: [id number] : 1980 M 45 From: Giorgio Salinas MD PCP: Dr. Alis Duran MD Status: REG ER Study:CTA Chest W/WO Contrast Date of Exam: 07/21/25 Exam# [id number] Ordering Dr: Krystin Leal DO PROCEDURE: CTA [...] edema. Mild mediastinal adenopathy. Cirrhosis. Reading Location: [facility] CC: Dr. Alis Duran MD; Dr. Denice Leal, DO ~ Sound Assistant: Signed [facility]03-17-2025 Evaluation note* Diagnosis Onset Date Resolution Status Admit Date Anal fissure acute January 28, 2025 2:30pm [facility] Work Phone: [phone]) 494-880805-09-2024 History of Present illness Narrative* Zack Vigil MD - 03/22/2024 9:30 AM EDT Subjective Patient ID: Leon Rider is a 43 y.o. male who presents for Follow-up. Follow-up diabetes hypertension hyperlipidemia cirrhosis HPI Patient feeling okay. In the process of moving, they are moving up to [facility]. Very active packing and moving boxes. No further episodes of chest pain or shortness of breath since last visit, he ultimately did not end up getting a stress test. Review of Systems No weight exchange floor manager 4 months Objective Visit Vitals BP 130/80 [...] after he moves documented [facility] Work Phone: [phone]) [phone] History of Present illness Narrative* Bernabe Dooley [...] Urine Colorless (*) Clarity, Urine Clear Specific [place] Urine 1.010 pH, Urine 6.5 Leukocytes, Urine [...] Procedure Abnormality Status --------- ------ CBC auto differential[[id number]] Abnormal Final result Please view results for [...] Dooley MD 09/25/23 0735 documented in this encounterSelect [facility]ty Hospital - [id number] Hospital Discharge instructions* Discharge Instructions* Suki Bales [...] sent through Care Everywhere. * Esophageal Varices (Palestinian) documented in this encounterSelect Specialty Hospital - [id number] History of Present illness Narrative* Misty Dodson RN - 02/16/2023 9:[address] Vincent Moses- Portal Hypertensive Gastropathy, (PHG) , Gastric Antral Vascular Ectasia Endoscopic report given to FRAME NAILER - Suki Bales documented in this encounterSelect Specialty Hospital - EriePzzkol12-15-6687 Attending History and physical note* Vincent Moses [...] note were not included. Kenya Andre NP [facility] Hospitalists History and Physical Same Day Surgery Patient Name:Leon Rider :1980 Admit Date: 4041217 Physicians: Zakc Vigil MD (PCP) Perpetual Assessment: Leon Rider is a 42 y.o. male who presented for EGD, per the request of Dr. Moses. [facility] has been asked to see the [...] [] Microbiology [x] Outside Records [] Family [employer] Phone: [phone]) [phone] History and physical note* Kenya Andre NP - 02/16/2023 9:00 AM EDT Images from the original note were not included. Kenya Andre NP [facility] Hospitalists History and Physical Same Day Surgery Patient Name:Leon Rider :1980 Admit Date: 4041217 Physicians: Zack Vigil MD (PCP) Perpetual Assessment: Leon Rider is a 42 y.o. male who presented for EGD, per the request of Dr. Moses. [facility] has been asked to see the [...] [] Microbiology [x] Outside Records [] Family [employer] Phone: 1([phone]) 412-901904-05-2023 History and physical note* Vincent oMses MD [...] note were not included. Kenya Andre NP [facility] Hospitalists History and Physical Same Day Surgery Patient Name:Leon Rider :1980 Admit Date: 4041217 Physicians: Zack Vigil MD (PCP) Perpetual Assessment: Leon Rider is a 42 y.o. male who presented for EGD, per the request of Dr. Moses. [facility] has been asked to see the [...] note were not included. Kenya Andre NP [facility] Hospitalists History and Physical Same Day Surgery [id number]1980 Admit Date: 4041217 Physicians: Zack Vigil MD (PCP) Perpetual Assessment: Leon Rider is a 42 y.o. male who presented for EGD, per the request of Dr. Moses. [facility] has been asked to see the [...] History Chief Complaint: Presents for EGD HPI: Loen Rider is a 42 y.o. male with [...] Outside Records [] Family documented in this encounterSelect Specialty Hospital - [id number] Procedure note* Suki Bales RN - 02/16/2023 9:00 AM EDT Pt and verbalize understanding of d/c instructions. [facility] ErieFmrmmy24-62-3248 Procedure note* Suki Bales RN - 02/16/2023 9:00 AM EDT Pt and verbalize understanding of d/c instructions. documented in this [facility]02-09-2023 History of Present illness Narrative* Cyn Thomas RN - 12/23/2022 10:[address] Mishra, Two bandings applied. Report given to Bianca WAYNE. documented in this [facility]02-09-2023 Hospital Discharge instructions* Discharge Instructions* Bianca Barbour RN - 12/23/2022 10:27 AM EST Follow up with your Primary Care Physician Dr. Mishra can be reached at [phone]. Endoscopy Discharge Instructions Your Procedure Was: Esophagogastroduodenoscopy [...] return to work today. documented in this encounterSelect Specialty Hospital - [id number] History and physical note* Paul Tad V - 12/23/2022 9:30 AM EST Images from the original note were not included. GASTROENTEROLOGY OUTPATIENT PRE-PROCEDURE NOTE Patient Name: Leon Rider MR #: [id number] Indication: Esophageal varices Brief History: Follows with [...] with endoscopic procedure as scheduled. Paul Mishra [employer] Phone: [phone]) [phone] History and physical note* Paul Mishra V - 12/23/2022 9:30 AM EST Images from the original note were not included. GASTROENTEROLOGY OUTPATIENT PRE-PROCEDURE NOTE Patient Name: Leon Rider MR #: [id number] Indication: Esophageal varices Brief History: Follows with [...] as scheduled. Paul Mishra documented in this encounterSelect Specialty Hospital - [id number] Procedure note* Hannah Morales RN - 12/23/2022 9:30 AM EST Patient reports that he would like to come to the appointment of 830 arrival maybe a few minutes late due to has PT appointment prior. Medications as instructed with sips of water on the morning of surgery. Please ensure you have a diesel pile driver operator, age 18 or greater, and someone with your for 24 hours after anesthesia. No big decisions day after surgery due to anesthesia Receiver Setter: Zelda- Accept Emergency blood transfusion: Yes [facility] ErieShmsfs19-97-7370 Procedure note* Hannah Morales RN - 12/23/2022 9:30 AM EST Patient reports that he would like to come to the appointment of 830 arrival maybe a few minutes late due to has PT appointment prior. Medications as instructed with sips of water on the morning of surgery. Please ensure you have a diesel pile driver operator, age 18 or greater, and someone with your for 24 hours after anesthesia. No big decisions day after surgery due to anesthesia Receiver Setter: Zelda- Accept Emergency blood transfusion: Yes documented in this encounterSelect Specialty Hospital - ErieEoqonf26-03-4018 History and physical note* Susana Leblanc, - 10/27/2022 3:45 PM EST Images from the original note were not included. GASTROENTEROLOGY OUTPATIENT PRE-PROCEDURE NOTE Patient Name: Leon Rider MR #: [id number] Indication: EV banding Brief History: 42M GLASS [...] endoscopic procedure as scheduled. Susana Leblanc DO [employer] Phone: [phone]) [phone] History and physical note* Susana Leblanc DO - 10/27/2022 3:45 PM EST Images from the original note were not included. GASTROENTEROLOGY OUTPATIENT PRE-PROCEDURE NOTE Patient Name: Leon Rider MR #: [id number] Indication: EV banding Brief History: 42M GLASS [...] scheduled. Susana Leblanc DO documented in this encounterSelect Specialty Hospital - [id number] Procedure note* Apolonia Dave RN - 10/27/2022 3:[address] Leblanc in to see pt and to discuss findings of procedure . This nurse reviewed d/c instructions also . Both voiced understanding [address]14-2022 Procedure note* Apolonia Dave RN - 10/27/2022 3:[address] Leblanc in to see pt and to discuss findings of procedure . This nurse reviewed d/c instructions also . Both voiced understanding documented in this encounterSelect Specialty Hospital - EriePdlvbt10-18-6402 Hospital course Narrative* Ansley Ballard RN - [...] CPAP machine. * You must have a diesel pile driver operator to take you home Please be sure to bring the following on the day of procedure: diesel pile driver operator's license or photo ID , and current insurance cards. You may also bring copies of your Living Will or Healthcare Power of Animal Physiologist if available. documented in this [facility]06-01-2022 Hospital course Narrative* Loli Zee MD - 04/14/2022 5:26 PM EDT Images from the original note were not included. Loli Zee MD [facility] Hospitalists DISCHARGE SUMMARY Leon Rider . [...] will need to follow-up with a new flight control tower operator/railroad design consultant -No acute issues, recommended outpatient follow-up -Continue [...] Your Medications These medications were sent to [facility] [id number] - [place], [place] - [address] [address] [facility] [address] atenoloL 25 mg tablet hydrOXYzine HCL 25 [...] ibuprofen, aleve, naprosyn etc documented in this encounterSelect Specialty Hospital - ErieNliykp91-83-8698 History of Present illness Narrative* Loli Zee MD - 04/14/2022 2:35 PM EDT Images from the original note were not included. Loli Zee MD [facility] Hospitalists DAILY PROGRESS NOTE Patient Name: [...] will need to follow-up with a new flight control tower operator/railroad design consultant -No acute issues, recommended outpatient follow-up -Continue [...] Back up Transition plan Home Health Care Polymer Scientist Note Patient mentation at time of initial Assessment: A&Ox4. Patient Directives: Has no advance directives and declining information. Patient Next of Kin / Surrogate Decision Maker is his , Zelda Rider. Insurance provider confirmed from chart: Confirmed and correct. PCP confirmed from chart: Confirmed and correct. Living Situation: Patient resides: 2-story house w/basement. Patient with following DME prior to this admission: CPAP through [facility], no additional DME. Steps to [...] Independent . [facility] [address]. Patient is able to afford medications. [...] unspecified type [R06.00] [address] [place] [address] confirmed from facesheet/demographics. CODE STATUS at time [...] []Home health care []Inpatient Rehab []correction facility []assembler body care []Other: Discharge Destination: [x]Home with []No Needs []Home health care []Inpatient Rehab []correction facility []assembler body care []Pending evaluation []TBD []Other: Facility info [...] nausea, vomiting, abdominal pain, or further complants. [place] Coma Scale Score: 15 Patient History Past [...] a plane, noting that he traveled to [place] and back last month, about a 2 [...] negative. I discussed patient's care with admitting [facility] physician, and patient is excepted to their service. Procedures CAHRLES Maciel 04/13/22 1435 CHARLES Maciel 04/13/22 1805 documented in this encounterSelect Specialty Hospital - [id number] History and physical note* Tye Holbrook MD - 04/13/2022 6:03 PM EDT Images from the original note were not included. Arias Holbrook MD [facility] Hospitalists History and Physical Patient Name:Leon [...] will need to follow-up with a new flight control tower operator/railroad design consultant -No acute issues Thrombocytopenia -In the setting [...] Resp: 18 (04/13 172) BP: 167/84 (04/13 1726) GENERAL: NAD EYES: Conjunctiva and sclera clear, [...] [] Family Time Spent: documented in this encounterSelect Specialty Hospital - EriePjgdgs60-06-8713 History of Present illness Narrative* Jean Carlos Isidro RN - 04/22/2021 8:50 AM EDT Reviewed dc with pt and his s/o. All questions answered. Pt in possession of paper oxy Rx. documented in this [id number] Miscellaneous Notes* Op Note - Sukhwinder Villalobos MD - 04/22/2021 8:01 AM EDT LEON RIDER [id number] 1980 DATE 04/22/2021 OPERATIVE REPORT SURGEON SUKHWINDER [...] well. SUKHWINDER VILLALOBOS MD D 04/22/2021 07:46 [id number] T 04/22/2021 07:59 BP/MODL * Brief Op Note - Sukhwinder Villalobos MD - 04/22/2021 7:40 AM EDT Brief Post Operative Note Patient Name: Leon Rider : 1980 (40 y.o.) Date of Service: 04/22/2021 CSN: [id number] Procedure(s): REPAIR UMBILICAL HERNIA WITH MESH Pre-Operative Diagnoses: * Umbilical hernia without obstruction and without gangrene [K42.9] Post-Operative Diagnoses: * Same as Pre-Op Diagnosis * Umbilical hernia without obstruction and without gangrene [K42.9] Surgeon(s) and Role: * Sukhwinder Villalobos MD - Primary Anesthesiologist: Ha Alvarado MD CHEMICAL BLENDER: Tasneem Flores CRNA Caterers Helper: Edith Feldman RN Scrub Person: ST Chris Scrub Person Orientee: ST Sivan Scrub Person Assist: ST Kyler ARMATURE AND ROTOR WINDER: Johana Swan RN Operative findings: umbilical hernia Intra and immediate post-operative complications: none Type of anesthesia used: General Estimated blood loss: 10 mL Estimated urine output: Refer to surgical log Specimen(s): * No specimens in log * Implant(s): Implant Name Type Inv. Item Serial No. Batter Out Lot No. LRB No. Used Action PATCH 1.7IN HERNIA W/STRAP SM [address] - [id number] PATCH 1.7IN HERNIA W/STRAP SM [employer] [employer] [id number] N/A 1 Implanted Drain(s): * No LDAs found * Wound(s): Wound 04/22/21 Surgical Wound Abdomen (Active) Sukhwinder Villalobos MD 04/22/2021 7:40 AM documented in this [id number] History and physical note* Sukhwinder Villalobos MD - 04/22/2021 6:26 AM EDT INTERVAL HISTORY AND PHYSICAL Patient Name: Leon Rider Admit Date: 6081215 MR #: [id number] : 1980 The H&P has been reviewed and the patient has been examined. I concur with the findings of the H&P. There are no significant changes. It is appropriate to proceed with the planned procedure. Sukhwinder Villalobos MD 04/22/2021 6:26 AM documented in this [id number] Nurse Note* Aleyda Jett RN - 04/17/2021 10:49 AM EDT Patient Instructions for [facility]: Prior to arrival: Please be sure to wear loose, comfortable clothing and non-skid shoes Bring your health insurance information and a photo ID, as well as your Living Will or Durable Power of Animal Physiologist for Healthcare if it is available to you. Bring your cane/walker any applicable assistive device. If you currently use a CPAP, please bring this device with you on the day of surgery. Bring a list of your medications with the name of the medication, dose and how often you are takingit. Be sure to include herbal preparations and vkth-nze-sazmcel medications on this list. Do not have [...] of lotions, perfumes or powders. All nail kenyan is to be removed from fingernails and [...] the day of your surgery/procedure. Parking at [facility] is free. Please park in the lot in front of the main lobby. Enter the Main Entrance where a Dock Worker Liaison at the information desk will greet [...] to drive yourself home. documented in this encounterAkioHealthConsult note* Clinical Note Date No Information [facility] Work Phone: Discharge summary* Clinical Note Date No Information [facility] Work Phone: Evaluation note* Diagnosis Umbilical hernia without obstruction and without gangrene- Primary Post-op pain Other acute postoperative pain documented in this encounter [facility] note* Diagnosis Body mass index 45.0-49.9, adult (CMS/HCC)- Primary Body Mass Index 45.0-49.9, adult documented in this encounter [facility] note* Diagnosis Stone, kidney Calculus of kidney documented in this encounter [facility] note* Diagnosis Dyspnea, unspecified type- Primary documented in this encounter [facility] note* Diagnosis GLASS (nonalcoholic steatohepatitis) Other chronic nonalcoholic liver disease documented in this encounter [facility] note* Diagnosis Esophageal varices with bleeding (CMS/HCC) documented in this encounter [facility] note* Diagnosis Calculus of kidney Calculus of kidney with calculus of ureter documented in this encounter [facility] note* Diagnosis Esophageal varices without bleeding, unspecified esophageal varices type (CMS/HCC) [I85.00 (ICD-10-CM)]- Primary documented in this encounter [facility] note* Diagnosis Esophageal varices without bleeding, unspecified esophageal varices type (CMS/HCC) [I85.00 (ICD-10-CM)]- Primary documented in this encounter [facility] note* Diagnosis Painless hematuria- Primary documented in this encounter [facility] note* Diagnosis Hyperlipidemia, unspecified hyperlipidemia type- Primary Primary hypertension Unspecified essential hypertension Cirrhosis of liver without ascites, unspecified hepatic cirrhosis type (CMS/HCC) (HCC) Type 2 diabetes mellitus without complication, without long-term current use of insulin (CMS/HCC) (HCC) documented in this encounter [facility] Work Phone: Evaluation note* Type Assessment Date No Information [facility] Work Phone: Evaluation note* Diagnosis Onset Date Resolution Status Admit Date Cellulitis acute Aidee 7th, 2025 12:11pm Chest pain, atypical acute Sept 2024 12:11pm [facility] Work Phone: History and physical note* Clinical Note Date No Information [facility] Work Phone: History and physical note Author Timoteo Cooper [facility] Note Date/Time July 21, 2025 12:42pm [facility] Medical Records Department [address] [place] [address] H&P Exam - Hospitalist 07/21/25 1150 MR#: [id number] Acct: [id number] Name: LEON RIDER Rep #:[id number] : 1980 45 From: Timoteo Mccarthy PCP: Dr. Alis Duran MD Status:[facility] - General General Date of [...] to 10 years ago. 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 [facility] Medical History HTN (hypertension) Diabetes Acid reflux Rectal bleeding Hemorrhoids Home Medications ?Medication ?Instructions ?Recorded ?Last Taken ?Type Diltiazem 10mg/Lidocaine 50mg See Rx Instructions [place] . BID #30 01/28/25 Unknown Rx Suppository [...] 09:08 Surgical History H/O umbilical hernia repair [place] teeth extracted Social History household members: spouse [...] 70.4 H, Lymph % (Auto) 10.4 L, [place] % (Auto) 15.8 H, Eos % (Auto) [...] edema. Mild mediastinal adenopathy. Cirrhosis. Reading Location: [id number] Assessment & Plan Assessment/Plan (1) Cellulitis: QUALIFIERS: [...] shock if needed Total time spent in izss-yr-ngke encounter in discussion of advanced directive 17 [...] 70.4 H, Lymph % (Auto) 10.4 L, [place] % (Auto) 15.8 H, Eos % (Auto) [...] Clarity Clear, Urine pH 6.5, Ur Specific [place] 1.010, Urine Protein 30 H, Urine Glucose [...] adenopathy. Cirrhosis. Charges/Coding Visit Charges Inpatient E&M: 98623 Init Hosp L3 Procedures Hospitalists Procedures: 59753 Advncd Care Plan 30 Min 07/21/25 1242 <Electronically signed by Timoteo Cooper MD> Cosigner Signature (if applicable): CC: Dr. Alis Duran MD; Dr. Timoteo Cooper MD~ Signed [facility] Work Phone: History of Present illness Narrative* Encounter Date Complaint History Of Prese nt Illness No Information [facility] Work Phone: Hospital Discharge instructions* Instructions* Lauren Boyd CNP - 04/22/2021 Umbilical Hernia Repair: What to [...] Log into your personal health record on [email or web address] and enter J197 in the Education box to learn more about Umbilical Hernia Repair: What to Expect at Home. Current as of: October 03, 2015 Content Version: 11.0 7844-2604 [employer]. Care instructions adapted under license by your healthcare professional. If you have questions about a medical condition or this instruction, always ask your healthcare professional. [employer] disclaims any warranty or liability for your [...] sugar is high. Do not take any zyej-mkh-qkbudxb medicines, such as pain relievers, decongestants, or [...] Log into your personal health record on [email or web address] and enter L970 in the Education box to learn more about Diabetes Sick-Day Plan: Care Instructions. Current as of: April 05, 2016 Content Version: 11.0 2071-1875 Newvem. Care instructions adapted under license by your healthcare professional. If you have questions about a medical condition or this instruction, always ask your healthcare professional. [employer] disclaims any warranty or liability for your [...] Care Everywhere. * EGD (Upper Endoscopy): Post-op (Palestinian) * Monitored Anesthesia Care: MAC: General Info (Palestinian) [facility]* Attachments The following attachments cannot be sent through Care Everywhere. * Hematuria (Palestinian) [facility]charge instructions Ambulatory Orders* Prior Authorization Referral - ONC/HEM Location: None Selected * Gastroenterology Location: None Selected [facility] Work Phone: Hospital Discharge instructionsAdditional Instructions Follow-up with your primary care provider in the next 3 to 5 days if not improving. Return with new or worsening symptoms. Clear liquid diet, advance as tolerated.[facility] Work Phone: Instructions* Date Instruction Additional Infor mation No Information [facility] Work Phone: Progress note* Clinical Note Date No Information [facility] Work Phone: Progress note Author León Mccray [facility] Note Date/Time August 12, 2025 9:27am [facility] [address] [place] [address] OFFICE VISIT Date of Service: 08/12/25 0823 MR#: [id number] Acct: [id number] Name: LEON RIDER Rep #: [id number] : 1980 From: León Mccray MD Age/Sex: 45/M Location: [facility] Status: Signed HPI Subjective Date of Service 08/12/25 Chief Complaint Referred for anemia. 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 He has had esophageal varices which has been banded in [place]. Denies recent bleeding [facility] Medical History Hx of cirrhosis Anemia Chronic idiopathic thrombocytopenia HTN (hypertension) Diabetes Acid reflux Rectal bleeding Hemorrhoids Surgical History H/O umbilical hernia repair [place] teeth extracted Family History Other Diabetes Heart [...] Continuous Positive Airway 07/23/25 08/12/25 H istory Pressure([facility] INFORMATIONAL USE ONLY) bumetanide 2 mg tablet [...] applicable) CC: Dr. Alis Duran MD ~ [facility] Work Phone: Progress note Author León Mccray [facility] Note Date/Time August 19, 2025 3: 13pm [facility] [address] [place] [address] OFFICE VISIT Date of Service: 08/19/25 1447 MR#: [id number] Acct: [id number] Name: LEON RIDER Rep #: [id number] : 1980 From: León Mccray MD Age/Sex: 45/M Location[facility] Status: Signed HPI Subjective Date of Service 08/19/25 Chief Complaint F/u for anemia. 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 He has had esophageal varices which has been banded in [place]. Denies recent bleeding. Had blood work done and comes for follow up. [facility]els well[facility] Hx of cirrhosis Anemia Chronic idiopathic thrombocytopenia HTN (hypertension) Diabetes Acid reflux Rectal bleeding Hemorrhoids Surgical History H/O umbilical hernia repair [place] teeth extracted Family History Other Diabetes Heart [...] Continuous Positive Airway 07/23/25 08/19/25 H istory Pressure([facility] INFORMATIONAL USE ONLY) bumetanide 2 mg tablet [...] applicable) CC: Dr. Alis Duran MD ~ [facility] Work Phone: Reason for referral (narrative)* Reason For Referral No Information [facility] Work Phone: Reason for referral (narrative)No reason for referral [facility] Work Phone: Summary Purpose Family History No Family History Records Found Family Member Type Diagnosis Age At Onset No Information Relationship Condition Age at Onset Recorded Date/T jean Not Specified Diabetes mellitus Unknown Cardiac disease Unknown Advance Directives No Advanced Directives Records FoundDocuments on File Type Date Recorded 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 No July 21, 2025 9:22am Advance Directive Response Recorded Date/ Time Do you have a Healthcare Power of Animal Physiologist? No July 21, 2025 1:36pm Advance Directive Response Recorded Date/ Time Do you have a Healthcare Power of Animal Physiologist? No August 21, 2025 4:38pm Do you have a Healthcare Power of Animal Physiologist? No July 21, 2025 1:36pm Procedure Findings Note [facility] Patient Name: Leon Adry Procedure Date: 06/26/2020 1:38 PM Date of [...] not included)... Note Patient: LEON RIDER RN: ([id number] Age: 40 years Sex: Male : 1980 [...] summary document to your follow up appointments. [facility] 06/26/20 14:28 [address] [place]. [address] PATIENT INFORMATION Name: LEON RIDER Address: [address] [place] [address] [place] [address] Age: 40 Years Phone: [phone] : 1980 12:00 MRN: ([id number] Sex: Male Race: White Ethnicity: Not Hispan/Lat Admitted From: Clinic or [facility] Medical Service: Gastroenterology Nurse [facility]Bed[facility] Admit Date: 06/26/2020 12:03 PCP: [...] summary document to your follow up appointments. [facility] 06/26/20 14:28 [address] [place]. [address] PATIENT INFORMATION Name: LEON RIDER Address: [address] [place] [address] [place] [address] Age: 40 Years Phone: [phone] : 1980 12:00 MRN: ([facility])-[id number] Sex: Male Race: White Ethnicity: Not Hispan/Lat Admitted From: Clinic or [facility] Medical Service: Gastroenterology Nurse Unit/Bed: ([place]) [facility] N[facility]A Admit Date: 06/26/2020 12:03 PCP: Musa [...] Referral Specialty Diagnoses / Procedures Referred By Adrian chris Referred To Contact Radiology Diagnoses Body mass index 45.0-49.9, adult (CMS/HCC) Procedures US Abdomen Limited Dandy Healy MD [address] [place] [address] [facility] [place] Referral ID Status Reason Start Date Expiration Date V isits Requested Visits Authorized [id number] Pending Review 10/13/2021 04/11/2022 1 1 Specialty Diagnoses / Procedures Referred By Contac t Referred To Contact Radiology Diagnoses GLASS (nonalcoholic steatohepatitis) Procedures US Abdomen Limited Nino, MD Thom [address] [facility] [facility] [address] [place] [address] [facility] [place] Referral ID Status Reason Start Date Expiration Date V isits Requested Visits Authorized [id number] Authorized 07/15/2022 01/11/2023 1 1 Specialty Diagnoses / Procedures Referred By Contac t Referred To Contact Diagnoses Esophageal varices with bleeding (CMS/HCC) Procedures [facility]GD [facility]est[facility] - [facility]; [facility] Carlos Jiménez MD [address] [place] [address] [facility] [place] Referral ID Status Reason Start Date Expiration Date V isits Requested Visits Authorized [id number] Authorized 09/28/2022 03/27/2023 1 1 Specialty Diagnoses / Procedures Referred By Contac t Referred To Contact Diagnoses Esophageal varices without bleeding (CMS/HCC) Procedures [facility]GD [facility]est[facility] - MAC; [facility] Paul Mishra V [address] [place] [address] [facility] [place] Referral ID Status Reason Start Date Expiration Date V isits Requested Visits Authorized [id number] Authorized 12/16/2022 01/16/2023 1 1 Specialty Diagnoses / Procedures Referred By Contac t Referred To Contact Diagnoses Esophageal varices without bleeding (CMS/HCC) Procedures EGD Anesthesia - MAC; [facility] EGD Anesthesia - MAC; [facility] Vincent Moses MD [address] [address] [facility] [place] Referral ID Status Reason Start Date Expiration Date V isits Requested Visits Authorized [id number] Authorized 02/16/2023 03/18/2023 1 1 Chief Complaint [...] section and content) DATE CREATED AUTHOR 12/25/2020 [facility] DATE CREATED AUTHOR AUTHOR'S ORGANIZ ATION 04/10/2021 [facility] DATE CREATED AUTHOR AUTHOR'S ORGANIZ ATION 04/22/2021 [facility] DATE CREATED AUTHOR AUTHOR'S ORGANIZ ATION 03/20/2022 [facility] DATE CREATED AUTHOR AUTHOR'S ORGANIZ ATION 02/18/2023 [facility] DATE CREATED AUTHOR AUTHOR'S ORGANIZ ATION 08/04/2023 [facility] DATE CREATED AUTHOR AUTHOR'S ORGANIZ ATION 09/25/2023 [facility] DATE CREATED AUTHOR AUTHOR'S ORGANIZ ATION 03/24/2024 [facility] DATE CREATED AUTHOR AUTHOR'S ORGANIZ ATION 09/19/2025 [facility] Reason for Visit (unrecogniz ed section and content) Status Reason Specialty Diagnoses / Procedures Referre d By Contact Referred To Contact Diagnoses Umbilical hernia without obstruction and without gangrene Umbilical hernia without obstruction and without gangrene [K42.9] Procedures NH REPAIR UMBILICAL HERNIA >= 5 YRS REDUC Sukhwinder Villalobos MD [address] [place] [address] Reason Comments Panic Attack Per EMS report patie nt had anxiety attack at work; Patient states that symptoms resolved on arrival to ED. Specialty Diagnoses / Procedures Referred By Adrian t Referred To Contact Diagnoses SOB (shortness of breath) Dyspnea, unspecified type Procedures Tye Holbrook MD [address] [facility] [address] [place] [address] [place] [id number] Referral ID Status Reason Start Date Expiration Date Visits Re quested Visits Authorized [id number] 1 1 Specialty Diagnoses / Procedures Referred By Adrian t Referred To Contact Radiology Diagnoses GLASS (nonalcoholic steatohepatitis) Procedures US Abdomen Limited Oneill, MD Thom [address] [facility] [address] [place] [address] [facility] [place] Referral ID Status Reason Start Date Expiration Date V isits Requested Visits Authorized [id number] Authorized 07/15/2022 01/11/2023 1 1 Specialty Diagnoses / Procedures Referred By Contac t Referred To Contact Diagnoses Esophageal varices with bleeding (CMS/HCC) Procedures EGD Anesthesia - MAC; [facility] Cralos Jiménez MD [address] [place] [address] [facility] [place] Referral ID Status Reason Start Date Expiration Date V isits Requested Visits Authorized [id number] Authorized 09/28/2022 03/27/2023 1 1 Specialty Diagnoses / Procedures Referred By Contac t Referred To Contact Diagnoses Esophageal varices without bleeding (CMS/HCC) Procedures EGD Anesthesia - MAC; [facility] Paul Mishra V [address] [place] [address] [facility] [place] Referral ID Status Reason Start Date Expiration Date V isits Requested Visits Authorized [id number] Authorized 12/16/2022 01/16/2023 1 1 Specialty Diagnoses / Procedures Referred By Contac t Referred To Contact Diagnoses Esophageal varices without bleeding (CMS/HCC) Procedures EGD Anesthesia - MAC; [facility] EGD Anesthesia - MAC; [facility] Vincent Moses MD [address] [address] [facility] [place] Referral ID Status Reason Start Date Expiration Date V isits Requested Visits Authorized [id number] Authorized 02/16/2023 03/18/2023 1 1 Reason Comments [...] at 0915, For 1 dose, PACU (only) 0821 (Given - Provid er: Jean Carlos Isidro [...] 804 (Given - Provid er: Jean Carlos Isidro, ROSANA)809 (Given - Provider: Jean Carlos Isidro RN) [...] vomiting, nausea, Starting on Tue04/13/22 at 2119, -Give IV if patient is unable to [...]
Care Teams (unrecognized sec tion and content) Formula Bottler Relationship Specialty Start Date End Date Zack Vigil MD [address] [place] [phone] PCP - General Internal Medicine 12/02/21 Formula Bottler Relationship Specialty Start Date End Date Zack Vigil MD [address] [place] [address] PCP - General Internal Medicine 12/02/21 Formula Bottler Relationship Specialty Start Date End Date Zack Vigil MD [address] [place] [address] PCP - General Internal Medicine 12/02/21 Formula Bottler Relationship Specialty Start Date End Date Zack Vigil MD [address] [place] [address] PCP - General Internal Medicine 12/02/21 Formula Bottler Relationship Specialty Start Date End Date Zack Vigil MD [address] [place] [address] PCP - General Internal Medicine 12/02/21 Formula Bottler Relationship Specialty Start Date End Date Zack Vigil MD [address] [place] [address] PCP - General Internal Medicine 12/02/21 Formula Bottler Relationship Specialty Start Date End Date Zack Vigil MD [address] [place] [address] PCP - General Internal Medicine 12/02/21 Formula Bottler Relationship Specialty Start Date End Date Zack Vigil MD [address] [place] [address] PCP - General Internal Medicine 12/02/21 Formula Bottler Relationship Specialty Start Date End Date Zack Vigil MD [address] [place] [phone] PCP - General Internal Medicine 12/12/19 Roland Chavez [address] [place] [address] Referring Physician Otolaryngology 11/22/23 Thom Oneill MD [address] [place], [place] [address]katya Garg [address] [address] Referring Physician Gastroenterology 11/22/23 Name Effective Dates (start - stop) Status Members No Information Team Status: Active Member Role Status Dates Dr. Paul Smallwood MD Family Provider Active Alis Duran MD Primary Care Provider Active Team Status: Inactive Member Role Status Carole [...] St art: July 19, 2025 Yusef Mccoy VULCANIZER OPERATOR, VULCANIZER OPERATOR-C Attending Provider Active Start: July 19, 2025 Yusef Mccoy VULCANIZER OPERATOR, VULCANIZER OPERATOR-C Referring Provider Active Start: July 19, 2025 [...] 2025 End: July 19, 2025 Yusef Mccoy VULCANIZER OPERATOR, VULCANIZER OPERATOR-C Attending Provider Active Start: July 19, 2025 End: July 19, 2025 Yusef Mccoy VULCANIZER OPERATOR, VULCANIZER OPERATOR-C Referring Provider Active Start: July 19, 2025 [...] 19, 2025 End: July 19, 2025 [facility] VULCANIZER OPERATOR, VULCANIZER OPERATOR-C Attending physician Active Start: July 19, 2025 End: July 19, 2025 Yusef [facility] VULCANIZER OPERATOR, VULCANIZER OPERATOR-C Referring Provider Active Start: July 19, 2025 End: July 19, 2025 Team Status: Active Member Role/Relationship Status Dates Dr. Kalia Mcmaahn MD Attending physician Active Start: July 19, 2025 Yusef [facility] VULCANIZER OPERATOR, VULCANIZER OPERATOR-C Referring Provider Active Start: July 19, 2025 Team Status: Inactive Member Role/Relationship Status Dates Alis Duran MD Primary care physician Active S tart: July 21, 2025 End: July 26, 2025 Dr. Denice Leal , Emergency Departm ent Physician Active Start: July [...] BE BASED ON THE PRIMARY CLINICAL RECORDS. [facility]. provides no warranty or guarantee of the accuracy or completeness of information in this document.
== END | disposition home or self-care (01) ==
LOC: US 07:16
PROVIDERS: PCP Family Medicine; Referring Provider Student in an Organized Health Care Education/Training Program; Visit Provider Student in an Organized Health Care Education/Training Program
DX: K74.60 Unspecified cirrhosis of liver (principal); K76.0 Fatty (change of) liver, not elsewhere classified
CPT/HCPCS: 76705; 76981

== ENCOUNTER 2025-10-26 10:10 | Emergency (ER) | payer BC, MEDICAID, SELFPAY ==
[2025-10-26 10:10] VITALS: BP 153/76; PULSE 74; RESP 16; TEMP 37.1; O2SAT 97; BMI 46.4
--- NOTE | 2025-10-26 10:17 | EX.ED.DYSGE1 ---
HPI History of Present Illness Chief Complaint: Confusion [facility] Medical History Chronic venous stasis Anxiety Steatosis of liver SAÚL (obstructive sleep apnea) Kidney stones Cirrhosis Non-smoker Irregular heart beat Congestive heart failure (CHF) Chronic idiopathic thrombocytopenia Hx of cirrhosis Anemia HTN (hypertension) Diabetes Acid reflux Rectal bleeding Hemorrhoids Home Medications ?Medication ?Instructions ?Recorded ?Last Taken ?Type metformin 1,000 mg tablet 1,000 mg PO BID diabetes 01/28/25 10/09/25 History atorvastatin 20 mg tablet 20 mg PO DAILY cholesterol 07/21/25 10/09/25 History omeprazole 40 mg capsule,delayed 40 mg PO DAILY stomach 07/21/25 10/09/25 History release repaglinide 1 mg tablet 1 mg PO BID diabetes 07/21/25 10/09/25 History CPAP - Continuous Positive Airway 07/23/25 Unknown History Pressure([facility] INFORMATIONAL USE ONLY) bumetanide 2 mg tablet 2 mg PO BID #60 tabs 07/26/25 10/09/25 Rx nadolol 20 mg tablet 20 mg PO BID #60 tabs 07/26/25 10/09/25 Rx spironolactone 25 mg tablet 25 mg PO DAILY #30 tabs 07/26/25 10/09/25 Rx empagliflozin 10 mg tablet 10 mg PO QAM 10/03/25 10/09/25 History (Jardiance) ropinirole 0.5 mg tablet 0.5 mg PO QDAY 10/03/25 10/07/25 History potassium chloride 20 mEq 20 meq PO DAILY 10/09/25 10/07/25 History tablet,extended release lactulose 10 gram oral packet 10 g PO BID #30 ea 10/26/25 Unknown Rx Allergy/AdvReac Type Severity Reaction Status Date / Time No Known Allergies Allergy Verified 10/26/25 10:12 Family History Other Diabetes Heart disease Surgical History History of esophagogastroduodenoscopy (EGD) H/O umbilical hernia repair [place] teeth extracted Social History household members: spouse housing: house Smoking Status: Never smoker alcohol intake: never substance use type: does not use EXAM Physical Exam Const Vital Signs: 10/26/25 10:10 10/26/25 11:10 10/26/25 12:00 Temperature 98.8 F Temperature Source Oral Pulse Rate 74 76 73 Respiratory Rate 16 21 H 23 H Blood Pressure 153/76 H 131/58 H 134/59 H Blood Pressure Mean 101 82 84 Pulse Ox 97 95 92 Oxygen Delivery Method Room Air Room Air [facility] [place] Medical decision making narrative: HISTORY OF PRESENT ILLNESS: Chief complaint: Confusion 45-year-old male history of CHF, GLASS, hypertension, type 2 diabetes, chronic venous stasis changes presents with concern for confusion. Patient drove himself to the ED. He states has been feeling more confused over last several days. Denies falls or head trauma. He denies chest pain or palpitation. No syncope. No fever. No cough. No abdominal pain. No trouble urinating. No new rashes. REVIEW OF SYSTEMS: Pertinent positives: Confusion Pertinent negatives: [] PHYSICAL EXAM: Nursing triage notes reviewed, Vital signs reviewed Constitutional: please see main campus medical center HENT: MMM Eyes: Pupils equal round and reactive to light, Extraocular muscles intact, no scleral icterus Neck: No stridor, no JVD, full neck ROM Lungs: Clear to auscultation, No wheezing or rales. No increased work of breathing, no conversational dyspnea, no accessory muscle use, no nasal flaring. No respiratory distress noted Heart: Regular rate and rhythm, No murmurs, No rubs and No gallops, 2+ distal pulses (radial, femoral, posterior tibial) in all extremities Abdomen: Soft, there is no tenderness, rigidity, rebound or guarding, no obvious peritoneal signs, no palpable pulsatile abdominal masses, no auscultated abdominal bruit : No CVAT Extremities: Chronic venous stasis changes noted to bilateral lower extremities. Neuro: Alert, oriented to person place and time. At baseline. No new focal neurological deficits, cranial nerves II through XII intact, 5/5 strength in all present extremities. Intact sensation to light touch in all present extremities, 2+ reflexes bilateral patella tendons. Skin: No rash or lesions noted, no jaundice MEDICAL DECISION MAKING: Chief Complaint: please see HPI External records reviewed: Reviewed prior ED visit. Reviewed prior imaging studies. Reviewed prior cardiovascular testing. Reviewed echocardiogram from July 2025 showed ejection fraction 55% and stage I diastolic dysfunction. Reviewed prior cardiology visit. Factors affecting care: As per HPI Social determinants of health: denies illicit drug use History obtained from others: Consults: none [facility] Narrative: The patient was initially hemodynamically stable, afebrile and nontoxic-appearing. Exam without focal neurologic deficit. Patient was alert, making eye contact and was oriented to person place and time. He did not appear altered or confused. He was not somnolent. I considered the following differential diagnosis: ICH, metabolic or hepatic encephalopathy I obtained a broad lab and imaging workup to further determine if the patient was suffering from a life-threatening etiology. ALL IMAGES (IF OBTAINED) HAVE BEEN PERSONALLY REVIEWED AND INTERPRETED BY MYSELF. Initial EKG showed ?rate controlled a flutter rate of 77, normal axis, no obvious STEMI Repeat EKG prior to discharge showed normal sinus rate 79, normal axis, slightly prolonged QT intervals (not clinically significant) Patient's ammonia level was elevated however downtrending from prior High-sensitivity troponin is negative, no evidence of myocardial ischemia BNP within normal suggesting no significant heart failure exacerbation CT scan of the brain showed no evidence of ICH COVID/flu/RSV negative Lipase is wnl indicating no pancreatic inflammation. CBC with no leukocytosis, noted mild baseline anemia, noted but baseline thrombocytopenia I have personally reviewed the patient's chest x-ray. Chest x-ray is unremarkable for pulmonary edema, pneumothorax, pneumonia or focal cardiopulmonary abnormality. Coagulation studies show mild coagulopathy Upon reevaluation the patient remained alert and orient x 3. He is neurologically remained intact. Patient was speaking normally. Patient was able to execute executive task such as texting with good grammar and proper spelling. Patient is able to recall his upcoming GI appointment. No clear Precipitating life-threatening etiology was identified in the ED to explain his symptoms. He is not objectively confused at this time. Is appropriate for discharge home with close outpatient follow-up. Strict return precautions were discussed. The patient and/or family, caregivers express understanding. The patient and/or family, caregivers agrees with the plan. Shared decision making: I will have a discussion with the patient and or visitors regarding risk/benefits of further testing or admission. They will be made aware of of the risk/benefits inherent in this decision they will be given the opportunity to voice understanding. Total critical care time today provided was at least 0 minutes. This excludes separately billable procedures. Critical care time (if documented) is secondary to the patient having high probability of clinically significant/life threatening deterioration in the patient's condition which required my urgent intervention. Impression: 1. Transient alteration in awareness 2. Chronic anemia 3. Hypokalemia Dispo: Discharge home This note was generated with Syners[employer] dictation software. It may contain incorrect words, spelling, and punctuation that were not noted in review of the chart prior to signing. Lab Data Labs: Laboratory Results - last 24 hr 10/26/25 10:44 WBC 4.8 RBC 3.10 L Hgb 9.2 L Hct 30.0 L MCV 96.8 H MCH 29.7 MCHC 30.7 L RDW Std Deviation 76.4 H RDW Coeff of Melina 21.6 H Plt Count 104 L MPV 11.0 Immature Gran % (Auto) 0.200 Neut % (Auto) 44.6 L Lymph % (Auto) 25.2 Robertson % (Auto) 18.3 H Eos % (Auto) 9.8 H Baso % (Auto) 1.9 H Absolute Neuts (auto) 2.2 Absolute Lymphs (auto) 1.21 Nucleated RBC % 0 Platelet Estimate SLT DEC Anisocytosis 1+ PT 18.6 H INR 1.5 APTT 36.7 H Sodium 134 Potassium 3.2 L Chloride 96 L Carbon Dioxide 24.3 Anion Gap 14 BUN 11 Creatinine 0.73 Estim Creat Clear Calc 186.78 Est GFR (MDRD) Non-Af 113 BUN/Creatinine Ratio 14.6 Glucose 158 H Calcium 9.2 Total Bilirubin 3.32 H Direct Bilirubin 1.47 H AST 59 H ALT 44 Alkaline Phosphatase 164 H Ammonia 79.9 H Troponin T High Sens 6 D NT pro BNP II 343 Total Protein 7.5 Albumin 2.8 L Globulin 4.7 H Lipase 65 Urine Color Yellow Urine Clarity Clear Urine pH 6.0 Ur Specific [place] 1.015 Urine Protein 15 H Urine Glucose (UA) 1000 H Urine Ketones 5 H Urine Occult Blood 10 H Urine Nitrite Negative Urine Bilirubin Negative Urine Urobilinogen 4 H Ur Leukocyte Esterase Negative Urine RBC 0-5 SEEN Urine WBC 0-5 SEEN Ur Squamous Epith Cells 0 SEEN Urine Bacteria 0 SEEN Urine Mucus 0 SEEN Radiography Diagnostic Testing: Clinical Impression(s) from Imaging Studies Brain CT 10/26/25 10:34 IMPRESSION: No acute intracranial abnormalities. Reading Location: [facility] Chest X-Ray 10/26/25 10:55 IMPRESSION: Mild, predominantly right-sided vascular congestion without focal airspace disease. Reading Location: [facility] Discharge Plan Triage Chief Complaint: Confusion ED Provider: Alex Carpenter Dx/Rx/DC Orders Clinical Impression: Awareness alteration, transient Instructions: ED Confusion Prescriptions: New lactulose 10 gram packet 10 g PO BID Qty: 30 0RF No Action metformin 1,000 mg tablet 1,000 mg PO BID ropinirole 0.5 mg tablet 0.5 mg PO QDAY Jardiance 10 mg tablet 10 mg PO QAM potassium chloride 20 mEq tablet extended release 20 meq PO DAILY atorvastatin 20 mg tablet 20 mg PO DAILY omeprazole 40 mg capsule,delayed release(DR/EC) 40 mg PO DAILY repaglinide 1 mg tablet 1 mg PO BID (DME) CPAP - Continuous Positive Airway Pressure([facility] INFORMATIONAL USE ONLY) Device See Rx Instructions .Route Rx Instructions: As directed nadolol 20 mg Tablet 20 mg PO BID Qty: 60 0RF spironolactone 25 mg Tablet 25 mg PO DAILY Qty: 30 0RF bumetanide 2 mg tablet 2 mg PO BID Qty: 60 0RF Primary Care Provider: Alis Mace Referrals: Alis Mace MD [Primary Care Provider, Family Practice] Friend,DO Contreras [Med Staff - Active Staff, Gastroenterology] Activity Restrictions/Additional Instructions: Thank you for trusting us with your care today! You labs images showed no signs of a life-threatening etiology to explain your symptoms Please take prescribed lactulose daily. Please take Tylenol (2 pills, 650 mg), ibuprofen (2 pills, 400 mg) every 6 hours as needed for pain and fever control. Please return to the emergency department if your symptoms change or worsen. Please follow with your primary care physician and Gastroenterology for further outpatient evaluation and management. Print Language: Qatari Disposition Disposition: Home, Self Care
--- NOTE | 2025-10-26 10:34 | CT_ITS ---
PROCEDURE: BRAIN/HEAD WITHOUT CONTRAST 10/26/2025 REASON FOR EXAM: CONFUSION TECHNIQUE: Procedure Code: CTBR Modality: CT Procedure: BRAIN/HEAD WITHOUT CONTRAST Coronal and Sagittal reconstruction series were provided. One or more dose reduction techniques were used (e.g., Automated exposure control, adjustment of the mA and/or kV according to patient size, use of iterative reconstruction technique. RADIATION DOSE SUMMARY: CTDlvol: 44.99 mGy DLP: 846.73 mGycm COMPARISON: CT head 10/09/2025. FINDINGS: Brain: Normal CSF Spaces: Normal Sinuses/Mastoids: Clear at visualized levels Bones: No acute bony abnormalities. CT/Brain/Head without Contrast IMPRESSION: No acute intracranial abnormalities. Reading Location: [id number]
--- NOTE | 2025-10-26 10:34 | EKG12_ITS ---
Test Reason : Blood Pressure : */* mmHG Vent. Rate : 77 BPM Atrial Rate : 348 BPM P-R Int : * ms QRS Dur : 90 ms QT Int : 266 ms P-R-T Axes : -56 3 124 degrees QTcB Int : 301 ms POSSIBLE NSR SIGNIFICANT BASELINE ARTIFACT Nonspecific T wave abnormality Abnormal ECG Confirmed by ADRIANA CARPIO, SLIM ([id number]), loan expeditor JACQUELYN ANDRADE ([id number]) on 10/28/2025 6:41:51 AM Referred By: Confirmed By: SLIM WRIGHT MD
[2025-10-26 10:54] LABS: Mucous, Urine 0 SEEN /hpf (<or=2+); Squamous Epithelial Cells - UA 0 SEEN /hpf (0-5)
[2025-10-26 10:55] LABS: Color, Urine Yellow (Yellow); Glucose, Dipstick 1000 mg/dl (Normal); Ketone-Dipstick 5 mg/dl (Negative); Leukocyte Esterase-Dipstick Negative /ul (Negative); Nitrite-Dipstick Negative (Negative); Occult Blood-Urine 10 /ul (Negative); Protein-Dipstick 15 mg/dl (Negative); Specific Gravity, Urine 1.015 (1.002-1.030); Urine Bilirubin Dipstick Negative (Negative)
--- NOTE | 2025-10-26 10:55 | RAD_ITS ---
PROCEDURE: CHEST 1 VIEW (PORTABLE) 10/26/2025 REASON FOR EXAM: CONFUSION TECHNIQUE: Frontal view of the chest. COMPARISON: October 09, 2025 FINDINGS: The lungs are adequately aerated bilaterally without pleural effusion, pneumothorax, or focal airspace disease. Mild right hilar vascular congestion with borderline cardiomegaly. Degenerative changes of the shoulders and spine. RAD/Chest 1 View (Portable) IMPRESSION: Mild, predominantly right-sided vascular congestion without focal airspace dise ase. Reading Location: [id number]
[2025-10-26 11:01] LABS: Red Blood Cells-Urine 0-5 SEEN /hpf (0-5)
[2025-10-26 11:03] LABS: Prothrombin Time (Protime)PT. 18.6 SECONDS (11.7-14.9)
[2025-10-26 11:04] LABS: Partial Thromboplast Time 36.7 Seconds (24.1-36.2)
[2025-10-26 11:10] VITALS: BP 131/58; PULSE 76; RESP 21; O2SAT 95
[2025-10-26 11:22] LABS: Pro- Brain NATRIURETIC PEPTIDE 343 pg/mL (<=450); Troponin T High Sensitivity 6 ng/L (<=22)
--- OUTSIDE RECORDS SUMMARY | 2025-10-26 11:23 | XMS RPT_ITS | CCD ---
Author Organization [facility] ion [facility] Care Team Providers Care Cotton Inspector Name Role Phone Lala VILLALOBOS Referring Unavailable aLla VILLALOBOS Attending Unavailable ZACK VIGIL Primary Care Unavailable Zack Vigil MD Primary Care Provider [phone] Lala VILLALOBOS Attending Unavailable Lala VILLALOBOS JNirav Admitting Unavailable ZACK VIGIL Primary Care Unavailable Unavailable Primary Care Provider UnavailPAUL Blanton Attending Unavailab le ZACK VIGIL Primary Care Unavailable Zack Vigil MD Primary Care Provider [phone] Zack Vigil MD Primary Care Provider Zack Vigil MD Primary Care Provider [phone] THOM ONEILL Referring Unavailable ZACK VIGIL Primary Care Unavailable TAD [phone], TAD OCHOA Attending Un available TAD [phone], TAD OCHOA Referring Un available ZACK VIGIL [...] Provider Roger CARPIO, Alis Referring Provider McMorrow INSPECTOR FILTER TIP-C, Yusef Attending Provider McMorrow INSPECTOR FILTER TIP-C, Yusef Referring Provider Dr. Denice Leal DO [...] Physician Alis Duran MD Attending Physician McMorrow INSPECTOR FILTER TIP-C, Yusef Attending Physician Mraj CARPIO, Dr. Kalia Ness Attending Physician Dr. [...] Unavailable Roger, Chalon Primary Care Unavailable McMorrow INSPECTOR FILTER TIP, Yusef Referring Unavailable McMorrow INSPECTOR FILTER TIP, Yusef Attending Unavailable Roger, Chalon Primary Care [...] Primary Care Unavailable Kenneth, Timoteo Consulting Unavailable Eknneth, Timoteo Admitting Unavailable PraLeón ray Attending Unavailable [...] sources) Spironolactone; Translations: [SPIRONOLACTONE] Drug Allergy 10-14-2023 [facility] Primary Care Physicians Medications Current Medications [...] twice daily Cpap - Continuous Positive Airway Pressure([facility] Informational Use Only) device (7 sources) Start: 07-23-2025 Cpap - Continu ous Positive Airway Pressure([facility] Informational Use Only) device Active 0 .Route July 23, 2025 12:00am saúl As directed Start: 07-23-2025 Cpap - Continu ous Positive Airway Pressure([facility] Informational Use Only) device Active 0 [...] times a day Stool softener Can get ffkk-jzi-qohlvga for 7 days . 14 capsule 0 [...] without long-term current use of insulin (CMS/HCC) ([facility]) Take 1 tablet by mouth 1 time [...] 2 tablets by mouth if needed. Active [id number] 200 actuat albuterol 0.09 mg/actuat metered dose [...] Summary (1)on 025 PT D/C Summary (1) [facility] [address] [place] [address]. [address] [place] [address] / REHABILITATION SERVICES DISCHARGE SUMMARY MR#: [id number] Acct: [id number] Name: LEON RIDER Rep #: [id number] : 1980 45 From: Carlos Bowden DPT, [...] please feel free to call me at [phone]. Thank you for the referral of this patient. Sincerely, Carlos Bowden, DPT, OCS, CSCS Balance/Gait/Functional tests Balance/Special Test Scores Functional Gait Assessment Score: 27 % Disability: 10.0000 Lower Extremity Functional Score: 74 TUG Test Time Seconds: 8 Tug Test: <20 sec.=mostly independent 30 Second Chair Rise Test Seconds: 8 Improvement % Improvement: 90 09/16/25 5518 CC: Dr. Alis Duran MD; Dr. Myriam Aguilar DO EBG Signed Normal [facility] Cardiology Visit Reporton Cardiology Visit Report [facility] [address] [place] [address] OFFICE VISIT Date of Service: 09/09/25 MR#: [id number] Acct: [id number] Name: LEON RIDER Rep #: [id number] : 1980 Provider: Dr. 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 Required: No Accompanied by: Self Is patient [...] - Continuous Positive Airway 07/23/25 08/19/25 History Pressure([facility] INFORMATIONAL USE ONLY) bumetanide 2 mg [...] esophagogastroduodenosc opy (EGD) H/O umbilical hernia repair [place] teeth extracted Family History Other Diabetes Heart disease Social History household members: spouse housing: house Smoking Status: Never smoker alcohol intake: never substance use type: does not use ROS Const Const: Positive for fatigue (dx: anemia); Negative for weakness Eyes Eyes: Negative for change in vision ENT ENT: Positive for dizziness (right ear drum rup (more content not included)... Normal [facility] Absolute lymphocyte countOrd ered By: Vincenzo Chavarria on 08-21-2025 Lymphocytes Auto (Unsp spec) [#/Vol] 1.11 10*3/uL 0.83-4.51 [facility] Absolute neutrophil countOrd ered By: Vincenzo Chavarria on 08-21-2025 Neutrophils (Bld) [#/Vol] 3.6 10*3/uL 2.0-7.7 [facility] Anion gap in Serum or Plasma Ordered By: Vincenzo Chavarria on 08-21-2025 Anion gap [Moles/Vol] 20 mmol/L High 5-[address] [facility] Automated lymphocyte count a s percentage of total leukocytesOrdered By: Vincenzo Chavarria on 08-21-2025 Lymphocytes/100 WBC Auto (Unsp spec) 17.7 % Low 19-41 [facility] BUN/creatinine ratioOrdered By: Vincenzo Chavarria on 08-21-2025 Urea nitrogen/Creatinine [Mass ratio] 18.2 mg/mg 09-02 [facility] Basic Metabolic Profile (BMP )on 08-21-2025 BUN/CRE 18.2 RATIO Normal 09-02 [facility] Comment on above: Performed By: #### L 501.080 #### [facility] [address] [place], [place], [address] Calcium [Mass/Vol] 9.0 mg/dL Normal 7.6-11.0 [facility] Comment on above: Performed By: #### L 501.080 #### [facility] [address] [place], [address] Chloride [Moles/Vol] 96 mmol/L Low 98-108 [facility] Comment on above: Performed By: #### L 501.080 #### [facility] [address] [place], [address] CO2 [Moles/Vol] 21.1 mmol/L Normal 21.0-32.0 [facility] Comment on above: Performed By: #### L 501.080 #### [facility] [address] [place], [address] Creatinine [Mass/Vol] 0.82 mg/dL Normal 0.70-1.[address] [facility] Comment on above: Performed By: #### L 501.080 #### [facility] [address] [place], [address] ECRCL 160.45 ml/min Normal 50-250 [facility] Comment on above: Performed By: #### L 501.080 #### [facility] [address] [place], [address] GAP 20 High 5-15 [facility] Comment on above: Performed By: #### L 501.080 #### [facility] [address] [place], [address] GFR/1.73 sq M.predicted among non-blacks MDRD (S/P/Bld) [Vol rate/Area] 109 mL/min/{1.73_m2} Normal >60 [facility] Comment on above: Result Comment: mL/m in/1.73m2 CKD-EPI Creatinine Equation (2020) Performed By: #### L 501.080 #### [facility] [address] [place], [address] Glucose [Mass/Vol] 83 mg/dL Normal 70-99 [facility] Comment on above: Performed By: #### L 501.080 #### [facility] [address] [place], [address] Potassium [Moles/Vol] 3.4 mmol/L Normal 3.3-5.[address] [facility] Comment on above: Performed By: #### L 501.080 #### [facility] [address] [place], [address] Sodium [Moles/Vol] 136 mmol/L Normal 133-145 [facility] Comment on above: Performed By: #### L 501.080 #### [facility] [address] [place], [address] Urea nitrogen [Mass/Vol] 15 mg/dL Normal 4-19 [facility] Comment on above: Performed By: #### L 501.080 #### [facility] [address] [place], [place], [address] Basophil percentageOrdered B y: Vincenzo Chavarria on 08-21-2025 Basophils/100 WBC (Bld) 1.6 % High 0-1 [facility] Bilirubin Test strip Ql (U)O rdered By: Vincenzo Chavarria on 08-21-2025 Bilirubin Ql (U) Negative Negative [facility] Blood manual differential co mment interpretation (narrative result)Ordered By: Vincenzo Chavarria on 08-21-2025 Manual differential comment Hans (Bld) [Interp] SCANNED [facility] Blood polychromasia detectio n by light microscopyOrdered By: Vincenzo Chavarria on 08-21-2025 Polychromasia LM Ql (Bld) 1+ [facility] Brain/Head without Contrasto n 08-21-2025 Brain/Head without Contrast [facility] Imaging Services [address] [place], [place] [id number] Brain/Head without Contrast MR#: [id number] Acct: [id number] Name: LEON RIDER Rep #: [id number] : 1980 M 45 From: Elieser Morrison MD PCP: Dr. Alis Duran MD Status: REG ER Study: Brain/Head without Contrast Date of Exam: 07/08 Exam# [id number] Ordering Dr: Vincenzo Chavarria MD EXAM: CT [...] evaluation with MRI is recommended. Reading Location: [facility] CC: Dr. Vincenzo Chavarria MD; Dr. Alis Duran MD Hotel Controller: Signed Normal [facility] CBC W/Diff, Automatedon POLYCHROMASIA 1+ Normal [facility] Comment on above: Performed By: #### L 501.080 #### [facility] [address] [place], [address] Anisocytosis Ql (Bld) 2+ Normal [facility] Comment on above: Performed By: #### L 501.080 #### [facility] [address] [place], [address] PLT EST SLT DEC Normal ADEQ [facility] Comment on above: Performed By: #### L 501.080 #### [facility] [address] [place], [address] SMEAR COMMENT SCANNED Normal [facility] Comment on above: Performed By: #### L 501.080 #### [facility] [address] [place], [place], [address] MPV TNP Normal 6.2-12.0 [facility] Comment on above: Performed By: #### L 501.080 #### [facility] [address] [place], [place], [address] PLT TNP Normal 150-450 [facility] Comment on above: Result Comment: Arnie khan note: For this sample, a platelet estimate is provided rather than a platelet count due to platelet clumping. Other parameters associated with this sample are not affected by platelet clumping. If a more accurate platelet count is required, a redraw of the patient will be necessary. Performed By: #### L 501.080 #### [facility] [address] [place], [place], [address] Carbon dioxide, total [Moles /volume] in Central venous bloodOrdered By: Vincenzo Chavarria on 08-21-2025 CO2 [Moles/Vol] 21.1 mmol/L 21.0-32.0 [facility] Chest 1 View (Portable)on Chest 1 View (Portable) [facility] Imaging Services [address] [place], [place] [address] Chest 1 View (Portable) MR#: [id number] Acct: [id number] Name: LEON RIDER Rep #: [id number] : 1980 M 45 From: Elieser Morrison MD PCP: Dr. Alis Duran MD Status: REG ER Study: Chest 1 View (Portable) Date of Exam: 08/21/25 Exam# [id number] Ordering Dr: Vincenzo Chavarria MD EXAM: XR Chest, 1 View CLINICAL INDICATION: CONGESTIVE HEART FAILURE TECHNIQUE: Frontal view of the chest. COMPARISON: No relevant prior studies available. FINDINGS: LUNGS AND PLEURAL SPACES: See below. HEART: Cardiomegaly with mild congestion. MEDIASTINUM: Unremarkable. Normal mediastinal contour. BONES/JOINTS: Unremarkable. No acute fracture. RAD/Chest 1 View (Portable) IMPRESSION: Cardiomegaly with mild congestion. Reading Location: [facility] CC: Dr. Vincenzo Chavarria MD; Dr. Alis Druan MD Hotel Controller: Signed Normal [facility] Chloride assayOrdered By: Dez Chavarria on 08-21-2025 Chloride [Moles/Vol] 96 mmol/L Low 98-108 [facility] Emergency Department Summary on 08-21-2025 Emergency Department Summary [facility] Medical Records Department [address] [place] [address] Emergency Department Summary 08/21/25 MR#: [id number] Acct: [id number] Name: LEON RIDER Rep #: [id number] : 1980 45 From: Vincenzo Chavarria MD PCP: Dr. Ails Duran MD Status:REG ER Location: ED HPI [...] feel slightly off balance when he walks. [facility] Medical History Kidney stones Cirrhosis Non-smoker [...] - Continuous Positive Airway 07/23/25 Unknown History Pressure([facility] INFORMATIONAL USE ONLY) bumetanide 2 mg [...] disease Surgical History H/O umbilical hernia repair [place] teeth extracted Social History household members: spouse [...] 08/21/25 19: (more content not included)... Normal [facility] Eosinophil percentageOrdered By: Vincenzo Chavarria on 08-21-2025 Eosinophils/100 WBC (Bld) 8.8 % High 0-5 [facility] Erythrocyte distribution wid th ratioOrdered By: Vincenzo Chavarria on 08-21-2025 Erythrocyte distribution width (RBC) [Ratio] 23.9 % High 11.6-14.6 [facility] Erythrocyte distribution wid th standard deviationOrdered By: Vincenzo Chavarria on 08-21-2025 Erythrocyte distribution width (RBC) [Ratio] 73.9 fl High 35.1-43.9 [facility] Glomerular filtration rate ( GFR) estimation/1.73 sq m using serum, plasma, or whole bOrdered By: Vincenzo Chavarria on 08-21-2025 GFR/1.73 sq M.predicted among non-blacks MDRD (S/P/Bld) [Vol rate/Area] 109 mL/min/{1.73_m2} >60 [facility] Comment on above: mL/min/1.73m2 CKD-EP I Creatinine Equation (2020) Hematocrit Auto (Bld) [Volum e fraction]Ordered By: Vincenzo Chavarria on 08-21-2025 Hematocrit (Bld) [Volume fraction] 32.6 % Low 40-54 [facility] Hemoglobin measurementOrdere d By: Vincenzo Chavarria on 08-21-2025 Hemoglobin (Bld) [Mass/Vol] 10.4 g/dL Low 13.0-16.5 [facility] Immature granulocytes/100 WB C Auto (Bld)Ordered By: Vincenzo Chavarria on 08-21-2025 Immature granulocytes/100 WBC (Bld) 0.300 % 0.0-0.9 [facility] Comment on above: IG% - Immature Granu locytes (promyelocytes, myelocytes and metamyelocytes) > 1% indicates that a LEFT SHIFT is Present. Ketones Test strip Ql (U)Ord ered By: Vincenzo Chavarria on 08-21-2025 Ketones Ql (U) 5 mg/dl High Negative [facility] - Hematology and Cell countsOrdered By: Vincenzo Chavarria on 08-21-2025 Anisocytosis Ql (Bld) 2+ [facility] MCV (mean corpuscular volume ) determinationOrdered By: Vincenzo Chavarria on 08-21-2025 MCV (RBC) [Entitic vol] 84.9 fL 80-94 [facility] Mean corpuscular hemoglobin (MCH) determinationOrdered By: Vincenzo Chavarria on 08-21-2025 MCH (RBC) [Entitic mass] 27.1 pg 27.0-32.0 [facility] Mean corpuscular hemoglobin concentration (MCHC) determinationOrdered By: Vincenzo Chavarria on 08-21-2025 MCHC (RBC) [Mass/Vol] 31.9 g/dL Low 32-[address] [facility] Mean platelet volume determi nationOrdered By: Vincenzo Chavarria on 08-21-2025 Mean platelet volume determination TNP [facility] Comment on above: Test not performed Microscopic analysis of urin e for red blood cells (RBC)Ordered By: Vincenzo Chavarria on 08-21-2025 Microscopic analysis of urine for red blood cells (RBC) 0-5 SEEN /hpf 0-5 [facility] Monocyte percentageOrdered B y: Vincenzo Chavarria on 08-21-2025 Monocytes/100 WBC (Bld) 14.2 % High 0-10 [facility] Mucus LM Ql (Urine sed)Order ed By: Vincenzo Chavarria on 08-21-2025 Mucus Ql (Urine sed) 0 SEEN /hpf [facility] Natriuretic peptide.B prohor reji N-Terminal [Mass/volume] in Serum or PlasmaOrdered By: Vincenzo Chavarria on 08-21-2025 Natriuretic peptide.B prohormone N-Terminal [Mass/Vol] 188 pg/mL <450 [facility] Comment on above: Heart Failure Unlike ly: < 300 pg/mLHeart Failure Likely< 50 Years: > 450 pg/mL50-75 Years: > 900 pg/mL>75 Years: > 1800 pg/mL Neutrophil percentageOrdered By: Vincenzo Chavarria on 08-21-2025 Neutrophils/100 WBC (Bld) 57.4 % 47-70 [facility] Nitrite Test strip Ql (U)Ord ered By: Vincenzo Chavarria on 08-21-2025 Nitrite Ql (U) Negative Negative [facility] Nucleated red blood cell per centageOrdered By: Vincenzo Chavarria on 08-21-2025 Nucleated RBC/100 WBC (Bld) [Ratio] 0 % 0-5 [facility] Platelet countOrdered By: Dez Chavarria on 08-21-2025 Platelet count TNP [facility] Comment on above: Test not performedPl ease [...] Platelets LM Ql (Bld) SLT DEC ADEQ [facility] Potassium measurement (mass/ volume)Ordered By: Vincenzo Chavarria on 08-21-2025 Potassium (Unsp spec) [Mass/Vol] 3.4 mmol/L 3.3-5.1 [facility] Pro- Brain NATRIURETIC PEPTI Chaparro 08-21-2025 Natriuretic peptide B (Bld) [Mass/Vol] 188 pg/mL Normal <=450 [facility] Comment on above: Result Comment: Hear t Failure Unlikely: < 300 pg/mL Heart Failure Likely < 50 Years: > 450 pg/mL 50-75 Years: > 900 pg/mL >75 Years: > 1800 pg/mL Performed By: #### L 501.080 #### [facility] [address] [place], [address] Protein Test strip Ql (U)Ord ered By: Vincenzo Chavarria on 08-21-2025 Protein Ql (U) 15 mg/dl High Negative [facility] RBC Auto (Bld) [#/Vol]Ordere d By: Vincenzo Chavarria on 08-21-2025 RBC (Bld) [#/Vol] 3.84 10*6/uL Low 4.6-6.2 [facility] Serum creatinine measurement (mass/volume)Ordered By: Vincenzo Chavarria on 08-21-2025 Creatinine [Mass/Vol] 0.82 mg/dL 0.70-1.[address] [facility] Serum glucose measurement (m ass/volume)Ordered By: Vincenzo Chavarria on 08-21-2025 Glucose [Mass/Vol] 83 mg/dL 70-99 [facility] Serum or plasma calcium wilfred urement (mass/volume)Ordered By: Vincenzo Chavarria on 08-21-2025 Calcium [Mass/Vol] 9.0 mg/dL 7.6-11.0 [facility] Serum or plasma urea nitroge n measurement (mass/volume)Ordered By: Vincenzo Chavarria on 08-21-2025 Urea nitrogen [Mass/Vol] 15 mg/dL 4-19 [facility] Sodium levelOrdered By: Vincenzo Chavarria on 08-21-2025 Sodium [Moles/Vol] 136 mmol/L 133-145 [facility] Squamous epithelial cells de tection in urine sediment by light microscopyOrdered By: Vincenzo Chavarria on 08-21-2025 Epithelial cells.squamous LM Ql (Urine sed) 0-5 SEEN /hpf 0-5 [facility] Urinalysis, Completeon 08-21 EPI,SQUAMOUS 0-5 SEEN Normal 0-5 [facility] Comment on above: Order Comment: CLEAN CATCH Performed By: #### L 501.080 #### [facility] [address] [place], [address] RBC 0-5 SEEN Normal 0-5 [facility] Comment on above: Order Comment: CLEAN CATCH Performed By: #### L 501.080 #### [facility] [address] [place], [address] WBC 0-5 SEEN Normal 0-5 [facility] Comment on above: Order Comment: CLEAN CATCH Performed By: #### L 501.080 #### [facility] [address] [place], [address] BACTERIA 0 SEEN Normal None Seen [facility] Comment on above: Order Comment: CLEAN CATCH Performed By: #### L 501.080 #### [facility] [address] [place], [address] Mucus Ql (Urine sed) 0 SEEN Normal [facility] Comment on above: Order Comment: CLEAN CATCH Performed By: #### L 501.080 #### [facility] [address] [place], [address] Urine clarityOrdered By: Anastacia Chavarira on 08-21-2025 Clarity (U) Cloudy Clear [facility] Urine color determinationOrd ered By: Vincenzo Chavarria on 08-21-2025 Color (U) Yellow Yellow [facility] Urine glucose detectionOrder ed By: Vincenzo Chavarria on 08-21-2025 Glucose Ql (U) Normal mg/dl Normal [facility] Urine leukocyte esterase det ection by dipstickOrdered By: Vincenzo Chavarria on 08-21-2025 Leukocyte esterase Test strip Ql (U) Negative Negative [facility] Urine pHOrdered By: Vincenzo ace on 08-21-2025 pH (U) 6.0 [pH] 5.0 - 8.0 [facility] Urine sediment bacteria coun t by microscopy (number/high power field)Ordered By: Vincenzo Chavarria on 08-21-2025 Bacteria LM.HPF (Urine sed) [#/Area] 0 /[HPF] None Seen [facility] Urine specific gravity measu rementOrdered By: Vincenzo Chavarria on 08-21-2025 Specific gravity (U) [Rel density] 1.020 1.002-1.03 0 [facility] Urine urobilinogen measureme ntOrdered By: Vincenzo Chavarria on 08-21-2025 Urobilinogen Ql (U) 1 mg/dl High Normal [facility] White blood cell (WBC) count Ordered By: Vincenzo Chavarria on 08-21-2025 WBC (Bld) [#/Vol] 6.3 10*3/uL 4.4-11.0 [facility] White blood cell countOrdere d By: Vincenzo Chavarria on 08-21-2025 White blood cell count 0-5 SEEN /hpf 0-5 [facility] Oncology Visit Reporton Oncology Visit Report [facility] [address] [place] [address]. [place] [address] OFFICE VISIT Date of Service: 08/19/25 1447 MR#: [id number] Acct: [id number] Name: LEON RIDER Rep #: [id number] : 1980 From: León Mccray MD Age/Sex: 45/M [place] [facility] [place]: Signed HPI Subjective Date of Service 08/19/25 Chief Complaint F/u for anemia. 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 He has had esophageal varices which has been banded in [place]. Denies recent bleeding. Had blood work done and comes for follow up. Feels well. [facility] Medical History Hx of cirrhosis Anemia Chronic idiopathic thrombocytopenia HTN (hypertension) Diabetes Acid reflux Rectal bleeding Hemorrhoids Surgical History H/O umbilical hernia repair [place] teeth extracted Family History Other Diabetes Heart [...] - Continuous Positive Airway 07/23/25 08/19/25 History Pressure([facility] INFORMATIONAL USE ONLY) bumetanide 2 mg [...] applicable) CC: (more content not included)... Normal [facility] Haptoglobinon 08-13-2025 HAPTOGLOBIN 38 mg/dL Normal 23-355 [facility] Comment on above: Result Comment: Perf ormed at: - Lab[address] [id number] [employer] C[employer] Hand: Tres Cm PhD, Phone: [phone] Performed By: #### L 500.5554, L100.0100 #### [facility] [address] [place], [address] Inital Evaluation (1) - PTon 08-13-2025 Inital Evaluation (1) - PT [facility]. [address] [place] [address] / REHABILITATION SERVICES INITIAL EVALUATION MR#: [id number] Acct: [id number] Name: LEON RIDER Rep #: [id number] : 1980 45 From: Carlos Bowden DPT, OCS, CSCS Referring Dr.: Dr. Myriam Aguilar DO Status: REG RCR Insurance: [employer] SELF PAY INSURANCE Patient's Visit Information Visit [...] Getting around poorly limits him. 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 For Medicare only, by signing this I certify the plan of care. Please let me know if there are questions or concerns regarding this plan of care. Physician Signature: Date: 08/13/25 1312 CC: Dr. Alis Duran MD; Dr. Myriam Aguilar DO EBG Signed Normal [facility] Stool Occult Blood iFOBon STOB Normal Reference Ran ge = Negative Immunochemical Fecal Occult Blood (iFOBT) method. Hemoccult Stl Ql IA Limitation: Menstrual bleeding, constipation bleeding, bleeding hemorrhoids, and urinary bleeding conditions may interfere with test. Occult Blood A Positive A OCCULT BLOOD POSITIVE Normal [facility] Comment on above: Performed By: #### L 501.080 #### [facility] [place], [address] Stool gastrointestinal hemog lobin detection by immunologic methodOrdered By: León Mccray on 08-13-2025 Lower GI hemoglobin IA Ql (Stl) Positive Abnormal [facility] Absolute lymphocyte countOrd ered By: León Mccray on 08-12-2025 Lymphocytes Auto (Unsp spec) [#/Vol] 1.04 10*3/uL 0.83-4.51 [facility] Absolute neutrophil countOrd ered By: León Mccray on 08-12-2025 Neutrophils (Bld) [#/Vol] 2.5 10*3/uL 2.0-7.7 [facility] Activated partial thrombopla stin time (aPTT) in platelet poor plasma by coagulation aOrdered By: León Mccray on 08-12-2025 aPTT Coag (PPP) [Time] 35.9 s 24.1-36.2 [facility] Anion gap in Serum or Plasma Ordered By: León Mccray on 08-12-2025 Anion gap [Moles/Vol] 16 mmol/L High 5-[address] [facility] Automated lymphocyte count a s percentage of total leukocytesOrdered By: León Mccray on 08-12-2025 Lymphocytes/100 WBC Auto (Unsp spec) 20.1 % - [facility] BUN/creatinine ratioOrdered By: [facility]ón [facility]-2025 Urea nitrogen/Creatinine [Mass ratio] 14.6 mg/mg 10-20 [facility] Basophil percentageOrdered B y: León Mccray on 08-12-2025 Basophils/100 WBC (Bld) 2.1 % High 0-1 [facility] Bilirubin Test strip Ql (U)O rdered By: León Mccray on 08-12-2025 Bilirubin Ql (U) Negative Negative [facility] Bilirubin, totalOrdered By: León Mccray on 08-12-2025 Bilirubin [Mass/Vol] 2.60 mg/dL High 0.00-1.30 [facility] Blood manual differential co mment interpretation (narrative result)Ordered By: León Mccray on 08-12-2025 Manual differential comment Hans (Bld) [Interp] SCANNED [facility] CBC W/Diff, Automatedon 07-16 Anisocytosis Ql (Bld) 2+ Normal [facility] Comment on above: Performed By: #### L 506.0200, L503.0106, L100.9950, L503.6030, L503.6550 #### [facility] [address] [place], [place], [id number] SMEAR COMMENT SCANNED Normal [facility] Comment on above: Performed By: #### L 506.0200, L503.0106, L100.9950, L503.6030, L503.6550 #### [facility] [address] [place], [address] CRPon 08-12-2025 C-REACTIVE PROT 33.40 mg/L High 0.0-3.0 [facility] Comment on above: Performed By: #### L 506.0200, L503.0106, L100.9950, L503.6030, L503.6550 #### [facility] [address], [address] Carbon dioxide, total [Moles /volume] in Central venous bloodOrdered By: León Mccray on 08-12-2025 CO2 [Moles/Vol] 22.0 mmol/L 21.0-32.0 [facility] Chloride assayOrdered By: Radha Mccray on 08-12-2025 Chloride [Moles/Vol] 96 mmol/L Low 98-108 [facility] Comprehensive Metabolic Prof ilon 08-12-2025 Albumin [Mass/Vol] 2.6 g/dL Low 3.5-5.0 [facility] Comment on above: Performed By: #### L 506.0200, L503.0106, L100.9950, L503.6030, L503.6550 #### [facility] [address] [place], [address] Albumin/Globulin [Mass ratio] 0.5 {ratio} Low 0.9-2.4 [facility] Comment on above: Performed By: #### L 506.0200, L503.0106, L100.9950, L503.6030, L503.6550 #### [facility] [address] [place], [address] ALK PHOS 115 U/L Normal 40-129 [facility] Comment on above: Performed By: #### L 506.0200, L503.0106, L100.9950, L503.6030, L503.6550 #### [facility] [address] [place], [address] ALT [Catalytic activity/Vol] 28 U/L Normal <=46 [facility] Comment on above: Performed By: #### L 506.0200, L503.0106, L100.9950, L503.6030, L503.6550 #### [facility] [address] [place], [address] AST [Catalytic activity/Vol] 65 U/L High <=37 [facility] Comment on above: Result Comment: Hemo lysis present, Results??could be affected. ?? Hemolysis present, Results??could be affected. ?? Hemolysis present, Results??could be affected. ?? Performed By: #### L 506.0200, L503.0106, L100.9950, L503.6030, L503.6550 #### [facility] [address] [place], [address] Bilirubin [Mass/Vol] 2.60 mg/dL High 0.00-1.30 [facility] Comment on above: Performed By: #### L 506.0200, L503.0106, L100.9950, L503.6030, L503.6550 #### [facility] [address] [place], [address] BUN/CRE 14.6 RATIO Normal 10-20 [facility] Comment on above: Performed By: #### L 506.0200, L503.0106, L100.9950, L503.6030, L503.6550 #### [facility] [address] [place], [address] Calcium [Mass/Vol] 8.0 mg/dL Normal 7.6-11.0 [facility] Comment on above: Performed By: #### L 506.0200, L503.0106, L100.9950, L503.6030, L503.6550 #### [facility] [address] [place], [address] Chloride [Moles/Vol] 96 mmol/L Low 98-108 [facility] Comment on above: Performed By: #### L 506.0200, L503.0106, L100.9950, L503.6030, L503.6550 #### [facility] [address] [place], [address] CO2 [Moles/Vol] 22.0 mmol/L Normal 21.0-32.0 [facility] Comment on above: Performed By: #### L 506.0200, L503.0106, L100.9950, L503.6030, L503.6550 #### [facility] [address] [place], [address] Creatinine [Mass/Vol] 0.72 mg/dL Normal 0.70-1.[address] [facility] Comment on above: Performed By: #### L 506.0200, L503.0106, L100.9950, L503.6030, L503.6550 #### [facility] [address] [place], [address] GAP 16 High 5-15 [facility] Comment on above: Performed By: #### L 506.0200, L503.0106, L100.9950, L503.6030, L503.6550 #### [facility] [address] [place], [address] GFR/1.73 sq M.predicted among non-blacks MDRD (S/P/Bld) [Vol rate/Area] 113 mL/min/{1.73_m2} Normal >60 [facility] Comment on above: Result Comment: mL/m in/1.73m2 CKD-EPI Creatinine Equation (2020) Performed By: #### L 506.0200, L503.0106, L100.9950, L503.6030, L503.6550 #### [facility] [address] [place], [address] Globulin (S) [Mass/Vol] 5.7 g/dL High 2.2-4.2 [facility] Comment on above: Performed By: #### L 506.0200, L503.0106, L100.9950, L503.6030, L503.6550 #### [facility] [address] [place], [address] Glucose [Mass/Vol] 133 mg/dL High 70-99 [facility] Comment on above: Performed By: #### L 506.0200, L503.0106, L100.9950, L503.6030, L503.6550 #### [facility] [address] [place], [address] Potassium [Moles/Vol] 3.5 mmol/L Normal 3.3-5.[address] [facility] Comment on above: Result Comment: Hemo lysis present, Results??could be affected. ?? Hemolysis present, Results??could be affected. ?? Performed By: #### L 506.0200, L503.0106, L100.9950, L503.6030, L503.6550 #### [facility] [address] [place], [address] Sodium [Moles/Vol] 135 mmol/L Normal 133-145 [facility] Comment on above: Performed By: #### L 506.0200, L503.0106, L100.9950, L503.6030, L503.6550 #### [facility] [address] [place], [address] T PROT 8.3 g/dL Normal 5.9-8.4 [facility] Comment on above: Performed By: #### L 506.0200, L503.0106, L100.9950, L503.6030, L503.6550 #### [facility] [address] [place], [place], [address] Urea nitrogen [Mass/Vol] 11 mg/dL Normal 4-19 [facility] Comment on above: Performed By: #### L 506.0200, L503.0106, L100.9950, L503.6030, L503.6550 #### [facility] [address] [place], [place], [address] Eosinophil percentageOrdered By: León Mccray on 08-12-2025 Eosinophils/100 WBC (Bld) 13.1 % High 0-5 [facility] Erythrocyte Sed Rateon 08-12 SED RATE 76 mm/hr High 0-20 [facility] Comment on above: Performed By: #### L 506.0200, L503.0106, L100.9950, L503.6030, L503.6550 #### [facility] [address] [place], [address] Erythrocyte distribution wid th ratioOrdered By: León Mccray on 08-12-2025 Erythrocyte distribution width (RBC) [Ratio] 24.8 % High 11.6-14.6 [facility] Erythrocyte distribution wid th standard deviationOrdered By: León Shazia on 08-12-2025 Erythrocyte distribution width (RBC) [Ratio] 77.5 fl High 35.1-43.9 [facility] Erythrocyte sedimentation ra teOrdered By: León Mccray on 08-12-2025 ESR (Bld) [Velocity] 76 mm/h High 0-20 [facility] Ferritinon 08-12-2025 Ferritin [Mass/Vol] 60 ng/mL Normal 37-417 [facility] Comment on above: Performed By: #### L 506.0200, L503.0106, L100.9950, L503.6030, L503.6550 #### [facility] [address] [place], [place], [address] Glomerular filtration rate ( GFR) estimation/1.73 sq m using serum, plasma, or whole bOrdered By: León Mccray on 08-12-2025 GFR/1.73 sq M.predicted among non-blacks MDRD (S/P/Bld) [Vol rate/Area] 113 mL/min/{1.73_m2} >60 [facility] Comment on above: mL/min/1.73m2 CKD-EP I Creatinine Equation (2020) Hematocrit Auto (Bld) [Volum e fraction]Ordered By: León Mccray on 08-12-2025 Hematocrit (Bld) [Volume fraction] 32.2 % Low 40-54 [facility] Hemoglobin measurementOrdere d By: León Mccray on 08-12-2025 Hemoglobin (Bld) [Mass/Vol] 10.0 g/dL Low 13.0-16.5 [facility] Immature granulocytes/100 WB C Auto (Bld)Ordered By: León Mccray on 08-12-2025 Immature granulocytes/100 WBC (Bld) 0.400 % 0.0-0.9 [facility] Comment on above: IG% - Immature Granu locytes (promyelocytes, myelocytes and metamyelocytes) > 1% indicates that a LEFT SHIFT is Present. International normalized rat io (INR) calculationOrdered By: León Mccray on 08-12-2025 INR Coag (Bld) [Relative time] 1.6 {INR} [facility] Iron measurement (mass/mass) Ordered By: León Mccray on 08-12-2025 Iron (Unsp spec) [Mass/Mass] 40 ug/dL Low 65-175 [facility] Iron+Iron Binding Capacityon 08-12-2025 Iron [Mass/Vol] 40 ug/dL Low 65-175 [facility] Comment on above: Performed By: #### L 506.0200, L503.0106, L100.9950, L503.6030, L503.6550 #### [facility] [address] [place], [place], [id number] (855) IRON SATURATION 12.3 Normal 9-55 [facility] Comment on above: Performed By: #### L 506.0200, L503.0106, L100.9950, L503.6030, L503.6550 #### [facility] [address] [place], [address] TIBC 327 ug/dL Normal 250-450 [facility] Comment on above: Performed By: #### L 506.0200, L503.0106, L100.9950, L503.6030, L503.6550 #### [facility] [address] [place], [address] UIBC 287 ug/dL Normal 228-428 [facility] Comment on above: Result Comment: Hemo lysis present, Results??could be affected. ?? Hemolysis present, Results??could be affected. ?? Hemolysis present, Results??could be affected. ?? Performed By: #### L 506.0200, L503.0106, L100.9950, L503.6030, L503.6550 #### [facility] [address] [place], [address] Ketones Test strip Ql (U)Ord ered By: León Mccray on 08-12-2025 Ketones Ql (U) Negative Negative [facility] LDHon 08-12-2025 LDH 413 U/L High 87-241 [facility] Comment on above: Order Comment: 1 Result Comment: Hemo lysis present, Results??could be affected. ?? Hemolysis present, Results??could be affected. ?? Hemolysis present, Results??could be affected. ?? Performed By: #### L 506.0200, L503.0106, L100.9950, L503.6030, L503.6550 #### [facility] [address] [place], [address] Laboratory - Chemistry and C hemistry - challengeOrdered By: León Mccray on 08-12-2025 AST [Catalytic activity/Vol] 65 U/L High <38 [facility] Comment on above: Hemolysis present, R esults could be affected. Hemolysis present, Results could be affected. Hemolysis present, Results could be affected. Laboratory - Hematology and Cell countsOrdered By: León Mccray on 08-12-2025 Anisocytosis Ql (Bld) 2+ [facility] Lactate dehydrogenase (LDH) measurementOrdered By: León Mccray on 08-12-2025 LDH [Catalytic activity/Vol] 413 U/L High 87-241 [facility] Comment on above: Hemolysis present, R esults could be affected. Hemolysis present, Results could be affected. Hemolysis present, Results could be affected. MCV (mean corpuscular volume ) determinationOrdered By: León Mccray on 08-12-2025 MCV (RBC) [Entitic vol] 86.3 fL 80-94 [facility] Magnesiumon 08-12-2025 Magnesium [Mass/Vol] 1.7 mg/dL Normal 1.5-2.2 [facility] Comment on above: Performed By: #### L 506.0200, L503.0106, L100.9950, L503.6030, L503.6550 #### [facility] [address] [place], [address] Magnesium measurement (mass/ volume)Ordered By: León Mccray on 08-12-2025 Magnesium (Unsp spec) [Mass/Vol] 1.7 mg/dL 1.5-2.2 [facility] Mean corpuscular hemoglobin (MCH) determinationOrdered By: Lenó Mccray on 08-12-2025 MCH (RBC) [Entitic mass] 26.8 pg Low 27.0-32.0 [facility] Mean corpuscular hemoglobin concentration (MCHC) determinationOrdered By: León Mccray on 08-12-2025 MCHC (RBC) [Mass/Vol] 31.1 g/dL Low 32-[address] [facility] Mean platelet volume determi nationOrdered By: León Mccray on 08-12-2025 Platelet mean volume (Bld) [Entitic vol] 10.4 fL 6.2-12.0 [facility] Microscopic analysis of urin e for red blood cells (RBC)Ordered By: León Mccray on 08-12-2025 Microscopic analysis of urine for red blood cells (RBC) 5-10 SEEN /hpf 0-5 [facility] Monocyte percentageOrdered B y: León Mccray on 08-12-2025 Monocytes/100 WBC (Bld) 16.4 % High 0-10 [facility] Mucus LM Ql (Urine sed)Order ed By: León Mccray on 08-12-2025 Mucus Ql (Urine sed) 0 SEEN /hpf [facility] Neutrophil percentageOrdered By: León Mccray on 08-12-2025 Neutrophils/100 WBC (Bld) 47.9 % 47-70 [facility] Nitrite Test strip Ql (U)Ord ered By: León Mccray on 08-12-2025 Nitrite Ql (U) Negative Negative [facility] No Panel InformationOrdered By: León Mccray on 08-12-2025 Unsaturated Iron Binding Capacity 287 ug/dL 228-428 [facility] Comment on above: Hemolysis present, R esults could be affected. Hemolysis present, Results could be affected. Hemolysis present, Results could be affected. Nucleated red blood cell per centageOrdered By: León Mccray on 08-12-2025 Nucleated RBC/100 WBC (Bld) [Ratio] 0 % 0-5 [facility] Oncology Visit Reporton 07-16 Oncology Visit Report [facility] [address] [place] [address] OFFICE VISIT Date of Service: 08/12/25822 MR#: [id number] Acct: [id number] Name: LEON RIDER Rep #: [id number] : 1980 From: León Mccray MD Age/Sex: 45/M [place] [facility] [place] Signed HPI Subjective Date of Service 08/12/25 Chief Complaint Referred for anemia. 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 He has had esophageal varices which has been banded in [place]. [facility] Hx of cirrhosis Anemia Chronic idiopathic thrombocytopenia HTN (hypertension) Diabetes Acid reflux Rectal bleeding Hemorrhoids Surgical History H/O umbilical hernia repair [place] teeth extracted Family History Other Diabetes Heart [...] - Continuous Positive Airway 07/23/25 08/12/25 History Pressure([facility] INFORMATIONAL USE ONLY) bumetanide 2 mg [...] no murmurs (more content not included)... Normal [facility] Partial Thromboplast Timeon 08-12-2025 aPTT Coag (Bld) [Time] 35.9 s Normal 24.1-36.2 [facility] Comment on above: Performed By: #### L 506.0200, L503.0106, L100.9950, L503.6030, L503.6550 #### [facility] [address] [place], [address] Phosphoruson 08-12-2025 Phosphate [Mass/Vol] 2.9 mg/dL Normal 2.7-4.5 [facility] Comment on above: Performed By: #### L 506.0200, L503.0106, L100.9950, L503.6030, L503.6550 #### [facility] [address] [place], [address] Platelet countOrdered By: Radha Mccray on 08-12-2025 Platelets (Bld) [#/Vol] 115 10*3/uL Low 150-450 [facility] Potassium measurement (mass/ volume)Ordered By: León Mccray on 08-12-2025 Potassium (Unsp spec) [Mass/Vol] 3.5 mmol/L 3.3-5.1 [facility] Comment on above: Hemolysis present, R esults could be affected. Hemolysis present, Results could be affected. Protein Test strip Ql (U)Ord ered By: León Mccray on 08-12-2025 Protein Ql (U) 15 mg/dl High Negative [facility] Prothrombin Time w/INRon INR Coag (PPP) [Relative time] 1.6 {INR} Normal [facility] Comment on above: Performed By: #### L 506.0200, L503.0106, L100.9950, L503.6030, L503.6550 #### [facility] [address] [place], [address] PT Coag (PPP) [Time] 19.8 s High 11.7-14.9 [facility] Comment on above: Performed By: #### L 506.0200, L503.0106, L100.9950, L503.6030, L503.6550 #### [facility] [address] [place], [address] Prothrombin timeOrdered By: León Mccray on 08-12-2025 PT Coag (PPP) [Time] 19.8 s High 11.7-14.9 [facility] RBC Auto (Bld) [#/Vol]Ordere d By: León Mccray on 08-12-2025 RBC (Bld) [#/Vol] 3.73 10*6/uL Low 4.6-6.2 [facility] Retic Panelon 08-12-2025 IM RET FRACTION 27.60 High 3.00-15.90 [facility] Comment on above: Performed By: #### L 506.0200, L503.0106, L100.9950, L503.6030, L503.6550 #### [facility] [address] [place], [place], [address] RET-HE 29.9 pg Low 30-35 [facility] Comment on above: Performed By: #### L 506.0200, L503.0106, L100.9950, L503.6030, L503.6550 #### [facility] [address] [place], [address] Retic Count 2.66 High 0.5-1.5 [facility] Comment on above: Performed By: #### L 506.0200, L503.0106, L100.9950, L503.6030, L503.6550 #### [facility] [address] [place], [place], [address] Reticulocyte hemoglobin equi valent (RET-He) measurementOrdered By: León Mccray on 08-12-2025 Hemoglobin (Reticulocytes) [Entitic mass] 29.9 pg Low 30-35 [facility] Reticulocytes Auto (Bld) [#/ Vol]Ordered By: León Mccray on 08-12-2025 Reticulocytes/100 RBC (Bld) 2.66 % High 0.5-1.5 [facility] Serum creatinine measurement (mass/volume)Ordered By: León Mccray on 08-12-2025 Creatinine [Mass/Vol] 0.72 mg/dL 0.70-1.[address] [facility] Serum globulin measurementOr dered By: León Mccray on 08-12-2025 Globulin (S) [Mass/Vol] 5.7 g/dL High 2.2-4.2 [facility] Serum glucose measurement (m ass/volume)Ordered By: León Mccray on 08-12-2025 Glucose [Mass/Vol] 133 mg/dL High 70-99 [facility] Serum or plasma C reactive p rotein measurement (mass/volume)Ordered By: León Mccray on 08-12-2025 CRP [Mass/Vol] 33.40 mg/L High 0.0-3.0 [facility] Serum or plasma alanine reyes otransferase (ALT) measurementOrdered By: León Mccray on 08-12-2025 ALT [Catalytic activity/Vol] 28 U/L <47 [facility] Serum or plasma albumin wilfred urement (mass/volume)Ordered By: León Mccray on 08-12-2025 Albumin [Mass/Vol] 2.6 g/dL Low 3.5-5.0 [facility] Serum or plasma albumin/glob ulin mass ratioOrdered By: León Mccray on 08-12-2025 Albumin/Globulin [Mass ratio] 0.5 {ratio} Low 0.9-2.4 [facility] Serum or plasma alkaline roge sphatase measurementOrdered By: León Mccray on 08-12-2025 ALP [Catalytic activity/Vol] 115 U/L 40-129 [facility] Serum or plasma calcium wilfred urement (mass/volume)Ordered By: León Mccray on 08-12-2025 Calcium [Mass/Vol] 8.0 mg/dL 7.6-11.0 [facility] Serum or plasma ferritin shelby surement (mass/volume)Ordered By: León Mccray on 08-12-2025 Ferritin [Mass/Vol] 60 ng/mL 37-417 [facility] Serum or plasma iron saturat ion measurement (mass fraction)Ordered By: León Mccray on 08-12-2025 Iron saturation [Mass fraction] 12.3 % 9-55 [facility] Serum or plasma urea nitroge n measurement (mass/volume)Ordered By: León Mccray on 08-12-2025 Urea nitrogen [Mass/Vol] 11 mg/dL 4-19 [facility] Sodium levelOrdered By: Greg Mccray on 08-12-2025 Sodium [Moles/Vol] 135 mmol/L 133-145 [facility] Squamous epithelial cells de tection in urine sediment by light microscopyOrdered By: León Mccray on 08-12-2025 Epithelial cells.squamous LM Ql (Urine sed) 0-5 SEEN /hpf 0-5 [facility] Total proteinOrdered By: Sánchez Mccray on 08-12-2025 Protein [Mass/Vol] 8.3 g/dL 5.9-8.4 [facility] Urinalysis, Completeon 08-12 EPI,SQUAMOUS 0-5 SEEN Normal 0-5 [facility] Comment on above: Order Comment: MISAEL CTOR TO SPECIFY Performed By: #### L 501.080 #### [facility] [address] [place], [address] RBC 5-10 SEEN Normal 0-5 [facility] Comment on above: Order Comment: MISAEL CTOR TO SPECIFY Performed By: #### L 501.080 #### [facility] [address] [place], [address] BACTERIA 0 SEEN Normal None Seen [facility] Comment on above: Order Comment: MISAEL CTOR TO SPECIFY Performed By: #### L 501.080 #### [facility] [address] [place], [address] Mucus Ql (Urine sed) 0 SEEN Normal [facility] Comment on above: Order Comment: MISAEL CTOR TO SPECIFY Performed By: #### L 501.080 #### [facility] [address] [place], [address] WBC 0 SEEN Normal 0-5 [facility] Comment on above: Order Comment: MISAEL CTOR TO SPECIFY Performed By: #### L 501.080 #### [facility] [address] [place], [address] Urine clarityOrdered By: Sánchez Mccray on 08-12-2025 Clarity (U) Clear Clear [facility] Urine color determinationOrd ered By: León Mccray on 08-12-2025 Color (U) Yellow Yellow [facility] Urine glucose detectionOrder ed By: León Mccray on 08-12-2025 Glucose Ql (U) Normal mg/dl Normal [facility] Urine leukocyte esterase det ection by dipstickOrdered By: León Mccray on 08-12-2025 Leukocyte esterase Test strip Ql (U) Negative Negative [facility] Urine pHOrdered By: León amador on 08-12-2025 pH (U) 7.0 [pH] 5.0 - 8.0 [facility] Urine sediment bacteria coun t by microscopy (number/high power field)Ordered By: León Mccray on 08-12-2025 Bacteria LM.HPF (Urine sed) [#/Area] 0 /[HPF] None Seen [facility] Urine specific gravity measu rementOrdered By: León Mccray on 08-12-2025 Specific gravity (U) [Rel density] 1.010 1.002-1.03 0 [facility] Urine urobilinogen measureme ntOrdered By: León Mccray on 08-12-2025 Urobilinogen Ql (U) 8 mg/dl High Normal [facility] White blood cell (WBC) count Ordered By: León Mccray on 08-12-2025 WBC (Bld) [#/Vol] 5.2 10*3/uL 4.4-11.0 [facility] White blood cell countOrdere d By: León Mccray on 08-12-2025 White blood cell count 0 SEEN /hpf 0-5 [facility] Erythropoietinon 08-05-2025 ERYTHROPOIETIN 254.5 mIU/mL High 2.6-18.5 [facility] Comment on above: Order Comment: Order Date: 08/02/25Order Info: [id number] - NICK Result Comment: [employer] DxI 800 Immunoassay System Values obtained with different assay methods or kits cannot be used interchangeably. Results cannot be interpreted as absolute evidence of the presence or absence of malignant disease. Performed at: [facility] [id number] [employer] Hand: Tres Cm PhD, Phone: [phone] Performed By: #### L 506.0200, L503.0106, L100.4450, L503.3630, L503.5250 #### [facility] [address] [place], [address] Absolute lymphocyte countOrd ered By: Alis Duran on 08-02-2025 Lymphocytes Auto (Unsp spec) [#/Vol] 1.04 10*3/uL 0.83-4.51 [facility] Absolute neutrophil countOrd ered By: Alis Duran on 08-02-2025 Neutrophils (Bld) [#/Vol] 3.7 10*3/uL 2.0-7.7 [facility] Automated lymphocyte count a s percentage of total leukocytesOrdered By: Alis Duran on 08-02-2025 Lymphocytes/100 WBC Auto (Unsp spec) 17.5 % Low 19-41 [facility] Basophil percentageOrdered B y: Alis Duran on 08-02-2025 Basophils/100 WBC (Bld) 1.2 % High 0-1 [facility] Blood manual differential co mment interpretation (narrative result)Ordered By: Alis Duran on 08-02-2025 Manual differential comment Hans (Bld) [Interp] SCANNED [facility] Blood polychromasia detectio n by light microscopyOrdered By: Alis Duran on 08-02-2025 Polychromasia LM Ql (Bld) 1+ [facility] CBC W/Diff, Automatedon 07-15 OVALOCYTE 1+ Normal [facility] Comment on above: Order Comment: Order Date: 08/02/25Order Info: [id number] - CBCD Performed By: #### L 506.0200, L503.0106, L100.9950, L503.6030, L503.6550 #### [facility] [address] [place], [address] Anisocytosis Ql (Bld) 2+ Normal [facility] Comment on above: Order Comment: Order Date: 08/02/25Order Info: [id number] - CBCD Performed By: #### L 506.0200, L503.0106, L100.9950, L503.6030, L503.6550 #### [facility] [address] [place], [address] POLYCHROMASIA 1+ Normal [facility] Comment on above: Order Comment: Order Date: 08/02/25Order Info: [id number] - CBCD Performed By: #### L 506.0200, L503.0106, L100.9950, L503.6030, L503.6550 #### [facility] [address] [place], [address] PLT EST SLT DEC Normal ADEQ [facility] Comment on above: Order Comment: Order Date: 08/02/25Order Info: [id number]- - CBCD Performed By: #### L 506.0200, L503.0106, L100.9950, L503.6030, L503.6550 #### [facility] [address] [place], [address] SMEAR COMMENT SCANNED Normal [facility] Comment on above: Order Comment: Order Date: 08/02/25Order Info: [id number]- - CBCD Performed By: #### L 506.0200, L503.0106, L100.9950, L503.6030, L503.6550 #### [facility] [address] [place], [address] Eosinophil percentageOrdered By: Alis Duran on 08-02-2025 Eosinophils/100 WBC (Bld) 5.5 % High 0-5 [facility] Erythrocyte distribution wid th ratioOrdered By: Alis Duran on 08-02-2025 Erythrocyte distribution width (RBC) [Ratio] 25.7 % High 11.6-14.6 [facility] Erythrocyte distribution wid th standard deviationOrdered By: Alis Duran on 08-02-2025 Erythrocyte distribution width (RBC) [Ratio] 78.2 fl High 35.1-43.9 [facility] Hematocrit Auto (Bld) [Volum e fraction]Ordered By: Alis Duran on 08-02-2025 Hematocrit (Bld) [Volume fraction] 30.1 % Low 40-54 [facility] Hemoglobin measurementOrdere d By: Alis Duran on 08-02-2025 Hemoglobin (Bld) [Mass/Vol] 9.3 g/dL Low 13.0-16.5 [facility] Immature granulocytes/100 WB C Auto (Bld)Ordered By: Alis Duran on 08-02-2025 Immature granulocytes/100 WBC (Bld) 0.500 % 0.0-0.9 [facility] Comment on above: IG% - Immature Granu locytes (promyelocytes, myelocytes and metamyelocytes) > 1% indicates that a LEFT SHIFT is Present. Laboratory - Hematology and Cell countsOrdered By: Alis Duran on 08-02-2025 Anisocytosis Ql (Bld) 2+ [facility] MCV (mean corpuscular volume ) determinationOrdered By: Alis Duran on 08-02-2025 MCV (RBC) [Entitic vol] 85.8 fL 80-94 [facility] Mean corpuscular hemoglobin (MCH) determinationOrdered By: Alis Duran on 08-02-2025 MCH (RBC) [Entitic mass] 26.5 pg Low 27.0-32.0 [facility] Mean corpuscular hemoglobin concentration (MCHC) determinationOrdered By: Alis Duran on 08-02-2025 MCHC (RBC) [Mass/Vol] 30.9 g/dL Low 32-[address] [facility] Mean platelet volume determi nationOrdered By: Alis Duran on 08-02-2025 Platelet mean volume (Bld) [Entitic vol] 10.7 fL 6.2-12.0 [facility] Monocyte percentageOrdered B y: Alis Duran on 08-02-2025 Monocytes/100 WBC (Bld) 13.4 % High 0-10 [facility] Neutrophil percentageOrdered By: [facility] Dur[facility] on 08-02-2025 Neutrophils/100 WBC (Bld) 61.9 % 47-70 [facility] Nucleated red blood cell per centageOrdered By: Alis Duran on 08-02-2025 Nucleated RBC/100 WBC (Bld) [Ratio] 0 % 0-5 [facility] Ovalocyte detectionOrdered B y: Alis Duran on 08-02-2025 Ovalocytes LM Ql (Bld) 1+ [facility] Platelet countOrdered By: Darrick Duran on 08-02-2025 Platelets (Bld) [#/Vol] 132 10*3/uL Low 150-450 [facility] Platelet estimateOrdered By: Alis Duran on 08-02-2025 Platelets LM Ql (Bld) SLT DEC ADEQ [facility] RBC Auto (Bld) [#/Vol]Ordere d By: Alis Duran on 08-02-2025 RBC (Bld) [#/Vol] 3.51 10*6/uL Low 4.6-6.2 [facility] Serum or plasma erythropoiet in (EPO) measurement (units/volume)Ordered By: Alis Duran on 08-02-2025 Erythropoietin (EPO) Qn 254.5 mIU/mL High 2.6-18.5 [facility] Comment on above: Educents el DxI 800 Immunoassay SystemValues obtained with different assay methods or kits cannotbe used interchangeably. Results cannot be interpreted asabsolute evidence of the presence or absence of malignantdisease.Performed at: [facility] [id number] Director: Tres Cm PhD, Phone: [phone] Vitamin B12on 08-02-2025 Cobalamin (Vitamin B12) [Mass/Vol] 1591 pg/mL High 180-914 [facility] Comment on above: Performed By: #### L 506.0200, L503.0106, L100.9950, L503.6030, L503.6550 #### [facility] [address] [facility] [place], [address] Vitamin B12 ser/plasOrdered By: Alis Duran on 08-02-2025 Cobalamin (Vitamin B12) [Mass/Vol] 1591 pg/mL High 180-914 [facility] White blood cell (WBC) count Ordered By: Alis Duran on 08-02-2025 WBC (Bld) [#/Vol] 6.0 10*3/uL 4.4-11.0 [facility] 12 Lead EKGon 07-26-2025 12 Lead EKG [facility] [address] [address] 12 Lead EKG 07/26/25 1413 MR#: [id number] Acct: [id number] Name: LEON RIDER Rep #: [id number] : 1980 45 From: Jocelyne Henley MD Attending Dr: Dr. Myriam Aguilar DO Status: DIS I N Ordering Dr: Myriam Aguilar DO Date: 07/26/25 Location: [facility] Sex: M C Admitted: 07/21/25 Test Reason [...] Lateral leads Confirmed by Jocelyne Henley ([id number]), subeditor JACQUELYN ANDRADE ([id number]) on 07/29/2025 1:29:21 PM Referred By: Confirmed By: Jocelyne Henley 07/29/25 1329 Date Jocelyne Henley MD CC: Dr. Alis Duran MD; Dr. Myriam Aguilar DO Signed Normal [facility] Anion gap in Serum or Plasma Ordered By: Myriam Aguilar on 07-26-2025 Anion gap [Moles/Vol] 9 mmol/L 5- [facility] BUN/creatinine ratioOrdered By: Myriam Aguilar on 07-26-2025 Urea nitrogen/Creatinine [Mass ratio] 11.9 mg/mg 10- [facility] Bedside Glucoseon 07-26-2025 FINGERSTICK GLU 188 mg/dL High 74-106 [facility] Comment on above: Result Comment: PADDY GEMENT OF PATIENT CARE PER NURSING PROTOCOL Performed By: #### L 500.4050, L100.0100 #### [facility] [address] [place], [address] FINGERSTICK GLU 142 mg/dL High 74-106 [facility] Comment on above: Result Comment: PADDY GEMENT OF PATIENT CARE PER NURSING PROTOCOL Performed By: #### L 506.0200, L503.0106, L100.9950, L503.6030, L503.6550 #### [facility] [address] [place], [address] Bilirubin, totalOrdered By: Myriam Aguilar on 07-26-2025 Bilirubin [Mass/Vol] 1.75 mg/dL High 0.00-1.30 [facility] CBC-Complete Blood Cnt No Di ffon 07-26-2025 Erythrocyte distribution width (RBC) [Ratio] 24.9 % High 11.6-14.6 [facility] Comment on above: Performed By: #### L 506.0200, L503.0106, L100.9950, L503.6030, L503.6550 #### [facility] [address] [place], [address] Hematocrit (Bld) [Volume fraction] 25.3 % Low 40-54 [facility] Comment on above: Performed By: #### L 506.0200, L503.0106, L100.9950, L503.6030, L503.6550 #### [facility] [address] [place], [address] Hemoglobin (Bld) [Mass/Vol] 8.1 g/dL Low 13.0-16.5 [facility] Comment on above: Performed By: #### L 506.0200, L503.0106, L100.9950, L503.6030, L503.6550 #### [facility] [address] [place], [address] MCH (RBC) [Entitic mass] 26.7 pg Low 27.0-32.0 [facility] Comment on above: Performed By: #### L 506.0200, L503.0106, L100.9950, L503.6030, L503.6550 #### [facility] [address] [place], [address] MCHC (RBC) [Mass/Vol] 32.0 g/dL Normal 32-[address] [facility] Comment on above: Performed By: #### L 506.0200, L503.0106, L100.9950, L503.6030, L503.6550 #### [facility] [address] [place], [address] MCV (RBC) [Entitic vol] 83.5 fL Normal 80-94 [facility] Comment on above: Performed By: #### L 506.0200, L503.0106, L100.9950, L503.6030, L503.6550 #### [facility] [address] [place], [address] Platelet mean volume (Bld) [Entitic vol] 9.9 fL Normal 6.2-12.0 [facility] Comment on above: Performed By: #### L 506.0200, L503.0106, L100.9950, L503.6030, L503.6550 #### [facility] [address] [place], [address] Platelets (Bld) [#/Vol] 129 10*3/uL Low 150-450 [facility] Comment on above: Performed By: #### L 506.0200, L503.0106, L100.9950, L503.6030, L503.6550 #### [facility] [address] [place], [address] RBC (Bld) [#/Vol] 3.03 10*6/uL Low 4.6-6.2 [facility] Comment on above: Performed By: #### L 506.0200, L503.0106, L100.9950, L503.6030, L503.6550 #### [facility] [address] [place], [address] RDW SD 71.4 fl High 35.1-43.9 [facility] Comment on above: Performed By: #### L 506.0200, L503.0106, L100.9950, L503.6030, L503.6550 #### [facility] [address] [place], [address] WBC (Bld) [#/Vol] 6.0 10*3/uL Normal 4.4-11.0 [facility] Comment on above: Performed By: #### L 506.0200, L503.0106, L100.9950, L503.6030, L503.6550 #### [facility] [address] [place], [address] Carbon dioxide, total [Moles /volume] in Central venous bloodOrdered By: Myriam Aguilar on 07-26-2025 CO2 [Moles/Vol] 23.3 mmol/L 21.0-32.0 [facility] Chloride assayOrdered By: Sakshi Aguilar on 07-26-2025 Chloride [Moles/Vol] 101 mmol/L 98-108 [facility] Comprehensive Metabolic Prof ilon 07-26-2025 Albumin [Mass/Vol] 2.0 g/dL Low 3.5-5.0 [facility] Comment on above: Performed By: #### L 506.0200, L503.0106, L100.9950, L503.6030, L503.6550 #### [facility] [address] [place], [address] Albumin/Globulin [Mass ratio] 0.5 {ratio} Low 0.9-2.4 [facility] Comment on above: Performed By: #### L 506.0200, L503.0106, L100.9950, L503.6030, L503.6550 #### [facility] [address] [place], [address] ALK PHOS 128 U/L Normal 40-129 [facility] Comment on above: Performed By: #### L 506.0200, L503.0106, L100.9950, L503.6030, L503.6550 #### [facility] [address] [place], [address] ALT [Catalytic activity/Vol] 27 U/L Normal <=46 [facility] Comment on above: Performed By: #### L 506.0200, L503.0106, L100.9950, L503.6030, L503.6550 #### [facility] [address] [place], [address] AST [Catalytic activity/Vol] 47 U/L High <=37 [facility] Comment on above: Performed By: #### L 506.0200, L503.0106, L100.9950, L503.6030, L503.6550 #### [facility] [address] [place], [address] Bilirubin [Mass/Vol] 1.75 mg/dL High 0.00-1.30 [facility] Comment on above: Performed By: #### L 506.0200, L503.0106, L100.9950, L503.6030, L503.6550 #### [facility] [address] [place], [address] BUN/CRE 11.9 RATIO Normal 10-20 [facility] Comment on above: Performed By: #### L 506.0200, L503.0106, L100.9950, L503.6030, L503.6550 #### [facility] [address] [place], [address] Calcium [Mass/Vol] 7.3 mg/dL Low 7.6-11.0 [facility] Comment on above: Performed By: #### L 506.0200, L503.0106, L100.9950, L503.6030, L503.6550 #### [facility] [address] [place], [address] Chloride [Moles/Vol] 101 mmol/L Normal 98-108 [facility] Comment on above: Performed By: #### L 506.0200, L503.0106, L100.9950, L503.6030, L503.6550 #### [facility] [address] [place], [address] CO2 [Moles/Vol] 23.3 mmol/L Normal 21.0-32.0 [facility] Comment on above: Performed By: #### L 506.0200, L503.0106, L100.9950, L503.6030, L503.6550 #### [facility] [address] [place], [address] Creatinine [Mass/Vol] 0.69 mg/dL Low 0.70-1.[address] [facility] Comment on above: Performed By: #### L 506.0200, L503.0106, L100.9950, L503.6030, L503.6550 #### [facility] [address] [place], [address] ECRCL 217.11 ml/min Normal 50-250 [facility] Comment on above: Performed By: #### L 506.0200, L503.0106, L100.9950, L503.6030, L503.6550 #### [facility] [address] [place], [address] GAP 9 Normal 5-15 [facility] Comment on above: Performed By: #### L 506.0200, L503.0106, L100.9950, L503.6030, L503.6550 #### [facility] [address] [place], [address] GFR/1.73 sq M.predicted among non-blacks MDRD (S/P/Bld) [Vol rate/Area] 115 mL/min/{1.73_m2} Normal >60 [facility] Comment on above: Result Comment: mL/m in/1.73m2 CKD-EPI Creatinine Equation (2020) Performed By: #### L 506.0200, L503.0106, L100.9950, L503.6030, L503.6550 #### [facility] [address] [place], [address] Globulin (S) [Mass/Vol] 4.1 g/dL Normal 2.2-4.2 [facility] Comment on above: Performed By: #### L 506.0200, L503.0106, L100.9950, L503.6030, L503.6550 #### [facility] [address] [place], [address] Glucose [Mass/Vol] 140 mg/dL High 70-99 [facility] Comment on above: Performed By: #### L 506.0200, L503.0106, L100.9950, L503.6030, L503.6550 #### [facility] [address] [place], [address] Potassium [Moles/Vol] 3.5 mmol/L Normal 3.3-5.[address] [facility] Comment on above: Performed By: #### L 506.0200, L503.0106, L100.9950, L503.6030, L503.6550 #### [facility] [address] [place], [address] Sodium [Moles/Vol] 133 mmol/L Normal 133-145 [facility] Comment on above: Performed By: #### L 506.0200, L503.0106, L100.9950, L503.6030, L503.6550 #### [facility] [address] [place], [address] T PROT 6.1 g/dL Normal 5.9-8.4 [facility] Comment on above: Performed By: #### L 506.0200, L503.0106, L100.9950, L503.6030, L503.6550 #### [facility] [address] [place], [address] Urea nitrogen [Mass/Vol] 8 mg/dL Normal 4-19 [facility] Comment on above: Performed By: #### L 506.0200, L503.0106, L100.9950, L503.6030, L503.6550 #### [facility] [address] [place], [address] Culture, Blood (WB)on 2024 CUB Blood cultures x2, f rom two different sites No growth in 5 days. Normal [facility] Comment on above: Performed By: #### L 501.080 #### [facility] [address] [place], [address] CUB Blood cultures x2, f rom two different sites No growth in 5 days. Normal [facility] Comment on above: Performed By: #### L 499.0043 #### [facility] [address] [place], [address] Erythrocyte distribution wid th ratioOrdered By: Myriam Aguilar on 07-26-2025 Erythrocyte distribution width (RBC) [Ratio] 24.9 % High 11.6-14.6 [facility] Erythrocyte distribution wid th standard deviationOrdered By: Myriam Aguilar on 07-26-2025 Erythrocyte distribution width (RBC) [Ratio] 71.4 fl High 35.1-43.9 [facility] Glomerular filtration rate ( GFR) estimation/1.73 sq m using serum, plasma, or whole bOrdered By: Myriam Aguilar on 07-26-2025 GFR/1.73 sq M.predicted among non-blacks MDRD (S/P/Bld) [Vol rate/Area] 115 mL/min/{1.73_m2} >60 [facility] Comment on above: mL/min/1.73m2 CKD-EP I Creatinine Equation (2020) [facility]dered By: Myriam Aguilar on 07-26-2025 Glucose [Mass/Vol] 188 mg/dL High 74-106 [facility] Comment on above: MANAGEMENT OF PATIEN T CARE PER NURSING PROTOCOL Glucose [Mass/Vol] 142 mg/dL High 74-106 [facility] Comment on above: MANAGEMENT OF PATIEN T CARE PER NURSING PROTOCOL Hematocrit Auto (Bld) [Volum e fraction]Ordered By: Myriam Aguilar on 07-26-2025 Hematocrit (Bld) [Volume fraction] 25.3 % Low 40-54 [facility] Hemoglobin measurementOrdere d By: Myriam Aguilar on 07-26-2025 Hemoglobin (Bld) [Mass/Vol] 8.1 g/dL Low 13.0-16.5 [facility] - Chemistry and C hemistry - challengeOrdered By: Myriam Aguilar on 07-26-2025 AST [Catalytic activity/Vol] 47 U/L High <38 [facility] MCV (mean corpuscular volume ) determinationOrdered By: Myriam Aguilar on 07-26-2025 MCV (RBC) [Entitic vol] 83.5 fL 80-94 [facility] Magnesiumon 07-26-2025 Magnesium [Mass/Vol] 1.9 mg/dL Normal 1.5-2.2 [facility] Comment on above: Performed By: #### L 506.0200, L503.0106, L100.9950, L503.6030, L503.6550 #### [facility] [address] [facility] [place], [place], [address] Magnesium measurement (mass/ volume)Ordered By: Myriam Aguilar on 07-26-2025 Magnesium (Unsp spec) [Mass/Vol] 1.9 mg/dL 1.5-2.2 [facility] Mean corpuscular hemoglobin (MCH) determinationOrdered By: Myriam Aguilar on 07-26-2025 MCH (RBC) [Entitic mass] 26.7 pg Low 27.0-32.0 [facility] Mean corpuscular hemoglobin concentration (MCHC) determinationOrdered By: Myriam Aguilar on 07-26-2025 MCHC (RBC) [Mass/Vol] 32.0 g/dL 32-[address] [facility] Mean platelet volume determi nationOrdered By: Myriam Aguilar on 07-26-2025 Platelet mean volume (Bld) [Entitic vol] 9.9 fL 6.2-12.0 [facility] Phosphoruson 07-26-2025 Phosphate [Mass/Vol] 2.7 mg/dL Normal 2.7-4.5 [facility] Comment on above: Performed By: #### L 506.0200, L503.0106, L100.9950, L503.6030, L503.6550 #### [facility] [address] [place], [address] Platelet countOrdered By: Sakshi Aguilar on 07-26-2025 Platelets (Bld) [#/Vol] 129 10*3/uL Low 150-450 [facility] Potassium measurement (mass/ volume)Ordered By: Myriam Aguilar on 07-26-2025 Potassium (Unsp spec) [Mass/Vol] 3.5 mmol/L 3.3-5.1 [facility] RBC Auto (Bld) [#/Vol]Ordere d By: Myriam Aguilar on 07-26-2025 RBC (Bld) [#/Vol] 3.03 10*6/uL Low 4.6-6.2 [facility] Serum creatinine measurement (mass/volume)Ordered By: Myriam Aguilar on 07-26-2025 Creatinine [Mass/Vol] 0.69 mg/dL Low 0.70-1.[address] [facility] Serum globulin measurementOr dered By: Myriam Aguilar on 07-26-2025 Globulin (S) [Mass/Vol] 4.1 g/dL 2.2-4.2 [facility] Serum glucose measurement (m ass/volume)Ordered By: Myriam Aguilar on 07-26-2025 Glucose [Mass/Vol] 140 mg/dL High 70-99 [facility] Serum or plasma alanine reyes otransferase (ALT) measurementOrdered By: Myriam Aguilar on 07-26-2025 ALT [Catalytic activity/Vol] 27 U/L <47 [facility] Serum or plasma albumin wilfred urement (mass/volume)Ordered By: Myriam Aguilar on 07-26-2025 Albumin [Mass/Vol] 2.0 g/dL Low 3.5-5.0 [facility] Serum or plasma albumin/glob ulin mass ratioOrdered By: Myriam Aguilar on 07-26-2025 Albumin/Globulin [Mass ratio] 0.5 {ratio} Low 0.9-2.4 [facility] Serum or plasma alkaline roge sphatase measurementOrdered By: Myriam Aguilar on 07-26-2025 ALP [Catalytic activity/Vol] 128 U/L 40-129 [facility] Serum or plasma calcium wilfred urement (mass/volume)Ordered By: Myriam Aguilar on 07-26-2025 Calcium [Mass/Vol] 7.3 mg/dL Low 7.6-11.0 [facility] Serum or plasma urea nitroge n measurement (mass/volume)Ordered By: Myriam Aguilar on 07-26-2025 Urea nitrogen [Mass/Vol] 8 mg/dL 4-19 [facility] Sodium levelOrdered By: Ana Paula Aguilar on 07-26-2025 Sodium [Moles/Vol] 133 mmol/L 133-145 [facility] Total proteinOrdered By: Zuleyma Aguilar on 07-26-2025 Protein [Mass/Vol] 6.1 g/dL 5.9-8.4 [facility] White blood cell (WBC) count Ordered By: Myriam Aguilar on 07-26-2025 WBC (Bld) [#/Vol] 6.0 10*3/uL 4.4-11.0 [facility] Absolute lymphocyte countOrd ered By: Myriam Aguilar on 07-25-2025 Lymphocytes Auto (Unsp spec) [#/Vol] 0.91 10*3/uL 0.83-4.51 [facility] Absolute neutrophil countOrd ered By: Myriam Aguilar on 07-25-2025 Neutrophils (Bld) [#/Vol] 3.5 10*3/uL 2.0-7.7 [facility] Automated lymphocyte count a s percentage of total leukocytesOrdered By: Myriam Aguilar on 07-25-2025 Lymphocytes/100 WBC Auto (Unsp spec) 15.0 % Low 19-41 [facility] Basophil percentageOrdered B y: Myriam Aguilar on 07-25-2025 Basophils/100 WBC (Bld) 1.0 % 0-1 [facility] Bedside Glucoseon 07-25-2025 FINGERSTICK GLU 200 mg/dL High [address] [place] [address] Comment on above: Result Comment: PADDY GEMENT OF PATIENT CARE PER NURSING PROTOCOL Performed By: #### L 506.0200, L503.0106, L100.9950, L503.6030, L503.6550 #### [facility] [address] [place], [address] FINGERSTICK GLU 236 mg/dL High [facility]106 [facility] Comment on above: Result Comment: PADDY GEMENT OF PATIENT CARE PER NURSING PROTOCOL Performed By: #### L 501.080 #### [facility] [address] [place], [address] FINGERSTICK GLU 209 mg/dL High [address] [place] [address] Comment on above: Result Comment: PADDY GEMENT OF PATIENT CARE PER NURSING PROTOCOL Performed By: #### L 501.080 #### [facility] [address] [place], [address] FINGERSTICK GLU 149 mg/dL High [address] [place] [address] Comment on above: Result Comment: PADDY GEMENT OF PATIENT CARE PER NURSING PROTOCOL Performed By: #### L 501.080 #### [facility] [address] [place], [address] Blood polychromasia detectio n by light microscopyOrdered By: Myriam Aguilar on 07-25-2025 Polychromasia LM Ql (Bld) 1+ [facility] CBC W/Diff, Automatedon 07-15 OVALOCYTE 1+ Normal [facility] Comment on above: Performed By: #### L 506.0200, L503.0106, L100.9950, L503.6030, L503.6550 #### [facility] [address] [place], [address] POLYCHROMASIA 1+ Normal [facility] Comment on above: Performed By: #### L 506.0200, L503.0106, L100.9950, L503.6030, L503.6550 #### [facility] [address] [place], [address] Anisocytosis Ql (Bld) 3+ Normal [facility] Comment on above: Performed By: #### L 506.0200, L503.0106, L100.9950, L503.6030, L503.6550 #### [facility] [address] [place], [address] Comprehensive Metabolic Prof [facility] 07-25-2025 Albumin [Mass/Vol] 2.2 g/dL Low 3.5-5.0 [facility] Comment on above: Performed By: #### L 506.0200, L503.0106, L100.9950, L503.6030, L503.6550 #### [facility] [address] [place], [address] Albumin/Globulin [Mass ratio] 0.5 {ratio} Low 0.9-2.4 [facility] Comment on above: Performed By: #### L 506.0200, L503.0106, L100.9950, L503.6030, L503.6550 #### [facility] [address] [place], [address] ALK PHOS 103 U/L Normal 40-129 [facility] Comment on above: Performed By: #### L 506.0200, L503.0106, L100.9950, L503.6030, L503.6550 #### [facility] [address] [place], [address] ALT [Catalytic activity/Vol] 25 U/L Normal <=46 [facility] Comment on above: Performed By: #### L 506.0200, L503.0106, L100.9950, L503.6030, L503.6550 #### [facility] [address] [place], [address] AST [Catalytic activity/Vol] 40 U/L High <=37 [facility] Comment on above: Performed By: #### L 506.0200, L503.0106, L100.9950, L503.6030, L503.6550 #### [facility] [address] [place], [address] Bilirubin [Mass/Vol] 2.14 mg/dL High 0.00-1.30 [facility] Comment on above: Performed By: #### L 506.0200, L503.0106, L100.9950, L503.6030, L503.6550 #### [facility] [address] [place], [address] BUN/CRE 14.3 RATIO Normal 10-20 [facility] Comment on above: Performed By: #### L 506.0200, L503.0106, L100.9950, L503.6030, L503.6550 #### [facility] [address] [place], [address] Calcium [Mass/Vol] 7.5 mg/dL Low 7.6-11.0 [facility] Comment on above: Performed By: #### L 506.0200, L503.0106, L100.9950, L503.6030, L503.6550 #### [facility] [address] [place], [address] Chloride [Moles/Vol] 101 mmol/L Normal 98-108 [facility] Comment on above: Performed By: #### L 506.0200, L503.0106, L100.9950, L503.6030, L503.6550 #### [facility] [address] [place], [address] CO2 [Moles/Vol] 23.4 mmol/L Normal 21.0-32.0 [facility] Comment on above: Performed By: #### L 506.0200, L503.0106, L100.9950, L503.6030, L503.6550 #### [facility] [address] [place], [address] Creatinine [Mass/Vol] 0.58 mg/dL Low 0.70-1.[address] [facility] Comment on above: Performed By: #### L 506.0200, L503.0106, L100.9950, L503.6030, L503.6550 #### [facility] [address] [place], [address] ECRCL 257.84 ml/min High 50-250 [facility] Comment on above: Performed By: #### L 506.0200, L503.0106, L100.9950, L503.6030, L503.6550 #### [facility] [address] [place], [address] GAP 9 Normal 5-15 [facility] Comment on above: Performed By: #### L 506.0200, L503.0106, L100.9950, L503.6030, L503.6550 #### [facility] [address] [place], [address] GFR/1.73 sq M.predicted among non-blacks MDRD (S/P/Bld) [Vol rate/Area] 121 mL/min/{1.73_m2} Normal >60 [facility] Comment on above: Result Comment: mL/m in/1.73m2 CKD-EPI Creatinine Equation (2020) Performed By: #### L 506.0200, L503.0106, L100.9950, L503.6030, L503.6550 #### [facility] [address] [place], [address] Globulin (S) [Mass/Vol] 4.2 g/dL Normal 2.2-4.2 [facility] Comment on above: Performed By: #### L 506.0200, L503.0106, L100.9950, L503.6030, L503.6550 #### [facility] [address] [place], [address] Glucose [Mass/Vol] 154 mg/dL High 70-99 [facility] Comment on above: Performed By: #### L 506.0200, L503.0106, L100.9950, L503.6030, L503.6550 #### [facility] [address] [place], [address] Potassium [Moles/Vol] 3.6 mmol/L Normal 3.3-5.[address] [facility] Comment on above: Performed By: #### L 506.0200, L503.0106, L100.9950, L503.6030, L503.6550 #### [facility] [address] [place], [address] Sodium [Moles/Vol] 133 mmol/L Normal 133-145 [facility] Comment on above: Performed By: #### L 506.0200, L503.0106, L100.9950, L503.6030, L503.6550 #### [facility] [address] [place], [address] T PROT 6.3 g/dL Normal 5.9-8.4 [facility] Comment on above: Performed By: #### L 506.0200, L503.0106, L100.9950, L503.6030, L503.6550 #### [facility] [address] [place], [address] Urea nitrogen [Mass/Vol] 8 mg/dL Normal 4-19 [facility] Comment on above: Performed By: #### L 506.0200, L503.0106, L100.9950, L503.6030, L503.6550 #### [facility] [address] [place], [address] Eosinophil percentageOrdered By: Myriam Aguilar on 07-25-2025 Eosinophils/100 WBC (Bld) 5.6 % High 0-5 [facility] Immature granulocytes/100 WB C Auto (Bld)Ordered By: Myriam Aguilar on 07-25-2025 Immature granulocytes/100 WBC (Bld) 1.700 % High 0.0-0.9 [facility] Comment on above: IG% - Immature Granu locytes (promyelocytes, myelocytes and metamyelocytes) > 1% indicates that a LEFT SHIFT is Present. Laboratory - Hematology and Cell countsOrdered By: Myriam Aguilar on 07-25-2025 Anisocytosis Ql (Bld) 3+ [facility] Monocyte percentageOrdered B y: Myriam Aguilar on 07-25-2025 Monocytes/100 WBC (Bld) 19.1 % High 0-10 [facility] Neutrophil percentageOrdered By: Myriam Aguilar on 07-25-2025 Neutrophils/100 WBC (Bld) 57.6 % 47-70 [facility] Nucleated red blood cell per centageOrdered By: Myriam Aguilar on 07-25-2025 Nucleated RBC/100 WBC (Bld) [Ratio] 0 % 0-5 [facility] Ovalocyte detectionOrdered B y: Myriam Aguilar on 07-25-2025 Ovalocytes LM Ql (Bld) 1+ [facility] Urine Cultureon 07-25-2025 URC #1, 2 Below infectio n level. Urine Culture Streptococcus agalactiae (B) [place] Count <1000 Mixed Gram Positive Organisms Mixed Gram Positive Organisms MIXC Mixed contaminants. Submit a new specimen if indicated. Normal [facility] Comment on above: Performed By: #### L 501.080 #### [facility] [address] [place], [address] Bedside Glucoseon 07-24-2025 FINGERSTICK GLU 201 mg/dL High -106 [facility] Comment on above: Result Comment: PADDY GEMENT OF PATIENT CARE PER NURSING PROTOCOL Performed By: #### L 506.0200, L503.0106, L100.9950, L503.6030, L503.6550 #### [facility] [address] [place], [address] FINGERSTICK GLU 230 mg/dL High 74-106 [facility] Comment on above: Result Comment: PADDY GEMENT OF PATIENT CARE PER NURSING PROTOCOL Performed By: #### L 501.080 #### [facility] [address] [place], [address] FINGERSTICK GLU 137 mg/dL High [address] [place] [address] Comment on above: Result Comment: PADDY GEMENT OF PATIENT CARE PER NURSING PROTOCOL Performed By: #### L 500.4050, L100.0100 #### [facility] [address] [place], [address] FINGERSTICK GLU 133 mg/dL High -106 [facility] Comment on above: Result Comment: PADDY GEMENT OF PATIENT CARE PER NURSING PROTOCOL Performed By: #### L 506.0200, L503.0106, L100.9950, L503.6030, L503.6550 #### [facility] [address] [place], [address] Blood manual differential co mment interpretation (narrative result)Ordered By: Timoteo Cooper on 07-24-2025 Manual differential comment Hans (Bld) [Interp] SCANNED [facility] CBC W/Diff, Automatedon 07-15 ACANTHOCYTE RARE Normal [facility] Comment on above: Performed By: #### L 500.4050, L100.0100 #### [facility] [address] [place], [address] Anisocytosis Ql (Bld) 2+ Normal [facility] Comment on above: Performed By: #### L 500.4050, L100.0100 #### [facility] [address] [place], [address] BASO STIPPLING 1+ Normal [facility] Comment on above: Performed By: #### L 500.4050, L100.0100 #### [facility] [address] [place], [address] PLT EST SLT DEC Normal ADEQ [facility] Comment on above: Performed By: #### L 500.4050, L100.0100 #### [facility] [address] [place], [address] POLYCHROMASIA 1+ Normal [facility] Comment on above: Performed By: #### L 500.4050, L100.0100 #### [facility] [address] [place], [address] SMEAR COMMENT SCANNED Normal [facility] Comment on above: Performed By: #### L 500.4050, L100.0100 #### [facility] [address] [place], [address] Comprehensive Metabolic Prof [facility] 07-24-2025 Albumin [Mass/Vol] 2.2 g/dL Low 3.5-5.0 [facility] Comment on above: Performed By: #### L 500.4050, L100.0100 #### [facility] [address] [place], [address] Albumin/Globulin [Mass ratio] 0.6 {ratio} Low 0.9-2.4 [facility] Comment on above: Performed By: #### L 500.4050, L100.0100 #### [facility] [address] [place], [address] ALK PHOS 110 U/L Normal 40-129 [facility] Comment on above: Performed By: #### L 500.4050, L100.0100 #### [facility] [address] [place], [address] ALT [Catalytic activity/Vol] 24 U/L Normal <=46 [facility] Comment on above: Performed By: #### L 500.4050, L100.0100 #### [facility] [address] [place], [address] AST [Catalytic activity/Vol] 41 U/L High <=37 [facility] Comment on above: Performed By: #### L 500.4050, L100.0100 #### [facility] [address] [place], [address] Bilirubin [Mass/Vol] 2.01 mg/dL High 0.00-1.30 [facility] Comment on above: Performed By: #### L 500.4050, L100.0100 #### [facility] [address] [place], [address] BUN/CRE 13.5 RATIO Normal 10-20 [facility] Comment on above: Performed By: #### L 500.4050, L100.0100 #### [facility] [address] [place], [address] Calcium [Mass/Vol] 7.5 mg/dL Low 7.6-11.0 [facility] Comment on above: Performed By: #### L 500.4050, L100.0100 #### [facility] [address] [place], [address] Chloride [Moles/Vol] 100 mmol/L Normal 98-108 [facility] Comment on above: Performed By: #### L 500.4050, L100.0100 #### [facility] [address] [place], [address] CO2 [Moles/Vol] 23.7 mmol/L Normal 21.0-32.0 [facility] Comment on above: Performed By: #### L 500.4050, L100.0100 #### [facility] [address] [place], [address] Creatinine [Mass/Vol] 0.64 mg/dL Low 0.70-1.[address] [facility] Comment on above: Performed By: #### L 500.4050, L100.0100 #### [facility] [address] [place], [address] ECRCL 233.67 ml/min Normal 50-250 [facility] Comment on above: Performed By: #### L 500.4050, L100.0100 #### [facility] [address] [place], [address] GAP 8 Normal 5-15 [facility] Comment on above: Performed By: #### L 500.4050, L100.0100 #### [facility] [address] [place], [address] GFR/1.73 sq M.predicted among non-blacks MDRD (S/P/Bld) [Vol rate/Area] 117 mL/min/{1.73_m2} Normal >60 [facility] Comment on above: Result Comment: mL/m in/1.73m2 CKD-EPI Creatinine Equation (2020) Performed By: #### L 500.4050, L100.0100 #### [facility] [address] [place], [address] Globulin (S) [Mass/Vol] 4.0 g/dL Normal 2.2-4.2 [facility] Comment on above: Performed By: #### L 500.4050, L100.0100 #### [facility] [address] [place], [address] Glucose [Mass/Vol] 146 mg/dL High 70-99 [facility] Comment on above: Performed By: #### L 500.4050, L100.0100 #### [facility] [address] [place], [address] Potassium [Moles/Vol] 3.7 mmol/L Normal 3.3-5.[address] [facility] Comment on above: Performed By: #### L 500.4050, L100.0100 #### [facility] [address] [place], [address] Sodium [Moles/Vol] 131 mmol/L Low 133-145 [facility] Comment on above: Performed By: #### L 500.4050, L100.0100 #### [facility] [address] [place], [address] T PROT 6.2 g/dL Normal 5.9-8.4 [facility] Comment on above: Performed By: #### L 500.4050, L100.0100 #### [facility] [address] [place], [address] Urea nitrogen [Mass/Vol] 9 mg/dL Normal 4-19 [facility] Comment on above: Performed By: #### L 500.4050, L100.0100 #### [facility] [address] [place], [address] Erythrocyte basophilic stipp ling detectionOrdered By: Timoteo Cooper on 07-24-2025 Basophilic stippling LM Ql (Bld) 1+ [facility] Platelet estimateOrdered By: Timoteo Cooper on 07-24-2025 Platelets LM Ql (Bld) SLT DEC ADEQ [facility] Abdomen Limitedon 07-23-2025 Abdomen Limited [facility] [address] [place] [address] Abdomen Limited MR#: [id number] Acct: [id number] Name: DARY,LEON ANGELA Rep #: [id number] : 1980 M 45 From: Landen nogueira MD PCP: Dr. Alis Duran MD Status: ADM IN Study: Abdomen Limited Date of Exam: 07/23/25 Exam# [id number] Ordering Dr: Timoteo Cooper MD PROCEDURE: ABDOMEN [...] in the right upper quadrant. Reading Location: [id number] CC: Dr. Alis Duran MD; Dr. Timoteo Cooper MD Hotel Controller: Signed Normal [facility] Bedside Glucoseon 07-23-2025 FINGERSTICK GLU 190 mg/dL High 74-106 [facility] Comment on above: Result Comment: PADDY GEMENT OF PATIENT CARE PER NURSING PROTOCOL Performed By: #### L 506.0200, L503.0106, L100.9950, L503.6030, L503.6550 #### [facility] [address] [place], [address] FINGERSTICK GLU 228 mg/dL High 74-106 [facility] Comment on above: Result Comment: PADDY GEMENT OF PATIENT CARE PER NURSING PROTOCOL Performed By: #### L 506.0200, L503.0106, L100.9950, L503.6030, L503.6550 #### [facility] [address] [place], [address] FINGERSTICK GLU 226 mg/dL High 74-106 [facility] Comment on above: Result Comment: PADDY GEMENT OF PATIENT CARE PER NURSING PROTOCOL Performed By: #### L 501.080 #### [facility] [address] [place], [address] FINGERSTICK GLU 129 mg/dL High 74-106 [facility] Comment on above: Result Comment: PADDY GEMENT OF PATIENT CARE PER NURSING PROTOCOL Performed By: #### L 500.4050, L100.0100 #### [facility] [address] [place], [address] CBC W/Diff, Automatedon 09-0 Anisocytosis Ql (Bld) 1+ Normal [facility] Comment on above: Performed By: #### L 500.4050, L100.0100 #### [facility] [address] [place], [address] Comprehensive Metabolic Prof ilon 07-23-2025 Chloride [Moles/Vol] 101 mmol/L Normal 98-108 [facility] Comment on above: Performed By: #### L 500.4050, L100.0100 #### [facility] [address] [place], [address] CO2 [Moles/Vol] 21.7 mmol/L Normal 21.0-32.0 [facility] Comment on above: Performed By: #### L 500.4050, L100.0100 #### [facility] [address] [place], [address] GAP 9 Normal 5-15 [facility] Comment on above: Performed By: #### L 500.4050, L100.0100 #### [facility] [address] [place], [address] Potassium [Moles/Vol] 3.8 mmol/L Normal 3.3-5.[address] [facility] Comment on above: Performed By: #### L 500.4050, L100.0100 #### [facility] [address] [place], [address] Albumin [Mass/Vol] 2.1 g/dL Low 3.5-5.0 [facility] Comment on above: Performed By: #### L 500.4050, L100.0100 #### [facility] [address] [place], [address] Albumin/Globulin [Mass ratio] 0.6 {ratio} Low 0.9-2.4 [facility] Comment on above: Performed By: #### L 500.4050, L100.0100 #### [facility] [address] [place], [address] ALK PHOS 126 U/L Normal 40-129 [facility] Comment on above: Performed By: #### L 500.4050, L100.0100 #### [facility] [address] [place], [address] ALT [Catalytic activity/Vol] 24 U/L Normal <=46 [facility] Comment on above: Performed By: #### L 500.4050, L100.0100 #### [facility] [address] [place], [address] AST [Catalytic activity/Vol] 36 U/L Normal <=37 [facility] Comment on above: Performed By: #### L 500.4050, L100.0100 #### [facility] [address] [place], [address] Bilirubin [Mass/Vol] 2.12 mg/dL High 0.00-1.30 [facility] Comment on above: Performed By: #### L 500.4050, L100.0100 #### [facility] [address] [place], [address] BUN/CRE 12.8 RATIO Normal 10-20 [facility] Comment on above: Performed By: #### L 500.4050, L100.0100 #### [facility] [address] [place], [address] Calcium [Mass/Vol] 7.5 mg/dL Low 7.6-11.0 [facility] Comment on above: Performed By: #### L 500.4050, L100.0100 #### [facility] [address] [place], [address] Creatinine [Mass/Vol] 0.70 mg/dL Normal 0.70-1.[address] [facility] Comment on above: Performed By: #### L 500.4050, L100.0100 #### [facility] [address] [place], [address] ECRCL 212.39 ml/min Normal 50-250 [facility] Comment on above: Performed By: #### L 500.4050, L100.0100 #### [facility] [address] [place], [address] GFR/1.73 sq M.predicted among non-blacks MDRD (S/P/Bld) [Vol rate/Area] 114 mL/min/{1.73_m2} Normal >60 [facility] Comment on above: Result Comment: mL/m in/1.73m2 CKD-EPI Creatinine Equation (2020) Performed By: #### L 500.4050, L100.0100 #### [facility] [address] [place], [address] Globulin (S) [Mass/Vol] 3.6 g/dL Normal 2.2-4.2 [facility] Comment on above: Performed By: #### L 500.4050, L100.0100 #### [facility] [address] [place], [address] Glucose [Mass/Vol] 154 mg/dL High 70-99 [facility] Comment on above: Performed By: #### L 500.4050, L100.0100 #### [facility] [address] [place], [address] Sodium [Moles/Vol] 132 mmol/L Low 133-145 [facility] Comment on above: Performed By: #### L 500.4050, L100.0100 #### [facility] [address] [place], [address] T PROT 5.7 g/dL Low 5.9-8.4 [facility] Comment on above: Performed By: #### L 500.4050, L100.0100 #### [facility] [address] [place], [address] Urea nitrogen [Mass/Vol] 9 mg/dL Normal 4-19 [facility] Comment on above: Performed By: #### L 500.4050, L100.0100 #### [facility] [address] [place], [address] Ferritinon 07-23-2025 Ferritin [Mass/Vol] 104 ng/mL Normal 37-417 [facility] Comment on above: Performed By: #### L 506.0200, L503.0106, L100.9950, L503.6030, L503.6550 #### [facility] [address] [place], [address] Folate [Moles/volume] in Ser um or PlasmaOrdered By: Timoteo Cooper on 07-23-2025 Folate [Moles/Vol] 10.50 ng/mL 4.60-34.80 [facility] Folates,Serum (Folic Acid)on 07-23-2025 FOLATES,SERUM 10.50 ng/mL Normal 4.60-34.80 [facility] Comment on above: Performed By: #### L 506.0200, L503.0106, L100.9950, L503.6030, L503.6550 #### [facility] [address] [place], [address] International normalized rat io (INR) calculationOrdered By: Timoteo Cooper on 07-23-2025 INR Coag (Bld) [Relative time] 1.6 {INR} [facility] Iron measurement (mass/mass) Ordered By: Timoteo Cooper on 07-23-2025 Iron (Unsp spec) [Mass/Mass] 152 ug/dL 65-175 [facility] Iron+Iron Binding Capacityon 07-23-2025 Iron [Mass/Vol] 152 ug/dL Normal 65-175 [facility] Comment on above: Performed By: #### L 506.0200, L503.0106, L100.9950, L503.6030, L503.6550 #### [facility] [address] [place], [address] IRON SATURATION 57.0 High 9-55 [facility] Comment on above: Performed By: #### L 506.0200, L503.0106, L100.9950, L503.6030, L503.6550 #### [facility] [address] [place], [address] TIBC 267 ug/dL Normal 250-450 [facility] Comment on above: Performed By: #### L 506.0200, L503.0106, L100.9950, L503.6030, L503.6550 #### [facility] [address] [place], [address] UIBC 115 ug/dL Low 228-428 [facility] Comment on above: Performed By: #### L 506.0200, L503.0106, L100.9950, L503.6030, L503.6550 #### [facility] [address] [place], [address] No Panel InformationOrdered By: Timoteo Cooper on 07-23-2025 Unsaturated Iron Binding Capacity 115 ug/dL Low 228-428 [facility] Prothrombin Time w/INRon INR Coag (PPP) [Relative time] 1.6 {INR} Normal [facility] Comment on above: Performed By: #### L 500.4050, L100.0100 #### [facility] [address] [place], [address] PT Coag (PPP) [Time] 19.8 s High 11.7-14.9 [facility] Comment on above: Performed By: #### L 500.4050, L100.0100 #### [facility] [address] [place], [address] Prothrombin timeOrdered By: Timoteo Cooper on 07-23-2025 PT Coag (PPP) [Time] 19.8 s High 11.7-14.9 [facility] Retic Panelon 07-23-2025 IM RET FRACTION 38.50 High 3.00-15.90 [facility] Comment on above: Performed By: #### L 506.0200, L503.0106, L100.9950, L503.6030, L503.6550 #### [facility] [address] [place], [address] RET-HE 30.2 pg Normal 30-35 [facility] Comment on above: Performed By: #### L 506.0200, L503.0106, L100.9950, L503.6030, L503.6550 #### [facility] [address] [place], [address] Retic Count 3.89 High 0.5-1.5 [facility] Comment on above: Performed By: #### L 506.0200, L503.0106, L100.9950, L503.6030, L503.6550 #### [facility] [address] [place], [address] Reticulocyte hemoglobin equi valent (RET-He) measurementOrdered By: Timoteo Cooper on 07-23-2025 Hemoglobin (Reticulocytes) [Entitic mass] 30.2 pg 30-35 [facility] Reticulocytes Auto (Bld) [#/ Vol]Ordered By: Timoteo Cooper on 07-23-2025 Reticulocytes/100 RBC (Bld) 3.89 % High 0.5-1.5 [facility] Serum or plasma ferritin shelby surement (mass/volume)Ordered By: Timoteo Cooper on 07-23-2025 Ferritin [Mass/Vol] 104 ng/mL 37-417 [facility] Serum or plasma iron saturat ion measurement (mass fraction)Ordered By: Timoteo Cooper on 07-23-2025 Iron saturation [Mass fraction] 57.0 % High 9-55 [facility] Vitamin B12on 07-23-2025 Cobalamin (Vitamin B12) [Mass/Vol] 1344 pg/mL High 180-914 [facility] Comment on above: Performed By: #### L 506.0200, L503.0106, L100.9950, L503.6030, L503.6550 #### [facility] [address] [place], [address] Vitamin B12 ser/plasOrdered By: Timoteo Cooper on 07-23-2025 Cobalamin (Vitamin B12) [Mass/Vol] 1344 pg/mL High 180-914 [facility] Bedside Glucoseon 07-22-2025 FINGERSTICK GLU 194 mg/dL High 74-106 [facility] Comment on above: Result Comment: PADDY GEMENT OF PATIENT CARE PER NURSING PROTOCOL Performed By: #### L 501.080 #### [facility] [address] [place], [address] FINGERSTICK GLU 236 mg/dL High 74-106 [facility] Comment on above: Result Comment: PADDY GEMENT OF PATIENT CARE PER NURSING PROTOCOL Performed By: #### L 501.080 #### [facility] [address] [place], [address] FINGERSTICK GLU 214 mg/dL High 74-106 [facility] Comment on above: Result Comment: PADDY GEMENT OF PATIENT CARE PER NURSING PROTOCOL Performed By: #### L 506.0200, L503.0106, L100.9950, L503.6030, L503.6550 #### [facility] [address] [place], [address] FINGERSTICK GLU 149 mg/dL High 74-106 [facility] Comment on above: Result Comment: PADDY GEMENT OF PATIENT CARE PER NURSING PROTOCOL Performed By: #### L 506.0200, L503.0106, L100.9950, L503.6030, L503.6550 #### [facility] [address] [place], [address] CBC W/Diff, Automatedon 09-0 Anisocytosis Ql (Bld) 2+ Normal [facility] Comment on above: Performed By: #### L 506.0200, L503.0106, L100.9950, L503.6030, L503.6550 #### [facility] [address] [place], [address] OVALOCYTE 1+ Normal [facility] Comment on above: Performed By: #### L 506.0200, L503.0106, L100.9950, L503.6030, L503.6550 #### [facility] [address] [place], [address] PLT EST SLT DEC Normal ADEQ [facility] Comment on above: Performed By: #### L 506.0200, L503.0106, L100.9950, L503.6030, L503.6550 #### [facility] [address] [place], [address] POLYCHROMASIA 1+ Normal [facility] Comment on above: Performed By: #### L 506.0200, L503.0106, L100.9950, L503.6030, L503.6550 #### [facility] [address] [place], [address] Calculated very low density lipoprotein (VLDL) cholesterol measurementOrdered By: Timoteo Cooper on 07-22-2025 Calculated very low density lipoprotein (VLDL) cholesterol measurement 21 mg/dL 5-40 [facility] Comprehensive Metabolic Prof ilon 07-22-2025 Albumin [Mass/Vol] 2.2 g/dL Low 3.5-5.0 [facility] Comment on above: Performed By: #### L 506.0200, L503.0106, L100.9950, L503.6030, L503.6550 #### [facility] [address] [place], [address] Albumin/Globulin [Mass ratio] 0.6 {ratio} Low 0.9-2.4 [facility] Comment on above: Performed By: #### L 506.0200, L503.0106, L100.9950, L503.6030, L503.6550 #### [facility] [address] [place], [address] ALK PHOS 131 U/L High 40-129 [facility] Comment on above: Performed By: #### L 506.0200, L503.0106, L100.9950, L503.6030, L503.6550 #### [facility] [address] [place], [address] ALT [Catalytic activity/Vol] 26 U/L Normal <=46 [facility] Comment on above: Performed By: #### L 506.0200, L503.0106, L100.9950, L503.6030, L503.6550 #### [facility] [address] [place], [address] AST [Catalytic activity/Vol] 36 U/L Normal <=37 [facility] Comment on above: Performed By: #### L 506.0200, L503.0106, L100.9950, L503.6030, L503.6550 #### [facility] [address] [place], [address] Bilirubin [Mass/Vol] 2.57 mg/dL High 0.00-1.30 [facility] Comment on above: Performed By: #### L 506.0200, L503.0106, L100.9950, L503.6030, L503.6550 #### [facility] [address] [place], [address] BUN/CRE 12.3 RATIO Normal 10-20 [facility] Comment on above: Performed By: #### L 506.0200, L503.0106, L100.9950, L503.6030, L503.6550 #### [facility] [address] [place], [address] Calcium [Mass/Vol] 7.7 mg/dL Normal 7.6-11.0 [facility] Comment on above: Performed By: #### L 506.0200, L503.0106, L100.9950, L503.6030, L503.6550 #### [facility] [address] [place], [address] Chloride [Moles/Vol] 100 mmol/L Normal 98-108 [facility] Comment on above: Performed By: #### L 506.0200, L503.0106, L100.9950, L503.6030, L503.6550 #### [facility] [address] [place], [address] CO2 [Moles/Vol] 22.4 mmol/L Normal 21.0-32.0 [facility] Comment on above: Performed By: #### L 506.0200, L503.0106, L100.9950, L503.6030, L503.6550 #### [facility] [address] [place], [address] Creatinine [Mass/Vol] 0.69 mg/dL Low 0.70-1.[address] [facility] Comment on above: Performed By: #### L 506.0200, L503.0106, L100.9950, L503.6030, L503.6550 #### [facility] [address] [place], [address] ECRCL 215.46 ml/min Normal 50-250 [facility] Comment on above: Performed By: #### L 506.0200, L503.0106, L100.9950, L503.6030, L503.6550 #### [facility] [address] [place], [address] GAP 7 Normal 5-15 [facility] Comment on above: Performed By: #### L 506.0200, L503.0106, L100.9950, L503.6030, L503.6550 #### [facility] [address] [place], [address] GFR/1.73 sq M.predicted among non-blacks MDRD (S/P/Bld) [Vol rate/Area] 115 mL/min/{1.73_m2} Normal >60 [facility] Comment on above: Result Comment: mL/m in/1.73m2 CKD-EPI Creatinine Equation (2020) Performed By: #### L 506.0200, L503.0106, L100.9950, L503.6030, L503.6550 #### [facility] [address] [place], [address] Globulin (S) [Mass/Vol] 3.8 g/dL Normal 2.2-4.2 [facility] Comment on above: Performed By: #### L 506.0200, L503.0106, L100.9950, L503.6030, L503.6550 #### [facility] [address] [place], [address] Glucose [Mass/Vol] 167 mg/dL High 70-99 [facility] Comment on above: Performed By: #### L 506.0200, L503.0106, L100.9950, L503.6030, L503.6550 #### [facility] [address] [place], [address] Potassium [Moles/Vol] 4.0 mmol/L Normal 3.3-5.[address] [facility] Comment on above: Performed By: #### L 506.0200, L503.0106, L100.9950, L503.6030, L503.6550 #### [facility] [address] [place], [address] Sodium [Moles/Vol] 130 mmol/L Low 133-145 [facility] Comment on above: Performed By: #### L 506.0200, L503.0106, L100.9950, L503.6030, L503.6550 #### [facility] [address] [place], [address] T PROT 6.0 g/dL Normal 5.9-8.4 [facility] Comment on above: Performed By: #### L 506.0200, L503.0106, L100.9950, L503.6030, L503.6550 #### [facility] [address] [place], [address] Urea nitrogen [Mass/Vol] 8 mg/dL Normal 4-19 [facility] Comment on above: Performed By: #### L 506.0200, L503.0106, L100.9950, L503.6030, L503.6550 #### [facility] [address] [place], [address] Echo Complete W/ Contraston 07-22-2025 Echo Complete W/ Contrast [facility] [address] [place] [address] Echo Complete W/ Contrast 07/22/25825 MR#: [id number] Acct: [id number] Name: LEON RIDER Rep #: [id number] : 1980 45 From: Rosalee Kirby MD Attending Dr: Dr. Timoteo Cooper MD Status: ADM IN Ordering Dr: Timoteo Cooper MD Date: 07/22/25 Location: [facility] Sex: M C Admitted: 07/21/25 Reason For [...] MD Date Dictated: 07/22/25825 Date Transcribed: 07/22/251044 Hotel Controller: Signed Normal [facility] Echocardiogram study reportO rdered By: Rosalee Kirby on 07-22-2025 Study report [facility] [address] [place] [address] Echo Complete W/ Contrast 07/22/25 0826 MR#: [id number] Acct: [id number] Name: LEON RIDER Rep #:[id number] : 1980 45 From: Rosalee Kirby MD Attending Dr: Dr. Timoteo Cooper MD Status: ADM IN Ordering Dr: Timoteo Cooper MD Date: 0 07/22/25 Location: [facility] Sex: M C Admitted: 07/21/25 Reason For [...] ~ Date Dictated: 07/22/25825 Date Transcribed: 07/22/251044 Hotel Controller: Signed [facility] Work Phone: Electrocardiogram reportOrde red By: Jocelyne Henley on 07-22-2025 EKG study [facility] [address] [place] [address] 12 Lead EKG 07/21/25 0941 MR#: [id number] Acct: [id number] Name: LEON RIDER Rep #:[id number] : 1980 45 From: Jocelyne cruz MD Attending Dr: Dr. Timoteo Cooper MD Status: ADM IN Ordering Dr: Denice Leal DO Date: 0 07/21/25 Location: [facility] Sex: M C Admitted: 07/21/25 Test Reason : GENERAL Blood Pressure : */* mmHG Vent. Rate : 101 BPM Atrial Rate : 101 BPM P-R Int : 162 ms QRS Dur : 82 ms QT Int : 370 ms P-R-T Axes : 71 4 82 degrees QTcB Int : 479 ms Sinus tachycardia Nonspecific T wave abnormality Abnormal ECG Confirmed by Jocelyne Henley ([id number]), subeditor CARLITOS MORGAN ([id number]) on 07/22/2025 9:49:19 AM Referred By: Confirmed By: Jocelyne Henley 07/22/25 0949 Date _ Jocelyne Henley MD CC: Dr. Alis Duran MD; Dr. Denice Leal DO; Dr. Timoteo Cooper MD ~ Signed [facility] Other Hemoglobin A1con 07-22-2025 HbA1c (Bld) [Mass fraction] 6.1 % High <=5.6 [facility] Comment on above: Result Comment: Norm al < 5.7 % Prediabetic 5.7 - 6.4 % Diabetic >or= 6.5 % Please note range changes. Performed By: #### L 506.0200, L503.0106, L100.9950, L503.6030, L503.6550 #### [facility] [address] [facility] [place], [address] Hemoglobin A1c percentageOrd ered By: Timoteo Cooper on 07-22-2025 HbA1c (Bld) [Mass fraction] 6.1 % High <5.7 [facility] Comment on above: Normal < 5.7 % Predi abetic 5.7 - 6.4 % Diabetic >or= 6.5 % Please note range changes. LDL calc ser/plasOrdered By: Timoteo Cooper on 07-22-2025 Cholesterol in LDL [Mass/Vol] 68 mg/dL [facility] Comment on above: Ameerljjwd=763-937 m g/dL & Higher Qswz=692 mg/dL or greaterFriedwald Equation for LDL-C Lipid Profileon 07-22-2025 CHOL:HDL 5.63 Normal [facility] Comment on above: Performed By: #### L 506.0200, L503.0106, L100.9950, L503.6030, L503.6550 #### [facility] [address] [place], [address] Cholesterol [Mass/Vol] 108 mg/dL Normal <=200 [facility] Comment on above: Result Comment: Chol esterol level, Desirable <200 mg/dL Borderline high cholesterol 200-239 mg/dL High cholesterol >=240 mg/dL Recommendations of the NCEP Adult Treatment Panel for the following risk-cutoff thresholds for the [place] population. Performed By: #### L 506.0200, L503.0106, L100.9950, L503.6030, L503.6550 #### [facility] [address] [place], [address] Cholesterol in HDL [Mass/Vol] 19 mg/dL Low [facility] Comment on above: Result Comment: Cristina onal Cholesterol Education Program (NCEP) guidelines: <40 mg/dL: Low HDL-cholesterol (major risk factor for CHD) >= 60 mg/dL: High HDL-cholesterol (negative risk factor for CHD) HDL-cholesterol is affected by a number of factors, e.g. smoking, exercise, hormones, sex and age. Performed By: #### L 506.0200, L503.0106, L100.9950, L503.6030, L503.6550 #### [facility] [address] [place], [address] Cholesterol in LDL [Mass/Vol] 68 mg/dL Normal [facility] Comment on above: Result Comment: Bord wermrb=090-156 mg/dL Higher Bwlc=886 mg/dL or greater Friedwald Equation for LDL-C Performed By: #### L 506.0200, L503.0106, L100.9950, L503.6030, L503.6550 #### [facility] [address] [place], [address] Cholesterol in VLDL [Mass/Vol] 21 mg/dL Normal 5-40 [facility] Comment on above: Performed By: #### L 506.0200, L503.0106, L100.9950, L503.6030, L503.6550 #### [facility] [address] [place], [place], [id number] (443) Triglyceride [Mass/Vol] 105 mg/dL Normal [facility] Comment on above: Result Comment: The drugs N-Acetylcysteine and Metamizole may falsely depress this assay. Normal range: <150 mg/dL Borderline High: 150-199 mg/dL High: 200-499 mg/dL Very High: >500 mg/dL Performed By: #### L 506.0200, L503.0106, L100.9950, L503.6030, L503.6550 #### [facility] [address] [facility] [place], [place], [id number] (153) Screening total cholesterol/ high density lipoprotein (HDL) cholesterol ratioOrdered By: Timoteo Cooper on 07-22-2025 Cholesterol.total/[place] sterol in HDL [Mass ratio] 5.63 {ratio} [facility] Serum or plasma cholesterol in HDL measurement (mass/volume)Ordered By: Timoteo Cooper on 07-22-2025 Cholesterol in HDL [Mass/Vol] 19 mg/dL Low >40 [facility] Comment on above: National Cholesterol Education Program (NCEP) guidelines:<40 mg/dL: Low HDL-cholesterol (major risk factor for CHD)>= 60 mg/dL: High HDL-cholesterol (negative risk factor for CHD)HDL-cholesterol is affected by a number of factors, e.g. smoking, exercise, hormones, sex and age. Serum or plasma cholesterol measurement (mass/volume)Ordered By: Timoteo Cooper on 07-22-2025 Cholesterol [Mass/Vol] 108 mg/dL <201 [facility] Comment on above: Cholesterol level, D esirable <200 mg/dLBorderline high cholesterol 200-239 mg/dLHigh cholesterol >=240 mg/dLRecommendations of the NCEP Adult Treatment Panel for the following risk-cutoff thresholds for the [place] population. TSH DL <= 0.005 mIU/L QnOrde red By: Timoteo Cooper on 07-22-2025 TSH Qn 1.380 uIU/mL 0.300-4.20 0 [facility] Thyroid Stim Hormone (TSH)on 07-22-2025 TSH 1.380 uIU/mL Normal 0.300-4.20 0 [facility] Comment on above: Performed By: #### L 506.0200, L503.0106, L100.9950, L503.6030, L503.6550 #### [facility] [address] [facility] [place], [address] Triglycerides measurementOrd ered By: Timoteo Cooper on 07-22-2025 Triglyceride [Mass/Vol] 105 mg/dL <199 [facility] Comment on above: The drugs N-Acetylcy steine and Metamizole may falsely depress this assay. Normal range: <150 mg/dLBorderline High: 150-199 mg/dLHigh: 200-499 mg/dLVery High: >500 mg/dL 12 Lead EKGon 07-21-2025 12 Lead EKG [facility] Cardi[facility] Services [address] [place] [address] 12 Lead EKG 07/21/25 0941 MR#: [id number] Acct: [id number] Name: LEON RIDER Rep #: [id number] : 1980 45 From: Jocelyne Henley MD Attending Dr: Dr. Timoteo Cooper MD Status: ADM IN Ordering Dr: Denice Leal DO Date: 07/21/25 Location: [facility] Sex: M C Admitted: 07/21/25 Test Reason : GENERAL Blood Pressure : */* mmHG Vent. Rate : 101 BPM Atrial Rate : 101 BPM P-R Int : 162 ms QRS Dur : 82 ms QT Int : 370 ms P-R-T Axes : 71 4 82 degrees QTcB Int : 479 ms Sinus tachycardia Nonspecific T wave abnormality Abnormal ECG Confirmed by Jocelyne Henley ([id number]), subeditor CARLITOS MORGAN ([id number]) on 07/22/2025 9:49:19 AM Referred By: Confirmed By: Jocelyne Henley 07/22/2549 Date Jocelyne Henley MD CC: Dr. Alis Duran MD; Dr. Denice Leal DO; Dr. Timoteo Cooper MD Signed Normal [facility] Absolute lymphocyte countOrd ered By: Denice Leal on 07-21-2025 Lymphocytes Auto (Unsp spec) [#/Vol] 0.97 10*3/uL 0.83-4.51 [facility] Absolute neutrophil countOrd ered By: Denice Leal on 07-21-2025 Neutrophils (Bld) [#/Vol] 6.6 10*3/uL 2.0-7.7 [facility] Activated partial thrombopla stin time (aPTT) in platelet poor plasma by coagulation aOrdered By: Denice Leal on 07-21-2025 aPTT Coag (PPP) [Time] 39.4 s High 24.1-36.2 [facility] Anion gap in Serum or Plasma Ordered By: Denice Leal on 07-21-2025 Anion gap [Moles/Vol] 12 mmol/L 5-[address] [facility] Automated lymphocyte count a s percentage of total leukocytesOrdered By: Denice Leal on 07-21-2025 Lymphocytes/100 WBC Auto (Unsp spec) 10.4 % Low 19-41 [facility] BUN/creatinine ratioOrdered By: Denice Leal on 07-21-2025 Urea nitrogen/Creatinine [Mass ratio] 12.9 mg/mg 10-20 [facility] Basophil percentageOrdered B y: Denice Leal on 07-21-2025 Basophils/100 WBC (Bld) 0.5 % 0-1 [facility] Bedside Glucoseon 07-21-2025 FINGERSTICK GLU 165 mg/dL High 74-106 [facility] Comment on above: Result Comment: PADDY GEMENT OF PATIENT CARE PER NURSING PROTOCOL Performed By: #### L 506.0200, L503.0106, L100.9950, L503.6030, L503.6550 #### [facility] [address] [place], [address] FINGERSTICK GLU 213 mg/dL High 74-106 [facility] Comment on above: Result Comment: PADDY GEMENT OF PATIENT CARE PER NURSING PROTOCOL Performed By: #### L 500.4050, L100.0100 #### [facility] [address] [place], [address] Bilirubin Test strip Ql (U)O rdered By: Denice Leal on 07-21-2025 Bilirubin Ql (U) 1 mg/dL High Negative [facility] Comment on above: COLOR OF URINE MAY A FFECT DIPSTICK RESULTS. Bilirubin directOrdered By: Timoteo Cooper on 07-21-2025 Bilirubin.direct [Mass/Vol] 1.79 mg/dL High 0.00-0.30 [facility] Bilirubin, Directon 07-21-20 25 Bilirubin.direct [Mass/Vol] 1.79 mg/dL High 0.00-0.30 [facility] Comment on above: Performed By: #### L 506.0200, L503.0106, L100.9950, L503.6030, L503.6550 #### [facility] [address] [place], [address] Bilirubin, totalOrdered By: Denice Leal on 07-21-2025 Bilirubin [Mass/Vol] 3.82 mg/dL High 0.00-1.30 [facility] Blood cultureOrdered By: Hilaria Leal on 07-21-2025 Bacteria identified Cx Nom (Bld) No growth in 5 days. [facility] Blood manual differential co mment interpretation (narrative result)Ordered By: Denice Leal on 09-07-2025 Manual differential comment Hans (Bld) [Interp] SCANNED [facility] Blood polychromasia detectio n by light microscopyOrdered By: Denice Leal on 07-21-2025 Polychromasia LM Ql (Bld) 1+ [facility] CBC W/Diff, Automatedon MICROCYTIC 1+ Normal [facility] Comment on above: Performed By: #### L 499.0043 #### [facility] [address] [place], [address] POLYCHROMASIA 1+ Normal [facility] Comment on above: Performed By: #### L 499.0043 #### [facility] [address] [place], [address] Anisocytosis Ql (Bld) 2+ Normal [facility] Comment on above: Performed By: #### L 499.0043 #### [facility] [address] [place], [address] TARGET CELLS 1+ Normal [facility] Comment on above: Performed By: #### L 499.0043 #### [facility] [address] [place], [address] SMEAR COMMENT SCANNED Normal [facility] Comment on above: Performed By: #### L 499.0043 #### [facility] [address] [place], [address] CTA Chest W/WO Contraston CTA Chest W/WO Contrast [facility] Imaging Services [address] [place] [address] CTA Chest W/WO Contrast MR#: [id number] Acct: [id number] Name: LEON RIDER Rep #: [id number] : 1980 M 45 From: Jocelyne Salinas MD PCP: Dr. Alis Duran MD Status: REG ER Study: CTA Chest W/WO Contrast Date of Exam: 07/21/25 Exam# [id number] Ordering Dr: Godman,Denice DO PROCEDURE: CTA CHEST [...] edema. Mild mediastinal adenopathy. Cirrhosis. Reading Location: [id number] CC: Dr. Alis Duran MD; Dr. Denice Leal DO Hotel Controller: Signed Normal [facility] Carbon dioxide, total [Moles /volume] in Central venous bloodOrdered By: Denice Leal on 07-21-2025 CO2 [Moles/Vol] 17.8 mmol/L Low 21.0-32.0 [facility] Chloride assayOrdered By: Fransico Leal on 07-21-2025 Chloride [Moles/Vol] 97 mmol/L Low 98-108 [facility] Comprehensive Metabolic Prof ilon 07-21-2025 Albumin [Mass/Vol] 2.5 g/dL Low 3.5-5.0 [facility] Comment on above: Performed By: #### L 499.0043 #### [facility] [address] [place], [address] Albumin/Globulin [Mass ratio] 0.6 {ratio} Low 0.9-2.4 [facility] Comment on above: Performed By: #### L 499.0043 #### [facility] [address] [place], [address] ALK PHOS 109 U/L Normal 40-129 [facility] Comment on above: Performed By: #### L 499.0043 #### [facility] [address] [place], [address] ALT [Catalytic activity/Vol] 33 U/L Normal <=46 [facility] Comment on above: Performed By: #### L 499.0043 #### [facility] [address] [place], [address] AST [Catalytic activity/Vol] 42 U/L High <=37 [facility] Comment on above: Performed By: #### L 499.0043 #### [facility] [address] [place], [address] Bilirubin [Mass/Vol] 3.82 mg/dL High 0.00-1.30 [facility] Comment on above: Performed By: #### L 499.0043 #### [facility] [address] [place], [address] BUN/CRE 12.9 RATIO Normal 10-20 [facility] Comment on above: Performed By: #### L 499.0043 #### [facility] [address] [place], [address] Calcium [Mass/Vol] 8.1 mg/dL Normal 7.6-11.0 [facility] Comment on above: Performed By: #### L 499.0043 #### [facility] [address] [place], [address] Chloride [Moles/Vol] 97 mmol/L Low 98-108 [facility] Comment on above: Performed By: #### L 499.0043 #### [facility] [address] [place], [address] CO2 [Moles/Vol] 17.8 mmol/L Low 21.0-32.0 [facility] Comment on above: Performed By: #### L 499.0043 #### [facility] [address] [place], [address] Creatinine [Mass/Vol] 0.66 mg/dL Low 0.70-1.[address] [facility] Comment on above: Performed By: #### L 499.0043 #### [facility] [address] [place], [address] GAP 12 Normal 5-15 [facility] Comment on above: Performed By: #### L 499.0043 #### [facility] [address] [place], [address] GFR/1.73 sq M.predicted among non-blacks MDRD (S/P/Bld) [Vol rate/Area] 117 mL/min/{1.73_m2} Normal >60 [facility] Comment on above: Result Comment: mL/m in/1.73m2 CKD-EPI Creatinine Equation (2020) Performed By: #### L 499.0043 #### [facility] [address] [place], [address] Globulin (S) [Mass/Vol] 4.1 g/dL Normal 2.2-4.2 [facility] Comment on above: Performed By: #### L 499.0043 #### [facility] [address] [place], [address] Glucose [Mass/Vol] 168 mg/dL High 70-99 [facility] Comment on above: Performed By: #### L 499.0043 #### [facility] [address] [place], [address] Potassium [Moles/Vol] 3.7 mmol/L Normal 3.3-5.[address] [facility] Comment on above: Performed By: #### L 499.0043 #### [facility] [address] [place], [address] Sodium [Moles/Vol] 127 mmol/L Low 133-145 [facility] Comment on above: Performed By: #### L 499.0043 #### [facility] [address] [place], [address] T PROT 6.6 g/dL Normal 5.9-8.4 [facility] Comment on above: Performed By: #### L 499.0043 #### [facility] [address] [place], [address] Urea nitrogen [Mass/Vol] 8 mg/dL Normal 4-19 [facility] Comment on above: Performed By: #### L 499.0043 #### [facility] [address] [place], [address] Emergency Department Summary on 07-21-2025 Emergency Department Summary [facility] Medical Records Department [address] [place] [address] Emergency Department Summary 07/21/25 MR#: [id number] Acct: [id number] Name: LEON RIDER Rep #: [id number] : 1980 45 From: Denice Leal DO PCP: Dr. Alis Duran MD Status:ADM IN Location: [address] History of Present Illness Chief Complaint: [...] couple minutes. He was working at the [email or web address] at that time. He returned that evening [...] other complaints or concerns reported this time [facility] Medical History HTN (hypertension) Diabetes Acid [...] 09:08 Surgical History H/O umbilical hernia repair [place] teeth extracted Social History (Updated 07/21/25 @ [...] Mildly ill-appearing (more content not included)... Normal [facility] Eosinophil percentageOrdered By: Denice Leal on 07-21-2025 Eosinophils/100 WBC (Bld) 2.3 % 0-5 [facility] Erythrocyte distribution wid th ratioOrdered By: Denice Leal on 07-21-2025 Erythrocyte distribution width (RBC) [Ratio] 22.6 % High 11.6-14.6 [facility] Erythrocyte distribution wid th standard deviationOrdered By: Denice Leal on 07-21-2025 Erythrocyte distribution width (RBC) [Ratio] 63.7 fl High 35.1-43.9 [facility] Glomerular filtration rate ( GFR) estimation/1.73 sq m using serum, plasma, or whole bOrdered By: Denice Leal on 07-21-2025 GFR/1.73 sq M.predicted among non-blacks MDRD (S/P/Bld) [Vol rate/Area] 117 mL/min/{1.73_m2} >60 [facility] Comment on above: mL/min/1.73m2 CKD-EP I Creatinine Equation (2020) H AND P Exam - [facility] 07-21-2025 H&P Exam - Hospitalist [facility] Medical Records Department [address] [place] [address] H P Exam - Hospitalist 07/21/25 1150 MR#: [id number] Acct: [id number] Name: LEON RIDER Rep #: [id number] : 1980 45 From: Timoteo Cooper MD PCP: Dr. Alis Duran MD Status:ADM IN Location: [place] [address] HPI - General General Date of Admission: [...] to 10 years ago. 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 [facility] Medical History HTN (hypertension) Diabetes Acid reflux Rectal bleeding Hemorrhoids Home Medications ???Medication ???Instructions ???Recorded ???Last Taken ???Type Diltiazem 10mg/Lidocaine 50mg See Rx Instructions [place] .BID #30 Unknown Rx Suppository 30 supp [...] 09:08 Surgical History H/O umbilical hernia repair [place] teeth extracted Social History household members: spouse [...] Mild crepitat (more content not included)... Normal [facility] Hematocrit Auto (Bld) [Volum e fraction]Ordered By: Denice Leal on 07-21-2025 Hematocrit (Bld) [Volume fraction] 26.8 % Low 40-54 [facility] Hemoglobin measurementOrdere d By: Denice Leal on 07-21-2025 Hemoglobin (Bld) [Mass/Vol] 8.8 g/dL Low 13.0-16.5 [facility] Immature granulocytes/100 WB C Auto (Bld)Ordered By: Denice Leal on 07-21-2025 Immature granulocytes/100 WBC (Bld) 0.600 % 0.0-0.9 [facility] Comment on above: IG% - Immature Granu locytes (promyelocytes, myelocytes and metamyelocytes) > 1% indicates that a LEFT SHIFT is Present. Influenza virus A and B and SARS-CoV-2 (COVID-19) and Respiratory syncytial virus RNAOrdered By: Denice Leal on 07-21-2025 SARS-CoV-2 (COVID-19) RNA CHARLIE+probe Ql (Unsp spec) [facility] International normalized rat io (INR) calculationOrdered By: Denice Leal on 07-21-2025 INR Coag (Bld) [Relative time] 1.7 {INR} [facility] Ketones Test strip Ql (U)Ord ered By: Denice Leal on 07-21-2025 Ketones Ql (U) Negative Negative [facility] L501.4021on 07-21-2025 Trop T High Sen 8 ng/L Normal <=22 [facility] Comment on above: Performed By: #### L 500.4050, L100.0100 #### [facility] [address] [place], [address] Laboratory - Chemistry and C hemistry - challengeOrdered By: Denice Leal on 07-21-2025 AST [Catalytic activity/Vol] 42 U/L High <38 [facility] - Hematology and Cell countsOrdered By: Denice Leal on 07-21-2025 Anisocytosis Ql (Bld) 2+ [facility] Lactic Acidon 07-21-2025 Lactate [Moles/Vol] 2.5 mmol/L Invalid Interpretation Code 0.0-2.0 [facility] Comment on above: Result Comment: Crit ical Result(s) Called at: 1515 by: CARROL GUPTA TO GIA MELLO??Results read back by same. Performed By: #### L 501.080 #### [facility] [address] [place], [address] Lactate [Moles/Vol] 3.2 mmol/L Invalid Interpretation Code 0.0-2.0 [facility] Comment on above: Order Comment: Y Result Comment: Crit ical Result(s) Called NJOHNSON at: 1019 by: LATASHA??Results read back by same. Performed By: #### L 499.0043 #### [facility] [address] [place], [place], [address] Lactic acid measurementOrder ed By: Denice Leal on 07-21-2025 Lactate [Moles/Vol] 2.5 mmol/L Critically high 0.0-2.0 [facility] Comment on above: Critical Result(s) C alled at: 1515 by: CARROL MELLO Results read back by same. Lactate [Moles/Vol] 3.2 mmol/L High 0.0-2.0 [facility] Comment on above: Critical Result(s) C alled CHELSDALEJANDRO at: 1019 by: LATASHA Results read back by same. M100.678on 07-21-2025 M100.678 Normal Reference Ran ge = Negative [employer], PCR method SARS-CoV-2 (COVID 19) Negative INFLUENZA A Negative INFLUENZA B Negative RSV PCR Negative Normal [facility] Comment on above: Performed By: #### L 501.080 #### [facility] [address] [place], [place], [address] MCV (mean corpuscular volume ) determinationOrdered By: Denice Leal on 07-21-2025 MCV (RBC) [Entitic vol] 80.0 fL 80-94 [facility] Magnesiumon 07-21-2025 Magnesium [Mass/Vol] 1.8 mg/dL Normal 1.5-2.2 [facility] Comment on above: Performed By: #### L 506.0200, L503.0106, L100.9950, L503.6030, L503.6550 #### [facility] [address] [place], [place], [address] Mean corpuscular hemoglobin (MCH) determinationOrdered By: Denice Leal on 07-21-2025 MCH (RBC) [Entitic mass] 26.3 pg Low 27.0-32.0 [facility] Mean corpuscular hemoglobin concentration (MCHC) determinationOrdered By: Denice Leal on 07-21-2025 MCHC (RBC) [Mass/Vol] 32.8 g/dL 32-[address] [facility] Mean platelet volume determi nationOrdered By: Denice Leal on 07-21-2025 Platelet mean volume (Bld) [Entitic vol] 10.3 fL 6.2-12.0 [facility] Microscopic analysis of urin e for red blood cells (RBC)Ordered By: Denice Leal on 07-21-2025 Microscopic analysis of urine for red blood cells (RBC) 0 SEEN /hpf 0-5 [facility] Monocyte percentageOrdered B y: Denice Leal on 07-21-2025 Monocytes/100 WBC (Bld) 15.8 % High 0-10 [facility] Mucus LM Ql (Urine sed)Order ed By: Denice Leal on 07-21-2025 Mucus Ql (Urine sed) 0 SEEN /hpf [facility] Natriuretic peptide.B prohor reji N-Terminal [Mass/volume] in Serum or PlasmaOrdered By: Denice Leal on 07-21-2025 Natriuretic peptide.B prohormone N-Terminal [Mass/Vol] 106 pg/mL <450 [facility] Comment on above: Heart Failure Unlike ly: < 300 pg/mLHeart Failure Likely< 50 Years: > 450 pg/mL50-75 Years: > 900 pg/mL>75 Years: > 1800 pg/mL Neutrophil percentageOrdered By: Denice Leal on 07-21-2025 Neutrophils/100 WBC (Bld) 70.4 % High 47-70 [facility] Nitrite Test strip Ql (U)Ord ered By: Denice Leal on 07-21-2025 Nitrite Ql (U) Negative Negative [facility] Nucleated red blood cell per centageOrdered By: Denice Leal on 07-21-2025 Nucleated RBC/100 WBC (Bld) [Ratio] 0 % 0-5 [facility] Partial Thromboplast Timeon 07-21-2025 aPTT Coag (Bld) [Time] 39.4 s High 24.1-36.2 [facility] Comment on above: Performed By: #### L 499.0043 #### [facility] [address] [place], [place], [address] Platelet countOrdered By: Fransico Leal on 07-21-2025 Platelets (Bld) [#/Vol] 112 10*3/uL Low 150-450 [facility] Potassium measurement (mass/ volume)Ordered By: Denice Leal on 07-21-2025 Potassium (Unsp spec) [Mass/Vol] 3.7 mmol/L 3.3-5.1 [facility] Pro- Brain NATRIURETIC PEPTI Chaparro 07-21-2025 Natriuretic peptide B (Bld) [Mass/Vol] 106 pg/mL Normal <=450 [facility] Comment on above: Result Comment: Hear t Failure Unlikely: < 300 pg/mL Heart Failure Likely < 50 Years: > 450 pg/mL 50-75 Years: > 900 pg/mL >75 Years: > 1800 pg/mL Performed By: #### L 499.0043 #### [facility] [address] [place], [place], [address] Protein Test strip Ql (U)Ord ered By: Denice Leal on 07-21-2025 Protein Ql (U) 30 mg/dl High Negative [facility] Prothrombin Time w/INRon INR Coag (PPP) [Relative time] 1.7 {INR} Normal [facility] Comment on above: Performed By: #### L 499.0043 #### [facility] [address] [place], [address] PT Coag (PPP) [Time] 20.3 s High 11.7-14.9 [facility] Comment on above: Performed By: #### L 499.0043 #### [facility] [address] [place], [place], [address] Prothrombin timeOrdered By: Denice Leal on 07-21-2025 PT Coag (PPP) [Time] 20.3 s High 11.7-14.9 [facility] RBC Auto (Bld) [#/Vol]Ordere d By: Denice Leal on 07-21-2025 RBC (Bld) [#/Vol] 3.35 10*6/uL Low 4.6-6.2 [facility] Serum creatinine measurement (mass/volume)Ordered By: Denice Leal on 07-21-2025 Creatinine [Mass/Vol] 0.66 mg/dL Low 0.70-1.[address] [facility] Serum globulin measurementOr dered By: Denice Leal on 07-21-2025 Globulin (S) [Mass/Vol] 4.1 g/dL 2.2-4.2 [facility] Serum glucose measurement (m ass/volume)Ordered By: Denice Leal on 07-21-2025 Glucose [Mass/Vol] 168 mg/dL High 70-99 [facility] Serum or plasma alanine reyes otransferase (ALT) measurementOrdered By: Denice Leal on 07-21-2025 ALT [Catalytic activity/Vol] 33 U/L <47 [facility] Serum or plasma albumin wilfred urement (mass/volume)Ordered By: Denice Leal on 07-21-2025 Albumin [Mass/Vol] 2.5 g/dL Low 3.5-5.0 [facility] Serum or plasma albumin/glob ulin mass ratioOrdered By: Denice Leal on 07-21-2025 Albumin/Globulin [Mass ratio] 0.6 {ratio} Low 0.9-2.4 [facility] Serum or plasma alkaline roge sphatase measurementOrdered By: Denice Leal on 07-21-2025 ALP [Catalytic activity/Vol] 109 U/L 40-129 [facility] Serum or plasma calcium wilfred urement (mass/volume)Ordered By: Denice Leal on 07-21-2025 Calcium [Mass/Vol] 8.1 mg/dL 7.6-11.0 [facility] Serum or plasma urea nitroge n measurement (mass/volume)Ordered By: Denice Leal on 07-21-2025 Urea nitrogen [Mass/Vol] 8 mg/dL 4-19 [facility] Sodium levelOrdered By: Paula Leal on 07-21-2025 Sodium [Moles/Vol] 127 mmol/L Low 133-145 [facility] Squamous epithelial cells de tection in urine sediment by light microscopyOrdered By: Denice Leal on 07-21-2025 Epithelial cells.squamous LM Ql (Urine sed) 0 SEEN /hpf 0-5 [facility] Stool Occult Blood iFOBon STOB Normal Reference Ran ge = Negative Immunochemical Fecal Occult Blood (iFOBT) method. Hemoccult Stl Ql IA Limitation: Menstrual bleeding, constipation bleeding, bleeding hemorrhoids, and urinary bleeding conditions may interfere with test. Occult Blood Negative Normal [facility] Comment on above: Performed By: #### L 500.4050, L100.0100 #### [facility] [address] [place], [address] Stool gastrointestinal hemog lobin detection by immunologic methodOrdered By: Denice Leal on 07-21-2025 Lower GI hemoglobin IA Ql (Stl) [facility] TSH DL <= 0.005 mIU/L QnOrde red By: Denice Leal on 07-21-2025 TSH Qn 1.550 uIU/mL 0.300-4.20 0 [facility] Target cell detectionOrdered By: Denice Leal on 07-21-2025 Target cells LM Ql (Bld) 1+ [facility] Thyroid Stim Hormone (TSH)on 07-21-2025 TSH 1.550 uIU/mL Normal 0.300-4.20 0 [facility] Comment on above: Performed By: #### L 499.0043 #### [facility] [address] [place], [place], [address] Total proteinOrdered By: Hilaria Leal on 07-21-2025 Protein [Mass/Vol] 6.6 g/dL 5.9-8.4 [facility] Troponin T HS 2 HRon 025 Trop T High Sen 7 ng/L Normal <=22 [facility] Comment on above: Performed By: #### L 506.0200, L503.0106, L100.9950, L503.6030, L503.6550 #### [facility] [address] [place], [address] Troponin T HS 4 HRon 025 Trop T High Sen 7 ng/L Normal <=22 [facility] Comment on above: Performed By: #### L 499.0043 #### [facility] [address] [place], [address] Troponin T.cardiac [Mass/vol ume] in Serum or Plasma by High sensitivity methodOrdered By: Denice Leal on 07-21-2025 Troponin T.cardiac High sensitivity method [Mass/Vol] 7 ng/L <22 [facility] Troponin T.cardiac High sensitivity method [Mass/Vol] 7 ng/L <22 [facility] Troponin T.cardiac High sensitivity method [Mass/Vol] 8 ng/L <22 [facility] Type AND Screenon 07-21-2025 Ab SCREEN GEL Negative Normal [facility] Comment on above: Order Comment: A Performed By: #### L 500.4050, L100.0100 #### [facility] [address] [place], [address] Urinalysis, Completeon 07-21 BACTERIA 0 SEEN Normal None Seen [facility] Comment on above: Order Comment: CLEAN CATCH Performed By: #### L 501.080 #### [facility] [address] [place], [address] EPI,SQUAMOUS 0 SEEN Normal 0-5 [facility] Comment on above: Order Comment: CLEAN CATCH Performed By: #### L 501.080 #### [facility] [address] [place], [address] Mucus Ql (Urine sed) 0 SEEN Normal [facility] Comment on above: Order Comment: CLEAN CATCH Performed By: #### L 501.080 #### [facility] [address] [place], [address] RBC 0 SEEN Normal 0-5 [facility] Comment on above: Order Comment: CLEAN CATCH Performed By: #### L 501.080 #### [facility] [address] [place], [place], [address] WBC 0 SEEN Normal 0-5 [facility] Comment on above: Order Comment: CLEAN CATCH Performed By: #### L 501.080 #### [facility] [address] [place], [place], [address] Urine clarityOrdered By: Hilaria Leal on 07-21-2025 Clarity (U) Clear Clear [facility] Urine color determinationOrd ered By: Denice Leal on 07-21-2025 Color (U) Yellow Yellow [facility] Urine cultureOrdered By: Hilaria Leal on 07-21-2025 Bacteria identified Cx Nom (U) Streptococcus agalactiae (B) Abnormal [facility] Bacteria identified Cx Nom (U) Positive Abnormal [facility] Urine glucose detectionOrder ed By: Denice Leal on 07-21-2025 Glucose Ql (U) Normal mg/dl Normal [facility] Urine leukocyte esterase det ection by dipstickOrdered By: Denice Leal on 07-21-2025 Leukocyte esterase Test strip Ql (U) Negative Negative [facility] Urine pHOrdered By: Denice samano on 07-21-2025 pH (U) 6.5 [pH] 5.0 - 8.0 [facility] Urine sediment bacteria coun t by microscopy (number/high power field)Ordered By: Denice Leal on 07-21-2025 Bacteria LM.HPF (Urine sed) [#/Area] 0 /[HPF] None Seen [facility] Urine specific gravity measu rementOrdered By: Denice Leal on 07-21-2025 Specific gravity (U) [Rel density] 1.010 1.002-1.03 0 [facility] Urine urobilinogen measureme ntOrdered By: Denice Leal on 07-21-2025 Urobilinogen Ql (U) 4 mg/dl High Normal [facility] White blood cell (WBC) count Ordered By: Denice Leal on 07-21-2025 WBC (Bld) [#/Vol] 9.3 10*3/uL 4.4-11.0 [facility] White blood cell countOrdere d By: Denice Leal on 07-21-2025 White blood cell count 0 SEEN /hpf 0-5 [facility] D-Dimer Quantitative (DVT/PE )on 07-19-2025 D-DIMER QUANT 2.09 FEU/ug/m Invalid Interpretation Code 0.27-0.49 [facility] Comment on above: Result Comment: D-Di huber ELEVATED (>0.49): Additional studies and clinical assessments are indicated to conclude diagnosis of: Deep Vein Thrombosis (DVT) or Pulmonary Embolism (PE) CRITICAL VALUE CALLED TO NOLAN GILES 07/19/25 1632 Apolonia Bearden. RESULTS READ BACK BY SAME. Performed By: #### L 499.0043 #### [facility] [address] [facility] [place], [address] Venous Duplex US, Unilateral on 07-19-2025 Venous Duplex US, Unilateral [facility] [address] [facility] [place] [address] Venous Duplex US, Unilateral 07/19/25 1358 MR#: [id number] Acct: [id number] Name: LEON RIDER Rep #: [id number] : 1980 45 From: Kalia Mcmahan MD Attending Dr: Yusef Mccoy NP INSPECTOR FILTER TIP-C Status: RE G CLI Ordering Dr: Yusef Mccoy NP [employer]PECT[employer]-C Date: 07/19/25 Location: [facility] Sex: M C [...] MD Date Dictated: 07/19/251357 Date Transcribed: 07/19/252238 Hotel Controller: Signed Normal [facility] Venous duplex ultrasound rep ortOrdered By: Kalia Mcmahan on 07-19-2025 US Vein [facility] [address] [place] [address] Venous Duplex US, Unilateral 07/19/25 1358 MR#: [id number] Acct: [id number] Name: LEON RIDER Rep #:[id number] : 1980 45 From: Kalia Mcmahan MD Attending Dr: Yusef Mccoy NP INSPECTOR FIL[employer] TIP-C Status: REG CLI Ordering Dr: Yusef Mccoy [...] Date Dictated: 07/19/25 1358 Date Transcribed: 07/19/252238 Hotel Controller: Signed [facility] Other Potassiumon 04-29-2025 Potassium [Moles/Vol] 4.1 mmol/L Normal 3.3-5.[address] [facility] Comment on above: Order Comment: Order Date: 04/29/25Order Info: 2823-3 - K Performed By: #### L 499.0043 #### [facility] [place], [address] Potassium measurement (mass/ volume)Ordered By: Alis Duran on 04-29-2025 Potassium (Unsp spec) [Mass/Vol] 4.1 mmol/L 3.3-5.1 [facility] Surgery Visit Reporton 01-28 Surgery Visit Report [facility] [address] [place] [address] OFFICE VISIT Date of Service: 01/28/25 MR#: [id number] Acct: [id number] Name: LEON RIDER Rep #: [id number] : 1980 Provider: Dr. Lorie lim MD Age/Sex: 44/M Location: [facility] Status: Signed Intake Vital Signs 01/28/25 [...] QDAY 01/28/25 01/28/25 H istory tablet (Januvia) [facility] Medical History (Updated 01/30/25 @ 12:[address] Lorie Willson MD) HTN (hypertension) Diabetes Acid reflux Rectal bleeding Hemorrhoids Surgical History (Updated 01/28/25 @ 14:44 by Erma Spaulding LPN) H/O umbilical hernia repair [place] teeth extracted Social History (Updated 01/28/25 @ [...] did have a colonoscopy in 2021 in [facility] he may have had polyps at that time. Patient states he has bowel movements daily denies constipation. Does admit to staying on the toilet for prolonged periods of time. Patient did get zftr-hls-[id number] treatment for hemorrhoids/fissures??? Dr. De Santiago's which [...] prolonged times (more content not included)... Normal [facility] BASIC METABOLIC PANELon 05-0 Anion gap [Moles/Vol] 7 mmol/L Normal 5-15 [facility] Comment on above: Order Comment: Locat ion: Performed By: #### L AB129, FEB792, EXS991, LAB15, LAB18, LAB20 #### LEON SLOAN ([id number]) [facility] ([facility]) [address] [place] [address] B/C RATIO 10.0 Normal 10.0-28.6 [facility] Comment on above: Order Comment: Locat ion: Performed By: #### L AB129, MLO104, QKZ716, LAB15, LAB18, LAB20 #### LEON SLOAN ([id number]) [facility] ([facility]) [address] [address] Calcium [Mass/Vol] 7.9 mg/dL Low 8.7-10.4 [facility] Comment on above: Order Comment: Locat ion: Performed By: #### L AB129, TWK224, VEF309, LAB15, LAB18, LAB20 #### LEON SLOAN ([id number]) [facility] ([facility]) [address] [address] Chloride [Moles/Vol] 106 mmol/L Normal 98-107 [facility] Comment on above: Order Comment: Locat ion: Performed By: #### L AB129, YVM147, POC237, LAB15, LAB18, LAB20 #### LEON SLOAN ([id number]) [facility] ([facility]) [address] [address] CO2 [Moles/Vol] 27 mmol/L Normal 20-31 [facility] Comment on above: Order Comment: Locat ion: Performed By: #### L AB129, VLR987, UGR868, LAB15, LAB18, LAB20 #### LEON SLOAN ([id number]) [facility] ([facility]) [address] [address] Creatinine [Mass/Vol] 0.6 mg/dL Low 0.7-1.3 [facility] Comment on above: Order Comment: Locat ion: Performed By: #### L AB129, PFH204, MBT557, LAB15, LAB18, LAB20 #### LEON SLOAN ([id number]) [facility] ([facility]) [address] [address] GFR 121.3 mL/min/1.73m*2 Normal >=60.0 [facility] Comment on above: Order Comment: Locat ion: Performed By: #### L AB129, PUQ609, QFV191, LAB15, LAB18, LAB20 ###Tom SLOAN ([id number]) [facility] ([facility]) [address] [address] Glucose [Mass/Vol] 136 mg/dL High 74-106 [facility] Comment on above: Order Comment: Locat ion: Performed By: #### L AB129, RRX279, HUR499, LAB15, LAB18, LAB20 #### LEON SLOAN ([id number]) [facility] ([facility]) [address] [address] Potassium [Moles/Vol] 3.6 mmol/L Normal 3.5-5.1 [facility] Comment on above: Order Comment: Locat ion: Performed By: #### L AB129, QVL666, XIO676, LAB15, LAB18, LAB20 #### LEON SLOAN ([id number]) [facility] ([facility]) 400 [facility] [address] [place] [address] Sodium [Moles/Vol] 140 mmol/L Normal 136-145 [facility] Comment on above: Order Comment: Locat ion: Performed By: #### L AB129, KSX335, RKU630, LAB15, LAB18, LAB20 #### LEON SLOAN ([id number]) [facility] ([facility]) [address] [address] Urea nitrogen [Mass/Vol] 6 mg/dL Low 9-23 [facility] Comment on above: Order Comment: Locat ion: Performed By: #### L AB129, CAP810, GEV643, LAB15, LAB18, LAB20 #### LEON SLOAN ([id number]) [facility] ([facility]) [address] [place] [address] CBC WITH AUTO DIFFERENTIALon 03-20-2024 BASO # 0.1 K CUMM Normal 0.0-0.2 [facility] Comment on above: Order Comment: Locat ion: Performed By: #### L KD8217, RBV4361 #### LEON SLOAN ([id number]) [facility] ([facility]) [address] [address] Basophils/100 WBC (Bld) 1.8 % Normal 0.0-3.0 [facility] Comment on above: Order Comment: Locat ion: Performed By: #### L [id number], [id number] #### LEON SLOAN ([id number]) [facility] ([facility]) [address] [facility], [facility] [address] [place] [address] Eosinophils (Bld) [#/Vol] 0.27 10*3/uL Normal 0.00-0.40 [facility] Comment on above: Order Comment: Locat ion: Performed By: #### L [id number], [id number] #### LEON SLOAN ([id number]) [facility] ([facility]) [address] [place] [address]284 Eosinophils/100 WBC (Bld) 5.9 % Normal 0.0-7.0 [facility] Comment on above: Order Comment: Locat ion: Performed By: #### Kathleen CHING, [id number] #### LEON SLOAN ([id number]) [facility] ([facility]) [address] [place] [address] 48562 Erythrocyte distribution width (RBC) [Ratio] 18.3 % High 11.5-15.5 [facility] Comment on above: Order Comment: Locat ion: Performed By: #### Kathleen [id number], [id number] #### LEON SLOAN ([id number]) [facility] ([facility]) [address] [place] [address] 30545 Hematocrit (Bld) [Volume fraction] 34.2 % Low 42.0-52.0 [facility] Comment on above: Order Comment: Locat ion: Performed By: #### Kathleen [id number], [id number] #### LEON SLOAN ([id number]) [facility] ([facility]) [address] [place] [address] 34782 Hemoglobin (Bld) [Mass/Vol] 10.8 g/dL Low 13.5-18.0 [facility] Comment on above: Order Comment: Locat ion: Performed By: #### L [id number], [id number] #### LEON SLOAN ([id number]) [facility] ([facility]) [address] [place] [address] 88933 IMMGRN# 0.0 K CUMM Normal 0.0-0.3 [facility] Comment on above: Order Comment: Locat ion: Performed By: #### L [id number], [id number] #### LEON SLOAN ([id number]) [facility] ([facility]) [address] [address] IMMGRN% 0.2 % Normal 0.0-3.0 [facility] Comment on above: Order Comment: Locat ion: Performed By: #### Kathleen [id number], [id number] #### LEON SLOAN ([id number]) [facility] ([facility]) [address] [address] LYMPH # 1.1 K CUMM Normal 0.7-4.5 [facility] Comment on above: Order Comment: Locat ion: Performed By: #### Kathleen [id number], [id number] #### LEON SOLAN ([id number]) [facility] ([facility]) [address] [place] [address] 53354 Lymphocytes/100 WBC (Bld) 23.2 % Normal 14.0-46.0 [facility] Comment on above: Order Comment: Locat ion: Performed By: #### Kathleen HCING, [id number] #### LEON SLOAN ([id number]) [facility] ([facility]) [address] [place] [address] 13426 MCH (RBC) [Entitic mass] 27.8 pg Normal 27.0-31.0 [facility] Comment on above: Order Comment: Locat ion: Performed By: #### Kathleen BERNSTEINPH6443, [id number] #### LEON SLOAN ([id number]) [facility] ([facility]) [address] [place] [address] 27843 MCHC (RBC) [Mass/Vol] 31.6 g/dL Low 32.0-36.0 [facility] Comment on above: Order Comment: Locat ion: Performed By: #### Kathleen BERNSTEINWE6031, [id number] #### LEON SLOAN ([id number]) [facility] ([facility]) [address] [place] [address] 44201 MCV (RBC) [Entitic vol] 87.9 fL Normal 78.0-100.0 [facility] Comment on above: Order Comment: Locat ion: Performed By: #### L [id number], [id number] #### LEON SLOAN ([id number]) [facility] ([facility]) [address] [address] MONO # 0.8 K CUMM Normal 0.1-1.0 [facility] Comment on above: Order Comment: Locat ion: Performed By: #### L [id number], [id number] #### LEON SLOAN ([id number]) [facility] ([facility]) [address] [place] [address] 04014 Monocytes/100 WBC (Bld) 16.6 % High 4.0-13.0 [facility] Comment on above: Order Comment: Locat ion: Performed By: #### Kathleen CHING, [id number] #### LEON SLOAN ([id number]) [facility] ([facility]) [address] [place] [address] 60629 ELISEO # 2.4 K CUMM Normal 1.8-7.8 [facility] Comment on above: Order Comment: Locat ion: Performed By: #### Kathleen BERNSTEINOH7742, [id number] #### LEON SLOAN ([id number]) [facility] ([facility]) [address] [place] [address] 48739 Neutrophils/100 WBC (Bld) 52.3 % Normal 40.0-74.0 [facility] Comment on above: Order Comment: Locat ion: Performed By: #### L [id number], [id number] #### LEON SLOAN ([id number]) [facility] ([facility]) [address] [place] [address] 05658 Nucleated RBC/100 WBC (Bld) [Ratio] 0.0 % Normal 0.0-0.9 [facility] Comment on above: Order Comment: Locat ion: Performed By: #### L [id number], [id number] #### LEON SLOAN ([id number]) [facility] ([facility]) [address] [place] [address] 05853 Platelet mean volume (Bld) [Entitic vol] 10.8 fL Normal 8.9-12.6 [facility] Comment on above: Order Comment: Locat ion: Performed By: #### Kathleen BERNSTEINFZ6789, [id number] #### LEON SLOAN ([id number]) [facility] ([facility]) [address] [facility], [facility] [address] [place] [address]481 PLT 75 K CUMM Low 130-400 [facility] Comment on above: Order Comment: Locat ion: Performed By: #### Kathleen SINGH14, [id number] #### LEON SLOAN ([id number]) [facility] ([facility]) [address] [address] RBC 3.9 M CUMM Low 4.2-5.8 [facility] Comment on above: Order Comment: Locat ion: Performed By: #### Kathleen CHING, [id number] #### LEON SLOAN ([id number]) [facility] ([facility]) [address] [address] WBC 4.6 K CUMM Normal 3.8-10.6 [facility] Comment on above: Order Comment: Locat ion: Performed By: #### Kathleen CHING, [id number] #### LEON SLOAN ([id number]) [facility] ([facility]) [address] [address] HEPATIC PANELon 03-20-2024 Albumin [Mass/Vol] 2.8 g/dL Low 3.2-4.8 [facility] Comment on above: Order Comment: Locat ion: Performed By: #### L AB129, AOF954, OPD865, LAB15, LAB18, LAB20 #### LEON SLOAN ([id number]) [facility] ([facility]) [address] [address] ALP [Catalytic activity/Vol] 146 U/L High 40-127 [facility] Comment on above: Order Comment: Locat ion: Performed By: #### L AB129, TLG124, EXY717, LAB15, LAB18, LAB20 #### LEON SLOAN ([id number]) [facility] ([facility]) [address] [facility], [address] [place] [address]57 ALT [Catalytic activity/Vol] 56 U/L High 10-49 [facility] Comment on above: Order Comment: Locat ion: Performed By: #### L AB129, ZYU096, YBL485, LAB15, LAB18, LAB20 #### LEON SLOAN ([id number]) [facility] ([facility]) [address] [facility], [address] [place] [address]39 AST [Catalytic activity/Vol] 68 U/L High <=34 [facility] Comment on above: Order Comment: Locat ion: Performed By: #### L AB129, PLP673, ULX605, LAB15, LAB18, LAB20 #### LEON SLOAN ([id number]) [facility] ([facility]) [address] [address] BILI (INDIRECT) 1.7 mg/dL High 0.0-1.1 [facility] Comment on above: Order Comment: Locat ion: Performed By: #### L AB129, RYG515, KZL704, LAB15, LAB18, LAB20 #### LEON SLOAN ([id number]) [facility] ([facility]) [address] [facility], [address] [address] Bilirubin [Mass/Vol] 3.0 mg/dL High 0.3-1.2 [facility] Comment on above: Order Comment: Locat ion: Performed By: #### L AB129, TRE644, BMD914, LAB15, LAB18, LAB20 #### LEON SLOAN ([id number]) [facility] ([facility]) [address] [facility], [address] [place] [address] Bilirubin.direct [Mass/Vol] 1.3 mg/dL High <=0.4 [facility] Comment on above: Order Comment: Locat ion: Performed By: #### L AB129, YAV847, WRP363, LAB15, LAB18, LAB20 #### LEON SLOAN ([id number]) [facility] ([facility]) [address] [address] Protein [Mass/Vol] 6.6 g/dL Normal 5.7-8.2 [facility] Comment on above: Order Comment: Locat ion: Performed By: #### L AB129, ZWH715, GBM077, LAB15, LAB18, LAB20 #### LEON SLOAN ([id number]) [facility] ([facility]) [address] [address] HCET8Tdt 03-20-2024 HbA1c (Bld) [Mass fraction] 6.9 % High 0.0-5.6 [facility] Comment on above: Order Comment: Locat ion: Result Comment: Refe rence Interval: Normal: below 5.7% Prediabetes: 5.7% to 6.4% Diabetes: 6.5% or above Performed By: #### Kathleen AB90 #### LEON SLOAN ([id number]) [facility] ([facility]) [address] [place] [address] LIPID PANELon 03-20-2024 CHOL/HDL RATIO 5.0 High <=4.0 [facility] Comment on above: Order Comment: Locat ion: Performed By: #### L AB129, LEZ039, DNZ074, LAB15, LAB18, LAB20 #### LEON SLOAN ([id number]) [facility] ([facility]) [address] [address] Cholesterol [Mass/Vol] 134 mg/dL Normal <=200 [facility] Comment on above: Order Comment: Locat ion: Result Comment: Low- risk levels (desirable) < 200 mg/dL Moderate-risk levels (borderline) 200 to 239 mg/dL High-risk levels > or = 240 mg/dL Performed By: #### L AB129, SVW697, ZFR158, LAB15, LAB18, LAB20 #### LEON SLOAN ([id number]) [facility] ([facility]) [address] [address] Cholesterol in HDL [Mass/Vol] 27 mg/dL Low >60 [facility] Comment on above: Order Comment: Locat ion: Performed By: #### L AB129, ZPP112, TGC027, LAB15, LAB18, LAB20 #### LEON SLOAN ([id number]) [facility] ([facility]) [address] [facility], [address] [address] Cholesterol in LDL [Mass/Vol] 84 mg/dL Normal <=130 [facility] Comment on above: Order Comment: Locat ion: Performed By: #### L AB129, RNF133, SXB077, LAB15, LAB18, LAB20 #### LEON SLOAN ([id number]) [facility] ([facility]) [address] [address] NON-HDL CHOL 107 Normal [facility] Comment on above: Order Comment: Locat ion: Result Comment: LDL and Non-HDL goal dependent upon individual risk Performed By: #### L AB129, PMW826, MQU721, LAB15, LAB18, LAB20 #### LEON SLOAN ([id number]) [facility] ([facility]) [address] [facility], [address] [address] Triglyceride [Mass/Vol] 114 mg/dL Normal <=150 [facility] Comment on above: Order Comment: Locat ion: Performed By: #### L AB129, NPI862, DUZ313, LAB15, LAB18, LAB20 #### LEON SLOAN ([id number]) [facility] ([facility]) [address] [address] VLDL-CALC 22.8 mg/dl Normal 0-30 [facility] Comment on above: Order Comment: Locat ion: Performed By: #### L AB129, COD198, XFT587, LAB15, LAB18, LAB20 #### LEON SLOAN ([id number]) [facility] ([facility]) [address] [address] MAGNESIUMon 03-20-2024 Magnesium [Mass/Vol] 1.7 mg/dL Normal 1.6-2.6 [facility] Comment on above: Order Comment: Locat ion: Performed By: #### L AB129, MMG467, TQU643, LAB15, LAB18, LAB20 #### LEON SLOAN ([id number]) [facility] ([facility]) [address] [facility], [address] [place] [address] PHOSPHORUSon 03-20-2024 Phosphate [Mass/Vol] 2.9 mg/dL Normal 2.4-5.1 [facility] Comment on above: Order Comment: Locat ion: Performed By: #### L AB129, UKI626, API412, LAB15, LAB18, LAB20 #### ELON SLOAN ([id number]) [facility] ([facility]) [address] [facility], [address] [address] SLIDE SCAN IF INDICATEDon COMMENT Normocytic/Normochromic Normal C [facility] Comment on above: Order Comment: Locat ion: Performed By: #### Kathleen [id number], [id number] #### LEON SLOAN ([id number]) [facility] ([facility]) [address] [facility], [address] [place] [address] PLATELET ESTIMATE Decreased Abnormal Adequate [facility] Comment on above: Order Comment: Locat ion: Performed By: #### L [id number], [id number] #### LEON SLOAN ([id number]) [facility] ([facility]) [address] [facility], [facility] [address] [place] [address] TSHon 03-20-2024 TSH 0.879 MIU/mL Normal 0.550-4.78 0 [facility] Comment on above: Order Comment: Locat ion: Performed By: #### L AB129, PCM556, GQI705, LAB15, LAB18, LAB20 #### LEON SLOAN ([id number]) [facility] ([facility]) [address] [facility], [address] [place] [address] ABDOMEN PELVIS WO CONTRAS Ton 09-25-2023 [...] Self Edit Transcribed Date: 09/25/2023 02:17 Normal [facility] CT Pelvis limited WO contras ton 09-25-2023 [...] By: Self Edit Transcribed Date: 09/25/2023 02:17 [employer] EXAMINATION TYPE: CT ABDOMEN PELVIS WO CONTRAST [...] are present in the lower lumbar spine. [employer] Tal Hadley M D - 09/25/2023 EXAMINATION [...] By: Self Edit Transcribed Date: 09/25/2023 02:17 [employer] Radiology Study observation (narrative) [employer] CT Pelvis limited WO contras tOrdered By: Tal Hadley on 09-25-2023 [employer] Work Phone: PT Coag (PPP) [Time]on 09-25 aPTT Coag (Bld) [Time] 34.7 s Normal 23.3-35.3 Mo [facility] Comment on above: Order Comment: The r ecommended therapeutic INR range for most cardiac indications is 2.0-3.0 For high intensity therapy (i.e. mechanical heart valves), the recommended range is 2.5-3.5 Performed By: #### 5 902-2 #### [facility] [address] [place] [address] INR Coag (PPP) [Relative time] 1.5 {INR} NINF - 5.0 [employer] Interpretation and review of laboratory results Abnormal [employer] PT Coag (Bld) [Time] 17.6 s High [facility] The recommended therapeutic INR range for most cardiac indications is 2.0-3.0 For high intensity therapy (i.e. mechanical heart valves), the recommended range is 2.5-3.5 [facility] aPTT Coag (Bld) [Time]on aPTT Coag (PPP) [Time] 34.7 [address] [facility] [employer] Interpretation and review of laboratory results Normal [facility] Basic metabolic 2000 panelon 09-24-2023 Anion gap [Moles/Vol] 6 mmol/L Normal 6-18 [facility] Comment on above: Performed By: #### 2 4321-2 #### [facility] [address] [place] [address] Calcium [Mass/Vol] 9.3 mg/dL Normal 8.9-10.3 [facility] Comment on above: Performed By: #### 2 4321-2 #### [facility] [address] [place] [address] Chloride [Moles/Vol] 101 mmol/L Normal 98-107 [facility] Comment on above: Performed By: #### 2 4321-2 #### [facility] [address] [place] [address] CO2 [Moles/Vol] 27 mmol/L Normal 22-32 [facility] Comment on above: Performed By: #### 2 4321-2 #### [facility] [address] [place] [address] Creatinine [Mass/Vol] 0.64 mg/dL Normal 0.60-1.30 [facility] Comment on above: Performed By: #### 2 4321-2 #### [facility] [address] [place] [address] GFR/1.73 sq M.predicted among non-blacks MDRD (S/P/Bld) [Vol rate/Area] 119 mL/min/{1.73_m2} Normal >=60 [facility] Comment on above: Result Comment: Calc ulation based on the?Chronic Kidney Disease Epidemiology Collaboration (CKD-EPI) equation refit?without adjustment for race. Performed By: #### 2 4321-2 #### [facility] [address] [place] [address] Glucose [Mass/Vol] 178 mg/dL High 70-99 [facility] Comment on above: Performed By: #### 2 4321-2 #### [facility] [address] [place] [address] Potassium [Moles/Vol] 4.0 mmol/L Normal 3.6-5.1 [facility] Comment on above: Performed By: #### 2 4321-2 #### [facility] [address] [place] [address] Sodium [Moles/Vol] 134 mmol/L Low 136-145 [facility] Comment on above: Performed By: #### 2 4321-2 #### [facility] [address] [place] [address] Urea nitrogen [Mass/Vol] 8 mg/dL Normal 8-20 [facility] Comment on above: Performed By: #### 2 4321-2 #### [facility] [address] [place] [address] Urea nitrogen/Creatinine [Mass ratio] 12.5 mg/mg Normal 12.0-20.0 [facility] Comment on above: Performed By: #### 2 4321-2 #### [facility] [address] [place] [address] Anion gap [Moles/Vol] 6 mmol/L 6 - 18 [facility] Calcium [Mass/Vol] 9.3 mg/dL 8.9 - 10. 3 mg/dL [facility] Chloride [Moles/Vol] 101 mmol/L 98 - 10 7 mmol/L [facility] CO2 [Moles/Vol] 27 mmol/L 22 - 32 mmol/L [facility] Creatinine [Mass/Vol] 0.64 mg/dL 0.60 - 1.30 mg/dL [facility] GFR/1.73 sq M.predicted among non-blacks MDRD (S/P/Bld) [Vol rate/Area] 119 mL/min/{1.73_m2} - PINF [facility] Comment on above: Calculation based on the Chronic Kidney Disease Epidemiology Collaboration (CKD-EPI) equation refit without adjustment for race. Glucose [Mass/Vol] 178 mg/dL High 70 - 99 mg/dL [facility] Interpretation and review of laboratory results Abnormal [facility] Potassium [Moles/Vol] 4.0 mmol/L 3.6 - 5.1 mmol/L [facility] Sodium [Moles/Vol] 134 mmol/L Low 136 - 145 mmol/L [facility] Urea nitrogen [Mass/Vol] 8 mg/dL 8 - 20 mg/dL [facility] Urea nitrogen/Creatinine [Mass ratio] 12.5 mg/mg 12.0 - 20.[address] [facility] Hemogram and platelets WO di fferential panel (Bld)on 09-24-2023 Basophils (Bld) [#/Vol] 0.07 10*3/uL Normal 0.00-0.20 [facility] Comment on above: Performed By: #### 2 4317-0 #### [facility] [address] [place] [address] Basophils/100 WBC (Bld) 1.6 % Normal 0.0-2.0 [facility] Comment on above: Performed By: #### 2 4317-0 #### [facility] [address] [place] [address] Eosinophils (Bld) [#/Vol] 0.23 10*3/uL Normal 0.00-0.70 [facility] Comment on above: Performed By: #### 2 4317-0 #### [facility] [address] [place] [address] Eosinophils/100 WBC (Bld) 5.4 % Normal 0.0-7.0 [facility] Comment on above: Performed By: #### 2 4317-0 #### [facility] [address] [place] [address] Erythrocyte distribution width (RBC) [Ratio] 18.4 % High 11.0-14.8 [facility] Comment on above: Performed By: #### 2 4317-0 #### [facility] [address] [place] [address] Hematocrit (Bld) [Volume fraction] 38.5 % Low 39.0-49.0 [facility] Comment on above: Performed By: #### 2 4317-0 #### [facility] [address] [place] [address] Hemoglobin (Bld) [Mass/Vol] 12.7 g/dL Low 13.5-17.5 [facility] Comment on above: Performed By: #### 2 4317-0 #### [facility] [address] [place] [address] Immature granulocytes (Bld) [#/Vol] 0.01 10*3/uL Normal 0.00-0.10 [facility] Comment on above: Performed By: #### 2 4317-0 #### [facility] [address] [place] [address] Immature granulocytes/100 WBC (Bld) 0.2 % Normal 0.0-1.2 [facility] Comment on above: Performed By: #### 2 4317-0 #### [facility] [address] [place] [address] Lymphocytes (Bld) [#/Vol] 1.14 10*3/uL Normal 1.00-4.80 [facility] Comment on above: Performed By: #### 2 4317-0 #### [facility] [address] [place] [address] Lymphocytes/100 WBC (Bld) 26.8 % Normal 17.9-49.6 [facility] Comment on above: Performed By: #### 2 4317-0 #### [facility] [address] [place] [address] MCH 28.9 pcg Normal 27.0-34.0 [facility] Comment on above: Performed By: #### 2 4317-0 #### [facility] [address] [place] [address] MCHC (RBC) [Mass/Vol] 33.0 g/dL Normal 30.8-35.3 [facility] Comment on above: Performed By: #### 2 4317-0 #### [facility] [address] [place] [address] MCV (RBC) [Entitic vol] 87.5 fL Normal 80.0-97.0 M [facility] Comment on above: Performed By: #### 2 4317-0 #### [facility] [address] [place] [address] Monocytes (Bld) [#/Vol] 0.73 10*3/uL Normal 0.00-0.90 [facility] Comment on above: Performed By: #### 2 4317-0 #### [facility] [address] [place] [address] Monocytes/100 WBC (Bld) 17.1 % Normal 4.0-23.0 M [facility] Comment on above: Performed By: #### 2 4317-0 #### [facility] [address] [place] [address] Neutrophils Absolute 2.08 K/mcL Normal 1.80-7.70 M[facility] t [facility] Comment on above: Performed By: #### 2 4317-0 #### [facility] [address] [place] [address] Neutrophils/100 WBC (Bld) 48.9 % Normal 38.1-75.5 [facility] [place] Comment on above: Performed By: #### 2 4317-0 #### [facility] [address] [place] [address] Platelet mean volume (Bld) [Entitic vol] 11.0 fL Normal 6.2-12.1 [facility] [place] Comment on above: Performed By: #### 2 4317-0 #### [facility] [address] [place] [address] Platelets (Bld) [#/Vol] 85 10*3/uL Low 142-424 M [facility] Comment on above: Result Comment: Resu lts confirmed by slide review. Performed By: #### 2 4317-0 #### [facility] [address] [place] [address] RBC (Bld) [#/Vol] 4.40 10*6/uL Normal 4.30-5.70 [facility] [place] Comment on above: Performed By: #### 2 4317-0 #### [facility] [address] [place] [address] WBC (Bld) [#/Vol] 4.3 10*3/uL Low 4.6-10.2 [facility], [place] Comment on above: Performed By: #### 2 4317-0 #### [facility] [address] [place] [address] Hemogram and platelets WO di fferential panel [...] Immature granulocytes (Bld) [#/Vol] 0.01 10*3/uL [facility] [employer] Immature granulocytes/100 WBC (Bld) 0.2 % 0.0 - 1.2 % [facility] [employer] Interpretation and review of laboratory results Abnormal [facility] Lymphocytes (Bld) [#/Vol] 1.14 10*3/uL [facility] Lymphocytes/100 WBC (Bld) 26.8 % 17.9 - 49.6 % [facility] MCH (RBC) [Entitic mass] 28.9 pg [facility] MCHC (RBC) [Mass/Vol] 33.0 g/dL 30.8 - 35.3 g/dL [facility] [employer] MCV (RBC) [Entitic vol] 87.5 fL [facility] Monocytes (Bld) [#/Vol] 0.73 10*3/uL [facility] Monocytes/100 WBC (Bld) 17.1 % 4.0 - 23.0 % [facility] Neutrophils (Bld) [#/Vol] 2.08 10*3/uL [facility] Neutrophils/100 WBC (Bld) 48.9 % 38.1 - 75.5 % [facility] [employer] Platelet mean volume (Bld) [Entitic vol] 11.0 fL [facility] th Platelets (Bld) [#/Vol] 85 10*3/uL Low [facility] [employer] Comment on above: Results confirmed by slide review. RBC (Bld) [#/Vol] 4.40 10*6/uL [facility] WBC (Bld) [#/Vol] 4.3 10*3/uL [facility] - Specimen inform ationon 09-24-2023 Specimen source Nom (Unsp spec) Hold for add-ons. [facility] [employer] Comment on above: Auto resulted. No Panel Informationon 09-24 [facility] Urinalysis dipstick W Reflex Microscopic panel (U)on 09-24-2023 Bacteria, Urine Rare Abnormal None [facility] Comment on above: Performed By: #### 5 7020-0 #### [facility] [address] [place] [address] Bilirubin, Urine Negative Normal Negative [facility] Comment on above: Performed By: #### 5 7020-0 #### [facility] [address] [place] [address] Blood, Urine 3+ Abnormal Negative, Trace [facility] [place] Comment on above: Performed By: #### 5 20-0 #### [facility] [address] [place] [address] Clarity (U) Clear Normal Clear [facility] [place] Comment on above: Performed By: #### 5 20-0 #### [facility] [address] [place] [address] Color (U) Colorless Abnormal Yellow [facility] [place] Comment on above: Performed By: #### 5 20-0 #### [facility] [address] [place] [address] Glucose Ql (U) >1000 Abnormal Normal [facility] Comment on above: Performed By: #### 5 20-0 #### [facility] [address] [place] [address] Ketones Ql (U) Negative Normal Negative [facility] Comment on above: Performed By: #### 5 7019-0 #### [facility] [address] [place] [address] Leukocytes, Urine Negative Normal Negative [facility] Comment on above: Performed By: #### 5 20-0 #### [facility] [address] [place] [address] Nitrite, Urine Negative Normal Negative [facility] Comment on above: Performed By: #### 5 20-0 #### [facility] [address] [place] [address] pH (U) 6.5 [pH] Normal 5.0-8.0 [facility] [place] Comment on above: Performed By: #### 5 20-0 #### [facility] [address] [place] [address] Protein, Urine Negative Normal Negative [facility] Comment on above: Performed By: #### 5 7020-0 #### [facility] [address] [place] [address] RBC LM.HPF (Urine sed) [#/Area] 247 /[HPF] High 0-5 [facility] [place] Comment on above: Performed By: #### 5 7020-0 #### [facility] [address] [place] [address] Specific [place] Urine 1.010 Normal 1.002 -1.03 0 [facility] [place] Comment on above: Performed By: #### 5 7020-0 #### [facility] [address] [place] [address] Urobilinogen, Urine Normal Normal Normal [facility] [place] Comment on above: Performed By: #### 5 7020-0 #### [facility] [address] [place] [address] WBC LM.HPF (Urine sed) [#/Area] /[HPF] Normal 0-5 [facility] [place] Comment on above: Performed By: #### 5 7020-0 #### [facility] [address] [place] [address] Bacteria LM.HPF (Urine sed) [#/Area] Rare Abnormal None /HPF [facility] Bilirubin Ql (U) Negative Negative mg/dL [facility] Clarity (U) Clear Clear [facility] Color (U) Colorless Abnormal Yellow [facility] Glucose Ql (U) >1000 Abnormal Normal mg/dL [facility] Hemoglobin Ql (U) 3+ Abnormal Negative, Trace [facility] Interpretation and review of laboratory results Abnormal [facility] Ketones (U) [Mass/Vol] Negative Negat fabricio mg/dL [facility] Leukocyte esterase Test strip Ql (U) Negative Negative WBCs/mcL [facility] Nitrite Ql (U) Negative Negative [facility] pH (U) 6.5 [pH] 5.0 - 8.0 pH [facility] Protein (U) [Mass/Vol] Negative Negat fabricio mg/dL [facility] RBC LM.HPF (Urine sed) [#/Area] 247 /[HPF] High [facility] Specific gravity (U) [Rel density] 1.010 1.002 - 1.030 [facility] Urobilinogen (U) [Mass/Vol] Normal Normal mg/dL [facility] WBC LM.HPF (Urine sed) [#/Area] [facility] Basic Metabolic Panel (COPC) on 08-03-2023 Creatinine [Mass/Vol] 0.59 mg/dL Low 0.76-1.27 [facility] Comment on above: Order Comment: Testi ng performed at: [] [facility] [address] [place] [address], [address], , Marble Finisher: Tres Cm, PhD Performed By: #### C 121, C301, C406, C4176, C116, C48, C8, C45, C400, C115 #### Refer to report for performing lab GFR/1.73 sq M.predicted among non-blacks MDRD (S/P/Bld) [Vol rate/Area] 122 mL/min/{1.73_m2} Invalid Interpretation Code >59 [facility] Comment on above: Order Comment: Testi ng performed at: [] [facility], [address] [place] [address], [address], , Marble Finisher: Tres Cm, PhD Performed By: #### C 121, C301, C406, C4176, C116, C48, C8, C45, C400, C115 #### Refer to report for performing lab Urea nitrogen/Creatinine [Mass ratio] 15 mg/mg Invalid Interpretation Code 9-20 [facility] Comment on above: Order Comment: Testi ng performed at: [] [facility], [address] [place] [address], [address], , Marble Finisher: Tres Cm, PhD Performed By: #### C 121, C301, C406, C4176, C116, C48, C8, C45, C400, C115 #### Refer to report for performing lab Potassium [Moles/Vol] 3.9 mmol/L Invalid Interpretation Code 3.5-5.2 [facility] Comment on above: Order Comment: Testi ng performed at: [] [facility], [address] [place] [address], [address], , Marble Finisher: Tres Cm, PhD Performed By: #### C 121, C301, C406, C4176, C116, C48, C8, C45, C400, C115 #### Refer to report for performing lab Chloride [Moles/Vol] 101 mmol/L Invalid Interpretation Code 96-106 [facility] Comment on above: Order Comment: Testi ng performed at: [] [facility], [address] [place] [address], [address], , Marble Finisher: Tres Cm, PhD Performed By: #### C 121, C301, C406, C4176, C116, C48, C8, C45, C400, C115 #### Refer to report for performing lab Sodium [Moles/Vol] 136 mmol/L Invalid Interpretation Code 134-144 [facility] Comment on above: Order Comment: Testi ng performed at: [] [facility], [address] [place] [address], [address], , Marble Finisher: Tres Cm, PhD Performed By: #### C 121, C301, C406, C4176, C116, C48, C8, C45, C400, C115 #### Refer to report for performing lab Urea nitrogen [Mass/Vol] 9 mg/dL Invalid Interpretation Code 6-24 [facility] Comment on above: Order Comment: Testi ng performed at: [] [facility], [address] [place] [address], [address], , Marble Finisher: Tres Cm, PhD Performed By: #### C 121, C301, C406, C4176, C116, C48, C8, C45, C400, C115 #### Refer to report for performing lab Calcium [Mass/Vol] 9.0 mg/dL Invalid Interpretation Code 8.7-10.2 [facility] Comment on above: Order Comment: Testi ng performed at: [] [facility], [address] [place] [address], [address], , Marble Finisher: Tres Cm, PhD Performed By: #### C 121, C301, C406, C4176, C116, C48, C8, C45, C400, C115 #### Refer to report for performing lab CO2 [Moles/Vol] 22 mmol/L Invalid Interpretation Code [facility] Comment on above: Order Comment: Testi ng performed at: [] [facility], [address] [place] [address], [address], , Marble Finisher: Tres Cm, PhD Performed By: #### C 121, C301, C406, C4176, C116, C48, C8, C45, C400, C115 #### Refer to report for performing lab Glucose [Mass/Vol] 98 mg/dL Invalid Interpretation Code 70-99 [facility] Comment on above: Order Comment: Testi ng performed at: [] [facility], [address] [place] [address], [address], , Marble Finisher: Tres Cm, PhD Performed By: #### C 121, C301, C406, C4176, C116, C48, C8, C45, C400, C115 #### Refer to report for performing lab CBC with Diffon 08-03-2023 Basophils (Bld) [#/Vol] 0.1 10*3/uL Invalid Interpretation Code 0.0-0.2 [facility] Comment on above: Order Comment: Testi ng performed at: [] [facility], [address] [place] [address], [address], , Marble Finisher: Tres Cm, PhD Performed By: #### C 121, C301, C406, C4176, C116, C48, C8, C45, C400, C115 #### Refer to report for performing lab Basophils/100 WBC (Bld) 2 % Invalid Interpretation Code Not Estab. [facility] Comment on above: Order Comment: Testi ng performed at: [] [facility], [address] [place] [address], [address], , Marble Finisher: Tres Cm, PhD Performed By: #### C 121, C301, C406, C4176, C116, C48, C8, C45, C400, C115 #### Refer to report for performing lab Eosinophils (Bld) [#/Vol] 0.5 10*3/uL High 0.0-0.4 [facility] Comment on above: Order Comment: Testi ng performed at: [] [address], [address], , Marble Finisher: Tres Cm, PhD Performed By: #### C 121, C301, C406, C4176, C116, C48, C8, C45, C400, C115 #### Refer to report for performing lab Eosinophils/100 WBC (Bld) 10 % Invalid Interpretation Code Not Estab. [facility] Comment on above: Order Comment: Testi ng performed at: [] [facility], [address] [place] [address], [address], , Marble Finisher: Tres Cm, PhD Performed By: #### C 121, C301, C406, C4176, C116, C48, C8, C45, C400, C115 #### Refer to report for performing lab Erythrocyte distribution width (RBC) [Ratio] 15.5 % High 11.6-15.4 [facility] Comment on above: Order Comment: Testi ng performed at: [] [facility], [address] [place] [address], [address], , Marble Finisher: Tres Cm, PhD Performed By: #### C 121, C301, C406, C4176, C116, C48, C8, C45, C400, C115 #### Refer to report for performing lab Hematocrit (Bld) [Volume fraction] 36.2 % Low 37.5-51.0 [facility] Comment on above: Order Comment: Testi ng performed at: [] [address], [address], , Marble Finisher: Tres Cm, PhD Performed By: #### C 121, C301, C406, C4176, C116, C48, C8, C45, C400, C115 #### Refer to report for performing lab Hematology Comments: Note: Invalid Interpretation Code [facility] Comment on above: Order Comment: Testi ng performed at: [] [address], [address], , Marble Finisher: Tres Cm, PhD Result Comment: Veri fied by microscopic examination. A hand-written panel/profile was received from your office. In accordance with the [facility] Ambiguous Test Code Policy dated May 2003, we have assigned CBC with Differential/Platelet, Test Code #547853 to this request. If this is not the testing you wished to receive on this specimen, please contact the [facility] Client Inquiry/ Technical Services Department to clarify the test order. We appreciate your business. Performed By: #### C 121, C301, C406, C4176, C116, C48, C8, C45, C400, C115 #### Refer to report for performing lab Hemoglobin (Bld) [Mass/Vol] 11.8 g/dL Low 13.0-17.7 [facility] Comment on above: Order Comment: Testi ng performed at: [] [facility], [address] [place] [address], [address], , Marble Finisher: Tres Cm, PhD Performed By: #### C 121, C301, C406, C4176, C116, C48, C8, C45, C400, C115 #### Refer to report for performing lab Immature Grans (Abs) 0.0 x10E3/uL Invalid Interpretation Code 0.0-0.1 [facility] Comment on above: Order Comment: Testi ng performed at: [] [facility], [address] [place] [address], [address], , Marble Finisher: Tres Cm, PhD Performed By: #### C 121, C301, C406, C4176, C116, C48, C8, C45, C400, C115 #### Refer to report for performing lab Immature granulocytes/100 WBC (Bld) 0 % Invalid Interpretation Code Not Estab. [facility] Comment on above: Order Comment: Testi ng performed at: [] [facility], [address] [place] [address], [address], , Marble Finisher: Tres Cm, PhD Performed By: #### C 121, C301, C406, C4176, C116, C48, C8, C45, C400, C115 #### Refer to report for performing lab Lymphocytes (Bld) [#/Vol] 1.1 10*3/uL Invalid Interpretation Code 0.7-3.1 [facility] Comment on above: Order Comment: Testi ng performed at: [] [facility], [address] [place] [address], [address], , Marble Finisher: Tres Cm, PhD Performed By: #### C 121, C301, C406, C4176, C116, C48, C8, C45, C400, C115 #### Refer to report for performing lab Lymphocytes/100 WBC (Bld) 23 % Invalid Interpretation Code Not Estab. [facility] Comment on above: Order Comment: Testi ng performed at: [] [facility], [address] [place] [address], [address], , Marble Finisher: Tres Cm, PhD Performed By: #### C 121, C301, C406, C4176, C116, C48, C8, C45, C400, C115 #### Refer to report for performing lab MCH (RBC) [Entitic mass] 27.8 pg Invalid Interpretation Code 26.6-33.0 [facility] Comment on above: Order Comment: Testi ng performed at: [] [address], [address], , Marble Finisher: Tres Cm, PhD Performed By: #### C 121, C301, C406, C4176, C116, C48, C8, C45, C400, C115 #### Refer to report for performing lab MCHC (RBC) [Mass/Vol] 32.6 g/dL Invalid Interpretation Code 31.5-35.7 [facility] Comment on above: Order Comment: Testi ng performed at: [] [address], [address], , Marble Finisher: Tres Cm, PhD Performed By: #### C 121, C301, C406, C4176, C116, C48, C8, C45, C400, C115 #### Refer to report for performing lab MCV (RBC) [Entitic vol] 85 fL Invalid Interpretation Code 79-97 [facility] Comment on above: Order Comment: Testi ng performed at: [] [address], [address], , Marble Finisher: Tres Cm, PhD Performed By: #### C 121, C301, C406, C4176, C116, C48, C8, C45, C400, C115 #### Refer to report for performing lab Monocytes (Bld) [#/Vol] 0.7 10*3/uL Invalid Interpretation Code 0.1-0.9 [facility] Comment on above: Order Comment: Testi ng performed at: [] [facility], [address] [place] [address], [address], , Marble Finisher: Tres Cm, PhD Performed By: #### C 121, C301, C406, C4176, C116, C48, C8, C45, C400, C115 #### Refer to report for performing lab Monocytes/100 WBC (Bld) 15 % Invalid Interpretation Code Not Estab. [facility] Comment on above: Order Comment: Testi ng performed at: [] [facility], [address] [place] [address], [address], , Marble Finisher: Tres Cm, PhD Performed By: #### C 121, C301, C406, C4176, C116, C48, C8, C45, C400, C115 #### Refer to report for performing lab Neutrophils (Absolute) 2.4 x10E3/uL Invalid Interpretation Code 1.4-7.0 [facility] Comment on above: Order Comment: Testi ng performed at: [] [facility], [address], , Marble Finisher: Tres Cm, PhD Performed By: #### C 121, C301, C406, C4176, C116, C48, C8, C45, C400, C115 #### Refer to report for performing lab Neutrophils/100 WBC (Bld) 50 % Invalid Interpretation Code Not Estab. [facility] Comment on above: Order Comment: Testi ng performed at: [] [facility] [address] [place] [address], [address], , Marble Finisher: Tres Cm, PhD Performed By: #### C 121, C301, C406, C4176, C116, C48, C8, C45, C400, C115 #### Refer to report for performing lab Platelets (Bld) [#/Vol] 83 10*3/uL Critically low 150-450 [facility] Comment on above: Order Comment: Testi ng performed at: [] [facility], [address] [place] [address], [address], , Marble Finisher: Tres Cm, PhD Result Comment: Plat elet count verified by examination of peripheral blood smear. Performed By: #### C 121, C301, C406, C4176, C116, C48, C8, C45, C400, C115 #### Refer to report for performing lab RBC (Bld) [#/Vol] 4.25 10*6/uL Invalid Interpretation Code 4.14-5.80 [facility] Comment on above: Order Comment: Testi ng performed at: [] [facility], [address] [place] [address], [address], , Marble Finisher: Tres Cm, PhD Performed By: #### C 121, C301, C406, C4176, C116, C48, C8, C45, C400, C115 #### Refer to report for performing lab WBC (Bld) [#/Vol] 4.8 10*3/uL Invalid Interpretation Code 3.4-10.8 [facility] Comment on above: Order Comment: Testi ng performed at: [] [facility], [address] [place] [address], [address], , Marble Finisher: Tres Cm, PhD Performed By: #### C 121, C301, C406, C4176, C116, C48, C8, C45, C400, C115 #### Refer to report for performing lab Hepatic Panel (COPC)on 08-03 Bilirubin.indirect [Mass/Vol] 0.67 mg/dL High 0.00-0.40 [facility] Comment on above: Order Comment: Testi ng performed at: [] [facility], [address] [place] [address], [address], , Marble Finisher: Tres Cm, PhD Performed By: #### C 121, C301, C406, C4176, C116, C48, C8, C45, C400, C115 #### Refer to report for performing lab ALT [Catalytic activity/Vol] 39 U/L Invalid Interpretation Code 0-44 [facility] Comment on above: Order Comment: Testi ng performed at: [] [address], [address], , Marble Finisher: Tres Cm, PhD Performed By: #### C 121, C301, C406, C4176, C116, C48, C8, C45, C400, C115 #### Refer to report for performing lab AST [Catalytic activity/Vol] 66 U/L High 0-40 [facility] Comment on above: Order Comment: Testi ng performed at: [] [address], [address], , Marble Finisher: Tres Cm, PhD Performed By: #### C 121, C301, C406, C4176, C116, C48, C8, C45, C400, C115 #### Refer to report for performing lab Albumin [Mass/Vol] 3.0 g/dL Low 4.1-5.1 [facility] Comment on above: Order Comment: Testi ng performed at: [] [facility], [address] [place] [address], [address], , Marble Finisher: Tres Cm, PhD Performed By: #### C 121, C301, C406, C4176, C116, C48, C8, C45, C400, C115 #### Refer to report for performing lab ALP [Catalytic activity/Vol] 143 U/L High 44-121 [facility] Comment on above: Order Comment: Testi ng performed at: [] [facility], [address] [place] [address], [address], , Marble Finisher: Tres Cm, PhD Performed By: #### C 121, C301, C406, C4176, C116, C48, C8, C45, C400, C115 #### Refer to report for performing lab Bilirubin [Mass/Vol] 1.8 mg/dL High 0.0-1.2 [facility] Comment on above: Order Comment: Testi ng performed at: [] [facility], [address] [place] [address], [address], , Marble Finisher: Tres Cm, PhD Performed By: #### C 121, C301, C406, C4176, C116, C48, C8, C45, C400, C115 #### Refer to report for performing lab Protein [Mass/Vol] 7.0 g/dL Invalid Interpretation Code 6.0-8.5 [facility] Comment on above: Order Comment: Testi ng performed at: [] [facility], [address] [place] [address], [address], , Marble Finisher: Tres Cm, PhD Performed By: #### C 121, C301, C406, C4176, C116, C48, C8, C45, C400, C115 #### Refer to report for performing lab HgbA1C (COPC)on 08-03-2023 HbA1c (Bld) [Mass fraction] 6.6 % High 4.8-5.6 [facility] Comment on above: Order Comment: Testi ng performed at: [] [facility], [address] [place] [address], [address], , Marble Finisher: Tres Cm, PhD Result Comment: Pred iabetes: [...] Testi ng performed at: [] [facility], [address] [place] [address], [address], , Marble Finisher: Tres Cm, PhD Performed By: #### C 121, C301, C406, C4176, C116, C48, C8, C45, C400, C115 #### Refer to report for performing lab LDL Chol Calc (NIH) 120 mg/dL High 0-99 [facility] Comment on above: Order Comment: Testi ng performed at: [] [facility], [address] [place] [address], [address], , Marble Finisher: Tres Cm, PhD Performed By: #### C 121, C301, C406, C4176, C116, C48, C8, C45, C400, C115 #### Refer to report for performing lab VLDL Cholesterol Elliott 29 mg/dL Invalid Interpretation Code 5-40 [facility] Comment on above: Order Comment: Testi ng performed at: [] [facility], [address] [place] [address], [address], , Marble Finisher: Tres Cm, PhD Performed By: #### C 121, C301, C406, C4176, C116, C48, C8, C45, C400, C115 #### Refer to report for performing lab Cholesterol [Mass/Vol] 186 mg/dL Invalid Interpretation Code 100-199 [facility] Comment on above: Order Comment: Testi ng performed at: [] [facility], [address] [place] [address], [address], , Marble Finisher: Tres Cm, PhD Performed By: #### C 121, C301, C406, C4176, C116, C48, C8, C45, C400, C115 #### Refer to report for performing lab Triglyceride [Mass/Vol] 164 mg/dL High 0-149 [facility] Comment on above: Order Comment: Testi ng performed at: [] [facility], [address] [place] [address], [address], , Marble Finisher: Tres Cm, PhD Performed By: #### C 121, C301, C406, C4176, C116, C48, C8, C45, C400, C115 #### Refer to report for performing lab Magnesium (COPC)on 3 Magnesium [Mass/Vol] 1.9 mg/dL Invalid Interpretation Code 1.6-2.3 [facility] Comment on above: Order Comment: Testi ng performed at: [] [facility], [address] [place] [address], [address], , Marble Finisher: Tres Cm, PhD Performed By: #### C 121, C301, C406, C4176, C116, C48, C8, C45, C400, C115 #### Refer to report for performing lab Phosphorus (COPC)on 08-03-20 23 Phosphate [Mass/Vol] 3.4 mg/dL Invalid Interpretation Code 2.8-4.1 [facility] Comment on above: Order Comment: Testi ng performed at: [] [facility], [address] [place] [address], [address], , Marble Finisher: Tres Cm, PhD Performed By: #### C 121, C301, C406, C4176, C116, C48, C8, C45, C400, C115 #### Refer to report for performing lab TSH (COPC)on 08-03-2023 TSH 1.580 uIU/mL Invalid Interpretation Code 0.450-4.50 0 [facility] Comment on above: Order Comment: Testi ng performed at: [] [facility], [address] [place], [address], , Marble Finisher: Tres Cm, PhD Performed By: #### C 121, C301, C406, C4176, C116, C48, C8, C45, C400, C115 #### Refer to report for performing lab Uric Acid (COPC)on 3 Urate [Mass/Vol] 3.7 mg/dL Low 3.8-8.4 [facility] Comment on above: Order Comment: Testi ng performed at: [] [facility], [address] [place] [address], [address], , Marble Finisher: Tres Cm, PhD Result Comment: Ther apeutic target for gout patients: <6.0 Performed By: #### C 121, C301, C406, C4176, C116, C48, C8, C45, C400, C115 #### Refer to report for performing lab Urinalysis and Microscopic w / Rfx to Cx ([facility])on 08-03-2023 Bacteria None seen Invalid Interpretation Code None seen/Few [facility] Comment on above: Order Comment: Testi ng performed at: [] [facility], [address] [place] [address], [address], , Marble Finisher: Tres Cm, PhD Performed By: #### C 121, C301, C406, C4176, C116, C48, C8, C45, C400, C115 #### Refer to report for performing lab Casts None seen Invalid Interpretation Code None seen [facility] Comment on above: Order Comment: Testi ng performed at: [] [facility], [address] [place] [address], [address], , Marble Finisher: Tres Cm, PhD Performed By: #### C 121, C301, C406, C4176, C116, C48, C8, C45, C400, C115 #### Refer to report for performing lab Epithelial cells LM Ql (Urine sed) None seen Invalid Interpretation Code 0 - 10 [facility] Comment on above: Order Comment: Testi ng performed at: [] [facility], [address] [place] [address], [address], , Marble Finisher: Tres Cm, PhD Performed By: #### C 121, C301, C406, C4176, C116, C48, C8, C45, C400, C115 #### Refer to report for performing lab RBC 0-2 Invalid Interpretation Code 0 - 2 [facility] Comment on above: Order Comment: Testi ng performed at: [] [facility], [address] [place] [address], [address], , Marble Finisher: Tres Cm, PhD Performed By: #### C 121, C301, C406, C4176, C116, C48, C8, C45, C400, C115 #### Refer to report for performing lab WBC None seen Invalid Interpretation Code 0 - 5 [facility] Comment on above: Order Comment: Testi ng performed at: [] [facility], [address] [place] [address], [address], , Marble Finisher: Tres Cm, PhD Performed By: #### C 121, C301, C406, C4176, C116, C48, C8, C45, C400, C115 #### Refer to report for performing lab Appearance (U) Clear Invalid Interpretation Code Clear [facility] Comment on above: Order Comment: Testi ng performed at: [] [facility], [address] [place] [address], [address], , Marble Finisher: Tres Cm, PhD Performed By: #### C 121, C301, C406, C4176, C116, C48, C8, C45, C400, C115 #### Refer to report for performing lab Bilirubin Ql (U) Negative Invalid Interpretation Code Negative [facility] Comment on above: Order Comment: Testi ng performed at: [] [facility], [address] [place] [address], [address], , Marble Finisher: Tres Cm, PhD Performed By: #### C 121, C301, C406, C4176, C116, C48, C8, C45, C400, C115 #### Refer to report for performing lab Color (U) Yellow Invalid Interpretation Code Yellow [facility] Comment on above: Order Comment: Testi ng performed at: [] [facility], [address] [place] [address], [address], , Marble Finisher: Tres Cm, PhD Performed By: #### C 121, C301, C406, C4176, C116, C48, C8, C45, C400, C115 #### Refer to report for performing lab Glucose Ql (U) 3+ Abnormal Negative [facility] Comment on above: Order Comment: Testi ng performed at: [] [facility], [address] [place] [address], [address], , Marble Finisher: Tres Cm, PhD Performed By: #### C 121, C301, C406, C4176, C116, C48, C8, C45, C400, C115 #### Refer to report for performing lab Ketones Ql (U) Negative Invalid Interpretation Code Negative [facility] Comment on above: Order Comment: Testi ng performed at: [] [facility], [address] [place] [address], [address], , Marble Finisher: Tres Cm, PhD Performed By: #### C 121, C301, C406, C4176, C116, C48, C8, C45, C400, C115 #### Refer to report for performing lab Microscopic Examination See below: Invalid Interpretation Code [facility] Comment on above: Order Comment: Testi ng performed at: [] [facility], [address] [place] [address], [address], , Marble Finisher: Tres Cm, PhD Result Comment: Micr oscopic was indicated and was performed. Performed By: #### C 121, C301, C406, C4176, C116, C48, C8, C45, C400, C115 #### Refer to report for performing lab Nitrite, Urine Negative Invalid Interpretation Code Negative [facility] Comment on above: Order Comment: Testi ng performed at: [] [facility], [address] [place] [address], [address], , Marble Finisher: Tres Cm, PhD Performed By: #### C 121, C301, C406, C4176, C116, C48, C8, C45, C400, C115 #### Refer to report for performing lab Occult Blood Negative Invalid Interpretation Code Negative [facility] Comment on above: Order Comment: Testi ng performed at: [] [facility], [address] [place] [address], [address], , Marble Finisher: Tres Cm, PhD Performed By: #### C 121, C301, C406, C4176, C116, C48, C8, C45, C400, C115 #### Refer to report for performing lab pH (U) 6.5 [pH] Invalid Interpretation Code 5.0-7.5 [facility] Comment on above: Order Comment: Testi ng performed at: [] [facility], [address] [place] [address], [address], , Marble Finisher: Tres Cm, PhD Performed By: #### C 121, C301, C406, C4176, C116, C48, C8, C45, C400, C115 #### Refer to report for performing lab Protein Ql (U) Negative Invalid Interpretation Code Negative/T race [facility] Comment on above: Order Comment: Testi ng performed at: [] [facility], [address] [place] [address], [address], , Marble Finisher: Tres Cm, PhD Performed By: #### C 121, C301, C406, C4176, C116, C48, C8, C45, C400, C115 #### Refer to report for performing lab Specific gravity (U) [Rel density] 1.013 Invalid Interpretation Code 1.005-1.03 0 [facility] Comment on above: Order Comment: Testi ng performed at: [] [facility], [address] [place], [address], , Marble Finisher: Tres Cm, PhD Performed By: #### C 121, C301, C406, C4176, C116, C48, C8, C45, C400, C115 #### Refer to report for performing lab Urobilinogen,Semi-Qn 0.2 mg/dL Invalid Interpretation Code 0.2-1.0 [facility] Comment on above: Order Comment: Testi ng performed at: [] [facility], [address] [place], [address], , Marble Finisher: Tres Cm, PhD Performed By: #### C 121, C301, C406, C4176, C116, C48, C8, C45, C400, C115 #### Refer to report for performing lab WBC Esterase Negative Invalid Interpretation Code Negative [facility] Comment on above: Order Comment: Testi ng performed at: [] [facility], [address] [place], [address], , Marble Finisher: Tres Cm, PhD Performed By: #### C 121, C301, C406, C4176, C116, C48, C8, C45, C400, C115 #### Refer to report for performing lab Urinalysis and Microscopic w / Rfx to Cx ([facility])on 08-02-2023 Microscopic Examination Comment Normal [facility] Comment on above: Order Comment: Testi ng performed at: [] [facility], [address] [facility], [place], [address], , Marble Finisher: Tres Cm, PhD Result Comment: Micr oscopic follows if indicated. Performed By: #### C 121, C301, C406, C4176, C116, C48, C8, C45, C400, C115 #### Refer to report for performing lab Urinalysis Reflex Comment Normal [facility] Comment on above: Order Comment: Testi ng performed at: [] [facility], [address] [facility], [place], [address], , Marble Finisher: Tres Cm, PhD Result Comment: This specimen will not reflex to a Urine Culture. Performed By: #### C 121, C301, C406, C4176, C116, C48, C8, C45, C400, C115 #### Refer to report for performing lab Basic Metabolic Panel (COPC) on 04-05-2023 Creatinine [Mass/Vol] 0.65 mg/dL Low 0.76-1.27 [facility] Comment on above: Order Comment: Testi ng performed at: [] [facility], [address] [place] [address], [address], , Marble Finisher: Tres Cm, PhD Performed By: #### C 121, C301, C406, C4176, C116, C48, C8, C45, C400, C115 #### Refer to report for performing lab GFR/1.73 sq M.predicted among non-blacks MDRD (S/P/Bld) [Vol rate/Area] 119 mL/min/{1.73_m2} Invalid Interpretation Code >59 [facility] Comment on above: Order Comment: Testi ng performed at: [] [facility], [address] [place], [address], , Marble Finisher: Tres Cm, PhD Performed By: #### C 121, C301, C406, C4176, C116, C48, C8, C45, C400, C115 #### Refer to report for performing lab Urea nitrogen/Creatinine [Mass ratio] 9 mg/mg Invalid Interpretation Code 9-20 [facility] Comment on above: Order Comment: Testi ng performed at: [] [facility], [address] [place], [address], , Marble Finisher: rTes Cm, PhD Performed By: #### C 121, C301, C406, C4176, C116, C48, C8, C45, C400, C115 #### Refer to report for performing lab Calcium [Mass/Vol] 8.6 mg/dL Low 8.7-10.2 [facility] Comment on above: Order Comment: Testi ng performed at: [] [facility], [address] [place] [address], [address], , Marble Finisher: Tres Cm, PhD Performed By: #### C 121, C301, C406, C4176, C116, C48, C8, C45, C400, C115 #### Refer to report for performing lab CO2 [Moles/Vol] 25 mmol/L Invalid Interpretation Code [facility] Comment on above: Order Comment: Testi ng performed at: [] [facility], [address] [place] [address], [address], , Marble Finisher: Tres Cm, PhD Performed By: #### C 121, C301, C406, C4176, C116, C48, C8, C45, C400, C115 #### Refer to report for performing lab Urea nitrogen [Mass/Vol] 6 mg/dL Invalid Interpretation Code 05-07 [facility] Comment on above: Order Comment: Testi ng performed at: [] [facility], [address] [place] [address], [address], , Marble Finisher: Tres Cm, PhD Performed By: #### C 121, C301, C406, C4176, C116, C48, C8, C45, C400, C115 #### Refer to report for performing lab Glucose [Mass/Vol] 107 mg/dL High 70-99 [facility] Comment on above: Order Comment: Testi ng performed at: [] [facility], [address] [place] [address], [address], , Marble Finisher: Tres Cm, PhD Performed By: #### C 121, C301, C406, C4176, C116, C48, C8, C45, C400, C115 #### Refer to report for performing lab Potassium [Moles/Vol] 3.9 mmol/L Invalid Interpretation Code 3.5-5.2 [facility] Comment on above: Order Comment: Testi ng performed at: [] [facility], [address] [place] [address], [address], , Marble Finisher: Tres Cm, PhD Performed By: #### C 121, C301, C406, C4176, C116, C48, C8, C45, C400, C115 #### Refer to report for performing lab Chloride [Moles/Vol] 102 mmol/L Invalid Interpretation Code 96-106 [facility] Comment on above: Order Comment: Testi ng performed at: [] [facility], [address] [place] [address], [address], , Marble Finisher: Tres Cm, PhD Performed By: #### C 121, C301, C406, C4176, C116, C48, C8, C45, C400, C115 #### Refer to report for performing lab Sodium [Moles/Vol] 137 mmol/L Invalid Interpretation Code 134-144 [facility] Comment on above: Order Comment: Testi ng performed at: [] [facility], [address] [place] [address], [address], , Marble Finisher: Tres Cm, PhD Performed By: #### C 121, C301, C406, C4176, C116, C48, C8, C45, C400, C115 #### Refer to report for performing lab CBC with differential (COPC) on 04-05-2023 Basophils (Bld) [#/Vol] 0.1 10*3/uL Invalid Interpretation Code 0.0-0.2 [facility] Comment on above: Order Comment: Testi ng performed at: [] [facility], [address], , Marble Finisher: Tres Cm, PhD Performed By: #### C 121, C301, C406, C4176, C116, C48, C8, C45, C400, C115 #### Refer to report for performing lab Basophils/100 WBC (Bld) 1 % Invalid Interpretation Code Not Estab. [facility] Comment on above: Order Comment: Testi ng performed at: [] [facility], [address] [place] [address], [address], , Marble Finisher: Tres Cm, PhD Performed By: #### C 121, C301, C406, C4176, C116, C48, C8, C45, C400, C115 #### Refer to report for performing lab Eosinophils (Bld) [#/Vol] 0.4 10*3/uL Invalid Interpretation Code 0.0-0.4 [facility] Comment on above: Order Comment: Testi ng performed at: [] [facility], [address] [place] [address], [address], , Marble Finisher: Tres Cm, PhD Performed By: #### C 121, C301, C406, C4176, C116, C48, C8, C45, C400, C115 #### Refer to report for performing lab Eosinophils/100 WBC (Bld) 9 % Invalid Interpretation Code Not Estab. [facility] Comment on above: Order Comment: Testi ng performed at: [] [facility], [address] [place] [address], [address], , Marble Finisher: Tres Cm, PhD Performed By: #### C 121, C301, C406, C4176, C116, C48, C8, C45, C400, C115 #### Refer to report for performing lab Erythrocyte distribution width (RBC) [Ratio] 16.6 % High 11.6-15.4 [facility] Comment on above: Order Comment: Testi ng performed at: [] [facility], [address] [place] [address], [address], , Marble Finisher: Tres Cm, PhD Performed By: #### C 121, C301, C406, C4176, C116, C48, C8, C45, C400, C115 #### Refer to report for performing lab Hematocrit (Bld) [Volume fraction] 38.0 % Invalid Interpretation Code 37.5-51.0 [facility] Comment on above: Order Comment: Testi ng performed at: [] [facility], [address] [place] [address], [address], , Marble Finisher: Tres Cm, PhD Performed By: #### C 121, C301, C406, C4176, C116, C48, C8, C45, C400, C115 #### Refer to report for performing lab Hematology Comments: Note: Invalid Interpretation Code [facility] Comment on above: Order Comment: Testi ng performed at: [] [facility], [address] [place] [address], [address], , Marble Finisher: Tres Cm, PhD Result Comment: Veri fied by microscopic examination. Performed By: #### C 121, C301, C406, C4176, C116, C48, C8, C45, C400, C115 #### Refer to report for performing lab Hemoglobin (Bld) [Mass/Vol] 12.8 g/dL Low 13.0-17.7 [facility] Comment on above: Order Comment: Testi ng performed at: [] [facility], [address] [place] [address], [address], , Marble Finisher: Tres Cm, PhD Performed By: #### C 121, C301, C406, C4176, C116, C48, C8, C45, C400, C115 #### Refer to report for performing lab Immature Grans (Abs) 0.0 x10E3/uL Invalid Interpretation Code 0.0-0.1 [facility] Comment on above: Order Comment: Testi ng performed at: [] [facility], [address] [place] [address], [address], , Marble Finisher: Tres Cm, PhD Performed By: #### C 121, C301, C406, C4176, C116, C48, C8, C45, C400, C115 #### Refer to report for performing lab Immature granulocytes/100 WBC (Bld) 0 % Invalid Interpretation Code Not Estab. [facility] Comment on above: Order Comment: Testi ng performed at: [] [facility], [address] [place] [address], [address], , Marble Finisher: Tres Cm, PhD Performed By: #### C 121, C301, C406, C4176, C116, C48, C8, C45, C400, C115 #### Refer to report for performing lab Lymphocytes (Bld) [#/Vol] 1.1 10*3/uL Invalid Interpretation Code 0.7-3.1 [facility] Comment on above: Order Comment: Testi ng performed at: [] [facility], [address] [place] [address], [address], , Marble Finisher: Tres Cm, PhD Performed By: #### C 121, C301, C406, C4176, C116, C48, C8, C45, C400, C115 #### Refer to report for performing lab Lymphocytes/100 WBC (Bld) 24 % Invalid Interpretation Code Not Estab. [facility] Comment on above: Order Comment: Testi ng performed at: [] [facility], [address] [place] [address], [address], , Marble Finisher: Tres Cm, PhD Performed By: #### C 121, C301, C406, C4176, C116, C48, C8, C45, C400, C115 #### Refer to report for performing lab MCH (RBC) [Entitic mass] 28.6 pg Invalid Interpretation Code 26.6-33.0 [facility] Comment on above: Order Comment: Testi ng performed at: [] [address], [address], , Marble Finisher: Tres Cm, PhD Performed By: #### C 121, C301, C406, C4176, C116, C48, C8, C45, C400, C115 #### Refer to report for performing lab MCHC (RBC) [Mass/Vol] 33.7 g/dL Invalid Interpretation Code 31.5-35.7 [facility] Comment on above: Order Comment: Testi ng performed at: [] [facility], [address] [place] [address], [address], , Marble Finisher: Tres Cm, PhD Performed By: #### C 121, C301, C406, C4176, C116, C48, C8, C45, C400, C115 #### Refer to report for performing lab MCV (RBC) [Entitic vol] 85 fL Invalid Interpretation Code 79-97 [facility] Comment on above: Order Comment: Testi ng performed at: [] [facility], [address] [place] [address], [address], , Marble Finisher: Tres Cm, PhD Performed By: #### C 121, C301, C406, C4176, C116, C48, C8, C45, C400, C115 #### Refer to report for performing lab Monocytes (Bld) [#/Vol] 0.7 10*3/uL Invalid Interpretation Code 0.1-0.9 [facility] Comment on above: Order Comment: Testi ng performed at: [] [facility], [address] [place] [address], [address], , Marble Finisher: Tres Cm, PhD Performed By: #### C 121, C301, C406, C4176, C116, C48, C8, C45, C400, C115 #### Refer to report for performing lab Monocytes/100 WBC (Bld) 15 % Invalid Interpretation Code Not Estab. [facility] Comment on above: Order Comment: Testi ng performed at: [] [facility], [address] [place] [address], [address], , Marble Finisher: Tres Cm, PhD Performed By: #### C 121, C301, C406, C4176, C116, C48, C8, C45, C400, C115 #### Refer to report for performing lab Neutrophils (Absolute) 2.5 x10E3/uL Invalid Interpretation Code 1.4-7.0 [facility] Comment on above: Order Comment: Testi ng performed at: [] [facility], [address] [place] [address], [address], , Marble Finisher: Tres Cm, PhD Performed By: #### C 121, C301, C406, C4176, C116, C48, C8, C45, C400, C115 #### Refer to report for performing lab Neutrophils/100 WBC (Bld) 51 % Invalid Interpretation Code Not Estab. [facility] Comment on above: Order Comment: Testi ng performed at: [] [facility], [address] [place] [address], [address], , Marble Finisher: Tres Cm, PhD Performed By: #### C 121, C301, C406, C4176, C116, C48, C8, C45, C400, C115 #### Refer to report for performing lab Platelets (Bld) [#/Vol] 81 10*3/uL Critically low 150-450 [facility] Comment on above: Order Comment: Testi ng performed at: [] [facility], [address] [place] [address], [address], , Marble Finisher: Tres Cm, PhD Result Comment: Plat elet count verified by examination of peripheral blood smear. Performed By: #### C 121, C301, C406, C4176, C116, C48, C8, C45, C400, C115 #### Refer to report for performing lab RBC (Bld) [#/Vol] 4.47 10*6/uL Invalid Interpretation Code 4.14-5.80 [facility] Comment on above: Order Comment: Testi ng performed at: [] [facility], [address] [place] [address], [address], , Marble Finisher: Tres Cm, PhD Performed By: #### C 121, C301, C406, C4176, C116, C48, C8, C45, C400, C115 #### Refer to report for performing lab WBC (Bld) [#/Vol] 4.8 10*3/uL Invalid Interpretation Code 3.4-10.8 [facility] Comment on above: Order Comment: Testi ng performed at: [] [facility], [address] [place] [address], [address], , Marble Finisher: Tres Cm, PhD Result Comment: Ve rified by repeat analysis Performed By: #### C 121, C301, C406, C4176, C116, C48, C8, C45, C400, C115 #### Refer to report for performing lab GGT (COPC)on 04-05-2023 Gamma glutamyl transferase [Catalytic activity/Vol] 47 U/L Invalid Interpretation Code 0-65 [facility] Comment on above: Order Comment: Testi ng performed at: [] [facility], [address] [place], [address], , Marble Finisher: Tres Cm, PhD Performed By: #### C 121, C301, C406, C4176, C116, C48, C8, C45, C400, C115 #### Refer to report for performing lab Hepatic Panel (COPC)on 04-05 Bilirubin.indirect [Mass/Vol] 0.68 mg/dL High 0.00-0.40 [facility] Comment on above: Order Comment: Testi ng performed at: [] [facility], [address] [place] [address], [address], , Marble Finisher: Tres Cm, PhD Performed By: #### C 121, C301, C406, C4176, C116, C48, C8, C45, C400, C115 #### Refer to report for performing lab ALT [Catalytic activity/Vol] 74 U/L High 0-44 [facility] Comment on above: Order Comment: Testi ng performed at: [] [facility], [address] [place] [address], [address], , Marble Finisher: Tres Cm, PhD Performed By: #### C 121, C301, C406, C4176, C116, C48, C8, C45, C400, C115 #### Refer to report for performing lab ALP [Catalytic activity/Vol] 180 U/L High 44-121 [facility] Comment on above: Order Comment: Testi ng performed at: [] [facility], [address] [place] [address], [address], , Marble Finisher: Tres Cm, PhD Performed By: #### C 121, C301, C406, C4176, C116, C48, C8, C45, C400, C115 #### Refer to report for performing lab AST [Catalytic activity/Vol] 89 U/L High 0-40 [facility] Comment on above: Order Comment: Testi ng performed at: [] [facility], [address] [place] [address], [address], , Marble Finisher: Tres Cm, PhD Performed By: #### C 121, C301, C406, C4176, C116, C48, C8, C45, C400, C115 #### Refer to report for performing lab Bilirubin [Mass/Vol] 1.6 mg/dL High 0.0-1.2 [facility] Comment on above: Order Comment: Testi ng performed at: [] [facility], [address] [place], [place] [address], [address], , Marble Finisher: Tres mC, PhD Performed By: #### C 121, C301, C406, C4176, C116, C48, C8, C45, C400, C115 #### Refer to report for performing lab Albumin [Mass/Vol] 3.0 g/dL Low 4.0-5.0 [facility] Comment on above: Order Comment: Testi ng performed at: [] [facility], [employer] [place] [address], [address], , Marble Finisher: Tres Cm, PhD Performed By: #### C 121, C301, C406, C4176, C116, C48, C8, C45, C400, C115 #### Refer to report for performing lab Protein [Mass/Vol] 7.1 g/dL Invalid Interpretation Code 6.0-8.5 [facility] Comment on above: Order Comment: Testi ng performed at: [] [facility], [employer] [place] [address], [address], , Marble Finisher: Tres Cm, PhD Performed By: #### C 121, C301, C406, C4176, C116, C48, C8, C45, C400, C115 #### Refer to report for performing lab HgbA1C ([facility])on 04-05-2023 HbA1c (Bld) [Mass fraction] 6.8 % High 4.8-5.6 [facility] [place] [facility] Comment on above: Order Comment: Testi ng performed at: [] [facility], [employer] [place], [place], [address], , Marble Finisher: Tres Cm, PhD Result Comment: Pred iabetes: [...] [] [facility], [address] [place] [address], [address], , Marble Finisher: Tres Cm, PhD Performed By: #### C 121, C301, C406, C4176, C116, C48, C8, C45, C400, C115 #### Refer to report for performing lab Phosphorus (COPC)on 04-05-20 23 Phosphate [Mass/Vol] 3.8 mg/dL Invalid Interpretation Code 2.8-4.1 [facility] Comment on above: Order Comment: Testi ng performed at: [] [facility], [address] [place] [address], [address], , Marble Finisher: Tres Cm, PhD Performed By: #### C 121, C301, C406, C4176, C116, C48, C8, C45, C400, C115 #### Refer to report for performing lab Lipid Panel (COPC)on 023 Cholesterol, Total Test Not Performed. Normal [facility] Comment on above: Order Comment: Testi ng performed at: [] [facility], [address] [place] [address], [address], , Marble Finisher: Tres Cm, PhD Result Comment: Requ est [...] Order Comment: Testi ng performed at: [] [facility], [address] [place] [address], [address], , Marble Finisher: Tres Cm, PhD Result Comment: Test not performed Performed By: #### C 121, C301, C406, C4176, C116, C48, C8, C45, C400, C115 #### Refer to report for performing lab Triglycerides Test Not Performed. Normal [facility] Comment on above: Order Comment: Testi ng performed at: [] [facility], [address] [place] [address], [address], , Marble Finisher: Tres Cm, PhD Result Comment: Test not performed Performed By: #### C 121, C301, C406, C4176, C116, C48, C8, C45, C400, C115 #### Refer to report for performing lab VLDL Cholesterol Elliott Test Not Performed. Normal [facility] Comment on above: Order Comment: Testi ng performed at: [] [facility], [address] [place] [address], [address], , Marble Finisher: Tres Cm, PhD Result Comment: Unab le to calculate result since non-numeric result obtained for component test. Performed By: #### C 121, C301, C406, C4176, C116, C48, C8, C45, C400, C115 #### Refer to report for performing lab Written Authorizationon 03-15 Written Authorization Comment Normal [facility] Comment on above: Order Comment: Testi ng performed at: [] [facility], [address] [place] [address], [address], , Marble Finisher: Tres Cm, PhD Result Comment: Writ ten Authorization Received. Authorization received from Written Request 04-12-2023 Logged by Danny Bunn Performed By: #### C 121, C301, C406, C4176, C116, C48, C8, C45, C400, C115 #### Refer to report for performing lab Marissa 02-16-2023 Esophagogastroduodenosc opy [facility] GI Patient [...] was normal. Procedure Code(s): --- Professional --- 25970, Esophagogastroduodenosc opy, flexible, transoral; diagnostic, including collection of specimen(s) by brushing or washing, when performed (separate procedure) Diagnosis Code(s): --- Professional --- I85.00, Esophageal varices without bleeding K76.6, Portal hypertension K31.89, Other diseases of stomach and duodenum K31.819, Angiodysplasia of stomach and duodenum without bleeding CPT copyright 2020 [employer]. All rights reserved. The codes documented in this report are preliminary and upon economics instructor review may be revised to meet current compliance requirements. MD VINCENT Chiang MD 02/16/2023 9:28:58 AM This report has been signed electronically. Estimated Blood Loss: Estimated blood loss: none. Number of Addenda: 0 Note Initiated On: 02/16/2023 9:03 AM Total Procedure Duration Time 0 hours 2 minutes 20 seconds [address] [place] [address] IMPRESSION: - Z-line regular, 40 cm from [...] endoscopy in 6 months for surveillance. Normal [facility] EGD Anesthesia - MAC; [facility] E [...] upper endoscopy in 6 months for surveillance. [facility] GI Patient Name: Leon Rider Procedure [...] was normal. Procedure Code(s): --- Professional --- 28926, Esophagogastroduodenosc opy, flexible, transoral; diagnostic, including collection of specimen(s) by brushing or washing, when performed (separate procedure) Diagnosis Code(s): --- Professional --- I85.00, Esophageal varices without bleeding K76.6, Portal hypertension K31.89, Other diseases of stomach and duodenum K31.819, Angiodysplasia of stomach and duodenum without bleeding CPT copyright 2020 [employer]. All rights reserved. The codes documented in this report are preliminary and upon economics instructor review may be revised to meet current compliance requirements. MD VINCENT Chiang MD 02/16/2023 9:28:58 AM This report has been signed electronically. Estimated Blood Loss: Estimated blood loss: none. Number of Addenda: 0 Note Initiated On: 02/16/2023 9:03 AM Total Procedure Duration Time 0 hours 2 minutes [address] seconds [address] [place] [address] [facility] Vincent Moses MD - 02/16/2023 [facility] GI Patient [...] was normal. Procedure Code(s): --- Professional --- 30561, Esophagogastroduodenosc opy, flexible, transoral; diagnostic, including collection of specimen(s) by brushing or washing, when performed (separate procedure) Diagnosis Code(s): --- Professional --- I85.00, Esophageal varices without bleeding K76.6, Portal hypertension K31.89, Other diseases of stomach and duodenum K31.819, Angiodysplasia of stomach and duodenum without bleeding CPT copyright 2020 [employer]. All rights reserved. The codes documented in this report are preliminary and upon economics instructor review may be revised to meet current compliance requirements. MD VINCENT Chiang MD 02/16/2023 9:28:58 AM This report has been signed electronically. Estimated Blood Loss: Estimated blood loss: none. Number of Addenda: 0 Note Initiated On: 02/16/2023 9:03 AM Total Procedure Duration Time 0 hours 2 minutes [address] seconds [address] [place] [address] IMPRESSION: - Z-line regular, 40 cm from [...] upper endoscopy in 6 months for surveillance. [facility] Radiology Study observation (narrative) [employer] Glucose Auto test strip (Bld ) [Mass/Vol]on 02-16-2023 Glucose [Mass/Vol] 158 mg/dL High 70-99 [facility] Comment on above: Performed By: #### 2 340-8 #### [facility] [address] [place] [address] Glucose [Mass/Vol] 158 mg/dL High 70 - 99 mg/dL [employer] Interpretation and review of laboratory results Abnormal [facility] EGDon 12-23-2022 Esophagogastroduodenosc opy [facility] GI Patient [...] oxygen saturations were monitored continuously. The GIF-[id number] Endoscope was introduced through the mouth, and [...] was normal. Procedure Code(s): --- Professional --- 86529, Esophagogastroduodenosc opy, flexible, transoral; with band ligation of esophageal/gastric varices Diagnosis Code(s): --- Professional --- I85.00, Esophageal varices without bleeding K76.6, Portal hypertension K31.89, Other diseases of stomach and duodenum CPT copyright 2020 [employer]. All rights reserved. The codes documented in this report are preliminary and upon economics instructor review may be revised to meet current compliance requirements. MD Paul Khan MD 12/23/2022 10:36:45 AM This report has been signed electronically. Estimated Blood Loss: Estimated blood loss: none. Number of Addenda: 0 Note Initiated On: 12/23/2022 10:12 AM Total Procedure Duration Time 0 hours 6 minutes 30 seconds [address] [place] [address] IMPRESSION: - Grade II esophageal varices. Completely [...] to GI office as previously scheduled. Normal [facility] EGD Anesthesia - [facility]; [facility] E NDOSCOPYon 12-23-2022 - Grade II [...] Return to GI office as previously scheduled. [facility] GI Patient Name: Leon Rider Procedure [...] oxygen saturations were monitored continuously. The GIF-H190 [id number] Endoscope was introduced through the mouth, and [...] was normal. Procedure Code(s): --- Professional --- 50504, Esophagogastroduodenosc opy, flexible, transoral; with band ligation of esophageal/gastric varices Diagnosis Code(s): --- Professional --- I85.00, Esophageal varices without bleeding K76.6, Portal hypertension K31.89, Other diseases of stomach and duodenum CPT copyright 2020 [employer]. All rights reserved. The codes documented in this report are preliminary and upon economics instructor review may be revised to meet current compliance requirements. MD Paul Khan MD 12/23/2022 10:36:45 AM This report has been signed elect (more content not included)... [facility] Paul Mishra V - 12/23/2022 [facility] GI Patient [...] oxygen saturations were monitored continuously. The GIF-H190 [id number] Endoscope was introduced through the mouth, and [...] was normal. Procedure Code(s): --- Professional --- 08849, Esophagogastroduodenosc opy, flexible, transoral; with band ligation of esophageal/gastric varices Diagnosis Code(s): --- Professional --- I85.00, Esophageal varices without bleeding K76.6, Portal hypertension K31.89, Other diseases of stomach and duodenum CPT copyright 2020 [employer]. All rights reserved. The codes documented in this report are preliminary and upon economics instructor review may be revised to meet current compliance requirements. MD Paul Khan MD 12/23/2022 10:36:45 AM This report has been signed electronically. Estimated Blood Loss: Estimated blood loss: none. Number of Addenda: 0 Note Initiated On: 12/23/2022 10:12 AM Total Procedure Duration Time 0 hours 6 minutes 30 seconds [address] [place] [address] IMPRESSION: - Grade II esophageal varices. Completely [...] Return to GI office as previously scheduled. [facility] Radiology Study observation (narrative) [employer] Glucose Auto test strip (Bld ) [Mass/Vol]on 12-23-2022 Glucose [Mass/Vol] 135 mg/dL High 70-99 [facility] Comment on above: Performed By: #### 2 340-8 #### [facility] [address] [place] [address] Glucose [Mass/Vol] 135 mg/dL High 70 - 99 mg/dL [employer] Interpretation and review of laboratory results Abnormal [facility] Basic Metabolic Panel (COPC) on 11-21-2022 CO2 [Moles/Vol] 24 mmol/L Invalid Interpretation Code 20-29 [facility] Comment on above: Order Comment: Testi ng performed at: [CB] [facility], [address] [place] [address], [address], , Marble Finisher: Tres Cm, PhD Performed By: #### C 121, C301, C406, C4176, C116, C48, C8, C45, C400, C115 #### Refer to report for performing lab Creatinine [Mass/Vol] 0.63 mg/dL Low 0.76-1.27 [facility] Comment on above: Order Comment: Testi ng performed at: [CB] [facility], [address] [place] [address], [place], [address], , Marble Finisher: Tres Cm, PhD Performed By: #### C 121, C301, C406, C4176, C116, C48, C8, C45, C400, C115 #### Refer to report for performing lab GFR/1.73 sq M.predicted among non-blacks MDRD (S/P/Bld) [Vol rate/Area] 120 mL/min/{1.73_m2} Invalid Interpretation Code >59 [facility] Comment on above: Order Comment: Testi ng performed at: [CB] [facility], [employer] [place], [address], , Marble Finisher: Tres Cm, PhD Performed By: #### C 121, C301, C406, C4176, C116, C48, C8, C45, C400, C115 #### Refer to report for performing lab Potassium [Moles/Vol] 3.6 mmol/L Invalid Interpretation Code 3.5-5.2 [facility] Comment on above: Order Comment: Testi ng performed at: [] [facility], [address] [place] [address], [address], , Marble Finisher: Tres Cm, PhD Performed By: #### C 121, C301, C406, C4176, C116, C48, C8, C45, C400, C115 #### Refer to report for performing lab Urea nitrogen [Mass/Vol] 5 mg/dL Low 6-24 [facility] Comment on above: Order Comment: Testi ng performed at: [] [facility], [address] [place] [address], [address], , Marble Finisher: Tres Cm, PhD Performed By: #### C 121, C301, C406, C4176, C116, C48, C8, C45, C400, C115 #### Refer to report for performing lab Urea nitrogen/Creatinine [Mass ratio] 8 mg/mg Low 9-20 [facility] Comment on above: Order Comment: Testi ng performed at: [] [facility], [address] [place] [address], [address], , Marble Finisher: Tres Cm, PhD Performed By: #### C 121, C301, C406, C4176, C116, C48, C8, C45, C400, C115 #### Refer to report for performing lab Glucose [Mass/Vol] 108 mg/dL High 70-99 [facility] Comment on above: Order Comment: Testi ng performed at: [] [facility], [address] [place] [address], [address], , Marble Finisher: Tres Cm, PhD Performed By: #### C 121, C301, C406, C4176, C116, C48, C8, C45, C400, C115 #### Refer to report for performing lab Calcium [Mass/Vol] 8.6 mg/dL Low 8.7-10.2 [facility] Comment on above: Order Comment: Testfito ng performed at: [] [facility], [address] [place] [address], [address], , Marble Finisher: Tres Cm, PhD Performed By: #### C 121, C301, C406, C4176, C116, C48, C8, C45, C400, C115 #### Refer to report for performing lab Sodium [Moles/Vol] 136 mmol/L Invalid Interpretation Code 134-144 [facility] Comment on above: Order Comment: Testfito ng performed at: [] [facility], [address] [place] [address], [address], , Marble Finisher: Tres Cm, PhD Performed By: #### C 121, C301, C406, C4176, C116, C48, C8, C45, C400, C115 #### Refer to report for performing lab Chloride [Moles/Vol] 100 mmol/L Invalid Interpretation Code 96-106 [facility] Comment on above: Order Comment: Testfito ng performed at: [] [facility], [address] [place] [address], [address], , Marble Finisher: Tres Cm, PhD Performed By: #### C 121, C301, C406, C4176, C116, C48, C8, C45, C400, C115 #### Refer to report for performing lab CBC with differential (COPC) on 11-21-2022 Basophils (Bld) [#/Vol] 0.1 10*3/uL Invalid Interpretation Code 0.0-0.2 [facility] Comment on above: Order Comment: Testi ng performed at: [CB] [facility], [address] [place], [address], , Marble Finisher: Tres Cm, PhD Performed By: #### C 121, C301, C406, C4176, C116, C48, C8, C45, C400, C115 #### Refer to report for performing lab Basophils/100 WBC (Bld) 2 % Invalid Interpretation Code Not Estab. [facility] Comment on above: Order Comment: Testi ng performed at: [] [facility], [address] [place] [address], [address], , Marble Finisher: Tres Cm, PhD Performed By: #### C 121, C301, C406, C4176, C116, C48, C8, C45, C400, C115 #### Refer to report for performing lab Eosinophils (Bld) [#/Vol] 0.4 10*3/uL Invalid Interpretation Code 0.0-0.4 [facility] Comment on above: Order Comment: Testi ng performed at: [] [facility], [address] [place], [address], , Marble Finisher: Tres Cm, PhD Performed By: #### C 121, C301, C406, C4176, C116, C48, C8, C45, C400, C115 #### Refer to report for performing lab Eosinophils/100 WBC (Bld) 8 % Invalid Interpretation Code Not Estab. [facility] Comment on above: Order Comment: Testi ng performed at: [] [facility], [address] [place], [address], , Marble Finisher: Tres Cm, PhD Performed By: #### C 121, C301, C406, C4176, C116, C48, C8, C45, C400, C115 #### Refer to report for performing lab Erythrocyte distribution width (RBC) [Ratio] 14.9 % Invalid Interpretation Code 11.6-15.4 [facility] Comment on above: Order Comment: Testi ng performed at: [] [facility], [address] [place] [address], [address], , Marble Finisher: Tres Cm, PhD Performed By: #### C 121, C301, C406, C4176, C116, C48, C8, C45, C400, C115 #### Refer to report for performing lab Hematocrit (Bld) [Volume fraction] 38.1 % Invalid Interpretation Code 37.5-51.0 [facility] Comment on above: Order Comment: Testi ng performed at: [] [facility], [address] [place] [address], [address], , Marble Finisher: Tres Cm, PhD Performed By: #### C 121, C301, C406, C4176, C116, C48, C8, C45, C400, C115 #### Refer to report for performing lab Hematology Comments: Note: Invalid Interpretation Code [facility] Comment on above: Order Comment: Testi ng performed at: [] [facility], [address] [place] [address], [address], , Marble Finisher: Tres Cm, PhD Result Comment: Veri fied by microscopic examination. Performed By: #### C 121, C301, C406, C4176, C116, C48, C8, C45, C400, C115 #### Refer to report for performing lab Hemoglobin (Bld) [Mass/Vol] 12.9 g/dL Low 13.0-17.7 [facility] Comment on above: Order Comment: Testi ng performed at: [] [facility], [address] [place] [address], [address], , Marble Finisher: Tres Cm, PhD Performed By: #### C 121, C301, C406, C4176, C116, C48, C8, C45, C400, C115 #### Refer to report for performing lab Immature Grans (Abs) 0.0 x10E3/uL Invalid Interpretation Code 0.0-0.1 [facility] Comment on above: Order Comment: Testi ng performed at: [] [address], [address], , Marble Finisher: Tres Cm, PhD Performed By: #### C 121, C301, C406, C4176, C116, C48, C8, C45, C400, C115 #### Refer to report for performing lab Immature granulocytes/100 WBC (Bld) 0 % Invalid Interpretation Code Not Estab. [facility] Comment on above: Order Comment: Testi ng performed at: [] [address], [address], , Marble Finisher: Tres Cm, PhD Performed By: #### C 121, C301, C406, C4176, C116, C48, C8, C45, C400, C115 #### Refer to report for performing lab Lymphocytes (Bld) [#/Vol] 1.0 10*3/uL Invalid Interpretation Code 0.7-3.1 [facility] Comment on above: Order Comment: Testi ng performed at: [] [facility], [address] [place] [address], [address], , Marble Finisher: Tres Cm, PhD Performed By: #### C 121, C301, C406, C4176, C116, C48, C8, C45, C400, C115 #### Refer to report for performing lab Lymphocytes/100 WBC (Bld) 23 % Invalid Interpretation Code Not Estab. [facility] Comment on above: Order Comment: Testi ng performed at: [] [facility], [address] [place] [address], [address], , Marble Finisher: Tres Cm, PhD Performed By: #### C 121, C301, C406, C4176, C116, C48, C8, C45, C400, C115 #### Refer to report for performing lab MCH (RBC) [Entitic mass] 29.2 pg Invalid Interpretation Code 26.6-33.0 [facility] Comment on above: Order Comment: Testi ng performed at: [] [facility], [address] [place] [address], [address], , Marble Finisher: Tres Cm, PhD Performed By: #### C 121, C301, C406, C4176, C116, C48, C8, C45, C400, C115 #### Refer to report for performing lab MCHC (RBC) [Mass/Vol] 33.9 g/dL Invalid Interpretation Code 31.5-35.7 [facility] Comment on above: Order Comment: Testi ng performed at: [] [facility], [address] [place] [address], [address], , Marble Finisher: Tres Cm, PhD Performed By: #### C 121, C301, C406, C4176, C116, C48, C8, C45, C400, C115 #### Refer to report for performing lab MCV (RBC) [Entitic vol] 86 fL Invalid Interpretation Code 79-97 [facility] Comment on above: Order Comment: Testi ng performed at: [] [facility], [address] [place] [address], [address], , Marble Finisher: Tres Cm, PhD Performed By: #### C 121, C301, C406, C4176, C116, C48, C8, C45, C400, C115 #### Refer to report for performing lab Monocytes (Bld) [#/Vol] 0.7 10*3/uL Invalid Interpretation Code 0.1-0.9 [facility] Comment on above: Order Comment: Testi ng performed at: [] [facility], [address] [place], [address], , Marble Finisher: Tres Cm, PhD Performed By: #### C 121, C301, C406, C4176, C116, C48, C8, C45, C400, C115 #### Refer to report for performing lab Monocytes/100 WBC (Bld) 15 % Invalid Interpretation Code Not Estab. [facility] Comment on above: Order Comment: Testi ng performed at: [] [facility], [address] [place] [address], [address], , Marble Finisher: Tres Cm, PhD Performed By: #### C 121, C301, C406, C4176, C116, C48, C8, C45, C400, C115 #### Refer to report for performing lab Neutrophils (Absolute) 2.2 x10E3/uL Invalid Interpretation Code 1.4-7.0 [facility] Comment on above: Order Comment: Testi ng performed at: [] [facility], [address] [place] [address], [address], , Marble Finisher: Tres Cm, PhD Performed By: #### C 121, C301, C406, C4176, C116, C48, C8, C45, C400, C115 #### Refer to report for performing lab Neutrophils/100 WBC (Bld) 52 % Invalid Interpretation Code Not Estab. [facility] Comment on above: Order Comment: Testi ng performed at: [] [facility], [address] [place] [address], [address], , Marble Finisher: Tres Cm, PhD Performed By: #### C 121, C301, C406, C4176, C116, C48, C8, C45, C400, C115 #### Refer to report for performing lab Platelets (Bld) [#/Vol] 84 10*3/uL Critically low 150-450 [facility] Comment on above: Order Comment: Testi ng performed at: [] [facility], [address] [place] [address], [address], , Marble Finisher: Ters Cm, PhD Result Comment: Plat elet count verified by examination of peripheral blood smear. Performed By: #### C 121, C301, C406, C4176, C116, C48, C8, C45, C400, C115 #### Refer to report for performing lab RBC (Bld) [#/Vol] 4.42 10*6/uL Invalid Interpretation Code 4.14-5.80 [facility] Comment on above: Order Comment: Testi ng performed at: [] [facility], [address] [place] [address], [address], , Marble Finisher: Tres Cm, PhD Performed By: #### C 121, C301, C406, C4176, C116, C48, C8, C45, C400, C115 #### Refer to report for performing lab WBC (Bld) [#/Vol] 4.3 10*3/uL Invalid Interpretation Code 3.4-10.8 [facility] Comment on above: Order Comment: Testi ng performed at: [] [facility], [address] [place] [address], [address], , Marble Finisher: Tres Cm, PhD Result Comment: Ve rified by repeat analysis Performed By: #### C 121, C301, C406, C4176, C116, C48, C8, C45, C400, C115 #### Refer to report for performing lab GGT (COPC)on 11-21-2022 Gamma glutamyl transferase [Catalytic activity/Vol] 59 U/L Invalid Interpretation Code 0-65 [facility] Comment on above: Order Comment: Testi ng performed at: [] [facility], [address] [place], [address], , Marble Finisher: Tres Cm, PhD Performed By: #### C 121, C301, C406, C4176, C116, C48, C8, C45, C400, C115 #### Refer to report for performing lab Hepatic Panel (COPC)on 11-21 Bilirubin.indirect [Mass/Vol] 0.65 mg/dL High 0.00-0.40 [facility] Comment on above: Order Comment: Testi ng performed at: [] [address], [address], , Marble Finisher: Tres Cm, PhD Performed By: #### C 121, C301, C406, C4176, C116, C48, C8, C45, C400, C115 #### Refer to report for performing lab AST [Catalytic activity/Vol] 72 U/L High 0-40 [facility] Comment on above: Order Comment: Testi ng performed at: [] [address], [address], , Marble Finisher: Tres Cm, PhD Performed By: #### C 121, C301, C406, C4176, C116, C48, C8, C45, C400, C115 #### Refer to report for performing lab ALP [Catalytic activity/Vol] 188 U/L High 44-121 [facility] Comment on above: Order Comment: Testi ng performed at: [] [address], [address], , Marble Finisher: Tres Cm, PhD Performed By: #### C 121, C301, C406, C4176, C116, C48, C8, C45, C400, C115 #### Refer to report for performing lab ALT [Catalytic activity/Vol] 46 U/L High 0-44 [facility] Comment on above: Order Comment: Testi ng performed at: [] [address], [address], , Marble Finisher: Tres Cm, PhD Performed By: #### C 121, C301, C406, C4176, C116, C48, C8, C45, C400, C115 #### Refer to report for performing lab Albumin [Mass/Vol] 3.1 g/dL Low 4.0-5.0 [facility] Comment on above: Order Comment: Testi ng performed at: [] [facility], [address] [place] [address], [address], , Marble Finisher: Tres Cm, PhD Performed By: #### C 121, C301, C406, C4176, C116, C48, C8, C45, C400, C115 #### Refer to report for performing lab Bilirubin [Mass/Vol] 1.7 mg/dL High 0.0-1.2 [facility] Comment on above: Order Comment: Testi ng performed at: [] [facility], [address] [place] [address], [address], , Marble Finisher: Tres Cm, PhD Performed By: #### C 121, C301, C406, C4176, C116, C48, C8, C45, C400, C115 #### Refer to report for performing lab Protein [Mass/Vol] 7.4 g/dL Invalid Interpretation Code 6.0-8.5 [facility] Comment on above: Order Comment: Testi ng performed at: [] [facility], [address] [place] [address], [address], , Marble Finisher: Tres Cm, PhD Performed By: #### C 121, C301, C406, C4176, C116, C48, C8, C45, C400, C115 #### Refer to report for performing lab HgbA1C (COPC)on 11-21-2022 HbA1c (Bld) [Mass fraction] 6.6 % High 4.8-5.6 [facility] Comment on above: Order Comment: Testi ng performed at: [] [facility], [address] [place] [address], [address], , Marble Finisher: Tres Cm, PhD Result Comment: Pred iabetes: [...] Order Comment: Testi ng performed at: [] [facility], [address] [place] [address], [address], , Marble Finisher: Tres Cm, PhD Performed By: #### C 121, C301, C406, C4176, C116, C48, C8, C45, C400, C115 #### Refer to report for performing lab LDL Chol Calc ([facility]) 151 mg/dL High 0-99 [facility] Comment on above: Order Comment: Testi ng performed at: [Amprius] [facility], [address] [place] [address], [address], , Marble Finisher: Tres Cm, PhD Performed By: #### C 121, C301, C406, C4176, C116, C48, C8, C45, C400, C115 #### Refer to report for performing lab VLDL Cholesterol Elliott 25 mg/dL Invalid Interpretation Code 5-40 [facility] Comment on above: Order Comment: Testi ng performed at: [Amprius] [facility], [address] [place] [address], [address], , Marble Finisher: Tres Cm, PhD Performed By: #### C 121, C301, C406, C4176, C116, C48, C8, C45, C400, C115 #### Refer to report for performing lab Triglyceride [Mass/Vol] 139 mg/dL Invalid Interpretation Code 0-149 [facility] Comment on above: Order Comment: Testi ng performed at: [Amprius] [facility], [address] [place] [address], [address], , Marble Finisher: Tres Cm, PhD Performed By: #### C 121, C301, C406, C4176, C116, C48, C8, C45, C400, C115 #### Refer to report for performing lab Cholesterol [Mass/Vol] 224 mg/dL High 100-199 [facility] Comment on above: Order Comment: Testi ng performed at: [CB] [facility], [address] [place], [address], , Marble Finisher: Tres Cm, PhD Performed By: #### C 121, C301, C406, C4176, C116, C48, C8, C45, C400, C115 #### Refer to report for performing lab Magnesium ([facility])on Magnesium [Mass/Vol] 2.0 mg/dL Invalid Interpretation Code 1.6-2.3 [facility] Comment on above: Order Comment: Testi ng performed at: [CB] [facility], [address] [place], [address], , Marble Finisher: Tres Cm, PhD Performed By: #### C 121, C301, C406, C4176, C116, C48, C8, C45, C400, C115 #### Refer to report for performing lab PSA, Free and Total ([facility])o n 11-21-2022 % Free PSA 50.0 % Invalid Interpretation Code [facility] Comment on above: Order Comment: Testi ng performed at: [CB] [facility], [address] [place], [address], , Marble Finisher: Tres Cm, PhD Result Comment: The table [...] Order Comment: Testi ng performed at: [] [facility], [address] [place] [address], [address], , Marble Finisher: Tres Cm, PhD Result Comment: Roch saturnino ECLIA methodology. According to the [employer], Serum PSA should decrease and [...] Order Comment: Testi ng performed at: [] [facility], [address] [place], [address], , Marble Finisher: Tres Cm, PhD Result Comment: Mike matamoros ECLIA methodology. Performed By: #### C 121, C301, C406, C4176, C116, C48, C8, C45, C400, C115 #### Refer to report for performing lab Phosphorus (COPC)on 11-21-19 23 Phosphate [Mass/Vol] 4.0 mg/dL Invalid Interpretation Code 2.8-4.1 [facility] Comment on above: Order Comment: Testi ng performed at: [] [facility], [address] [place] [address], [address], , Marble Finisher: Tres Cm, PhD Performed By: #### C 121, C301, C406, C4176, C116, C48, C8, C45, C400, C115 #### Refer to report for performing lab TSH ([facility])on 11-21-2022 TSH 1.800 uIU/mL Invalid Interpretation Code 0.450-4.50 0 [facility] Comment on above: Order Comment: Testi ng performed at: [] [facility], [address] [place] [address], [address], , Marble Finisher: Tres Cm, PhD Performed By: #### C 121, C301, C406, C4176, C116, C48, C8, C45, C400, C115 #### Refer to report for performing lab Uric Acid ([facility])on 3 Urate [Mass/Vol] 3.6 mg/dL Low 3.8-8.4 [facility] Comment on above: Order Comment: Testi ng performed at: [] [facility], [address] [place] [address], [address], , Marble Finisher: Tres Cm, PhD Result Comment: Ther apeutic target for gout patients: <6.0 Performed By: #### C 121, C301, C406, C4176, C116, C48, C8, C45, C400, C115 #### Refer to report for performing lab Urinalysis and Microscopic w / Rfx to Cx ([facility])on 11-21-2022 Bacteria None seen Invalid Interpretation Code None seen/Few [facility] Comment on above: Order Comment: Testi ng performed at: [] [facility], [address] [place] [address], [address], , Marble Finisher: Tres Cm, PhD Performed By: #### C 121, C301, C406, C4176, C116, C48, C8, C45, C400, C115 #### Refer to report for performing lab Casts None seen Invalid Interpretation Code None seen [facility] Comment on above: Order Comment: Testi ng performed at: [] [facility], [address] [place] [address], [address], , Marble Finisher: Tres Cm, PhD Performed By: #### C 121, C301, C406, C4176, C116, C48, C8, C45, C400, C115 #### Refer to report for performing lab Epithelial cells LM Ql (Urine sed) None seen Invalid Interpretation Code 0 - 10 [facility] Comment on above: Order Comment: Testi ng performed at: [] [facility], [address] [place] [address], [address], , Marble Finisher: Tres Cm, PhD Performed By: #### C 121, C301, C406, C4176, C116, C48, C8, C45, C400, C115 #### Refer to report for performing lab Mucus Threads Present Invalid Interpretation Code Not Estab. [facility] Comment on above: Order Comment: Testi ng performed at: [] [facility], [address] [place] [address], [address], , Marble Finisher: Tres Cm, PhD Performed By: #### C 121, C301, C406, C4176, C116, C48, C8, C45, C400, C115 #### Refer to report for performing lab RBC None seen Invalid Interpretation Code 0 - 2 [facility] Comment on above: Order Comment: Testi ng performed at: [] [facility], [address] [place], [address], , Marble Finisher: Tres Cm, PhD Performed By: #### C 121, C301, C406, C4176, C116, C48, C8, C45, C400, C115 #### Refer to report for performing lab WBC None seen Invalid Interpretation Code 0 - 5 [facility] Comment on above: Order Comment: Testi ng performed at: [] [facility], [address] [place] [address], [address], , Marble Finisher: Tres Cm, PhD Performed By: #### C 121, C301, C406, C4176, C116, C48, C8, C45, C400, C115 #### Refer to report for performing lab Appearance (U) Clear Invalid Interpretation Code Clear [facility] Comment on above: Order Comment: Testi ng performed at: [] [facility], [address] [place] [address], [address], , Marble Finisher: Tres Cm, PhD Performed By: #### C 121, C301, C406, C4176, C116, C48, C8, C45, C400, C115 #### Refer to report for performing lab Bilirubin Ql (U) Negative Invalid Interpretation Code Negative [facility] Comment on above: Order Comment: Testi ng performed at: [] [facility], [address] [place] [address], [address], , Marble Finisher: Tres Cm, PhD Performed By: #### C 121, C301, C406, C4176, C116, C48, C8, C45, C400, C115 #### Refer to report for performing lab Color (U) Yellow Invalid Interpretation Code Yellow [facility] Comment on above: Order Comment: Testi ng performed at: [] [address], [address], , Marble Finisher: Tres Cm, PhD Performed By: #### C 121, C301, C406, C4176, C116, C48, C8, C45, C400, C115 #### Refer to report for performing lab Glucose Ql (U) 2+ Abnormal Negative [facility] Comment on above: Order Comment: Testi ng performed at: [] [facility], [address] [place] [address], [address], , Marble Finisher: Tres Cm, PhD Performed By: #### C 121, C301, C406, C4176, C116, C48, C8, C45, C400, C115 #### Refer to report for performing lab Ketones Ql (U) Negative Invalid Interpretation Code Negative [facility] Comment on above: Order Comment: Testi ng performed at: [] [facility], [address] [place] [address], [address], , Marble Finisher: Tres Cm, PhD Performed By: #### C 121, C301, C406, C4176, C116, C48, C8, C45, C400, C115 #### Refer to report for performing lab Microscopic Examination See below: Invalid Interpretation Code [facility] Comment on above: Order Comment: Testi ng performed at: [] [facility], [address] [place] [address], [address], , Marble Finisher: Tres Cm, PhD Result Comment: Micr oscopic was indicated and was performed. Performed By: #### C 121, C301, C406, C4176, C116, C48, C8, C45, C400, C115 #### Refer to report for performing lab Nitrite, Urine Negative Invalid Interpretation Code Negative [facility] Comment on above: Order Comment: Testi ng performed at: [] [facility], [address] [place] [address], [address], , Marble Finisher: Tres Cm, PhD Performed By: #### C 121, C301, C406, C4176, C116, C48, C8, C45, C400, C115 #### Refer to report for performing lab Occult Blood Negative Invalid Interpretation Code Negative [facility] Comment on above: Order Comment: Testi ng performed at: [] [facility], [address] [place] [address], [address], , Marble Finisher: Tres Cm, PhD Performed By: #### C 121, C301, C406, C4176, C116, C48, C8, C45, C400, C115 #### Refer to report for performing lab pH (U) 6.5 [pH] Invalid Interpretation Code 5.0-7.5 [facility] Comment on above: Order Comment: Testi ng performed at: [] [facility], [address] [place] [address], [address], , Marble Finisher: Tres Cm, PhD Performed By: #### C 121, C301, C406, C4176, C116, C48, C8, C45, C400, C115 #### Refer to report for performing lab Protein Ql (U) Negative Invalid Interpretation Code Negative/T race [facility] Comment on above: Order Comment: Testi ng performed at: [] [facility], [address] [place] [address], [address], , Marble Finisher: Tres Cm, PhD Performed By: #### C 121, C301, C406, C4176, C116, C48, C8, C45, C400, C115 #### Refer to report for performing lab Specific gravity (U) [Rel density] 1.024 Invalid Interpretation Code 1.005-1.03 0 [facility] Comment on above: Order Comment: Testi ng performed at: [] [facility], [address] [place], [address], , Marble Finisher: Tres Cm, PhD Performed By: #### C 121, C301, C406, C4176, C116, C48, C8, C45, C400, C115 #### Refer to report for performing lab Urobilinogen,Semi-Qn 1.0 mg/dL Invalid Interpretation Code 0.2-1.0 [facility] Comment on above: Order Comment: Testi ng performed at: [] [facility], [address] [place] [address], [address], , Marble Finisher: Tres Cm, PhD Performed By: #### C 121, C301, C406, C4176, C116, C48, C8, C45, C400, C115 #### Refer to report for performing lab WBC Esterase Negative Invalid Interpretation Code Negative [facility] Comment on above: Order Comment: Testi ng performed at: [] [facility], [address] [place] [address], [address], , Marble Finisher: Tres Cm, PhD Performed By: #### C 121, C301, C406, C4176, C116, C48, C8, C45, C400, C115 #### Refer to report for performing lab Urine, Random, Albumin/Crea (COPC)on 11-21-2022 Alb/Creat Ratio 8 mg/g creat Invalid Interpretation Code 0-29 [facility] Comment on above: Order Comment: Testi ng performed at: [] [facility], [address] [place] [address], [address], , Marble Finisher: Tres Cm, PhD Result Comment: Norm al: [...] [] [facility], [address] [place] [address], [address], , Marble Finisher: Tres Cm, PhD Performed By: #### C 121, C301, C406, C4176, C116, C48, C8, C45, C400, C115 #### Refer to report for performing lab Creatinine, Urine 102.1 mg/dL Invalid Interpretation Code Not Estab. [facility] Comment on above: Order Comment: Testi ng performed at: [] [facility], [address] [place] [address], [place], [address], , Marble Finisher: Tres Cm, PhD Performed By: #### C 121, C301, C406, C4176, C116, C48, C8, C45, C400, C115 #### Refer to report for performing lab Urinalysis and Microscopic w / Rfx to Cx ([facility])on 11-20-2022 Microscopic Examination Comment Normal [facility] Comment on above: Order Comment: Testi ng performed at: [] [facility], [address] [place] [address], [address], , Marble Finisher: Tres Cm, PhD Result Comment: Micr oscopic follows if indicated. Performed By: #### C 121, C301, C406, C4176, C116, C48, C8, C45, C400, C115 #### Refer to report for performing lab Urinalysis Reflex Comment Normal [facility] Comment on above: Order Comment: Testi ng performed at: [] [facility], [address] [place] [address], [address], , Marble Finisher: Tres Cm, PhD Result Comment: This specimen [...] Self Edit Transcribed Date: 11/17/2022 08:37 Normal [facility] XR Abdomen Single viewon No radiographic evidence for renal stone. -------- FINAL REPORT -------- Dictated By: Mars Ortega Dictated Date: 11/17/2022 08:37 Assigned Physician: Mars Ortega Reviewed and Electronically Signed By: Mars Ortega Signed Date: 11/17/2022 08:39 Workstation ID: [id number] Transcribed By: Self Edit Transcribed Date: 11/17/2022 08:37 CleanScapesCRIBE EXAMINATION TYPE: XR ABDOMEN 1 VIEW DATE [...] By: Self Edit Transcribed Date: 11/17/2022 08:37 [employer] Radiology Study observation (narrative) [employer] XR Abdomen Single viewOrdere d By: Mars Ortega on 11-17-2022 [employer] Work Phone: EGCristóbal 10-27-2022 Esophagogastroduodenosc opy [facility] Patient Name: Leon Rider Procedure [...] The patient tolerated the procedure well. Findings: Vista-colored mucosa was present. Biopsied during prior EGD. [...] was normal. Procedure Code(s): --- Professional --- 53063, Esophagogastroduodenosc opy, flexible, transoral; with band ligation of esophageal/gastric varices Diagnosis Code(s): --- Professional --- K22.8, Other specified diseases of esophagus I85.00, Esophageal varices without bleeding K76.6, Portal hypertension K31.89, Other diseases of stomach and duodenum K31.819, Angiodysplasia of stomach and duodenum without bleeding CPT copyright 2020 [employer]. All rights reserved. The codes documented in this report are preliminary and upon economics instructor review may be revised to meet current compliance requirements. DO SUSANA Martinez DO 10/27/2022 5:51:19 PM This report has been signed electronically. Number of Addenda: 0 Estimated Blood Loss: Estimated blood loss was minimal. Total Procedure Duration Time 0 hours 9 minutes [address] [place] [address] IMPRESSION: - Vista-colored mucosa suspicious for Osborn's esophagus. - Grade [...] as pr (more content not included)... Normal [facility] EGD Anesthesia - [facility]; JUDIT Matamoros NDOSCOPYon 10-27-2022 - Vista-colored muc saúl suspicious for Osborn's esophagus. - [...] previously scheduled. - Discharge patient to home. [facility] Patient Name: Leon Rider Procedure [...] The patient tolerated the procedure well. Findings: Vista-colored mucosa was present. Biopsied during prior EGD. [...] was normal. Procedure Code(s): --- Professional --- 08909, Esophagogastroduodenosc opy, flexible, transoral; with band ligation of esophageal/gastric varices Diagnosis Code(s): --- Professional --- K22.8, Other specified diseases of esophagus I85.00, Esophageal varices without bleeding K76.6, Portal hypertension K31.89, Other diseases of stomach and duodenum K31.819, Angiodysplasia of stomach and duodenum without bleeding CPT copyright 2020 [employer]. All rights reserved. The codes documented in this report are preliminary and upon economics instructor review may be revised to meet cur (more content not included)... [facility] Susana Leblanc DO - 10/27/2022 [facility] Patient Name: Leon Rider Procedure [...] The patient tolerated the procedure well. Findings: Vista-colored mucosa was present. Biopsied during prior EGD. [...] was normal. Procedure Code(s): --- Professional --- 32358, Esophagogastroduodenosc opy, flexible, transoral; with band ligation of esophageal/gastric varices Diagnosis Code(s): --- Professional --- K22.8, Other specified diseases of esophagus I85.00, Esophageal varices without bleeding K76.6, Portal hypertension K31.89, Other diseases of stomach and duodenum K31.819, Angiodysplasia of stomach and duodenum without bleeding CPT copyright 2020 [employer]. All rights reserved. The codes documented in this report are preliminary and upon economics instructor review may be revised to meet current compliance requirements. DO SUSANA Martinez DO 10/27/2022 5:51:19 PM This report has been signed electronically. Number of Addenda: 0 Estimated Blood Loss: Estimated blood loss was minimal. Total Procedure Duration Time 0 hours 9 minutes [address] [place] [address] IMPRESSION: - Vista-colored mucosa suspicious for Osborn's esophagus. - Grade [...] Continue present medicati (more content not included)... [facility] Study observation (narrative) [employer] Glucose Auto test strip (Bld ) [Mass/Vol]on 10-27-2022 Glucose [Mass/Vol] 102 mg/dL High 70-99 [facility] Comment on above: Performed By: #### 2 340-8 #### [facility] [address] [place] [address] Glucose [Mass/Vol] 102 mg/dL High 70 - 99 mg/dL [employer] Interpretation and review of laboratory results Abnormal [facility] US ABDOMEN LIMITEDon US ABDOMEN LIMITED EXAMINATION [...] Self Edit Transcribed Date: 09/02/2022 08:06 Normal [facility] US Abdomen Limitedon 1. Cirrhotic hepatic [...] By: Self Edit Transcribed Date: 09/02/2022 08:06 [employer] EXAMINATION TYPE: US ABDOMEN LIMITED DATE OF [...] By: Self Edit Transcribed Date: 09/02/2022 08:06 [facility] Radiology Study observation (narrative) [facility] US Abdomen LimitedOrdered By : Sin Maya on 09-02-2022 [employer] Work Phone: ECG 12 leadon 04-14-2022 P Wave [place] 69 degrees [facility] Interval 164 ms [facility] Pathologist interpretation (Bld) [Interp] Sinus tachycardia Nonspecific T wave abnormality Abnormal ECG Confirmed by Susana Valdes MD ([id number]), subeditor Donavon Simmons ([id number]) on 04/14/2022 7:53:39 AM [facility] Q-T Interval 374 ms [facility] QRS Duration 82 ms [facility] QTc 484 ms [facility] R Essex 20 degrees [facility] Troponin T.cardiac [Mass/Vol] 35 ug/L degrees [facility] Laboratory - Coagulationon 0 04-14-2022 ACT Coag (Bld) 101 s BPM [facility] Transthoracic echocardiogram (TTE) complete with PRN contrast, bubble, strain, and 3D order panelOrdered By: Jonas Baker on 04-14-2022 Ao VTI 32.6 cm [employer] Work Phone: Aortic Valve Cusp Separation mMode 1.7 cm [employer] Work Phone: Ascending Aorta 3.7 cm [employer] Work Phone: AV Mean Gradient 7 mmHg [employer] Work Phone: AV Peak Gradient 14 mmHg [employer] Work Phone: AV Peak Berhane 1.9 m/s [facility] Work Phone: AV Velocity Ratio 0.84 [employer] Work Phone: Body surface area Derived from formula 2.89 m2 [facility] Work Phone: E Wave Deceleration Time 132 ms 119 - 242 ms [facility] Work Phone: E/E' Ratio Averaged 11 Tayla ty [facility] Work Phone: E/E' Ratio Lateral [address] [facility] Work Phone: E/E' Ratio Septal 12 [employer] Work Phone: Ejection Fraction (A2C) 54 % T [facility] [employer] Work Phone: Ejection Fraction (A4C) 66 % T [facility] Work Phone: Ejection Fraction (BP) 57 % Tr [facility] Work Phone: Est. RA Pressure 3 mmHg [facility] Work Phone: FS 43 % [facility] Work Phone: Interpretation and review of laboratory results Abnormal [facility] Work Phone: IVSD 1.0 cm 0.6 - 1.0 cm [facility] Work Phone: LA Area Sys (A2C) 17 cm2 [facility] Work Phone: LA Area Sys (A4C) 27 cm2 [facility] Work Phone: LA Volume (BP) 56 mL [facility] Work Phone: LA Volume Index (BP) 21 mL/m2 [facility] Work Phone: Left Atrium Major [place] 7.4 cm Tr [facility] Work Phone: Left Atrium Minor [place] 6.6 cm [facility] Work Phone: LV Diastolic Volume (BP) 167 mL Abnormal 62 - 150 mL [facility] Work Phone: LV Diastolic Volume Index (BP) 61 mL/m2 [employer] Work Phone: LV EDV (A2C) 171 mL [facility] Work Phone: LV EDV (A4C) 160 mL [employer] Work Phone: LV EDV Index (A2C) 63 mL/m2 [facility] Work Phone: LV EDV Index (A4C) 59 mL/m2 [facility] Work Phone: LV ESV (A2C) 79 mL [employer] Work Phone: LV ESV (A4C) 55 mL [employer] Work Phone: LV ESV Index (A2C) 29 mL/m2 [facility] Work Phone: LV ESV Index (A4C) 20 mL/m2 [employer] [facility] Work Phone: LV Mass 2D 218 g [employer] Work Phone: LV Mass Index 2D 80 g/m2 [employer] Work Phone: LV Systolic Volume (BP) 72 mL Abnormal 21 - 61 mL T [facility] [employer] Work Phone: LV Systolic Volume Index (BP) 26 mL/m2 [employer] Work Phone: LVIDD 5.8 cm 4.2 - 5.8 cm [employer] Work Phone: LVIDD Index 2.12 cm/m2 [employer] Work Phone: LVIDS 3.3 cm 2.5 - 4.0 cm [employer] Work Phone: LVIDS Index 1.21 cm/m2 [facility] Work Phone: LVOT Mean Grad 6 mmHg [employer] [facility] Work Phone: LVOT Mean Berhane 1.2 m/s [facility] Work Phone: LVOT Peak Gradient [address] [facility] Work Phone: LVOT Peak Berhane 1.6 m/s [facility] Work Phone: LVOT Peak VTI 33.2 cm [employer] Work Phone: LVOT:AV VTI Index 1.02 [employer] Phone: LVPWD 0.9 cm 0.6 - 1.0 cm [employer] Phone: Microscopic observation Hans (Ear) [Interp] 1.0 [employer] [facility] h Work Phone: MV E' Tissue Velocity Lateral 14 cm/s [employer] Phone: MV E' Tissue Velocity Septal 11 cm/s [employer] Phone: MV Peak A Berhane 1.31 m/s [employer] Work Phone: MV Peak E Berhane 1.33 m/s [employer] Work Phone: Relative Wall Thickness ratio 0.31 [employer] Phone: RV Diastolic Basal Dimension 3.4 cm 2.5 - 4.1 cm [employer] Phone: RV Diastolic Length 8.9 cm Abnormal 5.9 - 8. 3 cm [employer] Phone: RV Diastolic Mid Dimension 3.0 cm 1.9 - 3.5 cm [employer] Phone: [employer] Phone: Transthoracic echocardiogram (TTE) complete with PRN [...] panelon 04-13-2022 Anion gap [Moles/Vol] 11 mmol/L [facility] [employer] Calcium [Mass/Vol] 9.1 mg/dL 8.9 - 10. 3 mg/dL [employer] Chloride [Moles/Vol] 99 mmol/L 98 - 10 7 mmol/L [employer] CO2 [Moles/Vol] 23 mmol/L 22 - 32 mmol/L [employer] Creatinine [Mass/Vol] 0.68 mg/dL 0.60 - 1.30 mg/dL [employer] GFR/1.73 sq M.predicted MDRD (S/P/Bld) [Vol rate/Area] 117 mL/min/{1.73_m2} mL/min/1.7 3m2 [employer] Glucose [Mass/Vol] 94 mg/dL 70 - 99 mg/dL [employer] Interpretation and review of laboratory results Abnormal [employer] Potassium [Moles/Vol] 4.1 mmol/L 3.6 - 5.1 mmol/L [employer] Sodium [Moles/Vol] 133 mmol/L Low 136 - 145 mmol/L [employer] Urea nitrogen [Mass/Vol] 9 mg/dL 8 - 20 mg/dL [employer] Urea nitrogen/Creatinine [Mass ratio] 13.2 mg/mg [employer] CT Angio Chest wo and/or w [facility] 04-13-2022 Initial injection wa s suboptimal [...] By: Self Edit Transcribed Date: 04/13/2022 17:31 [employer] EXAMINATION TYPE: CT ANGIO CHEST WO AND/OR [...] dissection. Motion artifact at the aortic root. [employer] Tanmay Vicente MD - 04/13/2022 EXAMINATION TYPE: [...] By: Self Edit Transcribed Date: 04/13/2022 17:31 [employer] Fibrin D-dimer DDU (PPP) [Ma ss/Vol]on 04-13-2022 Fibrin D-dimer FEU (PPP) [Mass/Vol] 0.51 High <0.50 mcg/mL FEU [employer] Comment on above: Cutoff 0.49 mcg/ml F EU At this cutoff level, the negative predictive value for this test is 100% for deep vein thrombosis (DVT) in patients with a low or moderate pre-test probability and 99.7% for pulmonary embolism (PE) in patients with a low or moderate pre-test probability. Clinical correlation is essential. Interpretation and review of laboratory results Abnormal [facility] Hemogram and platelets WO di fferential panel (Bld)Ordered By: Silke Cronin on 04-13-2022 Basophils (Bld) [#/Vol] 0.00 10*3/uL [employer] Basophils/100 WBC (Bld) 0.8 % 0.0 - 2.0 % [employer] Eosinophils (Bld) [#/Vol] 0.20 10*3/uL [employer] Eosinophils/100 WBC (Bld) 4.1 % 0.0 - 7.0 % [employer] Erythrocyte distribution width (RBC) [Ratio] 16.6 % High 11.0 - 14.8 % [employer] Hematocrit (Bld) [Volume fraction] 40.8 % 39.0 - 49.0 % [employer] Hemoglobin (Bld) [Mass/Vol] 13.6 g/dL 13.5 - 17.5 g/dL [employer] Interpretation and review of laboratory results Abnormal [employer] Lymphocytes (Bld) [#/Vol] 0.80 10*3/uL Low [facility] Lymphocytes/100 WBC (Bld) 17.5 % Low 22.0 - 44.0 % [facility] MCH (RBC) [Entitic mass] 30.1 pg [facility] MCHC (RBC) [Mass/Vol] 33.3 g/dL 32.0 - 36.0 g/dL [facility] MCV (RBC) [Entitic vol] 90.4 fL [facility] Monocytes (Bld) [#/Vol] 0.50 10*3/uL [facility] Monocytes/100 WBC (Bld) 12.3 % 4.0 - 23.0 % [facility] Neutrophils (Bld) [#/Vol] 2.90 10*3/uL [facility] Neutrophils/100 WBC (Bld) 65.3 % 40.0 - 70.0 % [facility] Platelet mean volume (Bld) [Entitic vol] 8.6 fL [facility] th Platelets (Bld) [#/Vol] 71 10*3/uL Low [facility] Comment on above: Results confirmed by slide review. RBC (Bld) [#/Vol] 4.51 10*6/uL [facility] WBC (Bld) [#/Vol] 4.5 10*3/uL Low [facility] Magnesiumon 04-13-2022 Magnesium [Mass/Vol] 1.8 mg/dL 1.8 - 2 .5 mg/dL [facility] Magnesium [Mass/Vol]on 04-13 Interpretation and review of laboratory results Normal [facility] No Panel Informationon 04-13 [facility] SARS-CoV-2 (COVID-19) RNA NA A+probe Ql (Resp)on 04-13-2022 Interpretation and review of laboratory results Normal [facility] SARS-CoV-2 (COVID-19) RdRp gene CHARLIE+probe Ql (Resp) Not detected Not Detected [facility] Tropinin I.cardiac panel Hig h sensitivity methodon 04-13-2022 Interpretation and review of laboratory results Abnormal [facility] Troponin I.cardiac High sensitivity method [Mass/Vol] 22 ng/L High <[address] [facility] Interpretation and review of laboratory results Abnormal [facility] Troponin I.cardiac High sensitivity method [Mass/Vol] 21 ng/L High <[address] [facility] Interpretation and review of laboratory results Normal [facility] Troponin I.cardiac High sensitivity method [Mass/Vol] 16 ng/L <[address] [facility] XR Chest 2 Viewson Nonacute study. [...] By: Self Edit Transcribed Date: 04/13/2022 15:12 [facility] Radiology Study observation (narrative) [facility] XR Chest 2 ViewsOrdered By: Tanmay Vicente on 04-13-2022 [employer] Work Phone: XR Abdomen Single viewon No [...] Self Edit Transcribed Date: 03/25/2022 12:41 [employer] Radiology Study observation (narrative) [employer] XR Abdomen Single viewOrdere d By: Jean Carlos Monroy on 03-25-2022 [employer] Work Phone: XR ABDOMEN /KUB/FLAT PLATE/1 VIEWon [...] Sat Mar 13, 2022 7:24:20 PM EDT [facility] Comment on above: Order Comment: Injur [...] Nom (Bld) Blood group B Rh(D) positive [facility] ABO and Rh group Nom (Bld) ABO/Rh Verification [facility] Comment on above: Patient's ABO/Rh is verified. [facility] APTTOrdered By: Sukhwinder Villalobos on 04-22-2021 aPTT Coag (Bld) [Time] 33 s [facility] Basic metabolic 2000 panelOr dered By: Sukhwinder Villalobos on 04-22-2021 Anion gap [Moles/Vol] 16 mmol/L 10 - 2 0 mmol/L [facility] Calcium [Mass/Vol] 8.9 mg/dL 8.4 - 10. 2 mg/dL [facility] Chloride [Moles/Vol] 102 mmol/L 98 - 10 8 mmol/L [facility] Creatinine [Mass/Vol] 0.52 mg/dL 0.50 - 1.30 [facility] GFR/1.73 sq M.predicted CKD-EPI (S/P/Bld) [Vol rate/Area] 132 >=60 mL/min/1.7 3 m2 [facility] Glucose [Mass/Vol] 106 mg/dL High 65 - 99 mg/dL [facility] HCO3 [Moles/Vol] 24 mmol/L 21 - 32 mmol/L [facility] Interpretation and review of laboratory results Abnormal [facility] Potassium [Moles/Vol] 4.2 mmol/L 3.5 - 5.1 mmol/L [facility] Sodium [Moles/Vol] 138 mmol/L 135 - 145 mmol/L [facility] Urea nitrogen [Mass/Vol] 8 mg/dL 8 - 25 mg/dL [facility] Urea nitrogen/Creatinine [Mass ratio] 15.4 mg/mg [facility] The eGFR should be u sed for monitoring renal function only and not for medication dosing. [facility] Blood type and Indirect anti body screen panel (Bld)Ordered By: Sukhwinder Villalobos on 04-22-2021 ABO and Rh group Nom (Bld) Blood group B Rh(D) positive [facility] Blood group antibody screen Ql Negative [facility] Specimen Expires 04/25/2021 23:59 EST [facility] CBC WITH AUTO DIFFERENTIALOr dered By: Sukhwinder Villalobos on 04-22-2021 Basophils (Bld) [#/Vol] 0.08 10*3/uL [facility] Basophils/100 WBC (Bld) 1.8 % [facility] Eosinophils (Bld) [#/Vol] 0.29 10*3/uL [facility] Eosinophils/100 WBC (Bld) 6.4 % [facility] Erythrocyte distribution width (RBC) [Entitic vol] 15.5 % High 11.6 - 14.8 % [facility] Hematocrit (Bld) [Volume fraction] 43.8 % 41.0 - 53.0 % [facility] Hemoglobin (Bld) [Mass/Vol] 14.2 g/dL 13.5 - 17.5 g/dL [facility] Immature granulocytes (Bld) [#/Vol] 0.02 10*3/uL [facility] Immature granulocytes/100 WBC (Bld) 0.40 % [facility] Comment on above: The IG parameter is the percentage of metamyelocytes, myelocytes and promyelocytes. An immature granulocyte count (IG) of 1% or more suggests the possibility of infection, an IG count of 3% is very likely related to an infection. Interpretation and review of laboratory results Abnormal [facility] Lymphocytes (Bld) [#/Vol] 1.19 10*3/uL [facility] Lymphocytes/100 WBC (Bld) 26.2 % [facility] MCH (RBC) [Entitic mass] 30.1 pg 26.0 - 34.0 pg [facility] MCHC (RBC) [Mass/Vol] 32.4 g/dL 31.0 - 37.0 g/dL [facility] MCV (RBC) [Entitic vol] 93.0 fL 80.0 - 100.0 fL [facility] Monocytes (Bld) [#/Vol] 0.76 10*3/uL [facility] Monocytes/100 WBC (Bld) 16.7 % [facility] Neutrophils (Bld) [#/Vol] 2.20 10*3/uL [facility] Neutrophils/100 WBC (Bld) 48.5 % [facility] Nucleated RBC (Bld) [#/Vol] 0.00 10*3/uL [facility] Nucleated RBC/100 WBC (Bld) [Ratio] 0.0 % [facility] Platelet mean volume (Bld) [Entitic vol] 10.6 fL 9.4 - 12.4 fL [facility] Platelets (Bld) [#/Vol] 78 10*3/uL Low [facility] Comment on above: Results checked RBC (Bld) [#/Vol] 4.71 10*6/uL [facility] WBC (Bld) [#/Vol] 4.54 10*3/uL [facility] Glucose (Bld) [Mass/Vol]Orde red By: Sukhwinder Villalobos on 04-22-2021 Glucose [Mass/Vol] 102 mg/dL High 65 - 99 mg/dL [facility] Interpretation and review of laboratory results Abnormal [facility] Glucose [Mass/Vol] 100 mg/dL High 65 - 99 mg/dL [facility] Interpretation and review of laboratory results Abnormal [facility] INR Coag (PPP) [Relative abdulkadir e]Ordered By: Sukhwinder Villalobos on 04-22-2021 Interpretation and review of laboratory results Abnormal [facility] PT Coag (PPP) [Time] 15.2 s High [facility] During the induction phase of oral anticoagulation, the INR may not reflect the anticoagulation status of the patient. Therapeutic ranges for INR's are: Most clinical situations: INR 2.0-3.0 Mechanical Prosthetic Valve: INR 2.5-3.5 Critical: INR >5.0 [facility] No Panel InformationOrdered By: Sukhwinder Villalobos on 04-22-2021 [facility] PT/INROrdered By: Sukhwinder berg on 04-22-2021 INR Coag (PPP) [Relative time] 1.2 {INR} High [facility] SCAN OTHER ORDERSOrdered By: Provider System on 04-22-2021 Ordered by an unspecified provider. [facility] aPTT Coag (Bld) [Time]Ordere d By: Sukhwinder Villalobos on 04-22-2021 Interpretation and review of laboratory results Normal [facility] Therapeutic range fo r APTT's is 68 - 104 seconds [facility] US ABDOMEN LIMITED STUDYon 0 03-20-2021 US [...] contour. Findings raise suspicion for possible cirrhosis. [facility] Workstation ID: [id number] Dictated by: MAURO ZEE on TueMarch 20, 2021 8:18:33 AM EDT Transcribed by: ROMY MOE on TueMarch 20, 2021 8:19:53 AM EDT Finalized by: MAURO ZEE on Sun March 22, 2021 10:22:08 PM EDT Normal [facility] Comment on above: Order Comment: Injur y/Trauma or Illness?:Illness/Other How long have you had these symptoms (acute/chronic)?:Chronic Reason for exam?:Abdominal bloating History of cancer?: Surgeries, chemotherapy, or radiation?: Type of Exam?:Initial Additional signs and symptoms?:History of fatty liver disease with possible cirrhosis per patient Alpha Fetoprotein Tumor Elieser rian 12-24-2020 AFP.tumor marker [Mass/Vol] 2.4 ng/mL Normal 0.0-9.0 [facility] Comment on above: Result Comment: REFE [...] method. Performed By: #### 5 3962-7 #### [facility] [address] [place] [address] US Abdomen Ltdon 10-14-2020 US Abdomen limited [...] hepatic morphology. 2. Nonvisualization of the pancreas. [facility] thanks you for the opportunity to care for your patient. Workstation ID: [id number] - [id number] FINAL REPORT Dictated By: Rudi Joshi MD 10/14/2020 11:22 Assigned Physician: Rudi Joshi MD Reviewed and Electronically Signed By: Rudi Joshi MD 10/14/2020 11:24 Transcribed by: NIMO 10/14/2020 11:[address] [facility] Glucose POCT (Uploaded)on Glucose [Mass/Vol] 87 mg/dL Normal 70-99 [facility] Comment on above: Result Comment: Samantha [...] Jose June/Sex: 1980 Male Med Rec #: [id number] Physician: Financial #: [id number] Pt. Type: I Room/Bed: / Admit/Disch: 06/26/20 [...] Lani Wang Role Performed Primary Surgeon Anesthesiologist supervisor respiratory Time In 06/26/20 13:58:00 06/26/20 13:58:00 06/26/20 13:58:00 Time Out 06/26/20 14:13:00 06/26/20 14:13:00 06/26/20 14:13:00 Procedure Egd with Biopsy_(N/A) Egd with Biopsy_(N/A) Egd with Biopsy_(N/A) Attendee Comment Relief Reason Last Modified By: Lani Villareal RN, RN , Lani Forbes RN 06/26/20 14:20:23 06/26/20 14:20:23 06/26/20 14:20:23 Entry 4 Case Attendee Jazmyn Meadows Role Performed [employer] Dean Time In 06/26/20 13:58:00 Time Out 06/26/20 14:13:00 Procedure Egd with Biopsy_(N/A) Attendee Comment Relief Reason Last Modified By: Lani Villareal RN 06/26/20 14:20:23 CO MCE Endo General Case Gear Roller 1 OR CO E EN 04 ASA [...] N/A Procedure Wound None Class Primary Surgeon Dadny Healy MD Surgical Service Endoscopy Service Anesthesia [...] By: Lani Villareal RN 06/26/20 14:[address] [facility] Patient Summaryon 06-26-2020 Patient Summary PATIENT DISCHARGE INSTRUCTIONS If you are having an emergency and are not able to reach your physician, CALL 911 or go to the nearest emergency room and take this document with you. [facility] 06/26/20 14:28 [address] [place]. [address] PATIENT INFORMATION Name: LEON RIDER Address: [address] [place] [address] [place] [address] Age: 40 Years Phone: [phone] : 1980 12:00 MRN: [id number] Sex: Male Race: White Ethnicity: Not Hispan/Lat Admitted From: Clinic or [facility] Medical Service: Gastroenterology Nurse Unit/Bed: ([place] Admit Date: 06/26/2020 12:03 PCP: Musa [...] doses are changed, or new medications (including auxi-uer-ghknvkd products) are added. Ask your doctor if [...] suicide hotline, anytime day or night, at 1-073-026-RZDB. Important information about accessing your health information through the [facility] patient portal If you initiated the self-registration process for [facility] during your stay, please check your personal email for an invitation to enroll in [facility] and complete the steps outlined in the email. If you would prefer to enroll while in the hospital, ask a member of your care team. We would be happy to assist you. If you have already enrolled in [facility], go to [email or web address] [facility] [email or web address] to login and access your health information. Thank you for choosing [facility]. PATIENT EDUCATION PATIENT DISCHARGE INSTRUCTION Signature Page for: LEON RIDER Date/Time: 06/26/2020 14:28:21 A Clinician has explained the information on my discharge instructions and has provided me with a copy. My questions have been answered to my satisfaction. Patient Signature Date/Time Responsible Party Date/Time Relationship to Patient ____ Clinician Signature Date/Time Normal [facility] Post PACU Nursingon 06-26-20 Post PACU Nursing CO MCE Endo PACU Nursing Record Summary Primary Physician: Dandy Healy MD Finalized Date/Time: 06/26/20 15:04:08 Pt. Name: LEON RIDER Jose June/Sex: 1980 Male Med Rec #: [id number] Physician: Financial #: [id number] Pt. Type: I Room/Bed: / Admit/Disch: 06/26/20 [...] 15:03 Lani Villareal RN 06/26/20 15:[address] [facility] PreOp Nursingon 06-26-2020 PreOp Nursing CO [facility]CE Endo PreOp Nursing Record Summary Primary Physician: Dandy Healy MD Finalized Date/Time: 06/26/20 15:07:13 Pt. Name: LEON RIDER /Sex: 1980 Male Med Rec #: [id number] Physician: Financial #: [id number] Pt. Type: I Room/Bed: / Admit/Disch: 06/26/20 [...] By: Angelic Enrique RN 06/26/20 15:[address] [facility] Surgical Pathology Final Rep [facility] 06-26-2020 Pathology study LEON RIDER [id number] [id number] M [id number] RM/BD ORDERING PHYSICIAN: DANDY HEALY RESULT TRANSMITTED: [...] cassette. (ES/1C/MS/RT-BAG) Gross examination was performed at [facility]. AJB:SK 06/26/20 By: GERRY REYNA M.D. AT [facility] (Electronic Signature) MICROSCOPIC: The technical component was performed at [facility], [address] [place] [address]. Microscopic examination was performed. Case resulted at [facility]. The immunohistochemical and/or in situ hybridization tests reported here have been developed and their performance characteristics determined by [facility] [address] [place] [address]. It has not been cleared or approved [...] END OF REPORT END OF REPORT Normal [facility] Coronavirus (COVID-19/SARS-C oV-2) [facility] 06-23-2020 SARS-CoV-[address] [facility] Comment on above: Result Comment: This test was performed via the Aptima SARS-CoV-2 Assay (B2B-Center System) and has been authorized by the FDA under an Emergency Use Authorization (EUA). The assay is validated for nasopharyngeal (INSPECTOR FILTER TIP), nasal, and oropharyngeal (OP) swab specimens. The corrosion control specialist's stated Limit of Detection is 0.01 TCID50/mL [...] www.cdc.gov/coronavirus. Performed By: #### 9 4532-9x5 #### [facility] [address] [place], [place] [id number] Alpha Fetoprotein Tumor Elieser rian 06-18-2020 AFP.tumor marker [Mass/Vol] 3.2 ng/mL Normal 0.0-9.0 [facility] Comment on above: Result Comment: REFE [...] immunoassay method. Performed By: #### 5 3962-7 ####[facility] [address] [place] [address] CBC with Differentialon 08-0 5-2020 Basophils (Bld) [#/Vol] 0.00 thou/mcL Normal 0.00-0.20 [facility] Comment on above: Performed By: #### 5 7021-8 #### [facility] [address] [place] [address] Basophils/100 WBC (Bld) 0.5 % Normal 0.0-2.[address] [facility] Comment on above: Performed By: #### 5 7021-8 #### [facility] [address] [place] [address] Eosinophils (Bld) [#/Vol] 0.30 thou/mcL Normal 0.00-0.70 [facility] Comment on above: Performed By: #### 5 7021-8 #### [facility] [address] [place] [address] Eosinophils/100 WBC (Bld) 5.5 % Normal 0.0-7.0 [facility] Comment on above: Performed By: #### 5 7021-8 #### [facility] [address] [place] [address] Erythrocyte distribution width (RBC) [Entitic vol] 17.1 % High 11.0-14.8 [facility] Comment on above: Performed By: #### 5 7021-8 #### [facility] [address] [place] [address] Hematocrit (Bld) [Volume fraction] 42.0 % Normal 39.0-49.0 [facility] Comment on above: Performed By: #### 5 7021-8 #### [facility] [address] [place] [address] Hemoglobin (Bld) [Mass/Vol] 14.0 g/dL Normal 13.5-17.5 [facility] Comment on above: Performed By: #### 5 7021-8 #### [facility] [address] [place] [address] Lymphocytes (Bld) [#/Vol] 1.10 thou/mcL Normal 1.00-4.80 [facility] Comment on above: Performed By: #### 5 7021-8 #### [facility] [address] [place] [address] Lymphocytes/100 WBC (Bld) 24.2 % Normal 22.0-44.0 [facility] Comment on above: Performed By: #### 5 7021-8 #### [facility] [address] [place] [address] MCH (RBC) [Entitic mass] 29.7 Picograms Normal 27.0-34.0 [facility] Comment on above: Performed By: #### 5 7021-8 #### [facility] [address] [place] [address] MCHC (RBC) [Mass/Vol] 33.4 g/dL Normal 32.0-36.0 [facility] Comment on above: Performed By: #### 5 7021-8 #### [facility] [address] [place] [address] MCV (RBC) [Entitic vol] 88.8 fL Normal 80.0-97.[address] [facility] Comment on above: Performed By: #### 5 7021-8 #### [facility] [address] [place] [address] Monocytes (Bld) [#/Vol] 0.90 thou/mcL Normal 0.00-0.90 [facility] Comment on above: Performed By: #### 5 7021-8 #### [facility] [address] [place] [address] Monocytes/100 WBC (Bld) 18.2 % High 0.0-12.[address] [facility] Comment on above: Performed By: #### 5 7021-8 #### [facility] [address] [place] [address] Neutrophils (Bld) [#/Vol] 2.40 thou/mcL Normal 1.80-7.70 [facility] Comment on above: Performed By: #### 5 7021-8 #### [address] [address] Neutrophils/100 WBC (Bld) 51.6 % Normal 40.0-70.0 [facility] Comment on above: Performed By: #### 5 7021-8 #### [address] [address] Platelet mean volume (Bld) [Entitic vol] 9.9 fL Normal 6.2-12.1 [facility] Comment on above: Performed By: #### 5 7021-8 #### [address] [address] Platelets (Bld) [#/Vol] 76 thou/mcL Low 142-424 [facility] Comment on above: Result Comment: Resu lt confirmed by slide review. Performed By: #### 5 7021-8 #### [address] [address] RBC (Bld) [#/Vol] 4.72 million/mcL Normal 4.30-5.[address] [facility] Comment on above: Performed By: #### 5 7021-8 #### [address] [address] WBC (Bld) [#/Vol] 4.7 thou/mcL Normal 4.6-10.2 [facility] Comment on above: Performed By: #### 5 7021-8 #### [facility] [address] [place] [address] Hepatic Function Panelon Albumin [Mass/Vol] 3.1 g/dL Low 3.5-4.8 [facility] Comment on above: Performed By: #### 2 4324-3 #### [facility] [address] [place] [address] ALP [Catalytic activity/Vol] 104 Units/L High 32-91 [facility] Comment on above: Performed By: #### 2 5-3 #### [facility] [address] [place] [address] ALT [Catalytic activity/Vol] 35 Units/L Normal 14-63 [facility] Comment on above: Performed By: #### 2 4324-3 #### [facility] [address] [place] [address] AST [Catalytic activity/Vol] 42 Units/L High 15-41 [facility] Comment on above: Performed By: #### 2 5-3 #### [facility] [address] [place] [address] Bilirubin [Mass/Vol] 1.2 mg/dL Normal 0.3-1.2 [facility] Comment on above: Performed By: #### 2 4324-3 #### [facility] [address] [place] [address] Bilirubin.direct [Mass/Vol] 0.3 mg/dL Normal 0.1-0.5 [facility] Comment on above: Performed By: #### 2 5-3 #### [facility] [address] [place] [address] Bilirubin.indirect [Mass/Vol] 0.9 mg/dL Normal 0.0-1.0 [facility] Comment on above: Performed By: #### 2 5-3 #### [facility] [address] [place] [address] Protein [Mass/Vol] 7.0 g/dL Normal 6.1-7.9 [facility] Comment on above: Performed By: #### 2 5-3 #### [facility] [address] [place] [address] Vital Signs Date Time Vital Sign Value Performing Clinician Facility 08-21-2025 20:46-0400 Body temperature 97.2 [degF] Alis Duran MD Work Phone: 9(942)781-779328 [place] [address] 08-21-2025 20:46-0400 Diastolic blood pressure 50 mm[Hg] Alis Duran MD Work Phone: 2(912)674-435928 [place] [address] 08-21-2025 20:46-0400 Heart rate 73 /min Alis Duran MD Work Phone: 6(311)064-211028 [place] [address] 08-21-2025 20:46-0400 Respiratory rate 18 /min Alis Duran MD Work Phone: 1(639)474-403428 [place] [address] 08-21-2025 20:46-0400 SaO2% (BldA) [Mass fraction] 98 % Alis Duran MD Work Phone: 1(788)043-658128 [place] [address] 08-21-2025 20:46-0400 Systolic blood pressure 109 mm[Hg] Alis Duran MD Work Phone: 6(491)625-062128 [place] [address] 08-21-2025 16:37-0400 Body mass index (BMI) [Ratio] 43.5 kg/m2 Alis Duran MD Work Phone: 4(625)628-042228 [place] [address] 08-21-2025 16:37-0400 Body weight 141.7 kg Alis Duran MD Work Phone: 5(964)783-060228 [place] [address] 08-21-2025 16:27-0400 Body height 180.34 cm Alis Duran MD Work Phone: 0(411)068-441828 [place] [address] 08-19-2025 14:48-0400 Body height 180.34 cm Alis Duran MD Work Phone: 2(988)356-415128 [place] [address] 08-19-2025 14:48-0400 Body mass index (BMI) [Ratio] 43.4 kg/m2 Alis Duran MD Work Phone: 8(348)635-188928 [place] [address] 08-19-2025 14:48-0400 Body temperature 98.6 [degF] Alis Duran MD Work Phone: 7(169)333-537638 [place] [address] 08-19-2025 14:48-0400 Body weight 141.23 kg Alis Duran MD Work Phone: 2(077)874-401128 [place] [address] 08-19-2025 14:48-0400 Diastolic blood pressure 68 mm[Hg] Alis Duran MD Work Phone: 3(037)840-129628 [place] [address] 08-19-2025 14:48-0400 Heart rate 82 /min Alis Duran MD Work Phone: 8(359)859-858428 [place] [address] 08-19-2025 14:48-0400 Respiratory rate 18 /min Alis Duran MD Work Phone: 7(221)413-030028 [place] [address] 08-19-2025 14:48-0400 SaO2% (BldA) [Mass fraction] 95 % Alis Duran MD Work Phone: 2(571)732-945028 [place] [address] 08-19-2025 14:48-0400 Systolic blood pressure 116 mm[Hg] Alis Duran MD Work Phone: 0(241)969-483028 [place] [address] 08-12-2025 08:24-0400 Body height 180.34 cm Alis Duran MD Work Phone: 8(923)334-939728 [place] [address] 08-12-2025 08:24-0400 Body mass index (BMI) [Ratio] 44.9 kg/m2 Alis Duran MD Work Phone: 5(925)809-163328 [place] [address] 08-12-2025 08:24-0400 Body temperature 98.5 [degF] Alis Duran MD Work Phone: 4(251)580-277551 [address] 08-12-2025 08:24-0400 Body weight 146.08 kg Alis Duran MD Work Phone: 1(913)320-799728 [place] [address] 08-12-2025 08:24-0400 Diastolic blood pressure 66 mm[Hg] Alis Duran MD Work Phone: 7(156)810-987728 [place] [address] 08-12-2025 08:24-0400 Heart rate 78 /min Alis Duran MD Work Phone: 7(630)930-432738 [place] [address] 08-12-2025 08:24-0400 Respiratory rate 18 /min Alis Duran MD Work Phone: [facility] 08-12-2025 08:24-0400 SaO2% (BldA) [Mass fraction] 96 % Alis Duran MD Work Phone: [facility] 08-12-2025 08:24-0400 Systolic blood pressure 108 mm[Hg] Alis Duran MD Work Phone: 5(217)644-530028 [place] [address] 07-26-2025 15:04-0400 Body temperature 98.3 [degF] Alis Duran MD Work Phone: 9(368)650-958628 [place] [address] 07-26-2025 15:04-0400 Diastolic blood pressure 54 mm[Hg] Alis Duran MD Work Phone: 5(593)903-507828 [place] [address] 07-26-2025 15:04-0400 Heart rate 82 /min Alis Duran MD Work Phone: 3(873)132-217128 [place] [address] 07-26-2025 15:04-0400 Inhaled oxygen flow rate 2 L/min Alis Duran MD Work Phone: 9(160)608-232128 [place] [address] 07-26-2025 15:04-0400 Respiratory rate 16 /min Alis Duran MD Work Phone: 2(954)191-535928 [place] [address] 07-26-2025 15:04-0400 SaO2% (BldA) [Mass fraction] 92 % Alis Duran MD Work Phone: 2(530)119-645651 [address] 07-26-2025 15:04-0400 Systolic blood pressure 114 mm[Hg] Alis Duran MD Work Phone: 1(136)818-578928 [place] [address] 07-26-2025 10:23-0400 Body height 180.34 cm Alis Duran MD Work Phone: 9(253)297-487328 [place] [address] 07-26-2025 10:23-0400 Body weight 177 kg Alis Duran MD Work Phone: 3(460)435-031128 [place] [address] 07-26-2025 03:45-0400 Body temperature 98.4 [degF] Alis Duran MD Work Phone: [facility] 07-26-2025 03:45-0400 Diastolic blood pressure 60 mm[Hg] Alis Duran MD Work Phone: [facility] 07-26-2025 03:45-0400 Heart rate 70 /min Alis Duran MD Work Phone: [facility] 07-26-2025 03:45-0400 Respiratory rate 16 /min Alis Duran MD Work Phone: [facility] 07-26-2025 03:45-0400 SaO2% (BldA) [Mass fraction] 96 % Alis Duran MD Work Phone: [facility] 07-26-2025 03:45-0400 Systolic blood pressure 101 mm[Hg] Alis Duran MD Work Phone: [facility] 07-26-2025 03:18-0400 Body mass index (BMI) [Ratio] 54.4 kg/m2 Alis Duran MD Work Phone: [facility] 07-26-2025 03:18-0400 Body weight 177 kg Alis Duran MD Work Phone: [facility] 07-22-2025 10:05-0400 Body height 180.34 cm Alis Duran MD Work Phone: [facility] 07-21-2025 12:11-0400 Body temperature 99.2 [degF] Alis Duran MD Work Phone: [facility] 07-21-2025 12:11-0400 Diastolic blood pressure 49 mm[Hg] Alis Duran MD Work Phone: [facility] 07-21-2025 12:11-0400 Heart rate 99 /min Alis Duran MD Work Phone: [facility] 07-21-2025 12:11-0400 Respiratory rate 15 /min Alis Duran MD Work Phone: [facility] 07-21-2025 12:11-0400 SaO2% (BldA) [Mass fraction] 99 % Alis Duran MD Work Phone: [facility] 07-21-2025 12:11-0400 Systolic blood pressure 129 mm[Hg] Alis Duran MD Work Phone: 8(824)798-006951 [address] 07-21-2025 10:32-0400 Body mass index (BMI) [Ratio] 54.1 kg/m2 Alis Duran MD Work Phone: 0(400)116-125851 [address] 07-21-2025 10:32-0400 Body weight 176.2 kg Alis Duran MD Work Phone: 5(016)816-669328 [place] [address] 07-21-2025 09:08-0400 Body height 180.34 cm Alis Duran MD Work Phone: 4(046)266-185928 [place] [address] 01-28-2025 14:52-0400 Body height 180.34 cm Alis Duran MD Work Phone: 0(261)996-483328 [place] [address] 01-28-2025 14:52-0400 Body mass index (BMI) [Ratio] 50.3 kg/m2 Alis Duran MD Work Phone: 2(936)793-220951 [address] 01-28-2025 14:52-0400 Body temperature 97.6 [degF] Alis Duran MD Work Phone: 0(182)644-793428 [place] [address] 01-28-2025 14:52-0400 Body weight 163.74 kg Alis Duran MD Work Phone: 9(502)208-756438 [place] [address] 01-28-2025 14:52-0400 Diastolic blood pressure 82 mm[Hg] Alis Duran MD Work Phone: 0(265)281-897851 [address] 01-28-2025 14:52-0400 Heart rate 82 /min Alis Duran MD Work Phone: [facility] 01-28-2025 14:52-0400 Respiratory rate 18 /min Alis Duran MD Work Phone: [facility] 01-28-2025 14:52-0400 SaO2% (BldA) [Mass fraction] 97 % Alis Duran MD Work Phone: [facility] 01-28-2025 14:52-0400 Systolic blood pressure 140 mm[Hg] Alis Duran MD Work Phone: [facility] 04-23-2024 08:20-0400 Body height 179.07 cm Fiona Satkowiak PA-C [facility] 04-23-2024 08:20-0400 Body mass index (BMI) [Ratio] 48.07 kg/m2 Fiona Satkowiak PA-C [facility] 04-23-2024 08:20-0400 Body weight 154.13 kg Fiona Satkowiak PA-C [facility] 03-22-2024 09:33-0400 Body mass index (BMI) [Ratio] 51.6 kg/m2 Zack Vigil MD Work Phone: [facility] 03-22-2024 09:33-0400 Body weight 165.47 kg Zack Vigil MD Work Phone: [facility] 03-22-2024 09:33-0400 Diastolic blood pressure 80 mm[Hg] Zack Vigil MD Work Phone: [facility] 03-22-2024 09:33-0400 Heart rate 84 /min Zack Vigil MD Work Phone: [facility] 03-22-2024 09:33-0400 Systolic blood pressure 130 mm[Hg] Zack Vigil MD Work Phone: [facility] 09-25-2023 04:18-0500 Diastolic blood pressure 80 mm[Hg] Bernabe Dooley MD Work Phone: [facility] 09-25-2023 04:18-0500 Heart rate 82 /min Bernabe Dooley MD Work Phone: [facility] 09-25-2023 04:18-0500 Respiratory rate 16 /min Bernabe Dooley MD Work Phone: [facility] 09-25-2023 04:18-0500 SaO2% (BldA) [Mass fraction] 98 % Bernabe Dooley MD Work Phone: [facility] 09-25-2023 04:18-0500 Systolic blood pressure 145 mm[Hg] Bernabe Dooley MD Work Phone: [facility] 09-24-2023 18:17-0500 Body temperature 98.01 [degF] Bernabe Dooley MD Work Phone: [facility] 09-24-2023 18:11-0500 Body height 180.3 cm Bernabe Dooley MD Work Phone: [facility] 09-24-2023 18:11-0500 Body mass index (BMI) [Ratio] 51.6 kg/m2 Bernabe Dooley MD Work Phone: [facility] 09-24-2023 18:11-0500 Body weight 167.83 kg Bernabe Dooley MD Work Phone: [facility] 02-16-2023 09:50-0400 Diastolic blood pressure 66 mm[Hg] [address] 02-16-2023 09:50-0400 Heart rate 86 /min [address] 02-16-2023 09:50-0400 Respiratory rate 15 /min [address] 02-16-2023 09:50-0400 SaO2% (BldA) [Mass fraction] 97 % [address] 02-16-2023 09:50-0400 Systolic blood pressure 140 mm[Hg] [address] 02-16-2023 09:25-0400 Body temperature 98.6 [degF] [address] 02-16-2023 09:00-0400 Body height 180.[address] 02-16-2023 09:00-0400 Body mass index (BMI) [Ratio] 52.09 kg/m2 [address] 02-16-2023 09:00-0400 Body weight 169.[address] 12-23-2022 11:10-0500 Diastolic blood pressure 92 mm[Hg] [address] 12-23-2022 11:10-0500 Heart rate 76 /min [address] 12-23-2022 11:10-0500 Respiratory rate 15 /min [address] 12-23-2022 11:10-0500 SaO2% (BldA) [Mass fraction] 97 % [address] 12-23-2022 11:10-0500 Systolic blood pressure 156 mm[Hg] [address] 12-23-2022 10:41-0500 Body temperature 99.1 [degF] [address] 12-23-2022 09:15-0500 Body height 180.[address] 12-23-2022 09:15-0500 Body mass index (BMI) [Ratio] 53.44 kg/m2 [address] 12-23-2022 09:15-0500 Body weight 173.[address] 10-27-2022 18:15-0500 Diastolic blood pressure 87 mm[Hg] [address] 10-27-2022 18:15-0500 Heart rate 79 /min [address] 10-27-2022 18:15-0500 Respiratory rate 15 /min [address] 10-27-2022 18:15-0500 SaO2% (BldA) [Mass fraction] 100 % [address] 10-27-2022 18:15-0500 Systolic blood pressure 152 mm[Hg] [address] 10-27-2022 17:50-0500 Body temperature 97.5 [degF] [address] 10-26-2022 12:00-0500 Body height 180.[address] 10-26-2022 12:00-0500 Body mass index (BMI) [Ratio] 53 kg/m2 [address] 10-26-2022 12:00-0500 Body weight 172.[address] 04-14-2022 15:29-0400 Body temperature 97.9 [degF] Tye Holbrook MD Work Phone: [facility] 04-14-2022 15:29-0400 Diastolic blood pressure 83 mm[Hg] Tye Holbrook MD Work Phone: [facility] 04-14-2022 15:29-0400 Heart rate 94 /min Tye Holbrook MD Work Phone: [facility] 04-14-2022 15:29-0400 SaO2% (BldA) [Mass fraction] 94 % Tye Holbrook MD Work Phone: [facility] 04-14-2022 15:29-0400 Systolic blood pressure 152 mm[Hg] Tye Holbrook MD Work Phone: [employer] 04-14-2022 14:07-0400 Body height 180.3 cm Tye Holbrook MD Work Phone: [facility] 04-14-2022 14:07-0400 Body mass index (BMI) [Ratio] 51.19 kg/m2 Tye Holbrook MD Work Phone: [facility] 04-14-2022 14:07-0400 Body weight 166.47 kg Tye Holbrook MD Work Phone: [employer] 04-14-2022 03:00-0400 Respiratory rate 18 /min Tye Holbrook MD Work Phone: [facility] 04-22-2021 08:50-0400 Body temperature 98.29 [degF] Sukhwinder Villalobos MD Work Phone: [facility] 04-22-2021 08:50-0400 Diastolic blood pressure 65 mm[Hg] Sukhwinder Villalobos MD Work Phone: [facility] 04-22-2021 08:50-0400 Heart rate 94 /min Sukhwinder Villalobos MD Work Phone: [facility] 04-22-2021 08:50-0400 Respiratory rate 13 /min Sukhwinder Villalobos MD Work Phone: [facility] 04-22-2021 08:50-0400 SaO2% (BldA) [Mass fraction] 92 % Sukhwinder Villalobos MD Work Phone: [facility] 04-22-2021 08:50-0400 Systolic blood pressure 117 mm[Hg] Sukhwinder Villalobos MD Work Phone: [facility] 04-22-2021 06:38-0400 Body height 180.3 cm Sukhwinder Villalobos MD Work Phone: [facility] 04-22-2021 06:38-0400 Body mass index (BMI) [Ratio] 53.35 kg/m2 Sukhwinder Villalobos MD Work Phone: [facility] 04-22-2021 06:38-0400 Body weight 173.5 kg Sukhwinder Villalobos MD Work Phone: [facility] Encounters Encounter Date Encounter Type Care Provider Facility Start: 09-19-2025 ambulatory León Mccray Facility:[facility] Start: 09-16-2025 ambulatory Myriam Aguilar Facility:[facility] Start: 09-09-2025 End: 09-09-2025 ambulatory Alis Duran Facility:[facility] Start: 08-21-2025 End: 08-21-2025 Emergency department patient visit Alis Duran MD Work Phone: -Emergency Department Work Phone: Start: 08-21-[address] Myriam Aguilar DO -Physical Therapy Work Phone: Start: 08-19-2025 End: 08-19-[address] León Mccray MD -[facility] Work Phone: Start: 08-19-2025 End: 08-19-2025 ambulatory Alis Duran MD Work Phone: -[facility] Start: 08-13-[address] Myriam Aguilar DO -Physical Therapy Work Phone: Start: 08-13-2025 End: 08-13-2025 ambulatory Alis Duran MD Work Phone: -[facility] Start: 08-13-2025 End: 08-13-[address] León Mccray MD -[facility] Work Phone: Start: 08-12-[address] León Mccray MD -[facility] Start: 08-12-2025 End: 08-12-[address] León Mccray MD -[facility] Work Phone: Start: 08-12-2025 End: 08-13-2025 ambulatory Alis Duran MD Work Phone: -[facility] Start: 08-06-2025 Non-patient / Non-visit Velconnort Anahiang [facility] Work Phone: Start: 08-06-2025 [facility] Start: 08-02-2025 End: 08-02-2025 ambulatory Alis Duran MD Work Phone: -[facility] Start: 08-02-2025 End: 08-02-[address] Alis Duran MD -[facility] Start: 08-02-2025 End: 08-02-2025 ambulatory Alis Duran Facility:[facility] Start: 07-26-2025 Non-patient / Non-visit Dr. Myriam Aguilar DO [facility] Work Phone: Start: 07-25-2025 Non-patient / Non-visit Dr. Myriam Aguilar DO [facility] Work Phone: Start: 07-24-2025 Non-patient / Non-visit Dr. Timoteo Cooper MD -[facility] Work Phone: Start: 07-23-2025 Non-patient / Non-visit Dr. Timoteo Cooper MD -[facility] Work Phone: Start: 07-22-2025 Non-patient / Non-visit Dr. Timoteo Cooper MD -[facility] Work Phone: Start: 07-22-2025 ambulatory Rosalee Kofi Facility:[facility] Start: 07-22-2025 Non-patient / Non-visit Dr. Rosalee hawkins MD -[facility] Start: 07-21-2025 ambulatory Timoteo Cooper Facility: [facility] Start: 07-21-2025 End: 07-26-2025 Evaluation and management of inpatient Dr. Timoteo Cooper MD -[facility] Unit Work Phone: Start: 07-19-2025 End: 07-19-2025 ambulatory Alis Duran MD Work Phone: -[facility] Start: 07-19-2025 End: 07-19-2025 Patient encounter procedure Yusef Mccoy [employer] -Cardiovascular Services Work Phone: Start: 07-19-2025 End: 07-19-2025 ambulatory Yusef Trimblegirma [employer] Facility:[facility] Start: 04-29-2025 End: 04-29-2025 ambulatory Alis Duran MD Work Phone: [facility] Work Phone: Start: 04-29-2025 End: 04-29-[address] Alis Duran MD -[facility] Start: 04-29-2025 End: 04-29-2025 ambulatory Alis Roger Facility:[facility] Start: 01-28-2025 End: 01-28-[address] Lorie Willson MD -[facility] Work Phone: Start: 01-28-2025 End: 01-28-2025 ambulatory Alis Duran Facility:[facility] Start: 04-23-2024 End: 04-23-2024 Office outpatient visit 15 minutes Fiona Beckman Work Phone: [facility] [place] Start: 03-22-2024 ambulatory ZACK [facility] Start: 03-22-2024 [...] (CMS/HCC) (HCC) Start: 03-20-2024 ambulatory ZACK MUSA [facility] Start: 01-20-2024 End: 01-20-2024 Office outpatient visit 15 minutes Fiona Beckman Work Phone: [facility] [place] Start: 01-19-2024 End: 01-19-2024 Encounter identifier Nathalia Angela Work Phone: [facility] [place] Start: 01-17-2024 End: 01-17-2024 Encounter identifier Nathalia LunaMOMENTFACE SRO Work Phone: [facility] [place] Start: 01-12-2024 End: 01-12-2024 Encounter identifier Nathalia LunaMOMENTFACE SRO Work Phone: [facility] [place] Start: 01-06-2024 End: 01-06-2024 Encounter identifier Nathalia LunaMOMENTFACE SRO Work Phone: [facility] [place] Start: 01-05-2024 End: 01-05-2024 Encounter identifier Nathalia LunaMOMENTFACE SRO Work Phone: [facility] [place] Start: 12-29-2023 End: 12-29-2023 Encounter identifier Nathalia Angela Work Phone: [facility] [place] Start: 12-27-2023 End: 12-27-2023 Encounter identifier Nathalia Angela Work Phone: [facility] [place] Start: 12-17-2023 ambulatory GOMEZ KURTZ [facility] Start: 12-16-2023 ambulatory ZACK VIGIL [facility] Start: 12-09-2023 [facility] Start: 12-02-2023 End: 12-02-2023 Office outpatient visit 25 minutes Tj Howell Work Phone: [facility] [place] Start: 11-23-2023 ambulatory ZACK [facility] Start: 11-22-2023 Patient encounter procedure Zack Vigil MD Work Phone: [facility] Work Phone: Start: 11-22-2023 Encounter for genera l adult medical examination without abnormal findings ZACK [facility] Start: 11-22-2023 ambulatory ZACK [facility] Start: 11-22-2023 End: 11-22-2023 ambulatory ZACK [facility] Start: 11-22-2023 End: 11-22-2023 Encounter for general adult medical examination without abnormal findings [facility] Start: 11-02-2023 End: 11-02-2023 Encounter identifier Tj Howell Work Phone: [employer] [place] Start: 10-12-2023 End: 10-12-2023 Office outpatient new 45 minutes Tj Howell Work Phone: [facility] [place] Start: 09-24-2023 End: 09-25-2023 Emergency department patient visit BERNABE DOOLEY [facility] Start: 09-24-2023 End: 09-25-2023 Emergency department patient visit Bernabe Dooley MD Work Phone: [facility] Comment on above: Painless hematuria ( Primary Dx) Start: 09-24-2023 End: 09-25-2023 Evaluation and management of inpatient Bernabe Dooley MD Work Phone: [facility] Start: 02-16-2023 ambulatory VINCENT MOSES [facility] Start: 02-16-2023 End: 02-16-2023 Evaluation and management of inpatient McSa Proc Rm [address] [facility] Start: 02-16-2023 End: 02-16-2023 Subsequent hospital visit by physician Vinecnt Moses MD Work Phone: [facility] Comment on above: Esophageal varices w ithout bleeding, unspecified esophageal varices type (CMS/HCC) [I85.00 (ICD-10-CM)] (Primary Dx); Esophageal varices without bleeding (CMS/HCC) Start: 12-23-2022 ambulatory TADCyndi OCHOA KARINA Cyndi V~[id number] [facility] Start: 12-23-2022 End: 12-23-2022 Evaluation and management of inpatient McSa Proc Rm [address] [facility] Start: 12-23-2022 End: 12-23-2022 Subsequent hospital visit by physician Paul Mishra Work Phone: [facility] Comment on above: Esophageal varices w ithout bleeding, unspecified esophageal varices type (CMS/HCC) [I85.00 (ICD-10-CM)] (Primary Dx); Esophageal varices without bleeding (CMS/HCC) Start: 11-17-2022 ambulatory BISHOP CHO [facility] Start: 11-17-2022 End: 11-17-2022 Evaluation and management of inpatient McCe Xr A [facility] Start: 11-17-2022 End: 11-17-2022 Subsequent hospital visit by physician Jduit A [facility] Comment on above: Calculus of kidney; Calculus of kidney with calculus of ureter Start: 10-27-2022 ambulatory JOCELYNE TRACEY [facility] Start: 10-27-2022 End: 10-27-2022 Evaluation and management of inpatient McCe Proc 03 [facility] Start: 10-27-2022 End: 10-27-2022 Subsequent hospital visit by physician Jocelyne Tracey MD Work Phone: [facility] Comment on above: Esophageal varices w ith bleeding (CMS/HCC) Start: 09-02-2022 ambulatory THOM ONEILL [facility] Start: 09-02-2022 End: 09-02-2022 Evaluation and management of inpatient McSam Us 1 [facility] Start: 09-02-2022 End: 09-02-2022 [facility] [address] [place] [address] Comment on above: GLASS (nonalcoholic s teatohepatitis) Start: 04-13-2022 End: 04-14-2022 Emergency department patient visit Tye Holbrook MD Work Phone: [facility] Comment on above: Dyspnea, unspecified type (Primary Dx); SOB (shortness of breath) Start: 04-13-2022 End: 04-14-2022 Evaluation and management of inpatient Tye Holbrook MD Work Phone: [facility] Start: 03-25-2022 End: 03-25-2022 [facility] Start: 03-25-2022 End: 03-25-2022 Subsequent hospital visit by physician Judit Ness [facility] Comment on above: Stone, kidney Start: 03-13-2022 End: 03-13-2022 Emergency department patient visit PAUL CARDOSO [facility] Start: 10-13-2021 Transcribe Orders Dandy Healy MD Work Phone: [facility] Comment on above: Body mass index 45.0 -49.9, adult (CMS/HCC) (Primary Dx) Start: 10-13-2021 End: 10-13-2021 Transcribe Orders Dandy Healy MD Work Phone: [facility] Start: 04-22-2021 End: 04-22-2021 ambulatory [facility] Start: 04-22-2021 End: 04-22-2021 Subsequent hospital visit by physician Sukhwinder Villalobos MD Work Phone: [facility] Start: 03-20-2021 End: 03-21-2021 ambulatory [facility] Procedures Date Procedure Procedure Detail Performing [...] Work Phone: Comment on above: Performed at: [facility] [id number] Director: Tres Cm PhD, Phone: [phone] Start: 08-12-2025 Serum inorganic phosphate measurement Alis [...] or Pulmonary Embolism (PE)CRITICAL VALUE CALLED TO [facility]07/19/25 1632 Apolonia Bearden.RESULTS READ BACK BY SAME. [...] 09-16-2032 Screening for malignant neoplasm of colon [facility] Start: 09-14-2032 Screening for malignant neoplasm of colon Colorectal Cancer Screening: Colonoscopy [facility] Start: 07-23-2027 DTaP,Tdap,and Td Vaccines (2 - Td or Tdap) DTaP,Tdap,and Td Vaccines (2 - Td or Tdap) [facility] Start: 07-23-2027 Tdap/Td Vaccines: 21+ Years Tdap/Td Vaccines: 21+ Years [facility] Start: 07-23-2027 Tetanus vaccination Tetanus: Every 10yrs [facility] Start: 11-12-2026 Lipid panel Cholesterol Screening (Lipid Panel) [facility] Start: 08-21-2025 [facility] Start: 08-13-2025 Measurement of occult blood in stool specimen using immunoassay Stool Occult Blood (GIORGIO) [facility] Start: 08-13-2025 Registered Recurring Registered Recurring -Physical Therapy Work Phone: Start: 08-13-2025 Patient encounter procedure Registered [facility] [place] Work Phone: Start: 07-26-2025 Patient discharge [facility] Start: 07-25-2025 [facility] Start: 07-22-2025 [facility] Start: 07-22-2025 Thyroid stimulating hormone measurement [facility] Start: 07-21-2025 Bacteria identified in Blood by Culture Blood Culture [facility] Start: 07-21-2025 Bacteria identified in Urine by Culture Urine Culture [facility] Start: 07-21-2025 Blood culture Blood Culture [facility] Start: 07-21-2025 Following clinical pathway protocol [facility] Start: 07-21-2025 Application of elastic bandage [facility] Start: 07-21-2025 Care regimes management [facility] Start: 07-21-2025 Elevation of affected extremity [facility] Start: 07-21-2025 Notification of physician [facility] Start: 07-21-2025 Patient education [facility] Start: 07-21-2025 End: 07-21-2025 [facility] Start: 07-21-2025 Continuous positive airway pressure ventilation treatment [facility] Start: 07-21-2025 Admission procedure [facility] Start: 07-21-2025 Documentation procedure [facility] Start: 07-21-2025 Oxygen therapy [facility] Start: 07-21-2025 Ambulation without limitation [facility] Start: 07-21-2025 Assessment of risk of venous thromboembolism [facility] Start: 07-21-2025 Hospital admission, emergency, from emergency room, medical nature [facility] Start: 07-21-2025 Insertion of catheter into peripheral vein [facility] Start: 07-21-2025 Measuring intake and output [facility] Start: 07-21-2025 Providing care according to standard [facility] Start: 07-21-2025 Referral for physical therapy [facility] Start: 07-21-2025 Referral to occupational therapist [facility] Start: 07-21-2025 Referral to service [facility] Start: 07-21-2025 Verification routine [facility] Start: 07-21-2025 [facility] Start: 07-21-2025 [facility] Start: 07-21-2025 End: 07-21-2025 [facility] Start: 07-21-2025 Consultation [facility] Start: 07-21-2025 Patient referral to dietitian [facility] Start: 03-20-2025 Creatinine measurement Creatinine Level [facility] Start: 03-20-2025 Lipid panel Lipid Panel [facility] Start: 03-20-2025 Potassium measurement Potassium Level [facility] Start: 09-24-2024 Diabetes: Annual GFR (Glomerular Filtration Rate) Diabetes: Annual GFR (Glomerular Filtration Rate) [facility] Start: 09-20-2024 Hemoglobin A1c measurement Diabetes: Hemoglobin A1C [facility] Start: 07-15-2024 Influenza vaccination Influenza Vaccine (Season Ended) [facility] Start: 01-31-2024 Hemoglobin A1c measurement Diabetes: Blood Sugar Control Test (HGBA1C) [facility] Start: 11-20-2023 Urine screening for protein Diabetes: Urine Protein Screening [facility] Start: 10-12-2023 Shoulder MRI joint, w/o contrast, Left ([id number]), Body Site: Shoulder, [facility] Start: 09-14-2023 Diabetes: Annual GFR (Glomerular Filtration Rate) Diabetes: Annual GFR (Glomerular Filtration Rate) [facility] Start: 09-14-2023 Hypertension/CHF/CAD Annual BMP Blood Test Hypertension/CHF/CAD Annual BMP Blood Test [facility] Start: 07-15-2023 COVID-19 Vaccine ( season) COVID-19 Vaccine ( season) [facility] Start: 07-15-2023 Influenza vaccination Influenza Vaccine (#1) [facility] Start: 04-13-2023 Hypertension/CHF/CAD Annual BMP Blood Test Hypertension/CHF/CAD Annual BMP Blood Test [facility] Start: 03-08-2023 Hypertension/CHF/CAD Annual BMP Blood Test Hypertension/CHF/CAD Annual BMP Blood Test [facility] Start: 11-12-2022 Urine screening for protein Diabetes: Annual Urine Protein Test (Microalbumin) [facility] Start: 09-14-2022 Subsequent hospital visit by physician 09/14/2022 Hospital Encounter Gastroenterology Dionicio Chávez DO [address] [place] [place] [address] [facility] Start: 07-15-2022 Influenza vaccination [facility] Start: 01-23-2022 COVID-19 Vaccine (4 - Booster for Pfizer series) COVID-19 Vaccine (4 - Booster for Pfizer series) [facility] Start: 12-02-2021 Diabetes: Annual Retina Eye Exam Diabetes: Annual Retina Eye Exam [facility] Start: 12-02-2021 Diabetes: Annual Urine Albumin-Creatinine Ratio Diabetes: Annual Urine Albumin-Creatinine Ratio [facility] Start: 12-02-2021 Diabetes: Annual Urine Albumin-Creatinine Ratio (uACR) Diabetes: Annual Urine Albumin-Creatinine Ratio (uACR) [facility] Start: 12-02-2021 Diabetic foot examination Diabetes: Annual Foot Exam [facility] Start: 12-02-2021 Hemoglobin A1c measurement Diabetes: Blood Sugar Control Test (HGBA1C) [facility] Start: 12-02-2021 Urine screening for protein Diabetes: Annual Urine Protein Test (Microalbumin) [facility] Start: 10-13-2021 End: 10-13-2022 US Abdomen Limited US Abdomen Limited Imaging Routine Body mass index 45.0-49.9, adult (CMS/HCC) Expected: 10/13/2021, Expires: 10/13/2022 [facility] Work Phone: Comment on above: Expected: 10/13/2021, Expires: 2 Start: 07-15-2021 Influenza vaccination Influenza Vaccine (#1) [facility] Start: 04-30-2021 End: 04-30-2021 Patient encounter procedure 04/30/2021 Office Visit General Surgery Sukhwinder Villalobos MD [address] [place] [address] [phone] [facility] Start[place] 12-23-2019 Adolescent depression screening assessment Depression Screening [facility] Start: 12-23-2019 Hepatitis C screening Hepatitis C Screening [facility] Start: 12-23-2019 HIV screening HIV Screening [facility] Start: 12-23-2019 Lipid panel Cholesterol Screening (Lipid Panel) [facility] Start: 12-23-2019 Social Influencers of Health Screening Social Influencers of Health Screening [facility] Start: 1997 DTaP,Tdap,and Td Vaccines (1 - Tdap) DTaP,Tdap,and Td Vaccines (1 - Tdap) [facility] Start: 1996 Hepatitis C screening Hepatitis C Screening [facility] Start: 1993 HIV screening HIV Screening [facility] Start: 1990 COVID-19 Vaccine (1) COVID-19 Vaccine (1) [facility] Start: 1990 Depression screening using PHQ-9 (Patient Health Questionnaire 9) score Depression Screening (PHQ9) [facility] Start: 1988 Diabetes: Annual Retina Eye Exam Diabetes: Annual Retina Eye Exam [facility] Start: 1988 Diabetic foot examination [facility] Start: 1988 Glaucoma screening Diabetes: Retinopathy Screening [facility] Start: 1988 Microalbumin measurement, urine, quantitative Urine Microalbumin [facility] Start: 1988 Ophthalmic examination and evaluation Ophthalmology Exam [facility] Start: 1984 Pneumococcal Vaccine: Pediatrics (0 to 5 Years) and At-Risk Patients (6 to 64 Years) (1 - PCV) Pneumococcal Vaccine: Pediatrics (0 to 5 Years) and At-Risk Patients (6 to 64 Years) (1 - PCV) [facility] Start: 1984 Pneumococcal Vaccine: Pediatrics (0 to 5 Years) and At-Risk Patients (6 to 64 Years) (1 of 2 - PCV) Pneumococcal Vaccine: Pediatrics (0 to 5 Years) and At-Risk Patients (6 to 64 Years) (1 of 2 - PCV) [facility] Start: 1984 Pneumococcal Vaccine: Pediatrics (0 to 5 Years) and At-Risk Patients (6 to 64 Years) (1 of 2 - PPSV23) Pneumococcal Vaccine: Pediatrics (0 to 5 Years) and At-Risk Patients (6 to 64 Years) (1 of 2 - PPSV23) [facility] Start: 1981 History and physical examination, annual for health maintenance Wellness Visit [facility] Start: 1979 MMR Vaccines (1 of 1 - Standard series) MMR Vaccines (1 of 1 - Standard series) [facility] Start: 1978 Hemoglobin A1c measurement A1C [facility] Start: 1978 HIV screening HIV Screening [facility] Start: 1978 Screening for malignant neoplasm of colon [facility] Alanine aminotransfe rase [Enzymatic activity/volume] in Serum or Plasma [facility] Albumin [Mass/volume ] in Serum or Plasma [facility] Alkaline phosphatase [Enzymatic activity/volume] in Serum or Plasma [facility] Anion gap in Serum o r Plasma [facility] Bilirubin, total measurement [facility] Bilirubin.direct [Mass/volume] in Serum or Plasma [facility] BUN/Creatinine ratio [facility] Calcium [Mass/volume ] in Serum or Plasma [facility] Carbon dioxide, tota l [Moles/volume] in Central venous blood [facility] Creatinine [Mass/vol ume] in Serum or Plasma [facility] Erythrocyte mean corpuscular volume determination [facility] Glucose [Mass/volume ] in Serum or Plasma [facility] Hematocrit [Volume Fraction] of Blood [facility] Hemoglobin [Mass/vol ume] in Blood [facility] Leukocytes [#/volume ] in Blood [facility] Magnesium measurement [facility] Mean corpuscular hemoglobin concentration determination [facility] Mean corpuscular hemoglobin determination [facility] Measurement of renal function [facility] Neutrophil count [facility] Neutrophil percent differential count [facility] Patient Education ED Confusion E D Near-Fainting, Uncertain Cause ED Vomiting (Adult) [facility] Work Phone: Platelets [#/volume] in Blood [facility] Potassium measurement [facility] Red blood cell count [facility] Red cell distributio n width determination [facility] Serum chloride measurement [facility] Sodium measurement [facility] Total protein measurement [facility] Troponin T.cardiac [Mass/volume] in Serum or Plasma by High sensitivity method [facility] Urea nitrogen [Mass/volume] in Serum or Plasma [facility] Urine culture [facility] Immunizations Immunization Date Immunization Notes Care Provider Fa regan 11-30-2022 influenza, injectabl e, quadrivalent, preservative free Zack Vigil MD Work Phone: [facility] Work Phone: 11-30-2022 influenza virus vaccine, unspecified formulation Bernabe Dooley MD Work Phone: [facility] 11-28-2021 Pfizer COVID-19, mRN A, 30 mcg/0.3mL Zack Vigil MD Work Phone: [facility] 03-22-2021 Pfizer SARS-CoV-2 Vaccination Sukhwinder Villalobos MD Work Phone: [facility] 03-01-2021 Pfizer COVID-19, mRN A, 30 mcg/0.3mL Zack Vigil MD Work Phone: [facility] 08-21-2020 influenza, injectabl e, quadrivalent, preservative free Zack Vigil MD Work Phone: [facility] 08-21-2020 influenza virus vaccine, unspecified formulation [facility] 10-19-2019 influenza, injectabl e, quadrivalent, preservative free Zack Vigil MD Work Phone: [facility] 08-16-2018 influenza, injectabl e, quadrivalent, preservative free Zack Vigil MD Work Phone: [facility] 07-23-2017 influenza, injectabl e, quadrivalent, preservative free Zack Vigil MD Work Phone: [facility] 07-23-2017 tetanus toxoid, reduced diphtheria toxoid, and acellular pertussis vaccine, adsorbed Zack Vigil MD Work Phone: [facility] 01-14-2017 hepatitis A vaccine, adult dosage Zack Vigil MD Work Phone: [facility] 01-14-2017 hepatitis B vaccine, adult dosage Zack Vigil MD Work Phone: [facility] 05-31-2016 Hepatitis B vaccine (recombinant), CpG adjuvanted Zack Vigil MD Work Phone: [facility] 05-31-2016 hepatitis B vaccine, adult dosage Zack Vigil MD Work Phone: [facility] Work Phone: 03-25-2016 hepatitis A vaccine, adult dosage Zack Vigil MD Work Phone: [facility] 03-25-2016 Hepatitis B vaccine (recombinant), CpG adjuvanted Zack Vigil MD Work Phone: [facility] 03-25-2016 hepatitis B vaccine, adult dosage Zack Vigil MD Work Phone: [facility] Payers Date Payer Category Payer Self-pay 2024 Unknown [id number] 2018 Private Health Insurance [id number] 2018 Unknown [id number] 2018 Unknown [id number] [id number]. 2.7.3.855153.315 1978 Unknown [id number] 2.16.840.1.183171.3.579. 2.900 1978 Unknown [id number] 2.16.840.1.149831.3.579. 2.902 1978 Unknown [id number] 2.16.840.1.195574.3.579. 2.902 1978 Unknown [id number] 2.16.840.1.764870.3.579. 2.1143 1978 Unknown [id number] 2.16.840.1.318188.3.579. 2.1143 1978 Unknown [id number] 2.16.840.1.615405.3.579. 2.1143 1978 Unknown [id number] 2.16.840.1.148474.3.579. 2.1143 1978 Unknown [id number] 2.16.840.1.583231.3.579. 2.1143 1978 Unknown [id number] 2.16.840.1.059882.3.579. 2.1142 1978 Unknown [id number] 2.16.840.1.396129.3.579. 2.1260 1978 Unknown [id number] 2.16.840.1.149619.3.579. 2.0 1978 Unknown [id number] 2.16.840.1.539685.3.579. 2.0 1978 Unknown [id number] 2.16.840.1.045325.3.579. 2.0 1978 Unknown [id number] 2.16.840.1.320619.3.579. 2.0 1978 Unknown [id number] 2.16.840.1.164295.3.579. 2.0 1978 Unknown [id number] 2.16.840.1.350269.3.579. 2.1260 1978 Unknown [id number] 2.16.840.1.580264.3.579. 2.0 1978 Unknown [id number] 2.16.840.1.958348.3.579. 2.[address] [facility] BERMNID [address] [id number] Unknown [id number] 2.16.840.1.939165.3.579. 2.462 Unknown [id number] 2.16.840.1.451712.3.579. 2.462 Unknown [id number] 2.16.840.1.201884.3.579. 2.462 Unknown [id number] 2.16.840.1.129272.3.579. 2.462 Unknown [id number] 2.16.840.1.992984.3.579. 2.462 Unknown [id number] 2.16.840.1.235471.3.579. 2.462 Unknown [id number] 2.16.840.1.583623.3.579. 2.462 Unknown [id number] 2.16.840.1.029411.3.579. 2.462 Unknown [id number] 2.16.840.1.106530.3.579. 2.462 Unknown [id number] 2.16.840.1.295453.3.579. 2.462 Unknown [id number] 2.16.840.1.259035.3.579. 2.462 Unknown [id number] 2.16.840.1.907599.3.579. 2.462 Unknown [id number] 2.16.840.1.061017.3.579. 2.462 Unknown [id number] 2.16.840.1.977619.3.579. 2.462 Unknown [id number] 2.16.840.1.012310.3.579. 2.462 Unknown [id number] 2.16.840.1.703434.3.579. 2.462 Unknown [id number] 2.16.840.1.778857.3.579. 2.462 Unknown [id number] 2.16.840.1.651365.3.579. 2.462 Unknown [id number] 2.16.840.1.440963.3.579. 2.462 Unknown [id number] 2.16840.1.549366.3.579. 2.462 Social History Date Type Detail Facility Start: 04-22-2021 End: 08-21-2025 Tobacco smoking status [facility] Never smoker [facility] Start: 04-22-2021 End: 11-22-2023 Tobacco use and exposure Never used [facility] Start: 04-22-2021 End: 09-24-2023 Alcohol intake Current drinker of alcohol (finding) [facility] Start: 04-22-2021 End: 11-22-2023 Alcohol intake [facility] Start: 02-11-2016 Alcohol Comment occasionally [facility] Start: 1980 Sex Assigned At Not on file [facility] Start: 03-15-2022 End: 02-16-2023 Exposure to SARS-CoV-2 (event) Not sure [facility] Tobacco smoking stat [facility] Unknown if ever smoked [facility] Start: 04-13-2022 End: 03-22-2024 Alcohol intake Ex-drinker (finding) [facility] Start: 10-27-2022 Alcohol Comment rare [facility] Start: 11-22-2023 End: 03-22-2024 Gender identity Not on file [facility] How often to you hav e a drink containing alcohol? Monthly or less [facility] How many standard drinks containing alcohol do you have on a typical day? 1 or 2 [facility] Work Phone: How often do you hav e 6 or more drinks on 1 occasion? Never [facility] Work Phone: How hard is it for y ou to pay for the very basics like food, housing, medical care, and heating Not very hard [facility] Work Phone: The food that (I/we) bought just didn't last, and (I/we) didn't have money to get more. Never true [facility] Work Phone: In the past 12 month s, has lack of transportation kept you from medical appointments or from getting medications? No [facility] Work Phone: In the past 12 month s, was there a time when you were not able to pay the mortgage or rent on time? No [facility] Work Phone: Start: 11-22-2023 Tobacco Comment Very brief experimentation in college [facility] Work Phone: Start: 11-22-2023 Alcohol Comment Maybe one chau jin every few years on very special occasions [facility] Work Phone: Start: [...] [place] W/Strap Sm Ventralex St - [id number] [id number] , [id number]_[facility] FDA Start: 04-22-2021 Goals Date Patient Goal Desired Activity /State Functional Status Date Assessment Result Facility 07-26-2025 Functional status [facility] Work Phone: 04-23-2024 Pain severity - 0-10 verbal numeric rating [Score] - Reported 1/10 [facility] Mental Status Date Assessment Result Facility 08-21-2025 Cognitive function Awake [facility] Work Phone: 07-26-2025 Cognitive function Voice/Name [facility] Work Phone: 07-21-2025 Cognitive function Awake;Alert;A ppropriate;Fol lows Commands [facility] Work Phone: Clinical Notes 04-17-2021 to 08-21-2025 Note Date & Type Note Facility 08-21-2025 Discharge summary [facility] 08-21-2025 Radiology Diagnostic study note [facility] Imaging Services [address] [place], [place] [address] Brain/Head without Contrast MR#: [id number] Acct: [id number] Name: LEON RIDER Rep #: [id number] : 1980 M 45 From: Rosa Morrison MD PCP: Dr. Alis Duran MD Status: REG ER Study:Brain/Head without Contrast Date of Exa m: 08/21/25 Exam# [id number] Ordering Dr: Vincenzo Chavarria MD EXAM: CT [...] evaluation with MRI is recommended. Reading Location: [facility] CC: Dr. Vincenzo Chavarria MD; Dr. Alis Duran MD ~ Hotel Controller: Signed [facility] 08-21-2025 Radiology Diagnostic study note [facility] Imaging Services [address] [place] [address] [id number] Chest 1 View (Portable) MR#: [id number] Acct: [id number] Name: LEON RIDER Rep #: [id number] : 1980 M 45 From: Rosa Morrison MD PCP: Dr. Alis Duran MD Status: REG ER Study:Chest 1 View (Portable) Date of Exam: 08/21/25 Exam# [id number] Ordering Dr: Vincenzo Chavarria MD EXAM: XR Chest, 1 View CLINICAL INDICATION: CONGESTIVE HEART FAILURE TECHNIQUE: Frontal view of the chest. COMPARISON: No relevant prior studies available. FINDINGS: LUNGS AND PLEURAL SPACES: See below. HEART: Cardiomegaly with mild congestion. MEDIASTINUM: Unremarkable. Normal mediastinal contour. BONES/JOINTS: Unremarkable. No acute fracture. RAD/Chest 1 View (Portable) IMPRESSION: Cardiomegaly with mild congestion. Reading Location: [facility] CC: Dr. Vincenzo Chavarria MD; Dr. Alis Duran MD ~ Hotel Controller: Signed [facility] 08-21-2025 Discharge summary Note Date/Time August 21, 2025 8:56pm [facility] Medical Records Department [address] [place] [address] Emergency Department Summary 08/21/25 MR#: [id number] Acct: [id number] Name: LEON RIDER Rep #:[id number] : [...] feel slightly off balance when he walks. [facility] Medical History Kidney stones Cirrhosis Non-smoker [...] Continuous Positive Airway 07/23/25 Unknown Hi story Pressure([facility] IN[facility] USE ONLY) bumetanide 2 mg [...] disease Surgical History H/O umbilical hernia repair [place] teeth extracted Social History household members: spouse [...] (Auto) 57.4 Lymph % (Auto) 17.7 L [place] % (Auto) 14.2 H Eos % (Auto) [...] Clarity Cloudy Urine pH 6.0 Ur Specific [place] 1.020 Urine Protein 15 H Urine Glucose [...] evaluation with MRI is recommended. Reading Location: [facility] Chest X-Ray 08/21/25 18:00 IMPRESSION: Cardiomegaly with mild congestion. Reading Location: [facility] Discharge Plan Triage Chief Complaint: Dizziness Other [...] BID (DME) CPAP - Continuous Positive Airway Pressure([facility] IN[facility] USE ONLY) Device See Rx [...] liquid diet, advance as tolerated. Print Language: Qatari Disposition Disposition: Home, Self Care What to do if you have Problems For any increased pain, shortness of breath, bleeding, nausea or vomiting, chestpain, or any unexpected problems, contact your Primary Care Provider. Call [facility] ([phone]) or report to the closest Emergency Room. Call 911 if necessary. 08/21/252055 <Electronically signed by Vincenzo Chavarria MD> Cosigner Signature (if applicable): CC: Dr. Alis Duran MD ~ Signed [facility] Work Phone: 1(999) 783-483910-06-2025 Progress [facility] [place] [address] OFFICE VISIT Date of Service: 08/19/25 1447 MR#: [id number] Acct: [id number] Name: LEON RIDER Rep #: [id number] : 1980 From: León Mccray MD Age/Sex: 45/M Location: [facility] Status: Signed HPI Subjective Date of Service 08/19/25 Chief Complaint F/u for anemia. 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 He has had esophageal varices which has been banded in [place]. Denies recent bleeding. Had blood work done and comes for follow up. Feels well. [facility] Medical History Hx of cirrhosis Anemia Chronic idiopathic thrombocytopenia HTN (hypertension) Diabetes Acid reflux Rectal bleeding Hemorrhoids Surgical History H/O umbilical hernia repair [place] teeth extracted Family History Other Diabetes Heart [...] Continuous Positive Airway 07/23/25 08/19/25 H istory Pressure([facility] INFORMATIONAL USE ONLY) bumetanide 2 mg [...] 1513 D> Date _ León Mccray MD [facility] Signature: Date (if applicable) CC: Dr. Alis Duran MD ~ [facility]09-29-2025 [facility] [address] [address] OFFICE VISIT Date of Service: 08/12/25822 MR#: [id number] Acct: [id number] Name: LEON RIDER Rep #: [id number] : 1980 From: León Mccray MD Age/Sex: 45/M [place] [facility] [place]: Signed HPI Subjective Date of Service 08/12/25 Chief Complaint Referred for anemia. 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 He has had esophageal varices which has been banded in [place]. Denies recent bleeding [facility] Medical History Hx of cirrhosis Anemia Chronic idiopathic thrombocytopenia HTN (hypertension) Diabetes Acid reflux Rectal bleeding Hemorrhoids Surgical History H/O umbilical hernia repair [place] teeth extracted Family History Other Diabetes Heart [...] Continuous Positive Airway 07/23/25 08/12/25 H istory Pressure([facility] INFORMATIONAL USE ONLY) bumetanide 2 mg [...] 1646 D> Date _ León Mccray MD [facility] Signature: Date (if applicable) CC: Dr. Alis Duran MD ~ [facility]09-12-2025 [facility] Medical Records Department [address] [place] [address] Discharge Summary 07/26/25 1438 MR#: [id number] Acct: [id number] Name: LEON RIDER Rep #: [id number] : 1980 45 From: Myriam Aguilar DO PCP: Dr. Alis Duran MD Status:DIS IN Location: [place] [address] Providers Date of Admission: 07/21/25 Date of [...] diabetes 07/21/25 CPAP - Continuous Positive Airway Pressure([facility] INFORMATIONAL USE ONLY) 07/23/25 bumetanide 2 [...] who presented to the emergency department at [facility] on 07/21/2025 with a chief complaint of chest pain. He has a history of metabolic associated liver disease and right leg pain with history of chronic venous stasis. He stated the night prior to presentation he developed some dull aching in his chest at about 8 PM that lasted for couple minutes and then he had to go work at the [email or web address]. He stated he returned home at about [...] to his l (more content not included)... [facility]09-12-2025 Hospital Discharge instructionsAdditional Instructions 1. Please make [...] to schedule outpatient follow-up Date of Discharge: 07/26/25[facility] Work Phone: [phone]) 441-739209-11-2025 Progress note Author Myriam Aguilar [facility] Note Date/Time July 25, 2025 5:19pm [facility] Medical Records Department [address] [place] [address] Progress Note - Hospitalist 07/25/25 1703 MR#: [id number] Acct: [id number] Name: LEON RIDER Rep #:[id number] : 1980 45 From: Myriam Aguilar DO PCP: Dr. Alis Duran MD Status:ADM IN Location: [place] [address] Reason for Visit Chief Complaint: Atypical chest pain about 2 times last night. Subjective Subjective Patient states overall he is about 50 to 60% better. 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 He is diuresing fairly well. Shortness [...] % (Auto) 57.6, Lymph % (Auto) 15.0L, [place] % (Auto) 19.1 H, Eos % (Auto) [...] Full code Charges/Coding Visit Charges Inpatient E&M: 72930 Subs Hosp L2 07/25/25 4256 <Electronically signed by Myriam Aguilar DO> Cosigner Signature (if applicable): CC: ~ Signed [facility] Work Phone: 1(726) 930-325509-11-2025 Progress note [facility] Medical Records Department [address] [place] [address] Progress Note - Hospitalist 07/25/25 1703 MR#: [id number] Acct: [id number] Name: LEON RIDER Rep #:[id number] : 1980 45 From: Myriam Aguilar DO PCP: Dr. Alis Duran MD Status:ADM IN Location: [place] [address] Reason for Visit Chief Complaint: Atypical chest pain about 2 times last night. Subjective Subjective Patient states overall he is about 50 to 60% better. 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 He is diuresing fairly well. Shortness [...] % (Auto) 57.6, Lymph % (Auto) 15.0L, [place] % (Auto) 19.1 H, Eos % (Auto) [...] Full code Charges/Coding Visit Charges Inpatient E&M: 04486 Subs Hosp L2 07/25/25 5129 Cosigner Signature (if applicable): CC: ~ Signed [facility]09-10-2025 Progress note Author Timoteo Cooper [facility] Note Date/Time July 24, 2025 12:38pm [facility] Medical Records Department [address] [place] [address] Progress Note - Hospitalist 07/24/25 1232 MR#: [id number] Acct: [id number] Name: LEON RIDER Rep #:[id number] : 1980 45 From: Timoteo Mccarthy PCP: Dr. Alis Duran MD Status:ADM IN Location: [place] [address] Reason for Visit Chief Complaint: Atypical chest [...] % (Auto) 60.8, Lymph % (Auto) 14.1L, [place] % (Auto) 16.9 H, Eos % (Auto) 5.1 H, Baso % (Auto) 0.6, Absolute Neuts (auto) 4.9, Absolute Lymphs (auto) 1.13, Nucleated RBC % 0, Differential CommentSCANNED, Platelet Estimate SLT DEC, Polychromasia 1+, Basophilic Stippling 1+, Anisocytosis 2+, Acanthocytes (Spur) RARE, Sodium 131 L, Potassium 3.7, Ucfhugiw182, Carbon Dioxide 23.7, Anion Gap 8, BUN 9, Creatinine 0.64 L, Estim Creat Clear Calc 233.67, Est GFR (MDRD) Non-Af 117, BUN/Creatinine Ratio 13.5, Jzhsgek955 H, Calcium 7.5 L, Total Bilirubin 2.01 [...] in the right upper quadrant. Reading Location: [facility] Rhythm Strip Rhythm Strip: Sinus Tach Rate: [...] diuresis. 07/24: Discussed about the follow-up with marketing liaison for heart failure and further prognosis depends [...] Patient does not follow with GI or quality assurance lab technician as per the . She has to [...] shock if needed Total time spent in blqv-td-yydt encounter in discussion of advanced directive 17 [...] % (Auto) 60.8, Lymph % (Auto) 14.1L, [place] % (Auto) 16.9 H, Eos % (Auto) 5.1 H, Baso % (Auto) 0.6, Absolute Neuts (auto) 4.9, Absolute Lymphs (auto) 1.13, Nucleated RBC % 0, Differential CommentSCANNED, Platelet Estimate SLT DEC, Polychromasia 1+, Basophilic Stippling 1+, Anisocytosis 2+, Acanthocytes (Spur) RARE, Sodium 131 L, Potassium 3.7, Mchqcbux928, Carbon Dioxide 23.7, Anion Gap 8, BUN 9, Creatinine 0.64 L, Estim Creat Clear Calc 233.67, Est GFR (MDRD) Non-Af 117, BUN/Creatinine Ratio 13.5, Ejfqklv389 H, Calcium 7.5 L, Total Bilirubin 2.01 H, AST 41 H, ALT 24, Alkaline Phosphatase 110, Total Protein 6.2, Albumin 2.2 L, Globulin 4.0, Albumin/Globulin Ratio 0.6 L 07/24/25 06:30: POC Glucose 133 H 07/24/25 11:00: POC Glucose 137 H Clinical Impression(s) from Imaging Studies Chest CTA 07/21/25 09:27 IMPRESSION: Negative for pulmonary embolus.. Mild interstitial edema. Mild mediastinal adenopathy. Cirrhosis. Reading Location: [facility] Echocardiogram 07/22/25 05:55 Interpretation Summary Mild [...] in the right upper quadrant. Reading Location: [id number] Charges/Coding Visit Charges Inpatient E&M: 26843 Subs Hosp L2 07/24/25 1238 <Electronically signed by Timoteo Cooper MD> Cosigner Signature (if applicable): CC: ~ Signed ADDENDUM by Dr. Timoteo Cooper MD on 07/24/25 at 1238 Addendum Doxycycline added. 07/24/25 1238<Electronically signed by Timoteo Cooper MD> Cosigner Signature (if applicable): cc: ~* Signed [facility] Work Phone: 1(416) 646-750509-10-2025 Progress note [facility] Medical Records Department [address] [place] [address] Progress Note - Hospitalist 07/24/25 1232 MR#: [id number] Acct: [id number] Name: LEON RIDER Rep #:[id number] : 1980 45 From: Timoteo Mccarthy PCP: Dr. Alis Duran MD Status:ADM IN Location: [place] [address] Reason for Visit Chief Complaint: Atypical chest [...] % (Auto) 60.8, Lymph % (Auto) 14.1L, [place] % (Auto) 16.9 H, Eos % (Auto) 5.1 H, Baso % (Auto) 0.6, Absolute Neuts (auto) 4.9, Absolute Lymphs (auto) 1.13, Nucleated RBC % 0, Differential CommentSCANNED, Platelet Estimate SLT DEC, Polychromasia 1+, Basophilic Stippling 1+, Anisocytosis 2+, Acanthocytes (Spur) RARE, Sodium 131 L, Potassium 3.7, Qybbjtvn162, Carbon Dioxide 23.7, Anion Gap 8, BUN 9, Creatinine 0.64 L, Estim Creat Clear Calc 233.67, Est GFR (MDRD) Non-Af 117, BUN/Creatinine Ratio 13.5, Bcaxigs697 H, Calcium 7.5 L, Total Bilirubin 2.01 H, AST 41 H, ALT 24, Alkaline Mscjkcaeeov940, Total Protein 6.2, Albumin 2.2 L, Globulin [...] in the right upper quadrant. Reading Location: [facility] Rhythm Strip Rhythm Strip: Sinus Tach Rate: [...] diuresis. 07/24: Discussed about the follow-up with marketing liaison for heart failure and further prognosis depends [...] Patient does not follow with GI or quality assurance lab technician as per the . She has to [...] shock if needed Total time spent in chnq-fr-twws encounter in discussion of advanced directive 17 [...] % (Auto) 60.8, Lymph % (Auto) 14.1L, [place] % (Auto) 16.9 H, Eos % (Auto) 5.1 H, Baso % (Auto) 0.6, Absolute Neuts (auto) 4.9, Absolute Lymphs (auto) 1.13, Nucleated RBC % 0, Differential CommentSCANNED, Platelet Estimate SLT DEC, Polychromasia 1+, Basophilic Stippling 1+, Anisocytosis 2+, Acanthocytes (Spur) RARE, Sodium 131 L, Potassium 3.7, Cpavczvb409, Carbon Dioxide 23.7, Anion Gap 8, BUN 9, Creatinine 0.64 L, Estim Creat Clear Calc 233.67, Est GFR (MDRD) Non-Af 117, BUN/Creatinine Ratio 13.5, Qjfbssz631 H, Calcium 7.5 L, Total Bilirubin 2.01 H, AST 41 H, ALT 24, Alkaline Pnjahhzwrzf531, Total Protein 6.2, Albumin 2.2 L, Globulin 4.0, Albumin/Globulin Ratio 0.6 L 07/24/25 06:30: POC Glucose 133 H 07/24/25 11:00: POC Glucose 137 H Clinical Impression(s) from Imaging Studies Chest CTA 07/21/25 09:27 IMPRESSION: Negative for pulmonary embolus.. Mild interstitial edema. Mild mediastinal adenopathy. Cirrhosis. Reading Location: [id number] Echocardiogram 07/22/25 05:55 Interpretation Summary Mild concentric [...] in the right upper quadrant. Reading Location: [id number] Charges/Coding Visit Charges Inpatient E&M: 90473 Subs Hosp L2 07/24/25 1238 Cosigner Signature (if applicable): CC: ~ Signed ADDENDUM by Dr. Timoteo Cooper MD on 07/24/25 at 1238 Addendum Doxycycline added. 07/24/25 1238 Cosigner Signature (if applicable): cc: ~* Signed [facility]09-10-2025 Radiology Diagnostic study note [facility] Imaging Services [address] [place], [place] [address] Abdomen Limited MR#: [id number] Acct: [id number] Name: LEON RIDER Rep #: [id number] : 1980 M 45 From: Roberto Angel MD PCP: Dr. Alis Duran MD Status: ADM IN Study:Abdomen Limited Date of Exam: 08/08 Exam# [id number] Ordering Dr: Irlanda Cooper MD PROCEDURE: ABDOMEN [...] in the right upper quadrant. Reading Location: [facility] CC: Dr. Alis Duran MD; Dr. Timoteo Cooper MD ~ Hotel Controller: Signed [facility]09-09-2025 Progress note Author Timoteo Cooper [facility] Note Date/Time July 23, 2025 3:12pm [facility] Medical Records Department [address] [place] [address] Progress Note - Hospitalist 07/23/25 0932 MR#: [id number] Acct: [id number] Name: LEON RIDER Rep #:[id number] : 1980 45 From: Timoteo Mccarthy PCP: Dr. Alis Duran MD Status:ADM IN Location: [place] [address] Reason for Visit Chief Complaint: Atypical chest [...] (Auto) 64.2, Lymph % (Auto) 14.9 L, [place] % (Auto) 16.2 H, Eos % (Auto) [...] shock if needed Total time spent in akxj-rw-kkur encounter in discussion of advanced directive 17 [...] (Auto) 64.2, Lymph % (Auto) 14.9 L, [place] % (Auto) 16.2 H, Eos % (Auto) [...] Wright RCS Charges/Coding Visit Charges Inpatient E&M: 95068 Subs Hosp L2 07/23/25 1512 <Electronically signed by Timoteo Cooper MD> Cosigner Signature (if applicable): CC: ~ Signed [facility] Work Phone: 1(288) 607-621709-09-2025 Progress note [facility] Medical Records Department [address] [place] [address] Progress Note - Hospitalist 07/23/25 0932 MR#: [id number] Acct: [id number] Name: LEON RIDER Rep #:[id number] : 1980 45 From: Timoteo Mccarthy PCP: Dr. Alis Duran MD Status:ADM IN Location: [place] [address] Reason for Visit Chief Complaint: Atypical [...] (Auto) 64.2, Lymph % (Auto) 14.9 L, [place] % (Auto) 16.2 H, Eos % (Auto) [...] shock if needed Total time spent in tbha-tj-qjqx encounter in discussion of advanced directive 17 [...] (Auto) 64.2, Lymph % (Auto) 14.9 L, [place] % (Auto) 16.2 H, Eos % (Auto) [...] Wright RCS Charges/Coding Visit Charges Inpatient E&M: 69504 Subs Hosp L2 07/23/25 1512 Cosigner Signature (if applicable): CC: ~ Signed [facility]09-08-2025 Progress note Author Timoteo Cooper [facility] Note Date/Time July 22, 2025 4:06pm [facility] Medical Records Department [address] [place] [address] Progress Note - Hospitalist 07/22/25 0946 MR#: [id number] Acct: [id number] Name: LEON RIDER Rep #:[id number] : 1980 45 From: Timtoeo Mccarthy PCP: Dr. Alis Duran MD Status:ADM IN Location: [place] [address] Reason for Visit Chief Complaint: Atypical chest [...] 70.4 H, Lymph % (Auto) 10.4 L, [place] % (Auto) 15.8 H, Eos % (Auto) [...] Clarity Clear, Urine pH 6.5, Ur Specific [place] 1.010, Urine Protein 30 H, Urine Glucose [...] (Auto) 66.1, Lymph % (Auto) 13.7 L, [place] % (Auto) 15.8 H, Eos % (Auto) [...] edema. Mild mediastinal adenopathy. Cirrhosis. Reading Location: [facility] Rhythm Strip Rhythm Strip: Sinus Tach [...] shock if needed Total time spent in unlf-qr-vass encounter in discussion of advanced directive 17 [...] (Auto) 66.1, Lymph % (Auto) 13.7 L, [place] % (Auto) 15.8 H, Eos % (Auto) [...] Wright RCS Charges/Coding Visit Charges Inpatient E&M: 97383 Subs Hosp L2 07/22/25 1606 <Electronically signed by Timoteo Cooper MD> Cosigner Signature (if applicable): CC: ~ Signed [facility] Work Phone: 1(499) 758-878309-08-2025 Progress note [facility] Medical Records Department [address] [place] [address] Progress Note - Hospitalist 07/22/25 0946 MR#: [id number] Acct: [id number] Name: LEON RIDER Rep #:[id number] : 1980 45 From: Timoteo Mccarthy PCP: Dr. Alis Duran MD Status:ADM IN Location: [place] [address] 1 Reason for Visit Chief Complaint: Atypical [...] 70.4 H, Lymph % (Auto) 10.4 L, [place] % (Auto) 15.8 H, Eos % (Auto) [...] Clarity Clear, Urine pH 6.5, Ur Specific [place] 1.010, Urine Protein 30 H, Urine Glucose [...] (Auto) 66.1, Lymph % (Auto) 13.7 L, [place] % (Auto) 15.8 H, Eos % (Auto) [...] edema. Mild mediastinal adenopathy. Cirrhosis. Reading Location: [id number] Rhythm Strip Rhythm Strip: Sinus Tach Rate: [...] shock if needed Total time spent in sghl-nv-itca encounter in discussion of advanced directive 17 [...] (Auto) 66.1, Lymph % (Auto) 13.7 L, [place] % (Auto) 15.8 H, Eos % (Auto) [...] Wright RCS Charges/Coding Visit Charges Inpatient E&M: 22379 Subs Hosp L2 07/22/25 1606 Cosigner Signature (if applicable): CC: ~ Signed [facility]09-07-2025 Discharge summary Author Denice Sunniaudra [facility] Note Date/Time July 21, 2025 3:14pm [facility] Medical Records Department [address] [place] [address] Emergency Department Summary 07/21/25 MR#: [id number] Acct: [id number] Name: LEON RIDER Rep #:[id number] : 1980 45 From: Denice Pineda PCP: Dr. 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 Patient states that 8 PM last night he developed dullache pressure in his chest. Lasted for couple minutes. He was working at the [email or web address] at that time. He returned that evening [...] other complaints or concerns reported this time [facility] Medical History HTN (hypertension) Diabetes Acid [...] 09:08 Surgical History H/O umbilical hernia repair [place] teeth extracted Social History (Updated 07/21/25 @ [...] 70.4 H Lymph % (Auto) 10.4 L [place] % (Auto) 15.8 H Eos % (Auto) [...] Clarity Clear Urine pH 6.5 Ur Specific [place] 1.010 Urine Protein 30 H Urine Glucose [...] (Auto) Neut % (Auto) Lymph % (Auto) [place] % (Auto) Eos % (Auto) Baso % [...] Color Urine Clarity Urine pH Ur Specific [place] Urine Protein Urine Glucose (UA) Urine Ketones [...] edema. Mild mediastinal adenopathy. Cirrhosis. Reading Location: [id number] Rhythm Strip Rhythm Strip: Sinus Tach Rate: [...] acid level Disposition Disposition: Acute Care Hospital [facility] Discharge Date/Time: 07/21/25 12:46 What to do if you have Problems For any increased pain, shortness of breath, bleeding, nausea or vomiting, chestpain, or any unexpected problems, contact your Primary Care Provider. Call [facility] ([phone]) or report to the closest Emergency Room. Call 911 if necessary. 07/21/25 1514 <Electronically signed by Denice Leal DO> Cosigner Signature (if applicable): CC: Dr. Alis Duran MD ~ Signed [facility] Work Phone: [phone]) [phone] Discharge summary [facility] Medical Records Department [address] [place] [address] Emergency Department Summary 07/21/25 MR#: [id number] Acct: [id number] Name: LEON RIDER Rep #:[id number] : 1980 45 From: Denice Pineda PCP: Dr. 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 Patient states that 8PM last night he developed dullache pressure in his chest. Lasted for couple minutes. He was working at the [email or web address] at that time. He returned that evening [...] other complaints or concerns reported this time [facility] Medical History HTN (hypertension) Diabetes Acid [...] 09:08 Surgical History H/O umbilical hernia repair [place] teeth extracted Social History (Updated 07/21/25 @ [...] 70.4 H Lymph % (Auto) 10.4 L [place] % (Auto) 15.8 H Eos % (Auto) [...] Clarity Clear Urine pH 6.5 Ur Specific [place] 1.010 Urine Protein 30 H Urine Glucose [...] (Auto) Neut % (Auto) Lymph % (Auto) [place] % (Auto) Eos % (Auto) Baso % [...] Color Urine Clarity Urine pH Ur Specific [place] Urine Protein Urine Glucose (UA) Urine Ketones [...] edema. Mild mediastinal adenopathy. Cirrhosis. Reading Location: [facility] Rhythm Strip Rhythm Strip: Sinus Tach [...] acid level Disposition Disposition: Acute Care Hospital [facility] Discharge Date/Time: 07/21/25 12:46 What to do if you have Problems For any increased pain, shortness of breath, bleeding, nausea or vomiting, chestpain, or any unexpected problems, contact your Primary Care Provider. Call [facility] ([phone]) or report tothe closest Emergency Room. Call 911 if necessary. 07/21/25 1514 Cosigner Signature (if applicable): CC: Dr. Alis Duran MD ~ Signed [facility]09-07-2025 History and physical note Author Timoteo Cooper [facility] Note Date/Time July 21, 2025 12:42pm [facility] Medical Records Department [address] [place] [address] H&P Exam - Hospitalist 07/21/25 1150 MR#: [id number] Acct: [id number] Name: LEON RIDER Rep #:[id number] : 1980 45 From: Timoteo Mccarthy PCP: Dr. Alis Duran MD Status:ADM IN Location: [address] HPI - General General Date [...] to 10 years ago. 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 [facility] Medical History HTN (hypertension) Diabetes Acid reflux Rectal bleeding Hemorrhoids Home Medications ?Medication ?Instructions ?Recorded ?Last Taken ?Type Diltiazem 10mg/Lidocaine 50mg See Rx Instructions [place] . BID #30 01/28/25 Unknown Rx Suppository [...] 09:08 Surgical History H/O umbilical hernia repair [place] teeth extracted Social History household members: spouse [...] 70.4 H, Lymph % (Auto) 10.4 L, [place] % (Auto) 15.8 H, Eos % (Auto) [...] edema. Mild mediastinal adenopathy. Cirrhosis. Reading Location: [id number] Assessment & Plan Assessment/Plan (1) Cellulitis: QUALIFIERS: [...] shock if needed Total time spent in usem-yh-tbji encounter in discussion of advanced directive 17 [...] 70.4 H, Lymph % (Auto) 10.4 L, [place] % (Auto) 15.8 H, Eos % (Auto) [...] Clarity Clear, Urine pH 6.5, Ur Specific [place] 1.010, Urine Protein 30 H, Urine Glucose [...] adenopathy. Cirrhosis. Charges/Coding Visit Charges Inpatient E&M: 51945 Init Hosp L3 Procedures Hospitalists Procedures: 62903 Advncd Care Plan 30 Min 07/21/25 1242 <Electronically signed by Timoteo Cooper MD> Cosigner Signature (if applicable): CC: Dr. Alis Duran MD; Dr. Timoteo Cooper MD~ Signed [facility] Work Phone: 1(892) 412-706109-07-2025 Evaluation note* Diagnosis Onset Date Resolution Status [...] bilirubin elevated acute July 21 025 12:11pm [facility] Work Phone: 1(806) 519-460209-07-2025 Evaluation note* Diagnosis Onset Date Resolution Status [...] 21, 2025 12:11pm Anemia noneactive July 8:21am [facility] Work Phone: 1(920) 825-486009-07-2025 Evaluation note* Diagnosis Onset Date Resolution Status [...] 19 1:58pm Anemia noneactive August 19 1:58pm [facility] Work Phone: 1(785) 563-682509-07-2025 History and physical note [facility] Medical Records Department [address] [place] [address] H&P Exam - Hospitalist 07/21/25 1150 MR#: [id number] Acct: [id number] Name: LEON RIDER Rep #:[id number] : 1980 45 From: Timoteo Mccarthy PCP: Dr. Alis Duran MD Status:ADM IN Location: [facility] [id number]- [id number] HPI - General General Date of [...] to 10 years ago. 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 [facility] Medical History HTN (hypertension) Diabetes Acid reflux Rectal bleeding Hemorrhoids Home Medications ?Medication ?Instructions ?Recorded ?Last Taken ?Type Diltiazem 10mg/Lidocaine 50mg [place] Rx Instructions [place] . BID #30 01/28/25 Unknown Rx Suppository [...] 09:08 Surgical History H/O umbilical hernia repair [place] teeth extracted Social History household members: spouse [...] 70.4 H, Lymph % (Auto) 10.4 L, [place] % (Auto) 15.8 H, Eos % (Auto) [...] edema. Mild mediastinal adenopathy. Cirrhosis. Reading Location: [facility] Assessment & Plan Assessment/Plan (1) Cellulitis: [...] shock if needed Total time spent in xcnq-ld-cocn encounter in discussion of advanced directive 17 [...] 70.4 H, Lymph % (Auto) 10.4 L, [place] % (Auto) 15.8 H, Eos % (Auto) [...] Clarity Clear, Urine pH 6.5, Ur Specific [place] 1.010, Urine Protein 30 H, Urine Glucose [...] adenopathy. Cirrhosis. Charges/Coding Visit Charges Inpatient E&M: 11981 Init Hosp L3 Procedures Hospitalists Procedures: 30141 Advncd Care Plan 30 Min 07/21/25 1242 Cosigner Signature (if applicable): CC: Dr. Alis Duran MD; Dr. Timoteo Cooper MD~ Signed [facility]09-07-2025 Radiology Diagnostic study note [facility] Imaging Services [address] [place] [address] CTA Chest W/WO Contrast MR#: [id number] Acct: [id number] Name: LEON RIDER Rep #: [id number] : 1980 M 45 From: Giorgio Salinas MD PCP: Dr. Alis Duran MD Status: REG ER Study:CTA Chest W/WO Contrast Date of Exam: 07/21/25 Exam# [id number] Ordering Dr: Krystin Leal DO PROCEDURE: CTA [...] edema. Mild mediastinal adenopathy. Cirrhosis. Reading Location: [facility] CC: Dr. Alis Duran MD; Dr. Denice Leal, DO ~ Hotel Controller: Signed [facility]03-17-2025 Evaluation note* Diagnosis Onset Date Resolution Status Admit Date Anal fissure acute January 28, 2025 2:30pm [facility] Work Phone: 1(492) 560-471005-09-2024 History of Present illness Narrative* Zack Vigil MD - 03/22/2024 9:30 AM EDT Subjective Patient ID: Leon Rider is a 43 y.o. male who presents for Follow-up. Follow-up diabetes hypertension hyperlipidemia cirrhosis HPI Patient feeling okay. In the process of moving, they are moving up to [facility]. Very active packing and moving boxes. No further episodes of chest pain or shortness of breath since last visit, he ultimately did not end up getting a stress test. Review of Systems No weight change management facilitator 4 months Objective Visit Vitals BP 130/80 [...] [facility] Work Phone: 1(424) 651-823511-11-2023 History of Present illness Narrative* Bernabe Dooley [...] Urine Colorless (*) Clarity, Urine Clear Specific [place] Urine 1.010 pH, Urine 6.5 Leukocytes, Urine [...] Procedure Abnormality Status --------- ------ CBC auto differential[[id number]] Abnormal Final result Please view results for [...] Dooley MD 09/25/23 0735 documented in this encounterKirkbride CenterUzkohd32-89-6988 Hospital Discharge instructions* Discharge Instructions* Suki Bales [...] sent through Care Everywhere. * Esophageal Varices (Qatari) documented in this encounterKirkbride CenterWunkux32-07-7800 History of Present illness Narrative* Misty Dodson RN - 02/16/2023 9:[address] Vincent Moses- Portal Hypertensive Gastropathy, (PHG) , Gastric Antral Vascular Ectasia Endoscopic report given to DIRECTOR MEDICAL ECONOMICS - Suki Bales documented in this encounterKirkbride CenterZgsgrd73-60-9420 Attending History and physical note* Vincent Moses [...] note were not included. Kenya Andre NP [facility] Hospitalists History and Physical Same Day Surgery Patient Name:Leon Rider :1980 Admit Date: 4041217 Physicians: Zack Vigil MD (PCP) Perpetual Assessment: Leon Rider is a 42 y.o. male who presented for EGD, per the request of Dr. Moses. [facility] has been asked to see the [...] [] Microbiology [x] Outside Records [] Family [employer] Phone: 1(652) 997-153004-05-2023 History and physical note* Kenya Andre NP - 02/16/2023 9:00 AM EDT Images from the original note were not included. Kenya Andre NP [facility] Hospitalists History and Physical Same Day Surgery Patient Name:Leon Rider :1980 Admit Date: 4041217 Physicians: Zack Vigil MD (PCP) Perpetual Assessment: Leon Rider is a 42 y.o. male who presented for EGD, per the request of Dr. Moses. [facility] has been asked to see the [...] [] Microbiology [x] Outside Records [] [facility] [employer] Phone: 1(645) 770-369604-05-2023 History and physical note* Vincent Moses MD [...] note were not included. Kenya Andre NP [facility] Hospitalists History and Physical Same Day Surgery Patient Name:Leon Rider :1980 Admit Date: 4041217 Physicians: Zack Vigil MD (PCP) Perpetual Assessment: Leon Rider is a 42 y.o. male who presented for EGD, per the request of Dr. Moses. [facility] has been asked to see the [...] note were not included. Kenya Andre NP [facility] Hospitalists History and Physical Same Day Surgery [id number] :1980 Admit Date: 4041217 Physicians: Zack Vigil MD (PCP) Perpetual Assessment: Leon Rider is a 42 y.o. male who presented for EGD, per the request of Dr. Moses. [facility] has been asked to see the [...] Outside Records [] Family documented in this encounterKirkbride CenterDryrwl80-67-4811 Procedure note* Suki Bales RN - 02/16/2023 9:00 AM EDT Pt and verbalize understanding of d/c instructions. Kirkbride CenterXrqcun60-63-2914 Procedure note* Suki Bales RN - 02/16/2023 9:00 AM EDT Pt and verbalize understanding of d/c instructions. documented in this [facility]02-09-2023 History of Present illness Narrative* Cyn Thomas RN - 12/23/2022 10:[address] Mishra, Two bandings applied. Report given to Bianca WAYNE. documented in this [facility]02-09-2023 Hospital Discharge instructions* Discharge Instructions* Bianca Barbour RN - 12/23/2022 10:27 AM EST Follow up with your Primary Care Physician Dr. Mishra can be reached at [phone]. Endoscopy Discharge Instructions Your Procedure Was: Esophagogastroduodenoscopy [...] return to work today. documented in this encounterKirkbride CenterEusmkh96-88-4707 History and physical note* Paul Tad V - 12/23/2022 9:30 AM EST Images from the original note were not included. GASTROENTEROLOGY OUTPATIENT PRE-PROCEDURE NOTE Patient Name: Leon Rider MR #: [id number] Indication: Esophageal varices Brief History: Follows with [...] with endoscopic procedure as scheduled. Paul Mishra [employer] Phone: 1([phone]) 150-176102-09-2023 History and physical note* Paul Mishra V - 12/23/2022 9:30 AM EST Images from the original note were not included. GASTROENTEROLOGY OUTPATIENT PRE-PROCEDURE NOTE Patient Name: Leon Rider MR #: [id number] Indication: Esophageal varices Brief History: Follows with [...] as scheduled. Paul Mishra documented in this encounterKirkbride CenterXnbmlo60-40-0166 Procedure note* Hannah Morales RN - 12/23/2022 9:30 AM EST Patient reports that he would like to come to the appointment of 830 arrival maybe a few minutes late due to has PT appointment prior. Medications as instructed with sips of water on the morning of surgery. Please ensure you have a clamp truck driver, age 18 or greater, and someone with your for 24 hours after anesthesia. No big decisions day after surgery due to anesthesia Flare Breaker: Zelda- Accept Emergency blood transfusion: Yes Kirkbride CenterJygmto28-71-1921 Procedure note* Hannah Morales RN - 12/23/2022 9:30 AM EST Patient reports that he would like to come to the appointment of 830 arrival maybe a few minutes late due to has PT appointment prior. Medications as instructed with sips of water on the morning of surgery. Please ensure you have a clamp truck driver, age 18 or greater, and someone with your for 24 hours after anesthesia. No big decisions day after surgery due to anesthesia Flare Breaker: Zelda- Accept Emergency blood transfusion: Yes documented in this encounterKirkbride CenterFzozjf41-36-1827 History and physical note* Susana Leblanc, - 10/27/2022 3:45 PM EST Images from the original note were not included. GASTROENTEROLOGY OUTPATIENT PRE-PROCEDURE NOTE Patient Name: Leon Rider MR #: [id number] Indication: EV banding Brief History: 42M GLASS [...] endoscopic procedure as scheduled. Susana Leblanc DO [employer] Phone: 1([phone]) 117-647512-14-2022 History and physical note* Susana Leblanc DO - 10/27/2022 3:45 PM EST Images from the original note were not included. GASTROENTEROLOGY OUTPATIENT PRE-PROCEDURE NOTE Patient Name: Leon Rider MR #: [id number] Indication: EV banding Brief History: 42M GLASS [...] scheduled. Susana Leblanc DO documented in this encounterKirkbride CenterYnexrm23-14-7413 Procedure note* Apolonia Dave RN - 10/27/2022 3:[address] Leblanc in to see pt and to discuss findings of procedure . This nurse reviewed d/c instructions also . Both voiced understanding [address]14-2022 Procedure note* Apolonia Dave RN - 10/27/2022 3:[address] Leblanc in to see pt and to discuss findings of procedure . This nurse reviewed d/c instructions also . Both voiced understanding documented in this encounterKirkbride CenterSbptnt46-78-9098 Hospital course Narrative* Ansley Ballard RN - [...] CPAP machine. * You must have a clamp truck driver to take you home Please be sure to bring the following on the day of procedure: clamp truck driver's license or photo ID , and current insurance cards. You may also bring copies of your Living Will or Healthcare Power of Public Interviewer if available. documented in this [facility]06-01-2022 Hospital course Narrative* Loli Zee MD - 04/14/2022 5:26 PM EDT Images from the original note were not included. Loli Zee MD [facility] Hospitalists DISCHARGE SUMMARY Leon Rider . [...] will need to follow-up with a new humane officer/quality assurance lab technician -No acute issues, recommended outpatient follow-up -Continue [...] Your Medications These medications were sent to [facility] [id number] - [place], [place] - [address] [facility] [place] [address] [facility] [address] atenoloL 25 mg tablet hydrOXYzine HCL 25 [...] ibuprofen, aleve, naprosyn etc documented in this encounterKirkbride CenterWhmunt57-90-7229 History of Present illness Narrative* Loli Zee MD - 04/14/2022 2:35 PM EDT Images from the original note were not included. Loli Zee MD [facility] Hospitalists DAILY PROGRESS NOTE Patient Name: [...] will need to follow-up with a new humane officer/quality assurance lab technician -No acute issues, recommended outpatient follow-up -Continue home diuretics. May consider nonselective beta-apoilnar Thrombocytopenia -In the setting of underlying history [...] Back up Transition plan Home Health Care Hat Cleaner Note Patient mentation at time of initial Assessment: A&Ox4. Patient Directives: Has no advance directives and declining information. Patient Next of Kin / Surrogate Decision Maker is his , Zelda Rider. Insurance provider confirmed from chart: Confirmed and correct. PCP confirmed from chart: Confirmed and correct. Living Situation: Patient resides: 2-story house w/basement. Patient with following DME prior to this admission: CPAP through [facility], no additional DME. [...] Independent . [facility] [address]. Patient is able to afford medications. [...] unspecified type [R06.00] [address] [place] [address] confirmed from facesheet/demographics. CODE STATUS at time [...] with Support []Home health care []Inpatient Rehab []care home facility []assisted care []Other: Discharge Destination: [x]Home with []No Needs []Home health care []Inpatient Rehab []care home facility []assisted care []Pending evaluation []TBD []Other: Facility info [...] a plane, noting that he traveled to [place] and back last month, about a 2 [...] negative. I discussed patient's care with admitting [facility] physician, and patient is excepted to their service. Procedures CHARLES Maciel 04/13/22 1435 CHARLES Maciel 04/13/22 1805 documented in this encounterKirkbride CenterMqeiyw01-86-1680 History and physical note* Tye Holbrook MD - 04/13/2022 6:03 PM EDT Images from the original note were not included. Arias Holbrook MD [facility] Hospitalists History and Physical Patient Name:Leon [...] will need to follow-up with a new humane officer/quality assurance lab technician -No acute issues Thrombocytopenia -In the setting [...] [] Family Time Spent: documented in this encounterKirkbride CenterEsmpbt73-55-1692 History of Present illness Narrative* Jean Carlos Isidro RN - 04/22/2021 8:50 AM EDT Reviewed dc with pt and his s/o. All questions answered. Pt in possession of paper oxy Rx. documented in this hhatqnfbqUhjyNvexfs82-71-9851 Miscellaneous Notes* Op Note - Sukhwinder Villalobos MD - 04/22/2021 8:01 AM EDT LEON RIDER [id number] 1980 DATE 04/22/2021 OPERATIVE REPORT SURGEON SUKHWINDER [...] well. SUKHWINDER VILLALOBOS MD D 04/22/2021 07:46 [id number] T 04/22/2021 07:59 BP/MODL * Brief Op Note - Sukhwinder Villalobos MD - 04/22/2021 7:40 AM EDT Brief Post Operative Note Patient Name: Leon Rider : 1980 (40 y.o.) Date of Service: 04/22/2021 CSN: [id number] Procedure(s): REPAIR UMBILICAL HERNIA WITH MESH Pre-Operative Diagnoses: * Umbilical hernia without obstruction and without gangrene [K42.9] Post-Operative Diagnoses: * Same as Pre-Op Diagnosis * Umbilical hernia without obstruction and without gangrene [K42.9] Surgeon(s) and Role: * Sukhwinder Villalobos MD - Primary Anesthesiologist: Ha Alvarado MD BLOCK SPLITTER OPERATOR: Tasneem Flores CRNA Intern: Edith Feldman RN Scrub Person: ST Chris Scrub Person Orientee: ST Sivan Scrub Person Assist: ST Kyler JACK SETTER: Johana Swan RN Operative findings: umbilical hernia Intra and immediate post-operative complications: none Type of anesthesia used: General Estimated blood loss: 10 mL Estimated urine output: Refer to surgical log Specimen(s): * No specimens in log * Implant(s): Implant Name Type Inv. Item Serial No. Proposal Consultant Lot No. LRB No. Used Action PATCH 1.7IN HERNIA W/STRAP SM [address] - [id number] PATCH 1.7IN HERNIA W/STRAP SM [address] [employer] [id number] N/A 1 Implanted Drain(s): * No LDAs found * Wound(s): Wound 04/22/21 Surgical Wound Abdomen (Active) Sukhwinder Villalobos MD 04/22/2021 7:40 AM documented in this [id number] History and physical note* Sukhwinder Villalobos MD - 04/22/2021 6:26 AM EDT INTERVAL HISTORY AND PHYSICAL Patient Name: Leon Rider Admit Date: 6081215 MR #: [id number] : 1980 The H&P has been reviewed and the patient has been examined. I concur with the findings of the H&P. There are no significant changes. It is appropriate to proceed with the planned procedure. Sukhwinder Villalobos MD 04/22/2021 6:26 AM documented in this [id number] Nurse Note* Aleyda Jett RN - 04/17/2021 10:49 AM EDT Patient Instructions for [facility]: Prior to arrival: Please be sure to wear loose, comfortable clothing and non-skid shoes Bring your health insurance information and a photo ID, as well as your Living Will or Durable Power of Public Interviewer for Healthcare if it is available to you. Bring your cane/walker any applicable assistive device. If you currently use a CPAP, please bring this device with you on the day of surgery. Bring a list of your medications with the name of the medication, dose and how often you are takingit. Be sure to include herbal preparations and aaxd-mbf-jadkryq medications on this list. Do not have [...] of lotions, perfumes or powders. All nail german is to be removed from fingernails and [...] the day of your surgery/procedure. Parking at [facility] is free. Please park in the lot in front of the main lobby. Enter the Main Entrance where a Sales Representative Liaison at the information desk will greet [...] to drive yourself home. documented in this encounterNvioHealthConsult note* Clinical Note Date No Information [facility] Work Phone: Discharge summary* Clinical Note Date No Information [facility] Work Phone: Evaluation note* Diagnosis Umbilical hernia without obstruction and without gangrene- Primary Post-op pain Other acute postoperative pain documented in this encounter [facility] note* Diagnosis Body mass index 45.0-49.9, adult (CMS/HCC)- Primary Body Mass Index 45.0-49.9, adult documented in this encounter [facility] note* Diagnosis Stone, kidney Calculus of kidney documented in this encounter [facility] note* Diagnosis Dyspnea, unspecified type- Primary documented in this encounter [facility] note* Diagnosis GLASS (nonalcoholic steatohepatitis) Other chronic nonalcoholic liver disease documented in this encounter [facility] note* Diagnosis Esophageal varices with bleeding (CMS/HCC) documented in this encounter [facility] note* Diagnosis Calculus of kidney Calculus of kidney with calculus of ureter documented in this encounter [facility] note* Diagnosis Esophageal varices without bleeding, unspecified esophageal varices type (CMS/HCC) [I85.00 (ICD-10-CM)]- Primary documented in this encounter [facility] note* Diagnosis Esophageal varices without bleeding, unspecified esophageal varices type (CMS/HCC) [I85.00 (ICD-10-CM)]- Primary documented in this encounter [facility] note* Diagnosis Painless hematuria- Primary documented in this encounter [facility] note* Diagnosis Hyperlipidemia, unspecified hyperlipidemia type- Primary Primary hypertension Unspecified essential hypertension Cirrhosis of liver without ascites, unspecified hepatic cirrhosis type (CMS/HCC) (HCC) Type 2 diabetes mellitus without complication, without long-term current use of insulin (CMS/HCC) (HCC) documented in this encounter [facility] Work Phone: Evaluation note* Type Assessment Date No Information [facility] Work Phone: Evaluation note* Diagnosis Onset Date Resolution Status Admit Date Cellulitis acute Aidee 7th, 2025 12:11pm Chest pain, atypical acute Sept 2024 12:11pm [facility] Work Phone: History and physical note* Clinical Note Date No Information [facility] Work Phone: History and physical note Author Timoteo Cooper [facility] Note Date/Time July 21, 2025 12:42pm [facility] Medical Records Department [address] [place] [address] H&P Exam - Hospitalist 07/21/25 1150 MR#: [id number] Acct: [id number] Name: LEON RIDER Rep #:[id number] : 1980 45 From: Timoteo Mccarthy PCP: Dr. Alis Duran MD Status:ADM [facility] H[facility] - General General Date [...] to 10 years ago. 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 [facility] Medical History HTN (hypertension) Diabetes Acid reflux Rectal bleeding Hemorrhoids Home Medications ?Medication ?Instructions ?Recorded ?Last Taken ?Type Diltiazem 10mg/Lidocaine 50mg See Rx Instructions [place] . BID #30 01/28/25 Unknown Rx Suppository [...] 09:08 Surgical History H/O umbilical hernia repair [place] teeth extracted Social History household members: spouse [...] 70.4 H, Lymph % (Auto) 10.4 L, [place] % (Auto) 15.8 H, Eos % (Auto) [...] edema. Mild mediastinal adenopathy. Cirrhosis. Reading Location: [id number] Assessment & Plan Assessment/Plan (1) Cellulitis: QUALIFIERS: [...] shock if needed Total time spent in nyay-eb-lwqs encounter in discussion of advanced directive 17 [...] 70.4 H, Lymph % (Auto) 10.4 L, [place] % (Auto) 15.8 H, Eos % (Auto) [...] Clarity Clear, Urine pH 6.5, Ur Specific [place] 1.010, Urine Protein 30 H, Urine Glucose [...] adenopathy. Cirrhosis. Charges/Coding Visit Charges Inpatient E&M: 25679 Init Hosp L3 Procedures Hospitalists Procedures: 42621 Advncd Care Plan 30 Min 07/21/25 1242 <Electronically signed by Timoteo Cooper MD> Cosigner Signature (if applicable): CC: Dr. Alis Duran MD; Dr. Timoteo Cooper MD~ Signed [facility] Work Phone: History of Present illness Narrative* [...] Log into your personal health record on [email or web address] and enter J197 in the Education box to learn more about Umbilical Hernia Repair: What to Expect at Home. Current as of: October 03, 2015 Content Version: 11.0 1807-4706 [employer]. Care instructions adapted under license by your healthcare professional. If you have questions about a medical condition or this instruction, always ask your healthcare professional. [employer] disclaims any warranty or liability for your [...] sugar is high. Do not take any wmin-vrx-plovbrp medicines, such as pain relievers, decongestants, or [...] Log into your personal health record on [email or web address] and enter L970 in the Education box to learn more about Diabetes Sick-Day Plan: Care Instructions. Current as of: April 05, 2016 Content Version: 11.0 0679-8787 [employer]. Care instructions adapted under license by your healthcare professional. If you have questions about a medical condition or this instruction, always ask your healthcare professional. [employer] disclaims any warranty or liability for your [...] Care Everywhere. * EGD (Upper Endoscopy): Post-op (Qatari) * Monitored Anesthesia Care: MAC: General Info (Qatari) documented in this [facility]Tr[facility] Discharge instructions* Attachments The following attachments cannot be sent through Care Everywhere. * Hematuria (Qatari) documented in this encounterTrinG[facility]rie [facility]alsp[facility] Discharge instructions Ambulatory Orders* Prior Authorization Referral - ONC/HEM Location: None Selected * Gastroenterology Location: None Selected [facility] Work Phone: Hospital Discharge instructionsAdditional Instructions Follow-up with your primary care provider in the next 3 to 5 days if not improving. Return with new or worsening symptoms. Clear liquid diet, advance as tolerated.[facility] Work Phone: Instructions* Date Instruction Additional Infor mation No Information [facility] Work Phone: Progress note* Clinical Note Date No Information [facility] Work Phone: Progress note Author León Mccray [facility] Note Date/Time August 12, 2025 9:27am [facility] [address] [place] [address] OFFICE VISIT Date of Service: 08/12/25 0823 MR#: [id number] Acct: [id number] Name: LEON RIDER Rep #: [id number] : 1980 From: León Mccray MD Age/Sex: 45/M [place] [facility] [place]: Signed HPI Subjective Date of Service 08/12/25 Chief Complaint Referred for anemia. 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 He has had esophageal varices which has been banded in [place]. Denies recent bleeding [facility] Medical History Hx of cirrhosis Anemia Chronic idiopathic thrombocytopenia HTN (hypertension) Diabetes Acid reflux Rectal bleeding Hemorrhoids Surgical History H/O umbilical hernia repair [place] teeth extracted Family History Other Diabetes Heart [...] Continuous Positive Airway 07/23/25 08/12/25 H istory Pressure([facility] INFORMATIONAL USE ONLY) bumetanide 2 mg [...] applicable) CC: Dr. Alis Duran MD ~ [facility] Work Phone: Progress note Author León Mccray [facility] Note Date/Time August 19, 2025 3: 13pm [facility] [address] [place] [address] OFFICE VISIT Date of Service: 08/19/25 1447 MR#: [id number] Acct: [id number] Name: LEON RIDER Rep #: [id number] : 1980 From: León Mccray MD Age/Sex: 45/M [place] [facility] [place] Status: Signed HPI Subjective Date of Service 08/19/25 Chief Complaint F/u for anemia. 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 He has had esophageal varices which has been banded in [place]. Denies recent bleeding. Had blood work done and comes for follow up. [facility]els well[facility] Hx of cirrhosis Anemia Chronic idiopathic thrombocytopenia HTN (hypertension) Diabetes Acid reflux Rectal bleeding Hemorrhoids Surgical History H/O umbilical hernia repair [place] teeth extracted Family History Other Diabetes Heart [...] Continuous Positive Airway 07/23/25 08/19/25 H istory Pressure([facility] INFORMATIONAL USE ONLY) bumetanide 2 mg [...] applicable) CC: Dr. Alis Duran MD ~ [facility] Work Phone: Reason for referral (narrative)* Reason For Referral No Information [facility] Work Phone: Reason for referral (narrative)No reason for referral information availableSycamore Medical Center Work Phone: Summary Purpose Family History No Family History Records Found Family Member Type Diagnosis Age At Onset No Information Relationship Condition Age at Onset Recorded Date/T jean Not Specified Diabetes mellitus Unknown Cardiac disease Unknown Advance Directives No Advanced Directives Records FoundDocuments on File Type Date Recorded Patient Battery Filler Expl anation Advance Directives and Livin g Will 04/22/2021 7:27 AM Documents on File Type Date Recorded Patient Battery Filler Expl anation Power of Public Interviewer Latest Code Status on File Code Status [...] Do you have a Healthcare Power of Public Interviewer? No July 21, 2025 9:22am Advance Directive Response Recorded Date/ Time Do you have a Healthcare Power of Public Interviewer? No July 21, 2025 1:36pm Advance Directive Response Recorded Date/ Time Do you have a Healthcare Power of Public Interviewer? No August 21, 2025 4:38pm Do you have a Healthcare Power of Public Interviewer? No July 21, 2025 1:36pm Procedure Findings Note [facility] Patient Name: Leon Adry Procedure [...] not included)... Note Patient: LEON RIDER RN: ([id number] Age: 40 years Sex: Male : 1980 [...] summary document to your follow up appointments. [facility] 06/26/20 14:28 [address] [place]. [address] PATIENT INFORMATION Name: LEON RIDER Address: [address] [place] [address] [place] [address] Age: 40 Years Phone: [phone] : 1980 12:[birth year] MRN: ([id number] Sex: Male Race: White Ethnicity: Not Hispan/Lat Admitted From: Clinic or [facility] Medical Service: Gastroenterology Nurse Unit/Bed: ([place]) [facility] N/A Admit Date: 06/26/2020 12:03 PCP: [...] summary document to your follow up appointments. [facility] 06/26/20 14:28 [address] [place]. [address] PATIENT INFORMATION Name: LEON RIDER Address: [address] [place] [address] [place] [address] Age: 40 Years Phone: [phone] : 1980 12:00 MRN: ([facility])-[id number] Sex: Male Race: White Ethnicity: Not Hispan/Lat Admitted From: Clinic or [facility] Medical Service: Gastroenterology Nurse Unit/Bed: [facility]) [facility] N[facility] Admit Date: 06/26/2020 12:03 PCP: [...] Abdomen Limited Dandy Healy MD [address] [place] [address] [facility] [place] Referral ID Status Reason Start Date Expiration Date V isits Requested Visits Authorized [id number] Pending Review 10/13/2021 04/11/2022 1 1 Specialty Diagnoses / Procedures Referred By Contac t Referred To Contact Radiology Diagnoses GLASS (nonalcoholic steatohepatitis) Procedures US Abdomen Limited Nino, MD Thom [address] [facility] [address] [place] [address] [facility] [place] Referral ID Status Reason Start Date Expiration Date V isits Requested Visits Authorized [id number] Authorized 07/15/2022 01/11/2023 1 1 Specialty Diagnoses / Procedures Referred By Contac t Referred To Contact Diagnoses Esophageal varices with bleeding (CMS/HCC) Procedures EGD Anesthesia - MAC; [facility] Carlos Jiménez MD [address] [place] [address] [facility] [place] Referral ID Status Reason Start Date Expiration Date V isits Requested Visits Authorized [id number] Authorized 09/28/2022 03/27/2023 1 1 Specialty Diagnoses / Procedures Referred By Contac t Referred To Contact Diagnoses Esophageal varices without bleeding (CMS/HCC) Procedures EGD Anesthesia - MAC; [facility] Paul Mishra V [address] [place] [address] [facility] [place] Referral ID Status Reason Start Date Expiration Date V isits Requested Visits Authorized [id number] Authorized 12/16/2022 01/16/2023 1 1 Specialty Diagnoses / Procedures Referred By Contac t Referred To Contact Diagnoses Esophageal varices without bleeding (CMS/HCC) Procedures EGD Anesthesia - MAC; [facility] EGD Anesthesia - MAC; [facility] Vincent Moses MD [address] [address] [facility] [place] Referral ID Status Reason Start Date Expiration Date V isits Requested Visits Authorized [id number] Authorized 02/16/2023 03/18/2023 1 1 Chief Complaint [...] section and content) DATE CREATED AUTHOR 12/25/2020 [facility] DATE CREATED AUTHOR AUTHOR'S ORGANIZ ATION 04/10/2021 [facility] DATE CREATED AUTHOR AUTHOR'S ORGANIZ ATION 04/22/2021 [facility] DATE CREATED AUTHOR AUTHOR'S ORGANIZ ATION 03/20/2022 [facility] DATE CREATED AUTHOR AUTHOR'S ORGANIZ ATION 02/18/2023 [facility] DATE CREATED AUTHOR AUTHOR'S ORGANIZ ATION 08/04/2023 [facility] DATE CREATED AUTHOR AUTHOR'S ORGANIZ ATION 09/25/2023 [facility] DATE CREATED AUTHOR AUTHOR'S ORGANIZ ATION 03/24/2024 [facility] DATE CREATED AUTHOR AUTHOR'S ORGANIZ ATION 09/19/2025 [facility] Reason for Visit (unrecogniz ed section and content) Status Reason Specialty Diagnoses / Procedures Referre d By Contact Referred To Contact Diagnoses Umbilical hernia without obstruction and without gangrene Umbilical hernia without obstruction and without gangrene [K42.9] Procedures [place] REPAIR UMBILICAL HERNIA >= 5 YRS REDUC Sukhwinder Villalobos MD [address] [facility] [place] [address] Reason Comments Panic Attack Per EMS report patie nt had anxiety attack at work; Patient states that symptoms resolved on arrival to ED. Specialty Diagnoses / Procedures Referred By Adrian t Referred To Contact Diagnoses SOB (shortness of breath) Dyspnea, unspecified type Procedures Tye Holbrook MD [address] [facility] [address] [place] [address] [place] [phone] Referral ID Status Reason Start Date Expiration Date Visits Re quested Visits Authorized [id number] 1 1 Specialty Diagnoses / Procedures Referred By Adrian t Referred To Contact Radiology Diagnoses GLASS (nonalcoholic steatohepatitis) Procedures US Abdomen Limited Oneill, MD Thom [address] [facility] [address] [place] [address] [facility] [place] Referral ID Status Reason Start Date Expiration Date V isits Requested Visits Authorized [id number] Authorized 07/15/2022 01/11/2023 1 1 Specialty Diagnoses / Procedures Referred By Contac t Referred To Contact Diagnoses Esophageal varices with bleeding (CMS/HCC) Procedures EGD Anesthesia - MAC; [facility] Carlos Jiménez MD [address] [place] [address] [facility] [place] Referral ID Status Reason Start Date Expiration Date V isits Requested Visits Authorized [id number] Authorized 09/28/2022 03/27/2023 1 1 Specialty Diagnoses / Procedures Referred By Contac t Referred To Contact Diagnoses Esophageal varices without bleeding (CMS/HCC) Procedures EGD Anesthesia - MAC; [facility] Paul Mishra V [address] [place] [address] [facility] [place] Referral ID Status Reason Start Date Expiration Date V isits Requested Visits Authorized [id number] Authorized 12/16/2022 01/16/2023 1 1 Specialty Diagnoses / Procedures Referred By Contac t Referred To Contact Diagnoses Esophageal varices without bleeding (CMS/HCC) Procedures EGD Anesthesia - MAC; [facility] EGD Anesthesia - MAC; [facility] Vincent Moses MD [address] [address] [facility] [place] Referral ID Status Reason Start Date Expiration Date V isits Requested Visits Authorized [id number] Authorized 02/16/2023 03/18/2023 1 1 Reason Comments [...] Tasneem Flores [id number] (Stopped - Provider: Jean Carlso Isidro RN) PRN Medication Order 04/20/2021 04/21/2021 [...]
Care Teams (unrecognized sec tion and content) Cotton Inspector Relationship Specialty Start Date End Date Zack Vigil MD [address] [place] [address] PCP - General Internal Medicine 12/02/21 Cotton Inspector Relationship Specialty Start Date End Date Zack Vigil MD [address] [place] [address] PCP - General Internal Medicine 12/02/21 Cotton Inspector Relationship Specialty Start Date End Date Zack Vigil MD [address] [place] [address] PCP - General Internal Medicine 12/02/21 Cotton Inspector Relationship Specialty Start Date End Date Zack Vigil MD [address] [place] [address] PCP - General Internal Medicine 12/02/21 Cotton Inspector Relationship Specialty Start Date End Date Zack Vigil MD [address] [place] [address] PCP - General Internal Medicine 12/02/21 Cotton Inspector Relationship Specialty Start Date End Date Zack Vigil MD [address] [place] [address] PCP - General Internal Medicine 12/02/21 Cotton Inspector Relationship Specialty Start Date End Date Zack Vigil MD [address] [place] [address] PCP - General Internal Medicine 12/02/21 Cotton Inspector Relationship Specialty Start Date End Date Zack Vigil MD [address] [place] [address] PCP - General Internal Medicine 12/02/21 Cotton Inspector Relationship Specialty Start Date End Date Zack Vigil MD [address] [place] [phone] PCP - General Internal Medicine 12/12/19 Roland Chavez [address] [place] [address] Referring Physician Otolaryngology 11/22/23 Thom Oneill MD [address] [place], [place] [address]katya Garg [address] [address] Referring Physician Gastroenterology 11/22/23 Name [...] St art: July 19, 2025 Yusef Mccoy INSPECTOR FILTER TIP, INSPECTOR FILTER TIP-C Attending Provider Active Start: July 19, 2025 Yusef Mccoy INSPECTOR FILTER TIP, INSPECTOR FILTER TIP-C Referring Provider Active Start: July 19, 2025 [...] 2025 End: July 19, 2025 Yusef Mccoy INSPECTOR FILTER TIP, INSPECTOR FILTER TIP-C Attending Provider Active Start: July 19, 2025 End: July 19, 2025 Yusef Mccoy INSPECTOR FILTER TIP, INSPECTOR FILTER TIP-C Referring Provider Active Start: July 19, 2025 [...] 19, 2025 End: July 19, 2025 Yusef [facility] INSPECTOR FILTER TIP, INSPECTOR FILTER TIP-C Attending physician Active Start: July 19, 2025 End: July 19, 2025 Yusef [facility] INSPECTOR FILTER TIP, INSPECTOR FILTER TIP-C Referring Provider Active Start: July 19, 2025 End: July 19, 2025 Team Status: Active Member Role/Relationship Status Dates Dr. Kalia Mcmahan MD Attending physician Active Start: July 19, 2025 Yusef [facility] INSPECTOR FILTER TIP, INSPECTOR FILTER TIP-C Referring Provider Active Start: July 19, 2025 [...] Active Start: August 21, 2025 Dr. Myriam Aguliar DO Referring Provider Active S tart: August [...] BE BASED ON THE PRIMARY CLINICAL RECORDS. [facility]. provides no warranty or guarantee of the accuracy or completeness of information in this document.
[2025-10-26 11:24] LABS: Ammonia 79.9 umol/L (16-60); Lipase 65 U/L (13-75)
[2025-10-26 11:26] LABS: AST(SGOT) 59 U/L (<=37); Alanine Aminotransfer ALT/SGPT 44 U/L (<=46); Albumin, Serum 2.8 g/dL (3.5-5.0); Alkaline Phosphatase 164 U/L (40-129); Anion Gap 14 (5-15); BUN 11 mg/dL (4-19); BUN/Creat Ratio 14.6 RATIO (10-20); Bilirubin, Direct 1.47 mg/dL (0.00-0.30); Calcium,Total 9.2 mg/dL (7.6-11.0); Carbon Dioxide 24.3 mmol/L (21.0-32.0); Chloride 96 mmol/L (98-108); Estimated Creatinine Clearance 186.78 ml/min (50-250); Globulin 4.7 g/dL (2.2-4.2); Glucose 158 mg/dL (70-99); Potassium 3.2 mmol/L (3.3-5.1)
[2025-10-26 12:00] VITALS: BP 134/59; PULSE 73; RESP 23; O2SAT 92
[2025-10-26 12:01] LABS: Hematocrit 30.0 % (40-54); Hemoglobin 9.2 g/dL (13.0-16.5); Immature Granulocytes Count 0.010 X10^3/uL (0.0-0.0); Mean Corp Hgb Conc 30.7 g/dL (32-36); Mean Corpuscular Volume 96.8 fL (80-94); Mean Platelet Vol. 11.0 fl (6.2-12.0); NRBC Flagged by Analyzer 0 % (0-5); POSITIVE MORPHOLOGY YES; Platelet Count 104 K/mm3 (150-450); RBC Distribution Width CV 21.6 % (11.6-14.6); RBC Distribution Width SD 76.4 fl (35.1-43.9); Red Blood Count 3.10 M/mm3 (4.6-6.2); White Blood Count 4.8 K/mm3 (4.4-11.0)
[2025-10-26 12:03] LABS: Differential Indicated SCAN CRITERIA MET
[2025-10-26 12:29] LABS: Anisocytosis 1+
--- NOTE | 2025-10-26 12:40 | EKG12_ITS ---
Test Reason : ARRYTH Blood Pressure : */* mmHG Vent. Rate : 79 BPM Atrial Rate : 79 BPM P-R Int : 164 ms QRS Dur : 88 ms QT Int : 452 ms P-R-T Axes : 65 2 -26 degrees QTcB Int : 518 ms Normal sinus rhythm Nonspecific ST and T wave abnormality Prolonged QT Abnormal ECG Confirmed by ADRIANA CARPIO, SLIM ([id number]), assistant editor JACQUELYN ANDRADE ([id number]) on 10/28/2025 6:42:06 AM Referred By: Confirmed By: SLIM WRIGHT MD
[2025-10-26 13:16] VITALS: BP 136/61; PULSE 83; RESP 18; O2SAT 96
[2025-10-26 13:17] VITALS: BP 136/61; PULSE 83; RESP 18; TEMP 36.6; O2SAT 96
== END 2025-10-26 13:17 | disposition home or self-care (01) ==
PROVIDERS: Emergency Provider Emergency Medicine; PCP Family Medicine; Visit Provider Emergency Medicine
DX: R40.4 Transient alteration of awareness (principal); D64.9 Anemia, unspecified; E87.6 Hypokalemia
CPT/HCPCS: 70450; 71045; 80048; 80076; 81001; 82140; 83690; 83880; 84484; 85025; 85610; 85730; 87631; 93005; 99284; A4216

== ENCOUNTER 2025-11-13 09:11 | Day surgery (SDC) | payer BC, MEDICAID, SELFPAY ==
--- NOTE | 2025-11-11 15:38 | PAT.ANESEVAL ---
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 When Was Last Pacemaker Check QUESTION #4 FULL TEXT: You/Your Family Experience fever (hyperthermia) with Anesthesia Last Oral Intake Last Oral intake: Last Oral Intake NPO since Meds taken in AM with sips of water? Meds patient instructed to take am of surgery PONV PONV - cigar head piercer: PONV - cigar head piercer Female No 11/11/25 09:02 HX of Motion Sickness No 11/11/25 09:02 HX of N/V After Surgery No 11/11/25 09:02 Non-Smoker Yes 11/11/25 09:02 Duration of Surgery greater No 11/11/25 09:02 than 60 minutes Number of Risk Factors 1 11/11/25 09:02 PONV Score Low Risk 11/11/25 09:02 Height & Weight Height & Weight: Anesthesia: Height & Weight Height 5 ft 11 in 10/26/25 10:10 Respiratory Assessment Respiratory Assessment - cigar head piercer: Respiratory Tract Infection Hx - cigar head piercer Hx Respiratory Tract Infection No 11/11/25 09:02 STOP Sleep Apnea STOP Sleep Apnea - cigar head piercer: STOP Sleep Apnea - cigar head piercer Hx Hypertension Yes 11/11/25 09:02 Hx Sleep Apnea Yes 11/11/25 09:02 CPAP Yes 11/11/25 09:02 BIPAP No 11/11/25 09:02 Do you snore loudly (louder than talking or can be heard Do you often feel tired/ fatigued/ sleepy during daytime? Has anyone observed you stop breathing during sleep? STOP Results Positive 11/11/25 09:02 QUESTION #5 FULL TEXT : Do you snore loudly (louder than talking or can be heard through closed doors)? 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 Specify any problems Hx of Preganancy in last 3 N/A 11/11/25 09:02 Months Nurse Filling Out Transfusion VLEHMAN 11/11/25 09:02 & Questions: Date: 11/11/25 11/11/25 09:02 Time: 09:16 11/11/25 09:02 Patient unable to answer at this time (ie. confused, unrespo /Reproduction History /Reproductive History - cigar head piercer: /Reproductive Hx- cigar head piercer Hx Now No 11/11/25 09:02 Gestational Age (in weeks): EDC: Hx Hx Para Hx Section SAB No 11/11/25 09:02 Does the father of the baby or his family experience fever w Father of the baby Malignant Hypertension history comment [facility] Medical History (Updated 11/11/25 @ 09:16 by Lindsay Bauer) Wears glasses Scab History of renal disease Anemia High cholesterol Restless legs Gastric reflux CPAP (continuous positive airway pressure) dependence Sleep apnea History of edema Cardiology follow-up encounter History of echocardiogram History of stress test Chronic venous stasis Anxiety Steatosis of liver SAÚL (obstructive sleep apnea) Kidney stones Cirrhosis Non-smoker Irregular heart beat Congestive heart failure (CHF) Chronic idiopathic thrombocytopenia Hx of cirrhosis Anemia HTN (hypertension) Diabetes Acid reflux Rectal bleeding Hemorrhoids Home Medications ?Medication ?Instructions ?Recorded ?Last Taken ?Type metformin 1,000 mg tablet 1,000 mg PO BID diabetes 01/28/25 10/09/25 History atorvastatin 20 mg tablet 20 mg PO DAILY cholesterol 07/21/25 10/09/25 History omeprazole 40 mg capsule,delayed 40 mg PO DAILY stomach 07/21/25 10/09/25 History release repaglinide 1 mg tablet 1 mg PO BID diabetes 07/21/25 10/09/25 History CPAP - Continuous Positive Airway 07/23/25 Unknown History Pressure([facility] INFORMATIONAL USE ONLY) bumetanide 2 mg tablet 2 mg PO BID #60 tabs 07/26/25 10/09/25 Rx nadolol 20 mg tablet 20 mg PO BID #60 tabs 07/26/25 10/09/25 Rx empagliflozin 10 mg tablet 10 mg PO QAM 10/03/25 11/10/25 History (Jardiance) ropinirole 0.5 mg tablet 0.5 mg PO QDAY 10/03/25 10/07/25 History potassium chloride 20 mEq 20 meq PO DAILY 10/09/25 10/07/25 History tablet,extended release lactulose 10 gram oral packet 10 g PO BID #30 ea 10/26/25 Unknown Rx Allergy/AdvReac Type Severity Reaction Status Date / Time No Known Allergies Allergy Verified 11/11/25 08:58 Family History Other Diabetes Heart disease Surgical History History of esophagogastroduodenoscopy (EGD) H/O umbilical hernia repair [place] teeth extracted Social History household members: spouse housing: house Smoking Status: Never smoker alcohol intake: never substance use type: does not use Audit: Pertinent Findings Pertinent Findings EKG Perinent findings: EKG 10/28/2025. Normal sinus rhythm. Nonspecific ST and T wave abnormality. Prolonged QT. Echo (EF%) pertinent findings: Echo 07/22/2025. Mild concentric left ventricular hypertrophy. Mildly dilated left ventricle. Mild 1+ posteriorly directed mitral valve insufficiency. Inferior hypokinesis. Estimated LVEF 55%. Stage I diastolic dysfunction. Consult pertinent findings: Cardiology note 09/09/2025. Consider adding Jardiance deviance to the medical regimen for his heart failure with preserved ejection fraction. Continue other medical regimen. Patient be reevaluated in our office in 6 months and as needed. Recommendation Anesthesia Recommendation Anesthesia recommendation: OPTIMIZED for anesthesia
[2025-11-13] MEDS: Lactated Ringers 1,000 ML 15 ML IV (09:30)
--- OUTSIDE RECORDS SUMMARY | 2025-11-13 09:33 | XMS RPT_ITS | CCD ---
Author Organization [facility] ion [facility] Care Team Providers Care Deputy Sheriff K9 Handler Name Role Phone Lala VILLALOBOS Referring Unavailable Lala VILLALOBOS Attending Unavailable ZACK VIGIL Primary Care Unavailable Zack Vigil MD Primary Care Provider Lala VILLALOBOS Attending Unavailable Lala VILLALOBOS JNirav Admitting Unavailable ZACK VIGIL Primary Care Unavailable Unavailable Primary Care Provider UnavailPAUL Blanton Attending Unavailab le ZACK VIGIL Primary Care Unavailable Zack Vigil MD Primary Care Provider Zack Vigil MD Primary Care Provider [phone] Zack Vigil MD Primary Care Provider [phone] THOM ONEILL Referring Unavailable ZACK VIGIL Primary Care Unavailable TAD V~[phone], TAD OCHOA Attending Un available TAD [phone], TAD OCHOA Referring Un available ZACK VIGIL [...] Unavailable Zack Vigil MD Primary Care Provider [phone] Roland Chavez Unavailable Thom Oneill MD Unavailable [...] Provider Roger CARPIO, Alis Referring Provider McMorrow DIRECTOR OCCUPATIONAL-C, Yusef Attending Provider McMorrow DIRECTOR OCCUPATIONAL-C, Yusef Referring Provider Dr. Denice Leal DO [...] Physician Alis Duran MD Attending Physician McMorrow DIRECTOR OCCUPATIONAL-C, uYsef Attending Physician Marj CARPIO, Dr. Kalia Ness [...] Unavailable Roger, Chalon Primary Care Unavailable McMorrow DIRECTOR OCCUPATIONAL, Yusef Referring Unavailable McMorrow DIRECTOR OCCUPATIONAL, Yusef Attending Unavailable Roger, Chalon Primary Care [...] sources) Spironolactone; Translations: [SPIRONOLACTONE] Drug Allergy 10-14-2023 [facility] Medications Current Medications Medication [...] twice daily Cpap - Continuous Positive Airway Pressure([facility] Informational Use Only) device (7 sources) Start: 07-23-2025 Cpap - Continu ous Positive Airway Pressure([facility] Informational Use Only) device Active 0 .Route July 23, 2025 12:00am saúl As directed Start: 07-23-2025 Cpap - Continu ous Positive Airway Pressure([facility] Informational Use Only) device Active 0 [...] times a day Stool softener Can get usaa-acf-[id number] for 7 days . 14 capsule 0 [...] Start: 01-18-2016 take 1 capsule by mo [facility] once daily 30 minutes before breakfast omeprazole [...] without long-term current use of insulin (CMS/HCC) ([facility]) Take 1 tablet by mouth 1 time [...] 2 tablets by mouth if needed. Active [id number] 200 actuat albuterol 0.09 mg/actuat metered dose [...] Summary (1)on 025 PT D/C Summary (1) [facility] Physical Therapy [facility] [address] [place] [address]. [address] [place] [address] / REHABILITATION SERVICES DISCHARGE SUMMARY MR#: [id number] Acct: [id number] Name: LEON RIDER Rep #: [id number] : 1980 45 From: Carlos Bowden DPT, [...] please feel free to call me at [phone]. Thank you for the referral of this patient. Sincerely, Carlos Bowden, DPT, OCS, CSCS Balance/Gait/Functional tests Balance/Special Test Scores Functional Gait Assessment Score: 27 % Disability: 10.0000 Lower Extremity Functional Score: 74 TUG Test Time Seconds: 8 Tug Test: <20 sec.=mostly independent 30 Second Chair Rise Test Seconds: 8 Improvement % Improvement: 90 09/16/25 8541 CC: Dr. Alis Duran MD; Dr. Myriam Aguilar DO EBG Signed Normal [facility] Cardiology Visit Reporton Cardiology Visit Report [facility] [address] [place] [address] OFFICE VISIT Date of Service: 09/09/25 MR#: [id number] Acct: [id number] Name: LEON RIDER Rep #: [id number] : 1980 Provider: Dr. Jocelyne cruz MD Age/Sex: 45/M Location: [facility] Status: Signed HPI HPI History of Present [...] Monitor Intake Visit Reasons: Heart failure (ROGER) Medical Imaging Technician Required: No Accompanied by: Self Is patient [...] - Continuous Positive Airway 07/23/25 08/19/25 History Pressure([facility] INFORMATIONAL USE ONLY) bumetanide 2 mg [...] esophagogastroduodenosc opy (EGD) H/O umbilical hernia repair [place] teeth extracted Family History Other Diabetes Heart disease Social History household members: spouse housing: house Smoking Status: Never smoker alcohol intake: never substance use type: does not use ROS Const Const: Positive for fatigue (dx: anemia); Negative for weakness Eyes Eyes: Negative for change in vision ENT ENT: Positive for dizziness (right ear drum rup (more content not included)... Normal [facility] Absolute lymphocyte countOrd ered By: Vincenzo Chavarria on 08-21-2025 Lymphocytes Auto (Unsp spec) [#/Vol] 1.11 10*3/uL 0.83-4.51 [facility] Absolute neutrophil countOrd ered By: Vincenzo Chavarria on 08-21-2025 Neutrophils (Bld) [#/Vol] 3.6 10*3/uL 2.0-7.7 [facility] Anion gap in Serum or Plasma Ordered By: Vincenzo Chavarria on 08-21-2025 Anion gap [Moles/Vol] 20 mmol/L High 5-15 [facility] Automated lymphocyte count a s percentage of total leukocytesOrdered By: Vincenzo Chavarria on 08-21-2025 Lymphocytes/100 WBC Auto (Unsp spec) 17.7 % Low 19-41 [facility] BUN/creatinine ratioOrdered By: Vincenzo Chavarria on 08-21-2025 Urea nitrogen/Creatinine [Mass ratio] 18.2 mg/mg 09-02 [facility] Basic Metabolic Profile (BMP )on 08-21-2025 BUN/CRE 18.2 RATIO Normal 09-02 [facility] Comment on above: Performed By: #### L 501.080 #### [facility] Laboratory [address] [place], [place], [address] Calcium [Mass/Vol] 9.0 mg/dL Normal 7.6-11.0 [facility] Comment on above: Performed By: #### L 501.080 #### [facility] [address] [place], [address] Chloride [Moles/Vol] 96 mmol/L Low 98-108 [facility] Comment on above: Performed By: #### L 501.080 #### [facility] [address] [place], [address] CO2 [Moles/Vol] 21.1 mmol/L Normal 21.0-32.0 [facility] Comment on above: Performed By: #### L 501.080 #### [facility] [address] [place], [address] Creatinine [Mass/Vol] 0.82 mg/dL Normal 0.70-1.20 [facility] Comment on above: Performed By: #### L 501.080 #### [facility] [address] [place], [address] ECRCL 160.45 ml/min Normal 50-250 [facility] Comment on above: Performed By: #### L 501.080 #### [facility] [address] [place], [address] GAP 20 High 5-15 [facility] Comment on above: Performed By: #### L 501.080 #### [facility] [address] [place], [address] GFR/1.73 sq M.predicted among non-blacks MDRD (S/P/Bld) [Vol rate/Area] 109 mL/min/{1.73_m2} Normal >60 [facility] Comment on above: Result Comment: mL/m in/1.73m2 CKD-EPI Creatinine Equation (2020) Performed By: #### L 501.080 #### [facility] [address] [place], [address] Glucose [Mass/Vol] 83 mg/dL Normal 70-99 [facility] Comment on above: Performed By: #### L 501.080 #### [facility] [address] [place], [address] Potassium [Moles/Vol] 3.4 mmol/L Normal 3.3-5.1 [facility] Comment on above: Performed By: #### L 501.080 #### [facility] [address] [place], [address] Sodium [Moles/Vol] 136 mmol/L Normal 133-145 [facility] Comment on above: Performed By: #### L 501.080 #### [facility] [address] [place], [address] Urea nitrogen [Mass/Vol] 15 mg/dL Normal 4-19 [facility] Comment on above: Performed By: #### L 501.080 #### [facility] [address] [place], [place], [address] Basophil percentageOrdered B y: Vincenzo Chavarria on 08-21-2025 Basophils/100 WBC (Bld) 1.6 % High 0-1 [facility] Bilirubin Test strip Ql (U)O rdered By: Vincenzo Chavarria on 08-21-2025 Bilirubin Ql (U) Negative Negative [facility] Blood manual differential co mment interpretation (narrative result)Ordered By: Vincenzo Chavarria on 08-21-2025 Manual differential comment Hans (Bld) [Interp] SCANNED [facility] Blood polychromasia detectio n by light microscopyOrdered By: Vincenzo Chavarria on 08-21-2025 Polychromasia LM Ql (Bld) 1+ [facility] Brain/Head without Contrasto n 08-21-2025 Brain/Head without Contrast [facility] [address] [place], [place] [id number] Brain/Head without Contrast MR#: [id number] Acct: [id number] Name: LEON RIDER Rep #: [id number] : 1980 M 45 From: Elieser Morrison MD PCP: Dr. Alis Duran MD Status: REG ER Study: Brain/Head without Contrast Date of Exam: 07/08 Exam# [id number] Ordering Dr: Vincenzo Chavarria MD EXAM: CT [...] with MRI is recommended. Reading Location: [facility] CC: Dr. Vincenzo Chavarria MD; Dr. Alis Duran MD Senior Mechanical Designer: Signed Normal [facility] CBC W/Diff, Automatedon POLYCHROMASIA 1+ Normal [facility] Comment on above: Performed By: #### L 501.080 #### [facility] [address] [place], [address] Anisocytosis Ql (Bld) 2+ Normal [facility] Comment on above: Performed By: #### L 501.080 #### [facility] [address] [place], [address] PLT EST SLT DEC Normal ADEQ [facility] Comment on above: Performed By: #### L 501.080 #### [facility] [address] [place], [address] SMEAR COMMENT SCANNED Normal [facility] Comment on above: Performed By: #### L 501.080 #### [facility] [address] [place], [place], [address] MPV TNP Normal 6.2-12.0 [facility] Comment on above: Performed By: #### L 501.080 #### [facility] [address] [place], [place], [address] PLT TNP Normal 150-450 [facility] Comment on above: Result Comment: Arnie khan note: For this sample, a platelet estimate is provided rather than a platelet count due to platelet clumping. Other parameters associated with this sample are not affected by platelet clumping. If a more accurate platelet count is required, a redraw of the patient will be necessary. Performed By: #### L 501.080 #### [facility] [address] [place], [place], [address] Carbon dioxide, total [Moles /volume] in Central venous bloodOrdered By: Vincenzo Chavarria on 08-21-2025 CO2 [Moles/Vol] 21.1 mmol/L 21.0-32.0 [facility] Chest 1 View (Portable)on Chest 1 View (Portable) [facility] Imaging Services [address] [place], [place] [address] Chest 1 View (Portable) MR#: [id number] Acct: [id number] Name: LEON RIDER Rep #: [id number] : 1980 M 45 From: Elieser Morrison MD PCP: Dr. Alis Duran MD Status: REG ER Study: Chest 1 View (Portable) Date of Exam: 08/21/25 Exam# [id number] Ordering Dr: Vincenzo Chavarria MD EXAM: XR Chest, 1 View CLINICAL INDICATION: CONGESTIVE HEART FAILURE TECHNIQUE: Frontal view of the chest. COMPARISON: No relevant prior studies available. FINDINGS: LUNGS AND PLEURAL SPACES: See below. HEART: Cardiomegaly with mild congestion. MEDIASTINUM: Unremarkable. Normal mediastinal contour. BONES/JOINTS: Unremarkable. No acute fracture. RAD/Chest 1 View (Portable) IMPRESSION: Cardiomegaly with mild congestion. Reading Location: [facility] CC: Dr. Vincenzo Chavarria MD; Dr. Alis Duran MD Senior Mechanical Designer: Signed Normal [facility] Chloride assayOrdered By: Dez Chavarria on 08-21-2025 Chloride [Moles/Vol] 96 mmol/L Low 98-108 [facility] Emergency Department Summary on 08-21-2025 Emergency Department Summary [facility] Medical Records Department [address] [place] [address] Emergency Department Summary 08/21/25 MR#: [id number] Acct: [id number] Name: LEON RIDER Rep #: [id number] : 1980 45 From: Vincenzo Chavarria MD [...] feel slightly off balance when he walks. [facility] Medical History Kidney stones Cirrhosis Non-smoker [...] - Continuous Positive Airway 07/23/25 Unknown History Pressure([facility] INFORMATIONAL USE ONLY) bumetanide 2 mg [...] disease Surgical History H/O umbilical hernia repair [place] teeth extracted Social History household members: spouse [...] 08/21/25 19: (more content not included)... Normal [facility] Eosinophil percentageOrdered By: Vincenzo Chavarria on 08-21-2025 Eosinophils/100 WBC (Bld) 8.8 % High 0-5 [facility] Erythrocyte distribution wid th ratioOrdered By: Vincenzo Chavarria on 08-21-2025 Erythrocyte distribution width (RBC) [Ratio] 23.9 % High 11.6-14.6 [facility] Erythrocyte distribution wid th standard deviationOrdered By: Vincenzo Chavarria on 08-21-2025 Erythrocyte distribution width (RBC) [Ratio] 73.9 fl High 35.1-43.9 [facility] Glomerular filtration rate ( GFR) estimation/1.73 sq m using serum, plasma, or whole bOrdered By: Vincenzo Chavarria on 08-21-2025 GFR/1.73 sq M.predicted among non-blacks MDRD (S/P/Bld) [Vol rate/Area] 109 mL/min/{1.73_m2} >60 [facility] Comment on above: mL/min/1.73m2 CKD-EP I Creatinine Equation (2020) Hematocrit Auto (Bld) [Volum e fraction]Ordered By: Vincenzo Chavarria on 08-21-2025 Hematocrit (Bld) [Volume fraction] 32.6 % Low 40-54 [facility] Hemoglobin measurementOrdere d By: Vincenzo Chavarria on 08-21-2025 Hemoglobin (Bld) [Mass/Vol] 10.4 g/dL Low 13.0-16.5 [facility] Immature granulocytes/100 WB C Auto (Bld)Ordered By: Vincenzo Chavarria on 08-21-2025 Immature granulocytes/100 WBC (Bld) 0.300 % 0.0-0.9 [facility] Comment on above: IG% - Immature Granu locytes (promyelocytes, myelocytes and metamyelocytes) > 1% indicates that a LEFT SHIFT is Present. Ketones Test strip Ql (U)Ord ered By: Vincenzo Chavarria on 08-21-2025 Ketones Ql (U) 5 mg/dl High Negative [facility] Laboratory - Hematology and Cell countsOrdered By: Vincenzo Chavarria on 08-21-2025 Anisocytosis Ql (Bld) 2+ [facility] MCV (mean corpuscular volume ) determinationOrdered By: Vincenzo Chavarria on 08-21-2025 MCV (RBC) [Entitic vol] 84.9 fL 80-94 [facility] Mean corpuscular hemoglobin (MCH) determinationOrdered By: Vincenzo Chavarria on 08-21-2025 MCH (RBC) [Entitic mass] 27.1 pg 27.0-32.0 [facility] Mean corpuscular hemoglobin concentration (MCHC) determinationOrdered By: Vincenzo Chavarria on 08-21-2025 MCHC (RBC) [Mass/Vol] 31.9 g/dL Low 32-36 [facility] Mean platelet volume determi nationOrdered By: Vincenzo Chavarria on 08-21-2025 Mean platelet volume determination TNP [facility] Comment on above: Test not performed Microscopic analysis of urin e for red blood cells (RBC)Ordered By: Vincenzo Chavarria on 08-21-2025 Microscopic analysis of urine for red blood cells (RBC) 0-5 SEEN /hpf 0-5 [facility] Monocyte percentageOrdered B y: Vincenzo Chavarria on 08-21-2025 Monocytes/100 WBC (Bld) 14.2 % High 0-10 [facility] Mucus LM Ql (Urine sed)Order ed By: Vincenzo Chavarria on 08-21-2025 Mucus Ql (Urine sed) 0 SEEN /hpf [facility] Natriuretic peptide.B prohor reji N-Terminal [Mass/volume] in Serum or PlasmaOrdered By: Vincenzo Chavarria on 08-21-2025 Natriuretic peptide.B prohormone N-Terminal [Mass/Vol] 188 pg/mL <450 [facility] Comment on above: Heart Failure Unlike ly: < 300 pg/mLHeart Failure Likely< 50 Years: > 450 pg/mL50-75 Years: > 900 pg/mL>75 Years: > 1800 pg/mL Neutrophil percentageOrdered By: Vincenzo Chavarria on 08-21-2025 Neutrophils/100 WBC (Bld) 57.4 % 47-70 [facility] Nitrite Test strip Ql (U)Ord ered By: Vincenzo Chavarria on 08-21-2025 Nitrite Ql (U) Negative Negative [facility] Nucleated red blood cell per centageOrdered By: Vincenzo Chavarria on 08-21-2025 Nucleated RBC/100 WBC (Bld) [Ratio] 0 % 0-5 [facility] Platelet countOrdered By: Dez Chavarria on 08-21-2025 Platelet count TNP [facility] Comment on above: Test not performedPl [...] Platelets LM Ql (Bld) SLT DEC ADEQ [facility] Potassium measurement (mass/ volume)Ordered By: Vincenzo Chavarria on 08-21-2025 Potassium (Unsp spec) [Mass/Vol] 3.4 mmol/L 3.3-5.1 [facility] Pro- Brain NATRIURETIC PEPTI Chaparro 08-21-2025 Natriuretic peptide B (Bld) [Mass/Vol] 188 pg/mL Normal <=450 [facility] Comment on above: Result Comment: Hear t Failure Unlikely: < 300 pg/mL Heart Failure Likely < 50 Years: > 450 pg/mL 50-75 Years: > 900 pg/mL >75 Years: > 1800 pg/mL Performed By: #### L 501.080 #### [facility] [address] [place], [address] Protein Test strip Ql (U)Ord ered By: Vincenzo Chavarria on 08-21-2025 Protein Ql (U) 15 mg/dl High Negative [facility] RBC Auto (Bld) [#/Vol]Ordere d By: Vincenzo Chavarria on 08-21-2025 RBC (Bld) [#/Vol] 3.84 10*6/uL Low 4.6-6.2 [facility] Serum creatinine measurement (mass/volume)Ordered By: Vincenzo Chavarria on 08-21-2025 Creatinine [Mass/Vol] 0.82 mg/dL 0.70-1.20 [facility] Serum glucose measurement (m ass/volume)Ordered By: Vincenzo Chavarria on 08-21-2025 Glucose [Mass/Vol] 83 mg/dL 70-99 [facility] Serum or plasma calcium wilfred urement (mass/volume)Ordered By: Vincenzo Chavarria on 08-21-2025 Calcium [Mass/Vol] 9.0 mg/dL 7.6-11.0 [facility] Serum or plasma urea nitroge n measurement (mass/volume)Ordered By: Vincenzo Chavarria on 08-21-2025 Urea nitrogen [Mass/Vol] 15 mg/dL 4-19 [facility] Sodium levelOrdered By: Vincenzo Chavarria on 08-21-2025 Sodium [Moles/Vol] 136 mmol/L 133-145 [facility] Squamous epithelial cells de tection in urine sediment by light microscopyOrdered By: Vincenzo Chavarria on 08-21-2025 Epithelial cells.squamous LM Ql (Urine sed) 0-5 SEEN /hpf 0-5 [facility] Urinalysis, Completeon 08-21 EPI,SQUAMOUS 0-5 SEEN Normal 0-5 [facility] Comment on above: Order Comment: CLEAN CATCH Performed By: #### L 501.080 #### [facility] [address] [place], [address] RBC 0-5 SEEN Normal 0-5 [facility] Comment on above: Order Comment: CLEAN CATCH Performed By: #### L 501.080 #### [facility] [address] [place], [address] WBC 0-5 SEEN Normal 0-5 [facility] Comment on above: Order Comment: CLEAN CATCH Performed By: #### L 501.080 #### [facility] [address] [place], [address] BACTERIA 0 SEEN Normal None Seen [facility] Comment on above: Order Comment: CLEAN CATCH Performed By: #### L 501.080 #### [facility] [address] [place], [address] Mucus Ql (Urine sed) 0 SEEN Normal [facility] Comment on above: Order Comment: CLEAN CATCH Performed By: #### L 501.080 #### [facility] [address] [place], [address] Urine clarityOrdered By: Anastacia Chavarria on 08-21-2025 Clarity (U) Cloudy Clear [facility] Urine color determinationOrd ered By: Vincenzo Chavarria on 08-21-2025 Color (U) Yellow Yellow [facility] Urine glucose detectionOrder ed By: Vincenzo Chavarria on 08-21-2025 Glucose Ql (U) Normal mg/dl Normal [facility] Urine leukocyte esterase det ection by dipstickOrdered By: Vincenzo Chavarria on 08-21-2025 Leukocyte esterase Test strip Ql (U) Negative Negative [facility] Urine pHOrdered By: Vincenzo ace on 08-21-2025 pH (U) 6.0 [pH] 5.0 - 8.0 [facility] Urine sediment bacteria coun t by microscopy (number/high power field)Ordered By: Vincenzo Chavarria on 08-21-2025 Bacteria LM.HPF (Urine sed) [#/Area] 0 /[HPF] None Seen [facility] Urine specific gravity measu rementOrdered By: Vincenzo Chavarria on 08-21-2025 Specific gravity (U) [Rel density] 1.020 1.002-1.03 0 [facility] Urine urobilinogen measureme ntOrdered By: Vincenzo Chavarria on 08-21-2025 Urobilinogen Ql (U) 1 mg/dl High Normal [facility] White blood cell (WBC) count Ordered By: Vincenzo Chavarria on 08-21-2025 WBC (Bld) [#/Vol] 6.3 10*3/uL 4.4-11.0 [facility] White blood cell countOrdere d By: Vincenzo Chavarria on 08-21-2025 White blood cell count 0-5 SEEN /hpf 0-5 [facility] Oncology Visit Reporton Oncology Visit Report [facility] [address] [place] [address]. [place] [address] OFFICE VISIT Date of Service: 08/19/25 1447 MR#: [id number] Acct: [id number] Name: LEON RIDER Rep #: [id number] : 1980 From: León Mccray MD Age/Sex: 45/M Location: [facility] Status: Signed HPI Subjective Date of Service 08/19/25 Chief Complaint F/u for anemia. 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 He has had esophageal varices which has been banded in [place]. Denies recent bleeding. Had blood work done and comes for follow up. Feels well. [facility] History Hx of cirrhosis Anemia Chronic idiopathic thrombocytopenia HTN (hypertension) Diabetes Acid reflux Rectal bleeding Hemorrhoids Surgical History H/O umbilical hernia repair [place] teeth extracted Family History Other Diabetes Heart [...] - Continuous Positive Airway 07/23/25 08/19/25 History Pressure([facility] INFORMATIONAL USE ONLY) bumetanide 2 mg [...] applicable) CC: (more content not included)... Normal [facility] Haptoglobinon 08-13-2025 HAPTOGLOBIN 38 mg/dL Normal 23-355 [facility] Comment on above: Result Comment: Perf ormed at: - Lab[address] [id number] [facility] Skiver: Tres Cm PhD, Phone: [phone] Performed By: #### L 500.0487, L100.0100 #### [facility] [address] [place], [address] Inital Evaluation (1) - PTon 08-13-2025 Inital Evaluation (1) - PT [facility] Physical Therapy [facility]. [address] [place] [address] / REHABILITATION SERVICES INITIAL EVALUATION MR#: [id number] Acct: [id number] Name: LEON RIDER Rep #: [id number] : 1980 45 From: Carlos Bowden DPT, OCS, CSCS Referring Dr.: Dr. Myriam Aguilar DO Status: REG RCR Insurance: [employer] SELF PAY INSURANCE Patient's Visit Information Visit [...] Getting around poorly limits him. 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 For Medicare only, by signing this I certify the plan of care. Please let me know if there are questions or concerns regarding this plan of care. Physician Signature: Date: 08/13/25 1312 CC: Dr. Alis Duran MD; Dr. Myriam Aguilar DO EBG Signed Normal [facility] Stool Occult Blood iFOBon STOB Normal Reference Ran ge = Negative Immunochemical Fecal Occult Blood (iFOBT) method. Hemoccult Stl Ql IA Limitation: Menstrual bleeding, constipation bleeding, bleeding hemorrhoids, and urinary bleeding conditions may interfere with test. Occult Blood A Positive A OCCULT BLOOD POSITIVE Normal [facility] Comment on above: Performed By: #### L 501.080 #### [facility] [place], [address] Stool gastrointestinal hemog lobin detection by immunologic methodOrdered By: León Mccray on 08-13-2025 Lower GI hemoglobin IA Ql (Stl) Positive Abnormal [facility] Absolute lymphocyte countOrd ered By: León Mccray on 08-12-2025 Lymphocytes Auto (Unsp spec) [#/Vol] 1.04 10*3/uL 0.83-4.51 [facility] Absolute neutrophil countOrd ered By: León Mccray on 08-12-2025 Neutrophils (Bld) [#/Vol] 2.5 10*3/uL 2.0-7.7 [facility] Activated partial thrombopla stin time (aPTT) in platelet poor plasma by coagulation aOrdered By: León Mccray on 08-12-2025 aPTT Coag (PPP) [Time] 35.9 s 24.1-36.2 [facility] Anion gap in Serum or Plasma Ordered By: León Mccray on 08-12-2025 Anion gap [Moles/Vol] 16 mmol/L High 5-15 [facility] Automated lymphocyte count a s percentage of total leukocytesOrdered By: León Mccray on 08-12-2025 Lymphocytes/100 WBC Auto (Unsp spec) 20.1 % - [facility] BUN/creatinine ratioOrdered By: León [facility] on 08-12-2025 Urea nitrogen/Creatinine [Mass ratio] 14.6 mg/mg 10-20 [facility] Basophil percentageOrdered B y: León Mccray on 08-12-2025 Basophils/100 WBC (Bld) 2.1 % High 0-1 [facility] Bilirubin Test strip Ql (U)O rdered By: León Mccray on 08-12-2025 Bilirubin Ql (U) Negative Negative [facility] Bilirubin, totalOrdered By: León Mccray on 08-12-2025 Bilirubin [Mass/Vol] 2.60 mg/dL High 0.00-1.30 [facility] Blood manual differential co mment interpretation (narrative result)Ordered By: León Mccray on 08-12-2025 Manual differential comment Hans (Bld) [Interp] SCANNED [facility] CBC W/Diff, Automatedon 07-16 Anisocytosis Ql (Bld) 2+ Normal [facility] Comment on above: Performed By: #### L 506.0200, L503.0106, L100.9950, L503.6030, L503.6550 #### [facility] [address] [place], [place], [id number] SMEAR COMMENT SCANNED Normal [facility] Comment on above: Performed By: #### L 506.0200, L503.0106, L100.9950, L503.6030, L503.6550 #### [facility] [address] [place], [address] CRPon 08-12-2025 C-REACTIVE PROT 33.40 mg/L High 0.0-3.0 [facility] Comment on above: Performed By: #### L 506.0200, L503.0106, L100.9950, L503.6030, L503.6550 #### [facility] [address] [place], [address] Carbon dioxide, total [Moles /volume] in Central venous bloodOrdered By: León Mccray on 08-12-2025 CO2 [Moles/Vol] 22.0 mmol/L 21.0-32.0 [facility] Chloride assayOrdered By: Radha Mccray on 08-12-2025 Chloride [Moles/Vol] 96 mmol/L Low 98-108 [facility] Comprehensive Metabolic Prof ilon 08-12-2025 Albumin [Mass/Vol] 2.6 g/dL Low 3.5-5.0 [facility] Comment on above: Performed By: #### L 506.0200, L503.0106, L100.9950, L503.6030, L503.6550 #### [facility] [address] [place], [address] Albumin/Globulin [Mass ratio] 0.5 {ratio} Low 0.9-2.4 [facility] Comment on above: Performed By: #### L 506.0200, L503.0106, L100.9950, L503.6030, L503.6550 #### [facility] [address] [place], [address] ALK PHOS 115 U/L Normal 40-129 [facility] Comment on above: Performed By: #### L 506.0200, L503.0106, L100.9950, L503.6030, L503.6550 #### [facility] [address] [place], [address] ALT [Catalytic activity/Vol] 28 U/L Normal <=46 [facility] Comment on above: Performed By: #### L 506.0200, L503.0106, L100.9950, L503.6030, L503.6550 #### [facility] [address] [place], [address] AST [Catalytic activity/Vol] 65 U/L High <=37 [facility] Comment on above: Result Comment: Hemo lysis present, Results??could be affected. ?? Hemolysis present, Results??could be affected. ?? Hemolysis present, Results??could be affected. ?? Performed By: #### L 506.0200, L503.0106, L100.9950, L503.6030, L503.6550 #### [facility] [address] [place], [address] Bilirubin [Mass/Vol] 2.60 mg/dL High 0.00-1.30 [facility] Comment on above: Performed By: #### L 506.0200, L503.0106, L100.9950, L503.6030, L503.6550 #### [facility] [address] [place], [address] BUN/CRE 14.6 RATIO Normal 10-20 [facility] Comment on above: Performed By: #### L 506.0200, L503.0106, L100.9950, L503.6030, L503.6550 #### [facility] [address] [place], [address] Calcium [Mass/Vol] 8.0 mg/dL Normal 7.6-11.0 [facility] Comment on above: Performed By: #### L 506.0200, L503.0106, L100.9950, L503.6030, L503.6550 #### [facility] [address] [place], [address] Chloride [Moles/Vol] 96 mmol/L Low 98-108 [facility] Comment on above: Performed By: #### L 506.0200, L503.0106, L100.9950, L503.6030, L503.6550 #### [facility] [address] [place], [address] CO2 [Moles/Vol] 22.0 mmol/L Normal 21.0-32.0 [facility] Comment on above: Performed By: #### L 506.0200, L503.0106, L100.9950, L503.6030, L503.6550 #### [facility] [address] [place], [address] Creatinine [Mass/Vol] 0.72 mg/dL Normal 0.70-1.20 [facility] Comment on above: Performed By: #### L 506.0200, L503.0106, L100.9950, L503.6030, L503.6550 #### [facility] [address] [place], [address] GAP 16 High 5-15 [facility] Comment on above: Performed By: #### L 506.0200, L503.0106, L100.9950, L503.6030, L503.6550 #### [facility] [address] [place], [address] GFR/1.73 sq M.predicted among non-blacks MDRD (S/P/Bld) [Vol rate/Area] 113 mL/min/{1.73_m2} Normal >60 [facility] Comment on above: Result Comment: mL/m in/1.73m2 CKD-EPI Creatinine Equation (2020) Performed By: #### L 506.0200, L503.0106, L100.9950, L503.6030, L503.6550 #### [facility] [address] [place], [address] Globulin (S) [Mass/Vol] 5.7 g/dL High 2.2-4.2 [facility] Comment on above: Performed By: #### L 506.0200, L503.0106, L100.9950, L503.6030, L503.6550 #### [facility] [address] [place], [address] Glucose [Mass/Vol] 133 mg/dL High 70-99 [facility] Comment on above: Performed By: #### L 506.0200, L503.0106, L100.9950, L503.6030, L503.6550 #### [facility] [address] [place], [address] Potassium [Moles/Vol] 3.5 mmol/L Normal 3.3-5.1 [facility] Comment on above: Result Comment: Hemo lysis present, Results??could be affected. ?? Hemolysis present, Results??could be affected. ?? Performed By: #### L 506.0200, L503.0106, L100.9950, L503.6030, L503.6550 #### [facility] [address] [place], [address] Sodium [Moles/Vol] 135 mmol/L Normal 133-145 [facility] Comment on above: Performed By: #### L 506.0200, L503.0106, L100.9950, L503.6030, L503.6550 #### [facility] [address] [place], [address] T PROT 8.3 g/dL Normal 5.9-8.4 [facility] Comment on above: Performed By: #### L 506.0200, L503.0106, L100.9950, L503.6030, L503.6550 #### [facility] [address] [place], [place], [id number] Urea nitrogen [Mass/Vol] 11 mg/dL Normal 4-19 [facility] Comment on above: Performed By: #### L 506.0200, L503.0106, L100.9950, L503.6030, L503.6550 #### [facility] [address] [place], [place], [address] Eosinophil percentageOrdered By: León Mccray on 08-12-2025 Eosinophils/100 WBC (Bld) 13.1 % High 0-5 [facility] Erythrocyte Sed Rateon 08-12 SED RATE 76 mm/hr High 0-20 [facility] Comment on above: Performed By: #### L 506.0200, L503.0106, L100.9950, L503.6030, L503.6550 #### [facility] [address] [place], [address] Erythrocyte distribution wid th ratioOrdered By: León Mccray on 08-12-2025 Erythrocyte distribution width (RBC) [Ratio] 24.8 % High 11.6-14.6 [facility] Erythrocyte distribution wid th standard deviationOrdered By: León Shazia on 08-12-2025 Erythrocyte distribution width (RBC) [Ratio] 77.5 fl High 35.1-43.9 [facility] Erythrocyte sedimentation ra teOrdered By: León Mccray on 08-12-2025 ESR (Bld) [Velocity] 76 mm/h High 0-20 [facility] Ferritinon 08-12-2025 Ferritin [Mass/Vol] 60 ng/mL Normal 37-417 [facility] Comment on above: Performed By: #### L 506.0200, L503.0106, L100.9950, L503.6030, L503.6550 #### [facility] [address] [place], [place], [id number] Glomerular filtration rate ( GFR) estimation/1.73 sq m using serum, plasma, or whole bOrdered By: León Mccray on 08-12-2025 GFR/1.73 sq M.predicted among non-blacks MDRD (S/P/Bld) [Vol rate/Area] 113 mL/min/{1.73_m2} >60 [facility] Comment on above: mL/min/1.73m2 CKD-EP I Creatinine Equation (2020) Hematocrit Auto (Bld) [Volum e fraction]Ordered By: León Mccray on 08-12-2025 Hematocrit (Bld) [Volume fraction] 32.2 % Low 40-54 [facility] Hemoglobin measurementOrdere d By: León Mccray on 08-12-2025 Hemoglobin (Bld) [Mass/Vol] 10.0 g/dL Low 13.0-16.5 [facility] Immature granulocytes/100 WB C Auto (Bld)Ordered By: León Mccray on 08-12-2025 Immature granulocytes/100 WBC (Bld) 0.400 % 0.0-0.9 [facility] Comment on above: IG% - Immature Granu locytes (promyelocytes, myelocytes and metamyelocytes) > 1% indicates that a LEFT SHIFT is Present. International normalized rat io (INR) calculationOrdered By: León Mccray on 08-12-2025 INR Coag (Bld) [Relative time] 1.6 {INR} [facility] Iron measurement (mass/mass) Ordered By: León Mccray on 08-12-2025 Iron (Unsp spec) [Mass/Mass] 40 ug/dL Low 65-175 [facility] Iron+Iron Binding Capacityon 08-12-2025 Iron [Mass/Vol] 40 ug/dL Low 65-175 [facility] Comment on above: Performed By: #### L 506.0200, L503.0106, L100.9950, L503.6030, L503.6550 #### [facility] [address] [place], [place], [id number] (967) IRON SATURATION 12.3 Normal 9-55 [facility] Comment on above: Performed By: #### L 506.0200, L503.0106, L100.9950, L503.6030, L503.6550 #### [facility] [address] [place], [address] TIBC 327 ug/dL Normal 250-450 [facility] Comment on above: Performed By: #### L 506.0200, L503.0106, L100.9950, L503.6030, L503.6550 #### [facility] [address] [place], [address] UIBC 287 ug/dL Normal 228-428 [facility] Comment on above: Result Comment: Hemo lysis present, Results??could be affected. ?? Hemolysis present, Results??could be affected. ?? Hemolysis present, Results??could be affected. ?? Performed By: #### L 506.0200, L503.0106, L100.9950, L503.6030, L503.6550 #### [facility] [address] [place], [address] Ketones Test strip Ql (U)Ord ered By: León Mccray on 08-12-2025 Ketones Ql (U) Negative Negative [facility] LDHon 08-12-2025 LDH 413 U/L High 87-241 [facility] Comment on above: Order Comment: 1 Result Comment: Hemo lysis present, Results??could be affected. ?? Hemolysis present, Results??could be affected. ?? Hemolysis present, Results??could be affected. ?? Performed By: #### L 506.0200, L503.0106, L100.9950, L503.6030, L503.6550 #### [facility] [address] [place], [address] Laboratory - Chemistry and C hemistry - challengeOrdered By: León Mccray on 08-12-2025 AST [Catalytic activity/Vol] 65 U/L High <38 [facility] Comment on above: Hemolysis present, R esults could be affected. Hemolysis present, Results could be affected. Hemolysis present, Results could be affected. Laboratory - Hematology and Cell countsOrdered By: León Mccray on 08-12-2025 Anisocytosis Ql (Bld) 2+ [facility] Lactate dehydrogenase (LDH) measurementOrdered By: León Mccray on 08-12-2025 LDH [Catalytic activity/Vol] 413 U/L High 87-241 [facility] Comment on above: Hemolysis present, R esults could be affected. Hemolysis present, Results could be affected. Hemolysis present, Results could be affected. MCV (mean corpuscular volume ) determinationOrdered By: León Mccray on 08-12-2025 MCV (RBC) [Entitic vol] 86.3 fL 80-94 [facility] Magnesiumon 08-12-2025 Magnesium [Mass/Vol] 1.7 mg/dL Normal 1.5-2.2 [facility] Comment on above: Performed By: #### L 506.0200, L503.0106, L100.9950, L503.6030, L503.6550 #### [facility] [address] [place], [address] Magnesium measurement (mass/ volume)Ordered By: León Mccray on 08-12-2025 Magnesium (Unsp spec) [Mass/Vol] 1.7 mg/dL 1.5-2.2 [facility] Mean corpuscular hemoglobin (MCH) determinationOrdered By: León Mccray on 08-12-2025 MCH (RBC) [Entitic mass] 26.8 pg Low 27.0-32.0 [facility] Mean corpuscular hemoglobin concentration (MCHC) determinationOrdered By: León Mccray on 08-12-2025 MCHC (RBC) [Mass/Vol] 31.1 g/dL Low 32-36 [facility] Mean platelet volume determi nationOrdered By: León Mccray on 08-12-2025 Platelet mean volume (Bld) [Entitic vol] 10.4 fL 6.2-12.0 [facility] Microscopic analysis of urin e for red blood cells (RBC)Ordered By: León Mccray on 08-12-2025 Microscopic analysis of urine for red blood cells (RBC) 5-10 SEEN /hpf 0-5 [facility] Monocyte percentageOrdered B y: León Mccray on 08-12-2025 Monocytes/100 WBC (Bld) 16.4 % High 0-10 [facility] Mucus LM Ql (Urine sed)Order ed By: León Mccray on 08-12-2025 Mucus Ql (Urine sed) 0 SEEN /hpf [facility] Neutrophil percentageOrdered By: León Mccray on 08-12-2025 Neutrophils/100 WBC (Bld) 47.9 % 47-70 [facility] Nitrite Test strip Ql (U)Ord ered By: León Mccray on 08-12-2025 Nitrite Ql (U) Negative Negative [facility] No Panel InformationOrdered By: León Mccray on 08-12-2025 Unsaturated Iron Binding Capacity 287 ug/dL 228-428 [facility] Comment on above: Hemolysis present, R esults could be affected. Hemolysis present, Results could be affected. Hemolysis present, Results could be affected. Nucleated red blood cell per centageOrdered By: León Mccray on 08-12-2025 Nucleated RBC/100 WBC (Bld) [Ratio] 0 % 0-5 [facility] Oncology Visit Reporton 07-16 Oncology Visit Report [facility] [address] [place] [address] OFFICE VISIT Date of Service: 08/12/25822 MR#: [id number] Acct: [id number] Name: LEON RIDER Rep #: [id number] : 1980 From: León Mccray MD Age/Sex: 45/M Location: [facility] Status: Signed HPI Subjective Date of Service 08/12/25 Chief Complaint Referred for anemia. 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 He has had esophageal varices which has been banded in [place]. [facility] Hx of cirrhosis Anemia Chronic idiopathic thrombocytopenia HTN (hypertension) Diabetes Acid reflux Rectal bleeding Hemorrhoids Surgical History H/O umbilical hernia repair [place] teeth extracted Family History Other Diabetes Heart [...] - Continuous Positive Airway 07/23/25 08/12/25 History Pressure([facility] INFORMATIONAL USE ONLY) bumetanide 2 mg [...] no murmurs (more content not included)... Normal [facility] Partial Thromboplast Timeon 08-12-2025 aPTT Coag (Bld) [Time] 35.9 s Normal 24.1-36.2 [facility] Comment on above: Performed By: #### L 506.0200, L503.0106, L100.9950, L503.6030, L503.6550 #### [facility] [address] [place], [address] Phosphoruson 08-12-2025 Phosphate [Mass/Vol] 2.9 mg/dL Normal 2.7-4.5 [facility] Comment on above: Performed By: #### L 506.0200, L503.0106, L100.9950, L503.6030, L503.6550 #### [facility] [address] [place], [address] Platelet countOrdered By: Radha Mccray on 08-12-2025 Platelets (Bld) [#/Vol] 115 10*3/uL Low 150-450 [facility] Potassium measurement (mass/ volume)Ordered By: León Mccray on 08-12-2025 Potassium (Unsp spec) [Mass/Vol] 3.5 mmol/L 3.3-5.1 [facility] Comment on above: Hemolysis present, R esults could be affected. Hemolysis present, Results could be affected. Protein Test strip Ql (U)Ord ered By: León Mccray on 08-12-2025 Protein Ql (U) 15 mg/dl High Negative [facility] Prothrombin Time w/INRon INR Coag (PPP) [Relative time] 1.6 {INR} Normal [facility] Comment on above: Performed By: #### L 506.0200, L503.0106, L100.9950, L503.6030, L503.6550 #### [facility] [address] [place], [address] PT Coag (PPP) [Time] 19.8 s High 11.7-14.9 [facility] Comment on above: Performed By: #### L 506.0200, L503.0106, L100.9950, L503.6030, L503.6550 #### [facility] [address] [place], [address] Prothrombin timeOrdered By: León Mccray on 08-12-2025 PT Coag (PPP) [Time] 19.8 s High 11.7-14.9 [facility] RBC Auto (Bld) [#/Vol]Ordere d By: León Mccray on 08-12-2025 RBC (Bld) [#/Vol] 3.73 10*6/uL Low 4.6-6.2 [facility] Retic Panelon 08-12-2025 IM RET FRACTION 27.60 High 3.00-15.90 [facility] Comment on above: Performed By: #### L 506.0200, L503.0106, L100.9950, L503.6030, L503.6550 #### [facility] [address] [place], [place], [id number] RET-HE 29.9 pg Low 30-35 [facility] Comment on above: Performed By: #### L 506.0200, L503.0106, L100.9950, L503.6030, L503.6550 #### [facility] [address] [place], [address] Retic Count 2.66 High 0.5-1.5 [facility] Comment on above: Performed By: #### L 506.0200, L503.0106, L100.9950, L503.6030, L503.6550 #### [facility] [address] [place], [place], [id number] Reticulocyte hemoglobin equi valent (RET-He) measurementOrdered By: León Mccray on 08-12-2025 Hemoglobin (Reticulocytes) [Entitic mass] 29.9 pg Low 30-35 [facility] Reticulocytes Auto (Bld) [#/ Vol]Ordered By: León Mccray on 08-12-2025 Reticulocytes/100 RBC (Bld) 2.66 % High 0.5-1.5 [facility] Serum creatinine measurement (mass/volume)Ordered By: León Mccray on 08-12-2025 Creatinine [Mass/Vol] 0.72 mg/dL 0.70-1.20 [facility] Serum globulin measurementOr dered By: León Mccray on 08-12-2025 Globulin (S) [Mass/Vol] 5.7 g/dL High 2.2-4.2 [facility] Serum glucose measurement (m ass/volume)Ordered By: León Mccray on 08-12-2025 Glucose [Mass/Vol] 133 mg/dL High 70-99 [facility] Serum or plasma C reactive p rotein measurement (mass/volume)Ordered By: León Mccray on 08-12-2025 CRP [Mass/Vol] 33.40 mg/L High 0.0-3.0 [facility] Serum or plasma alanine reyes otransferase (ALT) measurementOrdered By: León Mccray on 08-12-2025 ALT [Catalytic activity/Vol] 28 U/L <47 [facility] Serum or plasma albumin wilfred urement (mass/volume)Ordered By: León Mccray on 08-12-2025 Albumin [Mass/Vol] 2.6 g/dL Low 3.5-5.0 [facility] Serum or plasma albumin/glob ulin mass ratioOrdered By: León Mccray on 08-12-2025 Albumin/Globulin [Mass ratio] 0.5 {ratio} Low 0.9-2.4 [facility] Serum or plasma alkaline roge sphatase measurementOrdered By: León Mccray on 08-12-2025 ALP [Catalytic activity/Vol] 115 U/L 40-129 [facility] Serum or plasma calcium wilfred urement (mass/volume)Ordered By: León Mccray on 08-12-2025 Calcium [Mass/Vol] 8.0 mg/dL 7.6-11.0 [facility] [facility] Serum or plasma ferritin shelby surement (mass/volume)Ordered By: León Mccray on 08-12-2025 Ferritin [Mass/Vol] 60 ng/mL 37-417 [facility] Serum or plasma iron saturat ion measurement (mass fraction)Ordered By: León Mccray on 08-12-2025 Iron saturation [Mass fraction] 12.3 % 9-55 [facility] Serum or plasma urea nitroge n measurement (mass/volume)Ordered By: León Mccray on 08-12-2025 Urea nitrogen [Mass/Vol] 11 mg/dL 4-19 [facility] Sodium levelOrdered By: Greg Mccray on 08-12-2025 Sodium [Moles/Vol] 135 mmol/L 133-145 [facility] Squamous epithelial cells de tection in urine sediment by light microscopyOrdered By: León Mccray on 08-12-2025 Epithelial cells.squamous LM Ql (Urine sed) 0-5 SEEN /hpf 0-5 [facility] Total proteinOrdered By: Sánchez Mccray on 08-12-2025 Protein [Mass/Vol] 8.3 g/dL 5.9-8.4 [facility] Urinalysis, Completeon 08-12 EPI,SQUAMOUS 0-5 SEEN Normal 0-5 [facility] Comment on above: Order Comment: MISAEL CTOR TO SPECIFY Performed By: #### L 501.080 #### [facility] [address] [place], [address] RBC 5-10 SEEN Normal 0-5 [facility] Comment on above: Order Comment: MISAEL CTOR TO SPECIFY Performed By: #### L 501.080 #### [facility] [address] [place], [address] BACTERIA 0 SEEN Normal None Seen [facility] Comment on above: Order Comment: MISAEL CTOR TO SPECIFY Performed By: #### L 501.080 #### [facility] [address] [place], [address] Mucus Ql (Urine sed) 0 SEEN Normal [facility] Comment on above: Order Comment: MISAEL CTOR TO SPECIFY Performed By: #### L 501.080 #### [facility] [address] [place], [address] WBC 0 SEEN Normal 0-5 [facility] Comment on above: Order Comment: MISAEL CTOR TO SPECIFY Performed By: #### L 501.080 #### [facility] [address] [place], [address] Urine clarityOrdered By: Sánchez Mccray on 08-12-2025 Clarity (U) Clear Clear [facility] Urine color determinationOrd ered By: León Mccray on 08-12-2025 Color (U) Yellow Yellow [facility] Urine glucose detectionOrder ed By: León Mccray on 08-12-2025 Glucose Ql (U) Normal mg/dl Normal [facility] Urine leukocyte esterase det ection by dipstickOrdered By: León Mccray on 08-12-2025 Leukocyte esterase Test strip Ql (U) Negative Negative [facility] Urine pHOrdered By: León amador on 08-12-2025 pH (U) 7.0 [pH] 5.0 - 8.0 [facility] Urine sediment bacteria coun t by microscopy (number/high power field)Ordered By: León Mccray on 08-12-2025 Bacteria LM.HPF (Urine sed) [#/Area] 0 /[HPF] None Seen [facility] Urine specific gravity measu rementOrdered By: León Mccray on 08-12-2025 Specific gravity (U) [Rel density] 1.010 1.002-1.03 0 [facility] Urine urobilinogen measureme ntOrdered By: León Mccray on 08-12-2025 Urobilinogen Ql (U) 8 mg/dl High Normal [facility] White blood cell (WBC) count Ordered By: León Mccray on 08-12-2025 WBC (Bld) [#/Vol] 5.2 10*3/uL 4.4-11.0 [facility] White blood cell countOrdere d By: León Mccray on 08-12-2025 White blood cell count 0 SEEN /hpf 0-5 [facility] Erythropoietinon 08-05-2025 ERYTHROPOIETIN 254.5 mIU/mL High 2.6-18.5 [facility] Comment on above: Order Comment: Order Date: 08/02/25Order Info: [id number] - NICK Result Comment: [employer] DxI 800 Immunoassay System Values obtained with different assay methods or kits cannot be used interchangeably. Results cannot be interpreted as absolute evidence of the presence or absence of malignant disease. Performed at: [facility] Lab[address] [id number] [employer] Skiver: Tres Cm PhD, Phone: [phone] Performed By: #### L 506.0200, L503.0106, L100.1050, L503.1630, L503.2350 #### [facility] [address] [place], [address] Absolute lymphocyte countOrd ered By: Alis Duran on 08-02-2025 Lymphocytes Auto (Unsp spec) [#/Vol] 1.04 10*3/uL 0.83-4.51 [facility] Absolute neutrophil countOrd ered By: Alis Duran on 08-02-2025 Neutrophils (Bld) [#/Vol] 3.7 10*3/uL 2.0-7.7 [facility] Automated lymphocyte count a s percentage of total leukocytesOrdered By: Alis Duran on 08-02-2025 Lymphocytes/100 WBC Auto (Unsp spec) 17.5 % Low 19-41 [facility] Basophil percentageOrdered B y: Alis Duran on 08-02-2025 Basophils/100 WBC (Bld) 1.2 % High 0-1 [facility] Blood manual differential co mment interpretation (narrative result)Ordered By: Alis Duran on 08-02-2025 Manual differential comment Hans (Bld) [Interp] SCANNED [facility] Blood polychromasia detectio n by light microscopyOrdered By: Alis Duran on 08-02-2025 Polychromasia LM Ql (Bld) 1+ [facility] CBC W/Diff, Automatedon 07-15 OVALOCYTE 1+ Normal [facility] Comment on above: Order Comment: Order Date: 08/02/25Order Info: [id number] - CBCD Performed By: #### L 506.0200, L503.0106, L100.9950, L503.6030, L503.6550 #### [facility] [address] [place], [address] Anisocytosis Ql (Bld) 2+ Normal [facility] Comment on above: Order Comment: Order Date: 08/02/25Order Info: [id number] - CBCD Performed By: #### L 506.0200, L503.0106, L100.9950, L503.6030, L503.6550 #### [facility] [address] [place], [address] POLYCHROMASIA 1+ Normal [facility] Comment on above: Order Comment: Order Date: 08/02/25Order Info: [id number] - CBCD Performed By: #### L 506.0200, L503.0106, L100.9950, L503.6030, L503.6550 #### [facility] [address] [place], [address] PLT EST SLT DEC Normal ADEQ [facility] Comment on above: Order Comment: Order Date: 08/02/25Order Info: [id number]- - CBCD Performed By: #### L 506.0200, L503.0106, L100.9950, L503.6030, L503.6550 #### [facility] [address] [place], [address] SMEAR COMMENT SCANNED Normal [facility] Comment on above: Order Comment: Order Date: 08/02/25Order Info: [id number]- - CBCD Performed By: #### L 506.0200, L503.0106, L100.9950, L503.6030, L503.6550 #### [facility] [address] [place], [address] Eosinophil percentageOrdered By: Alis Duran on 08-02-2025 Eosinophils/100 WBC (Bld) 5.5 % High 0-5 [facility] Erythrocyte distribution wid th ratioOrdered By: Alis Duran on 08-02-2025 Erythrocyte distribution width (RBC) [Ratio] 25.7 % High 11.6-14.6 [facility] Erythrocyte distribution wid th standard deviationOrdered By: Alis Duran on 08-02-2025 Erythrocyte distribution width (RBC) [Ratio] 78.2 fl High 35.1-43.9 [facility] Hematocrit Auto (Bld) [Volum e fraction]Ordered By: Alis Duran on 08-02-2025 Hematocrit (Bld) [Volume fraction] 30.1 % Low 40-54 [facility] Hemoglobin measurementOrdere d By: Alis Duran on 08-02-2025 Hemoglobin (Bld) [Mass/Vol] 9.3 g/dL Low 13.0-16.5 [facility] Immature granulocytes/100 WB C Auto (Bld)Ordered By: Alis Duran on 08-02-2025 Immature granulocytes/100 WBC (Bld) 0.500 % 0.0-0.9 [facility] Comment on above: IG% - Immature Granu locytes (promyelocytes, myelocytes and metamyelocytes) > 1% indicates that a LEFT SHIFT is Present. Laboratory - Hematology and Cell countsOrdered By: Alis Duran on 08-02-2025 Anisocytosis Ql (Bld) 2+ [facility] MCV (mean corpuscular volume ) determinationOrdered By: Alis Duran on 08-02-2025 MCV (RBC) [Entitic vol] 85.8 fL 80-94 [facility] Mean corpuscular hemoglobin (MCH) determinationOrdered By: Alis Duran on 08-02-2025 MCH (RBC) [Entitic mass] 26.5 pg Low 27.0-32.0 [facility] Mean corpuscular hemoglobin concentration (MCHC) determinationOrdered By: Alis Duran on 08-02-2025 MCHC (RBC) [Mass/Vol] 30.9 g/dL Low 32-36 [facility] Mean platelet volume determi nationOrdered By: Alis Duran on 08-02-2025 Platelet mean volume (Bld) [Entitic vol] 10.7 fL 6.2-12.0 [facility] Monocyte percentageOrdered B y: Alis Duran on 08-02-2025 Monocytes/100 WBC (Bld) 13.4 % High 0-10 [facility] Neutrophil percentageOrdered By: [facility] on 08-02-2025 Neutrophils/100 WBC (Bld) 61.9 % 47-70 [facility] Nucleated red blood cell per centageOrdered By: Alis Duran on 08-02-2025 Nucleated RBC/100 WBC (Bld) [Ratio] 0 % 0-5 [facility] Ovalocyte detectionOrdered B y: Alis Duran on 08-02-2025 Ovalocytes LM Ql (Bld) 1+ [facility] Platelet countOrdered By: Darrick Duran on 08-02-2025 Platelets (Bld) [#/Vol] 132 10*3/uL Low 150-450 [facility] Platelet estimateOrdered By: Alis Duran on 08-02-2025 Platelets LM Ql (Bld) SLT DEC ADEQ [facility] RBC Auto (Bld) [#/Vol]Ordere d By: Alis Duran on 08-02-2025 RBC (Bld) [#/Vol] 3.51 10*6/uL Low 4.6-6.2 [facility] Serum or plasma erythropoiet in (EPO) measurement (units/volume)Ordered By: Alis Duran on 08-02-2025 Erythropoietin (EPO) Qn 254.5 mIU/mL High 2.6-18.5 [facility] Comment on above: [employer] DxI 800 Immunoassay SystemValues obtained with different assay methods or kits cannotbe used interchangeably. Results cannot be interpreted asabsolute evidence of the presence or absence of malignantdisease.Performed at: [facility] [id number] Director: Tres Cm PhD, Phone: [phone] Vitamin B12on 08-02-2025 Cobalamin (Vitamin B12) [Mass/Vol] 1591 pg/mL High 180-914 [facility] Comment on above: Performed By: #### L 506.0200, L503.0106, L100.9950, L503.6030, L503.6550 #### [facility] [address] [facility] [place], [address] Vitamin B12 ser/plasOrdered By: Alis Duran on 08-02-2025 Cobalamin (Vitamin B12) [Mass/Vol] 1591 pg/mL High 180-914 [facility] White blood cell (WBC) count Ordered By: Alis Duran on 08-02-2025 WBC (Bld) [#/Vol] 6.0 10*3/uL 4.4-11.0 [facility] 12 Lead EKGon 07-26-2025 12 Lead EKG [facility] [address] [place] [address] 12 Lead EKG 07/26/25 1413 MR#: [id number] Acct: [id number] Name: LEON RIDER Rep #: [id number] : 1980 45 From: Jocelyne Henley MD Attending Dr: Dr. Myriam Aguilar DO Status: DIS I N Ordering Dr: Myriam Aguilar DO Date: 07/26/25 Location: [facility] Sex: M C Admitted: 07/21/25 Test Reason [...] Lateral leads Confirmed by Jocelyne Henley ([id number]), senior technical editor JACQUELYN ANDRADE ([id number]) on 07/29/2025 1:29:21 PM Referred By: Confirmed By: Jocelyne Henley 07/29/25 1329 Date Jocelyne Henley MD CC: Dr. Alis Duran MD; Dr. Myriam Aguilar DO Signed Normal [facility] Anion gap in Serum or Plasma Ordered By: Myriam Aguilar on 07-26-2025 Anion gap [Moles/Vol] 9 mmol/L 5- [facility] BUN/creatinine ratioOrdered By: Myriam Aguilar on 07-26-2025 Urea nitrogen/Creatinine [Mass ratio] 11.9 mg/mg 10- [facility] Bedside Glucoseon 07-26-2025 FINGERSTICK GLU 188 mg/dL High 74-106 [facility] Comment on above: Result Comment: PADDY GEMENT OF PATIENT CARE PER NURSING PROTOCOL Performed By: #### L 500.4050, L100.0100 #### [facility] [address] [place], [address] FINGERSTICK GLU 142 mg/dL High 74-106 [facility] Comment on above: Result Comment: PADDY GEMENT OF PATIENT CARE PER NURSING PROTOCOL Performed By: #### L 506.0200, L503.0106, L100.9950, L503.6030, L503.6550 #### [facility] [address] [place], [address] Bilirubin, totalOrdered By: Myriam Aguilar on 07-26-2025 Bilirubin [Mass/Vol] 1.75 mg/dL High 0.00-1.30 [facility] CBC-Complete Blood Cnt No Di ffon 07-26-2025 Erythrocyte distribution width (RBC) [Ratio] 24.9 % High 11.6-14.6 [facility] Comment on above: Performed By: #### L 506.0200, L503.0106, L100.9950, L503.6030, L503.6550 #### [facility] [address] [place], [address] Hematocrit (Bld) [Volume fraction] 25.3 % Low 40-54 [facility] Comment on above: Performed By: #### L 506.0200, L503.0106, L100.9950, L503.6030, L503.6550 #### [facility] [address] [place], [address] Hemoglobin (Bld) [Mass/Vol] 8.1 g/dL Low 13.0-16.5 [facility] Comment on above: Performed By: #### L 506.0200, L503.0106, L100.9950, L503.6030, L503.6550 #### [facility] [address] [place], [address] MCH (RBC) [Entitic mass] 26.7 pg Low 27.0-32.0 [facility] Comment on above: Performed By: #### L 506.0200, L503.0106, L100.9950, L503.6030, L503.6550 #### [facility] [address] [place], [address] MCHC (RBC) [Mass/Vol] 32.0 g/dL Normal 32-36 [facility] Comment on above: Performed By: #### L 506.0200, L503.0106, L100.9950, L503.6030, L503.6550 #### [facility] [address] [place], [address] MCV (RBC) [Entitic vol] 83.5 fL Normal 80-94 [facility] Comment on above: Performed By: #### L 506.0200, L503.0106, L100.9950, L503.6030, L503.6550 #### [facility] [address] [place], [address] Platelet mean volume (Bld) [Entitic vol] 9.9 fL Normal 6.2-12.0 [facility] Comment on above: Performed By: #### L 506.0200, L503.0106, L100.9950, L503.6030, L503.6550 #### [facility] [address] [place], [address] Platelets (Bld) [#/Vol] 129 10*3/uL Low 150-450 [facility] Comment on above: Performed By: #### L 506.0200, L503.0106, L100.9950, L503.6030, L503.6550 #### [facility] [address] [place], [address] RBC (Bld) [#/Vol] 3.03 10*6/uL Low 4.6-6.2 [facility] Comment on above: Performed By: #### L 506.0200, L503.0106, L100.9950, L503.6030, L503.6550 #### [facility] [address] [place], [address] RDW SD 71.4 fl High 35.1-43.9 [facility] Comment on above: Performed By: #### L 506.0200, L503.0106, L100.9950, L503.6030, L503.6550 #### [facility] [address] [place], [address] WBC (Bld) [#/Vol] 6.0 10*3/uL Normal 4.4-11.0 [facility] Comment on above: Performed By: #### L 506.0200, L503.0106, L100.9950, L503.6030, L503.6550 #### [facility] [address] [place], [address] Carbon dioxide, total [Moles /volume] in Central venous bloodOrdered By: Myriam Aguilar on 07-26-2025 CO2 [Moles/Vol] 23.3 mmol/L 21.0-32.0 [facility] Chloride assayOrdered By: Sakshi Aguilar on 07-26-2025 Chloride [Moles/Vol] 101 mmol/L 98-108 [facility] Comprehensive Metabolic Prof ilon 07-26-2025 Albumin [Mass/Vol] 2.0 g/dL Low 3.5-5.0 [facility] Comment on above: Performed By: #### L 506.0200, L503.0106, L100.9950, L503.6030, L503.6550 #### [facility] [address] [place], [address] Albumin/Globulin [Mass ratio] 0.5 {ratio} Low 0.9-2.4 [facility] Comment on above: Performed By: #### L 506.0200, L503.0106, L100.9950, L503.6030, L503.6550 #### [facility] [address] [place], [address] ALK PHOS 128 U/L Normal 40-129 [facility] Comment on above: Performed By: #### L 506.0200, L503.0106, L100.9950, L503.6030, L503.6550 #### [facility] [address] [place], [address] ALT [Catalytic activity/Vol] 27 U/L Normal <=46 [facility] Comment on above: Performed By: #### L 506.0200, L503.0106, L100.9950, L503.6030, L503.6550 #### [facility] [address] [place], [address] AST [Catalytic activity/Vol] 47 U/L High <=37 [facility] Comment on above: Performed By: #### L 506.0200, L503.0106, L100.9950, L503.6030, L503.6550 #### [facility] [address] [place], [address] Bilirubin [Mass/Vol] 1.75 mg/dL High 0.00-1.30 [facility] Comment on above: Performed By: #### L 506.0200, L503.0106, L100.9950, L503.6030, L503.6550 #### [facility] [address] [place], [address] BUN/CRE 11.9 RATIO Normal 10-20 [facility] Comment on above: Performed By: #### L 506.0200, L503.0106, L100.9950, L503.6030, L503.6550 #### [facility] [address] [place], [address] Calcium [Mass/Vol] 7.3 mg/dL Low 7.6-11.0 [facility] Comment on above: Performed By: #### L 506.0200, L503.0106, L100.9950, L503.6030, L503.6550 #### [facility] [address] [place], [address] Chloride [Moles/Vol] 101 mmol/L Normal 98-108 [facility] Comment on above: Performed By: #### L 506.0200, L503.0106, L100.9950, L503.6030, L503.6550 #### [facility] [address] [place], [address] CO2 [Moles/Vol] 23.3 mmol/L Normal 21.0-32.0 [facility] Comment on above: Performed By: #### L 506.0200, L503.0106, L100.9950, L503.6030, L503.6550 #### [facility] [address] [place], [address] Creatinine [Mass/Vol] 0.69 mg/dL Low 0.70-1.20 [facility] Comment on above: Performed By: #### L 506.0200, L503.0106, L100.9950, L503.6030, L503.6550 #### [facility] [address] [place], [address] ECRCL 217.11 ml/min Normal 50-250 [facility] Comment on above: Performed By: #### L 506.0200, L503.0106, L100.9950, L503.6030, L503.6550 #### [facility] [address] [place], [address] GAP 9 Normal 5-15 [facility] Comment on above: Performed By: #### L 506.0200, L503.0106, L100.9950, L503.6030, L503.6550 #### [facility] [address] [place], [address] GFR/1.73 sq M.predicted among non-blacks MDRD (S/P/Bld) [Vol rate/Area] 115 mL/min/{1.73_m2} Normal >60 [facility] Comment on above: Result Comment: mL/m in/1.73m2 CKD-EPI Creatinine Equation (2020) Performed By: #### L 506.0200, L503.0106, L100.9950, L503.6030, L503.6550 #### [facility] [address] [place], [address] Globulin (S) [Mass/Vol] 4.1 g/dL Normal 2.2-4.2 [facility] Comment on above: Performed By: #### L 506.0200, L503.0106, L100.9950, L503.6030, L503.6550 #### [facility] [address] [place], [address] Glucose [Mass/Vol] 140 mg/dL High 70-99 [facility] Comment on above: Performed By: #### L 506.0200, L503.0106, L100.9950, L503.6030, L503.6550 #### [facility] [address] [place], [address] Potassium [Moles/Vol] 3.5 mmol/L Normal 3.3-5.1 [facility] Comment on above: Performed By: #### L 506.0200, L503.0106, L100.9950, L503.6030, L503.6550 #### [facility] [address] [place], [address] Sodium [Moles/Vol] 133 mmol/L Normal 133-145 [facility] Comment on above: Performed By: #### L 506.0200, L503.0106, L100.9950, L503.6030, L503.6550 #### [facility] [address] [place], [address] T PROT 6.1 g/dL Normal 5.9-8.4 [facility] Comment on above: Performed By: #### L 506.0200, L503.0106, L100.9950, L503.6030, L503.6550 #### [facility] [address] [place], [address] Urea nitrogen [Mass/Vol] 8 mg/dL Normal 4-19 [facility] Comment on above: Performed By: #### L 506.0200, L503.0106, L100.9950, L503.6030, L503.6550 #### [facility] [address] [place], [address] Culture, Blood (WB)on 2024 CUB Blood cultures x2, f rom two different sites No growth in 5 days. Normal [facility] Comment on above: Performed By: #### L 501.080 #### [facility] [address] [place], [address] CUB Blood cultures x2, f rom two different sites No growth in 5 days. Normal [facility] Comment on above: Performed By: #### L 499.0043 #### [facility] [address] [place], [address] Erythrocyte distribution wid th ratioOrdered By: Myriam Aguilar on 07-26-2025 Erythrocyte distribution width (RBC) [Ratio] 24.9 % High 11.6-14.6 [facility] Erythrocyte distribution wid th standard deviationOrdered By: Myriam Aguilar on 07-26-2025 Erythrocyte distribution width (RBC) [Ratio] 71.4 fl High 35.1-43.9 [facility] Glomerular filtration rate ( GFR) estimation/1.73 sq m using serum, plasma, or whole bOrdered By: Myriam Aguilar on 07-26-2025 GFR/1.73 sq M.predicted among non-blacks MDRD (S/P/Bld) [Vol rate/Area] 115 mL/min/{1.73_m2} >60 [facility] Comment on above: mL/min/1.73m2 CKD-EP I Creatinine Equation (2020) [facility]dered By: Myriam Aguilar on 07-26-2025 Glucose [Mass/Vol] 188 mg/dL High 74-106 [facility] Comment on above: MANAGEMENT OF PATIEN T CARE PER NURSING PROTOCOL Glucose [Mass/Vol] 142 mg/dL High 74-106 [facility] Comment on above: MANAGEMENT OF PATIEN T CARE PER NURSING PROTOCOL Hematocrit Auto (Bld) [Volum e fraction]Ordered By: Myrima Aguilar on 07-26-2025 Hematocrit (Bld) [Volume fraction] 25.3 % Low 40-54 [facility] Hemoglobin measurementOrdere d By: Myriam Aguilar on 07-26-2025 Hemoglobin (Bld) [Mass/Vol] 8.1 g/dL Low 13.0-16.5 [facility] Laboratory - Chemistry and C hemistry - challengeOrdered By: Myriam Aguilar on 07-26-2025 AST [Catalytic activity/Vol] 47 U/L High <38 [facility] MCV (mean corpuscular volume ) determinationOrdered By: Myriam Aguilar on 07-26-2025 MCV (RBC) [Entitic vol] 83.5 fL 80-94 [facility] Magnesiumon 07-26-2025 Magnesium [Mass/Vol] 1.9 mg/dL Normal 1.5-2.2 [facility] Comment on above: Performed By: #### L 506.0200, L503.0106, L100.9950, L503.6030, L503.6550 #### [facility] Laboratory [address] [facility]. [place], [place], [address] Magnesium measurement (mass/ volume)Ordered By: Myriam Aguilar on 07-26-2025 Magnesium (Unsp spec) [Mass/Vol] 1.9 mg/dL 1.5-2.2 [facility] Mean corpuscular hemoglobin (MCH) determinationOrdered By: Myriam Aguilar on 07-26-2025 MCH (RBC) [Entitic mass] 26.7 pg Low 27.0-32.0 [facility] Mean corpuscular hemoglobin concentration (MCHC) determinationOrdered By: Myriam Aguilar on 07-26-2025 MCHC (RBC) [Mass/Vol] 32.0 g/dL 32-36 [facility] Mean platelet volume determi nationOrdered By: Myriam Aguilar on 07-26-2025 Platelet mean volume (Bld) [Entitic vol] 9.9 fL 6.2-12.0 [facility] Phosphoruson 07-26-2025 Phosphate [Mass/Vol] 2.7 mg/dL Normal 2.7-4.5 [facility] Comment on above: Performed By: #### L 506.0200, L503.0106, L100.9950, L503.6030, L503.6550 #### [facility] Laboratory [address] [place], [address] Platelet countOrdered By: Sakshi Aguilar on 07-26-2025 Platelets (Bld) [#/Vol] 129 10*3/uL Low 150-450 [facility] Potassium measurement (mass/ volume)Ordered By: Myriam Aguilar on 07-26-2025 Potassium (Unsp spec) [Mass/Vol] 3.5 mmol/L 3.3-5.1 [facility] RBC Auto (Bld) [#/Vol]Ordere d By: Myriam Aguilar on 07-26-2025 RBC (Bld) [#/Vol] 3.03 10*6/uL Low 4.6-6.2 [facility] Serum creatinine measurement (mass/volume)Ordered By: Myriam Aguilar on 07-26-2025 Creatinine [Mass/Vol] 0.69 mg/dL Low 0.70-1.20 [facility] Serum globulin measurementOr dered By: Myriam Aguilar on 07-26-2025 Globulin (S) [Mass/Vol] 4.1 g/dL 2.2-4.2 [facility] Serum glucose measurement (m ass/volume)Ordered By: Myriam Aguilar on 07-26-2025 Glucose [Mass/Vol] 140 mg/dL High 70-99 [facility] Serum or plasma alanine reyes otransferase (ALT) measurementOrdered By: Myriam Aguilar on 07-26-2025 ALT [Catalytic activity/Vol] 27 U/L <47 [facility] Serum or plasma albumin wilfred urement (mass/volume)Ordered By: Myriam Aguilar on 07-26-2025 Albumin [Mass/Vol] 2.0 g/dL Low 3.5-5.0 [facility] Serum or plasma albumin/glob ulin mass ratioOrdered By: Myriam Aguilar on 07-26-2025 Albumin/Globulin [Mass ratio] 0.5 {ratio} Low 0.9-2.4 [facility] Serum or plasma alkaline roge sphatase measurementOrdered By: Myriam Aguilar on 07-26-2025 ALP [Catalytic activity/Vol] 128 U/L 40-129 [facility] Serum or plasma calcium wilfred urement (mass/volume)Ordered By: Myriam Aguilar on 07-26-2025 Calcium [Mass/Vol] 7.3 mg/dL Low 7.6-11.0 [facility] Serum or plasma urea nitroge n measurement (mass/volume)Ordered By: Myriam Aguilar on 07-26-2025 Urea nitrogen [Mass/Vol] 8 mg/dL 4-19 [facility] Sodium levelOrdered By: Ana Paula Aguilar on 07-26-2025 Sodium [Moles/Vol] 133 mmol/L 133-145 [facility] Total proteinOrdered By: Zuleyma Aguilar on 07-26-2025 Protein [Mass/Vol] 6.1 g/dL 5.9-8.4 [facility] White blood cell (WBC) count Ordered By: Myriam Aguilar on 07-26-2025 WBC (Bld) [#/Vol] 6.0 10*3/uL 4.4-11.0 [facility] Absolute lymphocyte countOrd ered By: Myriam Aguilar on 07-25-2025 Lymphocytes Auto (Unsp spec) [#/Vol] 0.91 10*3/uL 0.83-4.51 [facility] Absolute neutrophil countOrd ered By: Myriam Aguilar on 07-25-2025 Neutrophils (Bld) [#/Vol] 3.5 10*3/uL 2.0-7.7 [facility] Automated lymphocyte count a s percentage of total leukocytesOrdered By: Myriam Aguilar on 07-25-2025 Lymphocytes/100 WBC Auto (Unsp spec) 15.0 % Low 19-41 [facility] Basophil percentageOrdered B y: Myriam Aguilar on 07-25-2025 Basophils/100 WBC (Bld) 1.0 % 0-1 [facility] Bedside Glucoseon 07-25-2025 FINGERSTICK GLU 200 mg/dL High [address] [place] [address] Comment on above: Result Comment: PADDY GEMENT OF PATIENT CARE PER NURSING PROTOCOL Performed By: #### L 506.0200, L503.0106, L100.9950, L503.6030, L503.6550 #### [facility] [address] [place], [address] FINGERSTICK GLU 236 mg/dL High [facility]106 [facility] Comment on above: Result Comment: PADDY GEMENT OF PATIENT CARE PER NURSING PROTOCOL Performed By: #### L 501.080 #### [facility] [address] [place], [address] FINGERSTICK GLU 209 mg/dL High [address] [place] [address] Comment on above: Result Comment: PADDY GEMENT OF PATIENT CARE PER NURSING PROTOCOL Performed By: #### L 501.080 #### [facility] [address] [place], [address] FINGERSTICK GLU 149 mg/dL High [address] [place] [address] Comment on above: Result Comment: PADDY GEMENT OF PATIENT CARE PER NURSING PROTOCOL Performed By: #### L 501.080 #### [facility] [address] [place], [address] Blood polychromasia detectio n by light microscopyOrdered By: Myriam Aguilar on 07-25-2025 Polychromasia LM Ql (Bld) 1+ [facility] CBC W/Diff, Automatedon 07-15 OVALOCYTE 1+ Normal [facility] Comment on above: Performed By: #### L 506.0200, L503.0106, L100.9950, L503.6030, L503.6550 #### [facility] [address] [place], [address] POLYCHROMASIA 1+ Normal [facility] Comment on above: Performed By: #### L 506.0200, L503.0106, L100.9950, L503.6030, L503.6550 #### [facility] [address] [place], [address] Anisocytosis Ql (Bld) 3+ Normal [facility] Comment on above: Performed By: #### L 506.0200, L503.0106, L100.9950, L503.6030, L503.6550 #### [facility] [address] [place], [address] Comprehensive Metabolic Prof [facility] 07-25-2025 Albumin [Mass/Vol] 2.2 g/dL Low 3.5-5.0 [facility] Comment on above: Performed By: #### L 506.0200, L503.0106, L100.9950, L503.6030, L503.6550 #### [facility] [address] [place], [address] Albumin/Globulin [Mass ratio] 0.5 {ratio} Low 0.9-2.4 [facility] Comment on above: Performed By: #### L 506.0200, L503.0106, L100.9950, L503.6030, L503.6550 #### [facility] [address] [place], [address] ALK PHOS 103 U/L Normal 40-129 [facility] Comment on above: Performed By: #### L 506.0200, L503.0106, L100.9950, L503.6030, L503.6550 #### [facility] [address] [place], [address] ALT [Catalytic activity/Vol] 25 U/L Normal <=46 [facility] Comment on above: Performed By: #### L 506.0200, L503.0106, L100.9950, L503.6030, L503.6550 #### [facility] [address] [place], [address] AST [Catalytic activity/Vol] 40 U/L High <=37 [facility] Comment on above: Performed By: #### L 506.0200, L503.0106, L100.9950, L503.6030, L503.6550 #### [facility] [address] [place], [address] Bilirubin [Mass/Vol] 2.14 mg/dL High 0.00-1.30 [facility] Comment on above: Performed By: #### L 506.0200, L503.0106, L100.9950, L503.6030, L503.6550 #### [facility] [address] [place], [address] BUN/CRE 14.3 RATIO Normal 10-20 [facility] Comment on above: Performed By: #### L 506.0200, L503.0106, L100.9950, L503.6030, L503.6550 #### [facility] [address] [place], [address] Calcium [Mass/Vol] 7.5 mg/dL Low 7.6-11.0 [facility] Comment on above: Performed By: #### L 506.0200, L503.0106, L100.9950, L503.6030, L503.6550 #### [facility] [address] [place], [address] Chloride [Moles/Vol] 101 mmol/L Normal 98-108 [facility] Comment on above: Performed By: #### L 506.0200, L503.0106, L100.9950, L503.6030, L503.6550 #### [facility] [address] [place], [address] CO2 [Moles/Vol] 23.4 mmol/L Normal 21.0-32.0 [facility] Comment on above: Performed By: #### L 506.0200, L503.0106, L100.9950, L503.6030, L503.6550 #### [facility] [address] [place], [address] Creatinine [Mass/Vol] 0.58 mg/dL Low 0.70-1.20 [facility] Comment on above: Performed By: #### L 506.0200, L503.0106, L100.9950, L503.6030, L503.6550 #### [facility] [address] [place], [address] ECRCL 257.84 ml/min High 50-250 [facility] Comment on above: Performed By: #### L 506.0200, L503.0106, L100.9950, L503.6030, L503.6550 #### [facility] [address] [place], [address] GAP 9 Normal 5-15 [facility] Comment on above: Performed By: #### L 506.0200, L503.0106, L100.9950, L503.6030, L503.6550 #### [facility] [address] [place], [address] GFR/1.73 sq M.predicted among non-blacks MDRD (S/P/Bld) [Vol rate/Area] 121 mL/min/{1.73_m2} Normal >60 [facility] Comment on above: Result Comment: mL/m in/1.73m2 CKD-EPI Creatinine Equation (2020) Performed By: #### L 506.0200, L503.0106, L100.9950, L503.6030, L503.6550 #### [facility] [address] [place], [address] Globulin (S) [Mass/Vol] 4.2 g/dL Normal 2.2-4.2 [facility] Comment on above: Performed By: #### L 506.0200, L503.0106, L100.9950, L503.6030, L503.6550 #### [facility] [address] [place], [address] Glucose [Mass/Vol] 154 mg/dL High 70-99 [facility] Comment on above: Performed By: #### L 506.0200, L503.0106, L100.9950, L503.6030, L503.6550 #### [facility] [address] [place], [address] Potassium [Moles/Vol] 3.6 mmol/L Normal 3.3-5.1 [facility] Comment on above: Performed By: #### L 506.0200, L503.0106, L100.9950, L503.6030, L503.6550 #### [facility] [address] [place], [address] Sodium [Moles/Vol] 133 mmol/L Normal 133-145 [facility] Comment on above: Performed By: #### L 506.0200, L503.0106, L100.9950, L503.6030, L503.6550 #### [facility] [address] [place], [address] T PROT 6.3 g/dL Normal 5.9-8.4 [facility] Comment on above: Performed By: #### L 506.0200, L503.0106, L100.9950, L503.6030, L503.6550 #### [facility] [address] [place], [address] Urea nitrogen [Mass/Vol] 8 mg/dL Normal 4-19 [facility] Comment on above: Performed By: #### L 506.0200, L503.0106, L100.9950, L503.6030, L503.6550 #### [facility] [address] [place], [address] Eosinophil percentageOrdered By: Myriam Aguilar on 07-25-2025 Eosinophils/100 WBC (Bld) 5.6 % High 0-5 [facility] Immature granulocytes/100 WB C Auto (Bld)Ordered By: Myriam Aguilar on 07-25-2025 Immature granulocytes/100 WBC (Bld) 1.700 % High 0.0-0.9 [facility] Comment on above: IG% - Immature Granu locytes (promyelocytes, myelocytes and metamyelocytes) > 1% indicates that a LEFT SHIFT is Present. Laboratory - Hematology and Cell countsOrdered By: Myriam Aguilar on 07-25-2025 Anisocytosis Ql (Bld) 3+ [facility] Monocyte percentageOrdered B y: Myriam Aguilar on 07-25-2025 Monocytes/100 WBC (Bld) 19.1 % High 0-10 [facility] Neutrophil percentageOrdered By: Myriam Aguilar on 07-25-2025 Neutrophils/100 WBC (Bld) 57.6 % 47-70 [facility] Nucleated red blood cell per centageOrdered By: Myriam Aguilar on 07-25-2025 Nucleated RBC/100 WBC (Bld) [Ratio] 0 % 0-5 [facility] Ovalocyte detectionOrdered B y: Myriam Aguilar on 07-25-2025 Ovalocytes LM Ql (Bld) 1+ [facility] Urine Cultureon 07-25-2025 URC #1, 2 Below infectio n level. Urine Culture Streptococcus agalactiae (B) [place] Count <1000 Mixed Gram Positive Organisms Mixed Gram Positive Organisms MIXC Mixed contaminants. Submit a new specimen if indicated. Normal [facility] Comment on above: Performed By: #### L 501.080 #### [facility] [address] [place], [address] Bedside Glucoseon 07-24-2025 FINGERSTICK GLU 201 mg/dL High -106 [facility] Comment on above: Result Comment: PADDY GEMENT OF PATIENT CARE PER NURSING PROTOCOL Performed By: #### L 506.0200, L503.0106, L100.9950, L503.6030, L503.6550 #### [facility] [address] [place], [address] FINGERSTICK GLU 230 mg/dL High 74-106 [facility] Comment on above: Result Comment: PADDY GEMENT OF PATIENT CARE PER NURSING PROTOCOL Performed By: #### L 501.080 #### [facility] [address] [place], [address] FINGERSTICK GLU 137 mg/dL High [address] [place] [address] Comment on above: Result Comment: PADDY GEMENT OF PATIENT CARE PER NURSING PROTOCOL Performed By: #### L 500.4050, L100.0100 #### [facility] [address] [place], [address] FINGERSTICK GLU 133 mg/dL High -106 [facility] Comment on above: Result Comment: PADDY GEMENT OF PATIENT CARE PER NURSING PROTOCOL Performed By: #### L 506.0200, L503.0106, L100.9950, L503.6030, L503.6550 #### [facility] [address] [place], [address] Blood manual differential co mment interpretation (narrative result)Ordered By: Timoteo Cooper on 07-24-2025 Manual differential comment Hans (Bld) [Interp] SCANNED [facility] CBC W/Diff, Automatedon 07-15 ACANTHOCYTE RARE Normal [facility] Comment on above: Performed By: #### L 500.4050, L100.0100 #### [facility] [address] [place], [address] Anisocytosis Ql (Bld) 2+ Normal [facility] Comment on above: Performed By: #### L 500.4050, L100.0100 #### [facility] [address] [place], [address] BASO STIPPLING 1+ Normal [facility] Comment on above: Performed By: #### L 500.4050, L100.0100 #### [facility] [address] [place], [address] PLT EST SLT DEC Normal ADEQ [facility] Comment on above: Performed By: #### L 500.4050, L100.0100 #### [facility] [address] [place], [address] POLYCHROMASIA 1+ Normal [facility] Comment on above: Performed By: #### L 500.4050, L100.0100 #### [facility] [address] [place], [address] SMEAR COMMENT SCANNED Normal [facility] Comment on above: Performed By: #### L 500.4050, L100.0100 #### [facility] [address] [place], [address] Comprehensive Metabolic Prof [facility] 07-24-2025 Albumin [Mass/Vol] 2.2 g/dL Low 3.5-5.0 [facility] Comment on above: Performed By: #### L 500.4050, L100.0100 #### [facility] [address] [place], [address] Albumin/Globulin [Mass ratio] 0.6 {ratio} Low 0.9-2.4 [facility] Comment on above: Performed By: #### L 500.4050, L100.0100 #### [facility] [address] [place], [address] ALK PHOS 110 U/L Normal 40-129 [facility] Comment on above: Performed By: #### L 500.4050, L100.0100 #### [facility] [address] [place], [address] ALT [Catalytic activity/Vol] 24 U/L Normal <=46 [facility] Comment on above: Performed By: #### L 500.4050, L100.0100 #### [facility] [address] [place], [address] AST [Catalytic activity/Vol] 41 U/L High <=37 [facility] Comment on above: Performed By: #### L 500.4050, L100.0100 #### [facility] [address] [place], [address] Bilirubin [Mass/Vol] 2.01 mg/dL High 0.00-1.30 [facility] Comment on above: Performed By: #### L 500.4050, L100.0100 #### [facility] [address] [place], [address] BUN/CRE 13.5 RATIO Normal 10-20 [facility] Comment on above: Performed By: #### L 500.4050, L100.0100 #### [facility] [address] [place], [address] Calcium [Mass/Vol] 7.5 mg/dL Low 7.6-11.0 [facility] Comment on above: Performed By: #### L 500.4050, L100.0100 #### [facility] [address] [place], [address] Chloride [Moles/Vol] 100 mmol/L Normal 98-108 [facility] Comment on above: Performed By: #### L 500.4050, L100.0100 #### [facility] [address] [place], [address] CO2 [Moles/Vol] 23.7 mmol/L Normal 21.0-32.0 [facility] Comment on above: Performed By: #### L 500.4050, L100.0100 #### [facility] [address] [place], [address] Creatinine [Mass/Vol] 0.64 mg/dL Low 0.70-1.20 [facility] Comment on above: Performed By: #### L 500.4050, L100.0100 #### [facility] [address] [place], [address] ECRCL 233.67 ml/min Normal 50-250 [facility] Comment on above: Performed By: #### L 500.4050, L100.0100 #### [facility] [address] [place], [address] GAP 8 Normal 5-15 [facility] Comment on above: Performed By: #### L 500.4050, L100.0100 #### [facility] [address] [place], [address] GFR/1.73 sq M.predicted among non-blacks MDRD (S/P/Bld) [Vol rate/Area] 117 mL/min/{1.73_m2} Normal >60 [facility] Comment on above: Result Comment: mL/m in/1.73m2 CKD-EPI Creatinine Equation (2020) Performed By: #### L 500.4050, L100.0100 #### [facility] [address] [place], [address] Globulin (S) [Mass/Vol] 4.0 g/dL Normal 2.2-4.2 [facility] Comment on above: Performed By: #### L 500.4050, L100.0100 #### [facility] [address] [place], [address] Glucose [Mass/Vol] 146 mg/dL High 70-99 [facility] Comment on above: Performed By: #### L 500.4050, L100.0100 #### [facility] [address] [place], [address] Potassium [Moles/Vol] 3.7 mmol/L Normal 3.3-5.1 [facility] Comment on above: Performed By: #### L 500.4050, L100.0100 #### [facility] [address] [place], [address] Sodium [Moles/Vol] 131 mmol/L Low 133-145 [facility] Comment on above: Performed By: #### L 500.4050, L100.0100 #### [facility] [address] [place], [address] T PROT 6.2 g/dL Normal 5.9-8.4 [facility] Comment on above: Performed By: #### L 500.4050, L100.0100 #### [facility] [address] [place], [address] Urea nitrogen [Mass/Vol] 9 mg/dL Normal 4-19 [facility] Comment on above: Performed By: #### L 500.4050, L100.0100 #### [facility] [address] [place], [address] Erythrocyte basophilic stipp ling detectionOrdered By: Timoteo Cooper on 07-24-2025 Basophilic stippling LM Ql (Bld) 1+ [facility] Platelet estimateOrdered By: Timoteo Cooper on 07-24-2025 Platelets LM Ql (Bld) SLT DEC ADEQ [facility] Abdomen Limitedon 07-23-2025 Abdomen Limited [facility] [address] [place] [address] Abdomen Limited MR#: [id number] Acct: [id number] Name: ADRY,LEON ANGELA Rep #: [id number] : 1980 M 45 From: Landen nogueira MD PCP: Dr. Alis Duran MD Status: ADM IN Study: Abdomen Limited Date of Exam: 07/23/25 Exam# [id number] Ordering Dr: Timoteo Cooper MD PROCEDURE: ABDOMEN [...] in the right upper quadrant. Reading Location: [id number] CC: Dr. Alis Duran MD; Dr. Timoteo Cooper MD Senior Mechanical Designer: Signed Normal [facility] Bedside Glucoseon 07-23-2025 FINGERSTICK GLU 190 mg/dL High 74-106 [facility] Comment on above: Result Comment: PADYD GEMENT OF PATIENT CARE PER NURSING PROTOCOL Performed By: #### L 506.0200, L503.0106, L100.9950, L503.6030, L503.6550 #### [facility] [address] [place], [address] FINGERSTICK GLU 228 mg/dL High 74-106 [facility] Comment on above: Result Comment: PADDY GEMENT OF PATIENT CARE PER NURSING PROTOCOL Performed By: #### L 506.0200, L503.0106, L100.9950, L503.6030, L503.6550 #### [facility] [address] [place], [address] FINGERSTICK GLU 226 mg/dL High 74-106 [facility] Comment on above: Result Comment: PADDY GEMENT OF PATIENT CARE PER NURSING PROTOCOL Performed By: #### L 501.080 #### [facility] [address] [place], [address] FINGERSTICK GLU 129 mg/dL High 74-106 [facility] Comment on above: Result Comment: PADDY GEMENT OF PATIENT CARE PER NURSING PROTOCOL Performed By: #### L 500.4050, L100.0100 #### [facility] [address] [place], [address] CBC W/Diff, Automatedon 09-0 Anisocytosis Ql (Bld) 1+ Normal [facility] Comment on above: Performed By: #### L 500.4050, L100.0100 #### [facility] [address] [place], [address] Comprehensive Metabolic Prof ilon 07-23-2025 Chloride [Moles/Vol] 101 mmol/L Normal 98-108 [facility] Comment on above: Performed By: #### L 500.4050, L100.0100 #### [facility] [address] [place], [address] CO2 [Moles/Vol] 21.7 mmol/L Normal 21.0-32.0 [facility] Comment on above: Performed By: #### L 500.4050, L100.0100 #### [facility] [address] [place], [address] GAP 9 Normal 5-15 [facility] Comment on above: Performed By: #### L 500.4050, L100.0100 #### [facility] [address] [place], [address] Potassium [Moles/Vol] 3.8 mmol/L Normal 3.3-5.1 [facility] Comment on above: Performed By: #### L 500.4050, L100.0100 #### [facility] [address] [place], [address] Albumin [Mass/Vol] 2.1 g/dL Low 3.5-5.0 [facility] Comment on above: Performed By: #### L 500.4050, L100.0100 #### [facility] [address] [place], [address] Albumin/Globulin [Mass ratio] 0.6 {ratio} Low 0.9-2.4 [facility] Comment on above: Performed By: #### L 500.4050, L100.0100 #### [facility] [address] [place], [address] ALK PHOS 126 U/L Normal 40-129 [facility] Comment on above: Performed By: #### L 500.4050, L100.0100 #### [facility] [address] [place], [address] ALT [Catalytic activity/Vol] 24 U/L Normal <=46 [facility] Comment on above: Performed By: #### L 500.4050, L100.0100 #### [facility] [address] [place], [address] AST [Catalytic activity/Vol] 36 U/L Normal <=37 [facility] Comment on above: Performed By: #### L 500.4050, L100.0100 #### [facility] [address] [place], [address] Bilirubin [Mass/Vol] 2.12 mg/dL High 0.00-1.30 [facility] Comment on above: Performed By: #### L 500.4050, L100.0100 #### [facility] [address] [place], [address] BUN/CRE 12.8 RATIO Normal 10-20 [facility] Comment on above: Performed By: #### L 500.4050, L100.0100 #### [facility] [address] [place], [address] Calcium [Mass/Vol] 7.5 mg/dL Low 7.6-11.0 [facility] Comment on above: Performed By: #### L 500.4050, L100.0100 #### [facility] [address] [place], [address] Creatinine [Mass/Vol] 0.70 mg/dL Normal 0.70-1.20 [facility] Comment on above: Performed By: #### L 500.4050, L100.0100 #### [facility] [address] [place], [address] ECRCL 212.39 ml/min Normal 50-250 [facility] Comment on above: Performed By: #### L 500.4050, L100.0100 #### [facility] [address] [place], [address] GFR/1.73 sq M.predicted among non-blacks MDRD (S/P/Bld) [Vol rate/Area] 114 mL/min/{1.73_m2} Normal >60 [facility] Comment on above: Result Comment: mL/m in/1.73m2 CKD-EPI Creatinine Equation (2020) Performed By: #### L 500.4050, L100.0100 #### [facility] [address] [place], [address] Globulin (S) [Mass/Vol] 3.6 g/dL Normal 2.2-4.2 [facility] Comment on above: Performed By: #### L 500.4050, L100.0100 #### [facility] [address] [place], [address] Glucose [Mass/Vol] 154 mg/dL High 70-99 [facility] Comment on above: Performed By: #### L 500.4050, L100.0100 #### [facility] [address] [place], [address] Sodium [Moles/Vol] 132 mmol/L Low 133-145 [facility] Comment on above: Performed By: #### L 500.4050, L100.0100 #### [facility] [address] [place], [address] T PROT 5.7 g/dL Low 5.9-8.4 [facility] Comment on above: Performed By: #### L 500.4050, L100.0100 #### [facility] [address] [place], [address] Urea nitrogen [Mass/Vol] 9 mg/dL Normal 4-19 [facility] Comment on above: Performed By: #### L 500.4050, L100.0100 #### [facility] [address] [place], [address] Ferritinon 07-23-2025 Ferritin [Mass/Vol] 104 ng/mL Normal 37-417 [facility] Comment on above: Performed By: #### L 506.0200, L503.0106, L100.9950, L503.6030, L503.6550 #### [facility] [address] [place], [address] Folate [Moles/volume] in Ser um or PlasmaOrdered By: Timoteo Cooper on 07-23-2025 Folate [Moles/Vol] 10.50 ng/mL 4.60-34.80 [facility] Folates,Serum (Folic Acid)on 07-23-2025 FOLATES,SERUM 10.50 ng/mL Normal 4.60-34.80 [facility] Comment on above: Performed By: #### L 506.0200, L503.0106, L100.9950, L503.6030, L503.6550 #### [facility] [address] [place], [address] International normalized rat io (INR) calculationOrdered By: Timoteo Cooper on 07-23-2025 INR Coag (Bld) [Relative time] 1.6 {INR} [facility] Iron measurement (mass/mass) Ordered By: Timoteo Cooper on 07-23-2025 Iron (Unsp spec) [Mass/Mass] 152 ug/dL 65-175 [facility] Iron+Iron Binding Capacityon 07-23-2025 Iron [Mass/Vol] 152 ug/dL Normal 65-175 [facility] Comment on above: Performed By: #### L 506.0200, L503.0106, L100.9950, L503.6030, L503.6550 #### [facility] [address] [place], [address] IRON SATURATION 57.0 High 9-55 [facility] Comment on above: Performed By: #### L 506.0200, L503.0106, L100.9950, L503.6030, L503.6550 #### [facility] [address] [place], [address] TIBC 267 ug/dL Normal 250-450 [facility] Comment on above: Performed By: #### L 506.0200, L503.0106, L100.9950, L503.6030, L503.6550 #### [facility] [address] [place], [address] UIBC 115 ug/dL Low 228-428 [facility] Comment on above: Performed By: #### L 506.0200, L503.0106, L100.9950, L503.6030, L503.6550 #### [facility] [address] [place], [address] No Panel InformationOrdered By: Timoteo Cooper on 07-23-2025 Unsaturated Iron Binding Capacity 115 ug/dL Low 228-428 [facility] Prothrombin Time w/INRon INR Coag (PPP) [Relative time] 1.6 {INR} Normal [facility] Comment on above: Performed By: #### L 500.4050, L100.0100 #### [facility] [address] [place], [address] PT Coag (PPP) [Time] 19.8 s High 11.7-14.9 [facility] Comment on above: Performed By: #### L 500.4050, L100.0100 #### [facility] [address] [place], [address] Prothrombin timeOrdered By: Timoteo Cooper on 07-23-2025 PT Coag (PPP) [Time] 19.8 s High 11.7-14.9 [facility] Retic Panelon 07-23-2025 IM RET FRACTION 38.50 High 3.00-15.90 [facility] Comment on above: Performed By: #### L 506.0200, L503.0106, L100.9950, L503.6030, L503.6550 #### [facility] [address] [place], [address] RET-HE 30.2 pg Normal 30-35 [facility] Comment on above: Performed By: #### L 506.0200, L503.0106, L100.9950, L503.6030, L503.6550 #### [facility] [address] [place], [address] Retic Count 3.89 High 0.5-1.5 [facility] Comment on above: Performed By: #### L 506.0200, L503.0106, L100.9950, L503.6030, L503.6550 #### [facility] [address] [place], [address] Reticulocyte hemoglobin equi valent (RET-He) measurementOrdered By: Timoteo Cooper on 07-23-2025 Hemoglobin (Reticulocytes) [Entitic mass] 30.2 pg 30-35 [facility] Reticulocytes Auto (Bld) [#/ Vol]Ordered By: Timoteo Cooper on 07-23-2025 Reticulocytes/100 RBC (Bld) 3.89 % High 0.5-1.5 [facility] Serum or plasma ferritin shelby surement (mass/volume)Ordered By: Timoteo Cooper on 07-23-2025 Ferritin [Mass/Vol] 104 ng/mL 37-417 [facility] Serum or plasma iron saturat ion measurement (mass fraction)Ordered By: Timoteo Cooper on 07-23-2025 Iron saturation [Mass fraction] 57.0 % High 9-55 [facility] Vitamin B12on 07-23-2025 Cobalamin (Vitamin B12) [Mass/Vol] 1344 pg/mL High 180-914 [facility] Comment on above: Performed By: #### L 506.0200, L503.0106, L100.9950, L503.6030, L503.6550 #### [facility] [address] [place], [address] Vitamin B12 ser/plasOrdered By: Timoteo Cooper on 07-23-2025 Cobalamin (Vitamin B12) [Mass/Vol] 1344 pg/mL High 180-914 [facility] Bedside Glucoseon 07-22-2025 FINGERSTICK GLU 194 mg/dL High 74-106 [facility] Comment on above: Result Comment: PADDY GEMENT OF PATIENT CARE PER NURSING PROTOCOL Performed By: #### L 501.080 #### [facility] [address] [place], [address] FINGERSTICK GLU 236 mg/dL High 74-106 [facility] Comment on above: Result Comment: PADDY GEMENT OF PATIENT CARE PER NURSING PROTOCOL Performed By: #### L 501.080 #### [facility] [address] [place], [address] FINGERSTICK GLU 214 mg/dL High 74-106 [facility] Comment on above: Result Comment: PADDY GEMENT OF PATIENT CARE PER NURSING PROTOCOL Performed By: #### L 506.0200, L503.0106, L100.9950, L503.6030, L503.6550 #### [facility] [address] [place], [address] FINGERSTICK GLU 149 mg/dL High 74-106 [facility] Comment on above: Result Comment: PADDY GEMENT OF PATIENT CARE PER NURSING PROTOCOL Performed By: #### L 506.0200, L503.0106, L100.9950, L503.6030, L503.6550 #### [facility] [address] [place], [address] CBC W/Diff, Automatedon 09-0 Anisocytosis Ql (Bld) 2+ Normal [facility] Comment on above: Performed By: #### L 506.0200, L503.0106, L100.9950, L503.6030, L503.6550 #### [facility] [address] [place], [address] OVALOCYTE 1+ Normal [facility] Comment on above: Performed By: #### L 506.0200, L503.0106, L100.9950, L503.6030, L503.6550 #### [facility] [address] [place], [address] PLT EST SLT DEC Normal ADEQ [facility] Comment on above: Performed By: #### L 506.0200, L503.0106, L100.9950, L503.6030, L503.6550 #### [facility] [address] [place], [address] POLYCHROMASIA 1+ Normal [facility] Comment on above: Performed By: #### L 506.0200, L503.0106, L100.9950, L503.6030, L503.6550 #### [facility] [address] [place], [address] Calculated very low density lipoprotein (VLDL) cholesterol measurementOrdered By: Timoteo Cooper on 07-22-2025 Calculated very low density lipoprotein (VLDL) cholesterol measurement 21 mg/dL 5-40 [facility] Comprehensive Metabolic Prof ilon 07-22-2025 Albumin [Mass/Vol] 2.2 g/dL Low 3.5-5.0 [facility] Comment on above: Performed By: #### L 506.0200, L503.0106, L100.9950, L503.6030, L503.6550 #### [facility] [address] [place], [address] Albumin/Globulin [Mass ratio] 0.6 {ratio} Low 0.9-2.4 [facility] Comment on above: Performed By: #### L 506.0200, L503.0106, L100.9950, L503.6030, L503.6550 #### [facility] [address] [place], [address] ALK PHOS 131 U/L High 40-129 [facility] Comment on above: Performed By: #### L 506.0200, L503.0106, L100.9950, L503.6030, L503.6550 #### [facility] [address] [place], [address] ALT [Catalytic activity/Vol] 26 U/L Normal <=46 [facility] Comment on above: Performed By: #### L 506.0200, L503.0106, L100.9950, L503.6030, L503.6550 #### [facility] [address] [place], [address] AST [Catalytic activity/Vol] 36 U/L Normal <=37 [facility] Comment on above: Performed By: #### L 506.0200, L503.0106, L100.9950, L503.6030, L503.6550 #### [facility] [address] [place], [address] Bilirubin [Mass/Vol] 2.57 mg/dL High 0.00-1.30 [facility] Comment on above: Performed By: #### L 506.0200, L503.0106, L100.9950, L503.6030, L503.6550 #### [facility] [address] [place], [address] BUN/CRE 12.3 RATIO Normal 10-20 [facility] Comment on above: Performed By: #### L 506.0200, L503.0106, L100.9950, L503.6030, L503.6550 #### [facility] [address] [place], [address] Calcium [Mass/Vol] 7.7 mg/dL Normal 7.6-11.0 [facility] Comment on above: Performed By: #### L 506.0200, L503.0106, L100.9950, L503.6030, L503.6550 #### [facility] [address] [place], [address] Chloride [Moles/Vol] 100 mmol/L Normal 98-108 [facility] Comment on above: Performed By: #### L 506.0200, L503.0106, L100.9950, L503.6030, L503.6550 #### [facility] [address] [place], [address] CO2 [Moles/Vol] 22.4 mmol/L Normal 21.0-32.0 [facility] Comment on above: Performed By: #### L 506.0200, L503.0106, L100.9950, L503.6030, L503.6550 #### [facility] [address] [place], [address] Creatinine [Mass/Vol] 0.69 mg/dL Low 0.70-1.20 [facility] Comment on above: Performed By: #### L 506.0200, L503.0106, L100.9950, L503.6030, L503.6550 #### [facility] [address] [place], [address] ECRCL 215.46 ml/min Normal 50-250 [facility] Comment on above: Performed By: #### L 506.0200, L503.0106, L100.9950, L503.6030, L503.6550 #### [facility] [address] [place], [address] GAP 7 Normal 5-15 [facility] Comment on above: Performed By: #### L 506.0200, L503.0106, L100.9950, L503.6030, L503.6550 #### [facility] [address] [place], [address] GFR/1.73 sq M.predicted among non-blacks MDRD (S/P/Bld) [Vol rate/Area] 115 mL/min/{1.73_m2} Normal >60 [facility] Comment on above: Result Comment: mL/m in/1.73m2 CKD-EPI Creatinine Equation (2020) Performed By: #### L 506.0200, L503.0106, L100.9950, L503.6030, L503.6550 #### [facility] [address] [place], [address] Globulin (S) [Mass/Vol] 3.8 g/dL Normal 2.2-4.2 [facility] Comment on above: Performed By: #### L 506.0200, L503.0106, L100.9950, L503.6030, L503.6550 #### [facility] [address] [place], [address] Glucose [Mass/Vol] 167 mg/dL High 70-99 [facility] Comment on above: Performed By: #### L 506.0200, L503.0106, L100.9950, L503.6030, L503.6550 #### [facility] [address] [place], [address] Potassium [Moles/Vol] 4.0 mmol/L Normal 3.3-5.1 [facility] Comment on above: Performed By: #### L 506.0200, L503.0106, L100.9950, L503.6030, L503.6550 #### [facility] [address] [place], [address] Sodium [Moles/Vol] 130 mmol/L Low 133-145 [facility] Comment on above: Performed By: #### L 506.0200, L503.0106, L100.9950, L503.6030, L503.6550 #### [facility] [address] [place], [address] T PROT 6.0 g/dL Normal 5.9-8.4 [facility] Comment on above: Performed By: #### L 506.0200, L503.0106, L100.9950, L503.6030, L503.6550 #### [facility] [address] [place], [address] Urea nitrogen [Mass/Vol] 8 mg/dL Normal 4-19 [facility] Comment on above: Performed By: #### L 506.0200, L503.0106, L100.9950, L503.6030, L503.6550 #### [facility] [address] [place], [address] Echo Complete W/ Contraston 07-22-2025 Echo Complete W/ Contrast [facility] [address] [place] [address] Echo Complete W/ Contrast 07/22/25825 MR#: [id number] Acct: [id number] Name: LEON RIDER Rep #: [id number] : 1980 45 From: Rosalee Kirby MD Attending Dr: Dr. Timoteo Cooper MD Status: ADM IN Ordering Dr: Timoteo Cooper MD Date: 07/22/25 Location: [facility] Sex: M C Admitted: 07/21/25 Reason For [...] MD Date Dictated: 07/22/25825 Date Transcribed: 07/22/251044 Senior Mechanical Designer: Signed Normal [facility] Echocardiogram study reportO rdered By: Rosalee Kirby on 07-22-2025 Study report [facility] [address] [place] [address] Echo Complete W/ Contrast 07/22/25 0826 MR#: [id number] Acct: [id number] Name: LEON RIDER Rep #:[id number] : 1980 45 From: Rosalee Kirby MD Attending Dr: Dr. Timoteo Cooper MD Status: ADM IN Ordering Dr: Timoteo Cooper MD Date: 0 07/22/25 Location: [facility] Sex: M C Admitted: 07/21/25 Reason For [...] ~ Date Dictated: 07/22/25825 Date Transcribed: 07/22/251044 Senior Mechanical Designer: Signed [facility] Work Phone: Electrocardiogram reportOrde red By: Jocelyne Henley on 07-22-2025 EKG study [facility] [address] [place] [address] 12 Lead EKG 07/21/25 0941 MR#: [id number] Acct: [id number] Name: LEON RIDER Rep #:[id number] : 1980 45 From: Jocelyne cruz MD Attending Dr: Dr. Timoteo Cooper MD Status: ADM IN Ordering Dr: Denice Leal DO Date: 0 07/21/25 Location: [facility] Sex: M C Admitted: 07/21/25 Test Reason : GENERAL Blood Pressure : */* mmHG Vent. Rate : 101 BPM Atrial Rate : 101 BPM P-R Int : 162 ms QRS Dur : 82 ms QT Int : 370 ms P-R-T Axes : 71 4 82 degrees QTcB Int : 479 ms Sinus tachycardia Nonspecific T wave abnormality Abnormal ECG Confirmed by Jocelyne Henley ([id number]), senior technical editor CARLITOS MORGAN ([id number]) on 07/22/2025 9:49:19 AM Referred By: Confirmed By: Jocelyne Henley 07/22/25 0949 Date _ Jocelyne Henley MD CC: Dr. Alis Duran MD; Dr. Denice Leal DO; Dr. Timoteo Cooper MD ~ Signed [facility] Other Hemoglobin A1con 07-22-2025 HbA1c (Bld) [Mass fraction] 6.1 % High <=5.6 [facility] Comment on above: Result Comment: Norm al < 5.7 % Prediabetic 5.7 - 6.4 % Diabetic >or= 6.5 % Please note range changes. Performed By: #### L 506.0200, L503.0106, L100.9950, L503.6030, L503.6550 #### [facility] [address] [place], [address] Hemoglobin A1c percentageOrd ered By: Timoteo Cooper on 07-22-2025 HbA1c (Bld) [Mass fraction] 6.1 % High <5.7 [facility] Comment on above: Normal < 5.7 % Predi abetic 5.7 - 6.4 % Diabetic >or= 6.5 % Please note range changes. LDL calc ser/plasOrdered By: Timoteo Cooper on 07-22-2025 Cholesterol in LDL [Mass/Vol] 68 mg/dL [facility] Comment on above: Nqjscjidrv=176-806 m g/dL & Higher Jhhc=879 mg/dL or greaterFriedwald Equation for LDL-C Lipid Profileon 07-22-2025 CHOL:HDL 5.63 Normal [facility] Comment on above: Performed By: #### L 506.0200, L503.0106, L100.9950, L503.6030, L503.6550 #### [facility] [address] [place], [address] Cholesterol [Mass/Vol] 108 mg/dL Normal <=200 [facility] Comment on above: Result Comment: Chol esterol level, Desirable <200 mg/dL Borderline high cholesterol 200-239 mg/dL High cholesterol >=240 mg/dL Recommendations of the NCEP Adult Treatment Panel for the following risk-cutoff thresholds for the [place] population. Performed By: #### L 506.0200, L503.0106, L100.9950, L503.6030, L503.6550 #### [facility] [address] [place], [address] Cholesterol in HDL [Mass/Vol] 19 mg/dL Low [facility] Comment on above: Result Comment: Cristina onal Cholesterol Education Program (NCEP) guidelines: <40 mg/dL: Low HDL-cholesterol (major risk factor for CHD) >= 60 mg/dL: High HDL-cholesterol (negative risk factor for CHD) HDL-cholesterol is affected by a number of factors, e.g. smoking, exercise, hormones, sex and age. Performed By: #### L 506.0200, L503.0106, L100.9950, L503.6030, L503.6550 #### [facility] [address] [place], [address] Cholesterol in LDL [Mass/Vol] 68 mg/dL Normal [facility] [facility] Comment on above: Result Comment: Bord cxbxkr=921-890 mg/dL Higher Agxc=110 mg/dL or greater Friedwald Equation for LDL-C Performed By: #### L 506.0200, L503.0106, L100.9950, L503.6030, L503.6550 #### [facility] [address] [place], [address] Cholesterol in VLDL [Mass/Vol] 21 mg/dL Normal 5-40 [facility] Comment on above: Performed By: #### L 506.0200, L503.0106, L100.9950, L503.6030, L503.6550 #### [facility] [address] [place], [place], [id number] ([phone] Triglyceride [Mass/Vol] 105 mg/dL Normal [facility] Comment on above: Result Comment: The drugs N-Acetylcysteine and Metamizole may falsely depress this assay. Normal range: <150 mg/dL Borderline High: 150-199 mg/dL High: 200-499 mg/dL Very High: >500 mg/dL Performed By: #### L 506.0200, L503.0106, L100.9950, L503.6030, L503.6550 #### [facility] [address] [facility] [place], [place], [phone] ([phone]) Screening total cholesterol/ high density lipoprotein (HDL) cholesterol ratioOrdered By: Timoteo Cooper on 07-22-2025 Cholesterol.total/[place] sterol in HDL [Mass ratio] 5.63 {ratio} [facility] Serum or plasma cholesterol in HDL measurement (mass/volume)Ordered By: Timoteo Cooper on 07-22-2025 Cholesterol in HDL [Mass/Vol] 19 mg/dL Low >40 [facility] Comment on above: National Cholesterol Education Program (NCEP) guidelines:<40 mg/dL: Low HDL-cholesterol (major risk factor for CHD)>= 60 mg/dL: High HDL-cholesterol (negative risk factor for CHD)HDL-cholesterol is affected by a number of factors, e.g. smoking, exercise, hormones, sex and age. Serum or plasma cholesterol measurement (mass/volume)Ordered By: Timoteo Cooper on 07-22-2025 Cholesterol [Mass/Vol] 108 mg/dL <201 [facility] Comment on above: Cholesterol level, D esirable <200 mg/dLBorderline high cholesterol 200-239 mg/dLHigh cholesterol >=240 mg/dLRecommendations of the NCEP Adult Treatment Panel for the following risk-cutoff thresholds for the [place] population. TSH DL <= 0.005 mIU/L QnOrde red By: Timoteo Cooper on 07-22-2025 TSH Qn 1.380 uIU/mL 0.300-4.20 0 [facility] Thyroid Stim Hormone (TSH)on 07-22-2025 TSH 1.380 uIU/mL Normal 0.300-4.20 0 [facility] Comment on above: Performed By: #### L 506.0200, L503.0106, L100.9950, L503.6030, L503.6550 #### [facility] [address] [facility] [place], [address] Triglycerides measurementOrd ered By: Timoteo Cooper on 07-22-2025 Triglyceride [Mass/Vol] 105 mg/dL <199 [facility] Comment on above: The drugs N-Acetylcy steine and Metamizole may falsely depress this assay. Normal range: <150 mg/dLBorderline High: 150-199 mg/dLHigh: 200-499 mg/dLVery High: >500 mg/dL 12 Lead EKGon 07-21-2025 12 Lead EKG [facility] [address] [place] [address] 12 Lead EKG 07/21/25 0941 MR#: [id number] Acct: [id number] Name: LEON RIDER Rep #: [id number] : 1980 45 From: Jocelyne Henley MD Attending Dr: Dr. Timoteo Cooper MD Status: ADM IN Ordering Dr: Denice Leal DO Date: 07/21/25 Location: [facility] Sex: M C Admitted: 07/21/25 Test Reason : GENERAL Blood Pressure : */* mmHG Vent. Rate : 101 BPM Atrial Rate : 101 BPM P-R Int : 162 ms QRS Dur : 82 ms QT Int : 370 ms P-R-T Axes : 71 4 82 degrees QTcB Int : 479 ms Sinus tachycardia Nonspecific T wave abnormality Abnormal ECG Confirmed by Jocelyne Henley ([id number]), senior technical editor CARLITOS MORGAN ([id number]) on 07/22/2025 9:49:19 AM Referred By: Confirmed By: Jocelyne Henley 07/22/2549 Date Jocelyne Henley MD CC: Dr. Alis Duran MD; Dr. Denice Leal DO; Dr. Timoteo Cooper MD Signed Normal [facility] Absolute lymphocyte countOrd ered By: Denice Leal on 07-21-2025 Lymphocytes Auto (Unsp spec) [#/Vol] 0.97 10*3/uL 0.83-4.51 [facility] Absolute neutrophil countOrd ered By: Denice Leal on 07-21-2025 Neutrophils (Bld) [#/Vol] 6.6 10*3/uL 2.0-7.7 [facility] Activated partial thrombopla stin time (aPTT) in platelet poor plasma by coagulation aOrdered By: Denice Leal on 07-21-2025 aPTT Coag (PPP) [Time] 39.4 s High 24.1-36.2 [facility] Anion gap in Serum or Plasma Ordered By: Denice Leal on 07-21-2025 Anion gap [Moles/Vol] 12 mmol/L 5-15 [facility] Automated lymphocyte count a s percentage of total leukocytesOrdered By: Denice Leal on 07-21-2025 Lymphocytes/100 WBC Auto (Unsp spec) 10.4 % Low 19-41 [facility] BUN/creatinine ratioOrdered By: Denice Leal on 07-21-2025 Urea nitrogen/Creatinine [Mass ratio] 12.9 mg/mg 10-20 [facility] Basophil percentageOrdered B y: Denice Leal on 07-21-2025 Basophils/100 WBC (Bld) 0.5 % 0-1 [facility] Bedside Glucoseon 07-21-2025 FINGERSTICK GLU 165 mg/dL High 74-106 [facility] Comment on above: Result Comment: PADDY GEMENT OF PATIENT CARE PER NURSING PROTOCOL Performed By: #### L 506.0200, L503.0106, L100.9950, L503.6030, L503.6550 #### [facility] [address] [place], [address] FINGERSTICK GLU 213 mg/dL High 74-106 [facility] Comment on above: Result Comment: PADDY GEMENT OF PATIENT CARE PER NURSING PROTOCOL Performed By: #### L 500.4050, L100.0100 #### [facility] [address] [place], [address] Bilirubin Test strip Ql (U)O rdered By: Denice Leal on 07-21-2025 Bilirubin Ql (U) 1 mg/dL High Negative [facility] Comment on above: COLOR OF URINE MAY A FFECT DIPSTICK RESULTS. Bilirubin directOrdered By: Timoteo Cooper on 07-21-2025 Bilirubin.direct [Mass/Vol] 1.79 mg/dL High 0.00-0.30 [facility] Bilirubin, Directon 07-21-20 25 Bilirubin.direct [Mass/Vol] 1.79 mg/dL High 0.00-0.30 [facility] Comment on above: Performed By: #### L 506.0200, L503.0106, L100.9950, L503.6030, L503.6550 #### [facility] [address] [place], [address] Bilirubin, totalOrdered By: Denice Leal on 07-21-2025 Bilirubin [Mass/Vol] 3.82 mg/dL High 0.00-1.30 [facility] Blood cultureOrdered By: Hilaria Leal on 07-21-2025 Bacteria identified Cx Nom (Bld) No growth in 5 days. [facility] Blood manual differential co mment interpretation (narrative result)Ordered By: Denice Leal on 09-07-2025 Manual differential comment Hans (Bld) [Interp] SCANNED [facility] Blood polychromasia detectio n by light microscopyOrdered By: Denice Leal on 07-21-2025 Polychromasia LM Ql (Bld) 1+ [facility] CBC W/Diff, Automatedon MICROCYTIC 1+ Normal [facility] Comment on above: Performed By: #### L 499.0043 #### [facility] [address] [place], [address] POLYCHROMASIA 1+ Normal [facility] Comment on above: Performed By: #### L 499.0043 #### [facility] [address] [place], [address] Anisocytosis Ql (Bld) 2+ Normal [facility] Comment on above: Performed By: #### L 499.0043 #### [facility] [address] [place], [address] TARGET CELLS 1+ Normal [facility] Comment on above: Performed By: #### L 499.0043 #### [facility] [address] [place], [address] SMEAR COMMENT SCANNED Normal [facility] Comment on above: Performed By: #### L 499.0043 #### [facility] [address] [place], [address] CTA Chest W/WO Contraston CTA Chest W/WO Contrast [facility] Imaging Services [address] [place] [address] CTA Chest W/WO Contrast MR#: [id number] Acct: [id number] Name: LEON RIDER Rep #: [id number] : 1980 M 45 From: Jocelyne Salinas MD PCP: Dr. Alis Duran MD Status: REG ER Study: CTA Chest W/WO Contrast Date of Exam: 07/21/25 Exam# [id number] Ordering Dr: Godman,Denice DO PROCEDURE: CTA CHEST [...] edema. Mild mediastinal adenopathy. Cirrhosis. Reading Location: [id number] CC: Dr. Alis Duran MD; Dr. Denice Leal DO Senior Mechanical Designer: Signed Normal [facility] Carbon dioxide, total [Moles /volume] in Central venous bloodOrdered By: Denice Leal on 07-21-2025 CO2 [Moles/Vol] 17.8 mmol/L Low 21.0-32.0 [facility] Chloride assayOrdered By: Fransico Leal on 07-21-2025 Chloride [Moles/Vol] 97 mmol/L Low 98-108 [facility] Comprehensive Metabolic Prof ilon 07-21-2025 Albumin [Mass/Vol] 2.5 g/dL Low 3.5-5.0 [facility] Comment on above: Performed By: #### L 499.0043 #### [facility] [address] [place], [address] Albumin/Globulin [Mass ratio] 0.6 {ratio} Low 0.9-2.4 [facility] Comment on above: Performed By: #### L 499.0043 #### [facility] [address] [place], [address] ALK PHOS 109 U/L Normal 40-129 [facility] Comment on above: Performed By: #### L 499.0043 #### [facility] [address] [place], [address] ALT [Catalytic activity/Vol] 33 U/L Normal <=46 [facility] Comment on above: Performed By: #### L 499.0043 #### [facility] [address] [place], [address] AST [Catalytic activity/Vol] 42 U/L High <=37 [facility] Comment on above: Performed By: #### L 499.0043 #### [facility] [address] [place], [address] Bilirubin [Mass/Vol] 3.82 mg/dL High 0.00-1.30 [facility] Comment on above: Performed By: #### L 499.0043 #### [facility] [address] [place], [address] BUN/CRE 12.9 RATIO Normal 10-20 [facility] Comment on above: Performed By: #### L 499.0043 #### [facility] [address] [place], [address] Calcium [Mass/Vol] 8.1 mg/dL Normal 7.6-11.0 [facility] Comment on above: Performed By: #### L 499.0043 #### [facility] [address] [place], [address] Chloride [Moles/Vol] 97 mmol/L Low 98-108 [facility] Comment on above: Performed By: #### L 499.0043 #### [facility] [address] [place], [address] CO2 [Moles/Vol] 17.8 mmol/L Low 21.0-32.0 [facility] Comment on above: Performed By: #### L 499.0043 #### [facility] [address] [place], [address] Creatinine [Mass/Vol] 0.66 mg/dL Low 0.70-1.20 [facility] Comment on above: Performed By: #### L 499.0043 #### [facility] [address] [place], [address] GAP 12 Normal 5-15 [facility] Comment on above: Performed By: #### L 499.0043 #### [facility] [address] [place], [address] GFR/1.73 sq M.predicted among non-blacks MDRD (S/P/Bld) [Vol rate/Area] 117 mL/min/{1.73_m2} Normal >60 [facility] Comment on above: Result Comment: mL/m in/1.73m2 CKD-EPI Creatinine Equation (2020) Performed By: #### L 499.0043 #### [facility] [address] [place], [address] Globulin (S) [Mass/Vol] 4.1 g/dL Normal 2.2-4.2 [facility] Comment on above: Performed By: #### L 499.0043 #### [facility] [address] [place], [address] Glucose [Mass/Vol] 168 mg/dL High 70-99 [facility] Comment on above: Performed By: #### L 499.0043 #### [facility] [address] [place] [place], [address] Potassium [Moles/Vol] 3.7 mmol/L Normal 3.3-5.1 [facility] Comment on above: Performed By: #### L 499.0043 #### [facility] [address] [place], [address] Sodium [Moles/Vol] 127 mmol/L Low 133-145 [facility] Comment on above: Performed By: #### L 499.0043 #### [facility] [address] [place], [address] T PROT 6.6 g/dL Normal 5.9-8.4 [facility] Comment on above: Performed By: #### L 499.0043 #### [facility] [address] [place], [address] Urea nitrogen [Mass/Vol] 8 mg/dL Normal 4-19 [facility] Comment on above: Performed By: #### L 499.0043 #### [facility] [address] [place], [address] Emergency Department Summary on 07-21-2025 Emergency Department Summary [facility] Medical Records Department [address] [place] [address] Emergency Department Summary 07/21/25 MR#: [id number] Acct: [id number] Name: LEON RIDER Rep #: [id number] : 1980 45 From: Denice Leal DO PCP: Dr. Alis Duran MD Status:ADM IN Location: [address] History of Present Illness Chief Complaint: [...] couple minutes. He was working at the [employer] at that time. He returned that evening [...] other complaints or concerns reported this time [facility] Medical History HTN (hypertension) Diabetes Acid [...] 09:08 Surgical History H/O umbilical hernia repair [place] teeth extracted Social History (Updated 07/21/25 @ [...] Mildly ill-appearing (more content not included)... Normal [facility] Eosinophil percentageOrdered By: Denice Leal on 07-21-2025 Eosinophils/100 WBC (Bld) 2.3 % 0-5 [facility] Erythrocyte distribution wid th ratioOrdered By: Denice Leal on 07-21-2025 Erythrocyte distribution width (RBC) [Ratio] 22.6 % High 11.6-14.6 [facility] Erythrocyte distribution wid th standard deviationOrdered By: Denice Leal on 07-21-2025 Erythrocyte distribution width (RBC) [Ratio] 63.7 fl High 35.1-43.9 [facility] Glomerular filtration rate ( GFR) estimation/1.73 sq m using serum, plasma, or whole bOrdered By: Denice Leal on 07-21-2025 GFR/1.73 sq M.predicted among non-blacks MDRD (S/P/Bld) [Vol rate/Area] 117 mL/min/{1.73_m2} >60 [facility] Comment on above: mL/min/1.73m2 CKD-EP I Creatinine Equation (2020) H AND P Exam - [facility] 07-21-2025 H&P Exam - Hospitalist [facility] Medical Records Department [address] [place] [address] H P Exam - Hospitalist 07/21/25 1150 MR#: [id number] Acct: [id number] Name: LEON RIDRE Rep #: [id number] : 1980 45 From: Timoteo Cooper MD PCP: Dr. Alis Duran MD Status:ADM IN Location: [place] [address] HPI - General General Date of Admission: [...] to 10 years ago. Does not follow job placement counselor. [facility] Medical History HTN (hypertension) Diabetes Acid reflux Rectal bleeding Hemorrhoids Home Medications ???Medication ???Instructions ???Recorded ???Last Taken ???Type Diltiazem 10mg/Lidocaine 50mg See Rx Instructions [place] .BID #30 Unknown Rx Suppository 30 supp [...] 09:08 Surgical History H/O umbilical hernia repair [place] teeth extracted Social History household members: spouse [...] Mild crepitat (more content not included)... Normal [facility] Hematocrit Auto (Bld) [Volum e fraction]Ordered By: Denice Leal on 07-21-2025 Hematocrit (Bld) [Volume fraction] 26.8 % Low 40-54 [facility] Hemoglobin measurementOrdere d By: Denice Leal on 07-21-2025 Hemoglobin (Bld) [Mass/Vol] 8.8 g/dL Low 13.0-16.5 [facility] Immature granulocytes/100 WB C Auto (Bld)Ordered By: Denice Leal on 07-21-2025 Immature granulocytes/100 WBC (Bld) 0.600 % 0.0-0.9 [facility] Comment on above: IG% - Immature Granu locytes (promyelocytes, myelocytes and metamyelocytes) > 1% indicates that a LEFT SHIFT is Present. Influenza virus A and B and SARS-CoV-2 (COVID-19) and Respiratory syncytial virus RNAOrdered By: Denice Leal on 07-21-2025 SARS-CoV-2 (COVID-19) RNA CHARLIE+probe Ql (Unsp spec) [facility] International normalized rat io (INR) calculationOrdered By: Denice Leal on 07-21-2025 INR Coag (Bld) [Relative time] 1.7 {INR} [facility] Ketones Test strip Ql (U)Ord ered By: Denice Leal on 07-21-2025 Ketones Ql (U) Negative Negative [facility] L501.4021on 07-21-2025 Trop T High Sen 8 ng/L Normal <=22 [facility] Comment on above: Performed By: #### L 500.4050, L100.0100 #### [facility] [address] [place], [address] Laboratory - Chemistry and C hemistry - challengeOrdered By: Denice Leal on 07-21-2025 AST [Catalytic activity/Vol] 42 U/L High <38 [facility] - Hematology and Cell countsOrdered By: Denice Leal on 07-21-2025 Anisocytosis Ql (Bld) 2+ [facility] Lactic Acidon 07-21-2025 Lactate [Moles/Vol] 2.5 mmol/L Invalid Interpretation Code 0.0-2.0 [facility] Comment on above: Result Comment: Crit ical Result(s) Called at: 1515 by: CARROL GUPTA TO GIA MELLO??Results read back by same. Performed By: #### L 501.080 #### [facility] [address] [place], [address] Lactate [Moles/Vol] 3.2 mmol/L Invalid Interpretation Code 0.0-2.0 [facility] Comment on above: Order Comment: Y Result Comment: Crit ical Result(s) Called NJOHNSON at: 1019 by: LATASHA??Results read back by same. Performed By: #### L 499.0043 #### [facility] [address] [place], [place], [address] Lactic acid measurementOrder ed By: Denice Leal on 07-21-2025 Lactate [Moles/Vol] 2.5 mmol/L Critically high 0.0-2.0 [facility] Comment on above: Critical Result(s) C alled at: 1515 by: CARROL MELLO Results read back by same. Lactate [Moles/Vol] 3.2 mmol/L High 0.0-2.0 [facility] Comment on above: Critical Result(s) C alled CHELNMALEJANDRO at: 1019 by: LATASHA Results read back by same. M100.678on 07-21-2025 M100.678 Normal Reference Ran ge = Negative [employer] Instrument, PCR method SARS-CoV-2 (COVID 19) Negative INFLUENZA A Negative INFLUENZA B Negative RSV PCR Negative Normal [facility] Comment on above: Performed By: #### L 501.080 #### [facility] [address] [place], [place], [address] MCV (mean corpuscular volume ) determinationOrdered By: Denice Leal on 07-21-2025 MCV (RBC) [Entitic vol] 80.0 fL 80-94 [facility] Magnesiumon 07-21-2025 Magnesium [Mass/Vol] 1.8 mg/dL Normal 1.5-2.2 [facility] Comment on above: Performed By: #### L 506.0200, L503.0106, L100.9950, L503.6030, L503.6550 #### [facility] [address] [place], [place], [address] Mean corpuscular hemoglobin (MCH) determinationOrdered By: Denice Leal on 07-21-2025 MCH (RBC) [Entitic mass] 26.3 pg Low 27.0-32.0 [facility] Mean corpuscular hemoglobin concentration (MCHC) determinationOrdered By: Denice Leal on 07-21-2025 MCHC (RBC) [Mass/Vol] 32.8 g/dL 32-36 [facility] Mean platelet volume determi nationOrdered By: Denice Leal on 07-21-2025 Platelet mean volume (Bld) [Entitic vol] 10.3 fL 6.2-12.0 [facility] Microscopic analysis of urin e for red blood cells (RBC)Ordered By: Denice Leal on 07-21-2025 Microscopic analysis of urine for red blood cells (RBC) 0 SEEN /hpf 0-5 [facility] Monocyte percentageOrdered B y: Denice Leal on 07-21-2025 Monocytes/100 WBC (Bld) 15.8 % High 0-10 [facility] Mucus LM Ql (Urine sed)Order ed By: Denice Leal on 07-21-2025 Mucus Ql (Urine sed) 0 SEEN /hpf [facility] Natriuretic peptide.B prohor reji N-Terminal [Mass/volume] in Serum or PlasmaOrdered By: Denice Leal on 07-21-2025 Natriuretic peptide.B prohormone N-Terminal [Mass/Vol] 106 pg/mL <450 [facility] Comment on above: Heart Failure Unlike ly: < 300 pg/mLHeart Failure Likely< 50 Years: > 450 pg/mL50-75 Years: > 900 pg/mL>75 Years: > 1800 pg/mL Neutrophil percentageOrdered By: Denice Leal on 07-21-2025 Neutrophils/100 WBC (Bld) 70.4 % High 47-70 [facility] Nitrite Test strip Ql (U)Ord ered By: Deniec Leal on 07-21-2025 Nitrite Ql (U) Negative Negative [facility] Nucleated red blood cell per centageOrdered By: Denice Leal on 07-21-2025 Nucleated RBC/100 WBC (Bld) [Ratio] 0 % 0-5 [facility] Partial Thromboplast Timeon 07-21-2025 aPTT Coag (Bld) [Time] 39.4 s High 24.1-36.2 [facility] Comment on above: Performed By: #### L 499.0043 #### [facility] [address] [place], [place], [address] Platelet countOrdered By: Fransico Leal on 07-21-2025 Platelets (Bld) [#/Vol] 112 10*3/uL Low 150-450 [facility] Potassium measurement (mass/ volume)Ordered By: Denice Leal on 07-21-2025 Potassium (Unsp spec) [Mass/Vol] 3.7 mmol/L 3.3-5.1 [facility] Pro- Brain NATRIURETIC PEPTI Chaparro 07-21-2025 Natriuretic peptide B (Bld) [Mass/Vol] 106 pg/mL Normal <=450 [facility] Comment on above: Result Comment: Hear t Failure Unlikely: < 300 pg/mL Heart Failure Likely < 50 Years: > 450 pg/mL 50-75 Years: > 900 pg/mL >75 Years: > 1800 pg/mL Performed By: #### L 499.0043 #### [facility] [address] [place], [place], [id number] Protein Test strip Ql (U)Ord ered By: Denice Leal on 07-21-2025 Protein Ql (U) 30 mg/dl High Negative [facility] Prothrombin Time w/INRon INR Coag (PPP) [Relative time] 1.7 {INR} Normal [facility] Comment on above: Performed By: #### L 499.0043 #### [facility] [address] [place], [address] PT Coag (PPP) [Time] 20.3 s High 11.7-14.9 [facility] Comment on above: Performed By: #### L 499.0043 #### [facility] [address] [place], [place], [address] Prothrombin timeOrdered By: Denice Leal on 07-21-2025 PT Coag (PPP) [Time] 20.3 s High 11.7-14.9 [facility] RBC Auto (Bld) [#/Vol]Ordere d By: Denice Leal on 07-21-2025 RBC (Bld) [#/Vol] 3.35 10*6/uL Low 4.6-6.2 [facility] Serum creatinine measurement (mass/volume)Ordered By: Denice Leal on 07-21-2025 Creatinine [Mass/Vol] 0.66 mg/dL Low 0.70-1.20 [facility] Serum globulin measurementOr dered By: Denice Leal on 07-21-2025 Globulin (S) [Mass/Vol] 4.1 g/dL 2.2-4.2 [facility] Serum glucose measurement (m ass/volume)Ordered By: Denice Leal on 07-21-2025 Glucose [Mass/Vol] 168 mg/dL High 70-99 [facility] Serum or plasma alanine reyes otransferase (ALT) measurementOrdered By: Denice Leal on 07-21-2025 ALT [Catalytic activity/Vol] 33 U/L <47 [facility] Serum or plasma albumin wilfred urement (mass/volume)Ordered By: Denice Leal on 07-21-2025 Albumin [Mass/Vol] 2.5 g/dL Low 3.5-5.0 [facility] Serum or plasma albumin/glob ulin mass ratioOrdered By: Denice Leal on 07-21-2025 Albumin/Globulin [Mass ratio] 0.6 {ratio} Low 0.9-2.4 [facility] Serum or plasma alkaline roge sphatase measurementOrdered By: Denice Leal on 07-21-2025 ALP [Catalytic activity/Vol] 109 U/L 40-129 [facility] Serum or plasma calcium wilfred urement (mass/volume)Ordered By: Denice Leal on 07-21-2025 Calcium [Mass/Vol] 8.1 mg/dL 7.6-11.0 [facility] Serum or plasma urea nitroge n measurement (mass/volume)Ordered By: Denice Leal on 07-21-2025 Urea nitrogen [Mass/Vol] 8 mg/dL 4-19 [facility] Sodium levelOrdered By: Paula Leal on 07-21-2025 Sodium [Moles/Vol] 127 mmol/L Low 133-145 [facility] Squamous epithelial cells de tection in urine sediment by light microscopyOrdered By: Denice Leal on 07-21-2025 Epithelial cells.squamous LM Ql (Urine sed) 0 SEEN /hpf 0-5 [facility] Stool Occult Blood iFOBon STOB Normal Reference Ran ge = Negative Immunochemical Fecal Occult Blood (iFOBT) method. Hemoccult Stl Ql IA Limitation: Menstrual bleeding, constipation bleeding, bleeding hemorrhoids, and urinary bleeding conditions may interfere with test. Occult Blood Negative Normal [facility] Comment on above: Performed By: #### L 500.4050, L100.0100 #### [facility] [address] [place], [address] Stool gastrointestinal hemog lobin detection by immunologic methodOrdered By: Denice Leal on 07-21-2025 Lower GI hemoglobin IA Ql (Stl) [facility] TSH DL <= 0.005 mIU/L QnOrde red By: Denice Leal on 07-21-2025 TSH Qn 1.550 uIU/mL 0.300-4.20 0 [facility] Target cell detectionOrdered By: Denice Leal on 07-21-2025 Target cells LM Ql (Bld) 1+ [facility] Thyroid Stim Hormone (TSH)on 07-21-2025 TSH 1.550 uIU/mL Normal 0.300-4.20 0 [facility] Comment on above: Performed By: #### L 499.0043 #### [facility] [address] [place], [place], [id number] Total proteinOrdered By: Hilaria Leal on 07-21-2025 Protein [Mass/Vol] 6.6 g/dL 5.9-8.4 [facility] Troponin T HS 2 HRon 025 Trop T High Sen 7 ng/L Normal <=22 [facility] Comment on above: Performed By: #### L 506.0200, L503.0106, L100.9950, L503.6030, L503.6550 #### [facility] [address] [place], [address] Troponin T HS 4 HRon 025 Trop T High Sen 7 ng/L Normal <=22 [facility] Comment on above: Performed By: #### L 499.0043 #### [facility] [address] [place], [address] Troponin T.cardiac [Mass/vol ume] in Serum or Plasma by High sensitivity methodOrdered By: Denice Leal on 07-21-2025 Troponin T.cardiac High sensitivity method [Mass/Vol] 7 ng/L <22 [facility] Troponin T.cardiac High sensitivity method [Mass/Vol] 7 ng/L <22 [facility] Troponin T.cardiac High sensitivity method [Mass/Vol] 8 ng/L <22 [facility] Type AND Screenon 07-21-2025 Ab SCREEN GEL Negative Normal [facility] Comment on above: Order Comment: A Performed By: #### L 500.4050, L100.0100 #### [facility] [address] [place], [address] Urinalysis, Completeon 07-21 BACTERIA 0 SEEN Normal None Seen [facility] Comment on above: Order Comment: CLEAN CATCH Performed By: #### L 501.080 #### [facility] [address] [place], [address] EPI,SQUAMOUS 0 SEEN Normal 0-5 [facility] Comment on above: Order Comment: CLEAN CATCH Performed By: #### L 501.080 #### [facility] [address] [place], [address] Mucus Ql (Urine sed) 0 SEEN Normal [facility] Comment on above: Order Comment: CLEAN CATCH Performed By: #### L 501.080 #### [facility] [address] [place], [address] RBC 0 SEEN Normal 0-5 [facility] Comment on above: Order Comment: CLEAN CATCH Performed By: #### L 501.080 #### [facility] [address] [place], [place], [address] WBC 0 SEEN Normal 0-5 [facility] Comment on above: Order Comment: CLEAN CATCH Performed By: #### L 501.080 #### [facility] [address] [place], [place], [address] Urine clarityOrdered By: Hilaria Leal on 07-21-2025 Clarity (U) Clear Clear [facility] Urine color determinationOrd ered By: Denice Leal on 07-21-2025 Color (U) Yellow Yellow [facility] Urine cultureOrdered By: Hilaria Leal on 07-21-2025 Bacteria identified Cx Nom (U) Streptococcus agalactiae (B) Abnormal [facility] Bacteria identified Cx Nom (U) Positive Abnormal [facility] Urine glucose detectionOrder ed By: Denice Leal on 07-21-2025 Glucose Ql (U) Normal mg/dl Normal [facility] Urine leukocyte esterase det ection by dipstickOrdered By: Denice Leal on 07-21-2025 Leukocyte esterase Test strip Ql (U) Negative Negative [facility] Urine pHOrdered By: Denice samano on 07-21-2025 pH (U) 6.5 [pH] 5.0 - 8.0 [facility] Urine sediment bacteria coun t by microscopy (number/high power field)Ordered By: Denice Leal on 07-21-2025 Bacteria LM.HPF (Urine sed) [#/Area] 0 /[HPF] None Seen [facility] Urine specific gravity measu rementOrdered By: Denice Leal on 07-21-2025 Specific gravity (U) [Rel density] 1.010 1.002-1.03 0 [facility] Urine urobilinogen measureme ntOrdered By: Denice Leal on 07-21-2025 Urobilinogen Ql (U) 4 mg/dl High Normal [facility] White blood cell (WBC) count Ordered By: Denice Leal on 07-21-2025 WBC (Bld) [#/Vol] 9.3 10*3/uL 4.4-11.0 [facility] White blood cell countOrdere d By: Denice Leal on 07-21-2025 White blood cell count 0 SEEN /hpf 0-5 [facility] D-Dimer Quantitative (DVT/PE )on 07-19-2025 D-DIMER QUANT 2.09 FEU/ug/m Invalid Interpretation Code 0.27-0.49 [facility] Comment on above: Result Comment: D-Di huber ELEVATED (>0.49): Additional studies and clinical assessments are indicated to conclude diagnosis of: Deep Vein Thrombosis (DVT) or Pulmonary Embolism (PE) CRITICAL VALUE CALLED TO NOLAN GILES 07/19/25 1632 Apolonia Bearden. RESULTS READ BACK BY SAME. Performed By: #### L 499.0043 #### [facility] [address] [place], [address] Venous Duplex US, Unilateral on 07-19-2025 Venous Duplex US, Unilateral [facility] [address] [place] [address] Venous Duplex US, Unilateral 07/19/25 1358 MR#: [id number] Acct: [id number] Name: LEON RIDER Rep #: [id number] : 1980 45 From: Kalia Mcmahan MD Attending Dr: Yusef Mccoy NP DIRECTOR OCCUPATIONAL-C Status: RE G CLI Ordering Dr: Yusef Mccoy NP DIRECTOR OCCUPATIONAL-C Date: 07/19/25 Location: [facility] Sex: M C [...] MD Date Dictated: 07/19/251357 Date Transcribed: 07/19/252238 Senior Mechanical Designer: Signed Normal [facility] Venous duplex ultrasound rep ortOrdered By: Kalia Mcmahan on 07-19-2025 US Vein [facility] [address] [place] [address] Venous Duplex US, Unilateral 07/19/25 1358 MR#: [id number] Acct: [id number] Name: LEON RIDER Rep #:[id number] : 1980 45 From: Kalia Mcmahan MD Attending Dr: Yusef Mccoy NP DIRECTOR OCCUPATIONAL-C Status: REG CLI Ordering Dr: Yusef Mccoy [...] Date Dictated: 07/19/25 1358 Date Transcribed: 07/19/252238 Senior Mechanical Designer: Signed [facility] Other Potassiumon 04-29-2025 Potassium [Moles/Vol] 4.1 mmol/L Normal 3.3-5.1 [facility] Comment on above: Order Comment: Order Date: 04/29/25Order Info: [id number] - K Performed By: #### L 499.0043 #### [facility] [place], [address] Potassium measurement (mass/ volume)Ordered By: Alis Duran on 04-29-2025 Potassium (Unsp spec) [Mass/Vol] 4.1 mmol/L 3.3-5.1 [facility] Surgery Visit Reporton 01-28 Surgery Visit Report [facility] [address] [place] [address] OFFICE VISIT Date of Service: 01/28/25 MR#: [id number] Acct: [id number] Name: LEON RIDER Rep #: [id number] : 1980 Provider: Dr. Lorie lim MD Age/Sex: 44/M Location: [facility] Status: Signed Intake Vital Signs 01/28/25 14:52 [...] ???Type Diltiazem 10mg/Lidocaine 50mg See Rx Instructions MO .BID #30 01/28/25 Rx Suppository 30 supp [...] QDAY 01/28/25 01/28/25 H istory tablet (Januvia) [facility] Medical History (Updated 01/30/25 @ 12:[address] Lorie Willson MD) HTN (hypertension) Diabetes Acid reflux Rectal bleeding Hemorrhoids Surgical History (Updated 01/28/25 @ 14:44 by Erma Spaulding LPN) H/O umbilical hernia repair [place] teeth extracted Social History (Updated 01/28/25 @ [...] did have a colonoscopy in 2021 in [facility] he may have had polyps at that time. Patient states he has bowel movements daily denies constipation. Does admit to staying on the toilet for prolonged periods of time. Patient did get axrb-ssp-ahjtfji treatment for hemorrhoids/fissures??? Dr. De Santiago's which [...] prolonged times (more content not included)... Normal [facility] BASIC METABOLIC PANELon 05-0 Anion gap [Moles/Vol] 7 mmol/L Normal 5-15 [facility] Comment on above: Order Comment: Locat ion: Performed By: #### L AB129, GYE949, RAG639, LAB15, LAB18, LAB20 #### LEON SLOAN ([id number]) [facility] ([facility]) [address] [place] [address] B/C RATIO 10.0 Normal 10.0-28.6 [facility] Comment on above: Order Comment: Locat ion: Performed By: #### L AB129, FHK587, BGD456, LAB15, LAB18, LAB20 #### LEON SLOAN ([id number]) [facility] ([facility]) [address] [address] Calcium [Mass/Vol] 7.9 mg/dL Low 8.7-10.4 [facility] Comment on above: Order Comment: Locat ion: Performed By: #### L AB129, RLG237, AVJ765, LAB15, LAB18, LAB20 #### LEON SLOAN ([id number]) [facility] ([facility]) [address] [address] Chloride [Moles/Vol] 106 mmol/L Normal 98-107 [facility] Comment on above: Order Comment: Locat ion: Performed By: #### L AB129, HOB041, UOL012, LAB15, LAB18, LAB20 #### LEON SLOAN ([id number]) [facility] ([facility]) [address] [address] CO2 [Moles/Vol] 27 mmol/L Normal 20-31 [facility] Comment on above: Order Comment: Locat ion: Performed By: #### L AB129, QRW547, ALE070, LAB15, LAB18, LAB20 #### LEON SLOAN ([id number]) [facility] ([facility]) [address] [address] Creatinine [Mass/Vol] 0.6 mg/dL Low 0.7-1.3 [facility] Comment on above: Order Comment: Locat ion: Performed By: #### L AB129, LDR051, RMC142, LAB15, LAB18, LAB20 #### LEON SLOAN ([id number]) [facility] ([facility]) [address] [address] GFR 121.3 mL/min/1.73m*2 Normal >=60.0 [facility] Comment on above: Order Comment: Locat ion: Performed By: #### L AB129, XLB121, KFK715, LAB15, LAB18, LAB20 ###Tom SLOAN ([id number]) [facility] ([facility]) [address] [address] Glucose [Mass/Vol] 136 mg/dL High 74-106 [facility] Comment on above: Order Comment: Locat ion: Performed By: #### L AB129, NJQ362, UYQ026, LAB15, LAB18, LAB20 #### LEON SLOAN ([id number]) [facility] ([facility]) [address] [address] Potassium [Moles/Vol] 3.6 mmol/L Normal 3.5-5.1 [facility] Comment on above: Order Comment: Locat ion: Performed By: #### L AB129, ZNJ537, GNC799, LAB15, LAB18, LAB20 #### LEON SLOAN ([id number]) [facility] ([facility]) [address] [facility] [address] [place] [address] Sodium [Moles/Vol] 140 mmol/L Normal 136-145 [facility] Comment on above: Order Comment: Locat ion: Performed By: #### L AB129, IAT062, EFH017, LAB15, LAB18, LAB20 #### LEON SLOAN ([id number]) [facility] ([facility]) [address] [address] Urea nitrogen [Mass/Vol] 6 mg/dL Low 9-23 [facility] Comment on above: Order Comment: Locat ion: Performed By: #### L AB129, XNX422, RJP907, LAB15, LAB18, LAB20 #### LEON SLOAN ([id number]) [facility] ([facility]) [address] [place] [address] CBC WITH AUTO DIFFERENTIALon 03-20-2024 BASO # 0.1 K CUMM Normal 0.0-0.2 [facility] Comment on above: Order Comment: Locat ion: Performed By: #### L VZ4061, [id number] #### LEON SLOAN ([id number]) [facility] ([facility]) [address] [address] Basophils/100 WBC (Bld) 1.8 % Normal 0.0-3.0 [facility] Comment on above: Order Comment: Locat ion: Performed By: #### L GI6537, [id number] #### LEON SLOAN ([id number]) [facility] ([facility]) [address] [facility] [address] [place] [address] Eosinophils (Bld) [#/Vol] 0.27 10*3/uL Normal 0.00-0.40 [facility] Comment on above: Order Comment: Locat ion: Performed By: #### L YK4136, IAC1573 #### LEON SLOAN ([id number]) [facility] ([facility]) [address] [place] [address] Eosinophils/100 WBC (Bld) 5.9 % Normal 0.0-7.0 [facility] Comment on above: Order Comment: Locat ion: Performed By: #### Kathleen CHING, [id number] #### LEON SLOAN ([id number]) [facility] ([facility]) [address] [place] [address] Erythrocyte distribution width (RBC) [Ratio] 18.3 % High 11.5-15.5 [facility] Comment on above: Order Comment: Locat ion: Performed By: #### Kathleen BERNSTEINIO9679, [id number] #### LEON SLOAN ([id number]) [facility] ([facility]) [address] [place] [address] Hematocrit (Bld) [Volume fraction] 34.2 % Low 42.0-52.0 [facility] Comment on above: Order Comment: Locat ion: Performed By: #### Kathleen [id number], [id number] #### LEON SLOAN ([id number]) [facility] ([facility]) [address] [place] [address] Hemoglobin (Bld) [Mass/Vol] 10.8 g/dL Low 13.5-18.0 [facility] Comment on above: Order Comment: Locat ion: Performed By: #### L [id number], [id number] #### LEON SLOAN ([id number]) [facility] ([facility]) [address] [place] [address] IMMGRN# 0.0 K CUMM Normal 0.0-0.3 [facility] Comment on above: Order Comment: Locat ion: Performed By: #### L AM5413, [id number] #### LEON SLOAN ([id number]) [facility] ([facility]) [address] [address] IMMGRN% 0.2 % Normal 0.0-3.0 [facility] Comment on above: Order Comment: Locat ion: Performed By: #### Kathleen BERNSTEINAT8634, [id number] #### LEON SLOAN ([id number]) [facility] ([facility]) [address] [address] LYMPH # 1.1 K CUMM Normal 0.7-4.5 [facility] Comment on above: Order Comment: Locat ion: Performed By: #### Kathleen BERNSTEINPQ9325, [id number] #### LEON SLOAN ([id number]) [facility] ([facility]) [address] [place] [address] Lymphocytes/100 WBC (Bld) 23.2 % Normal 14.0-46.0 [facility] Comment on above: Order Comment: Locat ion: Performed By: #### Kathleen CHING, [id number] #### LEON SLOAN ([id number]) [facility] ([facility]) [address] [place] [address] MCH (RBC) [Entitic mass] 27.8 pg Normal 27.0-31.0 [facility] Comment on above: Order Comment: Locat ion: Performed By: #### Kathleen BERNSTEINOZ5573, [id number] #### LEON SLOAN ([id number]) [facility] ([facility]) [address] [place] [address] MCHC (RBC) [Mass/Vol] 31.6 g/dL Low 32.0-36.0 [facility] Comment on above: Order Comment: Locat ion: Performed By: #### Kathleen BERNSTEINIY9737, [id number] #### LEON SLOAN ([id number]) [facility] ([facility]) [address] [place] [address] MCV (RBC) [Entitic vol] 87.9 fL Normal 78.0-100.0 [facility] Comment on above: Order Comment: Locat ion: Performed By: #### L [id number], [id number] #### LEON SLOAN ([id number]) [facility] ([facility]) [address] [address] MONO # 0.8 K CUMM Normal 0.1-1.0 [facility] Comment on above: Order Comment: Locat ion: Performed By: #### L ZV1548, [id number] #### LEON SLOAN ([id number]) [facility] ([facility]) [address] [place] [address] Monocytes/100 WBC (Bld) 16.6 % High 4.0-13.0 [facility] Comment on above: Order Comment: Locat ion: Performed By: #### Kathleen CHING, [id number] #### LEON SLOAN ([id number]) [facility] ([facility]) [address] [place] [address] ELISEO # 2.4 K CUMM Normal 1.8-7.8 [facility] Comment on above: Order Comment: Locat ion: Performed By: #### Kathleen BERNSTEINYB6675, [id number] #### LEON SLOAN ([id number]) [facility] ([facility]) [address] [place] [address] Neutrophils/100 WBC (Bld) 52.3 % Normal 40.0-74.0 [facility] Comment on above: Order Comment: Locat ion: Performed By: #### L [id number], [id number] #### LEON SLOAN ([id number]) [facility] ([facility]) [address] [place] [address] Nucleated RBC/100 WBC (Bld) [Ratio] 0.0 % Normal 0.0-0.9 [facility] Comment on above: Order Comment: Locat ion: Performed By: #### L [id number], [id number] #### LEON SLOAN ([id number]) [facility] ([facility]) [address] [place] [address] Platelet mean volume (Bld) [Entitic vol] 10.8 fL Normal 8.9-12.6 [facility] Comment on above: Order Comment: Locat ion: Performed By: #### Kathleen BERNSTEINHW3465, [id number] #### LEON SLOAN ([id number]) [facility] ([facility]) [address] [facility], [facility] [address] [place] [address] PLT 75 K CUMM Low 130-400 [facility] Comment on above: Order Comment: Locat ion: Performed By: #### Kathleen SINGH14, [id number] #### LEON SLOAN ([id number]) [facility] ([facility]) [address] [address] RBC 3.9 M CUMM Low 4.2-5.8 [facility] Comment on above: Order Comment: Locat ion: Performed By: #### Kathleen CHING, [id number] #### LEON SLOAN ([id number]) [facility] ([facility]) [address] [address] WBC 4.6 K CUMM Normal 3.8-10.6 [facility] Comment on above: Order Comment: Locat ion: Performed By: #### Kathelen CHING, [id number] #### LEON SLOAN ([id number]) [facility] ([facility]) [address] [address] HEPATIC PANELon 03-20-2024 Albumin [Mass/Vol] 2.8 g/dL Low 3.2-4.8 [facility] Comment on above: Order Comment: Locat ion: Performed By: #### L AB129, CXN839, ICZ279, LAB15, LAB18, LAB20 #### LEON SLOAN ([id number]) [facility] ([facility]) [address] [address] ALP [Catalytic activity/Vol] 146 U/L High 40-127 [facility] Comment on above: Order Comment: Locat ion: Performed By: #### L AB129, VEC348, CEP266, LAB15, LAB18, LAB20 #### LEON SLOAN ([id number]) [facility] ([facility]) [address] [facility], [address] [place] [address] ALT [Catalytic activity/Vol] 56 U/L High 10-49 [facility] Comment on above: Order Comment: Locat ion: Performed By: #### L AB129, TGR879, ASJ015, LAB15, LAB18, LAB20 #### LEON SLOAN ([id number]) [facility] ([facility]) [address] [facility], [address] [place] [address] AST [Catalytic activity/Vol] 68 U/L High <=34 [facility] Comment on above: Order Comment: Locat ion: Performed By: #### L AB129, TMY329, AUS639, LAB15, LAB18, LAB20 #### LEON SLOAN ([id number]) [facility] ([facility]) [address] [address] BILI (INDIRECT) 1.7 mg/dL High 0.0-1.1 [facility] Comment on above: Order Comment: Locat ion: Performed By: #### L AB129, WXF712, NIT827, LAB15, LAB18, LAB20 #### LEON SLOAN ([id number]) [facility] ([facility]) [address] [facility], [address] [address] Bilirubin [Mass/Vol] 3.0 mg/dL High 0.3-1.2 [facility] Comment on above: Order Comment: Locat ion: Performed By: #### L AB129, BNV606, DKW910, LAB15, LAB18, LAB20 #### LEON SLOAN ([id number]) [facility] ([facility]) [address] [facility], [address] [place] [address] Bilirubin.direct [Mass/Vol] 1.3 mg/dL High <=0.4 [facility] Comment on above: Order Comment: Locat ion: Performed By: #### L AB129, FWS823, KFB615, LAB15, LAB18, LAB20 #### LEON SLOAN ([id number]) [facility] ([facility]) [address] [address] Protein [Mass/Vol] 6.6 g/dL Normal 5.7-8.2 [facility] Comment on above: Order Comment: Locat ion: Performed By: #### L AB129, TIX794, IIO992, LAB15, LAB18, LAB20 #### LEON SLOAN ([id number]) [facility] ([facility]) [address] [address] [id number] 03-20-2024 HbA1c (Bld) [Mass fraction] 6.9 % High 0.0-5.6 [facility] Comment on above: Order Comment: Locat ion: Result Comment: Refe rence Interval: Normal: below 5.7% Prediabetes: 5.7% to 6.4% Diabetes: 6.5% or above Performed By: #### Kathleen AB90 #### LEON SLOAN ([id number]) [facility] ([facility]) [address] [place] [address] LIPID PANELon 03-20-2024 CHOL/HDL RATIO 5.0 High <=4.0 [facility] [facility] [place] [facility] Comment on above: Order Comment: Locat ion: Performed By: #### L AB129, XDW469, QEA447, LAB15, LAB18, LAB20 #### LEON SLOAN ([id number]) [facility] ([facility]) [address] [address] Cholesterol [Mass/Vol] 134 mg/dL Normal <=200 [facility] Comment on above: Order Comment: Locat ion: Result Comment: Low- risk levels (desirable) < 200 mg/dL Moderate-risk levels (borderline) 200 to 239 mg/dL High-risk levels > or = 240 mg/dL Performed By: #### L AB129, FNY505, LRB023, LAB15, LAB18, LAB20 #### LEON SLOAN ([id number]) [facility] ([facility]) [address] [address] Cholesterol in HDL [Mass/Vol] 27 mg/dL Low >60 [facility] Comment on above: Order Comment: Locat ion: Performed By: #### L AB129, IOH934, FLC842, LAB15, LAB18, LAB20 #### LEON SLOAN ([id number]) [facility] ([facility]) 400 [facility], [address] [address] Cholesterol in LDL [Mass/Vol] 84 mg/dL Normal <=130 [facility] Comment on above: Order Comment: Locat ion: Performed By: #### L AB129, RGK701, EXN337, LAB15, LAB18, LAB20 #### LEON SLOAN ([id number]) [facility] ([facility]) [address] [address] NON-HDL CHOL 107 Normal [facility] Comment on above: Order Comment: Locat ion: Result Comment: LDL and Non-HDL goal dependent upon individual risk Performed By: #### L AB129, KLH156, MKI649, LAB15, LAB18, LAB20 #### LEON SLOAN ([id number]) [facility] ([facility]) 400 [facility], [address] [address] Triglyceride [Mass/Vol] 114 mg/dL Normal <=150 C [facility] Comment on above: Order Comment: Locat ion: Performed By: #### L AB129, PXA038, ZGB531, LAB15, LAB18, LAB20 #### LEON SLOAN ([id number]) [facility] ([facility]) [address] [address] VLDL-CALC 22.8 mg/dl Normal 0-30 [facility] Comment on above: Order Comment: Locat ion: Performed By: #### L AB129, PQA722, IZC417, LAB15, LAB18, LAB20 #### LEON SLOAN ([id number]) [facility] ([facility]) [address] [address] MAGNESIUMon 03-20-2024 Magnesium [Mass/Vol] 1.7 mg/dL Normal 1.6-2.6 [facility] Comment on above: Order Comment: Locat ion: Performed By: #### L AB129, UNX814, ITA177, LAB15, LAB18, LAB20 #### LEON SLOAN ([id number]) [facility] ([facility]) 400 [facility], [address] [place] [address] PHOSPHORUSon 03-20-2024 Phosphate [Mass/Vol] 2.9 mg/dL Normal 2.4-5.1 [facility] Comment on above: Order Comment: Locat ion: Performed By: #### L AB129, ACE102, PZD815, LAB15, LAB18, LAB20 #### LEON SLOAN ([id number]) [facility] ([facility]) 400 [facility], [address] [address] SLIDE SCAN IF INDICATEDon COMMENT Normocytic/Normochromic Normal C [facility] Comment on above: Order Comment: Locat ion: Performed By: #### Kathleen [id number], [id number] #### LEON SLOAN ([id number]) [facility] ([facility]) 400 [facility], [address] [place] [address] PLATELET ESTIMATE Decreased Abnormal Adequate [facility] Comment on above: Order Comment: Locat ion: Performed By: #### L [id number], FSP8323 #### LEON SLOAN ([id number]) [facility] ([facility]) 400 [facility], [facility] [address] [place] [address] TSHon 03-20-2024 TSH 0.879 MIU/mL Normal 0.550-4.78 0 [facility] Comment on above: Order Comment: Locat ion: Performed By: #### L AB129, VPF133, EES066, LAB15, LAB18, LAB20 #### LEON SLOAN ([id number]) [facility] ([facility]) [address] [facility], [address] [place] [address] ABDOMEN PELVIS WO CONTRAS Ton 09-25-2023 [...] Self Edit Transcribed Date: 09/25/2023 02:[address] [facility] [address] Pelvis limited WO contras ton 09-25-2023 [...] By: Self Edit Transcribed Date: 09/25/2023 02:17 [employer] EXAMINATION TYPE: CT ABDOMEN PELVIS WO CONTRAST [...] are present in the lower lumbar spine. [employer] Tal Hadley M D - 09/25/2023 EXAMINATION [...] By: Self Edit Transcribed Date: 09/25/2023 02:17 [facility] Study observation (narrative) [facility] CT Pelvis limited WO contras tOrdered By: Tal Hadley on 09-25-2023 [facility] Work Phone: PT Coag (PPP) [Time]on 09-25 aPTT Coag (Bld) [Time] 34.7 s Normal 23.3-35.3 Mo [facility] Comment on above: Order Comment: The r ecommended therapeutic INR range for most cardiac indications is 2.0-3.0 For high intensity therapy (i.e. mechanical heart valves), the recommended range is 2.5-3.5 Performed By: #### 5 902-2 #### [facility] [address] [place] [address] INR Coag (PPP) [Relative time] 1.5 {INR} NINF - 5.0 [facility] Interpretation and review of laboratory results Abnormal [facility] PT Coag (Bld) [Time] 17.6 s High [facility] The recommended therapeutic INR range for most cardiac indications is 2.0-3.0 For high intensity therapy (i.e. mechanical heart valves), the recommended range is 2.5-3.5 [facility] aPTT Coag (Bld) [Time]on aPTT Coag (PPP) [Time] 34.7 s Tr [facility] Interpretation and review of laboratory results Normal [facility] Basic metabolic 2000 panelon 09-24-2023 Anion gap [Moles/Vol] 6 mmol/L Normal 6-18 [facility] Comment on above: Performed By: #### 2 4321-2 #### [facility] [address] [place] [address] Calcium [Mass/Vol] 9.3 mg/dL Normal 8.9-10.3 [facility] Comment on above: Performed By: #### 2 4321-2 #### [facility] [address] [place] [address] Chloride [Moles/Vol] 101 mmol/L Normal 98-107 [facility] Comment on above: Performed By: #### 2 4321-2 #### [facility] [address] [place] [address] CO2 [Moles/Vol] 27 mmol/L Normal 22-32 [facility] Comment on above: Performed By: #### 2 4321-2 #### [facility] [address] [place] [address] Creatinine [Mass/Vol] 0.64 mg/dL Normal 0.60-1.30 [facility] Comment on above: Performed By: #### 2 4321-2 #### [facility] [address] [place] [address] GFR/1.73 sq M.predicted among non-blacks MDRD (S/P/Bld) [Vol rate/Area] 119 mL/min/{1.73_m2} Normal >=60 [facility] Comment on above: Result Comment: Calc ulation based on the?Chronic Kidney Disease Epidemiology Collaboration (CKD-EPI) equation refit?without adjustment for race. Performed By: #### 2 4321-2 #### [facility] [address] [place] [address] Glucose [Mass/Vol] 178 mg/dL High 70-99 [facility] Comment on above: Performed By: #### 2 4321-2 #### [facility] [address] [place] [address] Potassium [Moles/Vol] 4.0 mmol/L Normal 3.6-5.1 [facility] Comment on above: Performed By: #### 2 4321-2 #### [facility] [address] [place] [address] Sodium [Moles/Vol] 134 mmol/L Low 136-145 [facility] Comment on above: Performed By: #### 2 4321-2 #### [facility] [address] [place] [address] Urea nitrogen [Mass/Vol] 8 mg/dL Normal 8-20 [facility] Comment on above: Performed By: #### 2 4321-2 #### [facility] [address] [place] [address] Urea nitrogen/Creatinine [Mass ratio] 12.5 mg/mg Normal 12.0-20.0 [facility] Comment on above: Performed By: #### 2 4321-2 #### [facility] [address] [place] [address] Anion gap [Moles/Vol] 6 mmol/L 6 - 18 [facility] Calcium [Mass/Vol] 9.3 mg/dL 8.9 - 10. 3 mg/dL [facility] Chloride [Moles/Vol] 101 mmol/L 98 - 10 7 mmol/L [facility] CO2 [Moles/Vol] 27 mmol/L 22 - 32 mmol/L [facility] Creatinine [Mass/Vol] 0.64 mg/dL 0.60 - 1.30 mg/dL [facility] GFR/1.73 sq M.predicted among non-blacks MDRD (S/P/Bld) [Vol rate/Area] 119 mL/min/{1.73_m2} - PINF [facility] Comment on above: Calculation based on the Chronic Kidney Disease Epidemiology Collaboration (CKD-EPI) equation refit without adjustment for race. Glucose [Mass/Vol] 178 mg/dL High 70 - 99 mg/dL [facility] Interpretation and review of laboratory results Abnormal [facility] Potassium [Moles/Vol] 4.0 mmol/L 3.6 - 5.1 mmol/L [facility] Sodium [Moles/Vol] 134 mmol/L Low 136 - 145 mmol/L [facility] Urea nitrogen [Mass/Vol] 8 mg/dL 8 - 20 mg/dL [facility] Urea nitrogen/Creatinine [Mass ratio] 12.5 mg/mg 12.0 - 20.0 [facility] Hemogram and platelets WO di fferential panel (Bld)on 09-24-2023 Basophils (Bld) [#/Vol] 0.07 10*3/uL Normal 0.00-0.20 [facility] Comment on above: Performed By: #### 2 4317-0 #### [facility] [address] [place] [address] Basophils/100 WBC (Bld) 1.6 % Normal 0.0-2.0 [facility] Comment on above: Performed By: #### 2 4317-0 #### [facility] [address] [place] [address] Eosinophils (Bld) [#/Vol] 0.23 10*3/uL Normal 0.00-0.70 [facility] Comment on above: Performed By: #### 2 4317-0 #### [facility] [address] [place] [address] Eosinophils/100 WBC (Bld) 5.4 % Normal 0.0-7.0 [facility] Comment on above: Performed By: #### 2 4317-0 #### [facility] [address] [place] [address] Erythrocyte distribution width (RBC) [Ratio] 18.4 % High 11.0-14.8 [facility] Comment on above: Performed By: #### 2 4317-0 #### [facility] [address] [place] [address] Hematocrit (Bld) [Volume fraction] 38.5 % Low 39.0-49.0 [facility] Comment on above: Performed By: #### 2 4317-0 #### [facility] [address] [place] [address] Hemoglobin (Bld) [Mass/Vol] 12.7 g/dL Low 13.5-17.5 [facility] Comment on above: Performed By: #### 2 4317-0 #### [facility] [address] [place] [address] Immature granulocytes (Bld) [#/Vol] 0.01 10*3/uL Normal 0.00-0.10 [facility] Comment on above: Performed By: #### 2 4317-0 #### [facility] [address] [place] [address] Immature granulocytes/100 WBC (Bld) 0.2 % Normal 0.0-1.2 [facility] Comment on above: Performed By: #### 2 4317-0 #### [facility] [address] [place] [address] Lymphocytes (Bld) [#/Vol] 1.14 10*3/uL Normal 1.00-4.80 [facility] Comment on above: Performed By: #### 2 4317-0 #### [facility] [address] [place] [address] Lymphocytes/100 WBC (Bld) 26.8 % Normal 17.9-49.6 [facility] Comment on above: Performed By: #### 2 4317-0 #### [facility] [address] [place] [address] MCH 28.9 pcg Normal 27.0-34.0 [facility] Comment on above: Performed By: #### 2 4317-0 #### [facility] [address] [place] [address] MCHC (RBC) [Mass/Vol] 33.0 g/dL Normal 30.8-35.3 [facility] Comment on above: Performed By: #### 2 4317-0 #### [facility] [address] [place] [address] MCV (RBC) [Entitic vol] 87.5 fL Normal 80.0-97.0 M [facility] Comment on above: Performed By: #### 2 4317-0 #### [facility] [address] [place] [address] Monocytes (Bld) [#/Vol] 0.73 10*3/uL Normal 0.00-0.90 [facility] Comment on above: Performed By: #### 2 4317-0 #### [facility] [address] [place] [address] Monocytes/100 WBC (Bld) 17.1 % Normal 4.0-23.0 M [facility] Comment on above: Performed By: #### 2 4317-0 #### [facility] [address] [place] [address] Neutrophils Absolute 2.08 K/mcL Normal 1.80-7.70 Moun t [facility] Comment on above: Performed By: #### 2 4317-0 #### [facility] [address] [place] [address] Neutrophils/100 WBC (Bld) 48.9 % Normal 38.1-75.5 [facility] Comment on above: Performed By: #### 2 4317-0 #### [facility] [address] [place] [address] Platelet mean volume (Bld) [Entitic vol] 11.0 fL Normal 6.2-12.1 [facility] Comment on above: Performed By: #### 2 4317-0 #### [facility] [address] [place] [address] Platelets (Bld) [#/Vol] 85 10*3/uL Low 142-424 M [facility] Comment on above: Result Comment: Resu lts confirmed by slide review. Performed By: #### 2 4317-0 #### [facility] [address] [place] [address] RBC (Bld) [#/Vol] 4.40 10*6/uL Normal 4.30-5.70 [facility] Comment on above: Performed By: #### 2 4317-0 #### [facility] [address] [place] [address] WBC (Bld) [#/Vol] 4.3 10*3/uL Low 4.6-10.2 [facility] Comment on above: Performed By: #### 2 4317-0 #### [facility] [address] [place] [address] Hemogram and platelets WO di fferential panel [...] Immature granulocytes (Bld) [#/Vol] 0.01 10*3/uL [facility] Immature granulocytes/100 WBC (Bld) 0.2 % 0.0 - 1.2 % [facility] Interpretation and review of laboratory results Abnormal [facility] Lymphocytes (Bld) [#/Vol] 1.14 10*3/uL [facility] Lymphocytes/100 WBC (Bld) 26.8 % 17.9 - 49.6 % [facility] MCH (RBC) [Entitic mass] 28.9 pg [facility] MCHC (RBC) [Mass/Vol] 33.0 g/dL 30.8 - 35.3 g/dL [facility] MCV (RBC) [Entitic vol] 87.5 fL [facility] Monocytes (Bld) [#/Vol] 0.73 10*3/uL [facility] Monocytes/100 WBC (Bld) 17.1 % 4.0 - 23.0 % [facility] Neutrophils (Bld) [#/Vol] 2.08 10*3/uL [facility] Neutrophils/100 WBC (Bld) 48.9 % 38.1 - 75.5 % [facility] Platelet mean volume (Bld) [Entitic vol] 11.0 fL [facility] th Platelets (Bld) [#/Vol] 85 10*3/uL [facility] Comment on above: Results confirmed by slide review. RBC (Bld) [#/Vol] 4.40 10*6/uL [facility] WBC (Bld) [#/Vol] 4.3 10*3/uL Low [facility] - Specimen inform ationon 09-24-2023 Specimen source Nom (Unsp spec) Hold for add-ons. [facility] Comment on above: Auto resulted. No Panel Informationon 09-24 [facility] Urinalysis dipstick W Reflex Microscopic panel (U)on 09-24-2023 Bacteria, Urine Rare Abnormal None [facility] Comment on above: Performed By: #### 5 7020-0 #### [facility] [address] [place] [address] Bilirubin, Urine Negative Normal Negative [facility] Comment on above: Performed By: #### 5 7020-0 #### [facility] [address] [place] [address] Blood, Urine 3+ Abnormal Negative, Trace [facility] Comment on above: Performed By: #### 5 20-0 #### [facility] [address] [place] [address] Clarity (U) Clear Normal Clear [facility] Comment on above: Performed By: #### 5 20-0 #### [facility] [address] [place] [address] Color (U) Colorless Abnormal Yellow [facility] Comment on above: Performed By: #### 5 20-0 #### [facility] [address] [place] [address] Glucose Ql (U) >1000 Abnormal Normal [facility] Comment on above: Performed By: #### 5 20-0 #### [facility] [address] [place] [address] Ketones Ql (U) Negative Normal Negative [facility] Comment on above: Performed By: #### 5 7019-0 #### [facility] [address] [place] [address] Leukocytes, Urine Negative Normal Negative [facility] Comment on above: Performed By: #### 5 20-0 #### [facility] [address] [place] [address] Nitrite, Urine Negative Normal Negative [facility] Comment on above: Performed By: #### 5 20-0 #### [facility] [address] [place] [address] pH (U) 6.5 [pH] Normal 5.0-8.0 [facility] Comment on above: Performed By: #### 5 20-0 #### [facility] [address] [place] [address] Protein, Urine Negative Normal Negative [facility] Comment on above: Performed By: #### 5 7020-0 #### [facility] [address] [place] [address] RBC LM.HPF (Urine sed) [#/Area] 247 /[HPF] High 0-5 [facility] Comment on above: Performed By: #### 5 7020-0 #### [facility] [address] [place] [address] Specific [place] Urine 1.010 Normal 1.002 -1.03 0 [facility] Comment on above: Performed By: #### 5 7020-0 #### [facility] [address] [place] [address] Urobilinogen, Urine Normal Normal Normal [facility] Comment on above: Performed By: #### 5 7020-0 #### [facility] [address] [place] [address] WBC LM.HPF (Urine sed) [#/Area] /[HPF] Normal 0-5 [facility] Comment on above: Performed By: #### 5 7020-0 #### [facility] [address] [place] [address] Bacteria LM.HPF (Urine sed) [#/Area] Rare Abnormal None /HPF [facility] Bilirubin Ql (U) Negative Negative mg/dL [facility] Clarity (U) Clear Clear [facility] Color (U) Colorless Abnormal Yellow [facility] Glucose Ql (U) >1000 Abnormal Normal mg/dL [facility] Hemoglobin Ql (U) 3+ Abnormal Negative, Trace [facility] Interpretation and review of laboratory results Abnormal [facility] Ketones (U) [Mass/Vol] Negative Negat fabricio mg/dL [facility] Leukocyte esterase Test strip Ql (U) Negative Negative WBCs/mcL [facility] Nitrite Ql (U) Negative Negative [facility] pH (U) 6.5 [pH] 5.0 - 8.0 pH [facility] Protein (U) [Mass/Vol] Negative Negat fabricio mg/dL [facility] RBC LM.HPF (Urine sed) [#/Area] 247 /[HPF] High [facility] Specific gravity (U) [Rel density] 1.010 1.002 - 1.030 [facility] Urobilinogen (U) [Mass/Vol] Normal Normal mg/dL [facility] WBC LM.HPF (Urine sed) [#/Area] [facility] Basic Metabolic Panel ([facility]) on 08-03-2023 Creatinine [Mass/Vol] 0.59 mg/dL Low 0.76-1.27 [facility] Comment on above: Order Comment: Testi ng performed at: [] [facility], [address] [place] [address], [phone], , Adjunct Nursing Faculty: Tres Cm, PhD Performed By: #### C 121, C301, C406, C4176, C116, C48, C8, C45, C400, C115 #### Refer to report for performing lab GFR/1.73 sq M.predicted among non-blacks MDRD (S/P/Bld) [Vol rate/Area] 122 mL/min/{1.73_m2} Invalid Interpretation Code >59 [facility] Comment on above: Order Comment: Testi ng performed at: [] [facility], [address] [place] [address], [phone], , Adjunct Nursing Faculty: Tres Cm, PhD Performed By: #### C 121, C301, C406, C4176, C116, C48, C8, C45, C400, C115 #### Refer to report for performing lab Urea nitrogen/Creatinine [Mass ratio] 15 mg/mg Invalid Interpretation Code 9-20 [facility] Comment on above: Order Comment: Testi ng performed at: [] [facility], [address] [place] [address], [phone], , Adjunct Nursing Faculty: Tres Cm, PhD Performed By: #### C 121, C301, C406, C4176, C116, C48, C8, C45, C400, C115 #### Refer to report for performing lab Potassium [Moles/Vol] 3.9 mmol/L Invalid Interpretation Code 3.5-5.2 [facility] Comment on above: Order Comment: Testi ng performed at: [] [facility], [address] [place] [address], [phone], , Adjunct Nursing Faculty: Tres Cm, PhD Performed By: #### C 121, C301, C406, C4176, C116, C48, C8, C45, C400, C115 #### Refer to report for performing lab Chloride [Moles/Vol] 101 mmol/L Invalid Interpretation Code 96-106 [facility] Comment on above: Order Comment: Testi ng performed at: [] [facility], [address] [place] [address], [phone], , Adjunct Nursing Faculty: Tres Cm, PhD Performed By: #### C 121, C301, C406, C4176, C116, C48, C8, C45, C400, C115 #### Refer to report for performing lab Sodium [Moles/Vol] 136 mmol/L Invalid Interpretation Code 134-144 [facility] Comment on above: Order Comment: Testi ng performed at: [] [facility], [address] [place] [address], [phone], , Adjunct Nursing Faculty: Tres Cm, PhD Performed By: #### C 121, C301, C406, C4176, C116, C48, C8, C45, C400, C115 #### Refer to report for performing lab Urea nitrogen [Mass/Vol] 9 mg/dL Invalid Interpretation Code 6-24 [facility] Comment on above: Order Comment: Testi ng performed at: [] [facility], [address] [place] [address], [phone], , Adjunct Nursing Faculty: Tres Cm, PhD Performed By: #### C 121, C301, C406, C4176, C116, C48, C8, C45, C400, C115 #### Refer to report for performing lab Calcium [Mass/Vol] 9.0 mg/dL Invalid Interpretation Code 8.7-10.2 [facility] Comment on above: Order Comment: Testi ng performed at: [] [facility], [address] [place] [address], [phone], , Adjunct Nursing Faculty: Tres Cm, PhD Performed By: #### C 121, C301, C406, C4176, C116, C48, C8, C45, C400, C115 #### Refer to report for performing lab CO2 [Moles/Vol] 22 mmol/L Invalid Interpretation Code [facility] Comment on above: Order Comment: Testi ng performed at: [] [facility], [address] [place] [address], [phone], , Adjunct Nursing Faculty: Tres Cm, PhD Performed By: #### C 121, C301, C406, C4176, C116, C48, C8, C45, C400, C115 #### Refer to report for performing lab Glucose [Mass/Vol] 98 mg/dL Invalid Interpretation Code 70-99 [facility] Comment on above: Order Comment: Testi ng performed at: [] [facility], [address] [place] [address], [phone], , Adjunct Nursing Faculty: Tres Cm, PhD Performed By: #### C 121, C301, C406, C4176, C116, C48, C8, C45, C400, C115 #### Refer to report for performing lab CBC with Diffon 08-03-2023 Basophils (Bld) [#/Vol] 0.1 10*3/uL Invalid Interpretation Code 0.0-0.2 [facility] Comment on above: Order Comment: Testi ng performed at: [] [facility], [address] [place] [address], [phone], , Adjunct Nursing Faculty: Tres Cm, PhD Performed By: #### C 121, C301, C406, C4176, C116, C48, C8, C45, C400, C115 #### Refer to report for performing lab Basophils/100 WBC (Bld) 2 % Invalid Interpretation Code Not Estab. [facility] Comment on above: Order Comment: Testi ng performed at: [] [facility], [address] [place] [address], [phone], , Adjunct Nursing Faculty: Tres Cm, PhD Performed By: #### C 121, C301, C406, C4176, C116, C48, C8, C45, C400, C115 #### Refer to report for performing lab Eosinophils (Bld) [#/Vol] 0.5 10*3/uL High 0.0-0.4 [facility] Comment on above: Order Comment: Testi ng performed at: [] [address], [address], , Adjunct Nursing Faculty: Tres Cm, PhD Performed By: #### C 121, C301, C406, C4176, C116, C48, C8, C45, C400, C115 #### Refer to report for performing lab Eosinophils/100 WBC (Bld) 10 % Invalid Interpretation Code Not Estab. [facility] Comment on above: Order Comment: Testi ng performed at: [] [facility], [address] [place] [address], [phone], , Adjunct Nursing Faculty: Tres Cm, PhD Performed By: #### C 121, C301, C406, C4176, C116, C48, C8, C45, C400, C115 #### Refer to report for performing lab Erythrocyte distribution width (RBC) [Ratio] 15.5 % High 11.6-15.4 [facility] Comment on above: Order Comment: Testi ng performed at: [] [facility], [address] [place] [address], [phone], , Adjunct Nursing Faculty: Tres Cm, PhD Performed By: #### C 121, C301, C406, C4176, C116, C48, C8, C45, C400, C115 #### Refer to report for performing lab Hematocrit (Bld) [Volume fraction] 36.2 % Low 37.5-51.0 [facility] Comment on above: Order Comment: Testi ng performed at: [] [address], [address], , Adjunct Nursing Faculty: Tres Cm, PhD Performed By: #### C 121, C301, C406, C4176, C116, C48, C8, C45, C400, C115 #### Refer to report for performing lab Hematology Comments: Note: Invalid Interpretation Code [facility] Comment on above: Order Comment: Testi ng performed at: [] [address], [address], , Adjunct Nursing Faculty: Tres Cm, PhD Result Comment: Veri fied by microscopic examination. A hand-written panel/profile was received from your office. In accordance with the [facility] Ambiguous Test Code Policy dated May 2003, we have assigned CBC with Differential/Platelet, Test Code #364818 to this request. If this is not [...] Order Comment: Testi ng performed at: [] [facility], [address] [place] [address], [address], , Adjunct Nursing Faculty: Tres Cm, PhD Performed By: #### C 121, C301, C406, C4176, C116, C48, C8, C45, C400, C115 #### Refer to report for performing lab Immature Grans (Abs) 0.0 x10E3/uL Invalid Interpretation Code 0.0-0.1 [facility] Comment on above: Order Comment: Testi ng performed at: [] [facility], [address] [place] [address], [address], , Adjunct Nursing Faculty: Tres Cm, PhD Performed By: #### C 121, C301, C406, C4176, C116, C48, C8, C45, C400, C115 #### Refer to report for performing lab Immature granulocytes/100 WBC (Bld) 0 % Invalid Interpretation Code Not Estab. [facility] Comment on above: Order Comment: Testi ng performed at: [] [facility], [address] [place] [address], [address], , Adjunct Nursing Faculty: Tres Cm, PhD Performed By: #### C 121, C301, C406, C4176, C116, C48, C8, C45, C400, C115 #### Refer to report for performing lab Lymphocytes (Bld) [#/Vol] 1.1 10*3/uL Invalid Interpretation Code 0.7-3.1 [facility] Comment on above: Order Comment: Testi ng performed at: [] [facility], [address] [place] [address], [address], , Adjunct Nursing Faculty: Tres Cm, PhD Performed By: #### C 121, C301, C406, C4176, C116, C48, C8, C45, C400, C115 #### Refer to report for performing lab Lymphocytes/100 WBC (Bld) 23 % Invalid Interpretation Code Not Estab. [facility] Comment on above: Order Comment: Testi ng performed at: [] [facility], [address] [place] [address], [address], , Adjunct Nursing Faculty: Tres Cm, PhD Performed By: #### C 121, C301, C406, C4176, C116, C48, C8, C45, C400, C115 #### Refer to report for performing lab MCH (RBC) [Entitic mass] 27.8 pg Invalid Interpretation Code 26.6-33.0 [facility] Comment on above: Order Comment: Testi ng performed at: [] [address], [address], , Adjunct Nursing Faculty: Tres Cm, PhD Performed By: #### C 121, C301, C406, C4176, C116, C48, C8, C45, C400, C115 #### Refer to report for performing lab MCHC (RBC) [Mass/Vol] 32.6 g/dL Invalid Interpretation Code 31.5-35.7 [facility] Comment on above: Order Comment: Testi ng performed at: [] [address], [address], , Adjunct Nursing Faculty: Tres Cm, PhD Performed By: #### C 121, C301, C406, C4176, C116, C48, C8, C45, C400, C115 #### Refer to report for performing lab MCV (RBC) [Entitic vol] 85 fL Invalid Interpretation Code 79-97 [facility] Comment on above: Order Comment: Testi ng performed at: [] [address], [address], , Adjunct Nursing Faculty: Tres Cm, PhD Performed By: #### C 121, C301, C406, C4176, C116, C48, C8, C45, C400, C115 #### Refer to report for performing lab Monocytes (Bld) [#/Vol] 0.7 10*3/uL Invalid Interpretation Code 0.1-0.9 [facility] Comment on above: Order Comment: Testi ng performed at: [] [facility], [address] [place] [address], [address], , Adjunct Nursing Faculty: Tres Cm, PhD Performed By: #### C 121, C301, C406, C4176, C116, C48, C8, C45, C400, C115 #### Refer to report for performing lab Monocytes/100 WBC (Bld) 15 % Invalid Interpretation Code Not Estab. [facility] Comment on above: Order Comment: Testi ng performed at: [] [facility], [address] [place] [address], [address], , Adjunct Nursing Faculty: Tres Cm, PhD Performed By: #### C 121, C301, C406, C4176, C116, C48, C8, C45, C400, C115 #### Refer to report for performing lab Neutrophils (Absolute) 2.4 x10E3/uL Invalid Interpretation Code 1.4-7.0 [facility] Comment on above: Order Comment: Testi ng performed at: [] [facility], [address], , Adjunct Nursing Faculty: Tres Cm, PhD Performed By: #### C 121, C301, C406, C4176, C116, C48, C8, C45, C400, C115 #### Refer to report for performing lab Neutrophils/100 WBC (Bld) 50 % Invalid Interpretation Code Not Estab. [facility] Comment on above: Order Comment: Testi ng performed at: [] [facility], [address] [place] [address], [address], , Adjunct Nursing Faculty: Tres Cm, PhD Performed By: #### C 121, C301, C406, C4176, C116, C48, C8, C45, C400, C115 #### Refer to report for performing lab Platelets (Bld) [#/Vol] 83 10*3/uL Critically low 150-450 [facility] Comment on above: Order Comment: Testi ng performed at: [] [facility], [address] [place] [address], [address], , Adjunct Nursing Faculty: Tres Cm, PhD Result Comment: Plat elet count verified by examination of peripheral blood smear. Performed By: #### C 121, C301, C406, C4176, C116, C48, C8, C45, C400, C115 #### Refer to report for performing lab RBC (Bld) [#/Vol] 4.25 10*6/uL Invalid Interpretation Code 4.14-5.80 [facility] Comment on above: Order Comment: Testi ng performed at: [] [facility], [address] [place] [address], [address], , Adjunct Nursing Faculty: Tres Cm, PhD Performed By: #### C 121, C301, C406, C4176, C116, C48, C8, C45, C400, C115 #### Refer to report for performing lab WBC (Bld) [#/Vol] 4.8 10*3/uL Invalid Interpretation Code 3.4-10.8 [facility] Comment on above: Order Comment: Testi ng performed at: [] [facility], [address] [place] [address], [address], , Adjunct Nursing Faculty: Tres Cm, PhD Performed By: #### C 121, C301, C406, C4176, C116, C48, C8, C45, C400, C115 #### Refer to report for performing lab Hepatic Panel (COPC)on 08-03 Bilirubin.indirect [Mass/Vol] 0.67 mg/dL High 0.00-0.40 [facility] Comment on above: Order Comment: Testi ng performed at: [] [facility], [address] [place] [address], [address], , Adjunct Nursing Faculty: Tres Cm, PhD Performed By: #### C 121, C301, C406, C4176, C116, C48, C8, C45, C400, C115 #### Refer to report for performing lab ALT [Catalytic activity/Vol] 39 U/L Invalid Interpretation Code 0-44 [facility] Comment on above: Order Comment: Testi ng performed at: [] [address], [address], , Adjunct Nursing Faculty: Tres Cm, PhD Performed By: #### C 121, C301, C406, C4176, C116, C48, C8, C45, C400, C115 #### Refer to report for performing lab AST [Catalytic activity/Vol] 66 U/L High 0-40 [facility] Comment on above: Order Comment: Testi ng performed at: [] [address], [address], , Adjunct Nursing Faculty: Tres Cm, PhD Performed By: #### C 121, C301, C406, C4176, C116, C48, C8, C45, C400, C115 #### Refer to report for performing lab Albumin [Mass/Vol] 3.0 g/dL Low 4.1-5.1 [facility] Comment on above: Order Comment: Testi ng performed at: [] [facility], [address] [place] [address], [address], , Adjunct Nursing Faculty: Tres Cm, PhD Performed By: #### C 121, C301, C406, C4176, C116, C48, C8, C45, C400, C115 #### Refer to report for performing lab ALP [Catalytic activity/Vol] 143 U/L High 44-121 [facility] Comment on above: Order Comment: Testi ng performed at: [] [facility], [address] [place] [address], [address], , Adjunct Nursing Faculty: Tres Cm, PhD Performed By: #### C 121, C301, C406, C4176, C116, C48, C8, C45, C400, C115 #### Refer to report for performing lab Bilirubin [Mass/Vol] 1.8 mg/dL High 0.0-1.2 [facility] Comment on above: Order Comment: Testi ng performed at: [] [facility], [address] [place] [address], [address], , Adjunct Nursing Faculty: Tres Cm, PhD Performed By: #### C 121, C301, C406, C4176, C116, C48, C8, C45, C400, C115 #### Refer to report for performing lab Protein [Mass/Vol] 7.0 g/dL Invalid Interpretation Code 6.0-8.5 [facility] Comment on above: Order Comment: Testi ng performed at: [] [facility], [address] [place] [address], [address], , Adjunct Nursing Faculty: Tres Cm, PhD Performed By: #### C 121, C301, C406, C4176, C116, C48, C8, C45, C400, C115 #### Refer to report for performing lab HgbA1C (COPC)on 08-03-2023 HbA1c (Bld) [Mass fraction] 6.6 % High 4.8-5.6 [facility] Comment on above: Order Comment: Testi ng performed at: [] [facility], [address] [place] [address], [address], , Adjunct Nursing Faculty: Tres Cm, PhD Result Comment: Pred iabetes: [...] Testi ng performed at: [] [facility], [address] [place] [address], [address], , Adjunct Nursing Faculty: Tres Cm, PhD Performed By: #### C 121, C301, C406, C4176, C116, C48, C8, C45, C400, C115 #### Refer to report for performing lab LDL Chol Calc (NIH) 120 mg/dL High 0-99 [facility] Comment on above: Order Comment: Testi ng performed at: [] [facility], [address] [place] [address], [address], , Adjunct Nursing Faculty: Tres Cm, PhD Performed By: #### C 121, C301, C406, C4176, C116, C48, C8, C45, C400, C115 #### Refer to report for performing lab VLDL Cholesterol Elliott 29 mg/dL Invalid Interpretation Code 5-40 [facility] Comment on above: Order Comment: Testi ng performed at: [] [facility], [address] [place] [address], [address], , Adjunct Nursing Faculty: Tres Cm, PhD Performed By: #### C 121, C301, C406, C4176, C116, C48, C8, C45, C400, C115 #### Refer to report for performing lab Cholesterol [Mass/Vol] 186 mg/dL Invalid Interpretation Code 100-199 [facility] Comment on above: Order Comment: Testi ng performed at: [] [facility], [address] [place] [address], [address], , Adjunct Nursing Faculty: Tres Cm, PhD Performed By: #### C 121, C301, C406, C4176, C116, C48, C8, C45, C400, C115 #### Refer to report for performing lab Triglyceride [Mass/Vol] 164 mg/dL High 0-149 [facility] Comment on above: Order Comment: Testi ng performed at: [] [facility], [address] [place] [address], [address], , Adjunct Nursing Faculty: Tres Cm, PhD Performed By: #### C 121, C301, C406, C4176, C116, C48, C8, C45, C400, C115 #### Refer to report for performing lab Magnesium (COPC)on 3 Magnesium [Mass/Vol] 1.9 mg/dL Invalid Interpretation Code 1.6-2.3 [facility] Comment on above: Order Comment: Testi ng performed at: [] [facility], [address] [place] [address], [address], , Adjunct Nursing Faculty: Tres Cm, PhD Performed By: #### C 121, C301, C406, C4176, C116, C48, C8, C45, C400, C115 #### Refer to report for performing lab Phosphorus (COPC)on 08-03-20 23 Phosphate [Mass/Vol] 3.4 mg/dL Invalid Interpretation Code 2.8-4.1 [facility] Comment on above: Order Comment: Testi ng performed at: [] [facility], [address] [place] [address], [address], , Adjunct Nursing Faculty: Tres Cm, PhD Performed By: #### C 121, C301, C406, C4176, C116, C48, C8, C45, C400, C115 #### Refer to report for performing lab TSH (COPC)on 08-03-2023 TSH 1.580 uIU/mL Invalid Interpretation Code 0.450-4.50 0 [facility] Comment on above: Order Comment: Testi ng performed at: [] [facility], [address] [place], [address], , Adjunct Nursing Faculty: Tres Cm, PhD Performed By: #### C 121, C301, C406, C4176, C116, C48, C8, C45, C400, C115 #### Refer to report for performing lab Uric Acid (COPC)on 3 Urate [Mass/Vol] 3.7 mg/dL Low 3.8-8.4 [facility] Comment on above: Order Comment: Testi ng performed at: [] [facility], [address] [place] [address], [address], , Adjunct Nursing Faculty: Tres Cm, PhD Result Comment: Ther apeutic target for gout patients: <6.0 Performed By: #### C 121, C301, C406, C4176, C116, C48, C8, C45, C400, C115 #### Refer to report for performing lab Urinalysis and Microscopic w / Rfx to Cx ([facility])on 08-03-2023 Bacteria None seen Invalid Interpretation Code None seen/Few [facility] Comment on above: Order Comment: Testi ng performed at: [] [facility], [address] [place] [address], [address], , Adjunct Nursing Faculty: Tres Cm, PhD Performed By: #### C 121, C301, C406, C4176, C116, C48, C8, C45, C400, C115 #### Refer to report for performing lab Casts None seen Invalid Interpretation Code None seen [facility] Comment on above: Order Comment: Testi ng performed at: [] [facility], [address] [place] [address], [address], , Adjunct Nursing Faculty: Tres Cm, PhD Performed By: #### C 121, C301, C406, C4176, C116, C48, C8, C45, C400, C115 #### Refer to report for performing lab Epithelial cells LM Ql (Urine sed) None seen Invalid Interpretation Code 0 - 10 [facility] Comment on above: Order Comment: Testi ng performed at: [] [facility], [address] [place] [address], [address], , Adjunct Nursing Faculty: Tres Cm, PhD Performed By: #### C 121, C301, C406, C4176, C116, C48, C8, C45, C400, C115 #### Refer to report for performing lab RBC 0-2 Invalid Interpretation Code 0 - 2 [facility] Comment on above: Order Comment: Testi ng performed at: [] [facility], [address] [place] [address], [address], , Adjunct Nursing Faculty: Tres Cm, PhD Performed By: #### C 121, C301, C406, C4176, C116, C48, C8, C45, C400, C115 #### Refer to report for performing lab WBC None seen Invalid Interpretation Code 0 - 5 [facility] Comment on above: Order Comment: Testi ng performed at: [] [facility], [address] [place] [address], [address], , Adjunct Nursing Faculty: Tres Cm, PhD Performed By: #### C 121, C301, C406, C4176, C116, C48, C8, C45, C400, C115 #### Refer to report for performing lab Appearance (U) Clear Invalid Interpretation Code Clear [facility] Comment on above: Order Comment: Testi ng performed at: [] [facility], [address] [place] [address], [address], , Adjunct Nursing Faculty: Tres mC, PhD Performed By: #### C 121, C301, C406, C4176, C116, C48, C8, C45, C400, C115 #### Refer to report for performing lab Bilirubin Ql (U) Negative Invalid Interpretation Code Negative [facility] Comment on above: Order Comment: Testi ng performed at: [] [facility], [address] [place] [address], [address], , Adjunct Nursing Faculty: Tres Cm, PhD Performed By: #### C 121, C301, C406, C4176, C116, C48, C8, C45, C400, C115 #### Refer to report for performing lab Color (U) Yellow Invalid Interpretation Code Yellow [facility] Comment on above: Order Comment: Testi ng performed at: [] [facility], [address] [place] [address], [address], , Adjunct Nursing Faculty: Tres Cm, PhD Performed By: #### C 121, C301, C406, C4176, C116, C48, C8, C45, C400, C115 #### Refer to report for performing lab Glucose Ql (U) 3+ Abnormal Negative [facility] Comment on above: Order Comment: Testi ng performed at: [] [facility], [address] [place] [address], [address], , Adjunct Nursing Faculty: Tres Cm, PhD Performed By: #### C 121, C301, C406, C4176, C116, C48, C8, C45, C400, C115 #### Refer to report for performing lab Ketones Ql (U) Negative Invalid Interpretation Code Negative [facility] Comment on above: Order Comment: Testi ng performed at: [] [facility], [address] [place] [address], [address], , Adjunct Nursing Faculty: Tres Cm, PhD Performed By: #### C 121, C301, C406, C4176, C116, C48, C8, C45, C400, C115 #### Refer to report for performing lab Microscopic Examination See below: Invalid Interpretation Code [facility] Comment on above: Order Comment: Testi ng performed at: [] [facility], [address] [place] [address], [address], , Adjunct Nursing Faculty: Tres Cm, PhD Result Comment: Micr oscopic was indicated and was performed. Performed By: #### C 121, C301, C406, C4176, C116, C48, C8, C45, C400, C115 #### Refer to report for performing lab Nitrite, Urine Negative Invalid Interpretation Code Negative [facility] Comment on above: Order Comment: Testi ng performed at: [] [facility], [address] [place] [address], [address], , Adjunct Nursing Faculty: Tres Cm, PhD Performed By: #### C 121, C301, C406, C4176, C116, C48, C8, C45, C400, C115 #### Refer to report for performing lab Occult Blood Negative Invalid Interpretation Code Negative [facility] Comment on above: Order Comment: Testi ng performed at: [] [facility], [address] [place] [address], [address], , Adjunct Nursing Faculty: Tres Cm, PhD Performed By: #### C 121, C301, C406, C4176, C116, C48, C8, C45, C400, C115 #### Refer to report for performing lab pH (U) 6.5 [pH] Invalid Interpretation Code 5.0-7.5 [facility] Comment on above: Order Comment: Testi ng performed at: [] [facility], [address] [place] [address], [address], , Adjunct Nursing Faculty: Tres Cm, PhD Performed By: #### C 121, C301, C406, C4176, C116, C48, C8, C45, C400, C115 #### Refer to report for performing lab Protein Ql (U) Negative Invalid Interpretation Code Negative/T race [facility] Comment on above: Order Comment: Testi ng performed at: [] [facility], [address] [place] [address], [address], , Adjunct Nursing Faculty: Tres Cm, PhD Performed By: #### C 121, C301, C406, C4176, C116, C48, C8, C45, C400, C115 #### Refer to report for performing lab Specific gravity (U) [Rel density] 1.013 Invalid Interpretation Code 1.005-1.03 0 [facility] Comment on above: Order Comment: Testi ng performed at: [] [facility], [address] [place], [address], , Adjunct Nursing Faculty: Tres Cm, PhD Performed By: #### C 121, C301, C406, C4176, C116, C48, C8, C45, C400, C115 #### Refer to report for performing lab Urobilinogen,Semi-Qn 0.2 mg/dL Invalid Interpretation Code 0.2-1.0 [facility] Comment on above: Order Comment: Testi ng performed at: [] [facility], [address] [place], [address], , Adjunct Nursing Faculty: Tres Cm, PhD Performed By: #### C 121, C301, C406, C4176, C116, C48, C8, C45, C400, C115 #### Refer to report for performing lab WBC Esterase Negative Invalid Interpretation Code Negative [facility] Comment on above: Order Comment: Testi ng performed at: [] [facility], [address] [place], [address], , Adjunct Nursing Faculty: Tres Cm, PhD Performed By: #### C 121, C301, C406, C4176, C116, C48, C8, C45, C400, C115 #### Refer to report for performing lab Urinalysis and Microscopic w / Rfx to Cx ([facility])on 08-02-2023 Microscopic Examination Comment Normal [facility] Comment on above: Order Comment: Testi ng performed at: [] [facility], [address] [facility], [place], [address], , Adjunct Nursing Faculty: Tres Cm, PhD Result Comment: Micr oscopic follows if indicated. Performed By: #### C 121, C301, C406, C4176, C116, C48, C8, C45, C400, C115 #### Refer to report for performing lab Urinalysis Reflex Comment Normal [facility] Comment on above: Order Comment: [facility]i ng performed at: [] [facility], [address] [facility], [place], [address], , Adjunct Nursing Faculty: Tres Cm, PhD Result Comment: This specimen will not reflex to a Urine Culture. Performed By: #### C 121, C301, C406, C4176, C116, C48, C8, C45, C400, C115 #### Refer to report for performing lab Basic Metabolic Panel (COPC) on 04-05-2023 Creatinine [Mass/Vol] 0.65 mg/dL Low 0.76-1.27 [facility] Comment on above: Order Comment: Testi ng performed at: [] [facility], [address] [place] [address], [address], , Adjunct Nursing Faculty: Tres Cm, PhD Performed By: #### C 121, C301, C406, C4176, C116, C48, C8, C45, C400, C115 #### Refer to report for performing lab GFR/1.73 sq M.predicted among non-blacks MDRD (S/P/Bld) [Vol rate/Area] 119 mL/min/{1.73_m2} Invalid Interpretation Code >59 [facility] Comment on above: Order Comment: Testi ng performed at: [] [facility], [address] [place], [address], , Adjunct Nursing Faculty: Tres Cm, PhD Performed By: #### C 121, C301, C406, C4176, C116, C48, C8, C45, C400, C115 #### Refer to report for performing lab Urea nitrogen/Creatinine [Mass ratio] 9 mg/mg Invalid Interpretation Code 9-20 [facility] Comment on above: Order Comment: Testi ng performed at: [] [facility], [address] [place], [address], , Adjunct Nursing Faculty: Tres Cm, PhD Performed By: #### C 121, C301, C406, C4176, C116, C48, C8, C45, C400, C115 #### Refer to report for performing lab Calcium [Mass/Vol] 8.6 mg/dL Low 8.7-10.2 [facility] Comment on above: Order Comment: Testi ng performed at: [] [facility], [address] [place] [address], [address], , Adjunct Nursing Faculty: Tres Cm, PhD Performed By: #### C 121, C301, C406, C4176, C116, C48, C8, C45, C400, C115 #### Refer to report for performing lab CO2 [Moles/Vol] 25 mmol/L Invalid Interpretation Code [facility] Comment on above: Order Comment: Testi ng performed at: [] [facility], [address] [place] [address], [address], , Adjunct Nursing Faculty: Tres Cm, PhD Performed By: #### C 121, C301, C406, C4176, C116, C48, C8, C45, C400, C115 #### Refer to report for performing lab Urea nitrogen [Mass/Vol] 6 mg/dL Invalid Interpretation Code 05-07 [facility] Comment on above: Order Comment: Testi ng performed at: [] [facility], [address] [place] [address], [address], , Adjunct Nursing Faculty: Tres Cm, PhD Performed By: #### C 121, C301, C406, C4176, C116, C48, C8, C45, C400, C115 #### Refer to report for performing lab Glucose [Mass/Vol] 107 mg/dL High 70-99 [facility] Comment on above: Order Comment: Testi ng performed at: [] [facility], [address] [place] [address], [address], , Adjunct Nursing Faculty: Tres Cm, PhD Performed By: #### C 121, C301, C406, C4176, C116, C48, C8, C45, C400, C115 #### Refer to report for performing lab Potassium [Moles/Vol] 3.9 mmol/L Invalid Interpretation Code 3.5-5.2 [facility] Comment on above: Order Comment: Testi ng performed at: [] [facility], [address] [place] [address], [address], , Adjunct Nursing Faculty: Tres Cm, PhD Performed By: #### C 121, C301, C406, C4176, C116, C48, C8, C45, C400, C115 #### Refer to report for performing lab Chloride [Moles/Vol] 102 mmol/L Invalid Interpretation Code 96-106 [facility] Comment on above: Order Comment: Testi ng performed at: [] [facility], [address] [place] [address], [address], , Adjunct Nursing Faculty: Tres Cm, PhD Performed By: #### C 121, C301, C406, C4176, C116, C48, C8, C45, C400, C115 #### Refer to report for performing lab Sodium [Moles/Vol] 137 mmol/L Invalid Interpretation Code 134-144 [facility] Comment on above: Order Comment: Testi ng performed at: [] [facility], [address] [place] [address], [address], , Adjunct Nursing Faculty: Tres Cm, PhD Performed By: #### C 121, C301, C406, C4176, C116, C48, C8, C45, C400, C115 #### Refer to report for performing lab CBC with differential (COPC) on 04-05-2023 Basophils (Bld) [#/Vol] 0.1 10*3/uL Invalid Interpretation Code 0.0-0.2 [facility] Comment on above: Order Comment: Testi ng performed at: [] [facility], [address], , Adjunct Nursing Faculty: Tres Cm, PhD Performed By: #### C 121, C301, C406, C4176, C116, C48, C8, C45, C400, C115 #### Refer to report for performing lab Basophils/100 WBC (Bld) 1 % Invalid Interpretation Code Not Estab. [facility] Comment on above: Order Comment: Testi ng performed at: [] [facility], [address] [place] [address], [address], , Adjunct Nursing Faculty: Tres Cm, PhD Performed By: #### C 121, C301, C406, C4176, C116, C48, C8, C45, C400, C115 #### Refer to report for performing lab Eosinophils (Bld) [#/Vol] 0.4 10*3/uL Invalid Interpretation Code 0.0-0.4 [facility] Comment on above: Order Comment: Testi ng performed at: [] [facility], [address] [place] [address], [address], , Adjunct Nursing Faculty: Tres Cm, PhD Performed By: #### C 121, C301, C406, C4176, C116, C48, C8, C45, C400, C115 #### Refer to report for performing lab Eosinophils/100 WBC (Bld) 9 % Invalid Interpretation Code Not Estab. [facility] Comment on above: Order Comment: Testi ng performed at: [] [facility], [address] [place] [address], [address], , Adjunct Nursing Faculty: Tres Cm, PhD Performed By: #### C 121, C301, C406, C4176, C116, C48, C8, C45, C400, C115 #### Refer to report for performing lab Erythrocyte distribution width (RBC) [Ratio] 16.6 % High 11.6-15.4 [facility] Comment on above: Order Comment: Testi ng performed at: [] [facility], [address] [place] [address], [address], , Adjunct Nursing Faculty: Tres Cm, PhD Performed By: #### C 121, C301, C406, C4176, C116, C48, C8, C45, C400, C115 #### Refer to report for performing lab Hematocrit (Bld) [Volume fraction] 38.0 % Invalid Interpretation Code 37.5-51.0 [facility] Comment on above: Order Comment: Testi ng performed at: [] [facility], [address] [place] [address], [address], , Adjunct Nursing Faculty: Tres Cm, PhD Performed By: #### C 121, C301, C406, C4176, C116, C48, C8, C45, C400, C115 #### Refer to report for performing lab Hematology Comments: Note: Invalid Interpretation Code [facility] Comment on above: Order Comment: Testi ng performed at: [] [facility], [address] [place] [address], [address], , Adjunct Nursing Faculty: Tres Cm, PhD Result Comment: Veri fied by microscopic examination. Performed By: #### C 121, C301, C406, C4176, C116, C48, C8, C45, C400, C115 #### Refer to report for performing lab Hemoglobin (Bld) [Mass/Vol] 12.8 g/dL Low 13.0-17.7 [facility] Comment on above: Order Comment: Testi ng performed at: [] [facility], [address] [place] [address], [address], , Adjunct Nursing Faculty: Tres Cm, PhD Performed By: #### C 121, C301, C406, C4176, C116, C48, C8, C45, C400, C115 #### Refer to report for performing lab Immature Grans (Abs) 0.0 x10E3/uL Invalid Interpretation Code 0.0-0.1 [facility] Comment on above: Order Comment: Testi ng performed at: [] [facility], [address] [place] [address], [phone], , Adjunct Nursing Faculty: Tres Cm, PhD Performed By: #### C 121, C301, C406, C4176, C116, C48, C8, C45, C400, C115 #### Refer to report for performing lab Immature granulocytes/100 WBC (Bld) 0 % Invalid Interpretation Code Not Estab. [facility] Comment on above: Order Comment: Testi ng performed at: [] [facility], [address] [place] [address], [address], , Adjunct Nursing Faculty: Tres Cm, PhD Performed By: #### C 121, C301, C406, C4176, C116, C48, C8, C45, C400, C115 #### Refer to report for performing lab Lymphocytes (Bld) [#/Vol] 1.1 10*3/uL Invalid Interpretation Code 0.7-3.1 [facility] Comment on above: Order Comment: Testi ng performed at: [] [facility], [address] [place] [address], [address], , Adjunct Nursing Faculty: Tres Cm, PhD Performed By: #### C 121, C301, C406, C4176, C116, C48, C8, C45, C400, C115 #### Refer to report for performing lab Lymphocytes/100 WBC (Bld) 24 % Invalid Interpretation Code Not Estab. [facility] Comment on above: Order Comment: Testi ng performed at: [] [facility], [address] [place] [address], [address], , Adjunct Nursing Faculty: Tres Cm, PhD Performed By: #### C 121, C301, C406, C4176, C116, C48, C8, C45, C400, C115 #### Refer to report for performing lab MCH (RBC) [Entitic mass] 28.6 pg Invalid Interpretation Code 26.6-33.0 [facility] Comment on above: Order Comment: Testi ng performed at: [] [address], [address], , Adjunct Nursing Faculty: Tres Cm, PhD Performed By: #### C 121, C301, C406, C4176, C116, C48, C8, C45, C400, C115 #### Refer to report for performing lab MCHC (RBC) [Mass/Vol] 33.7 g/dL Invalid Interpretation Code 31.5-35.7 [facility] Comment on above: Order Comment: Testi ng performed at: [] [facility], [address] [place] [address], [address], , Adjunct Nursing Faculty: Tres Cm, PhD Performed By: #### C 121, C301, C406, C4176, C116, C48, C8, C45, C400, C115 #### Refer to report for performing lab MCV (RBC) [Entitic vol] 85 fL Invalid Interpretation Code 79-97 [facility] Comment on above: Order Comment: Testi ng performed at: [] [facility], [address] [place] [address], [address], , Adjunct Nursing Faculty: Tres Cm, PhD Performed By: #### C 121, C301, C406, C4176, C116, C48, C8, C45, C400, C115 #### Refer to report for performing lab Monocytes (Bld) [#/Vol] 0.7 10*3/uL Invalid Interpretation Code 0.1-0.9 [facility] Comment on above: Order Comment: Testi ng performed at: [] [facility], [address] [place] [address], [address], , Adjunct Nursing Faculty: Tres Cm, PhD Performed By: #### C 121, C301, C406, C4176, C116, C48, C8, C45, C400, C115 #### Refer to report for performing lab Monocytes/100 WBC (Bld) 15 % Invalid Interpretation Code Not Estab. [facility] Comment on above: Order Comment: Testi ng performed at: [] [facility], [address] [place] [address], [address], , Adjunct Nursing Faculty: Tres Cm, PhD Performed By: #### C 121, C301, C406, C4176, C116, C48, C8, C45, C400, C115 #### Refer to report for performing lab Neutrophils (Absolute) 2.5 x10E3/uL Invalid Interpretation Code 1.4-7.0 [facility] Comment on above: Order Comment: Testi ng performed at: [] [facility], [address] [place] [address], [address], , Adjunct Nursing Faculty: Tres Cm, PhD Performed By: #### C 121, C301, C406, C4176, C116, C48, C8, C45, C400, C115 #### Refer to report for performing lab Neutrophils/100 WBC (Bld) 51 % Invalid Interpretation Code Not Estab. [facility] Comment on above: Order Comment: Testi ng performed at: [] [facility], [address] [place] [address], [address], , Adjunct Nursing Faculty: Tres Cm, PhD Performed By: #### C 121, C301, C406, C4176, C116, C48, C8, C45, C400, C115 #### Refer to report for performing lab Platelets (Bld) [#/Vol] 81 10*3/uL Critically low 150-450 [facility] Comment on above: Order Comment: Testi ng performed at: [] [facility], [address] [place] [address], [address], , Adjunct Nursing Faculty: Tres Cm, PhD Result Comment: Plat elet count verified by examination of peripheral blood smear. Performed By: #### C 121, C301, C406, C4176, C116, C48, C8, C45, C400, C115 #### Refer to report for performing lab RBC (Bld) [#/Vol] 4.47 10*6/uL Invalid Interpretation Code 4.14-5.80 [facility] Comment on above: Order Comment: Testi ng performed at: [] [facility], [address] [place] [address], [phone], , Adjunct Nursing Faculty: Tres Cm, PhD Performed By: #### C 121, C301, C406, C4176, C116, C48, C8, C45, C400, C115 #### Refer to report for performing lab WBC (Bld) [#/Vol] 4.8 10*3/uL Invalid Interpretation Code 3.4-10.8 [facility] Comment on above: Order Comment: Testi ng performed at: [] [facility], [address] [place] [address], [address], , Adjunct Nursing Faculty: Tres Cm, PhD Result Comment: Ve rified by repeat analysis Performed By: #### C 121, C301, C406, C4176, C116, C48, C8, C45, C400, C115 #### Refer to report for performing lab GGT (COPC)on 04-05-2023 Gamma glutamyl transferase [Catalytic activity/Vol] 47 U/L Invalid Interpretation Code 0-65 [facility] Comment on above: Order Comment: Testi ng performed at: [] [facility], [address] [place], [address], , Adjunct Nursing Faculty: Tres Cm, PhD Performed By: #### C 121, C301, C406, C4176, C116, C48, C8, C45, C400, C115 #### Refer to report for performing lab Hepatic Panel (COPC)on 04-05 Bilirubin.indirect [Mass/Vol] 0.68 mg/dL High 0.00-0.40 [facility] Comment on above: Order Comment: Testi ng performed at: [] [facility], [address] [place] [address], [address], , Adjunct Nursing Faculty: Tres Cm, PhD Performed By: #### C 121, C301, C406, C4176, C116, C48, C8, C45, C400, C115 #### Refer to report for performing lab ALT [Catalytic activity/Vol] 74 U/L High 0-44 [facility] Comment on above: Order Comment: Testi ng performed at: [] [facility], [address] [place] [address], [phone], , Adjunct Nursing Faculty: Tres Cm, PhD Performed By: #### C 121, C301, C406, C4176, C116, C48, C8, C45, C400, C115 #### Refer to report for performing lab ALP [Catalytic activity/Vol] 180 U/L High 44-121 [facility] Comment on above: Order Comment: Testi ng performed at: [] [facility], [address] [place] [address], [address], , Adjunct Nursing Faculty: Tres Cm, PhD Performed By: #### C 121, C301, C406, C4176, C116, C48, C8, C45, C400, C115 #### Refer to report for performing lab AST [Catalytic activity/Vol] 89 U/L High 0-40 [facility] Comment on above: Order Comment: Testi ng performed at: [] [facility], [address] [place] [address], [address], , Adjunct Nursing Faculty: Tres Cm, PhD Performed By: #### C 121, C301, C406, C4176, C116, C48, C8, C45, C400, C115 #### Refer to report for performing lab Bilirubin [Mass/Vol] 1.6 mg/dL High 0.0-1.2 [facility] Comment on above: Order Comment: Testi ng performed at: [] [facility], [address] [place], [place] [address], [address], , Adjunct Nursing Faculty: Tres Cm, PhD Performed By: #### C 121, C301, C406, C4176, C116, C48, C8, C45, C400, C115 #### Refer to report for performing lab Albumin [Mass/Vol] 3.0 g/dL Low 4.0-5.0 [facility] Comment on above: Order Comment: Testi ng performed at: [] [facility] [place] [address], [address], , Adjunct Nursing Faculty: Tres Cm, PhD Performed By: #### C 121, C301, C406, C4176, C116, C48, C8, C45, C400, C115 #### Refer to report for performing lab Protein [Mass/Vol] 7.1 g/dL Invalid Interpretation Code 6.0-8.5 [facility] Comment on above: Order Comment: Testi ng performed at: [] [facility], [facility] [address] [place] [address], [address], , Adjunct Nursing Faculty: Tres Cm, PhD Performed By: #### C 121, C301, C406, C4176, C116, C48, C8, C45, C400, C115 #### Refer to report for performing lab HgbA1C ([facility])on 04-05-2023 HbA1c (Bld) [Mass fraction] 6.8 % High 4.8-5.6 [facility] Comment on above: Order Comment: Testi ng performed at: [] [facility], [address] [place], [address], , Adjunct Nursing Faculty: Tres Cm, PhD Result Comment: Pred iabetes: 5.7 - 6.4 Diabetes: >6.4 Glycemic control for adults with diabetes: <7.0 Performed By: #### C 121, C301, C406, C4176, C116, C48, C8, C45, C400, C115 #### Refer to report for performing lab Magnesium (COPC)on 3 Magnesium [Mass/Vol] 1.9 mg/dL Invalid Interpretation Code 1.6-2.3 [facility] Comment on above: Order Comment: Testi ng performed at: [] [facility], [address] [place] [address], [address], , Adjunct Nursing Faculty: Tres Cm, PhD Performed By: #### C 121, C301, C406, C4176, C116, C48, C8, C45, C400, C115 #### Refer to report for performing lab Phosphorus (COPC)on 04-05-20 23 Phosphate [Mass/Vol] 3.8 mg/dL Invalid Interpretation Code 2.8-4.1 [facility] Comment on above: Order Comment: Testi ng performed at: [] [facility], [address] [place] [address], [address], , Adjunct Nursing Faculty: Tres Cm, PhD Performed By: #### C 121, C301, C406, C4176, C116, C48, C8, C45, C400, C115 #### Refer to report for performing lab Lipid Panel (COPC)on 023 Cholesterol, Total Test Not Performed. Normal [facility] Comment on above: Order Comment: Testi ng performed at: [] [facility], [address] [place] [address], [address], , Adjunct Nursing Faculty: Tres Cm, PhD Result Comment: Requ est [...] Order Comment: Testi ng performed at: [] [facility], [address] [place] [address], [address], , Adjunct Nursing Faculty: Tres Cm, PhD Result Comment: Test not performed Performed By: #### C 121, C301, C406, C4176, C116, C48, C8, C45, C400, C115 #### Refer to report for performing lab Triglycerides Test Not Performed. Normal [facility] Comment on above: Order Comment: Testi ng performed at: [] [facility], [address] [place] [address], [address], , Adjunct Nursing Faculty: Tres Cm, PhD Result Comment: Test not performed Performed By: #### C 121, C301, C406, C4176, C116, C48, C8, C45, C400, C115 #### Refer to report for performing lab VLDL Cholesterol Elliott Test Not Performed. Normal [facility] Comment on above: Order Comment: Testi ng performed at: [] [facility], [address] [place] [address], [address], , Adjunct Nursing Faculty: Tres Cm, PhD Result Comment: Unab le to calculate result since non-numeric result obtained for component test. Performed By: #### C 121, C301, C406, C4176, C116, C48, C8, C45, C400, C115 #### Refer to report for performing lab Written Authorizationon 03-15 Written Authorization Comment Normal [facility] Comment on above: Order Comment: Testi ng performed at: [] [facility], [address] [place] [address], [address], , Adjunct Nursing Faculty: Tres Cm, PhD Result Comment: Writ ten Authorization Received. Authorization received from Written Request 04-12-2023 Logged by Danny Bunn Performed By: #### C 121, C301, C406, C4176, C116, C48, C8, C45, C400, C115 #### Refer to report for performing lab Marissa 02-16-2023 Esophagogastroduodenosc opy [facility] GI Patient Name: Leon Rider Procedure [...] was normal. Procedure Code(s): --- Professional --- 20150, Esophagogastroduodenosc opy, flexible, transoral; diagnostic, including collection of specimen(s) by brushing or washing, when performed (separate procedure) Diagnosis Code(s): --- Professional --- I85.00, Esophageal varices without bleeding K76.6, Portal hypertension K31.89, Other diseases of stomach and duodenum K31.819, Angiodysplasia of stomach and duodenum without bleeding CPT copyright 2020 [employer]. All rights reserved. The codes documented in this report are preliminary and upon acquisitions librarian review may be revised to meet current compliance requirements. MD VINCENT Chiang MD 02/16/2023 9:28:58 AM This report has been signed electronically. Estimated Blood Loss: Estimated blood loss: none. Number of Addenda: 0 Note Initiated On: 02/16/2023 9:03 AM Total Procedure Duration Time 0 hours 2 minutes 20 seconds [address] [place] [address] IMPRESSION: - Z-line regular, 40 cm from [...] endoscopy in 6 months for surveillance. Normal [facility] EGD Anesthesia - MAC; [facility] E [...] upper endoscopy in 6 months for surveillance. [facility] GI Patient Name: Leon Rider Procedure Date: [...] was normal. Procedure Code(s): --- Professional --- 14440, Esophagogastroduodenosc opy, flexible, transoral; diagnostic, including collection of specimen(s) by brushing or washing, when performed (separate procedure) Diagnosis Code(s): --- Professional --- I85.00, Esophageal varices without bleeding K76.6, Portal hypertension K31.89, Other diseases of stomach and duodenum K31.819, Angiodysplasia of stomach and duodenum without bleeding CPT copyright 2020 [employer]. All rights reserved. The codes documented in this report are preliminary and upon acquisitions librarian review may be revised to meet current compliance requirements. MD VINCENT Chiang MD 02/16/2023 9:28:58 AM This report has been signed electronically. Estimated Blood Loss: Estimated blood loss: none. Number of Addenda: 0 Note Initiated On: 02/16/2023 9:03 AM Total Procedure Duration Time 0 hours 2 minutes [address] seconds [address] [place] [address] [facility] Vincent Moses MD - 02/16/2023 [facility] GI Patient Name: Leon Rider Procedure [...] was normal. Procedure Code(s): --- Professional --- 81575, Esophagogastroduodenosc opy, flexible, transoral; diagnostic, including collection of specimen(s) by brushing or washing, when performed (separate procedure) Diagnosis Code(s): --- Professional --- I85.00, Esophageal varices without bleeding K76.6, Portal hypertension K31.89, Other diseases of stomach and duodenum K31.819, Angiodysplasia of stomach and duodenum without bleeding CPT copyright 2020 [employer]. All rights reserved. The codes documented in this report are preliminary and upon acquisitions librarian review may be revised to meet current compliance requirements. MD VINCENT Chiang MD 02/16/2023 9:28:58 AM This report has been signed electronically. Estimated Blood Loss: Estimated blood loss: none. Number of Addenda: 0 Note Initiated On: 02/16/2023 9:03 AM Total Procedure Duration Time 0 hours 2 minutes [address] seconds [address] [place] [address] IMPRESSION: - Z-line regular, 40 cm from [...] upper endoscopy in 6 months for surveillance. [facility] Study observation (narrative) Declara Glucose Auto test strip (Bld ) [Mass/Vol]on 02-16-2023 Glucose [Mass/Vol] 158 mg/dL High 70-99 [facility] Comment on above: Performed By: #### 2 340-8 #### [facility] [address] [place] [address] Glucose [Mass/Vol] 158 mg/dL High 70 - 99 mg/dL [facility] Interpretation and review of laboratory results Abnormal [facility]Don 12-23-2022 Esophagogastroduodenosc opy [facility] GI Patient Name: Leon Rider Procedure [...] oxygen saturations were monitored continuously. The GIF-H190 [id number] Endoscope was introduced through the mouth, and [...] was normal. Procedure Code(s): --- Professional --- 74194, Esophagogastroduodenosc opy, flexible, transoral; with band ligation of esophageal/gastric varices Diagnosis Code(s): --- Professional --- I85.00, Esophageal varices without bleeding K76.6, Portal hypertension K31.89, Other diseases of stomach and duodenum CPT copyright 2020 [employer]. All rights reserved. The codes documented in this report are preliminary and upon acquisitions librarian review may be revised to meet current compliance requirements. MD Paul Khan MD 12/23/2022 10:36:45 AM This report has been signed electronically. Estimated Blood Loss: Estimated blood loss: none. Number of Addenda: 0 Note Initiated On: 12/23/2022 10:12 AM Total Procedure Duration Time 0 hours 6 minutes 30 seconds [address] [place] [address] IMPRESSION: - Grade II esophageal varices. Completely [...] to GI office as previously scheduled. Normal [facility] EGD [facility]est[facility] - [facility] [facility] E NDOSCOPYon 12-23-2022 - Grade II [...] Return to GI office as previously scheduled. [facility] GI Patient Name: eLon Rider Procedure Date: 12/23/2022 10:12 AM Date [...] oxygen saturations were monitored continuously. The GIF-H190 [id number] Endoscope was introduced through the mouth, and [...] was normal. Procedure Code(s): --- Professional --- 04860, Esophagogastroduodenosc opy, flexible, transoral; with band ligation of esophageal/gastric varices Diagnosis Code(s): --- Professional --- I85.00, Esophageal varices without bleeding K76.6, Portal hypertension K31.89, Other diseases of stomach and duodenum CPT copyright 2020 [employer]. All rights reserved. The codes documented in this report are preliminary and upon acquisitions librarian review may be revised to meet current compliance requirements. MD Paul Khan MD 12/23/2022 10:36:45 AM This report has been signed elect (more content not included)... [facility] Paul Mishra V - 12/23/2022 [facility] GI Patient Name: Leon Rider Procedure [...] oxygen saturations were monitored continuously. The GIF-H190 [id number] Endoscope was introduced through the mouth, and [...] was normal. Procedure Code(s): --- Professional --- 87997, Esophagogastroduodenosc opy, flexible, transoral; with band ligation of esophageal/gastric varices Diagnosis Code(s): --- Professional --- I85.00, Esophageal varices without bleeding K76.6, Portal hypertension K31.89, Other diseases of stomach and duodenum CPT copyright 2020 [employer]. All rights reserved. The codes documented in this report are preliminary and upon acquisitions librarian review may be revised to meet current compliance requirements. MD Paul Khan MD 12/23/2022 10:36:45 AM This report has been signed electronically. Estimated Blood Loss: Estimated blood loss: none. Number of Addenda: 0 Note Initiated On: 12/23/2022 10:12 AM Total Procedure Duration Time 0 hours 6 minutes 30 seconds [address] [place] [address] IMPRESSION: - Grade II esophageal varices. Completely [...] Return to GI office as previously scheduled. [facility] Radiology Study observation (narrative) Declara Glucose Auto test strip (Bld ) [Mass/Vol]on 12-23-2022 Glucose [Mass/Vol] 135 mg/dL High 70-99 [facility] Comment on above: Performed By: #### 2 340-8 #### [facility] [address] [place] [address] Glucose [Mass/Vol] 135 mg/dL High 70 - 99 mg/dL Declara Interpretation and review of laboratory results Abnormal [facility] Basic Metabolic Panel (COPC) on 11-21-2022 CO2 [Moles/Vol] 24 mmol/L Invalid Interpretation Code 20-29 [facility] Comment on above: Order Comment: Testi ng performed at: [CB] [facility], [address] [place] [address], [address], , Adjunct Nursing Faculty: Tres Cm, PhD Performed By: #### C 121, C301, C406, C4176, C116, C48, C8, C45, C400, C115 #### Refer to report for performing lab Creatinine [Mass/Vol] 0.63 mg/dL Low 0.76-1.27 [facility] Comment on above: Order Comment: Testi ng performed at: [CB] [facility], [address] [place] [address], [place], [address], , Adjunct Nursing Faculty: Tres Cm, PhD Performed By: #### C 121, C301, C406, C4176, C116, C48, C8, C45, C400, C115 #### Refer to report for performing lab GFR/1.73 sq M.predicted among non-blacks MDRD (S/P/Bld) [Vol rate/Area] 120 mL/min/{1.73_m2} Invalid Interpretation Code >59 [facility] Comment on above: Order Comment: Testi ng performed at: [CB] [facility] [address] [place], [address], , Adjunct Nursing Faculty: Tres Cm, PhD Performed By: #### C 121, C301, C406, C4176, C116, C48, C8, C45, C400, C115 #### Refer to report for performing lab Potassium [Moles/Vol] 3.6 mmol/L Invalid Interpretation Code 3.5-5.2 [facility] Comment on above: Order Comment: Testi ng performed at: [] [facility], [address] [place] [address], [address], , Adjunct Nursing Faculty: Tres Cm, PhD Performed By: #### C 121, C301, C406, C4176, C116, C48, C8, C45, C400, C115 #### Refer to report for performing lab Urea nitrogen [Mass/Vol] 5 mg/dL Low 6-24 [facility] Comment on above: Order Comment: Testi ng performed at: [] [facility], [address] [place] [address], [address], , Adjunct Nursing Faculty: Tres Cm, PhD Performed By: #### C 121, C301, C406, C4176, C116, C48, C8, C45, C400, C115 #### Refer to report for performing lab Urea nitrogen/Creatinine [Mass ratio] 8 mg/mg Low 9-20 [facility] Comment on above: Order Comment: Testi ng performed at: [] [facility], [address] [place] [address], [address], , Adjunct Nursing Faculty: Tres Cm, PhD Performed By: #### C 121, C301, C406, C4176, C116, C48, C8, C45, C400, C115 #### Refer to report for performing lab Glucose [Mass/Vol] 108 mg/dL High 70-[address] [facility] Comment on above: Order Comment: Testi ng performed at: [] [facility], [address] [place] [address], [address], , Adjunct Nursing Faculty: Tres Cm, PhD Performed By: #### C 121, C301, C406, C4176, C116, C48, C8, C45, C400, C115 #### Refer to report for performing lab Calcium [Mass/Vol] 8.6 mg/dL Low 8.7-10.[address] [facility] [facility] Comment on above: Order Comment: Testfito ng performed at: [] [facility], [address] [place] [address], [phone], , Adjunct Nursing Faculty: Tres Cm, PhD Performed By: #### C 121, C301, C406, C4176, C116, C48, C8, C45, C400, C115 #### Refer to report for performing lab Sodium [Moles/Vol] 136 mmol/L Invalid Interpretation Code 134-144 [facility] Comment on above: Order Comment: Testfito ng performed at: [] [facility], [address] [place] [address], [address], , Adjunct Nursing Faculty: Tres Cm, PhD Performed By: #### C 121, C301, C406, C4176, C116, C48, C8, C45, C400, C115 #### Refer to report for performing lab Chloride [Moles/Vol] 100 mmol/L Invalid Interpretation Code 96-106 [facility] Comment on above: Order Comment: Testfito ng performed at: [] [facility], [address] [place] [address], [address], , Adjunct Nursing Faculty: Tres Cm, PhD Performed By: #### C 121, C301, C406, C4176, C116, C48, C8, C45, C400, C115 #### Refer to report for performing lab CBC with differential (COPC) on 11-21-2022 Basophils (Bld) [#/Vol] 0.1 10*3/uL Invalid Interpretation Code 0.0-0.2 [facility] Comment on above: Order Comment: Testi ng performed at: [CB] [facility], [address] [place], [address], , Adjunct Nursing Faculty: Tres Cm, PhD Performed By: #### C 121, C301, C406, C4176, C116, C48, C8, C45, C400, C115 #### Refer to report for performing lab Basophils/100 WBC (Bld) 2 % Invalid Interpretation Code Not Estab. [facility] Comment on above: Order Comment: Testi ng performed at: [] [facility], [address] [place] [address], [address], , Adjunct Nursing Faculty: Tres Cm, PhD Performed By: #### C 121, C301, C406, C4176, C116, C48, C8, C45, C400, C115 #### Refer to report for performing lab Eosinophils (Bld) [#/Vol] 0.4 10*3/uL Invalid Interpretation Code 0.0-0.4 [facility] Comment on above: Order Comment: Testi ng performed at: [] [facility], [place], [address], , Adjunct Nursing Faculty: Tres Cm, PhD Performed By: #### C 121, C301, C406, C4176, C116, C48, C8, C45, C400, C115 #### Refer to report for performing lab Eosinophils/100 WBC (Bld) 8 % Invalid Interpretation Code Not Estab. [facility] Comment on above: Order Comment: Testi ng performed at: [] [facility], [address] [place], [address], , Adjunct Nursing Faculty: Tres Cm, PhD Performed By: #### C 121, C301, C406, C4176, C116, C48, C8, C45, C400, C115 #### Refer to report for performing lab Erythrocyte distribution width (RBC) [Ratio] 14.9 % Invalid Interpretation Code 11.6-15.4 [facility] Comment on above: Order Comment: Testi ng performed at: [] [facility], [address] [place] [address], [address], , Adjunct Nursing Faculty: Tres Cm, PhD Performed By: #### C 121, C301, C406, C4176, C116, C48, C8, C45, C400, C115 #### Refer to report for performing lab Hematocrit (Bld) [Volume fraction] 38.1 % Invalid Interpretation Code 37.5-51.0 [facility] Comment on above: Order Comment: Testi ng performed at: [] [facility], [address] [place] [address], [address], , Adjunct Nursing Faculty: Tres Cm, PhD Performed By: #### C 121, C301, C406, C4176, C116, C48, C8, C45, C400, C115 #### Refer to report for performing lab Hematology Comments: Note: Invalid Interpretation Code [facility] Comment on above: Order Comment: Testi ng performed at: [] [facility], [address] [place] [address], [address], , Adjunct Nursing Faculty: Tres Cm, PhD Result Comment: Veri fied by microscopic examination. Performed By: #### C 121, C301, C406, C4176, C116, C48, C8, C45, C400, C115 #### Refer to report for performing lab Hemoglobin (Bld) [Mass/Vol] 12.9 g/dL Low 13.0-17.7 [facility] Comment on above: Order Comment: Testi ng performed at: [] [facility], [address] [place] [address], [address], , Adjunct Nursing Faculty: Tres Cm, PhD Performed By: #### C 121, C301, C406, C4176, C116, C48, C8, C45, C400, C115 #### Refer to report for performing lab Immature Grans (Abs) 0.0 x10E3/uL Invalid Interpretation Code 0.0-0.1 [facility] Comment on above: Order Comment: Testi ng performed at: [] [address], [address], , Adjunct Nursing Faculty: Tres Cm, PhD Performed By: #### C 121, C301, C406, C4176, C116, C48, C8, C45, C400, C115 #### Refer to report for performing lab Immature granulocytes/100 WBC (Bld) 0 % Invalid Interpretation Code Not Estab. [facility] Comment on above: Order Comment: Testi ng performed at: [] [address], [address], , Adjunct Nursing Faculty: Tres Cm, PhD Performed By: #### C 121, C301, C406, C4176, C116, C48, C8, C45, C400, C115 #### Refer to report for performing lab Lymphocytes (Bld) [#/Vol] 1.0 10*3/uL Invalid Interpretation Code 0.7-3.1 [facility] Comment on above: Order Comment: Testi ng performed at: [] [facility], [address] [place] [address], [address], , Adjunct Nursing Faculty: Tres Cm, PhD Performed By: #### C 121, C301, C406, C4176, C116, C48, C8, C45, C400, C115 #### Refer to report for performing lab Lymphocytes/100 WBC (Bld) 23 % Invalid Interpretation Code Not Estab. [facility] Comment on above: Order Comment: Testi ng performed at: [] [facility], [address] [place] [address], [address], , Adjunct Nursing Faculty: Tres Cm, PhD Performed By: #### C 121, C301, C406, C4176, C116, C48, C8, C45, C400, C115 #### Refer to report for performing lab MCH (RBC) [Entitic mass] 29.2 pg Invalid Interpretation Code 26.6-33.0 [facility] Comment on above: Order Comment: Testi ng performed at: [] [facility], [address] [place] [address], [address], , Adjunct Nursing Faculty: Tres Cm, PhD Performed By: #### C 121, C301, C406, C4176, C116, C48, C8, C45, C400, C115 #### Refer to report for performing lab MCHC (RBC) [Mass/Vol] 33.9 g/dL Invalid Interpretation Code 31.5-35.7 [facility] Comment on above: Order Comment: Testi ng performed at: [] [facility], [address] [place] [address], [address], , Adjunct Nursing Faculty: Tres Cm, PhD Performed By: #### C 121, C301, C406, C4176, C116, C48, C8, C45, C400, C115 #### Refer to report for performing lab MCV (RBC) [Entitic vol] 86 fL Invalid Interpretation Code 79-97 [facility] Comment on above: Order Comment: Testi ng performed at: [] [facility], [address] [place] [address], [address], , Adjunct Nursing Faculty: Tres Cm, PhD Performed By: #### C 121, C301, C406, C4176, C116, C48, C8, C45, C400, C115 #### Refer to report for performing lab Monocytes (Bld) [#/Vol] 0.7 10*3/uL Invalid Interpretation Code 0.1-0.9 [facility] Comment on above: Order Comment: Testi ng performed at: [] [facility], [address] [place], [address], , Adjunct Nursing Faculty: Tres Cm, PhD Performed By: #### C 121, C301, C406, C4176, C116, C48, C8, C45, C400, C115 #### Refer to report for performing lab Monocytes/100 WBC (Bld) 15 % Invalid Interpretation Code Not Estab. [facility] Comment on above: Order Comment: Testi ng performed at: [] [facility], [address] [place] [address], [address], , Adjunct Nursing Faculty: Tres Cm, PhD Performed By: #### C 121, C301, C406, C4176, C116, C48, C8, C45, C400, C115 #### Refer to report for performing lab Neutrophils (Absolute) 2.2 x10E3/uL Invalid Interpretation Code 1.4-7.0 [facility] Comment on above: Order Comment: Testi ng performed at: [] [facility], [address] [place] [address], [address], , Adjunct Nursing Faculty: Tres Cm, PhD Performed By: #### C 121, C301, C406, C4176, C116, C48, C8, C45, C400, C115 #### Refer to report for performing lab Neutrophils/100 WBC (Bld) 52 % Invalid Interpretation Code Not Estab. [facility] Comment on above: Order Comment: Testi ng performed at: [] [facility], [address] [place] [address], [address], , Adjunct Nursing Faculty: Tres Cm, PhD Performed By: #### C 121, C301, C406, C4176, C116, C48, C8, C45, C400, C115 #### Refer to report for performing lab Platelets (Bld) [#/Vol] 84 10*3/uL Critically low 150-450 [facility] Comment on above: Order Comment: Testi ng performed at: [] [facility], [address] [place] [address], [address], , Adjunct Nursing Faculty: Tres Cm, PhD Result Comment: Plat elet count verified by examination of peripheral blood smear. Performed By: #### C 121, C301, C406, C4176, C116, C48, C8, C45, C400, C115 #### Refer to report for performing lab RBC (Bld) [#/Vol] 4.42 10*6/uL Invalid Interpretation Code 4.14-5.80 [facility] Comment on above: Order Comment: Testi ng performed at: [] [facility], [address] [place] [address], [address], , Adjunct Nursing Faculty: Tres Cm, PhD Performed By: #### C 121, C301, C406, C4176, C116, C48, C8, C45, C400, C115 #### Refer to report for performing lab WBC (Bld) [#/Vol] 4.3 10*3/uL Invalid Interpretation Code 3.4-10.8 [facility] Comment on above: Order Comment: Testi ng performed at: [] [facility], [address] [place] [address], [address], , Adjunct Nursing Faculty: Tres Cm, PhD Result Comment: Ve rified by repeat analysis Performed By: #### C 121, C301, C406, C4176, C116, C48, C8, C45, C400, C115 #### Refer to report for performing lab GGT (COPC)on 11-21-2022 Gamma glutamyl transferase [Catalytic activity/Vol] 59 U/L Invalid Interpretation Code 0-65 [facility] Comment on above: Order Comment: Testi ng performed at: [] [facility], [address] [place], [address], , Adjunct Nursing Faculty: Tres Cm, PhD Performed By: #### C 121, C301, C406, C4176, C116, C48, C8, C45, C400, C115 #### Refer to report for performing lab Hepatic Panel (COPC)on 11-21 Bilirubin.indirect [Mass/Vol] 0.65 mg/dL High 0.00-0.40 [facility] Comment on above: Order Comment: Testi ng performed at: [] [address], [address], , Adjunct Nursing Faculty: Tres Cm, PhD Performed By: #### C 121, C301, C406, C4176, C116, C48, C8, C45, C400, C115 #### Refer to report for performing lab AST [Catalytic activity/Vol] 72 U/L High 0-40 [facility] Comment on above: Order Comment: Testi ng performed at: [] [address], [address], , Adjunct Nursing Faculty: Tres Cm, PhD Performed By: #### C 121, C301, C406, C4176, C116, C48, C8, C45, C400, C115 #### Refer to report for performing lab ALP [Catalytic activity/Vol] 188 U/L High 44-121 [facility] Comment on above: Order Comment: Testi ng performed at: [] [address], [address], , Adjunct Nursing Faculty: Tres Cm, PhD Performed By: #### C 121, C301, C406, C4176, C116, C48, C8, C45, C400, C115 #### Refer to report for performing lab ALT [Catalytic activity/Vol] 46 U/L High 0-44 [facility] Comment on above: Order Comment: Testi ng performed at: [] [address], [address], , Adjunct Nursing Faculty: Tres Cm, PhD Performed By: #### C 121, C301, C406, C4176, C116, C48, C8, C45, C400, C115 #### Refer to report for performing lab Albumin [Mass/Vol] 3.1 g/dL Low 4.0-5.0 [facility] Comment on above: Order Comment: Testi ng performed at: [] [facility], [address] [place] [address], [address], , Adjunct Nursing Faculty: Tres Cm, PhD Performed By: #### C 121, C301, C406, C4176, C116, C48, C8, C45, C400, C115 #### Refer to report for performing lab Bilirubin [Mass/Vol] 1.7 mg/dL High 0.0-1.2 [facility] Comment on above: Order Comment: Testi ng performed at: [] [facility], [address] [place] [address], [address], , Adjunct Nursing Faculty: Tres Cm, PhD Performed By: #### C 121, C301, C406, C4176, C116, C48, C8, C45, C400, C115 #### Refer to report for performing lab Protein [Mass/Vol] 7.4 g/dL Invalid Interpretation Code 6.0-8.5 [facility] Comment on above: Order Comment: Testi ng performed at: [] [facility], [address] [place] [address], [address], , Adjunct Nursing Faculty: rTes Cm, PhD Performed By: #### C 121, C301, C406, C4176, C116, C48, C8, C45, C400, C115 #### Refer to report for performing lab HgbA1C (COPC)on 11-21-2022 HbA1c (Bld) [Mass fraction] 6.6 % High 4.8-5.6 [facility] Comment on above: Order Comment: Testi ng performed at: [] [facility], [address] [place] [address], [address], , Adjunct Nursing Faculty: Tres Cm, PhD Result Comment: Pred iabetes: [...] Order Comment: Testi ng performed at: [] [facility], [address] [place] [address], [address], , Adjunct Nursing Faculty: Tres Cm, PhD Performed By: #### C 121, C301, C406, C4176, C116, C48, C8, C45, C400, C115 #### Refer to report for performing lab LDL Chol Calc ([facility]) 151 mg/dL High 0-99 [facility] Comment on above: Order Comment: Testi ng performed at: [Direct[facility]] [facility], [address] [place] [address], [address], , Adjunct Nursing Faculty: Tres Cm, PhD Performed By: #### C 121, C301, C406, C4176, C116, C48, C8, C45, C400, C115 #### Refer to report for performing lab VLDL Cholesterol Elliott 25 mg/dL Invalid Interpretation Code 5-40 [facility] Comment on above: Order Comment: Testi ng performed at: [DirectRM] [facility], [address] [place] [address], [address], , Adjunct Nursing Faculty: Tres Cm, PhD Performed By: #### C 121, C301, C406, C4176, C116, C48, C8, C45, C400, C115 #### Refer to report for performing lab Triglyceride [Mass/Vol] 139 mg/dL Invalid Interpretation Code 0-149 [facility] Comment on above: Order Comment: Testi ng performed at: [DirectRM] [facility], [address] [place] [address], [address], , Adjunct Nursing Faculty: Tres Cm, PhD Performed By: #### C 121, C301, C406, C4176, C116, C48, C8, C45, C400, C115 #### Refer to report for performing lab Cholesterol [Mass/Vol] 224 mg/dL High 100-199 [facility] Comment on above: Order Comment: Testi ng performed at: [CB] [facility], [address] [place], [address], , Adjunct Nursing Faculty: Tres Cm, PhD Performed By: #### C 121, C301, C406, C4176, C116, C48, C8, C45, C400, C115 #### Refer to report for performing lab Magnesium ([facility])on Magnesium [Mass/Vol] 2.0 mg/dL Invalid Interpretation Code 1.6-2.3 [facility] Comment on above: Order Comment: Testi ng performed at: [CB] [facility], [address] [place], [address], , Adjunct Nursing Faculty: Tres Cm, PhD Performed By: #### C 121, C301, C406, C4176, C116, C48, C8, C45, C400, C115 #### Refer to report for performing lab PSA, Free and Total ([facility])o n 11-21-2022 % Free PSA 50.0 % Invalid Interpretation Code [facility] Comment on above: Order Comment: Testi ng performed at: [CB] [facility], [address] [place], [address], , Adjunct Nursing Faculty: Tres Cm, PhD Result Comment: The table [...] Order Comment: Testi ng performed at: [] [facility], [address] [place] [address], [address], , Adjunct Nursing Faculty: Tres Cm, PhD Result Comment: Roch saturnino ECLIA methodology. According to the [employer] [employer], Serum PSA should decrease and [...] Order Comment: Testi ng performed at: [] [facility], [address] [place], [address], , Adjunct Nursing Faculty: Tres Cm, PhD Result Comment: Mike matamoros ECLIA methodology. Performed By: #### C 121, C301, C406, C4176, C116, C48, C8, C45, C400, C115 #### Refer to report for performing lab Phosphorus (COPC)on 11-21-19 23 Phosphate [Mass/Vol] 4.0 mg/dL Invalid Interpretation Code 2.8-4.1 [facility] Comment on above: Order Comment: Testi ng performed at: [] [facility], [address] [place] [address], [address], , Adjunct Nursing Faculty: Tres Cm, PhD Performed By: #### C 121, C301, C406, C4176, C116, C48, C8, C45, C400, C115 #### Refer to report for performing lab TSH ([facility])on 11-21-2022 TSH 1.800 uIU/mL Invalid Interpretation Code 0.450-4.50 0 [facility] Comment on above: Order Comment: Testi ng performed at: [] [facility], [address] [place] [address], [address], , Adjunct Nursing Faculty: Tres Cm, PhD Performed By: #### C 121, C301, C406, C4176, C116, C48, C8, C45, C400, C115 #### Refer to report for performing lab Uric Acid ([facility])on 3 Urate [Mass/Vol] 3.6 mg/dL Low 3.8-8.4 [facility] Comment on above: Order Comment: Testi ng performed at: [] [facility], [address] [place] [address], [address], , Adjunct Nursing Faculty: Tres Cm, PhD Result Comment: Ther apeutic target for gout patients: <6.0 Performed By: #### C 121, C301, C406, C4176, C116, C48, C8, C45, C400, C115 #### Refer to report for performing lab Urinalysis and Microscopic w / Rfx to Cx ([facility])on 11-21-2022 Bacteria None seen Invalid Interpretation Code None seen/Few [facility] Comment on above: Order Comment: Testi ng performed at: [] [facility], [address] [place] [address], [address], , Adjunct Nursing Faculty: Tres Cm, PhD Performed By: #### C 121, C301, C406, C4176, C116, C48, C8, C45, C400, C115 #### Refer to report for performing lab Casts None seen Invalid Interpretation Code None seen [facility] Comment on above: Order Comment: Testi ng performed at: [] [facility], [address] [place] [address], [address], , Adjunct Nursing Faculty: Tres Cm, PhD Performed By: #### C 121, C301, C406, C4176, C116, C48, C8, C45, C400, C115 #### Refer to report for performing lab Epithelial cells LM Ql (Urine sed) None seen Invalid Interpretation Code 0 - 10 [facility] Comment on above: Order Comment: Testi ng performed at: [] [facility], [address] [place] [address], [address], , Adjunct Nursing Faculty: Tres Cm, PhD Performed By: #### C 121, C301, C406, C4176, C116, C48, C8, C45, C400, C115 #### Refer to report for performing lab Mucus Threads Present Invalid Interpretation Code Not Estab. [facility] Comment on above: Order Comment: Testi ng performed at: [] [facility], [address] [place] [address], [address], , Adjunct Nursing Faculty: Tres Cm, PhD Performed By: #### C 121, C301, C406, C4176, C116, C48, C8, C45, C400, C115 #### Refer to report for performing lab RBC None seen Invalid Interpretation Code 0 - 2 [facility] Comment on above: Order Comment: Testi ng performed at: [] [facility], [address] [place], [address], , Adjunct Nursing Faculty: Tres Cm, PhD Performed By: #### C 121, C301, C406, C4176, C116, C48, C8, C45, C400, C115 #### Refer to report for performing lab WBC None seen Invalid Interpretation Code 0 - 5 [facility] Comment on above: Order Comment: Testi ng performed at: [] [facility], [address] [place] [address], [address], , Adjunct Nursing Faculty: Tres Cm, PhD Performed By: #### C 121, C301, C406, C4176, C116, C48, C8, C45, C400, C115 #### Refer to report for performing lab Appearance (U) Clear Invalid Interpretation Code Clear [facility] Comment on above: Order Comment: Testi ng performed at: [] [facility], [address] [place] [address], [address], , Adjunct Nursing Faculty: Tres Cm, PhD Performed By: #### C 121, C301, C406, C4176, C116, C48, C8, C45, C400, C115 #### Refer to report for performing lab Bilirubin Ql (U) Negative Invalid Interpretation Code Negative [facility] Comment on above: Order Comment: Testi ng performed at: [] [facility], [address] [place] [address], [address], , Adjunct Nursing Faculty: Tres Cm, PhD Performed By: #### C 121, C301, C406, C4176, C116, C48, C8, C45, C400, C115 #### Refer to report for performing lab Color (U) Yellow Invalid Interpretation Code Yellow [facility] Comment on above: Order Comment: Testi ng performed at: [] [address], [address], , Adjunct Nursing Faculty: Tres Cm, PhD Performed By: #### C 121, C301, C406, C4176, C116, C48, C8, C45, C400, C115 #### Refer to report for performing lab Glucose Ql (U) 2+ Abnormal Negative [facility] Comment on above: Order Comment: Testi ng performed at: [] [facility], [address] [place] [address], [address], , Adjunct Nursing Faculty: Tres Cm, PhD Performed By: #### C 121, C301, C406, C4176, C116, C48, C8, C45, C400, C115 #### Refer to report for performing lab Ketones Ql (U) Negative Invalid Interpretation Code Negative [facility] Comment on above: Order Comment: Testi ng performed at: [] [facility], [address] [place] [address], [address], , Adjunct Nursing Faculty: Tres Cm, PhD Performed By: #### C 121, C301, C406, C4176, C116, C48, C8, C45, C400, C115 #### Refer to report for performing lab Microscopic Examination See below: Invalid Interpretation Code [facility] Comment on above: Order Comment: Testi ng performed at: [] [facility], [address] [place] [address], [address], , Adjunct Nursing Faculty: Tres Cm, PhD Result Comment: Micr oscopic was indicated and was performed. Performed By: #### C 121, C301, C406, C4176, C116, C48, C8, C45, C400, C115 #### Refer to report for performing lab Nitrite, Urine Negative Invalid Interpretation Code Negative [facility] Comment on above: Order Comment: Testi ng performed at: [] [facility], [address] [place] [address], [address], , Adjunct Nursing Faculty: Tres Cm, PhD Performed By: #### C 121, C301, C406, C4176, C116, C48, C8, C45, C400, C115 #### Refer to report for performing lab Occult Blood Negative Invalid Interpretation Code Negative [facility] Comment on above: Order Comment: Testi ng performed at: [] [facility], [address] [place] [address], [address], , Adjunct Nursing Faculty: Tres Cm, PhD Performed By: #### C 121, C301, C406, C4176, C116, C48, C8, C45, C400, C115 #### Refer to report for performing lab pH (U) 6.5 [pH] Invalid Interpretation Code 5.0-7.5 [facility] Comment on above: Order Comment: Testi ng performed at: [] [facility], [address] [place] [address], [address], , Adjunct Nursing Faculty: Tres Cm, PhD Performed By: #### C 121, C301, C406, C4176, C116, C48, C8, C45, C400, C115 #### Refer to report for performing lab Protein Ql (U) Negative Invalid Interpretation Code Negative/T race [facility] Comment on above: Order Comment: Testi ng performed at: [] [facility], [address] [place] [address], [address], , Adjunct Nursing Faculty: Tres Cm, PhD Performed By: #### C 121, C301, C406, C4176, C116, C48, C8, C45, C400, C115 #### Refer to report for performing lab Specific gravity (U) [Rel density] 1.024 Invalid Interpretation Code 1.005-1.03 0 [facility] Comment on above: Order Comment: Testi ng performed at: [] [facility], [address] [place], [address], , Adjunct Nursing Faculty: Tres Cm, PhD Performed By: #### C 121, C301, C406, C4176, C116, C48, C8, C45, C400, C115 #### Refer to report for performing lab Urobilinogen,Semi-Qn 1.0 mg/dL Invalid Interpretation Code 0.2-1.0 [facility] Comment on above: Order Comment: Testi ng performed at: [] [facility], [address] [place] [address], [address], , Adjunct Nursing Faculty: Tres Cm, PhD Performed By: #### C 121, C301, C406, C4176, C116, C48, C8, C45, C400, C115 #### Refer to report for performing lab WBC Esterase Negative Invalid Interpretation Code Negative [facility] Comment on above: Order Comment: Testi ng performed at: [] [facility], [address] [place] [address], [address], , Adjunct Nursing Faculty: Tres mC, PhD Performed By: #### C 121, C301, C406, C4176, C116, C48, C8, C45, C400, C115 #### Refer to report for performing lab Urine, Random, Albumin/Crea (COPC)on 11-21-2022 Alb/Creat Ratio 8 mg/g creat Invalid Interpretation Code 0-29 [facility] Comment on above: Order Comment: Testi ng performed at: [] [facility], [address] [place] [address], [address], , Adjunct Nursing Faculty: Tres Cm, PhD Result Comment: Norm al: 0 - 29 Moderately increased: 30 - 300 Severely increased: >300 Performed By: #### C 121, C301, C406, C4176, C116, C48, C8, C45, C400, C115 #### Refer to report for performing lab Albumin, Urine 8.1 ug/mL Invalid Interpretation Code Not Estab. [facility] Comment on above: Order Comment: Testi ng performed at: [] [facility], [address] [place] [address], [phone], , Adjunct Nursing Faculty: Tres Cm, PhD Performed By: #### C 121, C301, C406, C4176, C116, C48, C8, C45, C400, C115 #### Refer to report for performing lab Creatinine, Urine 102.1 mg/dL Invalid Interpretation Code Not Estab. [facility] Comment on above: Order Comment: Testi ng performed at: [] [facility], [address] [place] [address], [place], [phone], , Adjunct Nursing Faculty: Tres Cm, PhD Performed By: #### C 121, C301, C406, C4176, C116, C48, C8, C45, C400, C115 #### Refer to report for performing lab Urinalysis and Microscopic w / Rfx to Cx ([facility])on 11-20-2022 Microscopic Examination Comment Normal [facility] Comment on above: Order Comment: Testi ng performed at: [] [facility], [address] [place] [address], [phone], , Adjunct Nursing Faculty: Tres Cm, PhD Result Comment: Micr oscopic follows if indicated. Performed By: #### C 121, C301, C406, C4176, C116, C48, C8, C45, C400, C115 #### Refer to report for performing lab Urinalysis Reflex Comment Normal [facility] Comment on above: Order Comment: Testi ng performed at: [] [facility], [address] [place] [address], [phone], , Adjunct Nursing Faculty: Tres Cm, PhD Result Comment: This specimen [...] Self Edit Transcribed Date: 11/17/2022 08:37 Normal [facility] XR Abdomen Single viewon No radiographic evidence for renal stone. -------- FINAL REPORT -------- Dictated By: Mars Ortega Dictated Date: 11/17/2022 08:37 Assigned Physician: Mars Ortega Reviewed and Electronically Signed By: Mars Ortega Signed Date: 11/17/2022 08:39 Workstation ID: [id number] Transcribed By: Self Edit Transcribed Date: 11/17/2022 08:37 [employer] CorporationCRIBE EXAMINATION TYPE: XR ABDOMEN 1 VIEW DATE [...] By: Self Edit Transcribed Date: 11/17/2022 08:37 [facility] Radiology Study observation (narrative) [facility] XR Abdomen Single viewOrdere d By: Mars Ortega on 11-17-2022 [facility] Work Phone: EGCristóbal 10-27-2022 Esophagogastroduodenosc opy [facility] Patient Name: Leon Rider Procedure Date: [...] The patient tolerated the procedure well. Findings: [place]-colored mucosa was present. Biopsied during prior EGD. [...] was normal. Procedure Code(s): --- Professional --- 39669, Esophagogastroduodenosc opy, flexible, transoral; with band ligation of esophageal/gastric varices Diagnosis Code(s): --- Professional --- K22.8, Other specified diseases of esophagus I85.00, Esophageal varices without bleeding K76.6, Portal hypertension K31.89, Other diseases of stomach and duodenum K31.819, Angiodysplasia of stomach and duodenum without bleeding CPT copyright 2020 [employer]. All rights reserved. The codes documented in this report are preliminary and upon acquisitions librarian review may be revised to meet current compliance requirements. DO SUSANA Martinez DO 10/27/2022 5:51:19 PM This report has been signed electronically. Number of Addenda: 0 Estimated Blood Loss: Estimated blood loss was minimal. Total Procedure Duration Time 0 hours 9 minutes [address] [place] [id number] IMPRESSION: - [place]-colored mucosa suspicious for Osborn's esophagus. - Grade [...] as pr (more content not included)... Normal [facility] EGD Anesthesia - [facility] [place] JUDIT [place] NDOSCOPYon 10-27-2022 - [place]-colored muc saúl suspicious for Osborn's esophagus. - [...] previously scheduled. - Discharge patient to home. [facility] GI Patient Name: Leon Rider Procedure [...] The patient tolerated the procedure well. Findings: [place]-colored mucosa was present. Biopsied during prior EGD. [...] was normal. Procedure Code(s): --- Professional --- 54551, Esophagogastroduodenosc opy, flexible, transoral; with band ligation of esophageal/gastric varices Diagnosis Code(s): --- Professional --- K22.8, Other specified diseases of esophagus I85.00, Esophageal varices without bleeding K76.6, Portal hypertension K31.89, Other diseases of stomach and duodenum K31.819, Angiodysplasia of stomach and duodenum without bleeding CPT copyright 2020 [employer]. All rights reserved. The codes documented in this report are preliminary and upon acquisitions librarian review may be revised to meet cur (more content not included)... [facility] Susana Leblanc DO - 10/27/2022 [facility] Patient Name: Leon Rider Procedure Date: [...] The patient tolerated the procedure well. Findings: [place]-colored mucosa was present. Biopsied during prior EGD. [...] was normal. Procedure Code(s): --- Professional --- 29307, Esophagogastroduodenosc opy, flexible, transoral; with band ligation of esophageal/gastric varices Diagnosis Code(s): --- Professional --- K22.8, Other specified diseases of esophagus I85.00, Esophageal varices without bleeding K76.6, Portal hypertension K31.89, Other diseases of stomach and duodenum K31.819, Angiodysplasia of stomach and duodenum without bleeding CPT copyright 2020 [employer]. All rights reserved. The codes documented in this report are preliminary and upon acquisitions librarian review may be revised to meet current compliance requirements. DO SUSANA Martinez DO 10/27/2022 5:51:19 PM This report has been signed electronically. Number of Addenda: 0 Estimated Blood Loss: Estimated blood loss was minimal. Total Procedure Duration Time 0 hours 9 minutes [address] [place] [id number] IMPRESSION: - [place]-colored mucosa suspicious for Osborn's esophagus. - Grade [...] Continue present medicati (more content not included)... [facility] Study observation (narrative) [facility] [employer] Glucose Auto test strip (Bld ) [Mass/Vol]on 10-27-2022 Glucose [Mass/Vol] 102 mg/dL High 70-99 [facility] Comment on above: Performed By: #### 2 [id number] #### [facility] [address] [place] [address] Glucose [Mass/Vol] 102 mg/dL High 70 - 99 mg/dL [facility] Interpretation and review of laboratory results Abnormal [facility] US ABDOMEN LIMITEDon US ABDOMEN LIMITED EXAMINATION [...] Self Edit Transcribed Date: 09/02/2022 08:06 Normal [facility] US Abdomen Limitedon 1. Cirrhotic hepatic [...] By: Self Edit Transcribed Date: 09/02/2022 08:06 [employer] EXAMINATION TYPE: US ABDOMEN LIMITED DATE OF [...] By: Self Edit Transcribed Date: 09/02/2022 08:06 [facility] Radiology Study observation (narrative) [facility] US Abdomen LimitedOrdered By : Sin Maya on 09-02-2022 [facility] Work Phone: ECG 12 leadon 04-14-2022 P Wave [place] 69 degrees [facility] Interval 164 ms [facility] Pathologist interpretation (Bld) [Interp] Sinus tachycardia Nonspecific T wave abnormality Abnormal ECG Confirmed by Susana Valdes MD ([id number]), senior technical editor Donavon Simmons ([id number]) on 04/14/2022 7:53:39 AM [facility] Q-T Interval 374 ms [facility] QRS Duration 82 ms [facility] QTc 484 ms [facility] R [place] 20 degrees [facility] Troponin T.cardiac [Mass/Vol] 35 ug/L degrees [facility] Laboratory - Coagulationon 0 04-14-2022 ACT Coag (Bld) 101 s BPM [facility] Transthoracic echocardiogram (TTE) complete with PRN contrast, bubble, strain, and 3D order panelOrdered By: Jonas Baker on 04-14-2022 Ao VTI 32.6 cm [facility] Work Phone: Aortic Valve Cusp Separation mMode 1.7 cm [facility] Work Phone: Ascending Aorta 3.7 cm [facility] [employer] Work Phone: AV Mean Gradient 7 mmHg [facility] Work Phone: AV Peak Gradient 14 mmHg [facility] Work Phone: AV Peak [place] 1.9 m/s [place] [facility] Work Phone: AV Velocity Ratio 0.84 [facility] Work Phone: Body surface area Derived from formula 2.89 m2 [facility] Work Phone: E Wave Deceleration Time 132 ms 119 - 242 ms [facility] Work Phone: E/E' Ratio Averaged 11 Tayla ty [facility] Work Phone: E/E' Ratio Lateral 10 [facility] Work Phone: E/E' Ratio Septal 12 [employer] Work Phone: Ejection Fraction (A2C) 54 % [facility] Work Phone: Ejection Fraction (A4C) 66 % T [facility] Work Phone: Ejection Fraction (BP) 57 % Tr [facility] Work Phone: Est. RA Pressure 3 mmHg [facility] Work Phone: FS 43 % [facility] Work Phone: Interpretation and review of laboratory results Abnormal [facility] Work Phone: IVSD 1.0 cm 0.6 - 1.0 cm [facility] Work Phone: LA Area Sys (A2C) 17 cm2 [facility] Work Phone: LA Area Sys (A4C) 27 cm2 [facility] Work Phone: LA Volume (BP) 56 mL [facility] Work Phone: LA Volume Index (BP) 21 mL/m2 Mar[facility] Work Phone: Left Atrium Major [place] 7.4 cm Tr [facility] Work Phone: Left Atrium Minor [place] 6.6 cm Tr [facility] Work Phone: LV Diastolic Volume (BP) 167 mL Abnormal 62 - 150 mL [facility] Work Phone: LV Diastolic Volume Index (BP) 61 mL/m2 [facility] [employer] Work Phone: LV EDV (A2C) 171 mL [facility] Work Phone: LV EDV (A4C) 160 mL [facility] Work Phone: LV EDV Index (A2C) 63 mL/m2 [facility] Work Phone: LV EDV Index (A4C) 59 mL/m2 [facility] Work Phone: LV ESV (A2C) 79 mL [facility] Work Phone: LV ESV (A4C) 55 mL [facility] Work Phone: LV ESV Index (A2C) 29 mL/m2 [facility] Work Phone: LV ESV Index (A4C) 20 mL/m2 [employer] [facility] Work Phone: LV Mass 2D 218 g [facility] Work Phone: LV Mass Index 2D 80 g/m2 [facility] Work Phone: LV Systolic Volume (BP) 72 mL Abnormal 21 - 61 mL [facility] Work Phone: LV Systolic Volume Index (BP) 26 mL/m2 [facility] Work Phone: LVIDD 5.8 cm 4.2 - 5.8 cm [facility] Work Phone: LVIDD Index 2.12 cm/m2 [place] [facility] Work Phone: LVIDS 3.3 cm 2.5 - 4.0 cm [facility] Work Phone: LVIDS Index 1.21 cm/m2 [place] [facility] Work Phone: LVOT Mean Grad 6 mmHg [employer] [facility] Work Phone: LVOT Mean [place] 1.2 m/s [facility] Work Phone: LVOT Peak Gradient 10 mmHg [facility] Work Phone: LVOT Peak [place] 1.6 m/s [facility] Work Phone: LVOT Peak VTI 33.2 cm [employer] Work Phone: LVOT:AV VTI Index 1.02 [employer] Phone: LVPWD 0.9 cm 0.6 - 1.0 cm [employer] Phone: Microscopic observation Hans (Ear) [Interp] 1.[address] [facility] h Work Phone: MV E' Tissue Velocity Lateral 14 cm/s [employer] Phone: MV E' Tissue Velocity Septal 11 cm/s [employer] Phone: MV Peak A [place] 1.31 m/s [facility] Work Phone: MV Peak E [place] 1.33 m/s [employer] Work Phone: Relative Wall Thickness ratio 0.31 [employer] Phone: RV Diastolic Basal Dimension 3.4 cm 2.5 - 4.1 cm [employer] Phone: RV Diastolic Length 8.9 cm Abnormal 5.9 - 8. 3 cm [employer] Phone: RV Diastolic Mid Dimension 3.0 cm 1.9 - 3.5 cm [employer] Phone: [employer] Phone: Transthoracic echocardiogram (TTE) complete with PRN [...] panelon 04-13-2022 Anion gap [Moles/Vol] 11 mmol/L [facility] [employer] Calcium [Mass/Vol] 9.1 mg/dL 8.9 - 10. 3 mg/dL [facility] Chloride [Moles/Vol] 99 mmol/L 98 - 10 7 mmol/L [facility] CO2 [Moles/Vol] 23 mmol/L 22 - 32 mmol/L [facility] Creatinine [Mass/Vol] 0.68 mg/dL 0.60 - 1.30 mg/dL [facility] GFR/1.73 sq M.predicted MDRD (S/P/Bld) [Vol rate/Area] 117 mL/min/{1.73_m2} mL/min/1.7 3m2 [facility] Glucose [Mass/Vol] 94 mg/dL 70 - 99 mg/dL [facility] Interpretation and review of laboratory results Abnormal [facility] Potassium [Moles/Vol] 4.1 mmol/L 3.6 - 5.1 mmol/L [facility] Sodium [Moles/Vol] 133 mmol/L Low 136 - 145 mmol/L [facility] Urea nitrogen [Mass/Vol] 9 mg/dL 8 - 20 mg/dL [facility] Urea nitrogen/Creatinine [Mass ratio] 13.2 mg/mg [facility] CT Angio Chest wo and/or w [facility] 04-13-2022 Initial injection wa s suboptimal and [...] By: Self Edit Transcribed Date: 04/13/2022 17:31 Megapoly[employer] CorporationCRIBdocumistic EXAMINATION TYPE: CT ANGIO CHEST WO AND/OR [...] dissection. Motion artifact at the aortic root. Meg[employer] CorporationCRIBE Tanmay Vicente MD - 04/13/2022 EXAMINATION TYPE: [...] By: Self Edit Transcribed Date: 04/13/2022 17:31 [facility] Fibrin D-dimer DDU (PPP) [Ma ss/Vol]on 04-13-2022 Fibrin D-dimer FEU (PPP) [Mass/Vol] 0.51 High <0.50 mcg/mL FEU [facility] Comment on above: Cutoff 0.49 mcg/ml F EU At this cutoff level, the negative predictive value for this test is 100% for deep vein thrombosis (DVT) in patients with a low or moderate pre-test probability and 99.7% for pulmonary embolism (PE) in patients with a low or moderate pre-test probability. Clinical correlation is essential. Interpretation and review of laboratory results Abnormal [facility] Hemogram and platelets WO di fferential panel (Bld)Ordered By: Silke Cronin on 04-13-2022 Basophils (Bld) [#/Vol] 0.00 10*3/uL [facility] Basophils/100 WBC (Bld) 0.8 % 0.0 - 2.0 % [facility] Eosinophils (Bld) [#/Vol] 0.20 10*3/uL [facility] Eosinophils/100 WBC (Bld) 4.1 % 0.0 - 7.0 % [facility] Erythrocyte distribution width (RBC) [Ratio] 16.6 % High 11.0 - 14.8 % [facility] Hematocrit (Bld) [Volume fraction] 40.8 % 39.0 - 49.0 % [facility] Hemoglobin (Bld) [Mass/Vol] 13.6 g/dL 13.5 - 17.5 g/dL [facility] Interpretation and review of laboratory results Abnormal [facility] Lymphocytes (Bld) [#/Vol] 0.80 10*3/uL Low [facility] Lymphocytes/100 WBC (Bld) 17.5 % Low 22.0 - 44.0 % [facility] MCH (RBC) [Entitic mass] 30.1 pg [facility] MCHC (RBC) [Mass/Vol] 33.3 g/dL 32.0 - 36.0 g/dL [facility] MCV (RBC) [Entitic vol] 90.4 fL T [facility] Monocytes (Bld) [#/Vol] 0.50 10*3/uL [facility] Monocytes/100 WBC (Bld) 12.3 % 4.0 - 23.0 % [facility] Neutrophils (Bld) [#/Vol] 2.90 10*3/uL [facility] Neutrophils/100 WBC (Bld) 65.3 % 40.0 - 70.0 % [facility] Platelet mean volume (Bld) [Entitic vol] 8.6 fL [facility] th Platelets (Bld) [#/Vol] 71 10*3/uL Low [facility] Comment on above: Results confirmed by slide review. RBC (Bld) [#/Vol] 4.51 10*6/uL [facility] WBC (Bld) [#/Vol] 4.5 10*3/uL Low [facility] Magnesiumon 04-13-2022 Magnesium [Mass/Vol] 1.8 mg/dL 1.8 - 2 .5 mg/dL [facility] Magnesium [Mass/Vol]on 04-13 Interpretation and review of laboratory results Normal [facility] No Panel Informationon 04-13 [facility] SARS-CoV-2 (COVID-19) RNA NA A+probe Ql (Resp)on 04-13-2022 Interpretation and review of laboratory results Normal [facility] SARS-CoV-2 (COVID-19) RdRp gene CHARLIE+probe Ql (Resp) Not detected Not Detected [facility] Tropinin I.cardiac panel Hig h sensitivity methodon 04-13-2022 Interpretation and review of laboratory results Abnormal [facility] Troponin I.cardiac High sensitivity method [Mass/Vol] 22 ng/L High <20 [facility] Interpretation and review of laboratory results Abnormal [facility] Troponin I.cardiac High sensitivity method [Mass/Vol] 21 ng/L High <20 [facility] Interpretation and review of laboratory results Normal [facility] Troponin I.cardiac High sensitivity method [Mass/Vol] 16 ng/L <20 [facility] XR Chest 2 Viewson Nonacute study. -------- [...] By: Self Edit Transcribed Date: 04/13/2022 15:12 [facility] Radiology Study observation (narrative) [facility] XR Chest 2 ViewsOrdered By: Tanmay Vicente on 04-13-2022 [facility] Work Phone: XR Abdomen Single viewon No [...] Self Edit Transcribed Date: 03/25/2022 12:41 [facility] Radiology Study observation (narrative) [facility] XR Abdomen Single viewOrdere d By: Jean Carlos Monroy on 03-25-2022 [facility] Work Phone: XR ABDOMEN /KUB/FLAT PLATE/1 VIEWon [...] Mar 13, 2022 7:24:20 PM EDT [facility] Comment on above: Order Comment: Injur [...] Blood group B Rh(D) positive [facility] ABO and Rh group Nom (Bld) ABO/Rh Verification [facility] Comment on above: Patient's ABO/Rh is verified. [facility] APTTOrdered By: Sukhwinder Villalobos on 04-22-2021 aPTT Coag (Bld) [Time] 33 s [facility] Basic metabolic 2000 panelOr dered By: Sukhwinder Villalobos on 04-22-2021 Anion gap [Moles/Vol] 16 mmol/L 10 - 2 0 mmol/L [facility] Calcium [Mass/Vol] 8.9 mg/dL 8.4 - 10. 2 mg/dL [facility] Chloride [Moles/Vol] 102 mmol/L 98 - 10 8 mmol/L [facility] Creatinine [Mass/Vol] 0.52 mg/dL 0.50 - 1.30 [facility] GFR/1.73 sq M.predicted CKD-EPI (S/P/Bld) [Vol rate/Area] 132 >=60 mL/min/1.7 3 m2 [facility] Glucose [Mass/Vol] 106 mg/dL High 65 - 99 mg/dL [facility] HCO3 [Moles/Vol] 24 mmol/L 21 - 32 mmol/L [facility] Interpretation and review of laboratory results Abnormal [facility] Potassium [Moles/Vol] 4.2 mmol/L 3.5 - 5.1 mmol/L [facility] Sodium [Moles/Vol] 138 mmol/L 135 - 145 mmol/L [facility] Urea nitrogen [Mass/Vol] 8 mg/dL 8 - 25 mg/dL [facility] Urea nitrogen/Creatinine [Mass ratio] 15.4 mg/mg [facility] The eGFR should be u sed for monitoring renal function only and not for medication dosing. [facility] Blood type and Indirect anti body screen panel (Bld)Ordered By: Sukhwinder Villalobos on 04-22-2021 ABO and Rh group Nom (Bld) Blood group B Rh(D) positive [facility] Blood group antibody screen Ql Negative [facility] Specimen Expires 04/25/2021 23:59 EST [facility] CBC WITH AUTO DIFFERENTIALOr dered By: Sukhwinder Villalobos on 04-22-2021 Basophils (Bld) [#/Vol] 0.08 10*3/uL [facility] Basophils/100 WBC (Bld) 1.8 % [facility] Eosinophils (Bld) [#/Vol] 0.29 10*3/uL [facility] Eosinophils/100 WBC (Bld) 6.4 % [facility] Erythrocyte distribution width (RBC) [Entitic vol] 15.5 % High 11.6 - 14.8 % [facility] Hematocrit (Bld) [Volume fraction] 43.8 % 41.0 - 53.0 % [facility] Hemoglobin (Bld) [Mass/Vol] 14.2 g/dL 13.5 - 17.5 g/dL [facility] Immature granulocytes (Bld) [#/Vol] 0.02 10*3/uL [facility] Immature granulocytes/100 WBC (Bld) 0.40 % [facility] Comment on above: The IG parameter is the percentage of metamyelocytes, myelocytes and promyelocytes. An immature granulocyte count (IG) of 1% or more suggests the possibility of infection, an IG count of 3% is very likely related to an infection. Interpretation and review of laboratory results Abnormal [facility] Lymphocytes (Bld) [#/Vol] 1.19 10*3/uL [facility] Lymphocytes/100 WBC (Bld) 26.2 % [facility] MCH (RBC) [Entitic mass] 30.1 pg 26.0 - 34.0 pg [facility] MCHC (RBC) [Mass/Vol] 32.4 g/dL 31.0 - 37.0 g/dL [facility] MCV (RBC) [Entitic vol] 93.0 fL 80.0 - 100.0 fL [facility] Monocytes (Bld) [#/Vol] 0.76 10*3/uL [facility] Monocytes/100 WBC (Bld) 16.7 % [facility] Neutrophils (Bld) [#/Vol] 2.20 10*3/uL [facility] Neutrophils/100 WBC (Bld) 48.5 % [facility] Nucleated RBC (Bld) [#/Vol] 0.00 10*3/uL [facility] Nucleated RBC/100 WBC (Bld) [Ratio] 0.0 % [facility] Platelet mean volume (Bld) [Entitic vol] 10.6 fL 9.4 - 12.4 fL [facility] Platelets (Bld) [#/Vol] 78 10*3/uL Low [facility] Comment on above: Results checked RBC (Bld) [#/Vol] 4.71 10*6/uL [facility] WBC (Bld) [#/Vol] 4.54 10*3/uL [place] Glucose (Bld) [Mass/Vol]Orde red By: Sukhwinder Villalobos on 04-22-2021 Glucose [Mass/Vol] 102 mg/dL High 65 - 99 mg/dL [facility] Interpretation and review of laboratory results Abnormal [facility] Glucose [Mass/Vol] 100 mg/dL High 65 - 99 mg/dL [facility] Interpretation and review of laboratory results Abnormal [facility] INR Coag (PPP) [Relative abdulkadir e]Ordered By: Sukhwinder Villalobos on 04-22-2021 Interpretation and review of laboratory results Abnormal [facility] PT Coag (PPP) [Time] 15.2 s High [facility] During the induction phase of oral anticoagulation, the INR may not reflect the anticoagulation status of the patient. Therapeutic ranges for INR's are: Most clinical situations: INR 2.0-3.0 Mechanical Prosthetic Valve: INR 2.5-3.5 Critical: INR >5.0 [facility] No Panel InformationOrdered By: Sukhwinder Villalobos on 04-22-2021 [facility] PT/INROrdered By: Sukhwinder berg on 04-22-2021 INR Coag (PPP) [Relative time] 1.2 {INR} High [facility] SCAN OTHER ORDERSOrdered By: Provider System on 04-22-2021 Ordered by an unspecified provider. [facility] aPTT Coag (Bld) [Time]Ordere d By: Sukhwinder Villalobos on 04-22-2021 Interpretation and review of laboratory results Normal [facility] Therapeutic range fo r APTT's is 68 - 104 seconds [facility] US ABDOMEN LIMITED STUDYon 0 03-20-2021 US [...] contour. Findings raise suspicion for possible cirrhosis. [facility] Workstation ID: [id number] Dictated by: MAURO ZEE on TueMarch 20, 2021 8:18:33 AM EDT Transcribed by: ROMY MOE on TueMarch 20, 2021 8:19:53 AM EDT Finalized by: MAURO ZEE on Sun March 22, 2021 10:22:08 PM EDT Normal [facility] Comment on above: Order Comment: Injur y/Trauma or Illness?:Illness/Other How long have you had these symptoms (acute/chronic)?:Chronic Reason for exam?:Abdominal bloating History of cancer?: Surgeries, chemotherapy, or radiation?: Type of Exam?:Initial Additional signs and symptoms?:History of fatty liver disease with possible cirrhosis per patient Alpha Fetoprotein Tumor Elieser rian 12-24-2020 AFP.tumor marker [Mass/Vol] 2.4 ng/mL Normal 0.0-9.0 [facility] Comment on above: Result Comment: REFE [...] #### 5 3962-7 #### [facility] [address] [place] [address] US Abdomen Ltdon 10-14-2020 US Abdomen limited [...] hepatic morphology. 2. Nonvisualization of the pancreas. [facility] thanks you for the opportunity to care for your patient. Workstation ID: [id number] - [id number] FINAL REPORT Dictated By: Rudi Joshi MD 10/14/2020 11:22 Assigned Physician: Rudi Joshi MD Reviewed and Electronically Signed By: Rudi Joshi MD 10/14/2020 11:24 Transcribed by: NIMO 10/14/2020 11:22 Normal [facility] Glucose POCT (Uploaded)on Glucose [Mass/Vol] 87 mg/dL Normal 70-99 [facility] Comment on above: Result Comment: Samantha [...] Jose June/Sex: 1980 Male Med Rec #: [id number] Physician: Financial #: [id number] Pt. Type: I Room/Bed: / Admit/Disch: 06/26/20 [...] Lani Wang Role Performed Primary Surgeon Anesthesiologist chemist internship Time In 06/26/20 13:58:00 06/26/20 13:58:00 06/26/20 13:58:00 Time Out 06/26/20 14:13:00 06/26/20 14:13:00 06/26/20 14:13:00 Procedure Egd with Biopsy_(N/A) Egd with Biopsy_(N/A) Egd with Biopsy_(N/A) Attendee Comment Relief Reason Last Modified By: Lani Villareal RN, RN , Lani Forbes RN 06/26/20 14:20:23 06/26/20 14:20:23 06/26/20 14:20:23 Entry 4 Case Attendee Jazmyn Meadows Role Performed [employer]. Glass Cut Off Supervisor Time In 06/26/20 13:58:00 Time Out 06/26/20 14:13:00 Procedure Egd with Biopsy_(N/A) Attendee Comment Relief Reason Last Modified By: Lani Villareal RN 06/26/20 14:20:23 CO MCE Endo General Case Assistant Administrator 1 OR CO E EN 04 ASA [...] By: Lani Villareal RN 06/26/20 14:21 Normal [facility] Patient Summaryon 06-26-2020 Patient Summary PATIENT DISCHARGE INSTRUCTIONS If you are having an emergency and are not able to reach your physician, CALL 911 or go to the nearest emergency room and take this document with you. [facility] 06/26/20 14:28 [address] [place]. [address] PATIENT INFORMATION Name: LEON RIDER Address: [address] [place] [address] [place] [address] Age: 40 Years Phone: [phone] : 1980 12:00 MRN: [id number] Sex: Male Race: White Ethnicity: Not Hispan/Lat Admitted From: Clinic or [facility] Medical Service: Gastroenterology Nurse Unit/Bed: ([place]) [facility] N/A Admit Date: 06/26/2020 12:03 PCP: [...] doses are changed, or new medications (including ygra-llf-xswnrzp products) are added. Ask your doctor if [...] suicide hotline, anytime day or night, at 2-125-356-TDKO. Important information about accessing your health information through the [facility] patient portal If you initiated the self-registration process for [facility] during your stay, please check your personal email for an invitation to enroll in [facility] and complete the steps outlined in the email. If you would prefer to enroll while in the hospital, ask a member of your care team. We would be happy to assist you. If you have already enrolled in [facility], go to [email or web address].[facility], beachwoodKindstar Global ([place]) Medicine Technologyherkimer memorial [email or web address] to login and access your health information. Thank you for choosing [facility]. PATIENT EDUCATION PATIENT DISCHARGE INSTRUCTION Signature Page for: LEON RIDER Date/Time: 06/26/2020 14:28:21 A Clinician has explained the information on my discharge instructions and has provided me with a copy. My questions have been answered to my satisfaction. Patient Signature Date/Time Responsible Party Date/Time Relationship to Patient ____ Clinician Signature Date/Time Normal [facility] Post PACU Nursingon 06-26-20 Post PACU Nursing CO MCE Endo PACU Nursing Record Summary Primary Physician: Dandy Healy MD Finalized Date/Time: 06/26/20 15:04:08 Pt. Name: LEON RIDER Jose June/Sex: 1980 Male Med Rec #: [id number] Physician: Financial #: [id number] Pt. Type: I Room/Bed: / Admit/Disch: 06/26/20 [...] 15:03 Lani Villareal RN 06/26/20 15:04 Normal [facility] PreOp Nursingon 06-26-2020 PreOp Nursing CO [facility] Endo PreOp Nursing Record Summary Primary Physician: Dandy Healy MD Finalized Date/Time: 06/26/20 15:07:13 Pt. Name: LEON RIDER /Sex: 1980 Male Med Rec #: [id number] Physician: Financial #: [id number] Pt. Type: I Room/Bed: / Admit/Disch: 06/26/20 [...] By: Angelic Enrique RN 06/26/20 15:07 Normal [facility] Surgical Pathology Final Rep [facility] 06-26-2020 Pathology study LEON RIDER [id number] [id number] M [id number] RM/BD ORDERING PHYSICIAN: DANDY HEALY RESULT TRANSMITTED: [...] (ES/1C/MS/RT-BAG) Gross examination was performed at [facility]. AJB:SK 06/26/20 By: GERRY REYNA M.D. AT [facility] (Electronic Signature) MICROSCOPIC: The technical component was performed at [facility], [address] [place] [address]. Microscopic examination was performed. Case resulted at [facility]. The immunohistochemical and/or in situ hybridization tests reported here have been developed and their performance characteristics determined by the [facility] [address] [place] [address]. It has not been cleared or approved [...] END OF REPORT END OF REPORT Normal [facility] Coronavirus (COVID-19/SARS-C oV-2) [facility] 06-23-2020 SARS-CoV-2 NOTDET Normal NOTDET [facility] Comment on above: Result Comment: This test was performed via the Aptima SARS-CoV-2 Assay (Loterity System) and has been authorized by the FDA under an Emergency Use Authorization (EUA). The assay is validated for nasopharyngeal (DIRECTOR OCCUPATIONAL), nasal, and oropharyngeal (OP) swab specimens. The entertainment usher's stated Limit of Detection is 0.01 TCID50/mL [...] www.cdc.gov/coronavirus. Performed By: #### 9 4532-9x5 #### [facility] [address] [place], [place] [id number] Alpha Fetoprotein Tumor Elieser rian 06-18-2020 AFP.tumor marker [Mass/Vol] 3.2 ng/mL Normal 0.0-9.0 [facility] Comment on above: Result Comment: REFE [...] immunoassay method. Performed By: #### 5 3962-7 ####[facility] [address] [place] [address] CBC with Differentialon 08-0 5-2020 Basophils (Bld) [#/Vol] 0.00 thou/mcL Normal 0.00-0.20 [facility] Comment on above: Performed By: #### 5 7021-8 #### [facility] [address] [place] [address] Basophils/100 WBC (Bld) 0.5 % Normal 0.0-2.0 [facility] Comment on above: Performed By: #### 5 7021-8 #### [facility] [address] [place] [address]65[address] Eosinophils (Bld) [#/Vol] 0.30 thou/mcL Normal 0.00-0.70 [facility] Comment on above: Performed By: #### 5 7021-8 #### [facility] [address] [place] [address] 48234 Eosinophils/100 WBC (Bld) 5.5 % Normal 0.0-7.0 [facility] Comment on above: Performed By: #### 5 7021-8 #### [facility] [address] [place] [address]608 Erythrocyte distribution width (RBC) [Entitic vol] 17.1 % High 11.0-14.8 [facility] Comment on above: Performed By: #### 5 7021-8 #### [facility] [address] [place] [address]201 Hematocrit (Bld) [Volume fraction] 42.0 % Normal 39.0-49.0 [facility] Comment on above: Performed By: #### 5 7021-8 #### [facility] [address] [place] [address] 88749 Hemoglobin (Bld) [Mass/Vol] 14.0 g/dL Normal 13.5-17.5 [facility] Comment on above: Performed By: #### 5 7021-8 #### [facility] [address] [place] [address] 85287 Lymphocytes (Bld) [#/Vol] 1.10 thou/mcL Normal 1.00-4.80 [facility] Comment on above: Performed By: #### 5 7021-8 #### [facility] [address] [place] [address] 02558 Lymphocytes/100 WBC (Bld) 24.2 % Normal 22.0-44.0 [facility] Comment on above: Performed By: #### 5 7021-8 #### [facility] [address] [place] [address] 91605 MCH (RBC) [Entitic mass] 29.7 Picograms Normal 27.0-34.0 [facility] Comment on above: Performed By: #### 5 7021-8 #### [facility] [address] [place] [address] 71716 MCHC (RBC) [Mass/Vol] 33.4 g/dL Normal 32.0-36.0 [facility] Comment on above: Performed By: #### 5 7021-8 #### [facility] [address] [place] [address] 39244 MCV (RBC) [Entitic vol] 88.8 fL Normal 80.0-97.0 [facility] Comment on above: Performed By: #### 5 7021-8 #### [facility] [address] [place] [address] 32470 Monocytes (Bld) [#/Vol] 0.90 thou/mcL Normal 0.00-0.90 [facility] Comment on above: Performed By: #### 5 7021-8 #### [facility] [address] [place] [address] 82236 Monocytes/100 WBC (Bld) 18.2 % High 0.0-12.0 [facility] Comment on above: Performed By: #### 5 7021-8 #### [facility] [address] [place] [address] 61467 Neutrophils (Bld) [#/Vol] 2.40 thou/mcL Normal 1.80-7.70 [facility] Comment on above: Performed By: #### 5 7021-8 #### [address] [address] Neutrophils/100 WBC (Bld) 51.6 % Normal 40.0-70.0 [facility] Comment on above: Performed By: #### 5 7021-8 #### [address] [address] Platelet mean volume (Bld) [Entitic vol] 9.9 fL Normal 6.2-12.1 [facility] Comment on above: Performed By: #### 5 7021-8 #### [address] [address] Platelets (Bld) [#/Vol] 76 thou/mcL Low 142-424 [facility] Comment on above: Result Comment: Resu lt confirmed by slide review. Performed By: #### 5 7021-8 #### [address] [address] RBC (Bld) [#/Vol] 4.72 million/mcL Normal 4.30-5.70 [facility] Comment on above: Performed By: #### 5 7021-8 #### [address] [address] WBC (Bld) [#/Vol] 4.7 thou/mcL Normal 4.6-10.2 [facility] Comment on above: Performed By: #### 5 7021-8 #### [facility] [address] [place] [address] Hepatic Function Panelon Albumin [Mass/Vol] 3.1 g/dL Low 3.5-4.8 [facility] Comment on above: Performed By: #### 2 4324-3 #### [facility] [address] [place] [address] ALP [Catalytic activity/Vol] 104 Units/L High 32-91 [facility] Comment on above: Performed By: #### 2 5-3 #### [facility] [address] [place] [address] ALT [Catalytic activity/Vol] 35 Units/L Normal 14-63 [facility] Comment on above: Performed By: #### 2 4324-3 #### [facility] [address] [place] [address] AST [Catalytic activity/Vol] 42 Units/L High 15-41 [facility] Comment on above: Performed By: #### 2 5-3 #### [facility] [address] [place] [address] Bilirubin [Mass/Vol] 1.2 mg/dL Normal 0.3-1.2 [facility] Comment on above: Performed By: #### 2 4324-3 #### [facility] [address] [place] [address] Bilirubin.direct [Mass/Vol] 0.3 mg/dL Normal 0.1-0.5 [facility] Comment on above: Performed By: #### 2 5-3 #### [facility] [address] [place] [address] Bilirubin.indirect [Mass/Vol] 0.9 mg/dL Normal 0.0-1.0 [facility] Comment on above: Performed By: #### 2 5-3 #### [facility] [address] [place] [address] Protein [Mass/Vol] 7.0 g/dL Normal 6.1-7.9 [facility] Comment on above: Performed By: #### 2 5-3 #### [facility] [address] [place] [address] Vital Signs Date Time Vital Sign Value Performing Clinician Facility 08-21-2025 20:46-0400 Body temperature 97.2 [degF] Alis Duran MD Work Phone: 6(627)804-021412 [place] [address] 08-21-2025 20:46-0400 Diastolic blood pressure 50 mm[Hg] Alis Duran MD Work Phone: 3(626)217-078012 [place] [address] 08-21-2025 20:46-0400 Heart rate 73 /min Alis Duran MD Work Phone: 4(161)136-757712 [place] [address] 08-21-2025 20:46-0400 Respiratory rate 18 /min Alis Druan MD Work Phone: 8(239)678-163512 [place] [address] 08-21-2025 20:46-0400 SaO2% (BldA) [Mass fraction] 98 % Alis Duran MD Work Phone: 8(007)011-839512 [place] [address] 08-21-2025 20:46-0400 Systolic blood pressure 109 mm[Hg] Alis Duran MD Work Phone: 9(697)164-356312 [place] [address] 08-21-2025 16:37-0400 Body mass index (BMI) [Ratio] 43.5 kg/m2 Alis Duran MD Work Phone: 1(386)641-610812 [place] [address] 08-21-2025 16:37-0400 Body weight 141.7 kg Alis Duran MD Work Phone: 4(163)829-423512 [place] [address] 08-21-2025 16:27-0400 Body height 180.34 cm Alis Duran MD Work Phone: 3(670)925-597512 [place] [address] 08-19-2025 14:48-0400 Body height 180.34 cm Alis Duran MD Work Phone: 9(002)687-423812 [place] [address] 08-19-2025 14:48-0400 Body mass index (BMI) [Ratio] 43.4 kg/m2 Alis Duran MD Work Phone: 9(300)209-648012 [place] [address] 08-19-2025 14:48-0400 Body temperature 98.6 [degF] Alis Duran MD Work Phone: 7(256)679-110268 [place] [address] 08-19-2025 14:48-0400 Body weight 141.23 kg Alis Duran MD Work Phone: 2(549)735-853012 [place] [address] 08-19-2025 14:48-0400 Diastolic blood pressure 68 mm[Hg] Alis Duran MD Work Phone: 8(419)827-079612 [place] [address] 08-19-2025 14:48-0400 Heart rate 82 /min Alis Duran MD Work Phone: 1(090)347-993912 [place] [address] 08-19-2025 14:48-0400 Respiratory rate 18 /min Alis Duran MD Work Phone: 2(896)560-789012 [place] [address] 08-19-2025 14:48-0400 SaO2% (BldA) [Mass fraction] 95 % Alis Duran MD Work Phone: 5(249)771-735412 [place] [address] 08-19-2025 14:48-0400 Systolic blood pressure 116 mm[Hg] Alis Duran MD Work Phone: 5(944)378-271912 [place] [address] 08-12-2025 08:24-0400 Body height 180.34 cm Alis Duran MD Work Phone: 6(911)548-383912 [place] [address] 08-12-2025 08:24-0400 Body mass index (BMI) [Ratio] 44.9 kg/m2 Alis Duran MD Work Phone: 4(435)802-698412 [place] [address] 08-12-2025 08:24-0400 Body temperature 98.5 [degF] Alis Duran MD Work Phone: 4(038)756-624992 [address] 08-12-2025 08:24-0400 Body weight 146.08 kg Alis Duran MD Work Phone: 8(629)029-702512 [place] [address] 08-12-2025 08:24-0400 Diastolic blood pressure 66 mm[Hg] Alis Duran MD Work Phone: 8(505)932-999812 [place] [address] 08-12-2025 08:24-0400 Heart rate 78 /min Alis Duran MD Work Phone: 5(851)945-132268 [place] [address] 08-12-2025 08:24-0400 Respiratory rate 18 /min Alis Duran MD Work Phone: [facility] 08-12-2025 08:24-0400 SaO2% (BldA) [Mass fraction] 96 % Alis Duran MD Work Phone: [facility] 08-12-2025 08:24-0400 Systolic blood pressure 108 mm[Hg] Alis Duran MD Work Phone: 9(761)255-403312 [place] [address] 07-26-2025 15:04-0400 Body temperature 98.3 [degF] Alis Duran MD Work Phone: 8(430)347-302012 [place] [address] 07-26-2025 15:04-0400 Diastolic blood pressure 54 mm[Hg] Alis Duran MD Work Phone: 4(206)403-505812 [place] [address] 07-26-2025 15:04-0400 Heart rate 82 /min Alis Duran MD Work Phone: 9(287)889-385512 [place] [address] 07-26-2025 15:04-0400 Inhaled oxygen flow rate 2 L/min Alis Duran MD Work Phone: 0(729)808-022112 [place] [address] 07-26-2025 15:04-0400 Respiratory rate 16 /min Alis Duran MD Work Phone: 0(472)983-686212 [place] [address] 07-26-2025 15:04-0400 SaO2% (BldA) [Mass fraction] 92 % Alis Duran MD Work Phone: 1(565)910-434692 [address] 07-26-2025 15:04-0400 Systolic blood pressure 114 mm[Hg] Alis Duran MD Work Phone: 2(511)443-568112 [place] [address] 07-26-2025 10:23-0400 Body height 180.34 cm Alis Duran MD Work Phone: 3(595)690-305512 [place] [address] 07-26-2025 10:23-0400 Body weight 177 kg Alis Duran MD Work Phone: 9(750)645-221612 [place] [address] 07-26-2025 03:45-0400 Body temperature 98.4 [degF] Alis Duran MD Work Phone: [facility] 07-26-2025 03:45-0400 Diastolic blood pressure 60 mm[Hg] Alis Duran MD Work Phone: [facility] 07-26-2025 03:45-0400 Heart rate 70 /min Alis Duran MD Work Phone: [facility] 07-26-2025 03:45-0400 Respiratory rate 16 /min Alis Duran MD Work Phone: [facility] 07-26-2025 03:45-0400 SaO2% (BldA) [Mass fraction] 96 % Alis Duran MD Work Phone: [facility] 07-26-2025 03:45-0400 Systolic blood pressure 101 mm[Hg] Alis Duran MD Work Phone: [facility] 07-26-2025 03:18-0400 Body mass index (BMI) [Ratio] 54.4 kg/m2 Alis Duran MD Work Phone: [facility] 07-26-2025 03:18-0400 Body weight 177 kg Alis Duran MD Work Phone: [facility] 07-22-2025 10:05-0400 Body height 180.34 cm Alis Duran MD Work Phone: [facility] 07-21-2025 12:11-0400 Body temperature 99.2 [degF] Alis Duran MD Work Phone: [facility] 07-21-2025 12:11-0400 Diastolic blood pressure 49 mm[Hg] Alis Duran MD Work Phone: [facility] 07-21-2025 12:11-0400 Heart rate 99 /min Alis Duran MD Work Phone: [facility] 07-21-2025 12:11-0400 Respiratory rate 15 /min Alis Duran MD Work Phone: [facility] 07-21-2025 12:11-0400 SaO2% (BldA) [Mass fraction] 99 % Alis Duran MD Work Phone: [facility] 07-21-2025 12:11-0400 Systolic blood pressure 129 mm[Hg] Alis Duran MD Work Phone: 2(718)100-049592 [address] 07-21-2025 10:32-0400 Body mass index (BMI) [Ratio] 54.1 kg/m2 Alis Duran MD Work Phone: 0(780)122-786392 [address] 07-21-2025 10:32-0400 Body weight 176.2 kg Alis Duran MD Work Phone: 4(414)366-728212 [place] [address] 07-21-2025 09:08-0400 Body height 180.34 cm Alis Duran MD Work Phone: 9(721)495-368612 [place] [address] 01-28-2025 14:52-0400 Body height 180.34 cm Alis Duran MD Work Phone: 3(427)095-157912 [place] [address] 01-28-2025 14:52-0400 Body mass index (BMI) [Ratio] 50.3 kg/m2 Alis Duran MD Work Phone: 8(649)988-548792 [address] 01-28-2025 14:52-0400 Body temperature 97.6 [degF] Alis Duran MD Work Phone: 9(404)341-948612 [place] [address] 01-28-2025 14:52-0400 Body weight 163.74 kg Alis Duran MD Work Phone: 3(315)221-809868 [place] [address] 01-28-2025 14:52-0400 Diastolic blood pressure 82 mm[Hg] Alis Duran MD Work Phone: 2(481)858-993892 [address] 01-28-2025 14:52-0400 Heart rate 82 /min Alis Duran MD Work Phone: [facility] 01-28-2025 14:52-0400 Respiratory rate 18 /min Alis Duran MD Work Phone: [facility] 01-28-2025 14:52-0400 SaO2% (BldA) [Mass fraction] 97 % Alis Duran MD Work Phone: [facility] 01-28-2025 14:52-0400 Systolic blood pressure 140 mm[Hg] Alis Duran MD Work Phone: [facility] 04-23-2024 08:20-0400 Body height 179.07 cm Fiona Satkowiak PA-C [facility] 04-23-2024 08:20-0400 Body mass index (BMI) [Ratio] 48.07 kg/m2 Fiona Satkowiak PA-C [facility] 04-23-2024 08:20-0400 Body weight 154.13 kg Fiona Satkowiak PA-C [facility] 03-22-2024 09:33-0400 Body mass index (BMI) [Ratio] 51.6 kg/m2 Zack Vigil MD Work Phone: [facility] 03-22-2024 09:33-0400 Body weight 165.47 kg Zack Vigil MD Work Phone: [facility] 03-22-2024 09:33-0400 Diastolic blood pressure 80 mm[Hg] Zack Vigil MD Work Phone: [facility] 03-22-2024 09:33-0400 Heart rate 84 /min Zack Vigil MD Work Phone: [facility] 03-22-2024 09:33-0400 Systolic blood pressure 130 mm[Hg] Zack Vigil MD Work Phone: [facility] 09-25-2023 04:18-0500 Diastolic blood pressure 80 mm[Hg] Bernabe Dooley MD Work Phone: [facility] 09-25-2023 04:18-0500 Heart rate 82 /min Bernabe Dooley MD Work Phone: [facility] 09-25-2023 04:18-0500 Respiratory rate 16 /min Bernabe Dooley MD Work Phone: [facility] 09-25-2023 04:18-0500 SaO2% (BldA) [Mass fraction] 98 % Bernabe Dooley MD Work Phone: [facility] 09-25-2023 04:18-0500 Systolic blood pressure 145 mm[Hg] Bernabe Dooley MD Work Phone: [facility] 09-24-2023 18:17-0500 Body temperature 98.01 [degF] Bernabe Dooley MD Work Phone: [facility] 09-24-2023 18:11-0500 Body height 180.3 cm Bernabe Dooley MD Work Phone: [facility] 09-24-2023 18:11-0500 Body mass index (BMI) [Ratio] 51.6 kg/m2 Bernabe Dooley MD Work Phone: [facility] 09-24-2023 18:11-0500 Body weight 167.83 kg Bernabe Dooley MD Work Phone: [facility] 02-16-2023 09:50-0400 Diastolic blood pressure 66 mm[Hg] [address] 02-16-2023 09:50-0400 Heart rate 86 /min [address] 02-16-2023 09:50-0400 Respiratory rate 15 /min [address] 02-16-2023 09:50-0400 SaO2% (BldA) [Mass fraction] 97 % [address] 02-16-2023 09:50-0400 Systolic blood pressure 140 mm[Hg] [address] 02-16-2023 09:25-0400 Body temperature 98.6 [degF] [address] 02-16-2023 09:00-0400 Body height 180.[address] 02-16-2023 09:00-0400 Body mass index (BMI) [Ratio] 52.09 kg/m2 [address] 02-16-2023 09:00-0400 Body weight 169.[address] 12-23-2022 11:10-0500 Diastolic blood pressure 92 mm[Hg] [address] 12-23-2022 11:10-0500 Heart rate 76 /min [address] 12-23-2022 11:10-0500 Respiratory rate 15 /min [address] 12-23-2022 11:10-0500 SaO2% (BldA) [Mass fraction] 97 % [address] 12-23-2022 11:10-0500 Systolic blood pressure 156 mm[Hg] [address] 12-23-2022 10:41-0500 Body temperature 99.1 [degF] [address] 12-23-2022 09:15-0500 Body height 180.[address] 12-23-2022 09:15-0500 Body mass index (BMI) [Ratio] 53.44 kg/m2 [address] 12-23-2022 09:15-0500 Body weight 173.[address] 10-27-2022 18:15-0500 Diastolic blood pressure 87 mm[Hg] [address] 10-27-2022 18:15-0500 Heart rate 79 /min [address] 10-27-2022 18:15-0500 Respiratory rate 15 /min [address] 10-27-2022 18:15-0500 SaO2% (BldA) [Mass fraction] 100 % [address] 10-27-2022 18:15-0500 Systolic blood pressure 152 mm[Hg] [address] 10-27-2022 17:50-0500 Body temperature 97.5 [degF] [address] 10-26-2022 12:00-0500 Body height 180.[address] 10-26-2022 12:00-0500 Body mass index (BMI) [Ratio] 53 kg/m2 [address] 10-26-2022 12:00-0500 Body weight 172.[address] 04-14-2022 15:29-0400 Body temperature 97.9 [degF] Tye Holbrook MD Work Phone: [facility] 04-14-2022 15:29-0400 Diastolic blood pressure 83 mm[Hg] Tye Holbrook MD Work Phone: [facility] 04-14-2022 15:29-0400 Heart rate 94 /min Tye Holbrook MD Work Phone: [facility] 04-14-2022 15:29-0400 SaO2% (BldA) [Mass fraction] 94 % Tye Holbrook MD Work Phone: [facility] 04-14-2022 15:29-0400 Systolic blood pressure 152 mm[Hg] Tye Holbrook MD Work Phone: [facility] [employer] 04-14-2022 14:07-0400 Body height 180.3 cm Tye Holbrook MD Work Phone: [facility] 04-14-2022 14:07-0400 Body mass index (BMI) [Ratio] 51.19 kg/m2 Tye Holbrook MD Work Phone: [facility] 04-14-2022 14:07-0400 Body weight 166.47 kg Tye Holbrook MD Work Phone: [facility] 04-14-2022 03:00-0400 Respiratory rate 18 /min Tye Holbrook MD Work Phone: [facility] 04-22-2021 08:50-0400 Body temperature 98.29 [degF] Sukhwinder Villalobos MD Work Phone: [facility] 04-22-2021 08:50-0400 Diastolic blood pressure 65 mm[Hg] Sukhwinder Villalobos MD Work Phone: [facility] 04-22-2021 08:50-0400 Heart rate 94 /min Sukhwinder Villalobos MD Work Phone: [facility] 04-22-2021 08:50-0400 Respiratory rate 13 /min Sukhwinder Villalobos MD Work Phone: [facility] 04-22-2021 08:50-0400 SaO2% (BldA) [Mass fraction] 92 % Sukhwinder Villalobos MD Work Phone: [facility] 04-22-2021 08:50-0400 Systolic blood pressure 117 mm[Hg] Sukhwinder Villalobos MD Work Phone: [facility] 04-22-2021 06:38-0400 Body height 180.3 cm Sukhwinder Villalobos MD Work Phone: [facility] 04-22-2021 06:38-0400 Body mass index (BMI) [Ratio] 53.35 kg/m2 Sukhwinder Villalobos MD Work Phone: [facility] 04-22-2021 06:38-0400 Body weight 173.5 kg Sukhwinder Villalobos MD Work Phone: [facility] Encounters Encounter Date Encounter Type Care Provider Facility Start: 09-19-2025 ambulatory León Mccray Facility:[facility] Start: 09-16-2025 ambulatory Myriam Aguilar Facility:[facility] Start: 09-09-2025 End: 09-09-2025 ambulatory Alis Duran Facility:[facility] Start: 08-21-2025 End: 08-21-2025 Emergency department patient visit Alis Duran MD Work Phone: -Emergency Department Work Phone: Start: 08-21-[address] Myriam Aguilar DO -Physical Therapy Work Phone: Start: 08-19-2025 End: 08-19-[address] León Mccray MD -[facility] Work Phone: Start: 08-19-2025 End: 08-19-2025 ambulatory Alis Duran MD Work Phone: -[facility] Start: 08-13-[address] Myriam Aguilar DO -Physical Therapy Work Phone: Start: 08-13-2025 End: 08-13-2025 ambulatory Alis Duran MD Work Phone: -[facility] Start: 08-13-2025 End: 08-13-[address] León Mccray MD -[facility] Work Phone: Start: 08-12-[address] León Mccray MD -[facility] Start: 08-12-2025 End: 08-12-[address] León Mccray MD -[facility] Work Phone: Start: 08-12-2025 End: 08-13-2025 ambulatory Alis Duran MD Work Phone: -[facility] Start: 08-06-2025 Non-patient / Non-visit Velconnort Anahiang [facility] Work Phone: Start: 08-06-2025 [facility] Start: 08-02-2025 End: 08-02-2025 ambulatory Alis Duran MD Work Phone: -[facility] Start: 08-02-2025 End: 08-02-[address] Alis Duran MD -[facility] Start: 08-02-2025 End: 08-02-2025 ambulatory Alis Duran Facility:[facility] Start: 07-26-2025 Non-patient / Non-visit Dr. Myriam Aguilar DO [facility] Work Phone: Start: 07-25-2025 Non-patient / Non-visit Dr. Myriam Aguilar DO [facility] Work Phone: Start: 07-24-2025 Non-patient / Non-visit Dr. Timoteo Cooper MD [facility] Work Phone: Start: 07-23-2025 Non-patient / Non-visit Dr. Timoteo Cooper MD [facility] Work Phone: Start: 07-22-2025 Non-patient / Non-visit Dr. Timoteo Cooper MD [facility] Work Phone: Start: 07-22-2025 ambulatory Rosalee Kofi Facility:[facility] Start: 07-22-2025 Non-patient / Non-visit Dr. Rosalee hawkins MD -[facility] Start: 07-21-2025 ambulatory Timoteo Cooper Facility: [facility] Start: 07-21-2025 End: 07-26-2025 Evaluation and management of inpatient Dr. Timoteo Cooper MD -Pro[facility] Care Unit Work Phone: Start: 07-19-2025 End: 07-19-2025 ambulatory Alis Duran MD Work Phone: -[facility] Start: 07-19-2025 End: 07-19-2025 Patient encounter procedure Yusef Mccoy DIRECTOR OCCUPATIONAL-C -Cardiovascular Services Work Phone: Start: 07-19-2025 End: 07-19-2025 ambulatory Yusef Trimblegirma DIRECTOR OCCUPATIONAL Facility:[facility] Start: 04-29-2025 End: 04-29-2025 ambulatory Alis Duran MD Work Phone: [facility] Work Phone: Start: 04-29-2025 End: 04-29-[address] Alis Duran MD -[facility] Start: 04-29-2025 End: 04-29-2025 ambulatory Alis Roger Facility:[facility] Start: 01-28-2025 End: 01-28-[address] Lorie Willson MD -[facility] Work Phone: Start: 01-28-2025 End: 01-28-2025 ambulatory Alis Duran Facility:[facility] Start: 04-23-2024 End: 04-23-2024 Office outpatient visit 15 minutes Fiona Beckman Work Phone: [facility] Start: 03-22-2024 ambulatory ZACK Woodall [facility] Start: 03-22-2024 End: 03-22-2024 Office outpatient visit 25 minutes Zack Vigil MD Work Phone: [facility] Comment on above: Hyperlipidemia, unsp ecified hyperlipidemia type (Primary Dx); Primary hypertension; Cirrhosis of liver without ascites, unspecified hepatic cirrhosis type (CMS/HCC) (HCC); Type 2 diabetes mellitus without complication, without long-term current use of insulin (CMS/HCC) (HCC) Start: 03-20-2024 ambulatory ZACK MUSA [facility] Start: 01-20-2024 End: 01-20-2024 Office outpatient visit 15 minutes Fiona Beckman Work Phone: [facility] Start: 01-19-2024 End: 01-19-2024 Encounter identifier Nathalia Angela Work Phone: [facility] Start: 01-17-2024 End: 01-17-2024 Encounter identifier Nathalia LunaNote Work Phone: [facility] Start: 01-12-2024 End: 01-12-2024 Encounter identifier Nathalia LunaNote Work Phone: [facility] Start: 01-06-2024 End: 01-06-2024 Encounter identifier Nathalia LunaNote Work Phone: [facility] Start: 01-05-2024 End: 01-05-2024 Encounter identifier Nathalia LunaNote Work Phone: [facility] Start: 12-29-2023 End: 12-29-2023 Encounter identifier Nathalia Angela Work Phone: [facility] Start: 12-27-2023 End: 12-27-2023 Encounter identifier Nathalia Angela Work Phone: [facility] Start: 12-17-2023 ambulatory GOMEZ KURTZ [facility] Start: 12-16-2023 ambulatory ZACK VIGIL [facility] Start: 12-09-2023 [facility] Start: 12-02-2023 End: 12-02-2023 Office outpatient visit 25 minutes Tj Howell Work Phone: [facility] Start: 11-23-2023 ambulatory ZACK [facility] Start: 11-22-2023 Patient encounter procedure Zack Vigil MD Work Phone: [facility] Work Phone: Start: 11-22-2023 Encounter for genera l adult medical examination without abnormal findings ZACK [facility] Start: 11-22-2023 ambulatory ZACK [facility] Start: 11-22-2023 End: 11-22-2023 ambulatory ZACK [facility] Start: 11-22-2023 End: 11-22-2023 Encounter for general adult medical examination without abnormal findings [facility] Start: 11-02-2023 End: 11-02-2023 Encounter identifier Tj Howell Work Phone: [facility] Start: 10-12-2023 End: 10-12-2023 Office outpatient new 45 minutes Tj Howell Work Phone: [facility] Start: 09-24-2023 End: 09-25-2023 Emergency department patient visit BERNABE DOOLEY [facility] Start: 09-24-2023 End: 09-25-2023 Emergency department patient visit Bernabe Dooley MD Work Phone: [facility] Comment on above: Painless hematuria ( Primary Dx) Start: 09-24-2023 End: 09-25-2023 Evaluation and management of inpatient Bernabe Dooley MD Work Phone: [facility] Start: 02-16-2023 ambulatory VINCENT MOSES [facility] Start: 02-16-2023 End: 02-16-2023 Evaluation and management of inpatient McSa Proc Rm [address] [facility] Start: 02-16-2023 End: 02-16-2023 Subsequent hospital visit by physician Vincent Moses MD Work Phone: [facility] Comment on above: Esophageal varices w ithout bleeding, unspecified esophageal varices type (CMS/HCC) [I85.00 (ICD-10-CM)] (Primary Dx); Esophageal varices without bleeding (CMS/HCC) Start: 12-23-2022 ambulatory TADCyndi OCHOA KARINA Cyndi V~[id number] [facility] Start: 12-23-2022 End: 12-23-2022 Evaluation and management of inpatient McSa Proc Rm 02 [facility] Start: 12-23-2022 End: 12-23-2022 Subsequent hospital visit by physician Paul Mishra Work Phone: [facility] Comment on above: Esophageal varices w ithout bleeding, unspecified esophageal varices type (CMS/HCC) [I85.00 (ICD-10-CM)] (Primary Dx); Esophageal varices without bleeding (CMS/HCC) Start: 11-17-2022 ambulatory BISHOP CHO [facility] Start: 11-17-2022 End: 11-17-2022 Evaluation and management of inpatient McCe Xr A [facility] Start: 11-17-2022 End: 11-17-2022 Subsequent hospital visit by physician Judit A [facility] Comment on above: Calculus of kidney; Calculus of kidney with calculus of ureter Start: 10-27-2022 ambulatory JOCELYNE TRACEY [facility] Start: 10-27-2022 End: 10-27-2022 Evaluation and management of inpatient McCe Proc 03 [facility] Start: 10-27-2022 End: 10-27-2022 Subsequent hospital visit by physician Jocelyne Tracey MD Work Phone: [facility] Comment on above: Esophageal varices w ith bleeding (CMS/HCC) Start: 09-02-2022 ambulatory THOM ONEILL [facility] Start: 09-02-2022 End: 09-02-2022 Evaluation and management of inpatient McSam Us 1 [facility] Start: 09-02-2022 End: 09-02-2022 [facility] [address] [place] [address] Comment on above: GLASS (nonalcoholic s teatohepatitis) Start: 04-13-2022 End: 04-14-2022 Emergency department patient visit Tye Holbrook MD Work Phone: [facility] Comment on above: Dyspnea, unspecified type (Primary Dx); SOB (shortness of breath) Start: 04-13-2022 End: 04-14-2022 Evaluation and management of inpatient Tye Holbrook MD Work Phone: [facility] Start: 03-25-2022 End: 03-25-2022 [facility] Start: 03-25-2022 End: 03-25-2022 Subsequent hospital visit by physician Judit Ness [facility] Comment on above: Stone, kidney Start: 03-13-2022 End: 03-13-2022 Emergency department patient visit PAUL CARDOSO [facility] Start: 10-13-2021 Transcribe Orders Dandy Healy MD Work Phone: [facility] Comment on above: Body mass index 45.0 -49.9, adult (CMS/HCC) (Primary Dx) Start: 10-13-2021 End: 10-13-2021 Transcribe Orders Dandy Healy MD Work Phone: [facility] Start: 04-22-2021 End: 04-22-2021 ambulatory [facility] Start: 04-22-2021 End: 04-22-2021 Subsequent hospital visit by physician Sukhwinder Villalobos MD Work Phone: [facility] Start: 03-20-2021 End: 03-21-2021 ambulatory [facility] Procedures Date Procedure Procedure Detail Performing [...] Work Phone: Comment on above: Performed at: [facility] [id number] Director: Tres Cm PhD, Phone: [phone] Start: 08-12-2025 Serum inorganic phosphate measurement Alis [...] or Pulmonary Embolism (PE)CRITICAL VALUE [facility]07/19/25 1632 Apolonia Bearden.RESULTS READ BACK BY SAME. [...] Urnls dip stick/tablet reagent auto microscopy Bernabe oDoley MD Work Phone: Start: 09-24-2023 YELLOW URINE [...] DO Work Phone: Start: 09-16-2022 Colonoscopy Zack iVgil MD Work Phone: Start: 09-02-2022 Us abdominal [...] 09-16-2032 Screening for malignant neoplasm of colon [facility] Start: 09-14-2032 Screening for malignant neoplasm of colon Colorectal Cancer Screening: Colonoscopy [facility] Start: 07-23-2027 DTaP,Tdap,and Td Vaccines (2 - Td or Tdap) DTaP,Tdap,and Td Vaccines (2 - Td or Tdap) [facility] Start: 07-23-2027 Tdap/Td Vaccines: 21+ Years Tdap/Td Vaccines: 21+ Years [facility] Start: 07-23-2027 Tetanus vaccination Tetanus: Every 10yrs [facility] Start: 11-12-2026 Lipid panel Cholesterol Screening (Lipid Panel) [facility] Start: 08-21-2025 [facility] Start: 08-13-2025 Measurement of occult blood in stool specimen using immunoassay Stool Occult Blood (GIORGIO) [facility] Start: 08-13-2025 Registered Recurring Registered Recurring -Physical Therapy Work Phone: Start: 08-13-2025 Patient encounter procedure Registered Clinical [facility] Work Phone: Start: 07-26-2025 Patient discharge [facility] Start: 07-25-2025 [facility] Start: 07-22-2025 [facility] Start: 07-22-2025 Thyroid stimulating hormone measurement [facility] Start: 07-21-2025 Bacteria identified in Blood by Culture Blood Culture [facility] Start: 07-21-2025 Bacteria identified in Urine by Culture Urine Culture [facility] Start: 07-21-2025 Blood culture Blood Culture [facility] Start: 07-21-2025 Following clinical pathway protocol [facility] Start: 07-21-2025 Application of elastic bandage [facility] Start: 07-21-[address] [facility] Start: 07-21-2025 Elevation of affected extremity [facility] Start: 07-21-2025 Notification of physician [facility] Start: 07-21-2025 Patient education [facility] Start: 07-21-2025 End: 07-21-2025 [facility] Start: 07-21-2025 Continuous positive airway pressure ventilation treatment [facility] Start: 07-21-2025 Admission procedure [facility] Start: 07-21-[address] [facility] Start: 07-21-2025 Oxygen therapy [facility] Start: 07-21-2025 Ambulation without limitation [facility] Start: 07-21-2025 Assessment of risk of venous thromboembolism [facility] Start: 07-21-2025 Hospital admission, emergency, from emergency room, medical nature [facility] Start: 07-21-2025 Insertion of catheter into peripheral vein [facility] Start: 07-21-2025 Measuring intake and output [facility] Start: 07-21-2025 Providing care according to standard [facility] Start: 07-21-2025 Referral for physical therapy [facility] Start: 07-21-2025 Referral to occupational therapist [facility] Start: 07-21-2025 Referral to service [facility] Start: 07-21-2025 Verification routine [facility] Start: 07-21-2025 [facility] Start: 07-21-2025 [facility] Start: 07-21-2025 End: 07-21-2025 [facility] Start: 07-21-2025 Consultation [facility] Start: 07-21-2025 Patient referral to dietitian [facility] Start: 03-20-2025 Creatinine measurement Creatinine Level [facility] Start: 03-20-2025 Lipid panel Lipid Panel [facility] Start: 03-20-2025 Potassium measurement Potassium Level [facility] Start: 09-24-2024 Diabetes: Annual GFR (Glomerular Filtration Rate) Diabetes: Annual GFR (Glomerular Filtration Rate) [facility] Start: 09-20-2024 Hemoglobin A1c measurement Diabetes: Hemoglobin A1C [facility] Start: 07-15-2024 Influenza vaccination Influenza Vaccine (Season Ended) [facility] Start: 01-31-2024 Hemoglobin A1c measurement Diabetes: Blood Sugar Control Test (HGBA1C) [facility] Start: 11-20-2023 Urine screening for protein Diabetes: Urine Protein Screening [facility] Start: 10-12-2023 Shoulder MRI joint, w/o contrast, Left ([id number]), Body Site: [facility] Start: 09-14-2023 Diabetes: Annual GFR (Glomerular Filtration Rate) Diabetes: Annual GFR (Glomerular Filtration Rate) [facility] Start: 09-14-2023 Hypertension/CHF/CAD Annual BMP Blood Test Hypertension/CHF/CAD Annual BMP Blood Test [facility] Start: 07-15-2023 COVID-19 Vaccine ( season) COVID-19 Vaccine ( season) [facility] Start: 07-15-2023 Influenza vaccination Influenza Vaccine (#1) [facility] Start: 04-13-2023 Hypertension/CHF/CAD Annual BMP Blood Test Hypertension/CHF/CAD Annual BMP Blood Test [facility] Start: 03-08-2023 Hypertension/CHF/CAD Annual BMP Blood Test Hypertension/CHF/CAD Annual BMP Blood Test [facility] Start: 11-12-2022 Urine screening for protein Diabetes: Annual Urine Protein Test (Microalbumin) [facility] Start: 09-14-2022 Subsequent hospital visit by physician 09/14/2022 Hospital Encounter Gastroenterology Dionicio Chávez DO [address] [place] [address] [facility] Start: 07-15-2022 Influenza vaccination [facility] Start: 01-23-2022 COVID-19 Vaccine (4 - Booster for Pfizer series) COVID-19 Vaccine (4 - Booster for Pfizer series) [facility] Start: 12-02-2021 Diabetes: Annual Retina Eye Exam Diabetes: Annual Retina Eye Exam [facility] Start: 12-02-2021 Diabetes: Annual Urine Albumin-Creatinine Ratio Diabetes: Annual Urine Albumin-Creatinine Ratio [facility] Start: 12-02-2021 Diabetes: Annual Urine Albumin-Creatinine Ratio (uACR) Diabetes: Annual Urine Albumin-Creatinine Ratio (uACR) [facility] Start: 12-02-2021 Diabetic foot examination Diabetes: Annual Foot Exam [facility] Start: 12-02-2021 Hemoglobin A1c measurement Diabetes: Blood Sugar Control Test (HGBA1C) [facility] Start: 12-02-2021 Urine screening for protein Diabetes: Annual Urine Protein Test (Microalbumin) [facility] Start: 10-13-2021 End: 10-13-2022 US Abdomen Limited US Abdomen Limited Imaging Routine Body mass index 45.0-49.9, adult (CMS/HCC) Expected: 10/13/2021, Expires: 10/13/2022 [facility] Work Phone: Comment on above: Expected: 10/13/2021, Expires: 2 Start: 07-15-2021 Influenza vaccination Influenza Vaccine (#1) [facility] Start: 04-30-2021 End: 04-30-2021 Patient encounter procedure 04/30/2021 Office Visit General Surgery Sukhwinder Villalobos MD [address] [place] [address] [phone] [facility] Start: 12-23-2019 Adolescent depression screening assessment Depression Screening [facility] Start: 12-23-2019 Hepatitis C screening Hepatitis C Screening [facility] Start: 12-23-2019 HIV screening HIV Screening [facility] Start: 12-23-2019 Lipid panel Cholesterol Screening (Lipid Panel) [facility] Start: 12-23-2019 Social Influencers of Health Screening Social Influencers of Health Screening [facility] Start: 1997 DTaP,Tdap,and Td Vaccines (1 - Tdap) DTaP,Tdap,and Td Vaccines (1 - Tdap) [facility] Start: 1996 Hepatitis C screening Hepatitis C Screening [facility] Start: 1993 HIV screening HIV Screening [facility] Start: 1990 COVID-19 Vaccine (1) COVID-19 Vaccine (1) [facility] Start: 1990 Depression screening using PHQ-9 (Patient Health Questionnaire 9) score Depression Screening (PHQ9) [facility] Start: 1988 Diabetes: Annual Retina Eye Exam Diabetes: Annual Retina Eye Exam [facility] Start: 1988 Diabetic foot examination [facility] Start: 1988 Glaucoma screening Diabetes: Retinopathy Screening [facility] Start: 1988 Microalbumin measurement, urine, quantitative Urine Microalbumin [facility] Start: 1988 Ophthalmic examination and evaluation Ophthalmology Exam [facility] Start: 1984 Pneumococcal Vaccine: Pediatrics (0 to 5 Years) and At-Risk Patients (6 to 64 Years) (1 - PCV) Pneumococcal Vaccine: Pediatrics (0 to 5 Years) and At-Risk Patients (6 to 64 Years) (1 - PCV) [facility] Start: 1984 Pneumococcal Vaccine: Pediatrics (0 to 5 Years) and At-Risk Patients (6 to 64 Years) (1 of 2 - PCV) Pneumococcal Vaccine: Pediatrics (0 to 5 Years) and At-Risk Patients (6 to 64 Years) (1 of 2 - PCV) [facility] Start: 1984 Pneumococcal Vaccine: Pediatrics (0 to 5 Years) and At-Risk Patients (6 to 64 Years) (1 of 2 - PPSV23) Pneumococcal Vaccine: Pediatrics (0 to 5 Years) and At-Risk Patients (6 to 64 Years) (1 of 2 - PPSV23) [facility] Start: 1981 History and physical examination, annual for health maintenance Wellness Visit [facility] Start: 1979 MMR Vaccines (1 of 1 - Standard series) MMR Vaccines (1 of 1 - Standard series) [facility] Start: 1978 Hemoglobin A1c measurement A1C [facility] Start: 1978 HIV screening HIV Screening [facility] Start: 1978 Screening for malignant neoplasm of colon [facility] Alanine aminotransfe rase [Enzymatic activity/volume] in Serum or Plasma [facility] Albumin [Mass/volume ] in Serum or Plasma [facility] Alkaline phosphatase [Enzymatic activity/volume] in Serum or Plasma [facility] Anion gap in Serum o r Plasma [facility] Bilirubin, total measurement [facility] Bilirubin.direct [Mass/volume] in Serum or Plasma [facility] BUN/Creatinine ratio [facility] Calcium [Mass/volume ] in Serum or Plasma [facility] Carbon dioxide, tota l [Moles/volume] in Central venous blood [facility] Creatinine [Mass/vol ume] in Serum or Plasma [facility] Erythrocyte mean corpuscular volume determination [facility] Glucose [Mass/volume ] in Serum or Plasma [facility] Hematocrit [Volume Fraction] of Blood [facility] Hemoglobin [Mass/vol ume] in Blood [facility] Leukocytes [#/volume ] in Blood [facility] Magnesium measurement [facility] Mean corpuscular hemoglobin concentration determination [facility] Mean corpuscular hemoglobin determination [facility] Measurement of renal function [facility] Neutrophil count [facility] Neutrophil percent differential count [facility] Patient Education ED Confusion E D Near-Fainting, Uncertain Cause ED Vomiting (Adult) [facility] Work Phone: Platelets [#/volume] in Blood [facility] Potassium measurement [facility] Red blood cell count [facility] Red cell distributio n width determination [facility] Serum chloride measurement [facility] Sodium measurement [facility] Total protein measurement [facility] Troponin T.cardiac [Mass/volume] in Serum or Plasma by High sensitivity method [facility] Urea nitrogen [Mass/volume] in Serum or Plasma [facility] Urine culture [facility] Immunizations Immunization Date Immunization Notes Care Provider Fa regan 11-30-2022 influenza, injectabl e, quadrivalent, preservative free Zack Vigil MD Work Phone: [facility] Work Phone: 11-30-2022 influenza virus vaccine, unspecified formulation Bernabe Dooley MD Work Phone: [facility] 11-28-2021 Pfizer COVID-19, mRN A, 30 mcg/0.3mL Zack Vigil MD Work Phone: [facility] 03-22-2021 Pfizer SARS-CoV-2 Vaccination Sukhwinder Villalobos MD Work Phone: [facility] 03-01-2021 Pfizer COVID-19, mRN A, 30 mcg/0.3mL Zack Vigil MD Work Phone: [facility] 08-21-2020 influenza, injectabl e, quadrivalent, preservative free aZck Vigil MD Work Phone: [facility] 08-21-2020 influenza virus vaccine, unspecified formulation [facility] 10-19-2019 influenza, injectabl e, quadrivalent, preservative free Zack Vigil MD Work Phone: [facility] 08-16-2018 influenza, injectabl e, quadrivalent, preservative free Zack Vigil MD Work Phone: [facility] 07-23-2017 influenza, injectabl e, quadrivalent, preservative free Zack Vigil MD Work Phone: [facility] 07-23-2017 tetanus toxoid, reduced diphtheria toxoid, and acellular pertussis vaccine, adsorbed Zack Vigil MD Work Phone: [facility] 01-14-2017 hepatitis A vaccine, adult dosage Zack Vigil MD Work Phone: [facility] 01-14-2017 hepatitis B vaccine, adult dosage Zack Vigil MD Work Phone: [facility] 05-31-2016 Hepatitis B vaccine (recombinant), CpG adjuvanted Zack Vigil MD Work Phone: [facility] 05-31-2016 hepatitis B vaccine, adult dosage Zack Vigil MD Work Phone: [facility] Work Phone: 03-25-2016 hepatitis A vaccine, adult dosage Zack Vigil MD Work Phone: [facility] 03-25-2016 Hepatitis B vaccine (recombinant), CpG adjuvanted Zack Vigil MD Work Phone: [facility] 03-25-2016 hepatitis B vaccine, adult dosage Zack Vigil MD Work Phone: [facility] Payers Date Payer Category Payer Self-pay 2024 Unknown [id number] 2018 Private Health Insurance [id number] 2018 Unknown [id number] 2018 Unknown [id number] 1.2.840.100244.1.13.385. 2.7.3.299846.315 1978 Unknown [id number] 2.16.840.1.461698.3.579. 2.900 1978 Unknown [id number] 2.16.840.1.466957.3.579. 2.902 1978 Unknown [id number] 2.16.840.1.133107.3.579. 2.902 1978 Unknown [id number] 2.16.840.1.889558.3.579. 2.1143 1978 Unknown [id number] 2.16.840.1.768207.3.579. 2.1143 1978 Unknown [id number] 2.16.840.1.086947.3.579. 2.1143 1978 Unknown [id number] 2.16.840.1.962587.3.579. 2.1143 1978 Unknown [id number] 2.16.840.1.618305.3.579. 2.1143 1978 Unknown [id number] 2.16.840.1.536628.3.579. 2.1142 1978 Unknown [id number] 2.16.840.1.547204.3.579. 2.1260 1978 Unknown [id number] 2.16.840.1.407147.3.579. 2.0 1978 Unknown [id number] 2.16.840.1.460765.3.579. 2.0 1978 Unknown [id number] 2.16.840.1.330268.3.579. 2.0 1978 Unknown [id number] 2.16.840.1.663517.3.579. 2.0 1978 Unknown [id number] 2.16.840.1.504433.3.579. 2.0 1978 Unknown [id number] 2.16.840.1.392881.3.579. 2.1260 1978 Unknown [id number] 2.16.840.1.831976.3.579. 2.0 1978 Unknown [id number] 2.16.840.1.207518.3.579. 2.1260 Unknown [facility] [id number] Unknown [id number] 2.16.840.1.665112.3.579. 2.462 Unknown [id number] 2.16.840.1.074370.3.579. 2.462 Unknown [id number] 2.16.840.1.405369.3.579. 2.462 Unknown [id number] 2.16.840.1.424118.3.579. 2.462 Unknown [id number] 2.16.840.1.887614.3.579. 2.462 Unknown [id number] 2.16.840.1.848357.3.579. 2.462 Unknown [id number] 2.16.840.1.002476.3.579. 2.462 Unknown [id number] 2.16.840.1.575978.3.579. 2.462 Unknown [id number] 2.16.840.1.951817.3.579. 2.462 Unknown [id number] 2.16.840.1.411229.3.579. 2.462 Unknown [id number] 2.16.840.1.197251.3.579. 2.462 Unknown [id number] 2.16.840.1.087082.3.579. 2.462 Unknown [id number] 2.16.840.1.974605.3.579. 2.462 Unknown [id number] 2.16.840.1.042644.3.579. 2.462 Unknown [id number] 2.16.840.1.469667.3.579. 2.462 Unknown [id number] 2.16.840.1.570946.3.579. 2.462 Unknown [id number] 2.16.840.1.595358.3.579. 2.462 Unknown [id number] 2.16.840.1.610693.3.579. 2.462 Unknown [id number] 2.16.840.1.537697.3.579. 2.462 Unknown [id number] 2.16840.1.969896.3.579. 2.462 Social History Date Type Detail Facility Start: 04-22-2021 End: 08-21-2025 Tobacco smoking status [facility] Never smoker [facility] Start: 04-22-2021 End: 11-22-2023 Tobacco use and exposure Never used [facility] Start: 04-22-2021 End: 09-24-2023 Alcohol intake Current drinker of alcohol (finding) [facility] Start: 04-22-2021 End: 11-22-2023 Alcohol intake [facility] Start: 02-11-2016 Alcohol Comment occasionally [facility] Start: 1980 Sex Assigned At Not on file [facility] Start: 03-15-2022 End: 02-16-2023 Exposure to SARS-CoV-2 (event) Not sure [facility] Tobacco smoking stat [facility] Unknown if ever smoked [facility] Start: 04-13-2022 End: 03-22-2024 Alcohol intake Ex-drinker (finding) [facility] Start: 10-27-2022 Alcohol Comment rare [facility] Start: 11-22-2023 End: 03-22-2024 Gender identity Not on file [facility] How often to you hav e a drink containing alcohol? Monthly or less [facility] How many standard drinks containing alcohol do you have on a typical day? 1 or 2 [facility] Work Phone: How often do you hav e 6 or more drinks on 1 occasion? Never [facility] Work Phone: How hard is it for y ou to pay for the very basics like food, housing, medical care, and heating Not very hard [facility] Work Phone: The food that (I/we) bought just didn't last, and (I/we) didn't have money to get more. Never true [facility] Work Phone: In the past 12 month s, has lack of transportation kept you from medical appointments or from getting medications? No [facility] Work Phone: In the past 12 month s, was there a time when you were not able to pay the mortgage or rent on time? No [facility] Work Phone: Start: 11-22-2023 Tobacco Comment Very brief experimentation in college [facility] Work Phone: Start: 11-22-2023 Alcohol Comment Maybe one chau jin every few years on very special occasions [facility] Work Phone: Start: 04-23-2024 Alcohol intake Alcohol Use Details [facility] Start: 1980 Sex Assigned At Male [facility] Work Phone: Start: 01-21-2020 Sexual Orientation Straight or heterosexual [facility] NEGATED: Highlighted rowStart: 04-23-2024 Tobacco smoking status NHIS Unknown if ever smoked [facility] Medical Equipment Procedure Code Equipment Code Equipment Origin al Text Equipment Identifier Dates Patch 1.7in [place] W/Strap Sm Ventralex St - [id number] , [id number]_[facility] FDA Start: 04-22-2021 Goals Date Patient Goal Desired Activity /State Functional Status Date Assessment Result Facility 07-26-2025 Functional status Ambulates [facility] Work Phone: 04-23-2024 Pain severity - 0-10 verbal numeric rating [Score] - Reported 1/10 [facility] Mental Status Date Assessment Result Facility 08-21-2025 Cognitive function Awake [facility] Work Phone: 07-26-2025 Cognitive function Voice/Name [facility] Work Phone: 07-21-2025 Cognitive function Awake;Alert;A ppropriate;Fol lows Commands [facility] Work Phone: Clinical Notes 04-17-2021 to 08-21-2025 Note Date & Type Note Facility 08-21-2025 Discharge summary [facility] 08-21-2025 Radiology Diagnostic study note [facility] Imaging Services [address] [place], [place] [address] Brain/Head without Contrast MR#: [id number] Acct: [id number] Name: LEON RIDER Rep #: [id number] : 1980 M 45 From: Rosa Morrison MD PCP: Dr. Alis Duran MD Status: REG ER Study:Brain/Head without Contrast Date of Exa m: 08/21/25 Exam# [id number] Ordering Dr: Vincenzo Chavarria MD EXAM: CT [...] with MRI is recommended. Reading Location: [facility] CC: Dr. Vincenzo Chavarria MD; Dr. Alis Duran MD ~ Senior Mechanical Designer: Signed [facility] 08-21-2025 Radiology Diagnostic study note [facility] Imaging Services [address] [place] [address] [id number] Chest 1 View (Portable) MR#: [id number] Acct: [id number] Name: LEON RIDER Rep #: [id number] : 1980 M 45 From: Rosa Morrison MD PCP: Dr. Alis Duran MD Status: REG ER Study:Chest 1 View (Portable) Date of Exam: 08/21/25 Exam# [id number] Ordering Dr: Vincenzo Chavarria MD EXAM: XR Chest, 1 View CLINICAL INDICATION: CONGESTIVE HEART FAILURE TECHNIQUE: Frontal view of the chest. COMPARISON: No relevant prior studies available. FINDINGS: LUNGS AND PLEURAL SPACES: See below. HEART: Cardiomegaly with mild congestion. MEDIASTINUM: Unremarkable. Normal mediastinal contour. BONES/JOINTS: Unremarkable. No acute fracture. RAD/Chest 1 View (Portable) IMPRESSION: Cardiomegaly with mild congestion. Reading Location: [id number] CC: Dr. Vincenzo Chavarria MD; Dr. Alis Duran MD ~ Senior Mechanical Designer: Signed [facility] 08-21-2025 Discharge summary Note Date/Time August 21, 2025 8:56pm [facility] Medical Records Department [address] [place] [address] Emergency Department Summary 08/21/25 MR#: [id number] Acct: [id number] Name: LEON RIDER Rep #:[id number] : [...] feel slightly off balance when he walks. [facility] Medical History Kidney stones Cirrhosis Non-smoker [...] Continuous Positive Airway 07/23/25 Unknown Hi story Pressure([facility] INFORMATIONAL USE ONLY) bumetanide 2 mg [...] disease Surgical History H/O umbilical hernia repair [place] teeth extracted Social History household members: spouse [...] (Auto) 57.4 Lymph % (Auto) 17.7 L Dewitt % (Auto) 14.2 H Eos % (Auto) [...] Clarity Cloudy Urine pH 6.0 Ur Specific [place] 1.020 Urine Protein 15 H Urine Glucose [...] with MRI is recommended. Reading Location: [facility] Chest X-Ray 08/21/25 18:00 IMPRESSION: Cardiomegaly with mild congestion. Reading Location: [facility] Discharge Plan Triage Chief Complaint: Dizziness Other [...] BID (DME) CPAP - Continuous Positive Airway Pressure([facility] INFORMATIONAL USE ONLY) Device See Rx [...] liquid diet, advance as tolerated. Print Language: Slovenian Disposition Disposition: Home, Self Care What to do if you have Problems For any increased pain, shortness of breath, bleeding, nausea or vomiting, chestpain, or any unexpected problems, contact your Primary Care Provider. Call [facility] ([phone]) or report to the closest Emergency Room. Call 911 if necessary. 08/21/252055 <Electronically signed by Vincenzo Chavarria MD> Cosigner Signature (if applicable): CC: Dr. Alis Duran MD ~ Signed [facility] Work Phone: 1(236) 224-639310-06-2025 Progress [facility] [place] [address] OFFICE VISIT Date of Service: 08/19/25 1447 MR#: [id number] Acct: [id number] Name: LEON RIDER Rep #: [id number] : 1980 From: León Mccray MD Age/Sex: 45/M Location: [facility] Status: Signed HPI Subjective Date of Service 08/19/25 Chief Complaint F/u for anemia. 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 He has had esophageal varices which has been banded in [place]. Denies recent bleeding. Had blood work done and comes for follow up. Feels well. [facility] Medical History Hx of cirrhosis Anemia Chronic idiopathic thrombocytopenia HTN (hypertension) Diabetes Acid reflux Rectal bleeding Hemorrhoids Surgical History H/O umbilical hernia repair [place] teeth extracted Family History Other Diabetes Heart [...] Continuous Positive Airway 07/23/25 08/19/25 H istory Pressure([facility] INFORMATIONAL USE ONLY) bumetanide 2 mg [...] 1513 D> Date _ León Mccray MD [facility] Signature: Date (if applicable) CC: Dr. Alis Duran MD ~ [facility]09-29-2025 [facility] [address] [address] OFFICE VISIT Date of Service: 08/12/25822 MR#: [id number] Acct: [id number] Name: LEON RIDER Rep #: [id number] : 1980 From: León Mccray MD Age/Sex: 45/M Location: [facility] Status: Signed HPI Subjective Date of Service 08/12/25 Chief Complaint Referred for anemia. 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 He has had esophageal varices which has been banded in [place]. Denies recent bleeding [facility] Medical History Hx of cirrhosis Anemia Chronic idiopathic thrombocytopenia HTN (hypertension) Diabetes Acid reflux Rectal bleeding Hemorrhoids Surgical History H/O umbilical hernia repair [place] teeth extracted Family History Other Diabetes Heart [...] Continuous Positive Airway 07/23/25 08/12/25 H istory Pressure([facility] INFORMATIONAL USE ONLY) bumetanide 2 mg [...] 1646 D> Date _ León Mccray MD [facility] Signature: Date (if applicable) CC: Dr. Alis Duran MD ~ [facility]09-12-2025 [facility] Medical Records Department [address] [place] [address] Discharge Summary 07/26/25 1438 MR#: [id number] Acct: [id number] Name: LEON RIDER Rep #: [id number] : 1980 45 From: Myriam Aguilar DO PCP: Dr. Alis Duran MD Status:DIS IN Location: [place] [address] Providers Date of Admission: 07/21/25 Date of [...] diabetes 07/21/25 CPAP - Continuous Positive Airway Pressure([facility] INFORMATIONAL USE ONLY) 07/23/25 bumetanide 2 [...] who presented to the emergency department at [facility] on 07/21/2025 with a chief complaint of chest pain. He has a history of metabolic associated liver disease and right leg pain with history of chronic venous stasis. He stated the night prior to presentation he developed some dull aching in his chest at about 8 PM that lasted for couple minutes and then he had to go work at the [employer]. He stated he returned home at about [...] to his l (more content not included)... [facility]09-12-2025 Hospital Discharge instructionsAdditional Instructions 1. Please [...] to schedule outpatient follow-up Date of Discharge: 07/26/25[facility] Work Phone: 1(266) 628-111809-11-2025 Progress note Author Myriam Aguilar [facility] Note Date/Time July 25, 2025 5:19pm [facility] Medical Records Department [address] [place] [address] Progress Note - Hospitalist 07/25/25 1703 MR#: [id number] Acct: [id number] Name: LEON RIDER Rep #:[id number] : 1980 45 From: Myriam Aguilar DO PCP: Dr. Alis Duran MD Status:ADM IN Location: [place] [address] Reason for Visit Chief Complaint: Atypical chest pain about 2 times last night. Subjective Subjective Patient states overall he is about 50 to 60% better. His leg is press tender long goods. He is diuresing fairly well. Shortness of [...] % (Auto) 57.6, Lymph % (Auto) 15.0L, Dew[place] % (Auto) 19.1 H, Eos % (Auto) [...] Full code Charges/Coding Visit Charges Inpatient E&M: 76083 Subs Hosp L2 07/25/25 0963 <Electronically signed by Myriam Aguilar DO> Cosigner Signature (if applicable): CC: ~ Signed [facility] Work Phone: 1(201) 607-172609-11-2025 Progress note [facility] Medical Records Department [address] [place] [address] Progress Note - Hospitalist 07/25/25 1703 MR#: [id number] Acct: [id number] Name: LEON RIDER Rep #:[id number] : 1980 45 From: Myriam Aguilar DO PCP: Dr. Alis Duran MD Status:ADM IN Location: [place] [address] Reason for Visit Chief Complaint: Atypical chest pain about 2 times last night. Subjective Subjective Patient states overall he is about 50 to 60% better. His leg is press tender long goods. He is diuresing fairly well. Shortness of [...] % (Auto) 57.6, Lymph % (Auto) 15.0L, [place] % (Auto) 19.1 H, Eos % (Auto) [...] Full code Charges/Coding Visit Charges Inpatient E&M: 84216 Subs Hosp L2 07/25/25 0509 Cosigner Signature (if applicable): CC: ~ Signed [facility]09-10-2025 Progress note Author Timoteo Cooper [facility] Note Date/Time July 24, 2025 12:38pm [facility] Medical Records Department [address] [place] [address] Progress Note - Hospitalist 07/24/25 1232 MR#: [id number] Acct: [id number] Name: LEON RIDER Rep #:[id number] : 1980 45 From: Timoteo Mccarthy PCP: Dr. Alis Duran MD Status:ADM IN Location: [place] [address] Reason for Visit Chief Complaint: Atypical chest [...] % (Auto) 60.8, Lymph % (Auto) 14.1L, [place] % (Auto) 16.9 H, Eos % (Auto) 5.1 H, Baso % (Auto) 0.6, Absolute Neuts (auto) 4.9, Absolute Lymphs (auto) 1.13, Nucleated RBC % 0, Differential CommentSCANNED, Platelet Estimate SLT DEC, Polychromasia 1+, Basophilic Stippling 1+, Anisocytosis 2+, Acanthocytes (Spur) RARE, Sodium 131 L, Potassium 3.7, [id number], Carbon Dioxide 23.7, Anion Gap 8, BUN 9, Creatinine 0.64 L, Estim Creat Clear Calc 233.67, Est GFR (MDRD) Non-Af 117, BUN/Creatinine Ratio 13.5, [id number] H, Calcium 7.5 L, Total Bilirubin 2.01 [...] in the right upper quadrant. Reading Location: [facility] Rhythm Strip Rhythm Strip: Sinus [...] diuresis. 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 She has to [...] shock if needed Total time spent in [id number] encounter in discussion of advanced directive 17 [...] % (Auto) 60.8, Lymph % (Auto) 14.1L, [place] % (Auto) 16.9 H, Eos % (Auto) 5.1 H, Baso % (Auto) 0.6, Absolute Neuts (auto) 4.9, Absolute Lymphs (auto) 1.13, Nucleated RBC % 0, Differential CommentSCANNED, Platelet Estimate SLT DEC, Polychromasia 1+, Basophilic Stippling 1+, Anisocytosis 2+, Acanthocytes (Spur) RARE, Sodium 131 L, Potassium 3.7, [id number], Carbon Dioxide 23.7, Anion Gap 8, BUN 9, Creatinine 0.64 L, Estim Creat Clear Calc 233.67, Est GFR (MDRD) Non-Af 117, BUN/Creatinine Ratio 13.5, Vhniebb509 H, Calcium 7.5 L, Total Bilirubin 2.01 H, AST 41 H, ALT 24, Alkaline Phosphatase 110, Total Protein 6.2, Albumin 2.2 L, Globulin 4.0, Albumin/Globulin Ratio 0.6 L 07/24/25 06:30: POC Glucose 133 H 07/24/25 11:00: POC Glucose 137 H Clinical Impression(s) from Imaging Studies Chest CTA 07/21/25 09:27 IMPRESSION: Negative for pulmonary embolus.. Mild interstitial edema. Mild mediastinal adenopathy. Cirrhosis. Reading Location: [facility] Echocardiogram 07/22/25 05:55 Interpretation Summary Mild concentric [...] in the right upper quadrant. Reading Location: [id number] Charges/Coding Visit Charges Inpatient E&M: 74894 Subs Hosp L2 07/24/25 1238 <Electronically signed by Timoteo Cooper MD> Cosigner Signature (if applicable): CC: ~ Signed ADDENDUM by Dr. Timoteo Cooper MD on 07/24/25 at 1238 Addendum Doxycycline added. 07/24/25 1238<Electronically signed by Timoteo Cooper MD> Cosigner Signature (if applicable): cc: ~* Signed [facility] Work Phone: 1(695) 547-503409-10-2025 Progress note [facility] Medical Records Department [address] [place] [address] Progress Note - Hospitalist 07/24/25 1232 MR#: [id number] Acct: [id number] Name: LEON RIDER Rep #:[id number] : 1980 45 From: Timoteo Mccarthy PCP: Dr. Alis Duran MD Status:ADM IN Location: [place] [address] Reason for Visit Chief Complaint: Atypical chest [...] % (Auto) 60.8, Lymph % (Auto) 14.1L, Dewitt % (Auto) 16.9 H, Eos % (Auto) 5.1 H, Baso % (Auto) 0.6, Absolute Neuts (auto) 4.9, Absolute Lymphs (auto) 1.13, Nucleated RBC % 0, Differential CommentSCANNED, Platelet Estimate SLT DEC, Polychromasia 1+, Basophilic Stippling 1+, Anisocytosis 2+, Acanthocytes (Spur) RARE, Sodium 131 L, Potassium 3.7, Seppftch523, Carbon Dioxide 23.7, Anion Gap 8, BUN 9, Creatinine 0.64 L, Estim Creat Clear Calc 233.67, Est GFR (MDRD) Non-Af 117, BUN/Creatinine Ratio 13.5, Immfaqo196 H, Calcium 7.5 L, Total Bilirubin 2.01 H, AST 41 H, ALT 24, Alkaline Xvjpnzstuhd276, Total Protein 6.2, Albumin 2.2 L, Globulin [...] in the right upper quadrant. Reading Location: [facility] Rhythm Strip Rhythm Strip: Sinus [...] diuresis. 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 She has to [...] shock if needed Total time spent in zkxs-vl-iugy encounter in discussion of advanced directive 17 [...] % (Auto) 60.8, Lymph % (Auto) 14.1L, Dewitt % (Auto) 16.9 H, Eos % (Auto) 5.1 H, Baso % (Auto) 0.6, Absolute Neuts (auto) 4.9, Absolute Lymphs (auto) 1.13, Nucleated RBC % 0, Differential CommentSCANNED, Platelet Estimate SLT DEC, Polychromasia 1+, Basophilic Stippling 1+, Anisocytosis 2+, Acanthocytes (Spur) RARE, Sodium 131 L, Potassium 3.7, Cbecughq687, Carbon Dioxide 23.7, Anion Gap 8, BUN 9, Creatinine 0.64 L, Estim Creat Clear Calc 233.67, Est GFR (MDRD) Non-Af 117, BUN/Creatinine Ratio 13.5, Cpklgaj116 H, Calcium 7.5 L, Total Bilirubin 2.01 H, AST 41 H, ALT 24, Alkaline Dtmzripubhi980, Total Protein 6.2, Albumin 2.2 L, Globulin 4.0, Albumin/Globulin Ratio 0.6 L 07/24/25 06:30: POC Glucose 133 H 07/24/25 11:00: POC Glucose 137 H Clinical Impression(s) from Imaging Studies Chest CTA 07/21/25 09:27 IMPRESSION: Negative for pulmonary embolus.. Mild interstitial edema. Mild mediastinal adenopathy. Cirrhosis. Reading Location: [id number] Echocardiogram 07/22/25 05:55 Interpretation Summary Mild concentric left ventricular hypertrophy. Mildly dilated left ventricle. Mild (1+) posteriorly directed mitral valve insufficiency. Trileaflet aortic valve. Mildly thickened leaflets. Mean peak gradient 8 mmHg. The study was technically difficult. Inferior hypokinesis. Estimated LVEF 55%. Stage I diastolic dysfunction. Ordering Physician: Timoteo Cooper Referring Physician: ALIS DURNA Performed By: Jessica Wright RCS Abdomen Ultrasound 07/23/25 15:08 IMPRESSION: Coarsened echotexture of the liver. Splenomegaly. Small amount of ascites seen in the right upper quadrant. Reading Location: [id number] Charges/Coding Visit Charges Inpatient E&M: 06906 Subs Hosp L2 07/24/25 1238 Cosigner Signature (if applicable): CC: ~ Signed ADDENDUM by Dr. Timoteo Cooper MD on 07/24/25 at 1238 Addendum Doxycycline added. 07/24/25 1238 Cosigner Signature (if applicable): cc: ~* Signed [facility]09-10-2025 Radiology Diagnostic study note [facility] Imaging Services [address] [place], [place] [id number] Abdomen Limited MR#: [id number] Acct: [id number] Name: LEON RIDER Rep #: [id number] : 1980 M 45 From: Roberto Angel MD PCP: Dr. Alis Duran MD Status: ADM IN Study:Abdomen Limited Date of Exam: 08/08 Exam# [id number] Ordering Dr: Irlanda Cooper MD PROCEDURE: ABDOMEN [...] in the right upper quadrant. Reading Location: [facility] CC: Dr. Alis Duran MD; Dr. Timoteo Cooper MD ~ Senior Mechanical Designer: Signed [facility]09-09-2025 Progress note Author Timoteo Cooper [facility] Note Date/Time July 23, 2025 3:12pm [facility] Medical Records Department [address] [place] [address] Progress Note - Hospitalist 07/23/25 0932 MR#: [id number] Acct: [id number] Name: LEON RIDER Rep #:[id number] : 1980 45 From: Timoteo Mccarthy PCP: Dr. Alis Duran MD Status:ADM IN Location: [place] [address] Reason for Visit Chief Complaint: Atypical chest [...] (Auto) 64.2, Lymph % (Auto) 14.9 L, Dewitt % (Auto) 16.2 H, Eos % (Auto) [...] shock if needed Total time spent in dzig-va-crqk encounter in discussion of advanced directive 17 [...] (Auto) 64.2, Lymph % (Auto) 14.9 L, Dewitt % (Auto) 16.2 H, Eos % (Auto) [...] Wright RCS Charges/Coding Visit Charges Inpatient E&M: 36640 Subs Hosp L2 07/23/25 1512 <Electronically signed by Timoteo Cooper MD> Cosigner Signature (if applicable): CC: ~ Signed [facility] Work Phone: 1(588) 933-641209-09-2025 Progress note [facility] Medical Records Department [address] [place] [address] Progress Note - Hospitalist 07/23/25 0932 MR#: [id number] Acct: [id number] Name: LEON RIDER Rep #:[id number] : 1980 45 From: Timoteo Mccarthy PCP: Dr. Alis Duran MD Status:ADM IN Location: [place] [address] 1 Reason for Visit Chief Complaint: Atypical [...] (Auto) 64.2, Lymph % (Auto) 14.9 L, Dewitt % (Auto) 16.2 H, Eos % (Auto) [...] shock if needed Total time spent in skur-kc-lbtb encounter in discussion of advanced directive 17 [...] (Auto) 64.2, Lymph % (Auto) 14.9 L, Dewitt % (Auto) 16.2 H, Eos % (Auto) [...] Wright RCS Charges/Coding Visit Charges Inpatient E&M: 55710 Subs Hosp L2 07/23/25 1512 Cosigner Signature (if applicable): CC: ~ Signed [facility]09-08-2025 Progress note Author Timoteo Cooper [facility] Note Date/Time July 22, 2025 4:06pm [facility] Medical Records Department [address] [place] [address] Progress Note - Hospitalist 07/22/25 0946 MR#: [id number] Acct: [id number] Name: LEON RIDER Rep #:[id number] : 1980 45 From: Timoteo Mccarthy PCP: Dr. Alis Duran MD Status:ADM IN Location: [place] [address] Reason for Visit Chief Complaint: Atypical chest [...] 70.4 H, Lymph % (Auto) 10.4 L, Dewitt % (Auto) 15.8 H, Eos % (Auto) [...] Clarity Clear, Urine pH 6.5, Ur Specific [place] 1.010, Urine Protein 30 H, Urine Glucose [...] (Auto) 66.1, Lymph % (Auto) 13.7 L, Dewitt % (Auto) 15.8 H, Eos % (Auto) [...] edema. Mild mediastinal adenopathy. Cirrhosis. Reading Location: [facility] Rhythm Strip Rhythm Strip: Sinus [...] shock if needed Total time spent in xxcq-oo-qcfz encounter in discussion of advanced directive 17 [...] (Auto) 66.1, Lymph % (Auto) 13.7 L, Dewitt % (Auto) 15.8 H, Eos % (Auto) [...] Wright RCS Charges/Coding Visit Charges Inpatient E&M: 74518 Subs Hosp L2 07/22/25 1606 <Electronically signed by Timoteo Cooper MD> Cosigner Signature (if applicable): CC: ~ Signed [facility] Work Phone: 1(270) 436-832309-08-2025 Progress note [facility] Medical Records Department [address] [place] [address] Progress Note - Hospitalist 07/22/25 0946 MR#: [id number] Acct: [id number] Name: LEON RIDER Rep #:[id number] : 1980 45 From: Timoteo Mccarthy PCP: Dr. Alis Duran MD Status:ADM IN Location: [place] [address] 1 Reason for Visit Chief Complaint: Atypical [...] 70.4 H, Lymph % (Auto) 10.4 L, Dewitt % (Auto) 15.8 H, Eos % (Auto) [...] Clarity Clear, Urine pH 6.5, Ur Specific [place] 1.010, Urine Protein 30 H, Urine Glucose [...] (Auto) 66.1, Lymph % (Auto) 13.7 L, Dewitt % (Auto) 15.8 H, Eos % (Auto) [...] edema. Mild mediastinal adenopathy. Cirrhosis. Reading Location: [id number] Rhythm Strip Rhythm Strip: Sinus Tach Rate: [...] shock if needed Total time spent in mtpu-gr-tnqr encounter in discussion of advanced directive 17 [...] (Auto) 66.1, Lymph % (Auto) 13.7 L, Dewitt % (Auto) 15.8 H, Eos % (Auto) [...] Wright RCS Charges/Coding Visit Charges Inpatient E&M: 44760 Subs Hosp L2 07/22/25 1606 Cosigner Signature (if applicable): CC: ~ Signed [facility]09-07-2025 Discharge summary Author Denice Sunniaudra [facility] Note Date/Time July 21, 2025 3:14pm [facility] Medical Records Department [address] [place] [address] Emergency Department Summary 07/21/25 MR#: [id number] Acct: [id number] Name: LEON RIDER Rep #:[id number] : 1980 45 From: Denice Pineda PCP: Dr. Alis Duran MD Status:ADM IN Location: [place] [address] HPI History of Present Illness Chief Complaint: Chest Pain Informant: patient Narrative Narrative: Patient is a 45-year-old male with history of diabetes, hypertension, cirrhosis due to GLASS presenting for chest pain, shortness of breath, fatigue and continued right leg pain. Patient states that 8 PM last night he developed dullache pressure in his chest. Lasted for couple minutes. He was working at the [employer] at that time. He returned that evening [...] other complaints or concerns reported this time [facility] Medical History HTN (hypertension) Diabetes Acid [...] 09:08 Surgical History H/O umbilical hernia repair [place] teeth extracted Social History (Updated 07/21/25 @ [...] 70.4 H Lymph % (Auto) 10.4 L Dewitt % (Auto) 15.8 H Eos % (Auto) [...] Clarity Clear Urine pH 6.5 Ur Specific [place] 1.010 Urine Protein 30 H Urine Glucose [...] (Auto) Neut % (Auto) Lymph % (Auto) Dewitt % (Auto) Eos % (Auto) Baso % [...] Color Urine Clarity Urine pH Ur Specific [place] Urine Protein Urine Glucose (UA) Urine Ketones [...] edema. Mild mediastinal adenopathy. Cirrhosis. Reading Location: [id number] Rhythm Strip Rhythm Strip: Sinus Tach Rate: [...] acid level Disposition Disposition: Acute Care Hospital [facility] Discharge Date/Time: 07/21/25 12:46 What to do if you have Problems For any increased pain, shortness of breath, bleeding, nausea or vomiting, chestpain, or any unexpected problems, contact your Primary Care Provider. Call [facility] ([phone]) or report to the closest Emergency Room. Call 911 if necessary. 07/21/25 1514 <Electronically signed by Denice Leal DO> Cosigner Signature (if applicable): CC: Dr. Alis Duran MD ~ Signed [facility] Work Phone: 1(756) 918-998109-07-2025 Discharge summary [facility] Medical Records Department [address] [place] [address] Emergency Department Summary 07/21/25 MR#: [id number] Acct: [id number] Name: LEON RIDER Rep #:[id number] : 1980 45 From: Denice Pineda PCP: Dr. Alis Duran MD Status:ADM IN Location: [address] History of Present Illness Chief Complaint: Chest Pain Informant: patient Narrative Narrative: Patient is a 45-year-old male with history of diabetes, hypertension, cirrhosis due to GLASS presenting for chest pain, shortness of breath, fatigue and continued right leg pain. Patient states that 8PM last night he developed dullache pressure in his chest. Lasted for couple minutes. He was working at the [employer] at that time. He returned that evening [...] other complaints or concerns reported this time [facility] Medical History HTN (hypertension) Diabetes Acid [...] 09:08 Surgical History H/O umbilical hernia repair [place] teeth extracted Social History (Updated 07/21/25 @ [...] 70.4 H Lymph % (Auto) 10.4 L Dewitt % (Auto) 15.8 H Eos % (Auto) [...] Clarity Clear Urine pH 6.5 Ur Specific [place] 1.010 Urine Protein 30 H Urine Glucose [...] (Auto) Neut % (Auto) Lymph % (Auto) Dewitt % (Auto) Eos % (Auto) Baso % [...] Color Urine Clarity Urine pH Ur Specific [place] Urine Protein Urine Glucose (UA) Urine Ketones [...] edema. Mild mediastinal adenopathy. Cirrhosis. Reading Location: [facility] Rhythm Strip Rhythm Strip: Sinus [...] acid level Disposition Disposition: Acute Care Hospital [facility] Discharge Date/Time: 07/21/25 12:46 What to do if you have Problems For any increased pain, shortness of breath, bleeding, nausea or vomiting, chestpain, or any unexpected problems, contact your Primary Care Provider. Call [facility] ([phone]) or report tothe closest Emergency Room. Call 911 if necessary. 07/21/25 1514 Cosigner Signature (if applicable): CC: Dr. Alis Duran MD ~ Signed [facility]09-07-2025 History and physical note Author Timoteo Cooper [facility] Note Date/Time July 21, 2025 12:42pm [facility] Medical Records Department [address] [place] [address] H&P Exam - Hospitalist 07/21/25 1150 MR#: [id number] Acct: [id number] Name: LEON RIDER Rep #:[id number] : 1980 45 From: Timoteo Mccarthy PCP: Dr. Alis Duran MD Status:ADM IN Location: [address] HPI - General General Date [...] to 10 years ago. Does not follow job placement counselor. [facility] Medical History HTN (hypertension) Diabetes Acid reflux Rectal bleeding Hemorrhoids Home Medications ?Medication ?Instructions ?Recorded ?Last Taken ?Type Diltiazem 10mg/Lidocaine 50mg See Rx Instructions [place] . BID #30 01/28/25 Unknown Rx Suppository [...] 09:08 Surgical History H/O umbilical hernia repair [place] teeth extracted Social History household members: spouse [...] 70.4 H, Lymph % (Auto) 10.4 L, Dewitt % (Auto) 15.8 H, Eos % (Auto) [...] edema. Mild mediastinal adenopathy. Cirrhosis. Reading Location: [id number] Assessment & Plan Assessment/Plan (1) Cellulitis: QUALIFIERS: [...] shock if needed Total time spent in flva-zc-fmgj encounter in discussion of advanced directive 17 [...] 70.4 H, Lymph % (Auto) 10.4 L, Dewitt % (Auto) 15.8 H, Eos % (Auto) [...] Clarity Clear, Urine pH 6.5, Ur Specific [place] 1.010, Urine Protein 30 H, Urine Glucose [...] adenopathy. Cirrhosis. Charges/Coding Visit Charges Inpatient E&M: 96209 Init Hosp L3 Procedures Hospitalists Procedures: 76606 Advncd Care Plan 30 Min 07/21/25 1242 <Electronically signed by Timoteo Cooper MD> Cosigner Signature (if applicable): CC: Dr. Alis Duran MD; Dr. Timoteo Cooper MD~ Signed [facility] Work Phone: 1(559) 251-537909-07-2025 Evaluation note* Diagnosis Onset Date Resolution Status [...] bilirubin elevated acute July 21 025 12:11pm [facility] Work Phone: 1(735) 621-504509-07-2025 Evaluation note* Diagnosis Onset Date Resolution Status [...] 21, 2025 12:11pm Anemia noneactive July 8:21am [facility] Work Phone: 1([phone]) 510-666109-07-2025 Evaluation note* Diagnosis Onset Date Resolution Status [...] 19 1:58pm Anemia noneactive August 19 1:58pm [facility] Work Phone: 1(280) 204-709409-07-2025 History and physical note [facility] Medical Records Department [address] [place] [address] H&P Exam - Hospitalist 07/21/25 1150 MR#: [id number] Acct: [id number] Name: LEON RIDER Rep #:[id number] : 1980 45 From: Timoteo Mccarthy PCP: Dr. Alis Duran MD Status:ADM IN Location: [facility] [id number] HPI - General General Date of [...] to 10 years ago. Does not follow job placement counselor. [facility] Medical History HTN (hypertension) Diabetes Acid reflux Rectal bleeding Hemorrhoids Home Medications ?Medication ?Instructions ?Recorded ?Last Taken ?Type Diltiazem 10mg/Lidocaine 50mg See Rx Instructions [place] . BID #30 01/28/25 Unknown Rx Suppository [...] 09:08 Surgical History H/O umbilical hernia repair [place] teeth extracted Social History household members: spouse [...] 70.4 H, Lymph % (Auto) 10.4 L, Dewitt % (Auto) 15.8 H, Eos % (Auto) [...] edema. Mild mediastinal adenopathy. Cirrhosis. Reading Location: [facility] Assessment & Plan Assessment/Plan (1) Cellulitis: QUALIFIERS: [...] shock if needed Total time spent in ziau-bk-endb encounter in discussion of advanced directive 17 [...] 70.4 H, Lymph % (Auto) 10.4 L, Dewitt % (Auto) 15.8 H, Eos % (Auto) [...] Clarity Clear, Urine pH 6.5, Ur Specific [place] 1.010, Urine Protein 30 H, Urine Glucose [...] adenopathy. Cirrhosis. Charges/Coding Visit Charges Inpatient E&M: 38898 Init Hosp L3 Procedures Hospitalists Procedures: 24486 Advncd Care Plan 30 Min 07/21/25 1242 Cosigner Signature (if applicable): CC: Dr. Alis Duran MD; Dr. Timoteo Cooper MD~ Signed [facility]09-07-2025 Radiology Diagnostic study note [facility] Imaging Services [address] [place] [address] CTA Chest W/WO Contrast MR#: [id number] Acct: [id number] Name: LEON RIDER Rep #: [id number] : 1980 M 45 From: Giorgio Salinsa MD PCP: Dr. Alis Duran MD Status: REG ER Study:CTA Chest W/WO Contrast Date of Exam: 07/21/25 Exam# [id number] Ordering Dr: Krystin Leal DO PROCEDURE: CTA [...] edema. Mild mediastinal adenopathy. Cirrhosis. Reading Location: [facility] CC: Dr. Alis Duran MD; Dr. Denice Leal, DO ~ Senior Mechanical Designer: Signed [facility]03-17-2025 Evaluation note* Diagnosis Onset Date Resolution Status Admit Date Anal fissure acute January 28, 2025 2:30pm [facility] Work Phone: 1(451) 256-425405-09-2024 History of Present illness Narrative* Zack Vigil MD - 03/22/2024 9:30 AM EDT Subjective Patient ID: Leon Rider is a 43 y.o. male who presents for Follow-up. Follow-up diabetes hypertension hyperlipidemia cirrhosis HPI Patient feeling okay. In the process of moving, they are moving up to [facility]. Very active packing and moving boxes. No further episodes of chest pain or shortness of breath since last visit, he ultimately did not end up getting a stress test. 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 Objective Visit Vitals BP 130/80 [...] after he moves documented [facility] Work Phone: 1(775) 158-323111-11-2023 History of Present illness Narrative* Bernabe Dooley [...] Urine Colorless (*) Clarity, Urine Clear Specific [place] Urine 1.010 pH, Urine 6.5 Leukocytes, Urine [...] Procedure Abnormality Status --------- ------ CBC auto differential[[id number]] Abnormal Final result Please view results for [...] Dooley MD 09/25/23 0735 documented in this encounterPennsylvania HospitalZzchjl08-63-7151 Hospital Discharge instructions* Discharge Instructions* Suki Bales [...] sent through Care Everywhere. * Esophageal Varices (Slovenian) documented in this encounterPennsylvania HospitalGhfzxr71-16-0264 History of Present illness Narrative* Misty Dodson RN - 02/16/2023 9:[address] Vincent Moses- Portal Hypertensive Gastropathy, (PHG) , Gastric Antral Vascular Ectasia Endoscopic report given to DRUG SAFETY SPECIALIST - Suki Bales documented in this encounterPennsylvania HospitalSnidxs96-20-2414 Attending History and physical note* Vincent Moses [...] note were not included. Kenya Andre NP [facility] Hospitalists History and Physical Same Day Surgery Patient Name:Leon Rider :1980 Admit Date: 4041217 Physicians: Zack Vigil MD (PCP) Perpetual Assessment: Leon Rider is a 42 y.o. male who presented for EGD, per the request of Dr. Moses. [facility] has been asked to see the [...] [] Microbiology [x] Outside Records [] Family [facility] Phone: 1(407) 928-252804-05-2023 History and physical note* Kenya Andre NP - 02/16/2023 9:00 AM EDT Images from the original note were not included. Kenya Andre NP [facility] Hospitalists History and Physical Same Day Surgery Patient Name:Leon Rider :1980 Admit Date: 4041217 Physicians: Zack Vigil MD (PCP) Perpetual Assessment: Leon Rider is a 42 y.o. male who presented for EGD, per the request of Dr. Moses. [facility] has been asked to see the [...] [] Microbiology [x] Outside Records [] Family [facility] Phone: 1(964) 104-827604-05-2023 History and physical note* Vincent Moses MD [...] note were not included. Kenya Andre NP [facility] Hospitalists History and Physical Same Day Surgery Patient Name:Leon Rider :1980 Admit Date: 4041217 Physicians: Zack Vigil MD (PCP) Perpetual Assessment: Leon Rider is a 42 y.o. male who presented for EGD, per the request of Dr. Moses. [facility] has been asked to see the [...] Microbiology [x] Outside Records [] Family * Kenay Andre NP - 02/16/2023 9:00 AM EDT Images from the original note were not included. Kenya Andre NP [facility] Hospitalists History and Physical Same Day Surgery [id number]1980 Admit Date: 4041217 Physicians: Zack Vigil MD (PCP) Perpetual Assessment: Leon Rider is a 42 y.o. male who presented for EGD, per the request of Dr. Moses. [facility] has been asked to see the [...] Outside Records [] Family documented in this encounterPennsylvania HospitalBfmmup53-08-8680 Procedure note* Suki Bales RN - 02/16/2023 9:00 AM EDT Pt and verbalize understanding of d/c instructions. [place] HospitalJzewjf07-33-4951 Procedure note* Suki Bales RN - 02/16/2023 9:00 AM EDT Pt and verbalize understanding of d/c instructions. documented in this [facility]02-09-2023 History of Present illness Narrative* Cyn Thomas RN - 12/23/2022 10:[address] Mishra, Two bandings applied. Report given to Bianca WAYNE. documented in this [facility]02-09-2023 Hospital Discharge instructions* Discharge Instructions* Bianca Barbour RN - 12/23/2022 10:27 AM EST Follow up with your Primary Care Physician Dr. Mishra can be reached at [phone]. Endoscopy Discharge Instructions Your Procedure Was: Esophagogastroduodenoscopy [...] return to work today. documented in this encounterPennsylvania HospitalOosltq46-07-8808 History and physical note* Paul Tad V - 12/23/2022 9:30 AM EST Images from the original note were not included. GASTROENTEROLOGY OUTPATIENT PRE-PROCEDURE NOTE Patient Name: Leon Rider MR #: [id number] Indication: Esophageal varices Brief History: Follows with [...] with endoscopic procedure as scheduled. Paul Mishra [facility] Phone: [phone]) 985-762702-09-2023 History and physical note* Paul Mishra V - 12/23/2022 9:30 AM EST Images from the original note were not included. GASTROENTEROLOGY OUTPATIENT PRE-PROCEDURE NOTE Patient Name: Leon Rider MR #: [id number] Indication: Esophageal varices Brief History: Follows with [...] as scheduled. Paul Mishra documented in this encounterPennsylvania HospitalSnsfmh02-12-2122 Procedure note* Hannah Morales RN - 12/23/2022 9:30 AM EST Patient reports that he would like to come to the appointment of 830 arrival maybe a few minutes late due to has PT appointment prior. Medications as instructed with sips of water on the morning of surgery. Please ensure you have a ambulance driver paramedic, age 18 or greater, and someone with your for 24 hours after anesthesia. No big decisions day after surgery due to anesthesia Accounts Receivable Clerk: Zelda- Accept Emergency blood transfusion: Yes [place] HospitalWfqrdc10-80-1551 Procedure note* Hannah Morales RN - 12/23/2022 9:30 AM EST Patient reports that he would like to come to the appointment of 830 arrival maybe a few minutes late due to has PT appointment prior. Medications as instructed with sips of water on the morning of surgery. Please ensure you have a ambulance driver paramedic, age 18 or greater, and someone with your for 24 hours after anesthesia. No big decisions day after surgery due to anesthesia Accounts Receivable Clerk: Zelda- Accept Emergency blood transfusion: Yes documented in this encounterPennsylvania HospitalHtxnsx70-32-2083 History and physical note* Susana Leblanc, - 10/27/2022 3:45 PM EST Images from the original note were not included. GASTROENTEROLOGY OUTPATIENT PRE-PROCEDURE NOTE Patient Name: Leon Rider MR #: [id number] Indication: EV banding Brief History: 42M GLASS [...] endoscopic procedure as scheduled. Susana Leblanc DO [facility] ([facility]) Phone: [phone]) 678-312712-14-2022 History and physical note* Susana Leblanc DO - 10/27/2022 3:45 PM EST Images from the original note were not included. GASTROENTEROLOGY OUTPATIENT PRE-PROCEDURE NOTE Patient Name: Leon Rider MR #: [id number] Indication: EV banding Brief History: 42M GLASS [...] scheduled. Susana Leblanc DO documented in this encounterPennsylvania [id number] Procedure note* Apolonia Dave RN - 10/27/2022 3:[address] Leblanc in to see pt and to discuss findings of procedure . This nurse reviewed d/c instructions also . Both voiced understanding [address]14-2022 Procedure note* Apolonia Dave RN - 10/27/2022 3:[address] Leblanc in to see pt and to discuss findings of procedure . This nurse reviewed d/c instructions also . Both voiced understanding documented in this encounterPennsylvania HospitalIwxheh25-69-6657 Hospital course Narrative* Ansley Ballard RN - [...] CPAP machine. * You must have a ambulance driver paramedic to take you home Please be sure to bring the following on the day of procedure: ambulance driver paramedic's license or photo ID , and current insurance cards. You may also bring copies of your Living Will or Healthcare Power of Diabetes Clinical Manager if available. documented in this [facility]06-01-2022 Hospital course Narrative* Loli Zee MD - 04/14/2022 5:26 PM EDT Images from the original note were not included. Loli Zee MD [facility] Hospitalists DISCHARGE SUMMARY Leon Rider . 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 Patient Directives: Has no advance directives and declining information. Patient Next of Kin / Surrogate Decision Maker is his , Zelda Rider. Insurance provider confirmed from chart: Confirmed and correct. PCP confirmed from chart: Confirmed and correct. Living Situation: Patient resides: 2-story house w/basement. Patient with following DME prior to this admission: CPAP through [facility], no additional DME. Steps [...] Independent . [facility] [address]. Patient is able to afford medications. [...] unspecified type [R06.00] [address] [place] [address] confirmed from facesheet/demographics. CODE STATUS at time [...] with Support []Home health care []Inpatient Rehab []custodial facility []half-way care []Other: Discharge Destination: [x]Home with []No Needs []Home health care []Inpatient Rehab []custodial facility []half-way care []Pending evaluation []TBD []Other: Facility info [...] a plane, noting that he traveled to [place] and back last month, about a 2 [...] negative. I discussed patient's care with admitting [facility] physician, and patient is excepted to their service. Procedures CHARLES Maciel 04/13/22 1435 CHARLES Maciel 04/13/22 1805 documented in this encounterPennsylvania HospitalZuwhnx21-91-0652 History and physical note* Tye Holbrook MD - 04/13/2022 6:03 PM EDT Images from the original note were not included. 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 All questions answered. Pt in possession of paper oxy Rx. documented in this [id number] Miscellaneous Notes* Op Note - Sukhwinder Villalobos MD - 04/22/2021 8:01 AM EDT LEON RIDER [id number] 1980 DATE 04/22/2021 OPERATIVE REPORT SURGEON SUKHWINDER [...] well. SUKHWINDER VILLALOBOS MD D 04/22/2021 07:46 [id number] T 04/22/2021 07:59 BP/MODL * Brief Op Note - Sukhwinder Villalobos MD - 04/22/2021 7:40 AM EDT Brief Post Operative Note Patient Name: Leon Rider : 1980 (40 y.o.) Date of Service: 04/22/2021 CSN: [id number] Procedure(s): REPAIR UMBILICAL HERNIA WITH MESH Pre-Operative Diagnoses: * Umbilical hernia without obstruction and without gangrene [K42.9] Post-Operative Diagnoses: * Same as Pre-Op Diagnosis * Umbilical hernia without obstruction and without gangrene [K42.9] Surgeon(s) and Role: * Sukhwinder Villalobos MD - Primary Anesthesiologist: Ha Alvarado MD TROUBLE LINEMAN: Tasneem Flores CRNA Director Human Services: Edith Feldman RN Scrub Person: ST Chris Scrub Person Orientee: ST Sivan Scrub Person Assist: ST Kyler SECURITY SME: Johana Swan RN Operative findings: umbilical hernia Intra and immediate post-operative complications: none Type of anesthesia used: General Estimated blood loss: 10 mL Estimated urine output: Refer to surgical log Specimen(s): * No specimens in log * Implant(s): Implant Name Type Inv. Item Serial No. Steam Conditioning Operator Lot No. LRB No. Used Action PATCH 1.7IN HERNIA W/STRAP SM [address] - [id number] PATCH 1.7IN HERNIA W/STRAP SM [address] [employer] [id number] N/A 1 Implanted Drain(s): * No LDAs found * Wound(s): Wound 04/22/21 Surgical Wound Abdomen (Active) Sukhwinder Villalobos MD 04/22/2021 7:40 AM documented in this [id number] History and physical note* Sukhwinder Villalobos MD - 04/22/2021 6:26 AM EDT INTERVAL HISTORY AND PHYSICAL Patient Name: Leon Rider Admit Date: [id number] MR #: [id number] : 1980 The H&P has been reviewed and the patient has been examined. I concur with the findings of the H&P. There are no significant changes. It is appropriate to proceed with the planned procedure. Sukhwinder Villalobos MD 04/22/2021 6:26 AM documented in this [id number] Nurse Note* Aleyda Jett RN - 04/17/2021 10:49 AM EDT Patient Instructions for [facility]: Prior to arrival: Please be sure to wear loose, comfortable clothing and non-skid shoes Bring your health insurance information and a photo ID, as well as your Living Will or Durable Power of Diabetes Clinical Manager for Healthcare if it is available to you. Bring your cane/walker any applicable assistive device. If you currently use a CPAP, please bring this device with you on the day of surgery. Bring a list of your medications with the name of the medication, dose and how often you are takingit. Be sure to include herbal preparations and ibjd-exj-ofjgrqi medications on this list. Do not have [...] of lotions, perfumes or powders. All nail swiss is to be removed from fingernails and [...] the day of your surgery/procedure. Parking at [facility] is free. Please park in the lot in front of the main lobby. Enter the Main Entrance where a Backhoe Operator Liaison at the information desk will greet [...] to drive yourself home. documented in this encounterNyioHealthConsult note* Clinical Note Date No Information [facility] Work Phone: Discharge summary* Clinical Note Date No Information [facility] Work Phone: Evaluation note* Diagnosis Umbilical hernia without obstruction and without gangrene- Primary Post-op pain Other acute postoperative pain documented in this encounter [facility] note* Diagnosis Body mass index 45.0-49.9, adult (CMS/HCC)- Primary Body Mass Index 45.0-49.9, adult documented in this encounter [facility] note* Diagnosis Stone, kidney Calculus of kidney documented in this encounter [facility] note* Diagnosis Dyspnea, unspecified type- Primary documented in this encounter [facility] note* Diagnosis GLASS (nonalcoholic steatohepatitis) Other chronic nonalcoholic liver disease documented in this encounter [facility] note* Diagnosis Esophageal varices with bleeding (CMS/HCC) documented in this encounter [facility] note* Diagnosis Calculus of kidney Calculus of kidney with calculus of ureter documented in this encounter [facility] note* Diagnosis Esophageal varices without bleeding, unspecified esophageal varices type (CMS/HCC) [I85.00 (ICD-10-CM)]- Primary documented in this encounter [facility] note* Diagnosis Esophageal varices without bleeding, unspecified esophageal varices type (CMS/HCC) [I85.00 (ICD-10-CM)]- Primary documented in this encounter [facility] note* Diagnosis Painless hematuria- Primary documented in this encounter [facility] note* Diagnosis Hyperlipidemia, unspecified hyperlipidemia type- Primary Primary hypertension Unspecified essential hypertension Cirrhosis of liver without ascites, unspecified hepatic cirrhosis type (CMS/HCC) (HCC) Type 2 diabetes mellitus without complication, without long-term current use of insulin (CMS/HCC) (HCC) documented in this encounter [facility] Work Phone: Evaluation note* Type Assessment Date No Information [facility] Work Phone: Evaluation note* Diagnosis Onset Date Resolution Status Admit Date Cellulitis acute Aidee 7th, 2025 12:11pm Chest pain, atypical acute Sept 2024 12:11pm [facility] Work Phone: History and physical note* Clinical Note Date No Information [facility] Work Phone: History and physical note Author Timoteo Cooper [facility] Note Date/Time July 21, 2025 12:42pm [facility] Medical Records Department [address] [place] [address] H&P Exam - Hospitalist 07/21/25 1150 MR#: [id number] Acct: [id number] Name: LEON RIDER Rep #:[id number] : 1980 45 From: Timoteo Mccarthy PCP: Dr. Alis Duran MD Status:ADM IN [facility] - General General Date of Admission: 07/21/25 Date of Service: 07/21/25 Chief Complaint: Atypical chest pain about 2 times last night. HPI Narrative LEON IRDER, is a 45 M with multiple comorbidities [...] to 10 years ago. Does not follow job placement counselor. [facility] Medical History HTN (hypertension) Diabetes Acid reflux Rectal bleeding Hemorrhoids Home Medications ?Medication ?Instructions ?Recorded ?Last Taken ?Type Diltiazem 10mg/Lidocaine 50mg See Rx Instructions [place] . BID #30 01/28/25 Unknown Rx Suppository [...] 09:08 Surgical History H/O umbilical hernia repair [place] teeth extracted Social History household members: spouse [...] 70.4 H, Lymph % (Auto) 10.4 L, [place] % (Auto) 15.8 H, Eos % (Auto) [...] edema. Mild mediastinal adenopathy. Cirrhosis. Reading Location: [id number] Assessment & Plan Assessment/Plan (1) Cellulitis: QUALIFIERS: [...] shock if needed Total time spent in hafb-mn-znin encounter in discussion of advanced directive 17 [...] 70.4 H, Lymph % (Auto) 10.4 L, [place] % (Auto) 15.8 H, Eos % (Auto) [...] Clarity Clear, Urine pH 6.5, Ur Specific [place] 1.010, Urine Protein 30 H, Urine Glucose [...] adenopathy. Cirrhosis. Charges/Coding Visit Charges Inpatient E&M: 96580 Init Hosp L3 Procedures Hospitalists Procedures: 59459 Advncd Care Plan 30 Min 07/21/25 1242 <Electronically signed by Timoteo Cooper MD> Cosigner Signature (if applicable): CC: Dr. Alis Duran MD; Dr. Timoteo Cooper MD~ Signed [facility] Work Phone: History of Present illness Narrative* Encounter Date Complaint History Of Prese nt Illness No Information [facility] Work Phone: Hospital Discharge instructions* Instructions* Lauren [...] Log into your personal health record on https://[employer] and enter J197 in the Education box to learn more about Umbilical Hernia Repair: What to Expect at Home. Current as of: October 03, 2015 Content Version: 11.0 3215-5642 [employer]. Care instructions adapted under license by your healthcare professional. If you have questions about a medical condition or this instruction, always ask your healthcare professional. [employer] disclaims any warranty or liability for your [...] sugar is high. Do not take any skep-pcs-hvxuday medicines, such as pain relievers, decongestants, or [...] Log into your personal health record on https://[employer] and enter L970 in the Education box to learn more about Diabetes Sick-Day Plan: Care Instructions. Current as of: April 05, 2016 Content Version: 11.0 5613-8078 [employer]. Care instructions adapted under license by your healthcare professional. If you have questions about a medical condition or this instruction, always ask your healthcare professional. [employer] disclaims any warranty or liability for your [...] Care Everywhere. * EGD (Upper Endoscopy): Post-op (Slovenian) * Monitored Anesthesia Care: MAC: General Info (Slovenian) documented in [facility] Discharge instructions* Attachments The following attachments cannot be sent through Care Everywhere. * Hematuria (Slovenian) documented in this [facility]Tr[facility]Canons[facility]alsp[facility] Discharge instructions Ambulatory Orders* Prior Authorization Referral - ONC/HEM Location: None Selected * Gastroenterology Location: None Selected [facility] Work Phone: Hospital Discharge instructionsAdditional Instructions Follow-up with your primary care provider in the next 3 to 5 days if not improving. Return with new or worsening symptoms. Clear liquid diet, advance as tolerated.[facility] Work Phone: Instructions* Date Instruction Additional Infor mation No Information [facility] Work Phone: Progress note* Clinical Note Date No Information [facility] Work Phone: Progress note Author León Mccray [facility] Note Date/Time August 12, 2025 9:27am [facility] Cancer [facility] [address] [place] [address] OFFICE VISIT Date of Service: 08/12/25 0823 MR#: [id number] Acct: [id number] Name: LEON RIDER Rep #: [id number] : 1980 From: León Mccray MD Age/Sex: 45/M Location: [facility] Status: Signed HPI Subjective Date of Service 08/12/25 Chief Complaint Referred for anemia. 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 He has had esophageal varices which has been banded in [place]. Denies recent bleeding [facility] Medical History Hx of cirrhosis Anemia Chronic idiopathic thrombocytopenia HTN (hypertension) Diabetes Acid reflux Rectal bleeding Hemorrhoids Surgical History H/O umbilical hernia repair [place] teeth extracted Family History Other Diabetes Heart [...] Continuous Positive Airway 07/23/25 08/12/25 H istory Pressure([facility] INFORMATIONAL USE ONLY) bumetanide 2 mg [...] applicable) CC: Dr. Alis Duran MD ~ [facility] Work Phone: Progress note Author León Mccray [facility] Note Date/Time August 19, 2025 3: 13pm [facility] Cancer [address] [place] [address] OFFICE VISIT Date of Service: 08/19/25 1447 MR#: [id number] Acct: [id number] Name: LEON RIDER Rep #: [id number] : 1980 From: León Mccray MD Age/Sex: 45/M Location: [facility] Status: Signed HPI Subjective Date of Service 08/19/25 Chief Complaint F/u for anemia. 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 He has had esophageal varices which has been banded in [place]. Denies recent bleeding. Had blood work done and comes for follow up. Feels well. [facility] History Hx of cirrhosis Anemia Chronic idiopathic thrombocytopenia HTN (hypertension) Diabetes Acid reflux Rectal bleeding Hemorrhoids Surgical History H/O umbilical hernia repair [place] teeth extracted Family History Other Diabetes Heart [...] Continuous Positive Airway 07/23/25 08/19/25 H istory Pressure([facility] INFORMATIONAL USE ONLY) bumetanide 2 mg [...] applicable) CC: Dr. Alis Duran MD ~ [facility] Work Phone: Reason for referral (narrative)* Reason For Referral No Information [facility] Work Phone: Reason for referral (narrative)No reason for referral information [facility] Work Phone: Summary Purpose Family History No Family History Records Found Family Member Type Diagnosis Age At Onset No Information Relationship Condition Age at Onset Recorded Date/T jean Not Specified Diabetes mellitus Unknown Cardiac disease Unknown Advance Directives No Advanced Directives Records FoundDocuments on File Type Date Recorded Patient Process Coordinator Expl anation Advance Directives and Livin g Will 04/22/2021 7:27 AM Documents on File Type Date Recorded Patient Process Coordinator Expl anation Power of Diabetes Clinical Manager Latest Code Status on File Code [...] Do you have a Healthcare Power of Diabetes Clinical Manager? No July 21, 2025 9:22am Advance Directive Response Recorded Date/ Time Do you have a Healthcare Power of Diabetes Clinical Manager? No July 21, 2025 1:36pm Advance Directive Response Recorded Date/ Time Do you have a Healthcare Power of Diabetes Clinical Manager? No August 21, 2025 4:38pm Do you have a Healthcare Power of Diabetes Clinical Manager? No July 21, 2025 1:36pm Procedure Findings Note [facility] Patient Name: Leon Adry Procedure [...] not included)... Note Patient: LEON RIDER RN: ([id number] Age: 40 years Sex: Male : 1980 [...] summary document to your follow up appointments. [facility] 06/26/20 14:28 [address] [place]. [address] PATIENT INFORMATION Name: LEON RIDER Address: [address] [place] [address] [place] [address] Age: 40 Years Phone: [phone] : 1980 12:00 MRN: ([id number] Sex: Male Race: White Ethnicity: Not Hispan/Lat Admitted From: Clinic or [facility] Medical Service: Gastroenterology [facility] Admit Date: 06/26/2020 12:03 PCP: Zack [...] summary document to your follow up appointments. [facility] 06/26/20 14:28 [address] [place]. [address] PATIENT INFORMATION Name: LEON RIDER Address: [address] [place] [address] [place] [address] Age: 40 Years Phone: [phone] : 1980 12:00 MRN: ([id number] Sex: Male Race: White Ethnicity: Not Hispan/Lat Admitted From: Clinic or [facility] Medical Service: Gastroenterology Nurse Unit/Bed: (CO) [facility] N[facility] Admit Date: 06/26/2020 12:03 PCP: Musa CARPIO , Zack Randolph PHYSICIANS INVOLVED WITH CARE Attending Physicians: Dandy Healy MD - Gastroenterology Admitting Physician: None found Primary Care Physician:Musa CARPIO , Zcak Randolph,,,Internal Medicine - Consults: None found DIAGNOSES: Cirrhosis Problems Active Migraines SAÚL (obstructive sleep apnea) Rash Cirrhosis Constipation E (more content not included)... Reason for Referral Specialty Diagnoses / Procedures Referred By Adrian chris Referred To Contact Radiology Diagnoses Body mass index 45.0-49.9, adult (CMS/HCC) Procedures US Abdomen Limited Dandy Healy MD [address] [place] [address] [facility] [place] Referral ID Status Reason Start Date Expiration Date V isits Requested Visits Authorized [id number] Pending Review 10/13/2021 04/11/2022 1 1 Specialty Diagnoses / Procedures Referred By Contac t Referred To Contact Radiology Diagnoses GLASS (nonalcoholic steatohepatitis) Procedures US Abdomen Limited Nino, MD Thom [address] [place] [address] [facility] [place] Referral ID Status Reason Start Date Expiration Date V isits Requested Visits Authorized [id number] Authorized 07/15/2022 01/11/2023 1 1 Specialty Diagnoses / Procedures Referred By Contac t Referred To Contact Diagnoses Esophageal varices with bleeding (CMS/HCC) Procedures EGD Anesthesia - MAC; [facility] END[facility] Carlos Jiménez MD [address] [place] [address] [facility] [place] Referral ID Status Reason Start Date Expiration Date V isits Requested Visits Authorized [id number] Authorized 09/28/2022 03/27/2023 1 1 Specialty Diagnoses / Procedures Referred By Contac t Referred To Contact Diagnoses Esophageal varices without bleeding (CMS/HCC) Procedures EGD Anesthesia - MAC; [facility] Paul Mishra V [address] [place] [address] [facility] [place] Referral ID Status Reason Start Date Expiration Date V isits Requested Visits Authorized [id number] Authorized 12/16/2022 01/16/2023 1 1 Specialty Diagnoses / Procedures Referred By Contac t Referred To Contact Diagnoses Esophageal varices without bleeding (CMS/HCC) Procedures EGD Anesthesia - MAC; [facility] EGD Anesthesia - MAC; [facility] Vincent Moses MD [address] [address] [facility] [place] Referral ID Status Reason Start Date Expiration Date V isits Requested Visits Authorized [id number] Authorized 02/16/2023 03/18/2023 1 1 Chief Complaint [...] section and content) DATE CREATED AUTHOR 12/25/2020 [facility] DATE CREATED AUTHOR AUTHOR'S ORGANIZ ATION 04/10/2021 [facility] DATE CREATED AUTHOR AUTHOR'S ORGANIZ ATION 04/22/2021 [facility] DATE CREATED AUTHOR AUTHOR'S ORGANIZ ATION 03/20/2022 [facility] DATE CREATED AUTHOR AUTHOR'S ORGANIZ ATION 02/18/2023 [facility] DATE CREATED AUTHOR AUTHOR'S ORGANIZ ATION 08/04/2023 [facility] DATE CREATED AUTHOR AUTHOR'S ORGANIZ ATION 09/25/2023 [facility] DATE CREATED AUTHOR AUTHOR'S ORGANIZ ATION 03/24/2024 [facility] DATE CREATED AUTHOR AUTHOR'S ORGANIZ ATION 09/19/2025 [facility] Reason for Visit (unrecogniz ed section and content) Status Reason Specialty Diagnoses / Procedures Referre d By Contact Referred To Contact Diagnoses Umbilical hernia without obstruction and without gangrene Umbilical hernia without obstruction and without gangrene [K42.9] Procedures MO REPAIR UMBILICAL HERNIA >= 5 YRS REDUC Sukhwinder Villalboos MD [address] [place] [address] Reason Comments Panic Attack Per EMS report patie nt had anxiety attack at work; Patient states that symptoms resolved on arrival to ED. Specialty Diagnoses / Procedures Referred By Adrian t Referred To Contact Diagnoses SOB (shortness of breath) Dyspnea, unspecified type Procedures Tye Holbrook MD [address] [facility] [address] [place] [address] [place] [phone] Referral ID Status Reason Start Date Expiration Date Visits Re quested Visits Authorized [id number] 1 1 Specialty Diagnoses / Procedures Referred By Adrian t Referred To Contact Radiology Diagnoses GLASS (nonalcoholic steatohepatitis) Procedures US Abdomen Limited Oneill, MD Thom [address] [facility] [address] [place] [address] [facility] [place] Referral ID Status Reason Start Date Expiration Date V isits Requested Visits Authorized [id number] Authorized 07/15/2022 01/11/2023 1 1 Specialty Diagnoses / Procedures Referred By Contac t Referred To Contact Diagnoses Esophageal varices with bleeding (CMS/HCC) Procedures EGD Anesthesia - MAC; [facility] Carlos Jiménez MD [address] [place] [address] [facility] [place] Referral ID Status Reason Start Date Expiration Date V isits Requested Visits Authorized [id number] Authorized 09/28/2022 03/27/2023 1 1 Specialty Diagnoses / Procedures Referred By Contac t Referred To Contact Diagnoses Esophageal varices without bleeding (CMS/HCC) Procedures EGD Anesthesia - MAC; [facility] Paul Mishra V [address] [place] [address] [facility] [place] Referral ID Status Reason Start Date Expiration Date V isits Requested Visits Authorized [id number] Authorized 12/16/2022 01/16/2023 1 1 Specialty Diagnoses / Procedures Referred By Contac t Referred To Contact Diagnoses Esophageal varices without bleeding (CMS/HCC) Procedures EGD Anesthesia - MAC; [facility]COPY EGD Anesthesia - MAC; [facility] Vincent Moses MD [address] [address] [facility] [place] Referral ID Status Reason Start Date Expiration Date V isits Requested Visits Authorized [id number] Authorized 02/16/2023 03/18/2023 1 1 Reason Comments [...] 0821 (Given - Provid er: Jean Carlos Isirdo RN) Continuous Medication Order 04/20/2021 04/21/2021 04/22/2021 lactated Ringers infusion 50 mL/hr, Intravenous, Continuous, Starting on Tue04/22/21 at 0715, Pre-Procedure 0637 (New Bag - Prov ider: Connie Stokes RN)0714 (Paused - Provider: Tasneem Flores CRNA - Comment: Switch to gravity)0715 (Restarted - Provider: Tasneem Flores CRNA)0741 (New Bag - Provider: Tasneem lFores CRNA)0859 (Stopped - Provider: Jean Carlos Isidro [...] For 1 dose 1659 (Given - Provider: Geryr Valdes) pantoprazole (PROTONIX) EC tablet 40 mg [...]
Care Teams (unrecognized sec tion and content) Deputy Sheriff K9 Handler Relationship Specialty Start Date End Date Zack Vigil MD [address] [place] [id number] PCP - General Internal Medicine 12/02/21 Deputy Sheriff K9 Handler Relationship Specialty Start Date End Date Zack Vigil MD [address] [place] [address] PCP - General Internal Medicine 12/02/21 Deputy Sheriff K9 Handler Relationship Specialty Start Date End Date Zack Vigil MD [address] [place] [address] PCP - General Internal Medicine 12/02/21 Deputy Sheriff K9 Handler Relationship Specialty Start Date End Date Zack Vigil MD [address] [place] [address] PCP - General Internal Medicine 12/02/21 Deputy Sheriff K9 Handler Relationship Specialty Start Date End Date Zack Vigil MD [address] [place] [phone] PCP - General Internal Medicine 12/02/21 Deputy Sheriff K9 Handler Relationship Specialty Start Date End Date Zack Vigil MD [address] [place] [address] PCP - General Internal Medicine 12/02/21 Deputy Sheriff K9 Handler Relationship Specialty Start Date End Date Zack Vigil MD [address] [place] [address] PCP - General Internal Medicine 12/02/21 Deputy Sheriff K9 Handler Relationship Specialty Start Date End Date Zack Vigil MD [address] [place] [address] PCP - General Internal Medicine 12/02/21 Deputy Sheriff K9 Handler Relationship Specialty Start Date End Date Zack Vigil MD [address] [place] [phone] PCP - General Internal Medicine 12/12/19 Roland Chavez [address] [place] [address] Referring Physician Otolaryngology 11/22/23 Thom Oneill MD [address] [place], [place] [address]katya Garg [address] [address] Referring Physician Gastroenterology 11/22/23 Name [...] St art: July 19, 2025 Yusef Mccoy DIRECTOR OCCUPATIONAL, DIRECTOR OCCUPATIONAL-C Attending Provider Active Start: July 19, 2025 Yusef Mccoy DIRECTOR OCCUPATIONAL, DIRECTOR OCCUPATIONAL-C Referring Provider Active Start: July 19, 2025 Team Status: Active Member Role/Relationship Status Carole Duran MD Primary Care Provider Active St art: July 21, 2025 Dr. Denice Leal DO Emergency Provider Active Start: July 21, 2025 Dr. Timoteo Copoer MD Admit Provider Active Sta rt: July 21, 2025 Dr. Timoteo Cooper MD Attending Provider Active Start: July 21, 2025 Dr. Timoteo Cooper MD Other Provider Active Sta rt: July 21, 2025 Team Status: Inactive Member Role/Relationship Status Carole Duran MD Primary Care Provider Active St art: July 19, 2025 End: July 19, 2025 Yusef Mccoy DIRECTOR OCCUPATIONAL, DIRECTOR OCCUPATIONAL-C Attending Provider Active Start: July 19, 2025 End: July 19, 2025 Yusef Mccoy DIRECTOR OCCUPATIONAL, DIRECTOR OCCUPATIONAL-C Referring Provider Active Start: July 19, 2025 [...] 19, 2025 End: July 19, 2025 [facility] OCCUPATIONAL, DIRECTOR OCCUPATIONAL-C Attending physician Active Start: July 19, 2025 End: July 19, 2025 [facility]ef [facility] DIRECTOR OCCUPATIONAL, DIRECTOR OCCUPATIONAL-C Referring Provider Active Start: July 19, 2025 End: July 19, 2025 Team Status: Active Member Role/Relationship Status Dates Dr. Kalia Mcmahan MD Attending physician Active Start: July 19, 2025 [facility]ef [facility] DIRECTOR OCCUPATIONAL, DIRECTOR OCCUPATIONAL-C Referring Provider Active Start: July 19, 2025 [...] BE BASED ON THE PRIMARY CLINICAL RECORDS. [facility] provides no warranty or guarantee of the accuracy or completeness of information in this document.
--- NOTE | 2025-11-13 09:35 | PRE.ANES_ITS ---
ASA Classification* ASA Classification ASA Classification: 3 Assessment & Plan Anesthesia* Anesthesia Assessment Anesthesia Assessment: Discussed sedation and/or anesthesia options, risks, benefits, and alternatives with patient/parents/legal guardian/POA. Questions invited. The patient/parents/legal guardian/POA seems to understand and agrees to proceed with anesthesia plan. Reviewed the physical assessment, medical history, allergy history and patient home medications list prior to surgery/procedure/anesthetic and documented any changes. Performed airway and anesthesia risk assessments. Anesthesia Type Anesthesia Type: MAC Anesthesia Focused Assessment* Airway Assessment Mouth opens: >3 cm Mallampati Score: II Labs Anesthesia Preop lab: CBC WBC, (4.4-11.0) 4.8 K/mm3 10/26/25, 10:44 RBC, (4.6-6.2) 3.10 M/mm3 L 10/26/25, 10:44 Hgb, (13.0-16.5) 9.2 g/dL L 10/26/25, 10:44 Hct, (40-54) 30.0 % L 10/26/25, 10:44 Plt Count, (150-450) 104 K/mm3 L 10/26/25, 10:44 CHEMISTRY Potassium, (3.3-5.1) 3.2 mmol/L L 10/26/25, 10:44 Sodium, (133-145) 134 mmol/L 10/26/25, 10:44 Magnesium, (1.5-2.2) 1.7 mg/dL 08/12/25, 09:28 Phosphorus, (2.7-4.5) 2.9 mg/dL 08/12/25, 09:28 BUN, (4-19) 11 mg/dL 10/26/25, 10:44 Creatinine, (0.70-1.20) 0.73 mg/dL 10/26/25, 10:44 Glucose, (70-99) 158 mg/dL H 10/26/25, 10:44 POC Glucose, (74-106) 113 mg/dL H 10/09/25, 18:08 TSH, (0.300-4.200) 1.380 uIU/mL 07/22/25, 04:42 COAG PT, (11.7-14.9) 18.6 SECONDS H 10/26/25, 10:44 Pre-Assessment Diagnosis/Proposed Procedure Planned Operative Procedure(s): EGD, COLONOSCOPY Anesthesia History 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 When Was Last Pacemaker Check QUESTION #4 FULL TEXT: You/Your Family Experience fever (hyperthermia) with Anesthesia Last Oral Intake Last Oral intake: Last Oral Intake NPO since Meds taken in AM with sips of water? 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 Female No 11/11/25 09:02 HX of Motion Sickness No 11/11/25 09:02 HX of N/V After Surgery No 11/11/25 09:02 Non-Smoker Yes 11/11/25 09:02 Duration of Surgery greater No 11/11/25 09:02 than 60 minutes Number of Risk Factors 1 11/11/25 09:02 PONV Score Low Risk 11/11/25 09:02 Height & Weight Height & Weight: Anesthesia: Height & Weight Height 5 ft 11 in 10/26/25 10:10 Respiratory Assessment Respiratory Assessment - windmill technician: Respiratory Tract Infection Hx - windmill technician Hx Respiratory Tract Infection No 11/11/25 09:02 STOP Sleep Apnea STOP Sleep Apnea - windmill technician: STOP Sleep Apnea - windmill technician Hx Hypertension Yes 11/11/25 09:02 Hx Sleep Apnea Yes 11/11/25 09:02 CPAP Yes 11/11/25 09:02 BIPAP No 11/11/25 09:02 Do you snore loudly (louder than talking or can be heard Do you often feel tired/ fatigued/ sleepy during daytime? Has anyone observed you stop breathing during sleep? STOP Results Positive 11/11/25 09:02 QUESTION #5 FULL TEXT : Do you snore loudly (louder than talking or can be heard through closed doors)? 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 Specify any problems Hx of Preganancy in last 3 N/A 11/11/25 09:02 Months Nurse Filling Out Transfusion VLEHMAN 11/11/25 09:02 & Questions: Date: 11/11/25 11/11/25 09:02 Time: 09:16 11/11/25 09:02 Patient unable to answer at this time (ie. confused, unrespo /Reproduction History /Reproductive History - windmill technician: /Reproductive Hx- windmill technician Hx Now No 11/11/25 09:02 Gestational Age (in weeks): EDC: Hx Hx Para Hx Section SAB No 11/11/25 09:02 Does the father of the baby or his family experience fever w Father of the baby Malignant Hypertension history comment Active Medications Active Medications: Current Medications Generic Name Dose Route Start Last Admin Trade Name Freq PRN Reason Stop Dose Admin Lactated Ringer's 1,000 mls @ 15 mls/hr 11/13/25 09:30 IV .Q48H DERRICK PFSH Medical History Wears glasses Scab History of renal disease Anemia High cholesterol Restless legs Gastric reflux CPAP (continuous positive airway pressure) dependence Sleep apnea History of edema Cardiology follow-up encounter History of echocardiogram History of stress test Chronic venous stasis Anxiety Steatosis of liver SAÚL (obstructive sleep apnea) Kidney stones Cirrhosis Non-smoker Irregular heart beat Congestive heart failure (CHF) Chronic idiopathic thrombocytopenia Hx of cirrhosis Anemia HTN (hypertension) Diabetes Acid reflux Rectal bleeding Hemorrhoids Home Medications ?Medication ?Instructions ?Recorded ?Last Taken ?Type metformin 1,000 mg tablet 1,000 mg PO BID diabetes 10/09/25 History atorvastatin 20 mg tablet 20 mg PO DAILY cholesterol 0 07/21/25 10/09/25 History omeprazole 40 mg capsule,delayed 40 mg PO DAILY stomac h 07/21/25 11/13/25 06:00 History release repaglinide 1 mg tablet 1 mg PO BID diabetes 5 10/09/25 History CPAP - Continuous Positive Airway 07/23/25 Unknown Hi story Pressure([facility] INFORMATIONAL USE ONLY) bumetanide 2 mg tablet 2 mg PO BID #60 tabs 5 10/09/25 Rx nadolol 20 mg tablet 20 mg PO BID #60 tabs 11/13/25 06:00 Rx empagliflozin 10 mg tablet 10 mg PO QAM 10/03/2511/10 History (Jardiance) ropinirole 0.5 mg tablet 0.5 mg PO QDAY 10/03/2509/15 History potassium chloride 20 mEq 20 meq PO DAILY 10/09/25 History tablet,extended release lactulose 10 gram oral packet 10 g PO BID #30 ea 10/26 Unknown Rx Allergy/AdvReac Type Severity Reaction Status Date / Time No Known Allergies Allergy Verified 11/13/25 09:29 Family History Other Diabetes Heart disease Surgical History History of esophagogastroduodenoscopy (EGD) H/O umbilical hernia repair [place] teeth extracted Social History household members: spouse housing: house Smoking Status: Never smoker alcohol intake: never substance use type: does not use Review of Systems (Anesthesia) ROS Narrative System reviewed and no additional complaints, except as documented.
[2025-11-13 09:39] VITALS: BP 115/58; PULSE 80; RESP 16; TEMP 37.4; O2SAT 94; BMI 47.6
--- NOTE | 2025-11-13 09:59 | PCM.HP.STD ---
HPI - General General Date of Admission: 11/13/25 Date of Service: 11/13/25 Chief Complaint: Cirrhosis HPI Narrative YAMIL RIDER, is a 45 M who presents [ Chief Complaint: Cirrhosis Patient referred from hematology due to anemia and history of [facility] cirrhosis. Patient with past medical history of rectal bleeding, diabetes, hypertension, cellulitis, SAÚL and CHF. Establishment office visit 10/03/2025 patient diagnosed with cirrhosis at a facility in [place] a few years ago. His last EGD was 3 years ago with esophageal varices banding. He has not followed up with them since and is looking for a new GI provider. He notes that he typically has ultrasounds of his liver routinely. Last colonoscopy was about 4 years ago with polyps. He was hospitalized in July due to chest pain and this is when he was found to be anemic. At that time his medications were switched around and his swelling has improved since then. He is having iron infusions with hematology. Prothrombin Time w/INR Today K74.60 - Unspecified cirrhosis of liver CBC W/Diff, Automated Today K74.60 - Unspecified cirrhosis of liver Comprehensive Metabolic Profil Today K74.60 - Unspecified cirrhosis of liver AFP, Tumor Marker Today K74.60 - Unspecified cirrhosis of liver ABD Limited w/ Elastography Today K74.60 - Unspecified cirrhosis of liver Coding] [facility] Medical History Wears glasses Scab History of renal disease Anemia High cholesterol Restless legs Gastric reflux CPAP (continuous positive airway pressure) dependence Sleep apnea History of edema Cardiology follow-up encounter History of echocardiogram History of stress test Chronic venous stasis Anxiety Steatosis of liver SAÚL (obstructive sleep apnea) Kidney stones Cirrhosis Non-smoker Irregular heart beat Congestive heart failure (CHF) Chronic idiopathic thrombocytopenia Hx of cirrhosis Anemia HTN (hypertension) Diabetes Acid reflux Rectal bleeding Hemorrhoids Home Medications ?Medication ?Instructions ?Recorded ?Last Taken ?Type metformin 1,000 mg tablet 1,000 mg PO BID diabetes 01/28/25 10/09/25 History atorvastatin 20 mg tablet 20 mg PO DAILY cholesterol 07/21/25 10/09/25 History omeprazole 40 mg capsule,delayed 40 mg PO DAILY stomach 07/21/25 11/13/25 06:00 History release repaglinide 1 mg tablet 1 mg PO BID diabetes 07/21/25 10/09/25 History CPAP - Continuous Positive Airway 07/23/25 Unknown History Pressure([facility] INFORMATIONAL USE ONLY) bumetanide 2 mg tablet 2 mg PO BID #60 tabs 07/26/25 10/09/25 Rx nadolol 20 mg tablet 20 mg PO BID #60 tabs 07/26/25 11/13/25 06:00 Rx empagliflozin 10 mg tablet 10 mg PO QAM 10/03/25 11/10/25 History (Jardiance) ropinirole 0.5 mg tablet 0.5 mg PO QDAY 10/03/25 10/07/25 History potassium chloride 20 mEq 20 meq PO DAILY 10/09/25 10/07/25 History tablet,extended release lactulose 10 gram oral packet 10 g PO BID #30 ea 10/26/25 Unknown Rx Allergy/AdvReac Type Severity Reaction Status Date / Time No Known Allergies Allergy Verified 11/13/25 09:39 Family History Other Diabetes Heart disease Surgical History History of esophagogastroduodenoscopy (EGD) H/O umbilical hernia repair [place] teeth extracted Social History household members: spouse housing: house Smoking Status: Never smoker alcohol intake: never substance use type: does not use ROS Constitutional Constitutional: Denies fatigue, fever(s), poor appetite, weight gain or weight loss Gastrointestinal Gastrointestinal: Denies belching, bloating, change in bowel habits, change in stool character, chewing difficulty, coffee ground emesis, constipation, cramping, diarrhea, dyspepsia, dysphagia, early satiety, excessive flatus, fecal incontinence, heartburn, hematemesis, hematochezia, hemorrhoids, loose stools, melena, nausea, odynophagia, rectal bleeding, tenesmus, vomiting or weight changes Patient's Goals Of Care . What would you like to achieve or improve as a result of your hospital stay?: none Vital Signs Vital Signs Vital Signs: 11/13/25 09:39 11/13/25 09:39 11/13/25 09:39 Temperature 99.3 F H Temperature Source Temporal Pulse Rate 80 Respiratory Rate 16 Respiratory Pattern Normal Blood Pressure 115/58 L Blood Pressure Mean 77 Blood Pressure Source Monitor Blood Pressure Position Semi-Fowlers Blood Pressure Location Left Arm Baseline BP 115/58 Pulse Ox 94 Oxygen Delivery Method Room Air Weight Weight: 341 lb 11.464 oz Body Mass Index (BMI) 47.6 Physical Exam Const alert, oriented x3, no apparent distress and healthy appearing General Appearance: cooperative GI normal to inspection, nondistended, normoactive bowel sounds, soft to palpation, non-tender and non-distended Percussion: normal to percussion Rectal Exam: deferred Results Lab / Micro Data Labs: Laboratory Results - last 24 hr 11/13/25 09:33: POC Glucose 165 H Assessment & Plan Assessment/Plan (1) Positive fecal occult blood test: (2) Iron deficiency anemia: QUALIFIERS: Iron deficiency anemia type: chronic blood loss Qualified Code(s): D50.0 - Iron deficiency anemia secondary to blood loss (chronic) (3) Cirrhosis: PLAN: Assessment and Plan Assessment and Plan (1) Cirrhosis: Status: Acute Plan: Yamil is a 45-year-old male patient with past medical history of diabetes, hypertension, CHF and cirrhosis here today for establishment. Patient previously seeing GI in [place] however he has not seen them in many years. When he was seeing GI he would have routine liver ultrasounds as well as EGDs. He has a history of esophageal varices which were banded 3 years ago. Patient takes nadolol and spironolactone. He denies past medical history of alcohol use. I have ordered CBC, CMP, PT/INR and AFP to monitor his disease. Will calculate his MELD pending these results. I have also ordered liver elastography for further evaluation of his liver. He will undergo repeat EGD for surveillance of esophageal varices. Recommended continuing nadolol and spironolactone. Will consider increasing spironolactone and/or adding Lasix pending results. He declined colonoscopy. Recommend following up with Dr. Cooper after his endoscopy. - CBC, CMP, PT/INR and AFP - Liver elastography - Continue spironolactone and nadolol - EGD - Follow-up with Dr. Cooper Note: Portions of this note may have been selectively carried forward from previous documentation to ensure continuity and accuracy of the clinical record. All imported information has been reviewed and updated as necessary to reflect the current patient status, findings, and clinical decision-making for this encounter. [employer] speech recognition oceanic sciences professor software was used to create portions of this document. Sound alike and misspelled words, as well as other oceanic sciences professor errors may be contained in the documentation. Orders: Orders
--- NOTE | 2025-11-13 10:30 | COLBX_PTH ---
PATIENT: LEON RIDER LOC: EN U#:[id number] AGE/SX: 45/M ROOM: RE11/13/[address]: Dr. Contreras Arroyo DO : 1980 BED: DIS: 11/13/2025 SPEC #: [id number] RECD: 11/14/25 13:13 STATUS: JORGE BOSTON #: [id number] BRIDGET: 11/13/25 10:[address]: Contreras Arroyo DEPT: SURGICAL PATHOLOGY RECD BY: Quinton Partida ENTERED: 11/15/25 09:24 SP TYPE: COLON BX OTHR DR: Alis Mace MD Tissues: A - Gastric mucous membrane B - Duodenum, NOS C - Ileum, NOS Procedures: Immunohistochemical Stains Surgery Specimen Level IV HEADER OPERATION: Colonoscopy with biopsy, EGD with biopsy PRE-OP DIAGNOSIS: Positive fecal occult blood test, iron deficiency anemia, cirrhosis TISSUE SUBMITTED: A. Gastric antrum for H.Pylori, B. Duodenum, C. Terminal ileum MICROSCOPIC DIAGNOSIS A. Stomach, antrum, biopsy: - Antral mucosa with chronic gastritis, with vascular telangiectasia/congestion and scattered intravascular fibrin thrombi - see note. - IHC negative for H. pylori organisms. 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 Recommend clinical and endoscopic correlation. B. Duodenum, biopsy: - Normal villous architecture with dilated lacteals. - Negative for increased intraepithelial lymphocytes. C. Terminal ileum, biopsy: - Normal villous morphology with mildly dilated lacteals. MICROSCOPIC DESCRIPTION Slides are reviewed. All matched controls reacted appropriately. These tests were developed and their performance characteristics determined by Laboratory. They may not have been cleared or approved by the U.S. Food and Drug Administration. The FDA has determined that such clearance or approval is not necessary. The above immunohistochemical markers are viewed by the Pathologist. GROSS DESCRIPTION A. Received is one container labeled with the patient name and designated Gastric antrum. The specimen consists of two irregular fragments of light vidal soft tissue that in aggregate measure 1.5 x 0.5 x 0.3 cm. The specimen is totally submitted in one cassette. B. Received is one container labeled with the patient name and designated Duodenum. The specimen consists of multiple irregular fragments of light vidal soft tissue that in aggregate measure 1.2 x 0.5 x 0.3 cm. The specimen is totally submitted in one cassette. C. Received is one container labeled with the patient name and designated Terminal ileum. The specimen consists of two irregular fragments of light vidal soft tissue that in aggregate measure 1.2 x 0.5 x 0.3 cm. The specimen is totally submitted in one cassette. 11/15/2025 CPT:[id number]
[2025-11-13] MEDS: Lidocaine 1% (5 ml sdv) 5 ML Vial 10 ML IV (10:52)
[2025-11-13 11:15] VITALS: BP 108/55; BP 115/58; PULSE 76; RESP 20; TEMP 36.7; O2SAT 96
--- NOTE | 2025-11-13 11:17 | PCM.POST.ANE ---
Anesthesia: Postop Eval I Current Vital Signs Temperature: 98.1 F Pulse Rate: 77 Blood Pressure: 109/55 Respiratory Rate: 16 Pulse Ox: 96 Assessment Airway patent: Yes Spontaneous unlabored respirations: Yes nausea: No Vomiting: No Anesthesia Complication: No Fluid Hydration Crystalloid volume administer (ml): 400 Total IV fluid infused: 400 Progress Note Anesthesia document: Postop Eval 1 completed: Yes
[2025-11-13 11:18] VITALS: BP 109/55; PULSE 77; RESP 16; TEMP 36.7; O2SAT 96
[2025-11-13 11:20] VITALS: BP 113/64; BP 115/58; PULSE 79; RESP 18; O2SAT 93
[2025-11-13 11:25] VITALS: BP 110/63; BP 115/58; PULSE 80; RESP 18; TEMP 36.7; O2SAT 97
--- NOTE | 2025-11-13 11:26 | OP.EGD_ITS ---
Patient Name: aYmil Clifton Procedure Date: 11/13/2025 10:43 AM Date of : 1980 Age: 45 Procedure: Upper GI endoscopy Indications: Iron deficiency anemia Providers: Contreras Arroyo DO Referring MD: Alis Mace Md Medicines: Monitored Anesthesia Care Patient Profile: This is a 45 year old male. Refer to note in patient chart for documentation of history and physical. Complications: No immediate complications. Procedure: Pre-Anesthesia Assessment: - Prior to the procedure, a History and Physical was performed, and patient medications and allergies were reviewed. The patient is competent. The risks and benefits of the procedure and the sedation options and risks were discussed with the patient. All questions were answered and informed consent was obtained. Patient identification and proposed procedure were verified by the physician in the pre-procedure area. Mental Status Examination: alert and oriented. Airway Examination: normal oropharyngeal airway and neck mobility. Respiratory Examination: clear to auscultation. CV Examination: normal. Prophylactic Antibiotics: The patient does not require prophylactic antibiotics. Prior Anticoagulants: The patient has taken no anticoagulant or antiplatelet agents except for NSAID medication. ASA Grade Assessment: II - A patient with mild systemic disease. After reviewing the risks and benefits, the patient was deemed in satisfactory condition to undergo the procedure. The anesthesia plan was to use monitored anesthesia care (MAC). Immediately prior to administration of medications, the patient was re-assessed for adequacy to receive sedatives. The heart rate, respiratory rate, oxygen saturations, blood pressure, adequacy of pulmonary ventilation, and response to care were monitored throughout the procedure. The physical status of the patient was re-assessed after the procedure. After obtaining informed consent, the endoscope was passed under direct vision. Throughout the procedure, the patient's blood pressure, pulse, and oxygen saturations were monitored continuously. The colonoscope was introduced through the mouth, and advanced to the fourth part of the duodenum. Small bowel enteroscopy was deemed necessary. The upper GI endoscopy was accomplished without difficulty. The patient tolerated the procedure well. Scope In: 10:54:29 AM Scope Out: 10:57:23 AM Total Procedure Duration Time 0 hours 2 minutes 54 seconds Findings: Grade I varices were found in the lower third of the esophagus. They were 5 mm in largest diameter. Type 1 gastroesophageal varices (GOV1, esophageal varices which extend along the lesser curvature) were found in the cardia and in the gastric fundus. There were no stigmata of recent bleeding. Severe portal hypertensive gastropathy was found in the entire examined stomach. Diffuse severely erythematous mucosa with bleeding was found in the gastric antrum. Biopsies were taken with a cold forceps for histology. Localized moderate inflammation was found in the entire duodenum. Impression: - Grade I esophageal varices. - Type 1 gastroesophageal varices (GOV1, esophageal varices which extend along the lesser curvature). - Portal hypertensive gastropathy. - Erythematous mucosa in the antrum. Biopsied. - Duodenitis. Recommendation: - Await pathology results. - Repeat upper scope in 3 months - Continue present medications. Procedure Code(s): --- Professional --- 31574, Small intestinal endoscopy, enteroscopy beyond second portion of duodenum, not including ileum; with biopsy, single or multiple CPT copyright 2021 [employer]. All rights reserved. The codes documented in this report are preliminary and upon clinical fellow review may be revised to meet current compliance requirements. Contreras Arroyo DO 11/13/2025 11:26:35 AM This report has been signed electronically. Number of Addenda: 0 Note Initiated On: 11/13/2025 10:43 AM
--- NOTE | 2025-11-13 11:27 | OP.PROVAT_ITS ---
11/13/2025 Alis Mace Md Re : Upper GI endoscopy procedure for Yamil Clifton Dear [place] This procedure was performed on Thursday, November 13, 2025. My impressions and recommendations are as follows: Impressions : - Grade I esophageal varices. - Type 1 gastroesophageal varices (GOV1, esophageal varices which extend along the lesser curvature). - Portal hypertensive gastropathy. - Erythematous mucosa in the antrum. Biopsied. - Duodenitis. Recommendations : - Await pathology results. - Repeat upper scope in 3 months - Continue present medications. My findings are described in the full procedure note, which is enclosed. If I can be of further assistance, please feel free to contact me at . Sincerely, Contreras Arroyo, 11/13/2025 11:26:35 AM This report has been signed electronically.
--- NOTE | 2025-11-13 11:29 | OP.PROVAT_ITS ---
11/13/2025 Alis Mace Md Re : Colonoscopy procedure for Yamil Clifton Dear [place] This procedure was performed on Thursday, November 13, 2025. My impressions and recommendations are as follows: Impressions : - Diverticulosis in the recto-sigmoid colon and in the sigmoid colon. - The examination was otherwise normal on direct and retroflexion views. - No specimens collected. Recommendations : - Discharge patient to home. - Resume previous diet. - Continue present medications. - Await pathology results. - Repeat colonoscopy in 5 years for surveillance. My findings are described in the full procedure note, which is enclosed. If I can be of further assistance, please feel free to contact me at . Sincerely, Contreras Arroyo, 11/13/2025 11:28:51 AM This report has been signed electronically.
--- NOTE | 2025-11-13 11:29 | OP.COLON_ITS ---
Patient Name: Yamil Clifton Procedure Date: 11/13/2025 10:57 AM Date of : 1980 Age: 45 Procedure: Colonoscopy Indications: Iron deficiency anemia Providers: Contreras Arroyo DO Referring MD: Alis Mace Md Medicines: Monitored Anesthesia Care Patient Profile: This is a 45 year old male. Refer to note in patient chart for documentation of history and physical. Last Colonoscopy: several years ago. Complications: No immediate complications. Procedure: Pre-Anesthesia Assessment: - Prior to the procedure, a History and Physical was performed, and patient medications and allergies were reviewed. The patient is competent. The risks and benefits of the procedure and the sedation options and risks were discussed with the patient. All questions were answered and informed consent was obtained. Patient identification and proposed procedure were verified by the physician in the pre-procedure area. Mental Status Examination: alert and oriented. Airway Examination: normal oropharyngeal airway and neck mobility. Respiratory Examination: clear to auscultation. CV Examination: normal. Prophylactic Antibiotics: The patient does not require prophylactic antibiotics. Prior Anticoagulants: The patient has taken no anticoagulant or antiplatelet agents except for NSAID medication. ASA Grade Assessment: II - A patient with mild systemic disease. After reviewing the risks and benefits, the patient was deemed in satisfactory condition to undergo the procedure. The anesthesia plan was to use monitored anesthesia care (MAC). Immediately prior to administration of medications, the patient was re-assessed for adequacy to receive sedatives. The heart rate, respiratory rate, oxygen saturations, blood pressure, adequacy of pulmonary ventilation, and response to care were monitored throughout the procedure. The physical status of the patient was re-assessed after the procedure. After I obtained informed consent, the scope was passed under direct vision. Throughout the procedure, the patient's blood pressure, pulse, and oxygen saturations were monitored continuously. The colonoscope was introduced through the anus and advanced to the terminal ileum. The colonoscopy was performed without difficulty. The patient tolerated the procedure well. The quality of the bowel preparation was adequate. The terminal ileum, ileocecal valve, appendiceal orifice, and rectum were photographed. Scope In: 10:59:20 AM Scope Withdrawal Time 0 hours 8 minutes 31 seconds Scope Out: 11:10:51 AM Total Procedure Duration Time 0 hours 11 minutes 31 seconds Findings: The perianal and digital rectal examinations were normal. Multiple small and large-mouthed diverticula were found in the recto-sigmoid colon and sigmoid colon. The exam was otherwise without abnormality on direct and retroflexion views. Localized mild inflammation characterized by erythema was found in the terminal ileum. Biopsies were taken with a cold forceps for histology. Verification of patient identification for the specimen was done. Estimated blood loss was minimal. Impression: - Diverticulosis in the recto-sigmoid colon and in the sigmoid colon. - The examination was otherwise normal on direct and retroflexion views. - No specimens collected. Recommendation: - Discharge patient to home. - Resume previous diet. - Continue present medications. - Await pathology results. - Repeat colonoscopy in 5 years for surveillance. Procedure Code(s): --- Professional --- 53731, Colonoscopy, flexible; with biopsy, single or multiple CPT copyright 2021 [employer]. All rights reserved. The codes documented in this report are preliminary and upon oil pit attendant review may be revised to meet current compliance requirements. Contreras Arroyo DO 11/13/2025 11:28:51 AM This report has been signed electronically. Number of Addenda: 0 Note Initiated On: 11/13/2025 10:57 AM
--- NOTE | 2025-11-13 11:38 | POSTOPAN2_ITS ---
Anesthesia Postop Eval I Sum Postop Eval Completion status Anesthesia document: Postop Eval 1 completed: Yes Anesthesia Postop Eval I Summary Anesthesia Postop Eval I Summary: Anesthesia Postop Eval I: Assessment Summary Airway patent Yes 11/13/25 11:18 [email or web address] Spontaneous unlabored Yes 11/13/25 11:18 [email or web address] respirations Mental status nausea No 11/13/25 11:18 [email or web address] Vomiting No 11/13/25 11:18 [email or web address] Anesthesia Postop Eval I: Fluid Summary Crystalloid volume administer 400 11/13/25 11:18 [email or web address] (ml) Colloids volume administered ( ml) Blood Product volume administered (ml) Total IV fluid infused 400 11/13/25 11:18 [email or web address] Anesthesia Postop Eval I: Summary Notes Anesthesia Complication No 11/13/25 11:18 [email or web address] Anesthesia Complication Comment: Post-operative progress note Anesthesia: Postop Eval II Evaluation Mental status: Awake Pain Level: 0 nausea: No Vomiting: No
--- NOTE | 2025-11-13 11:38 | PCM.POSTANE2 ---
Anesthesia Postop Eval I Sum Postop Eval Completion status Anesthesia document: Postop Eval 1 completed: Yes Anesthesia Postop Eval I Summary Anesthesia Postop Eval I Summary: Anesthesia Postop Eval I: Assessment Summary Airway patent Yes 11/13/25 11:18 QUALITY CONTROL [email or web address] Spontaneous unlabored Yes 11/13/25 11:18 QUALITY CONTROL [email or web address] respirations Mental status nausea No 11/13/25 11:18 QUALITY CONTROL [email or web address] Vomiting No 11/13/25 11:18 QUALITY [email or web address] [email or web address] Anesthesia Postop Eval I: Fluid Summary Crystalloid volume administer 400 11/13/25 11:18 QUALITY CONTROL [email or web address] (ml) Colloids volume administered ( ml) Blood Product volume administered (ml) Total IV fluid infused 400 11/13/25 11:18 QUALITY [email or web address] [email or web address] Anesthesia Postop Eval I: Summary Notes Anesthesia Complication No 11/13/25 11:18 [email or web address] [email or web address] [email or web address] Anesthesia Complication Comment: Post-operative progress note Anesthesia: Postop Eval II Evaluation Mental status: Awake Pain Level: 0 nausea: No Vomiting: No
[2025-11-13 12:00] VITALS: BP 115/58
== END 2025-11-13 12:02 | disposition home or self-care (01) ==
LOC: EN 09:11 → AC 09:12
PROVIDERS: PCP Family Medicine; Referring Provider Family Medicine; Visit Provider Internal Medicine Gastroenterology
PROC: 0DJD8ZZ Inspection of Lower Intestinal Tract, Via Natural or Artificial Opening Endoscopic (ICD-10-PCS; CPT 45378; principal; 2025-11-13 10:25)
DX: K29.50 Unspecified chronic gastritis without bleeding (principal); K76.6 Portal hypertension; I85.00 Esophageal varices without bleeding; K74.60 Unspecified cirrhosis of liver; I11.0 Hypertensive heart disease with heart failure; I50.9 Heart failure, unspecified; E11.9 Type 2 diabetes mellitus without complications; E78.00 Pure hypercholesterolemia, unspecified; Z79.899 Other long term (current) drug therapy; K31.89 Other diseases of stomach and duodenum; K29.80 Duodenitis without bleeding; D50.0 Iron deficiency anemia secondary to blood loss (chronic); K21.9 Gastro-esophageal reflux disease without esophagitis; K57.30 Diverticulosis of large intestine without perforation or abscess without bleeding; K52.9 Noninfective gastroenteritis and colitis, unspecified; Z79.84 Long term (current) use of oral hypoglycemic drugs
CPT/HCPCS: 45380; 44361; 82962; 88305; 88342